=== PATIENT | male | born 1960 | race Caucasian/White ===

== ENCOUNTER → 2016-05-03 | Day surgery (SDC) | payer OTHER ==
[2016-04-30 10:04] VITALS: Ht 182.9 cm; Wt 180.0 kg
[~2016-05-03] VITALS: Ht 182.9 cm; Wt 180.0 kg
[~2016-05-03] MED LIST: ACET-1256 PO; ASPEC81 PO; ATOR-54 PO; DULO60CA44 PO; FERR1TAB13 PO; LACTCHW3 PO; LIDOCAINE HCL 2% 2 ML VIAL (20MG/ML) ONE; LVQ500 PO; METO25TA56 PO; MIDAZOLAM HCL 1 MG/ML 2ML VIAL ONE; MULT-506 PO; NITR1CAP32 PO; OMEP40CA41 PO; OXYC-106 PO; PROPOFOL IV EMULSION 10 MG/ML 20 ML VIAL IV ONE; SENN-61 PO; SODIUM CHLORIDE 0.9% 500ML 500 ML IV ONE; ZOLP5TAB PO
--- NOTE | 2016-05-03 15:39 | Endo History and Physical ---
History & Physical Date of Service: May 03, 2016. Chief Complaint: Beck's Referring Physician: Zenaida Flanagan PA-C History of Present Illness Beck esophagus Past Medical History Arthritis, Hypertension Past Surgical History Hx Cardiac Surgery: No Hx Internal Defibrillator: No Hx Pacemaker: No Hx Abdominal Surgery: Yes (ABDOMINAL SURGERY X2 ("TOOK SOME INTESTINES, STOMACH AND SPLEEN")) Hx of Implantable Prosthesis: No Hx Post-Op Nausea and Vomiting: No Hx Cancer Surgery: No Hx Thoracic Surgery: No Hx Orthopedic: Yes (OLSON'S RODS IN BACK, RT ARM FX REPAIR (HARDWARE)) Hx Urinary Tract Surgery: No Family History None Social History Smoking Status: Former Smoker Hx Substance Use: Yes (SEE MED REC) Hx Alcohol Use: Yes (RARELY) Allergies Coded Allergies: Cephalosporins (Verified Allergy, Intermediate, RASH, 04/30/16) Tolerated ceftriaxone during past admission Penicillins (Verified Allergy, Intermediate, RASH, 04/30/16) Ibuprofen (Verified Allergy, Unknown, CAUSED BI BLEED, 04/30/16) Current Medications Reported Home Medications Medications Dose Route/Sig Max Daily Dose Days Date Category Dose Instructions Percocet 10MG/325MG (Oxycodone/Acetaminophen) Tab 1 Tab PO Q6H PRN 04/30/16 Reported Prilosec (Omeprazole) 40 Mg Cap 40 Mg PO BID 04/30/16 Reported Senokot (Senna) 8.6 Mg Tab 1 Tab PO DIRECTED 04/30/16 Reported TAKES 2 PILLS ON ODD DAYS TAKES 3 PILLS ON EVEN DAYS Multivitamin (Multivitamins) Tab 1 Tab PO QAM 04/30/16 Reported Cymbalta (Duloxetine Hcl) 60 Mg Cap 60 Mg PO QAM 04/30/16 Reported Lopressor (Metoprolol Tartrate) 25 Mg Tab 12.5 Mg PO BID PRN 11/04/15 Reported IF SBP OVER 140 Lipitor (Atorvastatin) 20 Mg Tab 20 Mg PO HS 11/04/15 Reported Aspirin EC Low Dose (Aspirin) 81 Mg Ectab 81 Mg PO QAM 30 09/09/15 Rx Vital Signs Weight (Kilograms): 180 Height (Feet): 6 Height (Inches): 0 Date Time Temp Pulse Resp B/P Pulse Ox O2 Delivery O2 Flow Rate FiO2 05/03/16 14:26 37.2 85 20 147/90 98 Room Air Physical Exam AAO x3 Nl s`1s2 Lungs CTA Abd soft Nt/Nd + BS - CCE jorge alberto Assessment and Plan EGD with Bx
--- NOTE | 2016-05-03 16:18 | Anesthesiology Progress Note ---
Anesthesia Post Op Note Date & Time May 03, 2016 at 16:19 Vital Signs Pain Intensity: 6 Vital Signs Past 12 Hours Date Time Temp Pulse Resp B/P Pulse Ox O2 Delivery O2 Flow Rate FiO2 05/03/16 16:11 37.2 76 20 120/81 98 Room Air 05/03/16 14:26 37.2 85 20 147/90 98 Room Air Notes Mental Status: alert / awake / arousable, participated in evaluation Pt Amnestic to Procedure: Yes Nausea / Vomiting: adequately controlled Pain: adequately controlled Airway Patency, RR, SpO2: stable & adequate BP & HR: stable & adequate Hydration State: stable & adequate Anesthetic Complications: no major complications apparent
--- NOTE | 2016-05-03 16:21 | Discharge Instructions ---
Endoscopy Patient Instructions Date / Procedure(s) Performed May 03, 2016. EGD Allergy Information Coded Allergies: Cephalosporins (Verified Allergy, Intermediate, RASH, 04/30/16) Tolerated ceftriaxone during past admission Penicillins (Verified Allergy, Intermediate, RASH, 04/30/16) Ibuprofen (Verified Adverse Reaction, Intermediate, CAUSED BI BLEED, ) Discharge Date / Findings May 03, 2016. Beck's esophagus Medication Instructions Restart Stopped Medication(s): Reported Home Medications Medications Dose Route/Sig Max Daily Dose Days Date Category Dose Instructions Percocet 10MG/325MG (Oxycodone/Acetaminophen) Tab 1 Tab PO Q6H PRN 04/30/16 Reported Prilosec (Omeprazole) 40 Mg Cap 40 Mg PO BID 04/30/16 Reported Senokot (Senna) 8.6 Mg Tab 1 Tab PO DIRECTED 04/30/16 Reported TAKES 2 PILLS ON ODD DAYS TAKES 3 PILLS ON EVEN DAYS Multivitamin (Multivitamins) Tab 1 Tab PO QAM 04/30/16 Reported Cymbalta (Duloxetine Hcl) 60 Mg Cap 60 Mg PO QAM 04/30/16 Reported Lopressor (Metoprolol Tartrate) 25 Mg Tab 12.5 Mg PO BID PRN 11/04/15 Reported IF SBP OVER 140 Lipitor (Atorvastatin) 20 Mg Tab 20 Mg PO HS 11/04/15 Reported Aspirin EC Low Dose (Aspirin) 81 Mg Ectab 81 Mg PO QAM 30 09/09/15 Rx Reported Home Medications Medications Dose Route/Sig Max Daily Dose Days Date Category Dose Instructions Percocet 10MG/325MG (Oxycodone/Acetaminophen) Tab 1 Tab PO Q6H PRN 04/30/16 Reported Prilosec (Omeprazole) 40 Mg Cap 40 Mg PO BID 04/30/16 Reported Senokot (Senna) 8.6 Mg Tab 1 Tab PO DIRECTED 04/30/16 Reported TAKES 2 PILLS ON ODD DAYS TAKES 3 PILLS ON EVEN DAYS Multivitamin (Multivitamins) Tab 1 Tab PO QAM 04/30/16 Reported Cymbalta (Duloxetine Hcl) 60 Mg Cap 60 Mg PO QAM 04/30/16 Reported Lopressor (Metoprolol Tartrate) 25 Mg Tab 12.5 Mg PO BID PRN 11/04/15 Reported IF SBP OVER 140 Lipitor (Atorvastatin) 20 Mg Tab 20 Mg PO HS 11/04/15 Reported Aspirin EC Low Dose (Aspirin) 81 Mg Ectab 81 Mg PO QAM 30 09/09/15 Rx Provider Instructions Activity Restrictions - No exercising or heavy lifting for 24 hours. - Do not drink alcohol the day of the procedure. - Do not drive a car or operate machinery until the day after the procedure. - Do not make any important decisions or sign important papers in 24 hours after the procedure. Following Day: - Return to full activity which may include returning to work/school. Diet Start your diet with liquids and light foods (jello, soup, juice, toast). Then eat your usual diet if not nauseated. Treatment For Common After Affects For mild abdominal pain, bloating, or excessive gas: - Rest - Eat lightly - Lie on right side Follow-Up Information Follow-up with Zenaida Flanagan PA-C as scheduled Anesthesia Information What You Should Know You have had a procedure that required some medicine to reduce anxiety and discomfort. This treatment is called moderate sedation. After receiving the treatment, you may be sleepy, but you will be able to breathe on your own. The effects of the treatment may last for several hours. Follow these instructions along with Activity/Diet recommendations noted above: * Do NOT do anything where dizziness or clumsiness would be dangerous. * Rest quietly at home today, then you can be up and about tomorrow. * Have a responsible person stay with you the rest of today. * You may have had an I.V. today. If so, you may take the dressing off later today. Recommendations Call your doctor if: * Trouble breathing * Continuous vomiting for more than 24 hours * Temperature above 101 degrees * Severe abdominal pain or bloating * Pain not relieved by pain medicine ordered * There is increased drainage or redness from any incision * A large amount of rectal bleeding greater than 2-3 tablespoons. (If you had a polyp/s removed or have hemorrhoids, a small amount of blood - from the rectum is to be expected.) * You have any unanswered questions or concerns. IN THE EVENT OF A SERIOUS EMERGENCY, GO TO THE NEAREST EMERGENCY ROOM Your discharge instructions were prepared by provider Peter Castillo. Patient Instructions Signature Page Ulysses Guardado Patient (or Guardian) Signature/Date: I have read and understand the instructions given to me by my caregivers. Caregiver/RN/Doctor Signature/Date: The above-named patient and/or guardian has received patient instructions on this date. + Original Patient Signature Page (only) stays with chart. Please make copy for patient.
[2016-05-03 16:41] VITALS: BP 133/85; PULSE 68; O2SAT 94
--- NOTE | 2016-05-04 00:46 | GI REPORT ---
Procedure Date: 05/03/2016 3:21 PM Procedure: Upper GI endoscopy Indications: Beck's esophagus Medicines: Propofol per Anesthesia Complications: No immediate complications. Estimated blood loss: None. Estimated Blood Loss: Estimated blood loss: none. Procedure: Pre-Anesthesia Assessment: - Prior to the procedure, a History and Physical was performed, and patient medications and allergies were reviewed. The patient's tolerance of previous anesthesia was also reviewed. The risks and benefits of the procedure and the sedation options and risks were discussed with the patient. All questions were answered, and informed consent was obtained. Prior Anticoagulants: The patient has taken no previous anticoagulant or antiplatelet agents. ASA Grade Assessment: II - A patient with mild systemic disease. After reviewing the risks and benefits, the patient was deemed in satisfactory condition to undergo the procedure. After obtaining informed consent, the endoscope was passed under direct vision. Throughout the procedure, the patient's blood pressure, pulse, and oxygen saturations were monitored continuously. The scope was introduced through the mouth, and advanced to the second part of duodenum. The upper GI endoscopy was accomplished without difficulty. The patient tolerated the procedure well. Findings: LA Grade C (one or more mucosal breaks continuous between tops of 2 or more mucosal folds, less than 75% circumference) esophagitis with no bleeding was found 20 to 27 cm from the incisors. Biopsies were taken with a cold forceps for histology. Estimated blood loss was minimal. Verification of patient identification for the specimen was done by the physician and nutrition technician using the patient's name and medical record number. The esophagus and gastroesophageal junction were examined with white light. There were esophageal mucosal changes secondary to established long-segment Beck's disease. These changes involved the mucosa at the upper extent of the gastric folds (36 cm from the incisors) extending to the Z-line (28 cm from the incisors). Hiatal narrowing was identified at 40 cm. The maximum longitudinal extent of these esophageal mucosal changes was 8 cm in length. Mucosa was biopsied with a cold forceps for histology in 4 quadrants at intervals of 1 cm. Estimated blood loss was minimal. Verification of patient identification for the specimen was done by the physician and nutrition technician using the patient's name and medical record number. The entire examined stomach was normal. Evidence of a patent Billroth II gastrojejunostomy was found. The gastrojejunal anastomosis was characterized by healthy appearing mucosa. This was traversed. The examined jejunum was normal. The cardia and gastric fundus were normal on retroflexion. Impression: - LA Grade C reflux esophagitis. Biopsied. 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 Biopsied. - Normal stomach. - Patent Billroth II gastrojejunostomy was found, characterized by healthy appearing mucosa. - Normal examined jejunum. Recommendation: - Patient has a contact number available for emergencies. The signs and symptoms of potential delayed complications were discussed with the patient. Return to normal activities tomorrow. Written discharge instructions were provided to the patient. - Patient has a contact number available for emergencies. The signs and symptoms of potential delayed complications were discussed with the patient. Return to normal activities tomorrow. Written discharge instructions were provided to the patient. - Resume regular diet. - Continue present medications. - Await pathology results. - Repeat the upper endoscopy for surveillance based on pathology results. MD Peter Ford MD 05/03/2016 4:19:52 PM This report has been signed electronically. Note Initiated On: 05/03/2016 3:21 PM I attest to the content of the Intraoperative Record and orders documented therein, exceptions below
== END | disposition home or self-care (01) ==
LOC: C.GI 14:06
PROVIDERS: ATTEND Internal Medicine Gastroenterology
DX: K22.70 Barrett's esophagus without dysplasia (principal); K21.0 Gastro-esophageal reflux disease with esophagitis; I10 Essential (primary) hypertension; Z87.891 Personal history of nicotine dependence

== ENCOUNTER 2016-07-20 16:08 | Inpatient (IN) | payer OTHER ==
[~2016-07-20] VITALS: Ht 182.9 cm; Wt 71.2 kg
[~2016-07-20 16:08] MED LIST changes: -ACET-1256 PO; -FERR1TAB13 PO; -LACTCHW3 PO; -LIDOCAINE HCL 2% 2 ML VIAL (20MG/ML) ONE; -LVQ500 PO; -MIDAZOLAM HCL 1 MG/ML 2ML VIAL ONE; -NITR1CAP32 PO; -PROPOFOL IV EMULSION 10 MG/ML 20 ML VIAL IV ONE; -SODIUM CHLORIDE 0.9% 500ML 500 ML IV ONE; -ZOLP5TAB PO
[2016-07-20] MEDS ORDERED: SODIUM CHLORIDE 0.9% 1000ML 2,000 ML IV STA (16:34)
--- NOTE | 2016-07-20 16:34 | EMERGENCY ROOM VISIT NOTE ---
History Report prepared by Phoebe: Dorita Mcintyre Under the Supervision of: Dr. Taco Murphy M.D. First contact with patient: 16:27 Chief Complaint: WEAKNESS Stated Complaint: POSSIBLE SEPSIS Nursing Triage Summary: Patient was sent over from PCP. Per patient labs were drawn and platelet count was 1 million. Patient states, "I might be septic". Patient c/o generalized weakness. Denies CP, SOB, N/V/D. History of Present Illness The patient is a 56 year old male who presents to the Emergency Room with complaints of worsening weakness beginning today. The patient has been experiencing chronic weakness since last September but it has worsened today. He was at the [facility] clinic and had a platelet count of 1 million. He also has a urinary infection. He has a history of urinary infections and has been hospitalized before to be treated. He is concerned for sepsis. The patient is experiencing low blood pressure and lightheadedness when sitting up. He denies chest pain, shortness of breath, nausea, vomiting, diarrhea, or recent antibiotic use. The patient is a T7 paraplegic. Source of History: patient Onset: today Position: other (global) Quality: other (weakness) Timing: worsening Associated Symptoms: No SOB, No chest pain, No diarrhea, No nausea, No vomiting Review of Systems See HPI for pertinent positives & negatives. A total of 10 systems reviewed and were otherwise negative. Past Medical & Surgical Medical Problems: (1) Depression (2) Paraplegia following spinal cord injury (3) Sepsis Surgical Problems: (1) H/O splenectomy (2) H/O wisdom tooth extraction (3) History of appendectomy (4) History of cholecystectomy (5) History of partial colectomy (6) History of partial gastrectomy (7) History of skin surgery Family History Patient reports no known family medical history. Social History Smoking Status: Never Smoker Drug Use: marijuana Marital Status: Occupation Status: disabled Current/Historical Medications Scheduled Aspirin (Aspirin EC Low Dose), 81 MG PO QAM Atorvastatin (Lipitor), 20 MG PO HS Duloxetine Hcl (Cymbalta), 60 MG PO QAM Ferrous Sulfate (Kp Ferrous Sulfate), 1 TAB PO TID Multivitamin (Multivitamin), 1 TAB PO QAM Omeprazole (Prilosec), 40 MG PO BID Senna (Senokot), 1 TAB PO DIRECTED Zolpidem Tartrate (Ambien), 5-10 MG PO HS Scheduled PRN Oxycodone/Acetaminophen 10MG/325MG (Percocet 10MG/325MG), 1 TAB PO Q6H PRN for Pain Allergies Coded Allergies: Cephalosporins (Verified Allergy, Intermediate, RASH, 07/20/16) Tolerated ceftriaxone during past admission Penicillins (Verified Allergy, Intermediate, RASH, 07/20/16) Ibuprofen (Verified Adverse Reaction, Intermediate, CAUSED BI BLEED, ) Physical Exam Vital Signs Date Time Temp Pulse Resp B/P Pulse Ox O2 Delivery O2 Flow Rate FiO2 07/20/16 19:02 82 18 132/84 95 Room Air 07/20/16 16:09 36.3 87 16 87/61 95 Room Air Physical Exam GENERAL: Patient is well appearing, lightheaded with sitting up and in mild distress. HEENT: No acute trauma, normocephalic atraumatic, mucous membranes moist, no nasal congestion, no scleral icterus. NECK: No stridor, no adenopathy, no meningismus, trachea is midline. LUNGS: No dyspnea. Clear to auscultation and equal bilaterally. No wheeze, no rhonchi. HEART: Regular rate and rhythm. No murmurs, rubs, gallops appreciated. ABDOMEN: Soft, nontender, bowel sounds positive, no masses appreciated, no peritonitis. BACK: No midline tenderness, no CVA tenderness EXTREMITIES: Minimal leg waisting, both legs in boots, no cyanosis, no edema. NEUROLOGIC: Alert and oriented, no acute motor or sensory deficits, no focal weakness, cranial nerves grossly intact. No sensation from xiphoid down. SKIN: No rash, no jaundice, no diaphoresis. Medical Decision & Procedures ER Provider Diagnostic Interpretation: X ray results are stated below per my interpretation and the radiologist's interpretation. CHEST ONE VIEW PORTABLE CLINICAL HISTORY: fever cough COMPARISON STUDY: 09/07/2015 FINDINGS: Stable postoperative change including stabilization fausto placement of the thoracic spine. Lungs are clear. Diaphragms are smooth. There are no focal infiltrative changes. IMPRESSION: No acute process Electronically signed by: Ulysses Franklin M.D. 07/20/2016 4:54 PM Dictated Date/Time: 07/20/2016 4:53 PM Laboratory Results 07/20/16 17:15 Red Blood Count 4.09, Mean Corpuscular Volume 72.9, Mean Corpuscular Hemoglobin 21.5, Mean Corpuscular Hemoglobin Concent 29.5, Mean Platelet Volume 8.6, Neutrophils (%) (Auto) 75.9, Lymphocytes (%) (Auto) 15.9, Monocytes (%) (Auto) 6.8, Eosinophils (%) (Auto) 0.5, Basophils (%) (Auto) 0.6, Neutrophils # (Auto) 13.72, Lymphocytes # (Auto) 2.87, Monocytes # (Auto) 1.22, Eosinophils # (Auto) 0.09, Basophils # (Auto) 0.10 07/20/16 17:15 Test 07/20/16 17:09 07/20/16 17:15 07/20/16 18:40 Bedside Lactic Acid Venous 2.11 mmol/L (0.90-1.70) White Blood Count 18.05 K/uL (4.8-10.8) Red Blood Count 4.09 M/uL (4.7-6.1) Hemoglobin 8.8 g/dL (14.0-18.0) Hematocrit 29.8 % (42-52) Mean Corpuscular Volume 72.9 fL (80-100) Mean Corpuscular Hemoglobin 21.5 pg (25-34) Mean Corpuscular Hemoglobin Concent 29.5 g/dl (32-36) Platelet Count 1076 K/uL (130-400) Mean Platelet Volume 8.6 fL (7.4-10.4) Neutrophils (%) (Auto) 75.9 % Lymphocytes (%) (Auto) 15.9 % Monocytes (%) (Auto) 6.8 % Eosinophils (%) (Auto) 0.5 % Basophils (%) (Auto) 0.6 % Neutrophils # (Auto) 13.72 K/uL (1.4-6.5) Lymphocytes # (Auto) 2.87 K/uL (1.2-3.4) Monocytes # (Auto) 1.22 K/uL (0.11-0.59) Eosinophils # (Auto) 0.09 K/uL (0-0.5) Basophils # (Auto) 0.10 K/uL (0-0.2) RDW Standard Deviation 47.1 fL (36.4-46.3) RDW Coefficient of Variation 18.4 % (11.5-14.5) Immature Granulocyte % (Auto) 0.3 % Immature Granulocyte # (Auto) 0.05 K/uL (0.00-0.02) Nucleated RBC Absolute Count (auto) 0.07 K/uL (0-0) Nucleated Red Blood Cells % 0.4 % Polychromasia 1+ Target Cells 1+ Schistocytes 1+ Prothrombin Time 10.4 SECONDS (9.0-12.0) Prothromb Time International Ratio 1.0 (0.9-1.1) Anion Gap 11.0 mmol/L (3-11) Est Creatinine Clear Calc Drug Dose 91.9 ml/min Estimated GFR () 112.1 Estimated GFR (Non- 96.7 BUN/Creatinine Ratio 17.6 (10-20) Calcium Level 8.3 mg/dl (8.5-10.1) Magnesium Level 2.4 mg/dl (1.8-2.4) Total Bilirubin 0.2 mg/dl (0.2-1) Direct Bilirubin < 0.1 mg/dl (0-0.2) Aspartate Amino Transf (AST/SGOT) 11 U/L (15-37) Alanine Aminotransferase (ALT/SGPT) 13 U/L (12-78) Alkaline Phosphatase 124 U/L (45-117) Total Creatine Kinase 50 U/L (39-308) Creatine Kinase MB 0.9 ng/ml (0.5-3.6) Creatine Kinase MB Ratio 1.8 (0-3.0) Troponin I < 0.015 ng/ml (0-0.045) Total Protein 7.4 gm/dl (6.4-8.2) Albumin 2.9 gm/dl (3.4-5.0) Urine Color YELLOW Urine Appearance TURBID (CLEAR) Urine pH 8.0 (4.5-7.5) Urine Specific [place] 1.011 (1.000-1.030) Urine Protein 1+ (NEG) Urine Glucose (UA) NEG (NEG) Urine Ketones NEG (NEG) Urine Occult Blood 2+ (NEG) Urine Nitrite POS (NEG) Urine Bilirubin NEG (NEG) Urine Urobilinogen NEG (NEG) Urine Leukocyte Esterase LARGE (NEG) Urine WBC (Auto) >30 /hpf (0-5) Urine RBC (Auto) 5-10 /hpf (0-4) Urine Hyaline Casts (Auto) 10-30 /lpf (0-5) Urine Epithelial Cells (Auto) >30 /lpf (0-5) Urine Bacteria (Auto) 4+ (NEG) Urine Crystals AMORPHOUS SEDIMENT (NONE Urine Yeast (Auto) (NONE PRSENT) Laboratory results as reviewed by me. Medications Administered Medications (Trade) Dose Ordered Sig/Kinsey Route Start Time Stop Time Status Last Admin Dose Admin Sodium Chloride 2,000 ml @ 999 mls/hr Q2H1M STAT IV 07/20/16 16:34 07/20/16 18:34 DC 07/20/16 17:22 999 MLS/HR Aztreonam 2000 mg/ Dextrose 110 ml @ 100 mls/hr NOW STAT IV 07/20/16 16:47 07/20/16 17:52 DC 07/20/16 17:22 100 MLS/HR Daptomycin/Sodium Chloride (Cubicin IV/Nss 50ml) 58 ml @ 100 mls/hr NOW STAT IV 07/20/16 16:47 07/20/16 17:21 DC 07/20/16 17:22 100 MLS/HR ECG Indication: weakness Rate (beats per minute): 70 Rhythm: normal sinus Findings: ST depression (Lateral nonspecific), other (QTC 468) ED Course 1630: The patient was evaluated in room C6. A complete history and physical exam was performed. 1634: Sodium Chloride 2,000 ml @ 999 mls/hr IV. 1647: Daptomycin 400 mg/ Sodium Chloride 50 ml @ 100 mls/hr IV, Aztreonam 2,000 mg/ Dextrose 110 ml @ 100 mls/hr IV. 1652: I re-explained to nurse that patient needs sepsis work up immediately. She will go evaluate the patient. 1656: I discussed the treatment plan with the patient and he is comfortable with it. 1812: Discussed the patient's case with Dr. Leana RODRIGUEZ. The patient will be evaluated for further treatment and disposition. 1814: Upon reevaluation, the patient is hemodynamically stable. Discussed results and treatment plan with the patient. He verbalized understanding and agreement with the treatment plan. The patient will be evaluated for further management. Medical Decision Differential: Sepsis, Infectious (UTI/Pneumonia/Meningitis/etc), Metabolic/ Electrolyte Abnormality, Cardiac, Hepatic, Endocrine, Toxicologic, Neurologic, amongst other pathologies entertained. 56 yr old male arrives with complaint of fatigue. History of paraplegia, self cathing, hep c, asplenia. Notes labs outpatient with ecoli in urine. PCP office called in to note elevated wbc/plts. Patient arrives hypotensive and significant weakness on sitting up. Immediately required 2 IVs, blood cultures , lactic acid, and 30ml/kg fluids. Broad spectrum abx ordered. Patient feeling vastly improved with fluids. Labs consistent with sepsis. He is not in septic shock as responded quickly to IV fluids. He clearly will need to come in for further evaluation. Has chronic elevated plts which are further exacerbated by his sepsis. Consults Time Called: 1809 Consulting Physician: Dr. Leana GARCIA Returned Call: [phone] Discussed the patient's case. The patient will be evaluated for further treatment and disposition. Impression Primary Impression: Sepsis Additional Impressions: UTI (urinary tract infection) Hypotension Critical Care I have personally spent greater than 45 minutes of critical care time in the direct management of this patient. This was a life/limb threatening event. This includes time spent evaluating patient, direct bedside care, chart review, placing orders, interpretation of diagnostic studies, discussion with consultants, patient, and family members, as well as other required patient management activities. This 45 minutes is in excess of all separately billable procedures. Scribe Attestation The scribe's documentation has been prepared under my direction and personally reviewed by me in its entirety. I confirm that the note above accurately reflects all work, treatment, procedures, and medical decision making performed by me. Departure Information Dispostion Being Evaluated By Hospitalist Referrals Zenaida Flanagan PA-C (PCP) Problem Qualifiers
[2016-07-20] MEDS ORDERED: DAPTOmycin IV 400 MG in SODIUM CHLORIDE 0.9% 50ML 50 ML IV STA (16:47)
[2016-07-20] MEDS ORDERED: AZTREONAM IV 2,000 MG in DEXTROSE 5% 100ML 100 ML IV STA (16:47)
--- NOTE | 2016-07-20 16:55 | DIAGNOSTIC IMAGING REPORT ---
CHEST ONE VIEW PORTABLE CLINICAL HISTORY: fever cough COMPARISON STUDY: 09/07/2015 FINDINGS: Stable postoperative change including stabilization fausto placement of the thoracic spine. Lungs are clear. Diaphragms are smooth. There are no focal infiltrative changes. IMPRESSION: No acute process Electronically signed by: Ulysses Franklin M.D. 07/20/2016 4:54 PM Dictated Date/Time: 07/20/2016 4:53 PM
[2016-07-20 17:43] LABS: PROTHROMBIN TIME (PATIENT) 10.4 SECONDS (9.0-12.0)
[2016-07-20 17:50] LABS: ALT/SGPT 13 U/L (12-78); AST/SGOT 11 U/L (15-37); BLOOD UREA NITROGEN 15 mg/dl (7-18); BUN/CREATININE RATIO 17.6 (10-20); CALCIUM 8.3 mg/dl (8.5-10.1); CARBON DIOXIDE 24 mmol/L (21-32); CHLORIDE 102 mmol/L (98-107); CREATININE 0.88 mg/dl (0.60-1.40); GLUCOSE 81 mg/dl (70-99); MAGNESIUM 2.4 mg/dl (1.8-2.4); POTASSIUM 3.8 mmol/L (3.5-5.1); SODIUM 137 mmol/L (136-145)
[2016-07-20] MEDS ORDERED: ZOLP5TAB PO (17:50)
[2016-07-20] MEDS ORDERED: FERR1TAB13 PO (17:50)
[2016-07-20 17:51] LABS: BASO % 0.6 %; COMPLETE YES; EOS % 0.5 %; HEMATOCRIT 29.8 % (42-52); IG% 0.3 %; LYMPH % 15.9 %; LYMPH ABS # 2.87 K/uL (1.2-3.4); MEAN CELL VOLUME 72.9 fL (80-100); MEAN CORPUSCULAR HEMOGLOBIN 21.5 pg (25-34); MEAN CORPUSCULAR HGB CONC 29.5 g/dl (32-36); MEAN PLATELET VOLUME 8.6 fL (7.4-10.4); MONO % 6.8 %; NEUT % 75.9 %; PLATELET COUNT 1076 K/uL (130-400); POLYCHROMASIA 1+; RED BLOOD COUNT 4.09 M/uL (4.7-6.1); SCHISTOCYTES 1+; TARGET CELLS 1+; WHITE BLOOD COUNT 18.05 K/uL (4.8-10.8)
[2016-07-20 17:54] LABS: ALKALINE PHOSPHATASE 124 U/L (45-117); CKMB/CK RATIO 1.8 (0-3.0)
[2016-07-20 19:15] LABS: URINE APPEARANCE TURBID (CLEAR); URINE BILIRUBIN NEG (NEG); URINE COLOR YELLOW; URINE EPITHELIAL CELL AUTO >30 /lpf (0-5); URINE NITRITE POS (NEG); URINE SPECIFIC GRAVITY 1.011 (1.000-1.030); UROBILINOGEN NEG (NEG); ZZURINE CULT IF INDIC CATH YES
[2016-07-20] MEDS ORDERED: MAGNESIUM HYDROXIDE SUSP 30 ML UDC PO PRN (19:15)
[2016-07-20] MEDS ORDERED: POLYETHYLENE (MIRALAX) 17 GM PACK PO PRN (19:15)
[2016-07-20] MEDS ORDERED: ONDANSETRON INJ 2 MG/ML 2 ML VIAL IV PRN (19:15)
[2016-07-20] MEDS ORDERED: ALUMINUM/MAGNESIUM/SIMETH (MAALOX MAX) 30 ML UDC PO PRN (19:15)
[2016-07-20] MEDS ORDERED: AZTREONAM CONSULT ACTIVE PRN ×2 (19:30)
[2016-07-20] MEDS ORDERED: DAPTOMYCIN CONSULT ACTIVE PRN ×2 (19:30)
[2016-07-20 19:31] LABS: MANUAL MICROSCOPIC REQUIRED? NO; REVIEW REQ? YES
[2016-07-20 19:32] LABS: SULFASALICYLIC ACID POS (NEG)
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
[2016-07-20] MEDS ORDERED: SODIUM CHLORIDE 0.9% 1000ML 1,000 ML IV SCH (20:00)
[2016-07-20 20:11] VITALS: BP 151/89; PULSE 87; TEMP 37.1; O2SAT 98; Ht 182.9 cm; Wt 71.2 kg
[2016-07-20] MEDS: OXYCODONE/ACETAMINOPHEN 10/325MG TAB PO PRN (20:38)
[2016-07-20] MEDS: HEPARIN SOD 5000 UNIT/0.5 ML CARP SQ SCH (22:06)
[2016-07-20] MEDS: ZOLPIDEM TARTRATE 5 MG TAB PO SCH (22:08)
[2016-07-20] MEDS: PANTOprazole SOD 40 MG TAB PO SCH (22:08)
[2016-07-20] MEDS: ATORVASTATIN 20 MG TAB PO SCH (22:08)
[2016-07-20 23:40] VITALS: BP 124/69; PULSE 87; TEMP 37.3; O2SAT 95
[2016-07-21] VITALS (12 sets, daily range): BP systolic 106–189; BP diastolic 70–112; PULSE 73–84; TEMP 36.4–37.5; O2SAT 94–98
[2016-07-21] MEDS: AZTREONAM IV 2,000 MG in DEXTROSE 5% 100ML 100 ML IV SCH ×3 (01:42→17:21)
[2016-07-21] MEDS: OXYCODONE/ACETAMINOPHEN 10/325MG TAB PO PRN ×3 (01:48→19:20)
[2016-07-21] MEDS: ACETAMINOPHEN 325 MG TAB PO PRN ×2 (05:03→10:57)
[2016-07-21] MEDS: HEPARIN SOD 5000 UNIT/0.5 ML CARP SQ SCH ×3 (05:05→21:13)
[2016-07-21 06:54] LABS: HEMATOCRIT 25.9 % (42-52); MEAN CELL VOLUME 74.9 fL (80-100); MEAN CORPUSCULAR HEMOGLOBIN 21.7 pg (25-34); MEAN PLATELET VOLUME 8.7 fL (7.4-10.4); PLATELET COUNT 915 K/uL (130-400); RED BLOOD COUNT 3.46 M/uL (4.7-6.1); WHITE BLOOD COUNT 13.94 K/uL (4.8-10.8)
[2016-07-21 07:24] LABS: BUN/CREATININE RATIO 17.8 (10-20); CALCIUM 7.6 mg/dl (8.5-10.1); CREATININE 0.62 mg/dl (0.60-1.40); MAGNESIUM 2.4 mg/dl (1.8-2.4); POTASSIUM 3.7 mmol/L (3.5-5.1)
[2016-07-21] MEDS: MULTIVITAMIN TAB PO SCH (07:28)
[2016-07-21] MEDS: ASPIRIN 81 MG ECTAB PO SCH (07:28)
[2016-07-21] MEDS: FERROUS SULFATE 325 MG TAB PO SCH ×3 (07:28→16:17)
[2016-07-21] MEDS: PANTOprazole SOD 40 MG TAB PO SCH ×2 (07:28→21:16)
[2016-07-21] MEDS: DULOXETINE HCL 60 MG CAP PO SCH (07:28)
[2016-07-21] MEDS: SENNA 8.6 MG TAB PO SCH (07:28)
[2016-07-21] MEDS ORDERED: PNEUMOCOCCAL POLYSACCHARIDES 25 MCG/0.5 ML VIAL/SYR IM. ONE (08:00)
[2016-07-21] MEDS ORDERED: PNEUMOCOCCAL ADMINISTRATION CHARGE ONE (08:00)
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
[2016-07-21 15:25] LABS: FERRITIN 40.4 ng/ml (8.0-388.0)
[2016-07-21] MEDS ORDERED: DAPTOmycin IV 400 MG in SODIUM CHLORIDE 0.9% 50ML 50 ML IV SCH (16:00)
--- NOTE | 2016-07-21 20:59 | Medical Consult ---
Consultation Date of Consultation: July 21, 2016. Attending Physician: Nilo Dueñas MD Reason for Consultation: Restricted antibiotic use History of Present Illness 56-year-old male with paraplegia, aplenia, with chronic use of condom catheter with history of urinary tract infections, presented to his primary care physician with several days of weakness and fatigue along with Dysuria, and was felt to have a urinary tract infection was sent to the emergency room for further management. He was found to be hypotensive with leukocytosis and elevated lactic acid consistent with early sepsis. He was started on daptomycin and aztreonam because of penicillin allergy, and now urine cultures growing gram-negative bacilli. Blood cultures have been negative to date. white count has improved since admission from 98677+ to 13,000+. he denies any significant flank pain or abdominal pain. Past Medical/Surgical History Medical Problems: (1) Acute kidney injury Status: Acute (2) Hypotension Status: Acute (3) Leukocytosis Status: Acute (4) Sepsis Status: Acute (5) Urinary tract infection Status: Acute (6) UTI (urinary tract infection) Status: Acute Medical Problems: (1) Depression (2) Paraplegia following spinal cord injury (3) Sepsis Surgical Problems: (1) H/O splenectomy (2) H/O wisdom tooth extraction (3) History of appendectomy (4) History of cholecystectomy (5) History of partial colectomy (6) History of partial gastrectomy (7) History of skin surgery Family History Patient reports no known family medical history. Social History Smoking Status: Former Smoker Drug Use: marijuana Marital Status: Occupation Status: disabled Allergies Coded Allergies: Cephalosporins (Verified Allergy, Intermediate, RASH, 07/20/16) Tolerated ceftriaxone during past admission Penicillins (Verified Allergy, Intermediate, RASH, 07/20/16) Ibuprofen (Verified Adverse Reaction, Intermediate, CAUSED BI BLEED, ) Current Inpatient Medications Current Inpatient Medications Medications (Trade) Dose Ordered Sig/Kinsey Route Start Time Stop Time Status Last Admin Dose Admin Daptomycin 400 mg/ Sodium Chloride 58 ml @ 100 mls/hr DAILY@1600 IV 07/21/16 16:00 07/31/16 15:59 07/21/16 16:17 100 MLS/HR Aztreonam/Dextrose (Azactam IV/D5 100ml) 110 ml @ 100 mls/hr Q8H IV 07/21/16 02:00 07/31/16 01:59 07/21/16 17:21 100 MLS/HR Aspirin (Ecotrin Tab) 81 mg QAM PO 07/21/16 09:00 08/20/16 08:59 07/21/16 07:28 81 MG Atorvastatin Calcium (Lipitor Tab) 20 mg HS PO 07/20/16 21:00 08/19/16 20:59 07/20/16 22:08 20 MG Duloxetine HCl (Cymbalta Cap) 60 mg QAM PO 07/21/16 09:00 08/20/16 08:59 07/21/16 07:28 60 MG Multivitamins (Multivitamin Tab) 1 tab QAM PO 07/21/16 09:00 08/20/16 08:59 07/21/16 07:28 1 TAB Oxycodone/ Acetaminophen (Percocet 10-325MG Tab) 1 tab Q6H PRN PO 07/20/16 19:15 08/03/16 19:14 07/21/16 19:20 1 TAB Senna (Senokot Tab) 8.6 mg DAILY PO 07/21/16 09:00 08/20/16 08:59 07/21/16 07:28 8.6 MG Zolpidem Tartrate (Ambien Tab) 5 mg HS PO 07/20/16 21:00 08/19/16 20:59 07/20/16 22:08 5 MG Ferrous Sulfate (Feosol Tab) 325 mg TIDM PO 07/21/16 07:30 08/20/16 07:59 07/21/16 16:17 325 MG Pantoprazole Sodium (Protonix Tab) 40 mg BID PO 07/20/16 21:00 08/19/16 20:59 07/21/16 07:28 40 MG Heparin Sodium (Porcine) (Heparin Sq 5000 Unit/0.5ml) 5,000 unit Q8 SQ 07/20/16 22:00 08/19/16 21:59 07/21/16 13:49 5,000 UNIT Acetaminophen (Tylenol Tab) 650 mg Q4H PRN PO 07/20/16 19:15 08/19/16 19:14 07/21/16 10:57 650 MG Al Hydrox/Mg Hydrox/Simethicone (Maalox Max Susp) 15 ml Q4H PRN PO 07/20/16 19:15 08/19/16 19:14 Magnesium Hydroxide (Milk Of Magnesia Susp) 30 ml Q12H PRN PO 07/20/16 19:15 08/19/16 19:14 Ondansetron HCl (Zofran Inj) 4 mg Q6H PRN IV 07/20/16 19:15 08/19/16 19:14 Polyethylene (Miralax Powder Packet) 17 gm DAILY PRN PO 07/20/16 19:15 08/19/16 19:14 Daptomycin (Consult) 1 ea UD PRN N/A 07/20/16 19:30 08/19/16 19:29 Aztreonam (Consult) 1 ea UD PRN N/A 07/20/16 19:30 08/19/16 19:29 Review of Systems Constitutional: + fatigue, + weakness, No fever Eyes: No problem reported ENT: No problem reported Respiratory: No problem reported Cardiovascular: No problem reported Abdomen: No problem reported Musculoskeletal: No problem reported Genitourinary - Male: + dysuria Neurologic: No problem reported Psychiatric: No problem reported Endocrine: No problem reported Hematologic / Lymphatic: No problem reported Integumentary: No problem reported Allergic / Immunologic: No problem reported Physical Exam Date Time Temp Pulse Resp B/P Pulse Ox O2 Delivery O2 Flow Rate FiO2 07/21/16 20:04 Room Air 07/21/16 19:11 37.5 82 18 147/88 95 Room Air 07/21/16 17:20 160/92 07/21/16 16:40 189/100 07/21/16 16:39 172/112 07/21/16 16:01 36.8 79 16 130/91 94 Room Air 07/21/16 16:00 98 Room Air 07/21/16 12:00 96 Room Air 07/21/16 11:40 36.4 78 18 121/81 95 Room Air 07/21/16 08:00 96 Room Air 07/21/16 07:52 36.4 73 18 113/70 96 Room Air 07/21/16 04:31 36.7 84 22 106/81 97 Room Air 07/21/16 04:00 Room Air 07/21/16 00:01 Room Air 07/20/16 23:40 37.3 87 22 124/69 95 Room Air General Appearance: WD/WN, no apparent distress Head: normocephalic, atraumatic Eyes: normal inspection, EOMI, sclerae normal ENT: normal ENT inspection, pharynx normal Neck: supple, no adenopathy, thyroid normal, trachea midline Respiratory/Chest: chest non-tender, lungs clear, normal breath sounds, no respiratory distress Cardiovascular: regular rate, rhythm, no gallop, no murmur Abdomen/GI: normal bowel sounds, non tender, soft, no organomegaly Genitourinary - Male: + pertinent finding ( Condom catheter) Back: normal inspection, no CVA tenderness Extremities/Musculoskelatal: no calf tenderness, non-tender Neurologic/Psych: alert, oriented x 3, + pertinent finding ( paraplegic) Skin: normal color, warm/dry, no rash Lymphatic: no adenopathy Laboratory Results RUN DATE: 07/21/16 [facility] LAB PAGE 1 RUN TIME: 1259 Specimen Inquiry PATIENT: JANICE BARILLAS LOC: [facility] # : [id number] AGE/SX: 56/M ROOM: 06 REG : 07/20/[address]: Nilo Dueñas MD : 1960 BED: 1 DIS : STATUS: ADM IN TLOC: SPEC #: [id number] FAHAD: 07/20/16 STATUS: RES REQ #: [id number] RECD: 07/20/[address] [facility] [address]: Taco Murphy M.D. SOURCE: URINE CATH ENTR: 07/20/16 [facility] DR: Zenaida Flanagan PA-C SPDESC: Nilo Dueñas MD ORDERED: CULTURE UR CATH Procedure Result Verified Site URINE CULTURE Preliminary 07/21/16 Organism 1 GRAM NEGATIVE BACILLI COLONY COUNT >100,000 CFU/ml SENS SENSITIVITY TO FOLLOW Organism 2 GRAM NEGATIVE BACILLI#2 COLONY COUNT >100,000 CFU/ml SENS SENSITIVITY TO FOLLOW Last 24 Hours Test 07/21/16 00:55 07/21/16 06:06 07/21/16 14:45 07/21/16 14:48 Lactic Acid Level 0.9 mmol/L White Blood Count 13.94 K/uL Red Blood Count 3.46 M/uL Hemoglobin 7.5 g/dL Hematocrit 25.9 % Mean Corpuscular Volume 74.9 fL Mean Corpuscular Hemoglobin 21.7 pg Mean Corpuscular Hemoglobin Concent 29.0 g/dl RDW Standard Deviation 48.9 fL RDW Coefficient of Variation 19.0 % Platelet Count 915 K/uL Mean Platelet Volume 8.7 fL Nucleated RBC Absolute Count (auto) 0.02 K/uL Nucleated Red Blood Cells % 0.1 % Sodium Level 142 mmol/L Potassium Level 3.7 mmol/L Chloride Level 111 mmol/L Carbon Dioxide Level 24 mmol/L Anion Gap 7.0 mmol/L Blood Urea Nitrogen 11 mg/dl Creatinine 0.62 mg/dl Est Creatinine Clear Calc Drug Dose 141.1 ml/min Estimated GFR () 129.4 Estimated GFR (Non- 111.7 BUN/Creatinine Ratio 17.8 Random Glucose 92 mg/dl Calcium Level 7.6 mg/dl Magnesium Level 2.4 mg/dl Vitamin B12 Level 808 pg/mL Folate 21.36 ng/mL Absolute Reticulocyte Count 0.12 10^6/uL Percent Reticulocyte Count 3.2 % Iron Level 48 mcg/dl Total Iron Binding Capacity 305 mcg/dl Transferrin 232 mg/dl Transferrin % Saturation 15 % Ferritin 40.4 ng/ml Test 07/21/16 20:02 Hemoglobin 8.1 g/dL Patient Name: JANICE BARILLAS Unit Number: [id number] Dictated: 07/20/161652 Transcribed: 07/20/161652 MS Printed Date/Time: [~ rep prt dt]/[~ rep prt tm] [~ rep ct labl] - [~ rep ct ivnm] [facility] [place] [address] Dictated: 07/20/161652 Transcribed: 07/20/161652 MS Printed Date/Time: [~ rep prt dt]/[~ rep prt tm] [~ rep ct labl] - [~ rep ct ivnm] [~ rep ct add3]] CHEST ONE VIEW PORTABLE CLINICAL HISTORY: fever cough COMPARISON STUDY: 09/07/2015 FINDINGS: Stable postoperative change including stabilization fausto placement of the thoracic spine. Lungs are clear. Diaphragms are smooth. There are no focal infiltrative changes. IMPRESSION: No acute process Electronically signed by: Janice Franklin M.D. 07/20/2016 4:54 PM Dictated Date/Time: 07/20/2016 4:53 PM The status of this report is Signed. Draft = Not yet reviewed or approved by Radiologist. Signed = Reviewed and approved by Radiologist. <AttendingPhy></AttendingPhy> <FamilyPhy>Zenaida Flanagan PA-C</FamilyPhy > <PrimaryPhy>Zenaida Flanagan PA-C</PrimaryPhy> <UnitNumber>[id number]</ UnitNumber> <VisitNumber>[id number]</VisitNumber> <PatientName>JANICE BARILLAS< /PatientName> <DateOfBirth>1960</DateOfBirth> <Location>C.EDC</Location> < ServiceDate>07/20/16</ServiceDate> <MNE>ESINDI</MNE> <OrderingPhy>Taco Murphy M.D.</OrderingPhy> <OrderingPhyMNE>f rep ord dr vazquez</OrderingPhyMNE> < DictatingPhyMNE>f rep dict dr vazquez</DictatingPhyMNE> <CCListMNE>f rep ct mne</ CCListMNE> <AdmittingPhyMNE>f pt admit dr vazquez</AdmittingPhyMNE> <AttendingPhyMNE >f pt attend dr vazquez</AttendingPhyMNE> <ConsultingPhyMNE>f pt consult dr vazquez</ConsultingPhyMNE> <FamilyPhyMNE>f pt fam dr vazquez</FamilyPhyMNE> <OtherPhyMNE>f pt other dr vazquez</OtherPhyMNE> < PrimaryPhyMNE>f pt prim care dr vazquez</PrimaryPhyMNE> <ReferringPhyMNE>f pt referring dr vazquez</ReferringPhyMNE> Assessment & Plan 56-year-old paraplegic male with what appears to be a gram-negative urinary tract infection. Given penicillin allergy, aztreonam appropriate pending final sensitivities. Likely daptomycin can be discontinued in the next 24-48 hours if cultures show no gram positive organisms. Will follow.
[2016-07-21] MEDS: ATORVASTATIN 20 MG TAB PO SCH (21:16)
[2016-07-21] MEDS: ZOLPIDEM TARTRATE 5 MG TAB PO SCH (21:16)
[2016-07-22] MEDS: AZTREONAM IV 2,000 MG in DEXTROSE 5% 100ML 100 ML IV SCH ×3 (02:06→18:12)
[2016-07-22 04:03] VITALS: BP 133/91; PULSE 87; TEMP 36.9; O2SAT 97
[2016-07-22] MEDS: HEPARIN SOD 5000 UNIT/0.5 ML CARP SQ SCH ×3 (06:07→21:21)
[2016-07-22 07:46] LABS: HEMATOCRIT 30.4 % (42-52); MEAN CELL VOLUME 74.7 fL (80-100); MEAN CORPUSCULAR HEMOGLOBIN 21.4 pg (25-34); MEAN CORPUSCULAR HGB CONC 28.6 g/dl (32-36); MEAN PLATELET VOLUME 8.6 fL (7.4-10.4); PLATELET COUNT 1004 K/uL (130-400); RED BLOOD COUNT 4.07 M/uL (4.7-6.1); WHITE BLOOD COUNT 11.71 K/uL (4.8-10.8)
[2016-07-22 08:06] LABS: BUN/CREATININE RATIO 17.2 (10-20); CALCIUM 8.4 mg/dl (8.5-10.1); CREATININE 0.53 mg/dl (0.60-1.40); MAGNESIUM 2.5 mg/dl (1.8-2.4); POTASSIUM 3.7 mmol/L (3.5-5.1)
[2016-07-22 08:08] LABS: ALB/GLOB RATIO 0.6 (0.9-2); BASO ABS # 0.23 K/uL (0-0.2); COMPLETE YES; HYPOCHROMIA PRESENT; IG% 0.3 %; LYMPH % 20.7 %; LYMPH ABS # 2.42 K/uL (1.2-3.4); MICROCYTOSIS PRESENT; MONO % 10.4 %; NEUT % 64.6 %; PHOSPHORUS 2.4 mg/dl (2.5-4.9); PLT ESTIMATE INCREASED; POLYCHROMASIA 1+; TARGET CELLS 1+
[2016-07-22 08:09] VITALS: BP 143/98; PULSE 91; TEMP 36.4; O2SAT 97
[2016-07-22] MEDS: MULTIVITAMIN TAB PO SCH (09:00)
[2016-07-22] MEDS: DULOXETINE HCL 60 MG CAP PO SCH (09:00)
[2016-07-22] MEDS: PANTOprazole SOD 40 MG TAB PO SCH ×2 (09:01→21:16)
[2016-07-22] MEDS: SENNA 8.6 MG TAB PO SCH (09:01)
[2016-07-22] MEDS: ASPIRIN 81 MG ECTAB PO SCH (09:01)
[2016-07-22] MEDS: FERROUS SULFATE 325 MG TAB PO SCH ×3 (09:01→18:13)
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
[2016-07-22 12:24] VITALS: BP 139/91; PULSE 91; TEMP 37; O2SAT 97
[2016-07-22] MEDS: OXYCODONE/ACETAMINOPHEN 10/325MG TAB PO PRN ×2 (12:33→21:16)
[2016-07-22] MEDS: LACTOBACILLUS ACIDOPHILUS 1 GM PACK PO SCH ×2 (12:33→18:13)
[2016-07-22 13:46] VITALS: BP 139/91; PULSE 91; TEMP 37; O2SAT 97
[2016-07-22 14:21] VITALS: BP 128/90; PULSE 101; TEMP 36.7; O2SAT 96
[2016-07-22 15:25] VITALS: BP 125/83; PULSE 92; TEMP 36.8; O2SAT 92
[2016-07-22] MEDS ORDERED: BISACODYL 10 MG SUPP PR PRN (16:30)
[2016-07-22] MEDS: ZOLPIDEM TARTRATE 5 MG TAB PO SCH (21:15)
[2016-07-22] MEDS: ATORVASTATIN 20 MG TAB PO SCH (21:16)
[2016-07-23 00:23] VITALS: BP 151/99; PULSE 83; TEMP 36.9; O2SAT 95
[2016-07-23] MEDS: AZTREONAM IV 2,000 MG in DEXTROSE 5% 100ML 100 ML IV SCH (02:19)
[2016-07-23] MEDS: HEPARIN SOD 5000 UNIT/0.5 ML CARP SQ SCH ×3 (05:43→21:05)
[2016-07-23 06:12] LABS: BASO % 1.4 %; BASO ABS # 0.19 K/uL (0-0.2); EOS % 2.5 %; IG% 0.3 %; LYMPH % 26.1 %; LYMPH ABS # 3.51 K/uL (1.2-3.4); MEAN CELL VOLUME 75.6 fL (80-100); MEAN CORPUSCULAR HEMOGLOBIN 22.7 pg (25-34); MEAN PLATELET VOLUME 8.5 fL (7.4-10.4); NEUT % 59.7 %; PLATELET COUNT 861 K/uL (130-400); RED BLOOD COUNT 3.97 M/uL (4.7-6.1); WHITE BLOOD COUNT 13.46 K/uL (4.8-10.8)
[2016-07-23 06:44] LABS: BUN/CREATININE RATIO 14.8 (10-20); CALCIUM 8.5 mg/dl (8.5-10.1); CREATININE 0.65 mg/dl (0.60-1.40); MAGNESIUM 2.3 mg/dl (1.8-2.4); POTASSIUM 3.7 mmol/L (3.5-5.1)
[2016-07-23 06:47] LABS: ALB/GLOB RATIO 0.6 (0.9-2); PHOSPHORUS 2.9 mg/dl (2.5-4.9)
[2016-07-23 07:07] LABS: ANISOCYTOSIS PRESENT; COMPLETE YES; HYPOCHROMIA PRESENT; POLYCHROMASIA 1+
[2016-07-23 07:46] VITALS: BP_SYST 153; BP_SYST 173; BP_DIAS 101; BP_DIAS 90; PULSE 69; TEMP 36.8; O2SAT 97
[2016-07-23] MEDS: MULTIVITAMIN TAB PO SCH (08:13)
[2016-07-23] MEDS: PANTOprazole SOD 40 MG TAB PO SCH ×2 (08:13→21:01)
[2016-07-23] MEDS: DULOXETINE HCL 60 MG CAP PO SCH (08:13)
[2016-07-23] MEDS: LACTOBACILLUS ACIDOPHILUS 1 GM PACK PO SCH ×3 (08:13→16:40)
[2016-07-23] MEDS: FERROUS SULFATE 325 MG TAB PO SCH ×3 (08:13→16:40)
[2016-07-23] MEDS: ASPIRIN 81 MG ECTAB PO SCH (08:13)
[2016-07-23] MEDS: SENNA 8.6 MG TAB PO SCH (08:13)
[2016-07-23] MEDS: ASCORBIC ACID 500 MG TAB PO SCH (08:14)
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
[2016-07-23] MEDS: LEVOFLOXACIN 500 MG TAB PO SCH (11:16)
[2016-07-23] MEDS: OXYCODONE/ACETAMINOPHEN 10/325MG TAB PO PRN ×2 (11:17→23:42)
[2016-07-23 15:42] VITALS: BP 147/95; PULSE 91; TEMP 36.8; O2SAT 97
[2016-07-23] MEDS: ACETAMINOPHEN 325 MG TAB PO PRN (16:41)
[2016-07-23] MEDS: ZOLPIDEM TARTRATE 5 MG TAB PO SCH (21:00)
[2016-07-23] MEDS: ATORVASTATIN 20 MG TAB PO SCH (21:01)
[2016-07-24 00:21] VITALS: BP 139/91; PULSE 82; TEMP 36.7; O2SAT 95
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
[2016-07-24] MEDS: HEPARIN SOD 5000 UNIT/0.5 ML CARP SQ SCH (05:44)
[2016-07-24 07:34] LABS: CREATININE 0.54 mg/dl (0.60-1.40)
[2016-07-24 07:38] LABS: HEMATOCRIT 29.6 % (42-52); MEAN CELL VOLUME 75.7 fL (80-100); MEAN CORPUSCULAR HEMOGLOBIN 21.2 pg (25-34); MEAN PLATELET VOLUME 8.3 fL (7.4-10.4); PLATELET COUNT 777 K/uL (130-400); RED BLOOD COUNT 3.91 M/uL (4.7-6.1); WHITE BLOOD COUNT 12.23 K/uL (4.8-10.8)
[2016-07-24 08:07] LABS: BASO % 2.2 %; BASO ABS # 0.27 K/uL (0-0.2); COMPLETE YES; EOS % 4.1 %; IG% 0.2 %; LYMPH % 38.3 %; LYMPH ABS # 4.69 K/uL (1.2-3.4); MONO % 10.4 %; NEUT % 44.8 %
[2016-07-24 08:08] VITALS: BP 127/86; PULSE 79; TEMP 36.5; O2SAT 97
[2016-07-24 08:08] LABS: ANISOCYTOSIS PRESENT; GIANT PLATELETS 1+; LARGE PLATELETS 2+; POLYCHROMASIA 1+; TARGET CELLS 1+
[2016-07-24] MEDS: FERROUS SULFATE 325 MG TAB PO SCH (08:14)
[2016-07-24] MEDS: SENNA 8.6 MG TAB PO SCH (08:14)
[2016-07-24] MEDS: ASCORBIC ACID 500 MG TAB PO SCH (08:14)
[2016-07-24] MEDS: LEVOFLOXACIN 500 MG TAB PO SCH (08:14)
[2016-07-24] MEDS: PANTOprazole SOD 40 MG TAB PO SCH (08:14)
[2016-07-24] MEDS: DULOXETINE HCL 60 MG CAP PO SCH (08:14)
[2016-07-24] MEDS: ASPIRIN 81 MG ECTAB PO SCH (08:14)
[2016-07-24] MEDS: LACTOBACILLUS ACIDOPHILUS 1 GM PACK PO SCH (08:14)
[2016-07-24] MEDS: MULTIVITAMIN TAB PO SCH (08:14)
[2016-07-24] MEDS: OXYCODONE/ACETAMINOPHEN 10/325MG TAB PO PRN (08:15)
[2016-07-24] MEDS ORDERED: LACTCHW3 PO (10:26)
[2016-07-24] MEDS ORDERED: LVQ500 PO (10:26)
--- NOTE | 2016-07-24 10:33 | Discharge Instructions ---
Discharge Instructions Date of Service July 24, 2016. Admission Reason for Admission: Sepsis due to Urinary tract infection Discharge Discharge Diagnosis / Problem: sepsis due to UTI - resolved Discharge Goals Goal(s): Improve disease control, Learn about illness, Diagnostic testing, Therapeutic intervention Activity Recommendations Activity Limitations: resume your previous activity . Instructions / Follow-Up Instructions / Follow-Up From Dr. Ho - 1. Urinary tract infection - * please complete 5 more days of oral levofloxacin starting TOMORROW on 07/25/16. * to prevent diarrhea from the antibiotics please take 1 week of lactinex ( probiotics) * both prescriptions called to [facility] in [place] 2. Iron deficiency anemia - * please continue on your iron supplement three times a day as previous * it helps to take each iron supplement with a glass of orange juice as this will help absorb the iron * note that the iron will turn your stool dark and make your constipation worse * when you go for your EGD soon ask the GI doctor to consider a biopsy of the small intestine to exclude celiac disease as this can cause chronic iron deficiency 3. Return to [facility] with any fever over 100.5 degrees, worsening pain, worsening appearance or odor to the urine, difficulty breathing, diarrhea, etc. 4. See your family doctor within 1 week. At that visit recommend you have a CBC to ensure your hemoglobin and platelets are stable. Current Hospital Diet Patient's current hospital diet: Regular Diet Discharge Diet Recommended Diet: Regular Diet Pending Studies Studies pending at discharge: no Medical Emergencies . Who to Call and When: Medical Emergencies: If at any time you feel your situation is an emergency, please call 911 immediately. . Non-Emergent Contact Non-Emergency issues call your: Primary Care Provider Call Non-Emergent contact if: temperature is above 100.5, your pain is concerning you, you have any medication questions . . "Provider Documentation" section prepared by Randell Ho. . VTE Core Measure Inpt VTE Proph given/why not?: Unfractionated heparin SQ
[2016-07-24 10:38] VITALS: BP 127/86; PULSE 79; TEMP 36.5; O2SAT 97
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
[2016-09-13] MEDS ORDERED: NITR1CAP32 PO (14:14)
== END 2016-07-24 11:58 | disposition home or self-care (01) | DRG 872 ==
LOC: ENRESERVDT → ENRESERVTM → C.EDB 16:09 → C.2E 19:12 → EDBEDREQ 19:19 → C.4E 07-22 13:52
PROVIDERS: ADMIT Internal Medicine; ATTEND Internal Medicine
DX: A41.9 Sepsis, unspecified organism (principal); N39.0 Urinary tract infection, site not specified; G82.20 Paraplegia, unspecified; D50.9 Iron deficiency anemia, unspecified; B18.2 Chronic viral hepatitis C; D47.3 Essential (hemorrhagic) thrombocythemia; B96.4 Proteus (mirabilis) (morganii) as the cause of diseases classified elsewhere; B96.5 Pseudomonas (aeruginosa) (mallei) (pseudomallei) as the cause of diseases classified elsewhere; B96.89 Other specified bacterial agents as the cause of diseases classified elsewhere; N31.9 Neuromuscular dysfunction of bladder, unspecified; R33.8 Other retention of urine; D63.8 Anemia in other chronic diseases classified elsewhere; F32.9 Major depressive disorder, single episode, unspecified; K22.70 Barrett's esophagus without dysplasia; Z90.81 Acquired absence of spleen; Z87.898 Personal history of other specified conditions; Z87.19 Personal history of other diseases of the digestive system; Z90.49 Acquired absence of other specified parts of digestive tract; Z90.3 Acquired absence of stomach [part of]; Z87.891 Personal history of nicotine dependence; Z79.82 Long term (current) use of aspirin; Z79.899 Other long term (current) drug therapy; Z79.891 Long term (current) use of opiate analgesic

== ENCOUNTER → 2016-08-07 | Outpatient (CLI) | payer OTHER ==
[~2016-08-07] MED LIST changes: +ACET-1256 PO; +FERR1TAB13 PO; +LACTCHW3 PO; +LVQ500 PO; +NITR1CAP32 PO; +ZOLP5TAB PO
== END | disposition home or self-care (01) ==
LOC: C.LABSPEC 15:05
PROVIDERS: ATTEND Physician Assistant
DX: R07.9 Chest pain, unspecified (principal); R11.2 Nausea with vomiting, unspecified

== ENCOUNTER → 2016-08-09 | Outpatient (CLI) | payer OTHER ==
--- NOTE | 2016-08-14 11:33 | CODING QUERY MEDICAL NECESSITY ---
CQSUPPORTING DIAGNOSIS NEEDED A supporting diagnosis is required for the test/procedure performed on this patient in order for us to be reimbursed by the patient's insurance. Please provide a supporting diagnosis for the following test/procedure listed below next to the test name along with your signature. *If there is no additional diagnosis for this patient that would support the following test/procedure please document that below next to the test/procedure. Test(s)/Procedure(s) that require a supporting diagnosis: DOS 08/09/16 [facility] Provider Signature: Date: Thank you Leeanna Deng [employer] Once completed, please kindly fax back to [phone] For questions please call [phone]
[2016-08-14 13:05] LABS: LUPUS ANTICOAGULANT** TC36573X Negative (Negative); PROTEIN C ACTIVITY** TC 1777X >200 % (70-180); PROTEIN S FREE 98 % normal (57-171); PROTEIN S TOTAL 108 % (70-140)
== END | disposition home or self-care (01) ==
LOC: C.LAB 12:58
PROVIDERS: ATTEND Psychiatry & Neurology Neurology
DX: I63.9 Cerebral infarction, unspecified (principal)

== ENCOUNTER 2016-08-24 18:42 | Emergency (ER) | payer OTHER ==
[~2016-08-24] VITALS: Ht 182.9 cm; Wt 69.0 kg
[~2016-08-24 18:42] MED LIST changes: -ACET-1256 PO; -METO25TA56 PO; -NITR1CAP32 PO
[2016-08-24 19:02] VITALS: TEMP 37.2; Ht 182.9 cm; Wt 69.0 kg
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
[2016-08-24] MEDS ORDERED: ACET-1256 PO (20:27)
[2016-08-24] MEDS ORDERED: METO25TA56 PO (20:27)
[2016-08-24 20:40] VITALS: BP 104/68; PULSE 98; O2SAT 96
--- NOTE | 2016-08-24 20:51 | EMERGENCY ROOM VISIT NOTE ---
ED Visit Note First contact with patient: 19:08 I have personally seen and evaluated the patient with the physician retail store assistant. I agree with the diagnostic/management decisions and have personally been involved in these decisions and agree with the diagnosis.
[2016-09-13] MEDS ORDERED: NITR1CAP32 PO (14:14)
== END 2016-08-24 20:41 | disposition home or self-care (01) ==
LOC: C.EDB 18:44 → C.EDC 20:41
DX: S31.31XA Laceration without foreign body of scrotum and testes, initial encounter (principal); X58.XXXA Exposure to other specified factors, initial encounter; G82.20 Paraplegia, unspecified; F32.9 Major depressive disorder, single episode, unspecified; Z90.81 Acquired absence of spleen; Z98.818 Other dental procedure status; Z90.89 Acquired absence of other organs; Z90.49 Acquired absence of other specified parts of digestive tract; Z90.3 Acquired absence of stomach [part of]; Z98.890 Other specified postprocedural states; Z79.82 Long term (current) use of aspirin; Z79.899 Other long term (current) drug therapy

== ENCOUNTER → 2016-09-27 | Day surgery (SDC) | payer OTHER ==
[2016-09-13 14:27] VITALS: Ht 182.9 cm; Wt 180.0 kg
[~2016-09-27] VITALS: Ht 182.9 cm; Wt 180.0 kg
[~2016-09-27] MED LIST changes: +ACET-1256 PO; -LACTCHW3 PO; +LIDOCAINE HCL 2% 2 ML VIAL (20MG/ML) ONE; -LVQ500 PO; +METO25TA56 PO; -MULT-506 PO; +NITR1CAP32 PO; +PROPOFOL IV EMULSION 10 MG/ML 20 ML VIAL IV ONE
--- NOTE | 2016-09-27 14:03 | Endo History and Physical ---
History & Physical Date of Service: Sep 27, 2016. Chief Complaint: Beck's esophagus Referring Physician: Zenaida Flanagan PA-c History of Present Illness f/u barretts Past Medical History Arthritis, Hypertension Past Surgical History Hx Cardiac Surgery: No Hx Internal Defibrillator: No Hx Pacemaker: No Hx Abdominal Surgery: Yes (ABDOMINAL SX X2 "TOOK SOME INTESTINES, STOMACH AND SPLEEN") Hx of Implantable Prosthesis: No Hx Post-Op Nausea and Vomiting: No Hx Cancer Surgery: No Hx Thoracic Surgery: No Hx Orthopedic: Yes (OLSON'S RODS IN BACK, RT ARM FX REPAIR WITH HARDWARE) Hx Urinary Tract Surgery: No Family History None Social History Smoking Status: Former Smoker Hx Substance Use: Yes (SEE MED REC) Hx Alcohol Use: Yes (RARELY) Allergies Coded Allergies: Cephalosporins (Verified Allergy, Intermediate, RASH, 09/13/16) Tolerated ceftriaxone during past admission Penicillins (Verified Allergy, Intermediate, RASH, 09/13/16) Caffeine (Verified Allergy, Unknown, GI SYMPTOMS, 09/27/16) Ibuprofen (Verified Adverse Reaction, Intermediate, CAUSED BI BLEED, ) Current Medications Reported Home Medications Medications Dose Route/Sig Max Daily Dose Days Date Category Macrodantin (Nitrofurantoin Macrocrystals) 100 Mg Cap 100 Mg PO HS 09/13/16 Reported Lopressor (Metoprolol Tartrate) 25 Mg Tab 12.5 Mg PO BID PRN 08/24/16 Reported Tylenol (Acetaminophen) 500 Mg Tab 1,000 Mg PO Q8 PRN 08/24/16 Reported Ambien (Zolpidem Tartrate) 5 Mg Tab 10 Mg PO HS PRN 07/20/16 Reported Kp Ferrous Sulfate (Ferrous Sulfate) 325 Mg Tab 1 Tab PO BID 07/20/16 Reported Percocet 10MG/325MG (Oxycodone/Acetaminophen) Tab 1 Tab PO Q6H PRN 04/30/16 Reported Prilosec (Omeprazole) 40 Mg Cap 40 Mg PO BID 04/30/16 Reported Senokot (Senna) 8.6 Mg Tab 1 Tab PO HS PRN 04/30/16 Reported Cymbalta (Duloxetine Hcl) 60 Mg Cap 60 Mg PO QAM 04/30/16 Reported Lipitor (Atorvastatin) 20 Mg Tab 20 Mg PO HS 11/04/15 Reported Aspirin EC Low Dose (Aspirin) 81 Mg Ectab 81 Mg PO QAM 30 09/09/15 Rx Vital Signs Weight (Kilograms): 180 Height (Feet): 6 Height (Inches): 0 Date Time Temp Pulse Resp B/P (MAP) Pulse Ox O2 Delivery O2 Flow Rate FiO2 09/27/16 13:26 36.7 84 20 128/86 (100) 96 Room Air Physical Exam AAOx3 Nls1s2 Lungs CTA Absd soft NT/ND + BS - CCE Assessment and Plan EGD with BE bx
--- NOTE | 2016-09-27 14:39 | Discharge Instructions ---
Endoscopy Patient Instructions Date / Procedure(s) Performed Sep 27, 2016. EGD Allergy Information Coded Allergies: Cephalosporins (Verified Allergy, Intermediate, RASH, 09/13/16) Tolerated ceftriaxone during past admission Penicillins (Verified Allergy, Intermediate, RASH, 09/13/16) Caffeine (Verified Allergy, Unknown, GI SYMPTOMS, 09/27/16) Ibuprofen (Verified Adverse Reaction, Intermediate, CAUSED BI BLEED, ) Discharge Date / Findings Sep 27, 2016. 1) BE long seg with esophagitis Medication Instructions Stopped Medication(s): last ASA yesterday at 1000 Restart Stopped Medication(s): Reported Home Medications Medications Dose Route/Sig Max Daily Dose Days Date Category Macrodantin (Nitrofurantoin Macrocrystals) 100 Mg Cap 100 Mg PO HS 09/13/16 Reported Lopressor (Metoprolol Tartrate) 25 Mg Tab 12.5 Mg PO BID PRN 08/24/16 Reported Tylenol (Acetaminophen) 500 Mg Tab 1,000 Mg PO Q8 PRN 08/24/16 Reported Ambien (Zolpidem Tartrate) 5 Mg Tab 10 Mg PO HS PRN 07/20/16 Reported Kp Ferrous Sulfate (Ferrous Sulfate) 325 Mg Tab 1 Tab PO BID 07/20/16 Reported Percocet 10MG/325MG (Oxycodone/Acetaminophen) Tab 1 Tab PO Q6H PRN 04/30/16 Reported Prilosec (Omeprazole) 40 Mg Cap 40 Mg PO BID 04/30/16 Reported Senokot (Senna) 8.6 Mg Tab 1 Tab PO HS PRN 04/30/16 Reported Cymbalta (Duloxetine Hcl) 60 Mg Cap 60 Mg PO QAM 04/30/16 Reported Lipitor (Atorvastatin) 20 Mg Tab 20 Mg PO HS 11/04/15 Reported Aspirin EC Low Dose (Aspirin) 81 Mg Ectab 81 Mg PO QAM 30 09/09/15 Rx Reported Home Medications Medications Dose Route/Sig Max Daily Dose Days Date Category Macrodantin (Nitrofurantoin Macrocrystals) 100 Mg Cap 100 Mg PO HS 09/13/16 Reported Lopressor (Metoprolol Tartrate) 25 Mg Tab 12.5 Mg PO BID PRN 08/24/16 Reported Tylenol (Acetaminophen) 500 Mg Tab 1,000 Mg PO Q8 PRN 08/24/16 Reported Ambien (Zolpidem Tartrate) 5 Mg Tab 10 Mg PO HS PRN 07/20/16 Reported Kp Ferrous Sulfate (Ferrous Sulfate) 325 Mg Tab 1 Tab PO BID 07/20/16 Reported Percocet 10MG/325MG (Oxycodone/Acetaminophen) Tab 1 Tab PO Q6H PRN 04/30/16 Reported Prilosec (Omeprazole) 40 Mg Cap 40 Mg PO BID 04/30/16 Reported Senokot (Senna) 8.6 Mg Tab 1 Tab PO HS PRN 04/30/16 Reported Cymbalta (Duloxetine Hcl) 60 Mg Cap 60 Mg PO QAM 04/30/16 Reported Lipitor (Atorvastatin) 20 Mg Tab 20 Mg PO HS 11/04/15 Reported Aspirin EC Low Dose (Aspirin) 81 Mg Ectab 81 Mg PO QAM 30 09/09/15 Rx Please be sure to take Omeprazole twice daily Provider Instructions Activity Restrictions - No exercising or heavy lifting for 24 hours. - Do not drink alcohol the day of the procedure. - Do not drive a car or operate machinery until the day after the procedure. - Do not make any important decisions or sign important papers in 24 hours after the procedure. Following Day: - Return to full activity which may include returning to work/school. Diet Start your diet with liquids and light foods (jello, soup, juice, toast). Then eat your usual diet if not nauseated. Treatment For Common After Affects For mild abdominal pain, bloating, or excessive gas: - Rest - Eat lightly - Lie on right side Follow-Up Information Follow-up with Zenaida Flanagan PA-c as scheduled Anesthesia Information What You Should Know You have had a procedure that required some medicine to reduce anxiety and discomfort. This treatment is called moderate sedation. After receiving the treatment, you may be sleepy, but you will be able to breathe on your own. The effects of the treatment may last for several hours. Follow these instructions along with Activity/Diet recommendations noted above: * Do NOT do anything where dizziness or clumsiness would be dangerous. * Rest quietly at home today, then you can be up and about tomorrow. * Have a responsible person stay with you the rest of today. * You may have had an I.V. today. If so, you may take the dressing off later today. Recommendations Call your doctor if: * Trouble breathing * Continuous vomiting for more than 24 hours * Temperature above 101 degrees * Severe abdominal pain or bloating * Pain not relieved by pain medicine ordered * There is increased drainage or redness from any incision * A large amount of rectal bleeding greater than 2-3 tablespoons. (If you had a polyp/s removed or have hemorrhoids, a small amount of blood - from the rectum is to be expected.) * You have any unanswered questions or concerns. IN THE EVENT OF A SERIOUS EMERGENCY, GO TO THE NEAREST EMERGENCY ROOM Your discharge instructions were prepared by provider Peter Castillo. Patient Instructions Signature Page Ulysses Guardado Patient (or Guardian) Signature/Date: I have read and understand the instructions given to me by my caregivers. Caregiver/RN/Doctor Signature/Date: The above-named patient and/or guardian has received patient instructions on this date. + Original Patient Signature Page (only) stays with chart. Please make copy for patient.
--- NOTE | 2016-09-27 14:51 | Anesthesiology Progress Note ---
Anesthesia Post Op Note Date & Time Sep 27, 2016 at 14:51 Vital Signs Pain Intensity: 0 Vital Signs Past 12 Hours Date Time Temp Pulse Resp B/P (MAP) Pulse Ox O2 Delivery O2 Flow Rate FiO2 09/27/16 13:26 36.7 84 20 128/86 (100) 96 Room Air Notes Mental Status: alert / awake / arousable, participated in evaluation Pt Amnestic to Procedure: Yes Nausea / Vomiting: adequately controlled Pain: adequately controlled Airway Patency, RR, SpO2: stable & adequate BP & HR: stable & adequate Hydration State: stable & adequate Anesthetic Complications: no major complications apparent
--- NOTE | 2016-09-27 14:54 | GI REPORT ---
Procedure Date: 09/27/2016 1:53 PM Procedure: Upper GI endoscopy Indications: Beck's esophagus, Follow-up of Beck's esophagus Medicines: Propofol per Anesthesia Complications: No immediate complications. Estimated blood loss: Minimal. Estimated Blood Loss: Estimated blood loss was minimal. Procedure: Pre-Anesthesia Assessment: - Prior to the procedure, a History and Physical was performed, and patient medications and allergies were reviewed. The patient's tolerance of previous anesthesia was also reviewed. The risks and benefits of the procedure and the sedation options and risks were discussed with the patient. All questions were answered, and informed consent was obtained. Prior Anticoagulants: The patient has taken no previous anticoagulant or antiplatelet agents. ASA Grade Assessment: III - A patient with severe systemic disease. After reviewing the risks and benefits, the patient was deemed in satisfactory condition to undergo the procedure. After obtaining informed consent, the endoscope was passed under direct vision. Throughout the procedure, the patient's blood pressure, pulse, and oxygen saturations were monitored continuously. The scope was introduced through the mouth, and advanced to the jejunum. The upper GI endoscopy was accomplished without difficulty. The patient tolerated the procedure well. Findings: LA Grade C (one or more mucosal breaks continuous between tops of 2 or more mucosal folds, less than 75% circumference) esophagitis with no bleeding was found 25 to 28 cm from the incisors. Biopsies were taken with a cold forceps for histology. Estimated blood loss was minimal. Verification of patient identification for the specimen was done by the physician and vascular ultrasound technician using the patient's name and medical record number. The esophagus and gastroesophageal junction were examined with white light. There were esophageal mucosal changes secondary to established long-segment Beck's disease. These changes involved the mucosa at the upper extent of the gastric folds (45 cm from the incisors) extending to the Z-line (28 cm from the incisors). Diffuse salmon-colored mucosa was present from 28 to 45 cm. The maximum longitudinal extent of these esophageal mucosal changes was 17 cm in length. Mucosa was biopsied with a cold forceps for histology. Estimated blood loss was minimal. Verification of patient identification for the specimen was done by the physician and vascular ultrasound technician using the patient's name and medical record number. A hiatus hernia was found. The proximal extent of the gastric folds (end of tubular esophagus) was 36 cm from the incisors. The hiatal narrowing was 40 cm from the incisors. The Z-line was 36 cm from the incisors. Evidence of a patent Billroth II gastrojejunostomy was found. The gastrojejunal anastomosis was characterized by healthy appearing mucosa. This was traversed. The efferent limb was examined. The afferent limb was examined. Impression: - LA Grade C reflux esophagitis. Biopsied. 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 Biopsied. - Hiatus hernia. - Patent Billroth II gastrojejunostomy was found, characterized by healthy appearing mucosa. Recommendation: - Discharge patient to home (ambulatory). - Advance diet as tolerated. - Await pathology results. - Use Prilosec (omeprazole) 40 mg PO BID indefinitely. - Return to GI clinic as previously scheduled. - Return to referring physician as previously scheduled. MD Peter Ford MD 09/27/2016 2:53:50 PM This report has been signed electronically. Note Initiated On: 09/27/2016 1:53 PM I attest to the content of the Intraoperative Record and orders documented therein, exceptions below
[2016-09-27 15:10] VITALS: BP 131/84; PULSE 64; O2SAT 97
== END | disposition home or self-care (01) ==
LOC: C.GI 13:08
PROVIDERS: ATTEND Internal Medicine Gastroenterology
DX: K22.70 Barrett's esophagus without dysplasia (principal); K21.0 Gastro-esophageal reflux disease with esophagitis; K44.9 Diaphragmatic hernia without obstruction or gangrene; M19.90 Unspecified osteoarthritis, unspecified site; I10 Essential (primary) hypertension; Z87.891 Personal history of nicotine dependence; Z79.82 Long term (current) use of aspirin; G47.33 Obstructive sleep apnea (adult) (pediatric); E78.5 Hyperlipidemia, unspecified; K21.9 Gastro-esophageal reflux disease without esophagitis; Z86.73 Personal history of transient ischemic attack (TIA), and cerebral infarction without residual deficits; F32.9 Major depressive disorder, single episode, unspecified; F41.9 Anxiety disorder, unspecified

== ENCOUNTER → 2017-06-26 | Day surgery (SDC) | payer OTHER ==
[2017-05-10 12:08] VITALS: Ht 182.9 cm; Wt 90.9 kg
[~2017-06-26] VITALS: Ht 182.9 cm; Wt 90.9 kg
[~2017-06-26] MED LIST changes: -ASPEC81 PO; +ASPI-320 PO; +FENTANYL CITRATE INJ 50 MCG/1 ML 2 ML VIAL ONE; +LINA1CAP PO; -OXYC-106 PO; +OXYC10TA80 PO; +SERT-234 PO; +SODIUM CHLORIDE 0.9% 500ML 500 ML IV ONE
--- NOTE | 2017-06-26 15:05 | Endo History and Physical ---
History & Physical Date of Service: Jun 26, 2017. Chief Complaint: Hx of Barretts esophagus Referring Physician: Dr Flanagan History of Present Illness Hx barretts Past Medical History Arthritis, Hypertension Past Surgical History Hx Cardiac Surgery: No Hx Internal Defibrillator: No Hx Pacemaker: No Hx Abdominal Surgery: Yes (ABDOMINAL SX X 2 "TOOK SOME INTESTINES, STOMACH AND SPLEEN") Hx of Implantable Prosthesis: No Hx Post-Op Nausea and Vomiting: No Hx Cancer Surgery: No Hx Thoracic Surgery: No Hx Orthopedic: Yes (OLSON'S RODS IN BACK, RT ARM FX REPAIR WITH HARDWARE) Hx Urinary Tract Surgery: No Family History None Social History Smoking Status: Former Smoker Hx Substance Use: Yes (SEE MED REC) Hx Alcohol Use: Yes (RARELY) Allergies Coded Allergies: Cephalosporins (Verified Allergy, Intermediate, RASH, 06/26/17) Tolerated ceftriaxone during past admission Penicillins (Verified Allergy, Intermediate, RASH, 06/26/17) Caffeine (Verified Allergy, Unknown, GI SYMPTOMS, 06/26/17) Ibuprofen (Verified Adverse Reaction, Intermediate, CAUSED BI BLEED, ) Current Medications Reported Home Medications Medications Dose Route/Sig Max Daily Dose Days Date Category Linzess (Linaclotide) 145 Mcg Cap 1 Cap PO QAM 05/10/17 Reported Zoloft (Sertraline HCl) 100 Mg Tab 100 Mg PO QAM 05/10/17 Reported Kp Ferrous Sulfate (Ferrous Sulfate) 325 Mg Tab 1 Tab PO QAM 05/10/17 Reported Macrodantin (Nitrofurantoin Macrocrystals) 100 Mg Cap 100 Mg PO HS 09/13/16 Reported Lopressor (Metoprolol Tartrate) 25 Mg Tab 12.5 Mg PO BID PRN 08/24/16 Reported Tylenol (Acetaminophen) 500 Mg Tab 1,000 Mg PO Q8 PRN 08/24/16 Reported Ambien (Zolpidem Tartrate) 5 Mg Tab 10 Mg PO HS PRN 07/20/16 Reported Percocet 10MG/325MG (Oxycodone/Acetaminophen) Tab 1 Tab PO Q6H PRN 04/30/16 Reported Prilosec (Omeprazole) 40 Mg Cap 40 Mg PO BID 04/30/16 Reported Senokot (Senna) 8.6 Mg Tab 3 Tab PO QAM PRN 04/30/16 Reported Cymbalta (Duloxetine Hcl) 60 Mg Cap 60 Mg PO QAM 04/30/16 Reported Lipitor (Atorvastatin) 20 Mg Tab 20 Mg PO HS 11/04/15 Reported Aspirin EC Low Dose (Aspirin) 81 Mg Ectab 81 Mg PO QAM 30 09/09/15 Rx Vital Signs Weight (Kilograms): 90.91 Height (Feet): 6 Height (Inches): 0 Date Time Temp Pulse Resp B/P (MAP) Pulse Ox O2 Delivery O2 Flow Rate FiO2 06/26/17 14:46 36.8 72 20 129/83 (98) 98 Room Air Physical Exam General Appearance: WD/WN, no apparent distress Respiratory/Chest: Auscultation: breath sounds normal Cardiovascular: Heart Auscultation: RRR Abdomen: Bowel Sounds: normal Inspection & Palpation: soft, non-distended, no tenderness, guarding & rebound Assessment and Plan EGD with bx jorge alberto
--- NOTE | 2017-06-26 16:34 | Anesthesiology Progress Note ---
Anesthesia Post Op Note Date & Time Jun 26, 2017 at 16:34 Vital Signs Pain Intensity: 3 Vital Signs Past 12 Hours Date Time Temp Pulse Resp B/P (MAP) Pulse Ox O2 Delivery O2 Flow Rate FiO2 06/26/17 16:15 36.8 70 18 121/83 (96) 98 Room Air 06/26/17 14:46 36.8 72 20 129/83 (98) 98 Room Air Notes Mental Status: alert / awake / arousable, participated in evaluation Pt Amnestic to Procedure: Yes Nausea / Vomiting: adequately controlled Pain: adequately controlled Airway Patency, RR, SpO2: stable & adequate BP & HR: stable & adequate Hydration State: stable & adequate Anesthetic Complications: no major complications apparent
[2017-06-26 16:47] VITALS: BP 118/80; PULSE 72; O2SAT 100
--- NOTE | 2017-06-26 16:51 | Discharge Instructions ---
Endoscopy Patient Instructions Date / Procedure(s) Performed Jun 26, 2017. EGD Allergy Information Coded Allergies: Cephalosporins (Verified Allergy, Intermediate, RASH, 06/26/17) Tolerated ceftriaxone during past admission Penicillins (Verified Allergy, Intermediate, RASH, 06/26/17) Caffeine (Verified Allergy, Unknown, GI SYMPTOMS, 06/26/17) Ibuprofen (Verified Adverse Reaction, Intermediate, CAUSED BI BLEED, ) Discharge Date / Findings Jun 26, 2017. ESOPHAGITIS; BARRETTS; hh BX TAKEN Medication Instructions Restart Stopped Medication(s): Reported Home Medications Medications Dose Route/Sig Max Daily Dose Days Date Category Linzess (Linaclotide) 145 Mcg Cap 1 Cap PO QAM 05/10/17 Reported Zoloft (Sertraline HCl) 100 Mg Tab 100 Mg PO QAM 05/10/17 Reported Kp Ferrous Sulfate (Ferrous Sulfate) 325 Mg Tab 1 Tab PO QAM 05/10/17 Reported Macrodantin (Nitrofurantoin Macrocrystals) 100 Mg Cap 100 Mg PO HS 09/13/16 Reported Lopressor (Metoprolol Tartrate) 25 Mg Tab 12.5 Mg PO BID PRN 08/24/16 Reported Tylenol (Acetaminophen) 500 Mg Tab 1,000 Mg PO Q8 PRN 08/24/16 Reported Ambien (Zolpidem Tartrate) 5 Mg Tab 10 Mg PO HS PRN 07/20/16 Reported Percocet 10MG/325MG (Oxycodone/Acetaminophen) Tab 1 Tab PO Q6H PRN 04/30/16 Reported Prilosec (Omeprazole) 40 Mg Cap 40 Mg PO BID 04/30/16 Reported Senokot (Senna) 8.6 Mg Tab 3 Tab PO QAM PRN 04/30/16 Reported Cymbalta (Duloxetine Hcl) 60 Mg Cap 60 Mg PO QAM 04/30/16 Reported Lipitor (Atorvastatin) 20 Mg Tab 20 Mg PO HS 11/04/15 Reported Aspirin EC Low Dose (Aspirin) 81 Mg Ectab 81 Mg PO QAM 30 09/09/15 Rx Reported Home Medications Medications Dose Route/Sig Max Daily Dose Days Date Category Linzess (Linaclotide) 145 Mcg Cap 1 Cap PO QAM 05/10/17 Reported Zoloft (Sertraline HCl) 100 Mg Tab 100 Mg PO QAM 05/10/17 Reported Kp Ferrous Sulfate (Ferrous Sulfate) 325 Mg Tab 1 Tab PO QAM 05/10/17 Reported Macrodantin (Nitrofurantoin Macrocrystals) 100 Mg Cap 100 Mg PO HS 09/13/16 Reported Lopressor (Metoprolol Tartrate) 25 Mg Tab 12.5 Mg PO BID PRN 08/24/16 Reported Tylenol (Acetaminophen) 500 Mg Tab 1,000 Mg PO Q8 PRN 08/24/16 Reported Ambien (Zolpidem Tartrate) 5 Mg Tab 10 Mg PO HS PRN 07/20/16 Reported Percocet 10MG/325MG (Oxycodone/Acetaminophen) Tab 1 Tab PO Q6H PRN 04/30/16 Reported Prilosec (Omeprazole) 40 Mg Cap 40 Mg PO BID 04/30/16 Reported Senokot (Senna) 8.6 Mg Tab 3 Tab PO QAM PRN 04/30/16 Reported Cymbalta (Duloxetine Hcl) 60 Mg Cap 60 Mg PO QAM 04/30/16 Reported Lipitor (Atorvastatin) 20 Mg Tab 20 Mg PO HS 11/04/15 Reported Aspirin EC Low Dose (Aspirin) 81 Mg Ectab 81 Mg PO QAM 30 09/09/15 Rx Provider Instructions Activity Restrictions - No exercising or heavy lifting for 24 hours. - Do not drink alcohol the day of the procedure. - Do not drive a car or operate machinery until the day after the procedure. - Do not make any important decisions or sign important papers in 24 hours after the procedure. Following Day: - Return to full activity which may include returning to work/school. Diet Start your diet with liquids and light foods (jello, soup, juice, toast). Then eat your usual diet if not nauseated. Treatment For Common After Affects For mild abdominal pain, bloating, or excessive gas: - Rest - Eat lightly - Lie on right side Follow-Up Information Follow-up with Dr Flanagan as scheduled Anesthesia Information What You Should Know You have had a procedure that required some medicine to reduce anxiety and discomfort. This treatment is called moderate sedation. After receiving the treatment, you may be sleepy, but you will be able to breathe on your own. The effects of the treatment may last for several hours. Follow these instructions along with Activity/Diet recommendations noted above: * Do NOT do anything where dizziness or clumsiness would be dangerous. * Rest quietly at home today, then you can be up and about tomorrow. * Have a responsible person stay with you the rest of today. * You may have had an I.V. today. If so, you may take the dressing off later today. Recommendations Call your doctor if: * Trouble breathing * Continuous vomiting for more than 24 hours * Temperature above 101 degrees * Severe abdominal pain or bloating * Pain not relieved by pain medicine ordered * There is increased drainage or redness from any incision * A large amount of rectal bleeding greater than 2-3 tablespoons. (If you had a polyp/s removed or have hemorrhoids, a small amount of blood - from the rectum is to be expected.) * You have any unanswered questions or concerns. IN THE EVENT OF A SERIOUS EMERGENCY, GO TO THE NEAREST EMERGENCY ROOM Your discharge instructions were prepared by provider Peter Castillo. Patient Instructions Signature Page Ulysses Debby Patient (or Guardian) Signature/Date: I have read and understand the instructions given to me by my caregivers. Caregiver/RN/Doctor Signature/Date: The above-named patient and/or guardian has received patient instructions on this date. + Original Patient Signature Page (only) stays with chart. Please make copy for patient.
--- NOTE | 2017-06-27 11:34 | GI REPORT ---
Patient Name: Ulysses Guardado Procedure Date: 06/26/2017 3:51 PM Date of : 1960 Admit Type: Outpatient Age: 57 Gender: Male Attending MD: Peter Castillo MD Procedure: Upper GI endoscopy Providers: Peter Castillo MD Referring MD: Zenaida Flanagan Indications: Beck's esophagus, Follow-up of Beck's esophagus Medicines: Propofol per Anesthesia Complications: No immediate complications. Estimated blood loss: Minimal. Estimated Blood Loss: Estimated blood loss was minimal. Procedure: Pre-Anesthesia Assessment: - Prior to the procedure, a History and Physical was performed, and patient medications and allergies were reviewed. The patient's tolerance of previous anesthesia was also reviewed. The risks and benefits of the procedure and the sedation options and risks were discussed with the patient. All questions were answered, and informed consent was obtained. Prior Anticoagulants: The patient has taken no previous anticoagulant or antiplatelet agents. ASA Grade Assessment: II - A patient with mild systemic disease. After reviewing the risks and benefits, the patient was deemed in satisfactory condition to undergo the procedure. After obtaining informed consent, the endoscope was passed under direct vision. Throughout the procedure, the patient's blood pressure, pulse, and oxygen saturations were monitored continuously. The scope was introduced through the mouth, and advanced to the second part of duodenum. The upper GI endoscopy was accomplished without difficulty. The patient tolerated the procedure well. Findings: LA Grade B (one or more mucosal breaks greater than 5 mm, not extending between the tops of two mucosal folds) esophagitis with no bleeding was found 21 to 25 cm from the incisors. The esophagus and gastroesophageal junction were examined with white light. There were esophageal mucosal changes consistent with long-segment Beck's esophagus. These changes involved the mucosa at the upper extent of the gastric folds (35 cm from the incisors) extending to the Z-line (25 cm from the incisors). Hiatal narrowing was identified at 40 cm. Mucosa was biopsied with a cold forceps for histology. Verification of patient identification for the specimen was done by the physician and flight test data acquisition technician using the patient's name and medical record number. Evidence of a previous surgical anastomosis was found in the gastric body. This was characterized by healthy appearing mucosa. The examined duodenum was normal. Evidence of an antrectomy was found in the anastomosis. This was characterized by healthy appearing mucosa. Impression: - LA Grade B reflux esophagitis. - Esophageal mucosal changes consistent with long-segment Beck's esophagus. Biopsied. - A previous surgical anastomosis was found, characterized by healthy appearing mucosa. - Normal examined duodenum. - An antrectomy was found, characterized by healthy appearing mucosa. Recommendation: - Discharge patient to home (ambulatory). - Resume regular diet. - Continue present medications. - Await pathology results. - Repeat upper endoscopy for surveillance based on pathology results. - Return to GI clinic as previously scheduled. - Depending on pathology, may need referral to [facility] to consider ablative therapy ( BARRX/cryotherapy). ABEBE is evident and patent gastroduodenal anastamosis may be contributing. Sulcralfate vs bile salt seqesunterant may need consideration. MD Peter Ford MD 06/26/2017 5:18:25 PM This report has been signed electronically. Note Initiated On: 06/26/2017 3:51 PM Number of Addenda: 0 I attest to the content of the Intraoperative Record and orders documented therein, exceptions below {[id number]}
== END | disposition home or self-care (01) ==
LOC: C.GI 13:20
PROVIDERS: ATTEND Internal Medicine Gastroenterology
DX: K22.70 Barrett's esophagus without dysplasia (principal); K21.0 Gastro-esophageal reflux disease with esophagitis; G82.20 Paraplegia, unspecified; I10 Essential (primary) hypertension; M19.90 Unspecified osteoarthritis, unspecified site; Z90.3 Acquired absence of stomach [part of]; Z87.891 Personal history of nicotine dependence; Z88.0 Allergy status to penicillin; Z88.6 Allergy status to analgesic agent

== ENCOUNTER 2018-12-19 17:46 | Inpatient (IN) ==
[2018-12-19] MEDS ORDERED: CLINDAMYCIN 900 MG in DEXTROSE 5% 50 ML IV ONE (18:24)
[2018-12-19] MEDS ORDERED: DAPTOmycin 500 MG in SYRINGE 0 ML IV STA (18:24)
[2018-12-19] MEDS ORDERED: SODIUM CHLORIDE 0.9% 1000ML 1,000 ML IV ONE (18:28)
[2018-12-19 19:14] LABS: Basophils % (auto) 0.5 %; Eosinophils # (auto) 0.13 K/uL (0-0.5); Eosinophils % (auto) 0.6 %; Hematocrit (blood only) 41.5 % (42-52); Hemoglobin 13.8 g/dL (14.0-18.0); Immature Granulocytes # (auto) 0.09 K/uL (0.00-0.02); Immature Granulocytes % (auto) 0.4 %; Lymphocytes # (auto) 1.77 K/uL (1.2-3.4); Lymphocytes % (auto) 8.2 %; Mean Corpuscular Hemoglobin 31.2 pg (25-34); Mean Corpuscular Hgb Conc 33.3 g/dL (32-36); Mean Corpuscular Volume 93.9 fL (80-100); Monocytes # (auto) 1.04 K/uL (0.11-0.59); Monocytes % (auto) 4.8 %; Neutrophils # (auto) 18.38 K/uL (1.4-6.5); Neutrophils % (auto) 85.5 %; Platelet Count 417 K/uL (130-400); RDW Coefficient of Variation 15.6 % (11.5-14.5); RDW Standard Deviation 54.3 fL (36.4-46.3); Red Blood Count 4.42 M/uL (4.7-6.1); White Blood Count 21.51 K/uL (4.8-10.8)
--- NOTE | 2018-12-19 19:23 | XRay Report ---
SINGLE VIEW CHEST CLINICAL HISTORY: Sepsis. FINDINGS: 2 AP, portable, upright chest radiographs are compared to study dated 01/08/2018. The cardio mediastinal silhouette is unremarkable. The lungs and pleural spaces are clear. No pneumothorax is se en. The bony thorax is grossly intact. There is thoracic scoliosis with spinal rods in place. Degener ative change is noted in the shoulders. IMPRESSION: No active disease in the chest. Electronically signed by: Luther Vasquez M.D. 12/19/2018 7:22 PM
[2018-12-19 19:26] LABS: Partial Thromboplastin Time 26.2 Seconds (21.0-31.0); Prothrombin Time 9.8 Seconds (9.0-12.0)
[2018-12-19 19:32] LABS: Albumin Level 2.5 gm/dl (3.4-5.0); Aspartate Aminotransferase 22 U/L (15-37); BUN Creatinine Ratio 25.2 (10-20); Blood Urea Nitrogen 22 mg/dl (7-18); Calcium 8.7 mg/dl (8.5-10.1); Carbon Dioxide 25 mmol/L (21-32); Chloride 105 mmol/L (98-107); Est GFR (African American) 111.6; Est GFR (Non-African American) 96.3; Glucose 88 mg/dl (70-99); Potassium 3.5 mmol/L (3.5-5.1); Sodium 137 mmol/L (136-145)
[2018-12-19 19:35] LABS: Alanine Aminotransferase 16 U/L (12-78); Albumin Globulin Ratio 0.6 (0.9-2); Alkaline Phosphatase 151 U/L (45-117); Bilirubin,Total 0.3 mg/dl (0.2-1); Globulin 4.4 gm/dl (2.5-4.0); Total Protein 6.9 gm/dl (6.4-8.2)
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
--- NOTE | 2018-12-19 19:57 | XRay Report ---
LETTER 3 VIEWS CLINICAL HISTORY: Left foot infection. FINDINGS: 3 views of the left foot are obtained. No prior studies are available for comparison at the time of dictation. The skeletal structures are heterogeneously osteopenic. There is no radiographic evidence of acute fracture. There are hammertoe deformities of the second through fifth toes which de grades assessment of these digits. Mild osteoarthritic change is present the first metatarsophalangea l joint. Arthritic change is also noted in the midfoot. No bony erosion or periostitis is clearly shannon ntified. Soft tissue edema is present in the forefoot. IMPRESSION: 1. No acute bony abnormality is identified. 2. Osteopenia, degenerative change, and hammertoe deformities as above. 3. Soft tissue edema is present in the forefoot. Electronically signed by: Luther Vasquez M.D. 12/19/2018 7:56 PM
[2018-12-19 20:50] LABS: Appearance Urine Slightly Cloudy (Clear); Bilirubin Urine Negative (Negative); Blood Urine Trace (Negative); Color Urine Yellow; Glucose Urine UA Negative (Negative); Ketones Urine Trace (Negative); Leukocyte Esterase Urine 2+ (Negative); Nitrite Urine Positive (Negative); Protein Urine 1+ (Negative); Specific Gravity Urine 1.025 (1.000-1.030); Urobilinogen Urine Negative (Negative)
[2018-12-19 21:00] LABS: Epithelial Cell Urine >30 /lpf (0-5)
[2018-12-19 21:01] LABS: Bacteria Urine 4+ (Negative); Calcium Oxalate Crystals Urine Present (None Prsent); WBC Urine >30 /hpf (0-5)
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
[2018-12-19] MEDS ORDERED: ONDANSETRON INJ 2 MG/ML 2 ML VIAL IV PRN (22:14)
[2018-12-19] MEDS ORDERED: VANCOMYCIN HCL 1,400 MG in SODIUM CHLORIDE 0.9% 500 ML IV ONE (22:14)
[2018-12-19] MEDS ORDERED: VANCOMYCIN CONSULT ACTIVE PRN (22:14)
[2018-12-19] MEDS ORDERED: ACETAMINOPHEN 325 MG TAB PO PRN (22:14)
[2018-12-19] MEDS: OXYCODONE/ACETAMINOPHEN 10-325 TAB PO PRN (22:56)
[2018-12-19] MEDS ORDERED: VANCOMYCIN HCL 1,750 MG in SODIUM CHLORIDE 0.9% 500 ML IV SCH (23:00)
[2018-12-19] MEDS: LACTATED RINGER'S 1,000 ML IV SCH (23:40)
[2018-12-19] MEDS: AZTREONAM 1,000 MG in DEXTROSE 5% 100 ML IV SCH (23:54)
[2018-12-20] MEDS: MoRPHine SULFATE 4 MG/ML 1 ML CARP\\VIAL IV PRN ×2 (01:47→21:51)
[2018-12-20] MEDS: AZTREONAM 1,000 MG in DEXTROSE 5% 100 ML IV SCH ×3 (05:22→23:23)
[2018-12-20] MEDS: OXYCODONE/ACETAMINOPHEN 10-325 TAB PO PRN ×3 (05:30→23:32)
[2018-12-20 08:04] LABS: Basophils # (auto) 0.14 K/uL (0-0.2); Basophils % (auto) 0.9 %; Eosinophils # (auto) 0.57 K/uL (0-0.5); Eosinophils % (auto) 3.5 %; Hematocrit (blood only) 32.9 % (42-52); Hemoglobin 11.1 g/dL (14.0-18.0); Immature Granulocytes # (auto) 0.11 K/uL (0.00-0.02); Immature Granulocytes % (auto) 0.7 %; Lymphocytes % (auto) 16.1 %; Mean Corpuscular Hemoglobin 30.7 pg (25-34); Mean Corpuscular Hgb Conc 33.7 g/dL (32-36); Mean Corpuscular Volume 90.9 fL (80-100); Mean Platelet Volume 9.2 fL (7.4-10.4); Monocytes # (auto) 1.05 K/uL (0.11-0.59); Monocytes % (auto) 6.5 %; Neutrophils # (auto) 11.69 K/uL (1.4-6.5); Neutrophils % (auto) 72.3 %; Platelet Count 353 K/uL (130-400); RDW Coefficient of Variation 15.5 % (11.5-14.5); Red Blood Count 3.62 M/uL (4.7-6.1); White Blood Count 16.16 K/uL (4.8-10.8)
[2018-12-20] MEDS: PANTOprazole 40 MG TAB PO SCH ×2 (08:04→21:40)
[2018-12-20] MEDS: VANCOMYCIN HCL 1,000 MG in SODIUM CHLORIDE 0.9% 250 ML IV SCH ×2 (08:04→17:53)
[2018-12-20] MEDS: ASPIRIN 81 MG ECTAB PO SCH (08:05)
[2018-12-20] MEDS: SERTRALINE HCL 50 MG TABLET PO SCH (08:05)
[2018-12-20] MEDS: FERROUS SULFATE 325 MG TAB PO SCH (08:05)
[2018-12-20] MEDS: MULTIVITAMIN TAB PO SCH (08:05)
[2018-12-20 08:37] LABS: Albumin Level 1.9 gm/dl (3.4-5.0); Calcium 7.7 mg/dl (8.5-10.1); Creatinine Clr Calc Pharmacy 118.7 ml/min; Est GFR (African American) 122.9; Potassium 3.1 mmol/L (3.5-5.1)
[2018-12-20 08:51] LABS: Albumin Globulin Ratio 0.6 (0.9-2); Bilirubin,Total 0.3 mg/dl (0.2-1); Globulin 3.4 gm/dl (2.5-4.0); Total Protein 5.3 gm/dl (6.4-8.2)
[2018-12-20] MEDS ORDERED: LINACLOTIDE 72 MCG CAPSULE PO SCH (09:00)
[2018-12-20] MEDS ORDERED: SENNA 8.6 MG TAB PO SCH (09:00)
[2018-12-20] MEDS ORDERED: POTASSIUM CHLORIDE 20 MEQ TABCR PO STA (14:27)
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
[2018-12-20] MEDS: LACTATED RINGER'S 1,000 ML IV SCH ×2 (14:53→23:22)
[2018-12-20] MEDS: ENOXAPARIN INJ 40 MG/0.4 ML SYR SQ SCH (15:48)
[2018-12-20] MEDS: ATORVASTATIN 20 MG TAB PO SCH (21:40)
[2018-12-20] MEDS: AMITRIPTYLINE HCL 50 MG TAB PO SCH (21:40)
[2018-12-20] MEDS: ZOLPIDEM TARTRATE 10 MG TAB PO SCH (21:40)
[2018-12-20] MEDS: SENNA 8.6 MG TAB PO SCH (21:40)
[2018-12-21] MEDS: VANCOMYCIN HCL 1,000 MG in SODIUM CHLORIDE 0.9% 250 ML IV SCH ×2 (04:14→14:05)
[2018-12-21 06:45] LABS: Creatinine Clr Calc Pharmacy 134.5 ml/min; Est GFR (African American) 129.4; Est GFR (Non-African American) 111.6
[2018-12-21] MEDS: AZTREONAM 1,000 MG in DEXTROSE 5% 100 ML IV SCH (06:53)
[2018-12-21 08:57] LABS: Basophils # (auto) 0.26 K/uL (0-0.2); Basophils % (auto) 2.2 %; Eosinophils # (auto) 0.68 K/uL (0-0.5); Eosinophils % (auto) 5.7 %; Hematocrit (blood only) 38.8 % (42-52); Hemoglobin 12.9 g/dL (14.0-18.0); Immature Granulocytes % (auto) 0.8 %; Lymphocytes # (auto) 2.96 K/uL (1.2-3.4); Lymphocytes % (auto) 24.7 %; Mean Corpuscular Hemoglobin 30.9 pg (25-34); Mean Corpuscular Hgb Conc 33.2 g/dL (32-36); Mean Corpuscular Volume 92.8 fL (80-100); Mean Platelet Volume 9.3 fL (7.4-10.4); Monocytes # (auto) 0.87 K/uL (0.11-0.59); Monocytes % (auto) 7.3 %; Neutrophils # (auto) 7.09 K/uL (1.4-6.5); Neutrophils % (auto) 59.3 %; Platelet Count 398 K/uL (130-400); RDW Coefficient of Variation 15.8 % (11.5-14.5); Red Blood Count 4.18 M/uL (4.7-6.1); White Blood Count 11.96 K/uL (4.8-10.8)
[2018-12-21] MEDS: LINACLOTIDE 72 MCG CAPSULE PO SCH (09:24)
[2018-12-21] MEDS: OXYCODONE/ACETAMINOPHEN 10-325 TAB PO PRN ×3 (09:24→20:59)
[2018-12-21] MEDS: MULTIVITAMIN TAB PO SCH (09:24)
[2018-12-21] MEDS: FERROUS SULFATE 325 MG TAB PO SCH (09:24)
[2018-12-21] MEDS: PANTOprazole 40 MG TAB PO SCH ×2 (09:24→21:11)
[2018-12-21] MEDS: ENOXAPARIN INJ 40 MG/0.4 ML SYR SQ SCH (09:25)
[2018-12-21] MEDS: ASPIRIN 81 MG ECTAB PO SCH (09:25)
[2018-12-21 09:38] LABS: BUN Creatinine Ratio 14.1 (10-20); Calcium 8.4 mg/dl (8.5-10.1); Creatinine Clr Calc Pharmacy 139.1 ml/min; Est GFR (African American) 131.2; Est GFR (Non-African American) 113.2; Potassium 3.8 mmol/L (3.5-5.1)
[2018-12-21] MEDS: SERTRALINE HCL 50 MG TABLET PO SCH (09:42)
[2018-12-21] MEDS: LACTATED RINGER'S 1,000 ML IV SCH (11:12)
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
[2018-12-21] MEDS: cefTRIAXone SODIUM 1,000 MG in DEXTROSE 5% 50 ML IV SCH (13:02)
[2018-12-21] MEDS ORDERED: VANCOMYCIN TROUGH ONE (13:30)
[2018-12-21] MEDS: MoRPHine SULFATE 4 MG/ML 1 ML CARP\\VIAL IV PRN ×2 (13:36→21:03)
--- NOTE | 2018-12-21 15:17 | Pharmacy Report ---
Pharmacy Abx Initial Consult - Date of Service December 21, 2018 - Pharmacy Dosing Scope Date of Consult: 12/19/18 Consultation requested by: Dr. Winn Pharmacy is consulted to initiate Vancomycin IV dosing therapy, order appropriate labs and adjust drug dose/frequency. - Subjective The patient is a 58 year old M admitted on 12/19/18 21:15. - Objective Height: 6 ft Weight: 70 kg Vital Signs (Past 12hrs): Vital Signs Temp Pulse Resp BP Pulse Ox 12/21/18 07:15 36.5 C 62 18 148/93 H 92 Lab Results (24hrs): Laboratory Tests (24 Hours) 12/21/18 12/21/18 12/21/18 13:39 08:47 08:47 WBC 11.96 H Neut # (Auto) 7.09 H Creatinine 0.58 L Est Cr Clr Drug Dosing 139.1 Vancomycin Trough 15.4 12/21/18 05:23 WBC Neut # (Auto) Creatinine 0.60 Est Cr Clr Drug Dosing 134.5 Vancomycin Trough Micro Results: 12/19/18 20:45 Urine Culture - Final Urine,Indwelling Cath Escherichia coli Proteus mirabilis - Assessment & Plan Assessment 58 year old M presenting from PCP's office with elevated WBC. Patient has been bedbound for weeks. Has a rash and skin breakdown stretching from his shoulder blade, down to the back of his knee. has noticed redness and skin breakdown for weeks. Urine culture is growing E. coli and proteus. Blood cultures x2 still pending. Plan Vancomycin for treatment of rash and skin breakdown Vancomycin IV * Estimated PK Parameters: Vd 0.7 L/kg, Yash 0.087 hr-1, t1/2 8 hr * Loading dose: 1750 mg (25 mg/kg) * Maintenance dose: 1000 mg IV (14 mg/kg) every 10 hours * Goal trough level for SST: 15 to 20 mcg/mL * Trough drawn on 12/21/18 was 15.4 mcg/mL * Continue current dose of 1000mg IV q10h * Next trough level ordered for 12/23/18 at 0530 Laboratory Tests 12/21/18 13:39 Vancomycin Trough 15.4 Pharmacy will continue to follow and will adjust dose/frequency as necessary. Thank you.
[2018-12-21] MEDS: ZOLPIDEM TARTRATE 10 MG TAB PO SCH (20:59)
[2018-12-21] MEDS: AMITRIPTYLINE HCL 50 MG TAB PO SCH (21:01)
[2018-12-21] MEDS: ATORVASTATIN 20 MG TAB PO SCH (21:11)
[2018-12-21] MEDS: SENNA 8.6 MG TAB PO SCH (21:11)
[2018-12-22] MEDS: VANCOMYCIN HCL 1,000 MG in SODIUM CHLORIDE 0.9% 250 ML IV SCH ×3 (00:36→20:08)
[2018-12-22 07:00] LABS: Creatinine Clr Calc Pharmacy 132.3 ml/min; Est GFR (African American) 128.5; Est GFR (Non-African American) 110.9
[2018-12-22] MEDS: OXYCODONE/ACETAMINOPHEN 10-325 TAB PO PRN ×3 (08:40→23:32)
[2018-12-22] MEDS: ENOXAPARIN INJ 40 MG/0.4 ML SYR SQ SCH (08:41)
[2018-12-22] MEDS: MULTIVITAMIN TAB PO SCH (08:41)
[2018-12-22] MEDS: PANTOprazole 40 MG TAB PO SCH ×2 (08:41→20:13)
[2018-12-22] MEDS: SERTRALINE HCL 50 MG TABLET PO SCH (08:41)
[2018-12-22] MEDS: ASPIRIN 81 MG ECTAB PO SCH (08:41)
[2018-12-22] MEDS: LINACLOTIDE 72 MCG CAPSULE PO SCH (08:41)
[2018-12-22] MEDS: FERROUS SULFATE 325 MG TAB PO SCH (08:44)
[2018-12-22] MEDS: MoRPHine SULFATE 4 MG/ML 1 ML CARP\\VIAL IV PRN ×2 (11:10→19:01)
[2018-12-22 11:47] LABS: Influenza A virus by PCR Neg for Influ A (Neg); Influenza B virus by PCR Neg for Influ B (Neg)
--- NOTE | 2018-12-22 12:08 | XRay Report ---
XR chest 1V portable CLINICAL HISTORY: Cough. COMPARISON STUDY: Chest radiograph December 19, 2018. FINDINGS: Lung volumes are normal. Lungs are clear. There is no pneumothorax or pleural effusion. Car diac size is normal. Mediastinal contours are normal. There is no evidence for pulmonary edema. Posto perative findings within the thoracic spine, right humerus as well as the gastroesophageal junction a re noted. IMPRESSION: No acute cardiopulmonary findings. Electronically signed by: Omar Fisher M.D. 12/22/2018 12:07 PM
[2018-12-22] MEDS: cefTRIAXone SODIUM 1,000 MG in DEXTROSE 5% 50 ML IV SCH (12:46)
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
[2018-12-22] MEDS: AMITRIPTYLINE HCL 50 MG TAB PO SCH (20:12)
[2018-12-22] MEDS: ATORVASTATIN 20 MG TAB PO SCH (20:13)
[2018-12-22] MEDS: SENNA 8.6 MG TAB PO SCH (20:14)
[2018-12-22] MEDS: ZOLPIDEM TARTRATE 10 MG TAB PO SCH (21:11)
[2018-12-23] MEDS: MoRPHine SULFATE 4 MG/ML 1 ML CARP\\VIAL IV PRN ×5 (00:47→21:09)
[2018-12-23] MEDS ORDERED: VANCOMYCIN TROUGH ONE (05:30)
[2018-12-23 05:43] LABS: Basophils % (auto) 1.4 %; Eosinophils # (auto) 0.89 K/uL (0-0.5); Eosinophils % (auto) 6.2 %; Hematocrit (blood only) 35.3 % (42-52); Hemoglobin 11.5 g/dL (14.0-18.0); Immature Granulocytes # (auto) 0.13 K/uL (0.00-0.02); Immature Granulocytes % (auto) 0.9 %; Lymphocytes # (auto) 3.59 K/uL (1.2-3.4); Lymphocytes % (auto) 24.8 %; Mean Corpuscular Hemoglobin 30.4 pg (25-34); Mean Corpuscular Hgb Conc 32.6 g/dL (32-36); Mean Corpuscular Volume 93.4 fL (80-100); Mean Platelet Volume 9.6 fL (7.4-10.4); Monocytes # (auto) 1.14 K/uL (0.11-0.59); Monocytes % (auto) 7.9 %; Neutrophils # (auto) 8.52 K/uL (1.4-6.5); Neutrophils % (auto) 58.8 %; Platelet Count 381 K/uL (130-400); RDW Coefficient of Variation 15.9 % (11.5-14.5); Red Blood Count 3.78 M/uL (4.7-6.1); White Blood Count 14.47 K/uL (4.8-10.8)
[2018-12-23 06:12] LABS: Alanine Aminotransferase 18 U/L (12-78); Albumin Level 2.1 gm/dl (3.4-5.0); Aspartate Aminotransferase 18 U/L (15-37); BUN Creatinine Ratio 15.1 (10-20); Bilirubin Direct < 0.1 mg/dl (0-0.2); Blood Urea Nitrogen 9 mg/dl (7-18); Carbon Dioxide 30 mmol/L (21-32); Chloride 106 mmol/L (98-107); Creatinine Clr Calc Pharmacy 130.2 ml/min; Est GFR (African American) 127.6; Est GFR (Non-African American) 110.1; Glucose 85 mg/dl (70-99); Potassium 3.5 mmol/L (3.5-5.1); Sodium 138 mmol/L (136-145)
[2018-12-23 06:14] LABS: Alkaline Phosphatase 114 U/L (45-117); Bilirubin,Total 0.2 mg/dl (0.2-1); Total Protein 6.1 gm/dl (6.4-8.2)
[2018-12-23] MEDS: VANCOMYCIN HCL 1,000 MG in SODIUM CHLORIDE 0.9% 250 ML IV SCH ×2 (06:24→15:39)
[2018-12-23] MEDS: OXYCODONE/ACETAMINOPHEN 10-325 TAB PO PRN ×3 (06:30→23:25)
[2018-12-23] MEDS: ENOXAPARIN INJ 40 MG/0.4 ML SYR SQ SCH (10:05)
[2018-12-23] MEDS: FERROUS SULFATE 325 MG TAB PO SCH (10:05)
[2018-12-23] MEDS: ASPIRIN 81 MG ECTAB PO SCH (10:05)
[2018-12-23] MEDS: LINACLOTIDE 72 MCG CAPSULE PO SCH (10:05)
[2018-12-23] MEDS: MULTIVITAMIN TAB PO SCH (10:07)
[2018-12-23] MEDS: PANTOprazole 40 MG TAB PO SCH ×2 (10:07→20:59)
[2018-12-23] MEDS: SERTRALINE HCL 50 MG TABLET PO SCH (10:07)
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
--- NOTE | 2018-12-23 10:54 | Pharmacy Report ---
Pharmacy Abx Dose Short Note - Date of Service December 23, 2018 - Assessment & Plan Assessment 58 year old M receiving vancomycin/rocephin for treatment of sst Day # 5 of antimicrobial therapy. Plan Vancomycin * Trough level of 17.8 mcg/mL is therapeutic * Continue dose of 1000 mg IV every 10 hours * Goal trough level for 15-20 mcg/mL * Trough will be ordered in 2-3 days or with acute renal change Pharmacy will continue to follow and will adjust dose/frequency as necessary. Thank you.
[2018-12-23] MEDS: cefTRIAXone SODIUM 1,000 MG in DEXTROSE 5% 50 ML IV SCH (12:56)
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
[2018-12-23] MEDS: AMITRIPTYLINE HCL 50 MG TAB PO SCH (20:59)
[2018-12-23] MEDS: ATORVASTATIN 20 MG TAB PO SCH (20:59)
[2018-12-23] MEDS: SENNA 8.6 MG TAB PO SCH (20:59)
[2018-12-23] MEDS: ZOLPIDEM TARTRATE 10 MG TAB PO SCH (21:24)
[2018-12-24] MEDS: VANCOMYCIN HCL 1,000 MG in SODIUM CHLORIDE 0.9% 250 ML IV SCH ×3 (02:20→22:11)
[2018-12-24 06:40] LABS: Basophils # (auto) 0.31 K/uL (0-0.2); Basophils % (auto) 2.3 %; Eosinophils # (auto) 0.87 K/uL (0-0.5); Eosinophils % (auto) 6.4 %; Hematocrit (blood only) 34.9 % (42-52); Hemoglobin 11.9 g/dL (14.0-18.0); Immature Granulocytes # (auto) 0.09 K/uL (0.00-0.02); Immature Granulocytes % (auto) 0.7 %; Lymphocytes # (auto) 3.01 K/uL (1.2-3.4); Lymphocytes % (auto) 22.2 %; Mean Corpuscular Hemoglobin 31.3 pg (25-34); Mean Corpuscular Hgb Conc 34.1 g/dL (32-36); Mean Corpuscular Volume 91.8 fL (80-100); Mean Platelet Volume 9.6 fL (7.4-10.4); Monocytes # (auto) 1.26 K/uL (0.11-0.59); Monocytes % (auto) 9.3 %; Neutrophils # (auto) 7.99 K/uL (1.4-6.5); Neutrophils % (auto) 59.1 %; Platelet Count 412 K/uL (130-400); RDW Coefficient of Variation 16.3 % (11.5-14.5); RDW Standard Deviation 53.7 fL (36.4-46.3); White Blood Count 13.53 K/uL (4.8-10.8)
[2018-12-24] MEDS: SERTRALINE HCL 100 MG TABLET PO SCH (08:29)
[2018-12-24] MEDS: MULTIVITAMIN TAB PO SCH (08:29)
[2018-12-24] MEDS: PANTOprazole 40 MG TAB PO SCH ×2 (08:29→21:19)
[2018-12-24] MEDS: LINACLOTIDE 72 MCG CAPSULE PO SCH (08:30)
[2018-12-24] MEDS: ENOXAPARIN INJ 40 MG/0.4 ML SYR SQ SCH (08:30)
[2018-12-24] MEDS: ASPIRIN 81 MG ECTAB PO SCH (08:30)
[2018-12-24] MEDS: FERROUS SULFATE 325 MG TAB PO SCH (10:46)
[2018-12-24] MEDS: OXYCODONE/ACETAMINOPHEN 10-325 TAB PO PRN ×2 (10:46→17:00)
--- NOTE | 2018-12-24 13:56 | CT Scan Report ---
ABDOMEN AND PELVIS CT WITHOUT CONTRAST CT DOSE: 810.96 mGycm HISTORY: UTI,paraplegia,r/o stones TECHNIQUE: Multiaxial CT images of the abdomen and pelvis were performed without contrast. A dose lo wering technique was utilized adhering to the principles of ALARA. COMPARISON STUDY: Abdomen and pelvis CT 01/08/2018. FINDINGS: A few bibasilar linear densities favor scarring or subsegmental atelectasis. No pneumoperit oneum. No pneumatosis. No suspicious lytic or blastic osseous lesions. The bilateral sacroiliac joint s are fused. Partially visualized thoracic spinal rods are noted. Small hiatus hernia. Prior distal g astrectomy with gastrojejunostomy. Cholecystectomy. The unenhanced liver, adrenal glands, and pancrea s unremarkable. There is a small and lobular appearing spleen with a few accessory spleens within the left upper quadrant. Findings suggest splenosis. Bilateral cortical renal scarring. Punctate stone w ithin the upper pole of the right kidney. Multiple stones within the left kidney with the largest iris suring 5 mm. No hydronephrosis. There are 2 adjacent stones within the proximal right ureter with the largest measuring 4 mm. No left ureteral calculi. No retroperitoneal lymphadenopathy. The bladder is decompressed by Camp catheter. There is gas within the bladder lumen likely due to the catheterizat ion. There is a 4 mm bladder stone. Large amount of stool within the sigmoid colon and rectum. Modera te amount of stool seen throughout the remaining colon. Moderate thickening of the distal sigmoid col on and rectum, unchanged. Atrophy of the pelvic muscles. No dilated loops of small bowel to suggest a n obstruction. IMPRESSION: 1. There are 2 nonobstructing stones within the proximal right ureter measuring 4 mm. No hydronephros is. 2. Bilateral nephrolithiasis. 3. Moderate thickening of the distal colon and rectum, unchanged. There is also a large amount of sto ol within the distal colon and rectum. This could represent a chronic colitis in the appropriate clin ical setting. 4. Additional findings as described above. Electronically signed by: Adrian Martinez M.D. 12/24/2018 1:55 PM
[2018-12-24] MEDS: MoRPHine SULFATE 4 MG/ML 1 ML CARP\\VIAL IV PRN ×3 (14:30→22:11)
[2018-12-24] MEDS: cefTRIAXone SODIUM 1,000 MG in DEXTROSE 5% 50 ML IV SCH (14:42)
[2018-12-24] MEDS ORDERED: bisacodyL 10 MG SUPP PR STA (16:48)
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
[2018-12-24] MEDS: POLYETHYLENE (MIRALAX) 17 GM PACK PO SCH (17:20)
[2018-12-24] MEDS: ZOLPIDEM TARTRATE 10 MG TAB PO SCH (21:17)
[2018-12-24] MEDS: SENNA 8.6 MG TAB PO SCH (21:18)
[2018-12-24] MEDS: AMITRIPTYLINE HCL 50 MG TAB PO SCH (21:18)
[2018-12-24] MEDS: ATORVASTATIN 20 MG TAB PO SCH (21:18)
[2018-12-25] MEDS: OXYCODONE/ACETAMINOPHEN 10-325 TAB PO PRN ×2 (06:14→13:24)
[2018-12-25] MEDS ORDERED: VANCOMYCIN TROUGH ONE (07:30)
[2018-12-25 08:04] LABS: Basophils # (auto) 0.25 K/uL (0-0.2); Basophils % (auto) 1.7 %; Eosinophils # (auto) 0.69 K/uL (0-0.5); Eosinophils % (auto) 4.7 %; Hematocrit (blood only) 36.5 % (42-52); Hemoglobin 12.2 g/dL (14.0-18.0); Immature Granulocytes # (auto) 0.07 K/uL (0.00-0.02); Immature Granulocytes % (auto) 0.5 %; Lymphocytes # (auto) 2.16 K/uL (1.2-3.4); Lymphocytes % (auto) 14.6 %; Mean Corpuscular Hemoglobin 31.3 pg (25-34); Mean Corpuscular Hgb Conc 33.4 g/dL (32-36); Mean Corpuscular Volume 93.6 fL (80-100); Mean Platelet Volume 9.6 fL (7.4-10.4); Monocytes % (auto) 6.1 %; Neutrophils # (auto) 10.68 K/uL (1.4-6.5); Neutrophils % (auto) 72.4 %; Platelet Count 449 K/uL (130-400); RDW Coefficient of Variation 16.7 % (11.5-14.5); RDW Standard Deviation 55.9 fL (36.4-46.3); White Blood Count 14.75 K/uL (4.8-10.8)
[2018-12-25 08:24] LABS: Creatinine Clr Calc Pharmacy 130.2 ml/min; Est GFR (African American) 127.6; Est GFR (Non-African American) 110.1
[2018-12-25] MEDS ORDERED: HydrALAZINE HCL 20 MG/ML VIAL IV PRN (09:09)
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
[2018-12-25] MEDS: VANCOMYCIN HCL 1,000 MG in SODIUM CHLORIDE 0.9% 250 ML IV SCH (09:59)
[2018-12-25] MEDS: FERROUS SULFATE 325 MG TAB PO SCH (10:00)
[2018-12-25] MEDS: ASPIRIN 81 MG ECTAB PO SCH (10:00)
[2018-12-25] MEDS: LINACLOTIDE 72 MCG CAPSULE PO SCH (10:01)
[2018-12-25] MEDS: ENOXAPARIN INJ 40 MG/0.4 ML SYR SQ SCH (10:01)
[2018-12-25] MEDS: PANTOprazole 40 MG TAB PO SCH (10:04)
[2018-12-25] MEDS: MULTIVITAMIN TAB PO SCH (10:04)
[2018-12-25] MEDS: SERTRALINE HCL 100 MG TABLET PO SCH (10:05)
[2018-12-25] MEDS: POLYETHYLENE (MIRALAX) 17 GM PACK PO SCH (10:08)
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
[2018-12-25] MEDS: cefTRIAXone SODIUM 1,000 MG in DEXTROSE 5% 50 ML IV SCH (13:24)
--- NOTE | 2018-12-25 14:12 | Pharmacy Report ---
Pharmacy Abx Dose Short Note - Date of Service December 25, 2018 - Assessment & Plan Assessment 58 year old M receiving vancomycin for treatment of cellulitis Day # 7of antimicrobial therapy. Plan Vancomycin * Trough level of 19.6 mcg/mL is therapeutic * While trough is therapeutic, patient has been accumulating and treatment for cellulitis can target a lower trough therefore change to 1000 mg IV every 12 hours * Goal trough level for 10-20 mcg/mL * Trough currently not ordered as expect vancomcyin to be discontinued on pending discharge, will order for 12/27 @0930 if continued Pharmacy will continue to follow and will adjust dose/frequency as necessary. Thank you.
[2018-12-25] MEDS ORDERED: VANCOMYCIN HCL 1,000 MG in SODIUM CHLORIDE 0.9% 250 ML IV SCH (22:00)
== END 2018-12-25 14:43 | disposition home or self-care (01) | DRG 699 ==
LOC: ED 17:46 → SUATTDRO 21:15 → 4W 21:15

== ENCOUNTER 2019-03-14 14:35 | Inpatient (IN) ==
[2019-03-14] MEDS ORDERED: SODIUM CHLORIDE 0.9% 1000ML 1,000 ML IV SCH (15:00)
[2019-03-14 15:15] LABS: Basophils # (auto) 0.06 K/uL (0-0.2); Basophils % (auto) 0.3 %; Eosinophils # (auto) 0.11 K/uL (0-0.5); Eosinophils % (auto) 0.6 %; Hematocrit (blood only) 37.5 % (42-52); Hemoglobin 12.5 g/dL (14.0-18.0); Immature Granulocytes # (auto) 0.06 K/uL (0.00-0.02); Immature Granulocytes % (auto) 0.3 %; Lymphocytes # (auto) 1.77 K/uL (1.2-3.4); Lymphocytes % (auto) 9.6 %; Mean Corpuscular Hemoglobin 31.1 pg (25-34); Mean Corpuscular Hgb Conc 33.3 g/dL (32-36); Mean Corpuscular Volume 93.3 fL (80-100); Mean Platelet Volume 9.9 fL (7.4-10.4); Monocytes # (auto) 0.34 K/uL (0.11-0.59); Monocytes % (auto) 1.9 %; Neutrophils # (auto) 16.02 K/uL (1.4-6.5); Neutrophils % (auto) 87.3 %; Platelet Count 402 K/uL (130-400); RDW Coefficient of Variation 14.7 % (11.5-14.5); RDW Standard Deviation 50.2 fL (36.4-46.3); Red Blood Count 4.02 M/uL (4.7-6.1); White Blood Count 18.36 K/uL (4.8-10.8)
[2019-03-14 15:26] LABS: Partial Thromboplastin Ratio 0.9; Partial Thromboplastin Time 25.1 Seconds (21.0-31.0); Prothrombin Time 9.8 Seconds (9.0-12.0)
[2019-03-14 15:31] LABS: Alanine Aminotransferase 24 U/L (12-78); Albumin Level 2.6 gm/dl (3.4-5.0); Aspartate Aminotransferase 21 U/L (15-37); BUN Creatinine Ratio 18.5 (10-20); Blood Urea Nitrogen 18 mg/dl (7-18); Calcium 8.4 mg/dl (8.5-10.1); Carbon Dioxide 22 mmol/L (21-32); Chloride 109 mmol/L (98-107); Est GFR (African American) 101.3; Est GFR (Non-African American) 87.4; Glucose 224 mg/dl (70-99); Lipase 45 U/L (73-393); Potassium 3.1 mmol/L (3.5-5.1); Sodium 139 mmol/L (136-145)
[2019-03-14 15:34] LABS: iSTAT Creatinine 0.6 mg/dl (0.6-1.3); iSTAT Hemoglobin 13.6 g/dl (14.0-18.0); iSTAT Ionized Calcium 1.17 mmol/l (1.12-1.32)
[2019-03-14 15:34] LABS: Albumin Globulin Ratio 0.6 (0.9-2); Alkaline Phosphatase 128 U/L (45-117); Bilirubin,Total 0.2 mg/dl (0.2-1); Globulin 4.2 gm/dl (2.5-4.0); Total Protein 6.8 gm/dl (6.4-8.2)
--- NOTE | 2019-03-14 16:11 | CT Scan Report ---
CT OF THE ABDOMEN AND PELVIS WITHOUT CONTRAST CLINICAL HISTORY: Hematuria. Evaluate for stones. Paraplegia. COMPARISON STUDY: CT of the abdomen and pelvis December 24, 2018. TECHNIQUE: Axial images of the abdomen and pelvis were obtained without IV contrast. Images were revi ewed in the axial, sagittal, and coronal planes. Automated exposure control was utilized for the yaya dy. A dose lowering technique was utilized adhering to the principles of ALARA. FINDINGS: A small hiatal hernia is noted. Postoperative findings involving the stomach are unchanged. There is no evidence for a bowel obstruction. No pneumatosis, free air or portal venous gas is prese nt. Evaluation of the abdomen and pelvis is suboptimal on this unenhanced exam. The liver, adrenal gl ands and pancreas are unremarkable. As before, the spleen is irregular and diminutive. This is chroni c. No pneumatosis, free air or portal venous gas is present. Rectosigmoid wall thickening is unchange d. A moderate amount stool within the distal colon and rectum is noted. A Camp balloon is present wi thin the bladder. Hyperdense material within the bladder suggests clot. There is adjacent infiltration. A small amount of gas within the bladder and distal left ureter is noted. Urothelial thickening of the bilateral ure ters is unchanged. There are no ureteral calculi. There is no hydronephrosis. A 5 mm calculus within the left renal pelvis is noted. Additional left renal calculi measure up to 6 mm. Note is made of an 8 mm calculus within the right renal pelvis. Several additional punctate right renal calculi are note d. There is no perinephric infiltration. Chronic deformities of the pelvis and hips are unchanged. No suspicious osseous lesions are noted. IMPRESSION: 1. Bilateral nephrolithiasis including an 8 mm right renal pelvis calculus and a 5 mm left renal pelv is calculus. No ureteral calculi or hydronephrosis. 2. Small to moderate amount of suspected clot within the bladder. Underlying urothelial lesion would be difficult to exclude but is not identified. Infiltration adjacent to the bladder which could be co rrelated with urinalysis. Small amount of gas within the bladder and distal left ureter with Camp ca theter in place. 3. No change in rectosigmoid wall thickening. Moderate amount stool within the distal colon and rectu m. No bowel obstruction. ACT 112: Negative or not required by law. Electronically signed by: Omar Fisher M.D. 03/14/2019 4:10 PM
--- NOTE | 2019-03-14 16:13 | XRay Report ---
XR chest 2V PA/lateral CLINICAL HISTORY: Evaluate for pneumonia. COMPARISON STUDY: Chest radiograph December 22, 2018. FINDINGS: Lung volumes are normal. There is no pneumothorax or pleural effusion. There is no consolid ation or evidence for pulmonary edema. Scoliosis with scoliosis hardware is unchanged. Postoperative findings involving the stomach are incidentally noted. There is no evidence for pulmonary edema. IMPRESSION: No acute cardiopulmonary findings. No change in appearance of the chest. ACT 112: Negative or not required by law. Electronically signed by: Omar Fisher M.D. 03/14/2019 4:11 PM
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
[2019-03-14] MEDS ORDERED: cefTRIAXone SODIUM 2,000 MG/70 ML BAG IV STA (16:52)
[2019-03-14] MEDS ORDERED: VANCOMYCIN HCL IV ONE (16:53)
[2019-03-14] MEDS ORDERED: SODIUM CHLORIDE 0.9% IV ONE (16:53)
[2019-03-14] MEDS ORDERED: VANCOMYCIN CONSULT ACTIVE PRN ×2 (16:53→19:09)
[2019-03-14] MEDS ORDERED: VANCOMYCIN HCL 1,750 MG in SODIUM CHLORIDE 0.9% 500 ML IV STA (17:00)
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
[2019-03-14 18:26] LABS: Appearance Urine Cloudy (Clear); Bacteria Urine Automated 1+ (Negative); Bilirubin Urine Negative (Negative); Blood Urine 3+ (Negative); Color Urine Dark Yellow; Epithelial Cell Urine Auto 0-5 /lpf (0-5); Glucose Urine UA Negative (Negative); Ketones Urine Trace (Negative); Leukocyte Esterase Urine 2+ (Negative); Nitrite Urine Positive (Negative); Protein Urine 1+ (Negative); Specific Gravity Urine 1.023 (1.000-1.030); Urobilinogen Urine Negative (Negative); WBC Urine Automated >30 /hpf (0-5)
[2019-03-14] MEDS ORDERED: ACETAMINOPHEN 500 MG TAB ONE (18:33)
[2019-03-14 18:58] LABS: RBC Urine Automated >30 /hpf (0-4)
[2019-03-14] MEDS ORDERED: ONDANSETRON INJ 2 MG/ML 2 ML VIAL IV PRN (19:09)
--- NOTE | 2019-03-14 19:46 | Pharmacy Report ---
Pharmacy Abx Dose Short Note - Date of Service March 14, 2019 - Assessment & Plan Laboratory Tests 03/14/19 03/14/19 14:59 14:59 WBC 18.36 H Creatinine 0.96 Assessment 58 year old M receiving vanc/ceftriaxone for treatment of complicated UTI Day # 1 of antimicrobial therapy. Pertinent PMH: chronic garrison, paraplegia Plan: Vancomycin * Estimated Vd~0.7L/kg, Ke ~0.0708hr-1, T1/2~9.5 hrs * Received Vanc 1750mg (~23mg/kg) load x 1 in ED * Maintenance Dose: Vanc 1250mg (~15mg/kg) IV q12 hours. * Ordered Vanc trough @ Css prior to 4th dose 03/16/19 @ 0400 Pharmacy will continue to follow and will adjust dose/frequency as necessary. Thank you.
[2019-03-14] MEDS: NSS + 20MEQ KCL 20 MEQ/1,000 ML BAG IV SCH (20:06)
[2019-03-14] MEDS: OXYCODONE/ACETAMINOPHEN 10-325 TAB PO PRN (20:06)
[2019-03-14] MEDS: ZOLPIDEM TARTRATE 10 MG TAB PO SCH (21:14)
[2019-03-14] MEDS: PANTOprazole 40 MG TAB PO SCH (21:14)
[2019-03-14] MEDS: AMITRIPTYLINE HCL 50 MG TAB PO SCH (21:14)
[2019-03-14] MEDS: ATORVASTATIN 20 MG TAB PO SCH (21:14)
[2019-03-14] MEDS: SENNA 8.6 MG TAB PO SCH (21:15)
[2019-03-15] MEDS: VANCOMYCIN HCL 1,250 MG in SODIUM CHLORIDE 0.9% 250 ML IV SCH ×2 (03:47→16:20)
[2019-03-15] MEDS: OXYCODONE/ACETAMINOPHEN 10-325 TAB PO PRN ×4 (03:51→22:01)
[2019-03-15] MEDS: NSS + 20MEQ KCL 20 MEQ/1,000 ML BAG IV SCH ×3 (05:56→23:46)
[2019-03-15 06:23] LABS: Creatinine Clr Calc Pharmacy 218.2 ml/min; Est GFR (African American) > 150.0; Est GFR (Non-African American) 130.5
[2019-03-15] MEDS: MULTIVITAMIN TAB PO SCH (07:42)
[2019-03-15] MEDS: SERTRALINE HCL 100 MG TABLET PO SCH (07:42)
[2019-03-15] MEDS: PANTOprazole 40 MG TAB PO SCH ×2 (07:43→21:09)
[2019-03-15] MEDS: SENNA 8.6 MG TAB PO SCH ×2 (07:43→21:09)
[2019-03-15] MEDS: ASPIRIN 81 MG ECTAB PO SCH (07:43)
[2019-03-15] MEDS: FERROUS SULFATE 325 MG TAB PO SCH (07:43)
[2019-03-15] MEDS: LINACLOTIDE 72 MCG CAPSULE PO SCH (07:44)
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
[2019-03-15 11:00] LABS: Basophils # (auto) 0.12 K/uL (0-0.2); Basophils % (auto) 0.9 %; Eosinophils # (auto) 0.59 K/uL (0-0.5); Eosinophils % (auto) 4.6 %; Hematocrit (blood only) 31.8 % (42-52); Hemoglobin 10.3 g/dL (14.0-18.0); Immature Granulocytes # (auto) 0.05 K/uL (0.00-0.02); Immature Granulocytes % (auto) 0.4 %; Lymphocytes # (auto) 1.94 K/uL (1.2-3.4); Lymphocytes % (auto) 15.3 %; Mean Corpuscular Hemoglobin 30.4 pg (25-34); Mean Corpuscular Hgb Conc 32.4 g/dL (32-36); Mean Corpuscular Volume 93.8 fL (80-100); Mean Platelet Volume 9.3 fL (7.4-10.4); Monocytes # (auto) 1.02 K/uL (0.11-0.59); Neutrophils % (auto) 70.8 %; Platelet Count 323 K/uL (130-400); RDW Standard Deviation 51.2 fL (36.4-46.3); Red Blood Count 3.39 M/uL (4.7-6.1); White Blood Count 12.72 K/uL (4.8-10.8)
[2019-03-15 11:46] LABS: BUN Creatinine Ratio 12.9 (10-20); Calcium 7.9 mg/dl (8.5-10.1); Creatinine Clr Calc Pharmacy 165.7 ml/min; Est GFR (African American) 135.1; Est GFR (Non-African American) 116.5; Potassium 3.1 mmol/L (3.5-5.1)
--- NOTE | 2019-03-15 12:02 | Hospitalist Progress Note ---
Date of Service March 15, 2019 Assessment & Plan (1) UTI (urinary tract infection): Sepsis due to urinary tract infection, chronic indwelling Camp catheter, with new finding of blood clots. Typically has his Camp catheter changed once a month. - Urine culture growing Gram(-) bacilli; priors have grown E. coli and Proteus. - Urology following - Considering intervention for stone disease given the concern of bacterial coloniziation - Continue ceftriaxone (2) Cellulitis of back: Advised to not use Neosporin on the patient's back, as he may be having an allergic reaction to the neomycin in the Neosporin. Advised that she could use Polysporin or double antibiotic instead. (3) Hyperglycemia: Patient reports he had an extra large meal of double cheeseburgers before coming in, as he did not know when he can be able to eat again. But his blood sugars never been as high as 224. - A1c pending - Sliding scale insulin (4) Gross hematuria: Due to UTI. - Now resolved. Camp draining light yellow urine. (5) Sepsis: Met SIRS criteria on admission. - Resolved with IV fluids and antibiotics (6) Hypotension: Blood pressure was briefly low while in ED, and which did respond to normal saline fluid bolus. - Resolved (7) Barretts esophagus: - Change omeprazole to pantoprazole per formulary interchange (8) Hyperlipidemia: Continue atorvastatin 20 mg at bedtime (9) DVT prophylaxis: SCDs - Low DVT risk per admission calculator & will defer in case he needs urology procedure tomorrow Subjective Feeling well today. No overnight events. No fevers. Urine is clear today. Reports no fevers/chills, chest pain, shortness of breath, abdominal pain, nausea, or vomiting. Physical Exam Constitutional: WD/WN, vitals as above Eyes: EOM intact bilaterally; no conjunctival abnormality ENMT: external ear and nose normal, oropharynx normal Neck: trachea midline, no thyromegaly normal visual inspection Respiratory: normal respiratory effort, lungs clear to auscultation no respiratory distress Cardiovascular: RRR, no murmur, no edema Gastrointestinal (Abdomen): Inspection/Auscultation: abdomen normal to inspection; abdomen not distended Musculoskeletal: no cyanosis or clubbing, extremities motor strength 5/5 Skin: no rashes, warm and dry Neurologic: moves all extremities and awake Psychiatric: Orientation: alert, oriented to person and cooperative Genitourinary: + penis abnormality (Catheter in place) Results & Data Vital Signs (Past 12 Hours) Vital Signs Temp Pulse Resp BP Pulse Ox 03/15/19 07:48 36.7 C 69 18 138/89 99 PG Care Time/CCT Total # of Minutes Spent Total Time Spent with Patient: Total time spent is greater than 50% in coordination of care (as documented) at patient's floor/unit and/or counseling patient:
[2019-03-15] MEDS: cefTRIAXone SODIUM 1,000 MG in DEXTROSE 5% 50 ML IV SCH (16:09)
[2019-03-15] MEDS: ATORVASTATIN 20 MG TAB PO SCH (21:09)
[2019-03-15] MEDS: AMITRIPTYLINE HCL 50 MG TAB PO SCH (21:09)
[2019-03-15] MEDS: ZOLPIDEM TARTRATE 10 MG TAB PO SCH (21:09)
[2019-03-15] MEDS: ACETAMINOPHEN 325 MG TAB PO PRN (21:12)
[2019-03-16] MEDS ORDERED: VANCOMYCIN TROUGH ONE (03:30)
[2019-03-16 03:31] LABS: Hemoglobin 11.1 g/dL (14.0-18.0); Mean Corpuscular Hemoglobin 31.2 pg (25-34); Mean Corpuscular Hgb Conc 33.6 g/dL (32-36); Mean Corpuscular Volume 92.7 fL (80-100); Mean Platelet Volume 9.9 fL (7.4-10.4); Platelet Count 379 K/uL (130-400); RDW Coefficient of Variation 14.9 % (11.5-14.5); Red Blood Count 3.56 M/uL (4.7-6.1); White Blood Count 13.65 K/uL (4.8-10.8)
[2019-03-16] MEDS: VANCOMYCIN HCL 1,250 MG in SODIUM CHLORIDE 0.9% 250 ML IV SCH (03:53)
[2019-03-16 04:01] LABS: Calcium 7.8 mg/dl (8.5-10.1); Creatinine Clr Calc Pharmacy 127.8 ml/min; Est GFR (African American) 121.4; Est GFR (Non-African American) 104.8; Magnesium 1.9 mg/dl (1.8-2.4); Phosphorus 2.1 mg/dl (2.5-4.9); Potassium 3.8 mmol/L (3.5-5.1)
[2019-03-16 06:10] LABS: Estimated Average Glucose 97 mg/dl
[2019-03-16] MEDS: OXYCODONE/ACETAMINOPHEN 10-325 TAB PO PRN ×3 (07:35→22:21)
--- NOTE | 2019-03-16 08:03 | Pharmacy Report ---
Pharmacy Abx Dose Short Note - Date of Service March 16, 2019 - Assessment & Plan A/P Vanco trough of 12.7mcg/mL is therapeutic for SST indication. This level is not at Css, however. We will order a level for 03/17 @0330 which will be reflective of Css. His habitus is not indicative of vanco accumulation. Renal fxn looks to be at baseline. E coli in UA sensitive to Rocephin. Pharmacy will continue to follow and will adjust dose/frequency as necessary. Thank you.
[2019-03-16] MEDS: SERTRALINE HCL 100 MG TABLET PO SCH (08:09)
[2019-03-16] MEDS: MULTIVITAMIN TAB PO SCH (08:10)
[2019-03-16] MEDS: PANTOprazole 40 MG TAB PO SCH ×2 (08:10→20:11)
[2019-03-16] MEDS: SENNA 8.6 MG TAB PO SCH ×2 (08:10→20:11)
[2019-03-16] MEDS: LINACLOTIDE 72 MCG CAPSULE PO SCH (08:10)
[2019-03-16] MEDS: FERROUS SULFATE 325 MG TAB PO SCH (08:11)
[2019-03-16] MEDS: ASPIRIN 81 MG ECTAB PO SCH (08:11)
[2019-03-16] MEDS ORDERED: bisacodyL 10 MG SUPP PR SCH (09:00)
[2019-03-16] MEDS: NSS + 20MEQ KCL 20 MEQ/1,000 ML BAG IV SCH (09:57)
--- NOTE | 2019-03-16 11:12 | Urology Progress Note ---
Date of Service March 16, 2019 Assessment & Plan (1) Sepsis: 58yo M with NGB, chronic garrison, admitted with UTI, gross hematuria, sepsis. BCx prelim negative. UC&S final growing 40,000cfu Ecoli, resistance to macrobid, quinolones, PCN. Okay to convert to PO (likely bactrim) for 10-14 days if agreeable to primary service. Will arrange for outpatient followup to discuss stone management, recurrent UTIs. Thank you for allowing us to participate in the acute care of Mr. Guardado. Please reconsult us with additional questions, concerns or changes in patient status. Subjective 58yo M hx NGB, chronic garrison admitted with UTI. BCx prelim negative. Pt states he is feeling better today. HPI was brief due to patient having just been admin suppository and he asked us to leave due to BM. Denies n/v/f/c. Afebrile, VSS Review of Systems Review of Systems: All systems reviewed & are unremarkable except as noted in HPI & below Physical Exam Physical Exam: A&Ox3 Resp rate reg abd soft, nontender garrison draining clear yellow Results & Data Vital Signs (Past 12 Hours) Vital Signs Temp Pulse Resp BP Pulse Ox 03/16/19 07:47 36.9 C 74 16 158/99 H 96 03/15/19 23:30 36.9 C 94 H 18 129/87 93 PG Care Time/CCT Total # of Minutes Spent Total Time Spent with Patient: Total time spent is greater than 50% in coordination of care (as documented) at patient's floor/unit and/or counseling patient:
[2019-03-16] MEDS: cefTRIAXone SODIUM 1,000 MG in DEXTROSE 5% 50 ML IV SCH (16:40)
--- NOTE | 2019-03-16 16:46 | Hospitalist Progress Note ---
Date of Service March 16, 2019 Assessment & Plan (1) UTI (urinary tract infection): Sepsis due to urinary tract infection, chronic indwelling Camp catheter, with gross hematuria. Typically has his Camp catheter changed once a month and was changed out by the day prior to admission. - Urine culture growing E. coli resistant to Ampicillin, Unasyn, FQs, and nitrofurantoin Now much improved, BPs stable, no further hematuria - Urology following - Considering intervention for stone disease given the concern of bacterial colonization in the future--> f/u as outpt - Continue ceftriaxone for today and convert to po bactrim for tomorrow for 14 days total including time of treatment here (2) Cellulitis of back: Seems the exact same as when I saw him in Dec and more consistent with contact dermatitis. He lays around all day and is sweaty -advised barrier creama dn will also be on Bactrim anyway which would cover for cellulitis -dcd Vanco today (3) Hyperglycemia: Patient reports he had an extra large meal of double cheeseburgers before coming in, as he did not know when he can be able to eat again. But his blood sugars never been as high as 224. - A1c noral at 5.0%, does NOT have DMII (4) Gross hematuria: Due to UTI. - Now resolved. Camp draining light yellow urine. (5) Sepsis: Met SIRS criteria on admission. - Resolved with IV fluids and antibiotics (6) Hypotension: Blood pressure was briefly low while in ED, and which did respond to normal saline fluid bolus. - Resolved (7) Barretts esophagus: -continue PPI (8) Hyperlipidemia: Continue atorvastatin 20 mg at bedtime (9) DVT prophylaxis: SCDs - hold chemical means given hematuria Dispo-possible dc to home tomorrow Subjective Feeling better today. No complaints, no abd pain, no chest pain. Has had great difficulty getting out to see a Sample Builder and really would like to see one about his toenails. Having BMs, eating, BPs acceptable. No further gross hematuria Review of Systems Review of Systems: All systems reviewed & are unremarkable except as noted in HPI & below Physical Exam Constitutional: WD/WN, vitals as above Eyes: + anicteric sclerae Neck: trachea midline, no thyromegaly Respiratory: normal respiratory effort, lungs clear to auscultation Cardiovascular: RRR, no murmur, no edema Chest (Breasts): Chest: normal inspection of chest Gastrointestinal (Abdomen): normal bowel sounds, soft, nontender, no hepatosplenomegaly Musculoskeletal: Extremities: no cyanosis and no clubbing diffuse atrophy of lower extremities Skin: + wound (left dorsal foot superficial 3mm scab), + dry skin (diffusely on legs and feet), + erythema (right side of back and lower back,similar to previous) and + nail abnormality (toenails thickend,curled into skin) Neurologic: + focal motor deficit (flaccid lower extremities) and awake Psychiatric: A+Ox3, euthymic affect Genitourinary: no penis abnormality (Camp in place draining clear yellow urine) Lymphatic: no lymphedema Results & Data Vital Signs (Past 12 Hours) Vital Signs Temp Pulse Pulse Resp BP Pulse Ox 03/16/19 15:09 36.9 C 86 16 158/63 H 95 03/16/19 07:47 36.9 C 74 16 158/99 H 96 Laboratory Results 03/16/19 03/16/19 03/16/19 Range/Units 03:20 03:20 03:20 WBC 13.65 H (4.8-10.8) K/uL RBC 3.56 L (4.7-6.1) M/uL Hgb 11.1 L (14.0-18.0) g/dL Hct 33.0 L (42-52) % MCV 92.7 (80-100) fL MCH 31.2 (25-34) pg MCHC 33.6 (32-36) g/dL RDW Std Deviation 51.0 H (36.4-46.3) fL RDW Coeff of Jigna 14.9 H (11.5-14.5) % Plt Count 379 (130-400) K/uL MPV 9.9 (7.4-10.4) fL Sodium 144 (136-145) mmol/L Potassium 3.8 D (3.5-5.1) mmol/L Chloride 113 H (98-107) mmol/L Carbon Dioxide 25 (21-32) mmol/L Anion Gap 6.0 (3-11) BUN 8 (7-18) mg/dl Creatinine 0.70 (0.6-1.4) mg/dl Est Cr Clr Drug Dosing 127.8 ml/min Est GFR ( Amer) 121.4 Est GFR (Non-Af Amer) 104.8 BUN/Creatinine Ratio 12.0 (10-20) Glucose 100 H (70-99) mg/dl Estimat Average Glucose mg/dl Hemoglobin A1c (4.5-5.6) % Calcium 7.8 L (8.5-10.1) mg/dl Phosphorus 2.1 L (2.5-4.9) mg/dl Magnesium 1.9 (1.8-2.4) mg/dl Vancomycin Trough 12.7 (See Comment) mcg/ml 03/14/19 Range/Units 14:59 WBC (4.8-10.8) K/uL RBC (4.7-6.1) M/uL Hgb (14.0-18.0) g/dL Hct (42-52) % MCV (80-100) fL MCH (25-34) pg MCHC (32-36) g/dL RDW Std Deviation (36.4-46.3) fL RDW Coeff of Jigna (11.5-14.5) % Plt Count (130-400) K/uL MPV (7.4-10.4) fL Sodium (136-145) mmol/L Potassium (3.5-5.1) mmol/L Chloride (98-107) mmol/L Carbon Dioxide (21-32) mmol/L Anion Gap (3-11) BUN (7-18) mg/dl Creatinine (0.6-1.4) mg/dl Est Cr Clr Drug Dosing ml/min Est GFR ( Amer) Est GFR (Non-Af Amer) BUN/Creatinine Ratio (10-20) Glucose (70-99) mg/dl Estimat Average Glucose 97 mg/dl Hemoglobin A1c 5.0 (4.5-5.6) % Calcium (8.5-10.1) mg/dl Phosphorus (2.5-4.9) mg/dl Magnesium (1.8-2.4) mg/dl Vancomycin Trough (See Comment) mcg/ml PG Care Time/CCT Total # of Minutes Spent Total Time Spent with Patient: Total time spent is greater than 50% in coordination of care (as documented) at patient's floor/unit and/or counseling patient:
[2019-03-16] MEDS: ACETAMINOPHEN 325 MG TAB PO PRN (20:11)
[2019-03-16] MEDS: ATORVASTATIN 20 MG TAB PO SCH (20:11)
[2019-03-16] MEDS: ZOLPIDEM TARTRATE 10 MG TAB PO SCH (20:11)
[2019-03-16] MEDS: AMITRIPTYLINE HCL 50 MG TAB PO SCH (20:11)
[2019-03-17] MEDS ORDERED: VANCOMYCIN TROUGH ONE (03:30)
[2019-03-17] MEDS: PANTOprazole 40 MG TAB PO SCH (08:16)
[2019-03-17] MEDS: SERTRALINE HCL 100 MG TABLET PO SCH (08:16)
[2019-03-17] MEDS: SENNA 8.6 MG TAB PO SCH (08:17)
[2019-03-17] MEDS: FERROUS SULFATE 325 MG TAB PO SCH (08:17)
[2019-03-17] MEDS: OXYCODONE/ACETAMINOPHEN 10-325 TAB PO PRN ×2 (08:17→15:51)
[2019-03-17] MEDS: LINACLOTIDE 72 MCG CAPSULE PO SCH (08:18)
[2019-03-17] MEDS: ASPIRIN 81 MG ECTAB PO SCH (08:18)
[2019-03-17] MEDS: MULTIVITAMIN TAB PO SCH (08:18)
[2019-03-17] MEDS ORDERED: SULFAMETHOXAZOLE/TRIMETHOPRIM DS 800/160MG TAB PO SCH (09:00)
[2019-03-17] MEDS: ACETAMINOPHEN 325 MG TAB PO PRN (12:45)
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
--- NOTE | 2019-03-17 15:28 | Discharge Summary ---
Date of Service March 17, 2019 Admission HPI Per Admitting Provider The patient is a 58-year-old male with a past medical history of T7 paraplegia following spinal cord injury, hypertension, hyperlipidemia, GERD, Beck's esophagus, history of chronic indwelling Camp catheter with recent E. coli and UTI urinary tract infection requiring admission from 12/19-12/25/2018, and chronic dermatologic process on his back. The patient reports that he has had hematuria in the past with Camp changes, but is never noted clots as he has today. He also reports noting some increased pelvic and abdominal distention which is a new finding for him as well. Discharge Exam Constitutional WD/WN, vitals as above Eyes + anicteric sclerae Neck trachea midline, no thyromegaly Respiratory normal respiratory effort, lungs clear to auscultation Cardiovascular RRR, no murmur, no edema Chest (Breasts) Chest: normal inspection of chest Gastrointestinal (Abdomen) normal bowel sounds, soft, nontender, no hepatosplenomegaly Musculoskeletal Extremities: no cyanosis and no clubbing Skin + wound (left dorsal foot superficial 3mm scab), + dry skin (diffusely on legs and feet), + erythema (right side of back and lower back,similar to previous) and + nail abnormality (toenails thickend,curled into skin) Neurologic + focal motor deficit (flaccid lower extremities) and awake Psychiatric A+Ox3, euthymic affect Genitourinary no penis abnormality (Camp in place draining clear yellow urine) Lymphatic no lymphedema Discharge Data Allergies Allergy/AdvReac Type Severity Reaction Status Date / Time ibuprofen AdvReac Intermediate GI Bleed Verified 03/14/19 15:23 caffeine AdvReac Unknown Gastrointestinal Verified 03/14/19 15:23 Upset Consultations 03/14/19 16:53 ED Decision to Admit Stat 03/14/19 19:09 Consult Case Management - Discharge Planning Routine Consult Urology Routine 03/16/19 16:20 Consult Podiatry Routine Ordered Studies 03/14/19 14:55 CT abd pelvis wo con Stat Hospital Course (1) UTI (urinary tract infection): Sepsis due to urinary tract infection, chronic indwelling Camp catheter, with gross hematuria. Typically has his Camp catheter changed once a month and was changed out by the day prior to admission. - Urine culture growing E. coli resistant to Ampicillin, Unasyn, FQs, and nitrofurantoin Now much improved, BPs stable, no further hematuria - Urology following - Considering intervention for stone disease given the concern of bacterial colonization in the future--> f/u as outpt - Continue ceftriaxone for today and convert to po bactrim for tomorrow for 14 days total including time of treatment here (2) Cellulitis of back: Seems the exact same as when I saw him in Dec and more consistent with contact dermatitis. He lays around all day and is sweaty -advised barrier creama dn will also be on Bactrim anyway which would cover for cellulitis -dcd Vanco today (3) Hyperglycemia: Patient reports he had an extra large meal of double cheeseburgers before coming in, as he did not know when he can be able to eat again. But his blood sugars never been as high as 224. - A1c noral at 5.0%, does NOT have DMII (4) Gross hematuria: Due to UTI. - Now resolved. Camp draining light yellow urine. (5) Sepsis: Met SIRS criteria on admission. - Resolved with IV fluids and antibiotics (6) Hypotension: Blood pressure was briefly low while in ED, and which did respond to normal saline fluid bolus. - Resolved (7) Barretts esophagus: -continue PPI (8) Hyperlipidemia: Continue atorvastatin 20 mg at bedtime (9) DVT prophylaxis: SCDs - hold chemical means given hematuria Dispo-possible dc to home tomorrow Discharge Plan Discharge Items Patient Disposition: Home - Self-Care Reason For Visit: SEPSIS DUE TO UTI Discharge Diagnosis: Sepsis, Camp catheter-associated UTI Condition on Discharge: Good Activity: Resume your previous activity Non-emergency contact: Primary Care Provider and Urologist Call non-emergency contact if: you have any medication questions, your symptoms worsen and your temperature is above 101 Follow-up/Referrals: Dori Powers DPM [Physician] - Zenaida Flanagan PA-C [Primary Care Provider] - Diet: Regular Addtl Attending Provider Instructions: Finish out the course of Bactrim for 10 more days. Please follow up with Urology to discuss your recurrent UTIs and your kidney stones. Follow up with your PCP to discuss your recent hospitalization, as well as for follow up on your depression. You should continue to follow up with Dr. Abebe of [facility] for your toenails. Pending Studies at Discharge: No Stand-Alone Forms: My [facility] Medications and DC Order Prescriptions: New sulfamethoxazole-trimethoprim 800-160 mg Tablet 1 tab PO Q12 Qty: 20 RF: 0 Continued multivitamin Tablet 1 tab PO QAM RF: 0 sennosides [Senokot] 8.6 mg Tablet 25.8 mg PO AMHS RF: 0 atorvastatin 20 mg Tablet 20 mg PO HS RF: 0 omeprazole 40 mg Capsule,Delayed Release(Dr/Ec) 40 mg PO BID RF: 0 aspirin [Aspir-Low] 81 mg Tablet,Delayed Release (Dr/Ec) 81 mg PO QAM RF: 0 oxycodone-acetaminophen 10-325 mg Tablet 1 tab PO Q6H PRN (Reason: Pain) RF: 0 ferrous sulfate [iron] 325 mg (65 mg iron) Tablet 325 mg PO QAM RF: 0 zolpidem [Ambien] 10 mg Tablet 10 mg PO HS RF: 0 Linzess 145 mcg Capsule 145 mcg PO QAM RF: 0 sertraline 100 mg Tablet 200 mg PO QAM Qty: 60 RF: 0 bisacodyl 10 mg suppository 10 mg [place] Q2D Qty: 28 RF: 0 nitrofurantoin macrocrystal 100 mg capsule 100 mg PO HS RF: 0 amitriptyline 50 mg Tablet 50 mg PO HS RF: 0 Discharge Orders: Discharge Order (Routine); Ordered 03/17/19 Ordered By: Shauna Fox Admission Data Admit Date/Time: 03/14/19 17:49 Attending Provider: Shauna Fox Admit Provider: Jah Palencia Primary Care Provider: Zenaida Flanagan Other Providers: Rigoberto Mirza ; Bautista Espana ; Dori Powers
== END 2019-03-17 17:12 | disposition home or self-care (01) | DRG 872 ==
LOC: ED 14:35 → 3N 17:49 → SUATTDRO 17:49 → 3N 18:41

== ENCOUNTER 2019-05-20 20:31 | Inpatient (IN) ==
[2019-05-20] MEDS ORDERED: cefTRIAXone SODIUM 1,000 MG/50 ML BAG IV STA (20:46)
[2019-05-20] MEDS ORDERED: SODIUM CHLORIDE 0.9% 1000ML 1,000 ML IV ONE (20:49)
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
[2019-05-20] MEDS ORDERED: SODIUM CHLORIDE 0.9% 500 ML IV SCH (21:00)
[2019-05-20 21:28] LABS: Hematocrit (blood only) 40.1 % (42-52); Hemoglobin 13.7 g/dL (14.0-18.0); Mean Corpuscular Hemoglobin 31.5 pg (25-34); Mean Corpuscular Hgb Conc 34.2 g/dL (32-36); Mean Corpuscular Volume 92.2 fL (80-100); Mean Platelet Volume 10.1 fL (7.4-10.4); Platelet Count 487 K/uL (130-400); RDW Coefficient of Variation 15.4 % (11.5-14.5); RDW Standard Deviation 52.4 fL (36.4-46.3); Red Blood Count 4.35 M/uL (4.7-6.1); White Blood Count 24.11 K/uL (4.8-10.8)
[2019-05-20 21:43] LABS: BUN Creatinine Ratio 11.5 (10-20); Blood Urea Nitrogen 37 mg/dl (7-18); Calcium 8.9 mg/dl (8.5-10.1); Carbon Dioxide 22 mmol/L (21-32); Chloride 102 mmol/L (98-107); Est GFR (Non-African American) 19.9; Glucose 113 mg/dl (70-99); Potassium 3.1 mmol/L (3.5-5.1); Sodium 136 mmol/L (136-145)
[2019-05-20 22:19] LABS: Basophils % (auto) 0.4 %; Eosinophils # (auto) 0.07 K/uL (0-0.5); Eosinophils % (auto) 0.3 %; Immature Granulocytes # (auto) 0.08 K/uL (0.00-0.02); Immature Granulocytes % (auto) 0.3 %; Lymphocytes # (auto) 1.36 K/uL (1.2-3.4); Lymphocytes % (auto) 5.6 %; Monocytes # (auto) 1.57 K/uL (0.11-0.59); Monocytes % (auto) 6.5 %; Neutrophils # (auto) 20.93 K/uL (1.4-6.5); Neutrophils % (auto) 86.9 %
[2019-05-20 22:49] LABS: Appearance Urine Turbid (Clear); Bacteria Urine Automated Negative (Negative); Bilirubin Urine Negative (Negative); Blood Urine 3+ (Negative); Color Urine Dark Yellow; Epithelial Cell Urine Auto >30 /lpf (0-5); Glucose Urine UA Negative (Negative); Ketones Urine Negative (Negative); Leukocyte Esterase Urine 3+ (Negative); Nitrite Urine Negative (Negative); Protein Urine 2+ (Negative); Specific Gravity Urine 1.025 (1.000-1.030); Urobilinogen Urine Negative (Negative); WBC Urine Automated >30 /hpf (0-5)
[2019-05-20 23:07] LABS: Amorphous Sediment Urine Present (None Prsent); Cast Urine Automated 0 /lpf (0-5); RBC Urine Automated >30 /hpf (0-4)
[2019-05-20] MEDS ORDERED: OXYCODONE/ACETAMINOPHEN 10-325 TAB PO STA (23:08)
[2019-05-21] MEDS ORDERED: SODIUM CHLORIDE 0.9% 1000ML 1,000 ML IV SCH ×2 (00:15→01:46)
[2019-05-21] MEDS ORDERED: SODIUM CHLORIDE 0.9% 1000ML 1,000 ML IV ONE (00:16)
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
[2019-05-21] MEDS ORDERED: ONDANSETRON INJ 2 MG/ML 2 ML VIAL IV PRN ×2 (01:46→11:58)
[2019-05-21] MEDS ORDERED: POLYETHYLENE (MIRALAX) 17 GM PACK PO PRN (01:46)
[2019-05-21] MEDS ORDERED: IMIPENEM/CILASTATIN CONSULT ACTIVE PRN (01:46)
[2019-05-21] MEDS ORDERED: ALUMINUM/MAGNESIUM SUSP 30 ML UDC PO PRN (01:46)
[2019-05-21 02:23] LABS: Basophils # (auto) 0.08 K/uL (0-0.2); Basophils % (auto) 0.4 %; Eosinophils # (auto) 0.14 K/uL (0-0.5); Eosinophils % (auto) 0.8 %; Hemoglobin 11.3 g/dL (14.0-18.0); Immature Granulocytes # (auto) 0.04 K/uL (0.00-0.02); Immature Granulocytes % (auto) 0.2 %; Lymphocytes # (auto) 1.97 K/uL (1.2-3.4); Lymphocytes % (auto) 10.8 %; Mean Corpuscular Hemoglobin 30.1 pg (25-34); Mean Corpuscular Hgb Conc 32.3 g/dL (32-36); Mean Corpuscular Volume 93.3 fL (80-100); Monocytes # (auto) 1.36 K/uL (0.11-0.59); Monocytes % (auto) 7.5 %; Neutrophils # (auto) 14.65 K/uL (1.4-6.5); Neutrophils % (auto) 80.3 %; Platelet Count 399 K/uL (130-400); RDW Coefficient of Variation 15.4 % (11.5-14.5); RDW Standard Deviation 52.7 fL (36.4-46.3); Red Blood Count 3.75 M/uL (4.7-6.1); White Blood Count 18.24 K/uL (4.8-10.8)
[2019-05-21] MEDS: POTASSIUM CHLORIDE / WTR 10 MEQ/100 ML PLCT IV SCH ×5 (02:23→15:53)
[2019-05-21] MEDS: IMIPENEM/CILASTATIN SODIUM 200 MG in DEXTROSE 5% 100 ML IV SCH ×2 (02:25→08:29)
[2019-05-21] MEDS: OXYCODONE/ACETAMINOPHEN 10-325 TAB PO PRN ×3 (02:29→21:40)
[2019-05-21] MEDS: ZOLPIDEM TARTRATE 10 MG TAB PO SCH ×2 (02:30→22:43)
[2019-05-21 02:47] LABS: BUN Creatinine Ratio 14.6 (10-20); Calcium 7.3 mg/dl (8.5-10.1); Creatinine Clr Calc Pharmacy 38.3 ml/min; Est GFR (African American) 34.8
[2019-05-21 04:36] LABS: Basophils # (auto) 0.07 K/uL (0-0.2); Basophils % (auto) 0.4 %; Eosinophils # (auto) 0.29 K/uL (0-0.5); Eosinophils % (auto) 1.6 %; Hematocrit (blood only) 32.1 % (42-52); Hemoglobin 10.9 g/dL (14.0-18.0); Immature Granulocytes # (auto) 0.04 K/uL (0.00-0.02); Immature Granulocytes % (auto) 0.2 %; Lymphocytes # (auto) 2.48 K/uL (1.2-3.4); Mean Corpuscular Hemoglobin 31.1 pg (25-34); Mean Corpuscular Volume 91.5 fL (80-100); Monocytes # (auto) 1.42 K/uL (0.11-0.59); Neutrophils # (auto) 13.42 K/uL (1.4-6.5); Neutrophils % (auto) 75.8 %; Platelet Count 403 K/uL (130-400); RDW Coefficient of Variation 15.4 % (11.5-14.5); RDW Standard Deviation 51.6 fL (36.4-46.3); Red Blood Count 3.51 M/uL (4.7-6.1); White Blood Count 17.72 K/uL (4.8-10.8)
[2019-05-21 04:57] LABS: Calcium 7.2 mg/dl (8.5-10.1); Creatinine Clr Calc Pharmacy 43.8 ml/min; Est GFR (African American) 40.9; Est GFR (Non-African American) 35.3
--- NOTE | 2019-05-21 06:44 | CT Scan Report ---
CT OF THE ABDOMEN AND PELVIS WITHOUT CONTRAST CLINICAL HISTORY: urinary sx, ARF COMPARISON STUDY: CT of the abdomen and pelvis March 14, 2019. TECHNIQUE: Axial images of the abdomen and pelvis were obtained without IV contrast. Images were revi ewed in the axial, sagittal, and coronal planes. Automated exposure control was utilized for the yaya dy. A dose lowering technique was utilized adhering to the principles of ALARA. FINDINGS: Tiny nodular ill-defined opacities within the lower lungs likely reflect bronchiolitis. A s mall hiatal hernia is present. A normal spleen is not visualized. There are few splenules. Unenhanced images of the liver, adrenal glands and pancreas are unremarkable. There is no evidence for a bowel obstruction. There is no biliary ductal dilatation status post cholecystectomy. Postoperative finding s within the stomach are noted. Moderate amount of stool within the rectum is noted. This is similar to prior exam. Muscular atrophy is chronic as is chronic deformity of the pelvis and hips. Note is made of moderate bilateral hydronephrosis. A 6 mm calculus projects over the right posterior aspect of the bladder and is likely at the ureterovesical junction. There is also a 6 mm distal left ureteral calculus likely resulting in the obstruction. A 5 mm nonobstructing distal left ureteral mike culus is also present. Multiple left renal calculi measure up to 6 mm. There is a punctate calculus w ithin the upper pole of the right kidney. A Camp balloon and gas within the bladder are noted. No pn eumatosis, free air or portal venous gas is present. IMPRESSION: 1. 6 mm calculus projecting over the right posterior aspect of the bladder, likely at the ureterovesi mike junction with resultant moderate right hydronephrosis. 2. 6 mm distal left ureteral calculus with resultant moderate left hydronephrosis. Additional 5 mm di stal left ureteral calculus. 3. Bilateral nephrolithiasis. 4. Moderate amount stool within the rectum which is similar to prior exam. No evidence for a bowel ob struction. ACT 112: Negative or not required by law. Electronically signed by: Omar Fisher M.D. 05/21/2019 6:43 AM
--- NOTE | 2019-05-21 08:16 | Hospitalist Progress Note ---
Date of Service May 21, 2019 Assessment & Plan (1) Acute renal failure (ARF): Ulysses Guardado is a 59-year-old man with a past medical history of T7 paraplegia who has a neurogenic bladder requiring chronic Camp catheterization, admitted 05/19 with urosepsis. Sepsis - SIRS criteria met on admission - source likely urinary: UA 2+ leuk est, culture pending, A/P CT scan showing bilaterally obstructive ureterolithiasis and hydronephrosis - blood cultures pending - WBC at 17, down from 24 on admission - lactate normal - patient has been volume resuscitated; hemodynamically stable without need for pressors - given 1 g IV ceftriaxone in ED; transitioned to broad spectrum coverage with Imipenem + cilastatin, renally dosed in setting of RIGOBERTO Complicated UTI - patient with neurogenic bladder and chronic indwelling Camp, frequent UTIs - obstructive stones place patient at risk for pyelonephritis - antimicrobial therapy as above; plan to deescalate with results of culture - patient now with two episodes of obstructive kidney stones in past year; previous urine culture growing Proteus, which is concerning for possible staghorn calculi - consider UTI antimicrobial prophylaxis in the future Bilateral Ureterolithiasis - bilateral 6mm obstructive ureteral stones with resulting hydronephrosis - urology consulted, patient NPO since midnight in anticipation of intervention Acute kidney injury - Cr 3.25 on admission, down to 2.02 today - BUN/Cr ratio 17 - etiology: pre-renal vs. intra-renal vs. post-renal - patient has risk factors for all of the above - bilateral obstructive stones is strong risk factor for post-renal etiology - history of recent vomiting and hypoperfusion in the setting of SIRS is risk factor for pre-renal etiology - ATN possible but less likely given rapidity of improvement in Cr with IV fluid boluses - volume resuscitation, antimicrobial therapy and removal of obstruction as above - continue to trend Cr Hypokalemia - 3.0 on admission, up to 3.1 with administration of 30 mEQ of KCl - patient currently on normal saline 125mls/hr; will add 60 mEQ of KCl riders - although patient presented with acute renal failure, Cr rapidly improved with volume resuscitation, lower suspicion of hyperkalemia - continue to monitor Anemia - Hgb 10.9 today, down from 13.7. - significant drop unlikely to be entirely due to hematuria; instead, more like to be dilutional given 3L bolus - urine grossly appearing more clear compared to admission - Hx of Fe deficiency anemia; continue ferrous sulfate supplement 325mg daily Constipation - moderate stool noted in bowel on A/p CT scan - scheduled Miralax starting 05/21 GERD - continue protonix 40mg BID Hyperlipidemia - continue atorvastatin 20mg daily Chronic back pain - continue home percocet Code Status: Full DVT prophylaxis: SCDs Fluids electrolyte nutrition: normal saline at 125mls/hr, NPO in anticipation of procedure Disposition: Med/surg (2) Acute dehydration: (3) Acute hypotension: (4) Left ureteral stone: (5) Hydroureteronephrosis: (6) Neurogenic bladder: (7) UTI (urinary tract infection): Admission and Anticipated Discharge Date Admission Date: May 21, 2019 Supervising Physician Co-Signing Physician Notes I personally examined the patient and verified all pleitez points of history and exam, discussed case, and agree with decision making with Dr Gill. feeling achy all over but no worse than when he came in. for cysto later this morning. vitals noted nad heent nc at mmm breathing unlabored no accessory muscles good effort skin no rashes no pallor or icterus, lungs clear. sepsis / early septic shock now improved s/p volume resusscitaiton - related to b/l ureterolithiasis/infection - priamxin for now given shocky on admit and high risk for bacteremia - but can likely downgrade as soon as cultures available. stabilizing now. for OR today, anticipate ongoing improvement. with recurrent stone infections and prior proteus, ?need for proph abx? otherwise as above Subjective Reports bilateral flank pain. Concerned about how dark his urine appeared when he was admitted. Review of Systems Genitourinary: + flank pain Physical Exam Constitutional: WD/WN, vitals as above Eyes: + anicteric sclerae ENMT: external ear and nose normal, oropharynx normal Neck: normal visual inspection and trachea midline Respiratory: normal respiratory effort, lungs clear to auscultation Auscultation: no crackles, no rales, no rhonchi and no wheezes Cardiovascular: RRR, no murmur, no edema Heart Sounds: normal S1 and normal S2 Gastrointestinal (Abdomen): normal bowel sounds, soft, nontender, no hepatosplenomegaly Skin: no rashes, warm and dry Psychiatric: A+Ox3, euthymic affect Genitourinary: Camp catheter in place draining mnoy colored urine without visible clots Results & Data ([facility]) Vital Signs (Past 12 Hours) Vital Signs Temp Pulse Pulse Pulse Resp BP BP 05/21/19 07:08 36.4 C L 83 18 126/81 05/21/19 01:53 36.9 C 85 18 112/71 05/21/19 01:15 20 123/74 05/21/19 01:00 118/72 05/21/19 00:45 112/66 05/21/19 00:39 95/67 L 05/21/19 00:30 84/53 L 05/21/19 00:04 87/51 L 05/20/19 23:01 86 22 106/67 05/20/19 22:30 91 H 21 123/85 05/20/19 22:01 98 H 18 137/78 05/20/19 21:30 88 19 99/63 L 05/20/19 21:12 92 H 17 82/62 L 05/20/19 20:33 36.5 C 110 H 18 78/50 L Pulse Ox 05/21/19 07:08 98 05/21/19 01:53 96 05/21/19 01:15 95 05/21/19 01:00 94 05/21/19 00:45 95 05/21/19 00:39 94 05/21/19 00:30 93 05/21/19 00:04 94 05/20/19 23:01 95 05/20/19 22:30 97 05/20/19 22:01 97 05/20/19 21:30 95 05/20/19 21:12 94 05/20/19 20:33 95 Resident Activity Tracking Resident Involvement: Resident Care Provided Care Provided: Adult Hospital Medicine (1) Acute renal failure (ARF) Acute renal failure type: unspecified Qualified Code(s): N17.9 - Acute kidney failure, unspecified
[2019-05-21] MEDS: TRIAMCINOLONE ACET 0.1% CR 15 GM TUBE TOP SCH ×2 (08:30→20:16)
[2019-05-21] MEDS: PANTOprazole 40 MG TAB PO SCH ×2 (08:30→20:16)
[2019-05-21] MEDS: FERROUS SULFATE 325 MG TAB PO SCH (08:30)
[2019-05-21] MEDS: MULTIVITAMIN TAB PO SCH (08:30)
[2019-05-21] MEDS: FLUOXETINE HCL 20 MG CAP PO SCH (08:30)
[2019-05-21] MEDS: LINACLOTIDE 72 MCG CAPSULE PO SCH (08:30)
[2019-05-21] MEDS ORDERED: POLYETHYLENE (MIRALAX) 17 GM PACK PO SCH (09:00)
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
[2019-05-21] MEDS: POTASSIUM CHLORIDE 40 MEQ in SODIUM CHLORIDE 0.9% 1000ML 1,000 ML IV SCH ×2 (10:20→22:43)
--- NOTE | 2019-05-21 10:38 | Electrocardiogram Report ---
Test Reason : Blood Pressure : / mmHG Vent. Rate : 087 BPM Atrial Rate : 087 BPM P-R Int : 142 ms QRS Dur : 114 ms QT Int : 374 ms P-R-T Axes : 063 035 119 degrees QTc Int : 450 ms Normal sinus rhythm Incomplete right bundle branch block Abnormal ECG When compared with ECG of 20-Jul-2016 17:28, T wave inversion more evident in Anterolateral leads Confirmed by Phillip Gibbons ([id number]) on 05/21/2019 10:37:55 AM Referred By: REFERRED SELF Confirmed By:Phillip Gibbons
[2019-05-21] MEDS ORDERED: MIDAZOLAM HCL 1 MG/ML 2ML VIAL ONE (11:42)
[2019-05-21] MEDS ORDERED: PROPOFOL IV EMULSION 10 MG/ML 20 ML VIAL IV ONE (11:43)
[2019-05-21] MEDS ORDERED: fentaNYL citrate 100 MCG/2 ML VIAL ONE (11:43)
[2019-05-21] MEDS ORDERED: ONDANSETRON INJ 2 MG/ML 2 ML VIAL ONE (11:43)
[2019-05-21] MEDS ORDERED: LIDOCAINE HCL 2% 2 ML VIAL/AMP(20MG/ML) INFIL ONE (11:43)
[2019-05-21] MEDS ORDERED: fentaNYL citrate 100 MCG/2 ML VIAL IV PRN (11:58)
[2019-05-21] MEDS ORDERED: ATROPINE SULFATE 0.1 MG/ML 10ML SYR IV PRN (11:58)
[2019-05-21] MEDS ORDERED: ePHEDrine sulfate 50 MG/ML AMP IV PRN (11:58)
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
[2019-05-21] MEDS ORDERED: IOTHALAMATE MEGLUMINE II 17.2% 250 ML VIAL ONE (12:34)
--- NOTE | 2019-05-21 13:18 | Fluoroscopy Report ---
FL retrograde includes kub CLINICAL HISTORY: B/L CYSTO/RETROGRADE LASER STENT COMPARISON STUDY: None FLUOROSCOPY TIME: 1.3 minutes NUMBER OF FLUOROSCOPIC IMAGES: 8 FINDINGS: Image intensifier support was utilized for bilateral retrograde urinary tract evaluation IMPRESSION: Image intensifier support for urinary tract evaluation. ACT 112: Negative or not required by law. The above report was generated using voice recognition software. It may contain grammatical, syntax or spelling errors. Electronically signed by: Ulysses Franklin M.D. 05/21/2019 1:17 PM
--- NOTE | 2019-05-21 13:18 | Operative Report ---
PG Post Operative Report Pre & Post Diagnosis Operation Date: 05/21/19 10:55 Pre-Op Diagnosis: Renal failure, bilateral hydronephrosis with bilateral ureteral stones, possible urinary tract infection. Post-Op Diagnosis: Renal failure, possible urinary tract infection, suspected chronic bilateral hydronephrosis with left distal ureteral stone and bladder stone. Surgeon: Dr. Hans Espana. Anesthesia: Monitored anesthesia care with sedation.. Drains left in place: 16 Finnish Camp catheter with 10 cc of sterile water in the balloon. Specimen sent to pathology: Bladder and left distal ureteral stone for chemical analysis. Complications: None. Findings: Elevated bladder neck, severely trabeculated bladder with inflammation at the bladder neck consistent with chronic Camp catheter, mobile bladder stone discovered consistent with the patient's right distal ureteral stone having passed, no stones present on semirigid ureteroscopy on the right to the mid ureter. Left distal ureteral stone visible and able to be removed at the ureterovesical junction. Dilated and tortuous ureters bilaterally on retrograde pyelography felt to be chronic likely due to neurogenic bladder, left unstented. I identified the patient and participated in the time-out.: Yes Procedure Operation Date: 05/21/19 10:55 Actual Procedures p Cystoscopy, Bilateral Retrograde pyelography, Right Semirigid diagnostic ureteroscopy, Extraction of Bladder calculi and Left ureteral calculi(Bilateral) - Hans Espana MD Brief history: Patient is a 59-year-old male with a history of paraplegia and a neurogenic bladder, chronic Camp catheter who is admitted for possible urinary tract infection. His urine is somewhat contaminated and cloudy as might be expected with his chronic Camp. CT scan of the abdomen and pelvis was performed demonstrating a right ureterovesical junction stone and a left distal ureteral stone. Seen the possible combination of urinary tract infection and upper tract stones as well as renal insufficiency associated with bilateral ureteral stones he is being brought to the operating room today to address these issues. He has been covered with broad-spectrum antibiotics including imipenem. Informed consent reviewed preoperatively with patient today. Please see urology consultation for further details. Procedure: Patient was properly identified and brought into the operative suite after identification of appropriate consent in the chart. Monitored anesthesia care with sedation was initiated and patient was prepped and draped in the standard fashion for this procedure. Full timeout procedure was followed. An indwelling 16 Finnish catheter was removed prior to prepping the patient. 22 Finnish rigid cystoscope was introduced into the bladder under direct visualization and patient was noted to have an elevated bladder neck. Sequelae of a chronic Camp catheter and neurogenic bladder were appreciated including inflammation at the level of the trigone and bladder neck and severe trabeculation with inflammation throughout the bladder. However, otherwise the urine was noted to be relatively clear with minimal debris. Bladder was generously irrigated with sterile irrigant and ureteral orifice ease were appreciated along the interureteric ridge with some inflammation due to the chronic Camp catheter. A mobile stone was appreciated within the bladder consistent with the larger of the 2 distal ureteral stones on the right-hand side. This was able to be irrigated free and was sent for chemical analysis. Using a diesel tractor engine mechanic ureteral catheter and an angled sensor tip wire the right ureteral orifice was addressed and retrograde pyelography was performed. This demonstrated a grossly dilated and tortuous ureter all the way up to the level of the kidney which was able to be navigated with the angled sensor wire and straightened out. After this was complete the cystoscope and ureteral access sheath were removed after draining the bladder and a semirigid ureteroscope was advanced over a second, straight working sensor tip wire into the right distal ureter without the need for dilation. The main barrier was the angle of approach which was able to be straightened using the working wire. Ureteroscope was advanced into the distal ureter which was noted to be free of any stones. This was able to be navigated cephalad to the mid ureter with tortuosity and folds being appreciated but no stones. It was felt to be highly unlikely that significant retropulsion of the stone to take in place. The degree of the patient's hydronephrosis was felt to be most consistent with chronic neurogenic bladder and either a refluxing or obstructive origin rather than the patient's stone. Especially seen the patient's chronic bladder colonization due to his Camp catheter decision was made not to place a stent on the side especially in the context of a lack of significant trauma on ureteroscopy. Exit ureteroscopy demonstrated little irritation to the ureter with no ureteral tears and a generous ureteral orifice. Ureteroscope was removed and the cystoscope was replaced. Left ureteral orifice was visualized and noted to have a stone at the level of the UVJ which was . This was able to be easily grasped and removed using a stent grasper without resistance or difficulties demonstrating an atraumatic ureteral orifice. This was also sent for chemical analysis. Ureteral orifice was catheterized using a 5 Finnish open-ended catheter retrograde pyelography was performed. Again, a grossly dilated, tortuous and patulous ureter was appreciated out of proportion to the patient's ureteral stone. At this point ureteroscopy was not felt to be necessary for assessment of the distal ureter. Seen the lack of significant manipulation on this side decision was also made for similar reasons not to place a stent. Bladder was partially distended and cystoscope was removed. 16 [place] Camp catheter was replaced without difficulties with 10 cc of sterile water in the balloon of clear irrigant. Catheter was placed to gravity drainage and anesthesia was reversed. Patient was transferred to the recovery room in stable condition. Follow-up CARE: Patient will be readmitted to the floor for further management per the primary service. Surgeon Hans Espana MD Special Education Paraprofessional None Estimated Blood Loss 0 Findings Consistent with Post-Op Diagnosis Specimens See above Description of Procedure See above I attest to the content of the Intraoperative Record and any orders documented therein. Any exceptions are noted below.
--- NOTE | 2019-05-21 13:55 | Anesthesiology Progress Note ---
Date of Service May 21, 2019 Anesthesia Post Procedure Vital Signs Vital Signs: Temp Pulse Pulse Pulse Resp BP BP 05/21/19 13:40 79 20 05/21/19 13:30 75 19 05/21/19 13:20 98.4 F 77 21 05/21/19 11:46 98.2 F 85 20 128/92 05/21/19 07:08 97.5 F L 83 18 126/81 05/21/19 01:53 98.4 F 85 18 112/71 05/21/19 01:15 20 123/74 05/21/19 01:00 118/72 05/21/19 00:45 112/66 05/21/19 00:39 95/67 L 05/21/19 00:30 84/53 L 05/21/19 00:04 87/51 L 05/20/19 23:01 86 22 106/67 05/20/19 22:30 91 H 21 123/85 05/20/19 22:01 98 H 18 137/78 05/20/19 21:30 88 19 99/63 L 05/20/19 21:12 92 H 17 82/62 L 05/20/19 20:33 97.7 F 110 H 18 78/50 L BP Pulse Ox 05/21/19 13:40 138/82 95 05/21/19 13:30 122/71 95 05/21/19 13:20 108/67 97 05/21/19 11:46 94 05/21/19 07:08 98 05/21/19 01:53 96 05/21/19 01:15 95 05/21/19 01:00 94 05/21/19 00:45 95 05/21/19 00:39 94 05/21/19 00:30 93 05/21/19 00:04 94 05/20/19 23:01 95 05/20/19 22:30 97 05/20/19 22:01 97 05/20/19 21:30 95 05/20/19 21:12 94 05/20/19 20:33 95 Pain Intensity Back: Pain Intensity: 5 Transfer of Care Handoff Completed per policy Notes Mental Status: alert / awake / arousable and participated in evaluation Patient Amnestic to Procedure: Yes Nausea / Vomiting: adequately controlled Pain: adequately controlled Airway Patency, RR, SpO2: stable & adequate BP & HR: stable & adequate Hydration State: stable & adequate Anesthetic Complications: no major complications apparent and Pt Satisfied with anesthetic care
[2019-05-21] MEDS: IMIPENEM/CILASTATIN SODIUM 300 MG in DEXTROSE 5% 100 ML IV SCH ×2 (14:54→20:15)
[2019-05-21] MEDS: AMITRIPTYLINE HCL 50 MG TAB PO SCH (20:16)
[2019-05-21] MEDS: ATORVASTATIN 20 MG TAB PO SCH (20:16)
[2019-05-21] MEDS ORDERED: COUGH DROP (SUGAR FREE) LOZ 24 LOZ/1 BOX BUCCAL ONE (20:29)
[2019-05-22] MEDS: IMIPENEM/CILASTATIN SODIUM 300 MG in DEXTROSE 5% 100 ML IV SCH ×2 (02:19→07:44)
[2019-05-22 05:11] LABS: Basophils # (auto) 0.08 K/uL (0-0.2); Basophils % (auto) 0.6 %; Eosinophils # (auto) 1.22 K/uL (0-0.5); Eosinophils % (auto) 9.3 %; Hematocrit (blood only) 36.6 % (42-52); Hemoglobin 11.9 g/dL (14.0-18.0); Immature Granulocytes # (auto) 0.05 K/uL (0.00-0.02); Immature Granulocytes % (auto) 0.4 %; Lymphocytes # (auto) 1.86 K/uL (1.2-3.4); Lymphocytes % (auto) 14.2 %; Mean Corpuscular Hemoglobin 30.1 pg (25-34); Mean Corpuscular Hgb Conc 32.5 g/dL (32-36); Mean Corpuscular Volume 92.7 fL (80-100); Mean Platelet Volume 10.2 fL (7.4-10.4); Monocytes # (auto) 0.81 K/uL (0.11-0.59); Monocytes % (auto) 6.2 %; Neutrophils # (auto) 9.09 K/uL (1.4-6.5); Neutrophils % (auto) 69.3 %; Platelet Count 385 K/uL (130-400); RDW Coefficient of Variation 15.6 % (11.5-14.5); RDW Standard Deviation 53.3 fL (36.4-46.3); Red Blood Count 3.95 M/uL (4.7-6.1); White Blood Count 13.11 K/uL (4.8-10.8)
[2019-05-22 05:40] LABS: BUN Creatinine Ratio 15.6 (10-20); Calcium 8.2 mg/dl (8.5-10.1); Creatinine Clr Calc Pharmacy 88.4 ml/min; Est GFR (African American) 95.7; Est GFR (Non-African American) 82.6; Potassium 4.6 mmol/L (3.5-5.1)
--- NOTE | 2019-05-22 05:51 | Billing Data ---
Date of Service May 22, 2019 Coding Level of Care Code 59049 Initial Inpt Care Lvl 3
[2019-05-22] MEDS: POTASSIUM CHLORIDE 40 MEQ in SODIUM CHLORIDE 0.9% 1000ML 1,000 ML IV SCH (07:03)
[2019-05-22] MEDS: LINACLOTIDE 72 MCG CAPSULE PO SCH (07:40)
[2019-05-22] MEDS: POLYETHYLENE (MIRALAX) 17 GM PACK PO SCH (07:40)
[2019-05-22] MEDS: OXYCODONE/ACETAMINOPHEN 10-325 TAB PO PRN ×3 (07:40→20:54)
[2019-05-22] MEDS: PANTOprazole 40 MG TAB PO SCH ×2 (07:41→20:48)
[2019-05-22] MEDS: FLUOXETINE HCL 20 MG CAP PO SCH (07:41)
[2019-05-22] MEDS: FERROUS SULFATE 325 MG TAB PO SCH (07:41)
[2019-05-22] MEDS: MULTIVITAMIN TAB PO SCH (07:41)
[2019-05-22] MEDS: TRIAMCINOLONE ACET 0.1% CR 15 GM TUBE TOP SCH ×2 (07:41→20:48)
[2019-05-22] MEDS: NSS + 20MEQ KCL 20 MEQ/1,000 ML BAG IV SCH ×2 (08:56→17:14)
--- NOTE | 2019-05-22 08:56 | Anesthesiology Progress Note ---
Date of Service May 22, 2019 Anesthesia Post Procedure Vital Signs Vital Signs: Temp Pulse Pulse Resp BP BP Pulse Ox 05/22/19 07:17 36.8 C 79 18 147/93 H 94 05/22/19 02:30 36.8 C 80 18 163/97 H 94 05/21/19 22:37 36.8 C 84 16 144/82 H 94 05/21/19 19:37 36.6 C 84 16 151/96 H 99 05/21/19 16:54 37.0 C 90 16 108/70 93 05/21/19 15:56 37 C 96 H 18 124/82 98 05/21/19 15:10 36.4 C L 79 16 171/96 H 93 05/21/19 14:35 37.1 C 92 H 18 149/81 H 92 05/21/19 14:00 76 21 137/91 94 05/21/19 13:50 36.8 C 78 16 141/67 H 94 05/21/19 13:40 79 20 138/82 95 05/21/19 13:30 75 19 122/71 95 05/21/19 13:20 36.9 C 77 21 108/67 97 05/21/19 11:46 36.8 C 85 20 128/92 94 Pain Intensity Back: Pain Intensity: 5 Neck: Pain Intensity: 5 Notes Mental Status: alert / awake / arousable and participated in evaluation Patient Amnestic to Procedure: Yes Nausea / Vomiting: adequately controlled Pain: adequately controlled Airway Patency, RR, SpO2: stable & adequate BP & HR: stable & adequate Hydration State: stable & adequate Anesthetic Complications: no major complications apparent
[2019-05-22] MEDS ORDERED: cefTRIAXone SODIUM 1,000 MG in DEXTROSE 5% 50 ML IV SCH (09:15)
[2019-05-22] MEDS: cefTRIAXone SODIUM 2,000 MG in DEXTROSE 5% 50 ML IV SCH (10:07)
--- NOTE | 2019-05-22 11:27 | Hospitalist Progress Note ---
Date of Service May 22, 2019 Assessment & Plan (1) Acute renal failure (ARF): Ulysses Guardado is a 59-year-old man with a past medical history of T7 paraplegia who has a neurogenic bladder requiring chronic Camp catheterization, admitted 05/19 with urosepsis. Sepsis - SIRS criteria met on admission - source likely urinary: UA 2+ leuk est, culture pending, A/P CT scan showing bilaterally obstructive ureterolithiasis and hydronephrosis - blood cultures pending - WBC continues to trend down, at 13 today - lactate normal - patient has been volume resuscitated; hemodynamically stable without need for pressors - we will deescalate antibiotic coverage given clinical improvement; if patient begins to deteriorate, low threshold to escalate coverage back to imipenem Complicated UTI - patient with neurogenic bladder and chronic indwelling Camp, frequent UTIs - obstructive stones placed patient at risk for pyelonephritis - urine culture showing contamination with skin yessi - imipenem deescalated to ceftriaxone - patient now with two episodes of obstructive kidney stones in past year; previous urine culture growing Proteus, which is concerning for possible staghorn calculi - consider UTI antimicrobial prophylaxis in the future Bilateral Ureterolithiasis - bilateral 6mm obstructive ureteral stones with resulting hydronephrosis - POD 1 s/p cystoscopy, b/l Retrograde pyelography, right ureteroscopy, extraction of bladder calculi and left ureteral calculi - stones sent for analysis - will follow up with urology as an outpatient Acute kidney injury - resolved - Cr 3.25 on admission, down to 1.00 today - BUN/Cr ratio 17 - etiology: pre-renal vs. intra-renal vs. post-renal - patient has risk factors for all of the above - bilateral obstructive stones is strong risk factor for post-renal etiology - history of recent vomiting and hypoperfusion in the setting of SIRS is risk factor for pre-renal etiology - ATN possible but less likely given rapidity of improvement in Cr with IV fluid boluses - volume resuscitation, antimicrobial therapy and removal of obstruction as above Hypokalemia -resolved - 3.0 on admission, up to 4.6 Anemia - Hgb 11.9 today, up from 10.9 - suspected etiology: dilutional - urine grossly appearing more clear compared to admission - Hx of Fe deficiency anemia; continue ferrous sulfate supplement 325mg daily Constipation - moderate stool noted in bowel on A/p CT scan - scheduled Miralax GERD - continue protonix 40mg BID Hyperlipidemia - continue atorvastatin 20mg daily Chronic back pain - continue home percocet prn Code Status: Full DVT prophylaxis: SCDs Fluids electrolyte nutrition: regular Disposition: Med/surg (2) Acute dehydration: (3) Acute hypotension: (4) Left ureteral stone: (5) Hydroureteronephrosis: (6) Neurogenic bladder: (7) UTI (urinary tract infection): Admission and Anticipated Discharge Date Admission Date: May 21, 2019 Supervising Physician Co-Signing Physician Notes I personally examined the patient and verified all pleitez points of history and exam, discussed case, and agree with decision making with Dr Gill. feeling much better. ate well. no current sx. pleased with progress. vitals noted nad heent nc at mmm breathing unlabored no accessory muscles good effort skin no rashes no pallor or icterus, lungs clear. sepsis / early septic shock now improved s/p volume resuscitaiton - related to b/l ureterolithiasis/infection primarily related to cath associated UTI/chronic neurogenic bladder - initially on priamxin given shocky on admit and high risk for bacteremia - cultures unfortunatley appear unlikely to be helpful, but with rapid improvement will change to ceftriaxone to prevent complications from ongoing overly broad coverage (Cdiff, resistance, longer LOS) now that he's improved/stabilized. follow into tomorrow - if ongoing stability/improvement then hopefully home tomorrow on PO abx. otherwise as above, with ongoing ipmrovement on ceftriaxone, anticipate home tomorrow Subjective Reports feeling well. No flank/abdominal pain. Eating well. Review of Systems Review of Systems: All systems reviewed & are unremarkable except as noted in HPI & below Physical Exam Constitutional: WD/WN, vitals as above Eyes: + anicteric sclerae ENMT: external ear and nose normal, oropharynx normal Neck: normal visual inspection and trachea midline Gastrointestinal (Abdomen): normal bowel sounds, soft, nontender, no hepatosplenomegaly Skin: no rashes, warm and dry Psychiatric: A+Ox3, euthymic affect Results & Data ([facility]) Vital Signs (Past 12 Hours) Vital Signs Temp Pulse Resp BP Pulse Ox 05/22/19 07:17 36.8 C 79 18 147/93 H 94 05/22/19 02:30 36.8 C 80 18 163/97 H 94 Resident Activity Tracking Resident Involvement: Resident Care Provided Care Provided: Adult Hospital Medicine (1) Acute renal failure (ARF) Acute renal failure type: unspecified Qualified Code(s): N17.9 - Acute kidney failure, unspecified
--- NOTE | 2019-05-22 11:31 | Urology Progress Note ---
Date of Service May 22, 2019 Assessment & Plan (1) Right ureteral stone: (2) Left ureteral stone: (3) Hydroureteronephrosis: 59 yo M POD #1 s/p cystoscopy, b/l Retrograde pyelography, right ureteroscopy, extraction of bladder calculi and left ureteral calculi with Dr. Espana. - Doing well, progressing as expected - Creatinine WNL today - BCx no growth x 24 h - UC&S showed low counts of probable yessi - Recommend d/c with short course of PO antibiotics - Clinical course reviewed, all questions answered - Will arrange outpatient follow-up with our service Thank you for allowing us to participate in the acute care of Mr. Guardado. Please reconsult us with additional questions, concerns or changes in patient status. Subjective 59 yo M POD #1 s/p cystoscopy, b/l Retrograde pyelography, right ureteroscopy, extraction of bladder calculi and left ureteral calculi with Dr. Espana. Awake, alert, resting in bed. No issues overnight. No abdominal, flank, or suprapubic pain. Camp catheter intact, patent, draining yellow urine with some bloody sediment. No f/c/n/v. BCx no growth x 24 hours UC&S low counts of probable skin yessi Lab work: Creatinine 1.00, WBC 13.11, Hgb 11.9 Review of Systems Constitutional: as per Subjective / HPI Gastrointestinal: as per Subjective / HPI Genitourinary: + as per Subjective / HPI Physical Exam Constitutional: well developed and well nourished; no acute distress Respiratory: normal respiratory effort and able to speak in complete sentences; no respiratory distress and no labored breathing Cardiovascular: Extremities: no pedal edema Gastrointestinal (Abdomen): Inspection/Auscultation: abdomen normal to inspection; abdomen not distended Percussion/Palpation: abdomen soft; abdomen nontender and no guarding Neurologic: awake Psychiatric: Orientation: alert, oriented x 3 and cooperative Genitourinary: Camp catheter intact, patent, draining yellow urine with some bloody sediment Results & Data Vital Signs (Past 12 Hours) Vital Signs Temp Pulse Resp BP Pulse Ox 05/22/19 07:17 36.8 C 79 18 147/93 H 94 05/22/19 02:30 36.8 C 80 18 163/97 H 94 PG Care Time/CCT Total # of Minutes Spent Total Time Spent with Patient: Total time spent is greater than 50% in coordination of care (as documented) at patient's floor/unit and/or counseling patient: Coding Level of Care Code 39979 Subseq Hosp Care Lvl 2 Diagnoses Right ureteral stone N20.1 Left ureteral stone N20.1 Hydroureteronephrosis N13.30
--- NOTE | 2019-05-22 15:14 | Billing Data ---
Date of Service May 22, 2019 Coding Level of Care Code 73522 Subseq Hosp Care Lvl 3
[2019-05-22] MEDS: SACCHAROMYCES BOULARDII 250 MG CAP PO SCH (17:38)
[2019-05-22] MEDS: ATORVASTATIN 20 MG TAB PO SCH (20:47)
[2019-05-22] MEDS: AMITRIPTYLINE HCL 50 MG TAB PO SCH (20:48)
[2019-05-22] MEDS: ZOLPIDEM TARTRATE 10 MG TAB PO SCH (23:03)
[2019-05-22 23:06] VITALS: TEMP 98.4
[2019-05-23] MEDS: NSS + 20MEQ KCL 20 MEQ/1,000 ML BAG IV SCH ×2 (01:00→08:32)
[2019-05-23 06:21] LABS: BUN Creatinine Ratio 15.3 (10-20); Calcium 8.6 mg/dl (8.5-10.1); Creatinine Clr Calc Pharmacy 126.3 ml/min; Est GFR (African American) 120.6; Potassium 4.3 mmol/L (3.5-5.1)
[2019-05-23 06:54] VITALS: O2SAT 97
--- NOTE | 2019-05-23 06:56 | Hospitalist Progress Note ---
Date of Service May 23, 2019 Assessment & Plan (1) Acute renal failure (ARF): Ulysses Guardado is a 59-year-old man with a past medical history of T7 paraplegia who has a neurogenic bladder requiring chronic Camp catheterization, admitted 05/19 with urosepsis. Sepsis - SIRS criteria met on admission - source likely urinary: UA 2+ leuk est, culture pending, A/P CT scan showing bilaterally obstructive ureterolithiasis and hydronephrosis - blood cultures now growth after 48 hours. - WBC stable at 13 yesterday - lactate normal - patient has been volume resuscitated; hemodynamically stable without need for pressors - we will deescalate antibiotic coverage given clinical improvement; if patient begins to deteriorate, low threshold to escalate coverage back to imipenem Complicated UTI - patient with neurogenic bladder and chronic indwelling Camp, frequent UTIs - obstructive stones placed patient at risk for pyelonephritis - urine culture showing contamination with skin yessi - imipenem deescalated to ceftriaxone - patient now with two episodes of obstructive kidney stones in past year; previous urine culture growing Proteus, which is concerning for possible staghorn calculi - consider UTI antimicrobial prophylaxis in the future Bilateral Ureterolithiasis - bilateral 6mm obstructive ureteral stones with resulting hydronephrosis - POD 1 s/p cystoscopy, b/l Retrograde pyelography, right ureteroscopy, extraction of bladder calculi and left ureteral calculi - stones sent for analysis - will follow up with urology as an outpatient Acute kidney injury - resolved - Cr 3.25 on admission, down to 1.00 today - BUN/Cr ratio 17 - etiology: pre-renal vs. intra-renal vs. post-renal - patient has risk factors for all of the above - bilateral obstructive stones is strong risk factor for post-renal etiology - history of recent vomiting and hypoperfusion in the setting of SIRS is risk factor for pre-renal etiology - ATN possible but less likely given rapidity of improvement in Cr with IV fluid boluses - volume resuscitation, antimicrobial therapy and removal of obstruction as above Hypokalemia -resolved - 3.0 on admission, up to 4.6 Anemia - Hgb 11.9 today, up from 10.9 - suspected etiology: dilutional - urine grossly appearing more clear compared to admission - Hx of Fe deficiency anemia; continue ferrous sulfate supplement 325mg daily Constipation - moderate stool noted in bowel on A/p CT scan - scheduled Miralax GERD - continue protonix 40mg BID Hyperlipidemia - continue atorvastatin 20mg daily Chronic back pain - continue home percocet prn Code Status: Full DVT prophylaxis: SCDs Fluids electrolyte nutrition: regular Disposition: Med/surg (2) Acute dehydration: (3) Acute hypotension: (4) Left ureteral stone: (5) Hydroureteronephrosis: (6) Neurogenic bladder: (7) UTI (urinary tract infection): Admission and Anticipated Discharge Date Admission Date: May 21, 2019 Results & Data ([facility]) Vital Signs (Past 12 Hours) Vital Signs Temp Pulse Pulse Resp BP BP Pulse Ox 05/23/19 06:51 36.9 C 71 20 192/106 H 97 05/23/19 04:25 71 172/112 H 166/107 H 05/22/19 23:05 36.9 C 79 18 169/98 H 96 (1) Acute renal failure (ARF) Acute renal failure type: unspecified Qualified Code(s): N17.9 - Acute kidney failure, unspecified
[2019-05-23] MEDS: OXYCODONE/ACETAMINOPHEN 10-325 TAB PO PRN ×2 (07:16→13:45)
[2019-05-23] MEDS: TRIAMCINOLONE ACET 0.1% CR 15 GM TUBE TOP SCH (08:32)
[2019-05-23] MEDS: POLYETHYLENE (MIRALAX) 17 GM PACK PO SCH (08:32)
[2019-05-23] MEDS: FERROUS SULFATE 325 MG TAB PO SCH (08:32)
[2019-05-23] MEDS: LINACLOTIDE 72 MCG CAPSULE PO SCH (08:32)
[2019-05-23] MEDS: SACCHAROMYCES BOULARDII 250 MG CAP PO SCH (08:32)
[2019-05-23] MEDS: MULTIVITAMIN TAB PO SCH (08:32)
[2019-05-23] MEDS: PANTOprazole 40 MG TAB PO SCH (08:32)
[2019-05-23] MEDS: FLUOXETINE HCL 20 MG CAP PO SCH (08:32)
[2019-05-23] MEDS: cefTRIAXone SODIUM 2,000 MG in DEXTROSE 5% 50 ML IV SCH (09:44)
--- NOTE | 2019-05-23 12:41 | Discharge Summary ---
Date of Service May 23, 2019 Admission HPI Per Admitting Provider Patient is a 59-year-old man with past medical history significant for paraplegia at level T7 a which he developed 1979, hypertension hyperlipidemia GERD Beck's esophagus, indwelling Camp catheter with frequent UTIs who is here today for what he believes is a severe UTI with fevers, feeling generally unwell, and nausea and vomiting all day yesterday. Patient is noted that his urine has become much darker and has a foul smell. He says is never seen urine this dark. He denies any pain, any current nausea, any chills, any lightheadedness, he said he is feeling confused earlier but does not feel confused at the moment. On admission to emergency department patient was found to be hypotensive at 78/50, this was improved with 2 L bolus in the emergency department. Lab work was significant for a white count of 24.1, platelet count of 47, potassium 3.1, and a creatinine of 3.25 greatly elevated from a baseline of around 0.6. Urinalysis significant for 3+ blood 3+ leuk esterase and greater than 30 white blood cells per high-power field abdomen pelvis CT showing obstructing 3 mm stone at the ureteral vesicular junction causing moderate hydro- ureteronephrosis. Emergency department doctor discussed case with urology who recommended continued IV fluids, broad-spectrum antibiotics, and to make the patient n.p.o. for possible intervention tomorrow. Patient lives at home with his , is a non-smoker, nondrinker nondrug user patient also notes a review of systems that he has become more short of breath over the past 3 years as he has become more sedentary, no acute shortness of breath no chest pain Admission Exam Per Admitting Provider Constitutional: 51-year-old man, lying in bed in no apparent distress. Patient appears stated age, legs markedly atrophied and motionless arms much more developed patient conversing easily Eyes: Extraocular muscle movements intact, pupils equal round reactive to light and accommodation bilaterally ENMT: No mass detected Respiratory: Chest motion equal lung sounds vesicular throughout, no wheezes rhonchi or rails Cardiovascular: Regular rate regular rhythm strong peripheral pulses bilaterally, no murmurs rubs skips or gallops no lower limb edema noted GI: Abdomen with several surgical scars, abdomen soft nontender though slightly enlarged patient feels that that is distended Neuro: Patient awake alert and oriented x4, no focal neurologic abnormalities, tea bag 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 tender strength intact and equal bilaterally Principal Diagnosis Urosepsis secondary to obstruction from B/L ureterolithiasis Discharge Exam Constitutional WD/WN, vitals as above Eyes + anicteric sclerae ENMT external ear and nose normal, oropharynx normal Neck normal visual inspection and trachea midline Respiratory normal respiratory effort, lungs clear to auscultation Auscultation: no crackles, no rales, no rhonchi and no wheezes Cardiovascular RRR, no murmur, no edema Heart Sounds: normal S1 and normal S2 Gastrointestinal (Abdomen) normal bowel sounds, soft, nontender, no hepatosplenomegaly Skin no rashes, warm and dry Psychiatric A+Ox3, euthymic affect Discharge Data Allergies Allergy/AdvReac Type Severity Reaction Status Date / Time ibuprofen AdvReac Intermediate GI Bleed Verified 05/21/19 11:45 caffeine AdvReac Unknown Gastrointestinal Verified 05/21/19 11:45 Upset Consultations 05/21/19 00:11 ED Decision to Admit Stat 05/21/19 01:46 Consult Urology Routine Procedures Performed Operation Date: 05/21/19 10:55 Actual Procedures p Cystoscopy, Bilateral Retrograde pyelography, Right Semirigid diagnostic ureteroscopy, Extraction of Bladder calculi and Left ureteral calculi(Bilateral) - Hans Espana MD Ordered Studies 05/20/19 22:42 CT abd pelvis wo con Urgent 05/21/19 12:00 FL retrograde includes kub Routine Hospital Course (1) Acute renal failure (ARF): Ulysses Guardado is a 59-year-old man with a past medical history of T7 paraplegia who has a neurogenic bladder requiring chronic Camp catheterization, admitted 05/19 with urosepsis. Sepsis - SIRS criteria met on admission - source likely urinary: UA 2+ leuk est, culture showed likely skin yessi, A/P CT scan showing bilaterally obstructive ureterolithiasis and hydronephrosis - blood cultures no growth after 48 hours. - WBC stable - lactate normal - patient was been volume resuscitated; hemodynamically stable without need for pressors - Antibiotic coverage was deescalated from Imipenem to Ceftriaxone, will be discharged on 5 days of Cefdinir 300mg BID. 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 Bilateral Ureterolithiasis - bilateral 6mm obstructive ureteral stones with resulting hydronephrosis - POD #2 s/p cystoscopy, b/l Retrograde pyelography, right ureteroscopy, extraction of bladder calculi and left ureteral calculi - stones sent for analysis - will follow up with urology as an outpatient Acute kidney injury - resolved - Cr 3.25 on admission, down to 0.7 on discharge. - etiology: pre-renal vs. intra-renal vs. post-renal - patient has risk factors for all of the above - bilateral obstructive stones was strong risk factor for post-renal etiology - history of recent vomiting and hypoperfusion in the setting of SIRS is risk factor for pre-renal etiology - ATN possible but less likely given rapidity of improvement in Cr with IV fluid boluses - volume resuscitation, antimicrobial therapy and removal of obstruction as above Hypokalemia -resolved - 3.0 on admission, up to 4.3 on discharge. Anemia - suspected etiology: dilutional - urine grossly appearing more clear compared to admission - Hx of Fe deficiency anemia; continue ferrous sulfate supplement 325mg daily Constipation - moderate stool noted in bowel on A/p CT scan - scheduled Miralax GERD - continued protonix 40mg BID Hyperlipidemia - continued atorvastatin 20mg daily Chronic back pain - continued home percocet prn Hypertension -Patient had some elevated BP's in the 190/100's -Patient does take Metoprolol 12.5mg and Lisinopril 5mg at home, but was not given this inpatient as it was not on his med list -Would expect his BP to normalize entirely once he restarts those upon discharge. -Patient was asymptomatic for the short durations of his elevated BP. (2) Acute dehydration: (3) Acute hypotension: (4) Left ureteral stone: (5) Hydroureteronephrosis: (6) Neurogenic bladder: (7) UTI (urinary tract infection): Total Time Total Time Spent Total Time Spent (In Minutes): <30 Discharge Plan Discharge Items Patient Disposition: Home - Self-Care Reason For Visit: UROSEPSIS,OBSTRUCTING STONE IN URETER Discharge Diagnosis: Kidney stones, urinary tract infection Activity: Resume your previous activity Non-emergency contact: Primary Care Provider and Urologist Call non-emergency contact if: your symptoms worsen Follow-up/Referrals: Zenaida Flanagan PA-C [Primary Care Provider] - Diet: Heart Healthy Addtl Attending Provider Instructions: You were hospitalized for a urinary tract infection. The infection was caused by two kidney stones that were blocking the outflow of urine from your kidneys to your bladder. Your neurogenic bladder, or the impairment of the nerves innervating your bladder muscle, is predisposing you to develop urinary tract infections. Urology was consulted during your hospital stay and removed several of the stones. The stones were sent to the laboratory for analysis - knowing the composition of your stones can be helpful in making dietary modifications in order to reduce recurrence of stone formation. Your kidney function improved after this procedure and your infection began to clear. We recommend you continue to take the antibiotic Cefdinir 300mg twice a day for 5 days after discharge. We recommend you also take on over the counter probiotic supplement to help reduce the risk of secondary bacterial infection in your gut. As discussed, we will also start you on a Cranberry tablet you can take twice a day by mouth. Please follow up with urology as directed. Typically, we would recommend following up with your primary care doctor within one week of discharge. However, given the nationwide concerns of COVID 19, or the coronavirus, many medical offices are closing or have reduced hours. Please continue to take all your remaining home medications, including your blood pressure medications, as prescribed. Pending Studies at Discharge: No Stand-Alone Forms: My [facility] [employer], Opioid Pain Management, Smoking Cessation Medications and DC Order Prescriptions: New cefdinir 300 mg capsule 300 mg PO BID 5 Days Qty: 10 RF: 0 cranberry extract 650 mg capsule 600 mg PO BID 30 Days Qty: 60 RF: 1 Continued multivitamin Tablet 1 tab PO QAM RF: 0 atorvastatin 20 mg Tablet 20 mg PO HS RF: 0 omeprazole 40 mg Capsule,Delayed Release(Dr/Ec) 40 mg PO BID RF: 0 aspirin [Aspir-Low] 81 mg Tablet,Delayed Release (Dr/Ec) 81 mg PO QAM RF: 0 oxycodone-acetaminophen 10-325 mg Tablet 1 tab PO Q6H PRN (Reason: Pain) RF: 0 ferrous sulfate [iron] 325 mg (65 mg iron) Tablet 325 mg PO QAM RF: 0 zolpidem [Ambien] 10 mg Tablet 10 mg PO HS RF: 0 Linzess 145 mcg Capsule 145 mcg PO QAM RF: 0 triamcinolone acetonide 0.1 % cream 1 applic TOPICAL BID RF: 0 fluoxetine 60 mg tablet 60 mg PO QAM RF: 0 amitriptyline 50 mg Tablet 50 mg PO HS RF: 0 Discontinued nitrofurantoin macrocrystal 100 mg capsule 100 mg PO DAILY RF: 0 Discharge Orders: Discharge Order (Routine); Ordered 05/23/19 Ordered By: Kaiden Riley/Other Patient Handouts: Cefdinir capsules Admission Data Admit Date/Time: 05/21/19 01:11 Attending Provider: Geronimo Mckinney Admit Provider: Aly Gibson Primary Care Provider: Zenaida Flanagan Other Providers: Jah Palencia ; Hans Espana I. Other Interventions: Discharge Summary Assessment (RN) Last Done: 05/23/19 12:57 DC Date/Time DO NOT enter until pt leaves facility: 05/23/19 14:45 Supervising Physician Co-Signing Physician Notes I personally examined the patient and verified all pleitez points of history and exam, discussed case, and agree with decision making with Dr Wolfe. feeling good, eating well, would like to go home. vitals noted nad heent nc at mmm breathing unlabored no accessory muscles good effort skin no rashes no pallor or icterus, lungs clear. sepsis / early septic shock now improved s/p volume resuscitaiton - related to b/l ureterolithiasis/infection primarily related to cath associated UTI/chronic neurogenic bladder - initially on priamxin given shocky on admit and high risk for bacteremia - cultures unfortunately only growing skin yessi, but with rapid improvement changed to ceftriaxone to prevent complications from ongoing overly broad coverage (Cdiff, resistance, longer LOS) now that he's improved/stabilized. did well on ceftriaxone, stable for home on cefdinir. more complex is question of suppressive antibiotics given ongoing stones and repeated infections -- since 2 of his prior 3 cultures are resistant to nitrofurantoin, the "easy" answer for suppression seems unlikely to be helpful; beta lactam coverage or broader coverage risks developing resistance to abx needed for active infections so would hesitate to do that unless truly necessary; given all this, while cranberry tabs are low benefit they're nearly zero risk, so will attempt proph with that for the time being. HTN -BP meds held when shocky - now stable/OK for home- resume home meds at discharge (metoprolol, lisinopril) Resident Activity Tracking Resident Involvement: Resident Care Provided Care Provided: Adult Hospital Medicine
[2019-05-23 13:00] VITALS: BP 172/112; PULSE 92
--- NOTE | 2019-05-23 15:16 | Billing Data ---
Date of Service May 23, 2019 Coding Level of Care Code D/C Day Management <30 mins
--- NOTE | 2019-05-23 15:16 | Billing Data ---
Date of Service May 23, 2019 Coding Level of Care Code D/C Day Management <30 mins
[2019-05-25 10:05] LABS: Calculus Nidus Not Observed; Component 2 DNR; Source LEFT URETERAL STONE
== END 2019-05-23 14:45 | disposition home or self-care (01) | DRG 668 ==
LOC: ED 20:31 → SUATTDRO 05-21 01:11 → 3E 05-21 01:11

== ENCOUNTER 2019-07-16 17:26 | Inpatient (IN) ==
[2019-07-16] MEDS ORDERED: PROCHLORPERAZINE 1 ML IV ONE (18:00)
[2019-07-16] MEDS ORDERED: SODIUM CHLORIDE 0.9% 1000ML 1,000 ML IV ONE ×2 (18:05→19:15)
--- NOTE | 2019-07-16 18:14 | Emergency Department Note ---
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 (UA) Negative (Negative) Urine Ketones Negative (Negative) Urine Blood 3+ H (Negative) Urine Nitrite Negative (Negative) Urine Bilirubin Negative (Negative) Urine Urobilinogen Negative (Negative) Ur Leukocyte Esterase 3+ H (Negative) Urine WBC (Auto) >30 H (0-5) /hpf Urine RBC (Auto) >30 H (0-4) /hpf U Hyaline Cast (Auto) 1-5 (0-5) /lpf U Epithel Cells (Auto) >30 H (0-5) /lpf Urine Bacteria (Auto) 4+ H (Negative) Urine Yeast Not Reportable Administered Medications Sodium Chloride (Nss 1000ml) 1,000 mls @ 120 mls/hr IV .Q8H20M [facility] Stop: 08/15/19 23:27 Last Admin: 07/16/19 23:58 Dose: 120 mls/hr Documented by: [id number] Oxycodone/Acetaminophen (Percocet 10/325mg) 1 tab PO Q6H PRN PRN Reason: Pain Stop: 07/30/19 20:14 Last Admin: 07/16/19 20:31 Dose: 1 tab Documented by: [id number] Zolpidem Tartrate (Ambien) 10 mg PO HS [facility] Stop: 08/15/19 23:27 Last Admin: 07/16/19 23:57 Dose: 10 mg Documented by: [id number] Discontinued Medications Prochlorperazine (Compazine) 1 mls @ 1 mls/min IV ONE ONE Stop: 07/16/19 18:01 Last Admin: 07/16/19 18:36 Dose: 1 mls/min Documented by: [id number] Sodium Chloride (Nss 1000ml) 1,000 mls @ 999 mls/hr IV .Q1H1M ONE Stop: 07/16/19 19:05 Last Infusion: 07/16/19 19:28 Dose: 0 mls/hr Documented by: [id number] Admin: 07/16/19 18:36 Dose: 999 mls/hr Documented by: [id number] Cefepime HCl (Maxipime) 2,000 mg in 20 mls @ 5 mls/min IV NOW STA; Protocol Stop: 07/16/19 18:18 Last Admin: 07/16/19 18:36 Dose: 5 mls/min Documented by: [id number] Vancomycin HCl 1,500 mg/ (Sodium Chloride) 530 mls @ 200 mls/hr IV NOW ONE Stop: 07/16/19 21:23 Last Infusion: 07/16/19 22:13 Dose: 0 mls/hr Documented by: [id number] Admin: 07/16/19 19:28 Dose: 200 mls/hr Documented by: [id number] Sodium Chloride (Nss 1000ml) 1,000 mls @ 999 mls/hr IV .Q1H1M ONE Stop: 07/16/19 20:15 Last Infusion: 07/16/19 20:34 Dose: 0 mls/hr Documented by: [id number] Admin: 07/16/19 19:28 Dose: 999 mls/hr Documented by: [id number] Lactated Ringer's (Lr) 1,000 mls @ 125 mls/hr IV .Q8H [facility] Stop: 08/15/19 21:14 Last Infusion: 07/16/19 23:41 Dose: 0 mls/hr Documented by: [id number] Admin: 07/16/19 21:13 Dose: 125 mls/hr Documented by: [id number] Morphine Sulfate (Morphine Sulfate) 2 mg IV NOW ONE Stop: 07/16/19 23:47 Last Admin: 07/16/19 23:57 Dose: 2 mg Documented by: [id number] Blood Pressure Blood Pressure Findings: Low blood pressure Blood Pressure Disposition: further management by hospitalist Discharge Plan Visit Data Chief Complaint: Unable to Void Stated Complaint: UNABLE TO PEE ALL NIGHT, THEN 800 CC ALL AT ONCE ED Provider: Travon Bridges Discharge Problem: Sepsis, Acute renal failure, Obstructive nephropathy, Complicated urinary tract infection, Ureterolithiasis Discharge Instructions Interventions: ED Discharge Assessment Last Done: 07/16/19 22:35 Discharge Problem: Sepsis Qualifiers: Sepsis type: sepsis due to unspecified organism Sepsis acute organ dysfunction status: with acute organ dysfunction Severe sepsis acute organ dysfunction type: acute renal failure Acute renal failure type: unspecified Severe sepsis shock status: without septic shock Qualified Code(s): A41.9 - Sepsis, unspecified organism Acute renal failure Qualifiers: Acute renal failure type: unspecified Qualified Code(s): N17.9 - Acute kidney failure, unspecified
[2019-07-16] MEDS ORDERED: VANCOMYCIN HCL 1,600 MG in SODIUM CHLORIDE 0.9% 500 ML IV ONE (18:15)
[2019-07-16] MEDS ORDERED: VANCOMYCIN CONSULT ACTIVE PRN (18:15)
[2019-07-16] MEDS ORDERED: CEFEPIME 2,000 MG/20 ML VIAL IV STA (18:15)
[2019-07-16 18:31] LABS: Hematocrit (blood only) 47.7 % (42-52); Hemoglobin 16.1 g/dL (14.0-18.0); Mean Corpuscular Hemoglobin 30.8 pg (25-34); Mean Corpuscular Hgb Conc 33.8 g/dL (32-36); Mean Corpuscular Volume 91.4 fL (80-100); Mean Platelet Volume 10.1 fL (7.4-10.4); Platelet Count 373 K/uL (130-400); RDW Standard Deviation 53.7 fL (36.4-46.3); Red Blood Count 5.22 M/uL (4.7-6.1); White Blood Count 29.39 K/uL (4.8-10.8)
[2019-07-16 18:39] LABS: iSTAT Creatinine 3.1 mg/dl (0.6-1.3); iSTAT Hemoglobin 18.4 g/dl (14.0-18.0); iSTAT Ionized Calcium 1.18 mmol/l (1.12-1.32); iSTAT Potassium 4.2 mmol/L (3.3-5.0)
[2019-07-16 18:45] LABS: INR 1.1 (0.9-1.1); Partial Thromboplastin Ratio 1.1; Partial Thromboplastin Time 31.6 Seconds (21.0-31.0); Prothrombin Time 11.5 Seconds (9.0-12.0)
[2019-07-16] MEDS ORDERED: VANCOMYCIN HCL 1,500 MG in SODIUM CHLORIDE 0.9% 500 ML IV ONE (18:45)
[2019-07-16 18:55] LABS: HCO3 VBG 19 mmol/L; PCO2 VBG 38 mmHg (38-50); PO2 VBG 33 mmHg; pH VBG 7.31 (7.36-7.41)
[2019-07-16 19:04] LABS: Basophils # (auto) 0.04 K/uL (0-0.2); Basophils % (auto) 0.1 %; Immature Granulocytes # (auto) 0.12 K/uL (0.00-0.02); Immature Granulocytes % (auto) 0.4 %; Lymphocytes # (auto) 1.01 K/uL (1.2-3.4); Lymphocytes % (auto) 3.4 %; Monocytes # (auto) 1.01 K/uL (0.11-0.59); Monocytes % (auto) 3.4 %; Neutrophils # (auto) 27.21 K/uL (1.4-6.5); Neutrophils % (auto) 92.7 %
[2019-07-16 19:05] LABS: BUN Creatinine Ratio 13.3 (10-20); Blood Urea Nitrogen 43 mg/dl (7-18); Carbon Dioxide 16 mmol/L (21-32); Chloride 101 mmol/L (98-107); Creatinine Clr Calc Pharmacy 26.9 ml/min; Est GFR (African American) 22.9; Est GFR (Non-African American) 19.8; Glucose 206 mg/dl (70-99); Magnesium 1.8 mg/dl (1.8-2.4); Potassium 4.1 mmol/L (3.5-5.1); Sodium 133 mmol/L (136-145)
[2019-07-16 19:06] LABS: Alanine Aminotransferase 27 U/L (12-78); Albumin Level 2.8 gm/dl (3.4-5.0); Aspartate Aminotransferase 19 U/L (15-37); Bilirubin Direct 0.1 mg/dl (0-0.2)
[2019-07-16 19:11] LABS: Albumin Globulin Ratio 0.6 (0.9-2); Alkaline Phosphatase 125 U/L (45-117); Bilirubin,Total 0.3 mg/dl (0.2-1); Globulin 4.8 gm/dl (2.5-4.0); Phosphorus 5.3 mg/dl (2.5-4.9); Total Protein 7.6 gm/dl (6.4-8.2); Troponin I < 0.015 ng/ml (0-0.045)
--- NOTE | 2019-07-16 19:21 | XRay Report ---
XR chest 1V portable CLINICAL HISTORY: Sepsis. COMPARISON STUDY: Chest radiograph March 14, 2019. FINDINGS: Lung volumes are normal. Lungs are clear. There is no pneumothorax or pleural effusion. Car diac size is normal. Mediastinal contours are normal. There is no evidence for pulmonary edema. Posto perative findings within the right humerus and thoracic spine are unchanged. A hiatal hernia is noted . IMPRESSION: No acute cardiopulmonary findings. No change in appearance of the chest. ACT 112: Negative or not required by law. Electronically signed by: Omar Fisher M.D. 07/16/2019 7:19 PM
[2019-07-16 19:30] LABS: Oxygen Saturation VBG < 60.0 %
--- NOTE | 2019-07-16 19:37 | CT Scan Report ---
CT OF THE ABDOMEN AND PELVIS WITHOUT CONTRAST CLINICAL HISTORY: Transiently block garrison catheter, sepsis. COMPARISON STUDY: CT of the abdomen and pelvis May 20, 2019. TECHNIQUE: Axial images of the abdomen and pelvis were obtained without IV contrast. Images were revi ewed in the axial, sagittal, and coronal planes. Automated exposure control was utilized for the yaya dy. A dose lowering technique was utilized adhering to the principles of ALARA. FINDINGS: Lung bases are unremarkable. No pneumatosis, free air or portal venous gas is present. Ther e is no significant biliary ductal dilatation status post cholecystectomy. Postoperative findings wit hin the stomach are noted. A few splenules are noted. The adrenal glands and pancreas are unremarkabl e on this unenhanced examination. There is no peripancreatic infiltration. Rectosigmoid wall thickeni ng is unchanged. There is no evidence for a bowel obstruction. Mild gaseous distention of the colon i s noted without transition point. A moderate amount stool within the rectum is noted. There is also a moderate amount stool within the colon. Chronic deformity of the pelvis and hips is noted. Severe right hydroureteronephrosis is noted. There is a nonobstructing 8 mm distal right ureteral mike culus. In addition, a 6 cm calculus projecting over the right posterior aspect of the bladder. Modera te left hydroureteronephrosis is noted. No left ureteral calculi are identified. There is a small zeny unt of gas within the distal left ureter. Multiple small right renal calculi are present. Left renal calculi measure up to 6 mm peripheral balloon is present within the bladder which is collapsed. Bladd er wall thickening is noted. There is moderate infiltration and fluid adjacent to the bladder. There is no extraluminal gas. No lymphadenopathy is present. No suspicious osseous lesions are present. IMPRESSION: 1. Severe right and moderate left hydroureteronephrosis. 6 mm calculus projects over the right front end mechanic ior aspect of the bladder and favors a ureterovesical junction calculus. A bladder calculus could yoandy ear similar. Etiology for left sided dilatation not clear on this exam. Bilateral nephrolithiasis. 2. Garrison balloon within the bladder which is collapsed. Bladder wall thickening and moderate fluid an d infiltration adjacent to the bladder. The findings suggest cystitis. Gas within the bladder and dis balaji left ureter is likely related to Garrison insertion. 3. Moderate amount of stool within the rectum and colon without evidence for a bowel obstruction. No change in rectosigmoid wall thickening. ACT 112: Negative or not required by law. Electronically signed by: Omar Fisher M.D. 07/16/2019 7:36 PM
[2019-07-16 19:55] LABS: Appearance Urine Turbid (Clear); Bacteria Urine Automated 4+ (Negative); Bilirubin Urine Negative (Negative); Blood Urine 3+ (Negative); Color Urine Orange; Epithelial Cell Urine Auto >30 /lpf (0-5); Glucose Urine UA Negative (Negative); Ketones Urine Negative (Negative); Leukocyte Esterase Urine 3+ (Negative); Nitrite Urine Negative (Negative); Specific Gravity Urine 1.016 (1.000-1.030); Urobilinogen Urine Negative (Negative); WBC Urine Automated >30 /hpf (0-5)
[2019-07-16 20:06] LABS: Protein Urine 3+ (Negative); Sulfosalicylic Acid Urine Positive (Negative)
[2019-07-16 20:10] LABS: RBC Urine Automated >30 /hpf (0-4)
[2019-07-16] MEDS: OXYCODONE/ACETAMINOPHEN 10-325 TAB PO PRN (20:31)
[2019-07-16] MEDS ORDERED: LACTATED RINGER'S 1,000 ML IV SCH (21:15)
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
[2019-07-16 23:16] LABS: BUN Creatinine Ratio 18.8 (10-20); Calcium 6.3 mg/dl (8.5-10.1); Creatinine Clr Calc Pharmacy 45.9 ml/min; Est GFR (African American) 43.8; Est GFR (Non-African American) 37.8; Potassium 3.2 mmol/L (3.5-5.1)
[2019-07-16] MEDS ORDERED: POLYETHYLENE (MIRALAX) 17 GM PACK PO PRN (23:28)
[2019-07-16] MEDS ORDERED: ONDANSETRON INJ 2 MG/ML 2 ML VIAL IV PRN (23:28)
[2019-07-16] MEDS ORDERED: CRANBERRY EXTRACT PO SCH (23:28)
[2019-07-16] MEDS ORDERED: MoRPHine SULFATE 2 MG/ML CARP IV ONE (23:46)
[2019-07-16] MEDS: ZOLPIDEM TARTRATE 10 MG TAB PO SCH (23:57)
[2019-07-16] MEDS: SODIUM CHLORIDE 0.9% 1000ML 1,000 ML IV SCH (23:58)
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
[2019-07-17] MEDS: TRIAMCINOLONE ACET 0.1% CR 15 GM TUBE TOP SCH ×3 (00:46→20:17)
[2019-07-17] MEDS: AMITRIPTYLINE HCL 50 MG TAB PO SCH ×2 (00:46→20:17)
[2019-07-17] MEDS: ATORVASTATIN 20 MG TAB PO SCH ×2 (00:46→20:17)
[2019-07-17] MEDS: PANTOprazole 40 MG TAB PO SCH ×3 (00:46→20:17)
--- NOTE | 2019-07-17 07:15 | XRay Report ---
XR KUB/Abdomen 1 view CLINICAL HISTORY: 59 years-old Male presenting with stones. TECHNIQUE: Single supine view of the abdomen was obtained. COMPARISON: CT from 07/16/2019. FINDINGS: Moderate stool burden throughout the colon. Gaseous distention of large bowel as on prior. Scattered mild gaseous distention of small bowel. No convincing evidence of obstruction. No gross pneumoperiton eum. A suture material or anastomotic line projects over the central abdomen. Cholecystectomy clips. The gas and stool burden obscures the renal shadows. Calculi noted at the lower pole the left kidney. At least one of the distal right ureteral calculi is suggested. The calculus at the right ureteroves ical junction is difficult to identify given extensive prostatic calcifications. Degenerative changes of the spine. Degenerative changes of the hips. IMPRESSION: 1. Persistent distal right ureteral calculus. 2. The previously noted calculus at the right ureterovesical junction is not identified with evaluat ion complicated by prostatic calcifications. Passage of the UVJ calculus is also possible. 3. Stool burden suggests constipation. 4. No convincing bowel obstruction. ACT 112: Negative or not required by law. Electronically signed by: Ridge Hopkins M.D. 07/17/2019 7:13 AM
[2019-07-17] MEDS: SODIUM CHLORIDE 0.9% 1000ML 1,000 ML IV SCH ×2 (07:53→15:39)
[2019-07-17] MEDS: LINACLOTIDE 72 MCG CAPSULE PO SCH (07:54)
[2019-07-17] MEDS: MULTIVITAMIN TAB PO SCH (07:54)
[2019-07-17] MEDS: FERROUS SULFATE 325 MG TAB PO SCH (07:54)
[2019-07-17] MEDS: FLUOXETINE HCL 20 MG CAP PO SCH (07:54)
[2019-07-17] MEDS ORDERED: CEFEPIME 1,000 MG in SYRINGE 0 ML IV SCH (09:00)
[2019-07-17 09:09] LABS: Basophils # (auto) 0.05 K/uL (0-0.2); Basophils % (auto) 0.2 %; Eosinophils # (auto) 0.12 K/uL (0-0.5); Eosinophils % (auto) 0.6 %; Hematocrit (blood only) 38.4 % (42-52); Hemoglobin 12.6 g/dL (14.0-18.0); Immature Granulocytes # (auto) 0.07 K/uL (0.00-0.02); Immature Granulocytes % (auto) 0.3 %; Lymphocytes # (auto) 1.39 K/uL (1.2-3.4); Lymphocytes % (auto) 6.9 %; Mean Corpuscular Hemoglobin 29.6 pg (25-34); Mean Corpuscular Hgb Conc 32.8 g/dL (32-36); Mean Corpuscular Volume 90.1 fL (80-100); Mean Platelet Volume 9.8 fL (7.4-10.4); Monocytes # (auto) 0.91 K/uL (0.11-0.59); Monocytes % (auto) 4.5 %; Neutrophils # (auto) 17.72 K/uL (1.4-6.5); Neutrophils % (auto) 87.5 %; Platelet Count 311 K/uL (130-400); RDW Coefficient of Variation 15.9 % (11.5-14.5); RDW Standard Deviation 52.3 fL (36.4-46.3); Red Blood Count 4.26 M/uL (4.7-6.1); White Blood Count 20.26 K/uL (4.8-10.8)
[2019-07-17 09:15] LABS: BUN Creatinine Ratio 29.6 (10-20); Creatinine Clr Calc Pharmacy 79.8 ml/min; Est GFR (African American) 81.7; Est GFR (Non-African American) 70.5; Potassium 3.6 mmol/L (3.5-5.1)
--- NOTE | 2019-07-17 09:37 | Urology Progress Note ---
Date of Service July 17, 2019 Subjective Hospital day #1 Temperature 36.9 Blood pressure 132/87 Patient says he feels much better he has no flank pain but again he does not have sensation below T7 Urine output is excellent urine is clear he seems to be having a postobstructive diuresis White count is down to 20 Creatinine is normal at 1.1 Reviewed his KUB I believe the right ureterovesical junction stone has probably passed he does still have a stone in the distal ureter which on CT scan was nonobstructing Urine cultures pending Assessment #1 urosepsis Clinically patient is improving with antibiotics Would continue these pending the urine culture #2 right ureteral stones On CT these were nonobstructing I believe he has passed the stone at the right ureteral orifice given the fact that he is having a postobstructive diuresis and I do not see it on KUB Discussed with patient that I think the best option would be to give him several days of IV antibiotics with the idea that on Saturday he would be taken to the operating room for ureteroscopy on the right Patient agrees with this plan If he were to develop another fever or shaking chills or decompensate he may need to have a stent placed more emergently Results & Data Vital Signs (Past 12 Hours) Vital Signs Temp Pulse Pulse Resp BP BP Pulse Ox 07/17/19 09:00 106 H 07/17/19 08:07 36.9 C 97 H 18 132/87 95 07/17/19 03:00 36.9 C 99 H 20 124/81 96 07/17/19 01:27 37.3 C 84 20 94/67 L 95 07/17/19 00:38 89 07/16/19 22:01 125 H 22 102/60 95 Pulse Ox 07/17/19 09:00 07/17/19 08:07 07/17/19 03:00 07/17/19 01:27 95 07/17/19 00:38 07/16/19 22:01 PG Care Time/CCT Total # of Minutes Spent Total Time Spent with Patient: Total time spent is greater than 50% in coordination of care (as documented) at patient's floor/unit and/or counseling patient: Coding Level of Care Code 03618 Subseq Hosp Care Lvl 1
[2019-07-17] MEDS: CEFEPIME 2,000 MG in SYRINGE 7.5 ML IV SCH ×2 (10:44→17:32)
[2019-07-17] MEDS: OXYCODONE/ACETAMINOPHEN 10-325 TAB PO PRN ×2 (10:44→16:44)
--- NOTE | 2019-07-17 12:14 | Hospitalist Progress Note ---
Date of Service July 17, 2019 Assessment & Plan (1) Sepsis: due to UTI, urine culture growing gram negative bacilli taper to just Cefepime WBC down to 20k from 29k, repeat tomorrow no fever vitals stable, no signs of shock (2) Catheter-associated urinary tract infection: had chronic garrison due to neurogenic bladder from spinal cord injury in 1979 continue Cefepime, responding well urine culture with GN bacilli (3) Acute renal failure: quickly improving, Cr down to 1.1, nearly resolved making adequate urine electrolytes stable continue fluids today, likely d/c tomorrow (4) Obstructive nephropathy: resolved, may have passed stone plan for cystoscopy on Saturday with urology (5) Neurogenic bladder: chronic issue due to spinal cord injury in 1979 (6) Hyperlipidemia: Lipitor (7) Depression: continue Fluoxetine 60mg Admission and Anticipated Discharge Date Admission Date: July 16, 2019 Subjective patient feels a lot better today, sitting up in bed, eating lunch, no pain, no distress he is making a lot of urine via garrison no fever, WBC down to 20k from 29k, Cr down to 1.1 from 3.26 on admission, HCO3 coming up to [address] Sim, plan for IV fluids and antibiotics this weekend plan for cystoscopy on Saturday, patient is agreeable Review of Systems Review of Systems: All systems reviewed & are unremarkable except as noted in HPI & below Physical Exam Constitutional: WD/WN, vitals as above Eyes: PERRL, conjunctivae normal, anicteric sclerae ENMT: external ear and nose normal, oropharynx normal Neck: trachea midline, no thyromegaly Respiratory: normal respiratory effort, lungs clear to auscultation Cardiovascular: RRR, no murmur, no edema Gastrointestinal (Abdomen): normal bowel sounds, soft, nontender, no hepatosplenomegaly Musculoskeletal: Head/Neck/Chest: normocephalic and head atraumatic Extremities: + abnormal strength (paralyzed below the waist); no cyanosis, no clubbing and no petechiae Skin: no rashes, warm and dry Neurologic: PERRL, EOMI, accommodation nl, no face palsy, no dysarthria + focal motor deficit (paralyzed below the waist) Psychiatric: A+Ox3, euthymic affect Lymphatic: no cervical or axillary lymphadenopathy Results & Data Results & Data ([facility]) Vital Signs (Past 12 Hours) Vital Signs Temp Pulse Pulse Resp BP Pulse Ox Pulse Ox 07/17/19 12:01 36.6 C 111 H 18 109/71 92 07/17/19 09:00 106 H 07/17/19 08:07 36.9 C 97 H 18 132/87 95 07/17/19 03:00 36.9 C 99 H 20 124/81 96 07/17/19 01:27 37.3 C 84 20 94/67 L 95 95 07/17/19 00:38 89 Laboratory Results Laboratory Results - last 24 hr 07/16/19 07/16/19 07/16/19 18:14 18:14 18:14 WBC 29.39 H RBC 5.22 Hgb 16.1 POC Hgb Hct 47.7 POC Hct MCV 91.4 MCH 30.8 MCHC 33.8 RDW Std Deviation 53.7 H RDW Coeff of Jigna 16.0 H Plt Count 373 MPV 10.1 Immature Gran % (Auto) 0.4 Neut % (Auto) 92.7 Lymph % (Auto) 3.4 Ada % (Auto) 3.4 Eos % (Auto) 0.0 Baso % (Auto) 0.1 Immature Gran # (Auto) 0.12 H Neut # (Auto) 27.21 H Lymph # (Auto) 1.01 L Ada # (Auto) 1.01 H Eos # (Auto) 0.00 Baso # (Auto) 0.04 PT 11.5 INR 1.1 APTT 31.6 H PTT Ratio 1.1 VBG pH VBG pCO2 VBG pO2 VBG HCO3 VBG O2 Saturation VBG Base Excess Barometric Pressure POC Sodium Sodium 133 L POC Potassium Potassium 4.1 POC Chloride Chloride 101 Carbon Dioxide 16 L POC Total CO2 Anion Gap 16.0 H POC Anion Gap POC BUN BUN 43 H Creatinine 3.26 H POC Creatinine Est Cr Clr Drug Dosing 26.9 Est GFR ( Amer) 22.9 Est GFR (Non-Af Amer) 19.8 BUN/Creatinine Ratio 13.3 Glucose 206 H POC Glucose (other) Lactate Calcium 9.0 POC Ioniz Calcium Russ Phosphorus 5.3 H Magnesium 1.8 Total Bilirubin 0.3 Direct Bilirubin 0.1 AST 19 ALT 27 Alkaline Phosphatase 125 H Troponin I < 0.015 Total Protein 7.6 Albumin 2.8 L Globulin 4.8 H Albumin/Globulin Ratio 0.6 L Procalcitonin Urine Color Urine Appearance Urine pH Ur Specific [place] Urine Protein Urine Glucose (UA) Urine Ketones Urine Blood Urine Nitrite Urine Bilirubin Urine Urobilinogen Ur Leukocyte Esterase Urine WBC (Auto) Urine RBC (Auto) U Hyaline Cast (Auto) U Epithel Cells (Auto) Urine Bacteria (Auto) Urine Yeast 07/16/19 07/16/19 07/16/19 18:14 18:14 18:14 WBC RBC Hgb POC Hgb Hct POC Hct MCV MCH MCHC RDW Std Deviation RDW Coeff of Jigna Plt Count MPV Immature Gran % (Auto) Neut % (Auto) Lymph % (Auto) Ada % (Auto) Eos % (Auto) Baso % (Auto) Immature Gran # (Auto) Neut # (Auto) Lymph # (Auto) Ada # (Auto) Eos # (Auto) Baso # (Auto) PT INR APTT PTT Ratio VBG pH 7.31 L VBG pCO2 38 VBG pO2 33 VBG HCO3 19 VBG O2 Saturation < 60.0 VBG Base Excess -7.0 Barometric Pressure 733.4 POC Sodium Sodium POC Potassium Potassium POC Chloride Chloride Carbon Dioxide POC Total CO2 Anion Gap POC Anion Gap POC BUN BUN Creatinine POC Creatinine Est Cr Clr Drug Dosing Est GFR ( Amer) Est GFR (Non-Af Amer) BUN/Creatinine Ratio Glucose POC Glucose (other) Lactate 5.6 H* Calcium POC Ioniz Calcium Russ Phosphorus Magnesium Total Bilirubin Direct Bilirubin AST ALT Alkaline Phosphatase Troponin I Total Protein Albumin Globulin Albumin/Globulin Ratio Procalcitonin 2.86 H Urine Color Urine Appearance Urine pH Ur Specific [place] Urine Protein Urine Glucose (UA) Urine Ketones Urine Blood Urine Nitrite Urine Bilirubin Urine Urobilinogen Ur Leukocyte Esterase Urine WBC (Auto) Urine RBC (Auto) U Hyaline Cast (Auto) U Epithel Cells (Auto) Urine Bacteria (Auto) Urine Yeast 07/16/19 07/16/19 07/16/19 18:27 19:33 20:34 WBC RBC Hgb POC Hgb 18.4 H Hct POC Hct 54 H MCV MCH MCHC RDW Std Deviation RDW Coeff of Jigna Plt Count MPV Immature Gran % (Auto) Neut % (Auto) Lymph % (Auto) Ada % (Auto) Eos % (Auto) Baso % (Auto) Immature Gran # (Auto) Neut # (Auto) Lymph # (Auto) Ada # (Auto) Eos # (Auto) Baso # (Auto) PT INR APTT PTT Ratio VBG pH VBG pCO2 VBG pO2 VBG HCO3 VBG O2 Saturation VBG Base Excess Barometric Pressure POC Sodium 134 L Sodium POC Potassium 4.2 Potassium POC Chloride 101 Chloride Carbon Dioxide POC Total CO2 17 L Anion Gap POC Anion Gap 22.0 POC BUN 39 H BUN Creatinine POC Creatinine 3.1 H Est Cr Clr Drug Dosing Est GFR ( Amer) Est GFR (Non-Af Amer) BUN/Creatinine Ratio Glucose POC Glucose (other) 205 H Lactate 2.2 H* Calcium POC Ioniz Calcium Russ 1.18 Phosphorus Magnesium Total Bilirubin Direct Bilirubin AST ALT Alkaline Phosphatase Troponin I Total Protein Albumin Globulin Albumin/Globulin Ratio Procalcitonin Urine Color [place] Urine Appearance Turbid A Urine pH 8.0 H Ur Specific [place] 1.016 Urine Protein 3+ H Urine Glucose (UA) Negative Urine Ketones Negative Urine Blood 3+ H Urine Nitrite Negative Urine Bilirubin Negative Urine Urobilinogen Negative Ur Leukocyte Esterase 3+ H Urine WBC (Auto) >30 H Urine RBC (Auto) >30 H U Hyaline Cast (Auto) 1-5 U Epithel Cells (Auto) >30 H Urine Bacteria (Auto) 4+ H Urine Yeast Not Reportable 07/16/19 07/17/19 07/17/19 22:21 08:43 08:43 WBC 20.26 H RBC 4.26 L Hgb 12.6 L D POC Hgb Hct 38.4 L POC Hct MCV 90.1 MCH 29.6 MCHC 32.8 RDW Std Deviation 52.3 H RDW Coeff of Jigna 15.9 H Plt Count 311 MPV 9.8 Immature Gran % (Auto) 0.3 Neut % (Auto) 87.5 Lymph % (Auto) 6.9 Ada % (Auto) 4.5 Eos % (Auto) 0.6 Baso % (Auto) 0.2 Immature Gran # (Auto) 0.07 H Neut # (Auto) 17.72 H Lymph # (Auto) 1.39 Ada # (Auto) 0.91 H Eos # (Auto) 0.12 Baso # (Auto) 0.05 PT INR APTT PTT Ratio VBG pH VBG pCO2 VBG pO2 VBG HCO3 VBG O2 Saturation VBG Base Excess Barometric Pressure POC Sodium Sodium 142 D 140 POC Potassium Potassium 3.2 L D 3.6 POC Chloride Chloride 116 H 113 H Carbon Dioxide 16 L 18 L POC Total CO2 Anion Gap 9.0 9.0 POC Anion Gap POC BUN BUN 36 H 34 H Creatinine 1.91 H D 1.14 D POC Creatinine Est Cr Clr Drug Dosing 45.9 79.8 Est GFR ( Amer) 43.8 81.7 Est GFR (Non-Af Amer) 37.8 70.5 BUN/Creatinine Ratio 18.8 29.6 H Glucose 113 H 95 POC Glucose (other) Lactate Calcium 6.3 L D 8.0 L D POC Ioniz Calcium Russ Phosphorus Magnesium Total Bilirubin Direct Bilirubin AST ALT Alkaline Phosphatase Troponin I Total Protein Albumin Globulin Albumin/Globulin Ratio Procalcitonin Urine Color Urine Appearance Urine pH Ur Specific [place] Urine Protein Urine Glucose (UA) Urine Ketones Urine Blood Urine Nitrite Urine Bilirubin Urine Urobilinogen Ur Leukocyte Esterase Urine WBC (Auto) Urine RBC (Auto) U Hyaline Cast (Auto) U Epithel Cells (Auto) Urine Bacteria (Auto) Urine Yeast Microbiology 07/16/19 19:33 Urine,Straight Cath Urine Culture - Preliminary Gram negative bacilli Medications Administered Current Inpatient Medications Acetaminophen (Tylenol) 650 mg PO Q4H PRN PRN Reason: Pain or Fever Stop: 08/15/19 23:27 Last Admin: 07/17/19 15:38 Dose: 650 mg Documented by: Amitriptyline HCl (Elavil) 50 mg PO [facility] Stop: 08/15/19 23:27 Last Admin: 07/17/19 00:46 Dose: 50 mg Documented by: Aspirin (Ecotrin Ectab) 81 mg PO [facility] Stop: 08/17/19 08:59 Atorvastatin Calcium (Lipitor) 20 mg PO [facility] Stop: 08/15/19 23:27 Last Admin: 07/17/19 00:46 Dose: 20 mg Documented by: Ferrous Sulfate (Feosol) 325 mg PO [facility] Stop: 08/16/19 08:59 Last Admin: 07/17/19 07:54 Dose: 325 mg Documented by: Fluoxetine HCl (Prozac) 60 mg PO [facility] Stop: 08/16/19 08:59 Last Admin: 07/17/19 07:54 Dose: 60 mg Documented by: Sodium Chloride (Nss 1000ml) 1,000 mls @ 120 mls/hr IV .Q8H20M [facility] Stop: 08/15/19 23:27 Last Admin: 07/17/19 15:39 Dose: 120 mls/hr Documented by: Cefepime HCl 2,000 mg/ Syringe 20 mls @ 5 mls/min IV Q8H [facility]; Protocol Stop: 07/27/19 09:59 Last Admin: 07/17/19 10:44 Dose: 5 mls/min Documented by: Linaclotide (Linzess) 144 mcg PO QAM [facility] Stop: 08/16/19 08:59 Last Admin: 07/17/19 07:54 Dose: 144 mcg Documented by: Multivitamins (Multivitamin Tab) 1 tab PO QAM [facility] Stop: 08/16/19 08:59 Last Admin: 07/17/19 07:54 Dose: 1 tab Documented by: Ondansetron HCl (Zofran) 4 mg IV Q6H PRN PRN Reason: Nausea Stop: 08/15/19 23:27 Oxycodone/Acetaminophen (Percocet 10/325mg) 1 tab PO Q6H PRN PRN Reason: Pain Stop: 07/30/19 20:14 Last Admin: 07/17/19 16:44 Dose: 1 tab Documented by: Pantoprazole Sodium (Protonix) 40 mg PO BID [facility] Stop: 08/15/19 23:37 Last Admin: 07/17/19 07:54 Dose: 40 mg Documented by: Polyethylene Glycol (Miralax Powder Packet) 17 gm PO DAILY PRN PRN Reason: Constipation Stop: 08/15/19 23:27 Triamcinolone Acetonide (Kenalog 0.1%) 1 appln TOP BID [facility] Stop: 08/15/19 23:27 Last Admin: 07/17/19 07:54 Dose: 1 appln Documented by: Zolpidem Tartrate (Ambien) 10 mg PO HS [facility] Stop: 08/15/19 23:27 Last Admin: 07/16/19 23:57 Dose: 10 mg Documented by: PG Care Time/CCT Total # of Minutes Spent Total Time Spent with Patient: Total time spent is greater than 50% in coordination of care (as documented) at patient's floor/unit and/or counseling patient: Coding Level of Care Code 63652 Subseq Hosp Care Lvl 3 Diagnoses Sepsis A41.9; R65.20; N17.9 Acute renal failure type: unspecified Sepsis acute organ dysfunction status: with acute organ dysfunction Sepsis type: sepsis due to unspecified organism Severe sepsis acute organ dysfunction type: acute renal failure Severe sepsis shock status: without septic shock Catheter-associated urinary tract infection T83.511A; N39.0 Acute renal failure N17.9 Acute renal failure type: unspecified Obstructive nephropathy N13.8 Neurogenic bladder N31.9 Hyperlipidemia E78.5 Depression F32.9 (1) Sepsis Acute renal failure type: unspecified Sepsis acute organ dysfunction status: with acute organ dysfunction Sepsis type: sepsis due to unspecified organism Severe sepsis acute organ dysfunction type: acute renal failure Severe sepsis shock status: without septic shock Qualified Code(s): A41.9 - Sepsis, unspecified organism; R65.20 - Severe sepsis without septic shock; N17.9 - Acute kidney failure, unspecified (2) Acute renal failure Acute renal failure type: unspecified Qualified Code(s): N17.9 - Acute kidney failure, unspecified
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
[2019-07-17] MEDS: ACETAMINOPHEN 325 MG TAB PO PRN (15:38)
--- NOTE | 2019-07-17 16:42 | Electrocardiogram Report ---
Test Reason : Blood Pressure : / mmHG Vent. Rate : 096 BPM Atrial Rate : 096 BPM P-R Int : 156 ms QRS Dur : 094 ms QT Int : 388 ms P-R-T Axes : 059 -49 043 degrees QTc Int : 490 ms Normal sinus rhythm Possible Left atrial enlargement Left axis deviation Incomplete right bundle branch block Cannot rule out Inferior infarct Abnormal ECG When compared with ECG of 21-MAY-2019 09:35, T wave inversion no longer evident in Anterolateral leads Confirmed by Phillip Gibbons ([id number]) on 07/17/2019 4:42:09 PM Referred By: REFERRED SELF Confirmed By:Phillip Gibbons
[2019-07-17] MEDS ORDERED: CEFEPIME 2,000 MG in SYRINGE 7.5 ML IV SCH (18:00)
[2019-07-17] MEDS: ZOLPIDEM TARTRATE 10 MG TAB PO SCH (22:07)
--- NOTE | 2019-07-17 23:37 | Billing Data ---
Date of Service July 17, 2019 Coding Level of Care Code 58414 Initial Inpt Care Lvl 3
[2019-07-18] MEDS: SODIUM CHLORIDE 0.9% 1000ML 1,000 ML IV SCH (00:42)
[2019-07-18] MEDS: OXYCODONE/ACETAMINOPHEN 10-325 TAB PO PRN ×4 (00:49→22:15)
[2019-07-18] MEDS: CEFEPIME 2,000 MG in SYRINGE 7.5 ML IV SCH ×2 (01:49→09:48)
[2019-07-18 08:09] LABS: Basophils # (auto) 0.06 K/uL (0-0.2); Basophils % (auto) 0.4 %; Eosinophils # (auto) 0.66 K/uL (0-0.5); Eosinophils % (auto) 4.5 %; Hematocrit (blood only) 36.1 % (42-52); Immature Granulocytes # (auto) 0.04 K/uL (0.00-0.02); Immature Granulocytes % (auto) 0.3 %; Lymphocytes % (auto) 8.2 %; Mean Corpuscular Hemoglobin 30.2 pg (25-34); Mean Corpuscular Hgb Conc 33.2 g/dL (32-36); Mean Corpuscular Volume 90.9 fL (80-100); Mean Platelet Volume 9.5 fL (7.4-10.4); Monocytes % (auto) 3.4 %; Neutrophils # (auto) 12.16 K/uL (1.4-6.5); Neutrophils % (auto) 83.2 %; Platelet Count 289 K/uL (130-400); RDW Standard Deviation 53.5 fL (36.4-46.3); Red Blood Count 3.97 M/uL (4.7-6.1); White Blood Count 14.62 K/uL (4.8-10.8)
[2019-07-18] MEDS: FERROUS SULFATE 325 MG TAB PO SCH (08:42)
[2019-07-18] MEDS: PANTOprazole 40 MG TAB PO SCH ×2 (08:43→20:28)
[2019-07-18] MEDS: ASPIRIN 81 MG ECTAB PO SCH (08:43)
[2019-07-18] MEDS: LINACLOTIDE 72 MCG CAPSULE PO SCH (08:43)
[2019-07-18] MEDS: FLUOXETINE HCL 20 MG CAP PO SCH (08:44)
[2019-07-18] MEDS: TRIAMCINOLONE ACET 0.1% CR 15 GM TUBE TOP SCH ×3 (08:44→20:59)
[2019-07-18] MEDS: MULTIVITAMIN TAB PO SCH (08:44)
[2019-07-18 09:04] LABS: BUN Creatinine Ratio 19.1 (10-20); Calcium 8.1 mg/dl (8.5-10.1); Creatinine Clr Calc Pharmacy 137.9 ml/min; Est GFR (African American) 123.5; Est GFR (Non-African American) 106.6; Potassium 3.8 mmol/L (3.5-5.1)
--- NOTE | 2019-07-18 14:20 | Hospitalist Progress Note ---
Date of Service July 18, 2019 Assessment & Plan (1) Sepsis: due to UTI, urine culture growing > 3 organisms, all high counts reviewed prior urine cultures: E coli that was resistant to quinolones and Proteus, perez sensitive taper to Rocephin WBC down to 14k from 29k, repeat tomorrow no fever vitals stable, no signs of shock (2) Acute renal failure: quickly improving, Cr down to 0.66, resolved making adequate urine electrolytes stable stop fluids today (3) Obstructive nephropathy: resolved, may have passed stone plan for cystoscopy on Saturday with urology (4) Complicated urinary tract infection: (5) Hydronephrosis due to obstruction of ureter: (6) Ureterolithiasis: (7) Right ureteral stone: Admission and Anticipated Discharge Date Admission Date: July 16, 2019 Subjective patient doing well, says that the food is really good no chest pain, no dyspnea, no cough, no fever/chills, no abdominal symptoms reviewed labs, Cr down to 0.66, electrolytes stable, WBC down to 14k urine culture has more than three organisms, all high counts will continue the Cefepime for now Review of Systems Review of Systems: All systems reviewed & are unremarkable except as noted in HPI & below Physical Exam Constitutional: WD/WN, vitals as above Eyes: PERRL, conjunctivae normal, anicteric sclerae ENMT: external ear and nose normal, oropharynx normal Neck: trachea midline, no thyromegaly Respiratory: normal respiratory effort, lungs clear to auscultation Cardiovascular: RRR, no murmur, no edema Gastrointestinal (Abdomen): normal bowel sounds, soft, nontender, no hepatosplenomegaly Musculoskeletal: Head/Neck/Chest: normocephalic and head atraumatic Extremities: + abnormal strength (paralyzed below the waist); no cyanosis, no clubbing and no petechiae Skin: no rashes, warm and dry Neurologic: PERRL, EOMI, accommodation nl, no face palsy, no dysarthria + focal motor deficit (paralyzed below the waist) Psychiatric: A+Ox3, euthymic affect Lymphatic: no cervical or axillary lymphadenopathy Results & Data Results & Data ([facility]) Vital Signs (Past 12 Hours) Vital Signs Temp Pulse Pulse Resp BP Pulse Ox 07/18/19 12:02 36.8 C 85 18 149/85 H 95 07/18/19 07:27 36.7 C 84 18 157/95 H 93 07/18/19 07:09 90 07/18/19 04:03 36.6 C 89 18 142/97 H 92 Laboratory Results Laboratory Results - last 24 hr 07/18/19 07/18/19 07:57 07:57 WBC 14.62 H RBC 3.97 L Hgb 12.0 L Hct 36.1 L MCV 90.9 MCH 30.2 MCHC 33.2 RDW Std Deviation 53.5 H RDW Coeff of Jigna 16.0 H Plt Count 289 MPV 9.5 Immature Gran % (Auto) 0.3 Neut % (Auto) 83.2 Lymph % (Auto) 8.2 [place] % (Auto) 3.4 Eos % (Auto) 4.5 Baso % (Auto) 0.4 Immature Gran # (Auto) 0.04 H Neut # (Auto) 12.16 H Lymph # (Auto) 1.20 [place] # (Auto) 0.50 Eos # (Auto) 0.66 H Baso # (Auto) 0.06 Sodium 142 Potassium 3.8 Chloride 112 H Carbon Dioxide 24 Anion Gap 6.0 BUN 13 D Creatinine 0.66 D Est Cr Clr Drug Dosing 137.9 Est GFR ( Amer) 123.5 Est GFR (Non-Af Amer) 106.6 BUN/Creatinine Ratio 19.1 Glucose 98 Calcium 8.1 L Medications Administered Current Inpatient Medications Acetaminophen (Tylenol) 650 mg PO Q4H PRN PRN Reason: Pain or Fever Stop: 08/15/19 23:27 Last Admin: 07/17/19 15:38 Dose: 650 mg Documented by: Amitriptyline HCl (Elavil) [address] [facility] Stop: 08/15/19 23:27 Last Admin: 07/17/19 20:17 Dose: 50 mg Documented by: Aspirin (Ecotrin Ectab) 81 mg PO [facility] Stop: 08/17/19 08:59 Last Admin: 07/18/19 08:43 Dose: 81 mg Documented by: Atorvastatin Calcium (Lipitor) [address] [facility] Stop: 08/15/19 23:27 Last Admin: 07/17/19 20:17 Dose: 20 mg Documented by: Ferrous Sulfate (Feosol) 325 mg PO [facility] Stop: 08/16/19 08:59 Last Admin: 07/18/19 08:42 Dose: 325 mg Documented by: Fluoxetine HCl (Prozac) 60 mg PO QAM [facility] Stop: 08/16/19 08:59 Last Admin: 07/18/19 08:44 Dose: 60 mg Documented by: Cefepime HCl 2,000 mg/ Syringe 20 mls @ 5 mls/min IV Q8H [facility]; Protocol Stop: 07/27/19 09:59 Last Admin: 07/18/19 09:48 Dose: 5 mls/min Documented by: Linaclotide (Linzess) 144 mcg PO QAM [facility] Stop: 08/16/19 08:59 Last Admin: 07/18/19 08:43 Dose: 144 mcg Documented by: [facility]ivitamins ([facility]ivitamin Tab) [facility] [place]: 08/16/19 08:59 Last Admin: 07/18/19 08:44 Dose: 1 tab Documented by: Ondansetron HCl (Zofran) 4 mg IV Q6H PRN PRN Reason: Nausea Stop: 08/15/19 23:27 Oxycodone/Acetaminophen (Percocet 10/325mg) 1 tab PO Q6H PRN PRN Reason: Pain Stop: 07/30/19 20:14 Last Admin: 07/18/19 09:47 Dose: 1 tab Documented by: Pantoprazole Sodium (Protonix) 40 mg PO BID [facility] Stop: 08/15/19 23:37 Last Admin: 07/18/19 08:43 Dose: 40 mg Documented by: Polyethylene Glycol (Miralax Powder Packet) 17 gm PO DAILY PRN PRN Reason: Constipation Stop: 08/15/19 23:27 Triamcinolone Acetonide (Kenalog 0.1%) 1 appln TOP BID [facility] Stop: 08/15/19 23:27 Last Admin: 07/18/19 08:44 Dose: 1 appln Documented by: Zolpidem Tartrate (Ambien) 10 mg PO HS [facility] Stop: 08/15/19 23:27 Last Admin: 07/17/19 22:07 Dose: 10 mg Documented by: PG Care Time/CCT Total # of Minutes Spent Total Time Spent with Patient: Total time spent is greater than 50% in coordination of care (as documented) at patient's floor/unit and/or counseling patient: Coding Level of Care Code 01056 Subseq [facility] Care Lv 2 Diagnoses Sepsis A41.9; R65.20; N17.9 Acute renal failure type: unspecified Sepsis acute organ dysfunction status: with acute organ dysfunction Sepsis type: sepsis due to unspecified organism Severe sepsis acute organ dysfunction type: acute renal failure Severe sepsis shock status: without septic shock Acute renal failure N17.9 Acute renal failure type: unspecified Obstructive nephropathy N13.8 Complicated urinary tract infection N39.0 Hydronephrosis due to obstruction of ureter N13.2 Ureterolithiasis N20.1 Right ureteral stone N20.1 (1) Sepsis Acute renal failure type: unspecified Sepsis acute organ dysfunction status: with acute organ dysfunction Sepsis type: sepsis due to unspecified organism Severe sepsis acute organ dysfunction type: acute renal failure Severe sepsis shock status: without septic shock Qualified Code(s): A41.9 - Sepsis, unspecified organism; R65.20 - Severe sepsis without septic shock; N17.9 - Acute kidney failure, unspecified (2) Acute renal failure Acute renal failure type: unspecified Qualified Code(s): N17.9 - Acute kidney failure, unspecified
[2019-07-18] MEDS: cefTRIAXone SODIUM 2,000 MG in DEXTROSE 5% 50 ML IV SCH (19:01)
[2019-07-18] MEDS: AMITRIPTYLINE HCL 50 MG TAB PO SCH (20:28)
[2019-07-18] MEDS: ATORVASTATIN 20 MG TAB PO SCH (20:28)
[2019-07-18] MEDS: ZOLPIDEM TARTRATE 10 MG TAB PO SCH (20:28)
[2019-07-19] MEDS: OXYCODONE/ACETAMINOPHEN 10-325 TAB PO PRN ×3 (07:22→21:57)
[2019-07-19 08:30] LABS: Basophils # (auto) 0.11 K/uL (0-0.2); Basophils % (auto) 1.1 %; Eosinophils # (auto) 0.81 K/uL (0-0.5); Eosinophils % (auto) 8.2 %; Hematocrit (blood only) 36.1 % (42-52); Immature Granulocytes # (auto) 0.03 K/uL (0.00-0.02); Immature Granulocytes % (auto) 0.3 %; Lymphocytes % (auto) 13.2 %; Mean Corpuscular Hemoglobin 29.9 pg (25-34); Mean Corpuscular Hgb Conc 33.2 g/dL (32-36); Mean Platelet Volume 9.8 fL (7.4-10.4); Monocytes # (auto) 0.59 K/uL (0.11-0.59); Neutrophils # (auto) 6.98 K/uL (1.4-6.5); Neutrophils % (auto) 71.2 %; Platelet Count 317 K/uL (130-400); RDW Coefficient of Variation 15.9 % (11.5-14.5); RDW Standard Deviation 52.4 fL (36.4-46.3); Red Blood Count 4.01 M/uL (4.7-6.1); White Blood Count 9.82 K/uL (4.8-10.8)
[2019-07-19] MEDS: LINACLOTIDE 72 MCG CAPSULE PO SCH (08:42)
[2019-07-19] MEDS: FLUOXETINE HCL 20 MG CAP PO SCH (08:42)
[2019-07-19] MEDS: PANTOprazole 40 MG TAB PO SCH ×2 (08:42→21:56)
[2019-07-19] MEDS: MULTIVITAMIN TAB PO SCH (08:42)
[2019-07-19] MEDS: ASPIRIN 81 MG ECTAB PO SCH (08:43)
[2019-07-19] MEDS: FERROUS SULFATE 325 MG TAB PO SCH (08:43)
[2019-07-19] MEDS: TRIAMCINOLONE ACET 0.1% CR 15 GM TUBE TOP SCH ×2 (08:43→21:56)
[2019-07-19 09:02] LABS: BUN Creatinine Ratio 13.6 (10-20); Calcium 8.3 mg/dl (8.5-10.1); Creatinine Clr Calc Pharmacy 167.6 ml/min; Est GFR (African American) 135.2; Est GFR (Non-African American) 116.6; Potassium 3.6 mmol/L (3.5-5.1)
[2019-07-19] MEDS ORDERED: bisacodyL 10 MG SUPP PR STA (11:06)
[2019-07-19] MEDS: ACETAMINOPHEN 325 MG TAB PO PRN (15:43)
--- NOTE | 2019-07-19 15:57 | Hospitalist Progress Note ---
Date of Service July 19, 2019 Assessment & Plan (1) Sepsis: due to catheter associated UTI, chronic garrison urine culture growing > 3 organisms, all high counts reviewed prior urine cultures: E coli that was resistant to quinolones and Proteus, perez sensitive tapered to Rocephin on 07/17 WBC down to 9k from 14k yesterday, was 29k on admission no fever during entire stay vitals stable, never any signs of shock continue Rocephin while here, transition to Keflex on discharge, complete 10-14 days total for catheter associated UTI plan for catheter exchange tomorrow with cystoscopy (2) Acute renal failure: quickly resolved, Cr down to 0.5 today making adequate urine electrolytes stable no further fluids, drinking well (3) Obstructive nephropathy: resolved, may have passed stone plan for cystoscopy on Saturday with urology (4) Complicated urinary tract infection: (5) Hydronephrosis due to obstruction of ureter: (6) Ureterolithiasis: (7) Right ureteral stone: Admission and Anticipated Discharge Date Admission Date: July 16, 2019 Anticipated date of discharge: 07/20/19 Subjective patient requesting suppository for constipation, uses them at home from time to time no pain, no nausea, no fever, no chills, no dyspnea, no chest pain eating well reviewed labs, WBC down to normal at 9k, Cr stable at 0.5 he asked about exchanging garrison, suggested they could do it tomorrow at time of cystoscopy, he agreed Review of Systems Review of Systems: All systems reviewed & are unremarkable except as noted in HPI & below Gastrointestinal: + constipation Physical Exam Constitutional: WD/WN, vitals as above Eyes: PERRL, conjunctivae normal, anicteric sclerae ENMT: external ear and nose normal, oropharynx normal Neck: trachea midline, no thyromegaly Respiratory: normal respiratory effort, lungs clear to auscultation Cardiovascular: RRR, no murmur, no edema Gastrointestinal (Abdomen): normal bowel sounds, soft, nontender, no hepatosplenomegaly Musculoskeletal: Head/Neck/Chest: normocephalic and head atraumatic Extremities: + abnormal strength (paralyzed below the waist); no cyanosis, no clubbing and no petechiae Skin: no rashes, warm and dry Neurologic: PERRL, EOMI, accommodation nl, no face palsy, no dysarthria + focal motor deficit (paralyzed below the waist) Psychiatric: A+Ox3, euthymic affect Lymphatic: no cervical or axillary lymphadenopathy Results & Data Results & Data ([facility]) Vital Signs (Past 12 Hours) Vital Signs Temp Pulse Pulse Pulse Resp BP BP 07/19/19 15:44 37.3 C 72 18 95/68 L 07/19/19 11:12 36.7 C 81 19 136/89 07/19/19 07:17 36.6 C 77 16 156/99 H 07/19/19 07:06 78 07/19/19 04:11 37 C 86 18 133/80 Pulse Ox 07/19/19 15:44 94 07/19/19 11:12 91 07/19/19 07:17 95 07/19/19 07:06 07/19/19 04:11 92 Laboratory Results Laboratory Results - last 24 hr 07/19/19 07/19/19 08:13 08:13 WBC 9.82 RBC 4.01 L Hgb 12.0 L Hct 36.1 L MCV 90.0 MCH 29.9 MCHC 33.2 RDW Std Deviation 52.4 H RDW Coeff of Jigna 15.9 H Plt Count 317 MPV 9.8 Immature Gran % (Auto) 0.3 Neut % (Auto) 71.2 Lymph % (Auto) 13.2 [place] % (Auto) 6.0 Eos % (Auto) 8.2 Baso % (Auto) 1.1 Immature Gran # (Auto) 0.03 H Neut # (Auto) 6.98 H Lymph # (Auto) 1.30 [place] # (Auto) 0.59 Eos # (Auto) 0.81 H Baso # (Auto) 0.11 Sodium 140 Potassium 3.6 Chloride 108 H Carbon Dioxide 26 Anion Gap 7.0 BUN 7 D Creatinine 0.53 L Est Cr Clr Drug Dosing 167.6 Est GFR ( Amer) 135.2 Est GFR (Non-Af Amer) 116.6 BUN/Creatinine Ratio 13.6 Glucose 101 H Calcium 8.3 L Medications Administered Current Inpatient Medications Acetaminophen (Tylenol) 650 mg PO Q4H PRN PRN Reason: Pain or Fever Stop: 08/15/19 23:27 Last Admin: 07/19/19 15:43 Dose: 650 mg Documented by: Amitriptyline HCl (Elavil) 50 mg PO HS [facility] Stop: 08/15/19 23:27 Last Admin: 07/18/19 20:28 Dose: 50 mg Documented by: Aspirin (Ecotrin Ectab) 81 mg PO [facility] Stop: 08/17/19 08:59 Last Admin: 07/19/19 08:43 Dose: 81 mg Documented by: Atorvastatin Calcium (Lipitor) 20 mg PO [facility] Stop: 08/15/19 23:27 Last Admin: 07/18/19 20:28 Dose: 20 mg Documented by: Ferrous Sulfate (Feosol) 325 mg PO [facility] Stop: 08/16/19 08:59 Last Admin: 07/19/19 08:43 Dose: 325 mg Documented by: Fluoxetine HCl (Prozac) 60 mg PO [facility] Stop: 08/16/19 08:59 Last Admin: 07/19/19 08:42 Dose: 60 mg Documented by: Ceftriaxone Sodium 2,000 mg/ (Dextrose) 70 mls @ 100 mls/hr IV DAILY@1800 [facility]; Protocol Stop: 07/28/19 17:59 Last Infusion: 07/18/19 19:44 Dose: Infused Documented by: Linaclotide (Linzess) 144 mcg PO [facility] Stop: 08/16/19 08:59 Last Admin: 07/19/19 08:42 Dose: 144 mcg Documented by: Multivitamins (Multivitamin Tab) 1 tab PO [facility] Stop: 08/16/19 08:59 Last Admin: 07/19/19 08:42 Dose: 1 tab Documented by: Ondansetron HCl (Zofran) 4 mg IV Q6H PRN PRN Reason: Nausea Stop: 08/15/19 23:27 Oxycodone/Acetaminophen (Percocet 10/325mg) 1 tab PO Q6H PRN PRN Reason: Pain Stop: 07/30/19 20:14 Last Admin: 07/19/19 15:42 Dose: 1 tab Documented by: Pantoprazole Sodium (Protonix) 40 mg PO BID [facility] Stop: 08/15/19 23:37 Last Admin: 07/19/19 08:42 Dose: 40 mg Documented by: Polyethylene Glycol (Miralax Powder Packet) 17 gm PO DAILY PRN PRN Reason: Constipation Stop: 08/15/19 23:27 Last Admin: 07/19/19 09:31 Dose: 17 gm Documented by: Triamcinolone Acetonide (Kenalog 0.1%) 1 appln TOP BID [facility] Stop: 08/15/19 23:27 Last Admin: 07/19/19 08:43 Dose: 1 appln Documented by: Zolpidem Tartrate (Ambien) 10 mg PO HS [facility] Stop: 08/15/19 23:27 Last Admin: 07/18/19 20:28 Dose: 10 mg Documented by: PG Care Time/CCT Total # of Minutes Spent Total Time Spent with Patient: Total time spent is greater than 50% in coordination of care (as documented) at patient's floor/unit and/or counseling patient: Coding Level of Care Code 70133 Subseq Hosp Care Lvl 2 Diagnoses Sepsis A41.9; R65.20; N17.9 Acute renal failure type: unspecified Sepsis acute organ dysfunction status: with acute organ dysfunction Sepsis type: sepsis due to unspecified organism Severe sepsis acute organ dysfunction type: acute renal failure Severe sepsis shock status: without septic shock Acute renal failure N17.9 Acute renal failure type: unspecified Obstructive nephropathy N13.8 Complicated urinary tract infection N39.0 Hydronephrosis due to obstruction of ureter N13.2 Ureterolithiasis N20.1 Right ureteral stone N20.1 (1) Sepsis Acute renal failure type: unspecified Sepsis acute organ dysfunction status: with acute organ dysfunction Sepsis type: sepsis due to unspecified organism Severe sepsis acute organ dysfunction type: acute renal failure Severe sepsis shock status: without septic shock Qualified Code(s): A41.9 - Sepsis, unspecified organism; R65.20 - Severe sepsis without septic shock; N17.9 - Acute kidney failure, unspecified (2) Acute renal failure Acute renal failure type: unspecified Qualified Code(s): N17.9 - Acute kidney failure, unspecified
[2019-07-19] MEDS: cefTRIAXone SODIUM 2,000 MG in DEXTROSE 5% 50 ML IV SCH (18:24)
[2019-07-19] MEDS: ZOLPIDEM TARTRATE 10 MG TAB PO SCH (21:55)
[2019-07-19] MEDS: AMITRIPTYLINE HCL 50 MG TAB PO SCH (21:55)
[2019-07-19] MEDS: ATORVASTATIN 20 MG TAB PO SCH (21:56)
--- NOTE | 2019-07-20 07:54 | Hospitalist Progress Note ---
Date of Service July 20, 2019 Assessment & Plan (1) Sepsis: due to catheter associated UTI, chronic garrison urine culture growing > 3 organisms, all high counts reviewed prior urine cultures: E coli that was resistant to quinolones and Proteus, perez sensitive tapered to Rocephin on 07/17 WBC down from 29k on admission no fever during entire stay vitals stable, never any signs of shock continue Rocephin while here, transition to Keflex on discharge, complete 10-14 days total for catheter associated UTI plan for catheter exchange tomorrow with cystoscopy, patient typically changes his catheters at home on his own (2) Acute renal failure: quickly resolved, Cr down to 0.5 today (3) Obstructive nephropathy: resolved, may have passed stone plan for cystoscopy on 07/19 with urology (4) Complicated urinary tract infection: (5) Hydronephrosis due to obstruction of ureter: (6) Ureterolithiasis: (7) Right ureteral stone: (8) 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 and previous issues with pressure ulcers Admission and Anticipated Discharge Date Admission Date: July 16, 2019 Subjective pt is doing well post op feels "fine" and has no concerns, no other issues at the present time Review of Systems Review of Systems: All systems reviewed & are unremarkable except as noted in HPI & below Mild distress and fatigue no headache, blurry or double vision no speech or swallowing issues no chest pain, pressure or palpitations no shortness of breath, cough or wheezes no abdominal pain, nausea or vomiting, diarrhea or constipation no dysuria, hematuria or frequency no focal joint pain or swelling no back pain, CVA tenderness or radicular pain no bruising, bleeding or rashes no new neurological changes patient feels he is at his baseline with his paraplegia no complaints or anxiety or depression Physical Exam Physical Exam: The patient appeared well Vital signs as documented. Lungs are clear to auscultation and appear unlabored Cardiac exam, Rhythm is regular.. No murmurs, rubs or gallops. Abdominal exam reveals normal bowel sounds, soft non tender, no masses Neurologic exam is alert and oriented, baseline neurological deficits are present Skin is without bruises or rashes Psychologically is without concerns for anxiety or depression Results & Data Results & Data ([facility]) Vital Signs (Past 12 Hours) Vital Signs Temp Pulse Pulse Resp BP Pulse Ox 07/20/19 03:37 98.4 F 71 18 181/108 H 96 07/20/19 00:19 88 07/19/19 23:28 98.6 F 88 16 149/95 H 92 07/19/19 20:00 99.0 F 85 18 143/79 H 95 PG Care Time/CCT Total # of Minutes Spent Total Time Spent with Patient: Total time spent is greater than 50% in coordination of care (as documented) at patient's floor/unit and/or counseling patient: Coding Level of Care Code 64270 Subseq Hosp Care Lvl 2 Diagnoses Sepsis A41.9; R65.20; N17.9 Acute renal failure type: unspecified Sepsis acute organ dysfunction status: with acute organ dysfunction Sepsis type: sepsis due to unspecified organism Severe sepsis acute organ dysfunction type: acute renal failure Severe sepsis shock status: without septic shock Acute renal failure N17.9 Acute renal failure type: unspecified Obstructive nephropathy N13.8 Complicated urinary tract infection N39.0 Hydronephrosis due to obstruction of ureter N13.2 Ureterolithiasis N20.1 Right ureteral stone N20.1 Paraplegia following spinal cord injury G82.20 (1) Acute renal failure Acute renal failure type: unspecified Qualified Code(s): N17.9 - Acute kidney failure, unspecified (2) Sepsis Acute renal failure type: unspecified Sepsis acute organ dysfunction status: with acute organ dysfunction Sepsis type: sepsis due to unspecified organism Severe sepsis acute organ dysfunction type: acute renal failure Severe sepsis shock status: without septic shock Qualified Code(s): A41.9 - Sepsis, unspecified organism; R65.20 - Severe sepsis without septic shock; N17.9 - Acute kidney failure, unspecified
--- NOTE | 2019-07-20 08:20 | XRay Report ---
KUB HISTORY: Generalized abdominal pain. Kidney stone. COMPARISON: KUB 07/17/2019. FINDINGS: Large amount well-formed stool seen within the colon and rectum. This includes a 9 cm recta l stool ball. No change in the distal right ureteral calculi. The right renal shadows mostly obscured by overlying bowel gas. The left renal calculi are also unchanged. Suture material within the midabd omen. No renal calculi. No ureteral calculi. No pneumoperitoneum or pneumatosis. IMPRESSION: 1. No change in the distal right ureteral calculi. 2. Left renal nephrolithiasis persists. 3. Large amount of stool within the colon and rectum including a large rectal stool ball. ACT 112: Negative or not required by law. Electronically signed by: Adrian Martinez M.D. 07/20/2019 8:19 AM
[2019-07-20] MEDS ORDERED: lisinopriL 5 MG TAB PO ONE (09:07)
[2019-07-20] MEDS: FERROUS SULFATE 325 MG TAB PO SCH (09:26)
[2019-07-20] MEDS: MULTIVITAMIN TAB PO SCH (09:27)
[2019-07-20] MEDS: FLUOXETINE HCL 20 MG CAP PO SCH (09:27)
[2019-07-20] MEDS: LINACLOTIDE 72 MCG CAPSULE PO SCH (09:27)
[2019-07-20] MEDS: ASPIRIN 81 MG ECTAB PO SCH (09:27)
[2019-07-20] MEDS: TRIAMCINOLONE ACET 0.1% CR 15 GM TUBE TOP SCH ×2 (09:28→20:27)
[2019-07-20] MEDS: PANTOprazole 40 MG TAB PO SCH ×2 (09:28→20:28)
[2019-07-20] MEDS: OXYCODONE/ACETAMINOPHEN 10-325 TAB PO PRN ×3 (09:42→22:21)
--- NOTE | 2019-07-20 09:57 | History & Physical Bridge Note ---
Date of Service July 20, 2019 History & Physical Bridge Note I have examined the patient, reviewed the History & Physical and in the interval since the performance of the History & Physical I have noted the following changes of clinical significance: Will plan for right ureteroscopy with laser lithotripsy
[2019-07-20] MEDS ORDERED: ePHEDrine sulfate 50 MG/ML AMP IV PRN (11:16)
[2019-07-20] MEDS ORDERED: ONDANSETRON INJ 2 MG/ML 2 ML VIAL IV PRN (11:16)
[2019-07-20] MEDS ORDERED: fentaNYL citrate 100 MCG/2 ML VIAL IV PRN (11:16)
[2019-07-20] MEDS ORDERED: HYDROmorphone INJ 1 MG/ML SYRINGE IV PRN (11:16)
[2019-07-20] MEDS ORDERED: ATROPINE SULFATE 0.1 MG/ML 10ML SYR IV PRN (11:16)
[2019-07-20] MEDS ORDERED: IOTHALAMATE MEGLUMINE II 17.2% 250 ML VIAL INSTIL SCH (12:30)
--- NOTE | 2019-07-20 12:32 | Operative Report ---
PG Post Operative Report Pre & Post Diagnosis Operation Date: 07/20/19 11:35 Pre-Op Diagnosis: Right ureteral stones I identified the patient and participated in the time-out.: Yes Procedure Operation Date: 07/20/19 11:35 Actual Procedures p Cystoscopy, lithalopaxy, Right Ureteronephroscopy, Retrograde Pyelogram, Laser Lithotripsy, stone basket extraction, Stent Insertion - Edison Mcintosh DO Surgeon Edison Mcintosh, II, DO Mental Health Orderly None Estimated Blood Loss 1 Findings Consistent with Post-Op Diagnosis Stone destroyed to dust and small fragments and larger fragments removed. 1 cm bladder stone. Specimens Stone Fragments Drains 6 Fr Multilength 18 Fr Coude catheter. Anesthesia Type General Complications none Disposition Disposition: Recovery Room Indications Patient with bothersome stones. Risks and benefits discussed at length. Description of Procedure Patient was consented and brought back to the operating room. Patient was placed under anesthesia in the supine position and moved to the dorsal lithotomy position. Patient was prepped and draped in the regular sterile fashion. A time out was completed. A 30degree Cystoscope was placed into the bladder and the entire bladder was examined. The UO's were identified. A bladder stone was discovered. This was destroyed and then irrigated away. The stone size was approx 1 cm. The UO was cannulized with a catheter and a retrograde pyelogram was completed. A wire was then placed. The Rigid ureteroscope was taken into the ureter. The stone was identified. A laser fiber was selected and the stones were pulverized to dust and small fragments. Larger fragments were grasped and removed and sent for analysis. The scope was removed and a second wire placed. Over the wire, a flexible ureteroscope was taken to the renal pelvis. the entire pelvis was examined. Stones were pulverized. The entire area was once again examined. No residual large fragments or areas of concern were noted. The scope was slowly removed with the wire left in place. Contrast was placed through the scope for a pyelogram to assist in stent placement. The entire ureter was examined as the scope was slowly removed. No obstructions or other areas of concern were noted. With the wire in place, a 6 Fr Double J stent was placed. It was confirmed with fluoroscopy. With the stent in place, the bladder was emptied. The scope was removed. The patient was cleaned, aroused from anesthesia, and transferred to the pacu in stable condition having tolerated the procedure well with no complications. I was present and participated in all aspects of the procedure. The patient will be monitored in the PACU until transferred. I attest to the content of the Intraoperative Record and any orders documented therein. Any exceptions are noted below.
--- NOTE | 2019-07-20 13:15 | Anesthesiology Progress Note ---
Date of Service July 20, 2019 Anesthesia Post Procedure Vital Signs Vital Signs: Temp Pulse Pulse Pulse Pulse Resp BP 07/20/19 13:01 36.0 C L 83 16 07/20/19 11:07 36.9 C 87 18 160/105 H 07/20/19 08:10 68 07/20/19 07:00 36.6 C 78 18 07/20/19 03:37 36.9 C 71 18 07/20/19 00:19 88 07/19/19 23:28 37 C 88 16 07/19/19 20:00 37.2 C 85 18 07/19/19 15:57 79 07/19/19 15:44 37.3 C 72 18 BP Pulse Ox 07/20/19 13:01 138/90 95 07/20/19 11:07 95 07/20/19 08:10 07/20/19 07:00 164/99 H 95 07/20/19 03:37 181/108 H 96 07/20/19 00:19 07/19/19 23:28 149/95 H 92 07/19/19 20:00 143/79 H 95 07/19/19 15:57 07/19/19 15:44 95/68 L 94 Pain Intensity Back: Pain Intensity: 6 Head: Pain Intensity: 7 Neck: Pain Intensity: 0 Transfer of Care Handoff Completed per policy Notes Mental Status: alert / awake / arousable and participated in evaluation Patient Amnestic to Procedure: Yes Nausea / Vomiting: adequately controlled Pain: adequately controlled Airway Patency, RR, SpO2: stable & adequate BP & HR: stable & adequate Hydration State: stable & adequate Anesthetic Complications: no major complications apparent and Pt Satisfied with anesthetic care
[2019-07-20] MEDS: ACETAMINOPHEN 325 MG TAB PO PRN ×2 (15:50→20:27)
[2019-07-20] MEDS: cefTRIAXone SODIUM 2,000 MG in DEXTROSE 5% 50 ML IV SCH (19:07)
[2019-07-20] MEDS: ZOLPIDEM TARTRATE 10 MG TAB PO SCH (20:27)
[2019-07-20] MEDS: ATORVASTATIN 20 MG TAB PO SCH (20:28)
[2019-07-20] MEDS: AMITRIPTYLINE HCL 50 MG TAB PO SCH (20:28)
--- NOTE | 2019-07-21 07:44 | Urology Progress Note ---
Date of Service July 21, 2019 Assessment & Plan (1) Catheter-associated urinary tract infection: (2) Sepsis: (3) Right ureteral stone: 59 year-old male patient admitted with right ureteral stone, bladder stone, catheter-associated UTI, and suspected urosepsis. -POD#1 cystoscopy, lithalopaxy, right ureteronephroscopy, retrograde pyelogram, laser lithotripsy, stone basket extraction, and right stent. -Clinically feeling well. -Remains afebrile. -Creatinine and white count stable. -Blood cultures no growth after 48 hours. -Urine culture showing high counts of more than 3 organisms. -Recommend total of 14 day course for complicated UTI treatment. -Will arrange follow-up with urology service for stent removal, okay to discharge from perspective. -Patient in agreement with above plan. Thank you for allowing us to participate in the acute care of Mr. Guardado. Please reconsult us with additional questions, concerns or changes in patient status. Subjective Patient POD #1 cystoscopy, lithalopaxy, right ureteronephroscopy, retrograde pyelogram, laser lithotripsy, stone basket extraction, and right stent. Patient feeling well post-procedure. Slept well without issues overnight. Afebrile, denies fevers or chills. Denies nausea or vomiting. Camp catheter intact, draining pink urine as expected. Denies flank or abdominal pain. Taking PO pain medication for chronic wrist pain. Chart review: Afebrile. Creatinine and white blood cell count normalized. Blood cultures on 07/15 no growth after 48 hours. Urine culture from 07/15 with more than 3 organisms, high count. Currently on IV Ceftriaxone. Review of Systems Constitutional: no fever and no chills Respiratory: no cough and no dyspnea Gastrointestinal: no nausea and no vomiting Genitourinary: + as per Subjective / HPI Physical Exam Constitutional: well developed and well nourished; no acute distress and not ill appearing Respiratory: normal respiratory effort and able to speak in complete sentences ; no respiratory distress and no audible wheezes Gastrointestinal (Abdomen): Inspection/Auscultation: abdomen normal to inspection; abdomen not distended Percussion/Palpation: abdomen soft; abdomen nontender and no guarding Psychiatric: Orientation: alert, oriented x 3 and cooperative Affect: euthymic affect Genitourinary: no CVA tenderness Camp catheter draining pink urine. Results & Data Vital Signs (Past 12 Hours) Vital Signs Temp Pulse Pulse Resp BP BP Pulse Ox 07/21/19 07:36 37.0 C 80 20 129/83 95 07/21/19 07:25 79 07/21/19 04:16 36.8 C 79 16 128/80 94 07/21/19 00:00 76 07/20/19 23:49 37.1 C 91 H 18 123/75 94 PG Care Time/CCT Total # of Minutes Spent Total Time Spent with Patient: Total time spent is greater than 50% in coordination of care (as documented) at patient's floor/unit and/or counseling patient: Coding Level of Care Code 25297 Subseq Hosp Care Lvl 2 Diagnoses Catheter-associated urinary tract infection T83.511A; N39.0 Sepsis A41.9; R65.20; N17.9 Acute renal failure type: unspecified Sepsis acute organ dysfunction status: with acute organ dysfunction Sepsis type: sepsis due to unspecified organism Severe sepsis acute organ dysfunction type: acute renal failure Severe sepsis shock status: without septic shock Right ureteral stone N20.1 (1) Sepsis Acute renal failure type: unspecified Sepsis acute organ dysfunction status: with acute organ dysfunction Sepsis type: sepsis due to unspecified organism Severe sepsis acute organ dysfunction type: acute renal failure Severe sepsis shock status: without septic shock Qualified Code(s): A41.9 - Sepsis, unspecified organism; R65.20 - Severe sepsis without septic shock; N17.9 - Acute kidney failure, unspecified
[2019-07-21] MEDS: LINACLOTIDE 72 MCG CAPSULE PO SCH (07:58)
[2019-07-21] MEDS: PANTOprazole 40 MG TAB PO SCH (07:58)
[2019-07-21] MEDS: MULTIVITAMIN TAB PO SCH (07:59)
[2019-07-21] MEDS: FERROUS SULFATE 325 MG TAB PO SCH (07:59)
[2019-07-21] MEDS: FLUOXETINE HCL 20 MG CAP PO SCH (07:59)
[2019-07-21] MEDS: ASPIRIN 81 MG ECTAB PO SCH (07:59)
[2019-07-21] MEDS: OXYCODONE/ACETAMINOPHEN 10-325 TAB PO PRN (08:00)
[2019-07-21] MEDS: TRIAMCINOLONE ACET 0.1% CR 15 GM TUBE TOP SCH (08:01)
[2019-07-21] MEDS ORDERED: MIDAZOLAM HCL 1 MG/ML 2ML VIAL IV ONE (13:31)
[2019-07-21] MEDS ORDERED: DEXAMETHASONE SOD INJ 4 MG/ML VIAL IV ONE (13:31)
[2019-07-21] MEDS ORDERED: fentaNYL citrate 100 MCG/2 ML VIAL IV ONE (13:31)
[2019-07-21] MEDS ORDERED: ONDANSETRON INJ 2 MG/ML 2 ML VIAL IV ONE (13:31)
[2019-07-21] MEDS ORDERED: PROPOFOL IV EMULSION 10 MG/ML 20 ML VIAL IV ONE (13:31)
[2019-07-21] MEDS ORDERED: LIDOCAINE HCL 2% 2 ML VIAL/AMP(20MG/ML) INFIL ONE (13:31)
[2019-07-21] MEDS ORDERED: ePHEDrine sulfate 50 MG/ML SYR IV ONE (13:31)
[2019-07-21] MEDS ORDERED: PHENYLEPHRINE 100MCG/ML 5ML SYR IV ONE (13:31)
--- NOTE | 2019-07-21 17:56 | Discharge Summary ---
Date of Service July 21, 2019 Principal Diagnosis Sepsis from urinary source resolved Hydronephrosis from urinary stone obstructing resolved with procedure Multiple organisms infected urinary tract Chronic paraplegia Discharge Exam The patient appeared well has returned to his usual state Vital signs as documented. Lungs are clear to auscultation and appear unlabored Cardiac exam, Rhythm is regular.. No murmurs, rubs or gallops. Abdominal exam reveals normal bowel sounds, soft non tender, no masses Extremities are nonedematous and both pedal pulses are normal. Neurologic exam is alert and oriented, has his baseline lower extremity paralysis Psychologically is without concerns for anxiety or depression Discharge Data Allergies Allergy/AdvReac Type Severity Reaction Status Date / Time ibuprofen AdvReac Intermediate GI Bleed Verified 07/16/19 19:47 caffeine AdvReac Unknown Gastrointestinal Verified 07/16/19 19:47 Upset Consultations 07/16/19 19:15 ED Decision to Admit Stat 07/16/19 23:28 Consult Urology Routine Procedures Performed Operation Date: 07/20/19 11:35 Actual Procedures p Laser Lithotripsy, - DO wale Mcclendon Stent Insertion - DO wale Mcclendon Cystoscopy, Right Ureteronephroscopy, Retrograde Pyelogram, - Edison Mcintosh DO Ordered Studies 07/16/19 18:32 CT abd pelvis wo con Stat Hospital Course (1) Sepsis: due to catheter associated UTI, chronic garrison urine culture growing > 3 organisms, all high counts reviewed prior urine cultures: E coli that was resistant to quinolones and Proteus, perez sensitive tapered to Rocephin on 07/17 WBC down from 29k on admission no fever during entire stay vitals stable, never any signs of shock continue Rocephin while here, transition tocefdinir, complete 10-14 days total for catheter associated complex UTI catheter exchange 07/19 by with cystoscopy, patient typically changes his catheters at home on his own (2) Acute renal failure: quickly resolved, (3) Obstructive nephropathy: resolved, may have passed stone plan for cystoscopy on 07/19 with urology, stone retrieval and stent placement (4) Complicated urinary tract infection: (5) Hydronephrosis due to obstruction of ureter: (6) Ureterolithiasis: (7) Right ureteral stone: (8) 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 and previous issues with pressure ulcers Total Time Total Time Spent Total Time Spent (In Minutes): It required greater than 30 minutes to prepare this patient for discharge Discharge Plan Discharge Items Patient Disposition: Home - Self-Care Reason For Visit: POST OBSTRUCTIVE UROSEPSIS Discharge Diagnosis: complicated UTI poa hydronephrosis and stent. chronic parapelegia Activity: Resume your previous activity Non-emergency contact: Primary Care Provider and Urologist Call non-emergency contact if: you have any medication questions and your symptoms worsen Follow-up/Referrals: Zenaida Flanagan PA-C [Primary Care Provider] - Diet: Regular Addtl Attending Provider Instructions: please drink plenty of liquids to assure good urine flow follow up with family doctor as needed please follow up urology for attention to your stent Pending Studies at Discharge: No Stand-Alone Forms: My [place] [employer], Smoking Cessation Medications and DC Order Prescriptions: New cefdinir 300 mg capsule 300 mg PO BID 10 Days Qty: 20 RF: 0 oxycodone-acetaminophen 10-325 mg tablet 1 tab PO Q8H Qty: 14 RF: 0 Continued multivitamin Tablet 1 tab PO QAM RF: 0 atorvastatin 20 mg Tablet 20 mg PO HS RF: 0 omeprazole 40 mg Capsule,Delayed Release(Dr/Ec) 40 mg PO BID RF: 0 oxycodone-acetaminophen 10-325 mg Tablet 1 tab PO Q6H PRN (Reason: Pain) RF: 0 ferrous sulfate [iron] 325 mg (65 mg iron) Tablet 325 mg PO QAM RF: 0 zolpidem [Ambien] 10 mg Tablet 10 mg PO HS PRN (Reason: Sleep) RF: 0 Linzess 145 mcg Capsule 145 mcg PO QAM RF: 0 triamcinolone acetonide 0.1 % cream 1 applic TOPICAL BID RF: 0 fluoxetine 60 mg tablet 60 mg PO QAM RF: 0 sennosides [Senokot] 8.6 mg Tablet See Rx Instructions .ROUTE .COMPLEX RF: 0 aspirin 81 mg Tablet,Delayed Release (Dr/Ec) 81 mg PO DAILY RF: 0 nitrofurantoin macrocrystal 100 mg capsule 100 mg PO DAILY Qty: 0 RF: 0 amitriptyline 50 mg Tablet 50 mg PO HS RF: 0 Discharge Orders: Discharge Order (Routine); Ordered 07/21/19 Ordered By: Kaiden Hurtado Admission Data Admit Date/Time: 07/16/19 20:51 Attending Provider: Kaiden Hurtado Admit Provider: Aly Gibson Primary Care Provider: Zenaida Flanagan Other Providers: Jah Palencia ; Edison Mcintosh Other Interventions: Discharge Summary Assessment (RN) Last Done: 07/21/19 10:59 DC Date/Time DO NOT enter until pt leaves facility: 07/21/19 13:32 Coding Level of Care Code D/C Day Management >30 mins Diagnoses Sepsis A41.9; R65.20; N17.9 Acute renal failure type: unspecified Sepsis acute organ dysfunction status: with acute organ dysfunction Sepsis type: sepsis due to unspecified organism Severe sepsis acute organ dysfunction type: acute renal failure Severe sepsis shock status: without septic shock Acute renal failure N17.9 Acute renal failure type: unspecified Obstructive nephropathy N13.8 Complicated urinary tract infection N39.0 Hydronephrosis due to obstruction of ureter N13.2 Ureterolithiasis N20.1 Right ureteral stone N20.1 Paraplegia following spinal cord injury G82.20
[2019-07-25 22:44] LABS: Calculus Nidus Not Observed; Component 2 DNR; Source RIGHT URETERAL STONE
--- NOTE | 2019-08-10 14:00 | Fluoroscopy Report ---
FL retrograde includes kub HISTORY: RIGHT RETROGRADE FLUOROSCOPY TIME: 1 minute and 9 seconds. FINDINGS: 2 fluoroscopic spot images were submitted for review. A right ureteral stent is in good pos ition. IMPRESSION: Fluoroscopy provided for right ureteral stent placement which appears in good position.. ACT 112: Negative or not required by law. Electronically signed by: Adrian Martinez M.D. 07/20/2019 12:44 PM
== END 2019-07-21 13:32 | disposition home or self-care (01) | DRG 659 ==
LOC: ED 17:26 → 2N 20:51 → SUATTDRO 20:51 → 2N 22:35

== ENCOUNTER 2019-08-24 14:01 | Inpatient (IN) ==
[2019-08-24] MEDS ORDERED: SODIUM CHLORIDE 0.9% 1000ML 1,000 ML IV ONE (14:25)
--- NOTE | 2019-08-24 14:42 | XRay Report ---
SINGLE VIEW CHEST CLINICAL HISTORY: Sepsis. FINDINGS: An AP, portable, upright chest radiograph is compared to study dated 07/16/2019. The examina tion is degraded by portable technique and patient rotation. The cardiomediastinal silhouette is un remarkable. The lungs and pleural spaces are clear. No pneumothorax is seen. The bony thorax is gross ly intact. There is thoracic scoliosis with spinal rods in place. Degenerative change is noted in the shoulders. IMPRESSION: No active disease in the chest. Electronically signed by: Luther Vasquez M.D. 08/24/2019 2:41 PM
[2019-08-24] MEDS: fentaNYL citrate 100 MCG/2 ML VIAL IV PRN ×2 (15:07→15:41)
[2019-08-24 15:15] LABS: Basophils # (auto) 0.12 K/uL (0-0.2); Basophils % (auto) 0.5 %; Eosinophils # (auto) 0.09 K/uL (0-0.5); Eosinophils % (auto) 0.4 %; Hematocrit (blood only) 41.4 % (42-52); Hemoglobin 13.2 g/dL (14.0-18.0); Immature Granulocytes # (auto) 0.09 K/uL (0.00-0.02); Immature Granulocytes % (auto) 0.4 %; Lymphocytes # (auto) 1.62 K/uL (1.2-3.4); Lymphocytes % (auto) 7.3 %; Mean Corpuscular Hgb Conc 31.9 g/dL (32-36); Mean Corpuscular Volume 94.1 fL (80-100); Mean Platelet Volume 9.6 fL (7.4-10.4); Monocytes # (auto) 0.88 K/uL (0.11-0.59); Neutrophils # (auto) 19.32 K/uL (1.4-6.5); Neutrophils % (auto) 87.4 %; Platelet Count 490 K/uL (130-400); RDW Standard Deviation 58.4 fL (36.4-46.3); White Blood Count 22.12 K/uL (4.8-10.8)
--- NOTE | 2019-08-24 15:18 | Electrocardiogram Report ---
Test Reason : Blood Pressure : / mmHG Vent. Rate : 087 BPM Atrial Rate : 087 BPM P-R Int : 144 ms QRS Dur : 110 ms QT Int : 410 ms P-R-T Axes : 049 -02 063 degrees QTc Int : 493 ms Normal sinus rhythm Left atrial enlargement Incomplete right bundle branch block Left ventricular hypertrophy with repolarization abnormality Prolonged QT Abnormal ECG When compared with ECG of 16-JUL-2019 18:30, Criteria for Inferior infarct are no longer Present Confirmed by Andrea Boone ([id number]) on 08/24/2019 3:18:37 PM Referred By: REFERRED SELF Confirmed By:Andrea Boone
[2019-08-24 15:32] LABS: Albumin Level 2.8 gm/dl (3.4-5.0); BUN Creatinine Ratio 14.2 (10-20); Calcium 8.6 mg/dl (8.5-10.1); Creatinine Clr Calc Pharmacy 73.2 ml/min; Est GFR (African American) 83.5; Magnesium 1.6 mg/dl (1.8-2.4); Potassium 3.1 mmol/L (3.5-5.1)
[2019-08-24 15:34] LABS: Albumin Globulin Ratio 0.6 (0.9-2); Bilirubin,Total 0.2 mg/dl (0.2-1); Globulin 4.8 gm/dl (2.5-4.0); Total Protein 7.6 gm/dl (6.4-8.2)
[2019-08-24 15:36] LABS: Prothrombin Time 10.3 Seconds (9.0-12.0)
[2019-08-24 15:45] LABS: Appearance Urine Turbid (Clear); Bacteria Urine Automated 4+ (Negative); Bilirubin Urine Negative (Negative); Blood Urine 3+ (Negative); Color Urine Yellow; Epithelial Cell Urine Auto 0-5 /lpf (0-5); Glucose Urine UA Negative (Negative); Ketones Urine Negative (Negative); Leukocyte Esterase Urine 3+ (Negative); Nitrite Urine Negative (Negative); RBC Urine Automated >30 /hpf (0-4); Specific Gravity Urine 1.009 (1.000-1.030); Urobilinogen Urine Negative (Negative); WBC Urine Automated >30 /hpf (0-5); pH Urine 8.5 (4.5-7.5)
[2019-08-24] MEDS ORDERED: DAPTOmycin 475 MG in SYRINGE 0 ML IV ONE (15:49)
[2019-08-24] MEDS ORDERED: SODIUM CHLORIDE 0.9% 1000ML 2,000 ML IV ONE (15:49)
[2019-08-24] MEDS ORDERED: CEFEPIME 2,000 MG/20 ML VIAL IV STA (15:49)
[2019-08-24] MEDS ORDERED: DAPTOMYCIN CONSULT ACTIVE PRN (15:49)
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
[2019-08-24 16:17] LABS: Protein Urine Negative (Negative); Sulfosalicylic Acid Urine Negative (Negative)
[2019-08-24] MEDS ORDERED: MAGNESIUM SULFATE / D5W 1 GM/100 ML BAG IV ONE (16:25)
[2019-08-24] MEDS ORDERED: POTASSIUM CHLORIDE / WTR 10 MEQ/100 ML PLCT IV ONE (16:25)
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
--- NOTE | 2019-08-24 17:15 | CT Scan Report ---
CT abd pelvis wo con CT DOSE: 974.11 mGycm HISTORY: Pain. Nephrocalcinosis. stone hx, stents, hypotension, ?UTI TECHNIQUE: Multiaxial CT images of the abdomen and pelvis were performed without contrast. A dose lo wering technique was utilized adhering to the principles of ALARA. COMPARISON STUDY: 07/16/2019 FINDINGS: Minimal dependent bibasilar atelectasis. Liver spleen and pancreas are grossly unremarkable . Findings of a prior cholecystectomy. Postoperative changes to the stomach are unchanged. Improved bilateral hydroureteronephrosis. Several nonobstructing left renal cortical calcifications. At least one calcification is present within the left renal pelvis. 4 mm calculus mid left ureter. Th is appears to be a non and/or only minimally obstructing. Improved right renal ureterohydronephrosis. Mild bilateral periureteral fat stranding. 3 mm partially obstructing calculus distal right ureter. Calcifications previously described in the distal ureter a re now adjacent to Camp catheter. Multiple calcifications are present within the prostate as well as urinary bladder. Moderate wall thickening as well as hyperdensity of the urinary bladder. Surrounding perivesical infi ltrative change. Improved bowel pattern with a decrease in colonic distention compared to the prior study. Prior cholecystectomy. IMPRESSION: 1. Improved bilateral hydroureteronephrosis. 2. Several bilateral urinary tract calcifications described previously have passed to the urinary pawan dder. 3. Small residual distal ureteral calculi bilaterally. 4. Hyperdense urinary bladder with pericystic infiltrative change suggesting the possibility of cysti tis. 5. Diminished dilatation of the colon, although the rectum shows a moderate increase in air and fecal material distention. 6. Multiple prosthetic as well as bladder calcifications. 7. Diminished colonic distention ACT 112: Negative or not required by law. The above report was generated using voice recognition software. It may contain grammatical, syntax or spelling errors. Electronically signed by: Ulysses Franklin M.D. 08/24/2019 5:14 PM
[2019-08-24] MEDS ORDERED: ALUMINUM/MAGNESIUM SUSP 30 ML UDC PO PRN (18:28)
[2019-08-24] MEDS: OXYCODONE/ACETAMINOPHEN 10-325 TAB PO PRN (19:28)
[2019-08-24] MEDS: LACTATED RINGER'S 1,000 ML IV SCH (19:29)
[2019-08-24] MEDS: PANTOprazole 40 MG TAB PO SCH (20:51)
[2019-08-24] MEDS: POLYETHYLENE (MIRALAX) 17 GM PACK PO SCH (20:51)
[2019-08-24] MEDS: TRIAMCINOLONE ACET 0.1% CR 15 GM TUBE TOP SCH (20:51)
[2019-08-24] MEDS: DOCUSATE SODIUM/SENNA 50/8.6MG TAB PO SCH (20:52)
[2019-08-24] MEDS: AMITRIPTYLINE HCL 50 MG TAB PO SCH (20:52)
[2019-08-24] MEDS ORDERED: ATORVASTATIN 20 MG TAB PO SCH (21:00)
[2019-08-24] MEDS: CEFEPIME 2,000 MG in SYRINGE 7.5 ML IV SCH (23:41)
[2019-08-24] MEDS: ZOLPIDEM TARTRATE 10 MG TAB PO PRN (23:41)
[2019-08-25] MEDS: LACTATED RINGER'S 1,000 ML IV SCH (04:07)
[2019-08-25] MEDS: OXYCODONE/ACETAMINOPHEN 10-325 TAB PO PRN ×3 (05:39→18:09)
[2019-08-25] MEDS: ASPIRIN 81 MG ECTAB PO SCH (07:46)
[2019-08-25] MEDS: PANTOprazole 40 MG TAB PO SCH ×2 (07:46→20:07)
[2019-08-25] MEDS: MULTIVITAMIN TAB PO SCH (07:46)
[2019-08-25] MEDS: FLUOXETINE HCL 20 MG CAP PO SCH (07:46)
[2019-08-25] MEDS: CEFEPIME 2,000 MG in SYRINGE 7.5 ML IV SCH ×2 (07:46→16:09)
[2019-08-25] MEDS: DOCUSATE SODIUM/SENNA 50/8.6MG TAB PO SCH ×2 (07:46→20:07)
[2019-08-25] MEDS: POLYETHYLENE (MIRALAX) 17 GM PACK PO SCH ×3 (07:47→20:06)
[2019-08-25] MEDS: TRIAMCINOLONE ACET 0.1% CR 15 GM TUBE TOP SCH ×2 (07:47→20:07)
[2019-08-25] MEDS: FERROUS SULFATE 325 MG TAB PO SCH (07:47)
[2019-08-25] MEDS: LINZESS: ORDER AWAITING ACTION SCH ×2 (07:48→14:59)
[2019-08-25 08:16] LABS: Basophils # (auto) 0.16 K/uL (0-0.2); Eosinophils # (auto) 0.41 K/uL (0-0.5); Eosinophils % (auto) 2.5 %; Hematocrit (blood only) 36.8 % (42-52); Hemoglobin 11.6 g/dL (14.0-18.0); Immature Granulocytes # (auto) 0.06 K/uL (0.00-0.02); Immature Granulocytes % (auto) 0.4 %; Lymphocytes % (auto) 10.3 %; Mean Corpuscular Hemoglobin 29.4 pg (25-34); Mean Corpuscular Hgb Conc 31.5 g/dL (32-36); Mean Corpuscular Volume 93.2 fL (80-100); Mean Platelet Volume 9.5 fL (7.4-10.4); Monocytes # (auto) 1.04 K/uL (0.11-0.59); Monocytes % (auto) 6.3 %; Neutrophils # (auto) 13.18 K/uL (1.4-6.5); Neutrophils % (auto) 79.5 %; Platelet Count 452 K/uL (130-400); RDW Coefficient of Variation 16.8 % (11.5-14.5); Red Blood Count 3.95 M/uL (4.7-6.1); White Blood Count 16.55 K/uL (4.8-10.8)
[2019-08-25 08:45] LABS: BUN Creatinine Ratio 12.3 (10-20); Calcium 8.2 mg/dl (8.5-10.1); Creatinine Clr Calc Pharmacy 140.3 ml/min; Est GFR (African American) 125.9; Est GFR (Non-African American) 108.6; Potassium 4.1 mmol/L (3.5-5.1)
[2019-08-25] MEDS ORDERED: LINACLOTIDE 72 MCG CAPSULE PO SCH (09:00)
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
[2019-08-25] MEDS: MAGNESIUM SULFATE / D5W 1 GM/100 ML BAG IV SCH ×2 (09:56→12:38)
[2019-08-25] MEDS: ACETAMINOPHEN 325 MG TAB PO PRN ×2 (15:38→20:10)
[2019-08-25] MEDS ORDERED: DAPTOmycin 475 MG in SYRINGE 0 ML IV SCH (17:00)
[2019-08-25] MEDS: AMITRIPTYLINE HCL 50 MG TAB PO SCH (20:07)
[2019-08-25] MEDS ORDERED: ENOXAPARIN INJ 40 MG/0.4 ML SYR SQ ONE (21:20)
[2019-08-26] MEDS: LINZESS: ORDER AWAITING ACTION SCH ×2 (00:10→09:18)
[2019-08-26] MEDS: CEFEPIME 2,000 MG in SYRINGE 7.5 ML IV SCH (00:11)
[2019-08-26] MEDS: OXYCODONE/ACETAMINOPHEN 10-325 TAB PO PRN ×2 (00:11→09:29)
[2019-08-26] MEDS: ZOLPIDEM TARTRATE 10 MG TAB PO PRN (00:12)
[2019-08-26] MEDS ORDERED: CIPROFLOXACIN 500 MG TAB PO SCH (09:00)
[2019-08-26] MEDS: FLUOXETINE HCL 20 MG CAP PO SCH (09:15)
[2019-08-26] MEDS: FERROUS SULFATE 325 MG TAB PO SCH (09:19)
[2019-08-26] MEDS: ASPIRIN 81 MG ECTAB PO SCH (09:19)
[2019-08-26] MEDS: DOCUSATE SODIUM/SENNA 50/8.6MG TAB PO SCH (09:19)
[2019-08-26] MEDS: MULTIVITAMIN TAB PO SCH (09:19)
[2019-08-26] MEDS: PANTOprazole 40 MG TAB PO SCH (09:20)
[2019-08-26] MEDS: POLYETHYLENE (MIRALAX) 17 GM PACK PO SCH (09:21)
[2019-08-26] MEDS: TRIAMCINOLONE ACET 0.1% CR 15 GM TUBE TOP SCH (09:21)
[2019-08-26 09:35] LABS: Basophils # (auto) 0.12 K/uL (0-0.2); Basophils % (auto) 0.9 %; Eosinophils # (auto) 0.52 K/uL (0-0.5); Eosinophils % (auto) 3.7 %; Hematocrit (blood only) 38.8 % (42-52); Hemoglobin 12.5 g/dL (14.0-18.0); Immature Granulocytes # (auto) 0.03 K/uL (0.00-0.02); Immature Granulocytes % (auto) 0.2 %; Lymphocytes # (auto) 1.62 K/uL (1.2-3.4); Lymphocytes % (auto) 11.6 %; Mean Corpuscular Hemoglobin 29.8 pg (25-34); Mean Corpuscular Hgb Conc 32.2 g/dL (32-36); Mean Corpuscular Volume 92.4 fL (80-100); Mean Platelet Volume 9.8 fL (7.4-10.4); Monocytes # (auto) 0.81 K/uL (0.11-0.59); Monocytes % (auto) 5.8 %; Neutrophils % (auto) 77.8 %; Platelet Count 461 K/uL (130-400); RDW Coefficient of Variation 17.3 % (11.5-14.5)
[2019-08-26 10:16] LABS: BUN Creatinine Ratio 14.8 (10-20); Calcium 8.5 mg/dl (8.5-10.1); Creatinine Clr Calc Pharmacy 124.5 ml/min; Est GFR (African American) 119.9; Est GFR (Non-African American) 103.4
--- NOTE | 2019-08-26 10:16 | Discharge Summary ---
Date of Service August 26, 2019 Admission HPI Per Admitting Provider Ulysses Guardado is a 59-year-old male with T7 level paraplegia since 1979 and indwelling Artis catheter with frequent UTIs who presents to the ER with malfunctioning Artis catheter, chills and flank pain. He symptoms started this morning when he noticed urine being passed around his Artis catheter. No objective fevers, but he did experience chills. He does not have any feeling from T7 and below although notices the occasional feeling of passing bowel movements. He has a history of ureteric stents although none noted on current CT scan. Additional recent history of right ureteral stone requiring laser lithotripsy and right ureteral stent in July. The stent appears to have been removed on August 07, 2019 in urology office. In the ER his Artis catheter was changed. Diagnosed with sepsis and received 3 L IV bolus of fluids. Lactic acid 4.2. Started on broad-spectrum antibiotics with daptomycin and cefepime. Previous microbiology reviewed with urine culture from March growing E. coli resistant to nitrofurantoin, quinolones, ampicillin and Unasyn. Similar urine culture in December 2018 including pansensitive Proteus. Both cultures sensitive to cefepime given in the ER. Principal Diagnosis Sepsis due to catheter associated UTI Discharge Exam Constitutional WD/WN, vitals as above Eyes PERRL, conjunctivae normal, anicteric sclerae ENMT external ear and nose normal, oropharynx normal Neck trachea midline, no thyromegaly Respiratory normal respiratory effort, lungs clear to auscultation Cardiovascular RRR, no murmur, no edema Gastrointestinal (Abdomen) normal bowel sounds, soft, nontender, no hepatosplenomegaly Musculoskeletal Head/Neck/Chest: normocephalic, head atraumatic and neck supple Extremities: + limited ROM of extremities, + abnormal strength (lower extremities paralyzed) and + muscle atrophy (lower extremities); no cyanosis, no clubbing and no petechiae Skin no rashes, warm and dry Neurologic patellar DTR's 2+ bilat, sensation intact and PERRL, EOMI, accommodation nl, no face palsy, no dysarthria Psychiatric A+Ox3, euthymic affect Lymphatic no cervical or axillary lymphadenopathy Discharge Data Allergies Allergy/AdvReac Type Severity Reaction Status Date / Time ibuprofen AdvReac Intermediate GI Bleed Verified 08/24/19 15:45 caffeine AdvReac Unknown Gastrointestinal Verified 08/24/19 15:45 Upset Consultations 08/24/19 16:51 ED Decision to Admit Stat Ordered Studies 08/24/19 14:31 CT abd pelvis wo con Stat Hospital Course (1) Sepsis associated hypotension: SIRS criteria: WBC 22.12, HR 98, source urine (blocked artis catheter) hypotension resolved eating and drinking well, stop fluids o 08/24, he is volume resuscitated WBC down to 14k, no fever, vitals stable treated with Cefepime IV from time of admission urine culture with Klebsiella and Providencia, both sensitive to Cipro transition to Cipro, complete 10 more days at home (2) Catheter-associated urinary tract infection: treated with cefepime for two days urine culture with Klebsiella and Providencia Chronic artis use due to paraplegia Changed in ER on initiation of antibiotics complete 10 more days of Ciprofloxacin follow up with Urology in September (3) Obstructed Artis catheter: Noted to be obstructed in ER and changed on initiation of antibiotics working well ever since time of admission (4) Constipation: resolved, moving his bowels continue Linzess at home (5) Hydroureteronephrosis: Improved from prior after the ureteral stent removed recently on August 06 he says he has a follow up with Dr. Sim in September (6) GERD (gastroesophageal reflux disease): Switch omeprazole for pantoprazole as per hospital formulary (7) Hyperlipidemia: Continue atorvastatin 20 mg at bedtime (8) Paraplegia following spinal cord injury: Since 1979 (9) Iron deficiency anemia: Hold iron supplementation while constipation is relieved (10) DVT prophylaxis: Increased risk due to paraplegia. Lovenox 40 mg subcutaneous at bedtime (11) Hypomagnesemia: resolved after IV replacement Total Time Total Time Spent Total Time Spent (In Minutes): 32 minutes Total Time Includes: Examination of the Patient, Discharge Planning and Medication Reconciliation Discharge Plan Discharge Items Patient Disposition: Home - Self-Care Reason For Visit: UTI SEPSIS,OBSTRUCTED ARTIS CATHETER Discharge Diagnosis: Catheter associated UTI Condition on Discharge: Good Goals: complete course of Ciprofloxacin follow up with urology in September as scheduled Activity: Resume your previous activity Non-emergency contact: Primary Care Provider Call non-emergency contact if: you have any medication questions and your symptoms worsen Follow-up/Referrals: Leonid Sim MD [Physician] - (2-4 weeks) Woytowich,Zenaida, PA-C [Primary Care Provider] - (one week) Diet: Heart Healthy Addtl Attending Provider Instructions: Medications: - CIPROFLOXACIN: 500mg twice a day for 10 days, complete the full course of antibiotics Catheter associated UTI urine culture grew out Klebsiella and Providencia both are sensitive to Cipro, transition to oral Cipro today, complete 10 days no fever, vitals stable, WBC down significantly and renal function intact please follow up with PCP in about one week and urology in September please resume Nitrofurantoin after the Cipro is completed Pending Studies at Discharge: No Stand-Alone Forms: My [facility] [employer], Smoking Cessation Medications and DC Order Prescriptions: New ciprofloxacin HCl 500 mg Tablet 500 mg PO BID 10 Days Qty: 20 RF: 0 Continued multivitamin Tablet 1 tab PO QAM RF: 0 atorvastatin 20 mg Tablet 20 mg PO HS RF: 0 omeprazole 40 mg Capsule,Delayed Release(Dr/Ec) 40 mg PO BID RF: 0 oxycodone-acetaminophen 10-325 mg Tablet 1 tab PO Q6H PRN (Reason: Pain) RF: 0 ferrous sulfate [iron] 325 mg (65 mg iron) Tablet 325 mg PO QAM RF: 0 zolpidem [Ambien] 10 mg Tablet 10 mg PO HS PRN (Reason: Sleep) RF: 0 Linzess 145 mcg Capsule 145 mcg PO QAM RF: 0 triamcinolone acetonide 0.1 % cream 1 applic TOPICAL BID RF: 0 fluoxetine 60 mg tablet 60 mg PO QAM RF: 0 sennosides [Senokot] 8.6 mg Tablet See Rx Instructions .ROUTE .COMPLEX RF: 0 aspirin 81 mg Tablet,Delayed Release (Dr/Ec) 81 mg PO DAILY RF: 0 amitriptyline 50 mg Tablet 50 mg PO HS RF: 0 Discontinued nitrofurantoin macrocrystal 100 mg capsule 100 mg PO DAILY Qty: 0 RF: 0 Discharge Orders: Discharge Order (Routine); Ordered 08/26/19 Ordered By: Colt Richey Admission Data Admit Date/Time: 08/24/19 16:58 Attending Provider: Colt Richey Admit Provider: Randell Trevino Primary Care Provider: Zenaida Flanagan Other Providers: Randell Trevino Coding Level of Care Code D/C Day Management >30 mins Diagnoses Sepsis associated hypotension A41.9; I95.9 Catheter-associated urinary tract infection T83.511A; N39.0 Indwelling urinary catheter type: indwelling urethral catheter Encounter type: initial encounter Obstructed Artis catheter T83.091A Encounter type: initial encounter Constipation K59.01 Constipation type: slow transit constipation Hydroureteronephrosis N13.30 GERD (gastroesophageal reflux disease) K21.9 Esophagitis presence: without esophagitis Hyperlipidemia E78.5 Paraplegia following spinal cord injury G82.20 Iron deficiency anemia D50.8 Iron deficiency anemia type: inadequate dietary iron intake DVT prophylaxis Z29.9 Hypomagnesemia E83.42
[2019-08-26] MEDS ORDERED: ENOXAPARIN INJ 40 MG/0.4 ML SYR SQ SCH (21:00)
== END 2019-08-26 12:55 | disposition home or self-care (01) | DRG 698 ==
LOC: ED 14:01 → 2S 16:58 → SUATTDRO 16:58 → 2S 17:30 → 2W 08-25 09:56

== ENCOUNTER 2019-11-16 11:33 | Inpatient (IN) ==
[2019-11-16] MEDS ORDERED: ICU PROTOCOL FOR HYPERGLYCEMIA PRN (13:39)
[2019-11-16] MEDS ORDERED: STAT IV Infusion **Titration per Protocol STA (13:45)
[2019-11-16] MEDS ORDERED: ICU ELECTROLYTE REPLACEMENT PROTOCOL PRN (13:45)
[2019-11-16] MEDS: NORMOSOL-R 1,000 ML IV SCH ×2 (13:50→20:05)
[2019-11-16] MEDS: NOREPINEPHRINE BIT INJ 8 MG in DEXTROSE 5% 500 ML IV SCH (13:50)
[2019-11-16] MEDS ORDERED: PIPERACILL/TAZOBAC CONSULT ACTIVE PRN (13:57)
[2019-11-16] MEDS ORDERED: PIPERACILLIN/TAZOBACTAM 4.5 GM in DEXTROSE 5% 100 ML IV STA (14:06)
[2019-11-16 14:27] LABS: Hematocrit (blood only) 33.7 % (42-52); Hemoglobin 11.4 g/dL (14.0-18.0); Mean Corpuscular Hemoglobin 30.6 pg (25-34); Mean Corpuscular Hgb Conc 33.8 g/dL (32-36); Mean Corpuscular Volume 90.6 fL (80-100); Mean Platelet Volume 9.8 fL (7.4-10.4); Nucleated RBC # (auto) 0.07 K/uL (0-0); Nucleated RBC % (auto) 0.2 %; Platelet Count 358 K/uL (130-400); RDW Coefficient of Variation 18.3 % (11.5-14.5); RDW Standard Deviation 60.9 fL (36.4-46.3); Red Blood Count 3.72 M/uL (4.7-6.1); White Blood Count 41.51 K/uL (4.8-10.8)
[2019-11-16 14:32] LABS: BUN Creatinine Ratio 16.2 (10-20); Calcium 7.6 mg/dl (8.5-10.1); Creatinine Clr Calc Pharmacy 42.9 ml/min; Est GFR (Non-African American) 34.5; Magnesium 1.3 mg/dl (1.8-2.4); Phosphorus 4.5 mg/dl (2.5-4.9); Potassium 3.5 mmol/L (3.5-5.1)
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
[2019-11-16 14:38] LABS: INR 1.4 (0.9-1.1); Partial Thromboplastin Ratio 1.4; Partial Thromboplastin Time 39.4 Seconds (21.0-31.0); Prothrombin Time 14.4 Seconds (9.0-12.0)
[2019-11-16 14:42] LABS: Basophils # (auto) 0.04 K/uL (0-0.2); Basophils % (auto) 0.1 %; Dohle Bodies 2+; Echinocytes 1+; Eosinophils # (auto) 0.01 K/uL (0-0.5); Immature Granulocytes # (auto) 1.87 K/uL (0.00-0.02); Immature Granulocytes % (auto) 4.5 %; Lymphocytes # (auto) 0.94 K/uL (1.2-3.4); Lymphocytes % (auto) 2.3 %; Monocytes % (auto) 2.4 %; Neutrophils # (auto) 37.65 K/uL (1.4-6.5); Neutrophils % (auto) 90.7 %; Toxic Vacuolation 3+
[2019-11-16] MEDS: ALBUMIN 25% 50 ML IV SCH ×4 (14:51→19:56)
--- NOTE | 2019-11-16 15:02 | XRay Report ---
XR chest 1V portable HISTORY: 59 years-old Male S/P Central line placement COMPARISON: Chest radiograph 08/24/2019 TECHNIQUE: Portable AP view of the chest FINDINGS: Left IJ central venous catheter has been placed, distal tip in the expected location of the mid SVC. No postprocedural pneumothorax. Cardiomediastinal and hilar silhouettes are within normal limits. No pleural effusion, airspace consolidation or overt pulmonary edema. Mild right hemidiaphragmatic eleva tion. Dextroscoliosis of the thoracic spine with interbody hardware. Partially imaged hardware of the right humerus. Osteoarthritis of the shoulders with multilevel degenerative changes of the spine. Echavarria rgical suture material projects over the epigastric distribution. IMPRESSION: Status post placement of a left IJ central venous catheter with distal tip terminating in the expected location of the mid SVC. No postprocedural pneumothorax. ACT 112: Negative or not required by law. The above report was generated using voice recognition software. It may contain grammatical, syntax o r spelling errors. Electronically signed by: Trey Garcia M.D. 11/16/2019 3:00 PM
--- NOTE | 2019-11-16 15:06 | XRay Report ---
KUB HISTORY: Follow up study in a patient with reported kidney stones Kidney stones COMPARISON: KUB 09/18/2019, CT abdomen and pelvis 08/24/2019 FINDINGS: The bowel gas pattern is non-obstructive. There is no organomegaly. Arsh are noted with in the right lower quadrant and epigastric distribution. Renal shadows are partially obscured by jevon l gas. No definite renal calculi are identified. There are 2 new irregular calcifications of the pelv is, 1 measuring 5 mm within the right inferior hemipelvis and the other measuring 4 mm within the lef t paracentral pelvis. Moderate to extensive fecal retention, most pelvis and the rectum and distal si gmoid.. No pneumoperitoneum or pneumatosis. No fracture. IMPRESSION: 1. Limited exam secondary to moderate extensive fecal retention. 2. No definite renal calculi. 3. There are two new irregular pelvic basin calcifications as above measuring up to 5 mm. Correlate w ith urinalysis to exclude ureteral calculi. ACT 112: Negative or not required by law. The above report was generated using voice recognition software. It may contain grammatical, syntax o r spelling errors. Electronically signed by: Trey Garcia M.D. 11/16/2019 3:04 PM
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
--- NOTE | 2019-11-16 15:48 | Procedure Note ---
Procedure Note Date of Service November 16, 2019 CENTRAL LINE PROCEDURE NOTE: Procedure: Central Line Placement Provider: Ranjeet Marino MD Indication: Central Drug Administration, Poor Venous Access, Multiple Lab Draws Necessary, etc. Anesthesia: 4 mL lidocaine 1% Site: Left internal jugular Consent was signed and placed on the chart prior to procedure. Indication, risks, and benefits were explained at length. A time-out was completed verifying correct patient, procedure, site, positioning, and implants(s) or special equipment if applicable. Patients left neck was cleansed and draped in the typical sterile fashion using Chloraprep. The Internal Jugular Vein and Carotid Artery were identified using ultrasound. The superficial tissue was anesthetized using 4 mL of 1% lidocaine without epinephrine under direct visualization with the ultrasound. After adequate anesthetization was achieved, the Internal Jugular vein was cannulated under direct ultrasound guidance using an introducer needle on a syringe. Good venous blood return was maintained prior to removal of syringe from introducer needle. Using Seldinger Technique, a guide wire was advanced through the introducer needle without resistance. The introducer needle was removed and ultrasound images were obtained of the guide wire within the Internal Jugular Vein. These images were unable to be saved to the patients medical record due to technical issues. A small incision was made in penetrating fashion at the guide wire insertion site utilizing an 11 blade scalpel. The dilator was advanced to the vessel without resistance. The dilator was exchanged for the triple lumen catheter which was advanced into the vessel without resistance. The guide wire was removed intact from the catheter without issue. Claves were placed on each catheter tip with confirmation of good blood flow from each lumen. Each port was easily flushed with sterile saline. The catheter was placed at at the hub and sutured in place. BioPatch was applied to the catheter and a sterile Tegaderm dressing was applied over the catheter with careful attention to sterility. Patient tolerated procedure well. No immediate complications were met. Post procedure x-ray was completed, placement was appropriate and no pneumothorax was noted. Coding CPT Codes Tubes, Drains, and Vasc Access - Tubes, Drains, and Vasc Access: [id number] Place catheter in vein superior or inferior vena cava ([id number]) Tubes, Drains, and Vasc Access - Tubes, Drains, and Vasc Access: [id number] Ultrasound Guidance For Vascular ([id number]) [facility] Procedure Codes (Charges) Tubes, Drains, and Vasc Access Procedure 1: Tubes, Drains, and Vasc Access: [id number] Place catheter in vein superior or inferior vena cava Procedure 2: Tubes, Drains, and Vasc Access: [id number] Ultrasound Guidance For Vascular
[2019-11-16] MEDS ORDERED: POTASSIUM CHLORIDE 20 MEQ TABCR PO STA (16:46)
[2019-11-16] MEDS ORDERED: Nursing to Pharmacy Communication SCH (17:00)
[2019-11-16] MEDS ORDERED: HYDROmorphone INJ 0.5 MG/0.5 ML SYR IV STA (17:13)
[2019-11-16] MEDS: MAGNESIUM SULFATE / D5W 1 GM/100 ML BAG IV SCH ×2 (17:14→19:29)
[2019-11-16] MEDS: FAMOTIDINE 20 MG in SYRINGE 3 ML IV SCH (17:19)
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
[2019-11-16] MEDS ORDERED: MIDAZOLAM HCL 1 MG/ML 2ML VIAL ONE (17:32)
[2019-11-16] MEDS ORDERED: PROPOFOL IV EMULSION 10 MG/ML 20 ML VIAL IV ONE (17:32)
[2019-11-16] MEDS ORDERED: fentaNYL citrate 100 MCG/2 ML VIAL ONE (17:32)
[2019-11-16] MEDS ORDERED: ONDANSETRON INJ 2 MG/ML 2 ML VIAL IV PRN (17:45)
[2019-11-16] MEDS ORDERED: ATROPINE SULFATE 0.1 MG/ML 10ML SYR IV PRN (17:45)
[2019-11-16] MEDS ORDERED: ePHEDrine sulfate 50 MG/ML AMP IV PRN (17:45)
[2019-11-16] MEDS ORDERED: fentaNYL citrate 100 MCG/2 ML VIAL IV PRN (17:45)
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
[2019-11-16 17:59] LABS: Appearance Urine Turbid (Clear); Bacteria Urine Automated Negative (Negative); Bilirubin Urine Negative (Negative); Blood Urine 3+ (Negative); Color Urine Yellow; Epithelial Cell Urine Auto >30 /lpf (0-5); Glucose Urine UA Negative (Negative); Ketones Urine Negative (Negative); Leukocyte Esterase Urine 3+ (Negative); Nitrite Urine Negative (Negative); Protein Urine 2+ (Negative); Specific Gravity Urine 1.013 (1.000-1.030); Urobilinogen Urine Negative (Negative); WBC Urine Automated >30 /hpf (0-5)
[2019-11-16 18:20] LABS: Cast Urine Automated 0 /lpf (0-5)
[2019-11-16] MEDS ORDERED: IOTHALAMATE MEGLUMINE II 17.2% 250 ML VIAL INSTIL ONE (18:59)
--- NOTE | 2019-11-16 19:28 | Operative Report ---
PG Post Operative Report Pre & Post Diagnosis Operation Date: 11/16/19 17:25 Pre-Op Diagnosis: Urosepsis Post-Op Diagnosis: Urosepsis I identified the patient and participated in the time-out.: Yes Procedure Operation Date: 11/16/19 17:25 Actual Procedures p Cystoscopy, Bilateral Retrograde Pyelogram, Bilateral Stent Insertion(Bilateral) - Leonid Sim MD Surgeon Leonid Sim MD Supervisor Cigar Making Hand None Estimated Blood Loss 0 Findings See Below Scopic exam revealed a normal anterior urethra prostatic fossa was moderately obstructing with primarily an elevated median lobe. Bladder showed a lot of edema from a Camp catheter. Left retrograde pyelogram showed a very tortuous ureter with several areas of spiraling. Right ureter also was tortuous but not quite as bad as the left there was hydroureteronephrosis on both sides Specimens None Drains 6 Tajik multilength left and right ureteral stent Anesthesia Type MAC Complications none Disposition Accompanied Patient To Recovery: Yes Disposition: Surgical ICU Indications 59-year-old paraplegic male who was admitted to the hospital with urosepsis. CT scan showed bilateral hydroureteronephrosis. Was felt that the bilateral obstruction was due to fecal impactio he is being brought in now for stent placements Description of Procedure After the induction of an adequate level of intravenous sedation and appropriate timeout patient was placed in the dorsolithotomy position. He is very contracted so it was somewhat difficult to position him. Next using a 22 Tajik scope routine cystoscopic exam was performed with the above-noted findings. Following this the left ureter orifice was identified open-ended catheter 5 Tajik was then passed into the opening of the ureteral orifice and a retrograde pyelogram was performed with the above-noted findings next under fluoroscopic guidance 0.03 guidewire was passed through the open-ended catheter and up the ureter. There were multiple areas where the ureter twisted on itself but I was eventually able to straighten the ureter out enough to get the guidewire into the renal pelvis confirmed by fluoroscopy. Next a 6 Tajik MultiLink stent was passed over the guidewire under fluoroscopic guidance to position the renal pelvis. Guidewire was removed there was good curl at the bladder level. Identical procedure was then performed on the right side. After placing both stents the patient's bladder was filled cystoscope was removed and a 18 Tajik Camp catheter was inserted per urethra into the bladder and hooked to gravity drainage. All needle sponge and instrument counts were correct at the end of the case. Patient tolerated the procedure well was taken back to the ICU in stable condition I attest to the content of the Intraoperative Record and any orders documented therein. Any exceptions are noted below.
[2019-11-16] MEDS: PIPERACILLIN/TAZOBACTAM 4.5 GM in DEXTROSE 5% 100 ML IV SCH (19:30)
--- NOTE | 2019-11-16 19:30 | Anesthesiology Progress Note ---
Date of Service November 16, 2019 Anesthesia Post Procedure Vital Signs Vital Signs: Temp Pulse Pulse Resp BP BP Pulse Ox 11/16/19 19:25 36.6 C 93 H 18 104/78 94 11/16/19 19:11 36.6 C 97 H 20 100/73 97 11/16/19 17:50 102 H 26 H 95 11/16/19 17:47 102 H 27 H 102/72 95 11/16/19 17:40 104 H 21 93 11/16/19 17:31 103 H 26 H 103/70 94 11/16/19 17:30 104 H 30 H 94 11/16/19 17:20 104 H 23 95 11/16/19 17:16 105 H 23 108/82 95 11/16/19 17:10 104 H 26 H 93 11/16/19 17:01 104 H 26 H 110/79 95 11/16/19 17:00 105 H 29 H 94 11/16/19 16:50 104 H 26 H 95 11/16/19 16:46 105 H 23 112/82 93 11/16/19 16:40 105 H 26 H 93 11/16/19 16:31 105 H 24 107/82 95 11/16/19 16:30 105 H 25 H 95 11/16/19 16:20 105 H 26 H 95 11/16/19 16:16 106 H 25 H 112/81 92 11/16/19 16:10 105 H 25 H 95 11/16/19 16:01 106 H 24 115/88 93 11/16/19 16:00 105 H 23 95 11/16/19 15:50 105 H 23 96 11/16/19 15:46 105 H 23 110/83 96 11/16/19 15:40 104 H 31 H 95 11/16/19 15:31 104 H 22 101/76 94 11/16/19 15:30 105 H 22 95 11/16/19 15:20 105 H 25 H 95 11/16/19 15:16 105 H 23 98/75 L 96 11/16/19 15:10 105 H 26 H 94 11/16/19 15:01 105 H 27 H 111/85 96 11/16/19 15:00 106 H 27 H 94 11/16/19 14:31 104 H 18 101/76 97 11/16/19 14:30 103 H 24 94 11/16/19 14:16 104 H 22 101/73 96 11/16/19 14:15 103 H 25 H 96 11/16/19 14:02 105 H 26 H 108/74 93 11/16/19 14:00 103 H 23 95 11/16/19 13:49 36.7 C 103 H 101 H 26 H 108/74 108/74 95 11/16/19 13:47 103 H 21 96 11/16/19 13:45 103 H 27 H 96 11/16/19 13:38 103 H 22 80 L 11/16/19 13:35 104 H 11/16/19 13:31 36.7 C 102 H 29 H 112/73 79 L Transfer of Care Handoff Completed per policy Notes Mental Status: alert / awake / arousable and participated in evaluation Nausea / Vomiting: adequately controlled Pain: adequately controlled Airway Patency, RR, SpO2: stable & adequate BP & HR: stable & adequate Hydration State: stable & adequate Anesthetic Complications: no major complications apparent and Pt Satisfied with anesthetic care
--- NOTE | 2019-11-16 20:21 | Fluoroscopy Report ---
FL retrograde includes kub CLINICAL HISTORY: B/L RETROGRADE/STENT PLACEMENT COMPARISON STUDY: None. FLUOROSCOPY TIME: 2 minutes and 59 seconds. FINDINGS: 3 fluoroscopic spot images of the abdomen and pelvis were submitted. Opacification and guid ewire seen within the bilateral renal collecting systems placed in a retrograde fashion. This is foll owed by placement of bilateral ureteral stents. The distal stents are noted but appear in good positi on. IMPRESSION: Fluoroscopy provided for bilateral ureteral stent placements. ACT 112: Negative or not required by law. Electronically signed by: Adrian Martinez M.D. 11/16/2019 8:20 PM
[2019-11-16] MEDS ORDERED: POTASSIUM CHLORIDE 20 MEQ TABCR PO ONE (21:00)
[2019-11-16] MEDS ORDERED: ALBUMIN 25% 50 ML IV SCH (21:15)
[2019-11-16] MEDS: TRIAMCINOLONE ACET 0.1% CR 15 GM TUBE TOP SCH (21:22)
[2019-11-16] MEDS: ATORVASTATIN 20 MG TAB PO SCH (21:23)
[2019-11-16] MEDS: AMITRIPTYLINE HCL 50 MG TAB PO SCH (21:23)
[2019-11-16] MEDS: PANTOprazole 40 MG TAB PO SCH (21:24)
[2019-11-17] MEDS: OXYCODONE/ACETAMINOPHEN 10-325 TAB PO PRN ×4 (01:47→23:37)
[2019-11-17] MEDS: PIPERACILLIN/TAZOBACTAM 4.5 GM in DEXTROSE 5% 100 ML IV SCH ×3 (03:58→20:33)
[2019-11-17] MEDS: NORMOSOL-R 1,000 ML IV SCH (03:58)
[2019-11-17 04:39] LABS: INR 1.3 (0.9-1.1); Prothrombin Time 13.3 Seconds (9.0-12.0)
[2019-11-17 04:51] LABS: Albumin Level 2.3 gm/dl (3.4-5.0); BUN Creatinine Ratio 23.7 (10-20); Bilirubin Direct 0.2 mg/dl (0-0.2); Bilirubin,Total 0.5 mg/dl (0.2-1); Calcium 7.2 mg/dl (8.5-10.1); Creatinine Clr Calc Pharmacy 61.8 ml/min; Est GFR (African American) 62.1; Est GFR (Non-African American) 53.6; Magnesium 2.1 mg/dl (1.8-2.4); Phosphorus 4.9 mg/dl (2.5-4.9); Potassium 4.2 mmol/L (3.5-5.1); Total Protein 5.5 gm/dl (6.4-8.2)
[2019-11-17 04:52] LABS: Hematocrit (blood only) 28.1 % (42-52); Hemoglobin 9.6 g/dL (14.0-18.0); Mean Corpuscular Hemoglobin 29.8 pg (25-34); Mean Corpuscular Hgb Conc 34.2 g/dL (32-36); Mean Corpuscular Volume 87.3 fL (80-100); Mean Platelet Volume 9.2 fL (7.4-10.4); Platelet Count 251 K/uL (130-400); RDW Coefficient of Variation 17.6 % (11.5-14.5); RDW Standard Deviation 55.7 fL (36.4-46.3); Red Blood Count 3.22 M/uL (4.7-6.1); White Blood Count 37.05 K/uL (4.8-10.8)
[2019-11-17 05:00] LABS: Basophils # (auto) 0.01 K/uL (0-0.2); Dohle Bodies Occasional; Echinocytes 2+; Eosinophils # (auto) 0.01 K/uL (0-0.5); Immature Granulocytes # (auto) 3.24 K/uL (0.00-0.02); Immature Granulocytes % (auto) 8.7 %; Lymphocytes # (auto) 0.92 K/uL (1.2-3.4); Lymphocytes % (auto) 2.5 %; Monocytes # (auto) 0.88 K/uL (0.11-0.59); Monocytes % (auto) 2.4 %; Neutrophils # (auto) 31.99 K/uL (1.4-6.5); Neutrophils % (auto) 86.4 %; Target Cells 1+; Toxic Vacuolation 1+
[2019-11-17] MEDS: FAMOTIDINE 20 MG in SYRINGE 3 ML IV SCH (06:17)
[2019-11-17 07:23] LABS: Howell-Jolly Bodies Occasional
[2019-11-17] MEDS ORDERED: [UNRECOGNIZED DRUG - REMARK] SCH (08:00)
--- NOTE | 2019-11-17 08:05 | Urology Progress Note ---
Date of Service November 17, 2019 Assessment & Plan (1) Hydroureteronephrosis: Postop day #1 status post emergent bilateral stent placement His creatinine has improved slightly overnight He feels well Continue to monitor We will follow from the periphery as I do not anticipate further in terventions during this hospitalization Continue Camp catheter We will arrange for outpatient management of the stents Admission and Anticipated Discharge Date Admission Date: November 16, 2019 Subjective Denies major complaints this morning He is fatigued but otherwise feels okay He has not moved his bowels since admission No complaintsFoley catheter in placelimited sensation Physical Exam Physical Exam: Urine clearFoley Constitutional: well developed and well nourished Respiratory: no respiratory distress Cardiovascular: Extremities: no pedal edema Gastrointestinal (Abdomen): Inspection/Auscultation: abdomen normal to inspection Results & Data ([facility]) Vital Signs (Past 12 Hours) Vital Signs Temp Pulse Resp BP Pulse Ox 11/17/19 06:36 94 H 24 100/66 99 11/17/19 06:30 96 H 28 H 104/65 98 11/17/19 06:27 95 H 25 H 61/49 L 96 11/17/19 06:16 94 H 19 129/72 95 11/17/19 06:06 92 H 19 118/76 90 11/17/19 06:00 96 H 19 96 11/17/19 05:56 94 H 20 124/75 94 11/17/19 05:46 94 H 19 115/65 94 11/17/19 05:36 91 H 18 127/76 92 11/17/19 05:26 97 H 18 107/67 96 11/17/19 05:16 93 H 19 128/71 91 11/17/19 05:06 96 H 19 110/78 96 11/17/19 05:00 93 H 20 90 11/17/19 04:56 94 H 18 116/71 94 11/17/19 04:46 97 H 17 119/76 96 11/17/19 04:36 95 H 20 96/65 L 94 11/17/19 04:26 93 H 18 116/67 94 11/17/19 04:16 93 H 18 113/72 94 11/17/19 04:06 36.7 C 95 H 19 119/74 96 11/17/19 04:00 93 H 17 93 11/17/19 03:56 94 H 18 103/74 93 11/17/19 03:45 94 H 19 119/71 95 11/17/19 03:36 94 H 18 110/74 96 11/17/19 03:26 91 H 18 109/60 92 11/17/19 03:15 92 H 18 101/66 94 11/17/19 03:05 91 H 25 H 110/63 90 11/17/19 03:00 93 H 17 94 11/17/19 02:56 94 H 19 98/70 L 94 11/17/19 02:45 91 H 18 105/66 93 11/17/19 02:35 91 H 18 95/61 L 93 11/17/19 02:25 90 17 95/65 L 96 11/17/19 02:15 88 15 104/66 96 11/17/19 02:06 93 H 24 102/72 97 11/17/19 02:00 91 H 21 98 11/17/19 01:55 93 H 23 111/66 99 11/17/19 01:46 96 H 29 H 111/80 100 11/17/19 01:36 89 23 99/65 L 94 11/17/19 01:25 90 28 H 122/69 98 11/17/19 01:15 95 H 24 103/75 98 11/17/19 01:05 91 H 24 124/76 95 11/17/19 01:00 90 25 H 93 11/17/19 00:55 91 H 22 108/79 95 11/17/19 00:45 91 H 26 H 111/73 95 11/17/19 00:35 91 H 20 111/73 97 11/17/19 00:25 91 H 31 H 119/76 94 11/17/19 00:15 92 H 24 106/75 97 11/17/19 00:05 36.7 C 90 27 H 110/76 89 L 11/17/19 00:00 93 H 24 98 11/16/19 23:55 90 28 H 110/76 92 11/16/19 23:45 94 H 31 H 103/69 93 11/16/19 23:35 92 H 33 H 115/71 89 L 11/16/19 23:25 95 H 27 H 102/63 98 11/16/19 23:15 95 H 27 H 98/66 L 97 11/16/19 23:05 90 31 H 101/75 93 11/16/19 23:00 95 H 27 H 98 11/16/19 22:55 92 H 25 H 108/74 88 L 11/16/19 22:45 92 H 25 H 91/63 L 86 L 11/16/19 22:35 89 22 105/72 90 11/16/19 22:25 95 H 21 116/70 94 11/16/19 22:15 91 H 26 H 114/72 85 L 11/16/19 22:05 90 24 112/72 84 L 11/16/19 22:00 89 17 94 11/16/19 21:55 89 16 121/75 95 11/16/19 21:46 90 15 95/72 L 97 11/16/19 21:26 94 H 22 95/68 L 83 L 11/16/19 21:21 99 H 20 113/76 97 11/16/19 21:16 96 H 19 100/70 100 11/16/19 21:11 96 H 19 98/80 L 100 11/16/19 21:06 97 H 19 99/73 L 100 11/16/19 21:01 98 H 18 106/79 100 11/16/19 21:00 98 H 18 100 11/16/19 20:56 98 H 18 108/63 99 11/16/19 20:51 97 H 19 112/74 100 11/16/19 20:46 98 H 20 122/74 99 11/16/19 20:42 98 H 20 119/69 99 11/16/19 20:36 100 H 19 125/82 98 11/16/19 20:31 98 H 22 107/65 99 11/16/19 20:26 98 H 20 112/80 99 11/16/19 20:21 98 H 21 114/79 98 11/16/19 20:16 99 H 21 123/86 99 11/16/19 20:11 99 H 21 117/84 99 11/16/19 20:06 97 H 20 122/82 99 PG Care Time/CCT Total # of Minutes Spent Total Time Spent with Patient: Total time spent is greater than 50% in coordination of care (as documented) at patient's floor/unit and/or counseling patient: Coding Level of Care Code 57552 Subseq Hosp Care Lvl 2 Diagnoses Hydroureteronephrosis N13.30
[2019-11-17] MEDS: FERROUS SULFATE 325 MG TAB PO SCH (08:08)
[2019-11-17] MEDS: ASPIRIN 81 MG ECTAB PO SCH (08:08)
[2019-11-17] MEDS: PANTOprazole 40 MG TAB PO SCH ×2 (08:09→20:32)
[2019-11-17] MEDS: SENNA 8.6 MG TAB PO SCH (08:09)
[2019-11-17] MEDS: FLUOXETINE HCL 20 MG CAP PO SCH (08:09)
[2019-11-17] MEDS: TRIAMCINOLONE ACET 0.1% CR 15 GM TUBE TOP SCH ×2 (08:09→20:33)
[2019-11-17] MEDS ORDERED: MULTIVITAMIN TAB PO SCH (09:00)
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
[2019-11-17] MEDS ORDERED: AZITHROMYCIN 250 MG TAB PO ONE (09:30)
[2019-11-17] MEDS ORDERED: DOCUSATE SODIUM 100 MG CAP PO ONE (11:00)
--- NOTE | 2019-11-17 14:33 | Hospitalist Progress Note ---
Date of Service November 17, 2019 Assessment & Plan (1) Pyelonephritis of right kidney: Bilateral hydroureteronephrosis secondary to fecal impaction. - Underwent cystoscopy and bilateral ureteral stent placement with Dr. Sim on 11/15. - Continue Zosyn - Follow cultures -> Blood culture growing Gram(+) cocci in clusters in 1/4 bottles. Repeat cultures drawn. (2) Acute renal failure (ARF): Likely combination of pre-renal from sepsis and ATN as well as obstructive. - Cr was 2.0 on admission; down to 1.4 today. - Continue IV fluids - Repeat BMP with AM labs (3) Fecal impaction: Will start good bowel regimen. (4) Septic shock: Due to kidney infection. Norepinephrine weaned off around midnight of 11/16. - Resolving (5) GERD (gastroesophageal reflux disease): Hx of Beck's esophagus. Burning sensation in esophagus for last 2 days prior to admission. CT chest on 11/15 at [facility] showed distal fluid filled esophagus. - PPI PO BID - Monitor for aspiration. (6) Paraplegia following spinal cord injury: Paraplegia since 1979. - PT/OT (7) DVT prophylaxis: Heparin 5,000 units SQ Q12h Admission and Anticipated Discharge Date Admission Date: November 16, 2019 Subjective Feeling better today. No major concerns. Appetite ok. Reports no fevers/chills, chest pain, shortness of breath, abdominal pain, nausea, or vomiting. Physical Exam Constitutional: WD/WN, vitals as above Eyes: EOM intact bilaterally; no conjunctival abnormality ENMT: external ear and nose normal, oropharynx normal Neck: trachea midline, no thyromegaly normal visual inspection Respiratory: normal respiratory effort, lungs clear to auscultation no respiratory distress Cardiovascular: Rate/Rhythm: regular rate and + tachycardic Heart Sounds: normal S1 and normal S2 Extremities: no edema Gastrointestinal (Abdomen): Inspection/Auscultation: abdomen normal to inspection; abdomen not distended Musculoskeletal: no cyanosis or clubbing, extremities motor strength 5/5 Skin: no rashes, warm and dry Neurologic: moves all extremities and awake Psychiatric: Orientation: alert, oriented to person and cooperative Results & Data Results & Data ([facility]) Vital Signs (Past 12 Hours) Vital Signs Temp Pulse Resp BP Pulse Ox 11/17/19 13:00 94 H 17 107/68 96 11/17/19 12:00 36.5 C 98 H 24 112/71 95 11/17/19 11:00 96 H 28 H 109/77 97 11/17/19 10:06 36.5 C 98 H 28 H 104/68 97 11/17/19 10:00 98 H 23 96 11/17/19 09:56 98 H 32 H 121/76 97 11/17/19 09:46 96 H 25 H 105/65 97 11/17/19 09:36 97 H 31 H 108/73 97 11/17/19 09:27 98 H 32 H 106/80 97 11/17/19 09:16 95 H 18 115/74 95 11/17/19 09:06 97 H 22 113/71 97 11/17/19 09:00 97 H 27 H 93 11/17/19 08:56 98 H 23 121/76 96 11/17/19 08:46 97 H 25 H 107/70 96 11/17/19 08:36 96 H 20 118/66 96 11/17/19 08:26 89 20 110/59 L 90 11/17/19 08:16 94 H 25 H 100/66 97 11/17/19 08:06 96 H 28 H 86/49 L 97 11/17/19 08:00 36.5 C 90 21 91 11/17/19 07:56 90 30 H 110/64 90 11/17/19 07:46 95 H 21 106/59 L 97 11/17/19 07:36 93 H 20 114/55 L 96 11/17/19 07:26 96 H 28 H 89/64 L 97 11/17/19 07:16 96 H 20 97/63 L 96 11/17/19 07:08 90 32 H 100/51 L 92 11/17/19 07:00 87 27 H 92 11/17/19 06:36 94 H 24 100/66 99 11/17/19 06:30 96 H 28 H 104/65 98 11/17/19 06:27 95 H 25 H 61/49 L 96 11/17/19 06:16 94 H 19 129/72 95 11/17/19 06:06 92 H 19 118/76 90 11/17/19 06:00 96 H 19 96 11/17/19 05:56 94 H 20 124/75 94 11/17/19 05:46 94 H 19 115/65 94 11/17/19 05:36 91 H 18 127/76 92 11/17/19 05:26 97 H 18 107/67 96 11/17/19 05:16 93 H 19 128/71 91 11/17/19 05:06 96 H 19 110/78 96 11/17/19 05:00 93 H 20 90 11/17/19 04:56 94 H 18 116/71 94 11/17/19 04:46 97 H 17 119/76 96 11/17/19 04:36 95 H 20 96/65 L 94 11/17/19 04:26 93 H 18 116/67 94 11/17/19 04:16 93 H 18 113/72 94 11/17/19 04:06 36.7 C 95 H 19 119/74 96 11/17/19 04:00 93 H 17 93 11/17/19 03:56 94 H 18 103/74 93 11/17/19 03:45 94 H 19 119/71 95 11/17/19 03:36 94 H 18 110/74 96 11/17/19 03:26 91 H 18 109/60 92 11/17/19 03:15 92 H 18 101/66 94 11/17/19 03:05 91 H 25 H 110/63 90 11/17/19 03:00 93 H 17 94 11/17/19 02:56 94 H 19 98/70 L 94 11/17/19 02:45 91 H 18 105/66 93 11/17/19 02:35 91 H 18 95/61 L 93 PG Care Time/CCT Total # of Minutes Spent Total Time Spent with Patient: Total time spent is greater than 50% in coordination of care (as documented) at patient's floor/unit and/or counseling patient: Coding Level of Care Code 37734 Subseq Hosp Care Lvl 3 Diagnoses Pyelonephritis of right kidney N12 Acute renal failure (ARF) N17.9 Acute renal failure type: unspecified Fecal impaction K56.41 Septic shock A41.9; R65.21 GERD (gastroesophageal reflux disease) K21.9 Esophagitis presence: without esophagitis Paraplegia following spinal cord injury G82.20 DVT prophylaxis Z29.9 (1) Acute renal failure (ARF) Acute renal failure type: unspecified Qualified Code(s): N17.9 - Acute kidney failure, unspecified (2) GERD (gastroesophageal reflux disease) Esophagitis presence: without esophagitis Qualified Code(s): K21.9 - Gastro- esophageal reflux disease without esophagitis
[2019-11-17] MEDS ORDERED: MAGNESIUM CITRATE 296 ML/BTL PO STA (14:53)
[2019-11-17] MEDS ORDERED: VANCOMYCIN CONSULT ACTIVE PRN (14:53)
[2019-11-17] MEDS: NOREPINEPHRINE BIT INJ 8 MG in DEXTROSE 5% 500 ML IV SCH (14:56)
[2019-11-17] MEDS ORDERED: SOD PHOSPHATE/SOD BIPHOSPHATE ENEMA 132 ML BTL PR ONE (15:00)
[2019-11-17] MEDS ORDERED: VANCOMYCIN HCL 1,750 MG in SODIUM CHLORIDE 0.9% 500 ML IV STA (15:02)
--- NOTE | 2019-11-17 15:03 | Urology Progress Note ---
Date of Service November 17, 2019 Assessment & Plan Admission and Anticipated Discharge Date Admission Date: November 16, 2019 Subjective Saw the patient earlier today. He states he feels much better than yesterday He has remained afebrile Blood pressure is improved Denies any flank pain Urine output is excellent White count down to 37 creatinine down to 2.4 Assessment Urosepsis bilateral ureteral obstruction secondary to fecal impaction Patient doing well post stent placement and resuscitation Since patient had an ongoing problem with his bowels he may benefit from a colostomy No further urologic intervention planned will see patient after discharge to manage the stents Results & Data ([facility]) Vital Signs (Past 12 Hours) Vital Signs Temp Pulse Resp BP Pulse Ox 11/17/19 10:00 98 H 23 96 11/17/19 09:56 98 H 32 H 121/76 97 11/17/19 09:46 96 H 25 H 105/65 97 11/17/19 09:36 97 H 31 H 108/73 97 11/17/19 09:27 98 H 32 H 106/80 97 11/17/19 09:16 95 H 18 115/74 95 11/17/19 09:06 97 H 22 113/71 97 11/17/19 09:00 97 H 27 H 93 11/17/19 08:56 98 H 23 121/76 96 11/17/19 08:46 97 H 25 H 107/70 96 11/17/19 08:36 96 H 20 118/66 96 11/17/19 08:26 89 20 110/59 L 90 11/17/19 08:16 94 H 25 H 100/66 97 11/17/19 08:06 96 H 28 H 86/49 L 97 11/17/19 08:00 36.5 C 90 21 91 11/17/19 07:56 90 30 H 110/64 90 11/17/19 07:46 95 H 21 106/59 L 97 11/17/19 07:36 93 H 20 114/55 L 96 11/17/19 07:26 96 H 28 H 89/64 L 97 11/17/19 07:16 96 H 20 97/63 L 96 11/17/19 07:08 90 32 H 100/51 L 92 11/17/19 07:00 87 27 H 92 11/17/19 06:36 94 H 24 100/66 99 11/17/19 06:30 96 H 28 H 104/65 98 11/17/19 06:27 95 H 25 H 61/49 L 96 11/17/19 06:16 94 H 19 129/72 95 11/17/19 06:06 92 H 19 118/76 90 11/17/19 06:00 96 H 19 96 11/17/19 05:56 94 H 20 124/75 94 11/17/19 05:46 94 H 19 115/65 94 11/17/19 05:36 91 H 18 127/76 92 11/17/19 05:26 97 H 18 107/67 96 11/17/19 05:16 93 H 19 128/71 91 11/17/19 05:06 96 H 19 110/78 96 11/17/19 05:00 93 H 20 90 11/17/19 04:56 94 H 18 116/71 94 11/17/19 04:46 97 H 17 119/76 96 11/17/19 04:36 95 H 20 96/65 L 94 11/17/19 04:26 93 H 18 116/67 94 11/17/19 04:16 93 H 18 113/72 94 11/17/19 04:06 36.7 C 95 H 19 119/74 96 11/17/19 04:00 93 H 17 93 11/17/19 03:56 94 H 18 103/74 93 11/17/19 03:45 94 H 19 119/71 95 11/17/19 03:36 94 H 18 110/74 96 11/17/19 03:26 91 H 18 109/60 92 11/17/19 03:15 92 H 18 101/66 94 11/17/19 03:05 91 H 25 H 110/63 90 11/17/19 03:00 93 H 17 94 11/17/19 02:56 94 H 19 98/70 L 94 11/17/19 02:45 91 H 18 105/66 93 11/17/19 02:35 91 H 18 95/61 L 93 11/17/19 02:25 90 17 95/65 L 96 11/17/19 02:15 88 15 104/66 96 11/17/19 02:06 93 H 24 102/72 97 11/17/19 02:00 91 H 21 98 11/17/19 01:55 93 H 23 111/66 99 11/17/19 01:46 96 H 29 H 111/80 100 11/17/19 01:36 89 23 99/65 L 94 11/17/19 01:25 90 28 H 122/69 98 11/17/19 01:15 95 H 24 103/75 98 11/17/19 01:05 91 H 24 124/76 95 11/17/19 01:00 90 25 H 93 11/17/19 00:55 91 H 22 108/79 95 11/17/19 00:45 91 H 26 H 111/73 95 11/17/19 00:35 91 H 20 111/73 97 11/17/19 00:25 91 H 31 H 119/76 94 11/17/19 00:15 92 H 24 106/75 97 11/17/19 00:05 36.7 C 90 27 H 110/76 89 L 11/17/19 00:00 93 H 24 98 11/16/19 23:55 90 28 H 110/76 92 11/16/19 23:45 94 H 31 H 103/69 93 11/16/19 23:35 92 H 33 H 115/71 89 L 11/16/19 23:25 95 H 27 H 102/63 98 PG Care Time/CCT Total # of Minutes Spent Total Time Spent with Patient: Total time spent is greater than 50% in coordination of care (as documented) at patient's floor/unit and/or counseling patient: Coding Level of Care Code None
--- NOTE | 2019-11-17 15:05 | Electrocardiogram Report ---
Test Reason : Blood Pressure : / mmHG Vent. Rate : 105 BPM Atrial Rate : 105 BPM P-R Int : 144 ms QRS Dur : 106 ms QT Int : 334 ms P-R-T Axes : 062 021 062 degrees QTc Int : 441 ms Sinus tachycardia Possible Left atrial enlargement RSR' or QR pattern in V1 suggests right ventricular conduction delay Borderline ECG When compared with ECG of 24-AUG-2019 14:47, ST no longer depressed in Anterior leads T wave amplitude has decreased in Inferior leads Nonspecific T wave abnormality now evident in Anterior leads QT has shortened Confirmed by Andrea Boone ([id number]) on 11/17/2019 3:05:46 PM Referred By: Randell Trevino Confirmed By:Andrea Boone
--- NOTE | 2019-11-17 15:16 | Electrocardiogram Report ---
Test Reason : Blood Pressure : / mmHG Vent. Rate : 096 BPM Atrial Rate : 096 BPM P-R Int : 146 ms QRS Dur : 110 ms QT Int : 396 ms P-R-T Axes : 044 024 083 degrees QTc Int : 500 ms Normal sinus rhythm RSR' or QR pattern in V1 suggests right ventricular conduction delay Nonspecific ST and T wave abnormality Prolonged QT Abnormal ECG When compared with ECG of 16-NOV-2019 14:42, (unconfirmed) Nonspecific T wave abnormality, worse in Lateral leads QT has lengthened Confirmed by Andrea Boone ([id number]) on 11/17/2019 3:15:50 PM Referred By: Randell Trevino Confirmed By:Andrea Boone
[2019-11-17] MEDS ORDERED: ALUMINUM/MAGNESIUM/SIMETH (MAALOX MAX) 30 ML UDC PO PRN (16:34)
[2019-11-17] MEDS: AMITRIPTYLINE HCL 50 MG TAB PO SCH (20:32)
[2019-11-17] MEDS: ATORVASTATIN 20 MG TAB PO SCH (20:32)
[2019-11-17] MEDS: DOCUSATE SODIUM 100 MG CAP PO SCH (20:33)
[2019-11-18] MEDS: PIPERACILLIN/TAZOBACTAM 4.5 GM in DEXTROSE 5% 100 ML IV SCH ×3 (04:15→19:49)
[2019-11-18 06:20] LABS: Hematocrit (blood only) 28.4 % (42-52); Hemoglobin 9.4 g/dL (14.0-18.0); Mean Corpuscular Hemoglobin 29.1 pg (25-34); Mean Corpuscular Hgb Conc 33.1 g/dL (32-36); Mean Corpuscular Volume 87.9 fL (80-100); Nucleated RBC # (auto) 0.19 K/uL (0-0); Nucleated RBC % (auto) 0.5 %; Platelet Count 216 K/uL (130-400); RDW Coefficient of Variation 17.7 % (11.5-14.5); RDW Standard Deviation 56.7 fL (36.4-46.3); Red Blood Count 3.23 M/uL (4.7-6.1); White Blood Count 38.13 K/uL (4.8-10.8)
[2019-11-18 06:29] LABS: Basophils # (auto) 0.04 K/uL (0-0.2); Basophils % (auto) 0.1 %; Dohle Bodies 1+; Echinocytes 1+; Eosinophils # (auto) 0.29 K/uL (0-0.5); Eosinophils % (auto) 0.8 %; Immature Granulocytes # (auto) 0.39 K/uL (0.00-0.02); Lymphocytes # (auto) 0.99 K/uL (1.2-3.4); Lymphocytes % (auto) 2.6 %; Monocytes # (auto) 0.55 K/uL (0.11-0.59); Monocytes % (auto) 1.4 %; Neutrophils # (auto) 35.87 K/uL (1.4-6.5); Neutrophils % (auto) 94.1 %; Target Cells 1+
[2019-11-18 06:49] LABS: Albumin Level 1.9 gm/dl (3.4-5.0); BUN Creatinine Ratio 27.2 (10-20); Bilirubin Direct 0.2 mg/dl (0-0.2); Bilirubin,Total 0.6 mg/dl (0.2-1); Calcium 7.9 mg/dl (8.5-10.1); Creatinine Clr Calc Pharmacy 90.2 ml/min; Est GFR (African American) 98.1; Est GFR (Non-African American) 84.6; Magnesium 2.5 mg/dl (1.8-2.4); Phosphorus 2.9 mg/dl (2.5-4.9); Potassium 2.4 mmol/L (3.5-5.1); Total Protein 5.4 gm/dl (6.4-8.2)
[2019-11-18] MEDS: OXYCODONE/ACETAMINOPHEN 10-325 TAB PO PRN ×3 (07:12→18:45)
[2019-11-18] MEDS: FLUOXETINE HCL 20 MG CAP PO SCH (08:59)
[2019-11-18] MEDS: DOCUSATE SODIUM 100 MG CAP PO SCH ×2 (08:59→19:54)
[2019-11-18] MEDS: FERROUS SULFATE 325 MG TAB PO SCH (09:00)
[2019-11-18] MEDS: PANTOprazole 40 MG TAB PO SCH ×2 (09:00→19:54)
[2019-11-18] MEDS: SENNA 8.6 MG TAB PO SCH (09:00)
[2019-11-18] MEDS: AZITHROMYCIN 250 MG TAB PO SCH (09:00)
[2019-11-18] MEDS: ASPIRIN 81 MG ECTAB PO SCH (09:00)
[2019-11-18] MEDS: TRIAMCINOLONE ACET 0.1% CR 15 GM TUBE TOP SCH ×2 (09:01→19:54)
[2019-11-18] MEDS: POTASSIUM CHLORIDE / WTR 20 MEQ/100 ML PLCT IV SCH ×4 (09:45→16:04)
--- NOTE | 2019-11-18 11:00 | Urology Progress Note ---
Date of Service November 18, 2019 Assessment & Plan Admission and Anticipated Discharge Date Admission Date: November 16, 2019 Subjective Postop day #2 bilateral ureteral stents Patient's afebrile vital signs are stable He says he is feeling much better Denies any flank pain Moving his bowels well after having an enema Tolerating p.o. Urine output good White blood cell count down to 38 Creatinine normalized at 0.9 Assessment probable urosepsis Continue current medical treatment No further urologic intervention planned during this admission Patient will need to follow-up in our office after discharge Use reconsult if needed Results & Data ([facility]) Vital Signs (Past 12 Hours) Vital Signs Temp Pulse Pulse Resp BP Pulse Ox 11/18/19 08:56 102 H 106/72 11/18/19 06:51 36.9 C 100 H 18 153/101 H 97 11/18/19 04:32 36.7 C 100 H 20 138/90 96 11/17/19 23:18 36.7 C 100 H 20 118/84 92 PG Care Time/CCT Total # of Minutes Spent Total Time Spent with Patient: Total time spent is greater than 50% in coordination of care (as documented) at patient's floor/unit and/or counseling patient: Coding Level of Care Code 85169 Subseq Hosp Care Lvl 1
--- NOTE | 2019-11-18 14:22 | Hospitalist Progress Note ---
Date of Service November 18, 2019 Assessment & Plan (1) Pyelonephritis of right kidney: Bilateral hydroureteronephrosis secondary to fecal impaction. - Underwent cystoscopy and bilateral ureteral stent placement with Dr. Sim on 11/15. - Continue Zosyn - Follow cultures -> Blood culture from 11/15 growing coag(-) Staph in 1/4 bottles. Repeat cultures drawn on 11/16 and no growth so far. Urine culture from 11/15 growing "Streptococcus spc" which could possibly be a Enterococcus. Given his frequent hospitalizations, will treat with daptomycin empirically until sensitivities back. (2) Dysphagia: Patient reported a choking incident to myself on 11/17. - BOX REPAIRER consult (3) Acute renal failure (ARF): Likely combination of pre-renal from sepsis and ATN as well as obstructive. - Cr was 2.0 on admission; down to 1.0 today. - Lower IV fluids today. - Repeat BMP with AM labs (4) Fecal impaction: Will start good bowel regimen. - Gave Mg Citrate and enema on 11/16. Now having 2-3 soft BMs/day which is exactly what we want. (5) Septic shock: Due to kidney infection. Norepinephrine weaned off around midnight of 11/16. - Resolving (6) GERD (gastroesophageal reflux disease): Hx of Beck's esophagus. Burning sensation in esophagus for last 2 days prior to admission. CT chest on 11/15 at [facility] showed distal fluid filled esophagus. - PPI PO BID (7) Paraplegia following spinal cord injury: Paraplegia since 1979. - PT/OT (8) DVT prophylaxis: Heparin 5,000 units SQ Q12h Admission and Anticipated Discharge Date Admission Date: November 16, 2019 Subjective Feeling well today. No abdominal pain. Feels well overall. Reports no fevers/chills, chest pain, shortness of breath, abdominal pain, nausea, or vomiting. Physical Exam Constitutional: WD/WN, vitals as above Eyes: EOM intact bilaterally; no conjunctival abnormality ENMT: external ear and nose normal, oropharynx normal Neck: trachea midline, no thyromegaly normal visual inspection Respiratory: normal respiratory effort, lungs clear to auscultation no respiratory distress Cardiovascular: Rate/Rhythm: regular rate and + tachycardic Heart Sounds: normal S1 and normal S2 Extremities: no edema Gastrointestinal (Abdomen): Inspection/Auscultation: abdomen normal to inspection; abdomen not distended Skin: no rashes, warm and dry Neurologic: awake; + does not move all extremities Psychiatric: Orientation: alert, oriented to person and cooperative Results & Data Results & Data ([facility]) Vital Signs (Past 12 Hours) Vital Signs Temp Pulse Pulse Resp BP Pulse Ox 11/18/19 11:45 36.9 C 103 H 20 131/90 98 11/18/19 08:56 102 H 106/72 11/18/19 06:51 36.9 C 100 H 18 153/101 H 97 11/18/19 04:32 36.7 C 100 H 20 138/90 96 PG Care Time/CCT Total # of Minutes Spent Total Time Spent with Patient: Total time spent is greater than 50% in coordination of care (as documented) at patient's floor/unit and/or counseling patient: Coding Level of Care Code 18972 Subseq Hosp Care Lvl 3 Diagnoses Pyelonephritis of right kidney N12 Dysphagia R13.10 Acute renal failure (ARF) N17.9 Acute renal failure type: unspecified Fecal impaction K56.41 Septic shock A41.9; R65.21 GERD (gastroesophageal reflux disease) K21.9 Esophagitis presence: without esophagitis Paraplegia following spinal cord injury G82.20 DVT prophylaxis Z29.9 (1) Acute renal failure (ARF) Acute renal failure type: unspecified Qualified Code(s): N17.9 - Acute kidney failure, unspecified (2) GERD (gastroesophageal reflux disease) Esophagitis presence: without esophagitis Qualified Code(s): K21.9 - Gastro- esophageal reflux disease without esophagitis
[2019-11-18] MEDS ORDERED: DAPTOMYCIN CONSULT ACTIVE PRN (14:37)
[2019-11-18] MEDS: DAPTOmycin 300 MG in SYRINGE 0 ML IV SCH (16:04)
[2019-11-18] MEDS: AMITRIPTYLINE HCL 50 MG TAB PO SCH (19:54)
[2019-11-18] MEDS: ZOLPIDEM TARTRATE 10 MG TAB PO PRN (23:24)
[2019-11-19] MEDS: PIPERACILLIN/TAZOBACTAM 4.5 GM in DEXTROSE 5% 100 ML IV SCH ×3 (04:09→19:38)
[2019-11-19 06:32] LABS: Hematocrit (blood only) 28.5 % (42-52); Hemoglobin 9.3 g/dL (14.0-18.0); Mean Corpuscular Hemoglobin 28.4 pg (25-34); Mean Corpuscular Hgb Conc 32.6 g/dL (32-36); Mean Corpuscular Volume 86.9 fL (80-100); Nucleated RBC # (auto) 0.17 K/uL (0-0); Nucleated RBC % (auto) 0.6 %; Platelet Count 188 K/uL (130-400); RDW Coefficient of Variation 17.6 % (11.5-14.5); RDW Standard Deviation 55.7 fL (36.4-46.3); Red Blood Count 3.28 M/uL (4.7-6.1)
[2019-11-19 06:54] LABS: Basophils # (auto) 0.09 K/uL (0-0.2); Basophils % (auto) 0.3 %; Dohle Bodies 1+; Eosinophils # (auto) 0.54 K/uL (0-0.5); Eosinophils % (auto) 1.9 %; Immature Granulocytes # (auto) 0.16 K/uL (0.00-0.02); Immature Granulocytes % (auto) 0.6 %; Lymphocytes % (auto) 5.7 %; Monocytes # (auto) 1.16 K/uL (0.11-0.59); Monocytes % (auto) 4.1 %; Neutrophils # (auto) 24.65 K/uL (1.4-6.5); Neutrophils % (auto) 87.4 %; Stomatocytes 1+
[2019-11-19 07:07] LABS: Albumin Level 1.8 gm/dl (3.4-5.0); BUN Creatinine Ratio 21.4 (10-20); Bilirubin Direct 0.3 mg/dl (0-0.2); Calcium 7.7 mg/dl (8.5-10.1); Creatinine Clr Calc Pharmacy 122.7 ml/min; Est GFR (African American) 119.2; Est GFR (Non-African American) 102.8; Magnesium 2.2 mg/dl (1.8-2.4); Potassium 4.3 mmol/L (3.5-5.1)
[2019-11-19 07:26] LABS: Bilirubin,Total 0.8 mg/dl (0.2-1); Phosphorus 1.1 mg/dl (2.5-4.9); Total Protein 5.6 gm/dl (6.4-8.2)
[2019-11-19] MEDS: ACETAMINOPHEN 325 MG TAB PO PRN ×2 (09:19→23:10)
[2019-11-19] MEDS: FERROUS SULFATE 325 MG TAB PO SCH (09:20)
[2019-11-19] MEDS: ASPIRIN 81 MG ECTAB PO SCH (09:20)
[2019-11-19] MEDS: FLUOXETINE HCL 20 MG CAP PO SCH (09:20)
[2019-11-19] MEDS: SENNA 8.6 MG TAB PO SCH (09:20)
[2019-11-19] MEDS: AZITHROMYCIN 250 MG TAB PO SCH (09:20)
[2019-11-19] MEDS: PANTOprazole 40 MG TAB PO SCH ×2 (09:20→20:54)
[2019-11-19] MEDS: TRIAMCINOLONE ACET 0.1% CR 15 GM TUBE TOP SCH ×2 (09:24→20:53)
[2019-11-19] MEDS: DOCUSATE SODIUM 100 MG CAP PO SCH ×2 (09:24→20:54)
[2019-11-19] MEDS: OXYCODONE/ACETAMINOPHEN 10-325 TAB PO PRN ×3 (10:51→22:06)
[2019-11-19] MEDS ORDERED: SODIUM PHOSPHATE 3 MMOL/1 ML INFUSION IV STA (14:19)
[2019-11-19] MEDS ORDERED: MAGNESIUM CITRATE 296 ML/BTL PO STA (14:19)
[2019-11-19] MEDS ORDERED: SOD PHOSPHATE/SOD BIPHOSPHATE ENEMA 132 ML BTL PR STA (14:19)
[2019-11-19] MEDS ORDERED: SODIUM PHOSPHATE 30 MMOL in SODIUM CHLORIDE 0.9% 500 ML IV ONE (14:30)
[2019-11-19] MEDS: DAPTOmycin 300 MG in SYRINGE 0 ML IV SCH (14:39)
--- NOTE | 2019-11-19 14:47 | Hospitalist Progress Note ---
Date of Service November 19, 2019 Assessment & Plan (1) Pyelonephritis of right kidney: Bilateral hydroureteronephrosis secondary to fecal impaction. - Underwent cystoscopy and bilateral ureteral stent placement with Dr. Sim on 11/15. - Continue Zosyn - Follow cultures -> Blood culture from 11/15 growing coag(-) Staph in 1/4 bottles. Repeat cultures drawn on 11/16 and no growth so far. Urine culture from 11/15 growing Enterococcus faecalis. Started daptomycin on 11/17. Fever on 11/18. Repeat blood cultures drawn. Will give them 24 hours to grow before dialing back present abx. (2) Dysphagia: Patient reported a choking incident to myself on 11/17. - F[employer] MIG WELDER consulted and seen - Recommend slippery diet - Consult GI for burning sensation with swallowing; consider esophageal pathology. Has history of Beck's. (3) Acute renal failure (ARF): Likely combination of pre-renal from sepsis and ATN as well as obstructive. - Cr was 2.0 on admission; down to 0.7 today. - Stop IV fluids today. - Repeat BMP with AM labs (4) Fecal impaction: Will start good bowel regimen. - Gave Mg Citrate and enema on 11/16 & 11/18. Aiming for 2-3 soft BMs/day which is exactly what we want. (5) Septic shock: Due to kidney infection. Norepinephrine weaned off around midnight of 11/16. - Resolving (6) GERD (gastroesophageal reflux disease): Hx of Beck's esophagus. Burning sensation in esophagus for last 2 days prior to admission. CT chest on 11/15 at [facility] showed distal fluid filled esophagus. - PPI PO BID - GI as above (7) Paraplegia following spinal cord injury: Paraplegia since 1979. - PT/OT (8) DVT prophylaxis: Heparin 5,000 units SQ Q12h Admission and Anticipated Discharge Date Admission Date: November 16, 2019 Subjective Had a fever this morning, but did not notice it. Winn normal. Getting bored. Reports no fevers/chills, chest pain, shortness of breath, abdominal pain, nausea, or vomiting. Physical Exam Constitutional: WD/WN, vitals as above Eyes: EOM intact bilaterally; no conjunctival abnormality ENMT: external ear and nose normal, oropharynx normal Neck: trachea midline, no thyromegaly normal visual inspection Respiratory: normal respiratory effort, lungs clear to auscultation no respiratory distress Cardiovascular: Rate/Rhythm: regular rate and regular rhythm Heart Sounds: normal S1 and normal S2 Extremities: no edema Gastrointestinal (Abdomen): Inspection/Auscultation: abdomen normal to inspection; abdomen not distended Musculoskeletal: no cyanosis or clubbing, extremities motor strength 5/5 Skin: no rashes, warm and dry Neurologic: awake; + does not move all extremities Psychiatric: Orientation: alert, oriented to person and cooperative Results & Data Results & Data ([facility]) Vital Signs (Past 12 Hours) Vital Signs Temp Pulse Resp BP Pulse Ox 11/19/19 11:17 37.1 C 89 18 128/97 96 11/19/19 08:06 38.6 C H 93 H 18 145/98 H 94 11/19/19 03:40 36.5 C 96 H 22 128/90 97 PG Care Time/CCT Total # of Minutes Spent Total Time Spent with Patient: Total time spent is greater than 50% in coordination of care (as documented) at patient's floor/unit and/or counseling patient: Coding Level of Care Code 43937 Subseq Hosp Care Lvl 3 Diagnoses Pyelonephritis of right kidney N12 Dysphagia R13.10 Acute renal failure (ARF) N17.9 Acute renal failure type: unspecified Fecal impaction K56.41 Septic shock A41.9; R65.21 GERD (gastroesophageal reflux disease) K21.9 Esophagitis presence: without esophagitis Paraplegia following spinal cord injury G82.20 DVT prophylaxis Z29.9 (1) Acute renal failure (ARF) Acute renal failure type: unspecified Qualified Code(s): N17.9 - Acute kidney failure, unspecified (2) GERD (gastroesophageal reflux disease) Esophagitis presence: without esophagitis Qualified Code(s): K21.9 - Gastro- esophageal reflux disease without esophagitis
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
[2019-11-19] MEDS: HEPARIN SOD 5,000 UNIT/0.5 ML VIAL SQ SCH (20:53)
[2019-11-19] MEDS: AMITRIPTYLINE HCL 50 MG TAB PO SCH (20:55)
[2019-11-19] MEDS: ZOLPIDEM TARTRATE 10 MG TAB PO PRN (22:06)
[2019-11-20] MEDS: PIPERACILLIN/TAZOBACTAM 4.5 GM in DEXTROSE 5% 100 ML IV SCH ×2 (03:58→11:43)
[2019-11-20 06:38] LABS: Hematocrit (blood only) 29.9 % (42-52); Hemoglobin 9.8 g/dL (14.0-18.0); Mean Corpuscular Hgb Conc 32.8 g/dL (32-36); Mean Corpuscular Volume 88.5 fL (80-100); Mean Platelet Volume 10.4 fL (7.4-10.4); Nucleated RBC # (auto) 0.11 K/uL (0-0); Nucleated RBC % (auto) 0.6 %; Platelet Count 204 K/uL (130-400); RDW Coefficient of Variation 17.8 % (11.5-14.5); RDW Standard Deviation 57.5 fL (36.4-46.3); Red Blood Count 3.38 M/uL (4.7-6.1); White Blood Count 18.71 K/uL (4.8-10.8)
[2019-11-20 07:08] LABS: BUN Creatinine Ratio 17.8 (10-20); Calcium 7.9 mg/dl (8.5-10.1); Creatinine Clr Calc Pharmacy 126.3 ml/min; Est GFR (African American) 120.6; Magnesium 2.3 mg/dl (1.8-2.4); Potassium 3.8 mmol/L (3.5-5.1)
[2019-11-20 07:12] LABS: Phosphorus 2.4 mg/dl (2.5-4.9)
[2019-11-20] MEDS ORDERED: SODIUM PHOSPHATE 3 MMOL/1 ML INFUSION IV STA (08:33)
[2019-11-20] MEDS ORDERED: SODIUM PHOSPHATE 21 MMOL in SODIUM CHLORIDE 0.9% 500 ML IV ONE (08:45)
[2019-11-20] MEDS: SENNA 8.6 MG TAB PO SCH (08:49)
[2019-11-20] MEDS: PANTOprazole 40 MG TAB PO SCH ×2 (08:49→20:19)
[2019-11-20] MEDS: FLUOXETINE HCL 20 MG CAP PO SCH (08:49)
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
[2019-11-20] MEDS: FERROUS SULFATE 325 MG TAB PO SCH (08:50)
[2019-11-20] MEDS: ASPIRIN 81 MG ECTAB PO SCH (08:50)
[2019-11-20] MEDS: TRIAMCINOLONE ACET 0.1% CR 15 GM TUBE TOP SCH ×2 (08:51→20:20)
[2019-11-20] MEDS: HEPARIN SOD 5,000 UNIT/0.5 ML VIAL SQ SCH ×2 (08:51→20:19)
[2019-11-20] MEDS: DOCUSATE SODIUM 100 MG CAP PO SCH ×2 (09:08→20:19)
[2019-11-20] MEDS: OXYCODONE/ACETAMINOPHEN 10-325 TAB PO PRN ×2 (11:44→20:19)
[2019-11-20] MEDS: DAPTOmycin 300 MG in SYRINGE 0 ML IV SCH (14:06)
--- NOTE | 2019-11-20 14:36 | Hospitalist Progress Note ---
Date of Service November 20, 2019 Assessment & Plan (1) Pyelonephritis of right kidney: Bilateral hydroureteronephrosis secondary to fecal impaction. - Underwent cystoscopy and bilateral ureteral stent placement with Dr. Sim on 11/15. - Continue Zosyn - Follow cultures -> Blood culture from 11/15 growing coag(-) Staph in 1/4 bottles. Repeat cultures drawn on 11/16 and no growth so far. Urine culture from 11/15 growing Enterococcus faecalis. Started daptomycin on 11/17. Fever on 11/18. Repeat blood cultures drawn. Will give them 24 hours to grow before dialing back present abx. - Switched to amoxicillin 875 mg PO BID following his urine culture from 11/15. End date: 12/01/2019. (2) Dysphagia: Patient reported a choking incident to myself on 11/17. - BELL PERSON consulted and seen - Recommend slippery diet - Consulted GI for burning sensation with swallowing; consider esophageal pathology. Has history of Beck's. - EGD today. (3) Acute renal failure (ARF): Likely combination of pre-renal from sepsis and ATN as well as obstructive. - Cr was 2.0 on admission; down to 0.7 today. - Stopped IV fluids on 11/18. (4) Fecal impaction: Will start good bowel regimen. - Gave Mg Citrate and enema on 11/16 & 11/18. Aiming for 2-3 soft BMs/day which we're generally getting. (5) Septic shock: Due to kidney infection. Norepinephrine weaned off around midnight of 11/16. - Resolving (6) GERD (gastroesophageal reflux disease): Hx of Beck's esophagus. Burning sensation in esophagus for last 2 days prior to admission. CT chest on 11/15 at [facility] showed distal fluid filled esophagus. - PPI PO BID - GI as above (7) Paraplegia following spinal cord injury: Paraplegia since 1979. - PT/OT (8) DVT prophylaxis: Heparin 5,000 units SQ Q12h Admission and Anticipated Discharge Date Admission Date: November 16, 2019 Subjective Doing well today. No further fevers since last night. Overall in no pain. Reports no fevers/chills, chest pain, shortness of breath, abdominal pain, nausea, or vomiting. Physical Exam Constitutional: WD/WN, vitals as above Eyes: EOM intact bilaterally; no conjunctival abnormality ENMT: external ear and nose normal, oropharynx normal Neck: trachea midline, no thyromegaly normal visual inspection Respiratory: normal respiratory effort, lungs clear to auscultation no respiratory distress Cardiovascular: Rate/Rhythm: regular rate and regular rhythm Heart Sounds: normal S1 and normal S2 Extremities: no edema Gastrointestinal (Abdomen): Inspection/Auscultation: abdomen normal to inspection; abdomen not distended Musculoskeletal: no cyanosis or clubbing, extremities motor strength 5/5 Skin: no rashes, warm and dry Neurologic: awake; + does not move all extremities Psychiatric: Orientation: alert, oriented to person and cooperative Results & Data Results & Data ([facility]) Vital Signs (Past 12 Hours) Vital Signs Temp Pulse Resp BP Pulse Ox 11/20/19 10:50 36.7 C 79 19 132/97 94 11/20/19 07:15 37.6 C H 76 19 131/89 97 11/20/19 04:00 36.9 C 76 20 129/88 96 PG Care Time/CCT Total # of Minutes Spent Total Time Spent with Patient: Total time spent is greater than 50% in coordination of care (as documented) at patient's floor/unit and/or counseling patient: Coding Level of Care Code 62692 Subseq Hosp Care Lvl 2 Diagnoses Pyelonephritis of right kidney N12 Dysphagia R13.10 Acute renal failure (ARF) N17.9 Acute renal failure type: unspecified Fecal impaction K56.41 Septic shock A41.9; R65.21 GERD (gastroesophageal reflux disease) K21.9 Esophagitis presence: without esophagitis Paraplegia following spinal cord injury G82.20 DVT prophylaxis Z29.9 (1) Acute renal failure (ARF) Acute renal failure type: unspecified Qualified Code(s): N17.9 - Acute kidney failure, unspecified (2) GERD (gastroesophageal reflux disease) Esophagitis presence: without esophagitis Qualified Code(s): K21.9 - Gastro- esophageal reflux disease without esophagitis
[2019-11-20] MEDS ORDERED: POTASSIUM PHOS 3 MMOL/1 ML INFUSION IV STA (15:13)
[2019-11-20] MEDS ORDERED: POTASSIUM PHOSPHATE 21 MMOL in SODIUM CHLORIDE 0.9% 500 ML IV ONE (16:00)
[2019-11-20] MEDS ORDERED: GLUCOSE 40% GEL 15 GM TUBE PO ONE (17:03)
[2019-11-20] MEDS: AMOXICILLIN SUSP 250 MG/5 ML 100 ML BTL PO SCH (17:18)
[2019-11-20] MEDS ORDERED: AMOXICILLIN SUSP 250 MG/5 ML 100 ML BTL PO SCH (18:00)
[2019-11-20] MEDS: AMITRIPTYLINE HCL 50 MG TAB PO SCH (20:19)
[2019-11-20] MEDS: ZOLPIDEM TARTRATE 10 MG TAB PO PRN (22:16)
[2019-11-21 06:02] LABS: Hematocrit (blood only) 30.2 % (42-52); Hemoglobin 10.2 g/dL (14.0-18.0); Mean Corpuscular Hemoglobin 29.7 pg (25-34); Mean Corpuscular Hgb Conc 33.8 g/dL (32-36); Mean Corpuscular Volume 87.8 fL (80-100); Mean Platelet Volume 10.4 fL (7.4-10.4); Nucleated RBC # (auto) 0.22 K/uL (0-0); Nucleated RBC % (auto) 1.3 %; Platelet Count 244 K/uL (130-400); RDW Coefficient of Variation 17.3 % (11.5-14.5); RDW Standard Deviation 55.3 fL (36.4-46.3); Red Blood Count 3.44 M/uL (4.7-6.1); White Blood Count 16.77 K/uL (4.8-10.8)
[2019-11-21 07:05] LABS: BUN Creatinine Ratio 15.2 (10-20); Calcium 8.1 mg/dl (8.5-10.1); Creatinine Clr Calc Pharmacy 157.8 ml/min; Est GFR (African American) 132.1; Phosphorus 2.4 mg/dl (2.5-4.9); Potassium 4.5 mmol/L (3.5-5.1)
[2019-11-21] MEDS: OXYCODONE/ACETAMINOPHEN 10-325 TAB PO PRN ×3 (07:43→20:06)
[2019-11-21] MEDS: AMOXICILLIN SUSP 250 MG/5 ML 100 ML BTL PO SCH ×2 (09:18→20:33)
[2019-11-21] MEDS: ASPIRIN 81 MG ECTAB PO SCH (09:19)
[2019-11-21] MEDS: FERROUS SULFATE 325 MG TAB PO SCH (09:20)
[2019-11-21] MEDS: TRIAMCINOLONE ACET 0.1% CR 15 GM TUBE TOP SCH ×2 (09:20→20:06)
[2019-11-21] MEDS: PANTOprazole 40 MG TAB PO SCH ×2 (09:20→20:06)
[2019-11-21] MEDS: SENNA 8.6 MG TAB PO SCH (09:21)
[2019-11-21] MEDS: FLUOXETINE HCL 20 MG CAP PO SCH (09:21)
[2019-11-21] MEDS: HEPARIN SOD 5,000 UNIT/0.5 ML VIAL SQ SCH ×2 (09:22→20:07)
[2019-11-21] MEDS: DOCUSATE SODIUM 100 MG CAP PO SCH ×2 (12:05→20:06)
[2019-11-21] MEDS: ACETAMINOPHEN 325 MG TAB PO PRN (16:38)
[2019-11-21] MEDS: AMITRIPTYLINE HCL 50 MG TAB PO SCH (20:06)
[2019-11-21] MEDS ORDERED: ONDANSETRON INJ 2 MG/ML 2 ML VIAL ONE (22:26)
--- NOTE | 2019-11-21 22:31 | Hospitalist Progress Note ---
Date of Service November 21, 2019 Assessment & Plan (1) Pyelonephritis of right kidney: Bilateral hydroureteronephrosis secondary to fecal impaction. - Underwent cystoscopy and bilateral ureteral stent placement with Dr. Sim on 11/15. - Continue Zosyn - Follow cultures -> Blood culture from 11/15 growing coag(-) Staph in 1/4 bottles. Repeat cultures drawn on 11/16 and no growth so far. Urine culture from 11/15 growing Enterococcus faecalis. Started daptomycin on 11/17. Fever on 11/18. Repeat blood cultures drawn. Will give them 24 hours to grow before dialing back present abx. - Switched to amoxicillin 875 mg PO BID following his urine culture from 11/15. End date: 12/01/2019. Will continue to monitor his symptoms. If he continues to improve, will likely discharge in the AM on Saturday. (2) Dysphagia: Patient reported a choking incident to myself on 11/17. - PROCESS [employer]ER consulted and seen - Recommend slippery diet - Consulted GI for burning sensation with swallowing; consider esophageal pathology. Has history of Beck's. - EGD appears to have been cancelled (3) Acute renal failure (ARF): Likely combination of pre-renal from sepsis and ATN as well as obstructive. - Cr was 2.0 on admission; down to 0.7 today. - Stopped IV fluids on 11/18. (4) Fecal impaction: Will start good bowel regimen. - Gave Mg Citrate and enema on 11/16 & 11/18. Aiming for 2-3 soft BMs/day which we're generally getting. (5) Septic shock: Due to kidney infection. Norepinephrine weaned off around midnight of 11/16. - Resolving (6) GERD (gastroesophageal reflux disease): Hx of Beck's esophagus. Burning sensation in esophagus for last 2 days prior to admission. CT chest on 11/15 at [facility] showed distal fluid filled esophagus. - PPI PO BID - GI as above (7) Paraplegia following spinal cord injury: Paraplegia since 1979. - PT/OT (8) DVT prophylaxis: Heparin 5,000 units SQ Q12h Admission and Anticipated Discharge Date Admission Date: November 16, 2019 Subjective 59 yo male reports no new symptoms today. Review of Systems Review of Systems: All systems reviewed & are unremarkable except as noted in HPI & below Physical Exam Physical Exam: Constitutional: WD/WN, vitals as above Eyes: EOM intact bilaterally; no conjunctival abnormality ENMT: external ear and nose normal, oropharynx normal Neck: trachea midline, no thyromegaly normal visual inspection Respiratory: normal respiratory effort, lungs clear to auscultation no respiratory distress Cardiovascular: Rate/Rhythm: regular rate and regular rhythm Heart Sounds: normal S1 and normal S2 Extremities: no edema Gastrointestinal (Abdomen): Inspection/Auscultation: abdomen normal to inspect ion; abdomen not distended Musculoskeletal: no cyanosis or clubbing, extremities motor strength 5/5 Skin: no rashes, warm and dry Neurologic: awake; + does not move all extremities Psychiatric: Orientation: alert, oriented to person and cooperative Results & Data Results & Data ([facility]) Vital Signs (Past 12 Hours) Vital Signs Temp Pulse Pulse Resp BP Pulse Ox 11/21/19 19:19 37.2 C 88 18 168/96 H 92 11/21/19 15:58 84 11/21/19 15:37 37.2 C 82 18 130/88 97 11/21/19 11:03 36.6 C 80 19 128/84 95 PG Care Time/CCT Total # of Minutes Spent Total Time Spent with Patient: Total time spent is greater than 50% in coordination of care (as documented) at patient's floor/unit and/or counseling patient: Coding Level of Care Code 84107 Subseq Hosp Care Lvl 2 Diagnoses Pyelonephritis of right kidney N12 Dysphagia R13.10 Acute renal failure (ARF) N17.9 Acute renal failure type: unspecified Fecal impaction K56.41 Septic shock A41.9; R65.21 GERD (gastroesophageal reflux disease) K21.9 Esophagitis presence: without esophagitis Paraplegia following spinal cord injury G82.20 DVT prophylaxis Z29.9 (1) Acute renal failure (ARF) Acute renal failure type: unspecified Qualified Code(s): N17.9 - Acute kidney failure, unspecified (2) GERD (gastroesophageal reflux disease) Esophagitis presence: without esophagitis Qualified Code(s): K21.9 - Gastro- esophageal reflux disease without esophagitis
[2019-11-22] MEDS: OXYCODONE/ACETAMINOPHEN 10-325 TAB PO PRN ×4 (05:08→22:53)
[2019-11-22 05:51] LABS: BUN Creatinine Ratio 20.1 (10-20); Calcium 8.2 mg/dl (8.5-10.1); Creatinine Clr Calc Pharmacy 166.8 ml/min; Est GFR (African American) 135.2; Est GFR (Non-African American) 116.6; Potassium 4.1 mmol/L (3.5-5.1)
[2019-11-22] MEDS: AMOXICILLIN SUSP 250 MG/5 ML 100 ML BTL PO SCH ×2 (08:11→21:37)
[2019-11-22] MEDS: FLUOXETINE HCL 20 MG CAP PO SCH (08:12)
[2019-11-22] MEDS: PANTOprazole 40 MG TAB PO SCH ×2 (08:12→21:36)
[2019-11-22] MEDS: HEPARIN SOD 5,000 UNIT/0.5 ML VIAL SQ SCH ×2 (08:12→21:37)
[2019-11-22] MEDS: ASPIRIN 81 MG ECTAB PO SCH (08:12)
[2019-11-22] MEDS: FERROUS SULFATE 325 MG TAB PO SCH (08:13)
[2019-11-22] MEDS: SENNA 8.6 MG TAB PO SCH (08:13)
[2019-11-22] MEDS: DOCUSATE SODIUM 100 MG CAP PO SCH ×2 (08:20→21:36)
[2019-11-22] MEDS: TRIAMCINOLONE ACET 0.1% CR 15 GM TUBE TOP SCH ×2 (09:52→21:36)
[2019-11-22] MEDS: ACETAMINOPHEN 325 MG TAB PO PRN ×2 (13:09→20:20)
[2019-11-22] MEDS ORDERED: ONDANSETRON INJ 2 MG/ML 2 ML VIAL IV PRN (19:00)
[2019-11-22] MEDS ORDERED: ONDANSETRON INJ 2 MG/ML 2 ML VIAL IV ONE (19:15)
[2019-11-22] MEDS ORDERED: POLYETHYLENE (MIRALAX) 17 GM PACK PO ONE (19:15)
[2019-11-22] MEDS: AMITRIPTYLINE HCL 50 MG TAB PO SCH (21:35)
--- NOTE | 2019-11-22 22:32 | Hospitalist Progress Note ---
Date of Service November 22, 2019 Assessment & Plan (1) Pyelonephritis of right kidney: Bilateral hydroureteronephrosis secondary to fecal impaction. - Underwent cystoscopy and bilateral ureteral stent placement with Dr. Sim on 11/15. - Continue Zosyn - Follow cultures -> Blood culture from 11/15 growing coag(-) Staph in 1/4 bottles. Repeat cultures drawn on 11/16 and no growth so far. Urine culture from 11/15 growing Enterococcus faecalis. Started daptomycin on 11/17. Fever on 11/18. Repeat blood cultures drawn. Will give them 24 hours to grow before dialing back present abx. - Switched to amoxicillin 875 mg PO BID following his urine culture from 11/15. End date: 12/01/2019. Patient appears to be tolerating the antibiotic, plan for discharge tomorrow. will transfer patient out of tele. (2) Dysphagia: Patient reported a choking incident to myself on 11/17. - MORTGAGE CONSULTANT consulted and seen - Recommend slippery diet - Consulted GI for burning sensation with swallowing; consider esophageal pathology. Has history of Beck's. - EGD appears to have been cancelled (3) Acute renal failure (ARF): Likely combination of pre-renal from sepsis and ATN as well as obstructive. - Cr was 2.0 on admission; down to 0.7 today. - Stopped IV fluids on 11/18. (4) Fecal impaction: Will start good bowel regimen. - Gave Mg Citrate and enema on 11/16 & 11/18. Aiming for 2-3 soft BMs/day which we're generally getting. Will continue with miralax. (5) Septic shock: Due to kidney infection. Norepinephrine weaned off around midnight of 11/16. - Resolving (6) GERD (gastroesophageal reflux disease): Hx of Beck's esophagus. Burning sensation in esophagus for last 2 days prior to admission. CT chest on 11/15 at [facility] showed distal fluid filled esophagus. - PPI PO BID - GI as above (7) Paraplegia following spinal cord injury: Paraplegia since 1979. - PT/OT (8) DVT prophylaxis: Heparin 5,000 units SQ Q12h Admission and Anticipated Discharge Date Admission Date: November 16, 2019 Subjective Patient reports feeling welll except for being constipated and having a headache. He rpeorts the headache as being a frontal headache and sharp. He feels the headache is related to his constipation. He is asking for something for his constipation. Review of Systems Review of Systems: All systems reviewed & are unremarkable except as noted in HPI & below Physical Exam Physical Exam: Constitutional: WD/WN, vitals as above Eyes: EOM intact bilaterally; no conjunctival abnormality ENMT: external ear and nose normal, oropharynx normal Neck: trachea midline, no thyromegaly normal visual inspection Respiratory: normal respiratory effort, lungs clear to auscultation no respiratory distress Cardiovascular: Rate/Rhythm: regular rate and regular rhythm Heart Sounds: normal S1 and normal S2 Extremities: no edema Gastrointestinal (Abdomen): Inspection/Auscultation: abdomen normal to inspection; abdomen not distended Musculoskeletal: no cyanosis or clubbing, extremities motor strength 5/5 Skin: no rashes, warm and dry Neurologic: awake; + does not move all extremities Psychiatric: Orientation: alert, oriented to person and cooperative Results & Data Results & Data ([facility]) Vital Signs (Past 12 Hours) Vital Signs Temp Pulse Pulse Resp BP BP Pulse Ox 11/22/19 21:33 36.7 C 77 16 149/88 H 96 11/22/19 20:26 37.0 C 79 18 149/93 H 97 11/22/19 16:00 80 11/22/19 15:16 37.4 C 87 18 148/84 H 98 11/22/19 11:34 36.8 C 85 19 116/69 95 PG Care Time/CCT Total # of Minutes Spent Total Time Spent with Patient: Total time spent is greater than 50% in coordination of care (as documented) at patient's floor/unit and/or counseling patient: Coding Level of Care Code 62490 Subseq Hosp Care Lvl 2 Diagnoses Pyelonephritis of right kidney N12 Dysphagia R13.10 Acute renal failure (ARF) N17.9 Acute renal failure type: unspecified Fecal impaction K56.41 Septic shock A41.9; R65.21 GERD (gastroesophageal reflux disease) K21.9 Esophagitis presence: without esophagitis Paraplegia following spinal cord injury G82.20 DVT prophylaxis Z29.9 Time Spent (min) 25 (1) Acute renal failure (ARF) Acute renal failure type: unspecified Qualified Code(s): N17.9 - Acute kidney failure, unspecified (2) GERD (gastroesophageal reflux disease) Esophagitis presence: without esophagitis Qualified Code(s): K21.9 - Gastro- esophageal reflux disease without esophagitis
[2019-11-23] MEDS: ZOLPIDEM TARTRATE 10 MG TAB PO PRN (01:11)
[2019-11-23 06:10] LABS: Nucleated RBC # (auto) 0.08 K/uL (0-0); Nucleated RBC % (auto) 0.5 %
[2019-11-23 06:13] LABS: Hematocrit (blood only) 32.4 % (42-52); Hemoglobin 10.4 g/dL (14.0-18.0); Mean Corpuscular Hemoglobin 28.4 pg (25-34); Mean Corpuscular Hgb Conc 32.1 g/dL (32-36); Mean Corpuscular Volume 88.5 fL (80-100); Mean Platelet Volume 9.6 fL (7.4-10.4); Platelet Count 471 K/uL (130-400); RDW Coefficient of Variation 17.6 % (11.5-14.5); RDW Standard Deviation 56.6 fL (36.4-46.3); Red Blood Count 3.66 M/uL (4.7-6.1); White Blood Count 15.48 K/uL (4.8-10.8)
[2019-11-23 06:30] LABS: Basophils # (auto) 0.06 K/uL (0-0.2); Basophils % (auto) 0.4 %; Eosinophils # (auto) 0.67 K/uL (0-0.5); Eosinophils % (auto) 4.3 %; Immature Granulocytes # (auto) 0.44 K/uL (0.00-0.02); Immature Granulocytes % (auto) 2.8 %; Lymphocytes # (auto) 1.95 K/uL (1.2-3.4); Lymphocytes % (auto) 12.6 %; Monocytes # (auto) 1.35 K/uL (0.11-0.59); Monocytes % (auto) 8.7 %; Neutrophils # (auto) 11.01 K/uL (1.4-6.5); Neutrophils % (auto) 71.2 %; Polychromasia 1+; Target Cells 1+
[2019-11-23 06:43] LABS: Albumin Level 1.9 gm/dl (3.4-5.0); BUN Creatinine Ratio 15.5 (10-20); Bilirubin Direct 0.1 mg/dl (0-0.2); Calcium 8.4 mg/dl (8.5-10.1); Est GFR (Non-African American) 105.3; Potassium 4.3 mmol/L (3.5-5.1)
[2019-11-23 06:46] LABS: Bilirubin,Total 0.3 mg/dl (0.2-1); Total Protein 6.8 gm/dl (6.4-8.2)
[2019-11-23] MEDS: OXYCODONE/ACETAMINOPHEN 10-325 TAB PO PRN ×2 (07:32→13:12)
[2019-11-23] MEDS: AMOXICILLIN SUSP 250 MG/5 ML 100 ML BTL PO SCH (08:38)
[2019-11-23] MEDS: ASPIRIN 81 MG ECTAB PO SCH (08:39)
[2019-11-23] MEDS: FLUOXETINE HCL 20 MG CAP PO SCH (08:39)
[2019-11-23] MEDS: DOCUSATE SODIUM 100 MG CAP PO SCH (08:39)
[2019-11-23] MEDS: TRIAMCINOLONE ACET 0.1% CR 15 GM TUBE TOP SCH (08:40)
[2019-11-23] MEDS: FERROUS SULFATE 325 MG TAB PO SCH (08:40)
[2019-11-23] MEDS: SENNA 8.6 MG TAB PO SCH (08:40)
[2019-11-23] MEDS: PANTOprazole 40 MG TAB PO SCH (08:40)
[2019-11-23] MEDS: HEPARIN SOD 5,000 UNIT/0.5 ML VIAL SQ SCH (08:41)
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
[2019-11-23] MEDS: ACETAMINOPHEN 325 MG TAB PO PRN (11:31)
--- NOTE | 2019-11-29 23:18 | Discharge Summary ---
Date of Service November 23, 2019 Admission HPI Per Admitting Provider Ulysses Guardado is a 59-year-old male with T7 level paraplegia since 1979, bariatric surgery, and indwelling Camp catheter with frequent UTIs who is a direct admission from [facility] ER with septic shock with suspected urinary source. The patient reports a 2-day history of chills, generally feeling unwell and associated dysphagia and burning sensation in his chest. This morning he felt much worse with increased chills and back pain at around 4 AM. He initially called his who subsequently called EMS and was taken to [facility] emergency room. Due to his paraplegia he is unsure about how much he has been mo ving his bowels. He does not get abdominal pain due to his paraplegia. Denies any nausea or vomiting. Notable dysphagia for the last 2 days with associated burning heartburn sensation when eating or drinking anything except water. In the ER his white blood count was elevated and he was diagnosed with septic shock requiring 2 L NSS and 1 L LR bolus with subsequent blood pressure 80/40. Therefore started on Levophed and transferred to [facility] ICU. CT abdomen/pelvis showed fecal impaction as likely cause of bilateral obstructive uropathy with inflammatory changes around right kidney suggestive of pyelonephritis. Calculi noted in bladder however no calculi in the ureters to suggest ureteral stones as the underlying etiology of ureteral obstruction. Lactic acid 12.6 -> 6.1. He was initially treated with ceftriaxone 1 g IV; Zosyn was prescribed by the ER physician however no documentation that this was actually given as was prescribed at the same time as IV vancomycin which was documented as being given. Principal Diagnosis pyelonephritis of right kidney Discharge Exam Constitutional: WD/WN, vitals as above Eyes: EOM intact bilaterally; no conjunctival abnormality ENMT: external ear and nose normal, oropharynx normal Neck: trachea midline, no thyromegaly normal visual inspection Respiratory: normal respiratory effort, lungs clear to auscultation no respiratory distress Cardiovascular: Rate/Rhythm: regular rate and regular rhythm Heart Sounds: normal S1 and normal S2 Extremities: no edema Gastrointestinal (Abdomen): Inspection/Auscultation: abdomen normal to inspection; abdomen not distended Musculoskeletal: no cyanosis or clubbing, extremities motor strength 5/5 Skin: no rashes, warm and dry Neurologic: awake; + does not move all extremities Psychiatric: Orientation: alert, oriented to person and cooperative Discharge Data Allergies Allergy/AdvReac Type Severity Reaction Status Date / Time ibuprofen AdvReac Intermediate GI Bleed Verified 10/14/19 09:27 caffeine AdvReac Unknown Gastrointestinal Verified 10/14/19 09:27 Upset Consultations 11/16/19 13:39 Consult Case Management - Discharge Planning Routine Consult Manager Etl Routine 11/16/19 14:20 Consult Urology Routine 11/19/19 14:47 Consult Gastroenterology Routine Procedures Performed Operation Date: 11/16/19 17:25 Actual Procedures p Bilateral Stent Insertion(Bilateral) - Leonid Sim MD s Cystoscopy, Bilateral Retrograde Pyelogram, (Bilateral) - Leonid Sim MD Operation Date: 11/20/19 16:00 <No data on this case meets the specified criteria> Ordered Studies 11/16/19 14:05 US point of care ultrasound Routine 11/16/19 17:30 FL retrograde includes kub Routine Hospital Course (1) Pyelonephritis of right kidney: Bilateral hydroureteronephrosis secondary to fecal impaction. - Underwent cystoscopy and bilateral ureteral stent placement with Dr. Sim on 11/15. - Continue Zosyn - Follow cultures -> Blood culture from 11/15 growing coag(-) Staph in 1/4 bottles. Repeat cultures drawn on 11/16 and no growth so far. Urine culture from 11/15 growing Enterococcus faecalis. Started daptomycin on 11/17. Fever on 11/18. Repeat blood cultures drawn. Will give them 24 hours to grow before dialing back present abx. - Switched to amoxicillin 875 mg PO BID following his urine culture from 11/15. End date: 12/01/2019. Patient appears to be tolerating the antibiotic (2) Dysphagia: Patient reported a choking incident to myself on 11/17. - [facility] consulted and seen - Recommend slippery diet - Consulted GI for burning sensation with swallowing; consider esophageal pathology. Has history of Beck's. - EGD appears to have been cancelled (3) Acute renal failure (ARF): Likely combination of pre-renal from sepsis and ATN as well as obstructive. - Cr was 2.0 on admission; down to 0.7 today. - Stopped IV fluids on 11/18. (4) Fecal impaction: Will start good bowel regimen. - Gave Mg Citrate and enema on 11/16 & 11/18. Aiming for 2-3 soft BMs/day which we're generally getting. Will continue with miralax. (5) Septic shock: Due to kidney infection. Norepinephrine weaned off around midnight of 11/16. - Resolving (6) GERD (gastroesophageal reflux disease): Hx of Beck's esophagus. Burning sensation in esophagus for last 2 days prior to admission. CT chest on 11/15 at [facility] showed distal fluid filled esophagus. - PPI PO BID - GI as above (7) Paraplegia following spinal cord injury: Paraplegia since 1979. - PT/OT (8) DVT prophylaxis: Heparin 5,000 units SQ Q12h Total Time Total Time Spent Total Time Spent (In Minutes): 32 Total Time Includes: Examination of the Patient, Discharge Planning and Medication Reconciliation Discharge Plan Discharge Items Patient Disposition: Home - Self-Care Reason For Visit: SEPTIC SHOCK Discharge Diagnosis: pyelonephritis Activity: Resume your previous activity Non-emergency contact: Primary Care Provider Call non-emergency contact if: you have any medication questions Follow-up/Referrals: Leonid Sim MD [Physician] - (Office will call patient with appointment date and time) Zenaida Flanagan PA-C [Primary Care Provider] - Diet: Heart Healthy Diet Texture: Easy to Chew Addtl Attending Provider Instructions: Will need GI office visit follow-up - will call patient with appointment. Will need followup with Urology. Continue antibiotics for 7 more days. Pending Studies at Discharge: No Stand-Alone Forms: [employer], Smoking Cessation Medications and DC Order Prescriptions: New amoxicillin-pot clavulanate 600-42.9 mg/5 mL suspension for reconstitution 7.3 ml PO BID 7 Days Qty: 102.2 RF: 0 Continued multivitamin Tablet 1 tab PO QAM RF: 0 atorvastatin 20 mg Tablet 20 mg PO HS RF: 0 omeprazole 40 mg Capsule,Delayed Release(Dr/Ec) 40 mg PO BID RF: 0 oxycodone-acetaminophen 10-325 mg Tablet 1 tab PO Q6H PRN (Reason: Pain) RF: 0 ferrous sulfate [iron] 325 mg (65 mg iron) Tablet 325 mg PO QAM RF: 0 zolpidem [Ambien] 10 mg Tablet 10 mg PO HS PRN (Reason: Sleep) RF: 0 Linzess 145 mcg Capsule 145 mcg PO QAM RF: 0 triamcinolone acetonide 0.1 % cream 1 applic TOPICAL BID RF: 0 fluoxetine 60 mg tablet 60 mg PO QAM RF: 0 sennosides [Senokot] 8.6 mg Tablet See Rx Instructions .ROUTE .COMPLEX RF: 0 aspirin 81 mg Tablet,Delayed Release (Dr/Ec) 81 mg PO DAILY RF: 0 amitriptyline 50 mg Tablet 50 mg PO HS RF: 0 Discharge Orders: Discharge Order (Routine); Ordered 11/23/19 Ordered By: Galindo Riley/Other Patient Handouts: Having a Ureteral Stent, Urinary Tract Infections in Men, Cystoscopy Admission Data Admit Date/Time: 11/16/19 13:25 Attending Provider: Galindo Echeverria Admit Provider: Randell Treivno Primary Care Provider: Zenaida Flanagan Other Providers: Ranjeet Marino ; Leonid Sim ; Judah Norris Other Interventions: Discharge Summary Assessment (RN) Last Done: 11/23/19 13:22 Coding Level of Care Code D/C Day Management >30 mins Diagnoses Pyelonephritis of right kidney N12 Dysphagia R13.10 Acute renal failure (ARF) N17.9 Acute renal failure type: unspecified Fecal impaction K56.41 Septic shock A41.9; R65.21 GERD (gastroesophageal reflux disease) K21.9 Esophagitis presence: without esophagitis Paraplegia following spinal cord injury G82.20 DVT prophylaxis Z29.9 Time Spent (min) 32
== END 2019-11-23 14:19 | disposition home or self-care (01) | DRG 853 ==
LOC: SUATTDRO 13:25 → 1E 13:25 → 2E 11-17 17:37 → 3E 11-22 21:10

== ENCOUNTER 2019-12-24 16:18 | Inpatient (IN) ==
[2019-12-24] MEDS ORDERED: SODIUM CHLORIDE 0.9% 1000ML 1,000 ML IV ONE ×2 (17:08→19:09)
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
[2019-12-24 17:35] LABS: Basophils # (auto) 0.06 K/uL (0-0.2); Basophils % (auto) 0.4 %; Eosinophils # (auto) 0.16 K/uL (0-0.5); Eosinophils % (auto) 1.1 %; Hematocrit (blood only) 32.9 % (42-52); Immature Granulocytes # (auto) 0.08 K/uL (0.00-0.02); Immature Granulocytes % (auto) 0.6 %; Lymphocytes # (auto) 0.95 K/uL (1.2-3.4); Lymphocytes % (auto) 6.5 %; Mean Corpuscular Hgb Conc 33.4 g/dL (32-36); Mean Corpuscular Volume 86.8 fL (80-100); Mean Platelet Volume 9.6 fL (7.4-10.4); Monocytes # (auto) 0.79 K/uL (0.11-0.59); Monocytes % (auto) 5.4 %; Nucleated RBC # (auto) 0.21 K/uL (0-0); Nucleated RBC % (auto) 1.5 %; Platelet Count 260 K/uL (130-400); RDW Coefficient of Variation 16.4 % (11.5-14.5); RDW Standard Deviation 52.2 fL (36.4-46.3); Red Blood Count 3.79 M/uL (4.7-6.1); White Blood Count 14.54 K/uL (4.8-10.8)
--- NOTE | 2019-12-24 17:40 | XRay Report ---
XR KUB/Abdomen 1 view CLINICAL HISTORY: Bilateral stents COMPARISON STUDY: 11/16/2019 FINDINGS: There are bilateral double pigtail nephroureteral stents. The proximal pigtail on the left is not fully formed. There is mild gaseous prominence of both large and small bowel loops likely seco ndary to an ileus. There are postsurgical changes with a right mid abdominal suture line. There are b ilateral renal calculi. No calculi are visualized along the course of either stent IMPRESSION: 1. Mild gaseous prominence of the bowel possibly secondary to an ileus 2. Bilateral nephrolithiasis 3. Bilateral nephroureteral stents ACT 112: Negative or not required by law. Electronically signed by: Maxime Soriano M.D. 12/24/2019 5:38 PM
[2019-12-24 17:49] LABS: INR 1.1 (0.9-1.1); Partial Thromboplastin Ratio 1.2; Partial Thromboplastin Time 33.6 Seconds (21.0-31.0); Prothrombin Time 11.3 Seconds (9.0-12.0)
[2019-12-24 17:51] LABS: Alanine Aminotransferase 27 U/L (12-78); Albumin Level 1.9 gm/dl (3.4-5.0); BUN Creatinine Ratio 25.3 (10-20); Blood Urea Nitrogen 27 mg/dl (7-18); Calcium 7.9 mg/dl (8.5-10.1); Carbon Dioxide 25 mmol/L (21-32); Chloride 98 mmol/L (98-107); Est GFR (African American) 89.2; Glucose 72 mg/dl (70-99); Lipase 25 U/L (73-393); Potassium 3.5 mmol/L (3.5-5.1); Sodium 132 mmol/L (136-145)
[2019-12-24 17:59] LABS: Albumin Globulin Ratio 0.4 (0.9-2); Alkaline Phosphatase 245 U/L (45-117); Aspartate Aminotransferase 55 U/L (15-37); Bilirubin,Total 0.4 mg/dl (0.2-1); Globulin 5.1 gm/dl (2.5-4.0)
[2019-12-24 18:00] LABS: Appearance Urine Turbid (Clear); Bacteria Urine Automated 4+ (Negative); Blood Urine 3+ (Negative); Color Urine Orange; Epithelial Cell Urine Auto >30 /lpf (0-5); Glucose Urine UA Negative (Negative); Ketones Urine Negative (Negative); Leukocyte Esterase Urine 3+ (Negative); Nitrite Urine Positive (Negative); Protein Urine 3+ (Negative); Specific Gravity Urine 1.018 (1.000-1.030); Urobilinogen Urine Negative (Negative); WBC Urine Automated >30 /hpf (0-5)
[2019-12-24 18:17] LABS: Bilirubin Urine Negative (Negative); Ictotest Urine Negative (Negative)
[2019-12-24 18:19] LABS: RBC Urine Automated >30 /hpf (0-4)
--- NOTE | 2019-12-24 18:30 | Ultrasound Report ---
EXAMINATION: RENAL ULTRASOUND CLINICAL HISTORY: Hematuria. COMPARISON STUDY: Supine abdomen dated 12/24/2019 FINDINGS: The right kidney measures 10.4 cm. The left kidney measures 12.7 cm. There is bilateral hy dronephrosis. The kidneys are somewhat lobulated without evidence of a definite mass. There is a jocy pected 6 mm lower pole left renal calculus. There is an indwelling Camp catheter. The bladder is decompressed. There is bladder wall thickening. IMPRESSION : 1. Bilateral hydronephrosis 2. 6 mm lower pole left renal calculus 3. Decompressed bladder. Bladder wall thickening. ACT 112: Negative or not required by law. Electronically signed by: Maxime Soriano M.D. 12/24/2019 6:28 PM
[2019-12-24] MEDS ORDERED: PIPERACILLIN/TAZOBACTAM 4.5 GM/120 ML BAG IV ONE (19:09)
[2019-12-24] MEDS ORDERED: PIPERACILL/TAZOBAC CONSULT ACTIVE PRN (19:09)
[2019-12-24] MEDS ORDERED: DAPTOmycin 500 MG in SYRINGE 0 ML IV ONE (20:40)
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
[2019-12-24] MEDS ORDERED: IOVERSOL 100ml IV ONE (22:53)
--- NOTE | 2019-12-24 23:07 | CT Scan Report ---
CT abdomen pelvis wo/w con CLINICAL HISTORY: Hematuria. Kidney stones. COMPARISON STUDY: Renal ultrasound dated 12/22/2019, CT scan dated 08/22/2019 TECHNIQUE: Unenhanced images were obtained through the abdomen and pelvis. The patient was then injec gwyn with 50 cc of Optiray 320. After a 5 minute delay, the patient was rescanned in a dynamic helical fashion during the distal administration of 43 cc of Optiray 320 A dose lowering technique was util ized adhering to the principles of ALARA. CT DOSE: 1721.09 mGy.cm FINDINGS: Lower chest: There is a hiatal hernia. There is mild lower lobe cylindrical bronchiectasis. There are dependent atelectatic changes. Liver: The contrast-enhanced liver is normal in size, contour, and attenuation. There is no intrahepa tic biliary ductal dilatation. The hepatic veins and portal veins are patent. Gallbladder: Surgically absent Spleen: The patient may be status post a prior splenectomy. There are several left upper quadrant spl enules. Pancreas: Unremarkable. Adrenal glands: Unremarkable. Kidneys: There are small bilateral renal calculi. There are bilateral nephroureteral stents. No urete ral calculi are visualized. There is gas present within both collecting systems. This could be second kishan to recent instrumentation or infection. There is mild bilateral hydronephrosis right more pronoun sabrina than left. No solid renal masses are visualized. Bowel: There are no transition zones to indicate bowel obstruction. There is no evidence of acute div erticulitis. By history the appendix is surgically absent. There are postsurgical changes involving t he stomach and there is an apparent small bowel anastomosis. There is a large amount stool within the rectal vault. The rectum measures 9 cm transversely. There is mild rectosigmoid wall thickening less pronounced than on the prior study Peritoneum: There is no intraperitoneal free air or abdominal ascites. Vasculature: The abdominal aorta is normal in course and caliber. Adenopathy: There are shoddy aortocaval lymph nodes, statistically reactive. Pelvic viscera: The distal aspect of the patella pigtail nephroureteral stents are visualized. There is bladder wall thickening. There is a small amount of intravesical air. There is a Camp catheter pr esent. Skeletal structures: No destructive osseous lesions are seen. IMPRESSION: 1. No evidence of bowel obstruction. No evidence of free air 2. Surgically absent appendix 3. Large amount stool within the rectal vault which measures 9 cm transversely 4. Bilateral nephrolithiasis 5. No ureteral calculi identified 6. There are bilateral double pigtail nephroureteral stents present 7. Indwelling Camp catheter 8. Mild bilateral hydronephrosis right greater than left 9. Collecting system gas, and gas in the bladder. This could be secondary to either recent instrument ation, or infection. 10. Bladder wall thickening ACT 112: Negative or not required by law. Electronically signed by: Maxime Soriano M.D. 12/24/2019 11:06 PM
[2019-12-24] MEDS: oxyCODONE HCL IR 5 MG TAB (IMMEDIATE RELEASE) PO PRN (23:51)
[2019-12-25] MEDS ORDERED: DOCUSATE SODIUM 100 MG CAP PO PRN (00:10)
[2019-12-25] MEDS ORDERED: POLYETHYLENE (MIRALAX) 17 GM PACK PO PRN (00:10)
[2019-12-25] MEDS ORDERED: bisacodyL 10 MG SUPP PR PRN (00:10)
--- NOTE | 2019-12-25 00:15 | Billing Data ---
Date of Service December 24, 2019 Coding Level of Care Code 69908 Initial Inpt Care Lvl 3
[2019-12-25] MEDS: SODIUM CHLORIDE 0.9% 1000ML 1,000 ML IV SCH ×2 (00:27→12:02)
[2019-12-25] MEDS: ATORVASTATIN 20 MG TAB PO SCH ×2 (00:29→20:22)
[2019-12-25] MEDS: PANTOprazole 40 MG TAB PO SCH ×3 (00:30→20:22)
[2019-12-25] MEDS: HEPARIN SOD 5,000 UNIT/0.5 ML VIAL SQ SCH ×3 (00:30→20:35)
[2019-12-25] MEDS: AMITRIPTYLINE HCL 50 MG TAB PO SCH ×2 (00:30→20:22)
[2019-12-25] MEDS: LINZESS~ORDER AWAITING ACTION SCH ×3 (00:32→15:55)
[2019-12-25] MEDS: PIPERACILLIN/TAZOBACTAM 3.375 GM in DEXTROSE 5% 100 ML IV SCH ×4 (00:32→23:36)
[2019-12-25] MEDS: SENNA 8.6 MG TAB PO SCH ×3 (01:45→20:28)
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
[2019-12-25] MEDS ORDERED: INFLUENZA VIRUS QUAD VACCINE 0.5 ML SYR IM ONE (08:00)
[2019-12-25] MEDS ORDERED: INFLUENZA ADMINISTRATION CHARGE ONE (08:00)
[2019-12-25] MEDS: oxyCODONE HCL IR 5 MG TAB (IMMEDIATE RELEASE) PO PRN ×3 (08:44→23:39)
[2019-12-25] MEDS: POLYETHYLENE (MIRALAX) 17 GM PACK PO SCH ×2 (08:46→20:39)
[2019-12-25] MEDS: FERROUS SULFATE 325 MG TAB PO SCH (08:46)
[2019-12-25] MEDS: FLUoxetine HCL 20 MG CAP PO SCH (08:46)
[2019-12-25] MEDS: ASPIRIN 81 MG ECTAB PO SCH (08:46)
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
[2019-12-25] MEDS: ACETAMINOPHEN 325 MG TAB PO PRN ×2 (10:55→19:42)
[2019-12-25] MEDS ORDERED: DAPTOmycin 475 MG in SYRINGE 0 ML IV SCH (21:00)
[2019-12-26] MEDS: LINZESS~ORDER AWAITING ACTION SCH ×4 (00:13→23:22)
[2019-12-26] MEDS: SODIUM CHLORIDE 0.9% 1000ML 1,000 ML IV SCH ×2 (00:49→13:05)
[2019-12-26] MEDS: ZOLPIDEM TARTRATE 10 MG TAB PO PRN ×2 (00:50→23:21)
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
[2019-12-26] MEDS: PIPERACILLIN/TAZOBACTAM 3.375 GM in DEXTROSE 5% 100 ML IV SCH (07:38)
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
[2019-12-26] MEDS: HEPARIN SOD 5,000 UNIT/0.5 ML VIAL SQ SCH ×2 (09:00→20:19)
[2019-12-26 09:09] LABS: Basophils # (auto) 0.08 K/uL (0-0.2); Basophils % (auto) 0.4 %; Eosinophils # (auto) 0.86 K/uL (0-0.5); Eosinophils % (auto) 4.6 %; Hematocrit (blood only) 28.3 % (42-52); Hemoglobin 9.2 g/dL (14.0-18.0); Immature Granulocytes # (auto) 0.17 K/uL (0.00-0.02); Immature Granulocytes % (auto) 0.9 %; Lymphocytes # (auto) 1.12 K/uL (1.2-3.4); Mean Corpuscular Hemoglobin 28.5 pg (25-34); Mean Corpuscular Hgb Conc 32.5 g/dL (32-36); Mean Corpuscular Volume 87.6 fL (80-100); Monocytes # (auto) 1.86 K/uL (0.11-0.59); Neutrophils # (auto) 14.43 K/uL (1.4-6.5); Neutrophils % (auto) 78.1 %; Platelet Count 293 K/uL (130-400); RDW Coefficient of Variation 16.3 % (11.5-14.5); RDW Standard Deviation 52.5 fL (36.4-46.3); Red Blood Count 3.23 M/uL (4.7-6.1); White Blood Count 18.52 K/uL (4.8-10.8)
[2019-12-26 09:37] LABS: BUN Creatinine Ratio 12.9 (10-20); Calcium 7.8 mg/dl (8.5-10.1); Creatinine Clr Calc Pharmacy 100.4 ml/min; Est GFR (African American) 109.7; Est GFR (Non-African American) 94.7; Potassium 3.3 mmol/L (3.5-5.1)
[2019-12-26 09:40] LABS: Albumin Level 1.4 gm/dl (3.4-5.0); Bilirubin Direct 0.2 mg/dl (0-0.2); Bilirubin,Total 0.5 mg/dl (0.2-1); Total Protein 5.7 gm/dl (6.4-8.2)
[2019-12-26] MEDS: POLYETHYLENE (MIRALAX) 17 GM PACK PO SCH ×4 (13:50→20:19)
[2019-12-26] MEDS: SENNA 8.6 MG TAB PO SCH ×2 (13:51→20:13)
[2019-12-26] MEDS: oxyCODONE HCL IR 5 MG TAB (IMMEDIATE RELEASE) PO PRN ×2 (13:58→20:12)
[2019-12-26] MEDS: PANTOprazole 40 MG TAB PO SCH ×2 (13:59→20:13)
[2019-12-26] MEDS: ASPIRIN 81 MG ECTAB PO SCH (14:00)
[2019-12-26] MEDS: FERROUS SULFATE 325 MG TAB PO SCH (14:00)
[2019-12-26] MEDS: FLUoxetine HCL 20 MG CAP PO SCH (14:00)
[2019-12-26] MEDS ORDERED: cefTRIAXone SODIUM 1,000 MG in DEXTROSE 5% 50 ML IV SCH (16:00)
[2019-12-26] MEDS: ACETAMINOPHEN 325 MG TAB PO PRN (16:01)
[2019-12-26] MEDS: ATORVASTATIN 20 MG TAB PO SCH (20:13)
[2019-12-26] MEDS: AMITRIPTYLINE HCL 50 MG TAB PO SCH (20:13)
[2019-12-27] MEDS: oxyCODONE HCL IR 5 MG TAB (IMMEDIATE RELEASE) PO PRN ×3 (00:43→15:02)
[2019-12-27] MEDS: SODIUM CHLORIDE 0.9% 1000ML 1,000 ML IV SCH ×2 (00:44→12:37)
[2019-12-27 08:17] LABS: Basophils # (auto) 0.09 K/uL (0-0.2); Basophils % (auto) 0.6 %; Eosinophils # (auto) 0.75 K/uL (0-0.5); Eosinophils % (auto) 4.6 %; Hematocrit (blood only) 27.9 % (42-52); Hemoglobin 9.2 g/dL (14.0-18.0); Immature Granulocytes # (auto) 0.34 K/uL (0.00-0.02); Immature Granulocytes % (auto) 2.1 %; Lymphocytes # (auto) 1.77 K/uL (1.2-3.4); Lymphocytes % (auto) 10.9 %; Mean Corpuscular Hemoglobin 28.9 pg (25-34); Mean Corpuscular Volume 87.7 fL (80-100); Mean Platelet Volume 9.9 fL (7.4-10.4); Monocytes # (auto) 1.92 K/uL (0.11-0.59); Monocytes % (auto) 11.8 %; Platelet Count 366 K/uL (130-400); RDW Coefficient of Variation 16.3 % (11.5-14.5); RDW Standard Deviation 53.1 fL (36.4-46.3); Red Blood Count 3.18 M/uL (4.7-6.1); White Blood Count 16.27 K/uL (4.8-10.8)
[2019-12-27] MEDS: LINZESS~ORDER AWAITING ACTION SCH (08:22)
[2019-12-27] MEDS: PANTOprazole 40 MG TAB PO SCH (08:34)
[2019-12-27] MEDS: FERROUS SULFATE 325 MG TAB PO SCH (08:34)
[2019-12-27] MEDS: FLUoxetine HCL 20 MG CAP PO SCH (08:34)
[2019-12-27] MEDS: SENNA 8.6 MG TAB PO SCH (08:34)
[2019-12-27] MEDS: ASPIRIN 81 MG ECTAB PO SCH (08:34)
[2019-12-27] MEDS: POLYETHYLENE (MIRALAX) 17 GM PACK PO SCH ×2 (08:35→14:22)
[2019-12-27] MEDS: HEPARIN SOD 5,000 UNIT/0.5 ML VIAL SQ SCH (08:37)
[2019-12-27 08:45] LABS: Albumin Level 1.4 gm/dl (3.4-5.0); BUN Creatinine Ratio 14.1 (10-20); Calcium 7.8 mg/dl (8.5-10.1); Creatinine Clr Calc Pharmacy 122.7 ml/min; Est GFR (African American) 119.2; Est GFR (Non-African American) 102.8; Potassium 3.3 mmol/L (3.5-5.1)
[2019-12-27 08:48] LABS: Albumin Globulin Ratio 0.3 (0.9-2); Bilirubin,Total 0.3 mg/dl (0.2-1); Globulin 4.8 gm/dl (2.5-4.0); Total Protein 6.2 gm/dl (6.4-8.2)
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
== END 2019-12-27 16:33 | disposition home or self-care (01) | DRG 699 ==
LOC: ED 16:18 → 3W 20:52 → SUATTDRO 20:52 → 3W 22:16

== ENCOUNTER 2020-01-09 17:37 | Inpatient (IN) ==
[2020-01-09] MEDS ORDERED: SODIUM CHLORIDE 0.9% 1000ML 1,000 ML IV SCH (18:15)
[2020-01-09 18:55] LABS: Hematocrit (blood only) 40.7 % (42-52); Hemoglobin 12.8 g/dL (14.0-18.0); Mean Corpuscular Hemoglobin 29.2 pg (25-34); Mean Corpuscular Hgb Conc 31.4 g/dL (32-36); Mean Corpuscular Volume 92.7 fL (80-100); Mean Platelet Volume 9.2 fL (7.4-10.4); Platelet Count 1069 K/uL (130-400); RDW Coefficient of Variation 16.9 % (11.5-14.5); RDW Standard Deviation 57.7 fL (36.4-46.3); Red Blood Count 4.39 M/uL (4.7-6.1); White Blood Count 24.02 K/uL (4.8-10.8)
[2020-01-09 19:00] LABS: Albumin Level 2.5 gm/dl (3.4-5.0); BUN Creatinine Ratio 23.2 (10-20); Calcium 8.7 mg/dl (8.5-10.1); Creatinine Clr Calc Pharmacy 57.3 ml/min; Est GFR (African American) 77.6; Est GFR (Non-African American) 66.9; Potassium 3.2 mmol/L (3.5-5.1)
[2020-01-09 19:01] LABS: Partial Thromboplastin Ratio 1.1; Partial Thromboplastin Time 29.3 Seconds (21.0-31.0); Prothrombin Time 10.3 Seconds (9.0-12.0)
[2020-01-09 19:03] LABS: Albumin Globulin Ratio 0.4 (0.9-2); Bilirubin,Total 0.2 mg/dl (0.2-1); Globulin 6.7 gm/dl (2.5-4.0); Total Protein 9.2 gm/dl (6.4-8.2)
--- NOTE | 2020-01-09 19:07 | XRay Report ---
XR chest 1V portable CLINICAL HISTORY: SEPSIS COMPARISON STUDY: 11/16/2019 FINDINGS: Postsurgical changes involve the thoracic spine and right humerus. The heart is normal in s ize. There is no failure. There is no focal pulmonary consolidation. There are no pleural effusions.[ IMPRESSION: No active disease in the chest. ACT 112: Negative or not required by law. Electronically signed by: Maxime Soriano M.D. 01/09/2020 7:06 PM
[2020-01-09] MEDS ORDERED: cefTRIAXone SODIUM 1,000 MG/50 ML BAG IV STA (19:12)
[2020-01-09 19:23] LABS: Basophils # (auto) 0.13 K/uL (0-0.2); Basophils % (auto) 0.5 %; Eosinophils # (auto) 0.12 K/uL (0-0.5); Eosinophils % (auto) 0.5 %; Hypochromasia Present; Immature Granulocytes # (auto) 0.12 K/uL (0.00-0.02); Immature Granulocytes % (auto) 0.5 %; Lymphocytes # (auto) 1.83 K/uL (1.2-3.4); Lymphocytes % (auto) 7.6 %; Monocytes # (auto) 1.06 K/uL (0.11-0.59); Monocytes % (auto) 4.4 %; Neutrophils # (auto) 20.76 K/uL (1.4-6.5); Neutrophils % (auto) 86.5 %
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
[2020-01-09 19:32] LABS: Appearance Urine Turbid (Clear); Bilirubin Urine Negative (Negative); Blood Urine 3+ (Negative); Color Urine Red; Glucose Urine UA Negative (Negative); Ketones Urine Trace (Negative); Leukocyte Esterase Urine 2+ (Negative); Nitrite Urine Negative (Negative); Protein Urine 3+ (Negative); Specific Gravity Urine >= 1.030 (1.000-1.030); Urobilinogen Urine Negative (Negative)
[2020-01-09] MEDS ORDERED: SODIUM CHLORIDE 0.9% 1000ML 1,000 ML IV ONE (19:36)
[2020-01-09 19:39] LABS: Bacteria Urine 4+ (Negative); Epithelial Cell Urine 0-5 /lpf (0-5); RBC Urine >30 /hpf (0-4); WBC Urine >30 /hpf (0-5)
--- NOTE | 2020-01-09 19:41 | CT Scan Report ---
CT SCAN OF THE ABDOMEN AND PELVIS WITHOUT CONTRAST CLINICAL HISTORY: hematuria dysuria sepsis COMPARISON STUDY: 12/24/2019 TECHNIQUE: CT scan of the abdomen and pelvis was performed from the lung bases to the proximal femurs . Images are reviewed in the axial, sagittal, and coronal planes. IV contrast was not administered fo r this examination. A dose lowering technique was utilized adhering to the principles of ALARA. CT DOSE: 352.80 mGy.cm FINDINGS: Lower chest: The heart is normal in size and configuration, without pericardial effusion. The lung ba ses and pleural spaces are clear. Liver: The unenhanced liver is normal in size, contour, and attenuation. There is no intrahepatic jad iary ductal dilatation. Gallbladder: Surgically absent Spleen: Surgically absent with left upper quadrant splenules Pancreas: Unremarkable. Adrenal glands: Unremarkable. Kidneys: There are tiny bilateral renal calculi. There is bilateral collecting system gas. There are bilateral nephroureteral stents. There is bilateral ureteral thickening. There is an indwelling [place] catheter. There is a tiny bladder calculus. Bowel: There are no transition zones to indicate bowel obstruction. There are postsurgical changes at the esophagogastric junction. There are postsurgical changes present within the small bowel. There a re colonic air-fluid levels. There is a large amount stool within the rectum measuring 9 cm transvers frantz. There is mild rectal wall thickening. Stercoral colitis cannot be excluded. By history the appen myrtle is surgically absent. Peritoneum: There is no intraperitoneal free air or abdominal ascites. Vasculature: The abdominal aorta is normal in course and caliber. Adenopathy: None. Pelvic viscera: There is an indwelling [place] catheter. There is bladder wall thickening. There are bi lateral nephroureteral stents. Skeletal structures: No destructive osseous lesions are seen. IMPRESSION: 1. Fecal retention and suspected constipation. Large amount stool within the rectal vault which measu res 9 cm transversely. There is associated rectal wall thickening. Stercoral colitis cannot be exclud ed. 2. Bilateral nephrolithiasis. 3. Bilateral double pigtail nephroureteral stents 4. Indwelling [place] catheter. Small bladder calculus. 5. Bladder wall thickening 6. Bilateral collecting system gas and mild ureteral thickening. This could be iatrogenic or secondar y to infection. Clinical correlation in this regard will be necessary. ACT 112: Negative or not required by law. Electronically signed by: Maxime Soriano M.D. 01/09/2020 7:40 PM
[2020-01-09] MEDS ORDERED: MoRPHine SULFATE 2 MG/ML CARP IV STA (19:42)
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
[2020-01-09] MEDS ORDERED: oxyCODONE/ACETAMINOPHEN 10-325 TAB ONE (22:38)
[2020-01-10] MEDS ORDERED: ACETAMINOPHEN 325 MG TAB PO PRN (00:34)
[2020-01-10] MEDS ORDERED: ONDANSETRON INJ 2 MG/ML 2 ML VIAL IV PRN (00:34)
[2020-01-10] MEDS: PANTOprazole 40 MG TAB PO SCH ×3 (01:55→20:30)
[2020-01-10] MEDS: ATORVASTATIN 20 MG TAB PO SCH ×2 (01:55→20:30)
[2020-01-10] MEDS: TRIAMCINOLONE ACET 0.1% CR 15 GM TUBE TOP SCH ×3 (01:55→20:30)
[2020-01-10] MEDS: AMITRIPTYLINE HCL 50 MG TAB PO SCH ×2 (01:55→20:30)
[2020-01-10] MEDS: NSS + 20MEQ KCL 20 MEQ/1,000 ML BAG IV SCH ×3 (01:56→15:41)
[2020-01-10] MEDS: SENNA 8.6 MG TAB PO SCH ×3 (01:56→20:30)
[2020-01-10 06:16] LABS: Basophils # (auto) 0.25 K/uL (0-0.2); Basophils % (auto) 1.6 %; Eosinophils # (auto) 0.17 K/uL (0-0.5); Eosinophils % (auto) 1.1 %; Hematocrit (blood only) 32.7 % (42-52); Hemoglobin 10.4 g/dL (14.0-18.0); Immature Granulocytes # (auto) 0.05 K/uL (0.00-0.02); Immature Granulocytes % (auto) 0.3 %; Lymphocytes # (auto) 3.22 K/uL (1.2-3.4); Mean Corpuscular Hemoglobin 29.3 pg (25-34); Mean Corpuscular Hgb Conc 31.8 g/dL (32-36); Mean Corpuscular Volume 92.1 fL (80-100); Mean Platelet Volume 9.2 fL (7.4-10.4); Monocytes # (auto) 1.47 K/uL (0.11-0.59); Monocytes % (auto) 9.6 %; Neutrophils % (auto) 66.4 %; Platelet Count 863 K/uL (130-400); RDW Coefficient of Variation 16.7 % (11.5-14.5); RDW Standard Deviation 55.7 fL (36.4-46.3); Red Blood Count 3.55 M/uL (4.7-6.1); White Blood Count 15.36 K/uL (4.8-10.8)
[2020-01-10 06:39] LABS: Partial Thromboplastin Ratio 1.1; Partial Thromboplastin Time 30.9 Seconds (21.0-31.0); Prothrombin Time 10.9 Seconds (9.0-12.0)
[2020-01-10 06:55] LABS: Albumin Globulin Ratio 0.4 (0.9-2); Albumin Level 2.1 gm/dl (3.4-5.0); BUN Creatinine Ratio 27.5 (10-20); Bilirubin,Total 0.2 mg/dl (0.2-1); Calcium 8.1 mg/dl (8.5-10.1); Creatinine Clr Calc Pharmacy 120.4 ml/min; Est GFR (African American) 119.2; Est GFR (Non-African American) 102.8; Globulin 5.1 gm/dl (2.5-4.0); Magnesium 1.7 mg/dl (1.8-2.4); Potassium 3.1 mmol/L (3.5-5.1); Total Protein 7.2 gm/dl (6.4-8.2)
[2020-01-10] MEDS: ASPIRIN 81 MG ECTAB PO SCH (08:25)
[2020-01-10] MEDS: FLUoxetine HCL 20 MG CAP PO SCH (08:26)
[2020-01-10] MEDS: MULTIVITAMIN TAB PO SCH (08:26)
[2020-01-10] MEDS: FERROUS SULFATE 325 MG TAB PO SCH (08:26)
[2020-01-10] MEDS: ENOXAPARIN INJ 40 MG/0.4 ML SYR SQ SCH (08:27)
[2020-01-10] MEDS: oxyCODONE/ACETAMINOPHEN 10-325 TAB PO PRN ×3 (08:43→21:49)
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
[2020-01-10] MEDS: SOD PHOSPHATE/SOD BIPHOSPHATE ENEMA 132 ML BTL PR STA ×2 (11:46→12:09)
[2020-01-10] MEDS: POLYETHYLENE (MIRALAX) 17 GM PACK PO SCH (11:46)
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
--- NOTE | 2020-01-10 12:32 | Electrocardiogram Report ---
Test Reason : Blood Pressure : / mmHG Vent. Rate : 096 BPM Atrial Rate : 096 BPM P-R Int : 148 ms QRS Dur : 102 ms QT Int : 400 ms P-R-T Axes : 065 -48 064 degrees QTc Int : 505 ms Normal sinus rhythm Incomplete right bundle branch block Left anterior fascicular block Prolonged QT Abnormal ECG When compared with ECG of 17-NOV-2019 09:38, Left anterior fascicular block is now Present Nonspecific ST and T wave abnormality has resolved Confirmed by Jaspreet Nixon ([id number]) on 01/10/2020 12:32:24 PM Referred By: REFERRED SELF Confirmed By:Jaspreet Nixon
[2020-01-10] MEDS ORDERED: cefTRIAXone SODIUM 1,000 MG in DEXTROSE 5% 50 ML IV SCH (18:00)
[2020-01-10] MEDS ORDERED: MELATONIN 3 MG TAB PO PRN (23:06)
[2020-01-11] MEDS: oxyCODONE/ACETAMINOPHEN 10-325 TAB PO PRN ×3 (04:13→16:30)
[2020-01-11 06:49] LABS: Basophils # (auto) 0.36 K/uL (0-0.2); Basophils % (auto) 3.9 %; Eosinophils # (auto) 0.35 K/uL (0-0.5); Eosinophils % (auto) 3.8 %; Hematocrit (blood only) 31.9 % (42-52); Hemoglobin 9.8 g/dL (14.0-18.0); Immature Granulocytes # (auto) 0.02 K/uL (0.00-0.02); Immature Granulocytes % (auto) 0.2 %; Lymphocytes # (auto) 1.97 K/uL (1.2-3.4); Lymphocytes % (auto) 21.3 %; Mean Corpuscular Hemoglobin 28.3 pg (25-34); Mean Corpuscular Hgb Conc 30.7 g/dL (32-36); Mean Corpuscular Volume 92.2 fL (80-100); Mean Platelet Volume 9.2 fL (7.4-10.4); Monocytes # (auto) 0.94 K/uL (0.11-0.59); Monocytes % (auto) 10.2 %; Neutrophils # (auto) 5.59 K/uL (1.4-6.5); Neutrophils % (auto) 60.6 %; Platelet Count 818 K/uL (130-400); RDW Coefficient of Variation 17.1 % (11.5-14.5); RDW Standard Deviation 57.7 fL (36.4-46.3); Red Blood Count 3.46 M/uL (4.7-6.1); White Blood Count 9.23 K/uL (4.8-10.8)
[2020-01-11 06:55] LABS: Partial Thromboplastin Ratio 1.1; Partial Thromboplastin Time 29.5 Seconds (21.0-31.0); Prothrombin Time 10.8 Seconds (9.0-12.0)
[2020-01-11 07:38] LABS: Est GFR (African American) 134.1; Est GFR (Non-African American) 115.7; Potassium 3.9 mmol/L (3.5-5.1)
[2020-01-11 07:39] LABS: Albumin Globulin Ratio 0.4 (0.9-2); Albumin Level 1.9 gm/dl (3.4-5.0); BUN Creatinine Ratio 16.2 (10-20); Bilirubin,Total 0.3 mg/dl (0.2-1); Calcium 8.2 mg/dl (8.5-10.1); Globulin 4.7 gm/dl (2.5-4.0); Magnesium 1.8 mg/dl (1.8-2.4); Total Protein 6.6 gm/dl (6.4-8.2)
--- NOTE | 2020-01-11 07:43 | Hospitalist Progress Note ---
Date of Service January 11, 2020 Assessment & Plan Admission and Anticipated Discharge Date Admission Date: January 09, 2020 Results & Data Results & Data ([facility]) Vital Signs (Past 12 Hours) Vital Signs Temp Pulse Pulse Resp BP Pulse Ox 01/11/20 03:30 36.4 C L 78 20 164/99 H 95 01/10/20 23:00 36.5 C 85 20 139/82 98 01/10/20 22:20 84
[2020-01-11] MEDS: ENOXAPARIN INJ 40 MG/0.4 ML SYR SQ SCH (08:05)
[2020-01-11] MEDS: FERROUS SULFATE 325 MG TAB PO SCH (08:06)
[2020-01-11] MEDS: MULTIVITAMIN TAB PO SCH (08:06)
[2020-01-11] MEDS: SENNA 8.6 MG TAB PO SCH (08:06)
[2020-01-11] MEDS: ASPIRIN 81 MG ECTAB PO SCH (08:06)
[2020-01-11] MEDS: PANTOprazole 40 MG TAB PO SCH (08:07)
[2020-01-11] MEDS: POLYETHYLENE (MIRALAX) 17 GM PACK PO SCH (08:07)
[2020-01-11] MEDS: FLUoxetine HCL 20 MG CAP PO SCH (08:07)
[2020-01-11] MEDS: TRIAMCINOLONE ACET 0.1% CR 15 GM TUBE TOP SCH (08:07)
--- NOTE | 2020-01-11 09:47 | Urology Progress Note ---
Date of Service January 11, 2020 Assessment & Plan (1) Sepsis due to urinary tract infection: (2) Paraplegia following spinal cord injury: 59 year-old male patient, with multiple comorbidities including chronic indwelling garrison catheter, admitted with complicated UTI and sepsis. -Plan of care reviewed with Dr. Mcintosh. -Patient clinically improving with antibiotic therapy and supportive care. -Remains afebrile. -Labs reviewed - white count improving, creatinine stable. -Urine culture positive for E.Coli UTI, antibiotics per primary team. -No acute intervention indicated at this time. -Will arrange outpatient follow-up with urology service to discuss stent management. -Otherwise recommend supportive care, antibiotic therapy, and bowel regimen with possible GI assessment if issues continue. Thank you for allowing us to participate in the acute care of Mr. Guardado. Nimisha ron reconsult us with additional questions, concerns or changes in patient status. Admission and Anticipated Discharge Date Admission Date: January 09, 2020 Subjective Patient examined this morning, awake and alert. Reports he continues to feel better each day, feeling "much better" since hospital admission. Denies fevers or chills. Denies nausea or vomiting. Has been having daily bowel movements with current bowel regimen. Denies abdominal or flank pain. Tolerating catheter, without issues. Per patient, catheter was changed this admission. Chart review: Afebrile Wbc 9.23 (previously 15.36) Hgb 9.8 Creatinine 0.54 Preliminary blood cultures no growth after 24 hours. Urine culture positive for E.Coli, currently on IV Ceftriaxone. Denies additional urologic concerns today. Review of Systems Constitutional: as per Subjective / HPI; no fever and no chills Gastrointestinal: as per Subjective / HPI; no nausea and no vomiting Genitourinary: + as per Subjective / HPI Physical Exam Constitutional: well developed and well nourished; no acute distress and not ill appearing Respiratory: normal respiratory effort and able to speak in complete sentences; no respiratory distress and no audible wheezes Gastrointestinal (Abdomen): Inspection/Auscultation: abdomen normal to inspection; abdomen not distended Percussion/Palpation: abdomen soft; abdomen nontender and no guarding Psychiatric: Orientation: alert, oriented x 3 and cooperative Affect: euthymic affect Genitourinary: no CVA tenderness Garrison catheter intact draining concentrated yellow with some cloudy sediment. Results & Data ([facility]) Vital Signs (Past 12 Hours) Vital Signs Temp Pulse Pulse Resp BP Pulse Ox 01/11/20 08:00 36.3 C L 73 18 139/92 90 01/11/20 07:00 73 01/11/20 03:30 36.4 C L 78 20 164/99 H 95 01/10/20 23:00 36.5 C 85 20 139/82 98 01/10/20 22:20 84 PG Care Time/CCT Total # of Minutes Spent Total Time Spent with Patient: Total time spent is greater than 50% in coordination of care (as documented) at patient's floor/unit and/or counseling patient: Coding Level of Care Code 46156 Subseq Hosp Care Lvl 2 Diagnoses Sepsis due to urinary tract infection A41.9; N39.0 Paraplegia following spinal cord injury G82.20
[2020-01-11 11:30] VITALS: BP 126/79; PULSE 76; TEMP 97.7; O2SAT 94
--- NOTE | 2020-01-11 14:54 | Discharge Summary ---
Date of Service January 11, 2020 Admission HPI Per Admitting Provider The patient is a 59-year-old male with a past medical history including chronic indwelling Garrison catheter, bilateral nephrolithiasis, bilateral double pigtail nephroureteral stents, depression, anemia, lactic acidosis, supratherapeutic INR, sepsis, admission to ICU, fecal impaction, right pyelonephritis, septic shock, hypomagnesemia, obstructed Garrison catheter, catheter associated UTI, acute renal failure, left ureteral stone, left hydroureteronephrosis, GERD, Beck's esophagus, iron deficiency anemia, hyperlipidemia, hypertension, depression, paraplegia following spinal cord injury, history of partial gastrectomy, partial colectomy, splenectomy, appendectomy, cholecystectomy and colon adenomas. His most recent admission to [facility] was from 12/23-12/27/2019. He presents with symptoms that he usually gets that indicate a urinary tract infection, and when he has been septic in the past, he has had nausea and vomiting as he presents with today. Admission Exam Per Admitting Provider The patient is awake, alert and oriented 3, normocephalic and atraumatic, lying in bed and in no acute distress. HEENT--PERRL, EOMI, mucous membranes and oropharynx dry. Neck--supple. No JVD. No bruits. Thyroid normal, trachea midline, no adenopathy. Heart--normal S1 and S2. No murmurs, rubs or gallops. Lungs--clear bilaterally, no respiratory distress, no accessory muscle use. Abdomen--normal bowel sounds and soft. Nontender. Nondistended. Extremities--no cyanosis or clubbing. No edema. There are good distal pulses b/l. Dermatologic--normal skin turgor, normal color, no abnormal lymph nodes, no rash. Neurologic--cranial nerves II through XII grossly intact. Paraplegia Rheumatologic--paraplegia Psychiatric--normal affect. Principal Diagnosis sepsis related to UTI Discharge Exam Constitutional well developed and well nourished; no acute distress Eyes PERRL, conjunctivae normal, anicteric sclerae ENMT external ear and nose normal, oropharynx normal Neck trachea midline, no thyromegaly Respiratory normal respiratory effort, lungs clear to auscultation Cardiovascular RRR, no murmur, no edema Gastrointestinal (Abdomen) Inspection/Auscultation: abdomen normal to inspection and normal bowel sounds; abdomen not distended Denies tenderness to palpation secondary to T7 injury in past, unable to feel pain. Psychiatric A+Ox3, euthymic affect Discharge Data Allergies Allergy/AdvReac Type Severity Reaction Status Date / Time ibuprofen AdvReac Intermediate GI Bleed Verified 01/09/20 20:03 caffeine AdvReac Unknown Gastrointestinal Verified 01/09/20 20:03 Upset Consultations 01/09/20 19:43 ED Decision to Admit Stat 01/10/20 00:34 Consult Case Management - Discharge Planning Routine Consult Urology Routine Ordered Studies 01/09/20 18:48 CT abd pelvis wo con Stat Hospital Course (1) Sepsis due to urinary tract infection: 59 yo M w/ PMHx. of b/l nephrolithiasis, b/l nephroureteral stents, chronic garrison, prior CAUTI (e. coli sens. to Ceftrixone), ARF, and paraplegia at level of T7A. He presented with changes in his Garrison catheter at home prior to arrival in ED. He is thought to have sepsis d/t UTI and was started on CTX and IVF. Sepsis due to urinary tract infection (CAUTI) - Continue ceftriaxone 1 g IV daily begun in the ED. - Cultures growing E. Coli, sensitive to rocephin - Had recieved IVF in ED and while inpatient - Urology consulted, appropriate stents and abx treatment, recommend outpatient follow up - Transitioned to Omnicef 300mg BID x8 days upon discharge to finish abx course. Constipation in the setting of paraplegia - CT w/ findings of 9cm of stool in rectal vault - LBM 01/08 after he gave himself an enema - Prior to being given Miralax and Enema, patient had bowel movement. - Recommended patient add titrating Miralax PRN for daily bowel movements in addition to his daily bowel regiment of Ana and Lazarus Reactive thrombocytosis: - Platelets upon admission 1069, with usual range 293-366. - downtrending to ~800's, suspect as reactive secondary to sepsis. GERD (gastroesophageal reflux disease)/ Beck's esophagus - Continue omeprazole 40 mg p.o. twice daily Hyperlipidemia: - Continued atorvastatin 20 mg at bedtime Hypertension: - Continued aspirin 81 mg every morning Depression: - Continued amitriptyline 50 mg at bedtime, and fluoxetine 60 mg every morning. Paraplegia following spinal cord injury: - Continued usual support medications Total Time Total Time Spent Total Time Spent (In Minutes): <30 Discharge Plan Discharge Items Patient Disposition: Home - Self-Care Reason For Visit: SEPSIS DUE TO UTI Discharge Diagnosis: Sepsis UTI from E. Coli infection, Constipation Activity: Per Instructions section Non-emergency contact: Primary Care Provider Call non-emergency contact if: you have any medication questions and your symptoms worsen Follow-up/Referrals: Zenaida Flanagan PA-C [Primary Care Provider] - 01/26/20 9:30 am (If you need to change this appointment, please call [phone].) Diet: Regular Addtl Attending Provider Instructions: Mr. Guardado, It was our pleasure caring for you at [facility] from 01/08 - 01/11/20 for your UTI and constipation. Please see below for a summary of your care. Sepsis due to urinary tract infection - You were started on an IV antibiotic, ceftriaxone, while in the Emergency room and continued on that during your stay. - Cultures were also taken of your urine which grew E. Coli which was sensitive to the antibiotic you were taking. - You are being switched to an oral medication, Omnicef (Cefdinir), please take as prescribed Cefdinir 300 mg twice a day by mouth for the next 8 days. -You were also seen by Urology who felt it was appropriate for you to follow up with them outpatient. Constipation in the setting of paraplegia - CT w/ findings of 9cm of stool in rectal vault - LBM 01/08 after he gave himself an enema - We would recommend you continue your home bowel regiment, but in addition add on a sliding scale for Miralax. - Please dose the Miralax (capfuls) based on your previous days bowel movement. - You would want to have at least 1 "hearty" bowel movement daily. - If you don't, increase the amount of Miralax you're taking daily until you are having good bowel movements. Reactive thrombocytosis - Platelets upon admission 1069, with usual range 293-366. - downtrending to 800's this morning - Suspect this is due to your acute infection and will resolve on it's own. GERD (gastroesophageal reflux disease)/ Beck's esophagus - Continue omeprazole 40 mg p.o. twice daily Hyperlipidemia: - Continue atorvastatin 20 mg at bedtime Hypertension: - Continue aspirin 81 mg every morning Depression: - Continue amitriptyline 50 mg at bedtime, and fluoxetine 60 mg every morning. Please follow up with your PCP in the following 1-2 weeks or sooner if your symptoms worsen . Pending Studies at Discharge: No Stand-Alone Forms: My [facility] eCert, Smoking Cessation Medications and DC Order Prescriptions: New cefdinir 300 mg capsule 300 mg PO BID 8 Days Qty: 16 RF: 0 Continued multivitamin Tablet 1 tab PO QAM RF: 0 atorvastatin 20 mg Tablet 20 mg PO HS RF: 0 omeprazole 40 mg Capsule,Delayed Release(Dr/Ec) 40 mg PO BID RF: 0 oxycodone-acetaminophen 10-325 mg Tablet 1 tab PO Q6H PRN (Reason: Pain) RF: 0 ferrous sulfate [iron] 325 mg (65 mg iron) Tablet 325 mg PO QAM RF: 0 Linzess 145 mcg Capsule 145 mcg PO QAM RF: 0 triamcinolone acetonide 0.1 % cream 1 applic TOPICAL BID RF: 0 fluoxetine 60 mg tablet 60 mg PO QAM RF: 0 sennosides [Senokot] 8.6 mg Tablet 25.8 mg PO AMPM RF: 0 aspirin 81 mg Tablet,Delayed Release (Dr/Ec) 81 mg PO QAM RF: 0 amitriptyline 50 mg Tablet 50 mg PO HS RF: 0 Discharge Orders: Discharge Order (Routine); Ordered 01/11/20 Ordered By: Kaiden Wolfe Admission Data Admit Date/Time: 01/09/20 20:44 Attending Provider: Geronimo Mckinney Admit Provider: Jah Palencia Primary Care Provider: Zenaida Flanagan Other Providers: Jah Palencia ; Leonid Sim ; Narendra Escalona Other Interventions: Discharge Summary Assessment (RN) Last Done: 01/11/20 15:29 Supervising Physician Co-Signing Physician Notes I personally examined the patient and verified all pleitez points of history and exam, discussed case, and agree with decision making with Dr Wolfe. feeling better really would like to go home. answered all of pt/ questions to the best of my ability and to their satisfaction vitals noted nad heent nc at mmm breathing unlabored no accessory muscles good effort sepsis due to UTI - present on admission and improving - safe for home on cefdinir fecal retention - improved. discussed home regimen plus stacked dosing of miralax tiered w goal of affecting one medium to large BM daily. also discussed limitations of CT in identifying things like cancers (was one of 's concerns for his bowel issues) but noted that colon obstructions due to cancers don't typically behave this way - but that the most reaosnable course would be to keep him UTD on colo. stable for home otherwise as above Resident Activity Tracking Resident Involvement: Resident Care Provided Care Provided: Adult Hospital Medicine
--- NOTE | 2020-01-11 17:35 | Billing Data ---
Date of Service January 11, 2020 Coding Level of Care Code D/C Day Management <30 mins
== END 2020-01-11 16:35 | disposition home or self-care (01) | DRG 872 ==
LOC: ED 17:37 → SUATTDRO 20:44 → 2N 20:44

== ENCOUNTER 2020-03-25 14:32 | Inpatient (IN) ==
--- NOTE | 2020-03-25 15:13 | Emergency Department Note ---
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 prior spinal cord injury. No other acute GI pathology noted. An order was placed for continuous cardiac monitoring. The monitor shows a rate of _108_ with _sinus tachycardia_ rhythm. Impression & Plan Sepsis, Paraplegia following spinal cord injury, Catheter-associated urinary tract infection, Hematuria, Urinary tract infection Discharge Plan Visit Data Chief Complaint: Hematuria Stated Complaint: Blood in urine ED Provider: Beth Stratton Discharge Problem: Sepsis, Paraplegia following spinal cord injury, Catheter-associated urinary tract infection, Hematuria, Urinary tract infection Patient Disposition: Admitted As Inpatient Discharge Instructions Interventions: ED Discharge Assessment Last Done: 03/25/20 19:25 Forms Stand Alone Forms: [facility] Prescriptions Prescriptions: No Action docusate sodium [Stool Softener] 250 mg capsule 250 mg PO BID RF: 0 ascorbic acid (vitamin C) 500 mg capsule 500 mg PO BID RF: 0 zolpidem 10 mg tablet 10 mg PO HS PRN (Reason: Sleep) RF: 0 methenamine hippurate 1 gram tablet 1 g PO Q12H Qty: 60 RF: 6 multivitamin Tablet 1 tab PO QAM RF: 0 atorvastatin 20 mg Tablet 20 mg PO HS RF: 0 omeprazole 40 mg Capsule,Delayed Release(Dr/Ec) 40 mg PO BID RF: 0 oxycodone-acetaminophen 10-325 mg Tablet 1 tab PO Q6H PRN (Reason: Pain) RF: 0 ferrous sulfate [iron] 325 mg (65 mg iron) Tablet 325 mg PO QAM RF: 0 Linzess 145 mcg Capsule 145 mcg PO QAM RF: 0 triamcinolone acetonide 0.1 % cream 1 applic TOPICAL BID RF: 0 fluoxetine 60 mg tablet 60 mg PO QAM RF: 0 sennosides [Senokot] 8.6 mg Tablet 25.8 mg PO AMPM RF: 0 aspirin 81 mg Tablet,Delayed Release (Dr/Ec) 81 mg PO QAM RF: 0 amitriptyline 50 mg Tablet 50 mg PO HS RF: 0 Referrals Referrals: Zenaida Flanagan PA-C [Primary Care Provider] - Discharge Problem: Sepsis Qualifiers: Sepsis type: sepsis due to unspecified organism Sepsis acute organ dysfunction status: without acute organ dysfunction Qualified Code(s): A41.9 - Sepsis, unspecified organism Catheter-associated urinary tract infection Qualifiers: Indwelling urinary catheter type: indwelling urethral catheter Encounter type: initial encounter Qualified Code(s): T83.511A - Infection and inflammatory reaction due to indwelling urethral catheter, initial encounter Hematuria Qualifiers: Hematuria type: gross Qualified Code(s): R31.0 - Gross hematuria Urinary tract infection Qualifiers: Urinary tract infection type: catheter-associated UTI Indwelling urinary catheter type: indwelling urethral catheter Encounter type: initial encounter Qualified Code(s): T83.511A - Infection and inflammatory reaction due to indwelling urethral catheter, initial encounter
[2020-03-25] MEDS ORDERED: LACTATED RINGER'S 1,000 ML IV SCH (15:15)
[2020-03-25 15:54] LABS: Basophils # (auto) 0.12 K/uL (0-0.2); Basophils % (auto) 0.7 %; Eosinophils # (auto) 0.24 K/uL (0-0.5); Eosinophils % (auto) 1.5 %; Hematocrit (blood only) 41.7 % (42-52); Hemoglobin 13.6 g/dL (14.0-18.0); Immature Granulocytes # (auto) 0.04 K/uL (0.00-0.02); Immature Granulocytes % (auto) 0.2 %; Lymphocytes # (auto) 2.28 K/uL (1.2-3.4); Lymphocytes % (auto) 14.1 %; Mean Corpuscular Hemoglobin 29.2 pg (25-34); Mean Corpuscular Hgb Conc 32.6 g/dL (32-36); Mean Corpuscular Volume 89.7 fL (80-100); Mean Platelet Volume 9.4 fL (7.4-10.4); Monocytes # (auto) 1.29 K/uL (0.11-0.59); Neutrophils # (auto) 12.19 K/uL (1.4-6.5); Neutrophils % (auto) 75.5 %; Platelet Count 574 K/uL (130-400); RDW Coefficient of Variation 17.3 % (11.5-14.5); RDW Standard Deviation 56.8 fL (36.4-46.3); Red Blood Count 4.65 M/uL (4.7-6.1); White Blood Count 16.16 K/uL (4.8-10.8)
[2020-03-25] MEDS ORDERED: CEFEPIME 2,000 MG/20 ML VIAL IV STA (15:59)
--- NOTE | 2020-03-25 16:05 | XRay Report ---
SINGLE VIEW CHEST CLINICAL HISTORY: Sepsis. FINDINGS: An AP, portable, upright chest radiograph is compared to study dated 01/09/2020. The cardiom ediastinal silhouette is unremarkable. The lungs and pleural spaces are clear. No pneumothorax is see n. The skeletal structures are osteopenic. Degenerative change and scoliosis are noted in the thoraci c spine. Arthritic changes seen in the shoulders. Postoperative change is noted in the thoracic spine and the right humerus. IMPRESSION: No active disease in the chest. ACT 112: Negative or not required by law. Electronically signed by: Luther Vasquez M.D. 03/25/2020 4:04 PM
[2020-03-25 16:06] LABS: INR 0.9 (0.9-1.1)
[2020-03-25 16:11] LABS: Alanine Aminotransferase 27 U/L (12-78); Albumin Level 2.8 gm/dl (3.4-5.0); Aspartate Aminotransferase 25 U/L (15-37); BUN Creatinine Ratio 23.7 (10-20); Blood Urea Nitrogen 23 mg/dl (7-18); Carbon Dioxide 22 mmol/L (21-32); Chloride 109 mmol/L (98-107); Est GFR (African American) 100.6; Est GFR (Non-African American) 86.8; Glucose 63 mg/dl (70-99); Magnesium 2.1 mg/dl (1.8-2.4); Potassium 3.1 mmol/L (3.5-5.1); Sodium 138 mmol/L (136-145)
[2020-03-25 16:15] LABS: Albumin Globulin Ratio 0.5 (0.9-2); Alkaline Phosphatase 162 U/L (45-117); Bilirubin,Total 0.2 mg/dl (0.2-1); Globulin 5.7 gm/dl (2.5-4.0); Total Protein 8.5 gm/dl (6.4-8.2); Troponin I < 0.015 ng/ml (0-0.045)
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
[2020-03-25 17:56] LABS: Appearance Urine Slightly Cloudy (Clear); Bilirubin Urine Negative (Negative); Blood Urine 2+ (Negative); Color Urine Yellow; Glucose Urine UA Negative (Negative); Ketones Urine Negative (Negative); Leukocyte Esterase Urine 3+ (Negative); Nitrite Urine Positive (Negative); Protein Urine 2+ (Negative); Specific Gravity Urine 1.025 (1.000-1.030); Urobilinogen Urine Negative (Negative)
[2020-03-25 17:59] LABS: RBC Urine >30 /hpf (0-4)
[2020-03-25 18:01] LABS: Bacteria Urine 1+ (Negative); WBC Urine >30 /hpf (0-5)
[2020-03-25] MEDS ORDERED: SENNA 8.6 MG TAB PO STA (19:39)
[2020-03-25] MEDS ORDERED: ALUMINUM/MAGNESIUM SUSP 30 ML UDC PO PRN (20:27)
[2020-03-25] MEDS ORDERED: ONDANSETRON INJ 2 MG/ML 2 ML VIAL IV PRN (20:27)
[2020-03-25] MEDS ORDERED: POLYETHYLENE (MIRALAX) 17 GM PACK PO ONE (20:30)
[2020-03-25] MEDS: PANTOprazole 40 MG TAB PO SCH (21:59)
[2020-03-25] MEDS: ASCORBIC ACID 500 MG TAB PO SCH (22:00)
[2020-03-25] MEDS: ATORVASTATIN 20 MG TAB PO SCH (22:00)
[2020-03-25] MEDS: DOCUSATE SODIUM 100 MG CAP PO SCH (22:00)
[2020-03-25] MEDS: SENNA 8.6 MG TAB PO SCH (22:01)
[2020-03-25] MEDS: POLYETHYLENE (MIRALAX) 17 GM PACK PO SCH (22:01)
[2020-03-25] MEDS: AMITRIPTYLINE HCL 50 MG TAB PO SCH (22:02)
[2020-03-25] MEDS: TRIAMCINOLONE ACET 0.1% CR 15 GM TUBE TOP SCH (22:04)
[2020-03-25] MEDS: oxyCODONE/ACETAMINOPHEN 10-325 TAB PO PRN (22:22)
[2020-03-26] MEDS: ZOLPIDEM TARTRATE 10 MG TAB PO PRN (01:51)
[2020-03-26] MEDS: oxyCODONE/ACETAMINOPHEN 10-325 TAB PO PRN ×3 (08:31→20:40)
[2020-03-26] MEDS: LINACLOTIDE 145 MCG CAPSULE PO SCH (08:31)
[2020-03-26] MEDS: SENNA 8.6 MG TAB PO SCH ×2 (08:32→20:26)
[2020-03-26] MEDS: FLUoxetine HCL 20 MG CAP PO SCH (08:32)
[2020-03-26] MEDS: ASCORBIC ACID 500 MG TAB PO SCH ×2 (08:32→20:41)
[2020-03-26] MEDS: MULTIVITAMIN TAB PO SCH (08:32)
[2020-03-26] MEDS: ASPIRIN 81 MG ECTAB PO SCH (08:32)
[2020-03-26] MEDS: DOCUSATE SODIUM 100 MG CAP PO SCH ×2 (08:32→20:25)
[2020-03-26] MEDS: FERROUS SULFATE 325 MG TAB PO SCH (08:32)
[2020-03-26] MEDS: PANTOprazole 40 MG TAB PO SCH ×2 (08:33→20:24)
[2020-03-26] MEDS: POLYETHYLENE (MIRALAX) 17 GM PACK PO SCH ×2 (08:33→20:25)
[2020-03-26] MEDS: TRIAMCINOLONE ACET 0.1% CR 15 GM TUBE TOP SCH ×2 (08:33→20:42)
[2020-03-26] MEDS: cefTRIAXone SODIUM 1,000 MG in DEXTROSE 5% 50 ML IV SCH (10:22)
--- NOTE | 2020-03-26 15:24 | Hospitalist Progress Note ---
Date of Service March 26, 2020 Assessment & Plan (1) Catheter-associated urinary tract infection: Based on symptoms of hematuria, nausea/fatigue and elevated WBC. Switch to IV ceftriaxone based on prior cultures. Awaiting urine cx for determination of abx moving forward Pt states he is comfortable with IV at home if needed as they have done this in the past. (2) Hematuria: No clots, no urinary retention, chronic garrison. (3) Calculus of kidney: Non-obstructing, ureteral stents in place b/l. F/U urology as outpatient. (4) Constipation: Chronic. May require enemas due to lack of nerve innervation. Miralax 17g BID, Senna, BID. (5) Reactive thrombocytosis: Improved since prior. Admission and Anticipated Discharge Date Admission Date: March 25, 2020 Subjective Pt is feeling better today. He states his appetite has returned and he ate well. He states the urine in his catheter is getting mark up designer and nursing reports the clots have resolved. Pt denies fever, SOB, chest pain, abd pain, n/v/c/d, LE pain or swelling. He states these are usual sx with his UTIs. He states that he has done IV abx at home and can do so if they are needed. Review of Systems Review of Systems: Pertinent positives and negatives reviewed in HPI--all others negative Physical Exam Constitutional: WD/WN, vitals as above Eyes: normal visual aldrich by confrontation and + anicteric sclerae Neck: normal visual inspection and trachea midline Respiratory: normal respiratory effort, lungs clear to auscultation Cardiovascular: Rate/Rhythm: regular rate and regular rhythm Gastrointestinal (Abdomen): Inspection/Auscultation: abdomen not distended Percussion/Palpation: abdomen soft; abdomen nontender Musculoskeletal: Head/Neck/Chest: normocephalic and head atraumatic negative for edema, peripheral pulses intact Skin: no rashes, warm and dry Neurologic: awake; not confused Speech / Cognition: normal speech Psychiatric: A+Ox3, euthymic affect Genitourinary: Hematuria noted in garrison bag Results & Data Results & Data ([facility]) Vital Signs (Past 12 Hours) Vital Signs Temp Pulse Resp BP Pulse Ox 03/26/20 15:01 36.6 C 67 18 138/80 95 03/26/20 07:36 36.6 C 85 18 159/90 H 94 PG Care Time/CCT Total # of Minutes Spent Total Time Spent with Patient: Total time spent is greater than 50% in coordination of care (as documented) at patient's floor/unit and/or counseling patient: Coding Level of Care Code 96294 Subseq Hosp Care Lvl 3 Diagnoses Catheter-associated urinary tract infection T83.511A; N39.0 Hematuria R31.0 Hematuria type: gross Calculus of kidney N20.0 Constipation K59.00 Reactive thrombocytosis R79.89 (1) Hematuria Hematuria type: gross Qualified Code(s): R31.0 - Gross hematuria
[2020-03-26] MEDS: ATORVASTATIN 20 MG TAB PO SCH (20:41)
[2020-03-26] MEDS: AMITRIPTYLINE HCL 50 MG TAB PO SCH (20:41)
[2020-03-27] MEDS: ZOLPIDEM TARTRATE 10 MG TAB PO PRN ×2 (00:23→21:30)
[2020-03-27] MEDS: cefTRIAXone SODIUM 1,000 MG in DEXTROSE 5% 50 ML IV SCH (08:23)
[2020-03-27] MEDS: ASPIRIN 81 MG ECTAB PO SCH (08:24)
[2020-03-27] MEDS: FLUoxetine HCL 20 MG CAP PO SCH (08:24)
[2020-03-27] MEDS: TRIAMCINOLONE ACET 0.1% CR 15 GM TUBE TOP SCH ×2 (08:24→20:38)
[2020-03-27] MEDS: FERROUS SULFATE 325 MG TAB PO SCH (08:24)
[2020-03-27] MEDS: PANTOprazole 40 MG TAB PO SCH ×2 (08:24→20:33)
[2020-03-27] MEDS: MULTIVITAMIN TAB PO SCH (08:24)
[2020-03-27] MEDS: DOCUSATE SODIUM 100 MG CAP PO SCH ×2 (08:24→20:33)
[2020-03-27] MEDS: LINACLOTIDE 145 MCG CAPSULE PO SCH (08:24)
[2020-03-27] MEDS: POLYETHYLENE (MIRALAX) 17 GM PACK PO SCH ×2 (08:24→20:33)
[2020-03-27] MEDS: ASCORBIC ACID 500 MG TAB PO SCH ×2 (08:24→20:35)
[2020-03-27] MEDS: SENNA 8.6 MG TAB PO SCH ×2 (08:24→20:34)
[2020-03-27] MEDS: oxyCODONE/ACETAMINOPHEN 10-325 TAB PO PRN ×3 (08:33→21:30)
[2020-03-27] MEDS ORDERED: SOD PHOSPHATE/SOD BIPHOSPHATE ENEMA 132 ML BTL PR PRN (10:28)
--- NOTE | 2020-03-27 10:47 | Electrocardiogram Report ---
Test Reason : Blood Pressure : / mmHG Vent. Rate : 077 BPM Atrial Rate : 077 BPM P-R Int : 148 ms QRS Dur : 110 ms QT Int : 392 ms P-R-T Axes : 058 -33 059 degrees QTc Int : 443 ms Normal sinus rhythm Left atrial enlargement Left axis deviation Incomplete right bundle branch block Abnormal ECG When compared with ECG of 09-JAN-2020 18:27, T wave amplitude has decreased in Inferior leads T wave amplitude has decreased in Anterolateral leads QT has shortened Confirmed by Jaspreet Nixon ([id number]) on 03/27/2020 10:47:22 AM Referred By: REFERRED SELF Confirmed By:Jaspreet Nixon
[2020-03-27] MEDS ORDERED: SOD PHOSPHATE/SOD BIPHOSPHATE ENEMA 132 ML BTL PR SCH (11:00)
--- NOTE | 2020-03-27 15:44 | Hospitalist Progress Note ---
Date of Service March 27, 2020 Assessment & Plan (1) Catheter-associated urinary tract infection: Based on symptoms of hematuria, nausea/fatigue and elevated WBC. Switch to IV ceftriaxone based on prior cultures. Awaiting urine cx for determination of abx moving forward, resulted with gram neg and strep >100K, sensitivities pending Pt states he is comfortable with IV at home if needed as they have done this in the past, however states this has not been a plan with prior UTIs. (2) Hematuria: No clots, no urinary retention, chronic garrison. Continue aspirin for now but may need to be discontinued if gross hematuria does not improve. (3) Calculus of kidney: Non-obstructing, ureteral stents in place b/l. F/U urology as outpatient. (4) Constipation: Chronic. May require enemas due to lack of nerve innervation. Miralax 17g BID, Senna, BID, Linzess 145 mcg p.o. every morning (5) Reactive thrombocytosis: Improved since prior. Admission and Anticipated Discharge Date Admission Date: March 25, 2020 Subjective Pt states his appetite continues to improve. He states the urine in his catheter is getting delivery helper. Pt denies fever, SOB, chest pain, abd pain, n/v, LE pain or swelling. Pt states no bowel movement in 3 days. He generally takes an enema when this happens. Review of Systems Review of Systems: Pertinent positives and negatives reviewed in HPI--all others negative Physical Exam Constitutional: WD/WN, vitals as above Eyes: normal visual aldrich by confrontation and + anicteric sclerae Neck: normal visual inspection and trachea midline Respiratory: normal respiratory effort, lungs clear to auscultation Cardiovascular: Rate/Rhythm: regular rate and regular rhythm Gastrointestinal (Abdomen): Inspection/Auscultation: abdomen not distended Percussion/Palpation: abdomen soft; abdomen nontender Musculoskeletal: Head/Neck/Chest: normocephalic and head atraumatic Skin: no rashes, warm and dry Neurologic: awake; not confused Speech / Cognition: normal speech Psychiatric: A+Ox3, euthymic affect Results & Data Results & Data ([facility]) Vital Signs (Past 12 Hours) Vital Signs Temp Pulse Resp BP BP Pulse Ox 03/27/20 14:43 36.9 C 80 18 122/78 94 03/27/20 11:03 130/90 03/27/20 07:09 36.6 C 81 18 172/108 H 172/115 H 98 PG Care Time/CCT Total # of Minutes Spent Total Time Spent with Patient: Total time spent is greater than 50% in coordinat ion of care (as documented) at patient's floor/unit and/or counseling patient: Coding Level of Care Code 63849 Subseq Hosp Care Lvl 3 Diagnoses Catheter-associated urinary tract infection T83.511A; N39.0 Hematuria R31.0 Hematuria type: gross Calculus of kidney N20.0 Constipation K59.00 Reactive thrombocytosis R79.89 (1) Hematuria Hematuria type: gross Qualified Code(s): R31.0 - Gross hematuria
[2020-03-27] MEDS: AMITRIPTYLINE HCL 50 MG TAB PO SCH (20:34)
[2020-03-27] MEDS: ATORVASTATIN 20 MG TAB PO SCH (20:36)
[2020-03-28] MEDS: TRIAMCINOLONE ACET 0.1% CR 15 GM TUBE TOP SCH ×2 (07:31→21:02)
[2020-03-28] MEDS: ASCORBIC ACID 500 MG TAB PO SCH ×2 (07:31→21:04)
[2020-03-28] MEDS: POLYETHYLENE (MIRALAX) 17 GM PACK PO SCH ×2 (07:31→21:01)
[2020-03-28] MEDS: PANTOprazole 40 MG TAB PO SCH ×2 (07:32→21:03)
[2020-03-28] MEDS: DOCUSATE SODIUM 100 MG CAP PO SCH ×2 (07:32→21:02)
[2020-03-28] MEDS: FERROUS SULFATE 325 MG TAB PO SCH (07:32)
[2020-03-28] MEDS: FLUoxetine HCL 20 MG CAP PO SCH (07:32)
[2020-03-28] MEDS: SENNA 8.6 MG TAB PO SCH ×2 (07:32→21:03)
[2020-03-28] MEDS: ASPIRIN 81 MG ECTAB PO SCH (07:32)
[2020-03-28] MEDS: LINACLOTIDE 145 MCG CAPSULE PO SCH (07:32)
[2020-03-28] MEDS: oxyCODONE/ACETAMINOPHEN 10-325 TAB PO PRN ×3 (07:32→21:01)
[2020-03-28] MEDS: MULTIVITAMIN TAB PO SCH (07:32)
[2020-03-28] MEDS: cefTRIAXone SODIUM 1,000 MG in DEXTROSE 5% 50 ML IV SCH (07:33)
--- NOTE | 2020-03-28 09:34 | Hospitalist Progress Note ---
Date of Service March 28, 2020 Assessment & Plan (1) Catheter-associated urinary tract infection: Based on symptoms of hematuria, nausea/fatigue and elevated WBC. Switch to IV ceftriaxone based on prior cultures. Urine cx Pseudomonas and strep >100K, Pseudomonas intermediate to Ceftazadime and Gent Patient will be changed to Cipro and Macrobid hopefully to avoid IV antibiotics. Given his history of retained urinary stone if hematuria does not clear up will have urology weigh in to determine course and duration of treatment and if patient will need interventional stenting (2) Hematuria: No clots, no urinary retention, chronic garrison. Persistent gross hematuria in the face of undertreated urinary tract infection will see if it clears up with appropriate antibiotics for 24 to 36 hours (3) Calculus of kidney: Non-obstructing, ureteral stents in place b/l. F/U urology as outpatient. (4) Constipation: Chronic. May require enemas due to lack of nerve innervation. Miralax 17g BID, Senna, BID, Linzess 145 mcg p.o. every morning (5) Reactive thrombocytosis: Improved since prior. Admission and Anticipated Discharge Date Admission Date: March 25, 2020 Subjective Patient is in no significant distress fairly dark hematuria in his Garrison bag. Patient has a chronic Garrison catheter due to his paraplegia. Patient is well- known to Dr. Cruz and urology. He is known to have renal stones and previously has had stents in the past. Patient also has persistent problems with constipation since his paraplegia and requires fleets enemas to move his bowels Review of Systems Review of Systems: Mild distress and fatigue no headache, blurry or double vision no speech or swallowing issues no chest pain, pressure or palpitations no shortness of breath, cough or wheezes Persistent right flank abdominal pain, without nausea or vomiting, persistent constipation Gross hematuria no focal joint pain or swelling no radicular back pain, does have right-sided CVA tenderness no bruising, bleeding or rashes no focal signs of weakness or numbness or altered sensation no complaints of anxiety or depression.. Physical Exam Physical Exam: The patient appeared well nourished and normally developed. He is chronically limited with his paraplegia Vital signs as documented. Head exam is normocephalic atraumatic no scleral icterus Neck is without JVD, thyromegaly, or carotid bruits. Lungs are clear to auscultation, no focal loss of breath sounds Cardiac exam, Rhythm is regular.. No murmurs, rubs or gallops. Abdominal exam reveals normal bowel sounds, soft appears to be tender in the right upper quadrant Extremities are nonedematous and both pedal pulses are present Neurologic exam is alert and oriented, lower extremity paralysis and altered sensation Skin is without bruises or rashes Psychologically is without concerns for anxiety or depression. Results & Data Results & Data ([facility]) Vital Signs (Past 12 Hours) Vital Signs Temp Pulse Resp BP BP Pulse Ox 03/28/20 07:14 97.5 F L 81 20 157/98 H 95 03/27/20 23:06 97.5 F L 85 18 124/75 94 PG Care Time/CCT Total # of Minutes Spent Total Time Spent with Patient: Total time spent is greater than 50% in co ordination of care (as documented) at patient's floor/unit and/or counseling patient: Coding Level of Care Code 41854 Subseq Hosp Care Lvl 3 Diagnoses Catheter-associated urinary tract infection T83.511A; N39.0 Hematuria R31.0 Hematuria type: gross Calculus of kidney N20.0 Constipation K59.00 Reactive thrombocytosis R79.89 (1) Hematuria Hematuria type: gross Qualified Code(s): R31.0 - Gross hematuria
[2020-03-28] MEDS ORDERED: CIPROFLOXACIN 500 MG TAB PO ONE (13:00)
[2020-03-28] MEDS ORDERED: NITROFURANTOIN MONOHYDRATE 100 MG CAP PO ONE (13:00)
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
[2020-03-28] MEDS: ACETAMINOPHEN 325 MG TAB PO PRN ×2 (19:26→23:56)
[2020-03-28] MEDS: CIPROFLOXACIN 500 MG TAB PO SCH (21:02)
[2020-03-28] MEDS: AMITRIPTYLINE HCL 50 MG TAB PO SCH (21:02)
[2020-03-28] MEDS: ATORVASTATIN 20 MG TAB PO SCH (21:03)
[2020-03-28] MEDS: NITROFURANTOIN MONOHYDRATE 100 MG CAP PO SCH (21:03)
[2020-03-28] MEDS: ZOLPIDEM TARTRATE 10 MG TAB PO PRN (23:57)
[2020-03-29] MEDS: PANTOprazole 40 MG TAB PO SCH ×2 (07:41→20:21)
[2020-03-29] MEDS: MULTIVITAMIN TAB PO SCH (07:42)
[2020-03-29] MEDS: LINACLOTIDE 145 MCG CAPSULE PO SCH (07:42)
[2020-03-29] MEDS: FERROUS SULFATE 325 MG TAB PO SCH (07:42)
[2020-03-29] MEDS: ASCORBIC ACID 500 MG TAB PO SCH ×2 (07:42→20:22)
[2020-03-29] MEDS: SENNA 8.6 MG TAB PO SCH ×2 (07:42→20:21)
[2020-03-29] MEDS: FLUoxetine HCL 20 MG CAP PO SCH (07:42)
[2020-03-29] MEDS: ASPIRIN 81 MG ECTAB PO SCH (07:42)
[2020-03-29] MEDS: CIPROFLOXACIN 500 MG TAB PO SCH ×2 (07:43→20:20)
[2020-03-29] MEDS: NITROFURANTOIN MONOHYDRATE 100 MG CAP PO SCH ×2 (07:43→20:21)
[2020-03-29] MEDS: POLYETHYLENE (MIRALAX) 17 GM PACK PO SCH ×2 (07:43→20:23)
[2020-03-29] MEDS: DOCUSATE SODIUM 100 MG CAP PO SCH ×2 (07:43→20:23)
[2020-03-29] MEDS: TRIAMCINOLONE ACET 0.1% CR 15 GM TUBE TOP SCH ×2 (07:43→20:20)
[2020-03-29] MEDS: oxyCODONE/ACETAMINOPHEN 10-325 TAB PO PRN ×3 (07:58→20:19)
[2020-03-29] MEDS ORDERED: hydrALAZINE HCL 20 MG/ML VIAL IV PRN (08:09)
--- NOTE | 2020-03-29 08:10 | Hospitalist Progress Note ---
Date of Service March 29, 2020 Assessment & Plan (1) Catheter-associated urinary tract infection: Based on symptoms of hematuria, nausea/fatigue and elevated WBC. Urine cx Pseudomonas and strep >100K, Pseudomonas intermediate to Ceftazadime and Gent Patient will be changed to Cipro and Macrobid hopefully to avoid IV antibiotics. Given his history of retained urinary stone and ureteral stents will treat 2 weeks at the minimum (2) Hematuria: No clots, no urinary retention, chronic garrison. Persistent hematuria in the face of undertreated urinary tract infection will see if it clears up with appropriate antibiotics for 24 to 36 hours, no signs of active bleeding on cystoscopy for stent exchange (3) Calculus of kidney: Non-obstructing, ureteral stents in place b/l. F/U urology as outpatient. (4) Constipation: Chronic. fleet enemas have helped in the past Miralax 17g BID, Senna, BID, Linzess 145 mcg p.o. every morning (5) Reactive thrombocytosis: Improved since prior. (6) Memory loss: Pt has had significant memory loss according to and she is concerned with his medical decision making, did have cognitive testing 03/23/20 and score well but neurology recommended mri, feels acute hospital stay has had a worsening affect on pts memory loss, pending mri brain at this time Admission and Anticipated Discharge Date Admission Date: March 25, 2020 Subjective This pt has no complaints and underwent successful b/l ureteral stent exchange 03/29, no areas of obvious active bleeding, He continues on ciprofloxacin and nitrofurantoin to treat Pseudomonas/Enterococcus in his urine Review of Systems Review of Systems: Mild distress and fatigue no headache, blurry or double vision no speech or swallowing issues no chest pain, pressure or palpitations no shortness of breath, cough or wheezes Persistent right flank abdominal pain, without nausea or vomiting, persistent constipation Gross hematuria no focal joint pain or swelling no radicular back pain, does have right-sided CVA tenderness no bruising, bleeding or rashes no focal signs of weakness or numbness or altered sensation no complaints of anxiety or depression.. Physical Exam Physical Exam: The patient appeared well nourished and normally developed. He is chronically limited with his paraplegia Vital signs as documented. Head exam is normocephalic atraumatic no scleral icterus Neck is without JVD, thyromegaly, or carotid bruits. Lungs are clear to auscultation, no focal loss of breath sounds Cardiac exam, Rhythm is regular.. No murmurs, rubs or gallops. Abdominal exam reveals normal bowel sounds, soft appears to be tender in the right upper quadrant Extremities are nonedematous and both pedal pulses are present Neurologic exam is alert and oriented, lower extremity paralysis and altered sensation Skin is without bruises or rashes Psychologically is without concerns for anxiety or depression. Results & Data Results & Data ([facility]) Vital Signs (Past 12 Hours) Vital Signs Temp Pulse Resp BP Pulse Ox 03/29/20 07:45 97.5 F L 80 18 178/108 H 92 03/28/20 23:02 98.4 F 81 17 148/81 H 94 PG Care Time/CCT Total # of Minutes Spent Total Time Spent with Patient: Total time spent is greater than 50% in coordination of care (as documented) at patient's floor/unit and/or counseling patient: Coding Level of Care Code 01531 Subseq Hosp Care Lvl 2 Diagnoses Catheter-associated urinary tract infection T83.511A; N39.0 Hematuria R31.0 Hematuria type: gross Calculus of kidney N20.0 Constipation K59.00 Reactive thrombocytosis R79.89 Memory loss R41.3 (1) Hematuria Hematuria type: gross Qualified Code(s): R31.0 - Gross hematuria
[2020-03-29] MEDS ORDERED: fentaNYL citrate 100 MCG/2 ML VIAL ONE (09:27)
[2020-03-29] MEDS ORDERED: MIDAZOLAM HCL 1 MG/ML 2ML VIAL ONE (09:27)
[2020-03-29] MEDS ORDERED: PHENYLEPHRINE 100MCG/ML 5ML SYR ONE (09:27)
[2020-03-29] MEDS ORDERED: LIDOCAINE HCL 2% 2 ML VIAL/AMP(20MG/ML) INFIL ONE (09:27)
[2020-03-29] MEDS ORDERED: PROPOFOL IV EMULSION 10 MG/ML 20 ML VIAL IV ONE ×2 (09:27→10:21)
[2020-03-29] MEDS ORDERED: ePHEDrine sulfate 50 MG/ML SYR ONE (09:27)
--- NOTE | 2020-03-29 09:35 | Urology Progress Note ---
Date of Service March 29, 2020 Assessment & Plan (1) Hydroureteronephrosis: Bilateral hydronephrosis with urinary retention Due for stent exchange We will conduct the stent exchange todayafebrile, hemodynamically stable Has been on oral antibiotics which we will continue Admission and Anticipated Discharge Date Admission Date: March 25, 2020 Subjective 59-year-old gentleman with chronic urinary retention believed to primarily be due to to bowel dysfunction Has been living with bilateral ureteral stents in November and is due for a change He was admitted with hematuria and a complex UTI He is on ciprofloxacin and nitrofurantoin to treat Pseudomonas/Enterococcus in his urine Physical Exam Constitutional: well developed and well nourished Neck: neck nontender Respiratory: normal respiratory effort; no respiratory distress and does not use accessory muscles Cardiovascular: Rate/Rhythm: regular rate Vessels: radial pulses present Extremities: no edema Gastrointestinal (Abdomen): Inspection/Auscultation: abdomen normal to inspection Percussion/Palpation: abdomen soft; abdomen nontender and no guarding Musculoskeletal: Head/Neck/Chest: normocephalic and head atraumatic Extremities: extremities normal to inspection Skin: no rashes and no lesions Trauma: no evidence of skin trauma Neurologic: awake; not obtunded Speech / Cognition: normal speech Motor/Sensory: no tremor Psychiatric: Orientation: alert and oriented x 3 Genitourinary: no CVA tenderness Lymphatic: no lymphadenopathy Results & Data ([facility]) Vital Signs (Past 12 Hours) Vital Signs Temp Pulse Resp BP Pulse Ox 03/29/20 09:18 115/78 03/29/20 07:45 36.4 C L 80 18 178/108 H 92 03/28/20 23:02 36.9 C 81 17 148/81 H 94 PG Care Time/CCT Total # of Minutes Spent Total Time Spent with Patient: Total time spent is greater than 50% in coordination of care (as documented) at patient's floor/unit and/or counseling patient: Coding Level of Care Code 49548 Subseq Hosp Care Lvl 2 Diagnoses Hydroureteronephrosis N13.30
[2020-03-29] MEDS ORDERED: HYDROmorphone INJ 1 MG/ML SYRINGE IV PRN (09:43)
[2020-03-29] MEDS ORDERED: ONDANSETRON INJ 2 MG/ML 2 ML VIAL IV PRN (09:43)
[2020-03-29] MEDS ORDERED: fentaNYL citrate 100 MCG/2 ML VIAL IV PRN (09:43)
[2020-03-29] MEDS ORDERED: ePHEDrine sulfate 50 MG/ML AMP IV PRN (09:43)
[2020-03-29] MEDS ORDERED: ATROPINE SULFATE 0.1 MG/ML 10ML SYR IV PRN (09:43)
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
[2020-03-29] MEDS ORDERED: ONDANSETRON INJ 2 MG/ML 2 ML VIAL ONE (10:21)
[2020-03-29] MEDS ORDERED: DIATRIZOATE MEGLUMINE 30% 100ML VIAL INSTIL ONE (10:27)
--- NOTE | 2020-03-29 10:53 | Operative Report ---
PG Post Operative Report Pre & Post Diagnosis Operation Date: 03/29/20 07:00 Pre-Op Diagnosis: Bilateral Hydronephrosis Post-Op Diagnosis: Bilateral Hydronephrosis I identified the patient and participated in the time-out.: Yes Procedure Operation Date: 03/29/20 07:00 Actual Procedures p Cystoscopy with Bilateral Stent Exchange(Bilateral) - Rigoberto Mirza MD Surgeon Martin Mirza MD [facility] none Estimated Blood Loss 0 Findings Consistent with Post-Op Diagnosis Specimens none Description of Procedure The patient was identified in the preoperative holding area, appropriate informed consents were reviewed and completed and the patient was transferred to the operative suite. Upon arrival, appropriate antibiotics and anesthesia were administered and the patient was placed in dorsal lithotomy position and prepped and draped in sterile fashion. Of note, the patient has limited mobility and is in somewhat contracted position which significantly complicated advancement of the scope through the urethra. There were no strictures or other structural abnormalities of the urethra, however the simple positioning of his body made it very challenging to advance the scope into the bladder. Once I successfully achieved this, inspection revealed some old blood within the bladder, I was able to irrigate this out. There were no active bleeding lesions, there also did not appear to be any significant catheter cystitis. He had bilateral ureteral stents which had a significant portion of the stent protruding into the bladder from both sides. Both of these were encrusted with stone and debris. There was mucopurulent discharge from each ureter around the stents. I initially grasped the distal aspect of the right stent and withdrew it to the meatus. I attempted to intubate it with a wire, however the stent lumen was entirely obliterated/encrusted and despite numerous efforts I was unable to advance a wire through the stent. I navigated the scope carefully back into the bladder and attempted to intubate the ureter alongside the stent. I was able to advance a wire into the distal portion of the stent and then remove the stent. I was not able to advance this wire to the kidney with the stent in place. In the mid/proximal ureter there was tortuosity and resistance. I was able to adv ance a wire to the presumed level of the kidney and attempted to advance a stent to the kidney but was unable to bypass this tight area. I withdrew the stent and attempted to perform a retrograde pyelogram, however my's wire slipped below the restricted area. It took numerous efforts including use of a Glidewire. Despite this, I was unable to get a wire back into the kidney. I ultimately used a combination of dilute contrast, surgical lubricant and sterile water to perform a retrograde pyelogram with more viscous material, this opacified the proximal ureter but also open to the narrowed area. I believe there may have been a stone impacted in this area in addition to simple tortuosity. I was subsequently able to advance a sensor wire into the kidney. I confirmed this positioning by opacifying the collecting system of the right upper tract for positioning a 6 [place] by 26 cm double-J stent within the kidney. Then turned my attention of the left ureter. I withdrew the stent but it also was encrusted and I was unable to advance a wire through it. Instead I was able to intubate the left distal ureter. Again I could not advance the wire with the stent in place, I therefore withdrew the stent and ultimately advanced the wire to the kidney. This side did not have significant obstruction along the course of the ureter that I could palpate and I was able to relatively easily position the wire in the kidney and confirmed this with a retrograde pyelogram. I then placed a 6 [place] by 26 cm double-J stent seeing a good curl just above the UPJ. I subsequently concluded the case by withdrawing my scope and placing an 18 [place] coud catheter. He was reversed of anesthesia and taken to the recovery room in stable condition. There were no complications. I attest to the content of the Intraoperative Record and any orders documented therein. Any exceptions are noted below.
--- NOTE | 2020-03-29 11:02 | Fluoroscopy Report ---
FL retrograde includes kub CLINICAL HISTORY: B/L STENT EXCHANGE COMPARISON STUDY: 12/24/2019 FLUOROSCOPY TIME: 156 seconds. NUMBER OF FLUOROSCOPIC IMAGES: 5 FINDINGS: 5 fluoroscopic spot films were obtained during bilateral nephroureteral stent exchange. There is bila teral proximal ureteral irregularity. There is moderate right-sided hydronephrosis. IMPRESSION: 1. Bilateral proximal ureteral irregularity 2. Right-sided hydronephrosis 3. Fluoroscopic spot images obtained during bilateral nephroureteral stent exchange ACT 112: Negative or not required by law. Electronically signed by: Maxime Soriano M.D. 03/29/2020 11:01 AM
--- NOTE | 2020-03-29 14:26 | Anesthesiology Progress Note ---
Date of Service March 29, 2020 Anesthesia Post Procedure Vital Signs Vital Signs: Temp Pulse Pulse Pulse Resp BP BP 03/29/20 11:30 36.3 C L 67 173/98 H 03/29/20 11:20 63 14 164/95 H 03/29/20 11:10 36.2 C L 67 16 154/104 H 03/29/20 11:00 71 22 143/97 H 03/29/20 10:54 36.2 C L 75 14 153/101 H 03/29/20 09:35 36.2 C L 80 18 122/81 03/29/20 09:18 115/78 03/29/20 07:45 36.4 C L 80 18 178/108 H 03/28/20 23:02 36.9 C 81 17 148/81 H 03/28/20 19:19 37.3 C 81 17 130/73 03/28/20 14:52 36.6 C 71 20 148/84 H Pulse Ox 03/29/20 11:30 97 03/29/20 11:20 97 03/29/20 11:10 98 03/29/20 11:00 100 03/29/20 10:54 98 03/29/20 09:35 96 03/29/20 09:18 03/29/20 07:45 92 03/28/20 23:02 94 03/28/20 19:19 94 03/28/20 14:52 90 Pain Intensity Back: Pain Intensity: 4 Right Wrist: Pain Intensity: 6 Right Flank: Pain Intensity: 3 Neck: Pain Intensity: 3 Transfer of Care Handoff Completed per policy Notes Mental Status: alert / awake / arousable and participated in evaluation Patient Amnestic to Procedure: Yes Nausea / Vomiting: adequately controlled Pain: adequately controlled Airway Patency, RR, SpO2: stable & adequate BP & HR: stable & adequate Hydration State: stable & adequate Anesthetic Complications: no major complications apparent and Pt Satisfied with anesthetic care
--- NOTE | 2020-03-29 17:14 | Magnetic Resonance Report ---
MR brain wo con HISTORY: 59 years-old Male memory changes, patient presents with acute memory loss COMPARISON: Brain MRI 09/07/2015 TECHNIQUE: Multiplanar multisequence MRI of the brain was obtained without the use of IV contrast. FINDINGS: The maintenance foreman localizer images demonstrate no gross extracranial abnormality. There is no restricted diff usion to suggest acute or subacute infarct. No pathologic blooming artifact on the T2 star series. Th ere is no acute intracranial hemorrhage, midline shift, abnormal extra-axial, hydrocephalus or intrac ranial mass. Age-related involutional changes with moderate T2/FLAIR hyperintensities throughout the white matter, progressed from comparison. The cerebral venous sinuses and major arterial flow voids at the level the skull base appear patent. Mastoid air cells are clear. Leftward bowing and spurring the nasal septum. Paranasal sinuses are dung ar. The skull, orbits and soft tissues are unremarkable. IMPRESSION: 1. No acute intracranial abnormality. 2. Age-related involutional changes with moderate T2/FLAIR hyperintensities throughout the white troy er suggestive of probable chronic microvascular ischemic disease. These findings have progressively w orsened from the 2016 comparison. ACT 112: Negative or not required by law. The above report was generated using voice recognition software. It may contain grammatical, syntax o r spelling errors. Electronically signed by: Trey Garcia M.D. 03/29/2020 5:13 PM
[2020-03-29] MEDS: AMITRIPTYLINE HCL 50 MG TAB PO SCH (20:20)
[2020-03-29] MEDS: ATORVASTATIN 20 MG TAB PO SCH (20:20)
[2020-03-30] MEDS: ZOLPIDEM TARTRATE 10 MG TAB PO PRN
[2020-03-30] MEDS: oxyCODONE/ACETAMINOPHEN 10-325 TAB PO PRN ×2 (06:10→12:17)
[2020-03-30 07:02] LABS: Hemoglobin 11.4 g/dL (14.0-18.0); Mean Corpuscular Hemoglobin 29.2 pg (25-34); Mean Corpuscular Hgb Conc 32.6 g/dL (32-36); Mean Corpuscular Volume 89.7 fL (80-100); Mean Platelet Volume 9.4 fL (7.4-10.4); Platelet Count 539 K/uL (130-400); RDW Coefficient of Variation 17.4 % (11.5-14.5); RDW Standard Deviation 56.8 fL (36.4-46.3); White Blood Count 17.51 K/uL (4.8-10.8)
[2020-03-30 07:34] LABS: BUN Creatinine Ratio 22.6 (10-20); Calcium 8.6 mg/dl (8.5-10.1); Creatinine Clr Calc Pharmacy 130.4 ml/min; Est GFR (African American) 126.7; Est GFR (Non-African American) 109.3; Potassium 3.7 mmol/L (3.5-5.1)
[2020-03-30] MEDS: SENNA 8.6 MG TAB PO SCH (08:12)
[2020-03-30] MEDS: ASCORBIC ACID 500 MG TAB PO SCH (08:12)
[2020-03-30] MEDS: ASPIRIN 81 MG ECTAB PO SCH (08:13)
[2020-03-30] MEDS: LINACLOTIDE 145 MCG CAPSULE PO SCH (08:13)
[2020-03-30] MEDS: FERROUS SULFATE 325 MG TAB PO SCH (08:13)
[2020-03-30] MEDS: CIPROFLOXACIN 500 MG TAB PO SCH (08:13)
[2020-03-30] MEDS: PANTOprazole 40 MG TAB PO SCH (08:13)
[2020-03-30] MEDS: NITROFURANTOIN MONOHYDRATE 100 MG CAP PO SCH (08:13)
[2020-03-30] MEDS: MULTIVITAMIN TAB PO SCH (08:13)
[2020-03-30] MEDS: TRIAMCINOLONE ACET 0.1% CR 15 GM TUBE TOP SCH (08:14)
[2020-03-30] MEDS: FLUoxetine HCL 20 MG CAP PO SCH (08:14)
[2020-03-30] MEDS: POLYETHYLENE (MIRALAX) 17 GM PACK PO SCH (08:17)
[2020-03-30] MEDS: DOCUSATE SODIUM 100 MG CAP PO SCH (08:17)
--- NOTE | 2020-03-30 11:18 | Urology Progress Note ---
Date of Service March 30, 2020 Assessment & Plan (1) Hydroureteronephrosis: 59 yo M POD #1 s/p cystoscopy and bilateral stent exchange. - Doing well, feels ready for discharge - Afebrile, hemodynamically stable - Continue PO antibiotics upon discharge for Enterococcus/Pseudomonas UTI - Continue Camp catheter - Expected clinical course reviewed, all questions answered - Plan on bilateral stent exchange in approximately 3 months - Will arrange appropriate follow-up with our service outpatient Admission and Anticipated Discharge Date Admission Date: March 25, 2020 Subjective 59 yo M POD #1 s/p cystoscopy and bilateral stent exchange with Dr. Mirza. Awake, alert and sitting up in bed. Pt reports he is doing great today. Offers no complaints, denies pain. Camp catheter intact, no urine to assess at time of exam due to leg bag recently changed/emptied. Per patient report, urine has been clear. Nursing reports clear mony urine. Tolerating diet, no nausea or vomiting. No fever or chills. Feels ready for discharge today. No additional concerns at this time. Chart review: creatinine 0.62, WBC 17.51, Hgb 11.4. On PO Cipro and Macrobid. Review of Systems Constitutional: as per Subjective / HPI Gastrointestinal: as per Subjective / HPI Genitourinary: + as per Subjective / HPI Physical Exam Constitutional: no acute distress and not ill appearing Eyes: no scleral abnormality Respiratory: normal respiratory effort and able to speak in complete sentences; no respiratory distress and no labored breathing Cardiovascular: Extremities: no pedal edema Gastrointestinal (Abdomen): Inspection/Auscultation: abdomen normal to inspection; abdomen not distended Percussion/Palpation: abdomen soft; abdomen nontender and no guarding Musculoskeletal: Head/Neck/Chest: normocephalic and head atraumatic Neurologic: moves all extremities and awake Psychiatric: A+Ox3, euthymic affect Genitourinary: no CVA tenderness Results & Data ([facility]) Vital Signs (Past 12 Hours) Vital Signs Temp Pulse Resp BP Pulse Ox 03/30/20 07:32 37.1 C 88 18 133/88 92 03/30/20 03:17 36.4 C L 89 20 142/84 H 94 03/29/20 23:44 36.7 C 90 17 129/82 95 PG Care Time/CCT Total # of Minutes Spent Total Time Spent with Patient: Total time spent is greater than 50% in coordination of care (as documented) at patient's floor/unit and/or counseling patient: Coding Level of Care Code 73187 Subseq Hosp Care Lv 2 Diagnoses Hydroureteronephrosis N13.30
--- NOTE | 2020-03-30 16:32 | Discharge Summary ---
Date of Service March 30, 2020 Admission HPI Per Admitting Provider 59-year-old male well-known to the service with paraplegia and chronic indwelling Garrison catheter, bilateral ureteral stents, prior UTI sepsis with shock, fecal impaction who presents to the ER with hematuria for 1 week with reduced appetite, nausea and poor oral intake for the last 2 days. He denies any vomiting. Last had a bowel movement yesterday which was hard. He reports using laxatives regularly therefore has needed to do less enemas recently. He reports similar symptoms to urine infections in the past although denies any fevers or chills. He had an outpatient CT organized by his urologist showing mi ld wall thickening of the rectosigmoid colon, significantly dilated rectosigmoid fecal impaction and urothelial thickening involving the renal pelvis bilaterally along the course of both ureters with surrounding inflammation. In the ER blood and urine cultures were taken. He received 1 dose of cefepime. He was referred to medicine for admission and ongoing management of hematuria, sepsis - although notably patient is not septic appearing and close to his baseline he does have an elevated white blood count he and initial heart rate 100 therefore meets SIRS criteria. Principal Diagnosis garrison catheter associated urinary infection with hematuria chronic ureteral stent exchange bilaterally 03/30/20 chronic paraplegia Discharge Exam The patient appeared chronically ill but coping fairly well Vital signs as documented. Lungs are clear to auscultation at the bases Cardiac exam, Rhythm is regular.. No murmurs, rubs or gallops. Abdominal exam reveals normal bowel sounds, soft non tender, no masses Extremities are atrophic with peripheral pulses Neurologic exam is alert and oriented, for memory loss he seems to have some delay in his responses but no significant memory loss seen on exam he is paraplegic from with his lower extremities Skin is without bruises or rashes Psychologically is without concerns for anxiety or depression. Discharge Data Allergies Allergy/AdvReac Type Severity Reaction Status Date / Time ibuprofen AdvReac Intermediate GI Bleed Verified 03/23/20 13:40 caffeine AdvReac Unknown Gastrointestinal Verified 03/23/20 13:40 Upset Consultations 03/25/20 17:01 ED Decision to Admit Stat Procedures Performed Operation Date: 03/29/20 07:00 Actual Procedures p Bilateral Ureteral Stent Exchange(Bilateral) - Rigoberto Mirza MD s Cystoscopy, Bilateral Retrograde Pyelogram(Bilateral) - Edison Mcintosh, Ordered Studies 03/29/20 09:30 FL retrograde includes kub Routine 03/29/20 12:25 MR brain wo con Routine Hospital Course (1) Catheter-associated urinary tract infection: Based on symptoms of hematuria, nausea/fatigue and elevated WBC. Urine cx Pseudomonas and strep >100K, Pseudomonas intermediate to Ceftazadime and Gent Patient will be changed to Cipro and Macrobid. Given his history of retained urinary stone and ureteral stents will treat 2 weeks at the minimum recommend change catheter at completion of antibiotics (2) Hematuria: chronic garrison, hematuria with treatment of urinary tract infection cystoscopy for stent exchange 03/29 without active site of bleeding (3) Calculus of kidney: Non-obstructing, ureteral stents in place b/l. changed 03/29/20 F/U urology as outpatient. (4) Constipation: Chronic. fleet enemas have helped in the past Miralax 17g BID, Senna, BID, Linzess 145 mcg p.o. every morning (5) Reactive thrombocytosis: Improved since prior. (6) Memory loss: Pt has had significant memory loss according to and she is concerned with his medical decision making, did have cognitive testing 03/23/20 and score well but neurology recommended mri, MRI brain 03/29/2020 IMPRESSION: 1. No acute intracranial abnormality. 2. Age-related involutional changes with moderate T2/FLAIR hyperintensities throughout the white matter suggestive of probable chronic microvascular ischemic disease. These findings have progressively worsened from the 2016 comparison Patient was informed of these findings Total Time Total Time Spent Total Time Spent (In Minutes): It required greater than 30 minutes to prepare this patient for discharge Discharge Plan Discharge Items Patient Disposition: Home - Self-Care Reason For Visit: SEPSIS, CATHETER ASSOCIATED UTI Discharge Diagnosis: catheter associated uti poa, hematuria-> resolved change of ureteral stents b/l Activity: Per Instructions section Non-emergency contact: Primary Care Provider and Urologist Call non-emergency contact if: you have any medication questions and your symptoms worsen Follow-up/Referrals: Rigoberto Mirza MD [Physician] - 05/12/20 4:00 pm (You have an appt at the Urology off on 05/12 at 4pm. It is important that you keep this appt, if this date and time does not fit your schedule, please call [phone] to reschedule. ) Zenaida Flanagan PA-C [Primary Care Provider] - 04/07/20 12:50 pm (You have an appt to see someone that works with your PCP. This appt is 04/07 @ 1250pm. Please note this appt is at the [facility] office, with Dr. Gibson. Please arrive 15 minutes prior to your appt. If for any reason this appt does not fit into your schedule, please call [phone] to reschedule. ) Diet: Regular Addtl Attending Provider Instructions: please complete your antibiotics, after you are done resume your methanamine, and also change your antibiotics please follow up with family doctor in one week and continue to follow with urology Pending Studies at Discharge: No Stand-Alone Forms: My [employer], Smoking Cessation Medications and DC Order Prescriptions: New ciprofloxacin HCl 500 mg Tablet 500 mg PO BID Qty: 24 RF: 0 nitrofurantoin monohyd/m-cryst 100 mg Capsule 100 mg PO BID Qty: 24 RF: 0 Continued docusate sodium [Stool Softener] 250 mg capsule 250 mg PO BID RF: 0 ascorbic acid (vitamin C) 500 mg capsule 500 mg PO BID RF: 0 zolpidem 10 mg tablet 10 mg PO HS PRN (Reason: Sleep) RF: 0 multivitamin Tablet 1 tab PO QAM RF: 0 atorvastatin 20 mg Tablet 20 mg PO HS RF: 0 omeprazole 40 mg Capsule,Delayed Release(Dr/Ec) 40 mg PO BID RF: 0 oxycodone-acetaminophen 10-325 mg Tablet 1 tab PO Q6H PRN (Reason: Pain) RF: 0 ferrous sulfate [iron] 325 mg (65 mg iron) Tablet 325 mg PO QAM RF: 0 Linzess 145 mcg Capsule 145 mcg PO QAM RF: 0 triamcinolone acetonide 0.1 % cream 1 applic TOPICAL BID RF: 0 fluoxetine 60 mg tablet 60 mg PO QAM RF: 0 sennosides [Senokot] 8.6 mg Tablet 25.8 mg PO AMPM RF: 0 aspirin 81 mg Tablet,Delayed Release (Dr/Ec) 81 mg PO QAM RF: 0 amitriptyline 50 mg Tablet 50 mg PO HS RF: 0 methenamine hippurate 1 gram tablet 1 g PO Q12H Qty: 60 RF: 6 Discharge Orders: Discharge Order (Routine); Ordered 03/30/20 Ordered By: Kaiden Hurtado Admission Data Admit Date/Time: 03/25/20 17:03 Attending Provider: Kaiden Hurtado Admit Provider: Randell Trevino Primary Care Provider: Zenaida Flanagan Other Providers: Randell Trevino Other Interventions: Discharge Summary Assessment (RN) Last Done: 03/30/20 11:14 Coding Level of Care Code D/C Day Management >30 mins Diagnoses Catheter-associated urinary tract infection T83.511A; N39.0 Hematuria R31.0 Hematuria type: gross Calculus of kidney N20.0 Constipation K59.00 Reactive thrombocytosis R79.89 Memory loss R41.3
== END 2020-03-30 13:05 | disposition home or self-care (01) | DRG 660 ==
LOC: ED 14:32 → 2N 17:03 → SUATTDRO 17:03 → 2N 19:25

== ENCOUNTER 2020-09-24 14:01 | Inpatient (IN) ==
[2020-09-24] MEDS ORDERED: MEROPENEM CONSULT ACITVE PRN ×2 (14:34→20:54)
[2020-09-24] MEDS ORDERED: SODIUM CHLORIDE 0.9% 1000ML 1,000 ML IV SCH (14:45)
[2020-09-24] MEDS ORDERED: MEROPENEM 500 MG in SYRINGE 0 ML IV SCH (14:45)
--- NOTE | 2020-09-24 14:52 | XRay Report ---
XR chest 1V portable CLINICAL HISTORY: SEPSIS COMPARISON STUDY: Chest radiograph March 25, 2020. FINDINGS: Lung volumes are normal. Lungs are clear. There is no pneumothorax or pleural effusion. Car diac size is normal. Mediastinal contours are normal. There is no evidence for pulmonary edema. Posto perative findings within the right humerus are partially imaged. There are also postoperative finding s within the thoracic spine. IMPRESSION: No acute cardiopulmonary findings. ACT 112: Negative or not required by law. Electronically signed by: Omar Fisher M.D. 09/24/2020 2:51 PM
[2020-09-24 15:05] LABS: Basophils # (auto) 0.18 K/uL (0-0.2); Basophils % (auto) 1.3 %; Eosinophils # (auto) 0.32 K/uL (0-0.5); Eosinophils % (auto) 2.4 %; Hematocrit (blood only) 34.6 % (42-52); Hemoglobin 10.8 g/dL (14.0-18.0); Immature Granulocytes # (auto) 0.03 K/uL (0.00-0.02); Immature Granulocytes % (auto) 0.2 %; Lymphocytes # (auto) 1.53 K/uL (1.2-3.4); Lymphocytes % (auto) 11.4 %; Mean Corpuscular Hemoglobin 27.9 pg (25-34); Mean Corpuscular Hgb Conc 31.2 g/dL (32-36); Mean Corpuscular Volume 89.4 fL (80-100); Mean Platelet Volume 8.6 fL (7.4-10.4); Monocytes # (auto) 0.83 K/uL (0.11-0.59); Monocytes % (auto) 6.2 %; Neutrophils # (auto) 10.52 K/uL (1.4-6.5); Neutrophils % (auto) 78.5 %; Platelet Count 654 K/uL (130-400); RDW Coefficient of Variation 19.8 % (11.5-14.5); RDW Standard Deviation 65.7 fL (36.4-46.3); Red Blood Count 3.87 M/uL (4.7-6.1); White Blood Count 13.41 K/uL (4.8-10.8)
[2020-09-24 15:21] LABS: Partial Thromboplastin Ratio 1.2; Partial Thromboplastin Time 31.8 Seconds (21.0-31.0); Prothrombin Time 10.2 Seconds (9.0-12.0)
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
[2020-09-24 15:29] LABS: Albumin Level 2.5 gm/dl (3.4-5.0); BUN Creatinine Ratio 13.6 (10-20); Calcium 8.7 mg/dl (8.5-10.1); Creatinine Clr Calc Pharmacy 77.4 ml/min; Est GFR (African American) 85.7 ml/min; Est GFR (Non-African American) 73.9 ml/min; Magnesium 2.1 mg/dl (1.8-2.4); Potassium 3.4 mmol/L (3.5-5.1)
[2020-09-24 15:32] LABS: Albumin Globulin Ratio 0.5 (0.9-2); Bilirubin,Total 0.2 mg/dl (0.2-1); Globulin 5.3 gm/dl (2.5-4.0); Total Protein 7.8 gm/dl (6.4-8.2)
[2020-09-24] MEDS ORDERED: SODIUM CHLORIDE 0.9% 1000ML 1,000 ML IV ONE ×2 (15:43→16:59)
[2020-09-24] MEDS ORDERED: oxyCODONE/ACETAMINOPHEN 10-325 TAB PO STA (18:34)
--- NOTE | 2020-09-24 19:42 | History & Physical Report ---
Date of Service September 24, 2020 Assessment & Plan (1) Paraplegia following spinal cord injury: (2) Depression: (3) Hyperlipidemia: (4) UTI (urinary tract infection): Plan: 60 y/o M Hx HLD, depression, anemia, paraplegia - requires self catheterization and frequently develops UTIs. The pt was assessed for a UTI in the ER the prior day. Cultures were obtained and he was discharged with antibiotics. He was called back to the ER when the cultures returned + for resistant pseudomonas. He is admitted for IV antibiotics. The pt states he is asymptomatic and has not had fevers or rigors. Labs are notable for an elevated lactic, leukocytosis and mild hypokalemia. 1) Resistant UTI / pseudomonas - placed on Meropenem per sensitivities. IVF provided, vitals stable on admission. 2) Hypokalemia - repleted 3) Depression - cont Fluoxetine 4) HLD - cont Statin 5) Anemia - slightly worse than baseline - trend AM and consider additional workup. Full code - Lovenox prophylaxis Total time for this admit including review of labs, meds, imaging, records - discussion with pt and ER attending 44 min History of Present Illness Chief Complaint: Resistant UTI Primary Care Provider: Zenaida Flanagan PA-C 60 y/o M Hx HLD, depression, anemia, paraplegia - requires self catheterization and frequently develops UTIs. The pt was assessed for a UTI in the ER the prior day. Cultures were obtained and he was discharged with antibiotics. He was called back to the ER when the cultures returned + for resistant pseudomonas. He is admitted for IV antibiotics. The pt states he is asymptomatic and has not had fevers or rigors. Labs are notable for an elevated lactic, leukocytosis and mild hypokalemia. PMH: 1) HTN - variable and not currently treated 2) HLD 3) Depression 4) Paraplegia - T7 5) TIA 6) Recurrent UTIs 7) Requires self-catheterization 8) Asplenia 9) GERD - Beck's 10) Renal calculi 12) Chronic back pain 13) Chronic constipation 14) Anemia Surgical: 1) Thoracic spine 2) Cholecystectomy 3) Splenectomy Social: Does not drink or smoke Family: HTN, HLD Allergies Allergy/AdvReac Type Severity Reaction Status Date / Time caffeine AdvReac Intermediate Gastrointestinal Verified 09/24/20 15:27 Upset ibuprofen AdvReac Intermediate GI Bleed Verified 09/24/20 15:27 Home Medications Medication Instructions Recorded Confirmed Type atorvastatin 20 mg tablet 20 mg PO HS 01/02/18 09/24/20 History ferrous sulfate 325 mg (65 mg 325 mg PO QDL 01/02/18 09/24/20 History iron) tablet (iron) linaclotide 145 mcg capsule 145 mcg PO QDL 01/02/18 09/24/20 History (Linzess) multivitamin 1 tab PO QDL 01/02/18 09/24/20 History omeprazole 40 mg capsule,delayed 40 mg PO BID 01/02/18 09/24/20 History release oxycodone-acetaminophen 10 mg-325 1 tab PO Q6H PRN 01/02/18 09/24/20 History mg tablet amitriptyline 50 mg tablet 50 mg PO HS 08/08/18 09/24/20 History fluoxetine 60 mg tablet 60 mg PO QDL 05/20/19 09/24/20 History aspirin 81 mg tablet,delayed 81 mg PO QDL 07/16/19 09/24/20 History release sennosides 8.6 mg tablet (Senokot) 25.8 mg PO UD 07/16/19 09/24/20 History ascorbic acid (vitamin C) 500 mg 500 mg PO BID cap 03/23/20 09/24/20 History capsule zolpidem 10 mg tablet 10 mg PO HS PRN tab 03/23/20 09/24/20 History methenamine hippurate 1 gram tablet 1 g PO Q12H #60 tab 03/30/20 09/24/20 Rx cefdinir 300 mg capsule 300 mg PO BID 10 Days #20 cap 09/22/20 09/24/20 Rx Past Med/Surg History Medical History Anemia Beck esophagus Calculus of kidney Chronic back pain Depression Camp catheter in place GERD (gastroesophageal reflux disease) Hyperlipidemia Hypertension Osteoarthritis Osteopenia Paraplegia Thrombocytosis Transient ischemic attack (TIA) Surgical History H/O cystoscopy History of ankle surgery History of back surgery History of cholecystectomy History of colectomy History of colonoscopy History of esophagogastroduodenoscopy (EGD) History of splenectomy History of surgery History of surgery on arm History of tooth extraction Family History Mother Hypertension Hyperlipidemia Grandfather Myocardial infarction Other No pertinent family history Social History Smoking Status: Never smoker Tobacco Type: Smokeless Tobacco (Dip or Chew) Second Hand Exposure: No; Hx Alcohol Use: No Hx Substance Use: No Preferred Language: Qatari Communication Ability: Effective Cost Accounting Manager Required: No Beliefs That Will Affect Care: None marital status: Current Living Situation: Spouse Current Living Situation Comment: One level home current occupational status: disabled Feels Safe at Home: Yes Assistive Devices: Glasses Review of Systems Review of Systems: Gen: Denies fevers, night sweats, rigors, fatigue, malaise, weight loss/gain ENT: Denies congestion, throat pain, hearing loss Eyes: Denies acute visual changes CV: Denies CP, palpitations Pulmonary: Denies SOB, cough, wheezing GI: Denies N/V, diarrhea. + chronic constipation Neuro: Denies acute or unilateral weakness, acute gait impairment, headache or acute visual changes Musculoskeletal: Atonia of LEs is chronic Endocrine: Denies polydipsia, polyuria Skin: Shallow ulcers on back and shins - excoriation on back Physical Exam Physical Exam: General: Pleasant, middle-aged M, AAO x 3, no distress ENT: No erythema or exudates, no thrush Eyes: BLESSING, EOMI Head and neck: Normocephalic, atraumatic, No JVD, neck is supple. Chest/heart: Nontender, S1,2, RRR, no murmurs, no gallops Lungs: CTAB, no wheezing or crackles Abdomen: Nontender, nondistended, BS+ Neuro: AAO x 3, speech is clear - LE flaccid paralysis Musculoskeletal: No joint inflammation, muscle tenderness, FROM Skin: Multiple stage I or II ulcers shins/back - skin on back is excoriated and dry form scratching Extremities: Muscle wasting LEs Results & Data Results & Data ([facility]) Vital Signs (Past 12 Hours) Vital Signs Temp Pulse Pulse Resp BP BP Pulse Ox 09/24/20 15:30 71 20 100/65 96 09/24/20 14:12 98.1 F 101 H 18 92/62 L 94 Code Status & VTE Plan VTE Prophylaxis Plan VTE Prophylaxis will be ordered: Yes PG Care Time/CCT Total # of Minutes Spent Total Time Spent with Patient: Total time spent is greater than 50% in coordination of care (as documented) at patient's floor/unit and/or counseling patient: Coding Level of Care Code 19739 Initial Inpt Care Lvl 3 Diagnoses Paraplegia following spinal cord injury G82.20 Depression F32.9 Hyperlipidemia E78.5 UTI (urinary tract infection) N39.0
[2020-09-24 20:43] LABS: Appearance Urine Turbid (Clear); Bacteria Urine Automated 2+ (Negative); Bilirubin Urine Negative (Negative); Blood Urine 3+ (Negative); Color Urine Yellow; Epithelial Cell Urine Auto >30 /lpf (0-5); Glucose Urine UA Negative (Negative); Ketones Urine Negative (Negative); Leukocyte Esterase Urine 3+ (Negative); Nitrite Urine Positive (Negative); Protein Urine 1+ (Negative); Specific Gravity Urine 1.011 (1.000-1.030); Urobilinogen Urine Negative (Negative); WBC Urine Automated >30 /hpf (0-5)
[2020-09-24 20:58] LABS: RBC Urine Automated >30 /hpf (0-4)
[2020-09-24] MEDS ORDERED: POTASSIUM CHLORIDE CRTAB 20 MEQ TABCR PO STA (21:01)
[2020-09-24] MEDS ORDERED: D5NSS + 20MEQ KCL 20 MEQ/1,000 ML BAG IV SCH (21:15)
[2020-09-24] MEDS ORDERED: ASCORBIC ACID 500 MG TAB PO ONE (21:30)
[2020-09-24] MEDS: ENOXAPARIN INJ 40 MG/0.4 ML SYR SQ SCH (21:49)
[2020-09-24] MEDS: PANTOprazole 40 MG TAB PO SCH (21:50)
[2020-09-24] MEDS: MEROPENEM 500 MG in SYRINGE 0 ML IV SCH (23:10)
[2020-09-24] MEDS: ZOLPIDEM TARTRATE 10 MG TAB PO PRN (23:10)
[2020-09-24] MEDS: oxyCODONE/ACETAMINOPHEN 10-325 TAB PO PRN (23:10)
[2020-09-24] MEDS: ATORVASTATIN 20 MG TAB PO SCH (23:11)
[2020-09-24] MEDS: AMITRIPTYLINE HCL 50 MG TAB PO SCH (23:11)
[2020-09-24] MEDS: SENNA 8.6 MG TAB PO SCH (23:11)
[2020-09-25] MEDS ORDERED: MEROPENEM 500 MG in SYRINGE 0 ML IV SCH
[2020-09-25] MEDS: MEROPENEM 500 MG in SYRINGE 0 ML IV SCH ×4 (04:44→21:01)
[2020-09-25] MEDS: oxyCODONE/ACETAMINOPHEN 10-325 TAB PO PRN ×3 (08:54→21:02)
[2020-09-25] MEDS: ASCORBIC ACID 500 MG TAB PO SCH ×2 (08:55→21:01)
[2020-09-25] MEDS: PANTOprazole 40 MG TAB PO SCH ×2 (09:47→21:02)
[2020-09-25] MEDS: LINACLOTIDE 145 MCG CAPSULE PO SCH (11:09)
[2020-09-25] MEDS: MULTIVITAMIN TAB PO SCH (11:09)
[2020-09-25] MEDS: FERROUS SULFATE 325 MG TAB PO SCH (11:09)
[2020-09-25] MEDS: ASPIRIN 81 MG ECTAB PO SCH (11:09)
[2020-09-25] MEDS: SENNA 8.6 MG TAB PO SCH ×2 (11:09→23:16)
[2020-09-25] MEDS: FLUoxetine HCL 20 MG CAP PO SCH (11:10)
--- NOTE | 2020-09-25 11:45 | Electrocardiogram Report ---
Test Reason : Blood Pressure : / mmHG Vent. Rate : 089 BPM Atrial Rate : 089 BPM P-R Int : 144 ms QRS Dur : 102 ms QT Int : 398 ms P-R-T Axes : 066 -38 061 degrees QTc Int : 484 ms Poor data quality, interpretation may be adversely affected Normal sinus rhythm Possible Left atrial enlargement Left axis deviation Incomplete right bundle branch block Abnormal ECG When compared with ECG of 25-MAR-2020 16:37, T wave amplitude has increased in Anterior leads Confirmed by Jaspreet Nixon ([id number]) on 09/25/2020 11:45:06 AM Referred By: REFERRED SELF Confirmed By:Jaspreet Nixon
--- NOTE | 2020-09-25 15:23 | Hospitalist Progress Note ---
Date of Service September 25, 2020 Assessment & Plan (1) Paraplegia following spinal cord injury: (2) Depression: Plan: - Continue fluoxetine (3) Hyperlipidemia: Plan: - Continue atorvastatin (4) UTI (urinary tract infection): Plan: - Recurrent UTIs in the setting of neurogenic bladder and obstructive uropathy. - Takes methenamine hippurate as an outpatient for prophylaxis. - Admitted for IV Meropenem based on UC&S from 09/22/20 growing multi-abx resistant pseudomonas. - Repeat UC&S preliminarily growing gram negative bacilli and yeast. Blood cultures pending. - Patient was to have ureteral stent exchange this month with Dr. Mcintosh. Will consult urology in the event they would like to do the stent exchange while inpatient on abx. (5) Anemia: Plan: - H&H of 10.8 and 34.6 on admission. Baseline ~ 11-12. - Monitor. - Recheck CBC in AM. (6) GERD (gastroesophageal reflux disease): Plan: - On omeprazole at home. Ordered Pantoprazole 40mg PO BID while inpatient. (7) Hypokalemia: Plan: - 3.4 on admission. Repleted. - Recheck in AM. (8) DVT prophylaxis: Plan: - Lovenox Admission and Anticipated Discharge Date Admission Date: September 24, 2020 Supervising Physician Co-Signing Physician Notes Attending Attestation - Personal bedside visit not performed. However, chart reviewed in detail, and care plan d/w SIRIA Esquivel. I agree w/ the pleitez components of her documentation. Catheter-associated / complicated UTI as patient has chronic indwelling garrison catheter due to neurogenic bladder. Urine culture with GNR and yeast. Cont meropenem. Consider antifungal as well. Await final culture. Agree w/ urology consultation. Randell Ho MD Subjective Patient feels well today. Reports some back and left wrist pain today, but otherwise is doing well. He reports the left wrist pain is chronic. Blood and urine cultures pending. Patient was to follow-up with urologist Dr. Mcintosh this month for ureteral stent exchange, but this has not yet been scheduled. Review of Systems Constitutional: no fever and no chills Ear, Nose, Mouth, Throat: no dizziness Respiratory: no dyspnea Cardiovascular: no chest pain Gastrointestinal: no abdominal pain, no nausea and no vomiting Musculoskeletal: + back pain Neurologic: + paralysis Psychiatric: no confusion Physical Exam Constitutional: average body habitus; no acute distress ENMT: Ears: no hearing impairment Neck: trachea midline, no thyromegaly Respiratory: normal respiratory effort, lungs clear to auscultation Cardiovascular: RRR, no murmur, no edema Gastrointestinal (Abdomen): Inspection/Auscultation: normal bowel sounds Percussion/Palpation: abdomen soft; abdomen nontender Skin: + dry skin (lower extremities ) Psychiatric: A+Ox3, euthymic affect Lymphatic: no cervical or axillary lymphadenopathy Results & Data Results & Data ([facility]) Vital Signs (Past 12 Hours) Vital Signs Temp Resp BP Pulse Ox 09/25/20 08:17 36.6 C 17 138/85 98 PG Care Time/CCT Total # of Minutes Spent Total Time Spent with Patient: Total time spent is greater than 50% in coordination of care (as documented) at patient's floor/unit and/or counseling patient: Coding Level of Care Code 81863 Subseq Hosp Care Lvl 2 Medical Decision Making Moderate Complexity Diagnoses Paraplegia following spinal cord injury G82.20 Depression F32.9 Hyperlipidemia E78.5 UTI (urinary tract infection) N39.0 Anemia D64.9 GERD (gastroesophageal reflux disease) K21.9 Esophagitis presence: without esophagitis Hypokalemia E87.6 DVT prophylaxis Z29.9 (1) GERD (gastroesophageal reflux disease) Esophagitis presence: without esophagitis Qualified Code(s): K21.9 - Gastro- esophageal reflux disease without esophagitis
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
[2020-09-25] MEDS: ENOXAPARIN INJ 40 MG/0.4 ML SYR SQ SCH (21:01)
[2020-09-25] MEDS: AMITRIPTYLINE HCL 50 MG TAB PO SCH (23:16)
[2020-09-25] MEDS: ZOLPIDEM TARTRATE 10 MG TAB PO PRN (23:16)
[2020-09-25] MEDS: ATORVASTATIN 20 MG TAB PO SCH (23:16)
[2020-09-26] MEDS: MEROPENEM 500 MG in SYRINGE 0 ML IV SCH ×4 (04:30→21:32)
[2020-09-26 07:02] LABS: Basophils # (auto) 0.32 K/uL (0-0.2); Basophils % (auto) 2.9 %; Eosinophils # (auto) 0.93 K/uL (0-0.5); Eosinophils % (auto) 8.5 %; Hematocrit (blood only) 34.1 % (42-52); Hemoglobin 10.9 g/dL (14.0-18.0); Immature Granulocytes # (auto) 0.02 K/uL (0.00-0.02); Immature Granulocytes % (auto) 0.2 %; Lymphocytes # (auto) 1.84 K/uL (1.2-3.4); Lymphocytes % (auto) 16.9 %; Mean Corpuscular Hemoglobin 28.6 pg (25-34); Mean Corpuscular Volume 89.5 fL (80-100); Mean Platelet Volume 8.8 fL (7.4-10.4); Monocytes # (auto) 0.92 K/uL (0.11-0.59); Monocytes % (auto) 8.5 %; Neutrophils # (auto) 6.85 K/uL (1.4-6.5); Platelet Count 681 K/uL (130-400); RDW Coefficient of Variation 19.5 % (11.5-14.5); RDW Standard Deviation 63.8 fL (36.4-46.3); Red Blood Count 3.81 M/uL (4.7-6.1); White Blood Count 10.88 K/uL (4.8-10.8)
[2020-09-26 07:43] LABS: Calcium 8.6 mg/dl (8.5-10.1); Est GFR (African American) 130.3 ml/min; Est GFR (Non-African American) 112.4 ml/min
--- NOTE | 2020-09-26 08:21 | Urology Progress Note ---
Date of Service September 26, 2020 Assessment & Plan (1) Complicated UTI (urinary tract infection): (2) Garrison catheter in place: (3) Hydroureteronephrosis: Plan: 60 year-old male patient, with multiple comorbidities including chronic indwelling Garrison catheter and bilateral ureteral stents, admitted with complicated UTI. - Hx of recurrent UTI in the setting of neurogenic bladder and obstructive uropathy - Afebrile, lab work reviewed - Wbc 10.88 and creatinine 0.57. - Urine culture preliminary multi resistant organisms pseudomonas aeruginosa and yeast; BCx prelim NGTD - On IV Meropenem - Recommend bilateral stent exchange during admission -Discussed with patient, he is agreeable. - Continue supportive care and antibiotics, follow cultures. - Maintain garrison catheter. - Keep NPO. - Findings reviewed with Dr. Mcintosh. Proceed with OR for cystoscopy and bilateral stent exchange. Risks and benefits to be reviewed with patient by Dr. Mcintosh. OR notified. CXR and EKG in chart. COVID test negative. On IV Meropenem. - Expected clinical course reviewed with patient, he is agreeable to plan and all questions were answered. ATTENDING NOTE: Independently evaluated, interviewed, examined, and assessed. Agree with above. Risks and benefits discussed at length for procedure. These include bleeding, infection, injury to surrounding tissues or organs, and risks associated with anesthesia. Patient states understanding and agrees to proceed. Will sign consent and proceed. Plan to set up for stent exchange bilateral. Admission and Anticipated Discharge Date Admission Date: September 24, 2020 Subjective Pt examined at bedside this AM. Awake, resting in bed on arrival. He denies back, flank, and suprapubic pain at present. Garrison catheter intact, draining cloudy yellow urine with sediment noted in tubing. Denies fevers or chills. No nausea or vomiting. Has been NPO since midnight. Offers no addition complaints at this time. Garrison output overnight - 1950ml UCx preliminary MRO pseudomonas aeruginosa and yeast, contact precautions BCx preliminary NGTD Review of Systems Constitutional: as per Subjective / HPI Gastrointestinal: as per Subjective / HPI Genitourinary: + as per Subjective / HPI Physical Exam Constitutional: well developed and well nourished; no acute distress Respiratory: normal respiratory effort; no respiratory distress and no labored breathing Gastrointestinal (Abdomen): Abdomen is soft and nontender to palpation Musculoskeletal: No calf tenderness Skin: No visible rashes or lesions Psychiatric: A+Ox3, euthymic affect Genitourinary: Garrison catheter in place; no CVA tenderness Results & Data ([facility]) Vital Signs (Past 12 Hours) Vital Signs Temp Pulse Resp BP Pulse Ox 09/25/20 23:04 36.8 C 72 16 151/85 H 95 PG Care Time/CCT Total # of Minutes Spent Total Time Spent with Patient: Total time spent is greater than 50% in coordination of care (as documented) at patient's floor/unit and/or counseling patient: Coding Level of Care Code 10031 Subseq Hosp Care Lvl 2 Diagnoses Complicated UTI (urinary tract infection) N39.[address] Z96.0 Hydroureteronephrosis N13.30
--- NOTE | 2020-09-26 09:18 | Hospitalist Progress Note ---
Date of Service September 26, 2020 Assessment & Plan (1) Paraplegia following spinal cord injury: (2) Depression: (3) Hyperlipidemia: (4) UTI (urinary tract infection): Plan: this is a complex uti, associated with Catheter and stents present on admission Plan: 60 y/o M Hx HLD, depression, anemia, paraplegia - requires self catheterization and frequently develops UTIs. The pt was assessed for a UTI in the ER the prior day. Cultures were obtained and he was discharged with antibiotics. He was called back to the ER when the cultures returned + for resistant pseudomonas. He is admitted for IV antibiotics. The pt states he is asymptomatic and has not had fevers or rigors. Labs are notable for an elevated lactic, leukocytosis and mild hypokalemia. 1) Resistant UTI / pseudomonas - placed on Meropenem per sensitivities. IVF provided, vitals stable on admission. Since this is multidrug-resistant may consider ID consult versus home on meropenem will check with insurance coverage. In addition there was yeast noted on infection of Cinda albicans subsequently Diflucan, and was started p.o. Urology has changed out ureteral stent September 26, 2020 2) Hypokalemia - repleted 3) Depression - cont Fluoxetine 4) HLD - cont Statin 5) Anemia - slightly worse than baseline - trend AM and consider additional workup. Full code - Lovenox prophylaxis Admission and Anticipated Discharge Date Admission Date: September 24, 2020 Subjective Patient seen post stent change was doing well hungry and asking for a meal no other new persistent complaints or problems likely may need to be home on IV antibiotics but has done this in the past Review of Systems Review of Systems: Mild distress and fatigue no headache, no visual changes no speech or swallowing issues no chest pain, pressure or palpitations no shortness of breath, cough or wheezes no abdominal pain, nausea or vomiting, diarrhea or constipation Because of some persistent urinary changes but is just post procedure no focal joint pain or swelling no back pain, CVA tenderness or radicular pain no bruising, bleeding or rashes no focal signs of weakness or numbness or altered sensation no complaints of anxiety or depression.. Physical Exam Physical Exam: The patient appeared well nourished and normally developed. No active distress although post procedure right now Vital signs as documented. Head exam is normocephalic atraumatic Neck is without JVD, thyromegaly, or carotid bruits. Lungs are clear to auscultation, no focal loss of breath sounds Cardiac exam, Rhythm is regular.. No murmurs, rubs or gallops. Abdominal exam reveals normal bowel sounds, soft non tender, no masses Extremities are nonedematous and both pedal pulses are present Neurologic exam is alert and oriented, no focal loss of strength or sensation Skin is without bruises or rashes Psychologically is without concerns for anxiety or depression Results & Data Results & Data ([facility]) Vital Signs (Past 12 Hours) Vital Signs Temp Pulse Resp BP Pulse Ox 09/26/20 07:57 97.7 F 76 20 174/76 H 97 09/25/20 23:04 98.2 F 72 16 151/85 H 95 PG Care Time/CCT Total # of Minutes Spent Total Time Spent with Patient: Total time spent is greater than 50% in coordination of care (as documented) at patient's floor/unit and/or counseling patient: Coding Level of Care Code 32506 Subseq Hosp Care Lvl 2 Diagnoses Paraplegia following spinal cord injury G82.20 Depression F32.9 Hyperlipidemia E78.5 UTI (urinary tract infection) N39.0
[2020-09-26] MEDS: oxyCODONE/ACETAMINOPHEN 10-325 TAB PO PRN ×3 (09:36→23:34)
[2020-09-26] MEDS: ASCORBIC ACID 500 MG TAB PO SCH ×2 (09:36→21:32)
[2020-09-26] MEDS: PANTOprazole 40 MG TAB PO SCH ×2 (09:36→21:32)
[2020-09-26] MEDS: FLUCONAZOLE 100 MG TAB PO SCH ×2 (11:10→21:32)
[2020-09-26] MEDS: SENNA 8.6 MG TAB PO SCH ×2 (11:12→23:33)
[2020-09-26] MEDS: LINACLOTIDE 145 MCG CAPSULE PO SCH (11:12)
[2020-09-26] MEDS: ASPIRIN 81 MG ECTAB PO SCH (11:12)
[2020-09-26] MEDS: FERROUS SULFATE 325 MG TAB PO SCH (11:12)
[2020-09-26] MEDS: FLUoxetine HCL 20 MG CAP PO SCH (11:12)
[2020-09-26] MEDS: MULTIVITAMIN TAB PO SCH (11:13)
[2020-09-26] MEDS ORDERED: ePHEDrine sulfate 50 MG/ML AMP IV PRN (13:39)
[2020-09-26] MEDS ORDERED: HYDROmorphone INJ 2 MG/ML SYR/VIAL IV PRN (13:39)
[2020-09-26] MEDS ORDERED: ATROPINE SULFATE 0.1 MG/ML 10ML SYR IV PRN (13:39)
[2020-09-26] MEDS ORDERED: fentaNYL citrate 100 MCG/2 ML VIAL IV PRN (13:39)
[2020-09-26] MEDS ORDERED: ONDANSETRON INJ 2 MG/ML 2 ML VIAL IV PRN (13:39)
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
[2020-09-26] MEDS ORDERED: MIDAZOLAM HCL 1 MG/ML 2ML VIAL ONE (13:49)
[2020-09-26] MEDS ORDERED: fentaNYL citrate 100 MCG/2 ML VIAL ONE (14:07)
[2020-09-26] MEDS ORDERED: PROPOFOL IV EMULSION 10 MG/ML 20 ML VIAL IV ONE (14:24)
[2020-09-26] MEDS ORDERED: LIDOCAINE 2% 2 ML VIAL/AMP(20MG/ML) INFIL ONE (14:24)
[2020-09-26] MEDS ORDERED: DIATRIZOATE MEGLUMINE 30% 100ML VIAL INSTIL ONE (14:36)
--- NOTE | 2020-09-26 14:43 | Operative Report ---
PG Post Operative Report Pre & Post Diagnosis Operation Date: 09/26/20 12:20 Pre-Op Diagnosis: Resistant UTI Post-Op Diagnosis: Resistant UTI I identified the patient and participated in the time-out.: Yes Procedure Operation Date: 09/26/20 12:20 Actual Procedures p Cystoscopy, Bilateral Retrograde pyelogram and Ureteral Stent Exchange Right urine aspiration - Edison Mcintosh DO Surgeon Edison Mcintosh, II, DO Real Property Evaluator None Estimated Blood Loss 1 Findings Consistent with Post-Op Diagnosis Stent exchanged bilateral and placed in good position. Severe encrustation of right stent with purulent urine in renal pelvis. Specimens None Drains 6 Fr x 26 cm bilateral 18 Fr Silicon catheter. Anesthesia Type MAC Complications none Disposition Disposition: Recovery Room Indications Patient with obstruction with chronic stent changes. Risks and benefits discussed at length. Description of Procedure Patient was consented and brought back to the operating room. Patient was placed under anesthesia in the supine position and moved to the dorsal lithotomy position. Patient was prepped and draped in the regular sterile fashion. A time out was completed. A 30degree Cystoscope was placed into the bladder and the entire bladder was examined. The UO's were identified. Starting on the left, The stent was grasped and partially removed. A wire was then placed and the stent fully removed. The UO was cannulized over the wire with a dual lumen catheter and a retrograde pyelogram was completed. The wire was maintained and the catheter removed. With the wire in place, a 6 Fr Double J stent was placed. It was confirmed with fluoroscopy. On the right, The stent was grasped and partially removed. This was severely encrusted. A wire was then placed and the stent fully removed. The UO was cannulized over the wire with a dual lumen catheter and a retrograde pyelogram was completed.A significant 'moth eaten' appearance was noted on the right. Urine was sampled from the pelvis and found to be severely purulent in appearance. This was aspirated and sent for analysis. The wire was maintained and the catheter removed. With the wire in place, a 6 Fr Double J stent was placed. It was confirmed with fluoroscopy. With the stents in place, the bladder was emptied. The scope was removed. An 18 Fr silicon catheter was placed. The patient was cleaned, aroused from anesthesia, and transferred to the pacu in stable condition having tolerated the procedure well with no complications. I was present and participated in all aspects of the procedure. The patient will be monitored in the PACU until transferred. Back to floor. Await culture. Stent change in next 2-3 months. I attest to the content of the Intraoperative Record and any orders documented therein. Any exceptions are noted below.
--- NOTE | 2020-09-26 14:59 | Anesthesiology Progress Note ---
Date of Service September 26, 2020 Anesthesia Post Procedure Vital Signs Vital Signs: Temp Pulse Pulse Resp BP Pulse Ox 09/26/20 13:03 36.7 C 71 18 144/90 H 99 09/26/20 12:53 36.6 C 71 18 143/92 H 96 09/26/20 07:57 36.5 C 76 20 174/76 H 97 09/25/20 23:04 36.8 C 72 16 151/85 H 95 09/25/20 15:24 36.6 C 74 17 142/89 H 97 Pain Intensity Generalized: Pain Intensity: 5 Neck: Pain Intensity: 7 Left Wrist: Pain Intensity: 7 Back: Pain Intensity: 7 Transfer of Care Handoff Completed per policy Notes Mental Status: alert / awake / arousable and participated in evaluation Patient Amnestic to Procedure: Yes Nausea / Vomiting: adequately controlled Pain: adequately controlled Airway Patency, RR, SpO2: stable & adequate BP & HR: stable & adequate Hydration State: stable & adequate Anesthetic Complications: no major complications apparent and Pt Satisfied with anesthetic care
--- NOTE | 2020-09-26 15:05 | Fluoroscopy Report ---
FL retrograde includes kub CLINICAL HISTORY: BILATERAL STENT PLACEMENT COMPARISON STUDY: CT of the abdomen and pelvis September 22, 2020. FLUOROSCOPY TIME: 97.3 seconds. FLUOROSCOPIC IMAGES: 11 FINDINGS: Fluoroscopy was provided for bilateral retrograde exams with bilateral ureteral stent excha nge. Stents appear appropriately positioned. There is mild to moderate right hydronephrosis. There is mild left hydronephrosis. IMPRESSION: Fluoroscopy provided for bilateral retrograde exams with bilateral ureteral stent exchan MacroCure. ACT 112: Negative or not required by law. Electronically signed by: Omar Fisher M.D. 09/26/2020 3:04 PM
[2020-09-26] MEDS: EUCERIN CR 120 GM JAR EXT SCH ×2 (15:39→21:32)
[2020-09-26] MEDS: ENOXAPARIN INJ 40 MG/0.4 ML SYR SQ SCH (21:33)
[2020-09-26] MEDS: AMITRIPTYLINE HCL 50 MG TAB PO SCH (23:33)
[2020-09-26] MEDS: ATORVASTATIN 20 MG TAB PO SCH (23:33)
[2020-09-26] MEDS: ZOLPIDEM TARTRATE 10 MG TAB PO PRN (23:33)
[2020-09-27] MEDS: MEROPENEM 500 MG in SYRINGE 0 ML IV SCH ×4 (05:00→21:07)
[2020-09-27] MEDS: EUCERIN CR 120 GM JAR EXT SCH ×3 (05:03→21:09)
[2020-09-27 07:20] LABS: Basophils # (auto) 0.25 K/uL (0-0.2); Eosinophils # (auto) 0.79 K/uL (0-0.5); Eosinophils % (auto) 6.4 %; Hematocrit (blood only) 35.1 % (42-52); Hemoglobin 10.9 g/dL (14.0-18.0); Immature Granulocytes # (auto) 0.03 K/uL (0.00-0.02); Immature Granulocytes % (auto) 0.2 %; Mean Corpuscular Hemoglobin 27.5 pg (25-34); Mean Corpuscular Hgb Conc 31.1 g/dL (32-36); Mean Corpuscular Volume 88.6 fL (80-100); Mean Platelet Volume 8.9 fL (7.4-10.4); Monocytes # (auto) 0.86 K/uL (0.11-0.59); Monocytes % (auto) 6.9 %; Neutrophils # (auto) 8.35 K/uL (1.4-6.5); Neutrophils % (auto) 67.5 %; Platelet Count 666 K/uL (130-400); RDW Coefficient of Variation 19.4 % (11.5-14.5); RDW Standard Deviation 63.5 fL (36.4-46.3); Red Blood Count 3.96 M/uL (4.7-6.1); White Blood Count 12.38 K/uL (4.8-10.8)
[2020-09-27 07:50] LABS: BUN Creatinine Ratio 14.7 (10-20); Calcium 8.6 mg/dl (8.5-10.1); Creatinine Clr Calc Pharmacy 117.2 ml/min; Est GFR (African American) 118.3 ml/min; Est GFR (Non-African American) 102.1 ml/min; Potassium 4.6 mmol/L (3.5-5.1)
[2020-09-27] MEDS: PANTOprazole 40 MG TAB PO SCH ×2 (08:32→21:07)
[2020-09-27] MEDS: oxyCODONE/ACETAMINOPHEN 10-325 TAB PO PRN ×3 (08:32→21:08)
[2020-09-27] MEDS: ASCORBIC ACID 500 MG TAB PO SCH ×2 (08:32→21:08)
[2020-09-27] MEDS: FLUCONAZOLE 100 MG TAB PO SCH ×2 (08:32→21:08)
--- NOTE | 2020-09-27 10:01 | Urology Progress Note ---
Date of Service September 27, 2020 Assessment & Plan (1) Complicated UTI (urinary tract infection): (2) Camp catheter in place: Plan: 60 year-old male patient, with multiple comorbidities including chronic indwelling Camp catheter and bilateral ureteral stents, admitted with complicated UTI. - Pt POD #1 s/p cystoscopy and bilateral stent exchange with Dr. Mcintosh. - Doing well, progressing as expected. - Afebrile, lab work reviewed - WBC 12.38 and creatinine 0.72. - Urine culture grew out multi- resistant organism pseudomonas aeruginosa, Cinda - On IV Meropenem, Fluconazole. - Intraop renal pelvis urine aspirate pending. - Tolerating ureteral stents without bother. - Continue supportive care and antibiotics per primary team, follow cultures. - Maintain Camp catheter. - Expected clinical course reviewed with patient, all questions were answered. - Follow-up with our service outpatient as scheduled. Thank you for allowing us to participate in the acute care of Mr. Guardado. Please reconsult us with additional questions, concerns or changes in patient status. Admission and Anticipated Discharge Date Admission Date: September 24, 2020 Subjective 60 yo M POD#1 s/p cystoscopy and bilateral stent exchange with Dr. Mcintosh. Patient awake, alert and sitting up in bed. No issues overnight. No flank, abdominal or suprapubic pain. Camp catheter intact, patent and draining clear pink/light red urine, no clots noted. No nausea or vomiting. No fever or chills. No additional concerns at this time. Chart review: Afebrile, creatinine 0.72, WBC 12.38, Hgb 10.9, on IV Meropenem, renal pelvis urine culture pending. Review of Systems Constitutional: as per Subjective / HPI Gastrointestinal: as per Subjective / HPI Genitourinary: + as per Subjective / HPI Physical Exam Constitutional: Chronically ill-appearing, no acute distress Respiratory: normal respiratory effort and able to speak in complete sentences; no respiratory distress and no labored breathing Gastrointestinal (Abdomen): Inspection/Auscultation: abdomen normal to inspection; abdomen not distended Percussion/Palpation: abdomen soft; abdomen nontender and no guarding Musculoskeletal: Head/Neck/Chest: normocephalic and head atraumatic Neurologic: awake Psychiatric: A+Ox3, euthymic affect Genitourinary: Camp intact, patent and draining clear pink/light red urine, no clots noted Results & Data ([facility]) Vital Signs (Past 12 Hours) Vital Signs Temp Pulse Pulse Resp BP Pulse Ox 09/27/20 07:56 36.7 C 73 16 148/88 H 97 09/27/20 03:17 36.5 C 73 16 164/66 H 95 09/26/20 22:11 36.7 C 66 18 149/92 H 99 PG Care Time/CCT Total # of Minutes Spent Total Time Spent with Patient: Total time spent is greater than 50% in coordination of care (as documented) at patient's floor/unit and/or counseling patient: Coding Level of Care Code 90117 Subseq Hosp Care Lvl 2 Diagnoses Complicated UTI (urinary tract infection) N39.[address] Z96.0
[2020-09-27] MEDS: ASPIRIN 81 MG ECTAB PO SCH (12:53)
[2020-09-27] MEDS: FLUoxetine HCL 20 MG CAP PO SCH (12:53)
[2020-09-27] MEDS: LINACLOTIDE 145 MCG CAPSULE PO SCH (12:53)
[2020-09-27] MEDS: SENNA 8.6 MG TAB PO SCH (12:53)
[2020-09-27] MEDS: FERROUS SULFATE 325 MG TAB PO SCH (12:53)
[2020-09-27] MEDS: MULTIVITAMIN TAB PO SCH (12:53)
--- NOTE | 2020-09-27 20:04 | Hospitalist Progress Note ---
Date of Service September 27, 2020 Assessment & Plan (1) Paraplegia following spinal cord injury: Plan: Patient has persistent supportive care he has lost function over time due to encephalopathy is looking for rehab placement (2) Depression: Plan: Remains on fluoxetine (3) Hyperlipidemia: Plan: Atorvastatin 20 (4) UTI (urinary tract infection): Plan: this is a complex uti, associated with Catheter and stents present on admission Plan: 60 y/o M Hx HLD, depression, anemia, paraplegia - requires self catheterization and frequently develops UTIs. The pt was assessed for a UTI in the ER the prior day. Cultures were obtained and he was discharged with antibiotics. He was called back to the ER when the cultures returned + for resistant pseudomonas. He is admitted for IV antibiotics. The pt states he is asymptomatic and has not had fevers or rigors. Labs are notable for an elevated lactic, leukocytosis and mild hypokalemia. 1) Resistant UTI / pseudomonas - placed on Meropenem per sensitivities. IVF provided, vitals stable on admission. Since this is multidrug-resistant may consider discharge on IV meropenem. In addition there was yeast noted on infection of Cinda albicans subsequently Diflucan, and was started p.o. Urology has changed out ureteral stent September 26, 2020 2) Hypokalemia - repleted 3) Depression - cont Fluoxetine 4) HLD - cont Statin 5) Anemia -anemia of chronic disease Disposition rehab needs continue IV antibiotics Full code - Lovenox prophylaxis Admission and Anticipated Discharge Date Admission Date: September 24, 2020 Subjective Patient doing well requires intravenous antibiotics is looking for placement for rehab Review of Systems Review of Systems: Mild distress and fatigue no headache, no visual changes no speech or swallowing issues no chest pain, pressure or palpitations no shortness of breath, cough or wheezes no abdominal pain, nausea or vomiting, diarrhea or constipation Because of some persistent urinary changes but is just post procedure no focal joint pain or swelling no back pain, CVA tenderness or radicular pain no bruising, bleeding or rashes no focal signs of weakness or numbness or altered sensation no complaints of anxiety or depression.. Physical Exam Physical Exam: The patient appeared well nourished and normally developed. No active distress although post procedure right now Vital signs as documented. Head exam is normocephalic atraumatic Neck is without JVD, thyromegaly, or carotid bruits. Lungs are clear to auscultation, no focal loss of breath sounds Cardiac exam, Rhythm is regular.. No murmurs, rubs or gallops. Abdominal exam reveals normal bowel sounds, soft non tender, no masses Extremities are nonedematous and both pedal pulses are present Neurologic exam is alert and oriented, no focal loss of strength or sensation Skin is without bruises or rashes Psychologically is without concerns for anxiety or depression Results & Data Results & Data ([facility]) Vital Signs (Past 12 Hours) Vital Signs Temp Pulse Resp BP Pulse Ox 09/27/20 15:23 98.2 F 69 16 121/78 97 09/27/20 11:35 97.9 F 73 16 114/65 97 PG Care Time/CCT Total # of Minutes Spent Total Time Spent with Patient: Total time spent is greater than 50% in coordination of care (as documented) at patient's floor/unit and/or counseling patient: Coding Level of Care Code 20617 Subseq Hosp Care Lvl 2 Diagnoses Paraplegia following spinal cord injury G82.20 Depression F32.9 Hyperlipidemia E78.5 UTI (urinary tract infection) N39.0
[2020-09-27] MEDS: ENOXAPARIN INJ 40 MG/0.4 ML SYR SQ SCH (21:08)
[2020-09-28] MEDS: ATORVASTATIN 20 MG TAB PO SCH ×2 (00:17→22:58)
[2020-09-28] MEDS: SENNA 8.6 MG TAB PO SCH ×3 (00:17→22:58)
[2020-09-28] MEDS: AMITRIPTYLINE HCL 50 MG TAB PO SCH ×2 (00:17→22:58)
[2020-09-28] MEDS: ZOLPIDEM TARTRATE 10 MG TAB PO PRN (00:17)
[2020-09-28] MEDS: MEROPENEM 500 MG in SYRINGE 0 ML IV SCH ×4 (03:54→22:48)
[2020-09-28] MEDS: oxyCODONE/ACETAMINOPHEN 10-325 TAB PO PRN ×3 (03:56→19:54)
[2020-09-28] MEDS: EUCERIN CR 120 GM JAR EXT SCH ×3 (05:32→22:48)
[2020-09-28] MEDS: FLUCONAZOLE 100 MG TAB PO SCH ×2 (07:47→20:31)
[2020-09-28] MEDS: PANTOprazole 40 MG TAB PO SCH ×2 (07:47→20:31)
[2020-09-28] MEDS: ASCORBIC ACID 500 MG TAB PO SCH ×2 (07:47→20:31)
[2020-09-28 08:55] LABS: Basophils # (auto) 0.15 K/uL (0-0.2); Eosinophils # (auto) 0.65 K/uL (0-0.5); Eosinophils % (auto) 4.4 %; Hematocrit (blood only) 35.1 % (42-52); Immature Granulocytes # (auto) 0.05 K/uL (0.00-0.02); Immature Granulocytes % (auto) 0.3 %; Lymphocytes # (auto) 1.48 K/uL (1.2-3.4); Lymphocytes % (auto) 10.1 %; Mean Corpuscular Hemoglobin 27.6 pg (25-34); Mean Corpuscular Hgb Conc 31.3 g/dL (32-36); Mean Corpuscular Volume 88.2 fL (80-100); Mean Platelet Volume 8.5 fL (7.4-10.4); Monocytes # (auto) 1.09 K/uL (0.11-0.59); Monocytes % (auto) 7.4 %; Neutrophils # (auto) 11.23 K/uL (1.4-6.5); Neutrophils % (auto) 76.8 %; Platelet Count 609 K/uL (130-400); RDW Coefficient of Variation 18.9 % (11.5-14.5); RDW Standard Deviation 61.7 fL (36.4-46.3); Red Blood Count 3.98 M/uL (4.7-6.1); White Blood Count 14.65 K/uL (4.8-10.8)
[2020-09-28 09:47] LABS: BUN Creatinine Ratio 19.5 (10-20); Calcium 8.5 mg/dl (8.5-10.1); Creatinine Clr Calc Pharmacy 80.4 ml/min; Est GFR (African American) 89.6 ml/min; Est GFR (Non-African American) 77.3 ml/min
[2020-09-28] MEDS: ASPIRIN 81 MG ECTAB PO SCH (12:09)
[2020-09-28] MEDS: MULTIVITAMIN TAB PO SCH (12:10)
[2020-09-28] MEDS: FERROUS SULFATE 325 MG TAB PO SCH (12:10)
[2020-09-28] MEDS: FLUoxetine HCL 20 MG CAP PO SCH (12:10)
[2020-09-28] MEDS: LINACLOTIDE 145 MCG CAPSULE PO SCH (12:10)
[2020-09-28] MEDS ORDERED: SODIUM CHLORIDE 0.9% 1000ML 500 ML IV ONE (14:03)
[2020-09-28] MEDS ORDERED: TOBRAMYCIN CONSULT ACTIVE PRN (14:07)
--- NOTE | 2020-09-28 14:08 | Hospitalist Progress Note ---
Date of Service September 28, 2020 Assessment & Plan (1) UTI (urinary tract infection): Plan: this is a complex uti, associated with Catheter and stents present on admission, now with resistance to all drugs except for tobramycin, will have tobramycin and ID consult, are also treating cinda that was seen. PT has some lower blood pressure, will give fluid bolus but concern if septic from now found resistant orgainsm will keep close tabs on pt, check lactic acid and prp (2) Paraplegia following spinal cord injury: Plan: Patient has persistent supportive care he has lost function over time due to encephalopathy is looking for rehab placement (3) Depression: Plan: Remains on fluoxetine (4) Hyperlipidemia: Plan: Atorvastatin 20 Plan: 60 y/o M Hx HLD, depression, anemia, paraplegia - requires self catheterization and frequently develops UTIs. The pt was assessed for a UTI in the ER the prior day. Cultures were obtained and he was discharged with antibiotics. He was called back to the ER when the cultures returned + for resistant pseudomonas. He is admitted for IV antibiotics. The pt states he is asymptomatic and has not had fevers or rigors. Labs are notable for an elevated lactic, leukocytosis and mild hypokalemia. 1) Resistant UTI / pseudomonas - placed on Meropenem per initial sensitivities. now new sensitivities are with meropenem resistance. IVF bolus 09/29/20, vitals stable on admission. Since this is multidrug-resistant will have ID evalation. In addition there was yeast noted on infection of Cinda albicans subsequently Diflucan, and was started p.o. Urology has changed out ureteral stent September 26, 2020 2) Hypokalemia - repleted 3) Depression - cont Fluoxetine 4) HLD - cont Statin 5) Anemia -anemia of chronic disease Disposition rehab needs continue IV antibiotics Full code - Lovenox prophylaxis Admission and Anticipated Discharge Date Admission Date: September 24, 2020 Subjective pt had episode of hypotension after PT, not clear if autonomic as is hemipelegic and PT was PROM, however also now found to have a now resistance to meropenem Review of Systems Review of Systems: Mild distress and fatigue no headache, no visual changes no speech or swallowing issues no chest pain, pressure or palpitations no shortness of breath, cough or wheezes no abdominal pain, nausea or vomiting, diarrhea or constipation Because of some persistent urinary changes but is just post procedure no focal joint pain or swelling no back pain, CVA tenderness or radicular pain no bruising, bleeding or rashes no focal signs of weakness or numbness or altered sensation no complaints of anxiety or depression.. Physical Exam Physical Exam: The patient appeared well nourished and normally developed. No active distress although post procedure right now Vital signs as documented. Head exam is normocephalic atraumatic Neck is without JVD, thyromegaly, or carotid bruits. Lungs are clear to auscultation, no focal loss of breath sounds Cardiac exam, Rhythm is regular.. No murmurs, rubs or gallops. Abdominal exam reveals normal bowel sounds, soft non tender, no masses Extremities are nonedematous and both pedal pulses are present Neurologic exam is alert and oriented, lower extremity parapelegia Skin is without bruises or rashes Psychologically is without concerns for anxiety or depression Results & Data Results & Data ([facility]) Vital Signs (Past 12 Hours) Vital Signs Temp Pulse Resp BP Pulse Ox 09/28/20 07:41 97.5 F L 83 18 122/80 95 PG Care Time/CCT Total # of Minutes Spent Total Time Spent with Patient: Total time spent is greater than 50% in coordination of care (as documented) at patient's floor/unit and/or counseling patient: Coding Level of Care Code 74973 Subseq Hosp Care Lvl 3 Diagnoses Paraplegia following spinal cord injury G82.20 Depression F32.9 Hyperlipidemia E78.5 UTI (urinary tract infection) N39.0
[2020-09-28] MEDS: TOBRAMYCIN SULFATE IV SCH (15:28)
[2020-09-28] MEDS: DEXTROSE 5% IV SCH (15:28)
[2020-09-28 15:31] LABS: BUN Creatinine Ratio 19.4 (10-20); Calcium 8.3 mg/dl (8.5-10.1); Est GFR (African American) 83.8 ml/min; Est GFR (Non-African American) 72.3 ml/min; Potassium 4.8 mmol/L (3.5-5.1)
[2020-09-28] MEDS: ENOXAPARIN INJ 40 MG/0.4 ML SYR SQ SCH (20:31)
[2020-09-29] MEDS: ZOLPIDEM TARTRATE 10 MG TAB PO PRN (00:01)
[2020-09-29] MEDS: ACETAMINOPHEN 500 MG TAB PO PRN (00:01)
[2020-09-29] MEDS: MEROPENEM 500 MG in SYRINGE 0 ML IV SCH ×4 (04:11→21:25)
[2020-09-29] MEDS: EUCERIN CR 120 GM JAR EXT SCH ×3 (06:26→21:25)
[2020-09-29] MEDS: PANTOprazole 40 MG TAB PO SCH ×2 (08:49→21:25)
[2020-09-29] MEDS: ASCORBIC ACID 500 MG TAB PO SCH ×2 (08:49→21:25)
[2020-09-29] MEDS: FLUCONAZOLE 100 MG TAB PO SCH ×2 (08:50→21:25)
[2020-09-29] MEDS: oxyCODONE/ACETAMINOPHEN 10-325 TAB PO PRN ×3 (08:54→21:33)
[2020-09-29 11:07] LABS: Est GFR (African American) 115.7 ml/min; Est GFR (Non-African American) 99.9 ml/min
[2020-09-29] MEDS: SENNA 8.6 MG TAB PO SCH (11:40)
[2020-09-29] MEDS: ASPIRIN 81 MG ECTAB PO SCH (11:41)
[2020-09-29] MEDS: MULTIVITAMIN TAB PO SCH (11:41)
[2020-09-29] MEDS: LINACLOTIDE 145 MCG CAPSULE PO SCH (11:41)
[2020-09-29] MEDS: FLUoxetine HCL 20 MG CAP PO SCH (11:42)
[2020-09-29] MEDS: FERROUS SULFATE 325 MG TAB PO SCH (11:42)
--- NOTE | 2020-09-29 15:44 | Pharmacy Report ---
Pharmacy Abx Dose Progress Nt - Date of Service September 29, 2020 - Pharmacy Dosing Scope The patient WAS receiving the following antimicrobial agents per Pharmacy consult: Tobramycin 525 mg IV every 24 hours - Objective Vital Signs (Past 12hrs): Vital Signs Temp Pulse Resp BP BP Pulse Ox 09/29/20 15:25 37.3 C 77 16 110/75 97 09/29/20 08:51 36.3 C L 78 16 134/84 95 Lab Results (24hrs): Laboratory Tests (24 Hours) 09/29/20 09/29/20 02:36 02:35 Creatinine 0.76 D Est Cr Clr Drug Dosing 111.0 Random Tobramycin 4.80 Micro Results: 09/26/20 Unknown Gram Stain - Final Urine,Kidney 09/24/20 20:20 Urine Culture - Final Urine,Straight Cath Pseudomonas aeruginosa Cinda albicans/dubliniensis - Assessment & Plan Assessment 60 year old M receiving Tobramycin for treatment of UTI. Patient has been on Meropenem 500 mg IV Q6h. However most recent urine culture obtained shows Pseudomonas resistant to Meropenem and sensitive only to Tobramycin. Tobramycin 525 mg (7 mg/kg) IV q24h extended interval therapy based on [place] nomogram was started yesterday. So far, patient received one dose of Tobra y at 1500. Random Tobra level obtained 11 hrs after the dose started is as follows: Laboratory Tests 09/29/20 02:35 Random Tobramycin 4.80 Plan Tobramycin: * Patient meets criteria for extended-interval aminoglycoside dosing per the [place] nomogram * Random level of 4.8 mcg/ml drawn 11 hours after start of infusion indicates a dosing interval of every 36 hours. * Changed to Tobramycin 525 mg (7 mg/kg) every 36 hours. * Plan to re-check random level in 3 to 5 days if therapy continues. Pharmacy will continue to follow and will adjust dose/frequency as necessary. Thank you.
--- NOTE | 2020-09-29 19:21 | Hospitalist Progress Note ---
Date of Service September 29, 2020 Assessment & Plan (1) UTI (urinary tract infection): Plan: this is a complex uti, associated with Catheter and stents present on admission, now with resistance to all drugs except for tobramycin, will have tobramycin and ID consult, are also treating cinda that was seen. now found to have multidrug resistant organism, awaiting ID expertise to help define appropriate treatment (2) Paraplegia following spinal cord injury: Plan: Patient has persistent supportive care he has lost function over time due to encephalopathy is looking for rehab placement (3) Depression: Plan: Remains on fluoxetine (4) Hyperlipidemia: Plan: Atorvastatin 20 Plan: 60 y/o M Hx HLD, depression, anemia, paraplegia - requires self catheterization and frequently develops UTIs. The pt was assessed for a UTI in the ER the prior day. Cultures were obtained and he was discharged with antibiotics. He was called back to the ER when the cultures returned + for resistant pseudomonas. He is admitted for IV antibiotics. The pt states he is asymptomatic and has not had fevers or rigors. Labs are notable for an elevated lactic, leukocytosis and mild hypokalemia. 1) Resistant UTI / pseudomonas - placed on Meropenem per initial sensitivities. now new sensitivities are with meropenem resistance. IVF bolus 09/29/20, vitals stable on admission. Since this is multidrug-resistant will have ID evalation. In addition there was yeast noted on infection of Cinda albicans subsequently Diflucan, and was started p.o. Urology has changed out ureteral stent September 26, 2020 2) Hypokalemia - repleted 3) Depression - cont Fluoxetine 4) HLD - cont Statin 5) Anemia -anemia of chronic disease Disposition rehab needs continue IV antibiotics Full code - Lovenox prophylaxis Admission and Anticipated Discharge Date Admission Date: September 24, 2020 Subjective Patient has no complaints or problems no recurrence of hypotension concern for multidrug-resistant organism only sensitive to tobramycin awaiting infectious disease consultation to determine disposition to go to rehab on IV antibiotics is having low-grade temperatures Review of Systems Review of Systems: Mild distress and fatigue no headache, no visual changes no speech or swallowing issues no chest pain, pressure or palpitations no shortness of breath, cough or wheezes no abdominal pain, nausea or vomiting, diarrhea or constipation Because of some persistent urinary changes but is just post procedure no focal joint pain or swelling no back pain, CVA tenderness or radicular pain no bruising, bleeding or rashes no focal signs of weakness or numbness or altered sensation no complaints of anxiety or depression.. Physical Exam Physical Exam: The patient appeared well nourished and normally developed. No active distress although post procedure right now Vital signs as documented. Head exam is normocephalic atraumatic Neck is without JVD, thyromegaly, or carotid bruits. Lungs are clear to auscultation, no focal loss of breath sounds Cardiac exam, Rhythm is regular.. No murmurs, rubs or gallops. Abdominal exam reveals normal bowel sounds, soft non tender, no masses Extremities are nonedematous and both pedal pulses are present Neurologic exam is alert and oriented, lower extremity parapelegia Skin is without bruises or rashes Psychologically is without concerns for anxiety or depression Results & Data Results & Data ([facility]) Vital Signs (Past 12 Hours) Vital Signs Temp Pulse Resp BP BP Pulse Ox 09/29/20 15:25 99.1 F 77 16 110/75 97 09/29/20 08:51 97.3 F L 78 16 134/84 95 PG Care Time/CCT Total # of Minutes Spent Total Time Spent with Patient: Total time spent is greater than 50% in coordination of care (as documented) at patient's floor/unit and/or counseling patient: Coding Level of Care Code 76627 Subseq Hosp Care Lvl 2 Diagnoses UTI (urinary tract infection) N39.0 Paraplegia following spinal cord injury G82.20 Depression F32.9 Hyperlipidemia E78.5
[2020-09-29] MEDS: ENOXAPARIN INJ 40 MG/0.4 ML SYR SQ SCH (21:24)
[2020-09-30] MEDS: SENNA 8.6 MG TAB PO SCH ×3 (00:45→23:26)
[2020-09-30] MEDS: ATORVASTATIN 20 MG TAB PO SCH ×2 (00:45→23:26)
[2020-09-30] MEDS: AMITRIPTYLINE HCL 50 MG TAB PO SCH ×2 (00:45→23:25)
[2020-09-30] MEDS ORDERED: TOBRAMYCIN SULFATE IV SCH (02:00)
[2020-09-30] MEDS ORDERED: DEXTROSE 5% IV SCH (02:00)
[2020-09-30] MEDS: MEROPENEM 500 MG in SYRINGE 0 ML IV SCH ×2 (03:28→10:30)
[2020-09-30] MEDS: oxyCODONE/ACETAMINOPHEN 10-325 TAB PO PRN ×4 (03:30→23:27)
[2020-09-30] MEDS: EUCERIN CR 120 GM JAR EXT SCH ×3 (06:16→23:00)
[2020-09-30] MEDS: ASCORBIC ACID 500 MG TAB PO SCH ×2 (07:53→21:44)
[2020-09-30] MEDS: FLUCONAZOLE 100 MG TAB PO SCH ×2 (07:53→21:45)
[2020-09-30] MEDS: PANTOprazole 40 MG TAB PO SCH ×2 (07:54→21:45)
[2020-09-30 09:19] LABS: Hematocrit (blood only) 37.6 % (42-52); Hemoglobin 11.7 g/dL (14.0-18.0); Mean Corpuscular Hemoglobin 27.5 pg (25-34); Mean Corpuscular Hgb Conc 31.1 g/dL (32-36); Mean Corpuscular Volume 88.3 fL (80-100); Mean Platelet Volume 8.7 fL (7.4-10.4); Platelet Count 687 K/uL (130-400); RDW Coefficient of Variation 19.1 % (11.5-14.5); RDW Standard Deviation 61.7 fL (36.4-46.3); Red Blood Count 4.26 M/uL (4.7-6.1); White Blood Count 10.83 K/uL (4.8-10.8)
[2020-09-30 10:02] LABS: Calcium 8.9 mg/dl (8.5-10.1); Creatinine Clr Calc Pharmacy 109.6 ml/min; Est GFR (African American) 115.1 ml/min; Est GFR (Non-African American) 99.3 ml/min; Magnesium 2.4 mg/dl (1.8-2.4); Potassium 4.3 mmol/L (3.5-5.1)
[2020-09-30] MEDS: MULTIVITAMIN TAB PO SCH (13:52)
[2020-09-30] MEDS: FLUoxetine HCL 20 MG CAP PO SCH (13:53)
[2020-09-30] MEDS: LINACLOTIDE 145 MCG CAPSULE PO SCH (13:53)
[2020-09-30] MEDS: FERROUS SULFATE 325 MG TAB PO SCH (13:54)
[2020-09-30] MEDS: ASPIRIN 81 MG ECTAB PO SCH (13:54)
[2020-09-30] MEDS ORDERED: [UNRECOGNIZED DRUG - OTHER] PRN (15:48)
--- NOTE | 2020-09-30 16:02 | Hospitalist Progress Note ---
Date of Service September 30, 2020 Assessment & Plan (1) UTI (urinary tract infection): Plan: Recurrent UTIs in the setting of neurogenic bladder and obstructive uropathy. - Takes methenamine hippurate as an outpatient for prophylaxis. - Admitted for IV Meropenem based on UC&S from 09/22/20 growing multi-abx resistant pseudomonas. - Repeat urine culture from 09/26 growing Pseudomonas. - S/p ureteral stent exchange with Dr. Mcintosh. - ID consulted on 09/30. Recommend cefiderocol + tobramycin. Note not up yet, so not sure of duration. Working with pharmacy as the cefiderocol is non-formulary. Tobramycin by itself will not provide coverage. - Unclear if ID recommends fungal coverage. Will continue for now. (2) Paraplegia following spinal cord injury: Plan: Working with CM. Likely placement as it has become hard to treat him at home. (3) Depression: Plan: - Continue fluoxetine (4) Hyperlipidemia: Plan: - Continue atorvastatin (5) Anemia: Plan: H&H of 10.8 and 34.6 on admission. Baseline ~ 11-12. - Monitor. - Recheck CBC in AM. -> Still at baseline. (6) GERD (gastroesophageal reflux disease): Plan: - On omeprazole at home. Ordered Pantoprazole 40mg PO BID while inpatient. (7) DVT prophylaxis: Plan: - Lovenox Admission and Anticipated Discharge Date Admission Date: September 24, 2020 Subjective Feeling pretty good overall. No pain, no fevers. Reports no fevers/chills, chest pain, shortness of breath, abdominal pain, nausea, or vomiting. Physical Exam Constitutional: WD/WN, vitals as above Eyes: EOM intact bilaterally; no conjunctival abnormality ENMT: external ear and nose normal, oropharynx normal Neck: trachea midline, no thyromegaly normal visual inspection Respiratory: normal respiratory effort, lungs clear to auscultation no respiratory distress Cardiovascular: RRR, no murmur, no edema Gastrointestinal (Abdomen): Inspection/Auscultation: abdomen normal to inspection; abdomen not distended Musculoskeletal: Extremities: + lower leg abnormality Bilateral (Atrophy) Skin: no rashes, warm and dry Neurologic: moves all extremities and awake Psychiatric: Orientation: alert, oriented to person and cooperative Results & Data Results & Data ([facility]) Vital Signs (Past 12 Hours) Vital Signs Temp Pulse Resp BP BP Pulse Ox 09/30/20 15:37 36.8 C 79 16 124/86 94 09/30/20 07:52 144/83 H 147/90 H 09/30/20 07:44 36.5 C 72 16 163/103 H 172/105 H 96 PG Care Time/CCT Total # of Minutes Spent Total Time Spent with Patient: Total time spent is greater than 50% in coordination of care (as documented) at patient's floor/unit and/or counseling patient: Coding Level of Care Code 27192 Subseq Hosp Care Lvl 3 Diagnoses Paraplegia following spinal cord injury G82.20 Depression F32.9 Hyperlipidemia E78.5 UTI (urinary tract infection) N39.0 Anemia D64.9 GERD (gastroesophageal reflux disease) K21.9 Esophagitis presence: without esophagitis DVT prophylaxis Z29.9 (1) GERD (gastroesophageal reflux disease) Esophagitis presence: without esophagitis Qualified Code(s): K21.9 - Gastro-esophageal reflux disease without esophagitis
[2020-09-30] MEDS: CEFIDEROCOL SULFATE TOSYLATE IV SCH ×2 (17:00→23:31)
[2020-09-30] MEDS: DEXTROSE 5% IV SCH ×2 (17:00→23:31)
[2020-09-30] MEDS: ENOXAPARIN INJ 40 MG/0.4 ML SYR SQ SCH (21:44)
[2020-09-30] MEDS: ACETAMINOPHEN 500 MG TAB PO PRN (21:45)
[2020-10-01] MEDS: EUCERIN CR 120 GM JAR EXT SCH ×3 (06:45→21:24)
[2020-10-01 06:51] LABS: Hematocrit (blood only) 38.8 % (42-52); Hemoglobin 12.2 g/dL (14.0-18.0); Mean Corpuscular Hgb Conc 31.4 g/dL (32-36); Mean Platelet Volume 8.9 fL (7.4-10.4); Platelet Count 724 K/uL (130-400); RDW Coefficient of Variation 19.1 % (11.5-14.5); RDW Standard Deviation 61.9 fL (36.4-46.3); Red Blood Count 4.36 M/uL (4.7-6.1); White Blood Count 9.11 K/uL (4.8-10.8)
[2020-10-01 07:17] LABS: BUN Creatinine Ratio 22.6 (10-20); Calcium 8.9 mg/dl (8.5-10.1); Creatinine Clr Calc Pharmacy 105.5 ml/min; Est GFR (African American) 113.3 ml/min; Est GFR (Non-African American) 97.8 ml/min; Magnesium 2.3 mg/dl (1.8-2.4)
[2020-10-01] MEDS: DEXTROSE 5% IV SCH ×4 (08:58→19:43)
[2020-10-01] MEDS: CEFIDEROCOL SULFATE TOSYLATE IV SCH ×2 (08:58→17:37)
[2020-10-01] MEDS: ASCORBIC ACID 500 MG TAB PO SCH ×2 (09:02→21:21)
[2020-10-01] MEDS: PANTOprazole 40 MG TAB PO SCH ×2 (09:02→21:21)
[2020-10-01] MEDS: FLUCONAZOLE 100 MG TAB PO SCH ×2 (09:02→21:21)
[2020-10-01] MEDS: oxyCODONE/ACETAMINOPHEN 10-325 TAB PO PRN ×3 (09:03→22:11)
--- NOTE | 2020-10-01 09:46 | Hospitalist Progress Note ---
Date of Service October 01, 2020 Assessment & Plan (1) UTI (urinary tract infection): Plan: Recurrent UTIs in the setting of neurogenic bladder and obstructive uropathy. Catheter-associated /complicated UTI as patient has chronic indwelling garrison catheter due to neurogenic bladder. - Takes methenamine hippurate as an outpatient for prophylaxis. - Admitted for IV Meropenem based on UC&S from 09/22/20 growing multi-abx resistant pseudomonas. - Repeat urine culture from 09/26 growing Pseudomonas. - S/p ureteral stent exchange with Dr. Mcintohs. - ID consulted on 09/30. Recommend cefiderocol + tobramycin. Note not up yet, so not sure of duration. Working with pharmacy as the cefiderocol is non-formulary. Tobramycin by itself will not provide coverage but used for synergy (2) Paraplegia following spinal cord injury: Plan: Working with CM. Likely placement as it has become hard to treat him at home. (3) Depression: Plan: - Continue fluoxetine (4) Hyperlipidemia: Plan: - Continue atorvastatin (5) Anemia: Plan: H&H of 10.8 and 34.6 on admission. Baseline ~ 11-12. - Monitor. - Recheck CBC in AM. -> Still at baseline. (6) GERD (gastroesophageal reflux disease): Plan: - On omeprazole at home. Ordered Pantoprazole 40mg PO BID while inpatient. (7) DVT prophylaxis: Plan: - Lovenox (8) Constipation: Plan: pt will have soap suds enema today, fleets with moderate success, now will continue linzess and senna plus q48hr fleets once he is better Admission and Anticipated Discharge Date Admission Date: September 24, 2020 Subjective Feeling pretty good overall. No pain, no fevers. Reports no fevers/chills, chest pain, shortness of breath, abdominal pain, nausea, or vomiting. does complain of constipation, tried fleets, minimal results, will try soap suds enema Review of Systems Review of Systems: Mild distress and fatigue no headache, no visual changes no speech or swallowing issues no chest pain, pressure or palpitations no shortness of breath, cough or wheezes no abdominal pain, nausea or vomiting, diarrhea or constipation Because of some persistent urinary changes but is just post procedure no focal joint pain or swelling no back pain, CVA tenderness or radicular pain no bruising, bleeding or rashes no focal signs of weakness or numbness or altered sensation no complaints of anxiety or depression.. Physical Exam Physical Exam: The patient appeared well nourished and normally developed. No active distress although post procedure right now Vital signs as documented. Head exam is normocephalic atraumatic Neck is without JVD, thyromegaly, or carotid bruits. Lungs are clear to auscultation, no focal loss of breath sounds Cardiac exam, Rhythm is regular.. No murmurs, rubs or gallops. Abdominal exam reveals normal bowel sounds, soft non tender, no masses Extremities are nonedematous and both pedal pulses are present Neurologic exam is alert and oriented, lower extremity parapelegia Skin is without bruises or rashes Psychologically is without concerns for anxiety or depression Results & Data Results & Data ([facility]) Vital Signs (Past 12 Hours) Vital Signs Temp Pulse Resp BP BP Pulse Ox 10/01/20 07:23 97.7 F 70 18 133/84 96 09/30/20 22:03 98.4 F 63 18 138/88 94 PG Care Time/CCT Total # of Minutes Spent Total Time Spent with Patient: Total time spent is greater than 50% in coordination of care (as documented) at patient's floor/unit and/or counseling patient: Coding Level of Care Code 35586 Subseq Hosp Care Lvl 2 Diagnoses UTI (urinary tract infection) N39.0 Paraplegia following spinal cord injury G82.20 Depression F32.9 Hyperlipidemia E78.5 Anemia D64.9 GERD (gastroesophageal reflux disease) K21.9 Esophagitis presence: without esophagitis DVT prophylaxis Z29.9 Constipation K59.00 (1) GERD (gastroesophageal reflux disease) Esophagitis presence: without esophagitis Qualified Code(s): K21.9 - Gastro- esophageal reflux disease without esophagitis
[2020-10-01] MEDS: SENNA 8.6 MG TAB PO SCH (12:54)
[2020-10-01] MEDS: ASPIRIN 81 MG ECTAB PO SCH (12:55)
[2020-10-01] MEDS: FLUoxetine HCL 20 MG CAP PO SCH (12:55)
[2020-10-01] MEDS: MULTIVITAMIN TAB PO SCH (12:55)
[2020-10-01] MEDS: LINACLOTIDE 145 MCG CAPSULE PO SCH (12:56)
[2020-10-01] MEDS: FERROUS SULFATE 325 MG TAB PO SCH (14:34)
[2020-10-01] MEDS ORDERED: SOD PHOSPHATE/SOD BIPHOSPHATE ENEMA 132 ML BTL PR STA (14:51)
[2020-10-01] MEDS: TOBRAMYCIN SULFATE IV SCH ×2 (15:13→19:43)
[2020-10-01] MEDS: ENOXAPARIN INJ 40 MG/0.4 ML SYR SQ SCH (21:20)
[2020-10-02] MEDS: ATORVASTATIN 20 MG TAB PO SCH (00:08)
[2020-10-02] MEDS: AMITRIPTYLINE HCL 50 MG TAB PO SCH (00:08)
[2020-10-02] MEDS: SENNA 8.6 MG TAB PO SCH ×2 (00:08→11:39)
[2020-10-02] MEDS: CEFIDEROCOL SULFATE TOSYLATE IV SCH ×3 (01:22→17:14)
[2020-10-02] MEDS: DEXTROSE 5% IV SCH ×3 (01:22→17:14)
[2020-10-02] MEDS: EUCERIN CR 120 GM JAR EXT SCH ×3 (06:09→22:40)
[2020-10-02 07:42] LABS: Creatinine Clr Calc Pharmacy 127.8 ml/min; Est GFR (African American) 122.7 ml/min; Est GFR (Non-African American) 105.8 ml/min
[2020-10-02] MEDS: ASCORBIC ACID 500 MG TAB PO SCH ×2 (08:20→20:57)
[2020-10-02] MEDS: FLUCONAZOLE 100 MG TAB PO SCH (08:20)
[2020-10-02] MEDS: PANTOprazole 40 MG TAB PO SCH ×2 (08:20→20:58)
[2020-10-02] MEDS: oxyCODONE/ACETAMINOPHEN 10-325 TAB PO PRN ×3 (08:31→22:40)
--- NOTE | 2020-10-02 10:08 | Pharmacy Report ---
Pharmacy Abx Dose Progress Nt - Date of Service October 02, 2020 - Pharmacy Dosing Scope The patient is currently receiving the following antimicrobial agents per Pharmacy consult: Tobramycin 525 mg (7mg/kg) IV every 36 hours Cefiderocol 2g IV Q8H - Objective Vital Signs (Past 12hrs): Vital Signs Temp Pulse Pulse Resp BP BP Pulse Ox 10/02/20 07:30 37.8 C H 65 18 139/83 97 10/01/20 22:18 37 C 66 16 93/46 L 96 Lab Results (24hrs): Laboratory Tests (24 Hours) 10/02/20 10/01/20 06:45 22:32 Creatinine 0.66 Est Cr Clr Drug Dosing 127.8 Random Tobramycin 9.70 Micro Results: 09/26/20 Unknown Gram Stain - Final Urine,Kidney Aerobic and Anaerobic Culture - Final Pseudomonas aeruginosa Cinda albicans/dubliniensis 09/24/20 15:06 Aerobic Blood Culture - Final Blood No growth in Aerobic bottle after 5 days. Anaerobic Blood Culture - Final No growth in Anaerobic bottle after 5 days. 09/24/20 14:55 Aerobic Blood Culture - Final Blood No growth in Aerobic bottle after 5 days. Anaerobic Blood Culture - Final No growth in Anaerobic bottle after 5 days. 09/24/20 20:20 Urine Culture - Final Urine,Straight Cath Pseudomonas aeruginosa Cinda albicans/dubliniensis - Assessment & Plan Assessment 60 year old M, paraplegia, requires self cath with frequent UTIs, receiving IV Tobramycin + Cefiderocol for treatment of MDR Pseudomonas UTI Day # 5 of Tobramycin Day # 3 of Cefiderocol ID Consult Recommends to continue both antibiotics until susceptibilities done for Cefiderocol - [facility] reference lab does not do, pharmacy to follow up with drug waterproof material folder on Saturday to determine how to run susceptibilities. Anticipate 2 weeks of antibiotics - however cannot be stopped until stent and stones removed by Urology. Fluconazole 100mg PO BID, day 8 - DC Plan Tobramycin * Patient meets criteria for extended-interval aminoglycoside dosing per the [place] nomogram * Random level of 9.2 mcg/ml drawn 7 hours after start of infusion indicates a dosing interval of every 36 hours. * Continue 525 mg (7 mg/kg) every 36 hours * Further levels will be ordered as needed by pharmacy Cefiderocol 2g IV Q8H for UTI and CrCl > 60ml/min Pharmacy will continue to follow and will adjust dose/frequency as necessary. Thank you.
[2020-10-02] MEDS: LINACLOTIDE 145 MCG CAPSULE PO SCH (11:38)
[2020-10-02] MEDS: FERROUS SULFATE 325 MG TAB PO SCH (11:38)
[2020-10-02] MEDS: FLUoxetine HCL 20 MG CAP PO SCH (11:38)
[2020-10-02] MEDS: ASPIRIN 81 MG ECTAB PO SCH (11:39)
[2020-10-02] MEDS: MULTIVITAMIN TAB PO SCH (11:39)
--- NOTE | 2020-10-02 17:49 | Hospitalist Progress Note ---
Date of Service October 02, 2020 Assessment & Plan (1) UTI (urinary tract infection): Plan: Recurrent UTIs in the setting of neurogenic bladder and obstructive uropathy. Catheter-associated /complicated UTI as patient has chronic indwelling garrison catheter due to neurogenic bladder. - Takes methenamine hippurate as an outpatient for prophylaxis. - Admitted for IV Meropenem based on UC&S from 09/22/20 growing multi-abx resistant pseudomonas. - Repeat urine culture from 09/26 growing Pseudomonas. - S/p ureteral stent exchange with Dr. Mcintosh. - ID consulted on 09/30. Recommend cefiderocol + tobramycin. Note not up yet, so not sure of duration. Working with pharmacy as the cefiderocol is non-formulary. Tobramycin by itself will not provide coverage but used for synergy. will need to coordinate with case management (2) Paraplegia following spinal cord injury: Plan: Working with CM. Likely placement as it has become hard to treat him at home. (3) Depression: Plan: - Continue fluoxetine (4) Hyperlipidemia: Plan: - Continue atorvastatin (5) Anemia: Plan: H&H of 10.8 and 34.6 on admission. Baseline ~ 11-12. - Monitor. - Recheck CBC in AM. -> Still at baseline. (6) GERD (gastroesophageal reflux disease): Plan: - On omeprazole at home. Ordered Pantoprazole 40mg PO BID while inpatient. (7) DVT prophylaxis: Plan: - Lovenox (8) Constipation: Plan: pt will have soap suds enema today, fleets with moderate success, now will continue linzess and senna plus q48hr fleets once he is better Admission and Anticipated Discharge Date Admission Date: September 24, 2020 Subjective Feeling pretty good overall. No pain, no fevers. Reports no fevers/chills, chest pain, shortness of breath, abdominal pain, nausea, or vomiting. did have good results with enema, pt feels much better Review of Systems Review of Systems: Mild distress and fatigue no headache, no visual changes no speech or swallowing issues no chest pain, pressure or palpitations no shortness of breath, cough or wheezes no abdominal pain, nausea or vomiting, diarrhea or constipation Because of some persistent urinary changes but is just post procedure no focal joint pain or swelling no back pain, CVA tenderness or radicular pain no bruising, bleeding or rashes no focal signs of weakness or numbness or altered sensation no complaints of anxiety or depression.. Physical Exam Physical Exam: The patient appeared well nourished and normally developed. No active distress although post procedure right now Vital signs as documented. Head exam is normocephalic atraumatic Neck is without JVD, thyromegaly, or carotid bruits. Lungs are clear to auscultation, no focal loss of breath sounds Cardiac exam, Rhythm is regular.. No murmurs, rubs or gallops. Abdominal exam reveals normal bowel sounds, soft non tender, no masses Extremities are nonedematous and both pedal pulses are present Neurologic exam is alert and oriented, lower extremity parapelegia Skin is without bruises or rashes Psychologically is without concerns for anxiety or depression Results & Data Results & Data ([facility]) Vital Signs (Past 12 Hours) Vital Signs Temp Pulse Resp BP Pulse Ox 10/02/20 15:43 98.0 F 70 20 123/81 98 10/02/20 07:30 100.0 F H 65 18 139/83 97 PG Care Time/CCT Total # of Minutes Spent Total Time Spent with Patient: Total time spent is greater than 50% in coordination of care (as documented) at patient's floor/unit and/or counseling patient: Coding Level of Care Code 00735 Subseq Hosp Care Lvl 3 Diagnoses UTI (urinary tract infection) N39.0 Paraplegia following spinal cord injury G82.20 Depression F32.9 Hyperlipidemia E78.5 Anemia D64.9 GERD (gastroesophageal reflux disease) K21.9 Esophagitis presence: without esophagitis DVT prophylaxis Z29.9 Constipation K59.00 (1) GERD (gastroesophageal reflux disease) Esophagitis presence: without esophagitis Qualified Code(s): K21.9 - Gastro- esophageal reflux disease without esophagitis
[2020-10-02] MEDS: ENOXAPARIN INJ 40 MG/0.4 ML SYR SQ SCH (20:58)
[2020-10-02] MEDS ORDERED: EUCERIN CR 120 GM JAR EXT PRN (21:43)
[2020-10-03] MEDS: CEFIDEROCOL SULFATE TOSYLATE IV SCH ×4 (00:33→23:46)
[2020-10-03] MEDS: DEXTROSE 5% IV SCH ×5 (00:33→23:46)
[2020-10-03] MEDS: SENNA 8.6 MG TAB PO SCH ×2 (00:34→13:07)
[2020-10-03] MEDS: ATORVASTATIN 20 MG TAB PO SCH ×2 (00:36→23:44)
[2020-10-03] MEDS: AMITRIPTYLINE HCL 50 MG TAB PO SCH ×2 (00:36→23:44)
[2020-10-03] MEDS: ZOLPIDEM TARTRATE 10 MG TAB PO PRN (01:44)
[2020-10-03] MEDS: TOBRAMYCIN SULFATE IV SCH (03:22)
[2020-10-03] MEDS: EUCERIN CR 120 GM JAR EXT SCH ×3 (06:03→20:11)
[2020-10-03 07:18] LABS: Creatinine Clr Calc Pharmacy 106.8 ml/min; Est GFR (African American) 113.9 ml/min; Est GFR (Non-African American) 98.3 ml/min
[2020-10-03] MEDS ORDERED: SOD PHOSPHATE/SOD BIPHOSPHATE ENEMA 132 ML BTL PR SCH (09:00)
[2020-10-03] MEDS: ASCORBIC ACID 500 MG TAB PO SCH ×2 (10:03→20:10)
[2020-10-03] MEDS: LINACLOTIDE 145 MCG CAPSULE PO SCH (10:04)
[2020-10-03] MEDS: FERROUS SULFATE 325 MG TAB PO SCH (10:04)
[2020-10-03] MEDS: PANTOprazole 40 MG TAB PO SCH ×2 (10:04→20:11)
[2020-10-03] MEDS: FLUoxetine HCL 20 MG CAP PO SCH (10:04)
[2020-10-03] MEDS: ASPIRIN 81 MG ECTAB PO SCH (10:04)
[2020-10-03] MEDS: MULTIVITAMIN TAB PO SCH (10:04)
[2020-10-03] MEDS: oxyCODONE/ACETAMINOPHEN 10-325 TAB PO PRN ×3 (11:51→23:47)
--- NOTE | 2020-10-03 17:28 | Hospitalist Progress Note ---
Date of Service October 03, 2020 Assessment & Plan (1) UTI (urinary tract infection): Plan: Recurrent UTIs in the setting of neurogenic bladder and obstructive uropathy. Catheter-associated /complicated UTI as patient has chronic indwelling garrison catheter due to neurogenic bladder. - Takes methenamine hippurate as an outpatient for prophylaxis. - Admitted for IV Meropenem based on UC&S from 09/22/20 growing multi-abx resistant pseudomonas. - Repeat urine culture from 09/26 growing Pseudomonas. - S/p ureteral stent exchange with Dr. Mcintosh. - ID consulted on 09/30. Recommend cefiderocol + tobramycin. ID recommending 2 weeks of IV antibiotic therapy (today valentino day #04/17). Will arrange for ultrasound-guided line. Case management on board to help facilitate placement to SNF for IV antibiotic therapy; however, may be difficult given cost of antibiotic regimen (2) Paraplegia following spinal cord injury: Plan: Working with CM. Likely placement as it has become hard to treat him at home. (3) Depression: Plan: - Continue fluoxetine (4) Hyperlipidemia: Plan: - Continue atorvastatin (5) Anemia: Plan: H&H of 10.8 and 34.6 on admission. Baseline ~ 11-12. - Monitor. - Recheck CBC in AM. -> Still at baseline. (6) GERD (gastroesophageal reflux disease): Plan: - On omeprazole at home. Ordered Pantoprazole 40mg PO BID while inpatient. (7) DVT prophylaxis: Plan: - Lovenox (8) Constipation: Plan: Now with loose stools following multiple soapsuds enemas, Senokot routine, and resumption of his Linzess (antibiotic therapy may be contributing to thisantibiotic associated diarrhea). Hold Senokot and further enemas Continue Linzess for now. If continues to have loose stools, will hold Linzess and consider stool for C. difficile Admission and Anticipated Discharge Date Admission Date: September 24, 2020 Subjective Patient seen on daily rounds today. Hospitalized 09/24 with multidrug-resistant UTI/obstructive uropathy. Patient is a paraplegic. Has neurogenic bladder with indwelling Garrison catheter in addition to multiple ureteral stones and ureteral stents. Ureteral stent exchanged on 09/13. Presented to the ED on 09/22 with urinary symptoms and constipation. At that time, WBC count was 16.3 and his urine was grossly infected. Was discharged with cefdinir and told to take MiraLAX. Was notified to return to the ED on 09/24 for admission due to multidrug- resistant UTIPseudomonas (sensitive to only Merrem). Patient placed on Merrem. Had stent exchange on 09/26. Aspiration done at that time and his subsequent follow-up culture now showing Pseudomonas that is resistant to Merrem and sensitive only to Ceftolozane. On Ceftolozane and tobramycin (for synergy). ID on board. Recommending 2 weeks of IV antibiotic therapy from a stent exchange. Today valentino #2/14 of IV antibiotic therapy. Lives with his who recently underwent knee surgery and unable to care for him. Awaiting placement to SNF for IV antibiotic therapy. Is complaining of loose stools. Receiving fleets enemas every 8 hours along with Senokot twice daily and his Linzess. Otherwise, denies fevers, chills, chest pain, shortness of breath, abdominal pain, nausea, vomiting, symptoms. Review of Systems Review of Systems: All systems reviewed and are unremarkable except as noted in HPI and below Denies fevers, chills, headache, nasal congestion, sore throat, cough, chest pain, shortness of breath, abdominal pain, nausea, vomiting, dysuria, hematuria, frequency, skin lesions or rashes. Physical Exam Physical Exam: General: Resting comfortably in his hospital bed. Does not appear ill or toxic Neck: No JVD. Negative hepatojugular reflex Cardiac: RRR without M/G/R Lungs: CTA without W/R/R Abdomen: Normoactive X4. Soft and nontender in all quadrants. Extremities: No peripheral clubbing cyanosis or edema Neuro: A&O X4 cranial nerves II through XII are grossly intact no focal neuro deficits Skin: No obvious skin lesions or rashes Results & Data Results & Data ([facility]) Vital Signs (Past 12 Hours) Vital Signs Temp Pulse Resp BP Pulse Ox 10/03/20 08:01 36.4 C L 68 16 147/84 H 100 Laboratory Results 10/01/20 06:23 10/03/20 05:40 PG Care Time/CCT Total # of Minutes Spent Total Time Spent with Patient: Total time spent is greater than 50% in coordination of care (as documented) at patient's floor/unit and/or counseling patient: Coding [place] [address] Subseq Hosp Care Lvl 2 Patient Type Established History Detailed Exam Detailed Medical Decision Making Moderate Complexity Diagnoses UTI (urinary tract infection) N39.0 Paraplegia following spinal cord injury G82.20 Depression F32.9 Hyperlipidemia E78.5 Anemia D64.9 GERD (gastroesophageal reflux disease) K21.9 Esophagitis presence: without esophagitis DVT prophylaxis Z29.9 Constipation K59.00 (1) GERD (gastroesophageal reflux disease) Esophagitis presence: without esophagitis Qualified Code(s): K21.9 - Gastro- esophageal reflux disease without esophagitis
[2020-10-03] MEDS: ENOXAPARIN INJ 40 MG/0.4 ML SYR SQ SCH (20:10)
[2020-10-03] MEDS: ACETAMINOPHEN 500 MG TAB PO PRN (22:40)
[2020-10-04] MEDS: ZOLPIDEM TARTRATE 10 MG TAB PO PRN (01:52)
[2020-10-04] MEDS: EUCERIN CR 120 GM JAR EXT SCH ×3 (05:05→21:33)
[2020-10-04] MEDS: DEXTROSE 5% IV SCH ×3 (07:52→15:34)
[2020-10-04] MEDS: CEFIDEROCOL SULFATE TOSYLATE IV SCH ×2 (07:52→15:34)
[2020-10-04] MEDS: ASCORBIC ACID 500 MG TAB PO SCH ×2 (07:53→21:43)
[2020-10-04] MEDS: oxyCODONE/ACETAMINOPHEN 10-325 TAB PO PRN ×3 (07:53→21:31)
[2020-10-04] MEDS: PANTOprazole 40 MG TAB PO SCH ×2 (07:54→21:44)
[2020-10-04 08:47] LABS: Basophils # (auto) 0.27 K/uL (0-0.2); Basophils % (auto) 2.8 %; Eosinophils # (auto) 0.71 K/uL (0-0.5); Eosinophils % (auto) 7.4 %; Hematocrit (blood only) 36.4 % (42-52); Hemoglobin 11.5 g/dL (14.0-18.0); Immature Granulocytes # (auto) 0.02 K/uL (0.00-0.02); Immature Granulocytes % (auto) 0.2 %; Lymphocytes # (auto) 1.47 K/uL (1.2-3.4); Lymphocytes % (auto) 15.3 %; Mean Corpuscular Hemoglobin 28.3 pg (25-34); Mean Corpuscular Hgb Conc 31.6 g/dL (32-36); Mean Corpuscular Volume 89.7 fL (80-100); Monocytes # (auto) 0.75 K/uL (0.11-0.59); Monocytes % (auto) 7.8 %; Neutrophils % (auto) 66.5 %; Platelet Count 740 K/uL (130-400); RDW Standard Deviation 61.9 fL (36.4-46.3); Red Blood Count 4.06 M/uL (4.7-6.1); White Blood Count 9.62 K/uL (4.8-10.8)
[2020-10-04 09:12] LABS: BUN Creatinine Ratio 17.7 (10-20); Calcium 8.8 mg/dl (8.5-10.1); Creatinine Clr Calc Pharmacy 94.8 ml/min; Est GFR (African American) 108.5 ml/min; Est GFR (Non-African American) 93.6 ml/min; Magnesium 2.4 mg/dl (1.8-2.4); Potassium 4.2 mmol/L (3.5-5.1)
[2020-10-04] MEDS: FLUoxetine HCL 20 MG CAP PO SCH (11:54)
[2020-10-04] MEDS: LINACLOTIDE 145 MCG CAPSULE PO SCH (11:54)
[2020-10-04] MEDS: FERROUS SULFATE 325 MG TAB PO SCH (11:54)
[2020-10-04] MEDS: ASPIRIN 81 MG ECTAB PO SCH (11:54)
[2020-10-04] MEDS: MULTIVITAMIN TAB PO SCH (11:54)
[2020-10-04] MEDS: TOBRAMYCIN SULFATE IV SCH (15:33)
--- NOTE | 2020-10-04 17:36 | Hospitalist Progress Note ---
Date of Service October 04, 2020 Assessment & Plan (1) UTI (urinary tract infection): Plan: Recurrent UTIs in the setting of neurogenic bladder and obstructive uropathy. Catheter-associated /complicated UTI as patient has chronic indwelling garrison catheter due to neurogenic bladder. - Takes methenamine hippurate as an outpatient for prophylaxis. - Admitted for IV Meropenem based on UC&S from 09/22/20 growing multi-abx resistant pseudomonas. - Repeat urine culture from 09/26 growing Pseudomonas. - S/p ureteral stent exchange with Dr. Mcintosh. - ID consulted on 09/30. Recommend cefiderocol + tobramycin. ID recommending 2 weeks of IV antibiotic therapy (today valentino day #05/15). -Patient has peripheral ultrasound-guided IV - Case management on board to help facilitate placement to SNF for IV antibiotic therapy; however, may be difficult given cost of antibiotic regimen (2) Paraplegia following spinal cord injury: Plan: Working with CM. Likely placement as it has become hard to treat him at home. (3) Depression: Plan: - Continue fluoxetine (4) Hyperlipidemia: Plan: - Continue atorvastatin (5) Anemia: Plan: H&H of 10.8 and 34.6 on admission. Baseline ~ 11-12. - Monitor. - Recheck CBC in AM. -> Still at baseline. (6) GERD (gastroesophageal reflux disease): Plan: - On omeprazole at home. Ordered Pantoprazole 40mg PO BID while inpatient. (7) DVT prophylaxis: Plan: - Lovenox (8) Constipation: Plan: Loose stools have since resolved with de-escalation of bowel regimen. Continue Linzess Continue Linzess for now. If continues to have loose stools, will hold Linzess and consider stool for C. difficile Plan: -Awaiting placement for IV antibiotic therapy. CM on board -Plan of care will be discussed with Dr. Richey. Further orders as warranted. Admission and Anticipated Discharge Date Admission Date: September 24, 2020 Subjective Patient seen on daily rounds today. Vocalizes no complaints or concerns. Remains on Cefiderocal + tobramycin for multidrug-resistant Pseudomonas UTI. Is s/p stent exchange. ID on board for antibiotic guidance. Now has ultrasound-guided peripheral IV Case management on board as patient will require short-term SNF for IV antibiotic therapy Loose stools have since resolved with de-escalation of bowel regimen that was initiated for constipation/excessive stool burden that was noted on admission. Review of Systems Review of Systems: All systems reviewed and are unremarkable except as noted in HPI and below Denies fevers, chills, headache, nasal congestion, sore throat, cough, chest pain, shortness of breath, abdominal pain, nausea, vomiting, dysuria, hematuria, frequency, skin lesions or rashes. Physical Exam Physical Exam: General: Resting comfortably in his hospital bed. Does not appear ill or toxic Neck: No JVD. Negative hepatojugular reflex Cardiac: RRR without M/G/R Lungs: CTA without W/R/R Abdomen: Normoactive X4. Soft and nontender in all quadrants. Extremities: No peripheral clubbing cyanosis or edema Neuro: A&O X4 cranial nerves II through XII are grossly intact no focal neuro deficits Skin: No obvious skin lesions or rashes Results & Data Results & Data ([facility]) Vital Signs (Past 12 Hours) Vital Signs Temp Pulse Resp BP Pulse Ox 10/04/20 15:23 37.4 C 71 20 132/85 99 10/04/20 08:00 36.5 C 68 18 161/90 H 99 Laboratory Results 10/04/20 08:29 10/04/20 08:29 PG Care Time/CCT Total # of Minutes Spent Total Time Spent with Patient: Total time spent is greater than 50% in coordination of care (as documented) at patient's floor/unit and/or counseling patient: Coding [place] [address] Subseq Hosp Care Lvl 1 Patient Type Established History Problem Focused Exam Problem Focused Medical Decision Making Straight Forward Diagnoses UTI (urinary tract infection) N39.0 Paraplegia following spinal cord injury G82.20 Depression F32.9 Hyperlipidemia E78.5 Anemia D64.9 GERD (gastroesophageal reflux disease) K21.9 Esophagitis presence: without esophagitis DVT prophylaxis Z29.9 Constipation K59.00 (1) GERD (gastroesophageal reflux disease) Esophagitis presence: without esophagitis Qualified Code(s): K21.9 - Gastro- esophageal reflux disease without esophagitis
[2020-10-04] MEDS: ENOXAPARIN INJ 40 MG/0.4 ML SYR SQ SCH (21:44)
[2020-10-05] MEDS: CEFIDEROCOL SULFATE TOSYLATE IV SCH ×3 (00:38→16:11)
[2020-10-05] MEDS: DEXTROSE 5% IV SCH ×3 (00:38→16:11)
[2020-10-05 00:47] LABS: Creatinine Clr Calc Pharmacy 80.4 ml/min; Est GFR (African American) 89.6 ml/min; Est GFR (Non-African American) 77.3 ml/min
[2020-10-05] MEDS: AMITRIPTYLINE HCL 50 MG TAB PO SCH ×2 (01:09→23:35)
[2020-10-05] MEDS: ATORVASTATIN 20 MG TAB PO SCH ×2 (01:09→23:35)
[2020-10-05] MEDS: ZOLPIDEM TARTRATE 10 MG TAB PO PRN ×2 (01:10→23:35)
--- NOTE | 2020-10-05 02:20 | Pharmacy Report ---
Pharmacy Abx Dose Short Note - Date of Service October 05, 2020 - Assessment & Plan Assessment 60 year old M receiving cefiderocol and tobramycin for treatment of CAUTI, growing MDR Pseudomonas. Antibiotic regimen per ID. Day # 8 of antimicrobial therapy. Plan Tobramycin * Random level obtained ~8.75 hrs after last dose and resulted as 7.7 * Per [facility] - current dosing interval of q36 hours remains appropriate Cefiderocol * 2 g IV q8h remains appropriate based on indication/renal function Pharmacy will continue to follow and will adjust dose/frequency as necessary. Thank you.
[2020-10-05] MEDS: EUCERIN CR 120 GM JAR EXT SCH ×3 (06:27→21:25)
[2020-10-05] MEDS: oxyCODONE/ACETAMINOPHEN 10-325 TAB PO PRN ×3 (09:22→21:43)
[2020-10-05] MEDS: PANTOprazole 40 MG TAB PO SCH ×2 (09:28→21:24)
[2020-10-05] MEDS: ASCORBIC ACID 500 MG TAB PO SCH ×2 (09:28→21:24)
[2020-10-05] MEDS: MULTIVITAMIN TAB PO SCH (11:44)
[2020-10-05] MEDS: FERROUS SULFATE 325 MG TAB PO SCH (11:44)
[2020-10-05] MEDS: FLUoxetine HCL 20 MG CAP PO SCH (11:44)
[2020-10-05] MEDS: LINACLOTIDE 145 MCG CAPSULE PO SCH (11:44)
[2020-10-05] MEDS: ASPIRIN 81 MG ECTAB PO SCH (11:44)
--- NOTE | 2020-10-05 16:07 | Hospitalist Progress Note ---
Date of Service October 05, 2020 Assessment & Plan (1) UTI (urinary tract infection): Plan: Recurrent UTIs in the setting of neurogenic bladder and obstructive uropathy. Catheter-associated /complicated UTI as patient has chronic indwelling garrison catheter due to neurogenic bladder. - Takes methenamine hippurate as an outpatient for prophylaxis. - Admitted for IV Meropenem based on UC&S from 09/22/20 growing multi-abx resistant pseudomonas. - Repeat urine culture from 09/26 growing Pseudomonas. - S/p ureteral stent exchange with Dr. Mcintosh 09/26/20. - ID consulted on 09/30. Recommend cefiderocol + tobramycin. ID recommending 2 weeks of IV antibiotic therapy (today valentino day #06/15). - Patient has peripheral ultrasound-guided IV - Case management on board to help facilitate placement to SNF for IV antibiotic therapy; however, may be difficult given cost of antibiotic regimen - advised against covid vaccine for now. I do encourage that the patient be vaccination just not while he is being treated for an active infection as the vaccine can trigger an immune response causing F/C, JACKSON, myalgias/arthralgias N/V, etc. Would not know if it were the vaccine vs suboptimal treatment of active infection nurse reports mild hematuria. Will hold ASA for now. continue lovenox for dvt prophylaxis (will stop if not clearing or getting worse). pt with recent uretero stent exchange. Hold off on bladder irrigation given UTI/recent stent exchange. H/H stable. (2) Paraplegia following spinal cord injury: Plan: Working with CM. Likely placement as it has become hard to treat him at home. (3) Depression: Plan: - Continue fluoxetine (4) Hyperlipidemia: Plan: - Continue atorvastatin (5) Anemia: Plan: stable (6) GERD (gastroesophageal reflux disease): Plan: - On omeprazole at home. Ordered Pantoprazole 40mg PO BID while inpatient. (7) DVT prophylaxis: Plan: - Lovenox (8) Constipation: Plan: Loose stools have since resolved with de-escalation of bowel regimen. Continue Linzess Continue Linzess for now. If continues to have loose stools, will hold Linzess and consider stool for C. difficile Plan: -Awaiting placement for IV antibiotic therapy. CM on board -Plan of care will be discussed with Dr. Richey. Further orders as warranted. Admission and Anticipated Discharge Date Admission Date: September 24, 2020 Subjective Patient seen on daily rounds today. Vocalizes no complaints or concerns. Having daily BMs. Loose stools improved with discontinuation of bowel regimen. Now back on Linzess. Requesting Covid vaccine. Denies fevers, chills, chest pain, shortness of breath, abdominal pain, nausea or vomiting. Nursing reports mild hematuria x days (see in garrison). No clots. Review of Systems Review of Systems: All systems reviewed and are unremarkable except as noted in HPI and below Denies fevers, chills, headache, nasal congestion, sore throat, cough, chest pain, shortness of breath, abdominal pain, nausea, vomiting, dysuria, hematuria, frequency, skin lesions or rashes. Physical Exam Physical Exam: General: Resting comfortably in his hospital bed. Does not appear ill or toxic Neck: No JVD. Negative hepatojugular reflex Cardiac: RRR without M/G/R Lungs: CTA without W/R/R Abdomen: Normoactive X4. Soft and nontender in all quadrants. Extremities: No peripheral clubbing cyanosis or edema Neuro: A&O X4 cranial nerves II through XII are grossly intact no focal neuro deficits Skin: No obvious skin lesions or rashes Results & Data Results & Data ([facility]) Vital Signs (Past 12 Hours) Vital Signs Temp Pulse Resp BP Pulse Ox 10/05/20 14:00 36.8 C 75 20 133/78 95 10/05/20 07:00 36.6 C 75 20 147/95 H 97 Laboratory Results 10/04/20 08:29 10/05/20 00:13 PG Care Time/CCT Total # of Minutes Spent Total Time Spent with Patient: Total time spent is greater than 50% in coordination of care (as documented) at patient's floor/unit and/or counseling patient: Coding [place] [address] Subseq Hosp Care Lvl 1 Patient Type Established History Problem Focused Exam Problem Focused Medical Decision Making Straight Forward Diagnoses UTI (urinary tract infection) N39.0 Paraplegia following spinal cord injury G82.20 Depression F32.9 Hyperlipidemia E78.5 Anemia D64.9 GERD (gastroesophageal reflux disease) K21.9 Esophagitis presence: without esophagitis DVT prophylaxis Z29.9 Constipation K59.00 (1) GERD (gastroesophageal reflux disease) Esophagitis presence: without esophagitis Qualified Code(s): K21.9 - Gastro- esophageal reflux disease without esophagitis
[2020-10-05] MEDS: ENOXAPARIN INJ 40 MG/0.4 ML SYR SQ SCH (21:24)
[2020-10-06] MEDS: DEXTROSE 5% IV SCH ×5 (00:10→23:42)
[2020-10-06] MEDS: CEFIDEROCOL SULFATE TOSYLATE IV SCH ×4 (00:10→23:42)
[2020-10-06] MEDS: TOBRAMYCIN SULFATE IV SCH (03:15)
[2020-10-06] MEDS: EUCERIN CR 120 GM JAR EXT SCH ×3 (05:57→21:44)
[2020-10-06] MEDS: PANTOprazole 40 MG TAB PO SCH ×2 (08:55→21:44)
[2020-10-06] MEDS: ASCORBIC ACID 500 MG TAB PO SCH ×2 (08:55→21:44)
[2020-10-06] MEDS: oxyCODONE/ACETAMINOPHEN 10-325 TAB PO PRN ×3 (09:05→21:42)
--- NOTE | 2020-10-06 10:04 | Hospitalist Progress Note ---
Date of Service October 06, 2020 Assessment & Plan (1) UTI (urinary tract infection): Plan: Recurrent UTIs in the setting of neurogenic bladder and obstructive uropathy. Catheter-associated /complicated UTI as patient has chronic indwelling garrison catheter due to neurogenic bladder. - Takes methenamine hippurate as an outpatient for prophylaxis. - Admitted for IV Meropenem based on UC&S from 09/22/20 growing multi-abx resistant pseudomonas. - Repeat urine culture from 09/26 growing Pseudomonas. - S/p ureteral stent exchange with Dr. Mcintosh 09/26/20. - ID consulted on 09/30. Recommend cefiderocol + tobramycin. ID recommending 2 weeks of IV antibiotic therapy (today valentino day #5/14 of combination therapy). ID recommending stopping tobramycin and using single agent Cefiderocol (which was started 09/30 marking today #6 of treatment) -will repeat a UA with C&S in 48 hours to trend. FU labs in am to help trend is losing grasp on infection with de-escalation in coverage - Patient has peripheral ultrasound-guided IV - Case management on board to help facilitate placement to SNF for IV antibiotic therapy; however, may be difficult given cost of antibiotic treatment. May end up completing abx here - advised against covid vaccine for now. I do encourage that the patient be vaccination just not while he is being treated for an active infection as the vaccine can trigger an immune response causing F/C, JACKSON, myalgias/arthralgias N/V, etc. Would not know if it were the vaccine vs suboptimal treatment of active infection nurse reports mild hematuria. ASA helf. hold lovonex and use ADALI hose for dvt prophylaxis. pt with recent uretero stent exchange. Hold off on bladder irrigation given UTI/recent stent exchange. No clots noted. H/H stable. (2) Paraplegia following spinal cord injury: Plan: Working with CM. Likely placement as it has become hard to treat him at home. (3) Depression: Plan: - Continue fluoxetine (4) Hyperlipidemia: Plan: - Continue atorvastatin (5) Anemia: Plan: stable (6) GERD (gastroesophageal reflux disease): Plan: - On omeprazole at home. Ordered Pantoprazole 40mg PO BID while inpatient. (7) DVT prophylaxis: Plan: - Lovenox (8) Constipation: Plan: Loose stools have since resolved with de-escalation of bowel regimen. Continue Linzess Continue Linzess for now. If continues to have loose stools, will hold Linzess and consider stool for C. difficile Plan: -Awaiting placement for IV antibiotic therapy. CM on board -Plan of care will be discussed with Dr. Richey. Further orders as warranted. Admission and Anticipated Discharge Date Admission Date: September 24, 2020 Subjective PAtient seen on daily rounds today which valentino Day #5-6 of IV abx (14 days today) On Cefiderocol + tobramycin as outlined by ID. notifed today by pharmacy that the plan was for combination therapy until further sensitivities on Cefiderocol ALONE could be obtained (as not idea using both agents). Apparently- sensitivity on single agent Cefiderocol can not be performed here or at any outsourced lab. 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 ID updated and recommended stopping the tobramycin and continuing to monitor patient. Review of Systems Review of Systems: All systems reviewed and are unremarkable except as noted i n HPI and below Denies fevers, chills, headache, nasal congestion, sore throat, cough, chest pain, shortness of breath, abdominal pain, nausea, vomiting, dysuria, hematuria, frequency, skin lesions or rashes. Physical Exam Physical Exam: General: Resting comfortably in his hospital bed. Does not appear ill or toxic Neck: No JVD. Negative hepatojugular reflex Cardiac: RRR without M/G/R Lungs: CTA without W/R/R Abdomen: Normoactive X4. Soft and nontender in all quadrants. Extremities: No peripheral clubbing cyanosis or edema Neuro: A&O X4 cranial nerves II through XII are grossly intact no focal neuro deficits Skin: No obvious skin lesions or rashes Results & Data Results & Data ([facility]) Vital Signs (Past 12 Hours) Vital Signs Temp Pulse Resp BP Pulse Ox 10/06/20 07:35 36.9 C 78 20 150/90 H 96 10/05/20 23:59 36.6 C 77 16 142/84 H 95 Laboratory Results 10/04/20 08:29 10/05/20 00:13 PG Care Time/CCT Total # of Minutes Spent Total Time Spent with Patient: Total time spent is greater than 50% in coordination of care (as documented) at patient's floor/unit and/or counseling patient: Coding [place] [address] Subseq Hosp Care Lvl 2 Patient Type Established History Expanded Problem Focused Exam Expanded Problem Focused Medical Decision Making Moderate Complexity Diagnoses UTI (urinary tract infection) N39.0 Paraplegia following spinal cord injury G82.20 Depression F32.9 Hyperlipidemia E78.5 Anemia D64.9 GERD (gastroesophageal reflux disease) K21.9 Esophagitis presence: without esophagitis DVT prophylaxis Z29.9 Constipation K59.00 (1) GERD (gastroesophageal reflux disease) Esophagitis presence: without esophagitis Qualified Code(s): K21.9 - Gastro- esophageal reflux disease without esophagitis
[2020-10-06] MEDS: FERROUS SULFATE 325 MG TAB PO SCH (11:40)
[2020-10-06] MEDS: LINACLOTIDE 145 MCG CAPSULE PO SCH (11:40)
[2020-10-06] MEDS: FLUoxetine HCL 20 MG CAP PO SCH (11:40)
[2020-10-06] MEDS: MULTIVITAMIN TAB PO SCH (11:40)
[2020-10-06 15:02] LABS: Appearance Urine Cloudy (Clear); Bacteria Urine Automated Negative (Negative); Bilirubin Urine Negative (Negative); Blood Urine 3+ (Negative); Color Urine Red; Epithelial Cell Urine Auto >30 /lpf (0-5); Glucose Urine UA Negative (Negative); Ketones Urine Negative (Negative); Leukocyte Esterase Urine 3+ (Negative); Nitrite Urine Negative (Negative); Protein Urine 2+ (Negative); Specific Gravity Urine 1.007 (1.000-1.030); Urobilinogen Urine Negative (Negative); WBC Urine Automated >30 /hpf (0-5)
[2020-10-06 15:29] LABS: Cast Urine Automated 0 /lpf (0-5)
[2020-10-06] MEDS: ATORVASTATIN 20 MG TAB PO SCH (23:41)
[2020-10-06] MEDS: ZOLPIDEM TARTRATE 10 MG TAB PO PRN (23:41)
[2020-10-06] MEDS: AMITRIPTYLINE HCL 50 MG TAB PO SCH (23:41)
[2020-10-07 05:50] LABS: Basophils % (auto) 2.4 %; Eosinophils # (auto) 1.21 K/uL (0-0.5); Eosinophils % (auto) 9.6 %; Hematocrit (blood only) 31.7 % (42-52); Hemoglobin 9.9 g/dL (14.0-18.0); Immature Granulocytes # (auto) 0.04 K/uL (0.00-0.02); Immature Granulocytes % (auto) 0.3 %; Lymphocytes # (auto) 2.71 K/uL (1.2-3.4); Lymphocytes % (auto) 21.4 %; Mean Corpuscular Hemoglobin 27.7 pg (25-34); Mean Corpuscular Hgb Conc 31.2 g/dL (32-36); Mean Corpuscular Volume 88.5 fL (80-100); Monocytes # (auto) 1.18 K/uL (0.11-0.59); Monocytes % (auto) 9.3 %; Neutrophils # (auto) 7.23 K/uL (1.4-6.5); Platelet Count 578 K/uL (130-400); RDW Standard Deviation 62.1 fL (36.4-46.3); Red Blood Count 3.58 M/uL (4.7-6.1); White Blood Count 12.67 K/uL (4.8-10.8)
[2020-10-07] MEDS: oxyCODONE/ACETAMINOPHEN 10-325 TAB PO PRN ×4 (05:56→22:58)
[2020-10-07] MEDS: EUCERIN CR 120 GM JAR EXT SCH ×3 (05:56→19:26)
[2020-10-07 06:23] LABS: BUN Creatinine Ratio 27.1 (10-20); Calcium 8.3 mg/dl (8.5-10.1); Creatinine Clr Calc Pharmacy 105.5 ml/min; Est GFR (African American) 113.3 ml/min; Est GFR (Non-African American) 97.8 ml/min; Magnesium 2.5 mg/dl (1.8-2.4); Potassium 4.3 mmol/L (3.5-5.1)
[2020-10-07] MEDS: PANTOprazole 40 MG TAB PO SCH ×2 (07:38→19:26)
[2020-10-07] MEDS: ASCORBIC ACID 500 MG TAB PO SCH ×2 (07:38→19:25)
[2020-10-07] MEDS: DEXTROSE 5% IV SCH ×3 (07:41→23:01)
[2020-10-07] MEDS: CEFIDEROCOL SULFATE TOSYLATE IV SCH ×3 (07:41→23:01)
[2020-10-07] MEDS: ACETAMINOPHEN 500 MG TAB PO PRN ×2 (07:50→19:26)
[2020-10-07] MEDS: FLUoxetine HCL 20 MG CAP PO SCH (11:12)
[2020-10-07] MEDS: FERROUS SULFATE 325 MG TAB PO SCH (11:13)
[2020-10-07] MEDS: LINACLOTIDE 145 MCG CAPSULE PO SCH (11:13)
[2020-10-07] MEDS: MULTIVITAMIN TAB PO SCH (11:13)
[2020-10-07] MEDS ORDERED: POLYETHYLENE (MIRALAX) 17 GM PACK PO PRN (18:22)
--- NOTE | 2020-10-07 18:27 | Hospitalist Progress Note ---
Date of Service October 07, 2020 Assessment & Plan (1) UTI (urinary tract infection): Plan: Recurrent UTIs in the setting of neurogenic bladder and obstructive uropathy. Catheter-associated /complicated UTI as patient has chronic indwelling garrison catheter due to neurogenic bladder. - Takes methenamine hippurate as an outpatient for prophylaxis. - Admitted for IV Meropenem based on UC&S from 09/22/20 growing multi-abx resistant pseudomonas. - Repeat urine culture from 09/26 growing Pseudomonas. - S/p ureteral stent exchange with Dr. Mcintosh 09/26/20. - ID consulted on 09/30. Recommend cefiderocol + tobramycin. ID recommending 2 weeks of IV antibiotic therapy (today valentino day #6/14 of combination therapy). ID recommending stopping tobramycin and using single agent Cefiderocol (which was started 09/30 marking today #7 of treatment) -Repeat urinalysis with culture was dated for 48 hours following discontinuation of cefiderocol to help gauge continued improvement; however, inadvertently obtained today and grossly infected. In addition, his white blood cell count is up trending. His ESR and CRP are elevated (unsure if these are uptrending or downtrending as not done on admission) -We will continue current treatment plan and repeat labs tomorrow. If losing grasp of infection, will reach back out to ID for recommendations. - Patient has peripheral ultrasound-guided IV - Case management on board to help facilitate placement to SNF for IV antibiotic therapy; however, may be difficult given cost of antibiotic treatment. May end up completing abx here - advised against covid vaccine for now. I do encourage that the patient be vaccination just not while he is being treated for an active infection as the vaccine can trigger an immune response causing F/C, JACKSON, myalgias/arthralgias N/V, etc. Would not know if it were the vaccine vs suboptimal treatment of active infection nurse reports mild hematuria. ASA helf. hold lovonex and use ADALI hose for dvt prophylaxis. pt with recent uretero stent exchange. Hold off on bladder irrigation given UTI/recent stent exchange. No clots noted. H/H stable. (2) Paraplegia following spinal cord injury: Plan: Working with CM. Likely placement as it has become hard to treat him at home. (3) Depression: Plan: - Continue fluoxetine (4) Hyperlipidemia: Plan: - Continue atorvastatin (5) Anemia: Plan: stable (6) GERD (gastroesophageal reflux disease): Plan: - On omeprazole at home. Ordered Pantoprazole 40mg PO BID while inpatient. (7) DVT prophylaxis: Plan: - Lovenox (8) Constipation: Plan: Loose stools have since resolved with de-escalation of bowel regimen. Continue Linzess Continue Linzess for now. If continues to have loose stools, will hold Linzess and consider stool for C. difficile Plan: -Placement on hold for now until follow-up labs can be done to help gauge if leukocytosis uptrending or downtrending given de-escalation of coverage -Plan of care will be discussed with Dr. Richey. Further orders as warranted. Admission and Anticipated Discharge Date Admission Date: September 24, 2020 Subjective Patient seen on daily rounds today. Remains in house for IV antibiotic therapy for multidrug-resistant UTI. ID on board and recommended to pharmacy to DC tobramycin. This was done yesterday. Unfortunately, no sensitivities to cefiderocol (cannot be done as per lab/outsource lab/drug company) and ID recommended discontinuation of tobramycin and following patient clinically. Overall, patient feels well. He denies fevers, chills, chest pain, shortness of breath, abdominal pain, nausea or vomiting. No abdominal pain. No flank pain. His white blood cell count is up trending slightly and is 12.67 today. I did order a repeat urinalysis with culture that was supposed to be done tomorrow; however, inadvertently was collected prematurely. It is grossly infected as it is both nitrite and leukocyte esterase positive. Review of Systems Review of Systems: All systems reviewed and are unremarkable except as noted in HPI and below Denies fevers, chills, headache, nasal congestion, sore throat, cough, chest pain, shortness of breath, abdominal pain, nausea, vomiting, dysuria, hematuria, frequency, skin lesions or rashes. Physical Exam Physical Exam: General: Resting comfortably in his hospital bed. Does not appear ill or toxic Neck: No JVD. Negative hepatojugular reflex Cardiac: RRR without M/G/R Lungs: CTA without W/R/R Abdomen: Normoactive X4. Soft and nontender in all quadrants. Extremities: No peripheral clubbing cyanosis or edema Neuro: A&O X4 cranial nerves II through XII are grossly intact no focal neuro deficits Skin: No obvious skin lesions or rashes Results & Data Results & Data ([facility]) Vital Signs (Past 12 Hours) Vital Signs Temp Pulse Resp BP Pulse Ox 10/07/20 16:26 36.9 C 72 16 120/72 95 10/07/20 07:40 36.7 C 70 16 118/75 94 Laboratory Results 10/07/20 05:16 10/07/20 05:16 ESR : 60 CRP:0.84 PG Care Time/CCT Total # of Minutes Spent Total Time Spent with Patient: Total time spent is greater than 50% in coordination of care (as documented) at patient's floor/unit and/or counseling patient: Coding Level of Care Code 21328 Subseq Hosp Care Lvl 2 Diagnoses UTI (urinary tract infection) N39.0 Paraplegia following spinal cord injury G82.20 Depression F32.9 Hyperlipidemia E78.5 Anemia D64.9 GERD (gastroesophageal reflux disease) K21.9 Esophagitis presence: without esophagitis DVT prophylaxis Z29.9 Constipation K59.00 (1) GERD (gastroesophageal reflux disease) Esophagitis presence: without esophagitis Qualified Code(s): K21.9 - Gastro- esophageal reflux disease without esophagitis
[2020-10-07] MEDS: ATORVASTATIN 20 MG TAB PO SCH (22:58)
[2020-10-07] MEDS: ZOLPIDEM TARTRATE 10 MG TAB PO PRN (22:58)
[2020-10-07] MEDS: AMITRIPTYLINE HCL 50 MG TAB PO SCH (22:58)
[2020-10-08] MEDS: oxyCODONE/ACETAMINOPHEN 10-325 TAB PO PRN ×4 (05:28→23:36)
[2020-10-08] MEDS: EUCERIN CR 120 GM JAR EXT SCH ×3 (05:28→19:59)
[2020-10-08 05:36] LABS: Basophils # (auto) 0.21 K/uL (0-0.2); Basophils % (auto) 1.7 %; Eosinophils # (auto) 0.99 K/uL (0-0.5); Eosinophils % (auto) 8.1 %; Hematocrit (blood only) 31.8 % (42-52); Immature Granulocytes # (auto) 0.04 K/uL (0.00-0.02); Immature Granulocytes % (auto) 0.3 %; Lymphocytes # (auto) 2.18 K/uL (1.2-3.4); Lymphocytes % (auto) 17.8 %; Mean Corpuscular Hemoglobin 27.9 pg (25-34); Mean Corpuscular Hgb Conc 31.4 g/dL (32-36); Mean Corpuscular Volume 88.8 fL (80-100); Mean Platelet Volume 8.9 fL (7.4-10.4); Monocytes # (auto) 0.99 K/uL (0.11-0.59); Monocytes % (auto) 8.1 %; Neutrophils # (auto) 7.85 K/uL (1.4-6.5); Platelet Count 576 K/uL (130-400); RDW Standard Deviation 61.7 fL (36.4-46.3); Red Blood Count 3.58 M/uL (4.7-6.1); White Blood Count 12.26 K/uL (4.8-10.8)
[2020-10-08 05:53] LABS: BUN Creatinine Ratio 33.3 (10-20); C Reactive Protein 0.74 mg/dl (0-0.29); Calcium 8.3 mg/dl (8.5-10.1); Creatinine Clr Calc Pharmacy 115.6 ml/min; Est GFR (African American) 117.7 ml/min; Est GFR (Non-African American) 101.5 ml/min; Potassium 4.3 mmol/L (3.5-5.1)
[2020-10-08] MEDS: ACETAMINOPHEN 500 MG TAB PO PRN ×2 (07:54→19:58)
[2020-10-08] MEDS: PANTOprazole 40 MG TAB PO SCH ×2 (07:54→19:57)
[2020-10-08] MEDS: ASCORBIC ACID 500 MG TAB PO SCH ×2 (07:54→19:57)
[2020-10-08] MEDS: CEFIDEROCOL SULFATE TOSYLATE IV SCH ×3 (08:55→23:37)
[2020-10-08] MEDS: DEXTROSE 5% IV SCH ×3 (08:55→23:37)
[2020-10-08] MEDS: MULTIVITAMIN TAB PO SCH (11:25)
[2020-10-08] MEDS: LINACLOTIDE 145 MCG CAPSULE PO SCH (11:25)
[2020-10-08] MEDS: FERROUS SULFATE 325 MG TAB PO SCH (11:25)
[2020-10-08] MEDS: FLUoxetine HCL 20 MG CAP PO SCH (11:25)
--- NOTE | 2020-10-08 16:06 | Hospitalist Progress Note ---
Date of Service October 08, 2020 Assessment & Plan (1) UTI (urinary tract infection): Plan: Recurrent UTIs in the setting of neurogenic bladder and obstructive uropathy. Catheter-associated /complicated UTI as patient has chronic indwelling garrison catheter due to neurogenic bladder. - Takes methenamine hippurate as an outpatient for prophylaxis. - Admitted for IV Meropenem based on UC&S from 09/22/20 growing multi-abx resistant pseudomonas. - Repeat urine culture from 09/26 growing Pseudomonas. - S/p ureteral stent exchange with Dr. Mcintosh 09/26/20. - ID consulted on 09/30. Recommend cefiderocol + tobramycin. ID recommending 2 weeks of IV antibiotic therapy - Unfortunately the initially Urine C&S showed senitivity to the tobramycin but this can not be used as monotherapy as it is only for synergy - Per in house lab/and outsourced lab, sensitivities can not yet be ran of Cefiderocol. - ID recommending stopping tobramycin and using single agent Cefiderocol (stopped on 10/06/20) -Today valentino #10/15 of treatment) - ID recommended watching patient clinically. His WBC slightly up but he has remained afebrile and his CRP is downtrending. - FU U/C shows no growth - follow up CBC and inflammatory markers tomorrow to trend. If uptrending, would be inclined to resume tobramycin and reconsult ID as I would fear that we are losing grasp on this infection. FU BMP to trend renal function given risk for renal dz with abx - Patient has peripheral ultrasound-guided IV - Case management on board to help facilitate placement to SNF for IV antibiotic therapy; however, may be difficult given cost of antibiotic treatment. May end up completing abx here (last day of ABX therapy is 10/14/20 pending he continues to respond) - Patient was requesting Covid vaccine now. advised against covid vaccine for now. I do encourage that the patient be vaccination just not while he is being treated for an active infection as the vaccine can trigger an immune response causing F/C, JACKSON, myalgias/arthralgias N/V, etc. Would not know if it were the vaccine vs suboptimal treatment of active infection -gross hematuria resolved with holding ASA and stopping lovenox. ADALI cordova for DVt prophylaxis. (2) Paraplegia following spinal cord injury: Plan: Working with CM. Likely placement as it has become hard to treat him at home. (3) Depression: Plan: - Continue fluoxetine (4) Hyperlipidemia: Plan: - Continue atorvastatin (5) Anemia: Plan: stable (6) GERD (gastroesophageal reflux disease): Plan: - On omeprazole at home. Ordered Pantoprazole 40mg PO BID while inpatient. (7) DVT prophylaxis: Plan: - Lovenox (8) Constipation: Plan: Loose stools have since resolved with de-escalation of bowel regimen. Continue Linzess Having 1BM a day. Miralax ordered prn Plan: -Placement on hold for now until follow-up labs can be done to help gauge if leukocytosis uptrending or downtrending given de-escalation of coverage -Plan of care will be discussed with Dr. Richey. Further orders as warranted. Admission and Anticipated Discharge Date Admission Date: September 24, 2020 Subjective Patient seen on daily rounds today. Vocalizes no complaints or concerns. Remains on single agent Cefiderocol. Remains afebrile. Complaining of left rib pain (not unusual for him) but denies flank pain. White blood cell count 12.26 (was 12.67 yesterday). Otherwise, his urine is clear. Repeat urine culture showing no growth. Nursing voices no complaints or concerns Review of Systems Review of Systems: All systems reviewed and are unremarkable except as noted in HPI and below Denies fevers, chills, headache, nasal congestion, sore throat, cough, chest pain, shortness of breath, abdominal pain, nausea, vomiting, dysuria, hematuria, frequency, skin lesions or rashes. Physical Exam Physical Exam: General: Resting comfortably in his hospital bed. Does not appear ill or toxic Neck: No JVD. Negative hepatojugular reflex Cardiac: RRR without M/G/R Lungs: CTA without W/R/R Abdomen: Normoactive X4. Soft and nontender in all quadrants. Extremities: No peripheral clubbing cyanosis or edema Neuro: A&O X4 cranial nerves II through XII are grossly intact no focal neuro deficits Skin: No obvious skin lesions or rashes Results & Data Results & Data ([facility]) Vital Signs (Past 12 Hours) Vital Signs Temp Pulse Resp BP Pulse Ox 10/08/20 11:40 36.8 C 88 19 162/91 H 96 10/08/20 07:50 36.6 C 98 H 15 141/84 H 97 Laboratory Results 10/08/20 05:21 10/08/20 05:21 ESR: 62 --> 67 CRP: 0.84--> 0.74 Urine Culture Final 10/08/20-1129 No growth - less than 1,000 colonies/mL. PG Care Time/CCT Total # of Minutes Spent Total Time Spent with Patient: Total time spent is greater than 50% in coordination of care (as documented) at patient's floor/unit and/or counseling patient: Coding [place] [address] Subseq Hosp Care Lvl 2 Patient Type Established History Expanded Problem Focused Exam Expanded Problem Focused Medical Decision Making Moderate Complexity Diagnoses UTI (urinary tract infection) N39.0 Paraplegia following spinal cord injury G82.20 Depression F32.9 Hyperlipidemia E78.5 Anemia D64.9 GERD (gastroesophageal reflux disease) K21.9 Esophagitis presence: without esophagitis DVT prophylaxis Z29.9 Constipation K59.00 (1) GERD (gastroesophageal reflux disease) Esophagitis presence: without esophagitis Qualified Code(s): K21.9 - Gastro- esophageal reflux disease without esophagitis
[2020-10-08] MEDS: ATORVASTATIN 20 MG TAB PO SCH (23:36)
[2020-10-08] MEDS: AMITRIPTYLINE HCL 50 MG TAB PO SCH (23:36)
[2020-10-08] MEDS: ZOLPIDEM TARTRATE 10 MG TAB PO PRN (23:36)
[2020-10-09] MEDS: EUCERIN CR 120 GM JAR EXT SCH ×3 (05:07→23:01)
[2020-10-09 06:14] LABS: Basophils # (auto) 0.29 K/uL (0-0.2); Basophils % (auto) 2.6 %; Eosinophils # (auto) 1.06 K/uL (0-0.5); Eosinophils % (auto) 9.4 %; Hematocrit (blood only) 33.1 % (42-52); Hemoglobin 10.4 g/dL (14.0-18.0); Immature Granulocytes # (auto) 0.03 K/uL (0.00-0.02); Immature Granulocytes % (auto) 0.3 %; Lymphocytes # (auto) 2.52 K/uL (1.2-3.4); Lymphocytes % (auto) 22.4 %; Mean Corpuscular Hemoglobin 28.4 pg (25-34); Mean Corpuscular Hgb Conc 31.4 g/dL (32-36); Mean Corpuscular Volume 90.4 fL (80-100); Mean Platelet Volume 9.2 fL (7.4-10.4); Monocytes # (auto) 0.98 K/uL (0.11-0.59); Monocytes % (auto) 8.7 %; Neutrophils # (auto) 6.36 K/uL (1.4-6.5); Neutrophils % (auto) 56.6 %; Platelet Count 613 K/uL (130-400); RDW Coefficient of Variation 19.2 % (11.5-14.5); RDW Standard Deviation 63.7 fL (36.4-46.3); Red Blood Count 3.66 M/uL (4.7-6.1); White Blood Count 11.24 K/uL (4.8-10.8)
[2020-10-09 06:50] LABS: BUN Creatinine Ratio 32.7 (10-20); Calcium 8.6 mg/dl (8.5-10.1); Creatinine Clr Calc Pharmacy 136.1 ml/min; Est GFR (African American) 125.8 ml/min; Est GFR (Non-African American) 108.6 ml/min; Magnesium 2.7 mg/dl (1.8-2.4); Potassium 4.1 mmol/L (3.5-5.1)
[2020-10-09 06:54] LABS: C Reactive Protein 0.52 mg/dl (0-0.29)
[2020-10-09] MEDS: ASCORBIC ACID 500 MG TAB PO SCH ×2 (08:28→20:31)
[2020-10-09] MEDS: PANTOprazole 40 MG TAB PO SCH ×2 (08:28→20:31)
[2020-10-09] MEDS: oxyCODONE/ACETAMINOPHEN 10-325 TAB PO PRN ×3 (08:28→20:30)
[2020-10-09] MEDS: CEFIDEROCOL SULFATE TOSYLATE IV SCH ×3 (08:29→23:49)
[2020-10-09] MEDS: DEXTROSE 5% IV SCH ×3 (08:29→23:49)
[2020-10-09] MEDS ORDERED: MINERAL OIL ENEMA 133 ML BTL PR PRN (10:30)
[2020-10-09] MEDS ORDERED: SOD PHOSPHATE/SOD BIPHOSPHATE ENEMA 132 ML BTL PR STA (10:30)
[2020-10-09] MEDS: ACETAMINOPHEN 500 MG TAB PO PRN ×2 (10:34→23:55)
[2020-10-09] MEDS: FERROUS SULFATE 325 MG TAB PO SCH (11:44)
[2020-10-09] MEDS: FLUoxetine HCL 20 MG CAP PO SCH (11:44)
[2020-10-09] MEDS: LINACLOTIDE 145 MCG CAPSULE PO SCH (11:44)
[2020-10-09] MEDS: MULTIVITAMIN TAB PO SCH (11:44)
[2020-10-09] MEDS: lisinopril 10 MG TAB PO SCH (13:44)
--- NOTE | 2020-10-09 19:49 | Hospitalist Progress Note ---
Date of Service October 09, 2020 Assessment & Plan (1) UTI (urinary tract infection): Plan: Recurrent UTIs in the setting of neurogenic bladder and obstructive uropathy. Catheter-associated /complicated UTI as patient has chronic indwelling garrison catheter due to neurogenic bladder. - Takes methenamine hippurate as an outpatient for prophylaxis. - Admitted for IV Meropenem based on UC&S from 09/22/20 growing multi-abx resistant pseudomonas. - Repeat urine culture from 09/26 growing Pseudomonas. - S/p ureteral stent exchange with Dr. Mcintosh 09/26/20. - ID consulted on 09/30. Recommend cefiderocol + tobramycin. ID recommending 2 weeks of IV antibiotic therapy - Unfortunately the initially Urine C&S showed senitivity to the tobramycin but this can not be used as monotherapy as it is only for synergy - Per in house lab/and outsourced lab, sensitivities can not yet be ran of Cefiderocol. - ID recommending stopping tobramycin and using single agent Cefiderocol (stopped on 10/06/20) - Today valentino #11/15 of treatment) - Spoke to ID who does not plan on doing another stent exchange at - ID recommended watching patient clinically. His WBC count did ever so slightly trend upward; however, he remained afebrile and hemodynamically stable. No changes were made in his white blood cell count today is 11.4 - FU U/C shows no growth - Patient has peripheral ultrasound-guided IV - Case management on board to help facilitate placement to SNF for IV antibiotic therapy; however, may be difficult given cost of antibiotic treatment. May end up completing abx here (last day of ABX therapy is 10/14/20 pending he continues to respond) - Patient was requesting Covid vaccine now. advised against covid vaccine for now. I do encourage that the patient be vaccination just not while he is being treated for an active infection as the vaccine can trigger an immune response causing F/C, JACKSON, myalgias/arthralgias N/V, etc. Would not know if it were the vaccine vs suboptimal treatment of active infection -gross hematuria resolved with holding ASA and stopping lovenox. ADALI cordova for DVt prophylaxis. (2) Paraplegia following spinal cord injury: Plan: Working with CM. Likely placement as it has become hard to treat him at home. (3) Depression: Plan: - Continue fluoxetine (4) Hyperlipidemia: Plan: - Continue atorvastatin (5) Anemia: Plan: stable (6) GERD (gastroesophageal reflux disease): Plan: - On omeprazole at home. Ordered Pantoprazole 40mg PO BID while inpatient. (7) DVT prophylaxis: Plan: - Lovenox (8) Constipation: Plan: Loose stools have since resolved with de-escalation of bowel regimen. Continue Linzess Having 1BM a day. Miralax and fleets enemas ordered as needed (9) Hypertension: Plan: -No medications on board. Blood pressure has been running elevated. Will start lisinopril and continue to monitor Plan: -Case management on board for placement; however, posing difficult. Last day of antibiotic therapy 10/14/2020 -Plan of care will be discussed with Dr. Richey. Further orders as warranted. Admission and Anticipated Discharge Date Admission Date: September 24, 2020 Subjective Patient seen on daily rounds today. Vocalizes no complaints or concerns. Antibiotic therapy have since been deescalated and his white blood cell count has remained stable (actually down to 11.4 from 12.26). His blood pressure has been labile in the 140s to 50s and as high as 170s. He does report a history of HTN and claims that he "takes something". He was uncertain. His was called and she is uncertain as to what patient takes. I did investigate his medication list including his pharmacy list and there is no blood pressure medication listed. He is asking for fleets enema to help him have a BM. Claims he uses these occasionally at home. Otherwise, denies fevers, chills, chest pain, shortness of breath, abdominal pain, nausea or vomiting. Review of Systems Review of Systems: All systems reviewed and are unremarkable except as noted in HPI and below Denies fevers, chills, headache, nasal congestion, sore throat, cough, chest pain, shortness of breath, abdominal pain, nausea, vomiting, dysuria, hematuria, frequency, skin lesions or rashes. Physical Exam Physical Exam: General: Resting comfortably in his hospital bed. NAD. Neck: No JVD. Negative hepatojugular reflex Cardiac: RRR without M/G/R Lungs: CTA without W/R/R Abdomen: Normoactive X4. Soft and nontender in all quadrants. Extremities: No peripheral clubbing cyanosis or edema Neuro: A&O X4 cranial nerves II through XII are grossly intact no focal neuro deficits Skin: No obvious skin lesions or rashes Results & Data Results & Data ([facility]) Vital Signs (Past 12 Hours) Vital Signs Temp Pulse Resp BP Pulse Ox 10/09/20 14:45 36.7 C 82 16 109/70 95 10/09/20 10:49 155/86 H PG Care Time/CCT Total # of Minutes Spent Total Time Spent with Patient: Total time spent is greater than 50% in coordination of care (as documented) at patient's floor/unit and/or counseling patient: Coding [place] [address] Subseq Hosp Care Lvl 2 Patient Type Established History Expanded Problem Focused Exam Expanded Problem Focused Medical Decision Making Moderate Complexity Diagnoses UTI (urinary tract infection) N39.0 Paraplegia following spinal cord injury G82.20 Depression F32.9 Hyperlipidemia E78.5 Anemia D64.9 GERD (gastroesophageal reflux disease) K21.9 Esophagitis presence: without esophagitis DVT prophylaxis Z29.9 Constipation K59.00 Hypertension I10 (1) GERD (gastroesophageal reflux disease) Esophagitis presence: without esophagitis Qualified Code(s): K21.9 - Gastro- esophageal reflux disease without esophagitis
[2020-10-09] MEDS: AMITRIPTYLINE HCL 50 MG TAB PO SCH (23:01)
[2020-10-09] MEDS: ATORVASTATIN 20 MG TAB PO SCH (23:01)
[2020-10-10] MEDS: ZOLPIDEM TARTRATE 10 MG TAB PO PRN (01:02)
[2020-10-10] MEDS: EUCERIN CR 120 GM JAR EXT SCH ×3 (06:14→20:43)
[2020-10-10] MEDS: DEXTROSE 5% IV SCH ×3 (07:52→23:57)
[2020-10-10] MEDS: CEFIDEROCOL SULFATE TOSYLATE IV SCH ×3 (07:52→23:57)
[2020-10-10] MEDS: PANTOprazole 40 MG TAB PO SCH ×2 (07:57→20:42)
[2020-10-10] MEDS: ASCORBIC ACID 500 MG TAB PO SCH ×2 (07:58→20:42)
--- NOTE | 2020-10-10 08:26 | Hospitalist Progress Note ---
Date of Service October 10, 2020 Assessment & Plan (1) UTI (urinary tract infection): Plan: Recurrent UTIs in the setting of neurogenic bladder and obstructive uropathy. Catheter-associated /complicated UTI as patient has chronic indwelling Garrison catheter due to neurogenic bladder. * Takes methenamine hippurate as an outpatient for prophylaxis. * Seen in ER 09/24 for constipation and UTI symptoms --> sent home and called for IV Meropenem based on Urine Cx/s with MDR pseudomonas * Patient is s/p ureteral stent exchange with Dr. Mcintosh 09/26/20 -- per hx, patient with b/l hydroureteronephrosis 2nd to fecal impaction * (of note patient with LARGE LARGE BM about 1.5 wks ago and regular BMs since that time). * ID consulted on 09/30, Dr Caban * --> Recommend Cefiderocol + tobramycin. ID recommending 2 weeks of IV antibiotic therapy * Unfortunately the initially Urine C&S showed sensitivity to the tobramycin but this can not be used as monotherapy as it is only for synergy effect * Per in house lab/and outsourced lab, sensitivities can not yet be ran of Cefiderocol. * ID recommending stopping tobramycin and using single agent Cefiderocol (stopped on 10/06/20) Today valentino #10/ of treatment - Pt has peripheral ultrasound-guided IV. Due to cost/availability for abx @ [facility], will likely need to remain inpatient for completion 10/10 Spoke to Urology regarding need for stents given infxn and likely not clear until tx --> does not plan on stent exchange until 2-3 months --> Messaged this morning given WBC 13 today. Remains afebrile (repeat UCx no growth) ??Need to cover for charity given the stents? --> Messaged ID this afternoon for recs--> started on Diflucan today (10/10) and would continue for 14 days, and he would also recommend that the Cefiderocol be continued for another 7 days. Diflucan would be completed 10/24 and Cefiderocol on 10/17. Of note, he also made note that the patient will likely return with the same issue without stent and stone removal. Alerted Urology again --> plans remain same for now. Continue to monitor and plans for stent exchange in 2-3 months Kidney function remains stable Due to cost of abx/SNF ability to have, will need to remain inpatient for completion of antibiotics (2) Constipation: Plan: contributory to hydro per Urology in history --> large BM last week and continues to move bowels Loose stools have since resolved with de-escalation of bowel regimen. Continue Linzess Having 1-2BM a day. Miralax and fleets enemas ordered as needed Continue to monitor (3) Hypertension: Plan: No medications on board. Blood pressure had been running elevated --> lisinopril started and BP improved. Continue to monitor Would continue at discharge (4) Hyperlipidemia: Plan: Continue atorvastatin (5) Depression: Plan: Continue fluoxetine (6) Anemia: Plan: stable Episode gross hematuria -- resolved with holding ASA and stopping lovenox Hgb improved on repeat CBC --> resumed Lovenox SQ and monitor for bleeding. (7) GERD (gastroesophageal reflux disease): Plan: On omeprazole at home. Ordered Pantoprazole 40mg PO BID while inpatient. (8) Paraplegia following spinal cord injury: Plan: Working with CM. Likely placement as it has become hard to treat him at home. (9) DVT prophylaxis: Plan: Lovenox (held for gross hematuria, now resolved) - -- will resume Lovenox and monitor for any repeat bleeding Sonny cordova Patient was requesting Covid vaccine now. advised against COVID vaccine for now. I do encourage that the patient be vaccination just not while he is being treated for an active infection as the vaccine can trigger an immune response causing F/C, JACKSON, myalgias/arthralgias N/V, etc. Would not know if it were the vaccine vs suboptimal treatment of active infection Plan: Continued inpatient stay on abx/antifungals until completion of IV abx inpatient (not able to arrange at SNF) Messaged Urology about ID concerns for continued issue unless stents exchanged/stone treated as above Admission and Anticipated Discharge Date Admission Date: September 24, 2020 Supervising Physician Co-Signing Physician Notes BEV Supervision Note: I did not personally see or examine the patient today, but I verified all pleitez points of BEV Cantu's assessment and plan with the following exceptions/additions: None Subjective Patient evaluated this afternoon. Doing well. Eating/drinking and moving his bowels. No fever, chills, chest pain or shortness of breath, abdominal pain, nausea or vomiting. He notes bilateral pressure ulcers to heals -- changed last night but doesn't think providers have seen. Will have RN changed Genoa pads but wounds look good with granulation tissue currently. Alerted he will remain inpatient while completing antibiotics -- no respiratory symptoms currently and 95% on room air but instructed to alert staff if any shortness of breath/respiratory symptoms occur. Questions/concerns addressed at this time. Review of Systems Review of Systems: All systems reviewed & are unremarkable except as noted in HPI & below Physical Exam Physical Exam: General: WD, WN, chronically ill appearing but resting comfortably in his hospital bed. NAD. Neck: No JVD. Negative hepatojugular reflex. mmm Cardiac: RRR without M/G/R Lungs: CTA without W/R/R, on room air Abdomen: Normoactive X4. Soft and nontender in all quadrants. Extremities: No peripheral clubbing cyanosis or edema. b/l heel pressure ulcers with Toro pads-- good granulation tissue present Neuro: A&O X4 cranial nerves II through XII are grossly intact no focal neuro deficits, chronic paraplegia : garrison draining yellow urine Skin: No obvious skin lesions or rashes Results & Data Results & Data ([facility]) Vital Signs (Past 12 Hours) Vital Signs Temp Pulse Resp BP Pulse Ox 10/10/20 07:05 36.5 C 75 18 125/79 95 10/09/20 22:00 36.7 C 74 16 127/75 92 Laboratory Results 10/10/20 10/10/20 Range/Units 09:00 09:00 WBC 13.16 H (4.8-10.8) K/uL RBC 3.95 L (4.7-6.1) M/uL Hgb 11.1 L (14.0-18.0) g/dL Hct 35.4 L (42-52) % MCV 89.6 (80-100) fL MCH 28.1 (25-34) pg MCHC 31.4 L (32-36) g/dL RDW Std Deviation 63.2 H (36.4-46.3) fL RDW Coeff of Jigna 19.3 H (11.5-14.5) % Plt Count 592 H (130-400) K/uL MPV 9.2 (7.4-10.4) fL Immature Gran % (Auto) 0.2 % Neut % (Auto) 75.2 % Lymph % (Auto) 12.0 % Sequoyah % (Auto) 7.9 % Eos % (Auto) 3.6 % Baso % (Auto) 1.1 % Neut # (Auto) 9.88 H (1.4-6.5) K/uL Lymph # (Auto) 1.58 (1.2-3.4) K/uL Sequoyah # (Auto) 1.04 H (0.11-0.59) K/uL Eos # (Auto) 0.48 (0-0.5) K/uL Baso # (Auto) 0.15 (0-0.2) K/uL Immature Gran # (Auto) 0.03 H (0.00-0.02) K/uL Sodium 138 (136-145) mmol/L Potassium 3.7 (3.5-5.1) mmol/L Chloride 107 (98-107) mmol/L Carbon Dioxide 26 (21-32) mmol/L Anion Gap 6.0 (3-11) BUN 20 H (7-18) mg/dl Creatinine 0.63 (0.6-1.4) mg/dl Est Cr Clr Drug Dosing 133.9 ml/min Est GFR ( Amer) 125.0 ml/min Est GFR (Non-Af Amer) 107.9 ml/min BUN/Creatinine Ratio 31.2 H (10-20) Glucose 104 H (70-99) mg/dl Calcium 8.4 L (8.5-10.1) mg/dl PG Care Time/CCT Total # of Minutes Spent Total Time Spent with Patient: Total time spent is greater than 50% in coordination of care (as documented) at patient's floor/unit and/or counseling patient: Coding Level of Care Code 48730 Subseq Hosp Care Lvl 3 Diagnoses UTI (urinary tract infection) N39.0 Paraplegia following spinal cord injury G82.20 Depression F32.9 Hyperlipidemia E78.5 Anemia D64.9 GERD (gastroesophageal reflux disease) K21.9 Esophagitis presence: without esophagitis DVT prophylaxis Z29.9 Constipation K59.00 Hypertension I10 (1) GERD (gastroesophageal reflux disease) Esophagitis presence: without esophagitis Qualified Code(s): K21.9 - Gastro- esophageal reflux disease without esophagitis
[2020-10-10] MEDS: lisinopril 10 MG TAB PO SCH (08:39)
[2020-10-10 09:29] LABS: Basophils # (auto) 0.15 K/uL (0-0.2); Basophils % (auto) 1.1 %; Eosinophils # (auto) 0.48 K/uL (0-0.5); Eosinophils % (auto) 3.6 %; Hematocrit (blood only) 35.4 % (42-52); Hemoglobin 11.1 g/dL (14.0-18.0); Immature Granulocytes # (auto) 0.03 K/uL (0.00-0.02); Immature Granulocytes % (auto) 0.2 %; Lymphocytes # (auto) 1.58 K/uL (1.2-3.4); Mean Corpuscular Hemoglobin 28.1 pg (25-34); Mean Corpuscular Hgb Conc 31.4 g/dL (32-36); Mean Corpuscular Volume 89.6 fL (80-100); Mean Platelet Volume 9.2 fL (7.4-10.4); Monocytes # (auto) 1.04 K/uL (0.11-0.59); Monocytes % (auto) 7.9 %; Neutrophils # (auto) 9.88 K/uL (1.4-6.5); Neutrophils % (auto) 75.2 %; Platelet Count 592 K/uL (130-400); RDW Coefficient of Variation 19.3 % (11.5-14.5); RDW Standard Deviation 63.2 fL (36.4-46.3); Red Blood Count 3.95 M/uL (4.7-6.1); White Blood Count 13.16 K/uL (4.8-10.8)
[2020-10-10 09:46] LABS: BUN Creatinine Ratio 31.2 (10-20); Calcium 8.4 mg/dl (8.5-10.1); Creatinine Clr Calc Pharmacy 133.9 ml/min; Est GFR (Non-African American) 107.9 ml/min; Potassium 3.7 mmol/L (3.5-5.1)
[2020-10-10] MEDS: MULTIVITAMIN TAB PO SCH (11:29)
[2020-10-10] MEDS: FLUoxetine HCL 20 MG CAP PO SCH (11:29)
[2020-10-10] MEDS: LINACLOTIDE 145 MCG CAPSULE PO SCH (11:29)
[2020-10-10] MEDS: FERROUS SULFATE 325 MG TAB PO SCH (11:30)
[2020-10-10] MEDS: oxyCODONE/ACETAMINOPHEN 10-325 TAB PO PRN ×2 (11:32→19:45)
[2020-10-10] MEDS: FLUCONAZOLE 100 MG TAB PO SCH (14:17)
[2020-10-10] MEDS: ENOXAPARIN INJ 40 MG/0.4 ML SYR SQ SCH (14:18)
[2020-10-10] MEDS: AMITRIPTYLINE HCL 50 MG TAB PO SCH (23:15)
[2020-10-10] MEDS: ATORVASTATIN 20 MG TAB PO SCH (23:15)
[2020-10-11] MEDS: ZOLPIDEM TARTRATE 10 MG TAB PO PRN (01:24)
[2020-10-11] MEDS: EUCERIN CR 120 GM JAR EXT SCH ×3 (06:14→21:16)
[2020-10-11 08:17] LABS: Basophils # (auto) 0.29 K/uL (0-0.2); Basophils % (auto) 2.5 %; Eosinophils # (auto) 1.26 K/uL (0-0.5); Eosinophils % (auto) 10.7 %; Hematocrit (blood only) 32.9 % (42-52); Hemoglobin 10.1 g/dL (14.0-18.0); Immature Granulocytes # (auto) 0.03 K/uL (0.00-0.02); Immature Granulocytes % (auto) 0.3 %; Lymphocytes # (auto) 1.96 K/uL (1.2-3.4); Lymphocytes % (auto) 16.6 %; Mean Corpuscular Hemoglobin 27.5 pg (25-34); Mean Corpuscular Hgb Conc 30.7 g/dL (32-36); Mean Corpuscular Volume 89.6 fL (80-100); Mean Platelet Volume 9.3 fL (7.4-10.4); Monocytes # (auto) 0.87 K/uL (0.11-0.59); Monocytes % (auto) 7.4 %; Neutrophils # (auto) 7.39 K/uL (1.4-6.5); Neutrophils % (auto) 62.5 %; Platelet Count 547 K/uL (130-400); RDW Coefficient of Variation 19.6 % (11.5-14.5); RDW Standard Deviation 64.6 fL (36.4-46.3); Red Blood Count 3.67 M/uL (4.7-6.1)
[2020-10-11 08:42] LABS: Albumin Level 2.1 gm/dl (3.4-5.0); BUN Creatinine Ratio 26.9 (10-20); Calcium 8.3 mg/dl (8.5-10.1); Creatinine Clr Calc Pharmacy 153.4 ml/min; Est GFR (African American) 132.2 ml/min; Est GFR (Non-African American) 114.1 ml/min
[2020-10-11 08:44] LABS: Albumin Globulin Ratio 0.4 (0.9-2); Bilirubin,Total 0.3 mg/dl (0.2-1); Globulin 4.7 gm/dl (2.5-4.0); Total Protein 6.8 gm/dl (6.4-8.2)
[2020-10-11] MEDS: CEFIDEROCOL SULFATE TOSYLATE IV SCH ×3 (08:54→23:11)
[2020-10-11] MEDS: DEXTROSE 5% IV SCH ×3 (08:54→23:11)
[2020-10-11] MEDS: PANTOprazole 40 MG TAB PO SCH ×2 (08:57→21:16)
[2020-10-11] MEDS: ASCORBIC ACID 500 MG TAB PO SCH ×2 (08:57→21:16)
[2020-10-11] MEDS: lisinopril 10 MG TAB PO SCH (08:58)
[2020-10-11] MEDS: ENOXAPARIN INJ 40 MG/0.4 ML SYR SQ SCH (08:59)
--- NOTE | 2020-10-11 09:02 | Hospitalist Progress Note ---
Date of Service October 11, 2020 Assessment & Plan (1) UTI (urinary tract infection): Plan: Recurrent UTIs in the setting of neurogenic bladder and obstructive uropathy. Catheter-associated /complicated UTI as patient has chronic indwelling Garrison catheter due to neurogenic bladder. * Takes methenamine hippurate as an outpatient for prophylaxis. * Seen in ER 09/24 for constipation and UTI symptoms --> sent home and called for IV Meropenem based on Urine Cx/s with MDR pseudomonas * Patient is s/p ureteral stent exchange with Dr. Mcintosh 09/26/20 -- per hx, patient with b/l hydroureteronephrosis 2nd to fecal impaction * (of note patient with LARGE LARGE BM about 1.5 wks ago and regular BMs since that time). * ID consulted on 09/30, Dr Caban * --> Recommend Cefiderocol + tobramycin. ID recommending 2 weeks of IV antibiotic therapy * Unfortunately the initially Urine C&S showed sensitivity to the tobramycin but this can not be used as monotherapy as it is only for synergy effect * Per in house lab/and outsourced lab, sensitivities can not yet be ran of Cefiderocol. * ID recommending stopping tobramycin and using single agent Cefiderocol (stopped on 10/06/20) Pt has peripheral ultrasound-guided IV. Due to cost/availability for abx @ [facility], will need to remain inpatient for completion Today valentino #11/14 of treatment, however per discussion with ID on 10/10, recs for extension of Cefiderocol for 7 days (6 more days, to be completed 10/16) Recs for Diflucan x 14 days (day 2) WBC trending down now, remains afebrile Urology for stent exchange in 2 months --> will need done sooner if WBC elevates with above or patient develops fever Of note, ID made note that the patient will likely return with the same issue without stent and stone removal. Kidney function remains stable Continue to monitor (2) Constipation: Plan: contributory to hydro per Urology in history --> large BM last week and continues to move bowels Loose stools have since resolved with de-escalation of bowel regimen. Continue Linzess Having 1-2BM a day. Miralax and fleets enemas ordered as needed enema x 1 for today by request Continue to monitor (3) Hypertension: Plan: No medications on board. Blood pressure had been running elevated --> lisinopril started and BP improved--> continue at discharge Continue to monitor (4) Hyperlipidemia: Plan: Continue atorvastatin (5) Depression: Plan: Continue fluoxetine (6) Anemia: Plan: stable Episode gross hematuria -- resolved with holding ASA and stopping lovenox Hgb stable and remains on repeat and no obvious hematuria currently Continue to monitor while on Lovenox (7) GERD (gastroesophageal reflux disease): Plan: On omeprazole at home. Ordered Pantoprazole 40mg PO BID while inpatient. (8) Paraplegia following spinal cord injury: Plan: Working with CM. Likely placement as it has become hard to treat him at home. (9) DVT prophylaxis: Plan: Lovenox (held for gross hematuria, now resolved) - -- will resume Lovenox and monitor for any repeat bleeding. see above, stable Sonny cordova Patient was requesting Covid vaccine now. advised against COVID vaccine for now. I do encourage that the patient be vaccination just not while he is being treated for an active infection as the vaccine can trigger an immune response causing F/C, JACKSON, myalgias/arthralgias N/V, etc. Would not know if it were the vaccine vs suboptimal treatment of active infection Plan: Continued inpatient stay on abx/antifungals until completion of IV abx inpatient (not able to arrange at [facility]) Messaged Urology about ID concerns for continued issue unless stents exchanged/stone treated as above Will be inpatient at least until Saturday, if not Saturday. If continues to improve WBC and no fever, may be able to arrange prior to weekend and get patient discharged on Saturday, otherwise will remain inpatient until next week Admission and Anticipated Discharge Date Admission Date: September 24, 2020 Supervising Physician Co-Signing Physician Notes PA Supervision Note: I did not personally see or examine the patient today, but I verified all pleitez points of BEV Cantu's assessment and plan with the following exceptions/additions: None Subjective Patient evaluated this evening. Doing well. States "feeling as good as when I came in." Discussed ID recs for abx continued for 7 days and Diflucan for 14 days. As long as WBC continues to improve will hold off on Urology intervention but if develops fever or WBC elevated on current regimen they may need to step in sooner. Moving bowels but does note some formed stool LLQ, non-tender - repeating soap suds by request to prevent any issues with constipation. He notes he can tell when he is going to urinate/move bowels as he gets a "chill" prior to, however never sure which one it will be. No fever, chills, chest pain, shortness of breath, abdominal pain, nausea or vomiting. Garrison continues to drain yellow urine. Questions/concerns addressed -- hopeful for d/c Saturday but he is aware may not be until Saturday. Review of Systems Review of Systems: All systems reviewed & are unremarkable except as noted in HPI & below Physical Exam Physical Exam: General: WD, WN, chronically ill appearing but resting comfortably in his hospital bed. NAD. Neck: No JVD. Negative hepatojugular reflex. mmm Cardiac: RRR without M/G/R Lungs: CTA without W/R/R, on room air Abdomen: Normoactive X4. Soft and nontender in all quadrants. palpable stool L LQ Extremities: No peripheral clubbing cyanosis or edema. b/l heel pressure ulcers with Toro pads-- good granulation tissue present Neuro: A&O X4 cranial nerves II through XII are grossly intact no focal neuro deficits, chronic paraplegia : garrison draining yellow concentrated urine Skin: No obvious skin lesions or rashes Results & Data Results & Data ([facility]) Vital Signs (Past 12 Hours) Vital Signs Temp Pulse Resp BP Pulse Ox 10/11/20 07:20 36.6 C 75 16 153/88 H 93 10/10/20 23:09 37 C 73 16 123/73 94 Laboratory Results 10/11/20 10/11/20 10/10/20 Range/Units 07:37 07:37 09:00 WBC 11.80 H (4.8-10.8) K/uL RBC 3.67 L (4.7-6.1) M/uL Hgb 10.1 L (14.0-18.0) g/dL Hct 32.9 L (42-52) % MCV 89.6 (80-100) fL MCH 27.5 (25-34) pg MCHC 30.7 L (32-36) g/dL RDW Std Deviation 64.6 H (36.4-46.3) fL RDW Coeff of Jigna 19.6 H (11.5-14.5) % Plt Count 547 H (130-400) K/uL MPV 9.3 (7.4-10.4) fL Immature Gran % (Auto) 0.3 % Neut % (Auto) 62.5 % Lymph % (Auto) 16.6 % Mobile % (Auto) 7.4 % Eos % (Auto) 10.7 % Baso % (Auto) 2.5 % Neut # (Auto) 7.39 H (1.4-6.5) K/uL Lymph # (Auto) 1.96 (1.2-3.4) K/uL Mobile # (Auto) 0.87 H (0.11-0.59) K/uL Eos # (Auto) 1.26 H (0-0.5) K/uL Baso # (Auto) 0.29 H (0-0.2) K/uL Immature Gran # (Auto) 0.03 H (0.00-0.02) K/uL Sodium 142 138 (136-145) mmol/L Potassium 4.0 3.7 (3.5-5.1) mmol/L Chloride 112 H 107 (98-107) mmol/L Carbon Dioxide 25 26 (21-32) mmol/L Anion Gap 4.0 6.0 (3-11) BUN 15 20 H (7-18) mg/dl Creatinine 0.55 L 0.63 (0.6-1.4) mg/dl Est Cr Clr Drug Dosing 153.4 133.9 ml/min Est GFR ( Amer) 132.2 125.0 ml/min Est GFR (Non-Af Amer) 114.1 107.9 ml/min BUN/Creatinine Ratio 26.9 H 31.2 H (10-20) Glucose 89 104 H (70-99) mg/dl Calcium 8.3 L 8.4 L (8.5-10.1) mg/dl Total Bilirubin 0.3 (0.2-1) mg/dl AST 27 (15-37) U/L ALT 29 (12-78) U/L Alkaline Phosphatase 98 (45-117) U/L Total Protein 6.8 (6.4-8.2) gm/dl Albumin 2.1 L (3.4-5.0) gm/dl Globulin 4.7 H (2.5-4.0) gm/dl Albumin/Globulin Ratio 0.4 L (0.9-2) /11/22 Range/Units 09:00 WBC 13.16 H (4.8-10.8) K/uL RBC 3.95 L (4.7-6.1) M/uL Hgb 11.1 L (14.0-18.0) g/dL Hct 35.4 L (42-52) % MCV 89.6 (80-100) fL MCH 28.1 (25-34) pg MCHC 31.4 L (32-36) g/dL RDW Std Deviation 63.2 H (36.4-46.3) fL RDW Coeff of Jigna 19.3 H (11.5-14.5) % Plt Count 592 H (130-400) K/uL MPV 9.2 (7.4-10.4) fL Immature Gran % (Auto) 0.2 % Neut % (Auto) 75.2 % Lymph % (Auto) 12.0 % Mobile % (Auto) 7.9 % Eos % (Auto) 3.6 % Baso % (Auto) 1.1 % Neut # (Auto) 9.88 H (1.4-6.5) K/uL Lymph # (Auto) 1.58 (1.2-3.4) K/uL Mobile # (Auto) 1.04 H (0.11-0.59) K/uL Eos # (Auto) 0.48 (0-0.5) K/uL Baso # (Auto) 0.15 (0-0.2) K/uL Immature Gran # (Auto) 0.03 H (0.00-0.02) K/uL Sodium (136-145) mmol/L Potassium (3.5-5.1) mmol/L Chloride (98-107) mmol/L Carbon Dioxide (21-32) mmol/L Anion Gap (3-11) BUN (7-18) mg/dl Creatinine (0.6-1.4) mg/dl Est Cr Clr Drug Dosing ml/min Est GFR ( Amer) ml/min Est GFR (Non-Af Amer) ml/min BUN/Creatinine Ratio (10-20) Glucose (70-99) mg/dl Calcium (8.5-10.1) mg/dl Total Bilirubin (0.2-1) mg/dl AST (15-37) U/L ALT (12-78) U/L Alkaline Phosphatase (45-117) U/L Total Protein (6.4-8.2) gm/dl Albumin (3.4-5.0) gm/dl Globulin (2.5-4.0) gm/dl Albumin/Globulin Ratio (0.9-2) PG Care Time/CCT Total # of Minutes Spent Total Time Spent with Patient: Total time spent is greater than 50% in coordination of care (as documented) at patient's floor/unit and/or counseling patient: Coding Level of Care Code 92632 Subseq Hosp Care Lvl 2 Diagnoses UTI (urinary tract infection) N39.0 Constipation K59.00 Hypertension I10 Hyperlipidemia E78.5 Depression F32.9 Anemia D64.9 GERD (gastroesophageal reflux disease) K21.9 Esophagitis presence: without esophagitis Paraplegia following spinal cord injury G82.20 DVT prophylaxis Z29.9 (1) GERD (gastroesophageal reflux disease) Esophagitis presence: without esophagitis Qualified Code(s): K21.9 - Gastro- esophageal reflux disease without esophagitis
[2020-10-11] MEDS: oxyCODONE/ACETAMINOPHEN 10-325 TAB PO PRN ×3 (09:45→22:20)
[2020-10-11] MEDS: FLUCONAZOLE 100 MG TAB PO SCH (09:46)
[2020-10-11] MEDS: FERROUS SULFATE 325 MG TAB PO SCH (11:53)
[2020-10-11] MEDS: FLUoxetine HCL 20 MG CAP PO SCH (11:53)
[2020-10-11] MEDS: MULTIVITAMIN TAB PO SCH (11:53)
[2020-10-11] MEDS: LINACLOTIDE 145 MCG CAPSULE PO SCH (11:53)
[2020-10-11] MEDS: ATORVASTATIN 20 MG TAB PO SCH (23:10)
[2020-10-11] MEDS: AMITRIPTYLINE HCL 50 MG TAB PO SCH (23:10)
[2020-10-12] MEDS: ZOLPIDEM TARTRATE 10 MG TAB PO PRN (00:34)
[2020-10-12] MEDS: EUCERIN CR 120 GM JAR EXT SCH ×3 (06:15→20:58)
[2020-10-12 07:56] LABS: Basophils % (auto) 2.5 %; Eosinophils % (auto) 10.1 %; Hematocrit (blood only) 35.2 % (42-52); Immature Granulocytes # (auto) 0.02 K/uL (0.00-0.02); Immature Granulocytes % (auto) 0.2 %; Lymphocytes # (auto) 2.27 K/uL (1.2-3.4); Mean Corpuscular Hemoglobin 28.5 pg (25-34); Mean Corpuscular Hgb Conc 31.3 g/dL (32-36); Mean Corpuscular Volume 91.2 fL (80-100); Mean Platelet Volume 9.3 fL (7.4-10.4); Monocytes # (auto) 0.98 K/uL (0.11-0.59); Monocytes % (auto) 8.2 %; Neutrophils # (auto) 7.17 K/uL (1.4-6.5); Platelet Count 567 K/uL (130-400); RDW Coefficient of Variation 19.5 % (11.5-14.5); RDW Standard Deviation 65.3 fL (36.4-46.3); Red Blood Count 3.86 M/uL (4.7-6.1); White Blood Count 11.94 K/uL (4.8-10.8)
[2020-10-12] MEDS: DEXTROSE 5% IV SCH ×2 (07:57→16:21)
[2020-10-12] MEDS: CEFIDEROCOL SULFATE TOSYLATE IV SCH ×2 (07:57→16:21)
[2020-10-12] MEDS: ENOXAPARIN INJ 40 MG/0.4 ML SYR SQ SCH (07:58)
[2020-10-12] MEDS: oxyCODONE/ACETAMINOPHEN 10-325 TAB PO PRN ×3 (07:58→20:57)
[2020-10-12] MEDS: FLUCONAZOLE 100 MG TAB PO SCH (08:00)
[2020-10-12] MEDS: ASCORBIC ACID 500 MG TAB PO SCH ×2 (08:01→19:46)
[2020-10-12] MEDS: lisinopril 10 MG TAB PO SCH (08:01)
[2020-10-12] MEDS: PANTOprazole 40 MG TAB PO SCH ×2 (08:02→19:46)
[2020-10-12 08:31] LABS: BUN Creatinine Ratio 24.1 (10-20); C Reactive Protein 0.96 mg/dl (0-0.29); Calcium 8.6 mg/dl (8.5-10.1); Creatinine Clr Calc Pharmacy 124.1 ml/min; Est GFR (African American) 121.2 ml/min; Est GFR (Non-African American) 104.5 ml/min; Potassium 5.1 mmol/L (3.5-5.1)
--- NOTE | 2020-10-12 09:10 | Hospitalist Progress Note ---
Date of Service October 12, 2020 Assessment & Plan (1) UTI (urinary tract infection): Plan: Recurrent UTIs in the setting of neurogenic bladder and obstructive uropathy. Catheter-associated /complicated UTI as patient has chronic indwelling Garrison catheter due to neurogenic bladder. * Takes methenamine hippurate as an outpatient for prophylaxis. * Seen in ER 09/24 for constipation and UTI symptoms --> sent home and called for IV Meropenem based on Urine Cx/s with MDR pseudomonas * Patient is s/p ureteral stent exchange with Dr. Mcintosh 09/26/20 -- per hx, patient with b/l hydroureteronephrosis 2nd to fecal impaction * (of note patient with LARGE LARGE BM about 1.5 wks ago and regular BMs since that time). * ID consulted on 09/30, Dr Caban * --> Recommend Cefiderocol + tobramycin. ID recommending 2 weeks of IV antibiotic therapy * Unfortunately the initially Urine C&S showed sensitivity to the tobramycin but this can not be used as monotherapy as it is only for synergy effect * Per in house lab/and outsourced lab, sensitivities can not yet be ran of Cefiderocol. * ID recommending stopping tobramycin and using single agent Cefiderocol (stopped on 10/06/20) Pt has peripheral ultrasound-guided IV. Due to cost/availability for abx @ [facility], will need to remain inpatient for completion Today valentino #12 of treatment, however per discussion with ID on 10/10, recs for extension of Cefiderocol for 7 days (to be completed 10/16) Recs for Diflucan x 14 days (day 3) WBC about the same but decreased neutrophils. ESR/CRP slightly up with elevated eosphiophils but kidney function stable --> monitor closely while on Cefiderocol for possible AIN Will also check LFTs while on fluconazole Urology for stent exchange in 2 months --> will need done sooner if WBC elevates with above or patient develops fever Of note, ID made note that the patient will likely return with the same issue without stent and stone removal. Kidney function remains stable Continue to monitor (2) Constipation: Plan: contributory to hydro per Urology in history --> large BM last week and continues to move bowels Loose stools have since resolved with de-escalation of bowel regimen. Continue Linzess Having 1-2BM a day. Miralax and fleets enemas ordered as needed soap suds available prn Continue to monitor (3) Hypertension: Plan: No medications on board. Blood pressure had been running elevated --> lisinopril started and BP improved but higher today --> Given K up to 5.1 and with risk for kidney damange on above abx, will decrease to 5mg daily and add amlodipine 5mg daily for AM Hydralazine prn Continue to monitor (4) Hyperlipidemia: Plan: Continue atorvastatin (5) Depression: Plan: Continue fluoxetine (6) Anemia: Plan: stable Episode gross hematuria -- resolved with holding ASA and stopping lovenox Hgb stable and actually improved. no obvious hematuria currently Continue to monitor while on Lovenox (7) GERD (gastroesophageal reflux disease): Plan: On omeprazole at home. Ordered Pantoprazole 40mg PO BID while inpatient. (8) Paraplegia following spinal cord injury: Plan: Working with CM. Likely placement as it has become hard to treat him at home. (9) DVT prophylaxis: Plan: Lovenox (held for gross hematuria, now resolved) Since resumed Lovenox and no bleeding, hgb improved Patient was requesting Covid vaccine now. advised against COVID vaccine for now. I do encourage that the patient be vaccination just not while he is being treated for an active infection as the vaccine can trigger an immune response causing F/C, JACKSON, myalgias/arthralgias N/V, etc. Would not know if it were the vaccine vs suboptimal treatment of active infection Plan: Continued inpatient stay on abx/antifungals until completion of IV abx inpatient (not able to arrange at [facility]) Messaged Urology about ID concerns for continued issue unless stents exchanged/stone treated as above Will be inpatient at least until Saturday, if not Saturday. If continues to improve WBC and no fever, may be able to arrange prior to weekend and get patient discharged on Saturday, otherwise will remain inpatient until next week Admission and Anticipated Discharge Date Admission Date: September 24, 2020 Supervising Physician Co-Signing Physician Notes PA Supervision Note: I did not personally see or examine the patient today, but I verified all pleitez points of BEV Cantu's assessment and plan with the following exceptions/additions: None Subjective Patient evaluated this afternoon. Doing well. No fever, chills, chest pain, shortness of breath,abdominal pain, nausea or vomiting. Remains stable. Discussed if continues to improve on AM labs will attempt to arrange for d/c over weekend with CM after Saturday's dose. Buttocks erythematous -- he is attempting to stay to the right side and keep pressure off of this. RN applying stoma powder and continuing to monitor. Questions/concerns addressed at this time. Review of Systems Review of Systems: All systems reviewed & are unremarkable except as noted in HPI & below Physical Exam Physical Exam: General: WD, WN, chronically ill appearing but resting comfortably in his hospital bed. NAD. Neck: No JVD. Negative hepatojugular reflex. mmm Cardiac: RRR without M/G/R Lungs: CTA without W/R/R, on room air Abdomen: Normoactive X4. Soft and nontender in all quadrants. Extremities/skin: No peripheral clubbing cyanosis or edema. b/l heel pressure ulcers with [place] pads-- good granulation tissue present. erythema to b/l buttocks with stoma powder Neuro: A&O X4 cranial nerves II through XII are grossly intact no focal neuro deficits, chronic paraplegia : garrison draining yellow tearoom host yellow urine Results & Data Results & Data ([facility]) Vital Signs (Past 12 Hours) Vital Signs Temp Pulse Resp BP Pulse Ox 10/12/20 07:00 36.6 C 77 20 159/96 H 98 10/11/20 22:27 36.9 C 68 16 156/88 H 96 Laboratory Results 10/12/20 10/12/20 10/12/20 Range/Units 07:29 07:29 07:29 WBC 11.94 H (4.8-10.8) K/uL RBC 3.86 L (4.7-6.1) M/uL Hgb 11.0 L (14.0-18.0) g/dL Hct 35.2 L (42-52) % MCV 91.2 (80-100) fL MCH 28.5 (25-34) pg MCHC 31.3 L (32-36) g/dL RDW Std Deviation 65.3 H (36.4-46.3) fL RDW Coeff of Jigna 19.5 H (11.5-14.5) % Plt Count 567 H (130-400) K/uL MPV 9.3 (7.4-10.4) fL Immature Gran % (Auto) 0.2 % Neut % (Auto) 60.0 % Lymph % (Auto) 19.0 % [place] % (Auto) 8.2 % Eos % (Auto) 10.1 % Baso % (Auto) 2.5 % Neut # (Auto) 7.17 H (1.4-6.5) K/uL Lymph # (Auto) 2.27 (1.2-3.4) K/uL [place] # (Auto) 0.98 H (0.11-0.59) K/uL Eos # (Auto) 1.20 H (0-0.5) K/uL Baso # (Auto) 0.30 H (0-0.2) K/uL Immature Gran # (Auto) 0.02 (0.00-0.02) K/uL ESR 74 H (0-20) mm/hr Sodium 137 (136-145) mmol/L Potassium 5.1 D (3.5-5.1) mmol/L Chloride 107 (98-107) mmol/L Carbon Dioxide 28 (21-32) mmol/L Anion Gap 3.0 (3-11) BUN 16 (7-18) mg/dl Creatinine 0.68 (0.6-1.4) mg/dl Est Cr Clr Drug Dosing 124.1 ml/min Est GFR ( Amer) 121.2 ml/min Est GFR (Non-Af Amer) 104.5 ml/min BUN/Creatinine Ratio 24.1 H (10-20) Glucose 83 (70-99) mg/dl Calcium 8.6 (8.5-10.1) mg/dl C-Reactive Protein 0.96 H (0-0.29) mg/dl Specimen Hemolysis PG Care Time/CCT Total # of Minutes Spent Total Time Spent with Patient: Total time spent is greater than 50% in coordination of care (as documented) at patient's floor/unit and/or counseling patient: Coding Level of Care Code 66511 Subseq Hosp Care Lvl 2 Diagnoses UTI (urinary tract infection) N39.0 Constipation K59.00 Hypertension I10 Hyperlipidemia E78.5 Depression F32.9 Anemia D64.9 GERD (gastroesophageal reflux disease) K21.9 Esophagitis presence: without esophagitis Paraplegia following spinal cord injury G82.20 DVT prophylaxis Z29.9 (1) GERD (gastroesophageal reflux disease) Esophagitis presence: without esophagitis Qualified Code(s): K21.9 - Gastro- esophageal reflux disease without esophagitis
[2020-10-12] MEDS: LINACLOTIDE 145 MCG CAPSULE PO SCH (11:00)
[2020-10-12] MEDS: FLUoxetine HCL 20 MG CAP PO SCH (11:00)
[2020-10-12] MEDS: FERROUS SULFATE 325 MG TAB PO SCH (11:00)
[2020-10-12] MEDS: MULTIVITAMIN TAB PO SCH (11:00)
[2020-10-12] MEDS ORDERED: hydrALAZINE HCL 20 MG/ML VIAL IV PRN (15:31)
[2020-10-12] MEDS ORDERED: SODIUM PHOSPHATE 3 MMOL/1 ML INFUSION IV STA (18:13)
[2020-10-12] MEDS ORDERED: CETIRIZINE HCL 10 MG TABLET PO ONE (18:45)
[2020-10-12] MEDS ORDERED: SODIUM PHOSPHATE 6 MMOL in 0.9 % SODIUM CHLORIDE 100 ML IV ONE (18:45)
[2020-10-12] MEDS: POT PHOSPHATE MONOBASIC W/ SOD TAB PO SCH (19:47)
[2020-10-13] MEDS: ZOLPIDEM TARTRATE 10 MG TAB PO PRN (01:19)
[2020-10-13] MEDS: ATORVASTATIN 20 MG TAB PO SCH ×2 (01:20→23:45)
[2020-10-13] MEDS: AMITRIPTYLINE HCL 50 MG TAB PO SCH ×2 (01:20→23:45)
[2020-10-13] MEDS: DEXTROSE 5% IV SCH ×4 (01:20→23:46)
[2020-10-13] MEDS: CEFIDEROCOL SULFATE TOSYLATE IV SCH ×4 (01:20→23:46)
[2020-10-13] MEDS: EUCERIN CR 120 GM JAR EXT SCH ×3 (05:45→21:56)
--- NOTE | 2020-10-13 08:17 | Hospitalist Progress Note ---
Date of Service October 13, 2020 Assessment & Plan (1) UTI (urinary tract infection): Plan: Recurrent UTIs in the setting of neurogenic bladder and obstructive uropathy. Catheter-associated /complicated UTI as patient has chronic indwelling Garrison catheter due to neurogenic bladder. * Takes methenamine hippurate as an outpatient for prophylaxis. * Seen in ER 09/24 for constipation and UTI symptoms --> sent home and called for IV Meropenem based on Urine Cx/s with MDR pseudomonas * Patient is s/p ureteral stent exchange with Dr. Mcintosh 09/26/20 -- per hx, patient with b/l hydroureteronephrosis 2nd to fecal impaction * (of note patient with LARGE LARGE BM about 1.5 wks ago and regular BMs since that time). * ID consulted on 09/30, Dr Caban * --> Recommend Cefiderocol + tobramycin. ID recommending 2 weeks of IV antibiotic therapy * Unfortunately the initially Urine C&S showed sensitivity to the tobramycin but this can not be used as monotherapy as it is only for synergy effect * Per in house lab/and outsourced lab, sensitivities can not yet be ran of Cefiderocol. * ID recommending stopping tobramycin and using single agent Cefiderocol (stopped on 10/06/20) Pt has peripheral ultrasound-guided IV. Due to cost/availability for abx @ [facility], will need to remain inpatient for completion 10/13 Today valentino #13 of treatment, however per discussion with ID on 10/10, recs for extension of Cefiderocol for 7 days (to be completed 10/16) Recs for Diflucan x 14 days (day 4) WBC within normal limits day ESR/CRP slightly up with elevated eosinophils but kidney function stable --> monitor closely while on Cefiderocol for possible AIN (eosinophils decreasing) LFTs normal but would periodically check while on fluconazole Urology for stent exchange in 2 months --> will need done sooner if WBC elevates with above or patient develops fever Of note, ID made note that the patient will likely return with the same issue without stent and stone removal. Continue to monitor (2) Constipation: Plan: *contributory to hydro per Urology in history --> large BM last week and c ontinues to move bowels Loose stools have since resolved with de-escalation of bowel regimen. Continue Linzess Miralax and fleets enemas ordered as needed No bowel movement since 10/11 and discussed administering soapsuds today soap suds available prn Continue to monitor (3) Hypertension: Plan: No medications on board. Blood pressure had been running elevated was placed on lisinopril Given elevated potassium at 5.1 and restricted kidney diet on above antibiotics decision was made to decrease lisinopril to 5 mg daily and add amlodipine 5 mg Blood pressure 105/71 this afternoon and will hold amlodipine in a.m. and monitor pressures on low-dose Hydralazine prn Continue to monitor (4) Hyperlipidemia: Plan: Continue atorvastatin (5) Depression: Plan: Continue fluoxetine (6) Anemia: Plan: stable Episode gross hematuria -- resolved with holding ASA and stopping lovenox Hgb stable and actually improved. no obvious hematuria currently Continue to monitor while on Lovenox (7) GERD (gastroesophageal reflux disease): Plan: On omeprazole at home. Ordered Pantoprazole 40mg PO BID while inpatient. (8) Paraplegia following spinal cord injury: Plan: Working with CM. Likely placement as it has become hard to treat him at home --> Discussed with patient and he is agreeable for rehab. Notified case management and they discussed with patient and are sending referrals. Bed may be available at SNF on Saturday. Continue to monitor (9) DVT prophylaxis: Plan: Lovenox (held for gross hematuria, now resolved) Since resumed Lovenox and no bleeding, hgb improved Patient was requesting Covid vaccine now. advised against COVID vaccine for now. I do encourage that the patient be vaccination just not while he is being treated for an active infection as the vaccine can trigger an immune response causing F/C, JACKSON, myalgias/arthralgias N/V, etc. Would not know if it were the vaccine vs suboptimal treatment of active infection Plan: Continued inpatient stay on abx/antifungals until completion of IV abx inpatient (not able to arrange at SNF) Possible discharge to SNF on Saturday after antibiotics completed if they have a bed. Case management following Admission and Anticipated Discharge Date Admission Date: September 24, 2020 Supervising Physician Co-Signing Physician Notes PA Supervision Note: I did not personally see or examine the patient today, but I verified all pleitez points of BEV Cantu's assessment and plan with the following exceptions/additions: None Subjective Patient evaluated this morning. Doing well. Discussed rehab versus home at discharge and outpatient to go home he is agreeable and realizes that he would benefit from some rehab at least in the short-term. To regain some of his strength. We will alert case management and attempt to arrange this so that we could potentially get him to rehab on Saturday when his IV antibiotics will be completed and he can continue on oral fluconazole for an additional 7 days as recommended by ID. Patient had not moved his bowels yesterday and did discuss repeating soapsuds enema today to help keep him regulated. Patient agreeable plan. Chills chest pain shortness of breath palpitations cough abdominal pain nausea vomiting dysuria at this time. His urine is concentrated in his Garrison but later than yesterday and he is attempting to push more fluids. Review of Systems Review of Systems: All systems reviewed & are unremarkable except as noted in HPI & below Physical Exam Physical Exam: General: WD, WN, chronically ill appearing but resting comfortably in his hospital bed. NAD. Neck: No JVD. Negative hepatojugular reflex. mmm Cardiac: RRR without M/G/R Lungs: CTA without W/R/R, on room air Abdomen: Normoactive X4. Soft and nontender in all quadrants. Palpable stool appreciated Extremities/skin: No peripheral clubbing cyanosis or edema. b/l heel pressure ulcers with [place] pads-- good granulation tissue present. erythema to b/l buttocks with stoma powder Neuro: A&O X4 cranial nerves II through XII are grossly intact no focal neuro deficits, chronic paraplegia : garrison draining yellow doll wig maker rooted hair yellow urine Results & Data Results & Data ([facility]) Vital Signs (Past 12 Hours) Vital Signs Temp Pulse Resp BP Pulse Ox 10/13/20 07:00 36.6 C 70 20 164/90 H 98 10/12/20 22:24 36.5 C 63 16 118/66 97 Laboratory Results 10/12/20 10/12/20 Range/Units 07:29 07:29 Sodium 137 (136-145) mmol/L Potassium 5.1 D (3.5-5.1) mmol/L Chloride 107 (98-107) mmol/L Carbon Dioxide 28 (21-32) mmol/L Anion Gap 3.0 (3-11) BUN 16 (7-18) mg/dl Creatinine 0.68 (0.6-1.4) mg/dl Est Cr Clr Drug Dosing 124.1 ml/min Est GFR ( Amer) 121.2 ml/min Est GFR (Non-Af Amer) 104.5 ml/min BUN/Creatinine Ratio 24.1 H (10-20) Glucose 83 (70-99) mg/dl Calcium 8.6 (8.5-10.1) mg/dl Phosphorus 1.8 L (2.5-4.9) mg/dl C-Reactive Protein 0.96 H (0-0.29) mg/dl Specimen Hemolysis PG Care Time/CCT Total # of Minutes Spent Total Time Spent with Patient: Total time spent is greater than 50% in coordination of care (as documented) at patient's floor/unit and/or counseling patient: Coding Level of Care Code 54152 Subseq Hosp Care Lvl 3 Diagnoses UTI (urinary tract infection) N39.0 Constipation K59.00 Hypertension I10 Hyperlipidemia E78.5 Depression F32.9 Anemia D64.9 GERD (gastroesophageal reflux disease) K21.9 Esophagitis presence: without esophagitis Paraplegia following spinal cord injury G82.20 DVT prophylaxis Z29.9 (1) GERD (gastroesophageal reflux disease) Esophagitis presence: without esophagitis Qualified Code(s): K21.9 - Gastro- esophageal reflux disease without esophagitis
[2020-10-13 08:45] LABS: Basophils # (auto) 0.26 K/uL (0-0.2); Basophils % (auto) 2.6 %; Eosinophils # (auto) 0.79 K/uL (0-0.5); Eosinophils % (auto) 7.9 %; Hematocrit (blood only) 34.9 % (42-52); Hemoglobin 10.9 g/dL (14.0-18.0); Immature Granulocytes # (auto) 0.01 K/uL (0.00-0.02); Immature Granulocytes % (auto) 0.1 %; Lymphocytes # (auto) 1.69 K/uL (1.2-3.4); Lymphocytes % (auto) 16.8 %; Mean Corpuscular Hemoglobin 28.5 pg (25-34); Mean Corpuscular Hgb Conc 31.2 g/dL (32-36); Mean Corpuscular Volume 91.1 fL (80-100); Mean Platelet Volume 9.2 fL (7.4-10.4); Monocytes # (auto) 0.71 K/uL (0.11-0.59); Monocytes % (auto) 7.1 %; Neutrophils % (auto) 65.5 %; Platelet Count 563 K/uL (130-400); RDW Coefficient of Variation 19.6 % (11.5-14.5); RDW Standard Deviation 65.3 fL (36.4-46.3); Red Blood Count 3.83 M/uL (4.7-6.1); White Blood Count 10.06 K/uL (4.8-10.8)
[2020-10-13] MEDS ORDERED: amLODIPine BESYLATE 5 MG TAB PO SCH (09:00)
[2020-10-13] MEDS: oxyCODONE/ACETAMINOPHEN 10-325 TAB PO PRN ×3 (09:02→21:54)
[2020-10-13] MEDS: ASCORBIC ACID 500 MG TAB PO SCH ×2 (09:02→21:55)
[2020-10-13] MEDS: PANTOprazole 40 MG TAB PO SCH ×2 (09:03→21:55)
[2020-10-13] MEDS: lisinopril 5 MG TAB PO SCH (09:03)
[2020-10-13] MEDS: POT PHOSPHATE MONOBASIC W/ SOD TAB PO SCH ×4 (09:04→21:56)
[2020-10-13] MEDS: ENOXAPARIN INJ 40 MG/0.4 ML SYR SQ SCH (09:04)
[2020-10-13 09:14] LABS: Albumin Level 2.4 gm/dl (3.4-5.0); BUN Creatinine Ratio 30.3 (10-20); C Reactive Protein 1.14 mg/dl (0-0.29); Calcium 8.7 mg/dl (8.5-10.1); Creatinine Clr Calc Pharmacy 133.9 ml/min; Est GFR (Non-African American) 107.9 ml/min; Magnesium 2.1 mg/dl (1.8-2.4); Potassium 4.6 mmol/L (3.5-5.1)
[2020-10-13 09:17] LABS: Albumin Globulin Ratio 0.5 (0.9-2); Bilirubin,Total 0.3 mg/dl (0.2-1); Globulin 5.1 gm/dl (2.5-4.0); Phosphorus 1.9 mg/dl (2.5-4.9); Total Protein 7.5 gm/dl (6.4-8.2)
[2020-10-13] MEDS ORDERED: POTASSIUM PHOS 3 MMOL/1 ML INFUSION IV STA (09:34)
[2020-10-13] MEDS ORDERED: POTASSIUM PHOSPHATE 15 MMOL in SODIUM CHLORIDE 0.9% 250 ML IV ONE (10:00)
[2020-10-13] MEDS: FLUCONAZOLE 100 MG TAB PO SCH (12:17)
[2020-10-13] MEDS: MULTIVITAMIN TAB PO SCH (12:17)
[2020-10-13] MEDS: LINACLOTIDE 145 MCG CAPSULE PO SCH (12:17)
[2020-10-13] MEDS: FLUoxetine HCL 20 MG CAP PO SCH (12:17)
[2020-10-13] MEDS: FERROUS SULFATE 325 MG TAB PO SCH (12:18)
[2020-10-13] MEDS: CETIRIZINE HCL 10 MG TABLET PO SCH (18:20)
[2020-10-14] MEDS: EUCERIN CR 120 GM JAR EXT SCH ×3 (05:50→21:24)
--- NOTE | 2020-10-14 08:51 | Hospitalist Progress Note ---
Date of Service October 14, 2020 Assessment & Plan (1) UTI (urinary tract infection): Plan: Recurrent UTIs in the setting of neurogenic bladder and obstructive uropathy. Catheter-associated /complicated UTI as patient has chronic indwelling Garrison catheter due to neurogenic bladder. * Takes methenamine hippurate as an outpatient for prophylaxis. * Seen in ER 09/24 for constipation and UTI symptoms --> sent home and called for IV Meropenem based on Urine Cx/s with MDR pseudomonas * Patient is s/p ureteral stent exchange with Dr. Mcintosh 09/26/20 -- per hx, patient with b/l hydroureteronephrosis 2nd to fecal impaction * (of note patient with LARGE LARGE BM about 1.5 wks ago and regular BMs since that time). * ID consulted on 09/30, Dr Caban * --> Recommend Cefiderocol + tobramycin. ID recommending 2 weeks of IV antibiotic therapy * Unfortunately the initially Urine C&S showed sensitivity to the tobramycin but this can not be used as monotherapy as it is only for synergy effect * Per in house lab/and outsourced lab, sensitivities can not yet be ran of Cefiderocol. * ID recommending stopping tobramycin and using single agent Cefiderocol (stopped on 10/06/20) Pt has peripheral ultrasound-guided IV. Due to cost/availability for abx @ [facility], will need to remain inpatient for completion 10/14 Today valentino #14 of treatment, however per discussion with ID on 10/10, recs for extension of Cefiderocol for 7 days (to be completed 10/16) Recs for Diflucan x 14 days (day 5) WBC WNL 8.8k, afebrile ESR/CRP slightly up with elevated eosinophils but kidney function stable --> monitor closely while on Cefiderocol for possible AIN (eosinophils decreasing and now normal) LFTs normal but would periodically check while on fluconazole -- slight elevation in ALP 119 but suspect congestion from constipation Urology for stent exchange in 2 months --> will need done sooner if WBC elevates with above or patient develops fever Of note, ID made note that the patient will likely return with the same issue without stent and stone removal. Continue to monitor (2) Constipation: Plan: *contributory to hydro per Urology in history --> large BM last week and continues to move bowels Loose stools have since resolved with de-escalation of bowel regimen. Continue Linzess Miralax and fleets enemas ordered as needed No bowel movement since 10/11 and discussed administering soapsuds today--> had not been given as ordered on 10/11 and 10/13 but RN did administer x1 today Continue to monitor (3) Hypertension: Plan: No medications on board. Blood pressure had been running elevated was placed on lisinopril Given elevated potassium at 5.1 and restricted kidney diet on above antibiotics decision was made to decrease lisinopril to 5 mg daily and add amlodipine 5 mg (held and BP stable) BP remains stable 129/87 Continue on lisinopril 5mg daily alone Hydralazine prn Continue to monitor (4) Hyperlipidemia: Plan: Continue atorvastatin (5) Depression: Plan: Continue fluoxetine (6) Anemia: Plan: stable Episode gross hematuria -- resolved with holding ASA and stopping lovenox Hgb stable and actually improved. no obvious hematuria currently Continue to monitor while on Lovenox (7) GERD (gastroesophageal reflux disease): Plan: On omeprazole at home. Ordered Pantoprazole 40mg PO BID while inpatient. (8) Paraplegia following spinal cord injury: Plan: Working with CM. Likely placement as it has become hard to treat him at home --> see below (9) DVT prophylaxis: Plan: Lovenox (held for gross hematuria, now resolved) Since resumed Lovenox and no bleeding, hgb improved Plan: Continued inpatient stay on abx/antifungals until completion of IV abx inpatient (not able to arrange at SNF) 10/14--> Bed available on Saturday after abx completed. Auth applied for today. Will need to discuss with about transport to [place] about paying for wheelchair van vs private vehicle Admission and Anticipated Discharge Date Admission Date: September 24, 2020 Supervising Physician Co-Signing Physician Notes PA Supervision Note: I did not personally see or examine the patient today, but I verified all pleitez points of BEV Cantu's assessment and plan with the following exceptions/additions: None Subjective Patient evaluated this afternoon. Doing well, eating/drinking more. Good appetite. Urine car seat maker in Garrison back, almost clear urine. Currently eating lunch. Discussed labs look good and SNF may have bed Saturday after antibiotics but still awaiting to see at this time. No fever chills chest pain shortness of breath, cough, abdominal pain, nausea, vomiting at this time. Given soap suds enema by RN this morning and awaiting bowel movement. Review of Systems Review of Systems: All systems reviewed & are unremarkable except as noted in HPI & below Physical Exam Physical Exam: General: WD, WN, chronically ill appearing but resting comfortably in his hospital bed. NAD. eating lunch Neck: No JVD. Negative hepatojugular reflex. mmm Cardiac: RRR without M/G/R Lungs: CTA without W/R/R, on room air Abdomen: Normoactive X4. Soft and nontender in all quadrants. Palpable stool appreciated Extremities/skin: No peripheral clubbing cyanosis or edema. b/l heel pressure ulcers with [place] pads-- good granulation tissue present. erythema to b/l buttocks with stoma powder Neuro: A&O X4 cranial nerves II through XII are grossly intact no focal neuro deficits, chronic paraplegia : garrison draining clear yellow urine Results & Data Results & Data ([facility]) Vital Signs (Past 12 Hours) Vital Signs Temp Pulse Resp BP Pulse Ox 10/14/20 07:17 36.6 C 71 17 129/87 97 10/13/20 23:22 36.7 C 69 16 134/86 96 Laboratory Results 10/14/20 10/14/20 Range/Units 09:27 09:27 WBC 8.81 (4.8-10.8) K/uL RBC 4.01 L (4.7-6.1) M/uL Hgb 11.4 L (14.0-18.0) g/dL Hct 36.6 L (42-52) % MCV 91.3 (80-100) fL MCH 28.4 (25-34) pg MCHC 31.1 L (32-36) g/dL RDW Std Deviation 66.0 H (36.4-46.3) fL RDW Coeff of Jigna 19.5 H (11.5-14.5) % Plt Count 559 H (130-400) K/uL MPV 9.3 (7.4-10.4) fL Immature Gran % (Auto) 0.2 % Neut % (Auto) 67.7 % Lymph % (Auto) 18.7 % [place] % (Auto) 4.9 % Eos % (Auto) 6.5 % Baso % (Auto) 2.0 % Neut # (Auto) 5.96 (1.4-6.5) K/uL Lymph # (Auto) 1.65 (1.2-3.4) K/uL Glenn # (Auto) 0.43 (0.11-0.59) K/uL Eos # (Auto) 0.57 H (0-0.5) K/uL Baso # (Auto) 0.18 (0-0.2) K/uL Immature Gran # (Auto) 0.02 (0.00-0.02) K/uL Sodium 134 L (136-145) mmol/L Potassium 4.3 (3.5-5.1) mmol/L Chloride 104 (98-107) mmol/L Carbon Dioxide 27 (21-32) mmol/L Anion Gap 3.0 (3-11) BUN 24 H (7-18) mg/dl Creatinine 0.70 (0.6-1.4) mg/dl Est Cr Clr Drug Dosing 120.5 ml/min Est GFR ( Amer) 119.7 ml/min Est GFR (Non-Af Amer) 103.3 ml/min BUN/Creatinine Ratio 34.4 H (10-20) Glucose 119 H (70-99) mg/dl Calcium 8.7 (8.5-10.1) mg/dl Phosphorus 2.4 L (2.5-4.9) mg/dl Magnesium 2.5 H (1.8-2.4) mg/dl Total Bilirubin 0.3 (0.2-1) mg/dl AST 24 (15-37) U/L ALT 27 (12-78) U/L Alkaline Phosphatase 119 H (45-117) U/L Total Protein 8.0 (6.4-8.2) gm/dl Albumin 2.5 L (3.4-5.0) gm/dl Globulin 5.5 H (2.5-4.0) gm/dl Albumin/Globulin Ratio 0.5 L (0.9-2) PG Care Time/CCT Total # of Minutes Spent Total Time Spent with Patient: Total time spent is greater than 50% in coordination of care (as documented) at patient's floor/unit and/or counseling patient: Coding Level of Care Code 79225 Subseq Hosp Care Lvl 2 Diagnoses UTI (urinary tract infection) N39.0 Constipation K59.00 Hypertension I10 Hyperlipidemia E78.5 Depression F32.9 Anemia D64.9 GERD (gastroesophageal reflux disease) K21.9 Esophagitis presence: without esophagitis Paraplegia following spinal cord injury G82.20 DVT prophylaxis Z29.9 (1) GERD (gastroesophageal reflux disease) Esophagitis presence: without esophagitis Qualified Code(s): K21.9 - Gastro- esophageal reflux disease without esophagitis
[2020-10-14] MEDS: DEXTROSE 5% IV SCH ×2 (09:24→16:23)
[2020-10-14] MEDS: CEFIDEROCOL SULFATE TOSYLATE IV SCH ×2 (09:24→16:23)
[2020-10-14] MEDS: CETIRIZINE HCL 10 MG TABLET PO SCH (09:25)
[2020-10-14] MEDS: ASCORBIC ACID 500 MG TAB PO SCH ×2 (09:26→21:24)
[2020-10-14] MEDS: PANTOprazole 40 MG TAB PO SCH ×2 (09:26→21:24)
[2020-10-14] MEDS: ENOXAPARIN INJ 40 MG/0.4 ML SYR SQ SCH (09:27)
[2020-10-14] MEDS: lisinopril 5 MG TAB PO SCH (09:28)
[2020-10-14] MEDS: FLUCONAZOLE 100 MG TAB PO SCH (09:28)
[2020-10-14] MEDS: POT PHOSPHATE MONOBASIC W/ SOD TAB PO SCH ×4 (09:29→21:24)
[2020-10-14 09:52] LABS: Basophils # (auto) 0.18 K/uL (0-0.2); Eosinophils # (auto) 0.57 K/uL (0-0.5); Eosinophils % (auto) 6.5 %; Hematocrit (blood only) 36.6 % (42-52); Hemoglobin 11.4 g/dL (14.0-18.0); Immature Granulocytes # (auto) 0.02 K/uL (0.00-0.02); Immature Granulocytes % (auto) 0.2 %; Lymphocytes # (auto) 1.65 K/uL (1.2-3.4); Lymphocytes % (auto) 18.7 %; Mean Corpuscular Hemoglobin 28.4 pg (25-34); Mean Corpuscular Hgb Conc 31.1 g/dL (32-36); Mean Corpuscular Volume 91.3 fL (80-100); Mean Platelet Volume 9.3 fL (7.4-10.4); Monocytes # (auto) 0.43 K/uL (0.11-0.59); Monocytes % (auto) 4.9 %; Neutrophils # (auto) 5.96 K/uL (1.4-6.5); Neutrophils % (auto) 67.7 %; Platelet Count 559 K/uL (130-400); RDW Coefficient of Variation 19.5 % (11.5-14.5); Red Blood Count 4.01 M/uL (4.7-6.1); White Blood Count 8.81 K/uL (4.8-10.8)
[2020-10-14 10:31] LABS: Albumin Level 2.5 gm/dl (3.4-5.0); BUN Creatinine Ratio 34.4 (10-20); Calcium 8.7 mg/dl (8.5-10.1); Creatinine Clr Calc Pharmacy 120.5 ml/min; Est GFR (African American) 119.7 ml/min; Est GFR (Non-African American) 103.3 ml/min; Magnesium 2.5 mg/dl (1.8-2.4); Potassium 4.3 mmol/L (3.5-5.1)
[2020-10-14 10:33] LABS: Albumin Globulin Ratio 0.5 (0.9-2); Bilirubin,Total 0.3 mg/dl (0.2-1); Globulin 5.5 gm/dl (2.5-4.0); Phosphorus 2.4 mg/dl (2.5-4.9)
[2020-10-14] MEDS ORDERED: POTASSIUM PHOS 3 MMOL/1 ML INFUSION IV STA (10:51)
[2020-10-14] MEDS ORDERED: POTASSIUM PHOSPHATE 6 MMOL in 0.9 % SODIUM CHLORIDE 100 ML IV ONE (11:15)
[2020-10-14] MEDS: oxyCODONE/ACETAMINOPHEN 10-325 TAB PO PRN ×2 (11:23→19:35)
[2020-10-14] MEDS: FLUoxetine HCL 20 MG CAP PO SCH (11:24)
[2020-10-14] MEDS: FERROUS SULFATE 325 MG TAB PO SCH (11:25)
[2020-10-14] MEDS: MULTIVITAMIN TAB PO SCH (11:25)
[2020-10-14] MEDS: LINACLOTIDE 145 MCG CAPSULE PO SCH (11:25)
[2020-10-15] MEDS: ATORVASTATIN 20 MG TAB PO SCH (00:09)
[2020-10-15] MEDS: AMITRIPTYLINE HCL 50 MG TAB PO SCH (00:09)
[2020-10-15] MEDS: DEXTROSE 5% IV SCH ×3 (00:10→17:01)
[2020-10-15] MEDS: CEFIDEROCOL SULFATE TOSYLATE IV SCH ×3 (00:10→17:01)
[2020-10-15] MEDS: ZOLPIDEM TARTRATE 10 MG TAB PO PRN (00:19)
[2020-10-15] MEDS: EUCERIN CR 120 GM JAR EXT SCH ×3 (05:38→22:48)
--- NOTE | 2020-10-15 08:19 | Hospitalist Progress Note ---
Date of Service October 15, 2020 Assessment & Plan (1) UTI (urinary tract infection): Plan: Recurrent UTIs in the setting of neurogenic bladder and obstructive uropathy. Catheter-associated /complicated UTI as patient has chronic indwelling Garrison catheter due to neurogenic bladder. * Takes methenamine hippurate as an outpatient for prophylaxis. * Seen in ER 09/24 for constipation and UTI symptoms --> sent home and called for IV Meropenem based on Urine Cx/s with MDR pseudomonas * Patient is s/p ureteral stent exchange with Dr. Mcintosh 09/26/20 -- per hx, patient with b/l hydroureteronephrosis 2nd to fecal impaction * (of note patient with LARGE LARGE BM about 1.5 wks ago and regular BMs since that time). * ID consulted on 09/30, Dr Caban * --> Recommend Cefiderocol + tobramycin. ID recommending 2 weeks of IV antibiotic therapy * Unfortunately the initially Urine C&S showed sensitivity to the tobramycin but this can not be used as monotherapy as it is only for synergy effect * Per in house lab/and outsourced lab, sensitivities can not yet be ran of Cefiderocol. * ID recommending stopping tobramycin and using single agent Cefiderocol (stopped on 10/06/20) 10/15 Today valentino #14 of treatment, however per discussion with ID on 10/10, recs for extension of Cefiderocol for 7 days (to be completed 10/16) Recs for Diflucan x 14 days (day 6) WBC WNL, remains afebrile Will repeat CBC, CMP, mag, phos, esr, crp in AM to ensure stability prior to d/c to rehab tomorrow. [place] to have bed and will arrange for transport after abx finished *Will need to d/c US guided peripheral IV tomorrow prior to d/c Urology for stent exchange in 2 months --> will need done sooner if WBC elevates with above or patient develops fever Of note, ID made note that the patient will likely return with the same issue without stent and stone removal. Continue to monitor (2) Constipation: Plan: *contributory to hydro per Urology in history --> large BM last week and continues to move bowels Loose stools have since resolved with de-escalation of bowel regimen. Continue Linzess Miralax and fleets enemas ordered as needed ++Large BM 10/14 Supp Q3D as discussed with patient if no BM Continue to monitor (3) Hypertension: Plan: No medications on board. Blood pressure had been running elevated was placed on lisinopril 10mg daily BP controlled currently on reduced dose to 5mg daily and remains off of amlodipine as added previously BP currently 129/76 Hydralazine prn Continue to monitor (4) Hyperlipidemia: Plan: Continue atorvastatin (5) Depression: Plan: Continue fluoxetine (6) Anemia: Plan: stable Episode gross hematuria -- resolved with holding ASA and stopping lovenox Hgb stable and actually improved. no obvious hematuria currently on Lovenox and actually saw maker yellow than in days past CBC in AM (7) GERD (gastroesophageal reflux disease): Plan: On omeprazole at home. Pantoprazole 40mg PO BID while inpatient. (8) Paraplegia following spinal cord injury: Plan: Working with CM. Likely placement as it has become hard to treat him at home --> see below (9) DVT prophylaxis: Plan: Lovenox (held for gross hematuria, now resolved) Since resumed Lovenox and no bleeding, hgb improved Plan: Continued inpatient stay on abx/antifungals until completion of IV abx inpatient (not able to arrange at SNF) 10/15--> Bed available on Saturday after abx completed, auth received and should be able for d/c after tomorrow afternoon abx to [place] Admission and Anticipated Discharge Date Admission Date: September 24, 2020 Supervising Physician Co-Signing Physician Notes PA Supervision Note: I did not personally see or examine the patient today, but I verified all pleitez points of BEV Cantu's assessment and plan with the following exceptions/additions: None Subjective Patient evaluated this morning. Doing well. +BM after soap suds yesterday and discussed suppository every two or three days to help keep regular. No fever, chills, chest pain, shortness of breath, abdominal pain nausea or vomiting. Discussed if bed available tomorrow will arrange for dc after abx. Review of Systems Review of Systems: All systems reviewed & are unremarkable except as noted in HPI & below Physical Exam Physical Exam: General: WD, WN, chronically ill appearing but resting comfortably in his hospital bed. NAD. eating lunch Neck: No JVD. Negative hepatojugular reflex. mmm Cardiac: RRR without M/G/R Lungs: CTA without W/R/R, on room air Abdomen: Normoactive X4. Soft and nontender in all quadrants. Extremities/skin: No peripheral clubbing cyanosis or edema. b/l heel pressure ulcers with Toro pads-- good granulation tissue present. erythema to b/l buttocks with stoma powder Neuro: A&O X4 cranial nerves II through XII are grossly intact no focal neuro deficits, chronic paraplegia : garrison draining light clear yellow urine Results & Data Results & Data ([facility]) Vital Signs (Past 12 Hours) Vital Signs Temp Pulse Resp BP BP Pulse Ox 10/15/20 05:45 37.0 C 72 14 144/91 H 98 10/14/20 22:45 37.1 C 70 16 162/75 H 95 Laboratory Results 10/15/20 10/15/20 10/14/20 Range/Units 08:49 08:49 19:03 WBC 10.27 (4.8-10.8) K/uL RBC 4.13 L (4.7-6.1) M/uL Hgb 12.0 L (14.0-18.0) g/dL Hct 37.4 L (42-52) % MCV 90.6 (80-100) fL MCH 29.1 (25-34) pg MCHC 32.1 (32-36) g/dL RDW Std Deviation 64.6 H (36.4-46.3) fL RDW Coeff of Jigna 19.4 H (11.5-14.5) % Plt Count 601 H (130-400) K/uL MPV 9.3 (7.4-10.4) fL Sodium 137 (136-145) mmol/L Potassium 4.2 (3.5-5.1) mmol/L Chloride 107 (98-107) mmol/L Carbon Dioxide 26 (21-32) mmol/L Anion Gap 5.0 (3-11) BUN 22 H (7-18) mg/dl Creatinine 0.60 (0.6-1.4) mg/dl Est Cr Clr Drug Dosing 140.6 ml/min Est GFR ( Amer) 127.6 ml/min Est GFR (Non-Af Amer) 110.1 ml/min BUN/Creatinine Ratio 36.1 H (10-20) Glucose 93 (70-99) mg/dl Calcium 9.0 (8.5-10.1) mg/dl Phosphorus 2.1 L (2.5-4.9) mg/dl Magnesium 2.1 (1.8-2.4) mg/dl Total Bilirubin 0.3 (0.2-1) mg/dl AST 30 (15-37) U/L ALT 30 (12-78) U/L Alkaline Phosphatase 123 H (45-117) U/L Total Protein 8.4 H (6.4-8.2) gm/dl Albumin 2.6 L (3.4-5.0) gm/dl Globulin 5.8 H (2.5-4.0) gm/dl Albumin/Globulin Ratio 0.4 L (0.9-2) COVID-19 Eval Order SARS-CoV-2, RNA, NAAT NEGATIVE (NEGATIVE) 10/14/20 Range/Units 19:03 WBC (4.8-10.8) K/uL RBC (4.7-6.1) M/uL Hgb (14.0-18.0) g/dL Hct (42-52) % MCV (80-100) fL MCH (25-34) pg MCHC (32-36) g/dL RDW Std Deviation (36.4-46.3) fL RDW Coeff of Jigna (11.5-14.5) % Plt Count (130-400) K/uL MPV (7.4-10.4) fL Sodium (136-145) mmol/L Potassium (3.5-5.1) mmol/L Chloride (98-107) mmol/L Carbon Dioxide (21-32) mmol/L Anion Gap (3-11) BUN (7-18) mg/dl Creatinine (0.6-1.4) mg/dl Est Cr Clr Drug Dosing ml/min Est GFR ( Amer) ml/min Est GFR (Non-Af Amer) ml/min BUN/Creatinine Ratio (10-20) Glucose (70-99) mg/dl Calcium (8.5-10.1) mg/dl Phosphorus (2.5-4.9) mg/dl Magnesium (1.8-2.4) mg/dl Total Bilirubin (0.2-1) mg/dl AST (15-37) U/L ALT (12-78) U/L Alkaline Phosphatase (45-117) U/L Total Protein (6.4-8.2) gm/dl Albumin (3.4-5.0) gm/dl Globulin (2.5-4.0) gm/dl Albumin/Globulin Ratio (0.9-2) COVID-19 Eval [facility] SARS-CoV-2, RNA, NAAT (NEGATIVE) PG Care Time/CCT Total # of Minutes Spent Total Time Spent with Patient: Total time spent is greater than 50% in c oordination of care (as documented) at patient's floor/unit and/or counseling patient: Coding Level of Care Code 35747 Subseq Hosp Care Lvl 2 Diagnoses UTI (urinary tract infection) N39.0 Constipation K59.00 Hypertension I10 Hyperlipidemia E78.5 Depression F32.9 Anemia D64.9 GERD (gastroesophageal reflux disease) K21.9 Esophagitis presence: without esophagitis Paraplegia following spinal cord injury G82.20 DVT prophylaxis Z29.9 (1) GERD (gastroesophageal reflux disease) Esophagitis presence: without esophagitis Qualified Code(s): K21.9 - Gastro- esophageal reflux disease without esophagitis
[2020-10-15] MEDS: FLUCONAZOLE 100 MG TAB PO SCH (08:23)
[2020-10-15] MEDS: ASCORBIC ACID 500 MG TAB PO SCH ×2 (08:23→20:07)
[2020-10-15] MEDS: PANTOprazole 40 MG TAB PO SCH ×2 (08:23→20:07)
[2020-10-15] MEDS: POT PHOSPHATE MONOBASIC W/ SOD TAB PO SCH ×4 (08:23→20:06)
[2020-10-15] MEDS: lisinopril 5 MG TAB PO SCH (08:24)
[2020-10-15] MEDS: ENOXAPARIN INJ 40 MG/0.4 ML SYR SQ SCH (08:24)
[2020-10-15] MEDS: CETIRIZINE HCL 10 MG TABLET PO SCH (08:24)
[2020-10-15] MEDS: oxyCODONE/ACETAMINOPHEN 10-325 TAB PO PRN ×3 (08:29→20:07)
[2020-10-15 08:57] LABS: Hematocrit (blood only) 37.4 % (42-52); Mean Corpuscular Hemoglobin 29.1 pg (25-34); Mean Corpuscular Hgb Conc 32.1 g/dL (32-36); Mean Corpuscular Volume 90.6 fL (80-100); Mean Platelet Volume 9.3 fL (7.4-10.4); Platelet Count 601 K/uL (130-400); RDW Coefficient of Variation 19.4 % (11.5-14.5); RDW Standard Deviation 64.6 fL (36.4-46.3); Red Blood Count 4.13 M/uL (4.7-6.1); White Blood Count 10.27 K/uL (4.8-10.8)
[2020-10-15 09:40] LABS: Albumin Level 2.6 gm/dl (3.4-5.0); BUN Creatinine Ratio 36.1 (10-20); Creatinine Clr Calc Pharmacy 140.6 ml/min; Est GFR (African American) 127.6 ml/min; Est GFR (Non-African American) 110.1 ml/min; Magnesium 2.1 mg/dl (1.8-2.4); Potassium 4.2 mmol/L (3.5-5.1)
[2020-10-15 09:43] LABS: Albumin Globulin Ratio 0.4 (0.9-2); Bilirubin,Total 0.3 mg/dl (0.2-1); Globulin 5.8 gm/dl (2.5-4.0); Phosphorus 2.1 mg/dl (2.5-4.9); Total Protein 8.4 gm/dl (6.4-8.2)
[2020-10-15] MEDS ORDERED: POTASSIUM PHOS 3 MMOL/1 ML INFUSION IV STA (09:56)
[2020-10-15] MEDS ORDERED: POTASSIUM PHOSPHATE 15 MMOL in SODIUM CHLORIDE 0.9% 250 ML IV ONE (10:00)
[2020-10-15] MEDS: FERROUS SULFATE 325 MG TAB PO SCH (10:53)
[2020-10-15] MEDS: MULTIVITAMIN TAB PO SCH (10:53)
[2020-10-15] MEDS: LINACLOTIDE 145 MCG CAPSULE PO SCH (10:54)
[2020-10-15] MEDS: FLUoxetine HCL 20 MG CAP PO SCH (10:54)
[2020-10-16] MEDS: DEXTROSE 5% IV SCH ×3 (00:09→15:24)
[2020-10-16] MEDS: ZOLPIDEM TARTRATE 10 MG TAB PO PRN (00:09)
[2020-10-16] MEDS: AMITRIPTYLINE HCL 50 MG TAB PO SCH (00:09)
[2020-10-16] MEDS: ATORVASTATIN 20 MG TAB PO SCH (00:09)
[2020-10-16] MEDS: CEFIDEROCOL SULFATE TOSYLATE IV SCH ×3 (00:09→15:24)
[2020-10-16] MEDS: EUCERIN CR 120 GM JAR EXT SCH ×2 (05:55→13:04)
[2020-10-16] MEDS: ASCORBIC ACID 500 MG TAB PO SCH (07:49)
[2020-10-16] MEDS: CETIRIZINE HCL 10 MG TABLET PO SCH (07:49)
[2020-10-16] MEDS: FLUCONAZOLE 100 MG TAB PO SCH (07:50)
[2020-10-16] MEDS: PANTOprazole 40 MG TAB PO SCH (07:50)
[2020-10-16] MEDS: ENOXAPARIN INJ 40 MG/0.4 ML SYR SQ SCH (07:50)
[2020-10-16] MEDS: POT PHOSPHATE MONOBASIC W/ SOD TAB PO SCH ×3 (07:51→17:26)
[2020-10-16] MEDS: lisinopril 5 MG TAB PO SCH (07:51)
[2020-10-16] MEDS: oxyCODONE/ACETAMINOPHEN 10-325 TAB PO PRN ×2 (07:55→17:28)
--- NOTE | 2020-10-16 08:31 | Discharge Summary ---
Date of Service October 16, 2020 Admission HPI Per Admitting Provider 60 y/o M Hx HLD, depression, anemia, paraplegia - requires self catheterization and frequently develops UTIs. The pt was assessed for a UTI in the ER the prior day. Cultures were obtained and he was discharged with antibiotics. He was called back to the ER when the cultures returned + for resistant pseudomonas. He is admitted for IV antibiotics. The pt states he is asymptomatic and has not had fevers or rigors. Labs are notable for an elevated lactic, leukocytosis and mild hypokalemia. PMH: 1) HTN - variable and not currently treated 2) HLD 3) Depression 4) Paraplegia - T7 5) TIA 6) Recurrent UTIs 7) Requires self-catheterization 8) Asplenia 9) GERD - Beck's 10) Renal calculi 12) Chronic back pain 13) Chronic constipation 14) Anemia Surgical: 1) Thoracic spine 2) Cholecystectomy 3) Splenectomy Social: Does not drink or smoke Family: HTN, HLD Admission Exam Per Admitting Provider General: Pleasant, middle-aged M, AAO x 3, no distress ENT: No erythema or exudates, no thrush Eyes: BLESSING, EOMI Head and neck: Normocephalic, atraumatic, No JVD, neck is supple. Chest/heart: Nontender, S1,2, RRR, no murmurs, no gallops Lungs: CTAB, no wheezing or crackles Abdomen: Nontender, nondistended, BS+ Neuro: AAO x 3, speech is clear - LE flaccid paralysis Musculoskeletal: No joint inflammation, muscle tenderness, FROM Skin: Multiple stage I or II ulcers shins/back - skin on back is excoriated and dry form scratching Extremities: Muscle wasting LEs Principal Diagnosis MDR Pseudomonas UTI, secondary to chronic indwelling catheter Discharge Exam General: WD, WN, chronically ill appearing but resting comfortably in his hospital bed. NAD Neck: No JVD. Negative hepatojugular reflex. mmm Cardiac: RRR without M/G/R Lungs: CTA without W/R/R, on room air 95% GI: Normoactive X4. Soft and nontender in all quadrants. Extremities/skin: No peripheral clubbing cyanosis or edema. b/l b/l muscle wasting, b/l heel pressure ulcers with Toro pads-- good granulation tissue present. erythema to b/l buttocks with stoma powder Neuro: A&O X4 cranial nerves II through XII are grossly intact no focal neuro deficits, chronic paraplegia : garrison draining light clear yellow urine Discharge Data Allergies Allergy/AdvReac Type Severity Reaction Status Date / Time caffeine AdvReac Intermediate Gastrointestinal Verified 09/24/20 15:27 Upset ibuprofen AdvReac Intermediate GI Bleed Verified 09/24/20 15:27 Consultations 09/24/20 15:43 ED Decision to Admit Stat 09/25/20 13:04 Consult Urology Routine 09/28/20 13:56 Consult Infectious Diseases Routine Procedures Performed Operation Date: 09/26/20 12:20 Actual Procedures p Cystoscopy, Bilateral Ureteral Stent Exchange(Bilateral) - Edison Mcintosh, DO Ordered Studies 09/26/20 FL retrograde includes kub Routine Hospital Course (1) UTI (urinary tract infection): Recurrent UTIs in the setting of neurogenic bladder and obstructive uropathy. Seen in ER and called to return based on MDR Pseudomonas Catheter-associated /complicated UTI as patient has chronic indwelling Garrison catheter due to neurogenic bladder. * Takes methenamine hippurate as an outpatient for prophylaxis. * Seen in ER 09/24 for constipation and UTI symptoms --> sent home and called for IV Meropenem based on Urine Cx/s with MDR pseudomonas * Patient is s/p ureteral stent exchange with Dr. Mcintosh 09/26/20 -- per hx, patient with b/l hydroureteronephrosis 2nd to fecal impaction * (of note patient with LARGE LARGE BM about 1.5 wks ago and regular BMs since that time). * ID consulted on 09/30, Dr Caban * --> Recommend Cefiderocol + tobramycin. ID recommending 2 weeks of IV antibiotic therapy * Unfortunately the initially Urine C&S showed sensitivity to the tobramycin but this can not be used as monotherapy as it is only for synergy effect * Per in house lab/and outsourced lab, sensitivities can not yet be ran of Cefiderocol. * ID recommending stopping tobramycin and using single agent Cefiderocol (stopped tobramycin on 10/06/20) Initially placed on 14 days Cefiderocol, however WBC elevated and discussed with ID and recs to continue Cefiderocol for 7 days which moved end of treatment to 10/16. ALso placed on Diflucan at that time 10/10 for course of Diflucan for 14 days but did note that until stents exchanged/stone removed patient would likely return with the same issue . With combination of Diflucan/Cefiderocol, patient WBC remained wnl for several days, afebrile No symptoms of AIN or respiratory compromise and remained stable on room air Initially arranged for rehab at discharge, however patient decided he wanted to go home instead. Arranged for outpatient therapy. Rx provided Repeat labs this week to ensure stable and to monitor liver function testing while on diflucan To follow up with Urology for stent exchange in the next 1-2 months, but will need done sooner if patient develops fever/condition worsens. (2) Constipation: *contributory to hydro per Urology in history --> large BM last week and continues to move bowels Loose stools have since resolved with de-escalation of bowel regimen. and he remained on Linzess, miralax/fleets as needed Discussed if no BM 2-3 days, should administer enema to keep regular *If needed, soap suds with GREAT success (3) Hypertension: No medications on board [employer]OW [employer] Blood pressure had been running elevated was placed on lisinopril 10mg daily, which seemed to be too much and BPs lower normal and this was decreased to 5mg daily and sent rx at dischage Repeat labs within the week as above (4) Hyperlipidemia: Continued atorvastatin (5) Depression: Continued fluoxetine (6) Anemia: stable Episode gross hematuria -- resolved with holding ASA and stopping lovenox and remained stable on repeat once resumed (7) GERD (gastroesophageal reflux disease): On omeprazole at home --> resumed at discharge Pantoprazole 40mg PO BID while inpatient. (8) Paraplegia following spinal cord injury: Working with CM -- thought agreeable to [facility] but continued inpatient stay and he felt strength improved and wished to go home with outpt PT. Rx given Discharged with (9) DVT prophylaxis: Lovenox(held for hematuria but able to be resumed and no further bleeding). Discharged home with . Outpatient PT. To complete 7 more days of Diflucan. Follow up with PCP/Urology outpatient. If worsens/fevers/red flags, patient to return to ER and Urology may need to exchange sooner per ID recs Total Time Total Time Spent Total Time Spent (In Minutes): 95 Discharge Plan Discharge Items Patient Disposition: Home - Self-Care Reason For Visit: ADMIT Discharge Diagnosis: Pseudomonas UTI Goals: You have been hospitalized for an urgent problem which required surgery. During your stay at [facility], we have made an effort to correct the problem that brought you to the hospital while keeping you as comfortable as possible. Surgery and medications were used to bring your condition under control and your discharge instructions will include directions for any medications you should take after leaving the hospital. Please make sure to follow the advice of your surgeon regarding follow up with the surgeon and with your primary care provider. Activity: As commented below Activity Comment: advance with therapy Non-emergency contact: Primary Care Provider and Urologist Call non-emergency contact if: you have any medication questions, your symptoms worsen and your pain is concerning for you Follow-up/Referrals: Edison Mcintosh DO [Physician] - (1 month) Zenaida Flanagan PA-C [Primary Care Provider] - Diet: Regular Ambulatory Orders: Complete Blood Count no Diff (Timed) Timeframe: 1 Week Location: Determined by Patient Ordered By: Louisa Cantu Comprehensive Metabolic Panel (Routine) Timeframe: 1 Week Location: Determined by Patient Ordered By: Louisa Cantu Addtl Attending Provider Instructions: You have been hospitalized for a pseudomonas urinary tract infection, likely related to your chronic Garrison. This unfortunately was very drug resistant and infectious disease consultation was undertaken, with recommendations for stronger antibiotics (Cefiderocol) and this course of treatment was extended for your urinary tract infection until today. Repeat urine culture after had been negative. You were also treated with antifungal Diflucan as there was yeast in your urine and this was felt to not be treated adequately previously. With these treatments your white count remained stable and within normal range and you remained without a fever. You will be continued on this Diflucan for an additional 7 days (including today) as 200mg by mouth daily. You should have repeat liver function testing while on this medication as this can cause elevations. You should also have repeat blood counts and chemistries which you will be provided a lab slip for to get done in the next week and follow up with your primary care provider. Your blood pressure was elevated during admission and you have been started on lisinopril which was initially increased but then decreased to 5mg by mouth daily and your blood pressures have been better controlled. You should continue with cushions and powder to buttocks and brush off excess. Cover with sensicare cream to prevent further breakdown. Fo r your heels, clean with saline and cover. Continue to use waffle boots to your heels to help keep pressure off. Please ensure bowels are moving at least every 2-3 days and administer enema if not successful with treatments by mouth. Please follow up with Urology for stent exchange which will be planned in the upcoming 1-2 months. It you develop any fever, chills, darkened or decreased urine output, shortness of breath, chest pain, or any other symptoms that are concerning for you please return to the emergency department. For all non-severe concerns, contact your PCP. It has been a pleasure being a part of the medical team providing for you while you have been in the hospital. Take care! Pending Studies at Discharge: No Stand-Alone Forms: My [facility], Opioid Pain Management Medications and DC Order Prescriptions: New fluconazole 100 mg Tablet 200 mg PO QAM Qty: 6 RF: 0 polyethylene glycol 3350 [Miralax] 17 gram Powder In Packet 17 g PO DAILY PRN (Reason: constipation) Qty: 14 RF: 0 mineral oil [Fleet Mineral Oil] Enema 133 ml ME DAILY PRN (Reason: constipation) Qty: 5 RF: 0 Phospha 250 Neutral 250 mg Tablet 1 tab PO QID Qty: 14 RF: 0 lisinopril [Zestril] 5 mg Tablet 5 mg PO QAM Qty: 30 RF: 0 Dermacerin Cream 1 applic EXT Q8 Qty: 2568 RF: 0 Continued ascorbic acid (vitamin C) 500 mg capsule 500 mg PO BID RF: 0 zolpidem 10 mg tablet 10 mg PO HS PRN (Reason: Sleep) RF: 0 multivitamin Tablet 1 tab PO QDL RF: 0 atorvastatin 20 mg Tablet 20 mg PO HS RF: 0 omeprazole 40 mg Capsule,Delayed Release(Dr/Ec) 40 mg PO BID RF: 0 oxycodone-acetaminophen 10-325 mg Tablet 1 tab PO Q6H PRN (Reason: Pain) RF: 0 ferrous sulfate [iron] 325 mg (65 mg iron) Tablet 325 mg PO QDL RF: 0 Linzess 145 mcg Capsule 145 mcg PO QDL RF: 0 fluoxetine 60 mg tablet 60 mg PO QDL RF: 0 sennosides [Senokot] 8.6 mg Tablet 25.8 mg PO UD RF: 0 aspirin 81 mg Tablet,Delayed Release (Dr/Ec) 81 mg PO QDL RF: 0 amitriptyline 50 mg Tablet 50 mg PO HS RF: 0 methenamine hippurate 1 gram tablet 1 g PO Q12H Qty: 60 RF: 6 Discontinued cefdinir 300 mg capsule 300 mg PO BID 10 Days Qty: 20 RF: 0 Discharge Orders: Discharge Order (Routine); Ordered 10/16/20 Ordered By: Louisa Cantu Admission Data Admit Date/Time: 09/24/20 19:24 Attending Provider: Shauna Fox Admit Provider: Nilo Dueñas Primary Care Provider: Zenaida Flanagan Other Providers: Edison Mcintosh ; [facility] ; [place] ; Toi Mchugh ; Benigno Gee I. ; Tyrel Caban II ; Delfina Victor ; Ulysses Franks ; Jennifer Wong Sumrall ; [place] Other Interventions: Discharge Summary Assessment (RN) Last Done: 10/16/20 11:11 Supervising Physician Co-Signing Physician Notes PA Supervision Note: I personally saw and examined the patient. I verified all pleitez points and agree with BEV Cantu with the following exceptions and/or additions: S-patient feeling very well and ready to go home, has no complaints at all. Remains afebrile. O- Vitals reviewed Gen: AAOx3, NAD HEENT: Anicteric sclerae, EOMI CV: RRR no mgr nl S1S2 Pulm: CTAB no wcr Abd: +BS soft NT ND no masses or hernias Ext: Atrophied muscles Skin: No rashes, warm/dry Neuro: Weakness in bilateral lower extremities A/V-54-aesh-old male with a history of paraplegia and chronic indwelling Garrison catheter as well as bilateral ureteral stents, here with multidrug-resistant Pseudomonas as well as Cinda Garrison catheter associated UTI. He has completed 2-1/2 weeks of IV antibiotics and will finish out a course of Diflucan Constipation was a large issue in this is now much improved as well Stable for discharge home Coding Level of Care Code D/C DAY MANAGEMENT >30 MINS Diagnoses UTI (urinary tract infection) N39.0 Constipation K59.00 Hypertension I10 Hyperlipidemia E78.5 Depression F32.9 Anemia D64.9 GERD (gastroesophageal reflux disease) K21.9 Esophagitis presence: without esophagitis Paraplegia following spinal cord injury G82.20 DVT prophylaxis Z29.9
[2020-10-16] MEDS: MULTIVITAMIN TAB PO SCH (10:33)
[2020-10-16] MEDS: LINACLOTIDE 145 MCG CAPSULE PO SCH (10:33)
[2020-10-16] MEDS: FLUoxetine HCL 20 MG CAP PO SCH (10:33)
[2020-10-16] MEDS: FERROUS SULFATE 325 MG TAB PO SCH (10:33)
== END 2020-10-16 18:24 | disposition home or self-care (01) | DRG 660 ==
LOC: ED 14:01 → SUATTDRO 19:24 → 3N 19:24 → 3W 09-28 18:59

== ENCOUNTER 2021-01-21 14:48 | Inpatient (IN) ==
[2021-01-21] MEDS ORDERED: CEFEPIME 2,000 MG/20 ML VIAL IV STA (15:40)
[2021-01-21] MEDS ORDERED: PIPERACILLIN/TAZOBACTAM 4.5 GM/120 ML BAG IV STA (15:44)
[2021-01-21] MEDS ORDERED: SODIUM CHLORIDE 0.9% 1000ML 1,000 ML IV SCH ×3 (15:45→16:45)
[2021-01-21 16:14] LABS: Hematocrit (blood only) 32.9 % (42-52); Mean Corpuscular Hemoglobin 27.6 pg (25-34); Mean Corpuscular Hgb Conc 33.4 g/dL (32-36); Mean Corpuscular Volume 82.5 fL (80-100); Mean Platelet Volume 9.3 fL (7.4-10.4); Nucleated RBC # (auto) 0.05 K/uL (0-0); Nucleated RBC % (auto) 0.4 %; Platelet Count 461 K/uL (130-400); RDW Coefficient of Variation 19.1 % (11.5-14.5); RDW Standard Deviation 57.5 fL (36.4-46.3); Red Blood Count 3.99 M/uL (4.7-6.1); White Blood Count 11.53 K/uL (4.8-10.8)
--- NOTE | 2021-01-21 16:15 | XRay Report ---
XR chest 1V portable CLINICAL HISTORY: SEPSIS TECHNIQUE: Single frontal radiograph of the chest was obtained. Comparison: None available at the time of this dictation. FINDINGS: Stable orthopedic hardware. The cardiomediastinal silhouette is normal. Faint bibasilar airspace opac ities are seen. No evidence of pleural effusion or pneumothorax. IMPRESSION: Faint right lower lung airspace opacities which may represent atelectasis, pneumonia, and/or aspirati on. ACT 112: Negative or not required by law. Electronically signed by: Colt Johnson M.D. 01/21/2021 4:14 PM
[2021-01-21 16:24] LABS: INR 1.4 (0.9-1.1); Partial Thromboplastin Ratio 1.5; Partial Thromboplastin Time 39.5 Seconds (21.0-31.0); Prothrombin Time 13.5 Seconds (9.0-12.0)
[2021-01-21 16:30] LABS: Alanine Aminotransferase 31 U/L (12-78); Albumin Level 1.3 gm/dl (3.4-5.0); Aspartate Aminotransferase 45 U/L (15-37); BUN Creatinine Ratio 19.3 (10-20); Blood Urea Nitrogen 76 mg/dl (7-18); Calcium 8.3 mg/dl (8.5-10.1); Carbon Dioxide 18 mmol/L (21-32); Chloride 102 mmol/L (98-107); Est GFR (African American) 18.2 ml/min; Est GFR (Non-African American) 15.7 ml/min; Glucose 79 mg/dl (70-99); Magnesium 2.2 mg/dl (1.8-2.4); Potassium 4.3 mmol/L (3.5-5.1); Sodium 137 mmol/L (136-145)
[2021-01-21 16:35] LABS: Albumin Globulin Ratio 0.3 (0.9-2); Alkaline Phosphatase 221 U/L (45-117); Bilirubin,Total 0.3 mg/dl (0.2-1); Globulin 5.2 gm/dl (2.5-4.0); Total Protein 6.5 gm/dl (6.4-8.2); Troponin I < 0.015 ng/ml (0-0.045)
[2021-01-21 16:42] LABS: Basophils # (auto) 0.01 K/uL (0-0.2); Basophils % (auto) 0.1 %; Echinocytes 1+; Immature Granulocytes # (auto) 0.14 K/uL (0.00-0.02); Immature Granulocytes % (auto) 1.2 %; Lymphocytes # (auto) 0.54 K/uL (1.2-3.4); Lymphocytes % (auto) 4.7 %; Monocytes # (auto) 0.36 K/uL (0.11-0.59); Monocytes % (auto) 3.1 %; Neutrophils # (auto) 10.48 K/uL (1.4-6.5); Neutrophils % (auto) 90.9 %; Target Cells 1+
[2021-01-21] MEDS ORDERED: DEXTROSE 5% IV STA (16:59)
[2021-01-21] MEDS ORDERED: CEFIDEROCOL SULFATE TOSYLATE IV STA (16:59)
[2021-01-21] MEDS ORDERED: VANCOMYCIN HCL 1,500 MG in SODIUM CHLORIDE 0.9% 500 ML IV ONE (17:15)
--- NOTE | 2021-01-21 18:09 | CT Scan Report ---
CT abd pelvis wo con CLINICAL HISTORY: sepsis, hematuria TECHNIQUE: Helical axial images of the abdomen and pelvis were obtained. Automated dose lowering tech niques and/or adjustment according to patient size were utilized for this exam. This exam was perfor med without intravenous contrast. COMPARISON: Comparison is made to CT abdomen and pelvis 09/22/2020 FINDINGS: Lower chest: Scattered groundglass and consolidative opacities are seen in the visualized chest. Liver: Unremarkable. No focal lesions are seen. Gallbladder and biliary tree: Patient is status post cholecystectomy. No intra- or extrahepatic bilia ry ductal dilation. Pancreas: Fatty replacement of the pancreas is seen. Spleen: The spleen is diminutive. A few small splenules are seen. Adrenals: Unremarkable. Kidneys and ureters: Bilateral hydronephrosis and hydroureter seen. Bilateral nephroureteral stents a re seen. Bladder: A Camp is in place within the bladder which is still well distended. Reproductive organs: Prostatomegaly is seen. Bowel: There is significant wall thickening around a stool ball in the sigmoid colon. Gaseous distent ion of the sigmoid colon is seen. Significant stool burden is seen in the descending colon. Lymph nodes Retroperitoneal: Subcentimeter lymph nodes are noted. Mesenteric: Unremarkable. Pelvic: Unremarkable. Peritoneum: Normal Vessels: Unremarkable. Abdominal wall: Unremarkable. Bones: Unremarkable. IMPRESSION: 1. Pronounced wall thickening in the rectum with a large stool ball compatible with stercoral coliti s. 2. Moderate bilateral hydronephrosis with nephroureteral stents in place. 3. Additional findings as above. ACT 112: Negative or not required by law. Electronically signed by: Colt Johnson M.D. 01/21/2021 6:08 PM
[2021-01-21] MEDS ORDERED: TOBRAMYCIN SULFATE IV ONE (19:00)
[2021-01-21] MEDS ORDERED: DEXTROSE 5% IV ONE (19:00)
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
[2021-01-21] MEDS ORDERED: POLYETHYLENE (MIRALAX) 17 GM PACK PO PRN (20:30)
[2021-01-21] MEDS ORDERED: ALUMINUM/MAGNESIUM SUSP 30 ML UDC PO PRN (20:30)
[2021-01-21] MEDS ORDERED: ONDANSETRON INJ 2 MG/ML 2 ML VIAL IV PRN ×2 (20:30→20:31)
[2021-01-21] MEDS ORDERED: MINERAL OIL ENEMA 133 ML BTL PR PRN (20:30)
[2021-01-21] MEDS ORDERED: ATROPINE SULFATE 0.1 MG/ML 10ML SYR IV PRN (20:31)
[2021-01-21] MEDS ORDERED: ePHEDrine sulfate 50 MG/ML AMP IV PRN (20:31)
[2021-01-21] MEDS ORDERED: fentaNYL citrate 100 MCG/2 ML VIAL IV PRN (20:31)
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
[2021-01-21] MEDS ORDERED: fentaNYL citrate 100 MCG/2 ML VIAL ONE (20:38)
[2021-01-21] MEDS ORDERED: MIDAZOLAM HCL 1 MG/ML 2ML VIAL ONE (20:38)
[2021-01-21] MEDS ORDERED: TOBRAMYCIN CONSULT ACTIVE PRN (20:54)
[2021-01-21] MEDS ORDERED: PROPOFOL IV EMULSION 10 MG/ML 20 ML VIAL IV ONE (20:56)
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
[2021-01-21] MEDS ORDERED: DIATRIZOATE MEGLUMINE 30% 100ML VIAL INSTIL ONE (21:10)
--- NOTE | 2021-01-21 21:10 | Pharmacy Report ---
Pharmacy Abx Initial Consult - Date of Service January 21, 2021 - Pharmacy Dosing Scope Date of Consult: 01/21/21 Consultation requested by: Dr. Hurtado Pharmacy is consulted to initiate Tobramycin IV dosing therapy, order appropriate labs and adjust drug dose/frequency. - Subjective The patient is a 60 year old M admitted on 01/21/21 20:16. - Objective Height: 6 ft Weight: 71.6 kg Vital Signs (Past 12hrs): Vital Signs Temp Pulse Pulse Resp BP BP Pulse Ox 01/21/21 18:46 102 H 20 165/96 H 97 01/21/21 16:55 102 H 24 156/92 H 95 01/21/21 16:51 102 H 101 H 22 148/81 H 96 01/21/21 15:40 106 H 20 120/78 96 01/21/21 14:53 36.4 C L 81 16 84/63 L 98 Lab Results (24hrs): Laboratory Tests (24 Hours) 01/21/21 01/21/21 01/21/21 16:00 16:00 16:00 WBC 11.53 H Neut # (Auto) 10.48 H Creatinine 3.92 H Est Cr Clr Drug Dosing Not Reportable Procalcitonin 114.37 H Micro Results: 01/21/21 18:50 Aerobic Blood Culture - Pending Blood Anaerobic Blood Culture - Pending 01/21/21 16:00 Aerobic Blood Culture - Pending Blood Anaerobic Blood Culture - Pending - Risk Factors for Resistance * 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 Previous grown MDR P. aeruginosa that required Fetroja and Tobramycin treatment. * Afebrile. Leukocytosis of 11.5k. RIGOBERTO w/ SCr of 3.92, CrCl 20.5 mL/min. Procalcitonin of 114. Blood cultures pending. * Primary team spoke with Infectious Disease who okayed use of Cefiderocol. Will use Tobramycin as well. Plan Tobramycin and Cefiderocol for treatment of complicated UTI Tobramycin * Patient is not a candidate for extended-interval dosing due to CrCl less than 20 mL/min and fluctuating kidney function * Started Tobramycin 2 mg/kg based on actual body weight (140 mg) IV x 1. Initial dosing interval is every 24 hours. However, will not order further tobramycin doses in case renal fxn improves tomorrow. * Goal Peak: 8-10 mcg/mL * Goal Trough: less than 1-2 mcg/mL * Will order a trough level at 1830 on 01/22/21 which would be 30 minutes prior to when the next dose is due. Cefiderocol * 2000 mg IV x 1 (Target dose is 2000 mg IV every 8 hours) * Reduced to 1000 mg IV every 8 hours for CrCl 15-29 mL/min Pharmacy will continue to follow and will adjust dose/frequency as necessary. Thank you.
--- NOTE | 2021-01-21 21:34 | Operative Report ---
[facility] Post Operative Report Pre & Post Diagnosis Operation Date: 01/21/21 19:45 Pre-Op Diagnosis: Sepsis, malpositioned left ureteral stent Post-Op Diagnosis: Sepsis, malpositioned left ureteral stent I identified the patient and participated in the time-out.: Yes Procedure Operation Date: 01/21/21 19:45 Actual Procedures p Cystoscopy; Bilateral Stent Exchange - Rigoberto Mirza MD Surgeon Matrin Mirza MD Habilitation Assistant none Estimated Blood Loss 0 Findings Consistent with Post-Op Diagnosis Specimens none Description of Procedure Of note, the patient has contracture of his lower extremities and he was positioned in dorsal lithotomy position but his contraction made advancement of the scope somewhat difficult. I did advance a 22 Mal[place]ian cystoscope through the urethra and ultimately into the bladder. Inspection was somewhat limited because of this angulation but successfully achieved. Of note, he also seems to have a massive stool burden on CT and I suspect this is contributing to some of the challenge of entering his bladder. As I inspected I was able to identify bilateral ureteral stents, the loops of which seem to cross the midline. I was able to grasp the distal aspect of the left ureteral stent and withdrawn to the meatus. The stent was entirely encrusted and the lumen was not able to be accessed with a wire. I reentered the bladder alongside the stent and guided a wire into the distal left ureter adjacent to the stent. After removing the stent I was able to advance this wire to the kidney. I put a 5 [place]ian open-ended catheter into the proximal ureter and opacified. This showed significant tortuosity of the proximal ureter including a full twist. I was able to successfully navigate a wire around this area and into the upper pole of the kidney. I then placed a 6 Malawian by 26 cm double-J stent with a good curl seen at the UPJ and another in the bladder. I then turned my attention to the right ureteral stent. The distal aspect was grasped and withdrawn. Again the stent was encrusted and lumen obliterated. I was able to reenter the bladder and begin to guide a wire into the distal right ureter. I was not able to advance this wire all the way to the kidney until I had removed the stent. Even then there was significant tortuosity in the midportion of the ureter just above the pelvic brim and I struggled to advance a wire. I opacified the collecting system to demonstrate the curvature and tortuosity but I was unable to get the sensor wire around these curves. I did successfully navigate a Glidewire into the kidney and then exchanged it after advancing the 5 [place]awian open-ended catheter into the renal pelvis. I then replaced the sensor wire and ultimately a 6 [place]ian by 26 cm double-J stent. This stent protrudes all the way into the lower pole of the kidney and had a good curl in the bladder as well. I decided to leave it in this position to guarantee drainage. I replaced an 18 Malawian catheter and concluded the case. He was reversed of anesthesia and taken to the recovery room in stable condition. There were no complications. I attest to the content of the Intraoperative Record and any orders documented therein. Any exceptions are noted below.
--- NOTE | 2021-01-21 21:39 | Fluoroscopy Report ---
FL retrograde includes kub CLINICAL HISTORY: B/L STENT EXCHANGE TECHNIQUE: 6 views were obtained with the C-arm in the OR with the above procedure. Total fluoroscopy time was 109.1 seconds. Total skin dose was 17.26 mGy. Comparison: Comparison is made to CT abdomen pelvis 01/21/2021 FINDINGS/IMPRESSION: Multiple intraoperative images were obtained of bilateral retrograde ureterogram and stent exchange. Please correlate with intraoperative fluoroscopy and operative report. ACT 112: Negative or not required by law. Electronically signed by: Colt Johnson M.D. 01/21/2021 9:38 PM
--- NOTE | 2021-01-21 21:53 | Anesthesiology Progress Note ---
Date of Service January 21, 2021 Anesthesia Post Procedure Vital Signs Vital Signs: Temp Pulse Pulse Resp BP BP Pulse Ox 01/21/21 18:46 102 H 20 165/96 H 97 01/21/21 16:55 102 H 24 156/92 H 95 01/21/21 16:51 102 H 101 H 22 148/81 H 96 01/21/21 15:40 106 H 20 120/78 96 01/21/21 14:53 36.4 C L 81 16 84/63 L 98 Transfer of Care Handoff Completed per policy Notes Mental Status: alert / awake / arousable Patient Amnestic to Procedure: Yes Nausea / Vomiting: adequately controlled Pain: adequately controlled Airway Patency, RR, SpO2: stable & adequate BP & HR: stable & adequate Hydration State: stable & adequate Anesthetic Complications: no major complications apparent Notes: patient with significant hypoxia prior to anesthesia and procedure. he will return to ED until bed is available. Continuous pulse oximetry will be needed overnight.
[2021-01-21] MEDS ORDERED: CEFIDEROCOL IV SCH (22:00)
[2021-01-21] MEDS: SODIUM CHLORIDE 0.9% 1000ML 1,000 ML IV SCH (22:58)
[2021-01-21 23:10] LABS: Bacteria Urine Automated Negative (Negative); Bilirubin Urine Negative (Negative); Blood Urine 3+ (Negative); Epithelial Cell Urine Auto >30 /lpf (0-5); Glucose Urine UA Negative (Negative); Ketones Urine Negative (Negative); Leukocyte Esterase Urine 3+ (Negative); Nitrite Urine Positive (Negative); Specific Gravity Urine 1.012 (1.000-1.030); Urobilinogen Urine Negative (Negative); WBC Urine Automated >30 /hpf (0-5); pH Urine 7.5 (4.5-7.5)
[2021-01-21 23:20] LABS: Protein Urine 2+ (Negative)
[2021-01-21 23:21] LABS: Color Urine Red
[2021-01-21 23:22] LABS: Appearance Urine Turbid (Clear)
[2021-01-21 23:46] LABS: RBC Urine Automated >30 /hpf (0-4)
[2021-01-21 23:47] LABS: Cast Urine Automated 0 /lpf (0-5)
[2021-01-22] MEDS: AMITRIPTYLINE HCL 50 MG TAB PO SCH ×2 (01:21→20:29)
[2021-01-22] MEDS: SENNA 8.6 MG TAB PO SCH ×3 (01:21→20:29)
[2021-01-22] MEDS: ATORVASTATIN 20 MG TAB PO SCH ×2 (01:21→20:29)
[2021-01-22] MEDS: PANTOprazole 40 MG TAB PO SCH ×3 (01:21→20:29)
[2021-01-22] MEDS: SODIUM CHLORIDE 0.9% 1000ML 1,000 ML IV SCH ×2 (02:20→19:21)
[2021-01-22] MEDS: DEXTROSE 5% IV SCH ×4 (02:20→22:50)
[2021-01-22] MEDS: CEFIDEROCOL SULFATE TOSYLATE IV SCH ×3 (02:20→22:50)
[2021-01-22] MEDS: HYDROmorphone INJ 0.5 MG/0.5 ML SYR IV PRN (05:22)
[2021-01-22 06:19] LABS: Creatinine Clr Calc Pharmacy 32.1 ml/min; Est GFR (African American) 29.5 ml/min; Est GFR (Non-African American) 25.5 ml/min
[2021-01-22] MEDS ORDERED: FLUARIX QUADRIVALENT 0.5 ML SYR IM ONE (08:00)
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
[2021-01-22 09:01] LABS: Hematocrit (blood only) 30.4 % (42-52); Hemoglobin 10.4 g/dL (14.0-18.0); Mean Corpuscular Hemoglobin 27.8 pg (25-34); Mean Corpuscular Hgb Conc 34.2 g/dL (32-36); Mean Corpuscular Volume 81.3 fL (80-100); Mean Platelet Volume 9.4 fL (7.4-10.4); Platelet Count 425 K/uL (130-400); RDW Standard Deviation 56.6 fL (36.4-46.3); Red Blood Count 3.74 M/uL (4.7-6.1); White Blood Count 16.12 K/uL (4.8-10.8)
--- NOTE | 2021-01-22 09:09 | Urology Progress Note ---
Date of Service January 22, 2021 Assessment & Plan (1) Acute kidney injury: (2) Sepsis: Plan: s/p cysto and b/l stent exchange last night - improving today, but still with pulmonary struggles, and Cr still not at BL - cont supportive care Admission and Anticipated Discharge Date Admission Date: January 21, 2021 Subjective stable throughout the night after his stent exchange reports that he subjectively feels much better still highly O2 dependent overnight - 90% on 4 L - but now on RA Cr slightly improved - now 2.6 ok UoP Physical Exam Physical Exam: slightly uncomfortable appearing abd soft blood tinged urine - garrison - most of the tubing is clear Results & Data ([facility]) Vital Signs (Past 12 Hours) Vital Signs Temp Pulse Pulse Resp BP BP Pulse Ox 01/22/21 08:06 114 H 22 90 01/22/21 05:00 109 H 20 95 01/22/21 04:30 108 H 18 98 01/22/21 04:00 113 H 20 123/80 92 01/22/21 03:30 111 H 20 108/71 92 01/22/21 03:00 113 H 22 125/75 93 01/22/21 02:30 113 H 20 117/74 95 01/22/21 02:00 115 H 20 116/75 93 01/22/21 01:30 114 H 29 H 121/73 94 01/22/21 01:00 112 H 22 96 01/22/21 00:30 113 H 29 H 109/77 96 01/22/21 00:00 113 H 22 124/79 97 01/21/21 23:48 36.7 C 115 H 22 97/75 L 96 01/21/21 23:30 112 H 33 H 97/75 L 95 01/21/21 23:00 111 H 31 H 110/73 94 01/21/21 22:34 97 01/21/21 22:15 107 H 25 H 111/78 94 01/21/21 22:05 36 C L 103 H 27 H 101/74 95 01/21/21 21:55 105 H 22 121/78 97 01/21/21 21:45 107 H 24 131/83 98 01/21/21 21:35 36.6 C 115 H 22 158/103 H 95 PG Care Time/CCT Total # of Minutes Spent Total Time Spent with Patient: Total time spent is greater than 50% in coordination of care (as documented) at patient's floor/unit and/or counseling patient: Coding Level of Care Code 10939 Subseq Hosp Care Lvl 2 Diagnoses Acute kidney injury N17.9 Sepsis A41.9
[2021-01-22 09:25] LABS: Albumin Globulin Ratio 0.2 (0.9-2); Albumin Level 1.2 gm/dl (3.4-5.0); BUN Creatinine Ratio 22.3 (10-20); Bilirubin,Total 0.5 mg/dl (0.2-1); Creatinine Clr Calc Pharmacy 33.3 ml/min; Est GFR (African American) 30.8 ml/min; Est GFR (Non-African American) 26.6 ml/min; Globulin 4.9 gm/dl (2.5-4.0); Potassium 3.2 mmol/L (3.5-5.1); Total Protein 6.1 gm/dl (6.4-8.2)
[2021-01-22 09:27] LABS: Anisocytosis Present; Basophils # (auto) 0.02 K/uL (0-0.2); Basophils % (auto) 0.1 %; Eosinophils # (auto) 0.01 K/uL (0-0.5); Eosinophils % (auto) 0.1 %; Immature Granulocytes # (auto) 0.13 K/uL (0.00-0.02); Immature Granulocytes % (auto) 0.8 %; Lymphocytes # (auto) 0.76 K/uL (1.2-3.4); Lymphocytes % (auto) 4.7 %; Monocytes # (auto) 0.39 K/uL (0.11-0.59); Monocytes % (auto) 2.4 %; Neutrophils # (auto) 14.81 K/uL (1.4-6.5); Neutrophils % (auto) 91.9 %; Spherocytes 1+; Target Cells 1+
--- NOTE | 2021-01-22 09:50 | XRay Report ---
XR chest 1V portable HISTORY: 60 years-old Male f/u sob acute shortness of breath COMPARISON: Chest radiograph and CT abdomen and pelvis 01/21/2021 TECHNIQUE: Portable AP view of the chest FINDINGS: The cardiomediastinal and hilar silhouettes are within normal limits. No pneumothorax, pleural effusi on or overt pulmonary edema. Progressively worsened ill-defined interstitial opacities throughout the right lung. Degenerative changes of the shoulders and spine fusion hardware of the upper to mid thor acic spine with partially imaged ORIF changes of the right humerus. Vascular coils of the epigastric abdomen. IMPRESSION: Progressively worsened right lung predominant opacities are compatible with an infectious or inflammatory pneumonitis. ACT 112: Negative or not required by law. The above report was generated using voice recognition software. It may contain grammatical, syntax o r spelling errors. Electronically signed by: Prateek Garcia M.D. 01/22/2021 9:49 AM
[2021-01-22] MEDS ORDERED: ALBUT/IPRATROP 3MG/0.5MG NEB 3 ML VIAL NEB PRN (09:57)
--- NOTE | 2021-01-22 10:13 | Electrocardiogram Report ---
Test Reason : Blood Pressure : / mmHG Vent. Rate : 104 BPM Atrial Rate : 104 BPM P-R Int : 138 ms QRS Dur : 106 ms QT Int : 364 ms P-R-T Axes : 063 -23 072 degrees QTc Int : 478 ms Sinus tachycardia Possible Left atrial enlargement Incomplete right bundle branch block Possible Lateral infarct , age undetermined Inferior infarct (cited on or before 21-JAN-2021) Abnormal ECG When compared with ECG of 24-SEP-2020 14:47, No significant change was found Confirmed by Hilario Marvin ([id number]) on 01/22/2021 10:12:34 AM Referred By: REFERRED SELF Confirmed By:Hilario Marvin
[2021-01-22] MEDS: MINERAL OIL ENEMA 133 ML BTL PR SCH (10:29)
[2021-01-22] MEDS ORDERED: POTASSIUM CHLORIDE CRTAB 20 MEQ TABCR PO STA (10:52)
[2021-01-22] MEDS: MULTIVITAMIN TAB PO SCH (12:23)
[2021-01-22] MEDS: FLUoxetine HCL 20 MG CAP PO SCH (12:23)
[2021-01-22] MEDS: LINACLOTIDE 145 MCG CAPSULE PO SCH (12:23)
[2021-01-22] MEDS: NORMOSOL-R 1,000 ML IV SCH ×2 (14:18→22:50)
[2021-01-22] MEDS ORDERED: POTASSIUM CHLORIDE 10 MEQ TABCR PO ONE (14:26)
[2021-01-22] MEDS: oxyCODONE/ACETAMINOPHEN 10-325 TAB PO PRN ×2 (14:30→20:34)
[2021-01-22] MEDS ORDERED: [UNRECOGNIZED DRUG - OTHER] ONE (18:30)
[2021-01-22] MEDS: HEPARIN SOD 5,000 UNIT/0.5 ML VIAL SQ SCH (20:29)
[2021-01-22] MEDS: TOBRAMYCIN SULFATE IV SCH (20:30)
--- NOTE | 2021-01-22 20:41 | Pharmacy Report ---
Pharmacy Abx Dose Short Note - Date of Service January 22, 2021 - Assessment & Plan Assessment 60 year old M receiving Tobramycin and Cefiderocol for treatment of complicated UTI * Day #2 of antimicrobial therapy. * Afebrile. White count worsened. Renal fxn improved. * Blood cultures growing GNB. Repeats taken today. * ID consult pending. Plan Tobramycin * Patient is not a candidate for extended-interval dosing due to fluctuating kidney function. * Dose: 140 mg (2 mg/kg actual BW) IV every 24 hours * Goal trough level for UTI complicated: less than 1-2 mcg/mL * Goal peak level for UTI complicated: 8-10 mcg/mL * No levels ordered at this time. Renal fxn will be assessed in AM and if levels are needed, they will be ordered. Cefiderocol * Increased to 1.5 g IV every 8 hour per renal fxn. Pharmacy will continue to follow and will adjust dose/frequency as necessary. Thank you.
[2021-01-23] MEDS: ACETAMINOPHEN 500 MG TAB PO PRN ×2 (05:00→20:48)
[2021-01-23] MEDS: CEFIDEROCOL SULFATE TOSYLATE IV SCH ×3 (06:15→23:17)
[2021-01-23] MEDS: DEXTROSE 5% IV SCH ×4 (06:15→23:17)
[2021-01-23] MEDS: NORMOSOL-R 1,000 ML IV SCH ×2 (07:16→15:54)
[2021-01-23 08:00] LABS: Creatinine Clr Calc Pharmacy 46.5 ml/min; Est GFR (African American) 45.8 ml/min; Est GFR (Non-African American) 39.5 ml/min
[2021-01-23] MEDS: oxyCODONE/ACETAMINOPHEN 10-325 TAB PO PRN ×3 (08:37→23:19)
[2021-01-23] MEDS: HEPARIN SOD 5,000 UNIT/0.5 ML VIAL SQ SCH ×2 (08:40→20:21)
--- NOTE | 2021-01-23 08:40 | Urology Progress Note ---
Date of Service January 23, 2021 Assessment & Plan (1) Sepsis: (2) Complicated UTI (urinary tract infection): (3) RIGOBERTO (acute kidney injury): Plan: 60 year-old male patient, with multiple comorbidities including chronic indwelling Camp catheter and bilateral ureteral stents, admitted with sepsis, complicated UTI, and RIGOBERTO. - POD#1 s/p Cystoscopy, bilateral ureteral stent exchange with Dr. Mirza. - Feeling better today, progressing as expected - Tolerating the ureteral stents with minimal bother - Non-toxic appearing -- TMAX 37.9 at 0450 today. - Labs reviewed - Creatinine improved to 1.83 (2.54 yesterday) - Urine culture pending; Blood cultures preliminary gram negative bacilli, repeat BCx pending - Continues on IV Tobramycin and Cefiderocol- ID consulted - Camp catheter intact, draining clear yellow urine - Continue supportive care, antibiotic therapy, and close monitoring, follow cultures - Maintain Camp catheter - Will continue to follow Admission and Anticipated Discharge Date Admission Date: January 21, 2021 Subjective Pt examined at bedside this AM. Awake, resting in bed on arrival. No acute distress. States he is feeling better today than yesterday Reports mild right flank pain No abdominal pain Camp intact, draining clear, yellow urine. Denies dysuria. Tolerating diet Denies nausea or vomiting Denies fevers or chills Review of Systems Constitutional: as per Subjective / HPI Gastrointestinal: as per Subjective / HPI Genitourinary: + as per Subjective / HPI Physical Exam Constitutional: cooperative; no acute distress Neck: normal visual inspection Respiratory: normal respiratory effort and able to speak in complete sentence s; no labored breathing and no audible wheezes Gastrointestinal (Abdomen): Inspection/Auscultation: abdomen normal to inspection; abdomen not distended Percussion/Palpation: abdomen soft; abdomen nontender and no guarding Musculoskeletal: Head/Neck/Chest: normocephalic Skin: No visible rashes or lesions to exposed skin areas Neurologic: moves all extremities and awake Psychiatric: Orientation: alert and oriented x 3 Genitourinary: Camp catheter intact, draining clear yellow urine Results & Data ([facility]) Vital Signs (Past 12 Hours) Vital Signs Temp Pulse Pulse Resp BP Pulse Ox 01/23/21 06:44 37.7 C H 98 H 17 136/82 93 11/22/21 04:50 37.9 C H 110 H 18 137/86 92 01/22/21 23:38 103 H 01/22/21 23:09 36.5 C 93 H 18 154/96 H 96 01/22/21 20:40 36.8 C 113 H 20 124/71 95 PG Care Time/CCT Total # of Minutes Spent Total Time Spent with Patient: Total time spent is greater than 50% in coordination of care (as documented) at patient's floor/unit and/or counseling patient: Coding Level of Care Code 31390 Subseq Hosp Care Lvl 2 Diagnoses RIGOBERTO (acute kidney injury) N17.9 Complicated UTI (urinary tract infection) N39.0 Sepsis A41.9
[2021-01-23] MEDS: PANTOprazole 40 MG TAB PO SCH ×2 (08:41→20:20)
[2021-01-23] MEDS: MINERAL OIL ENEMA 133 ML BTL PR SCH (10:05)
[2021-01-23] MEDS: LINACLOTIDE 145 MCG CAPSULE PO SCH (11:39)
[2021-01-23] MEDS: SENNA 8.6 MG TAB PO SCH ×2 (11:40→20:20)
[2021-01-23] MEDS: FLUoxetine HCL 20 MG CAP PO SCH (11:40)
[2021-01-23] MEDS: MULTIVITAMIN TAB PO SCH (11:40)
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
[2021-01-23] MEDS ORDERED: GENTAMICIN TROUGH 1 EA ONE (19:30)
[2021-01-23] MEDS ORDERED: [UNRECOGNIZED DRUG - OTHER] ONE (19:30)
[2021-01-23] MEDS: ATORVASTATIN 20 MG TAB PO SCH (20:20)
[2021-01-23] MEDS: AMITRIPTYLINE HCL 50 MG TAB PO SCH (20:20)
[2021-01-23] MEDS: TOBRAMYCIN SULFATE IV SCH (20:48)
[2021-01-23] MEDS ORDERED: GENTAMICIN PEAK 1 EA ONE (22:00)
[2021-01-23] MEDS ORDERED: [UNRECOGNIZED DRUG - REMARK] ONE (22:00)
[2021-01-24] MEDS: NORMOSOL-R 1,000 ML IV SCH ×4 (01:30→20:27)
[2021-01-24] MEDS: MELATONIN 3 MG TAB PO PRN ×2 (02:17→22:07)
[2021-01-24] MEDS: CEFIDEROCOL SULFATE TOSYLATE IV SCH ×4 (05:50→22:07)
[2021-01-24] MEDS: DEXTROSE 5% IV SCH ×4 (05:50→22:07)
[2021-01-24 06:21] LABS: Hematocrit (blood only) 25.9 % (42-52); Hemoglobin 8.7 g/dL (14.0-18.0); Mean Corpuscular Hemoglobin 27.8 pg (25-34); Mean Corpuscular Hgb Conc 33.6 g/dL (32-36); Mean Corpuscular Volume 82.7 fL (80-100); Mean Platelet Volume 9.5 fL (7.4-10.4); Nucleated RBC # (auto) 0.05 K/uL (0-0); Nucleated RBC % (auto) 0.2 %; Platelet Count 323 K/uL (130-400); RDW Coefficient of Variation 19.1 % (11.5-14.5); RDW Standard Deviation 57.2 fL (36.4-46.3); Red Blood Count 3.13 M/uL (4.7-6.1); White Blood Count 24.66 K/uL (4.8-10.8)
[2021-01-24 06:28] LABS: BUN Creatinine Ratio 19.6 (10-20); Blood Urea Nitrogen 27 mg/dl (7-18); Calcium 7.9 mg/dl (8.5-10.1); Carbon Dioxide 24 mmol/L (21-32); Chloride 106 mmol/L (98-107); Creatinine Clr Calc Pharmacy 59.8 ml/min; Est GFR (African American) 64.4 ml/min; Est GFR (Non-African American) 55.6 ml/min; Glucose 64 mg/dl (70-99); Sodium 137 mmol/L (136-145)
[2021-01-24] MEDS: HEPARIN SOD 5,000 UNIT/0.5 ML VIAL SQ SCH ×2 (09:46→19:56)
[2021-01-24] MEDS: HYDROmorphone INJ 0.5 MG/0.5 ML SYR IV PRN (10:43)
--- NOTE | 2021-01-24 10:51 | Urology Progress Note ---
Date of Service January 24, 2021 Assessment & Plan (1) Sepsis: (2) Complicated UTI (urinary tract infection): Plan: 60 year-old male patient, with multiple comorbidities including chronic indwelling Camp catheter and bilateral ureteral stents, admitted with sepsis, complicated UTI, and RIGOBERTO. - POD#2 s/p Cystoscopy, bilateral ureteral stent exchange with Dr. Mirza. - Feeling better today, minimal pain. - Afebrile at present - T-max 38.4 yesterday @ 1951. - Labs reviewed - Wbc up to 24.66, Hemoglobin 8.7, Creatinine 1.38. - UC&S preliminary with probable enterococcus; Blood cultures preliminary klebsiella and gram negative bacilli, repeat BCx pending - Continues on IV Tobramycin and Cefiderocol- ID consulted - Camp catheter intact, draining clear, yellow urine - Continue supportive care, antibiotic therapy, and close monitoring, follow cultures - Maintain Camp catheter - Will arrange outpatient follow-up with urology for continued care and stent management - Thank you for allowing us to participate in the acute care of Mr. Guardado. - Please reconsult us with additional questions, concerns or changes in patient status. Admission and Anticipated Discharge Date Admission Date: January 21, 2021 Subjective Pt examined at bedside this AM. Awake, resting in bed on arrival. No acute distress. Reports feeling better today. Denies fevers or chills. Denies abdominal and flank pain. Camp intact, draining clear, yellow urine. Denies dysuria. Denies nausea or vomiting. He did have an aspiration event with breakfast per chart review. Offers no additional complaints at time of exam. Review of Systems Constitutional: as per Subjective / HPI Gastrointestinal: as per Subjective / HPI Genitourinary: + as per Subjective / HPI Physical Exam Constitutional: cooperative; no acute distress Neck: normal visual inspection Respiratory: normal respiratory effort and able to speak in complete sentences; no labored breathing and no audible wheezes Gastrointestinal (Abdomen): Inspection/Auscultation: abdomen normal to inspection; abdomen not distended Percussion/Palpation: abdomen soft; abdomen nontender and no guarding Musculoskeletal: Head/Neck/Chest: normocephalic Skin: No visible rashes or lesions to exposed skin areas Neurologic: moves all extremities and awake Psychiatric: Orientation: alert and oriented x 3 Genitourinary: Camp catheter intact, draining clear yellow urine Results & Data ([facility]) Vital Signs (Past 12 Hours) Vital Signs Temp Pulse Pulse Resp BP Pulse Ox 01/24/21 08:06 36.7 C 94 H 18 125/77 94 01/24/21 02:17 37.3 C 81 18 130/77 96 01/23/21 23:59 81 PG Care Time/CCT Total # of Minutes Spent Total Time Spent with Patient: Total time spent is greater than 50% in coordination of care (as documented) at patient's floor/unit and/or counseling patient: Coding Level of Care Code 54595 Subseq Hosp Care Lvl 2 Diagnoses Sepsis A41.9 Complicated UTI (urinary tract infection) N39.0
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
[2021-01-24] MEDS: MINERAL OIL ENEMA 133 ML BTL PR SCH (12:54)
--- NOTE | 2021-01-24 14:21 | Pharmacy Report ---
Pharmacy Abx Dose Short Note - Date of Service January 24, 2021 - Assessment & Plan Assessment 60 year old M receiving Tobramycin and Cefiderocol for treatment of complicated UTI/bacteremia * Day #3 of antimicrobial therapy. * ID consult pending. Plan Tobramycin * Patient is not a candidate for extended-interval dosing due to fluctuating kidney function. * Started on conventional dosing - Tobramycin 140 mg iv q 24 hrs. Trough yesterday evening came back within range at 1.0 (goal <1-2), therefore plan to continue with same frequency for now * Peak collected closer to ~45 mins after dose infusing, resulted at ~6.2 mcg/ml - goal is 8-10 mcg/ml for target peak for bacteremia. Level may actually be slightly lower if drawn closer to 1 hr after dose infusing. Plan to increase dosing to tobramycin 200 mg iv q 24 hrs to achieve higher peak level * Scr continues to change more today, will reassess dosing tomorrow Cefiderocol * Increased to 2 g IV every 8 hour per renal fxn. Pharmacy will continue to follow and will adjust dose/frequency as necessary. Thank you.
--- NOTE | 2021-01-24 14:22 | Fluoroscopy Report ---
MODIFIED BARIUM SWALLOW CLINICAL HISTORY: assess for aspiration COMPARISON STUDY: None. FLUOROSCOPY TIME: 1.8 minutes. TECHNIQUE: A modified barium swallow was performed in conjunction with Speech Pathology. The patient ingested varying consistencies of barium containing material. Video fluoroscopy was performed. FINDINGS: No aspiration was identified with thin liquids, nectar thick liquids, pudding or crackers w ith paste. Epiglottic inversion was normal. Laryngeal elevation was normal. IMPRESSION: 1. No tracheal aspiration. Intact swallowing mechanism. 2. Full recommendations by speech pathology to follow. ACT 112: Negative or not required by law. Electronically signed by: Omar Fisher M.D. 01/24/2021 2:20 PM
[2021-01-24] MEDS: PANTOprazole 40 MG TAB PO SCH ×2 (15:01→19:57)
[2021-01-24] MEDS: SENNA 8.6 MG TAB PO SCH ×2 (15:02→19:56)
[2021-01-24] MEDS: MULTIVITAMIN TAB PO SCH (15:02)
[2021-01-24] MEDS ORDERED: DAPTOmycin 300 MG in SYRINGE 0 ML IV ONE (15:30)
--- NOTE | 2021-01-24 15:30 | CT Scan Report ---
CT chest diagnostic wo con CLINICAL HISTORY: Suspected aspiration and worsening pneumonitis. CT to further evaluate COMPARISON STUDY: Portable chest from 01/22/2021 CT DOSE: 550.71 mGycm TECHNIQUE: Standard CT of the Chest was performed without IV contrast. A dose lowering technique was utilized adhering to the principles of ALARA. FINDINGS: Airway: The airway is clear. No endobronchial lesion is identified. Lungs: Patchy groundglass opacities are present throughout both lungs, right greater than left, geoffrey cteristic of a viral type pneumonitis and probable Covid 19 pneumonia. The lungs are otherwise clear of confluent alveolar opacities, air bronchograms or pulmonary nodules. There is no definite evidence for aspiration pneumonitis. There is evidence for bibasilar atelectasis posteriorly. Pleura: There is no evidence for pleural effusion. There is no evidence for pneumothorax. Mediastinum: There is no evidence for pathologic adenopathy on these limited noncontrast images. The heart size is within normal limits. There is minimal coronary artery calcification. The thoracic aort a is within normal limits. There is no evidence for pericardial effusion. Upper abdomen: The adrenal glands are normal bilaterally. There is a small sliding-type hiatal hernia with oral contrast present from previous cine esophagram. Osseous structures: There is no acute osseous pathology. IMPRESSION: 1. Patchy groundglass opacities are present throughout both lungs, right greater than left, character istic of a viral type pneumonitis and probable Covid 19 pneumonia. 2. Bibasilar atelectasis with no evidence for confluent alveolar opacity or aspiration pneumonitis. ACT 112: Negative or not required by law. Electronically signed by: Kimani Barba M.D. 01/24/2021 3:28 PM
[2021-01-24] MEDS: LINACLOTIDE 145 MCG CAPSULE PO SCH (15:46)
[2021-01-24] MEDS: FLUoxetine HCL 20 MG CAP PO SCH (15:46)
[2021-01-24] MEDS: oxyCODONE/ACETAMINOPHEN 10-325 TAB PO PRN ×2 (15:48→22:07)
[2021-01-24] MEDS: AMITRIPTYLINE HCL 50 MG TAB PO SCH (19:57)
[2021-01-24] MEDS: ATORVASTATIN 20 MG TAB PO SCH (19:57)
[2021-01-24] MEDS ORDERED: DEXTROSE 5% IV SCH (20:00)
[2021-01-24] MEDS ORDERED: TOBRAMYCIN SULFATE IV SCH (20:00)
[2021-01-25] MEDS ORDERED: ZOLPIDEM TARTRATE 10 MG TAB PO ONE (01:05)
[2021-01-25] MEDS: NORMOSOL-R 1,000 ML IV SCH ×2 (04:17→13:21)
[2021-01-25] MEDS: DEXTROSE 5% IV SCH (05:49)
[2021-01-25] MEDS: CEFIDEROCOL SULFATE TOSYLATE IV SCH (05:49)
[2021-01-25 06:25] LABS: INR 1.1 (0.9-1.1); Partial Thromboplastin Ratio 1.3; Partial Thromboplastin Time 34.1 Seconds (21.0-31.0); Prothrombin Time 11.4 Seconds (9.0-12.0)
[2021-01-25 06:26] LABS: Hematocrit (blood only) 23.1 % (42-52); Hemoglobin 7.7 g/dL (14.0-18.0); Mean Corpuscular Hemoglobin 27.3 pg (25-34); Mean Corpuscular Hgb Conc 33.3 g/dL (32-36); Mean Corpuscular Volume 81.9 fL (80-100); Mean Platelet Volume 9.8 fL (7.4-10.4); Nucleated RBC # (auto) 0.06 K/uL (0-0); Nucleated RBC % (auto) 0.3 %; Platelet Count 376 K/uL (130-400); RDW Coefficient of Variation 18.8 % (11.5-14.5); RDW Standard Deviation 56.2 fL (36.4-46.3); Red Blood Count 2.82 M/uL (4.7-6.1); White Blood Count 21.29 K/uL (4.8-10.8)
[2021-01-25 07:05] LABS: Albumin Globulin Ratio 0.2 (0.9-2); Albumin Level 0.9 gm/dl (3.4-5.0); BUN Creatinine Ratio 19.8 (10-20); Bilirubin,Total 0.6 mg/dl (0.2-1); Calcium 7.6 mg/dl (8.5-10.1); Creatinine Clr Calc Pharmacy 86.1 ml/min; Est GFR (African American) 99.9 ml/min; Est GFR (Non-African American) 86.2 ml/min; Magnesium 1.8 mg/dl (1.8-2.4); Phosphorus 1.8 mg/dl (2.5-4.9); Total Protein 5.9 gm/dl (6.4-8.2)
[2021-01-25] MEDS: oxyCODONE/ACETAMINOPHEN 10-325 TAB PO PRN ×2 (08:20→16:12)
[2021-01-25] MEDS: HEPARIN SOD 5,000 UNIT/0.5 ML VIAL SQ SCH ×2 (08:21→21:50)
[2021-01-25] MEDS: PANTOprazole 40 MG TAB PO SCH ×2 (08:21→21:51)
[2021-01-25] MEDS: MINERAL OIL ENEMA 133 ML BTL PR SCH (08:58)
[2021-01-25] MEDS: FLUoxetine HCL 20 MG CAP PO SCH (12:10)
[2021-01-25] MEDS: MULTIVITAMIN TAB PO SCH (12:10)
[2021-01-25] MEDS: SENNA 8.6 MG TAB PO SCH ×2 (12:10→21:51)
[2021-01-25] MEDS: LINACLOTIDE 145 MCG CAPSULE PO SCH (12:10)
[2021-01-25] MEDS: HYDROmorphone INJ 0.5 MG/0.5 ML SYR IV PRN ×2 (12:14→21:49)
[2021-01-25] MEDS: AMPICILLIN/SULBACTAM SOD 3,000 MG in 0.9 % SODIUM CHLORIDE 100 ML IV SCH ×2 (12:27→17:47)
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
[2021-01-25] MEDS: POTASSIUM CHLORIDE CRTAB 20 MEQ TABCR PO SCH ×2 (13:46→21:51)
[2021-01-25] MEDS: MELATONIN 3 MG TAB PO PRN (21:50)
[2021-01-25] MEDS: ATORVASTATIN 20 MG TAB PO SCH (21:50)
[2021-01-25] MEDS: AMITRIPTYLINE HCL 50 MG TAB PO SCH (21:51)
[2021-01-26] MEDS: AMPICILLIN/SULBACTAM SOD 3,000 MG in 0.9 % SODIUM CHLORIDE 100 ML IV SCH ×4 (00:50→17:56)
[2021-01-26] MEDS: oxyCODONE/ACETAMINOPHEN 10-325 TAB PO PRN ×4 (00:58→21:50)
[2021-01-26 07:12] LABS: Hemoglobin 8.5 g/dL (14.0-18.0); Mean Corpuscular Hemoglobin 27.2 pg (25-34); Mean Corpuscular Hgb Conc 32.7 g/dL (32-36); Mean Corpuscular Volume 83.3 fL (80-100); Mean Platelet Volume 9.4 fL (7.4-10.4); Nucleated RBC # (auto) 0.13 K/uL (0-0); Nucleated RBC % (auto) 0.5 %; Platelet Count 473 K/uL (130-400); RDW Coefficient of Variation 19.1 % (11.5-14.5); RDW Standard Deviation 57.1 fL (36.4-46.3); Red Blood Count 3.12 M/uL (4.7-6.1); Reticulated Hemoglobin 28.2 pg (28.2-36.6); Reticulocyte % 1.6 % (0.5-2.0); Reticulocytes # 0.05 10^6/uL (0.02-0.10); White Blood Count 23.85 K/uL (4.8-10.8)
[2021-01-26 07:47] LABS: BUN Creatinine Ratio 16.1 (10-20); Calcium 8.6 mg/dl (8.5-10.1); Creatinine Clr Calc Pharmacy 81.9 ml/min; Est GFR (African American) 93.9 ml/min; Magnesium 1.8 mg/dl (1.8-2.4); Potassium 4.3 mmol/L (3.5-5.1)
[2021-01-26 08:18] LABS: Ferritin 374.6 ng/ml (8-388)
[2021-01-26] MEDS: PANTOprazole 40 MG TAB PO SCH ×2 (08:36→21:53)
[2021-01-26] MEDS: HEPARIN SOD 5,000 UNIT/0.5 ML VIAL SQ SCH ×2 (08:37→21:52)
[2021-01-26] MEDS: MINERAL OIL ENEMA 133 ML BTL PR SCH ×2 (08:37→08:38)
[2021-01-26 08:51] LABS: Vitamin B12 > 2000 pg/ml (193-986)
[2021-01-26] MEDS: MULTIVITAMIN TAB PO SCH (11:46)
[2021-01-26] MEDS: FLUoxetine HCL 20 MG CAP PO SCH (11:46)
[2021-01-26] MEDS: SENNA 8.6 MG TAB PO SCH ×3 (11:46→22:11)
[2021-01-26] MEDS: LINACLOTIDE 145 MCG CAPSULE PO SCH (11:46)
--- NOTE | 2021-01-26 11:56 | XRay Report ---
XR chest 1V portable CLINICAL HISTORY: Continue fever, WBC, concern for aspiration COMPARISON STUDY: Chest radiograph January 22, 2021. Chest CT January 24, 2021. FINDINGS: Postoperative findings within the thoracic spine are incidentally noted. There is oral cont rast within the splenic flexure of the colon from recent modified barium swallow. Asymmetric right porsche ng airspace opacities have increased. Cardiac size is normal. Mediastinal contours are normal. IMPRESSION: Progression of right lung airspace opacities. The findings favor pneumonia or aspiration pneumonitis. ACT 112: Negative or not required by law. Electronically signed by: Omar Fisher M.D. 01/26/2021 11:55 AM
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
[2021-01-26] MEDS: HYDROmorphone INJ 0.5 MG/0.5 ML SYR IV PRN (19:42)
[2021-01-26] MEDS: AMITRIPTYLINE HCL 50 MG TAB PO SCH (21:51)
[2021-01-26] MEDS: ATORVASTATIN 20 MG TAB PO SCH (21:52)
[2021-01-27] MEDS: MELATONIN 3 MG TAB PO PRN ×2 (00:09→23:56)
[2021-01-27] MEDS: AMPICILLIN/SULBACTAM SOD 3,000 MG in 0.9 % SODIUM CHLORIDE 100 ML IV SCH ×5 (00:09→23:56)
[2021-01-27] MEDS: oxyCODONE/ACETAMINOPHEN 10-325 TAB PO PRN ×4 (05:23→23:56)
[2021-01-27 07:00] LABS: Hematocrit (blood only) 22.5 % (42-52); Hemoglobin 7.7 g/dL (14.0-18.0); Mean Corpuscular Hemoglobin 28.1 pg (25-34); Mean Corpuscular Hgb Conc 34.2 g/dL (32-36); Mean Corpuscular Volume 82.1 fL (80-100); Mean Platelet Volume 9.3 fL (7.4-10.4); Nucleated RBC % (auto) 0.5 %; Platelet Count 541 K/uL (130-400); RDW Coefficient of Variation 18.8 % (11.5-14.5); RDW Standard Deviation 55.5 fL (36.4-46.3); Red Blood Count 2.74 M/uL (4.7-6.1); White Blood Count 21.28 K/uL (4.8-10.8)
[2021-01-27 07:30] LABS: BUN Creatinine Ratio 13.9 (10-20); Calcium 7.8 mg/dl (8.5-10.1); Creatinine Clr Calc Pharmacy 83.5 ml/min; Est GFR (African American) 96.2 ml/min; Magnesium 1.6 mg/dl (1.8-2.4); Potassium 3.8 mmol/L (3.5-5.1)
--- NOTE | 2021-01-27 07:45 | Ultrasound Report ---
US renal/blad retro comp HISTORY: 60 years-old Male Look for hydronephrosis; stent placement if able follow-up study in a pat ient with bilateral ureteral stents with hydronephrosis COMPARISON: CT abdomen and pelvis 01/21/2021 TECHNIQUE: Multiple real-time sonographic images of the kidneys and urinary bladder were obtained ass essing grayscale appearance and color flow FINDINGS: The right kidney measures 10.9 x 4.2 x 4.4 cm. A 9 mm nonobstructing calculus is again noted within t he superior pole right kidney. There is resolution of the previously described hydronephrosis. Left kidney measures 10.3 x 5.7 x 4.8 cm. Calculi the left kidney are better seen on the comparison C T study. There is resolution of the previously described left-sided hydronephrosis. Decompressed urinary bladder with Camp catheter in place. Ureteral stents are not diagnostically vis ualized. IMPRESSION: 1. Resolution of the previously described bilateral hydronephrosis. 2. Bilateral renal calculi are better visualized on the comparison CT study. 3. Decompressed urinary bladder with Camp catheter. ACT 112: Negative or not required by law. The above report was generated using voice recognition software. It may contain grammatical, syntax o r spelling errors. Electronically signed by: Prateek Garcia M.D. 01/27/2021 7:44 AM
[2021-01-27] MEDS: PANTOprazole 40 MG TAB PO SCH ×2 (08:26→20:46)
[2021-01-27] MEDS: HEPARIN SOD 5,000 UNIT/0.5 ML VIAL SQ SCH ×2 (08:27→20:46)
[2021-01-27] MEDS: MINERAL OIL ENEMA 133 ML BTL PR SCH (08:28)
[2021-01-27] MEDS: SENNA 8.6 MG TAB PO SCH ×2 (11:10→20:45)
[2021-01-27] MEDS: LINACLOTIDE 145 MCG CAPSULE PO SCH (11:11)
[2021-01-27] MEDS: MULTIVITAMIN TAB PO SCH (11:11)
[2021-01-27] MEDS: FLUoxetine HCL 20 MG CAP PO SCH (11:11)
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
[2021-01-27] MEDS ORDERED: IRON SUCROSE 300 MG in SODIUM CHLORIDE 0.9% 250 ML IV ONE (16:00)
[2021-01-27] MEDS: AMITRIPTYLINE HCL 50 MG TAB PO SCH (20:45)
[2021-01-27] MEDS: ATORVASTATIN 20 MG TAB PO SCH (20:46)
[2021-01-27] MEDS: HYDROmorphone INJ 0.5 MG/0.5 ML SYR IV PRN (22:30)
[2021-01-28] MEDS: AMPICILLIN/SULBACTAM SOD 3,000 MG in 0.9 % SODIUM CHLORIDE 100 ML IV SCH (06:02)
[2021-01-28] MEDS: oxyCODONE/ACETAMINOPHEN 10-325 TAB PO PRN ×2 (06:34→12:40)
[2021-01-28 07:10] LABS: Hematocrit (blood only) 23.9 % (42-52); Hemoglobin 7.7 g/dL (14.0-18.0); Mean Corpuscular Hemoglobin 27.5 pg (25-34); Mean Corpuscular Hgb Conc 32.2 g/dL (32-36); Mean Corpuscular Volume 85.4 fL (80-100); Mean Platelet Volume 9.1 fL (7.4-10.4); Nucleated RBC % (auto) 0.5 %; Platelet Count 659 K/uL (130-400); RDW Coefficient of Variation 19.2 % (11.5-14.5); RDW Standard Deviation 58.9 fL (36.4-46.3); White Blood Count 18.68 K/uL (4.8-10.8)
[2021-01-28 07:26] LABS: BUN Creatinine Ratio 14.6 (10-20); Calcium 8.3 mg/dl (8.5-10.1); Est GFR (African American) 109.5 ml/min; Est GFR (Non-African American) 94.5 ml/min; Magnesium 1.9 mg/dl (1.8-2.4); Potassium 4.2 mmol/L (3.5-5.1)
[2021-01-28] MEDS: PANTOprazole 40 MG TAB PO SCH (08:55)
[2021-01-28] MEDS: HEPARIN SOD 5,000 UNIT/0.5 ML VIAL SQ SCH (08:55)
[2021-01-28] MEDS: MINERAL OIL ENEMA 133 ML BTL PR SCH (08:55)
[2021-01-28] MEDS: FLUoxetine HCL 20 MG CAP PO SCH (12:38)
[2021-01-28] MEDS: MULTIVITAMIN TAB PO SCH (12:38)
[2021-01-28] MEDS: SENNA 8.6 MG TAB PO SCH (12:38)
[2021-01-28] MEDS: LINACLOTIDE 145 MCG CAPSULE PO SCH (12:38)
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
== END 2021-01-28 13:14 | disposition home or self-care (01) | DRG 659 ==
LOC: ED 14:48 → EDINP 19:41 → ASU 20:15 → SUATTDRO 20:16 → EDINP 20:16 → 2S 01-22 20:27 → 3W 01-25 22:25

== ENCOUNTER 2021-03-17 05:29 | Inpatient (IN) ==
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
[2021-03-17] MEDS ORDERED: SODIUM CHLORIDE 0.9% 1000ML 1,000 ML IV SCH (06:00)
[2021-03-17 06:03] LABS: Basophils # (auto) 0.08 K/uL (0-0.2); Basophils % (auto) 0.5 %; Eosinophils # (auto) 0.48 K/uL (0-0.5); Eosinophils % (auto) 2.9 %; Hematocrit (blood only) 33.1 % (42-52); Hemoglobin 10.6 g/dL (14.0-18.0); Immature Granulocytes # (auto) 0.05 K/uL (0.00-0.02); Immature Granulocytes % (auto) 0.3 %; Lymphocytes # (auto) 2.29 K/uL (1.2-3.4); Lymphocytes % (auto) 13.9 %; Mean Corpuscular Hemoglobin 28.9 pg (25-34); Mean Corpuscular Volume 90.2 fL (80-100); Mean Platelet Volume 9.1 fL (7.4-10.4); Monocytes # (auto) 0.91 K/uL (0.11-0.59); Monocytes % (auto) 5.5 %; Neutrophils # (auto) 12.72 K/uL (1.4-6.5); Neutrophils % (auto) 76.9 %; Platelet Count 942 K/uL (130-400); RDW Coefficient of Variation 17.7 % (11.5-14.5); RDW Standard Deviation 58.6 fL (36.4-46.3); Red Blood Count 3.67 M/uL (4.7-6.1); White Blood Count 16.53 K/uL (4.8-10.8)
[2021-03-17 06:26] LABS: Troponin I < 0.03 ng/ml (0-0.04)
[2021-03-17 06:43] LABS: Alanine Aminotransferase 15 U/L (7-52); Albumin Globulin Ratio 0.5 (0.9-2); Albumin Level 2.2 gm/dl (3.4-5.0); Alkaline Phosphatase 188 U/L (34-104); Anion Gap 8 (3-11); Aspartate Aminotransferase 22 U/L (13-39); Bilirubin,Total 0.3 mg/dl (0.2-1.0); Blood Urea Nitrogen 16 mg/dl (6-23); Carbon Dioxide 24 mmol/L (21-32); Chloride 106 mmol/L (98-107); Creatinine Clr Calc Pharmacy 125.9 ml/min; Est GFR (African American) 124.2 ml/min; Est GFR (Non-African American) 107.2 ml/min; Globulin 4.5 gm/dl (2.5-4.0); Glucose 69 mg/dl (70-99); Magnesium 1.7 mg/dl (1.7-2.4); Potassium 4.2 mmol/L (3.5-5.1); Sodium 138 mmol/L (136-145); Total Protein 6.7 gm/dl (6.0-8.3)
[2021-03-17 06:50] LABS: Appearance Urine Turbid (Clear); Bacteria Urine Automated 4+ (Negative); Bilirubin Urine Negative (Negative); Blood Urine 3+ (Negative); Color Urine Dark Yellow; Epithelial Cell Urine Auto >30 /lpf (0-5); Glucose Urine UA Negative (Negative); Ketones Urine Trace (Negative); Leukocyte Esterase Urine 3+ (Negative); Nitrite Urine Negative (Negative); Protein Urine 2+ (Negative); Specific Gravity Urine 1.019 (1.000-1.030); Urobilinogen Urine Negative (Negative); WBC Urine Automated >30 /hpf (0-5); pH Urine 6.5 (4.5-7.5)
--- NOTE | 2021-03-17 06:57 | XRay Report ---
XR chest 1V portable HISTORY: 60 years-old Male weakness acute weakness COMPARISON: Chest radiograph 01/26/2021 TECHNIQUE: Portable AP view of the chest FINDINGS: The cardiomediastinal and hilar silhouettes are within normal limits. No pneumothorax, pleural effusi on, airspace consolidation or overt pulmonary edema. There is improved aeration of the lungs from com parison. Residual interstitial coarsening of the right lung. Degenerative changes of the shoulders an d spine. Fusion hardware of the thoracic spine again noted. Surgical clip of the abdominal left upper quadrant. IMPRESSION: There is improved aeration of the lungs from prior study. Mild interstitial coarsening th roughout the right lung is suggestive of resolving pneumonitis versus postinflammatory scarring. ACT 112: Negative or not required by law. The above report was generated using voice recognition software. It may contain grammatical, syntax o r spelling errors. Electronically signed by: Prateek Garcia M.D. 03/17/2021 6:56 AM
[2021-03-17 07:06] LABS: Partial Thromboplastin Ratio 1.2; Partial Thromboplastin Time 32.4 Seconds (21.0-31.0); Prothrombin Time 10.1 Seconds (9.0-12.0)
[2021-03-17] MEDS ORDERED: cefTRIAXone SODIUM 2,000 MG/70 ML BAG IV STA (07:25)
[2021-03-17 07:40] LABS: RBC Urine Automated >30 /hpf (0-4)
[2021-03-17] MEDS ORDERED: PIPERACILL/TAZOBAC CONSULT ACTIVE PRN (07:56)
[2021-03-17] MEDS ORDERED: PIPERACILLIN/TAZOBACTAM 3.375 GM in DEXTROSE 5% 100 ML IV SCH (08:00)
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
--- NOTE | 2021-03-17 08:49 | XRay Report ---
TWO VIEW CHEST CLINICAL HISTORY: Sepsis. FINDINGS: AP and lateral chest radiographs are compared to study dated 03/17/2021 and correlated with chest CT dated 01/24/2021. The cardiomediastinal silhouette is unremarkable. Nonspecific interstitial thickening is similar to previous. No airspace consolidation or pleural effusion is identified. Ther e is no pneumothorax. The skeletal structures appear osteopenic. Degenerative change and scoliosis is noted in the thoracic spine with spinal rods in place. Postoperative change is partially visualized in the right proximal humerus. Advanced arthritic change is seen in the shoulders Intact. Postoperati ve change is noted in the upper abdomen. IMPRESSION: There is bibasilar scarring/atelectasis. Airspace consolidation seen on 01/26/2021 has al most completely resolved. ACT 112: Negative or not required by law. Electronically signed by: Luther Vasquez M.D. 03/17/2021 8:48 AM
[2021-03-17] MEDS: PIPERACILLIN/TAZOBACTAM 4.5 GM/120 ML BAG IV ONE ×2 (10:04→10:06)
[2021-03-17] MEDS: ASCORBIC ACID 500 MG TAB PO SCH (10:41)
[2021-03-17] MEDS: FLUoxetine HCL 20 MG CAP PO SCH (10:41)
[2021-03-17] MEDS: LINACLOTIDE 145 MCG CAPSULE PO SCH (10:42)
[2021-03-17] MEDS: MULTIVITAMIN TAB PO SCH (10:42)
[2021-03-17] MEDS: ASPIRIN 81 MG ECTAB PO SCH (10:42)
[2021-03-17] MEDS: PANTOprazole 40 MG TAB PO SCH ×2 (10:43→20:43)
[2021-03-17] MEDS: SENNA 8.6 MG TAB PO SCH ×2 (11:42→20:13)
[2021-03-17] MEDS: oxyCODONE/ACETAMINOPHEN 10-325 TAB PO PRN ×2 (12:54→19:05)
--- NOTE | 2021-03-17 16:21 | XRay Report ---
XR chest 2V PA/lateral CLINICAL HISTORY: Cough. COMPARISON STUDY: Chest radiograph March 17, 2021. FINDINGS: There is subtle asymmetric reticulonodular interstitial thickening within the right lung, s imilar to prior. Left lung is clear. Postoperative findings within the thoracic spine and right humer us are noted. Cardiac size is normal. Mediastinal contours are normal. There is no evidence for pulmo nary edema. No pneumothorax or pleural effusion is present. IMPRESSION: Mild asymmetric reticulonodular initial thickening within the right lung, similar to kayleen or exam. This may reflect an infectious process. ACT 112: Negative or not required by law. Electronically signed by: Omar Fisher M.D. 03/17/2021 4:20 PM
[2021-03-17] MEDS: HEPARIN SOD 5,000 UNIT/0.5 ML VIAL SQ SCH ×2 (17:05→22:37)
[2021-03-17] MEDS: PIPERACILLIN/TAZOBACTAM 3.375 GM in DEXTROSE 5% 100 ML IV SCH (17:12)
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
--- NOTE | 2021-03-17 19:19 | Electrocardiogram Report ---
Test Reason : Blood Pressure : / mmHG Vent. Rate : 086 BPM Atrial Rate : 086 BPM P-R Int : 152 ms QRS Dur : 110 ms QT Int : 398 ms P-R-T Axes : 053 -22 055 degrees QTc Int : 476 ms Poor data quality, interpretation may be adversely affected Normal sinus rhythm Normal ECG When compared with ECG of 21-JAN-2021 15:53, Incomplete right bundle branch block is no longer Present Borderline criteria for Lateral infarct are no longer Present Confirmed by Hilario Marvin ([id number]) on 03/17/2021 7:18:55 PM Referred By: REFERRED SELF Confirmed By:Hilario Marvin
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
[2021-03-17] MEDS: ZOLPIDEM TARTRATE 10 MG TAB PO PRN (22:38)
[2021-03-17] MEDS: AMITRIPTYLINE HCL 50 MG TAB PO SCH (22:38)
[2021-03-17] MEDS: ATORVASTATIN 20 MG TAB PO SCH (22:39)
[2021-03-17] MEDS ORDERED: FLUCONAZOLE 200 MG/100 ML BAG IV ONE (23:45)
[2021-03-18] MEDS: PIPERACILLIN/TAZOBACTAM 3.375 GM in DEXTROSE 5% 100 ML IV SCH ×2 (00:06→07:37)
[2021-03-18] MEDS: HEPARIN SOD 5,000 UNIT/0.5 ML VIAL SQ SCH ×3 (05:46→22:13)
--- NOTE | 2021-03-18 08:05 | Urology Progress Note ---
Date of Service March 18, 2021 Assessment & Plan (1) Neurogenic bladder: (2) Complicated UTI (urinary tract infection): (3) Hydroureteronephrosis: Plan: 60-year-old male with a history of paraplegia and subsequent neurogenic bladder which is managed with a Camp catheter. He also additionally has bilateral hydronephrosis which has been managed with chronic bilateral ureteral stents. He presented with findings concerning for urinary tract infection. Patient is n.p.o. in anticipation of cystoscopy with bilateral ureteral stent exchange today. He is stable and had them exchanged 2 months ago, however due to previous encrustation, multi organism UTIs and scheduling being an issue with PAUL, electing to exchange these while he is in the hospital to avoid delay or further infections in the interim when he would typically be scheduled for exchange in April Follow-up cultures. Continue Zosyn and Diflucan Maintain Camp catheter to gravity drainage Admission and Anticipated Discharge Date Admission Date: March 17, 2021 Subjective Resting comfortably this morning. Afebrile overnight. Camp catheter continues to drain. He is on Zosyn and Diflucan. Labs pending this morning. Procalcitonin was elevated at 9. Plan for cystoscopy with stent exchange this morning. Review of Systems Review of Systems: 14 point review of systems negative outside of what is listed above in HPI Physical Exam Physical Exam: General: Alert and oriented, no acute distress HEENT: Normocephalic, mucous membranes moist Cardiovascular: Regular rate Pulmonary: Nonlabored respirations Abdomen: Nondistended : Camp catheter draining yellow urine Skin: Warm, dry, no rashes noted Results & Data ([facility]) Vital Signs (Past 12 Hours) Vital Signs Temp Pulse Pulse Resp BP Pulse Ox 03/18/21 07:16 36.7 C 94 H 18 127/83 92 03/17/21 22:19 36.8 C 92 H 18 113/77 95 03/17/21 21:20 12 03/17/21 20:18 14 PG Care Time/CCT Total # of Minutes Spent Total Time Spent with Patient: Total time spent is greater than 50% in coordination of care (as documented) at patient's floor/unit and/or counseling patient: Coding [place] [address] Subseq Hosp Care Lvl 2 Patient Type Established Diagnoses Neurogenic bladder N31.9 Complicated UTI (urinary tract infection) N39.0 Hydroureteronephrosis N13.30
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
[2021-03-18] MEDS ORDERED: DEXTROSE 50% 50 ML SYRINGE IV PRN (08:24)
[2021-03-18] MEDS ORDERED: GLUCOSE 10 TABS/TUBE PO PRN (08:24)
[2021-03-18] MEDS ORDERED: CARBOHYDRATES FOR HYPOGLYCEMIA PO PRN (08:24)
[2021-03-18] MEDS ORDERED: GLUCAGON FOR INJ 1 MG VIAL SQ PRN (08:24)
[2021-03-18] MEDS ORDERED: GLUCOSE 40% GEL 15 GM TUBE PO PRN (08:24)
[2021-03-18] MEDS ORDERED: MAGNESIUM SULFATE / D5W 1 GM/100 ML BAG IV ONE ×2 (08:30→14:00)
[2021-03-18] MEDS ORDERED: PROPOFOL IV EMULSION 10 MG/ML 20 ML VIAL IV ONE (08:41)
[2021-03-18] MEDS ORDERED: ONDANSETRON INJ 2 MG/ML 2 ML VIAL ONE (08:41)
[2021-03-18] MEDS ORDERED: LIDOCAINE 2% 2 ML VIAL/AMP(20MG/ML) INFIL ONE (08:41)
[2021-03-18] MEDS ORDERED: KETOROLAC 30 MG/ML VIAL ONE (08:41)
[2021-03-18] MEDS ORDERED: fentaNYL citrate 100 MCG/2 ML VIAL ONE (08:42)
[2021-03-18] MEDS: LINACLOTIDE 145 MCG CAPSULE PO SCH (08:43)
[2021-03-18] MEDS: ASCORBIC ACID 500 MG TAB PO SCH ×2 (08:43→20:03)
[2021-03-18] MEDS: MULTIVITAMIN TAB PO SCH (08:43)
[2021-03-18] MEDS: ASPIRIN 81 MG ECTAB PO SCH (08:43)
[2021-03-18] MEDS: SENNA 8.6 MG TAB PO SCH ×2 (08:43→20:04)
[2021-03-18] MEDS: PANTOprazole 40 MG TAB PO SCH ×2 (08:43→20:03)
[2021-03-18] MEDS: FLUoxetine HCL 20 MG CAP PO SCH (08:43)
[2021-03-18] MEDS: FERROUS SULFATE 325 MG TAB PO SCH (08:43)
--- NOTE | 2021-03-18 09:27 | XRay Report ---
XR chest 2V PA/lateral CLINICAL HISTORY: weakness, RLL opacity, ?PNA COMPARISON STUDY: Chest radiograph March 17, 2021 at 4:16 PM. FINDINGS: Postoperative findings within the thoracic spine are incidentally noted. No pneumothorax or pleural effusion is present. There is suspected slight asymmetric right lung airspace opacity. Left lung is clear. There is no evidence for pulmonary edema. IMPRESSION: Suspected slight asymmetric right lung airspace opacity which favors an infectious proce ss. ACT 112: Negative or not required by law. Electronically signed by: Omar Fisher M.D. 03/18/2021 9:26 AM
[2021-03-18] MEDS ORDERED: LABETALOL HCL IV 5 MG/ML 20ML IV PRN (09:31)
[2021-03-18] MEDS ORDERED: ATROPINE SULFATE 0.1 MG/ML 10ML SYR IV PRN (09:31)
[2021-03-18] MEDS ORDERED: fentaNYL citrate 100 MCG/2 ML VIAL IV PRN (09:31)
[2021-03-18] MEDS ORDERED: ONDANSETRON INJ 2 MG/ML 2 ML VIAL IV PRN (09:31)
[2021-03-18] MEDS ORDERED: DIATRIZOATE MEGLUMINE 30% 100ML VIAL INSTIL ONE (10:20)
--- NOTE | 2021-03-18 10:21 | Post Operative Brief Note ---
PG Immediate Post Op with CF Date of Surgery March 18, 2021 Pre & Post Diagnosis Operation Date: 03/18/21 08:45 Pre-Op Diagnosis: Complicated urinary tract infection Hydroureteronephrosis Neurogenic bladder Post-Op Diagnosis: Complicated urinary tract infection Hydroureteronephrosis Neurogenic bladder I identified the patient and participated in the time-out.: Yes Procedure Operation Date: 03/18/21 08:45 Actual Procedures p Cystoscopy, Bilateral Retrograde Pyelogram, and Bilateral Ureteral Stent Exchange(Bilateral), garrison catheter exchange - Ottoniel Verdin MD Surgeon Ottoniel Verdin MD Stock Holder None Estimated Blood Loss 5 Findings See Below High bladder neck. Stents encrusted. Stents exchanged in good position. Specimens Specimen Description: None per surgeon Drains Garrison Catheter (18 Icelandic Garrison catheter removed and replaced by Dr. Verdin without difficulty. ) Anesthesia Type MAC Complications None Disposition Accompanied Patient To Recovery: No Disposition: Recovery Room Overlapping Procedure I was present for: the critical portions of procedure.
--- NOTE | 2021-03-18 10:21 | Operative Report ---
PG Post Operative Report Pre & Post Diagnosis Operation Date: 03/18/21 08:45 Pre-Op Diagnosis: Complicated urinary tract infection Hydroureteronephrosis Neurogenic bladder Post-Op Diagnosis: Complicated urinary tract infection Hydroureteronephrosis Neurogenic bladder I identified the patient and participated in the time-out.: Yes Procedure Operation Date: 03/18/21 08:45 Actual Procedures p Cystoscopy, Bilateral Retrograde Pyelogram with radiographic interpretation, Bilateral Ureteral Stent Exchange(Bilateral), Camp catheter exchange- Ottoniel Verdin MD Surgeon Ottoniel Verdin MD Marketing Reporting Analyst None Estimated Blood Loss 5 Findings See Below 1. Very high bladder neck making entry into the bladder with the scope difficult 2. Bilateral retrograde pyelograms showed opacified renal collecting systems 3. Stents exchanged in good position Specimens None Drains 1. Bilateral 6 Bangladeshi by 26 cm ureteral stents 2. 18 Bangladeshi Camp catheter with 10 cc in balloon Anesthesia Type MAC Complications None Disposition Accompanied Patient To Recovery: No Disposition: Recovery Room Indications 60-year-old male with paraplegia and resultant neurogenic bladder and bilateral hydronephrosis managed with chronic bilateral ureteral stents and chronic Camp catheter. Presented with concerns for urinary tract infection. As he has a history of encrustation and would be due for stent exchange soon, opted to do this in the hospital while on broad-spectrum antibiotics. Description of Procedure After informed consent was obtained, the patient was transported to the operative suite. General anesthesia was induced. They were placed in dorsal lithotomy position and prepped and draped in sterile fashion. They received preoperative Zosyn and Diflucan. An appropriate surgical timeout was performed. 22 Bangladeshi rigid cystoscope was inserted per urethra and the bladder. The bladder neck was noted to be very high which made entry difficult. Turned my attention of the right indwelling stent and advanced a sensor wire alongside this and confirmed this in the upper pole of the kidney. His stents had previously been encrusted and I did not want to lose access by trying to externalize them. I backed the scope out over the wire and went back in and alongside it with a grasper. I removed the right ureteral stent and ensured that the wire was in appropriate position. I advanced a 5 Bangladeshi open-ended catheter over the wire and removed the wire and shot a right retrograde pyelogram to delineate the renal pelvis. A sensor wire was advanced back into the kidney and the 5 Bangladeshi open-ended catheter was removed. I backloaded the cystoscope and deployed a 6 Bangladeshi by 26 cm right ureteral stent with a good proximal coil in the kidney under fluoroscopic imaging a good distal coil in the bladder under direct visualization. I then turned my attention to the left ureteral orifice and advanced a sensor wire alongside the stent and confirmed this in the upper pole of the kidney. I backed the scope out over the wire and then advanced it back in and alongside the wire and removed the stent with a grasper, shooting fluoroscopy to ensure that it was the left stent and the wire remained in position. I then advanced a 5 Bangladeshi open-ended catheter over the wire and removed the wire and shot a left retrograde pyelogram to delineate the left renal pelvis. I advanced the wire back in the upper pole the kidney and removed the 5 Bangladeshi open-ended catheter. I backloaded the scope over the wire and deployed a 6 Bangladeshi by 26 mm left ureteral stent with a good coil in the kidney confirmed fluoroscopically and a good distal coil noted in the bladder under direct visualization. I confirmed distal coils with fluoroscopy as well. The bladder was left full and the scope was removed. I placed an 18 Bangladeshi Camp catheter with return of urine and inflated balloon with 10 cc of sterile water. This concluded the end of the case. All counts correct at the end of the case. I was present Real mcgill for the entire the procedure. I attest to the content of the Intraoperative Record and any orders documented therein. Any exceptions are noted below.
--- NOTE | 2021-03-18 10:36 | Fluoroscopy Report ---
FL retrograde includes kub CLINICAL HISTORY: BILATERAL CYSTO/RETROGRADE/STENT EXCHANGE COMPARISON STUDY: CT of the abdomen and pelvis January 21, 2021. Renal ultrasound January 26, 2021 . FLUOROSCOPY TIME: 30 seconds. FLUOROSCOPIC IMAGES: 4 FINDINGS: Fluoroscopy was provided during cystoscopy and bilateral ureteral stent exchange. Bilateral collecting system dilatation is noted. Collecting systems are partially opacified. IMPRESSION: Fluoroscopy provided during cystoscopy, bilateral retrograde exams and bilateral uretera l stent exchange. ACT 112: Negative or not required by law. Electronically signed by: Omar Fisher M.D. 03/18/2021 10:35 AM
--- NOTE | 2021-03-18 10:54 | Anesthesiology Progress Note ---
Date of Service March 18, 2021 Anesthesia Post Procedure Vital Signs Vital Signs: Temp Pulse Pulse Resp BP Pulse Ox 03/18/21 10:40 81 18 108/86 100 03/18/21 10:31 36.5 C 84 18 131/85 100 03/18/21 07:16 36.7 C 94 H 18 127/83 92 03/17/21 22:19 36.8 C 92 H 18 113/77 95 03/17/21 21:20 12 03/17/21 20:18 14 03/17/21 19:25 14 03/17/21 16:29 36.5 C 100 H 17 128/81 97 03/17/21 15:30 18 03/17/21 15:00 20 03/17/21 14:30 22 94 03/17/21 14:00 93 H 21 126/78 95 03/17/21 12:30 80 24 149/86 H 97 Pain Intensity Back: Pain Intensity: 3 Transfer of Care Handoff Completed per policy Notes Mental Status: alert / awake / arousable Patient Amnestic to Procedure: Yes Nausea / Vomiting: adequately controlled Pain: adequately controlled Airway Patency, RR, SpO2: stable & adequate BP & HR: stable & adequate Hydration State: stable & adequate Anesthetic Complications: no major complications apparent
[2021-03-18 12:01] LABS: Basophils # (auto) 0.13 K/uL (0-0.2); Basophils % (auto) 1.1 %; Eosinophils # (auto) 0.32 K/uL (0-0.5); Eosinophils % (auto) 2.6 %; Hematocrit (blood only) 30.8 % (42-52); Hemoglobin 9.8 g/dL (14.0-18.0); Immature Granulocytes # (auto) 0.05 K/uL (0.00-0.02); Immature Granulocytes % (auto) 0.4 %; Lymphocytes # (auto) 2.15 K/uL (1.2-3.4); Lymphocytes % (auto) 17.4 %; Mean Corpuscular Hemoglobin 28.2 pg (25-34); Mean Corpuscular Hgb Conc 31.8 g/dL (32-36); Mean Corpuscular Volume 88.8 fL (80-100); Mean Platelet Volume 8.9 fL (7.4-10.4); Monocytes # (auto) 0.91 K/uL (0.11-0.59); Monocytes % (auto) 7.4 %; Neutrophils # (auto) 8.82 K/uL (1.4-6.5); Neutrophils % (auto) 71.1 %; Platelet Count 924 K/uL (130-400); RDW Coefficient of Variation 17.4 % (11.5-14.5); RDW Standard Deviation 56.5 fL (36.4-46.3); Red Blood Count 3.47 M/uL (4.7-6.1); White Blood Count 12.38 K/uL (4.8-10.8)
[2021-03-18 12:11] LABS: Appearance Urine Turbid (Clear); Bacteria Urine Automated 1+ (Negative); Bilirubin Urine Negative (Negative); Blood Urine 3+ (Negative); Color Urine Dark Yellow; Glucose Urine UA Negative (Negative); Ketones Urine Negative (Negative); Leukocyte Esterase Urine 3+ (Negative); Nitrite Urine Positive (Negative); Protein Urine 2+ (Negative); Specific Gravity Urine 1.032 (1.000-1.030); Urobilinogen Urine Negative (Negative); WBC Urine Automated >30 /hpf (0-5)
[2021-03-18 12:54] LABS: RBC Urine Automated >30 /hpf (0-4)
[2021-03-18 12:59] LABS: BUN Creatinine Ratio 15.8 (10-20); Calcium 7.7 mg/dl (8.5-10.1); Creatinine Clr Calc Pharmacy 84.8 ml/min; Est GFR (African American) 101.1 ml/min; Est GFR (Non-African American) 87.3 ml/min; Magnesium 1.6 mg/dl (1.7-2.4); Potassium 3.9 mmol/L (3.5-5.1)
[2021-03-18] MEDS: METHENAMINE HIPPURATE 1 GM TAB PO SCH ×2 (13:09→20:04)
[2021-03-18] MEDS ORDERED: SODIUM CHLORIDE 0.9% 1000ML 1,000 ML IV SCH (14:00)
[2021-03-18] MEDS: PIPERACILLIN/TAZOBACTAM 4.5 GM in DEXTROSE 5% 100 ML IV SCH (16:37)
[2021-03-18] MEDS: oxyCODONE/ACETAMINOPHEN 10-325 TAB PO PRN (20:02)
[2021-03-18] MEDS ORDERED: FLUCONAZOLE 100 MG/50 ML BAG IV SCH (22:00)
[2021-03-18] MEDS: ZOLPIDEM TARTRATE 10 MG TAB PO PRN (22:11)
[2021-03-18] MEDS: ATORVASTATIN 20 MG TAB PO SCH (22:20)
[2021-03-18] MEDS: AMITRIPTYLINE HCL 50 MG TAB PO SCH (22:20)
[2021-03-19] MEDS: PIPERACILLIN/TAZOBACTAM 4.5 GM in DEXTROSE 5% 100 ML IV SCH ×2 (00:06→08:24)
[2021-03-19] MEDS: HEPARIN SOD 5,000 UNIT/0.5 ML VIAL SQ SCH ×3 (05:20→21:16)
[2021-03-19] MEDS: oxyCODONE/ACETAMINOPHEN 10-325 TAB PO PRN ×3 (05:25→19:28)
[2021-03-19] MEDS ORDERED: ALBUTEROL HFA 8 GM INHALER INH PRN (07:23)
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
--- NOTE | 2021-03-19 08:21 | Urology Progress Note ---
Date of Service March 19, 2021 Assessment & Plan (1) Neurogenic bladder: (2) Complicated UTI (urinary tract infection): (3) Hydroureteronephrosis: Plan: 60-year-old male with a history of paraplegia and subsequent neurogenic bladder which is managed with a Camp catheter. He also additionally has bilateral hydronephrosis which has been managed with chronic bilateral ureteral stents. He presented with findings concerning for urinary tract infection. Status post cystoscopy, bilateral ureteral stent and Camp catheter exchange on 03/18/2021 White blood cell count slightly elevated this morning, which could be related to recent procedure and instrumentation. Afebrile. Nontoxic-appearing. Urine culture was mixed organisms. Not unreasonable to treat based on previous infections. Would be reasonable to transition to Augmentin and Diflucan p.o. Recommend a total of 10 days of treatment for antibiotic in 3 days for antifungal. Urologically stable. Message has been sent to schedule follow-up in 2 months for discussion of standard exchange of ureteral stents which needs to occur around the 3-month period. Urology to follow peripherally Admission and Anticipated Discharge Date Admission Date: March 17, 2021 Subjective Patient seen on rounds this morning. No acute issues overnight. Remains hemodynamically stable. White blood cell count was slightly up from 12.3-15.6 today. Creatinine pending. Urine culture grew out mixed yessi. Blood cultures prelim negative. Camp catheter draining without issue. Review of Systems Review of Systems: 14 point review of systems negative outside of what is listed above in HPI Physical Exam Physical Exam: General: Alert and oriented, no acute distress HEENT: Normocephalic, mucous membranes moist Cardiovascular: Regular rate Pulmonary: Nonlabored respirations Abdomen: Nondistended : Camp catheter draining mony urine. Skin: Warm, dry, no rashes noted Results & Data ([facility]) Vital Signs (Past 12 Hours) Vital Signs Temp Pulse Resp BP Pulse Ox 03/19/21 07:21 36.4 C L 84 18 110/70 94 03/18/21 22:51 36.4 C L 83 19 104/69 97 PG Care Time/CCT Total # of Minutes Spent Total Time Spent with Patient: Total time spent is greater than 50% in coordination of care (as documented) at patient's floor/unit and/or counseling patient: Coding Level of Care Code 27789 Subseq Hosp Care Lvl 2 Diagnoses Neurogenic bladder N31.9 Complicated UTI (urinary tract infection) N39.0 Hydroureteronephrosis N13.30
[2021-03-19] MEDS: ASPIRIN 81 MG ECTAB PO SCH (08:29)
[2021-03-19] MEDS: ASCORBIC ACID 500 MG TAB PO SCH ×2 (08:29→21:16)
[2021-03-19] MEDS: SENNA 8.6 MG TAB PO SCH ×2 (08:30→21:16)
[2021-03-19] MEDS: METHENAMINE HIPPURATE 1 GM TAB PO SCH ×2 (08:30→21:16)
[2021-03-19] MEDS: FERROUS SULFATE 325 MG TAB PO SCH (08:30)
[2021-03-19] MEDS: MULTIVITAMIN TAB PO SCH (08:30)
[2021-03-19] MEDS: FLUoxetine HCL 20 MG CAP PO SCH (08:30)
[2021-03-19] MEDS: PANTOprazole 40 MG TAB PO SCH ×2 (08:30→21:16)
[2021-03-19] MEDS: LINACLOTIDE 145 MCG CAPSULE PO SCH (08:30)
[2021-03-19 08:56] LABS: Hematocrit (blood only) 26.8 % (42-52); Hemoglobin 8.6 g/dL (14.0-18.0); Mean Corpuscular Hemoglobin 28.9 pg (25-34); Mean Corpuscular Hgb Conc 32.1 g/dL (32-36); Mean Corpuscular Volume 89.9 fL (80-100); Mean Platelet Volume 8.8 fL (7.4-10.4); Platelet Count 781 K/uL (130-400); RDW Coefficient of Variation 17.5 % (11.5-14.5); RDW Standard Deviation 57.5 fL (36.4-46.3); Red Blood Count 2.98 M/uL (4.7-6.1); White Blood Count 15.66 K/uL (4.8-10.8)
[2021-03-19] MEDS: ACETAMINOPHEN 325 MG TAB PO PRN (09:03)
[2021-03-19 09:28] LABS: Basophils # (auto) 0.19 K/uL (0-0.2); Basophils % (auto) 1.2 %; Eosinophils # (auto) 1.02 K/uL (0-0.5); Eosinophils % (auto) 6.6 %; Immature Granulocytes # (auto) 0.08 K/uL (0.00-0.02); Immature Granulocytes % (auto) 0.5 %; Lymphocytes # (auto) 3.12 K/uL (1.2-3.4); Lymphocytes % (auto) 20.2 %; Monocytes # (auto) 1.39 K/uL (0.11-0.59); Neutrophils # (auto) 9.68 K/uL (1.4-6.5); Neutrophils % (auto) 62.5 %
[2021-03-19 09:44] LABS: BUN Creatinine Ratio 26.8 (10-20); Calcium 7.1 mg/dl (8.5-10.1); Creatinine Clr Calc Pharmacy 143.8 ml/min; Est GFR (African American) 131.2 ml/min; Est GFR (Non-African American) 113.2 ml/min; Magnesium 1.9 mg/dl (1.7-2.4); Phosphorus 2.8 mg/dl (2.5-4.9); Potassium 3.9 mmol/L (3.5-5.1)
[2021-03-19] MEDS: SODIUM CHLORIDE 0.9% 1000ML 1,000 ML IV SCH (10:00)
[2021-03-19] MEDS ORDERED: STAT IV STA (10:03)
[2021-03-19] MEDS ORDERED: CALCIUM GLUCONATE 10% 1,000 MG in DEXTROSE 5% 50 ML IV ONE (10:15)
[2021-03-19 10:24] LABS: Ferritin 184.6 ng/ml (8-388)
[2021-03-19] MEDS: CEFTOLOZANE/TAZOBACTAM 3,000 MG in DEXTROSE 5% 100 ML IV SCH ×2 (10:50→18:58)
[2021-03-19 10:53] LABS: Appearance Urine Turbid (Clear); Bacteria Urine Automated Negative (Negative); Bilirubin Urine Negative (Negative); Blood Urine 3+ (Negative); Color Urine Dark Yellow; Glucose Urine UA Negative (Negative); Ketones Urine Negative (Negative); Leukocyte Esterase Urine 3+ (Negative); Nitrite Urine Positive (Negative); Protein Urine 2+ (Negative); Specific Gravity Urine 1.019 (1.000-1.030); Urobilinogen Urine Negative (Negative); WBC Urine Automated >30 /hpf (0-5); pH Urine 5.5 (4.5-7.5)
[2021-03-19 11:06] LABS: RBC Urine Automated >30 /hpf (0-4)
[2021-03-19] MEDS ORDERED: IRON SUCROSE 200 MG in 0.9 % SODIUM CHLORIDE 100 ML IV ONE (12:00)
--- NOTE | 2021-03-19 16:44 | CT Scan Report ---
CT head/brain wo con CLINICAL HISTORY: dysarthria, poor coordination COMPARISON STUDY: 09/06/2015 CT DOSE: 537.48 mGy.cm TECHNIQUE: Standard CT of the Brain was performed without IV contrast. A dose lowering technique was utilized adhering to the principles of ALARA. FINDINGS: Extraaxial space: There is no evidence for subdural hematoma. There are no extra-axial fluid collecti ons. Ventricles and cisterns: The ventricles are mildly dilated bilaterally. There is no evidence for mid line shift or mass effect. Parenchyma: There is no subarachnoid or intraparenchymal hemorrhage. There is no evidence for an acu te infarct or cerebral edema. There is again mild cerebral cortical atrophy and decreased attenuation in the periventricular white matter representing remote small vessel disease. There are no gross mas s lesions. Osseous structures: There is no evidence for an acute fracture. The visualized paranasal sinuses are clear. The mastoid air cells are clear bilaterally. Soft tissues: There is no evidence for focal soft tissue swelling. IMPRESSION: No acute intracerebral pathology. Mild cerebral cortical atrophy and remote small vessel disease. ACT 112: Negative or not required by law. Electronically signed by: Kimani Barba M.D. 03/19/2021 4:43 PM
[2021-03-19] MEDS: ATORVASTATIN 20 MG TAB PO SCH (22:54)
[2021-03-19] MEDS: ZOLPIDEM TARTRATE 10 MG TAB PO PRN (22:54)
[2021-03-19] MEDS: AMITRIPTYLINE HCL 50 MG TAB PO SCH (22:54)
[2021-03-20] MEDS: SODIUM CHLORIDE 0.9% 1000ML 1,000 ML IV SCH (01:36)
[2021-03-20] MEDS: CEFTOLOZANE/TAZOBACTAM 3,000 MG in DEXTROSE 5% 100 ML IV SCH ×3 (02:09→18:33)
[2021-03-20] MEDS: oxyCODONE/ACETAMINOPHEN 10-325 TAB PO PRN ×4 (03:09→23:54)
[2021-03-20] MEDS: HEPARIN SOD 5,000 UNIT/0.5 ML VIAL SQ SCH ×3 (06:22→21:51)
[2021-03-20 06:57] LABS: Hematocrit (blood only) 27.8 % (42-52); Hemoglobin 8.8 g/dL (14.0-18.0); Mean Corpuscular Hemoglobin 28.7 pg (25-34); Mean Corpuscular Hgb Conc 31.7 g/dL (32-36); Mean Corpuscular Volume 90.6 fL (80-100); Mean Platelet Volume 8.7 fL (7.4-10.4); Platelet Count 830 K/uL (130-400); RDW Coefficient of Variation 17.6 % (11.5-14.5); RDW Standard Deviation 58.1 fL (36.4-46.3); Red Blood Count 3.07 M/uL (4.7-6.1); White Blood Count 12.49 K/uL (4.8-10.8)
[2021-03-20 07:07] LABS: Estimated Average Glucose 97 mg/dl
[2021-03-20 07:15] LABS: BUN Creatinine Ratio 18.3 (10-20); Calcium 7.4 mg/dl (8.5-10.1); Creatinine Clr Calc Pharmacy 134.3 ml/min; Est GFR (African American) 127.6 ml/min; Est GFR (Non-African American) 110.1 ml/min; Magnesium 1.8 mg/dl (1.7-2.4); Potassium 3.6 mmol/L (3.5-5.1)
[2021-03-20] MEDS ORDERED: PERFLUTREN LIPID MICROSPHERE (DEFINITY) IV ONE (07:25)
[2021-03-20] MEDS: ACETAMINOPHEN 325 MG TAB PO PRN (07:41)
--- NOTE | 2021-03-20 08:23 | XCELERA ---
[id number]
[2021-03-20] MEDS: PANTOprazole 40 MG TAB PO SCH ×2 (08:24→20:11)
[2021-03-20] MEDS: ASPIRIN 81 MG ECTAB PO SCH (08:24)
[2021-03-20] MEDS: FLUoxetine HCL 20 MG CAP PO SCH (08:24)
[2021-03-20] MEDS: METHENAMINE HIPPURATE 1 GM TAB PO SCH ×2 (08:24→20:11)
[2021-03-20] MEDS: FERROUS SULFATE 325 MG TAB PO SCH (08:24)
[2021-03-20] MEDS: SENNA 8.6 MG TAB PO SCH ×2 (08:24→20:10)
[2021-03-20] MEDS: ASCORBIC ACID 500 MG TAB PO SCH ×2 (08:24→20:11)
[2021-03-20] MEDS: MULTIVITAMIN TAB PO SCH (08:24)
[2021-03-20] MEDS: LINACLOTIDE 145 MCG CAPSULE PO SCH (08:24)
--- NOTE | 2021-03-20 08:53 | Urology Progress Note ---
Date of Service March 20, 2021 Assessment & Plan (1) Neurogenic bladder: (2) Complicated UTI (urinary tract infection): (3) Hydroureteronephrosis: Plan: 60-year-old male with a history of paraplegia and subsequent neurogenic bladder which is managed with a Camp catheter. He also additionally has bilateral hydronephrosis which has been managed with chronic bilateral ureteral stents. He presented with findings concerning for urinary tract infection. Afebrile with stable vitals. Urine culture grew mixed yessi however 1 out of 2 blood cultures positive for gram-positive bacilli. Primary team is discussing ID consult yesterday and agree with that. Agree with broad-spectrum antibiotics Maintain Camp catheter to drainage No further urologic needs at this period. Message has been sent to see in clinic in 2 months to discuss regular scheduled stent exchange. Urology to sign off. Admission and Anticipated Discharge Date Admission Date: March 17, 2021 Subjective Afebrile with stable vitals. Denies any complaints. White blood cell count down from 15.6-12.4. Creatinine stable at 0.6. Blood cultures returned positive for 1 out of 2 with gram-positive bacilli. Primary team was likely going to consult ID today. Camp catheter draining without issue. Review of Systems Review of Systems: 14 point review of systems negative outside of what is listed above in HPI Physical Exam Physical Exam: General: Alert and oriented, no acute distress HEENT: Normocephalic, mucous membranes moist Cardiovascular: Regular rate Pulmonary: Nonlabored respirations Abdomen: Nondistended : Camp cath draining mony urine. Skin: Warm, dry, no rashes noted Results & Data ([facility]) Vital Signs (Past 12 Hours) Vital Signs Temp Pulse Resp BP Pulse Ox 03/20/21 08:43 36.5 C 80 16 134/83 94 03/19/21 21:50 37.0 C 63 16 142/86 H 94 PG Care Time/CCT Total # of Minutes Spent Total Time Spent with Patient: Total time spent is greater than 50% in coordination of care (as documented) at patient's floor/unit and/or counseling patient: Coding Level of Care Code 41235 Subseq Hosp Care Lvl 2 Diagnoses Neurogenic bladder N31.9 Complicated UTI (urinary tract infection) N39.0 Hydroureteronephrosis N13.30
--- NOTE | 2021-03-20 16:56 | Magnetic Resonance Report ---
MRI OF THE BRAIN WITHOUT CONTRAST CLINICAL HISTORY: Poor Coordination; Word Finding COMPARISON STUDY: MRI of the brain March 29, 2020. Head CT March 19, 2021. TECHNIQUE: Utilizing a 1.5 Carly magnet and dedicated coil, multiplanar, multiecho imaging of the bra in was performed without IV contrast. FINDINGS: There are no foci of restricted diffusion to suggest acute infarct. No acute intracranial h emorrhage, midline shift or mass effect is present. Moderate atrophy is noted. White matter T2 hyperi ntense foci have mildly progressed since previous MRI. Ventricular system is unremarkable. Basal cist erns are patent. There are no extra-axial collections. Flow-voids for the major intracranial vessels are present. No intracranial masses identified on this unenhanced examination. Calvarial signal is wi thin normal limits. There is no evidence for sinusitis. There is no mastoid fluid. IMPRESSION: 1. No acute intracranial findings. 2. Moderate atrophy. 3. White matter T2 hyperintense foci which have mildly progressed since MRI of March 29, 2020. Alth ough nonspecific, these favor small vessel disease. ACT 112: Negative or not required by law. Electronically signed by: Omar Fisher M.D. 03/20/2021 4:55 PM
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
[2021-03-20] MEDS: ATORVASTATIN 20 MG TAB PO SCH (23:27)
[2021-03-20] MEDS: AMITRIPTYLINE HCL 50 MG TAB PO SCH (23:27)
[2021-03-20] MEDS: ZOLPIDEM TARTRATE 10 MG TAB PO PRN (23:54)
[2021-03-21] MEDS: CEFTOLOZANE/TAZOBACTAM 3,000 MG in DEXTROSE 5% 100 ML IV SCH ×3 (02:12→18:27)
[2021-03-21] MEDS: HEPARIN SOD 5,000 UNIT/0.5 ML VIAL SQ SCH ×3 (05:19→22:48)
[2021-03-21] MEDS: oxyCODONE/ACETAMINOPHEN 10-325 TAB PO PRN ×3 (06:37→22:47)
[2021-03-21 07:05] LABS: Hematocrit (blood only) 28.2 % (42-52); Hemoglobin 9.1 g/dL (14.0-18.0); Mean Corpuscular Hgb Conc 32.3 g/dL (32-36); Mean Corpuscular Volume 89.8 fL (80-100); Mean Platelet Volume 8.5 fL (7.4-10.4); Nucleated RBC # (auto) 0.05 K/uL (0-0); Nucleated RBC % (auto) 0.4 %; Platelet Count 848 K/uL (130-400); RDW Coefficient of Variation 17.6 % (11.5-14.5); RDW Standard Deviation 56.8 fL (36.4-46.3); Red Blood Count 3.14 M/uL (4.7-6.1); White Blood Count 11.89 K/uL (4.8-10.8)
[2021-03-21 07:31] LABS: BUN Creatinine Ratio 16.9 (10-20); Calcium 7.6 mg/dl (8.5-10.1); Creatinine Clr Calc Pharmacy 113.5 ml/min; Est GFR (Non-African American) 102.7 ml/min; Magnesium 1.6 mg/dl (1.7-2.4); Potassium 3.4 mmol/L (3.5-5.1)
[2021-03-21] MEDS: LINACLOTIDE 145 MCG CAPSULE PO SCH (09:24)
[2021-03-21] MEDS: FLUoxetine HCL 20 MG CAP PO SCH (09:25)
[2021-03-21] MEDS: ASPIRIN 81 MG ECTAB PO SCH (09:25)
[2021-03-21] MEDS: MULTIVITAMIN TAB PO SCH (09:25)
[2021-03-21] MEDS: ASCORBIC ACID 500 MG TAB PO SCH ×2 (09:26→20:31)
[2021-03-21] MEDS: METHENAMINE HIPPURATE 1 GM TAB PO SCH ×2 (09:26→20:31)
[2021-03-21] MEDS: FERROUS SULFATE 325 MG TAB PO SCH (09:26)
[2021-03-21] MEDS: SENNA 8.6 MG TAB PO SCH ×2 (09:27→20:32)
[2021-03-21] MEDS: PANTOprazole 40 MG TAB PO SCH ×2 (09:27→20:31)
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
[2021-03-22] MEDS: AMITRIPTYLINE HCL 50 MG TAB PO SCH ×2 (00:09→23:09)
[2021-03-22] MEDS: ZOLPIDEM TARTRATE 5 MG TAB PO PRN (00:10)
[2021-03-22] MEDS: ATORVASTATIN 20 MG TAB PO SCH ×2 (00:10→23:09)
[2021-03-22] MEDS: CEFTOLOZANE/TAZOBACTAM 3,000 MG in DEXTROSE 5% 100 ML IV SCH ×2 (02:06→10:44)
[2021-03-22] MEDS: oxyCODONE/ACETAMINOPHEN 10-325 TAB PO PRN ×4 (05:23→23:07)
[2021-03-22] MEDS: HEPARIN SOD 5,000 UNIT/0.5 ML VIAL SQ SCH ×3 (05:25→23:09)
[2021-03-22 05:51] LABS: Hematocrit (blood only) 28.9 % (42-52); Hemoglobin 9.2 g/dL (14.0-18.0); Mean Corpuscular Hemoglobin 28.8 pg (25-34); Mean Corpuscular Hgb Conc 31.8 g/dL (32-36); Mean Corpuscular Volume 90.3 fL (80-100); Mean Platelet Volume 8.5 fL (7.4-10.4); Nucleated RBC # (auto) 0.05 K/uL (0-0); Nucleated RBC % (auto) 0.4 %; Platelet Count 875 K/uL (130-400); RDW Coefficient of Variation 17.4 % (11.5-14.5); RDW Standard Deviation 56.8 fL (36.4-46.3); White Blood Count 13.31 K/uL (4.8-10.8)
[2021-03-22 06:50] LABS: Albumin Globulin Ratio 0.5 (0.9-2); Albumin Level 1.9 gm/dl (3.4-5.0); BUN Creatinine Ratio 15.7 (10-20); Bilirubin,Total 0.2 mg/dl (0.2-1.0); Calcium 7.6 mg/dl (8.5-10.1); Est GFR (African American) 111.6 ml/min; Est GFR (Non-African American) 96.3 ml/min; Globulin 4.1 gm/dl (2.5-4.0); Potassium 3.7 mmol/L (3.5-5.1)
[2021-03-22] MEDS: MULTIVITAMIN TAB PO SCH (09:03)
[2021-03-22] MEDS: METHENAMINE HIPPURATE 1 GM TAB PO SCH ×2 (09:03→19:56)
[2021-03-22] MEDS: FLUoxetine HCL 20 MG CAP PO SCH (09:03)
[2021-03-22] MEDS: FERROUS SULFATE 325 MG TAB PO SCH (09:03)
[2021-03-22] MEDS: ASPIRIN 81 MG ECTAB PO SCH (09:03)
[2021-03-22] MEDS: ASCORBIC ACID 500 MG TAB PO SCH ×2 (09:03→19:55)
[2021-03-22] MEDS: PANTOprazole 40 MG TAB PO SCH ×2 (09:03→19:56)
[2021-03-22] MEDS: SENNA 8.6 MG TAB PO SCH ×2 (09:03→19:57)
[2021-03-22] MEDS: LINACLOTIDE 145 MCG CAPSULE PO SCH (09:03)
[2021-03-22] MEDS: levoFLOXacin 750 MG TAB PO SCH (17:25)
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
[2021-03-23] MEDS: ZOLPIDEM TARTRATE 5 MG TAB PO PRN ×2 (03:41→22:48)
[2021-03-23] MEDS: HEPARIN SOD 5,000 UNIT/0.5 ML VIAL SQ SCH ×3 (05:23→22:47)
[2021-03-23] MEDS: oxyCODONE/ACETAMINOPHEN 10-325 TAB PO PRN ×3 (05:28→17:38)
[2021-03-23] MEDS: FLUoxetine HCL 20 MG CAP PO SCH (08:16)
[2021-03-23] MEDS: SENNA 8.6 MG TAB PO SCH ×2 (08:16→20:37)
[2021-03-23] MEDS: PANTOprazole 40 MG TAB PO SCH ×2 (08:16→20:37)
[2021-03-23] MEDS: ASCORBIC ACID 500 MG TAB PO SCH ×2 (08:16→20:36)
[2021-03-23] MEDS: METHENAMINE HIPPURATE 1 GM TAB PO SCH ×2 (08:16→20:36)
[2021-03-23] MEDS: ASPIRIN 81 MG ECTAB PO SCH (08:16)
[2021-03-23] MEDS: MULTIVITAMIN TAB PO SCH (08:16)
[2021-03-23] MEDS: LINACLOTIDE 145 MCG CAPSULE PO SCH (08:16)
[2021-03-23] MEDS: FERROUS SULFATE 325 MG TAB PO SCH (08:16)
[2021-03-23] MEDS: levoFLOXacin 750 MG TAB PO SCH (11:46)
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
[2021-03-23] MEDS: AMITRIPTYLINE HCL 50 MG TAB PO SCH (23:14)
[2021-03-23] MEDS: ATORVASTATIN 20 MG TAB PO SCH (23:14)
[2021-03-24] MEDS: oxyCODONE/ACETAMINOPHEN 10-325 TAB PO PRN ×3 (01:58→14:26)
[2021-03-24] MEDS: HEPARIN SOD 5,000 UNIT/0.5 ML VIAL SQ SCH (05:43)
[2021-03-24] MEDS: ASPIRIN 81 MG ECTAB PO SCH (08:43)
[2021-03-24] MEDS: ASCORBIC ACID 500 MG TAB PO SCH (08:43)
[2021-03-24] MEDS: METHENAMINE HIPPURATE 1 GM TAB PO SCH (08:44)
[2021-03-24] MEDS: FLUoxetine HCL 20 MG CAP PO SCH (08:44)
[2021-03-24] MEDS: MULTIVITAMIN TAB PO SCH (08:44)
[2021-03-24] MEDS: SENNA 8.6 MG TAB PO SCH (08:44)
[2021-03-24] MEDS: PANTOprazole 40 MG TAB PO SCH (08:44)
[2021-03-24] MEDS: LINACLOTIDE 145 MCG CAPSULE PO SCH (08:44)
[2021-03-24] MEDS: FERROUS SULFATE 325 MG TAB PO SCH (08:44)
[2021-03-24] MEDS: levoFLOXacin 750 MG TAB PO SCH (10:42)
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
== END 2021-03-24 14:34 | disposition home health service (06) | DRG 659 ==
LOC: ED 05:29 → SUATTDRO 08:07 → EDINP 08:07 → 3N 16:23

== ENCOUNTER 2021-11-09 18:18 | Inpatient (IN) ==
[2021-11-09] MEDS ORDERED: SODIUM CHLORIDE 0.9% 1000ML 1,000 ML IV ONE ×3 (18:26→23:47)
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
[2021-11-09 19:12] LABS: Basophils # (auto) 0.07 K/uL (0-0.2); Basophils % (auto) 0.5 %; Eosinophils # (auto) 0.08 K/uL (0-0.50); Eosinophils % (auto) 0.6 %; Hematocrit (blood only) 35.5 % (40.1-51.0); Hemoglobin 11.3 g/dl (14.0-18.0); Immature Granulocytes # (auto) 0.05 K/uL (0.00-0.02); Immature Granulocytes % (auto) 0.3 %; Lymphocytes # (auto) 1.19 K/uL (1.2-3.4); Lymphocytes % (auto) 8.3 %; Mean Corpuscular Hemoglobin 28.7 pg (25.0-34.0); Mean Corpuscular Hgb Conc 31.8 g/dL (32.0-36.0); Mean Corpuscular Volume 90.1 fL (80.0-100.0); Mean Platelet Volume 8.4 fL (9.4-12.4); Monocytes # (auto) 0.46 K/uL (0.24-0.82); Monocytes % (auto) 3.2 %; Neutrophils # (auto) 12.49 K/uL (1.4-6.5); Neutrophils % (auto) 87.1 %; Platelet Count 772 K/uL (130-400); RDW Coefficient of Variation 16.2 % (11.5-14.5); RDW Standard Deviation 53.7 fL (36.4-46.3); Red Blood Count 3.94 M/uL (4.63-6.08); White Blood Count 14.34 K/ul (4.8-10.8)
[2021-11-09 19:15] LABS: Base Excess VBG 3.4 mEq/L; HCO3 VBG 29 mmol/L; Oxygen Saturation VBG < 60.0 %; PCO2 VBG 44 mmHg (38-50); PO2 VBG 27 mmHg; pH VBG 7.42 (7.36-7.41)
[2021-11-09 19:35] LABS: Alanine Aminotransferase 21 U/L (7-52); Albumin Globulin Ratio 0.5 (0.9-2); Albumin Level 2.2 gm/dl (3.4-5.0); Alkaline Phosphatase 219 U/L (34-104); Anion Gap 7 (3-11); Aspartate Aminotransferase 21 U/L (13-39); BUN Creatinine Ratio 21.3 (10-20); Bilirubin,Total 0.4 mg/dl (0.2-1.0); Blood Urea Nitrogen 17 mg/dl (6-23); Carbon Dioxide 24 mmol/L (21-32); Chloride 107 mmol/L (98-107); Est GFR (African American) 112.5 ml/min; Est GFR (Non-African American) 97.1 ml/min; Globulin 4.2 gm/dl (2.5-4.0); Glucose 109 mg/dl (70-99(Fasting)); Magnesium 1.9 mg/dl (1.7-2.4); Sodium 138 mmol/L (136-145); Total Protein 6.4 gm/dl (6.0-8.3)
[2021-11-09 19:44] LABS: Partial Thromboplastin Ratio 1.2; Partial Thromboplastin Time 32.4 Seconds (21.0-31.0); Prothrombin Time 10.9 Seconds (9.0-12.0)
[2021-11-09] MEDS ORDERED: PIPERACILLIN/TAZOBACTAM 4.5 GM/120 ML BAG IV ONE (20:04)
--- NOTE | 2021-11-09 20:22 | CT Scan Report ---
CT head/brain wo con CLINICAL HISTORY: ams Technique: Contiguous axial CT images of the head were acquired from the base of the skull to the magdaleno melvin without intravenous contrast administration. Images were viewed in brain, subdural and bone [facility]. Automated dose lowering techniques and/or adjustment according to patient size were utilized for this exam. Comparison: Comparison is made to CT head 01/17/2022 Findings: Areas of decreased attenuation are present in the periventricular and subcortical white matter bilate rally consistent with small vessel ischemic disease. Generalized cerebral atrophy with commensurate e nlargement of the ventricles, sulci, and cisterns is also present. There is no acute intracranial hem orrhage or evidence of acute territorial infarction. No shift of the midline structures, mass effect, or extra-axial abnormalities are shown. Atherosclerotic calcifications are present in the intracran ial segments of the internal carotid arteries. Calcifications of the falx are seen. Imaged portions of the paranasal sinuses and mastoid air cells are clear. The orbits appear normal. There are no acute fractures of the calvaria or scalp swelling. Impression: No acute intracranial hemorrhage, no evidence of acute territorial infarction or other acute intracra nial disease process. ACT 112: Negative or not required by law. Electronically signed by: Colt Johnson M.D. 11/09/2021 8:21 PM
[2021-11-09 20:33] LABS: Appearance Urine Turbid (Clear); Bacteria Urine Automated 4+ (Negative); Bilirubin Urine Negative (Negative); Blood Urine 3+ (Negative); Color Urine Orange; Epithelial Cell Urine Auto >30 /lpf (0-5); Glucose Urine UA Negative (Negative); Ketones Urine Negative (Negative); Leukocyte Esterase Urine 3+ (Negative); Nitrite Urine Negative (Negative); RBC Urine Automated >30 /hpf (0-4); Specific Gravity Urine 1.017 (1.000-1.030); Urobilinogen Urine Negative (Negative); WBC Urine Automated >30 /hpf (0-5)
--- NOTE | 2021-11-09 20:37 | CT Scan Report ---
CT abd pelvis wo con CLINICAL HISTORY: ams TECHNIQUE: Helical axial images of the abdomen and pelvis were obtained. Automated dose lowering tech niques and/or adjustment according to patient size were utilized for this exam. This exam was perfor med without intravenous contrast. CT DOSE: 485.07 mGy.cm COMPARISON: Comparison is made to CT abdomen pelvis 01/21/2021 FINDINGS: Lower chest: No acute abnormality Liver: Unremarkable. No focal lesions are seen. Gallbladder and biliary tree: Patient is status post cholecystectomy. No intra- or extrahepatic bilia ry ductal dilation. Pancreas: Fatty replacement of the pancreas is seen. Spleen: The spleen is diminutive. Adrenals: Unremarkable. Kidneys and ureters: Bilateral hydronephrosis is seen. A nephroureteral stent is seen in the right. A left nephroureteral stent is noted with the proximal component of the mid ureter rather than the homa al pelvis. Bladder: Camp catheter is seen. Reproductive organs: Prostatic calcifications are seen which may represent prior hemorrhage or granul omatous disease. Bowel: Marked rectal thickening is seen with a large stool ball in the rectum. Solid and liquid valerie nts are noted in the sigmoid colon with thickening of the wall. Patient is status post appendectomy. There is a moderate hiatal hernia with postsurgical changes noted about the stomach. Lymph nodes Retroperitoneal: Unremarkable. Pelvic: Unremarkable. Mesenteric: Unremarkable. Peritoneum: No evidence of pneumoperitoneum. Vessels: Atherosclerotic calcifications are seen. Abdominal wall: Unremarkable. Bones: Degenerative changes in the visualized spine. Posterior fixation hardware is partially seen in the thoracic spine. IMPRESSION: 1. Interval increase in thickness of the rectal and sigmoid colonic wall, compatible with proctocoli tis, possibly stercoral colitis in this patient with a large stool burden. 2. Interval displacement of the left nephroureteral stent, the proximal component now is in the mid ureter. Bilateral hydronephrosis/hydroureter is noted. ACT 112: Negative or not required by law. Electronically signed by: Colt Johnson M.D. 11/09/2021 8:35 PM
[2021-11-09 20:46] LABS: Protein Urine 3+ (Negative)
[2021-11-09 21:13] LABS: Cast Urine Automated 0 /lpf (0-5); Triple Phosphate Crystal Urine Present (None Prsent)
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
[2021-11-10] MEDS ORDERED: POLYETHYLENE (MIRALAX) 17 GM PACK PO PRN (00:53)
[2021-11-10] MEDS ORDERED: bisacodyL 10 MG SUPP PR PRN (00:53)
[2021-11-10] MEDS ORDERED: PIPERACILLIN/TAZOBACTAM 4.5 GM in DEXTROSE 5% 100 ML IV SCH (00:53)
[2021-11-10] MEDS ORDERED: ONDANSETRON INJ 2 MG/ML 2 ML VIAL IV PRN ×2 (00:53→08:51)
[2021-11-10] MEDS ORDERED: VANCOMYCIN CONSULT ACTIVE PRN (01:06)
[2021-11-10] MEDS ORDERED: VANCOMYCIN HCL 1,000 MG in SODIUM CHLORIDE 0.9% 250 ML IV SCH ×2 (01:15→09:00)
[2021-11-10] MEDS ORDERED: Patient's HEIGHT &/or WEIGHT Needed SCH (01:15)
[2021-11-10] MEDS: LACTATED RINGER'S 1,000 ML IV SCH ×2 (01:34→12:00)
[2021-11-10] MEDS ORDERED: VANCOMYCIN HCL 1,250 MG in SODIUM CHLORIDE 0.9% 250 ML IV ONE (02:00)
[2021-11-10] MEDS: AMITRIPTYLINE HCL 50 MG TAB PO SCH ×2 (02:26→23:55)
[2021-11-10] MEDS: CEFTOLOZANE/TAZOBACTAM 1,500 MG in DEXTROSE 5% 100 ML IV SCH ×3 (02:27→17:18)
[2021-11-10 07:39] LABS: Hematocrit (blood only) 27.9 % (40.1-51.0); Hemoglobin 9.2 g/dl (14.0-18.0); Mean Corpuscular Hemoglobin 29.1 pg (25.0-34.0); Mean Corpuscular Volume 88.3 fL (80.0-100.0); Mean Platelet Volume 8.7 fL (9.4-12.4); Platelet Count 653 K/uL (130-400); RDW Coefficient of Variation 15.9 % (11.5-14.5); RDW Standard Deviation 51.1 fL (36.4-46.3); Red Blood Count 3.16 M/uL (4.63-6.08); White Blood Count 13.27 K/ul (4.8-10.8)
--- NOTE | 2021-11-10 08:06 | Urology Progress Note ---
Date of Service November 10, 2021 Assessment & Plan (1) Complicated UTI (urinary tract infection): (2) Displacement of indwelling ureteral stent: Plan 60yo M with a hx of neurogenic bladder managed with chronic Camp catheter and b/l hydro managed with chronic bilateral ureteral stents admitted with altered mental status, suspected UTI, displaced left ureteral stent. - Last ureteral stent exchange noted to be 03/18/21. - Will plan to proceed to the OR today for cystoscopy, bilateral ureteral stent exchange. - Risks and benefits to be reviewed with patient by Dr. Mcintosh. OR notified. Covid test negative. Covered with scheduled IV Ceftolozan/Tazobactam and Vanco. - Keep NPO. - Continue supportive care and antibiotic therapy. - Urology will follow. Admission and Anticipated Discharge Date Admission Date: November 09, 2021 Supervising Physician Co-Signing Physician Notes Agree with above Plan for cystoscopy and bilateral stent exchange today secondary to displaced left ureteral stent and longstanding stents Risks, benefits, expectations reviewed with the patient Subjective Patient examined at bedside this AM. Asleep on arrival, awakened to name. No acute distress. Denies any pain or discomfort at present. Camp catheter was exchanged on arrival in the ED yesterday. Currently intact, draining cloudy yellow urine. No fevers. Has been NPO. Afebrile and hemodynamically stable. Review of Systems Constitutional: as per Subjective / HPI Genitourinary: + as per Subjective / HPI Physical Exam Constitutional: cooperative; no acute distress Respiratory: no respiratory distress and no labored breathing Neurologic: awake Psychiatric: Orientation: alert, oriented to person and oriented to place Genitourinary: Camp catheter intact Results & Data ([facility]) Vital Signs (Past 12 Hours) Vital Signs Temp Pulse Pulse Resp BP BP BP 11/10/21 07:17 37 C 92 H 16 136/85 11/10/21 01:00 11/10/21 01:03 36.8 C 18 157/79 H 11/10/21 00:30 88 16 122/87 11/10/21 00:00 92 H 21 124/84 11/09/21 23:00 93 H 19 114/65 11/09/21 22:41 97 H 25 H 110/74 11/09/21 22:14 97 H 17 105/72 11/09/21 20:55 101 H 21 109/79 11/09/21 20:30 104 H 26 H 123/98 11/09/21 21:05 Pulse Ox O2 Del Method O2 Flow Rate 11/10/21 07:17 99 Nasal Cannula 2 11/10/21 01:00 Nasal Cannula 2 11/10/21 01:03 99 Nasal Cannula 2 11/10/21 00:30 100 Nasal Cannula 2 11/10/21 00:00 99 2 11/09/21 23:00 97 Room Air 11/09/21 22:41 99 Room Air 11/09/21 22:14 97 Room Air 11/09/21 20:55 98 2 11/09/21 20:30 97 Room Air 11/09/21 21:05 99 Nasal Cannula 2 PG Care Time/CCT Total # of Minutes Spent Total Time Spent with Patient: Total time spent is greater than 50% in coordination of care (as documented) at patient's floor/unit and/or counseling patient: Coding Level of Care Code 92387 Subseq Hosp Care Lvl 2 Diagnoses Complicated UTI (urinary tract infection) N39.0 Displacement of indwelling ureteral stent T83.122A Encounter type: initial encounter (1) Displacement of indwelling ureteral stent Encounter type: initial encounter Qualified Code(s): T83.122A - Displacement of indwelling ureteral stent, initial encounter
--- NOTE | 2021-11-10 08:08 | XRay Report ---
XR chest 1V portable CLINICAL HISTORY: SEPSIS COMPARISON STUDY: Chest radiograph March 18, 2021. Chest CT January 24, 2021. FINDINGS: Exam is compromised by suboptimal penetration. There are postoperative findings within the spine and right humerus. Lung volumes are normal. Lungs are clear. There is no pneumothorax or pleura l effusion. Cardiac size is normal. Mediastinal contours are normal. There is no evidence for pulmona ry edema. IMPRESSION: No acute cardiopulmonary findings. Exam compromised by suboptimal penetration. ACT 112: Negative or not required by law. Electronically signed by: Omar Fisher M.D. 11/10/2021 8:07 AM
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
[2021-11-10 08:15] LABS: Albumin Level 1.7 gm/dl (3.4-5.0); BUN Creatinine Ratio 20.6 (10-20); Bilirubin Direct 0.1 mg/dl (0-0.2); Bilirubin,Total 0.4 mg/dl (0.2-1.0); Calcium 7.1 mg/dl (8.5-10.1); Creatinine Clr Calc Pharmacy 109.5 ml/min; Est GFR (African American) 120.3 ml/min; Est GFR (Non-African American) 103.8 ml/min; Potassium 3.5 mmol/L (3.5-5.1); Total Protein 4.9 gm/dl (6.0-8.3)
--- NOTE | 2021-11-10 08:34 | Hospitalist Progress Note ---
Date of Service November 10, 2021 Assessment & Plan (1) Sepsis secondary to UTI: Plan: 61-year-old male with T4 paraplegia, indwelling Garrison, GERD, hypertension, hyperlipidemia, asplenia presents with diffuse weakness, confusion, diarrhea and concern for sepsis. UTI with sepsis due to indwelling garrison catheter Lactic 2.6--> 3.3--> 1.7 WBC 14--> 13k, afebrile Procal 19.77 -- suspect blood cultures will also be positive (prior +bacteremia with proteus/klebsiella January 2021 which was pansensitive) Imaging obtained with CTAP showing 1. Interval increase in thickness of the rectal and sigmoid colonic wall, compatible with proctocolitis, possibly stercoral colitis in this patient with a large stool burden. 2. Interval displacement of the left nephroureteral stent, the proximal component now is in the mid ureter. Bilateral hydronephrosis/hydroureter is noted. Urology consulted p Cystoscopy, Bilateral Stent Exchange(Bilateral) - Martin Mirza MD 11/10 irrigated small blood from bladder. stent entirely encrusted on the left Ceftolozane/Tazobactam and Vancomycin for abx for now Monitor urine/blood cultures -- pending IVF LR @ 125cc/hr --> will decrease to 75cc/hr to complete 2 L, dehydrated on exam Pain control, antiemetics prn Diet following surgery --> maintain fall/aspiration precautions Bowel regimen --> lactulose, titrate to BM 2-3/daily -will also order fleets enema (sucussfull prior admit) -Check PCR given reports of diarrhea however always constipated (fecal disimpaction in ER and possible stercoral proctitis based on CTAP) and chronic abx use PT/OT consulted for tomorrow, may need additional caregivers/HH at home Appears more alert/oriented today after disimpaction/abx and stent exchange frequent orientation (2) AMS (altered mental status): Plan: Confusion multifactorial with fecal impaction, UTI (hx MDR), hyperammonemia 141 CT head negative on admission Tx outlined above for UTI/fecal impaction Appears improved on exam (similar to prior encounters, does have trouble w/ memory) (3) Displacement of indwelling ureteral stent: Plan: Patient with chronic bilateral hydronephrosis with ureteral stents in place. He follows with urology. CT of the abdomen today revealed interval displacement of the left nephroureteral stent, the proximal component now is in the mid ureter. Also with bilateral hydronephrosis/hydroureter. UA with 4+ bacteria. Urology consulted s/p stent exchange today, monitor urine cx and continue abx as outlined (4) UTI (urinary tract infection): Plan: Patient noted to have dark, foul-smelling urine upon arrival. UA is difficult to interpret however suggestive of infection. Garrison catheter was exchanged in the ER Patient with prior Enterococcus UTI as well as Pseudomonas and Cinda. Pseudomonas in the past has been multidrug-resistant. St cath obtained --> gram negative bacilli on preliminary Continue Ceftolozane and Tazobactam for Pseudomonal treatment (based on urine culture sensitivities from 09/26/20) -Continue Vancomycin for Enterococcus coverage (based on urine culture sensitivities from 01/21/21) Consider ID consultation based on cultures (5) Fecal impaction: Plan: s/p disimpaction performed in the ER with removal of a large stool ball. -IVF and electrolyte repletion -- see above -Continue Linzess 145mcg po daily, Senna 25.8mg po BID, Dulcolax TN daily PRN, miralax prn +liquid BM after admit reported after disimpaction fleets successful in past --> will order x 1 Continue Lactulose QID - titrate to 2-3 soft BMs daily Monitor BMs (6) Acute hepatic encephalopathy: Plan: Patient with hyperammonemia, US6=[id number]. No known hepatic disease. Normal liver morphology on CT. Possibly secondary to infection? stool burden/constipation? ?blood dyscrasia? Patient has had persistent leukocytosis with WBC ranging 11 - 24 (most likely secondary to asplenia). He had a peripheral smear in 2019 which revealed no significant morphologic abnormalities. Non-specific leukocytosis and normochromic/normocytic anemia. --> ALP always elevated, ?GI source vs bone in patient with paraplegia ALP 219--> 158 elevated since 2018 or greater patient is s/p cholecystectomy, no ductal dilation on imaging -Repeat LFTs in AM -Lactulose QID - titrate to 2-3 soft BMs daily (7) Depression: Plan: Chronic -Continue Fluoxetine 40mg po daily -Continue Elavil 50mg po daily (8) Hyperlipidemia: Plan: Chronic. On medication. -Continue Atorvastatin daily (9) Asplenia: Plan: Noted (10) GERD (gastroesophageal reflux disease): Plan: Chronic -Protonix 40mg IV daily, can convert to PO for AM (11) Sepsis: Plan: as outlined above, suspect 2nd to UTI from chroinc garrison/constipation issues at baseline monitor response w/ treatment as outlined (12) Metabolic encephalopathy: Plan: improving Plan continued inpatient stay Admission and Anticipated Discharge Date Admission Date: November 09, 2021 Subjective Evaluated post-op. Underwent cysto and bilateral stent exchange. Currently sitting up in bed eating lunch, no acute distress. On 2L O2 with SpO2 and has a little bit of a dry cough but denies any shortness of breath or chest pain. Missed AM dose cephalosporin, vanco currently hung. May need to restart start time for after dose given given missed dose. Will monitor cultures from urine/de-escalate abx as able. Garrison with blood drainage with sediment in the tubing, will monitor. Also need to be working on a bowel regimen as prior stent placement difficult due to constipation and as discussed with Urology, suspect a lot of urinary retention issues/UTIs related to constipation at home. He notes he was to have a ADL exam with PCP and failed miserably. Currently without HH at home, CM in room inquiring and to assist based on course with additional help as he states he believes his could use it as it's just her. Questions/concerns addressed. Review of Systems Review of Systems: All systems reviewed & are unremarkable except as noted in HPI & below Physical Exam Physical Exam: General: disheveled male sitting up in bed eating lunch, NAD HEENT; pupils equal and reactive, mm dry, trachea midline, poor dentition Resp: ctab, diminished in the bases, no w/c, 100% on 2L CV: regular rhythm, rate 102bpm, no m/r/g, calves nontender GI: +BS, softer, nontender : garrison with bloody drainage and darkened sediment in tubing MSK/Neuro: paraplegia T4 at baseline, awake and alert to person/place, slow with answering but reports chronic issue Skin: cool, dry Results & Data Results & Data ([facility]) Vital Signs (Past 12 Hours) Vital Signs Temp Pulse Pulse Resp BP BP BP 11/10/21 08:08 37.1 C 97 H 20 145/98 H 11/10/21 07:17 37 C 92 H 16 136/85 11/10/21 01:00 11/10/21 01:03 36.8 C 18 157/79 H 11/10/21 00:30 88 16 122/87 11/10/21 00:00 92 H 21 124/84 11/09/21 23:00 93 H 19 114/65 11/09/21 22:41 97 H 25 H 110/74 11/09/21 22:14 97 H 17 105/72 11/09/21 20:55 101 H 21 109/79 11/09/21 21:05 Pulse Ox O2 Del Method O2 Flow Rate 11/10/21 08:08 100 Nasal Cannula 3 11/10/21 07:17 99 Nasal Cannula 2 11/10/21 01:00 Nasal Cannula 2 11/10/21 01:03 99 Nasal Cannula 2 11/10/21 00:30 100 Nasal Cannula 2 11/10/21 00:00 99 2 11/09/21 23:00 97 Room Air 11/09/21 22:41 99 Room Air 11/09/21 22:14 97 Room Air 11/09/21 20:55 98 2 11/09/21 21:05 99 Nasal Cannula 2 Laboratory Results 11/10/21 11/10/21 11/10/21 Range/Units 07:01 07:01 01:19 WBC 13.27 H (4.8-10.8) K/ul RBC 3.16 L (4.63-6.08) M/uL Hgb 9.2 L (14.0-18.0) g/dl Hct 27.9 L (40.1-51.0) % MCV 88.3 (80.0-100.0) fL MCH 29.1 (25.0-34.0) pg MCHC 33.0 (32.0-36.0) g/dL RDW Std Deviation 51.1 H (36.4-46.3) fL RDW Coeff of Jigna 15.9 H (11.5-14.5) % Plt Count 653 H (130-400) K/uL MPV 8.7 L (9.4-12.4) fL Immature Gran % (Auto) % Neut % (Auto) % Lymph % (Auto) % [place] % (Auto) % Eos % (Auto) % Baso % (Auto) % Neut # (Auto) (1.4-6.5) K/uL Lymph # (Auto) (1.2-3.4) K/uL [place] # (Auto) (0.24-0.82) K/uL Eos # (Auto) (0-0.50) K/uL Baso # (Auto) (0-0.2) K/uL Immature Gran # (Auto) (0.00-0.02) K/uL PT (9.0-12.0) Seconds INR (0.9-1.1) APTT (21.0-31.0) Seconds PTT Ratio VBG pH (7.36-7.41) VBG pCO2 (38-50) mmHg VBG pO2 mmHg VBG HCO3 mmol/L VBG O2 Saturation % VBG Base Excess mEq/L Sodium 140 (136-145) mmol/L Potassium 3.5 (3.5-5.1) mmol/L Chloride 113 H (98-107) mmol/L Carbon Dioxide 23 (21-32) mmol/L Anion Gap 4 (3-11) BUN 14 (6-23) mg/dl Creatinine 0.68 (0.6-1.4) mg/dl Est Cr Clr Drug Dosing 109.5 Est GFR ( Amer) 120.3 ml/min Est GFR (Non-Af Amer) 103.8 ml/min BUN/Creatinine Ratio 20.6 H (10-20) Glucose 79 (70-99(Fasting)) mg/dl Lactate (0.4-2.0) mmol/L Calcium 7.1 L (8.5-10.1) mg/dl Magnesium (1.7-2.4) mg/dl Total Bilirubin 0.4 (0.2-1.0) mg/dl Direct Bilirubin 0.1 (0-0.2) mg/dl AST 16 (13-39) U/L ALT 16 (7-52) U/L Alkaline Phosphatase 158 H (34-104) U/L Ammonia (18-72) umol/L Total Protein 4.9 L D (6.0-8.3) gm/dl Albumin 1.7 L (3.4-5.0) gm/dl Globulin (2.5-4.0) gm/dl Albumin/Globulin Ratio (0.9-2) Procalcitonin 19.77 H (0-0.5) ng/ml Urine Color Urine Appearance (Clear) Urine pH (4.5-7.5) Ur Specific Barton (1.000-1.030) Urine Protein (Negative) Urine Glucose (UA) (Negative) Urine Ketones (Negative) Urine Blood (Negative) Urine Nitrite (Negative) Urine Bilirubin (Negative) Urine Urobilinogen (Negative) Ur Leukocyte Esterase (Negative) Urine WBC (Auto) (0-5) /hpf Urine RBC (Auto) (0-4) /hpf U Hyaline Cast (Auto) (0-5) /lpf U Epithel Cells (Auto) (0-5) /lpf Urine Bacteria (Auto) (Negative) Urine Crystals (None Prsent) Triple Phos Crystals (None Prsent) Urine Yeast SARS-CoV-2, RNA, NAAT (NEGATIVE) 11/10/21 11/09/21 11/09/21 Range/Units 01:19 21:07 20:52 WBC (4.8-10.8) K/ul RBC (4.63-6.08) M/uL Hgb (14.0-18.0) g/dl Hct (40.1-51.0) % MCV (80.0-100.0) fL MCH (25.0-34.0) pg MCHC (32.0-36.0) g/dL RDW Std Deviation (36.4-46.3) fL RDW Coeff of Jigna (11.5-14.5) % Plt Count (130-400) K/uL MPV (9.4-12.4) fL Immature Gran % (Auto) % Neut % (Auto) % Lymph % (Auto) % [place] % (Auto) % Eos % (Auto) % Baso % (Auto) % Neut # (Auto) (1.4-6.5) K/uL Lymph # (Auto) (1.2-3.4) K/uL [place] # (Auto) (0.24-0.82) K/uL Eos # (Auto) (0-0.50) K/uL Baso # (Auto) (0-0.2) K/uL Immature Gran # (Auto) (0.00-0.02) K/uL PT (9.0-12.0) Seconds INR (0.9-1.1) APTT (21.0-31.0) Seconds PTT Ratio VBG pH (7.36-7.41) VBG pCO2 (38-50) mmHg VBG pO2 mmHg VBG HCO3 mmol/L VBG O2 Saturation % VBG Base Excess mEq/L Sodium (136-145) mmol/L Potassium (3.5-5.1) mmol/L Chloride (98-107) mmol/L Carbon Dioxide (21-32) mmol/L Anion Gap (3-11) BUN (6-23) mg/dl Creatinine (0.6-1.4) mg/dl Est Cr Clr Drug Dosing Est GFR ( Amer) ml/min Est GFR (Non-Af Amer) ml/min BUN/Creatinine Ratio (10-20) Glucose (70-99(Fasting)) mg/dl Lactate 1.7 3.3 H* (0.4-2.0) mmol/L Calcium (8.5-10.1) mg/dl Magnesium (1.7-2.4) mg/dl Total Bilirubin (0.2-1.0) mg/dl Direct Bilirubin (0-0.2) mg/dl AST (13-39) U/L ALT (7-52) U/L Alkaline Phosphatase (34-104) U/L Ammonia (18-72) umol/L Total Protein (6.0-8.3) gm/dl Albumin (3.4-5.0) gm/dl Globulin (2.5-4.0) gm/dl Albumin/Globulin Ratio (0.9-2) Procalcitonin (0-0.5) ng/ml Urine Color Urine Appearance (Clear) Urine pH (4.5-7.5) Ur Specific Barton (1.000-1.030) Urine Protein (Negative) Urine Glucose (UA) (Negative) Urine Ketones (Negative) Urine Blood (Negative) Urine Nitrite (Negative) Urine Bilirubin (Negative) Urine Urobilinogen (Negative) Ur Leukocyte Esterase (Negative) Urine WBC (Auto) (0-5) /hpf Urine RBC (Auto) (0-4) /hpf U Hyaline Cast (Auto) (0-5) /lpf U Epithel Cells (Auto) (0-5) /lpf Urine Bacteria (Auto) (Negative) Urine Crystals (None Prsent) Triple Phos Crystals (None Prsent) Urine Yeast SARS-CoV-2, RNA, NAAT NEGATIVE (NEGATIVE) 11/09/21 11/09/21 11/09/21 Range/Units 19:10 18:57 18:57 WBC (4.8-10.8) K/ul RBC (4.63-6.08) M/uL Hgb (14.0-18.0) g/dl Hct (40.1-51.0) % MCV (80.0-100.0) fL MCH (25.0-34.0) pg MCHC (32.0-36.0) g/dL RDW Std Deviation (36.4-46.3) fL RDW Coeff of Jigna (11.5-14.5) % Plt Count (130-400) K/uL MPV (9.4-12.4) fL Immature Gran % (Auto) % Neut % (Auto) % Lymph % (Auto) % [place] % (Auto) % Eos % (Auto) % Baso % (Auto) % Neut # (Auto) (1.4-6.5) K/uL Lymph # (Auto) (1.2-3.4) K/uL [place] # (Auto) (0.24-0.82) K/uL Eos # (Auto) (0-0.50) K/uL Baso # (Auto) (0-0.2) K/uL Immature Gran # (Auto) (0.00-0.02) K/uL PT (9.0-12.0) Seconds INR (0.9-1.1) APTT (21.0-31.0) Seconds PTT Ratio VBG pH 7.42 H (7.36-7.41) VBG pCO2 44 (38-50) mmHg VBG pO2 27 mmHg VBG HCO3 29 mmol/L VBG O2 Saturation < 60.0 % VBG Base Excess 3.4 mEq/L Sodium (136-145) mmol/L Potassium (3.5-5.1) mmol/L Chloride (98-107) mmol/L Carbon Dioxide (21-32) mmol/L Anion Gap (3-11) BUN (6-23) mg/dl Creatinine (0.6-1.4) mg/dl Est Cr Clr Drug Dosing Est GFR ( Amer) ml/min Est GFR (Non-Af Amer) ml/min BUN/Creatinine Ratio (10-20) Glucose (70-99(Fasting)) mg/dl Lactate (0.4-2.0) mmol/L Calcium (8.5-10.1) mg/dl Magnesium (1.7-2.4) mg/dl Total Bilirubin (0.2-1.0) mg/dl Direct Bilirubin (0-0.2) mg/dl AST (13-39) U/L ALT (7-52) U/L Alkaline Phosphatase (34-104) U/L Ammonia 141.0 H (18-72) umol/L Total Protein (6.0-8.3) gm/dl Albumin (3.4-5.0) gm/dl Globulin (2.5-4.0) gm/dl Albumin/Globulin Ratio (0.9-2) Procalcitonin (0-0.5) ng/ml Urine Color [place] Urine Appearance Turbid A (Clear) Urine pH 8.0 H (4.5-7.5) Ur Specific Barton 1.017 (1.000-1.030) Urine Protein 3+ H (Negative) Urine Glucose (UA) Negative (Negative) Urine Ketones Negative (Negative) Urine Blood 3+ H (Negative) Urine Nitrite Negative (Negative) Urine Bilirubin Negative (Negative) Urine Urobilinogen Negative (Negative) Ur Leukocyte Esterase 3+ H (Negative) Urine WBC (Auto) >30 H (0-5) /hpf Urine RBC (Auto) >30 H (0-4) /hpf U Hyaline Cast (Auto) 0 (0-5) /lpf U Epithel Cells (Auto) >30 H (0-5) /lpf Urine Bacteria (Auto) 4+ H (Negative) Urine Crystals Triple Phosphate A (None Prsent) Triple Phos Crystals Present A (None Prsent) Urine Yeast Not Reportable SARS-CoV-2, RNA, NAAT (NEGATIVE) 11/09/21 11/09/21 11/09/21 Range/Units 18:57 18:57 18:57 WBC (4.8-10.8) K/ul RBC (4.63-6.08) M/uL Hgb (14.0-18.0) g/dl Hct (40.1-51.0) % MCV (80.0-100.0) fL MCH (25.0-34.0) pg MCHC (32.0-36.0) g/dL RDW Std Deviation (36.4-46.3) fL RDW Coeff of Jigna (11.5-14.5) % Plt Count (130-400) K/uL MPV (9.4-12.4) fL Immature Gran % (Auto) % Neut % (Auto) % Lymph % (Auto) % [place] % (Auto) % Eos % (Auto) % Baso % (Auto) % Neut # (Auto) (1.4-6.5) K/uL Lymph # (Auto) (1.2-3.4) K/uL [place] # (Auto) (0.24-0.82) K/uL Eos # (Auto) (0-0.50) K/uL Baso # (Auto) (0-0.2) K/uL Immature Gran # (Auto) (0.00-0.02) K/uL PT 10.9 (9.0-12.0) Seconds INR 1.0 (0.9-1.1) APTT 32.4 H (21.0-31.0) Seconds PTT Ratio 1.2 VBG pH (7.36-7.41) VBG pCO2 (38-50) mmHg VBG pO2 mmHg VBG HCO3 mmol/L VBG O2 Saturation % VBG Base Excess mEq/L Sodium 138 (136-145) mmol/L Potassium 4.0 (3.5-5.1) mmol/L Chloride 107 (98-107) mmol/L Carbon Dioxide 24 (21-32) mmol/L Anion Gap 7 (3-11) BUN 17 (6-23) mg/dl Creatinine 0.80 (0.6-1.4) mg/dl Est Cr Clr Drug Dosing Not Reportable Est GFR ( Amer) 112.5 ml/min Est GFR (Non-Af Amer) 97.1 ml/min BUN/Creatinine Ratio 21.3 H (10-20) Glucose 109 H (70-99(Fasting)) mg/dl Lactate 2.6 H* (0.4-2.0) mmol/L Calcium 8.0 L (8.5-10.1) mg/dl Magnesium 1.9 (1.7-2.4) mg/dl Total Bilirubin 0.4 (0.2-1.0) mg/dl Direct Bilirubin (0-0.2) mg/dl AST 21 (13-39) U/L ALT 21 (7-52) U/L Alkaline Phosphatase 219 H (34-104) U/L Ammonia (18-72) umol/L Total Protein 6.4 (6.0-8.3) gm/dl Albumin 2.2 L (3.4-5.0) gm/dl Globulin 4.2 H (2.5-4.0) gm/dl Albumin/Globulin Ratio 0.5 L (0.9-2) Procalcitonin (0-0.5) ng/ml Urine Color Urine Appearance (Clear) Urine pH (4.5-7.5) Ur Specific [place] (1.000-1.030) Urine Protein (Negative) Urine Glucose (UA) (Negative) Urine Ketones (Negative) Urine Blood (Negative) Urine Nitrite (Negative) Urine Bilirubin (Negative) Urine Urobilinogen (Negative) Ur Leukocyte Esterase (Negative) Urine WBC (Auto) (0-5) /hpf Urine RBC (Auto) (0-4) /hpf U Hyaline Cast (Auto) (0-5) /lpf U Epithel Cells (Auto) (0-5) /lpf Urine Bacteria (Auto) (Negative) Urine Crystals (None Prsent) Triple Phos Crystals (None Prsent) Urine Yeast SARS-CoV-2, RNA, NAAT (NEGATIVE) 11/09/21 Range/Units 18:57 WBC 14.34 H (4.8-10.8) K/ul RBC 3.94 L (4.63-6.08) M/uL Hgb 11.3 L (14.0-18.0) g/dl Hct 35.5 L (40.1-51.0) % MCV 90.1 (80.0-100.0) fL MCH 28.7 (25.0-34.0) pg MCHC 31.8 L (32.0-36.0) g/dL RDW Std Deviation 53.7 H (36.4-46.3) fL RDW Coeff of Jigna 16.2 H (11.5-14.5) % Plt Count 772 H (130-400) K/uL MPV 8.4 L (9.4-12.4) fL Immature Gran % (Auto) 0.3 % Neut % (Auto) 87.1 % Lymph % (Auto) 8.3 % [place] % (Auto) 3.2 % Eos % (Auto) 0.6 % Baso % (Auto) 0.5 % Neut # (Auto) 12.49 H (1.4-6.5) K/uL Lymph # (Auto) 1.19 L (1.2-3.4) K/uL [place] # (Auto) 0.46 (0.24-0.82) K/uL Eos # (Auto) 0.08 (0-0.50) K/uL Baso # (Auto) 0.07 (0-0.2) K/uL Immature Gran # (Auto) 0.05 H (0.00-0.02) K/uL PT (9.0-12.0) Seconds INR (0.9-1.1) APTT (21.0-31.0) Seconds PTT Ratio VBG pH (7.36-7.41) VBG pCO2 (38-50) mmHg VBG pO2 mmHg VBG HCO3 mmol/L VBG O2 Saturation % VBG Base Excess mEq/L Sodium (136-145) mmol/L Potassium (3.5-5.1) mmol/L Chloride (98-107) mmol/L Carbon Dioxide (21-32) mmol/L Anion Gap (3-11) BUN (6-23) mg/dl Creatinine (0.6-1.4) mg/dl Est Cr Clr Drug Dosing Est GFR ( Amer) ml/min Est GFR (Non-Af Amer) ml/min BUN/Creatinine Ratio (10-20) Glucose (70-99(Fasting)) mg/dl Lactate (0.4-2.0) mmol/L Calcium (8.5-10.1) mg/dl Magnesium (1.7-2.4) mg/dl Total Bilirubin (0.2-1.0) mg/dl Direct Bilirubin (0-0.2) mg/dl AST (13-39) U/L ALT (7-52) U/L Alkaline Phosphatase (34-104) U/L Ammonia (18-72) umol/L Total Protein (6.0-8.3) gm/dl Albumin (3.4-5.0) gm/dl Globulin (2.5-4.0) gm/dl Albumin/Globulin Ratio (0.9-2) Procalcitonin (0-0.5) ng/ml Urine Color Urine Appearance (Clear) Urine pH (4.5-7.5) Ur Specific [place] (1.000-1.030) Urine Protein (Negative) Urine Glucose (UA) (Negative) Urine Ketones (Negative) Urine Blood (Negative) Urine Nitrite (Negative) Urine Bilirubin (Negative) Urine Urobilinogen (Negative) Ur Leukocyte Esterase (Negative) Urine WBC (Auto) (0-5) /hpf Urine RBC (Auto) (0-4) /hpf U Hyaline Cast (Auto) (0-5) /lpf U Epithel Cells (Auto) (0-5) /lpf Urine Bacteria (Auto) (Negative) Urine Crystals (None Prsent) Triple Phos Crystals (None Prsent) Urine Yeast SARS-CoV-2, RNA, NAAT (NEGATIVE) Diagnostic Findings Abdomen/Pelvis CT 11/09/21 18:26 CT abd pelvis wo con CLINICAL HISTORY: ams TECHNIQUE: Helical axial images of the abdomen and pelvis were obtained. Automated dose lowering techniques and/or adjustment according to patient size were utilized for this exam. This exam was performed without intravenous contrast. CT DOSE: 485.07 mGy.cm COMPARISON: Comparison is made to CT abdomen pelvis 01/21/2021 FINDINGS: Lower chest: No acute abnormality Liver: Unremarkable. No focal lesions are seen. Gallbladder and biliary tree: Patient is status post cholecystectomy. No intra- or extrahepatic biliary ductal dilation. Pancreas: Fatty replacement of the pancreas is seen. Spleen: The spleen is diminutive. Adrenals: Unremarkable. Kidneys and ureters: Bilateral hydronephrosis is seen. A nephroureteral stent is seen in the right. A left nephroureteral stent is noted with the proximal component of the mid ureter rather than the renal pelvis. Bladder: Garrison catheter is seen. Reproductive organs: Prostatic calcifications are seen which may represent prior hemorrhage or granulomatous disease. Bowel: Marked rectal thickening is seen with a large stool ball in the rectum. Solid and liquid contents are noted in the sigmoid colon with thickening of the wall. Patient is status post appendectomy. There is a moderate hiatal hernia with postsurgical changes noted about the stomach. Lymph nodes Retroperitoneal: Unremarkable. Pelvic: Unremarkable. Mesenteric: Unremarkable. Peritoneum: No evidence of pneumoperitoneum. Vessels: Atherosclerotic calcifications are seen. Abdominal wall: Unremarkable. Bones: Degenerative changes in the visualized spine. Posterior fixation hardware is partially seen in the thoracic spine. IMPRESSION: 1. Interval increase in thickness of the rectal and sigmoid colonic wall, compatible with proctocolitis, possibly stercoral colitis in this patient with a large stool burden. 2. Interval displacement of the left nephroureteral stent, the proximal component now is in the mid ureter. Bilateral hydronephrosis/hydroureter is noted. ACT 112: Negative or not required by law. Electronically signed by: Colt Johnson M.D. 11/09/2021 8:35 PM Chest X-Ray 11/09/21 18:26 XR chest 1V portable CLINICAL HISTORY: SEPSIS COMPARISON STUDY: Chest radiograph March 18, 2021. Chest CT January 24, 2021. FINDINGS: Exam is compromised by suboptimal penetration. There are postoperative findings within the spine and right humerus. Lung volumes are normal. Lungs are clear. There is no pneumothorax or pleural effusion. Cardiac size is normal. Mediastinal contours are normal. There is no evidence for pulmonary edema. IMPRESSION: No acute cardiopulmonary findings. Exam compromised by suboptimal penetration. ACT 112: Negative or not required by law. Electronically signed by: Omar Fisher M.D. 11/10/2021 8:[address] 11/09/21 18:26 CT head/brain wo con CLINICAL HISTORY: ams Technique: Contiguous axial CT images of the head were acquired from the base of the skull to the vertex without intravenous contrast administration. Images were viewed in brain, subdural and bone windows. Automated dose lowering techniques and/or adjustment according to patient size were utilized for this exam. Comparison: Comparison is made to CT head 01/17/2022 Findings: Areas of decreased attenuation are present in the periventricular and subcortical white matter bilaterally consistent with small vessel ischemic disease. Generalized cerebral atrophy with commensurate enlargement of the ventricles, sulci, and cisterns is also present. There is no acute intracranial hemorrhage or evidence of acute territorial infarction. No shift of the midline structures, mass effect, or extra-axial abnormalities are shown. Atherosclerotic calcifications are present in the intracranial segments of the internal carotid arteries. Calcifications of the falx are seen. Imaged portions of the paranasal sinuses and mastoid air cells are clear. The orbits appear normal. There are no acute fractures of the calvaria or scalp swelling. Impression: No acute intracranial hemorrhage, no evidence of acute territorial infarction or other acute intracranial disease process. ACT 112: Negative or not required by law. Electronically signed by: Colt Johnson M.D. 11/09/2021 8:21 PM PG Care Time/CCT Total # of Minutes Spent Total Time Spent with Patient: Total time spent is greater than 50% in coordination of care (as documented) at patient's floor/unit and/or counseling patient: Coding Level of Care Code 61298 Subseq Hosp Care Lvl 3 Diagnoses Sepsis secondary to UTI A41.9; N39.0 AMS (altered mental status) R41.82 Altered mental status type: unspecified Displacement of indwelling ureteral stent T83.122A Encounter type: initial encounter UTI (urinary tract infection) N39.0 Fecal impaction K56.41 Acute hepatic encephalopathy K72.00 Depression F32.9 Hyperlipidemia E78.5 Asplenia Q89.01 GERD (gastroesophageal reflux disease) K21.9 Esophagitis presence: without esophagitis Sepsis A41.9 Metabolic encephalopathy G93.41 (1) AMS (altered mental status) Altered mental status type: unspecified Qualified Code(s): R41.82 - Altered mental status, unspecified (2) Displacement of indwelling ureteral stent Encounter type: initial encounter Qualified Code(s): T83.122A - Displacement of indwelling ureteral stent, initial encounter (3) GERD (gastroesophageal reflux disease) Esophagitis presence: without esophagitis Qualified Code(s): K21.9 - Gastro- esophageal reflux disease without esophagitis
[2021-11-10] MEDS ORDERED: KETOROLAC 30 MG/ML VIAL IV PRN (08:51)
[2021-11-10] MEDS ORDERED: ATROPINE SULFATE 0.1 MG/ML 10ML SYR IV PRN (08:51)
[2021-11-10] MEDS ORDERED: fentaNYL citrate 100 MCG/2 ML VIAL ONE (09:26)
[2021-11-10] MEDS ORDERED: MIDAZOLAM HCL 1 MG/ML 2ML VIAL ONE (09:26)
[2021-11-10] MEDS ORDERED: ONDANSETRON INJ 2 MG/ML 2 ML VIAL ONE (09:26)
[2021-11-10] MEDS: ASPIRIN 81 MG ECTAB PO SCH (09:34)
[2021-11-10] MEDS: SENNA 8.6 MG TAB PO SCH ×2 (09:35→20:06)
[2021-11-10] MEDS: LACTULOSE SYRUP 20 GM/30 ML UDC PO SCH ×4 (09:35→20:06)
[2021-11-10] MEDS: FLUoxetine HCL 20 MG CAP PO SCH (09:35)
[2021-11-10] MEDS: NYSTATIN OINT 15 GM TUBE EXT SCH ×2 (09:35→20:07)
[2021-11-10] MEDS: LINACLOTIDE 145 MCG CAPSULE PO SCH (09:35)
--- NOTE | 2021-11-10 09:46 | Electrocardiogram Report ---
Test Reason : Blood Pressure : / mmHG Vent. Rate : 098 BPM Atrial Rate : 098 BPM P-R Int : 144 ms QRS Dur : 102 ms QT Int : 376 ms P-R-T Axes : 070 -46 078 degrees QTc Int : 480 ms Poor data quality, interpretation may be adversely affected Sinus rhythm Left anterior fascicular block Inferior infarct , age undetermined Prolonged QT Abnormal ECG When compared with ECG of 17-MAR-2021 06:38, Criteria for Inferior infarct is now Present Confirmed by Phillip Gibbons ([id number]) on 11/10/2021 9:45:53 AM Referred By: REFERRED SELF Confirmed By:Phillip Gibbons
--- NOTE | 2021-11-10 10:55 | Operative Report ---
PG Post Operative Report Pre & Post Diagnosis Operation Date: 11/10/21 09:25 Pre-Op Diagnosis: Complicated Urinary Tract Infection Post-Op Diagnosis: Complicated Urinary Tract Infection I identified the patient and participated in the time-out.: Yes Procedure Operation Date: 11/10/21 09:25 Actual Procedures p Cystoscopy, Bilateral Stent Exchange(Bilateral) - Martin Mirza MD Surgeon Martin Mirza MD Cooling Tower Operator none Estimated Blood Loss 0 Findings Consistent with Post-Op Diagnosis Specimens none Description of Procedure The patient was identified in the preoperative holding area, appropriate informed consents were reviewed and completed and the patient was transferred to the operative suite. Upon arrival, appropriate antibiotics and anesthesia were administered and the patient was placed in dorsal lithotomy position and prepped and draped in sterile fashion. Of note, given his lack of mobility positioning was moderately challenging, however I was able to pass a cystoscope per urethra. Inspection revealed a relatively healthy urethra. His prostate is not particularly enlarged. Upon entering the bladder I irrigated small blood from the bladder. Inspection revealed 2 stents, one protruding from each orifice. I grasped the distal aspect of the left stent first and withdrew it to the meatus. I attempted to intubate the stent with a wire but the lumen was entirely encrusted. I reentered the bladder alongside the stent and successfully navigated a Super Stiff wire into the kidney. I then withdrew the stent entirely before placing a new 6 Serbian by 22-32 cm multilength stent. There was good curl in the kidney as well as the bladder. Before leaving the bladder turned my attention to the right ureteral orifice. I utilized a sensor wire to intubate the lumen adjacent to the stent. I was able to navigate this wire into the kidney. I then withdrew the stent leaving the wire in place. Under fluoroscopic guidance I placed a 6 Serbian by 22-32 cm stent on the right. There is good curl in the kidney as well as the bladder. I then replaced an 18 Serbian coud catheter and completed the case. There were no complications. He tolerated the procedure well. I attest to the content of the Intraoperative Record and any orders documented therein. Any exceptions are noted below.
[2021-11-10] MEDS ORDERED: PANTOprazole 40 MG in SYRINGE 0 ML IV SCH (11:00)
--- NOTE | 2021-11-10 11:20 | Anesthesiology Progress Note ---
Date of Service November 10, 2021 Anesthesia Post Procedure Vital Signs Vital Signs: Temp Pulse Pulse Pulse Resp BP BP 11/10/21 11:05 89 16 141/90 H 11/10/21 10:56 36.6 C 94 H 12 139/99 11/10/21 08:08 37.1 C 97 H 20 145/98 H 11/10/21 07:17 37 C 92 H 16 136/85 11/10/21 01:00 11/10/21 01:03 36.8 C 18 11/10/21 00:30 88 16 122/87 11/10/21 00:00 92 H 21 124/84 11/09/21 23:00 93 H 19 114/65 11/09/21 22:41 97 H 25 H 110/74 11/09/21 22:14 97 H 17 105/72 11/09/21 20:55 101 H 21 109/79 11/09/21 20:30 104 H 26 H 123/98 11/09/21 21:05 11/09/21 20:00 98 H 20 11/09/21 19:19 104 H 95 H 11/09/21 19:19 113 H 11/09/21 19:18 20 11/09/21 18:47 36.8 C 96 H 18 111/77 BP BP Pulse Ox O2 Del Method O2 Flow Rate 11/10/21 11:05 100 Nasal Cannula 2 11/10/21 10:56 96 Oxymask 6 11/10/21 08:08 100 Nasal Cannula 3 11/10/21 07:17 99 Nasal Cannula 2 11/10/21 01:00 Nasal Cannula 2 11/10/21 01:03 157/79 H 99 Nasal Cannula 2 11/10/21 00:30 100 Nasal Cannula 2 11/10/21 00:00 99 2 11/09/21 23:00 97 Room Air 11/09/21 22:41 99 Room Air 11/09/21 22:14 97 Room Air 11/09/21 20:55 98 2 11/09/21 20:30 97 Room Air 11/09/21 21:05 99 Nasal Cannula 2 11/09/21 20:00 99 Room Air 11/09/21 19:19 122/102 H 96 Room Air 11/09/21 19:19 100 Room Air 11/09/21 19:18 97 Room Air 11/09/21 18:47 98 Room Air Pain Intensity Right Shoulder: Pain Intensity: 5 Transfer of Care Handoff Completed per policy Notes Mental Status: alert / awake / arousable Patient Amnestic to Procedure: Yes Nausea / Vomiting: adequately controlled Pain: adequately controlled Airway Patency, RR, SpO2: stable & adequate BP & HR: stable & adequate Hydration State: stable & adequate Anesthetic Complications: no major complications apparent
[2021-11-10] MEDS: VANCOMYCIN HCL 1,000 MG in SODIUM CHLORIDE 0.9% 250 ML IV SCH ×2 (12:00→22:22)
[2021-11-10] MEDS: oxyCODONE/ACETAMINOPHEN 10-325 TAB PO PRN ×2 (12:15→20:06)
--- NOTE | 2021-11-10 13:00 | Fluoroscopy Report ---
FL KUB CLINICAL HISTORY: Bilateral stent exchange. COMPARISON STUDY: CT of the abdomen and pelvis November 09, 2021. FLUOROSCOPY TIME: 26 seconds. FLUOROSCOPIC IMAGES: 7 FINDINGS: Fluoroscopy was provided during bilateral stent exchange. Left ureteral calculus is noted o n these images. Stents are appropriately positioned. IMPRESSION: Fluoroscopy provided during bilateral ureteral stent exchange. ACT 112: Negative or not required by law. Electronically signed by: Omar Fisher M.D. 11/10/2021 12:59 PM
[2021-11-10] MEDS ORDERED: SOD PHOSPHATE/SOD BIPHOSPHATE ENEMA 132 ML BTL PR STA (13:25)
[2021-11-10 14:49] LABS: A calco-baum cmplx NotReported Not Detected (NotDetected); Bact fragilis Not Reported Not Detected (NotDetected); C auris Not Reported Not Detected (NotDetected); CTX-M Resistant Gene Not Detected (NotDetected); Calbicans Not Reported Not Detected (NotDetected); Candida glabrata Not Reported Not Detected (NotDetected); Candida krusei Not Reported Not Detected (NotDetected); Cneoformans/gatti Not Reported Not Detected (NotDetected); Cparapsilosis Not Reported Not Detected (NotDetected); Ctropicalis Not Reported Not Detected (NotDetected); E cloacae compx Not Reported Not Detected (NotDetected); Efaecalis Not Reported Not Detected (NotDetected); Efaecium Not Reported Not Detected (NotDetected); Enterobacterales Not Reported DETECTED (NotDetected); Escherichia coli Not Reported Not Detected (NotDetected); H influenzae Not Reported Not Detected (NotDetected); IMP Resistant Gene Not Detected (NotDetected); K aerogenes Not Reported Not Detected (NotDetected); KPC Resistant Gene Not Detected (NotDetected); Koxytoca Not Reported Not Detected (NotDetected); Kpneumoniae grp Not Reported Not Detected (NotDetected); Lmonocyt Not Reported Not Detected (NotDetected); N meningitidis Not Reported Not Detected (NotDetected); NDM Resistant Gene Not Detected (NotDetected); OXA 48 Like Resistant Gene Not Detected (NotDetected); P aeruginosa Not Reported Not Detected (NotDetected); Proteus spp Not Reported Not Detected (NotDetected); Salmonella spp Not Reported Not Detected (NotDetected); Smarcescens Not Reported Not Detected (NotDetected); Staph lugdunensis Not Reported Not Detected (NotDetected); Staph spp. Not Reported Not Detected (NotDetected); Staphaureus Not Reported Not Detected (NotDetected); Staphepi Not Reported Not Detected (NotDetected); Stenmaltophilia Not Reported Not Detected (NotDetected); Strep agal(GrpB) Not Reported Not Detected (NotDetected); Strep pneum Not Reported Not Detected (NotDetected); Strep pyog (GrpA) Not Reported Not Detected (NotDetected); Strep spp Not Reported Not Detected (NotDetected); VIM Resistant Gene Not Detected (NotDetected)
--- NOTE | 2021-11-10 15:11 | Pharmacy Report ---
Pharmacy PK ABX Note - Date of Service November 10, 2021 - Assessment and Plan Assessment 61 year old M receiving Vancomycin for treatment of complicated UTI and bacteremia. Pertinent microbiologic data includes: Gram negative bacilli growing in the blood and urine today. Patient does have history of Enterococcus. So continue Vancomycin for now until more culture results available tomorrow to rule out possibility of Enterococcus. Patient is currently on Zerbaxa due to history of Pseudomonas and Klebsiella positive urine cultures. Day #1 of antimicrobial therapy. Plan Vancomycin * Loading dose: 1250 mg IV x 1 at 02:57 today. * Maintenance dose: 1000 mg IV every 12 hours * Regimen is predicted to achieve target AUC/KONSTANTIN of 400-600 mg/L.hr * Plan to order a Vancomycin level if therapy continues tomorrow. Pharmacy will continue to follow and will adjust dose/frequency as necessary. Thank you. Pharmacy has transitioned to AUC monitoring for vancomycin. AUC/KONSTANTIN is the preferred PK/PD target and is associated with decreased risk of nephrotoxicity compared to traditional trough targets.
[2021-11-10 15:45] LABS: A calco-baum cmplx NotReported Not Detected (NotDetected); Bact fragilis Not Reported Not Detected (NotDetected); C auris Not Reported Not Detected (NotDetected); Calbicans Not Reported Not Detected (NotDetected); Candida glabrata Not Reported Not Detected (NotDetected); Candida krusei Not Reported Not Detected (NotDetected); Cneoformans/gatti Not Reported Not Detected (NotDetected); Cparapsilosis Not Reported Not Detected (NotDetected); Ctropicalis Not Reported Not Detected (NotDetected); E cloacae compx Not Reported Not Detected (NotDetected); Efaecalis Not Reported Not Detected (NotDetected); Efaecium Not Reported Not Detected (NotDetected); Enterobacterales Not Reported Not Detected (NotDetected); Escherichia coli Not Reported Not Detected (NotDetected); H influenzae Not Reported Not Detected (NotDetected); K aerogenes Not Reported Not Detected (NotDetected); Koxytoca Not Reported Not Detected (NotDetected); Kpneumoniae grp Not Reported Not Detected (NotDetected); Lmonocyt Not Reported Not Detected (NotDetected); N meningitidis Not Reported Not Detected (NotDetected); P aeruginosa Not Reported Not Detected (NotDetected); Proteus spp Not Reported Not Detected (NotDetected); Salmonella spp Not Reported Not Detected (NotDetected); Smarcescens Not Reported Not Detected (NotDetected); Staph lugdunensis Not Reported Not Detected (NotDetected); Staph spp. Not Reported DETECTED (NotDetected); Staphaureus Not Reported Not Detected (NotDetected); Staphepi Not Reported Not Detected (NotDetected); Stenmaltophilia Not Reported Not Detected (NotDetected); Strep agal(GrpB) Not Reported Not Detected (NotDetected); Strep pneum Not Reported Not Detected (NotDetected); Strep pyog (GrpA) Not Reported Not Detected (NotDetected); Strep spp Not Reported Not Detected (NotDetected)
[2021-11-10 15:55] LABS: Enterobacterales DETECTED (NotDetected)
[2021-11-10 15:56] LABS: Staphylococcus spp. DETECTED (NotDetected)
[2021-11-10] MEDS ORDERED: SOD PHOSPHATE/SOD BIPHOSPHATE ENEMA 132 ML BTL PR ONE (16:09)
[2021-11-10] MEDS: ACETAMINOPHEN 325 MG TAB PO PRN (16:17)
[2021-11-10 19:39] LABS: Adenovirus F 40/41 PCR Not Detected (NotDetected); Astrovirus PCR Not Detected (NotDetected); Campylobacter PCR Not Detected (NotDetected); Clostridium diff Toxin A/B PCR Not Detected (NotDetected); Cryptosporidium PCR Not Detected (NotDetected); Cyclospora cayetanensis PCR Not Detected (NotDetected); Entamoeba histolytica PCR Not Detected (NotDetected); Enteroaggregative E.coli(EAEC) Not Detected (NotDetected); Enteropathogenic E.coli (EPEC) Not Detected (NotDetected); Enterotoxigenic E.coli (ETEC) Not Detected (NotDetected); Giardia lamblia PCR Not Detected (NotDetected); Norovirus GI/GII PCR Not Detected (NotDetected); Plesiomonas shigelloides PCR Not Detected (NotDetected); Rotavirus A PCR Not Detected (NotDetected); Salmonella PCR Not Detected (NotDetected); Sapovirus PCR Not Detected (NotDetected); Shiga-like Toxin E.coli (STEC) Not Detected (NotDetected); Shigella/Enteroinvasive E.coli Not Detected (NotDetected); Vibrio cholerae PCR Not Detected (NotDetected); Vibrio species PCR Not Detected (NotDetected); Yersinia enterocolitica PCR Not Detected (NotDetected)
[2021-11-10] MEDS: ATORVASTATIN 20 MG TAB PO SCH (23:55)
[2021-11-11] MEDS: CEFTOLOZANE/TAZOBACTAM 1,500 MG in DEXTROSE 5% 100 ML IV SCH ×3 (01:26→17:29)
[2021-11-11] MEDS: oxyCODONE/ACETAMINOPHEN 10-325 TAB PO PRN ×3 (06:49→20:24)
[2021-11-11 07:16] LABS: Hematocrit (blood only) 31.4 % (40.1-51.0); Mean Corpuscular Hgb Conc 31.8 g/dL (32.0-36.0); Mean Platelet Volume 8.9 fL (9.4-12.4); Platelet Count 607 K/uL (130-400); RDW Coefficient of Variation 16.4 % (11.5-14.5); RDW Standard Deviation 53.3 fL (36.4-46.3); Red Blood Count 3.45 M/uL (4.63-6.08); White Blood Count 24.69 K/ul (4.8-10.8)
[2021-11-11 07:37] LABS: Albumin Globulin Ratio 0.5 (0.9-2); Albumin Level 1.9 gm/dl (3.4-5.0); BUN Creatinine Ratio 17.3 (10-20); Bilirubin,Total 0.3 mg/dl (0.2-1.0); Calcium 7.3 mg/dl (8.5-10.1); Creatinine Clr Calc Pharmacy 91.9 ml/min; Est GFR (Non-African American) 96.6 ml/min; Globulin 3.6 gm/dl (2.5-4.0); Magnesium 1.6 mg/dl (1.7-2.4); Potassium 2.8 mmol/L (3.5-5.1); Total Protein 5.5 gm/dl (6.0-8.3)
[2021-11-11 08:01] LABS: Folate (Folic Acid) > 22.30 ng/ml (>5.38)
[2021-11-11 08:02] LABS: Vitamin B12 1211 pg/ml (180-914)
[2021-11-11 08:08] LABS: Basophils # (auto) 0.22 K/uL (0-0.2); Basophils % (auto) 0.9 %; Echinocytes 1+; Eosinophils # (auto) 0.57 K/uL (0-0.50); Eosinophils % (auto) 2.3 %; Immature Granulocytes # (auto) 0.18 K/uL (0.00-0.02); Immature Granulocytes % (auto) 0.7 %; Lymphocytes # (auto) 1.64 K/uL (1.2-3.4); Lymphocytes % (auto) 6.6 %; Monocytes # (auto) 0.93 K/uL (0.24-0.82); Monocytes % (auto) 3.8 %; Neutrophils # (auto) 21.15 K/uL (1.4-6.5); Neutrophils % (auto) 85.7 %; Polychromasia 1+; Target Cells 1+
[2021-11-11] MEDS: SENNA 8.6 MG TAB PO SCH ×2 (08:27→20:24)
[2021-11-11] MEDS: FLUoxetine HCL 20 MG CAP PO SCH (08:27)
[2021-11-11] MEDS: LINACLOTIDE 145 MCG CAPSULE PO SCH (08:27)
[2021-11-11] MEDS: ASPIRIN 81 MG ECTAB PO SCH (08:28)
[2021-11-11] MEDS: PANTOprazole 40 MG TAB PO SCH (08:28)
[2021-11-11] MEDS: NYSTATIN OINT 15 GM TUBE EXT SCH ×2 (08:28→20:25)
[2021-11-11] MEDS: LACTULOSE SYRUP 20 GM/30 ML UDC PO SCH ×4 (08:28→20:26)
[2021-11-11] MEDS ORDERED: MAGNESIUM SULFATE / D5W 1 GM/100 ML BAG IV ONE (08:43)
[2021-11-11] MEDS ORDERED: POTASSIUM CHLORIDE 10 MEQ / 100ML WTR IV STA (08:43)
--- NOTE | 2021-11-11 08:50 | Hospitalist Progress Note ---
Date of Service November 11, 2021 Assessment & Plan (1) Sepsis secondary to UTI: Plan: 61-year-old male with T4 paraplegia, indwelling Garrison, GERD, hypertension, hyperlipidemia, asplenia presents with diffuse weakness, confusion, diarrhea and concern for sepsis. UTI with sepsis due to indwelling garrison catheter Procal 19.77, leukocytosis on Ceftolozane Tazobactam and vancomycin, there are gram negative bacilli in blood and urine, urine with multiple organisms seen Imaging obtained with CTAP showing 1. Interval increase in thickness of the rectal and sigmoid colonic wall, compatible with proctocolitis, possibly stercoral colitis in this patient with a large stool burden. 2. Interval displacement of the left nephroureteral stent, the proximal component now is in the mid ureter. Bilateral hydronephrosis/hydroureter is noted. Urology consulted p Cystoscopy, Bilateral Stent Exchange(Bilateral) - Martin Mirza MD 11/10 irrigated small blood from bladder. stent entirely encrusted on the left Bowel regimen --> lactulose, titrate to BM 2-3/daily -will also order fleets enema (successful prior admit) -Check PCR given reports of diarrhea however always constipated (fecal disimpaction in ER and possible stercoral proctitis based on CTAP) and chronic abx use PT/OT consulted more alert/oriented after disimpaction/abx and stent exchange frequent orientation (2) AMS (altered mental status): Plan: metabolic and hepatic encephalopathy CT head negative on admission Tx outlined above for UTI/fecal impaction (3) Displacement of indwelling ureteral stent: Plan: Patient with chronic bilateral hydronephrosis with ureteral stents in place. He follows with urology. CT of the abdomen today revealed interval displacement of the left nephroureteral stent, the proximal component now is in the mid ureter. Also with bilateral hydronephrosis/hydroureter. UA with 4+ bacteria. Urology consulted s/p stent exchange 11/10, monitor urine cx and continue abx as outlined (4) UTI (urinary tract infection): Plan: St cath obtained --> gram negative bacilli on preliminary (5) Fecal impaction: Plan: s/p disimpaction performed in the ER with removal of a large stool ball. -Continue Linzess 145mcg po daily, Senna 25.8mg po BID, Dulcolax [place] daily PRN, miralax prn Continue Lactulose QID - titrate to 2-3 soft BMs daily (6) Acute hepatic encephalopathy: Plan: Patient with hyperammonemia, IX0=[id number]. No known hepatic disease. Normal liver morphology on CT. Possibly secondary to infection? stool burden/constipation? ?blood dyscrasia? Patient has had persistent leukocytosis with WBC ranging 11 - 24 (most likely secondary to asplenia). He had a peripheral smear in 2019 which revealed no significant morphologic abnormalities. Non-specific leukocytosis and normochromic/normocytic anemia. patient is s/p cholecystectomy, no ductal dilation on imaging -Repeat LFTs in AM -Lactulose QID - titrate to 2-3 soft BMs daily (7) Depression: Plan: Chronic -Continue Fluoxetine 40mg po daily -Continue Elavil 50mg po daily (8) Hyperlipidemia: Plan: Chronic. -Continue Atorvastatin daily (9) Asplenia: Plan: Noted (10) GERD (gastroesophageal reflux disease): Plan: Chronic -Protonix 40mg IV daily, can convert to PO for AM (11) Sepsis: (12) Metabolic encephalopathy: Plan: improving Plan continued inpatient stay Admission and Anticipated Discharge Date Admission Date: November 09, 2021 Subjective pt still with some metabolic encephalopathy, did have bilateral stent exchange a nd cysto, urine with multiple organisms, will recollect after garrison change, does have gram negative bacteremia Review of Systems Review of Systems: Moderate distress and fatigue no headache, no visual changes no speech or swallowing issues no chest pain, pressure or palpitations no shortness of breath, nonproductive cough or wheezes no abdominal pain, nausea or vomiting, no diarrhea no dysuria, hematuria or frequency no focal joint pain or swelling no back pain, CVA tenderness or radicular pain no bruising, bleeding or rashes pre hospital paraplegia no complaints of anxiety or depression.. Physical Exam Physical Exam: The patient appeared well nourished and normally developed. he is slighlty confused Vital signs as documented. Head exam is normocephalic atraumatic Neck is without JVD, thyromegaly, or carotid bruits. Lungs are clear to auscultation, no focal loss of breath sounds Cardiac exam, Rhythm is regular.. No murmurs, rubs or gallops. Abdominal exam reveals normal bowel sounds, soft non tender, no masses Extremities are nonedematous and both pedal pulses are present Neurologic exam is with pre hospital parapelgia Skin is without bruises or rashes Psychologically is without concerns for anxiety or depression.. Results & Data Results & Data ([facility]) Vital Signs (Past 12 Hours) Vital Signs Temp Pulse Resp BP Pulse Ox O2 Del Method O2 Flow Rate 11/11/21 08:02 97.9 F 88 18 103/71 100 Nasal Cannula 2 11/11/21 03:00 97.5 F L 83 20 121/83 100 Nasal Cannula 2 11/10/21 23:29 98.2 F 77 18 102/65 98 Nasal Cannula 2 PG Care Time/CCT Total # of Minutes Spent Total Time Spent with Patient: Total time spent is greater than 50% in coordination of care (as documented) at patient's floor/unit and/or counseling patient: Coding Level of Care Code 92715 Subseq Hosp Care Lvl 2 Diagnoses Sepsis secondary to UTI A41.9; N39.0 AMS (altered mental status) R41.82 Altered mental status type: unspecified Displacement of indwelling ureteral stent T83.122A Encounter type: initial encounter UTI (urinary tract infection) N39.0 Fecal impaction K56.41 Acute hepatic encephalopathy K72.00 Depression F32.9 Hyperlipidemia E78.5 Asplenia Q89.01 GERD (gastroesophageal reflux disease) K21.9 Esophagitis presence: without esophagitis Sepsis A41.9 Metabolic encephalopathy G93.41 (1) AMS (altered mental status) Altered mental status type: unspecified Qualified Code(s): R41.82 - Altered mental status, unspecified (2) Displacement of indwelling ureteral stent Encounter type: initial encounter Qualified Code(s): T83.122A - Displacement of indwelling ureteral stent, initial encounter (3) GERD (gastroesophageal reflux disease) Esophagitis presence: without esophagitis Qualified Code(s): K21.9 - Gastro- esophageal reflux disease without esophagitis
[2021-11-11 08:53] LABS: Ferritin 116.5 ng/ml (8-388)
[2021-11-11] MEDS: VANCOMYCIN HCL 1,000 MG in SODIUM CHLORIDE 0.9% 250 ML IV SCH ×2 (10:24→22:15)
[2021-11-11] MEDS: POTASSIUM CHLORIDE CRTAB 20 MEQ TABCR PO SCH ×2 (11:30→20:24)
[2021-11-11] MEDS: ACETAMINOPHEN 325 MG TAB PO PRN ×2 (11:31→19:27)
[2021-11-11] MEDS: POTASSIUM CHLORIDE / WTR 10 MEQ/100 ML PLCT IV SCH ×3 (12:26→15:10)
[2021-11-12] MEDS: AMITRIPTYLINE HCL 50 MG TAB PO SCH (00:08)
[2021-11-12] MEDS: ATORVASTATIN 20 MG TAB PO SCH ×2 (00:08→23:15)
[2021-11-12] MEDS: ACETAMINOPHEN 325 MG TAB PO PRN ×2 (00:35→13:53)
[2021-11-12] MEDS: CEFTOLOZANE/TAZOBACTAM 1,500 MG in DEXTROSE 5% 100 ML IV SCH ×2 (02:09→09:29)
[2021-11-12] MEDS: oxyCODONE/ACETAMINOPHEN 10-325 TAB PO PRN ×4 (04:56→23:06)
[2021-11-12 07:46] LABS: Basophils % (auto) 0.7 %; Eosinophils # (auto) 0.42 K/uL (0-0.50); Hematocrit (blood only) 27.2 % (40.1-51.0); Hemoglobin 8.8 g/dl (14.0-18.0); Immature Granulocytes # (auto) 0.13 K/uL (0.00-0.02); Immature Granulocytes % (auto) 0.9 %; Lymphocytes % (auto) 7.1 %; Mean Corpuscular Hemoglobin 28.9 pg (25.0-34.0); Mean Corpuscular Hgb Conc 32.4 g/dL (32.0-36.0); Mean Corpuscular Volume 89.2 fL (80.0-100.0); Mean Platelet Volume 8.8 fL (9.4-12.4); Monocytes # (auto) 0.86 K/uL (0.24-0.82); Monocytes % (auto) 6.1 %; Neutrophils # (auto) 11.49 K/uL (1.4-6.5); Neutrophils % (auto) 82.2 %; Platelet Count 554 K/uL (130-400); RDW Coefficient of Variation 16.2 % (11.5-14.5); RDW Standard Deviation 52.5 fL (36.4-46.3); Red Blood Count 3.05 M/uL (4.63-6.08)
[2021-11-12] MEDS: PANTOprazole 40 MG TAB PO SCH (08:03)
[2021-11-12] MEDS: FLUoxetine HCL 20 MG CAP PO SCH (08:03)
[2021-11-12] MEDS: ASPIRIN 81 MG ECTAB PO SCH (08:03)
[2021-11-12] MEDS: SENNA 8.6 MG TAB PO SCH ×2 (08:03→20:23)
[2021-11-12] MEDS: LINACLOTIDE 145 MCG CAPSULE PO SCH (08:04)
[2021-11-12] MEDS: LACTULOSE SYRUP 20 GM/30 ML UDC PO SCH ×4 (08:04→20:23)
[2021-11-12] MEDS: NYSTATIN OINT 15 GM TUBE EXT SCH ×2 (08:04→20:24)
[2021-11-12] MEDS: POTASSIUM CHLORIDE CRTAB 20 MEQ TABCR PO SCH (08:08)
[2021-11-12 08:18] LABS: BUN Creatinine Ratio 17.8 (10-20); Calcium 7.2 mg/dl (8.5-10.1); Est GFR (African American) 116.9 ml/min; Est GFR (Non-African American) 100.8 ml/min; Potassium 3.8 mmol/L (3.5-5.1)
--- NOTE | 2021-11-12 09:12 | Urology Progress Note ---
Date of Service November 12, 2021 Assessment & Plan (1) Sepsis secondary to UTI: (2) Neurogenic bladder: (3) History of ureter stent: Plan 61 yo M with a history of neurogenic bladder and bilateral hydronephrosis managed with chronic garrison and bilateral ureteral stents. Patient no showed to f/u to discuss stent exchange. Presented to hospital with concerns for sepsis. Bilateral stent exchange performed on 11/10. -Patient subjectively improving. Leukocytosis resolving. Blood culture growing providencia, currently on vanc and zerbaxa. Pharmacy recommends de escalating zerbaxa to ceftriaxone today. -Maintain garrison catheter -Discussed with patient importance of coming to clinic for follow up to avoid delayed exchanging leading to sepsis as this has happened several times recently. -Urology to sign off. Recommend 10-14 days of total antibiotics. -Urology will schedule outpatient f/u. Admission and Anticipated Discharge Date Admission Date: November 09, 2021 Subjective S/P cystoscopy and bilateral stent exchange on 11/10. Denies any flank pain or discomfort from garrison catheter. Reports feeling well. Afebrile with stable vitals. Leukocytosis downtrending, Cr stable. Blood cultures growing providencia stuartii, urine culture mixed yessi. Currently on vancomycin and zerbaxa. Review of Systems Review of Systems: 14 point review of systems negative outside of what is listed above in HPI Physical Exam Physical Exam: General: Alert and oriented, no acute distress HEENT: Normocephalic, mucous membranes moist Cardiovascular: Regular rate Pulmonary: Nonlabored respirations Abdomen: Nondistended : Garrison draining clear yellow urine Extremities: Moves all 4 spontaneously Neuro: No gross deficits Skin: Warm, dry, no rashes noted Results & Data ([facility]) Vital Signs (Past 12 Hours) Vital Signs Temp Pulse Resp BP Pulse Ox O2 Del Method 11/12/21 07:17 36.4 C L 86 20 96/64 L 91 Room Air 11/11/21 23:17 36.5 C 78 20 124/76 98 Room Air 11/11/21 21:17 Room Air PG Care Time/CCT Total # of Minutes Spent Total Time Spent with Patient: Total time spent is greater than 50% in coordination of care (as documented) at patient's floor/unit and/or counseling patient: Coding Level of Care Code 88022 Subseq Hosp Care Lvl 2 Diagnoses Sepsis secondary to UTI A41.9; N39.0 Neurogenic bladder N31.9 History of ureter stent
[2021-11-12] MEDS ORDERED: VANCOMYCIN LEVEL ONE (09:30)
--- NOTE | 2021-11-12 10:08 | Pharmacy Report ---
Pharmacy PK ABX Note - Date of Service November 12, 2021 - Assessment and Plan Assessment 61 year old M receiving Vancomycin and Zerbaxa for treatment of complicated UTI and bacteremia. * Day #3 of abx therapy. * Afebrile. Leukocytosis improving. Renal fxn stable. * Blood cultures from 11/09/21 grew coag negative staph in 1/4 bottles (no sensitivities to follow, likely contaminated) and providenica stuartii in 1/4 bottles (sensitive to ceftriaxone). * Recommend switch from Zerbaxa to Ceftriaxone today. * Urine cx from 11/09/21 grew three types of organisms, all high counts, not viable for further identification. Urine cx from 11/11/21 grew low counts of mixed yessi, likely skin yessi. Urine cx recollected after garrison replaced on 11/12/21. Will await these results prior to discontinuing Vancomycin. Plan Vancomycin * Current regimen: 1000 mg IV every 12 hours * Trough level obtained 11/12/21 resulted as 20.3 mcg/mL. This is predicted to achieve target AUC/KONSTANTIN of 400-600 mg/L.hr but is on the upper end of the goal range. Therefore, concerned that drug will accumulate and be supratherapeutic in the coming days on this dose. * Change to 750 mg IV every 12 hours. Predicted AUC at steady state: 437 mg/L.hr * Repeat trough level ordered for: 11/14/21 Ceftriaxone * 2 g IV every 24 hours Pharmacy will continue to follow and will adjust dose/frequency as necessary. Thank you. Pharmacy has transitioned to AUC monitoring for vancomycin. AUC/KONSTANTIN is the preferred PK/PD target and is associated with decreased risk of nephrotoxicity compared to traditional trough targets.
[2021-11-12] MEDS: cefTRIAXone SODIUM 2,000 MG in DEXTROSE 5% 50 ML IV SCH (11:05)
[2021-11-12] MEDS: VANCOMYCIN HCL 750 MG in SODIUM CHLORIDE 0.9% 250 ML IV SCH ×2 (11:53→22:12)
--- NOTE | 2021-11-12 18:28 | Hospitalist Progress Note ---
Date of Service November 12, 2021 Assessment & Plan (1) Sepsis secondary to UTI: Plan: 61-year-old male with T4 paraplegia, indwelling Garrison, GERD, hypertension, hyperlipidemia, asplenia presents with diffuse weakness, confusion, diarrhea and concern for sepsis. UTI with sepsis due to indwelling garrison catheter Procal 19.77, leukocytosis on ceftriaoxne and vancomycin, there are gram negative bacilli in blood and urine, blood Providencia urine with multiple organisms seen Imaging obtained with CTAP showing 1. Interval increase in thickness of the rectal and sigmoid colonic wall, compatible with proctocolitis, possibly stercoral colitis in this patient with a large stool burden. 2. Interval displacement of the left nephroureteral stent, the proximal component now is in the mid ureter. Bilateral hydronephrosis/hydroureter is noted. Urology consulted p Cystoscopy, Bilateral Stent Exchange(Bilateral) - Martin Mirza MD 11/10 irrigated small blood from bladder. stent entirely encrusted on the left Bowel regimen --> lactulose, titrate to BM 2-3/daily did have good production and decompression of abdomen -will also order fleets enema (successful prior admit) -Check PCR given reports of diarrhea however always constipated (fecal disimpaction in ER and possible stercoral proctitis based on CTAP) and chronic abx use PT/OT consulted more alert/oriented after disimpaction/abx and stent exchange frequent orientation, does remain confused (2) AMS (altered mental status): Plan: metabolic and hepatic encephalopathy no good reason for elevated ammonia, liver looked normal on ct with persistent confusion, will recheck ammonia now that has had bowel movements, if elevated may launch additional liver testing CT head negative on admission Tx outlined above for UTI/fecal impaction (3) Displacement of indwelling ureteral stent: Plan: Patient with chronic bilateral hydronephrosis with ureteral stents in place. He follows with urology. CT of the abdomen today revealed interval displacement of the left nephroureteral stent, the proximal component now is in the mid ureter. Also with bilateral hydronephrosis/hydroureter. UA with 4+ bacteria. Urology consulted s/p stent exchange 11/10, monitor urine cx and continue abx as outlined (4) UTI (urinary tract infection): Plan: St cath obtained --> multiple organisms (5) Fecal impaction: Plan: s/p disimpaction performed in the ER with removal of a large stool ball. -Continue Linzess 145mcg po daily, Senna 25.8mg po BID, Dulcolax [place] daily PRN, miralax prn Continue Lactulose QID - titrate to 2-3 soft BMs daily (6) Acute hepatic encephalopathy: Plan: Patient with hyperammonemia, DF2=148. No known hepatic disease. Normal liver morphology on CT. Possibly secondary to infection? stool burden/constipation? ?blood dyscrasia? Patient has had persistent leukocytosis with WBC ranging 11 - 24 (most likely secondary to asplenia). He had a peripheral smear in 2019 which revealed no significant morphologic abnormalities. Non-specific leukocytosis and normochromic/normocytic anemia. patient is s/p cholecystectomy, no ductal dilation on imaging -Repeat LFTs in AM 11/11 are normal repeat ammonia 11/13 as still confused -Lactulose QID - titrate to 2-3 soft BMs daily (7) Depression: Plan: Chronic -Continue Fluoxetine 40mg po daily -Continue Elavil 50mg po daily (8) Hyperlipidemia: Plan: Chronic. -Continue Atorvastatin daily (9) Asplenia: Plan: Noted (10) GERD (gastroesophageal reflux disease): Plan: Chronic -Protonix daily, (11) Sepsis: (12) Metabolic encephalopathy: Plan: improving Plan continued inpatient stay Admission and Anticipated Discharge Date Admission Date: November 09, 2021 Subjective S/P cystoscopy and bilateral stent exchange on 11/10. Denies any flank pain or discomfort from garrison catheter. Reports feeling well. Afebrile with stable vitals. Leukocytosis downtrending, Cr stable. Blood cultures growing providencia stuartii, urine culture mixed yessi. Currently on vancomycin and ceftriaxone as urine did not grow gram negatives Review of Systems Review of Systems: Moderate distress and fatigue continues to be confused no headache, no visual changes no speech or swallowing issues no chest pain, pressure or palpitations no shortness of breath, nonproductive cough or wheezes no abdominal pain, nausea or vomiting, no diarrhea no dysuria, hematuria or frequency no focal joint pain or swelling no back pain, CVA tenderness or radicular pain no bruising, bleeding or rashes pre hospital paraplegia no complaints of anxiety or depression.pt recognizes he is confused . Physical Exam Physical Exam: The patient appeared well nourished and normally developed. he is slighlty confused Vital signs as documented. Head exam is normocephalic atraumatic Neck is without JVD, thyromegaly, or carotid bruits. Lungs are clear to auscultation, no focal loss of breath sounds Cardiac exam, Rhythm is regular.. No murmurs, rubs or gallops. Abdominal exam reveals normal bowel sounds, soft non tender, no masses Extremities are nonedematous and both pedal pulses are present Neurologic exam is with pre hospital parapelgia, confusion Skin is without bruises or rashes Psychologically is with mild confusion and lethargy Results & Data Results & Data ([facility]) Vital Signs (Past 12 Hours) Vital Signs Temp Pulse Resp BP BP Pulse Ox O2 Del Method 11/12/21 16:24 98.2 F 81 18 120/74 94 Room Air 11/12/21 08:00 Room Air 11/12/21 07:17 97.5 F L 86 20 96/64 L 91 Room Air PG Care Time/CCT Total # of Minutes Spent Total Time Spent with Patient: Total time spent is greater than 50% in coordination of care (as documented) at patient's floor/unit and/or counseling patient: Coding Level of Care Code 48865 Subseq Hosp Care Lvl 3 Diagnoses Sepsis secondary to UTI A41.9; N39.0 AMS (altered mental status) R41.82 Altered mental status type: unspecified Displacement of indwelling ureteral stent T83.122A Encounter type: initial encounter UTI (urinary tract infection) N39.0 Fecal impaction K56.41 Acute hepatic encephalopathy K72.00 Depression F32.9 Hyperlipidemia E78.5 Asplenia Q89.01 GERD (gastroesophageal reflux disease) K21.9 Esophagitis presence: without esophagitis Sepsis A41.9 Metabolic encephalopathy G93.41 (1) AMS (altered mental status) Altered mental status type: unspecified Qualified Code(s): R41.82 - Altered mental status, unspecified (2) Displacement of indwelling ureteral stent Encounter type: initial encounter Qualified Code(s): T83.122A - Displacement of indwelling ureteral stent, initial encounter (3) GERD (gastroesophageal reflux disease) Esophagitis presence: without esophagitis Qualified Code(s): K21.9 - Gastro- esophageal reflux disease without esophagitis
[2021-11-13] MEDS: MELATONIN 3 MG TAB PO PRN ×2 (03:06→23:04)
[2021-11-13 06:40] LABS: Basophils # (auto) 0.14 K/uL (0-0.2); Basophils % (auto) 0.9 %; Eosinophils % (auto) 2.6 %; Hemoglobin 8.5 g/dl (14.0-18.0); Immature Granulocytes # (auto) 0.18 K/uL (0.00-0.02); Immature Granulocytes % (auto) 1.2 %; Lymphocytes # (auto) 1.96 K/uL (1.2-3.4); Lymphocytes % (auto) 12.8 %; Mean Corpuscular Hemoglobin 28.5 pg (25.0-34.0); Mean Corpuscular Hgb Conc 32.7 g/dL (32.0-36.0); Mean Corpuscular Volume 87.2 fL (80.0-100.0); Mean Platelet Volume 8.7 fL (9.4-12.4); Monocytes # (auto) 1.06 K/uL (0.24-0.82); Monocytes % (auto) 6.9 %; Neutrophils # (auto) 11.54 K/uL (1.4-6.5); Neutrophils % (auto) 75.6 %; Platelet Count 550 K/uL (130-400); RDW Coefficient of Variation 15.4 % (11.5-14.5); RDW Standard Deviation 48.6 fL (36.4-46.3); Red Blood Count 2.98 M/uL (4.63-6.08); White Blood Count 15.28 K/ul (4.8-10.8)
[2021-11-13 07:09] LABS: BUN Creatinine Ratio 19.3 (10-20); Calcium 7.1 mg/dl (8.5-10.1); Creatinine Clr Calc Pharmacy 130.6 ml/min; Est GFR (African American) 129.4 ml/min; Est GFR (Non-African American) 111.6 ml/min; Potassium 3.2 mmol/L (3.5-5.1)
[2021-11-13] MEDS: oxyCODONE/ACETAMINOPHEN 10-325 TAB PO PRN ×3 (07:14→19:58)
[2021-11-13] MEDS: POTASSIUM CHLORIDE CRTAB 20 MEQ TABCR PO SCH ×2 (09:04→20:28)
[2021-11-13] MEDS: LINACLOTIDE 145 MCG CAPSULE PO SCH (09:05)
[2021-11-13] MEDS: SENNA 8.6 MG TAB PO SCH ×2 (09:05→20:28)
[2021-11-13] MEDS: PANTOprazole 40 MG TAB PO SCH (09:05)
[2021-11-13] MEDS: FLUoxetine HCL 20 MG CAP PO SCH (09:06)
[2021-11-13] MEDS: ASPIRIN 81 MG ECTAB PO SCH (09:06)
[2021-11-13] MEDS: LACTULOSE SYRUP 20 GM/30 ML UDC PO SCH ×4 (09:06→20:27)
[2021-11-13] MEDS: NYSTATIN OINT 15 GM TUBE EXT SCH ×2 (09:09→20:28)
[2021-11-13] MEDS: cefTRIAXone SODIUM 2,000 MG in DEXTROSE 5% 50 ML IV SCH (10:18)
[2021-11-13] MEDS: VANCOMYCIN HCL 750 MG in SODIUM CHLORIDE 0.9% 250 ML IV SCH (10:51)
--- NOTE | 2021-11-13 17:16 | Hospitalist Progress Note ---
Date of Service November 13, 2021 Assessment & Plan (1) Sepsis secondary to UTI: Plan: 61-year-old male with T4 paraplegia, indwelling Garrison, GERD, hypertension, hyperlipidemia, asplenia presents with diffuse weakness, confusion, diarrhea and concern for sepsis. UTI with sepsis due to indwelling garrison catheter, metabolic encephalopahty Procal 19.77, leukocytosis on ceftriaoxne and vancomycin, there are gram negative bacilli in blood and urine, blood Providencia urine with multiple organisms seen Imaging obtained with CTAP showing 1. Interval increase in thickness of the rectal and sigmoid colonic wall, compatible with proctocolitis, possibly stercoral colitis in this patient with a large stool burden. 2. Interval displacement of the left nephroureteral stent, the proximal component now is in the mid ureter. Bilateral hydronephrosis/hydroureter is noted. Urology consulted Cystoscopy, Bilateral Stent Exchange(Bilateral) - Martin Mirza MD 11/10 irrigated small blood from bladder. stent entirely encrusted on the left Bowel regimen --> lactulose, titrate to BM 2-3/daily did have good production and decompression of abdomen -will also order fleets enema (successful prior admit) -Check PCR given reports of diarrhea however always constipated (fecal disimpaction in ER and possible stercoral proctitis based on CTAP) and chronic abx use PT/OT consulted more alert/oriented after disimpaction/abx and stent exchange frequent orientation, does remain confused (2) AMS (altered mental status): Plan: metabolic and hepatic encephalopathy no good reason for elevated ammonia, liver looked normal on ct with persistent confusion, recheck ammonia is normal CT head negative on admission Tx outlined above for UTI/fecal impaction, maybe more of a prolonged metabolic encephalopathy (3) Displacement of indwelling ureteral stent: Plan: Patient with chronic bilateral hydronephrosis with ureteral stents in place. He follows with urology. CT of the abdomen today revealed interval displacement of the left nephroureteral stent, the proximal component now is in the mid ureter. Also with bilateral hydronephrosis/hydroureter. UA with 4+ bacteria. Urology consulted s/p stent exchange 11/10, monitor urine cx and continue abx as outlined (4) UTI (urinary tract infection): Plan: St cath obtained --> multiple organisms (5) Fecal impaction: Plan: s/p disimpaction performed in the ER with removal of a large stool ball. -Continue Linzess 145mcg po daily, Senna 25.8mg po BID, Dulcolax [place] daily PRN, miralax prn Continue Lactulose QID - titrate to 2-3 soft BMs daily (6) Acute hepatic encephalopathy: Plan: Patient with hyperammonemia, YQ7=989. No known hepatic disease. Normal liver morphology on CT. resolved ? etiology will send B1 level and start thiamine in case is thiamine deficiency patient is s/p cholecystectomy, no ductal dilation on imaging -Repeat LFTs in AM 11/11 are normal repeat ammonia normal 11/13 still confused -Lactulose QID - titrate to 2-3 soft BMs daily (7) Depression: Plan: Chronic -Continue Fluoxetine 40mg po daily -Continue Elavil 50mg po daily (8) Hyperlipidemia: Plan: Chronic. -Continue Atorvastatin daily (9) Asplenia: Plan: Noted (10) GERD (gastroesophageal reflux disease): Plan: Chronic -Protonix daily, (11) Sepsis: (12) Metabolic encephalopathy: Plan: improving Plan continued inpatient stay Admission and Anticipated Discharge Date Admission Date: November 09, 2021 Subjective Patient is pleasantly confused at times he knows he is confused. Will look for secondary causes of metabolic encephalopathy however his laboratory work is improved and initial CAT scan of his head was unremarkable. This may be just prolonged encephalopathy from his infection. Review of Systems Review of Systems: Moderate distress and fatigue continues to be confused no headache, no visual changes no speech or swallowing issues no chest pain, pressure or palpitations no shortness of breath, nonproductive cough or wheezes no abdominal pain, nausea or vomiting, no diarrhea no dysuria, hematuria or frequency no focal joint pain or swelling no back pain, CVA tenderness or radicular pain no bruising, bleeding or rashes pre hospital paraplegia no complaints of anxiety or depression.pt recognizes he is confused . Physical Exam Physical Exam: The patient appeared well nourished and normally developed. he is slighlty confused Vital signs as documented. Head exam is normocephalic atraumatic Neck is without JVD, thyromegaly, or carotid bruits. Lungs are clear to auscultation, no focal loss of breath sounds Cardiac exam, Rhythm is regular.. No murmurs, rubs or gallops. Abdominal exam reveals normal bowel sounds, soft non tender, no masses Extremities are nonedematous and both pedal pulses are present Neurologic exam is with pre hospital parapelgia, confusion Skin is without bruises or rashes Psychologically is with mild confusion and lethargy Results & Data Results & Data ([facility]) Vital Signs (Past 12 Hours) Vital Signs Temp Pulse Resp BP Pulse Ox O2 Del Method 11/13/21 15:23 97.7 F 88 16 104/70 96 Room Air 11/13/21 08:01 Room Air 11/13/21 07:47 97.7 F 85 16 148/89 H 96 Room Air PG Care Time/CCT Total # of Minutes Spent Total Time Spent with Patient: Total time spent is greater than 50% in coordination of care (as documented) at patient's floor/unit and/or counseling patient: Coding Level of Care Code 58780 Subseq Hosp Care Lvl 3 Diagnoses Sepsis secondary to UTI A41.9; N39.0 AMS (altered mental status) R41.82 Altered mental status type: unspecified Displacement of indwelling ureteral stent T83.122A Encounter type: initial encounter UTI (urinary tract infection) N39.0 Fecal impaction K56.41 Acute hepatic encephalopathy K72.00 Depression F32.9 Hyperlipidemia E78.5 Asplenia Q89.01 GERD (gastroesophageal reflux disease) K21.9 Esophagitis presence: without esophagitis Sepsis A41.9 Metabolic encephalopathy G93.41 (1) AMS (altered mental status) Altered mental status type: unspecified Qualified Code(s): R41.82 - Altered mental status, unspecified (2) Displacement of indwelling ureteral stent Encounter type: initial encounter Qualified Code(s): T83.122A - Displacement of indwelling ureteral stent, initial encounter (3) GERD (gastroesophageal reflux disease) Esophagitis presence: without esophagitis Qualified Code(s): K21.9 - Gastro- esophageal reflux disease without esophagitis
[2021-11-13] MEDS: ACETAMINOPHEN 325 MG TAB PO PRN (17:22)
[2021-11-13] MEDS ORDERED: THIAMINE HCL 500 MG in SODIUM CHLORIDE 0.9% 50 ML IV ONE (19:00)
[2021-11-13] MEDS: ATORVASTATIN 20 MG TAB PO SCH (23:04)
[2021-11-14] MEDS: oxyCODONE/ACETAMINOPHEN 10-325 TAB PO PRN ×4 (02:03→20:49)
[2021-11-14] MEDS: ACETAMINOPHEN 325 MG TAB PO PRN (06:00)
[2021-11-14 07:58] LABS: Basophils # (auto) 0.15 K/uL (0-0.2); Basophils % (auto) 0.9 %; Eosinophils # (auto) 0.45 K/uL (0-0.50); Eosinophils % (auto) 2.7 %; Hemoglobin 8.5 g/dl (14.0-18.0); Immature Granulocytes # (auto) 0.18 K/uL (0.00-0.02); Immature Granulocytes % (auto) 1.1 %; Lymphocytes # (auto) 1.83 K/uL (1.2-3.4); Lymphocytes % (auto) 10.9 %; Mean Corpuscular Hemoglobin 29.1 pg (25.0-34.0); Mean Corpuscular Volume 85.6 fL (80.0-100.0); Mean Platelet Volume 8.8 fL (9.4-12.4); Monocytes # (auto) 1.04 K/uL (0.24-0.82); Monocytes % (auto) 6.2 %; Neutrophils # (auto) 13.07 K/uL (1.4-6.5); Neutrophils % (auto) 78.2 %; Nucleated RBC # (auto) 0.03 K/uL (0-0); Nucleated RBC % (auto) 0.2 %; Platelet Count 566 K/uL (130-400); RDW Coefficient of Variation 16.1 % (11.5-14.5); RDW Standard Deviation 49.6 fL (36.4-46.3); Red Blood Count 2.92 M/uL (4.63-6.08); White Blood Count 16.72 K/ul (4.8-10.8)
[2021-11-14] MEDS: POTASSIUM CHLORIDE CRTAB 20 MEQ TABCR PO SCH (08:16)
[2021-11-14] MEDS: SENNA 8.6 MG TAB PO SCH ×2 (08:16→20:49)
[2021-11-14] MEDS: ASPIRIN 81 MG ECTAB PO SCH (08:16)
[2021-11-14] MEDS: NYSTATIN OINT 15 GM TUBE EXT SCH ×2 (08:16→20:53)
[2021-11-14] MEDS: LACTULOSE SYRUP 20 GM/30 ML UDC PO SCH ×4 (08:16→20:50)
[2021-11-14] MEDS: PANTOprazole 40 MG TAB PO SCH (08:16)
[2021-11-14] MEDS: LINACLOTIDE 145 MCG CAPSULE PO SCH (08:16)
[2021-11-14] MEDS: FLUoxetine HCL 20 MG CAP PO SCH (08:16)
[2021-11-14] MEDS: THIAMINE HCL 200 MG in SODIUM CHLORIDE 0.9% 50 ML IV SCH (08:23)
[2021-11-14 08:25] LABS: BUN Creatinine Ratio 13.9 (10-20); Calcium 7.2 mg/dl (8.5-10.1); Creatinine Clr Calc Pharmacy 103.4 ml/min; Est GFR (African American) 117.5 ml/min; Est GFR (Non-African American) 101.4 ml/min; Potassium 3.6 mmol/L (3.5-5.1)
[2021-11-14] MEDS ORDERED: VANCOMYCIN LEVEL ONE (09:30)
[2021-11-14] MEDS: cefTRIAXone SODIUM 2,000 MG in DEXTROSE 5% 50 ML IV SCH (10:05)
--- NOTE | 2021-11-14 13:00 | Hospitalist Progress Note ---
Date of Service November 14, 2021 Assessment & Plan (1) Sepsis secondary to UTI: Plan: 61-year-old male with T4 paraplegia, indwelling Garrison, GERD, hypertension, hyperlipidemia, asplenia presents with diffuse weakness, confusion, diarrhea and concern for sepsis. UTI with sepsis due to indwelling garrison catheter, metabolic encephalopahty Procal 19.77, leukocytosis on ceftriaoxne and vancomycin, there are gram negative bacilli in blood and urine, blood Providencia urine with multiple organisms seen Imaging obtained with CTAP showing 1. Interval increase in thickness of the rectal and sigmoid colonic wall, compatible with proctocolitis, possibly stercoral colitis in this patient with a large stool burden. 2. Interval displacement of the left nephroureteral stent, the proximal component now is in the mid ureter. Bilateral hydronephrosis/hydroureter is noted. Urology consulted Cystoscopy, Bilateral Stent Exchange(Bilateral) - Martin Mirza MD 11/10 irrigated small blood from bladder. stent entirely encrusted on the left Bowel regimen --> lactulose, titrate to BM 2-3/daily did have good production and decompression of abdomen -will also order fleets enema (successful prior admit) -Check PCR given reports of diarrhea however always constipated (fecal disimpaction in ER and possible stercoral proctitis based on CTAP) and chronic abx use PT/OT consulted more alert/oriented after disimpaction/abx and stent exchange frequent orientation, does remain confused (2) AMS (altered mental status): Plan: metabolic and hepatic encephalopathy no good reason for elevated ammonia, liver looked normal on ct with persistent confusion, recheck ammonia is normal CT head negative on admission Tx outlined above for UTI/fecal impaction, maybe more of a prolonged metabolic encephalopathy (3) Displacement of indwelling ureteral stent: Plan: Patient with chronic bilateral hydronephrosis with ureteral stents in place. He follows with urology. CT of the abdomen today revealed interval displacement of the left nephroureteral stent, the proximal component now is in the mid ureter. Also with bilateral hydronephrosis/hydroureter. UA with 4+ bacteria. Urology consulted s/p stent exchange 11/10, monitor urine cx and continue abx as outlined (4) UTI (urinary tract infection): Plan: St cath obtained --> multiple organisms (5) Fecal impaction: Plan: s/p disimpaction performed in the ER with removal of a large stool ball. -Continue Linzess 145mcg po daily, Senna 25.8mg po BID, Dulcolax ND daily PRN, miralax prn Continue Lactulose QID - titrate to 2-3 soft BMs daily (6) Acute hepatic encephalopathy: Plan: Patient with hyperammonemia, NT8=180. No known hepatic disease. Normal liver morphology on CT. resolved ? etiology will send B1 level and start thiamine in case is thiamine deficiency patient is s/p cholecystectomy, no ductal dilation on imaging -Repeat LFTs in AM 11/11 are normal repeat ammonia normal 11/13 still confused -Lactulose QID - titrate to 2-3 soft BMs daily (7) Depression: Plan: Chronic -Continue Fluoxetine 40mg po daily -Continue Elavil 50mg po daily (8) Hyperlipidemia: Plan: Chronic. -Continue Atorvastatin daily (9) Asplenia: Plan: Noted (10) GERD (gastroesophageal reflux disease): Plan: Chronic -Protonix daily, (11) Sepsis: (12) Metabolic encephalopathy: Plan: improving Plan continued inpatient stay Admission and Anticipated Discharge Date Admission Date: November 09, 2021 Subjective Patient is improved, maybe from thiamine administration, level sent, will keep on thiamine Review of Systems Review of Systems: Moderate distress and fatigue continues to be confused no headache, no visual changes no speech or swallowing issues no chest pain, pressure or palpitations no shortness of breath, nonproductive cough or wheezes no abdominal pain, nausea or vomiting, no diarrhea no dysuria, hematuria or frequency no focal joint pain or swelling no back pain, CVA tenderness or radicular pain no bruising, bleeding or rashes pre hospital paraplegia no complaints of anxiety or depression.pt recognizes he is confused . Physical Exam Physical Exam: The patient appeared well nourished and normally developed. he is slighlty confused Vital signs as documented. Head exam is normocephalic atraumatic Neck is without JVD, thyromegaly, or carotid bruits. Lungs are clear to auscultation, no focal loss of breath sounds Cardiac exam, Rhythm is regular.. No murmurs, rubs or gallops. Abdominal exam reveals normal bowel sounds, soft non tender, no masses Extremities are nonedematous and both pedal pulses are present Neurologic exam is with pre hospital parapelgia, confusion Skin is without bruises or rashes Psychologically is with mild confusion and lethargy Results & Data Results & Data ([facility]) Vital Signs (Past 12 Hours) Vital Signs Temp Pulse Resp BP Pulse Ox O2 Del Method 11/14/21 07:47 97.5 F L 88 16 128/83 96 Room Air PG Care Time/CCT Total # of Minutes Spent Total Time Spent with Patient: Total time spent is greater than 50% in coordination of care (as documented) at patient's floor/unit and/or counseling patient: Coding Level of Care Code 91386 Subseq Hosp Care Lvl 2 Diagnoses Sepsis secondary to UTI A41.9; N39.0 AMS (altered mental status) R41.82 Altered mental status type: unspecified Displacement of indwelling ureteral stent T83.122A Encounter type: initial encounter UTI (urinary tract infection) N39.0 Fecal impaction K56.41 Acute hepatic encephalopathy K72.00 Depression F32.9 Hyperlipidemia E78.5 Asplenia Q89.01 GERD (gastroesophageal reflux disease) K21.9 Esophagitis presence: without esophagitis Sepsis A41.9 Metabolic encephalopathy G93.41 (1) AMS (altered mental status) Altered mental status type: unspecified Qualified Code(s): R41.82 - Altered mental status, unspecified (2) Displacement of indwelling ureteral stent Encounter type: initial encounter Qualified Code(s): T83.122A - Displacement of indwelling ureteral stent, initial encounter (3) GERD (gastroesophageal reflux disease) Esophagitis presence: without esophagitis Qualified Code(s): K21.9 - Gastro- esophageal reflux disease without esophagitis
[2021-11-14] MEDS: MELATONIN 3 MG TAB PO PRN (23:03)
[2021-11-14] MEDS: ATORVASTATIN 20 MG TAB PO SCH (23:04)
[2021-11-15] MEDS: ACETAMINOPHEN 325 MG TAB PO PRN ×2 (00:31→08:39)
[2021-11-15] MEDS: oxyCODONE/ACETAMINOPHEN 10-325 TAB PO PRN ×3 (04:25→18:43)
[2021-11-15 07:26] LABS: BUN Creatinine Ratio 18.6 (10-20); Calcium 7.2 mg/dl (8.5-10.1); Creatinine Clr Calc Pharmacy 173.1 ml/min; Est GFR (African American) 145.3 ml/min; Est GFR (Non-African American) 125.3 ml/min; Potassium 3.4 mmol/L (3.5-5.1)
[2021-11-15] MEDS: LACTULOSE SYRUP 20 GM/30 ML UDC PO SCH ×4 (08:39→21:55)
[2021-11-15] MEDS: FLUoxetine HCL 20 MG CAP PO SCH (08:40)
[2021-11-15] MEDS: SENNA 8.6 MG TAB PO SCH ×2 (08:40→21:55)
[2021-11-15] MEDS: NYSTATIN OINT 15 GM TUBE EXT SCH ×2 (08:40→21:56)
[2021-11-15] MEDS: ASPIRIN 81 MG ECTAB PO SCH (08:40)
[2021-11-15] MEDS: LINACLOTIDE 145 MCG CAPSULE PO SCH (08:40)
[2021-11-15] MEDS: PANTOprazole 40 MG TAB PO SCH (08:40)
[2021-11-15] MEDS: THIAMINE HCL 200 MG in SODIUM CHLORIDE 0.9% 50 ML IV SCH (08:43)
[2021-11-15] MEDS: cefTRIAXone SODIUM 2,000 MG in DEXTROSE 5% 50 ML IV SCH (09:06)
--- NOTE | 2021-11-15 15:56 | Hospitalist Progress Note ---
Date of Service November 15, 2021 Assessment & Plan (1) Sepsis secondary to UTI: Plan: Sepsis secondary to CAUTI w/ metabolic encephalopahty - Procal 19.77, leukocytosis on ceftriaoxne and vancomycin, there are gram negative bacilli in blood and urine, blood Providencia, urine with multiple organisms seen - Urology consulted s/p Stent Exchange(Bilateral) by Dr. Mirza 11/10 - PT/OT consulted - more alert/oriented after disimpaction/abx and stent exchange * frequent orientation, does remain confused - Antibiotics narrowed to Ceftriaxone alone 2g IV daily, today day #4, would treat for at least 10-14 days given sepsis presentation SEPSIS HAS RESOLVED (2) AMS (altered mental status): Plan: - metabolic and hepatic encephalopathy no good reason for elevated ammonia, liver looked normal on ct with persistent confusion - recheck ammonia is normal on 11/13 - CT head negative on admission - Tx outlined above for UTI/fecal impaction, maybe more of a prolonged metabolic encephalopathy - Added IV Thiamine and per prior documentation seems to have shown improvement since adding this (3) Displacement of indwelling ureteral stent: Plan: Patient with chronic bilateral hydronephrosis with ureteral stents in place. He follows with urology. CT of the abdomen today revealed interval displacement of the left nephroureteral stent, the proximal component now is in the mid ureter. Also with bilateral hydronephrosis/hydroureter. UA with 4+ bacteria. Urology consulted s/p stent exchange 11/10, monitor urine cx and continue abx as outlined (4) Fecal impaction: Plan: s/p disimpaction performed in the ER with removal of a large stool ball. - Continue Linzess 145mcg po daily, Senna 25.8mg po BID, Dulcolax [place] daily PRN, miralax prn - Continue Lactulose QID - titrate to 2-3 soft BMs daily (5) Acute hepatic encephalopathy: Plan: Patient with hyperammonemia, XO9=061. - No known hepatic disease. Normal liver morphology on CT. - resolved ? etiology will send B1 level and start thiamine in case is thiamine deficiency - Repeat LFTs in AM 0910 are normal, repeat ammonia normal on 11/13 - Lactulose QID - titrate to 2-3 soft BMs daily (6) Depression: Plan: Chronic - Continue Fluoxetine 40mg po daily - Continue Elavil 50mg po daily (7) Hyperlipidemia: Plan: Chronic. - Continue Atorvastatin daily (8) Asplenia: Plan: Noted (9) GERD (gastroesophageal reflux disease): Plan: Chronic -Protonix daily, Plan Patient clinically improved. Therapy is recommending SNF upon d/c. Pt agreeable to short term stay in rehab. Apparently is considering more of a termination clerk placement. Case management is involved. [facility] has no longterm beds. Other facility in [place] does not have any beds currently. Dispo is still pending at present. Plan d/w Dr. Mckinney. Admission and Anticipated Discharge Date Admission Date: November 09, 2021 Subjective Patient seen on daily rounds this morning. Verbalizes no complaints/concerns. He is resting comfortably in bed. Reports that he was told that a facility has accepted him for short term rehab ([facility]). No issues verbalizes by nursing staff. Review of Systems Review of Systems: All systems reviewed and are unremarkable except as noted in HPI and below. Denies fever, chills, fatigue, headache, nasal congestion, sore throat, cough, chest pain, shortness of breath, palpitations, orthopnea, PND, abdominal pain, n/v/d, constipation, dysuria, hematuria, frequency, back pain, joint pain or swelling, easy bruising or bleeding, skin lesions or rashes. Physical Exam Physical Exam: GENERAL: 61 yo Well-developed, well-nourished WM. NAD. LUNGS: Clear to auscultation bilaterally. No W/R/R. CARDIOVASCULAR: Regular rate and rhythm. No M/G/R. No JVD. ABDOMEN: Soft, non-tender and non-distended. BS normoactive x 4 quad. : Camp catheter in place, gross sediment noted in tubing EXTREMITIES: 1+ edema. Non-tender. Peripheral pulses +2/4. NEUROLOGIC: A&O x3. PSYCHIATRIC: Cooperative. Appropriate mood and affect. SKIN: Warm, dry, intact. No rashes or lesions. Results & Data Results & Data ([facility]) Vital Signs (Past 12 Hours) Vital Signs Temp Pulse Resp BP Pulse Ox O2 Del Method 11/15/21 14:41 36.8 C 82 18 137/88 97 Room Air 11/15/21 08:57 Room Air 11/15/21 07:06 36.4 C L 81 18 119/93 98 Room Air Laboratory Results 11/14/21 07:47 11/15/21 05:34 PG Care Time/CCT Total # of Minutes Spent Total Time Spent with Patient: Total time spent is greater than 50% in coordination of care (as documented) at patient's floor/unit and/or counseling patient: Coding Level of Care Code 09975 Subseq Hosp Care Lvl 2 Diagnoses Sepsis secondary to UTI A41.9; N39.0 AMS (altered mental status) R41.82 Altered mental status type: unspecified Displacement of indwelling ureteral stent T83.122A Encounter type: initial encounter Fecal impaction K56.41 Acute hepatic encephalopathy K72.00 Depression F32.9 Hyperlipidemia E78.5 Asplenia Q89.01 GERD (gastroesophageal reflux disease) K21.9 Esophagitis presence: without esophagitis (1) AMS (altered mental status) Altered mental status type: unspecified Qualified Code(s): R41.82 - Altered mental status, unspecified (2) Displacement of indwelling ureteral stent Encounter type: initial encounter Qualified Code(s): T83.122A - Displacement of indwelling ureteral stent, initial encounter (3) GERD (gastroesophageal reflux disease) Esophagitis presence: without esophagitis Qualified Code(s): K21.9 - Gastro- esophageal reflux disease without esophagitis
[2021-11-15] MEDS ORDERED: POTASSIUM CHLORIDE CRTAB 20 MEQ TABCR PO STA (16:06)
[2021-11-15] MEDS: ATORVASTATIN 20 MG TAB PO SCH (21:55)
[2021-11-15] MEDS: MELATONIN 3 MG TAB PO PRN (23:10)
[2021-11-16] MEDS: oxyCODONE/ACETAMINOPHEN 10-325 TAB PO PRN ×3 (06:44→22:15)
[2021-11-16] MEDS: SENNA 8.6 MG TAB PO SCH ×2 (07:48→22:15)
[2021-11-16] MEDS: LINACLOTIDE 145 MCG CAPSULE PO SCH (07:49)
[2021-11-16] MEDS: NYSTATIN OINT 15 GM TUBE EXT SCH ×2 (07:49→22:16)
[2021-11-16] MEDS: FLUoxetine HCL 20 MG CAP PO SCH (07:49)
[2021-11-16] MEDS: PANTOprazole 40 MG TAB PO SCH (07:49)
[2021-11-16] MEDS: ASPIRIN 81 MG ECTAB PO SCH (07:49)
[2021-11-16] MEDS: LACTULOSE SYRUP 20 GM/30 ML UDC PO SCH ×4 (07:49→22:15)
[2021-11-16] MEDS: THIAMINE HCL 200 MG in SODIUM CHLORIDE 0.9% 50 ML IV SCH (07:55)
[2021-11-16 08:42] LABS: Basophils # (auto) 0.19 K/uL (0-0.2); Eosinophils # (auto) 0.21 K/uL (0-0.50); Eosinophils % (auto) 1.1 %; Hematocrit (blood only) 25.4 % (40.1-51.0); Hemoglobin 8.6 g/dl (14.0-18.0); Immature Granulocytes # (auto) 0.19 K/uL (0.00-0.02); Lymphocytes % (auto) 8.4 %; Mean Corpuscular Hgb Conc 33.9 g/dL (32.0-36.0); Mean Corpuscular Volume 85.5 fL (80.0-100.0); Mean Platelet Volume 9.1 fL (9.4-12.4); Monocytes # (auto) 1.23 K/uL (0.24-0.82); Monocytes % (auto) 6.4 %; Neutrophils % (auto) 82.1 %; Nucleated RBC # (auto) 0.02 K/uL (0-0); Nucleated RBC % (auto) 0.1 %; Platelet Count 625 K/uL (130-400); RDW Coefficient of Variation 16.3 % (11.5-14.5); Red Blood Count 2.97 M/uL (4.63-6.08); White Blood Count 19.12 K/ul (4.8-10.8)
[2021-11-16 09:19] LABS: Albumin Globulin Ratio 0.6 (0.9-2); Albumin Level 1.9 gm/dl (3.4-5.0); BUN Creatinine Ratio 14.8 (10-20); Bilirubin,Total 0.2 mg/dl (0.2-1.0); Calcium 7.5 mg/dl (8.5-10.1); Creatinine Clr Calc Pharmacy 137.9 ml/min; Est GFR (African American) 132.3 ml/min; Est GFR (Non-African American) 114.1 ml/min; Globulin 3.4 gm/dl (2.5-4.0); Magnesium 1.7 mg/dl (1.7-2.4); Potassium 4.1 mmol/L (3.5-5.1); Total Protein 5.3 gm/dl (6.0-8.3)
[2021-11-16] MEDS: cefTRIAXone SODIUM 2,000 MG in DEXTROSE 5% 50 ML IV SCH (09:41)
[2021-11-16 10:02] LABS: Appearance Urine Cloudy (Clear); Bacteria Urine Automated Negative (Negative); Bilirubin Urine Negative (Negative); Blood Urine 3+ (Negative); Color Urine Yellow; Epithelial Cell Urine Auto 20-30 /lpf (0-5); Glucose Urine UA Negative (Negative); Ketones Urine Negative (Negative); Leukocyte Esterase Urine 3+ (Negative); Nitrite Urine Negative (Negative); Protein Urine Trace (Negative); RBC Urine Automated >30 /hpf (0-4); Specific Gravity Urine 1.008 (1.000-1.030); Urobilinogen Urine Negative (Negative); WBC Urine Automated >30 /hpf (0-5); pH Urine 5.5 (4.5-7.5)
[2021-11-16 10:19] LABS: Cast Urine Automated 0 /lpf (0-5)
--- NOTE | 2021-11-16 10:49 | Hospitalist Progress Note ---
Date of Service November 16, 2021 Assessment & Plan (1) Leukocytosis: Plan: Uptrending leukocytosis with fever and associated tachycardia - Pt with recent sepsis syndrome d/t CAUTI - Currently on Rocephin alone - Obtained repeat UA, urine culture, and blood cultures - Procal ordered to be repeated this morning - Concerned that there is a bacteria not adequately covered at this time, d/w pharmacy, will start Daptomycin and f/u blood work * If clinical improvement noted, likely missing coverage for Enterococcus based on his history * If no clinical improvement noted, possibly missing Pseudomonal coverage * Additional antibiotic recommendations/adjustments will be made as the clinical course progresses (2) Sepsis secondary to UTI: Plan: Sepsis secondary to CAUTI w/ metabolic encephalopathy - Procal 19.77, leukocytosis on ceftriaxone and vancomycin, there are gram negative bacilli in blood and urine, blood Providencia, urine with multiple organisms seen - Urology consulted s/p Stent Exchange(Bilateral) by Dr. Mirza 11/10 - PT/OT consulted - more alert/oriented after disimpaction/abx and stent exchange - Antibiotics narrowed to Ceftriaxone alone 2g IV daily, today day #5, see above re: abx (3) AMS (altered mental status): Plan: - metabolic and hepatic encephalopathy no good reason for elevated ammonia, liver looked normal on ct with persistent confusion - recheck ammonia is normal on 11/13 - CT head negative on admission - Tx outlined above for UTI/fecal impaction, maybe more of a prolonged metabolic encephalopathy - Added IV Thiamine and per prior documentation seems to have shown improvement since adding this (4) Displacement of indwelling ureteral stent: Plan: Patient with chronic bilateral hydronephrosis with ureteral stents in place. He follows with urology. CT of the abdomen today revealed interval displacement of the left nephroureteral stent, the proximal component now is in the mid ureter. Also with bilateral hydronephrosis/hydroureter. UA with 4+ bacteria. Urology consulted s/p stent exchange 11/10, monitor urine cx and continue abx as outlined (5) Fecal impaction: Plan: s/p disimpaction performed in the ER with removal of a large stool ball. - Continue Linzess 145mcg po daily, Senna 25.8mg po BID, Dulcolax [place] daily PRN, miralax prn - Continue Lactulose QID - titrate to 2-3 soft BMs daily (6) Acute hepatic encephalopathy: Plan: Patient with hyperammonemia, [id number]. - No known hepatic disease. Normal liver morphology on CT. - resolved ? etiology will send B1 level and start thiamine in case is thiamine deficiency - Repeat LFTs in AM 11/11 are normal, repeat ammonia normal on 11/13 - Lactulose QID - titrate to 2-3 soft BMs daily (7) Depression: Plan: Chronic - Continue Fluoxetine 40mg po daily - Continue Elavil 50mg po daily (8) Hyperlipidemia: Plan: - Continue Atorvastatin daily-will be placed on hold since starting Daptomycin (9) Asplenia: Plan: Noted (10) GERD (gastroesophageal reflux disease): Plan: - Protonix daily, Plan Patient also with moderate protein calorie malnutrition - consider boost supplements to increase protein Interventions as outlined above. Continue PT/OT. 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 Will d/w his . Case management following and working on dispo. Will need to ensure that his clinical picture is improving before he is ready for d/c anyway. Morning labs ordered. Plan d/w Dr. Mckinney. Admission and Anticipated Discharge Date Admission Date: November 09, 2021 Subjective Patient seen on daily rounds this morning. Pt noted to have a fever of 37.7C this AM with associated tachycardia. Pt reports not feeling feverish this AM. He is awake, alert, oriented and conversing appropriately. Denies chest pain, dyspn ea, n/v/d, headache, abd pain. 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 Review of Systems Review of Systems: All systems reviewed and are unremarkable except as noted in HPI and below. Denies chills, fatigue, headache, nasal congestion, sore throat, cough, chest pain, shortness of breath, palpitations, orthopnea, PND, abdominal pain, n/v/d, constipation, dysuria, hematuria, frequency, back pain, joint pain or swelling, easy bruising or bleeding, skin lesions or rashes. Physical Exam Physical Exam: GENERAL: 61 yo Well-developed, well-nourished but thin WM. NAD. LUNGS: Clear to auscultation bilaterally. No W/R/R. CARDIOVASCULAR: Regular rate and rhythm. No M/G/R. No JVD. ABDOMEN: Soft, non-tender and non-distended. BS normoactive x 4 quad. : Camp catheter in place, cloudy pale yellow with gross sediment noted in tubing EXTREMITIES: No edema. Non-tender. Peripheral pulses +2/4. NEUROLOGIC: A&O x3. PSYCHIATRIC: Cooperative. Appropriate mood and affect. SKIN: Warm, dry, intact. No rashes or lesions. Results & Data Results & Data ([facility]) Vital Signs (Past 12 Hours) Vital Signs Temp Pulse Resp BP Pulse Ox O2 Del Method 11/16/21 06:23 37.7 C H 105 H 20 151/94 H 97 Room Air Laboratory Results 11/16/21 08:09 11/16/21 08:09 PG Care Time/CCT Total # of Minutes Spent Total Time Spent with Patient: Total time spent is greater than 50% in coordination of care (as documented) at patient's floor/unit and/or counseling patient: Coding Level of Care Code 56578 Subseq Hosp Care Lvl 3 Diagnoses Leukocytosis D72.829 Sepsis secondary to UTI A41.9; N39.0 AMS (altered mental status) R41.82 Altered mental status type: unspecified Displacement of indwelling ureteral stent T83.122A Encounter type: initial encounter Fecal impaction K56.41 Acute hepatic encephalopathy K72.00 Depression F32.9 Hyperlipidemia E78.5 Asplenia Q89.01 GERD (gastroesophageal reflux disease) K21.9 Esophagitis presence: without esophagitis (1) AMS (altered mental status) Altered mental status type: unspecified Qualified Code(s): R41.82 - Altered mental status, unspecified (2) Displacement of indwelling ureteral stent Encounter type: initial encounter Qualified Code(s): T83.122A - Displacement of indwelling ureteral stent, initial encounter (3) GERD (gastroesophageal reflux disease) Esophagitis presence: without esophagitis Qualified Code(s): K21.9 - Gastro-esophageal reflux disease without esophagitis
[2021-11-16] MEDS: DAPTOmycin 300 MG in SYRINGE 0 ML IV SCH (12:49)
[2021-11-16] MEDS: ACETAMINOPHEN 325 MG TAB PO PRN (18:13)
[2021-11-16] MEDS: MELATONIN 3 MG TAB PO PRN (22:15)
[2021-11-17 07:58] LABS: BUN Creatinine Ratio 13.5 (10-20); Calcium 7.7 mg/dl (8.5-10.1); Creatinine Clr Calc Pharmacy 100.6 ml/min; Est GFR (African American) 116.2 ml/min; Est GFR (Non-African American) 100.3 ml/min; Potassium 3.7 mmol/L (3.5-5.1)
[2021-11-17] MEDS: oxyCODONE/ACETAMINOPHEN 10-325 TAB PO PRN ×3 (09:14→23:44)
[2021-11-17] MEDS: THIAMINE HCL 200 MG in SODIUM CHLORIDE 0.9% 50 ML IV SCH (09:16)
[2021-11-17] MEDS: LINACLOTIDE 145 MCG CAPSULE PO SCH (09:17)
[2021-11-17] MEDS: FLUoxetine HCL 20 MG CAP PO SCH (09:17)
[2021-11-17] MEDS: SENNA 8.6 MG TAB PO SCH ×2 (09:17→21:25)
[2021-11-17] MEDS: ASPIRIN 81 MG ECTAB PO SCH (09:17)
[2021-11-17] MEDS: PANTOprazole 40 MG TAB PO SCH (09:17)
[2021-11-17] MEDS: LACTULOSE SYRUP 20 GM/30 ML UDC PO SCH ×4 (09:18→21:25)
[2021-11-17] MEDS: NYSTATIN OINT 15 GM TUBE EXT SCH ×2 (09:18→21:25)
[2021-11-17] MEDS: cefTRIAXone SODIUM 2,000 MG in DEXTROSE 5% 50 ML IV SCH (09:39)
[2021-11-17 10:44] LABS: Basophils # (auto) 0.22 K/uL (0-0.2); Basophils % (auto) 1.3 %; Eosinophils # (auto) 0.38 K/uL (0-0.50); Eosinophils % (auto) 2.2 %; Hematocrit (blood only) 28.5 % (40.1-51.0); Hemoglobin 9.1 g/dl (14.0-18.0); Immature Granulocytes # (auto) 0.14 K/uL (0.00-0.02); Immature Granulocytes % (auto) 0.8 %; Lymphocytes # (auto) 1.57 K/uL (1.2-3.4); Lymphocytes % (auto) 9.2 %; Mean Corpuscular Hgb Conc 31.9 g/dL (32.0-36.0); Mean Corpuscular Volume 90.8 fL (80.0-100.0); Mean Platelet Volume 9.2 fL (9.4-12.4); Monocytes % (auto) 8.8 %; Neutrophils # (auto) 13.18 K/uL (1.4-6.5); Neutrophils % (auto) 77.7 %; Platelet Count 607 K/uL (130-400); RDW Coefficient of Variation 16.5 % (11.5-14.5); RDW Standard Deviation 53.5 fL (36.4-46.3); Red Blood Count 3.14 M/uL (4.63-6.08); White Blood Count 16.99 K/ul (4.8-10.8)
--- NOTE | 2021-11-17 13:10 | Hospitalist Progress Note ---
Date of Service November 17, 2021 Assessment & Plan (1) Leukocytosis: Plan: Uptrending leukocytosis with fever and associated tachycardia - Pt with recent sepsis syndrome d/t CAUTI - Currently on Rocephin alone - Obtained repeat UA, urine culture, and blood cultures - Procal ordered to be repeated this morning-has come down significantly since admission to 0.58, will trend in 24 hours - Concerned that there is a bacteria not adequately covered at this time, d/w p harmacy, started back on Daptomycin on 11/16 * Clinical improvement noted, likely missing coverage for Enterococcus based on his history * WBC trending down and no further fevers * Blood cultures NGTD, and urine culture isolating charity (2) Sepsis secondary to UTI: Plan: Sepsis secondary to CAUTI w/ metabolic encephalopathy - Procal 19.77, leukocytosis on ceftriaxone and vancomycin, there are gram negative bacilli in blood and urine, blood Providencia, urine with multiple organisms seen - Urology consulted s/p Stent Exchange (Bilateral) by Dr. Mirza 11/10 - PT/OT consulted - more alert/oriented after disimpaction/abx and stent exchange - Antibiotics narrowed to Ceftriaxone alone 2g IV daily, today day #6, see above re: abx (3) AMS (altered mental status): Plan: - metabolic and hepatic encephalopathy no good reason for elevated ammonia, liver looked normal on ct with persistent confusion - recheck ammonia is normal on 11/13 - CT head negative on admission - Tx outlined above for UTI/fecal impaction, maybe more of a prolonged metabolic encephalopathy - Added IV Thiamine and per prior documentation seems to have shown improvement since adding this (4) Displacement of indwelling ureteral stent: Plan: Patient with chronic bilateral hydronephrosis with ureteral stents in place. He follows with urology. CT of the abdomen today revealed interval displacement of the left nephroureteral stent, the proximal component now is in the mid ureter. Also with bilateral hydronephrosis/hydroureter. UA with 4+ bacteria. Urology consulted s/p stent exchange 11/10, monitor urine cx and continue abx as outlined (5) Fecal impaction: Plan: s/p disimpaction performed in the ER with removal of a large stool ball. - Continue Linzess 145mcg po daily, Senna 25.8mg po BID, Dulcolax [place] daily PRN, miralax prn - Continue Lactulose QID - titrate to 2-3 soft BMs daily (6) Acute hepatic encephalopathy: Plan: Patient with hyperammonemia, ZP9=110. - No known hepatic disease. Normal liver morphology on CT. - resolved ? etiology will send B1 level and start thiamine in case is thiamine deficiency - Repeat LFTs in AM 11/11 are normal, repeat ammonia normal on 11/13 - Lactulose QID - titrate to 2-3 soft BMs daily (7) Depression: Plan: Chronic - Continue Fluoxetine 40mg po daily - Continue Elavil 50mg po daily (8) Hyperlipidemia: Plan: - Continue Atorvastatin daily-will be placed on hold since starting Daptomycin (9) Asplenia: Plan: Noted (10) GERD (gastroesophageal reflux disease): Plan: - Protonix daily Plan Patient also with moderate protein calorie malnutrition - RD consulted, will make dietary recommendations to boost protein Interventions as outlined above. Continue PT/OT. Case management following and working on dispo. Clinical picture is improving. Morning labs ordered. Plan d/w Dr. Mckinney. Admission and Anticipated Discharge Date Admission Date: November 09, 2021 Subjective Patient seen on daily rounds this morning. He is awake, alert, oriented and conversing appropriately. Denies chest pain, dyspnea, n/v/d, headache, abd pain. No further fevers over last 24 hours. Review of Systems Review of Systems: All systems reviewed and are unremarkable except as noted in HPI and below. Denies chills, fatigue, headache, nasal congestion, sore throat, cough, chest pain, shortness of breath, palpitations, orthopnea, PND, abdominal pain, n/v/d, constipation, dysuria, hematuria, frequency, back pain, joint pain or swelling, easy bruising or bleeding, skin lesions or rashes. Physical Exam Physical Exam: GENERAL: 61 yo Well-developed, well-nourished but thin WM. NAD. LUNGS: Clear to auscultation bilaterally. No W/R/R. CARDIOVASCULAR: Regular rate and rhythm. No M/G/R. No JVD. ABDOMEN: Soft, non-tender and non-distended. BS normoactive x 4 quad. : Camp catheter in place, cloudy pale yellow with gross sediment noted in tubing EXTREMITIES: No edema. Non-tender. Peripheral pulses +2/4. NEUROLOGIC: A&O x3. PSYCHIATRIC: Cooperative. Appropriate mood and affect. SKIN: Warm, dry, intact. No rashes or lesions. Results & Data Results & Data ([facility]) Vital Signs (Past 12 Hours) Vital Signs Temp Pulse Resp BP Pulse Ox 11/17/21 07:45 36.9 C 93 H 16 127/76 95 Laboratory Results 11/17/21 06:53 11/17/21 06:53 PG Care Time/CCT Total # of Minutes Spent Total Time Spent with Patient: Total time spent is greater than 50% in coordination of care (as documented) at patient's floor/unit and/or counseling patient: Coding Level of Care Code 43548 Subseq Hosp Care Lvl 2 Diagnoses Leukocytosis D72.829 Sepsis secondary to UTI A41.9; N39.0 AMS (altered mental status) R41.82 Altered mental status type: unspecified Displacement of indwelling ureteral stent T83.122A Encounter type: initial encounter Fecal impaction K56.41 Acute hepatic encephalopathy K72.00 Depression F32.9 Hyperlipidemia E78.5 Asplenia Q89.01 GERD (gastroesophageal reflux disease) K21.9 Esophagitis presence: without esophagitis (1) AMS (altered mental status) Altered mental status type: unspecified Qualified Code(s): R41.82 - Altered mental status, unspecified (2) Displacement of indwelling ureteral stent Encounter type: initial encounter Qualified Code(s): T83.122A - Displacement of indwelling ureteral stent, initial encounter (3) GERD (gastroesophageal reflux disease) Esophagitis presence: without esophagitis Qualified Code(s): K21.9 - Gastro- esophageal reflux disease without esophagitis
[2021-11-17] MEDS: DAPTOmycin 300 MG in SYRINGE 0 ML IV SCH (13:26)
[2021-11-17] MEDS: MELATONIN 3 MG TAB PO PRN (21:25)
[2021-11-18] MEDS: ACETAMINOPHEN 325 MG TAB PO PRN (08:17)
[2021-11-18 09:18] LABS: Basophils # (auto) 0.22 K/uL (0-0.2); Basophils % (auto) 1.7 %; Eosinophils % (auto) 4.7 %; Hematocrit (blood only) 26.1 % (40.1-51.0); Hemoglobin 8.3 g/dl (14.0-18.0); Immature Granulocytes # (auto) 0.08 K/uL (0.00-0.02); Immature Granulocytes % (auto) 0.6 %; Lymphocytes # (auto) 1.94 K/uL (1.2-3.4); Lymphocytes % (auto) 15.3 %; Mean Corpuscular Hemoglobin 28.7 pg (25.0-34.0); Mean Corpuscular Hgb Conc 31.8 g/dL (32.0-36.0); Mean Corpuscular Volume 90.3 fL (80.0-100.0); Monocytes # (auto) 1.06 K/uL (0.24-0.82); Monocytes % (auto) 8.3 %; Neutrophils % (auto) 69.4 %; Platelet Count 683 K/uL (130-400); RDW Coefficient of Variation 16.6 % (11.5-14.5); RDW Standard Deviation 54.3 fL (36.4-46.3); Red Blood Count 2.89 M/uL (4.63-6.08)
[2021-11-18 09:21] LABS: BUN Creatinine Ratio 15.5 (10-20); Calcium 7.6 mg/dl (8.5-10.1); Creatinine Clr Calc Pharmacy 128.4 ml/min; Est GFR (African American) 128.4 ml/min; Est GFR (Non-African American) 110.8 ml/min; Potassium 3.7 mmol/L (3.5-5.1)
[2021-11-18] MEDS: LACTULOSE SYRUP 20 GM/30 ML UDC PO SCH ×4 (09:34→21:30)
[2021-11-18] MEDS: THIAMINE HCL 200 MG in SODIUM CHLORIDE 0.9% 50 ML IV SCH (09:34)
[2021-11-18] MEDS: LINACLOTIDE 145 MCG CAPSULE PO SCH (09:35)
[2021-11-18] MEDS: PANTOprazole 40 MG TAB PO SCH (09:35)
[2021-11-18] MEDS: ASPIRIN 81 MG ECTAB PO SCH (09:35)
[2021-11-18] MEDS: SENNA 8.6 MG TAB PO SCH ×2 (09:35→21:30)
[2021-11-18] MEDS: FLUoxetine HCL 20 MG CAP PO SCH (09:35)
[2021-11-18] MEDS: NYSTATIN OINT 15 GM TUBE EXT SCH ×2 (09:35→21:30)
[2021-11-18] MEDS: cefTRIAXone SODIUM 2,000 MG in DEXTROSE 5% 50 ML IV SCH (09:53)
--- NOTE | 2021-11-18 13:38 | Hospitalist Progress Note ---
Date of Service November 18, 2021 Assessment & Plan (1) Leukocytosis: Plan: Uptrending leukocytosis with fever and associated tachycardia noted 11/16 - Pt with recent sepsis syndrome d/t CAUTI - De-escalated to Rocephin alone as of 11/15 - Obtained repeat UA, urine culture, and blood cultures - Procal ordered to be repeated this morning-has come down significantly since admission to 0.58, will trend in 24 hours - Concerned that there is a bacteria not adequately covered at this time, d/w pharmacy, started back on Daptomycin on 11/16 * Clinical improvement noted, likely missing coverage for Enterococcus based on his history * WBC trending down and no further fevers * Blood cultures NGTD, and urine culture isolating charity - Continue Rocephin + Dapto, would complete minimum of 10 days total of both (2) Sepsis secondary to UTI: Plan: Sepsis secondary to CAUTI w/ metabolic encephalopathy - Procal 19.77, leukocytosis on ceftriaxone and vancomycin, there are gram negative bacilli in blood and urine, blood Providencia, urine with multiple organisms seen - Urology consulted s/p Stent Exchange (Bilateral) by Dr. Mirza 11/10 - more alert/oriented after disimpaction/abx and stent exchange - Antibiotics narrowed to Ceftriaxone alone 2g IV daily, today day #7, see above re: abx (3) AMS (altered mental status): Plan: - metabolic and hepatic encephalopathy no good reason for elevated ammonia, liver looked normal on ct with persistent confusion - recheck ammonia is normal on 11/13 - CT head negative on admission - Tx outlined above for UTI/fecal impaction, maybe more of a prolonged metabolic encephalopathy - Added IV Thiamine and per prior documentation seems to have shown improvement since adding this RESOLVED (4) Displacement of indwelling ureteral stent: Plan: Patient with chronic bilateral hydronephrosis with ureteral stents in place. He follows with urology. CT of the abdomen today revealed interval displacement of the left nephroureteral stent, the proximal component now is in the mid ureter. Also with bilateral hydronephrosis/hydroureter. UA with 4+ bacteria. Urology consulted s/p stent exchange 11/10, monitor urine cx and continue abx as outlined (5) Fecal impaction: Plan: s/p disimpaction performed in the ER with removal of a large stool ball. - Continue Linzess 145mcg po daily, Senna 25.8mg po BID, Dulcolax [place] daily PRN, miralax prn - Continue Lactulose QID - titrate to 2-3 soft BMs daily RESOLVED (6) Acute hepatic encephalopathy: Plan: Patient with hyperammonemia, PK6=410. - No known hepatic disease. Normal liver morphology on CT. - resolved ? etiology will send B1 level and start thiamine in case is thiamine deficiency - Repeat LFTs in AM 11/11 are normal, repeat ammonia normal on 11/13 - Lactulose QID - titrate to 2-3 soft BMs daily RESOLVED (7) Depression: Plan: Chronic - Continue Fluoxetine 40mg po daily - Continue Elavil 50mg po daily (8) Hyperlipidemia: Plan: - Continue Atorvastatin daily-will be placed on hold since starting Daptomycin (9) Asplenia: Plan: Noted (10) GERD (gastroesophageal reflux disease): Plan: - Protonix daily Plan Patient also with moderate protein calorie malnutrition - RD consulted, will make dietary recommendations to boost protein Interventions as outlined above. Continue PT/OT. Case management following and working on dispo. Clinical picture is improving. Morning labs ordered. Stable for dc whenever bed is found/pt accepted/etc. Plan d/w Dr. Mckinney. Admission and Anticipated Discharge Date Admission Date: November 09, 2021 Subjective Patient seen on daily rounds this morning. He has no complaints/concerns this morning. Case management continues to work on placement, however, this is complicated by patient and 's disagreement on short term versus [facility] stay. Review of Systems Review of Systems: All systems reviewed and are unremarkable except as noted in HPI and below. Denies chills, fatigue, headache, nasal congestion, sore throat, cough, chest pain, shortness of breath, palpitations, orthopnea, PND, abdominal pain, n/v/d, constipation, dysuria, hematuria, frequency, back pain, joint pain or swelling, easy bruising or bleeding, skin lesions or rashes. Physical Exam Physical Exam: GENERAL: 61 yo Well-developed, well-nourished but thin WM. NAD. LUNGS: Clear to auscultation bilaterally. No W/R/R. CARDIOVASCULAR: Regular rate and rhythm. No M/G/R. No JVD. ABDOMEN: Soft, non-tender and non-distended. BS normoactive x 4 quad. : Camp catheter in place, cloudy pale yellow with gross sediment noted in tubing EXTREMITIES: No edema. Non-tender. Peripheral pulses +2/4. NEUROLOGIC: A&O x3. PSYCHIATRIC: Cooperative. Appropriate mood and affect. SKIN: Warm, dry, intact. No rashes or lesions. PG Care Time/CCT Total # of Minutes Spent Total Time Spent with Patient: Total time spent is greater than 50% in coordination of care (as documented) at patient's floor/unit and/or counseling patient: Coding Level of Care Code 58606 Subseq Hosp Care Lvl 2 Diagnoses Leukocytosis D72.829 Sepsis secondary to UTI A41.9; N39.0 AMS (altered mental status) R41.82 Altered mental status type: unspecified Displacement of indwelling ureteral stent T83.122A Encounter type: initial encounter Fecal impaction K56.41 Acute hepatic encephalopathy K72.00 Depression F32.9 Hyperlipidemia E78.5 Asplenia Q89.01 GERD (gastroesophageal reflux disease) K21.9 Esophagitis presence: without esophagitis (1) AMS (altered mental status) Altered mental status type: unspecified Qualified Code(s): R41.82 - Altered mental status, unspecified (2) Displacement of indwelling ureteral stent Encounter type: initial encounter Qualified Code(s): T83.122A - Displacement of indwelling ureteral stent, initial encounter (3) GERD (gastroesophageal reflux disease) Esophagitis presence: without esophagitis Qualified Code(s): K21.9 - Gastro- esophageal reflux disease without esophagitis
[2021-11-18] MEDS: DAPTOmycin 300 MG in SYRINGE 0 ML IV SCH (13:44)
[2021-11-18] MEDS: oxyCODONE/ACETAMINOPHEN 10-325 TAB PO PRN ×2 (16:19→22:30)
[2021-11-18] MEDS: MELATONIN 3 MG TAB PO PRN (22:31)
[2021-11-19] MEDS ORDERED: diphenhydrAMINE HCL 25 MG/10 ML UDC PO ONE (03:03)
[2021-11-19 07:47] LABS: Basophils # (auto) 0.25 K/uL (0-0.2); Basophils % (auto) 1.8 %; Eosinophils # (auto) 0.52 K/uL (0-0.50); Eosinophils % (auto) 3.6 %; Hematocrit (blood only) 25.5 % (40.1-51.0); Hemoglobin 8.2 g/dl (14.0-18.0); Immature Granulocytes % (auto) 0.7 %; Lymphocytes # (auto) 2.16 K/uL (1.2-3.4); Lymphocytes % (auto) 15.1 %; Mean Corpuscular Hemoglobin 29.3 pg (25.0-34.0); Mean Corpuscular Hgb Conc 32.2 g/dL (32.0-36.0); Mean Corpuscular Volume 91.1 fL (80.0-100.0); Mean Platelet Volume 8.9 fL (9.4-12.4); Monocytes # (auto) 1.22 K/uL (0.24-0.82); Monocytes % (auto) 8.6 %; Neutrophils # (auto) 10.01 K/uL (1.4-6.5); Neutrophils % (auto) 70.2 %; Platelet Count 713 K/uL (130-400); RDW Coefficient of Variation 16.9 % (11.5-14.5); RDW Standard Deviation 55.1 fL (36.4-46.3); White Blood Count 14.26 K/ul (4.8-10.8)
[2021-11-19 08:12] LABS: BUN Creatinine Ratio 16.1 (10-20); Calcium 7.7 mg/dl (8.5-10.1); Creatinine Clr Calc Pharmacy 132.9 ml/min; Est GFR (African American) 130.3 ml/min; Est GFR (Non-African American) 112.4 ml/min
[2021-11-19] MEDS: ASPIRIN 81 MG ECTAB PO SCH (09:14)
[2021-11-19] MEDS: LINACLOTIDE 145 MCG CAPSULE PO SCH (09:14)
[2021-11-19] MEDS: FLUoxetine HCL 20 MG CAP PO SCH (09:14)
[2021-11-19] MEDS: PANTOprazole 40 MG TAB PO SCH (09:14)
[2021-11-19] MEDS: oxyCODONE/ACETAMINOPHEN 10-325 TAB PO PRN ×3 (09:15→22:19)
[2021-11-19] MEDS: SENNA 8.6 MG TAB PO SCH ×2 (09:15→20:00)
[2021-11-19] MEDS: LACTULOSE SYRUP 20 GM/30 ML UDC PO SCH ×4 (09:17→20:00)
[2021-11-19] MEDS: NYSTATIN OINT 15 GM TUBE EXT SCH ×2 (09:17→20:00)
[2021-11-19] MEDS: THIAMINE HCL 200 MG in SODIUM CHLORIDE 0.9% 50 ML IV SCH (09:56)
[2021-11-19] MEDS: cefTRIAXone SODIUM 2,000 MG in DEXTROSE 5% 50 ML IV SCH ×2 (10:03→12:55)
--- NOTE | 2021-11-19 12:19 | Hospitalist Progress Note ---
Date of Service November 19, 2021 Assessment & Plan (1) Leukocytosis: Plan: Uptrending leukocytosis with fever and associated tachycardia noted 11/16 - Pt with recent sepsis syndrome d/t CAUTI - De-escalated to Rocephin alone as of 11/15 - Obtained repeat UA, urine culture, and blood cultures - Procal repeated 11/17-has come down significantly since admission to 0.58, repeat 11/19 is WNL at 0.15 - Concerned that there is a bacteria not adequately covered at this time, d/w pharmacy, started back on Daptomycin on 11/16 * Clinical improvement noted, likely missing coverage for Enterococcus based on his history * WBC trending down and no further fevers * Blood cultures NGTD, and urine culture isolating charity - Continue Rocephin + Dapto, would complete minimum of 10 days total of both - Although wbc trending back up, procal is WNL and afebrile >48 hours. Will hold off making any further abx adjustments at this time. (2) Sepsis secondary to UTI: Plan: Sepsis secondary to CAUTI w/ metabolic encephalopathy - Procal 19.77, leukocytosis on ceftriaxone and vancomycin, there are gram negative bacilli in blood and urine, blood Providencia, urine with multiple organisms seen - Urology consulted s/p Stent Exchange (Bilateral) by Dr. Mirza 11/10 - more alert/oriented after disimpaction/abx and stent exchange - Antibiotics narrowed to Ceftriaxone alone 2g IV daily, today day #8, see above re: abx (3) AMS (altered mental status): Plan: - metabolic and hepatic encephalopathy no good reason for elevated ammonia, liver looked normal on ct with persistent confusion - recheck ammonia is normal on 11/13 - CT head negative on admission - Tx outlined above for UTI/fecal impaction, maybe more of a prolonged metabolic encephalopathy - Added IV Thiamine and per prior documentation seems to have shown improvement since adding this RESOLVED (4) Displacement of indwelling ureteral stent: Plan: Patient with chronic bilateral hydronephrosis with ureteral stents in place. He follows with urology. CT of the abdomen today revealed interval displacement of the left nephroureteral stent, the proximal component now is in the mid ureter. Also with bilateral hydronephrosis/hydroureter. UA with 4+ bacteria. Urology consulted s/p stent exchange 11/10, monitor urine cx and continue abx as outlined (5) Fecal impaction: Plan: s/p disimpaction performed in the ER with removal of a large stool ball. - Continue Linzess 145mcg po daily, Senna 25.8mg po BID, Dulcolax CT daily PRN, miralax prn - Continue Lactulose QID - titrate to 2-3 soft BMs daily RESOLVED (6) Acute hepatic encephalopathy: Plan: Patient with hyperammonemia, US5=527. - No known hepatic disease. Normal liver morphology on CT. - resolved ? etiology will send B1 level and start thiamine in case is thiamine deficiency - Repeat LFTs in AM 11/11 are normal, repeat ammonia normal on 11/13 - Lactulose QID - titrate to 2-3 soft BMs daily RESOLVED (7) Depression: Plan: Chronic - Continue Fluoxetine 40mg po daily - Continue Elavil 50mg po daily (8) Hyperlipidemia: Plan: - Continue Atorvastatin daily-will be placed on hold since starting Daptomycin (9) Asplenia: Plan: Noted (10) GERD (gastroesophageal reflux disease): Plan: - Protonix daily Plan Patient also with moderate protein calorie malnutrition - RD consulted, will lorraine e dietary recommendations to boost protein Interventions as outlined above. Continue PT/OT. Case management following and working on dispo. Medically stable for dc whenever bed is found/pt accepted/etc. Plan d/w Dr. Mckinney. Admission and Anticipated Discharge Date Admission Date: November 09, 2021 Subjective Patient seen on daily rounds this morning. He has no complaints/concerns this morning. Afebrile since 11/16. Case management continues to work on placement, however, this is complicated by patient and 's disagreement on short term versus [facility]ci stay. Review of Systems Review of Systems: All systems reviewed and are unremarkable except as noted in HPI and below. Denies chills, fatigue, headache, nasal congestion, sore throat, cough, chest pain, shortness of breath, palpitations, orthopnea, PND, abdominal pain, n/v/d, constipation, dysuria, hematuria, frequency, back pain, joint pain or swelling, easy bruising or bleeding, skin lesions or rashes. Physical Exam Physical Exam: GENERAL: 61 yo Well-developed, well-nourished but thin WM. NAD. LUNGS: Clear to auscultation bilaterally. No W/R/R. CARDIOVASCULAR: Regular rate and rhythm. No M/G/R. No JVD. ABDOMEN: Soft, non-tender and non-distended. BS normoactive x 4 quad. : Camp catheter in place, cloudy pale yellow with gross sediment noted in tubing EXTREMITIES: 1+ edema. Peripheral pulses +2/4. NEUROLOGIC: A&O x3. PSYCHIATRIC: Cooperative. Appropriate mood and affect. SKIN: Warm, dry, intact. No rashes or lesions. Results & Data Results & Data ([facility]) Vital Signs (Past 12 Hours) Vital Signs Temp Pulse Resp BP Pulse Ox 11/19/21 10:17 36.8 C 94 H 16 121/65 99 Laboratory Results 11/19/21 07:34 11/19/21 07:34 PG Care Time/CCT Total # of Minutes Spent Total Time Spent with Patient: Total time spent is greater than 50% in coordination of care (as documented) at patient's floor/unit and/or counseling patient: Coding Level of Care Code 48434 Subseq Hosp Care Lvl 2 Diagnoses Leukocytosis D72.829 Sepsis secondary to UTI A41.9; N39.0 AMS (altered mental status) R41.82 Altered mental status type: unspecified Displacement of indwelling ureteral stent T83.122A Encounter type: initial encounter Fecal impaction K56.41 Acute hepatic encephalopathy K72.00 Depression F32.9 Hyperlipidemia E78.5 Asplenia Q89.01 GERD (gastroesophageal reflux disease) K21.9 Esophagitis presence: without esophagitis (1) AMS (altered mental status) Altered mental status type: unspecified Qualified Code(s): R41.82 - Altered mental status, unspecified (2) Displacement of indwelling ureteral stent Encounter type: initial encounter Qualified Code(s): T83.122A - Displacement of indwelling ureteral stent, initial encounter (3) GERD (gastroesophageal reflux disease) Esophagitis presence: without esophagitis Qualified Code(s): K21.9 - Gastro- esophageal reflux disease without esophagitis
[2021-11-19] MEDS: DAPTOmycin 300 MG in SYRINGE 0 ML IV SCH (14:16)
[2021-11-19] MEDS: MELATONIN 3 MG TAB PO PRN (20:05)
[2021-11-19] MEDS ORDERED: CEFEPIME 2,000 MG in SYRINGE 0 ML IV SCH (21:00)
[2021-11-20] MEDS: LACTULOSE SYRUP 20 GM/30 ML UDC PO SCH ×4 (08:16→20:43)
[2021-11-20] MEDS: LINACLOTIDE 145 MCG CAPSULE PO SCH (08:16)
[2021-11-20] MEDS: FLUoxetine HCL 20 MG CAP PO SCH (08:16)
[2021-11-20] MEDS: SENNA 8.6 MG TAB PO SCH ×2 (08:16→20:43)
[2021-11-20] MEDS: PANTOprazole 40 MG TAB PO SCH (08:16)
[2021-11-20] MEDS: ASPIRIN 81 MG ECTAB PO SCH (08:16)
[2021-11-20] MEDS: oxyCODONE/ACETAMINOPHEN 10-325 TAB PO PRN ×3 (08:16→20:44)
[2021-11-20] MEDS: NYSTATIN OINT 15 GM TUBE EXT SCH ×2 (08:27→20:43)
[2021-11-20] MEDS: THIAMINE HCL 200 MG in SODIUM CHLORIDE 0.9% 50 ML IV SCH (09:48)
[2021-11-20] MEDS: cefTRIAXone SODIUM 2,000 MG in DEXTROSE 5% 50 ML IV SCH (10:09)
--- NOTE | 2021-11-20 12:04 | Hospitalist Progress Note ---
Date of Service November 20, 2021 Assessment & Plan (1) Leukocytosis: Plan: Uptrending leukocytosis with fever and associated tachycardia noted 11/16 - Pt with recent sepsis syndrome d/t CAUTI - De-escalated to Rocephin alone as of 11/15 - Obtained repeat UA, urine culture, and blood cultures - Procal repeated 11/17-has come down significantly since admission to 0.58, repeat 11/19 is WNL at 0.15 - Concerned that there is a bacteria not adequately covered at this time, d/w pharmacy, started back on Daptomycin on 11/16 * Clinical improvement noted, ? missing coverage for Enterococcus based on his history * No further fevers since 11/16 * Blood cultures NGTD, and urine culture isolating charity - Although wbc trending back up, procal is WNL and afebrile >48 hours. Will hold off making any further abx adjustments at this time. - Will stop Daptomycin this afternoon after 5th dose - Repeat labs ordered for 11/21 (2) Sepsis secondary to UTI: Plan: Sepsis secondary to CAUTI w/ metabolic encephalopathy - Procal 19.77, leukocytosis on ceftriaxone and vancomycin, there are gram negative bacilli in blood and urine, blood Providencia, urine with multiple organisms seen - Urology consulted s/p Stent Exchange (Bilateral) by Dr. Mirza 11/10 - more alert/oriented after disimpaction/abx and stent exchange - Antibiotics narrowed to Ceftriaxone alone 2g IV daily, today day #9, see above re: abx SEPSIS RESOLVED (3) AMS (altered mental status): Plan: - metabolic and hepatic encephalopathy no good reason for elevated ammonia, liver looked normal on ct with persistent confusion - recheck ammonia is normal on 11/13 - CT head negative on admission - Tx outlined above for UTI/fecal impaction, maybe more of a prolonged metabolic encephalopathy - Added IV Thiamine and per prior documentation seems to have shown improvement since adding this RESOLVED (4) Displacement of indwelling ureteral stent: Plan: Patient with chronic bilateral hydronephrosis with ureteral stents in place. He follows with urology. CT of the abdomen today revealed interval displacement of the left nephroureteral stent, the proximal component now is in the mid ureter. Also with bilateral hydronephrosis/hydroureter. UA with 4+ bacteria. Urology consulted s/p stent exchange 11/10, monitor urine cx and continue abx as outlined (5) Fecal impaction: Plan: s/p disimpaction performed in the ER with removal of a large stool ball. - Continue Linzess 145mcg po daily, Senna 25.8mg po BID, Dulcolax HI daily PRN, miralax prn - Continue Lactulose QID - titrate to 2-3 soft BMs daily RESOLVED (6) Acute hepatic encephalopathy: Plan: Patient with hyperammonemia, JN1=420. - No known hepatic disease. Normal liver morphology on CT. - resolved ? etiology will send B1 level and start thiamine in case is thiamine deficiency - Repeat LFTs in AM 11/11 are normal, repeat ammonia normal on 11/13 - Lactulose QID - titrate to 2-3 soft BMs daily RESOLVED (7) Depression: Plan: Chronic - Continue Fluoxetine 40mg po daily - Continue Elavil 50mg po daily - appears this was placed on hold ? (8) Hyperlipidemia: Plan: - Continue Atorvastatin daily-will be placed on hold since starting Daptomycin (9) Asplenia: Plan: Noted (10) GERD (gastroesophageal reflux disease): Plan: - Protonix daily Plan Patient also with moderate protein calorie malnutrition - RD consulted, will make dietary recommendations to boost protein Interventions as outlined above. Continue PT/OT. Case management following and working on dispo. Medically stable for dc whenever bed is found/pt accepted/etc. Plan to be d/w DR. Trevino. Admission and Anticipated Discharge Date Admission Date: November 09, 2021 Subjective Patient seen on daily rounds this morning. He has no complaints/concerns this morning. Case management continues to work on placement, however, this is complicated by patient and 's disagreement on short term versus residential stay. Review of Systems Review of Systems: All systems reviewed and are unremarkable except as noted in HPI and below. Denies chills, fatigue, headache, nasal congestion, sore throat, cough, chest pain, shortness of breath, palpitations, orthopnea, PND, abdominal pain, n/v/d, constipation, dysuria, hematuria, frequency, back pain, joint pain or swelling, easy bruising or bleeding, skin lesions or rashes. Physical Exam Physical Exam: GENERAL: 61 yo Well-developed, well-nourished but thin WM. NAD. LUNGS: Clear to auscultation bilaterally. No W/R/R. CARDIOVASCULAR: Regular rate and rhythm. No M/G/R. No JVD. ABDOMEN: Soft, non-tender and non-distended. BS normoactive x 4 quad. : Garrison catheter in place, pale yellow urine in garrison bag EXTREMITIES: 1+ edema. Peripheral pulses +2/4. NEUROLOGIC: A&O x3. PSYCHIATRIC: Cooperative. Appropriate mood and affect. SKIN: Warm, dry, intact. No rashes or lesions. Results & Data Results & Data ([facility]) Vital Signs (Past 12 Hours) Vital Signs Temp Pulse Resp BP Pulse Ox O2 Del Method 11/20/21 08:12 36.7 C 76 16 127/77 98 Room Air PG Care Time/CCT Total # of Minutes Spent Total Time Spent with Patient: Total time spent is greater than 50% in coordination of care (as documented) at patient's floor/unit and/or counseling patient: Coding Level of Care Code 07856 Subseq Hosp Care Lvl 2 Diagnoses Leukocytosis D72.829 Sepsis secondary to UTI A41.9; N39.0 AMS (altered mental status) R41.82 Altered mental status type: unspecified Displacement of indwelling ureteral stent T83.122A Encounter type: initial encounter Fecal impaction K56.41 Acute hepatic encephalopathy K72.00 Depression F32.9 Hyperlipidemia E78.5 Asplenia Q89.01 GERD (gastroesophageal reflux disease) K21.9 Esophagitis presence: without esophagitis (1) AMS (altered mental status) Altered mental status type: unspecified Qualified Code(s): R41.82 - Altered mental status, unspecified (2) Displacement of indwelling ureteral stent Encounter type: initial encounter Qualified Code(s): T83.122A - Displacement of indwelling ureteral stent, initial encounter (3) GERD (gastroesophageal reflux disease) Esophagitis presence: without esophagitis Qualified Code(s): K21.9 - Gastro- esophageal reflux disease without esophagitis
[2021-11-20] MEDS: DAPTOmycin 300 MG in SYRINGE 0 ML IV SCH (14:32)
[2021-11-20] MEDS: MELATONIN 3 MG TAB PO PRN (20:44)
[2021-11-21] MEDS: oxyCODONE/ACETAMINOPHEN 10-325 TAB PO PRN ×3 (05:23→18:26)
[2021-11-21 08:39] LABS: Basophils # (auto) 0.24 K/uL (0-0.2); Basophils % (auto) 2.6 %; Eosinophils # (auto) 0.38 K/uL (0-0.50); Eosinophils % (auto) 4.2 %; Hematocrit (blood only) 22.5 % (40.1-51.0); Hemoglobin 7.4 g/dl (14.0-18.0); Immature Granulocytes # (auto) 0.04 K/uL (0.00-0.02); Immature Granulocytes % (auto) 0.4 %; Lymphocytes # (auto) 1.57 K/uL (1.2-3.4); Lymphocytes % (auto) 17.2 %; Mean Corpuscular Hemoglobin 29.4 pg (25.0-34.0); Mean Corpuscular Hgb Conc 32.9 g/dL (32.0-36.0); Mean Corpuscular Volume 89.3 fL (80.0-100.0); Mean Platelet Volume 8.7 fL (9.4-12.4); Monocytes % (auto) 8.8 %; Neutrophils # (auto) 6.09 K/uL (1.4-6.5); Neutrophils % (auto) 66.8 %; Platelet Count 754 K/uL (130-400); RDW Coefficient of Variation 17.1 % (11.5-14.5); RDW Standard Deviation 53.9 fL (36.4-46.3); Red Blood Count 2.52 M/uL (4.63-6.08); White Blood Count 9.12 K/ul (4.8-10.8)
[2021-11-21] MEDS ORDERED: SODIUM CHLORIDE 0.9% 250 ML IV PRN (08:46)
[2021-11-21] MEDS ORDERED: diphenhydrAMINE 50 MG/ML VIAL IV ONE (08:46)
[2021-11-21] MEDS ORDERED: diphenhydrAMINE Capsule 25 MG CAP PO SCH (09:00)
[2021-11-21] MEDS ORDERED: ACETAMINOPHEN 325 MG TAB PO SCH (09:00)
[2021-11-21] MEDS: SENNA 8.6 MG TAB PO SCH ×2 (09:01→22:09)
[2021-11-21] MEDS: LACTULOSE SYRUP 20 GM/30 ML UDC PO SCH ×4 (09:01→22:09)
[2021-11-21] MEDS: LINACLOTIDE 145 MCG CAPSULE PO SCH (09:02)
[2021-11-21] MEDS: PANTOprazole 40 MG TAB PO SCH ×2 (09:03→22:09)
[2021-11-21] MEDS: ASPIRIN 81 MG ECTAB PO SCH (09:03)
[2021-11-21] MEDS: FLUoxetine HCL 20 MG CAP PO SCH (09:03)
[2021-11-21] MEDS: NYSTATIN OINT 15 GM TUBE EXT SCH ×2 (09:04→22:10)
[2021-11-21] MEDS: THIAMINE HCL 200 MG in SODIUM CHLORIDE 0.9% 50 ML IV SCH (09:11)
[2021-11-21] MEDS: cefTRIAXone SODIUM 2,000 MG in DEXTROSE 5% 50 ML IV SCH (09:11)
[2021-11-21 09:17] LABS: Hypochromasia Present; Target Cells 1+
[2021-11-21 09:18] LABS: BUN Creatinine Ratio 18.5 (10-20); Calcium 7.6 mg/dl (8.5-10.1); Creatinine Clr Calc Pharmacy 137.9 ml/min; Est GFR (African American) 132.3 ml/min; Est GFR (Non-African American) 114.1 ml/min; Potassium 3.1 mmol/L (3.5-5.1)
[2021-11-21] MEDS ORDERED: POTASSIUM CHLORIDE CRTAB 20 MEQ TABCR PO STA (12:03)
--- NOTE | 2021-11-21 12:17 | Hospitalist Progress Note ---
Date of Service November 21, 2021 Assessment & Plan (1) Anemia: Plan: Acute on chronic with h/o GI bleed, hgb 7.4 on 11/21 - heme check stool - T&C for 1 unit of PRBCs, will premedicate prior (consent already on chart from OR) - Repeat H&H at 1800 and cbc w/o diff in AM (2) Leukocytosis: Plan: Uptrending leukocytosis with fever and associated tachycardia noted 11/16 - Pt with recent sepsis syndrome d/t CAUTI - De-escalated to Rocephin alone as of 11/15 - Obtained repeat UA, urine culture, and blood cultures - Procal repeated 11/17-has come down significantly since admission to 0.58, repeat 11/19 is WNL at 0.15 - Concerned that there is a bacteria not adequately covered at this time, d/w pharmacy, started back on Daptomycin on 11/16 * Clinical improvement noted, ? missing coverage for Enterococcus based on his history * No further fevers since 11/16 * Blood cultures NGTD, and urine culture isolating charity - Although wbc trending back up, procal is WNL and afebrile >48 hours. Will hold off making any further abx adjustments at this time. - Stopped Daptomycin 11/20 after 5th dose - Repeat labs ordered for 11/21--wbc normalized RESOLVED (3) Sepsis secondary to UTI: Plan: Sepsis secondary to CAUTI w/ metabolic encephalopathy - Procal 19.77, leukocytosis on ceftriaxone and vancomycin, there are gram negative bacilli in blood and urine, blood Providencia, urine with multiple organisms seen - Urology consulted s/p Stent Exchange (Bilateral) by Dr. Mirza 11/10 - more alert/oriented after disimpaction/abx and stent exchange - Antibiotics narrowed to Ceftriaxone alone 2g IV daily, today day #9, see above re: abx SEPSIS/UTI RESOLVED (4) AMS (altered mental status): Plan: - metabolic and hepatic encephalopathy no good reason for elevated ammonia, l iver looked normal on ct with persistent confusion - recheck ammonia is normal on 11/13 - CT head negative on admission - Tx outlined above for UTI/fecal impaction, maybe more of a prolonged metabolic encephalopathy - Added IV Thiamine and per prior documentation seems to have shown improvement since adding this RESOLVED (5) Displacement of indwelling ureteral stent: Plan: Patient with chronic bilateral hydronephrosis with ureteral stents in place. He follows with urology. CT of the abdomen today revealed interval displacement of the left nephroureteral stent, the proximal component now is in the mid ureter. Also with bilateral hydronephrosis/hydroureter. UA with 4+ bacteria. Urology consulted s/p stent exchange 11/10, monitor urine cx and continue abx as outlined (6) Fecal impaction: Plan: s/p disimpaction performed in the ER with removal of a large stool ball. - Continue Linzess 145mcg po daily, Senna 25.8mg po BID, Dulcolax RI daily PRN, miralax prn - Continue Lactulose QID - titrate to 2-3 soft BMs daily RESOLVED (7) Acute hepatic encephalopathy: Plan: Patient with hyperammonemia, EI1=807. - No known hepatic disease. Normal liver morphology on CT. - resolved ? etiology will send B1 level and start thiamine in case is thiamine deficiency - Repeat LFTs in AM 11/11 are normal, repeat ammonia normal on 11/13 - Lactulose QID - titrate to 2-3 soft BMs daily RESOLVED (8) Depression: Plan: Chronic - Continue Fluoxetine 40mg po daily - Continue Elavil 50mg po daily (9) Hyperlipidemia: Plan: - Continue Atorvastatin daily (10) Asplenia: Plan: Noted (11) GERD (gastroesophageal reflux disease): Plan: - Continue Protonix daily Plan Patient also with moderate protein calorie malnutrition - RD consulted, will make dietary recommendations to boost protein Interventions as outlined above. Potassium replacement ordered for hypokalemia of 3.1. Repeat labs ordered for 11/22. Continue PT/OT. Case management following and working on dispo. Plan to be d/w Dr. Trevino. Admission and Anticipated Discharge Date Admission Date: November 09, 2021 Subjective Patient seen on daily rounds this morning. He is feeling well this morning. Denies abd pain, nausea, vomiting, chest pain or dyspnea. No lightheadedness/dizziness. Unsure whether stools appear black. Does denote a prior h/o GI bleed and is currently on aspirin but no on any chemoprophylaxis for dvt prevention. Review of Systems Review of Systems: All systems reviewed and are unremarkable except as noted in HPI and below. Denies chills, fatigue, headache, nasal congestion, sore throat, cough, chest pain, shortness of breath, palpitations, orthopnea, PND, abdominal pain, n/v/d, constipation, dysuria, hematuria, frequency, back pain, joint pain or swelling, easy bruising or bleeding, skin lesions or rashes. Physical Exam Physical Exam: GENERAL: 61 yo Well-developed, well-nourished but thin WM. NAD. LUNGS: Clear to auscultation bilaterally. No W/R/R. CARDIOVASCULAR: Regular rate and rhythm. No M/G/R. No JVD. ABDOMEN: Soft, non-tender and non-distended. BS normoactive x 4 quad. : Garrison catheter in place, pale yellow urine in garrison bag EXTREMITIES: trace edema. Peripheral pulses +2/4. NEUROLOGIC: A&O x3. PSYCHIATRIC: Cooperative. Appropriate mood and affect. SKIN: Warm, dry, intact. No rashes or lesions. Results & Data Results & Data ([facility]) Vital Signs (Past 12 Hours) Vital Signs Temp Pulse Pulse Resp BP BP Pulse Ox 11/21/21 11:55 36.5 C 74 18 131/84 96 11/21/21 11:40 36.7 C 78 18 123/75 98 11/21/21 11:22 36.7 C 76 18 130/73 98 11/21/21 07:21 36.7 C 76 18 129/77 98 O2 Del Method 11/21/21 11:55 11/21/21 11:40 11/21/21 11:22 11/21/21 07:21 Room Air Laboratory Results 11/21/21 08:15 11/21/21 08:15 PG Care Time/CCT Total # of Minutes Spent Total Time Spent with Patient: Total time spent is greater than 50% in coordination of care (as documented) at patient's floor/unit and/or counseling patient: Coding Level of Care Code 98499 Subseq Hosp Care Lvl 3 Diagnoses Anemia D64.9 Leukocytosis D72.829 Sepsis secondary to UTI A41.9; N39.0 AMS (altered mental status) R41.82 Altered mental status type: unspecified Displacement of indwelling ureteral stent T83.122A Encounter type: initial encounter Fecal impaction K56.41 Acute hepatic encephalopathy K72.00 Depression F32.9 Hyperlipidemia E78.5 Asplenia Q89.01 GERD (gastroesophageal reflux disease) K21.9 Esophagitis presence: without esophagitis (1) AMS (altered mental status) Altered mental status type: unspecified Qualified Code(s): R41.82 - Altered mental status, unspecified (2) Displacement of indwelling ureteral stent Encounter type: initial encounter Qualified Code(s): T83.122A - Displacement of indwelling ureteral stent, initial encounter (3) GERD (gastroesophageal reflux disease) Esophagitis presence: without esophagitis Qualified Code(s): K21.9 - Gastro- esophageal reflux disease without esophagitis
[2021-11-21] MEDS: POTASSIUM CHLORIDE / WTR 10 MEQ/100 ML PLCT IV SCH ×4 (14:45→15:37)
[2021-11-21 18:37] LABS: Hematocrit (blood only) 30.3 % (40.1-51.0)
[2021-11-21] MEDS: ATORVASTATIN 20 MG TAB PO SCH (22:09)
[2021-11-21] MEDS: AMITRIPTYLINE HCL 50 MG TAB PO SCH (22:10)
[2021-11-21] MEDS: ACETAMINOPHEN 325 MG TAB PO PRN (22:22)
[2021-11-21] MEDS: MELATONIN 3 MG TAB PO PRN (22:24)
[2021-11-22 06:11] LABS: Hematocrit (blood only) 28.8 % (40.1-51.0); Hemoglobin 9.5 g/dl (14.0-18.0); Mean Corpuscular Hemoglobin 29.2 pg (25.0-34.0); Mean Corpuscular Volume 88.6 fL (80.0-100.0); Mean Platelet Volume 8.9 fL (9.4-12.4); Platelet Count 799 K/uL (130-400); RDW Coefficient of Variation 16.7 % (11.5-14.5); RDW Standard Deviation 52.4 fL (36.4-46.3); Red Blood Count 3.25 M/uL (4.63-6.08); White Blood Count 12.94 K/ul (4.8-10.8)
[2021-11-22 06:36] LABS: BUN Creatinine Ratio 17.4 (10-20); Calcium 8.1 mg/dl (8.5-10.1); Creatinine Clr Calc Pharmacy 107.9 ml/min; Est GFR (African American) 119.6 ml/min; Est GFR (Non-African American) 103.2 ml/min; Magnesium 1.9 mg/dl (1.7-2.4); Potassium 3.6 mmol/L (3.5-5.1)
[2021-11-22] MEDS: oxyCODONE/ACETAMINOPHEN 10-325 TAB PO PRN ×3 (09:24→22:10)
[2021-11-22] MEDS: SENNA 8.6 MG TAB PO SCH ×2 (09:25→21:53)
[2021-11-22] MEDS: LACTULOSE SYRUP 20 GM/30 ML UDC PO SCH ×5 (09:25→21:53)
[2021-11-22] MEDS: THIAMINE HCL 100 MG TAB PO SCH (09:26)
[2021-11-22] MEDS: NYSTATIN OINT 15 GM TUBE EXT SCH ×2 (09:26→21:54)
[2021-11-22] MEDS: LINACLOTIDE 145 MCG CAPSULE PO SCH (09:26)
[2021-11-22] MEDS: FLUoxetine HCL 20 MG CAP PO SCH (09:26)
--- NOTE | 2021-11-22 13:31 | Hospitalist Progress Note ---
Date of Service November 22, 2021 Assessment & Plan (1) Anemia: Plan: Acute on chronic with h/o GI bleed, hgb 7.4 on 11/21. - heme check stool - Positive - 1 unit of PRBCs on 11/21 -> Hgb up to 10 after tx. - Mildly down today at 9.5. While FOC positive, no overt sign of GI bleeding. Continue PPI daily. (2) Leukocytosis: Plan: Uptrending leukocytosis with fever and associated tachycardia noted 11/16 - Pt with recent sepsis syndrome d/t CAUTI - De-escalated to Rocephin alone as of 11/15 - Obtained repeat UA, urine culture, and blood cultures - Procal repeated 11/17-has come down significantly since admission to 0.58, repeat 11/19 is WNL at 0.15 - Concerned that there is a bacteria not adequately covered at this time, d/w pharmacy, started back on Daptomycin on 11/16 * Clinical improvement noted, ? missing coverage for Enterococcus based on his history * No further fevers since 11/16 * Blood cultures NGTD, and urine culture isolating charity - Although wbc trending back up, procal is WNL and afebrile >48 hours. Will hold off making any further abx adjustments at this time. - Stopped Daptomycin 11/20 after 5th dose - Back up slightly today. Monitor for fever. Low threshold to re-test urine/b lood and treat. (3) Sepsis secondary to UTI: Plan: Sepsis secondary to CAUTI w/ metabolic encephalopathy - Procal 19.77, leukocytosis on ceftriaxone and vancomycin, there are gram negative bacilli in blood and urine, blood Providencia, urine with multiple organisms seen - Urology consulted s/p Stent Exchange (Bilateral) by Dr. Mirza 11/10 - more alert/oriented after disimpaction/abx and stent exchange - Antibiotics narrowed to Ceftriaxone alone 2g IV daily, today day #9, see above re: abx SEPSIS/UTI RESOLVED (4) AMS (altered mental status): Plan: - metabolic and hepatic encephalopathy no good reason for elevated ammonia, liver looked normal on ct with persistent confusion - recheck ammonia is normal on 11/13 - CT head negative on admission - Tx outlined above for UTI/fecal impaction, maybe more of a prolonged metabolic encephalopathy - Added IV Thiamine and per prior documentation seems to have shown improvement since adding this RESOLVED (5) Displacement of indwelling ureteral stent: Plan: Patient with chronic bilateral hydronephrosis with ureteral stents in place. He follows with urology. CT of the abdomen today revealed interval displacement of the left nephroureteral stent, the proximal component now is in the mid ureter. Also with bilateral hydronephrosis/hydroureter. UA with 4+ bacteria. Urology consulted s/p stent exchange 11/10, monitor urine cx and continue abx as outlined (6) Fecal impaction: Plan: s/p disimpaction performed in the ER with removal of a large stool ball. - Continue Linzess 145mcg po daily, Senna 25.8mg po BID, Dulcolax [place] daily PRN, miralax prn - Continue Lactulose QID - titrate to 2-3 soft BMs daily -> Now with softer stool. Encouraged to skip lactulose if having diarrhea. Skipped AM dose, but did take lunch dose. (7) Acute hepatic encephalopathy: Plan: Patient with hyperammonemia, [id number]. - No known hepatic disease. Normal liver morphology on CT. - resolved ? etiology will send B1 level and start thiamine in case is thiamine deficiency - Repeat LFTs in AM 11/11 are normal, repeat ammonia normal on 11/13 - Lactulose QID - titrate to 2-3 soft BMs daily RESOLVED (8) Depression: Plan: Chronic - Continue Fluoxetine 40mg po daily - Continue Elavil 50mg po daily (9) Hyperlipidemia: Plan: - Continue Atorvastatin daily (10) Asplenia: Plan: Noted (11) GERD (gastroesophageal reflux disease): Plan: - Continue Protonix daily Plan Patient also with moderate protein calorie malnutrition - RD consulted, will make dietary recommendations to boost protein Admission and Anticipated Discharge Date Admission Date: November 09, 2021 Subjective Had diarrhea and vomiting last night. Specifically denies any coffee ground emesis or any hematochezia or melena. Feeling better this AM. Physical Exam Constitutional: WD/WN, vitals as above Eyes: EOM intact bilaterally; no conjunctival abnormality ENMT: external ear and nose normal, oropharynx normal Neck: trachea midline, no thyromegaly normal visual inspection Respiratory: normal respiratory effort, lungs clear to auscultation no respiratory distress Cardiovascular: RRR, no murmur, no edema Gastrointestinal (Abdomen): Inspection/Auscultation: abdomen normal to inspection; abdomen not distended Skin: no rashes, warm and dry Neurologic: moves all extremities and awake Psychiatric: Orientation: alert, oriented to person and cooperative Results & Data Results & Data ([facility]) Vital Signs (Past 12 Hours) Vital Signs Temp Pulse Resp BP Pulse Ox O2 Del Method 11/22/21 08:04 36.7 C 80 18 150/88 H 98 Room Air PG Care Time/CCT Total # of Minutes Spent Total Time Spent with Patient: Total time spent is greater than 50% in coordination of care (as documented) at patient's floor/unit and/or counseling patient: Coding Level of Care Code 20409 Subseq Hosp Care Lvl 2 Diagnoses Anemia D64.9 Leukocytosis D72.829 Sepsis secondary to UTI A41.9; N39.0 AMS (altered mental status) R41.82 Altered mental status type: unspecified Displacement of indwelling ureteral stent T83.122A Encounter type: initial encounter Fecal impaction K56.41 Acute hepatic encephalopathy K72.00 Depression F32.9 Hyperlipidemia E78.5 Asplenia Q89.01 GERD (gastroesophageal reflux disease) K21.9 Esophagitis presence: without esophagitis (1) AMS (altered mental status) Altered mental status type: unspecified Qualified Code(s): R41.82 - Altered mental status, unspecified (2) Displacement of indwelling ureteral stent Encounter type: initial encounter Qualified Code(s): T83.122A - Displacement of indwelling ureteral stent, initial encounter (3) GERD (gastroesophageal reflux disease) Esophagitis presence: without esophagitis Qualified Code(s): K21.9 - Gastro-esophageal reflux disease without esophagitis
[2021-11-22] MEDS: ACETAMINOPHEN 325 MG TAB PO PRN (14:34)
[2021-11-23] MEDS: AMITRIPTYLINE HCL 50 MG TAB PO SCH (00:05)
[2021-11-23] MEDS: ATORVASTATIN 20 MG TAB PO SCH (00:05)
[2021-11-23] MEDS: oxyCODONE/ACETAMINOPHEN 10-325 TAB PO PRN ×2 (06:02→12:03)
[2021-11-23] MEDS: PANTOprazole 40 MG TAB PO SCH (07:24)
[2021-11-23] MEDS: NYSTATIN OINT 15 GM TUBE EXT SCH (07:24)
[2021-11-23] MEDS: FLUoxetine HCL 20 MG CAP PO SCH (07:24)
[2021-11-23] MEDS: LACTULOSE SYRUP 20 GM/30 ML UDC PO SCH ×2 (07:24→12:03)
[2021-11-23] MEDS: THIAMINE HCL 100 MG TAB PO SCH (07:25)
[2021-11-23] MEDS: LINACLOTIDE 145 MCG CAPSULE PO SCH (07:25)
[2021-11-23] MEDS: SENNA 8.6 MG TAB PO SCH (07:25)
[2021-11-23 08:17] LABS: Basophils # (auto) 0.27 K/uL (0-0.2); Basophils % (auto) 2.4 %; Eosinophils # (auto) 0.57 K/uL (0-0.50); Hematocrit (blood only) 31.2 % (40.1-51.0); Hemoglobin 10.1 g/dl (14.0-18.0); Immature Granulocytes # (auto) 0.04 K/uL (0.00-0.02); Immature Granulocytes % (auto) 0.3 %; Lymphocytes % (auto) 15.7 %; Mean Corpuscular Hemoglobin 29.4 pg (25.0-34.0); Mean Corpuscular Hgb Conc 32.4 g/dL (32.0-36.0); Mean Corpuscular Volume 90.7 fL (80.0-100.0); Mean Platelet Volume 8.3 fL (9.4-12.4); Neutrophils # (auto) 7.97 K/uL (1.4-6.5); Neutrophils % (auto) 69.6 %; Platelet Count 802 K/uL (130-400); RDW Standard Deviation 55.1 fL (36.4-46.3); Red Blood Count 3.44 M/uL (4.63-6.08); White Blood Count 11.45 K/ul (4.8-10.8)
[2021-11-23 08:40] LABS: Albumin Globulin Ratio 0.6 (0.9-2); Albumin Level 2.4 gm/dl (3.4-5.0); BUN Creatinine Ratio 21.1 (10-20); Bilirubin,Total 0.2 mg/dl (0.2-1.0); Creatinine Clr Calc Pharmacy 130.6 ml/min; Est GFR (African American) 129.4 ml/min; Est GFR (Non-African American) 111.6 ml/min; Magnesium 1.9 mg/dl (1.7-2.4); Potassium 3.8 mmol/L (3.5-5.1); Total Protein 6.4 gm/dl (6.0-8.3)
--- NOTE | 2021-11-23 17:06 | Discharge Summary ---
Date of Service November 23, 2021 Admission HPI Per Admitting Provider Ulysses Guardado is a 61yo male with history of T4 paraplegia, recurrent pseudomonal UTIs with indwelling Camp catheter in place, asplenia, hypertension, hyperlipidemia, GERD, depression. Patient presents to the ER this evening with complaint of diffuse generalized weakness, watery diarrhea and possible sepsis. Patient's called 911 today because she was concerned the patient was more confused. EMS reports patient was confused and covered in stool. Patient provides very little in the way of history. He does admit to some diarrhea but otherwise denies fever, chills, chest pain, cough, shortness of breath. In the ER he is afebrile, initially tachycardic on arrival, blood pressure stable, no respiratory distress, saturating well on room air CT of the abdomen revealed fecal impaction and large stool burden. Patient was manually disimpacted in the ER. CT of the abdomen suggestive of ureteral stent migration. Urology was consulted and evaluated the patient while in the ER ER course: Normal saline solution x3 L, Zosyn 4.5 g Principal Diagnosis CAUTI Discharge Exam The patient is awake, alert and oriented 3, well developed and well nourished, normocephalic and atraumatic, lying in bed and in no acute distress. HEENT--PERRL, EOMI, mucous membranes and oropharynx mildly dry Neck--supple. No JVD. No bruits. Thyroid normal, trachea midline, no adenopathy. Heart--normal S1 and S2. No murmurs, rubs or gallops. Lungs--clear bilaterally, no respiratory distress, no accessory muscle use. Abdomen--normal bowel sounds and soft. Mild epigastric and left sided abdominal pain Extremities--poor muscle tone lower extremitis Dermatologic--normal skin turgor, normal color, no abnormal lymph nodes, no rash. Neurologic--cranial nerves II through XII grossly intact. Rheumatologic--normal range of motion. Psychiatric--normal affect. Discharge Data Allergies Allergy/AdvReac Type Severity Reaction Status Date / Time caffeine AdvReac Intermediate Gastrointestinal Verified 11/09/21 22:19 Upset ibuprofen AdvReac Intermediate GI Bleed Verified 11/09/21 22:19 Consultations 11/09/21 22:02 ED Decision to Admit Stat 11/09/21 22:09 Consult Urology Stat 11/10/21 00:53 Consult Urology Routine Procedures Performed Operation Date: 11/10/21 09:25 Actual Procedures p Cystoscopy, Bilateral Stent Exchange(Bilateral) - Martin Mirza MD Ordered Studies 11/09/21 18:26 CT abd pelvis wo con Stat CT head/brain wo con Stat 11/10/21 08:30 FL KUB Routine Hospital Course (1) Anemia: Acute on chronic with h/o GI bleed, hgb 7.4 on 11/21. - heme check stool - Positive - 1 unit of PRBCs on 11/21 -> Hgb up to 10 after tx. - Mildly down today at 9.5. While FOC positive, no overt sign of GI bleeding. Continue PPI daily. (2) Leukocytosis: Resolved (3) Sepsis secondary to UTI: Sepsis secondary to CAUTI w/ metabolic encephalopathy - Procal 19.77, leukocytosis on ceftriaxone and vancomycin, there are gram negative bacilli in blood and urine, blood Providencia, urine with multiple organisms seen - Urology consulted s/p Stent Exchange (Bilateral) by Dr. Mirza 11/10 - more alert/oriented after disimpaction/abx and stent exchange - Antibiotics narrowed to Ceftriaxone alone 2g IV daily, today day #9, see above re: abx SEPSIS/UTI RESOLVED (4) AMS (altered mental status): - metabolic and hepatic encephalopathy no good reason for elevated ammonia, liver looked normal on ct with persistent confusion - recheck ammonia is normal on 11/13 - CT head negative on admission - Tx outlined above for UTI/fecal impaction, maybe more of a prolonged metabolic encephalopathy - Added IV Thiamine and per prior documentation seems to have shown improvement since adding this RESOLVED (5) Displacement of indwelling ureteral stent: Patient with chronic bilateral hydronephrosis with ureteral stents in place. He follows with urology. CT of the abdomen today revealed interval displacement of the left nephroureteral stent, the proximal component now is in the mid ureter. Also with bilateral hydronephrosis/hydroureter. UA with 4+ bacteria. Urology consulted s/p stent exchange 11/10, monitor urine cx and continue abx as outlined (6) Fecal impaction: s/p disimpaction performed in the ER with removal of a large stool ball. - Continue Linzess 145mcg po daily, Senna 25.8mg po BID, Dulcolax [place] daily PRN, miralax prn - Continue Lactulose QID - titrate to 2-3 soft BMs daily -> Now with softer stool. Encouraged to skip lactulose if having diarrhea. Skipped AM dose, but did take lunch dose. (7) Acute hepatic encephalopathy: Patient with hyperammonemia, NT2=748. - No known hepatic disease. Normal liver morphology on CT. - resolved ? etiology will send B1 level and start thiamine in case is thiamine deficiency - Repeat LFTs in AM 11/11 are normal, repeat ammonia normal on 11/13 - Lactulose QID - titrate to 2-3 soft BMs daily RESOLVED (8) Depression: Chronic - Continue Fluoxetine 40mg po daily - Continue Elavil 50mg po daily (9) Hyperlipidemia: - Continue Atorvastatin daily (10) Asplenia: Noted (11) GERD (gastroesophageal reflux disease): - Continue Protonix daily (12) Paraplegia following spinal cord injury: Plan Patient also with moderate protein calorie malnutrition - RD consulted, will make dietary recommendations to boost protein Total Time Total Time Spent Total Time Spent (In Minutes): 35 Discharge Plan Discharge Items Patient Disposition: Transfer [facility] Reason For Visit: DIARRHEA, CONFUSION Discharge Diagnosis: GI bleed, CAUTI Activity: Resume your previous activity Non-emergency contact: Primary Care Provider Call non-emergency contact if: you have any medication questions Follow-up/Referrals: Zenaida Flanagan PA-C [Primary Care Provider] - Diet: Regular Addtl Attending Provider Instructions: please make appointment to follow up with your regular PCP and Urologist Pending Studies at Discharge: No Stand-Alone Forms: My [facility] Skilled Items Patient informed of condition?: Yes DNR: No Discharge Level of Care: Skilled Communicable Disease: No Discharge Prognosis: Stable Lines: None Urinary Catheter: Yes Medications and DC Order Prescriptions: Continued methenamine hippurate 1 gram tablet 1 g PO Q12H Qty: 60 6RF ascorbic acid (vitamin C) 500 mg capsule 1,000 mg PO BID multivitamin Tablet 1 tab PO QAM atorvastatin 20 mg Tablet 20 mg PO HS Rx Instructions: Takes at Midnight omeprazole 40 mg Capsule,Delayed Release(Dr/Ec) 40 mg PO BID oxycodone-acetaminophen 10-325 mg Tablet 1 tab PO Q6H PRN (Reason: Pain) ferrous sulfate [iron] 325 mg (65 mg iron) Tablet 325 mg PO QAM Linzess 145 mcg Capsule 145 mcg PO QAM sennosides [Senokot] 8.6 mg Tablet 25.8 mg PO Q12 Rx Instructions: 3 tablet dose aspirin 81 mg Tablet,Delayed Release (Dr/Ec) 81 mg PO QAM amitriptyline 50 mg Tablet 50 mg PO HS Rx Instructions: Takes at Midnight zolpidem 5 mg tablet 5 - 10 mg PO HS PRN (Reason: Sleep) fluoxetine 20 mg capsule 40 mg PO DAILY Discharge Orders: Discharge Order (Routine); Ordered 11/23/21 Ordered By: Parveen Riley/Other Patient Handouts: Understanding Sepsis Admission Data Admit Date/Time: 11/09/21 22:50 Attending Provider: Parveen Hernandez Admit Provider: Nelly Gee Primary Care Provider: Zenaida Flanagan Other Providers: Edison Mcintosh ; Nelly Gee ; [facility] ; [facility] ; [facility] Other Interventions: Discharge Summary Assessment (RN) Last Done: 11/23/21 13:22 Coding Level of Care Code D/C DAY MANAGEMENT >30 MINS Diagnoses Anemia D64.9 Leukocytosis D72.829 Sepsis secondary to UTI A41.9; N39.0 AMS (altered mental status) R41.82 Altered mental status type: unspecified Displacement of indwelling ureteral stent T83.122A Encounter type: initial encounter Fecal impaction K56.41 Acute hepatic encephalopathy K72.00 Depression F32.9 Hyperlipidemia E78.5 Asplenia Q89.01 GERD (gastroesophageal reflux disease) K21.9 Esophagitis presence: without esophagitis Paraplegia following spinal cord injury G82.20 Time Spent (min) 35
== END 2021-11-23 15:02 | DRG 659 ==
LOC: ED 18:18 → 3W 22:50 → SUATTDRO 22:50 → 3W 11-10 00:39

== ENCOUNTER 2022-01-05 12:35 | Inpatient (IN) ==
[2022-01-05 13:41] LABS: Basophils # (auto) 0.12 K/uL (0-0.2); Basophils % (auto) 0.8 %; Eosinophils # (auto) 0.33 K/uL (0-0.50); Eosinophils % (auto) 2.1 %; Hematocrit (blood only) 34.5 % (40.1-51.0); Hemoglobin 10.9 g/dl (14.0-18.0); Immature Granulocytes # (auto) 0.09 K/uL (0.00-0.02); Immature Granulocytes % (auto) 0.6 %; Lymphocytes # (auto) 2.18 K/uL (1.2-3.4); Mean Corpuscular Hemoglobin 26.5 pg (25.0-34.0); Mean Corpuscular Hgb Conc 31.6 g/dL (32.0-36.0); Mean Corpuscular Volume 83.9 fL (80.0-100.0); Mean Platelet Volume 9.2 fL (9.4-12.4); Monocytes # (auto) 0.68 K/uL (0.24-0.82); Monocytes % (auto) 4.4 %; Neutrophils # (auto) 12.15 K/uL (1.4-6.5); Neutrophils % (auto) 78.1 %; Platelet Count 799 K/uL (130-400); RDW Coefficient of Variation 17.1 % (11.5-14.5); RDW Standard Deviation 52.3 fL (36.4-46.3); Red Blood Count 4.11 M/uL (4.63-6.08); White Blood Count 15.55 K/ul (4.8-10.8)
[2022-01-05 13:54] LABS: Albumin Globulin Ratio 0.4 (0.9-2); Albumin Level 2.4 gm/dl (3.4-5.0); BUN Creatinine Ratio 21.3 (10-20); Bilirubin,Total 0.4 mg/dl (0.2-1.0); Calcium 8.2 mg/dl (8.5-10.1); Creatinine Clr Calc Pharmacy 88.5 ml/min; Est GFR (African American) 112.5 ml/min; Est GFR (Non-African American) 97.1 ml/min; Globulin 5.6 gm/dl (2.5-4.0)
[2022-01-05 14:44] LABS: Appearance Urine Turbid (Clear); Bilirubin Urine Negative (Negative); Blood Urine 1+ (Negative); Color Urine Yellow; Glucose Urine UA Negative (Negative); Ketones Urine Negative (Negative); Leukocyte Esterase Urine 3+ (Negative); Nitrite Urine Negative (Negative); Protein Urine 3+ (Negative); Specific Gravity Urine 1.015 (1.000-1.030); Urobilinogen Urine Negative (Negative); pH Urine >= 9.0 (4.5-7.5)
[2022-01-05] MEDS ORDERED: PIPERACILLIN/TAZOBACTAM 4.5 GM/120 ML BAG IV ONE (15:03)
[2022-01-05] MEDS ORDERED: VANCOMYCIN CONSULT ACTIVE PRN (15:03)
[2022-01-05] MEDS ORDERED: VANCOMYCIN HCL 1,250 MG in SODIUM CHLORIDE 0.9% 500 ML IV ONE (15:03)
[2022-01-05] MEDS ORDERED: SODIUM CHLORIDE 0.9% 1000ML 1,000 ML IV ONE (15:03)
[2022-01-05 15:10] LABS: Epithelial Cell Urine 0-5 /lpf (0-5); WBC Urine >30 /hpf (0-5)
[2022-01-05 15:11] LABS: Bacteria Urine 3+ (Negative); Triple Phosphate Crystal Urine Present (None Prsent)
--- NOTE | 2022-01-05 15:12 | Electrocardiogram Report ---
Test Reason : Blood Pressure : / mmHG Vent. Rate : 086 BPM Atrial Rate : 086 BPM P-R Int : 142 ms QRS Dur : 108 ms QT Int : 388 ms P-R-T Axes : 070 024 074 degrees QTc Int : 464 ms Normal sinus rhythm Incomplete right bundle branch block Borderline ECG When compared with ECG of 09-NOV-2021 18:50, Left anterior fascicular block is no longer Present Incomplete right bundle branch block is now Present Borderline criteria for Lateral infarct are no longer Present Criteria for Inferior infarct are no longer Present Confirmed by Martin Franco ([id number]) on 01/05/2022 3:12:12 PM Referred By: Confirmed By:Dhaval Franco
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
[2022-01-05] MEDS ORDERED: OPTIRAY 350 100ml IV ONE (15:53)
--- NOTE | 2022-01-05 16:45 | CT Scan Report ---
CT abd pelvis IV con only CLINICAL HISTORY: fever, sacral wounds TECHNIQUE: Helical axial images of the abdomen and pelvis were obtained and displayed. Automated dose lowering techniques and/or adjustment according to patient size were utilized for this exam. This e xam was performed with intravenous contrast. CT DOSE: 297.58 mGy.cm COMPARISON: Comparison is made to CT abdomen pelvis 11/09/2021 FINDINGS: Lower chest: Bronchiectasis and atelectasis are seen in the lung bases. Liver: Unremarkable. No focal lesions are seen. Gallbladder and biliary tree: Patient is status post cholecystectomy. Physiologic Physiologic promine nce of the biliary ducts is noted. Pancreas: Fatty replacement of the pancreas is seen. Spleen: Unremarkable. Adrenals: Unremarkable. Kidneys and ureters: Bilateral mild hydronephrosis is seen. There are multiple bilateral nephroureter al stents. There is a left ureteral stone measuring 8 mm in diameter. Bladder: Capm catheter is seen. Reproductive organs: Unremarkable. Bowel: Large stool burden is seen with inspissation in the rectum. The appendix is not definitely see n however no secondary signs of appendicitis are noted. Small bowel anastomosis and hiatal hernia are noted. Lymph nodes Retroperitoneal: Subcentimeter lymph nodes are noted. Pelvic: Unremarkable. Mesenteric: Unremarkable. Peritoneum: Normal. Vessels: Atherosclerotic calcifications are seen. Abdominal wall: Soft tissue stranding is seen about the sacrum however there is no drainable fluid co llection or tract extending to the sacrum. No focal lucencies seen in the sacrum to suggest osteomyel itis. Bones: Degenerative changes in the visualized spine. IMPRESSION: 1. There is a sacral ulcer without evidence of drainable fluid collection or osteomyelitis. 2. Large stool burden in the rectum with inspissation. Compared to prior exam, the rectal wall is le ss prominently thickened. Mild bilateral hydronephrosis, less conspicuous than the prior exam. 3. Bilateral nephroureteral stents are seen, the left stent is now in satisfactory position. A urete ral stone is noted on the left. ACT 112: Negative or not required by law. Electronically signed by: Colt Johnson M.D. 01/05/2022 4:44 PM
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
[2022-01-05] MEDS ORDERED: ACETAMINOPHEN 325 MG TAB PO PRN (18:56)
[2022-01-05] MEDS ORDERED: LACTATED RINGER'S 1,000 ML IV SCH (19:15)
[2022-01-05] MEDS ORDERED: MINERAL OIL ENEMA 133 ML BTL PR PRN (19:20)
--- NOTE | 2022-01-05 19:20 | XRay Report ---
XR chest 1V portable CLINICAL HISTORY: possible aspiration COMPARISON STUDY: Chest radiograph November 09, 2021. Chest CT January 24, 2021. FINDINGS: Postoperative findings within the thoracic spine are noted. Cardiac size is normal. Mediast inal contours are normal. There is no pneumothorax or pleural effusion. No consolidation is noted. Th ere is subtle right lower lung reticulonodular interstitial thickening. IMPRESSION: Subtle right lower lung reticulonodular interstitial thickening. This could reflect a mi ld infectious process or mild aspiration pneumonitis. ACT 112: Negative or not required by law. Electronically signed by: Omar Fisher M.D. 01/05/2022 7:18 PM
[2022-01-05] MEDS: traMADol HCL 50 MG TABLET PO PRN (19:59)
[2022-01-05] MEDS: ALBUTEROL 0.5% NEB SOLN 2.5 MG/0.5 ML VIAL NEB SCH (19:59)
--- NOTE | 2022-01-05 20:46 | CT Scan Report ---
CT OF THE HEAD WITHOUT CONTRAST CLINICAL HISTORY: Altered mental status. COMPARISON STUDY: Head CT November 09, 2021. CT DOSE: 853.38 mGy.cm TECHNIQUE: Helical axial images of the head were obtained without IV contrast. Automated exposure con trol was utilized for the study. A dose lowering technique was utilized adhering to the principles o f ALARA. FINDINGS: No acute intracranial hemorrhage, midline shift or mass effect is present. Atrophy and whit e matter hypodensities are again noted. The ventricular system is unremarkable. The basal cisterns ar e patent. No extra-axial collections are present. There are no findings to suggest acute dural sinus thrombosis or acute territorial infarct. No significant calvarial abnormalities are present. Right ma stoid air cells are partially opacified. IMPRESSION: 1. No acute intracranial findings. No change in appearance of the brain. 2. Partially opacified right mastoid air cells. ACT 112: Negative or not required by law. Electronically signed by: Omar Fisher M.D. 01/05/2022 8:43 PM
[2022-01-05] MEDS: PIPERACILLIN/TAZOBACTAM 4.5 GM in DEXTROSE 5% 100 ML IV SCH (22:28)
[2022-01-05] MEDS: ASCORBIC ACID 500 MG TAB PO SCH (22:29)
[2022-01-05] MEDS: SENNA 8.6 MG TAB PO SCH (22:29)
[2022-01-05] MEDS: ENOXAPARIN INJ 40 MG/0.4 ML SYR SQ SCH (22:29)
[2022-01-05] MEDS: PANTOprazole 40 MG TAB PO SCH (22:29)
[2022-01-05] MEDS ORDERED: DICLOFENAC SOD 1% GEL 100 GM TUBE EXT ONE (23:11)
[2022-01-05] MEDS ORDERED: LIDOCAINE 5% OINT 30 GM TUBE EXT PRN ×2 (23:12→23:14)
[2022-01-06] MEDS: ALBUTEROL 0.5% NEB SOLN 2.5 MG/0.5 ML VIAL NEB SCH (00:02)
[2022-01-06] MEDS ORDERED: ALBUTEROL 0.083% NEBU SOLN 3 ML VIAL NEB PRN (00:43)
[2022-01-06] MEDS: AMITRIPTYLINE HCL 50 MG TAB PO SCH ×2 (01:04→22:33)
[2022-01-06] MEDS: LIDOCAINE 5% OINT 30 GM TUBE EXT PRN (01:05)
[2022-01-06] MEDS: traMADol HCL 50 MG TABLET PO PRN ×3 (04:16→19:39)
[2022-01-06] MEDS: VANCOMYCIN HCL 1,000 MG in SODIUM CHLORIDE 0.9% 250 ML IV SCH ×2 (04:16→17:06)
[2022-01-06] MEDS ORDERED: Nursing to Pharmacy Communication SCH (06:45)
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
[2022-01-06] MEDS: ASCORBIC ACID 500 MG TAB PO SCH ×2 (08:41→20:56)
[2022-01-06] MEDS: LINACLOTIDE 145 MCG CAPSULE PO SCH (08:41)
[2022-01-06] MEDS: MULTIVITAMIN TAB PO SCH (08:41)
[2022-01-06] MEDS: PANTOprazole 40 MG TAB PO SCH ×2 (08:41→20:56)
[2022-01-06] MEDS: FLUoxetine HCL 20 MG CAP PO SCH (08:41)
[2022-01-06] MEDS: ASPIRIN 81 MG ECTAB PO SCH (08:41)
[2022-01-06] MEDS: FERROUS SULFATE 325 MG TAB PO SCH (08:41)
[2022-01-06] MEDS: SENNA 8.6 MG TAB PO SCH ×2 (08:41→20:59)
[2022-01-06 09:21] LABS: Albumin Globulin Ratio 0.4 (0.9-2); Albumin Level 1.7 gm/dl (3.4-5.0); BUN Creatinine Ratio 21.7 (10-20); Bilirubin,Total 0.3 mg/dl (0.2-1.0); Calcium 6.9 mg/dl (8.5-10.1); Creatinine Clr Calc Pharmacy 99.5 ml/min; Est GFR (African American) 119.6 ml/min; Est GFR (Non-African American) 103.2 ml/min; Globulin 3.9 gm/dl (2.5-4.0); Potassium 3.5 mmol/L (3.5-5.1); Total Protein 5.6 gm/dl (6.0-8.3)
[2022-01-06 09:22] LABS: Hematocrit (blood only) 24.7 % (40.1-51.0); Hemoglobin 8.3 g/dl (14.0-18.0); Mean Corpuscular Hemoglobin 26.7 pg (25.0-34.0); Mean Corpuscular Hgb Conc 33.6 g/dL (32.0-36.0); Mean Corpuscular Volume 79.4 fL (80.0-100.0); Mean Platelet Volume 9.2 fL (9.4-12.4); Platelet Count 641 K/uL (130-400); RDW Coefficient of Variation 17.2 % (11.5-14.5); RDW Standard Deviation 49.4 fL (36.4-46.3); Red Blood Count 3.11 M/uL (4.63-6.08); White Blood Count 13.46 K/ul (4.8-10.8)
[2022-01-06 12:22] LABS: A calco-baum cmplx NotReported Not Detected (NotDetected); Bact fragilis Not Reported Not Detected (NotDetected); C auris Not Reported Not Detected (NotDetected); Calbicans Not Reported Not Detected (NotDetected); Candida glabrata Not Reported Not Detected (NotDetected); Candida krusei Not Reported Not Detected (NotDetected); Cneoformans/gatti Not Reported Not Detected (NotDetected); Cparapsilosis Not Reported Not Detected (NotDetected); Ctropicalis Not Reported Not Detected (NotDetected); E cloacae compx Not Reported Not Detected (NotDetected); Efaecalis Not Reported Not Detected (NotDetected); Efaecium Not Reported Not Detected (NotDetected); Enterobacterales Not Reported Not Detected (NotDetected); Escherichia coli Not Reported Not Detected (NotDetected); H influenzae Not Reported Not Detected (NotDetected); K aerogenes Not Reported Not Detected (NotDetected); Koxytoca Not Reported Not Detected (NotDetected); Kpneumoniae grp Not Reported Not Detected (NotDetected); Lmonocyt Not Reported Not Detected (NotDetected); N meningitidis Not Reported Not Detected (NotDetected); P aeruginosa Not Reported Not Detected (NotDetected); Proteus spp Not Reported Not Detected (NotDetected); Salmonella spp Not Reported Not Detected (NotDetected); Smarcescens Not Reported Not Detected (NotDetected); Staph lugdunensis Not Reported Not Detected (NotDetected); Staphaureus Not Reported Not Detected (NotDetected); Staphepi Not Reported Not Detected (NotDetected); Staphylococcus spp. DETECTED (NotDetected); Stenmaltophilia Not Reported Not Detected (NotDetected); Strep agal(GrpB) Not Reported Not Detected (NotDetected); Strep pneum Not Reported Not Detected (NotDetected); Strep pyog (GrpA) Not Reported Not Detected (NotDetected); Strep spp Not Reported Not Detected (NotDetected)
[2022-01-06 12:31] LABS: Staph spp. Not Reported DETECTED (NotDetected)
--- NOTE | 2022-01-06 13:27 | Pharmacy Report ---
Pharmacy PK ABX Note - Date of Service January 06, 2022 - Assessment and Plan Assessment 61 year old M receiving vancomycin nd zosyn for treatment of UTI/sacral wound. WBC elevated but is trending down. Pertinent microbiologic data includes: blood culture growing gpc in 1/4 bottles thus far. Biofire positive for staph species only indicating likely contaminant. Will order a random level for tomorrow. Day # 2 of antimicrobial therapy. Plan Vancomycin * Loading dose: 1250 mg IV x 1 (already administered) * Maintenance dose: 1000 mg IV every 12 hours (initiated this morning) * Regimen is predicted to achieve target AUC/KONSTANTIN of 400-600 mg/L.hr * Random level ordered for: 01/07/22 @1000 Pharmacy will continue to follow and will adjust dose/frequency as necessary. Thank you. Pharmacy has transitioned to AUC monitoring for vancomycin. AUC/KONSTANTIN is the preferred PK/PD target and is associated with decreased risk of nephrotoxicity compared to traditional trough targets.
[2022-01-06] MEDS ORDERED: MICONAZOLE NITRATE POWDER 43 GM EXT PRN (13:37)
[2022-01-06] MEDS: PIPERACILLIN/TAZOBACTAM 4.5 GM in DEXTROSE 5% 100 ML IV SCH ×2 (14:05→22:14)
[2022-01-06] MEDS: ENOXAPARIN INJ 40 MG/0.4 ML SYR SQ SCH (20:59)
[2022-01-07] MEDS: traMADol HCL 50 MG TABLET PO PRN ×2 (01:45→08:44)
[2022-01-07] MEDS: VANCOMYCIN HCL 1,000 MG in SODIUM CHLORIDE 0.9% 250 ML IV SCH (04:09)
[2022-01-07] MEDS: PIPERACILLIN/TAZOBACTAM 4.5 GM in DEXTROSE 5% 100 ML IV SCH ×3 (05:58→22:09)
[2022-01-07 06:37] LABS: Basophils % (auto) 0.8 %; Eosinophils % (auto) 2.4 %; Hematocrit (blood only) 22.5 % (40.1-51.0); Hemoglobin 7.5 g/dl (14.0-18.0); Immature Granulocytes # (auto) 0.07 K/uL (0.00-0.02); Immature Granulocytes % (auto) 0.6 %; Lymphocytes # (auto) 2.24 K/uL (1.2-3.4); Mean Corpuscular Hemoglobin 26.4 pg (25.0-34.0); Mean Corpuscular Hgb Conc 33.3 g/dL (32.0-36.0); Mean Corpuscular Volume 79.2 fL (80.0-100.0); Mean Platelet Volume 9.2 fL (9.4-12.4); Monocytes # (auto) 1.15 K/uL (0.24-0.82); Monocytes % (auto) 9.2 %; Neutrophils # (auto) 8.59 K/uL (1.4-6.5); Platelet Count 622 K/uL (130-400); RDW Coefficient of Variation 17.2 % (11.5-14.5); RDW Standard Deviation 48.8 fL (36.4-46.3); Red Blood Count 2.84 M/uL (4.63-6.08); White Blood Count 12.45 K/ul (4.8-10.8)
[2022-01-07 07:02] LABS: Echinocytes 1+; Polychromasia 1+; Target Cells 2+
[2022-01-07 07:41] LABS: Albumin Globulin Ratio 0.4 (0.9-2); Albumin Level 1.7 gm/dl (3.4-5.0); BUN Creatinine Ratio 19.7 (10-20); Bilirubin,Total 0.3 mg/dl (0.2-1.0); Calcium 6.8 mg/dl (8.5-10.1); Creatinine Clr Calc Pharmacy 101.1 ml/min; Est GFR (African American) 118.2 ml/min; Globulin 3.9 gm/dl (2.5-4.0); Potassium 2.7 mmol/L (3.5-5.1); Total Protein 5.6 gm/dl (6.0-8.3)
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
[2022-01-07] MEDS: SENNA 8.6 MG TAB PO SCH ×2 (08:50→22:07)
[2022-01-07] MEDS: ASCORBIC ACID 500 MG TAB PO SCH ×2 (08:50→22:06)
[2022-01-07] MEDS: ASPIRIN 81 MG ECTAB PO SCH (08:50)
[2022-01-07] MEDS: MULTIVITAMIN TAB PO SCH (08:51)
[2022-01-07] MEDS: PANTOprazole 40 MG TAB PO SCH ×2 (08:51→22:06)
[2022-01-07] MEDS: FERROUS SULFATE 325 MG TAB PO SCH (08:51)
[2022-01-07] MEDS: LINACLOTIDE 145 MCG CAPSULE PO SCH (08:51)
[2022-01-07] MEDS: FLUoxetine HCL 20 MG CAP PO SCH (08:51)
[2022-01-07] MEDS ORDERED: ATORVASTATIN 20 MG TAB PO SCH (09:00)
[2022-01-07] MEDS: POTASSIUM CHLORIDE CRTAB 20 MEQ TABCR PO SCH ×3 (09:57→16:02)
[2022-01-07] MEDS: LIDOCAINE 5% OINT 30 GM TUBE EXT PRN (12:52)
--- NOTE | 2022-01-07 12:57 | Pharmacy Report ---
Pharmacy PK ABX Note - Date of Service January 07, 2022 - Assessment and Plan Assessment 01/07/22: Random level this morning predicts current regimen to be slightly supratherapeutic. Will decrease dose slightly. Sacral wound growing staph species, initial urine cx recommended repeat, repeat urine cx currently reincubating. 01/06/22 61 year old M receiving vancomycin nd zosyn for treatment of UTI/sacral wound. WBC elevated but is trending down. Pertinent microbiologic data includes: blood culture growing gpc in 1/4 bottles thus far. Biofire positive for staph species only indicating likely contaminant. Will order a random level for tomorrow. Day # 2 of antimicrobial therapy. Plan Vancomycin * Loading dose: 1250 mg IV x 1 (already administered) * Reduce Maintenance dose: 750 mg IV every 12 hours * Regimen is predicted to achieve target AUC/KONSTANTIN of 400-600 mg/L.hr * Random level ordered for: 01/09/22 @1000 Pharmacy will continue to follow and will adjust dose/frequency as necessary. Thank you. Pharmacy has transitioned to AUC monitoring for vancomycin. AUC/KONSTANTIN is the preferred PK/PD target and is associated with decreased risk of nephrotoxicity compared to traditional trough targets.
[2022-01-07] MEDS: oxyCODONE/ACETAMINOPHEN 5mg/325mg TAB PO PRN ×2 (16:02→22:08)
[2022-01-07 17:26] LABS: Anion Gap 7 (3-11); BUN Creatinine Ratio 15.9 (10-20); Blood Urea Nitrogen 14 mg/dl (6-23); Calcium 7.1 mg/dl (8.5-10.1); Carbon Dioxide 16 mmol/L (21-32); Chloride 113 mmol/L (98-107); Creatinine Clr Calc Pharmacy 81.6 ml/min; Est GFR (African American) 108.2 ml/min; Est GFR (Non-African American) 93.4 ml/min; Glucose 115 mg/dl (70-99(Fasting)); Sodium 136 mmol/L (136-145)
[2022-01-07] MEDS: VANCOMYCIN HCL 750 MG in SODIUM CHLORIDE 0.9% 250 ML IV SCH (17:27)
[2022-01-07] MEDS ORDERED: Flu Vaccine (Fluarix) 0.5mL SYR (Standard Dose) IM ONE (20:30)
[2022-01-07] MEDS: ENOXAPARIN INJ 40 MG/0.4 ML SYR SQ SCH (22:07)
[2022-01-07] MEDS: AMITRIPTYLINE HCL 50 MG TAB PO SCH (22:08)
[2022-01-08] MEDS: MELATONIN 3 MG TAB PO PRN ×2 (01:52→22:14)
[2022-01-08] MEDS: VANCOMYCIN HCL 750 MG in SODIUM CHLORIDE 0.9% 250 ML IV SCH ×2 (04:48→16:15)
[2022-01-08] MEDS: PIPERACILLIN/TAZOBACTAM 4.5 GM in DEXTROSE 5% 100 ML IV SCH ×3 (04:53→22:06)
[2022-01-08] MEDS: oxyCODONE/ACETAMINOPHEN 5mg/325mg TAB PO PRN ×3 (05:16→22:14)
--- NOTE | 2022-01-08 07:03 | Hospitalist Progress Note ---
Date of Service January 08, 2022 Assessment & Plan (1) UTI (urinary tract infection): (2) COVID-19: (3) Sacral wound: (4) Confusion: (5) S/P ureteral stent placement: (6) Constipation: (7) Depression: (8) Hypertension: (9) Hyperlipidemia: (10) Iron deficiency anemia: (11) GERD (gastroesophageal reflux disease): Plan Ulysses us a 61 year old male with history of T4 Paraplegia, recurrent UTI, HTN, HLD< GERD, MDD, bilateral hydronephrosis, and hepatic encephalopathy who prese nted to the ER for intermittent confusion, possible UTI, and sacral wounds. He was admitted for management of UTI with antibiotics and AMS. ED Course: Patient was given IV vancomycin and IV Zosyn.A culture of his sacral wounds was obtained.He received IV saline, 1 L. Urinary Tract Infection - History: S/p placement of bilateral ureteral stents for hydronephrosis, chronic indwelling catheter use, incontinence of bowel and bladder, Hx of resistant urinary infections - Required admission d/t displacement of ureteral stents in November - Vitals: Stable on presentation and at present, afebrile - Urinalysis: Evidence of UTI, triple phosphate + (Klebsiella vs Proteus?) - Blood Culture: Contaminant - Urine Culture: Pending, re-incubation - Labs: leukocytosis, anemia (8.3), thrombocytosis (chronic), BUN/Cr/GFR wnl - 01/06 Requested Pharmacy advisement regarding Abx: appreciate recommendations - 01/07 Blood culture + for coagulase negative staph (not lugdunensis), likely skin yessi contaminant, Urine culture w/ pinpoint growth (re-incubating) --- Anemia (7.7), improved, no active bleeding, low iron stores, continue PO iron, leukocytosis improved, hypokalemia improved (3.7) --- Continue Abx, unable to obtain speciation or sensitivities for urine, Urology consulted d/t bilateral stents, appreciate recommendations Incidental COVID-19 Infection - Sx Rhinorrhea, no chest pain or shortness of breath, vitals stable - Known emesis early this week - CXR: Subtle right lower lung reticulonodular interstitial thickening, could reflect a mild infectious process or mild aspiration pneumonitis - Elevated pro-calcitonin - Incentive laquita, flutter, PRN albuterol, PRN O2 - 01/05 ESR and CRP elevated - Isolation: Day 03/17 --- 01/08 Rhinorrhea present, patient otherwise asymptomatic, afebrile, lungs CTAB, oxygenating well on room air Altered Mental Status - Hx: Prior hepatic encephalopathy (prior admission in November) - No acute change in mental status (per patient and ), slow decline appreciated over last year - AO x 4 - CT Head: No acute intracranial findings. No change in appearance of the brain. Partially opacified right mastoid air cells. - Ammonia level wnl --- 01/06 - 01/08 Patient at baseline, AO x 4, occasional word finding difficulty (improving) Sacral Wounds - History: Patient has been developing sacral/gluteal pressure ulcers since his admission in November, patient notes increasing concern from his about the size of the wounds. - Sx: Ulysses notes that his wounds do not hurt him - PE: Stage II-III sacral and gluteal ulcerations - Re-position q2h - Tylenol and Tramadol ordered for pain PRN - 01/05 Wound nurse consulted, Vanc/Zosyn started - 01/06 Stage II-III, non-painful, continue abx, propose DigniShield to aid in wound healing --- 01/08 Patient evaluated by wound care, unable to stage, recommending surgical debridement, consult placed to General Surgery --- Wound cultures positive for MRSA, continue Abx Chronic Constipation - History: Discharged from last admission on Linzess, Senna, and PRN Miralax/Colace, gave patient enema 01/05 - CTAP: Improvement of impaction from last admission w/o obstruction - Continue home regimen Chronic Conditions: * Depression - Continue fluoxetine * Hypertension - No home medication regimen, monitor inpatient * Hyperlipidemia - Chronic, chronic elevation of Alk Phos, increase Atorvastatin to 40 mg daily d/t hx of small vessel disease on MRI * Iron deficiency anemia - Continue Iron and Vit C * GERD (gastroesophageal reflux disease) - Continue Omeprazole Diet:Reg IVF: LR @ 80 DVT PPx: Kamar/SCD Dispo:Tele Code Status: Full Admission and Anticipated Discharge Date Admission Date: January 05, 2022 Supervising Physician Co-Signing Physician Notes I personally examined the patient and verified all pleitez points of history and exam, discussed case, and agree with decision making with Dr Flower No new physical complaints. Updated patienthe expressed understanding. Vitals noted, in general he is awake and alert pleasant no distress. HEENT normocephalic atraumatic mucous membranes moist. Breathing unlabored no accessory muscle use good effort. Skin shows no rashes no pallor or icterus. Sacral wound picture better depicted in wound care image 1. Urinary tract infection. Clinically appears to be improvingcontinue current antibiotics 2. Aspiration PNA on CXR. Right lower lobe opacity. 98% on room air no respiratory distressprobably treated 3. COVID positive. Does have some mild rhinorrhea but no cough or shortness of breath. 4. Sacral wound. Continue current antibioticswound nurse noted need for surgical consultplaced 5. Word finding difficulty. waxes and wanes. MRI Brain in March 2021 noted moderate atrophy and small vessel disease; again demonstrated on CT Head in Nov 2021. Also noted history of TIA. Increased atorvastatin to 40mg. Check B12. 6. Anemia. Hx of iron deficiency anemia. Did have iron infusions in the past. Check iron panel with AM labs. Continue daily PO iron supplement. Dispo: pending clinical improvement. Subjective Ulysses us a 61 year old male with history of T4 Paraplegia, recurrent UTI, HTN, HLD< GERD, MDD, bilateral hydronephrosis, and hepatic encephalopathy who presented to the ER for intermittent confusion, possible UTI, and sacral wounds. He was admitted for management of UTI with antibiotics and AMS. Patient's Camp was changed in the ER. 01/08: Patient watching TV in bed comfortably on arrival. Patient notes that he is feeling well today, he believes his word finding has improved. He is no longer having neck pain and has no headaches. He denies any chest pain, dyspnea, or congestion. He is not experiencing any urinary discomfort or sacral discomfort. 01/07: Patient positioned comfortably in bed upon arrival. He notes that he is f eeling well today, his only concern is that he has some muscular neck pain, he notes that it is aggravated when he is looking up towards the TV. Patient denies any dysuria or abdominal pain. He is not experiencing any chest pain or dyspnea. He continues to have mild rhinorrhea, but no sinus congestion or pressure. Patient endorsed ongoing, episodic difficulty with word finding. Patient's provided insight that it is common for him to have increasing bouts of word finding difficulty when he has an infection. Review of Systems Review of Systems: As per HPI Physical Exam Physical Exam: Gen: NAD, alert, interactive, AO x4, occasional word finding difficulty (improved) HEENT: Mild rhinorrhea w/o nasal congestion Resp:Non-labored, no wheezing/rhonchi/rales, CTAB CV:RRR, normal S1/S2, no M/R/G Abd: Soft, non-distended, no TTP, normoactive bowels, no masses Extr: Paraplegia, atrophy of muscles of LLE bilaterally, dry-scaling skin present on bilateral feet, 2+ distal pulses w/o edema Skin: Sacral and gluteal ulcers present (unstaged) Results & Data Results & Data ([facility]) Vital Signs (Past 12 Hours) Vital Signs Temp Pulse Pulse Resp BP Pulse Ox O2 Del Method 01/08/22 04:23 36.4 C L 74 20 126/83 98 Room Air 01/07/22 22:16 84 01/07/22 22:17 36.6 C 92 H 20 133/73 96 Room Air 01/07/22 19:42 36.8 C 87 18 115/73 96 Room Air Resident Activity Tracking Resident Involvement: Resident Care Provided Care Provided: Adult Hospital Medicine (1) Iron deficiency anemia Iron deficiency anemia type: inadequate dietary iron intake Qualified Code(s): D50.8 - Other iron deficiency anemias (2) GERD (gastroesophageal reflux disease) Esophagitis presence: without esophagitis Qualified Code(s): K21.9 - Gastro- esophageal reflux disease without esophagitis
[2022-01-08] MEDS: ASPIRIN 81 MG ECTAB PO SCH (09:00)
[2022-01-08] MEDS: FLUoxetine HCL 20 MG CAP PO SCH (09:00)
[2022-01-08] MEDS: MULTIVITAMIN TAB PO SCH (09:00)
[2022-01-08] MEDS: PANTOprazole 40 MG TAB PO SCH ×2 (09:00→22:04)
[2022-01-08] MEDS: FERROUS SULFATE 325 MG TAB PO SCH (09:00)
[2022-01-08] MEDS: LINACLOTIDE 145 MCG CAPSULE PO SCH (09:00)
[2022-01-08] MEDS: ASCORBIC ACID 500 MG TAB PO SCH ×2 (09:00→22:04)
[2022-01-08] MEDS: ATORVASTATIN 40 MG TAB PO SCH (09:01)
[2022-01-08] MEDS: SENNA 8.6 MG TAB PO SCH ×2 (09:02→22:05)
[2022-01-08 09:10] LABS: Basophils # (auto) 0.17 K/uL (0-0.2); Basophils % (auto) 1.4 %; Eosinophils # (auto) 0.54 K/uL (0-0.50); Eosinophils % (auto) 4.4 %; Hematocrit (blood only) 24.1 % (40.1-51.0); Hemoglobin 7.7 g/dl (14.0-18.0); Immature Granulocytes % (auto) 0.8 %; Lymphocytes # (auto) 2.63 K/uL (1.2-3.4); Lymphocytes % (auto) 21.4 %; Mean Corpuscular Hemoglobin 26.2 pg (25.0-34.0); Monocytes # (auto) 1.05 K/uL (0.24-0.82); Monocytes % (auto) 8.6 %; Neutrophils # (auto) 7.79 K/uL (1.4-6.5); Neutrophils % (auto) 63.4 %; Platelet Count 600 K/uL (130-400); RDW Coefficient of Variation 16.6 % (11.5-14.5); RDW Standard Deviation 49.2 fL (36.4-46.3); Red Blood Count 2.94 M/uL (4.63-6.08); White Blood Count 12.28 K/ul (4.8-10.8)
[2022-01-08 09:41] LABS: Acanthocytes 1+; Target Cells 1+; Toxic Granulation 1+
[2022-01-08 09:44] LABS: Albumin Globulin Ratio 0.5 (0.9-2); Albumin Level 1.8 gm/dl (3.4-5.0); BUN Creatinine Ratio 19.2 (10-20); Bilirubin,Total 0.3 mg/dl (0.2-1.0); Calcium 7.1 mg/dl (8.5-10.1); Creatinine Clr Calc Pharmacy 90.7 ml/min; Est GFR (African American) 113.7 ml/min; Est GFR (Non-African American) 98.1 ml/min; Potassium 3.7 mmol/L (3.5-5.1); Total Protein 5.8 gm/dl (6.0-8.3)
[2022-01-08 09:57] LABS: Ferritin 155.3 ng/ml (8-388)
--- NOTE | 2022-01-08 18:20 | Billing Data ---
Date of Service January 08, 2022 Coding Level of Care Code 05479 Subseq Hosp Care Lvl 3
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
[2022-01-08] MEDS: ENOXAPARIN INJ 40 MG/0.4 ML SYR SQ SCH (22:02)
[2022-01-08] MEDS: AMITRIPTYLINE HCL 50 MG TAB PO SCH (22:05)
[2022-01-09] MEDS: VANCOMYCIN HCL 750 MG in SODIUM CHLORIDE 0.9% 250 ML IV SCH ×2 (04:41→16:31)
[2022-01-09] MEDS: PIPERACILLIN/TAZOBACTAM 4.5 GM in DEXTROSE 5% 100 ML IV SCH ×3 (05:43→22:46)
[2022-01-09] MEDS: oxyCODONE/ACETAMINOPHEN 5mg/325mg TAB PO PRN ×3 (06:11→19:52)
--- NOTE | 2022-01-09 07:14 | Hospitalist Progress Note ---
Date of Service January 09, 2022 Assessment & Plan (1) UTI (urinary tract infection): (2) COVID-19: (3) Sacral wound: (4) Confusion: (5) S/P ureteral stent placement: (6) Constipation: (7) Depression: (8) Hypertension: (9) Hyperlipidemia: (10) Iron deficiency anemia: (11) GERD (gastroesophageal reflux disease): Plan Ulysses us a 61 year old male with history of T4 Paraplegia, recurrent UTI, HTN, HLD< GERD, MDD, bilateral hydronephrosis, and hepatic encephalopathy who prese nted to the ER for intermittent confusion, possible UTI, and sacral wounds. He was admitted for management of UTI with antibiotics and AMS. ED Course: Patient was given IV Vancomycin and IV Zosyn.A culture of his sacral wounds was obtained.He received IV saline, 1 L. Urinary Tract Infection - History: S/p placement of bilateral ureteral stents for hydronephrosis, chronic indwelling catheter use, incontinence of bowel and bladder, Hx of resistant urinary infections - Required admission d/t displacement of ureteral stents in November - Vitals: Stable on presentation and at present, afebrile - Urinalysis: Evidence of UTI, triple phosphate + (Klebsiella vs Proteus?) - Blood Culture: Contaminant - Urine Culture: Pending, re-incubation - Labs: leukocytosis, anemia (8.3), thrombocytosis (chronic), BUN/Cr/GFR wnl - 01/06 Requested Pharmacy advisement regarding Abx: appreciate recommendations - 01/07 Blood culture + for coagulase negative staph (not lugdunensis), likely skin yessi contaminant, Urine culture w/ pinpoint growth (re-incubating) --- 01/09 Urology team evaluated patient, recommending postponement of stent replacement until acute COVID-19 resolution --- Anemia (7.9 rising), no active bleeding, low iron stores, continue PO iron, leukocytosis improved, hypokalemia improved (3.5) --- Continue Abx, unable to obtain speciation or sensitivities for urine Incidental COVID-19 Infection - Sx Rhinorrhea, no chest pain or shortness of breath, vitals stable - Known emesis early this week - CXR: Subtle right lower lung reticulonodular interstitial thickening, could reflect a mild infectious process or mild aspiration pneumonitis - Elevated pro-calcitonin - Incentive laquita, flutter, PRN albuterol, PRN O2 - 01/05 ESR and CRP elevated - Isolation: Day 06/15 --- 01/09 Patient asymptomatic, afebrile, lungs CTAB, oxygenating well on room air Altered Mental Status - Hx: Prior hepatic encephalopathy (prior admission in November) - No acute change in mental status (per patient and ), slow decline appreciated over last year - AO x 4 - CT Head: No acute intracranial findings. No change in appearance of the brain. Partially opacified right mastoid air cells. - Ammonia level wnl --- 01/09 Patient at baseline, AO x 4, occasional word finding difficulty (improving) Sacral Wounds - History: Patient has been developing sacral/gluteal pressure ulcers since his admission in November, patient notes increasing concern from his about the size of the wounds. - Sx: Ulysses notes that his wounds do not hurt him - PE: Stage II-III sacral and gluteal ulcerations - Re-position q2h - Tylenol and Tramadol ordered for pain PRN - 01/05 Wound nurse consulted, Vanc/Zosyn started - 01/06 Unstaged, non-painful, continue abx, propose DigniShield to aid in wound healing - 01/08 Patient evaluated by wound care, unable to stage, recommending surgical d ebridement, consult placed to General Surgery, wound cultures positive for MRSA, continue Abx --- 01/09 Surgery team evaluated patient, recommending postponement of debridement until acute COVID-19 resolution --- Continue wound care Chronic Constipation - History: Discharged from last admission on Linzess, Senna, and PRN Miralax/Colace, gave patient enema 01/05 - CTAP: Improvement of impaction from last admission w/o obstruction - Continue home regimen Chronic Conditions: * Depression - Continue fluoxetine * Hypertension - No home medication regimen, monitor inpatient * Hyperlipidemia - Chronic, chronic elevation of Alk Phos, increase Atorvastatin to 40 mg daily d/t hx of small vessel disease on MRI * Iron deficiency anemia - Continue Iron and Vit C * GERD (gastroesophageal reflux disease) - Continue Omeprazole Diet:Reg IVF: None DVT PPx: Lovenox/SCD Dispo:Tele Code Status: Full Admission and Anticipated Discharge Date Admission Date: January 05, 2022 Supervising Physician Co-Signing Physician Notes I personally examined the patient and verified all pleitez points of history and exam, discussed case, and agree with decision making with Dr Flower Generally feeling better. Better appetite than before. Overall feeling more like himself. presentanswered all questions the best my ability and to her satisfaction. Reviewed wound pictures with patientshe was surprised. Vitals noted, in general he is awake and alert pleasant no distress. HEENT normocephalic atraumatic mucous membranes moist. Breathing unlabored no accessory muscle use good effort. Skin shows no rashes no pallor or icterus. Sacral wound picture better depicted in wound care image from yesterday 1.Urinary tract infection. Clinically appears to be improvingcontinue current antibiotics; anticipate discharge to [facility] type level of care on p.o. antibiotics followed by stent exchange while he is still on a course of antibiotics 2.Aspiration PNA on CXR. Right lower lobe opacity. 98% on room air no respiratory distressprobably treated with antibiotics for UTI and sacral wound 3.COVID positive. Does have some mild rhinorrhea but no cough or shortness of breath. 4.Sacral wound. Continue current antibioticswound nurse noted need for surgical consultfor debridement after he is further removed from his positive COVID test. Continue local wound care for now 5. Word finding difficulty. waxes and wanes. MRI Brain in March 2021 noted moderate atrophy and small vessel disease; again demonstrated on CT Head in Nov 2021. Also noted history of TIA. Increased atorvastatin to 40mg. B12 okay at 671 6. Anemia. Hx of iron deficiency anemia. Did have iron infusions in the past. Iron levels mostly consistent with chronic disease picture. Continue daily PO iron supplement. Dispo: Likely IV antibiotics for another day or 2 followed by SNF. Will need stent exchange and debridementbut probably will not be able to be done until next week due to positive COVID testdiscussed with patient and , they are okay with the plan of antibiotics/transfer to SNF level of care/outpatient stent exchange and debridement next week Subjective Ulysses us a 61 year old male with history of T4 Paraplegia, recurrent UTI, HTN, HLD< GERD, MDD, bilateral hydronephrosis, and hepatic encephalopathy who presented to the ER for intermittent confusion, possible UTI, and sacral wounds. He was admitted for management of UTI with antibiotics and AMS. Patient's Camp was changed in the ER. 01/09: Patient resting comfortably in bed upon arrival this morning. He continues to feel well and remains asymptomatic. Patient denies any chest pain, dyspnea, rhinorrhea, or congestion. He denies any abdominal pain, dysuria, or sacral pain. Patient is paraplegic and has not sensation from T4 inferiorly at baseline. He is not experiencing any fevers or chills and his neck pain remains resolved. Review of Systems Review of Systems: As per HPI Physical Exam Physical Exam: Gen: NAD, alert, interactive, AO x4, occasional word finding difficulty (improved) HEENT: No rhinorrhea or nasal congestion Resp:Non-labored, no wheezing/rhonchi/rales, CTAB CV:RRR, normal S1/S2, no M/R/G Abd: Soft, non-distended, no TTP, normoactive bowels, no masses Extr: Paraplegia, atrophy of muscles of LLE bilaterally, dry-scaling skin present on bilateral feet, 2+ distal pulses w/o edema Skin: Sacral and gluteal ulcers present (unstaged) Results & Data Results & Data ([facility]) Vital Signs (Past 12 Hours) Vital Signs Temp Pulse Pulse Resp BP BP Pulse Ox 01/09/22 04:00 36.6 C 68 18 148/88 H 97 01/08/22 22:13 75 01/08/22 23:46 36.7 C 81 18 113/74 97 01/08/22 19:24 36.7 C 77 20 100/65 91 O2 Del Method 01/09/22 04:00 Room Air 01/08/22 22:13 01/08/22 23:46 Room Air 01/08/22 19:24 Room Air Resident Activity Tracking Resident Involvement: Resident Care Provided Care Provided: Adult Hospital Medicine (1) Iron deficiency anemia Iron deficiency anemia type: inadequate dietary iron intake Qualified Code(s): D50.8 - Other iron deficiency anemias (2) GERD (gastroesophageal reflux disease) Esophagitis presence: without esophagitis Qualified Code(s): K21.9 - Gastro- esophageal reflux disease without esophagitis
[2022-01-09 07:16] LABS: Basophils # (auto) 0.18 K/uL (0-0.2); Basophils % (auto) 1.5 %; Eosinophils # (auto) 0.68 K/uL (0-0.50); Eosinophils % (auto) 5.5 %; Hemoglobin 7.9 g/dl (14.0-18.0); Immature Granulocytes # (auto) 0.14 K/uL (0.00-0.02); Immature Granulocytes % (auto) 1.1 %; Lymphocytes # (auto) 2.35 K/uL (1.2-3.4); Lymphocytes % (auto) 19.1 %; Mean Corpuscular Hgb Conc 32.9 g/dL (32.0-36.0); Mean Corpuscular Volume 81.9 fL (80.0-100.0); Mean Platelet Volume 8.9 fL (9.4-12.4); Monocytes # (auto) 0.93 K/uL (0.24-0.82); Monocytes % (auto) 7.6 %; Neutrophils # (auto) 8.02 K/uL (1.4-6.5); Neutrophils % (auto) 65.2 %; Platelet Count 582 K/uL (130-400); RDW Coefficient of Variation 17.4 % (11.5-14.5); RDW Standard Deviation 50.8 fL (36.4-46.3); Red Blood Count 2.93 M/uL (4.63-6.08)
[2022-01-09 07:35] LABS: Albumin Globulin Ratio 0.4 (0.9-2); Albumin Level 1.8 gm/dl (3.4-5.0); BUN Creatinine Ratio 24.2 (10-20); Bilirubin,Total 0.2 mg/dl (0.2-1.0); Calcium 7.3 mg/dl (8.5-10.1); Creatinine Clr Calc Pharmacy 107.9 ml/min; Est GFR (African American) 121.8 ml/min; Est GFR (Non-African American) 105.1 ml/min; Globulin 4.1 gm/dl (2.5-4.0); Potassium 3.5 mmol/L (3.5-5.1); Total Protein 5.9 gm/dl (6.0-8.3)
[2022-01-09 07:44] LABS: Poikilocytosis Present
[2022-01-09] MEDS: PANTOprazole 40 MG TAB PO SCH ×2 (08:40→19:51)
[2022-01-09] MEDS: ASCORBIC ACID 500 MG TAB PO SCH ×2 (08:40→19:52)
[2022-01-09] MEDS: ATORVASTATIN 40 MG TAB PO SCH (08:41)
[2022-01-09] MEDS: FLUoxetine HCL 20 MG CAP PO SCH (08:41)
[2022-01-09] MEDS: FERROUS SULFATE 325 MG TAB PO SCH (08:41)
[2022-01-09] MEDS: LINACLOTIDE 145 MCG CAPSULE PO SCH (08:41)
[2022-01-09] MEDS: ASPIRIN 81 MG ECTAB PO SCH (08:41)
[2022-01-09] MEDS: SENNA 8.6 MG TAB PO SCH ×2 (08:41→19:56)
[2022-01-09] MEDS: MULTIVITAMIN TAB PO SCH (08:41)
--- NOTE | 2022-01-09 09:09 | Urology Progress Note ---
Date of Service January 09, 2022 Assessment & Plan (1) Acute UTI: Plan: - Urology follow-up of acute UTI, bilateral ureteral stents in place. - Last bilateral ureteral stent exchange was 11/10/21. - Afebrile, lab work reviewed - creatinine 0.66, WBC 12.30. - Urine culture 01/05 - three types of organisms, all high counts, repeat collection on 01/06 showed three types of organisms, all moderate counts. - Blood cultures 01/05 - Coag neg staph not lugdunensis. - Continue broad-spectrum antibiotics per hospital team and narrow per sensitivity data when available. - Maintain Camp catheter for max urine drainage. - Patient will require ureteral stent exchange, however he has recently tested positive for COVID. - Plan to exchange ureteral stents after acute issues have resolved. - He can keep outpatient urology follow-up as scheduled to arrange next exchange. - will follow peripherally. Contact our service with any questions or acute changes in patient status. Admission and Anticipated Discharge Date Admission Date: January 05, 2022 Subjective Patient seen and examined at the bedside this AM. No acute issues overnight. Subjectively improving. Camp intact and draining yellow urine. No nausea or vomiting. No fever or chills. No shortness of breath. Pt also with sacral decubitus wound that grew out Staph aureus MRSA. On IV Vancomycin and Zosyn. Review of Systems Constitutional: as per Subjective / HPI Gastrointestinal: as per Subjective / HPI Genitourinary: + as per Subjective / HPI Physical Exam Constitutional: comfortable; no acute distress Respiratory: normal respiratory effort; no respiratory distress and no labored breathing Gastrointestinal (Abdomen): Inspection/Auscultation: abdomen normal to inspection; abdomen not distended Musculoskeletal: Head/Neck/Chest: normocephalic and head atraumatic Neurologic: awake Psychiatric: Orientation: alert and oriented x 3 Genitourinary: Camp intact and draining yellow urine Results & Data ([facility]) Vital Signs (Past 12 Hours) Vital Signs Temp Pulse Pulse Resp BP Pulse Ox O2 Del Method 01/09/22 08:06 36.6 C 68 18 142/63 H 93 Room Air 01/09/22 07:49 74 01/09/22 04:00 36.6 C 68 18 148/88 H 97 Room Air 01/08/22 22:13 75 01/08/22 23:46 36.7 C 81 18 113/74 97 Room Air PG Care Time/CCT Total # of Minutes Spent Total Time Spent with Patient: Total time spent is greater than 50% in coordination of care (as documented) at patient's floor/unit and/or counseling patient: Coding Level of Care Code 22655 Subseq Hosp Care Lvl 2 Diagnoses Acute UTI N39.0
--- NOTE | 2022-01-09 12:36 | Pharmacy Report ---
Pharmacy PK ABX Note - Date of Service January 09, 2022 - Assessment and Plan Assessment 01/09: Random level this morning predicts current regimen is therapeutic. Will continue current dosing. Monitor SCr, patient on zosyn + vanco. repeat urine also w/ 3+ bacteria. 01/07/22: Random level this morning predicts current regimen to be slightly supratherapeutic. Will decrease dose slightly. Sacral wound growing staph species, initial urine cx recommended repeat, repeat urine cx currently reincubating. 01/06/22 61 year old M receiving vancomycin nd zosyn for treatment of UTI/sacral wound. WBC elevated but is trending down. Pertinent microbiologic data includes: blood culture growing gpc in 1/4 bottles thus far. Biofire positive for staph species only indicating likely contaminant. Will order a random level for tomorrow. Day # 2 of antimicrobial therapy. Plan Vancomycin * Loading dose: 1250 mg IV x 1 (already administered) * Reduce Maintenance dose: 750 mg IV every 12 hours - continue * Regimen is predicted to achieve target AUC/KONSTANTIN of 400-600 mg/L.hr * Random level ordered for: 01/11/22 @1000 Pharmacy will continue to follow and will adjust dose/frequency as necessary. Thank you. Pharmacy has transitioned to AUC monitoring for vancomycin. AUC/KONSTANTIN is the preferred PK/PD target and is associated with decreased risk of nephrotoxicity compared to traditional trough targets.
--- NOTE | 2022-01-09 18:00 | Billing Data ---
Date of Service January 09, 2022 Coding Level of Care Code 48704 Subseq Hosp Care Lvl 3
[2022-01-09] MEDS: ENOXAPARIN INJ 40 MG/0.4 ML SYR SQ SCH (19:50)
[2022-01-09] MEDS: AMITRIPTYLINE HCL 50 MG TAB PO SCH (19:51)
[2022-01-09] MEDS: MELATONIN 3 MG TAB PO PRN (23:44)
[2022-01-10] MEDS: oxyCODONE/ACETAMINOPHEN 5mg/325mg TAB PO PRN ×4 (01:54→21:35)
[2022-01-10] MEDS: VANCOMYCIN HCL 750 MG in SODIUM CHLORIDE 0.9% 250 ML IV SCH ×2 (04:36→16:04)
[2022-01-10] MEDS: PIPERACILLIN/TAZOBACTAM 4.5 GM in DEXTROSE 5% 100 ML IV SCH ×3 (04:36→21:35)
--- NOTE | 2022-01-10 06:47 | Hospitalist Progress Note ---
Date of Service January 10, 2022 Assessment & Plan (1) UTI (urinary tract infection): (2) COVID-19: (3) Sacral wound: (4) Confusion: (5) S/P ureteral stent placement: (6) Constipation: (7) Depression: (8) Hypertension: (9) Hyperlipidemia: (10) Iron deficiency anemia: (11) GERD (gastroesophageal reflux disease): Plan Ulysses us a 61 year old male with history of T4 Paraplegia, recurrent UTI, HTN, HLD< GERD, MDD, bilateral hydronephrosis, and hepatic encephalopathy who prese nted to the ER for intermittent confusion, possible UTI, and sacral wounds. He was admitted for management of UTI with antibiotics and AMS. ED Course: Patient was given IV Vancomycin and IV Zosyn.A culture of his sacral wounds was obtained.He received IV saline, 1 L. Urinary Tract Infection - History: S/p placement of bilateral ureteral stents for hydronephrosis, chronic indwelling catheter use, incontinence of bowel and bladder, Hx of resistant urinary infections - Required admission d/t displacement of ureteral stents in November - Vitals: Stable on presentation and at present, afebrile - Urinalysis: Evidence of UTI, triple phosphate + (Klebsiella vs Proteus?) - Blood Culture: Contaminant - Urine Culture: Pending, re-incubation - Labs: leukocytosis, anemia (8.3), thrombocytosis (chronic), BUN/Cr/GFR wnl - 01/06 Requested Pharmacy advisement regarding Abx: appreciate recommendations - 01/07 Blood culture + for coagulase negative staph (not lugdunensis), likely skin yessi contaminant, Urine culture w/ pinpoint growth (re-incubating) - 01/09 Urology team evaluated patient, recommending postponement of stent replacement until acute COVID-19 resolution --- Anemia (8, improving), no active bleeding, low iron stores, continue PO iron, leukocytosis rising, hypokalemia (3.3) - repleted --- Continue Abx, unable to obtain speciation or sensitivities for urine Incidental COVID-19 Infection - Sx Rhinorrhea, no chest pain or shortness of breath, vitals stable - Known emesis early this week - CXR: Subtle right lower lung reticulonodular interstitial thickening, could reflect a mild infectious process or mild aspiration pneumonitis - Elevated pro-calcitonin - Incentive laquita, flutter, PRN albuterol, PRN O2 - 01/05 ESR and CRP elevated - Isolation: Day 06/15 --- Patient asymptomatic, afebrile, lungs CTAB, oxygenating well on room air Altered Mental Status - Hx: Prior hepatic encephalopathy (prior admission in November) - No acute change in mental status (per patient and ), slow decline appreciated over last year - AO x 4 - CT Head: No acute intracranial findings. No change in appearance of the brain. Partially opacified right mastoid air cells. - Ammonia level wnl --- Patient at baseline, AO x 4, occasional word finding difficulty (improving) Sacral Wounds - History: Patient has been developing sacral/gluteal pressure ulcers since his admission in November, patient notes increasing concern from his about the size of the wounds. - Sx: Ulysses notes that his wounds do not hurt him - PE: Stage II-III sacral and gluteal ulcerations - Re-position q2h - Tylenol and Tramadol ordered for pain PRN - 01/05 Wound nurse consulted, Vanc/Zosyn started - 01/06 Unstaged, non-painful, continue abx, propose DigniShield to aid in wound healing - 01/08 Patient evaluated by wound care, unable to stage, recommending surgical debridement, consult placed to General Surgery, wound cultures positive for MRSA, continue Abx --- Surgery team evaluated patient, recommending postponement of debridement until acute COVID-19 resolution --- Continue wound care Chronic Constipation - History: Discharged from last admission on Linzess, Senna, and PRN Miralax/Colace, gave patient enema 01/05 - CTAP: Improvement of impaction from last admission w/o obstruction - Continue home regimen Chronic Conditions: * Depression - Continue fluoxetine * Hypertension - No home medication regimen, monitor inpatient * Hyperlipidemia - Chronic, chronic elevation of Alk Phos, increase Atorvastatin to 40 mg daily d/t hx of small vessel disease on MRI * Iron deficiency anemia - Continue Iron and Vit C * GERD (gastroesophageal reflux disease) - Continue Omeprazole Diet:Reg IVF: None DVT PPx: Lovenox/SCD Dispo:IV Abx 1-2 days, SNF following inpatient, outpatient stent exchange and ulcer debridement, likely transition late next wk d/t + COVID Code Status: Full Admission and Anticipated Discharge Date Admission Date: January 05, 2022 Supervising Physician Co-Signing Physician Notes I personally examined the patient and verified all pleitez points of history and exam, discussed case, and agree with decision making with Dr Flower Feeling pretty good. No complaints. Case management working on SNF. Vitals noted, in general he is awake and alert pleasant no distress. HEENT normocephalic atraumatic mucous membranes moist. Breathing unlabored no accessory muscle use good effort. Skin shows no rashes no pallor or icterus. Sacral wound picture better depicted in wound care image from yesterday 1.Urinary tract infection. Clinically appears to be improvingcontinue current antibiotics IV; anticipate discharge to SNF type level of care on p.o. antibiotics followed by stent exchange while he is still on a course of antibiotics 2.Aspiration PNA on CXR. Right lower lobe opacity. 98% on room air no respiratory distressprobably treated with antibiotics for UTI and sacral wound 3.COVID positive. Does have some mild rhinorrhea but no cough or shortness of breath. 4.Sacral wound. Continue current antibioticswound nurse noted need for surgical consultfor debridement after he is further removed from his positive COVID test. Continue local wound care for now, and continue IV antibiotics 5. Word finding difficulty. waxes and wanes. MRI Brain in March 2021 noted moderate atrophy and small vessel disease; again demonstrated on CT Head in Nov 2021. Also noted history of TIA. Increased atorvastatin to 40mg. B12 okay at 671 6. Anemia. Hx of iron deficiency anemia. Did have iron infusions in the past. Iron levels mostly consistent with chronic disease picture. Continue daily PO iron supplement. Dispo: Continue antibioticsanticipate goal of transfer to SNF. Will need stent exchange and debridementbut probably will not be able to be done until next week due to positive COVID testdiscussed with patient and , they are okay with the plan of antibiotics/transfer to SNF level of care/outpatient stent exchange and debridement next week Subjective Ulysses is a 61 year old male with history of T4 Paraplegia, recurrent UTI, HTN, HLD, GERD, MDD, bilateral hydronephrosis, and hepatic encephalopathy who presented to the ER for intermittent confusion, possible UTI, and sacral wounds. He was admitted for management of UTI with antibiotics and AMS. Patient's Camp was changed in the ER. 01/10: Patient notes that he is feeling significantly improved today. He denies any chest pain, shortness of breath, or abdominal pain. He continues to be asymptomatic from his COVID infection and denies any rhinorrhea, congestion, or cough. Patient notes that he is not experiencing any urinary or sacral pain, but he does not have sensation below T4. 01/09: Patient resting comfortably in bed upon arrival this morning. He continues to feel well and remains asymptomatic. Patient denies any chest pain, dyspnea, rhinorrhea, or congestion. He denies any abdominal pain, dysuria, or sacral pain. Patient is paraplegic and has not sensation from T4 inferiorly at baseline. He is not experiencing any fevers or chills and his neck pain remains resolved. Review of Systems Review of Systems: As per HPI Physical Exam Physical Exam: Gen: NAD, alert, interactive, AO x4, occasional word finding difficulty (improved) HEENT: No rhinorrhea or nasal congestion Resp:Non-labored, no wheezing/rhonchi/rales, CTAB CV:RRR, normal S1/S2, no M/R/G Abd: Soft, non-distended, no TTP, normoactive bowels, no masses Extr: Paraplegia, atrophy of muscles of LLE bilaterally, dry-scaling skin present on bilateral feet, 2+ distal pulses w/o edema Skin: Sacral and gluteal ulcers present (unstaged) Results & Data Results & Data ([facility]) Vital Signs (Past 12 Hours) Vital Signs Temp Pulse Pulse Resp BP Pulse Ox O2 Del Method 01/10/22 06:24 36.5 C 72 20 150/89 H 94 Room Air 01/10/22 04:03 37.1 C 86 18 129/78 95 Room Air 01/09/22 22:25 88 01/09/22 23:35 36.6 C 87 20 105/68 94 Room Air 01/09/22 19:39 37 C 91 H 18 105/63 97 Room Air Resident Activity Tracking Resident Involvement: Resident Care Provided Care Provided: Adult Hospital Medicine (1) Iron deficiency anemia Iron deficiency anemia type: inadequate dietary iron intake Qualified Code(s): D50.8 - Other iron deficiency anemias (2) GERD (gastroesophageal reflux disease) Esophagitis presence: without esophagitis Qualified Code(s): K21.9 - Gastro- esophageal reflux disease without esophagitis
[2022-01-10 08:12] LABS: Basophils # (auto) 0.31 K/uL (0-0.2); Basophils % (auto) 2.1 %; Eosinophils # (auto) 0.66 K/uL (0-0.50); Eosinophils % (auto) 4.4 %; Hematocrit (blood only) 25.4 % (40.1-51.0); Immature Granulocytes % (auto) 1.3 %; Lymphocytes # (auto) 3.23 K/uL (1.2-3.4); Lymphocytes % (auto) 21.5 %; Mean Corpuscular Hgb Conc 31.5 g/dL (32.0-36.0); Mean Corpuscular Volume 82.5 fL (80.0-100.0); Monocytes # (auto) 1.15 K/uL (0.24-0.82); Monocytes % (auto) 7.6 %; Neutrophils % (auto) 63.1 %; Nucleated RBC # (auto) 0.02 K/uL (0-0); Nucleated RBC % (auto) 0.1 %; Platelet Count 730 K/uL (130-400); RDW Coefficient of Variation 17.9 % (11.5-14.5); RDW Standard Deviation 51.6 fL (36.4-46.3); Red Blood Count 3.08 M/uL (4.63-6.08); White Blood Count 15.05 K/ul (4.8-10.8)
[2022-01-10 08:37] LABS: Albumin Globulin Ratio 0.5 (0.9-2); Albumin Level 2.3 gm/dl (3.4-5.0); BUN Creatinine Ratio 26.2 (10-20); Bilirubin,Total 0.2 mg/dl (0.2-1.0); Calcium 7.7 mg/dl (8.5-10.1); Creatinine Clr Calc Pharmacy 112.6 ml/min; Est GFR (African American) 122.6 ml/min; Est GFR (Non-African American) 105.7 ml/min; Globulin 4.9 gm/dl (2.5-4.0); Potassium 3.3 mmol/L (3.5-5.1); Total Protein 7.2 gm/dl (6.0-8.3)
[2022-01-10] MEDS: ATORVASTATIN 40 MG TAB PO SCH (08:54)
[2022-01-10] MEDS: PANTOprazole 40 MG TAB PO SCH ×2 (08:54→21:22)
[2022-01-10] MEDS: SENNA 8.6 MG TAB PO SCH ×2 (08:54→21:22)
[2022-01-10] MEDS: ASCORBIC ACID 500 MG TAB PO SCH ×2 (08:54→21:22)
[2022-01-10] MEDS: LINACLOTIDE 145 MCG CAPSULE PO SCH (08:54)
[2022-01-10] MEDS: FLUoxetine HCL 20 MG CAP PO SCH (08:54)
[2022-01-10] MEDS: ASPIRIN 81 MG ECTAB PO SCH (08:55)
[2022-01-10] MEDS: FERROUS SULFATE 325 MG TAB PO SCH (08:55)
[2022-01-10] MEDS: MULTIVITAMIN TAB PO SCH (08:55)
--- NOTE | 2022-01-10 17:20 | Billing Data ---
Date of Service January 10, 2022 Coding Level of Care Code 31116 Subseq Hosp Care Lvl 3
[2022-01-10] MEDS ORDERED: POTASSIUM CHLORIDE CRTAB 20 MEQ TABCR PO ONE (18:27)
[2022-01-10] MEDS: ENOXAPARIN INJ 40 MG/0.4 ML SYR SQ SCH (21:21)
[2022-01-10] MEDS: MELATONIN 3 MG TAB PO PRN (21:35)
[2022-01-11] MEDS: VANCOMYCIN HCL 750 MG in SODIUM CHLORIDE 0.9% 250 ML IV SCH (04:13)
[2022-01-11] MEDS: oxyCODONE/ACETAMINOPHEN 5mg/325mg TAB PO PRN ×4 (04:13→22:27)
[2022-01-11] MEDS: PIPERACILLIN/TAZOBACTAM 4.5 GM in DEXTROSE 5% 100 ML IV SCH ×3 (05:39→22:32)
[2022-01-11 07:55] LABS: Basophils # (auto) 0.19 K/uL (0-0.2); Basophils % (auto) 1.4 %; Eosinophils # (auto) 0.49 K/uL (0-0.50); Eosinophils % (auto) 3.5 %; Hemoglobin 7.5 g/dl (14.0-18.0); Immature Granulocytes # (auto) 0.12 K/uL (0.00-0.02); Immature Granulocytes % (auto) 0.9 %; Lymphocytes # (auto) 2.46 K/uL (1.2-3.4); Lymphocytes % (auto) 17.6 %; Mean Corpuscular Hemoglobin 26.9 pg (25.0-34.0); Mean Corpuscular Hgb Conc 32.6 g/dL (32.0-36.0); Mean Corpuscular Volume 82.4 fL (80.0-100.0); Mean Platelet Volume 8.8 fL (9.4-12.4); Monocytes # (auto) 0.99 K/uL (0.24-0.82); Monocytes % (auto) 7.1 %; Neutrophils # (auto) 9.74 K/uL (1.4-6.5); Neutrophils % (auto) 69.5 %; Platelet Count 611 K/uL (130-400); RDW Coefficient of Variation 18.1 % (11.5-14.5); RDW Standard Deviation 51.3 fL (36.4-46.3); Red Blood Count 2.79 M/uL (4.63-6.08); White Blood Count 13.99 K/ul (4.8-10.8)
--- NOTE | 2022-01-11 08:05 | Hospitalist Progress Note ---
Date of Service January 11, 2022 Assessment & Plan (1) UTI (urinary tract infection): (2) COVID-19: (3) Sacral wound: (4) Confusion: (5) S/P ureteral stent placement: (6) Constipation: (7) Depression: (8) Hypertension: (9) Hyperlipidemia: (10) Iron deficiency anemia: (11) GERD (gastroesophageal reflux disease): Plan Ulysses us a 61 year old male with history of T4 Paraplegia, recurrent UTI, HTN, HLD< GERD, MDD, bilateral hydronephrosis, and hepatic encephalopathy who pres ented to the ER for intermittent confusion, possible UTI, and sacral wounds. He was admitted for management of UTI with antibiotics and AMS. ED Course: Patient was given IV Vancomycin and IV Zosyn.A culture of his sacral wounds was obtained.He received IV saline, 1 L. Urinary Tract Infection - History: S/p placement of bilateral ureteral stents for hydronephrosis, chronic indwelling catheter use, incontinence of bowel and bladder, Hx of resistant urinary infections - Required admission d/t displacement of ureteral stents in November - Vitals: Stable on presentation and at present, afebrile - Urinalysis: Evidence of UTI, triple phosphate + (Klebsiella vs Proteus?) - Blood Culture: Contaminant - Urine Culture: Pending, re-incubation - Labs: leukocytosis, anemia (8.3), thrombocytosis (chronic), BUN/Cr/GFR wnl - 01/06 Requested Pharmacy advisement regarding Abx: appreciate recommendations - 01/07 Blood culture + for coagulase negative staph (not lugdunensis), likely skin yessi contaminant, Urine culture w/ pinpoint growth (re-incubating) --- Urology evaluated patient, recommending postponement of stent replacement until acute COVID-19 resolution (~ 2 wks) --- Anemia (7.5, variable, following), no active bleeding, low iron stores, continue PO iron --- Leukocytosis improved, hypokalemia (resolved) --- Continue Abx (Day 6) Incidental COVID-19 Infection - Sx Rhinorrhea, no chest pain or shortness of breath, vitals stable - Known emesis early this week - CXR: Subtle right lower lung reticulonodular interstitial thickening, could reflect a mild infectious process or mild aspiration pneumonitis - Elevated pro-calcitonin - Incentive laquita, flutter, PRN albuterol, PRN O2 - 01/05 ESR and CRP elevated - Isolation: Day 06/15 --- Patient asymptomatic, afebrile, lungs CTAB, oxygenating well on room air Altered Mental Status - Hx: Prior hepatic encephalopathy (prior admission in November) - No acute change in mental status (per patient and ), slow decline appreciated over last year - AO x 4 - CT Head: No acute intracranial findings. No change in appearance of the brain. Partially opacified right mastoid air cells. - Ammonia level wnl --- Patient at baseline, AO x 4, occasional word finding difficulty (resolved) Sacral Wounds - History: Patient has been developing sacral/gluteal pressure ulcers since his admission in November, patient notes increasing concern from his about the size of the wounds. - Sx: Ulysses notes that his wounds do not hurt him - PE: Stage II-III sacral and gluteal ulcerations - Re-position q2h - Tylenol and Tramadol ordered for pain PRN - 01/05 Wound nurse consulted, Vanc/Zosyn started - 01/06 Unstaged, non-painful, continue abx, propose DigniShield to aid in wound healing - 01/08 Patient evaluated by wound care, unable to stage, recommending surgical debridement, consult placed to General Surgery, wound cultures positive for MRSA, continue Abx --- Surgery team evaluated patient, recommending postponement of debridement until acute COVID-19 resolution --- Continue wound care Chronic Constipation - History: Discharged from last admission on Linzess, Senna, and PRN Miralax/Colace, gave patient enema 01/05 - CTAP: Improvement of impaction from last admission w/o obstruction - Continue home regimen Chronic Conditions: * Depression - Continue fluoxetine * Hypertension - No home medication regimen, monitor inpatient * Hyperlipidemia - Chronic, chronic elevation of Alk Phos, increase Atorvastatin to 40 mg daily d/t hx of small vessel disease on MRI * Iron deficiency anemia - Continue Iron and Vit C * GERD (gastroesophageal reflux disease) - Continue Omeprazole Diet:Reg IVF: None DVT PPx: Lovenox/SCD Dispo: SNF following inpatient, outpatient stent exchange and ulcer debridement, pending placement Code Status: Full Admission and Anticipated Discharge Date Admission Date: January 05, 2022 Supervising Physician Co-Signing Physician Notes I personally examined the patient and verified all pleitez points of history and exam, discussed case, and agree with decision making with Dr Flower Feeling pretty good yet again. No complaints. Case management working on SNF. He is pleased with his progress Vitals noted, in general he is awake and alert pleasant no distress. HEENT normocephalic atraumatic mucous membranes moist. Breathing unlabored no accessory muscle use good effort. Skin shows no rashes no pallor or icterus. Sacral wound picture better depicted in wound care image from previously 1.Urinary tract infection due to indwelling Camp. Clinically appears to be improvingcontinue current antibiotics IV; anticipate discharge to SNF type level of careat that time can switch to p.o. antibiotics, will would continue on antibiotics until stent exchange 2.Aspiration PNA on CXR. Right lower lobe opacity. 98% on room air no respiratory distressprobably treated with antibiotics for UTI and sacral wound 3.COVID positive. Does have some mild rhinorrhea but no cough or shortness of breath. 4.Sacral wound. Continue current antibioticswound nurse noted need for surgical consultfor debridement after he is further removed from his positive COVID test. Continue local wound care for now, and continue IV antibioticsagain much like UTIat discharge can switch to p.o. antibiotics but would remain on antibiotics probably until debridement 5. Word finding difficulty. waxes and wanes. MRI Brain in March 2021 noted moderate atrophy and small vessel disease; again demonstrated on CT Head in Nov 2021. Also noted history of TIA. Increased atorvastatin to 40mg. B12 okay at 671 6. Anemia. Hx of iron deficiency anemia. Did have iron infusions in the past. Iron levels mostly consistent with chronic disease picture. Continue daily PO iron supplement. Dispo: Continue antibioticsanticipate goal of transfer to SNF. Will need stent exchange and debridementbut probably will not be able to be done until next week due to positive COVID testdiscussed with patient and , they are okay with the plan of antibiotics/transfer to SNF level of care/outpatient stent exchange and debridement next week Subjective Ulysses is a 61 year old male with history of T4 Paraplegia, recurrent UTI, HTN, HLD, GERD, MDD, bilateral hydronephrosis, and hepatic encephalopathy who presented to the ER for intermittent confusion, possible UTI, and sacral wounds. He was admitted for management of UTI with antibiotics and AMS. Patient's Camp was changed in the ER. 01/11: Patient continues to feel well and is in good spirits. He continues to experience his chronic back pain, but symptoms are much resolved with his home medications. He notes that his appetite has much increased since presentation and he has been eating well. He denies dyspnea, pleuritic pain, congestion, or rhinorrhea. He denies any chest pain or palpitations. He is not experiencing any fevers, chills, nausea or emesis. 01/10: Patient notes that he is feeling significantly improved today. He denies any chest pain, shortness of breath, or abdominal pain. He continues to be asymptomatic from his COVID infection and denies any rhinorrhea, congestion, or cough. Patient notes that he is not experiencing any urinary or sacral pain, but he does not have sensation below T4. Review of Systems Review of Systems: As per HPI Physical Exam Physical Exam: Gen: NAD, alert, interactive, AO x4, occasional word finding difficulty (improved) HEENT: No rhinorrhea or nasal congestion Resp:Non-labored, no wheezing/rhonchi/rales, CTAB CV:RRR, normal S1/S2, no M/R/G Abd: Soft, non-distended, no TTP, normoactive bowels, no masses Extr: Paraplegia, atrophy of muscles of LLE bilaterally, dry-scaling skin present on bilateral feet, 2+ distal pulses w/o edema Skin: Sacral and gluteal ulcers present (unstaged) Results & Data Results & Data ([facility]) Vital Signs (Past 12 Hours) Vital Signs Temp Pulse Pulse Resp BP Pulse Ox O2 Del Method 01/11/22 06:32 36.6 C 84 18 152/80 H 96 Room Air 01/11/22 03:11 36.5 C 86 18 122/77 98 Room Air 01/10/22 22:10 92 H 01/10/22 23:17 36.8 C 90 18 114/73 96 Room Air Resident Activity Tracking Resident Involvement: Resident Care Provided Care Provided: Adult Hospital Medicine (1) Iron deficiency anemia Iron deficiency anemia type: inadequate dietary iron intake Qualified Code(s): D50.8 - Other iron deficiency anemias (2) GERD (gastroesophageal reflux disease) Esophagitis presence: without esophagitis Qualified Code(s): K21.9 - Gastro- esophageal reflux disease without esophagitis
[2022-01-11 08:21] LABS: Poikilocytosis Present; Polychromasia 1+
[2022-01-11 08:25] LABS: Albumin Globulin Ratio 0.5 (0.9-2); Albumin Level 2.1 gm/dl (3.4-5.0); BUN Creatinine Ratio 33.3 (10-20); Bilirubin,Total 0.2 mg/dl (0.2-1.0); Calcium 7.7 mg/dl (8.5-10.1); Creatinine Clr Calc Pharmacy 121.3 ml/min; Est GFR (African American) 126.7 ml/min; Est GFR (Non-African American) 109.3 ml/min; Globulin 4.4 gm/dl (2.5-4.0); Potassium 3.5 mmol/L (3.5-5.1); Total Protein 6.5 gm/dl (6.0-8.3)
[2022-01-11] MEDS: ATORVASTATIN 40 MG TAB PO SCH (08:37)
[2022-01-11] MEDS: FERROUS SULFATE 325 MG TAB PO SCH (08:37)
[2022-01-11] MEDS: MULTIVITAMIN TAB PO SCH (08:37)
[2022-01-11] MEDS: PANTOprazole 40 MG TAB PO SCH ×2 (08:37→22:29)
[2022-01-11] MEDS: FLUoxetine HCL 20 MG CAP PO SCH (08:37)
[2022-01-11] MEDS: SENNA 8.6 MG TAB PO SCH ×2 (08:38→22:30)
[2022-01-11] MEDS: LINACLOTIDE 145 MCG CAPSULE PO SCH (08:38)
[2022-01-11] MEDS: ASPIRIN 81 MG ECTAB PO SCH (08:39)
[2022-01-11] MEDS: ASCORBIC ACID 500 MG TAB PO SCH ×2 (08:39→22:29)
--- NOTE | 2022-01-11 12:58 | Pharmacy Report ---
Pharmacy PK ABX Note - Date of Service January 11, 2022 - Assessment and Plan Assessment 01/11: Random vanc lavel obtained this morning predicts lower AUC/KONSTANTIN than desired. Dose increased. 01/09: Random level this morning predicts current regimen is therapeutic. Will continue current dosing. Monitor SCr, patient on zosyn + vanco. repeat urine also w/ 3+ bacteria. 01/07/22: Random level this morning predicts current regimen to be slightly supratherapeutic. Will decrease dose slightly. Sacral wound growing staph species, initial urine cx recommended repeat, repeat urine cx currently reincubating. 01/06/22 61 year old M receiving vancomycin nd zosyn for treatment of UTI/sacral wound. WBC elevated but is trending down. Pertinent microbiologic data includes: blood culture growing gpc in 1/4 bottles thus far. Biofire positive for staph species only indicating likely contaminant. Will order a random level for tomorrow. Day # 2 of antimicrobial therapy. Plan Vancomycin * Loading dose: 1250 mg IV x 1 (already administered) * Increase Maintenance dose to 1000 mg IV every 12 hours * Regimen is predicted to achieve target AUC/KONSTANTIN of 400-600 mg/L.hr * No further levels have been ordered at this time. If patient remains on vancomycin therapy, will re-consider the need for additional levels in 1-2 days. Pharmacy will continue to follow and will adjust dose/frequency as necessary. Thank you. Pharmacy has transitioned to AUC monitoring for vancomycin. AUC/KONSTANTIN is the preferred PK/PD target and is associated with decreased risk of nephrotoxicity compared to traditional trough targets.
[2022-01-11] MEDS: VANCOMYCIN HCL 1,000 MG in SODIUM CHLORIDE 0.9% 250 ML IV SCH (17:36)
--- NOTE | 2022-01-11 18:10 | Billing Data ---
Date of Service January 11, 2022 Coding Level of Care Code 96577 Subseq Hosp Care Lvl 2
[2022-01-11] MEDS: MELATONIN 3 MG TAB PO PRN (22:27)
[2022-01-11] MEDS: ENOXAPARIN INJ 40 MG/0.4 ML SYR SQ SCH (22:30)
[2022-01-11] MEDS: AMITRIPTYLINE HCL 50 MG TAB PO SCH ×2 (23:35)
[2022-01-12] MEDS: VANCOMYCIN HCL 1,000 MG in SODIUM CHLORIDE 0.9% 250 ML IV SCH ×2 (05:05→17:29)
[2022-01-12] MEDS: PIPERACILLIN/TAZOBACTAM 4.5 GM in DEXTROSE 5% 100 ML IV SCH ×2 (06:39→13:28)
--- NOTE | 2022-01-12 06:53 | Hospitalist Progress Note ---
Date of Service January 12, 2022 Assessment & Plan (1) UTI (urinary tract infection): (2) COVID-19: (3) Sacral wound: (4) Confusion: (5) S/P ureteral stent placement: (6) Constipation: (7) Depression: (8) Hypertension: (9) Hyperlipidemia: (10) Iron deficiency anemia: (11) GERD (gastroesophageal reflux disease): Plan Ulysses us a 61 year old male with history of T4 Paraplegia, recurrent UTI, HTN, HLD< GERD, MDD, bilateral hydronephrosis, and hepatic encephalopathy who pres ented to the ER for intermittent confusion, possible UTI, and sacral wounds. He was admitted for management of UTI with antibiotics and AMS. ED Course: Patient was given IV Vancomycin and IV Zosyn.A culture of his sacral wounds was obtained.He received IV saline, 1 L. Urinary Tract Infection - History: S/p placement of bilateral ureteral stents for hydronephrosis, chronic indwelling catheter use, incontinence of bowel and bladder, Hx of resistant urinary infections - Required admission d/t displacement of ureteral stents in November - Vitals: Stable on presentation and at present, afebrile - Urinalysis: Evidence of UTI, triple phosphate + (Klebsiella vs Proteus?) - Blood Culture: Contaminant - Urine Culture: Pending, re-incubation - Labs: leukocytosis, anemia (8.3), thrombocytosis (chronic), BUN/Cr/GFR wnl - 01/06 Requested Pharmacy advisement regarding Abx: appreciate recommendations - 01/07 Blood culture + for coagulase negative staph (not lugdunensis), likely skin yessi contaminant, Urine culture w/ pinpoint growth (re-incubating) --- Urology evaluated patient, recommending postponement of stent replacement until acute COVID-19 resolution (~ 2 wks) --- Anemia (7.4, variable, following), no active bleeding, low iron stores, continue PO iron --- Leukocytosis (15.4), hypokalemia (3.1, repleted with 40 mEq KCl PO, recheck in AM) --- Discontinued Zosyn (Day 7/) Sacral Wounds - History: Patient has been developing sacral/gluteal pressure ulcers since his admission in November, patient notes increasing concern from his about the size of the wounds. - Sx: Ulysses notes that his wounds do not hurt him - PE: Stage II-III sacral and gluteal ulcerations - Re-position q2h - Tylenol and Tramadol ordered for pain PRN - 01/05 Wound nurse consulted, Vanc/Zosyn started - 01/06 Unstaged, non-painful, continue abx, propose DigniShield to aid in wound healing - 01/08 Patient evaluated by wound care, unable to stage, recommending surgical debridement, consult placed to General Surgery, wound cultures positive for MRSA, continue Abx --- Surgery team evaluated patient, recommending postponement of debridement until acute COVID-19 resolution --- Continue wound care --- Continue Vancomycin d/t MRSA + wound cultures, Day 7, likely continued until debridement Altered Mental Status - Hx: Prior hepatic encephalopathy (prior admission in November) - No acute change in mental status (per patient and ), slow decline appreciated over last year - AO x 4 - CT Head: No acute intracranial findings. No change in appearance of the brain. Partially opacified right mastoid air cells. - Ammonia level wnl --- Patient at baseline, AO x 4, occasional word finding difficulty (resolved) Incidental COVID-19 Infection - Sx Rhinorrhea, no chest pain or shortness of breath, vitals stable - Known emesis early this week - CXR: Subtle right lower lung reticulonodular interstitial thickening, could reflect a mild infectious process or mild aspiration pneumonitis - Elevated pro-calcitonin - Incentive laquita, flutter, PRN albuterol, PRN O2 - 01/05 ESR and CRP elevated - Isolation: Day 06/15 --- Patient asymptomatic, afebrile, lungs CTAB, oxygenating well on room air Chronic Constipation - History: Discharged from last admission on Linzess, Senna, and PRN Miralax/Colace, gave patient enema 01/05 - CTAP: Improvement of impaction from last admission w/o obstruction - Continue home regimen Chronic Conditions: * Depression - Continue fluoxetine * Hypertension - No home medication regimen, monitor inpatient * Hyperlipidemia - Chronic, chronic elevation of Alk Phos, increase Atorvastatin to 40 mg daily d/t hx of small vessel disease on MRI * Iron deficiency anemia - Continue Iron and Vit C * GERD (gastroesophageal reflux disease) - Continue Omeprazole Diet:Reg IVF: None DVT PPx: Lovenox/SCD Dispo: SNF following inpatient, outpatient stent exchange and ulcer debridement, pending placement Code Status: Full Admission and Anticipated Discharge Date Admission Date: January 05, 2022 Supervising Physician Co-Signing Physician Notes I personally examined the patient and verified all pleitez points of history and exam, discussed case, and agree with decision making with Dr Flower Feeling good overall. Case management still working on SNF. Patient relates that he and his are working on plans post discharge from all facilities. No complaints, eating well. Vitals noted, in general he is awake and alert pleasant no distress. HEENT normocephalic atraumatic mucous membranes moist. Breathing unlabored no accessory muscle use good effort. Skin shows no rashes no pallor or icterus. Sacral wound picture better depicted in wound care image from previouslywe reviewed with patient 1.Urinary tract infection due to indwelling Camp. Clinically appears to b e improvingcontinue current antibiotics IV; anticipate discharge to SNF type level of careat that time can switch to p.o. antibiotics, continue IV until time of discharge. Given that his hospitalization may be prolonged while awaiting SNF, if he is still in the hospital at the beginning of next week, will check with urology about possibly doing the stent exchange that 2.Aspiration PNA on CXR. Right lower lobe opacity. 98% on room air no respiratory distressprobably treated with antibiotics for UTI and sacral wound 3.COVID positive. Does have some mild rhinorrhea but no cough or shortness of breath. 4.Sacral wound. Continue current antibioticswound nurse noted need for surgical consultfor debridement after he is further removed from his positive COVID test. Continue local wound care for now, and continue IV antibioticsagain much like UTIat discharge can switch to p.o. antibiotics but would remain on antibiotics probably until debridementmuch as above, if he still in the hospital the beginning of next week we will check with general surgery about possibly debriding the wound that 5. Word finding difficulty. waxes and wanes. MRI Brain in March 2021 noted moderate atrophy and small vessel disease; again demonstrated on CT Head in Nov 2021. Also noted history of TIA. Increased atorvastatin to 40mg. B12 okay at 671 6. Anemia. Hx of iron deficiency anemia. Did have iron infusions in the past. Iron levels mostly consistent with chronic disease picture. Continue daily PO iron supplement. Dispo: Continue antibioticsanticipate goal of transfer to SNF. 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 He was admitted for management of UTI with antibiotics and AMS. Patient's Camp was changed in the ER. 01/12: Patient feels great today, continues to deny any sx of COVID (no dyspnea, congestion, sore throat, or rhinorrhea). Patient denies fevers or chills. No abdominal discomfort. He endorsees a good appetite. Denies chest pain. 01/11: Patient continues to feel well and is in good spirits. He continues to experience his chronic back pain, but symptoms are much resolved with his home medications. He notes that his appetite has much increased since presentation and he has been eating well. He denies dyspnea, pleuritic pain, congestion, or rhinorrhea. He denies any chest pain or palpitations. He is not experiencing any fevers, chills, nausea or emesis. Review of Systems Review of Systems: As per HPI Physical Exam Physical Exam: Gen: NAD, alert, interactive, AO x4 HEENT: No rhinorrhea or nasal congestion Resp:Non-labored, no wheezing/rhonchi/rales, CTAB CV:RRR, normal S1/S2, no M/R/G Abd: Soft, non-distended, no TTP, normoactive bowels, no masses Extr: Paraplegia, atrophy of muscles of LLE bilaterally, dry-scaling skin present on bilateral feet, 2+ distal pulses w/o edema Skin: Sacral and gluteal ulcers present (unstaged) Results & Data Results & Data ([facility]) Vital Signs (Past 12 Hours) Vital Signs Temp Pulse Pulse Resp BP Pulse Ox Pulse Ox 01/12/22 04:00 36.4 C L 88 18 145/83 H 95 01/11/22 22:15 94 H 01/11/22 21:01 95 01/11/22 23:30 36.8 C 95 H 20 116/77 95 01/11/22 19:00 36.8 C 93 H 18 127/81 96 O2 Del Method O2 Del Method 01/12/22 04:00 Room Air 01/11/22 22:15 01/11/22 21:01 Room Air 01/11/22 23:30 Room Air 01/11/22 19:00 Room Air Resident Activity Tracking Resident Involvement: Resident Care Provided Care Provided: Adult Hospital Medicine (1) Iron deficiency anemia Iron deficiency anemia type: inadequate dietary iron intake Qualified Code(s): D50.8 - Other iron deficiency anemias (2) GERD (gastroesophageal reflux disease) Esophagitis presence: without esophagitis Qualified Code(s): K21.9 - Gastro- esophageal reflux disease without esophagitis
[2022-01-12 07:11] LABS: Basophils # (auto) 0.21 K/uL (0-0.2); Basophils % (auto) 1.4 %; Eosinophils # (auto) 0.53 K/uL (0-0.50); Eosinophils % (auto) 3.4 %; Hematocrit (blood only) 22.6 % (40.1-51.0); Hemoglobin 7.4 g/dl (14.0-18.0); Immature Granulocytes # (auto) 0.11 K/uL (0.00-0.02); Immature Granulocytes % (auto) 0.7 %; Lymphocytes # (auto) 2.76 K/uL (1.2-3.4); Lymphocytes % (auto) 17.8 %; Mean Corpuscular Hgb Conc 32.7 g/dL (32.0-36.0); Mean Corpuscular Volume 82.5 fL (80.0-100.0); Mean Platelet Volume 9.1 fL (9.4-12.4); Monocytes # (auto) 1.15 K/uL (0.24-0.82); Monocytes % (auto) 7.4 %; Neutrophils # (auto) 10.78 K/uL (1.4-6.5); Neutrophils % (auto) 69.3 %; Platelet Count 654 K/uL (130-400); RDW Coefficient of Variation 18.8 % (11.5-14.5); Red Blood Count 2.74 M/uL (4.63-6.08); White Blood Count 15.54 K/ul (4.8-10.8)
[2022-01-12 07:33] LABS: Poikilocytosis Present; Polychromasia 1+; Target Cells 1+
[2022-01-12 07:42] LABS: Albumin Globulin Ratio 0.5 (0.9-2); Albumin Level 2.1 gm/dl (3.4-5.0); BUN Creatinine Ratio 31.9 (10-20); Bilirubin,Total 0.2 mg/dl (0.2-1.0); Calcium 7.7 mg/dl (8.5-10.1); Creatinine Clr Calc Pharmacy 105.5 ml/min; Est GFR (African American) 119.6 ml/min; Est GFR (Non-African American) 103.2 ml/min; Globulin 4.3 gm/dl (2.5-4.0); Potassium 3.1 mmol/L (3.5-5.1); Total Protein 6.4 gm/dl (6.0-8.3)
[2022-01-12] MEDS: FLUoxetine HCL 20 MG CAP PO SCH (07:54)
[2022-01-12] MEDS: oxyCODONE/ACETAMINOPHEN 5mg/325mg TAB PO PRN ×3 (07:55→20:56)
[2022-01-12] MEDS: SENNA 8.6 MG TAB PO SCH ×2 (07:56→21:00)
[2022-01-12] MEDS: PANTOprazole 40 MG TAB PO SCH ×2 (07:56→20:58)
[2022-01-12] MEDS: ASCORBIC ACID 500 MG TAB PO SCH ×2 (07:56→20:58)
[2022-01-12] MEDS: MULTIVITAMIN TAB PO SCH (07:57)
[2022-01-12] MEDS: ATORVASTATIN 40 MG TAB PO SCH (07:57)
[2022-01-12] MEDS: LINACLOTIDE 145 MCG CAPSULE PO SCH (07:57)
[2022-01-12] MEDS: ASPIRIN 81 MG ECTAB PO SCH (07:57)
[2022-01-12] MEDS ORDERED: POTASSIUM CHLORIDE CRTAB 20 MEQ TABCR PO SCH (08:30)
[2022-01-12] MEDS: FERROUS SULFATE 325 MG TAB PO SCH (09:27)
[2022-01-12] MEDS ORDERED: POTASSIUM CHLORIDE CRTAB 20 MEQ TABCR PO STA (11:00)
--- NOTE | 2022-01-12 17:39 | Billing Data ---
Date of Service January 12, 2022 Coding Level of Care Code 64286 Subseq Hosp Care Lvl 3
[2022-01-12] MEDS: ENOXAPARIN INJ 40 MG/0.4 ML SYR SQ SCH (20:56)
[2022-01-12] MEDS: MELATONIN 3 MG TAB PO PRN (20:56)
[2022-01-13] MEDS: AMITRIPTYLINE HCL 50 MG TAB PO SCH ×2 (00:33→23:59)
[2022-01-13 05:01] LABS: Basophils # (auto) 0.18 K/uL (0-0.2); Basophils % (auto) 1.2 %; Eosinophils # (auto) 0.47 K/uL (0-0.50); Eosinophils % (auto) 3.1 %; Hematocrit (blood only) 21.4 % (40.1-51.0); Hemoglobin 7.1 g/dl (14.0-18.0); Immature Granulocytes # (auto) 0.08 K/uL (0.00-0.02); Immature Granulocytes % (auto) 0.5 %; Lymphocytes # (auto) 2.76 K/uL (1.2-3.4); Lymphocytes % (auto) 18.1 %; Mean Corpuscular Hemoglobin 26.9 pg (25.0-34.0); Mean Corpuscular Hgb Conc 33.2 g/dL (32.0-36.0); Mean Corpuscular Volume 81.1 fL (80.0-100.0); Mean Platelet Volume 8.8 fL (9.4-12.4); Monocytes # (auto) 0.99 K/uL (0.24-0.82); Monocytes % (auto) 6.5 %; Neutrophils # (auto) 10.79 K/uL (1.4-6.5); Neutrophils % (auto) 70.6 %; Platelet Count 629 K/uL (130-400); RDW Coefficient of Variation 19.5 % (11.5-14.5); RDW Standard Deviation 52.5 fL (36.4-46.3); Red Blood Count 2.64 M/uL (4.63-6.08); White Blood Count 15.27 K/ul (4.8-10.8)
[2022-01-13 05:22] LABS: Albumin Globulin Ratio 0.5 (0.9-2); Albumin Level 2.2 gm/dl (3.4-5.0); BUN Creatinine Ratio 35.1 (10-20); Bilirubin,Total 0.2 mg/dl (0.2-1.0); Calcium 7.8 mg/dl (8.5-10.1); Creatinine Clr Calc Pharmacy 98.3 ml/min; Est GFR (African American) 116.2 ml/min; Est GFR (Non-African American) 100.3 ml/min; Globulin 4.2 gm/dl (2.5-4.0); Potassium 3.7 mmol/L (3.5-5.1); Total Protein 6.4 gm/dl (6.0-8.3)
[2022-01-13 05:33] LABS: Echinocytes 1+; Ovalocytes 1+; Target Cells 1+
[2022-01-13] MEDS ORDERED: VANCOMYCIN LEVEL ONE (05:55)
--- NOTE | 2022-01-13 06:48 | Hospitalist Progress Note ---
Date of Service January 13, 2022 Assessment & Plan (1) UTI (urinary tract infection): (2) COVID-19: (3) Sacral wound: (4) Confusion: (5) S/P ureteral stent placement: (6) Constipation: (7) Depression: (8) Hypertension: (9) Hyperlipidemia: (10) Iron deficiency anemia: (11) GERD (gastroesophageal reflux disease): Plan Ulysses us a 61 year old male with history of T4 Paraplegia, recurrent UTI, HTN, HLD< GERD, MDD, bilateral hydronephrosis, and hepatic encephalopathy who pres ented to the ER for intermittent confusion, possible UTI, and sacral wounds. He was admitted for management of UTI with antibiotics and AMS. ED Course: Patient was given IV Vancomycin and IV Zosyn.A culture of his sacral wounds was obtained.He received IV saline, 1 L. Urinary Tract Infection - History: S/p placement of bilateral ureteral stents for hydronephrosis, chronic indwelling catheter use, incontinence of bowel and bladder, Hx of resistant urinary infections - Required admission d/t displacement of ureteral stents in November - Urinalysis: Evidence of UTI, triple phosphate + (Klebsiella vs Proteus?) - Blood Culture: Contaminant - Urine Culture: Pending, re-incubation - Mild leukocytosis- 15.27 --- Urology evaluated patient, recommending postponement of stent replacement until acute COVID-19 resolution (~ 2 wks) --- Completed 7 day course of Zosyn, Plan to continue IV vancomycin as IP and transition to oral upon discharge Iron Def Anemia - history of iron def anemia likely acnemia of chronic disease -Hbg= 7.1, no active bleeding, low iron stores, continue PO iron, received 1 dose Venofer Sacral Wounds - History: Patient has been developing sacral/gluteal pressure ulcers since his admission in November, - Re-position q2h - Tylenol and Tramadol ordered for pain PRN - Patient evaluated by wound care, unable to stage, wound cultures positive for MRSA --- Surgery team evaluated patient, recommending postponement of debridement unt il acute COVID-19 resolution --- Continue wound care --- Continue Vancomycin d/t MRSA + wound cultures, Day 8, likely continued until debridement Altered Mental Status - Hx: Prior hepatic encephalopathy (prior admission in November) - No acute change in mental status (per patient and ), slow decline appreciated over last year - AO x 4 - CT Head: No acute intracranial findings. No change in appearance of the brain. Partially opacified right mastoid air cells. - Ammonia level wnl --- Patient at baseline, AO x 4, occasional word finding difficulty --- history of TIA, increase atorvastatin to 40mg Incidental COVID-19 Infection - Sx Rhinorrhea, no chest pain or shortness of breath, vitals stable - CXR: Subtle right lower lung reticulonodular interstitial thickening, could reflect a mild infectious process or mild aspiration pneumonitis - Elevated pro-calcitonin - Incentive laquita, flutter, PRN albuterol, PRN O2 - 11/ ESR and CRP elevated - Isolation: Day 07/15 --- Patient asymptomatic, afebrile, lungs CTAB, oxygenating well on room air Chronic Constipation - History: Discharged from last admission on Linzess, Senna, and PRN Miralax/Colace, gave patient enema / - CTAP: Improvement of impaction from last admission w/o obstruction - Had a couple loose stools yesterday- will hold senna/Linzess this morning Chronic Conditions: * Depression - Continue fluoxetine * Hypertension - No home medication regimen, monitor inpatient * Hyperlipidemia - Chronic, chronic elevation of Alk Phos, increase Atorvastatin to 40 mg daily d/t hx of small vessel disease on MRI * Iron deficiency anemia - Continue Iron and Vit C * GERD (gastroesophageal reflux disease) - Continue Omeprazole Diet:Reg IVF: None DVT PPx: Lovenox/SCD Dispo: SNF following inpatient, outpatient stent exchange and ulcer debridement, pending placement Code Status: Full Admission and Anticipated Discharge Date Admission Date: January 05, 2022 Supervising Physician Co-Signing Physician Notes I personally examined the patient and verified all pleitez points of history and exam, discussed case, and agree with decision making with Dr Underwood Continues to feel well. Wonders why he had sort of a numb/"felt like I was holding onto a piece of paper" sensation both hands equally whenever he was first admittedgone now. Vitals noted, in general he is awake and alert pleasant no distress. HEENT normocephalic atraumatic mucous membranes moist. Breathing unlabored no accessory muscle use good effort. Skin shows no rashes no pallor or icterus. Negative Tinel's bilateral, good strength bilateral hands 1.Urinary tract infection due to indwelling Camp. Clinically appears to be improvingcontinue current antibiotics IV; anticipate discharge to SNF type level of careat that time can switch to p.o. antibiotics, continue IV until time of discharge. Given that his hospitalization may be prolonged while awaiting SNF, if he is still in the hospital at the beginning of next week, will discuss with urology about possibly doing the stent exchange that 2.Aspiration PNA on CXR. Right lower lobe opacity. 98% on room air no respiratory distressprobably treated with antibiotics for UTI and sacral wound 3.COVID positive. Does have some mild rhinorrhea but no cough or shortness of breath. 4.Sacral wound. Continue current antibioticswound nurse noted need for surgical consultfor debridement after he is further removed from his positive COVID test. Continue local wound care for now, and continue IV antibioticsagain much like UTIat discharge can switch to p.o. antibiotics but would remain on antibiotics probably until debridementmuch as above, if he still in the hospital the beginning of next week we will check with general surgery about possibly debriding the wound that, similarly to above with urology 5. Word finding difficulty. waxes and wanes. MRI Brain in March 2021 noted moderate atrophy and small vessel disease; again demonstrated on CT Head in Nov 2021. Also noted history of TIA. Increased atorvastatin to 40mg. B12 okay at 671 6. Anemia. Hx of iron deficiency anemia. Did have iron infusions in the past. Iron levels mostly consistent with chronic disease picture. Continue daily PO iron supplement. Give IV iron today 7. Hand paresthesiasgone now, given that was in the context of initially during admission, and given that it has totally gone since, suspect transient paresthesias likely related to hyperventilation when he was sicker Dispo: Continue antibioticsanticipate goal of transfer to SNF. 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 He was admitted for management of UTI with antibiotics and AMS. Was also found to have significant sacral ulcers and was COVID+. Pt states that he is feeling well today without any complainants. Denies chest pain, dyspnea. Is eating well. Nurse does state that he had a couple loose bowel movements last night, this morning. Denies blood in stool. Review of Systems Review of Systems: As per HPI Physical Exam Physical Exam: Constitutional: well-appearing, no acute distress HEENT: NCAT, no conjunctival injection CV: regular rhythm, no murmur appreciated, extremities well-perfused, no LE edema Resp: CTABL, no wheezes/rales/rhonchi appreciated, no increased work of breathing GI: soft, nondistended, nontender, BS normoactive MSK: no gross deformities appreciated, sacral and gluteal ulcerations Skin: warm, dry, no rash appreciated Neuro: alert, oriented Results & Data Results & Data ([place]) Vital Signs (Past 12 Hours) Vital Signs Temp Pulse Pulse Resp BP Pulse Ox Pulse Ox 01/12/22 22:18 92 H 01/13/22 03:09 36.6 C 89 16 144/82 H 96 01/12/22 21:00 98 01/12/22 23:26 36.8 C 94 H 18 115/71 94 01/12/22 19:22 36.7 C 96 H 18 119/80 97 O2 Del Method O2 Del Method O2 Flow Rate 01/12/22 22:18 01/13/22 03:09 Room Air 01/12/22 21:00 Room Air 0 01/12/22 23:26 Room Air 01/12/22 19:22 Room Air Resident Activity Tracking Resident Involvement: Resident Care Provided Care Provided: Adult Hospital Medicine (1) Iron deficiency anemia Iron deficiency anemia type: inadequate dietary iron intake Qualified Code(s): D50.8 - Other iron deficiency anemias (2) GERD (gastroesophageal reflux disease) Esophagitis presence: without esophagitis Qualified Code(s): K21.9 - Gastro- esophageal reflux disease without esophagitis
[2022-01-13] MEDS: oxyCODONE/ACETAMINOPHEN 5mg/325mg TAB PO PRN ×3 (08:29→22:25)
[2022-01-13] MEDS: FERROUS SULFATE 325 MG TAB PO SCH (08:29)
[2022-01-13] MEDS: FLUoxetine HCL 20 MG CAP PO SCH (08:29)
[2022-01-13] MEDS: MULTIVITAMIN TAB PO SCH (08:30)
[2022-01-13] MEDS: ATORVASTATIN 40 MG TAB PO SCH (08:30)
[2022-01-13] MEDS: ASCORBIC ACID 500 MG TAB PO SCH ×2 (08:30→21:04)
[2022-01-13] MEDS ORDERED: IRON SUCROSE 200 MG in 0.9 % SODIUM CHLORIDE 100 ML IV ONE (08:30)
[2022-01-13] MEDS: ASPIRIN 81 MG ECTAB PO SCH (08:30)
[2022-01-13] MEDS: PANTOprazole 40 MG TAB PO SCH ×2 (08:31→21:05)
[2022-01-13] MEDS: SENNA 8.6 MG TAB PO SCH ×2 (09:31→21:05)
[2022-01-13] MEDS: LINACLOTIDE 145 MCG CAPSULE PO SCH (09:31)
--- NOTE | 2022-01-13 09:42 | Pharmacy Report ---
Pharmacy PK ABX Note - Date of Service January 13, 2022 - Assessment and Plan Assessment 01/13: Random vanc level obtained this morning predicts supratherapeutic AUC/KONSTANTIN. Dose decreased. 01/11: Random vanc lavel obtained this morning predicts lower AUC/KONSTANTIN than desired. Dose increased. 01/09: Random level this morning predicts current regimen is therapeutic. Will continue current dosing. Monitor SCr, patient on zosyn + vanco. repeat urine also w/ 3+ bacteria. 01/07/22: Random level this morning predicts current regimen to be slightly supratherapeutic. Will decrease dose slightly. Sacral wound growing staph species, initial urine cx recommended repeat, repeat urine cx currently reincubating. 01/06/22 61 year old M receiving vancomycin nd zosyn for treatment of UTI/sacral wound. WBC elevated but is trending down. Pertinent microbiologic data includes: blood culture growing gpc in 1/4 bottles thus far. Biofire positive for staph species only indicating likely contaminant. Will order a random level for tomorrow. Day # 2 of antimicrobial therapy. Plan Vancomycin * Loading dose: 1250 mg IV x 1 (already administered) * Decrease Maintenance dose to 750 mg IV every 12 hours * Regimen is predicted to achieve target AUC/KONSTANTIN of 400-600 mg/L.hr * No further levels have been ordered at this time. If patient remains on vancomycin therapy, will re-consider the need for additional levels in 1-2 days. Pharmacy will continue to follow and will adjust dose/frequency as necessary. Thank you. Pharmacy has transitioned to AUC monitoring for vancomycin. AUC/KONSTANTIN is the preferred PK/PD target and is associated with decreased risk of nephrotoxicity compared to traditional trough targets.
[2022-01-13] MEDS: VANCOMYCIN HCL 750 MG in SODIUM CHLORIDE 0.9% 250 ML IV SCH ×2 (11:03→21:10)
--- NOTE | 2022-01-13 16:49 | Billing Data ---
Date of Service January 13, 2022 Coding Level of Care Code 91442 Subseq Hosp Care Lvl 2
[2022-01-13] MEDS: AMOXICILLIN/CLAVULANATE 875 MG TAB PO SCH ×2 (17:39→17:55)
[2022-01-13] MEDS: ENOXAPARIN INJ 40 MG/0.4 ML SYR SQ SCH (21:04)
[2022-01-14] MEDS: MELATONIN 3 MG TAB PO PRN (01:29)
[2022-01-14] MEDS: LIDOCAINE 5% OINT 30 GM TUBE EXT PRN (01:29)
[2022-01-14 06:11] LABS: Basophils # (auto) 0.23 K/uL (0-0.2); Eosinophils # (auto) 0.51 K/uL (0-0.50); Eosinophils % (auto) 4.5 %; Hematocrit (blood only) 21.8 % (40.1-51.0); Hemoglobin 7.1 g/dl (14.0-18.0); Immature Granulocytes # (auto) 0.06 K/uL (0.00-0.02); Immature Granulocytes % (auto) 0.5 %; Lymphocytes # (auto) 2.49 K/uL (1.2-3.4); Lymphocytes % (auto) 22.1 %; Mean Corpuscular Hemoglobin 27.1 pg (25.0-34.0); Mean Corpuscular Hgb Conc 32.6 g/dL (32.0-36.0); Mean Corpuscular Volume 83.2 fL (80.0-100.0); Mean Platelet Volume 8.9 fL (9.4-12.4); Monocytes # (auto) 0.97 K/uL (0.24-0.82); Monocytes % (auto) 8.6 %; Neutrophils % (auto) 62.3 %; Platelet Count 639 K/uL (130-400); RDW Coefficient of Variation 20.3 % (11.5-14.5); RDW Standard Deviation 55.6 fL (36.4-46.3); Red Blood Count 2.62 M/uL (4.63-6.08); White Blood Count 11.26 K/ul (4.8-10.8)
--- NOTE | 2022-01-14 06:40 | Hospitalist Progress Note ---
Date of Service January 14, 2022 Assessment & Plan (1) UTI (urinary tract infection): (2) COVID-19: (3) Sacral wound: (4) Confusion: (5) S/P ureteral stent placement: (6) Constipation: (7) Depression: (8) Hypertension: (9) Hyperlipidemia: (10) Iron deficiency anemia: (11) GERD (gastroesophageal reflux disease): Plan Ulysses us a 61 year old male with history of T4 Paraplegia, recurrent UTI, HTN, HLD< GERD, MDD, bilateral hydronephrosis, and hepatic encephalopathy who pres ented to the ER for intermittent confusion, possible UTI, and sacral wounds. He was admitted for management of UTI with antibiotics and AMS. Urinary Tract Infection - History: S/p placement of bilateral ureteral stents for hydronephrosis, chronic indwelling catheter use, incontinence of bowel and bladder, Hx of resistant urinary infections - Required admission d/t displacement of ureteral stents in November - Urinalysis: Evidence of UTI, triple phosphate + (Klebsiella vs Proteus?) - Blood Culture: Contaminant - Urine Culture: Pending, re-incubation - Mild leukocytosis- 15.27 --- Urology evaluated patient, recommending postponement of stent replacement until acute COVID-19 resolution; if he is still here tomorrow will plan to reach out to urology to see if stents could be replaced as an IP --- Completed 7 day course of Zosyn, Plan to continue IV vancomycin as IP and transition to oral upon discharge Iron Def Anemia - history of iron def anemia likely anemia of chronic disease -Hbg= 7.1, no active bleeding, low iron stores, continue PO iron, received 1 dose Venofer 01/13 Sacral Wounds - History: Patient has been developing sacral/gluteal pressure ulcers since his admission in November, - Re-position q2h - Tylenol and Tramadol ordered for pain PRN - Patient evaluated by wound care, unable to stage, wound cultures positive for MRSA --- Surgery team evaluated patient, recommending postponement of debridement until acute COVID-19 resolution. If he is still here tomorrow will reach to surgery to see if they would be willing to do debridement IP --- Continue wound care --- Continue Vancomycin d/t MRSA + wound cultures, Day 9, likely continued until debridement Altered Mental Status - Hx: Prior hepatic encephalopathy (prior admission in November) - No acute change in mental status (per patient and ), slow decline appreciated over last year - AO x 4 - CT Head: No acute intracranial findings. No change in appearance of the brain. Partially opacified right mastoid air cells. - Ammonia level wnl --- Patient at baseline, AO x 4, occasional word finding difficulty --- history of TIA, increase atorvastatin to 40mg Incidental COVID-19 Infection - Sx Rhinorrhea, no chest pain or shortness of breath, vitals stable - CXR: Subtle right lower lung reticulonodular interstitial thickening, could reflect a mild infectious process or mild aspiration pneumonitis - Elevated pro-calcitonin - Incentive laquita, flutter, PRN albuterol, PRN O2 - 01/05 ESR and CRP elevated - Isolation: Day 08/15 --- Patient asymptomatic, afebrile, lungs CTAB, oxygenating well on room air Chronic Constipation - History: Discharged from last admission on Linzess, Senna, and PRN Miralax/Colace, gave patient enema 01/05 - CTAP: Improvement of impaction from last admission w/o obstruction - Had a couple loose stools yesterday- will hold senna/Linzess this morning Chronic Conditions: * Depression - Continue fluoxetine * Hypertension - No home medication regimen, monitor inpatient * Hyperlipidemia - Chronic, chronic elevation of Alk Phos, increase Atorvastatin to 40 mg daily d/t hx of small vessel disease on MRI * Iron deficiency anemia - Continue Iron and Vit C * GERD (gastroesophageal reflux disease) - Continue Omeprazole Diet:Reg IVF: None DVT PPx: Lovenox/SCD Dispo: SNF following inpatient, outpatient stent exchange and ulcer debridement, pending placement Code Status: Full Admission and Anticipated Discharge Date Admission Date: January 05, 2022 Supervising Physician Co-Signing Physician Notes I personally examined the patient and verified all pleitez points of history and exam, discussed case, and agree with decision making with Dr Underwood feels good. no covid sx. hopes . Vitals noted, in general he is awake and alert pleasant no distress. HEENT normocephalic atraumatic mucous membranes moist. Breathing unlabored no accessory muscle use good effort. Skin shows no rashes no pallor or icterus. 1.Urinary tract infection due to indwelling Camp. Clinically appears to be improvingcontinue current antibiotics IV; anticipate discharge to [facility] type level of careat that time can switch to p.o. antibiotics, continue IV until time of discharge. Since hospitalization has been prolonged, and they plan to exchange stents next week as an outpatientwill ask urology to revisit about stent exchange this week 2.Aspiration PNA on CXR. Right lower lobe opacity. 98% on room air no respiratory distressprobably treated with antibiotics for UTI and sacral wound 3.COVID positive. Does have some mild rhinorrhea but no cough or shortness of breath. 4.Sacral wound. Continue current antibioticswound nurse noted need for surgical consultfor debridement after he is further removed from his positive COVID test. Continue local wound care for now, and continue IV antibioticsagain much like UTIat discharge can switch to p.o. antibiotics but would remain on antibiotics probably until debridementmuch as above, the original plan was to debride as an outpatient next week, but given that his hospitalization has been prolonged, we will ask surgery to revisit debridement 5. Word finding difficulty. waxes and wanes. MRI Brain in March 2021 noted moderate atrophy and small vessel disease; again demonstrated on CT Head in Nov 2021. Also noted history of TIA. Increased atorvastatin to 40mg. B12 okay at 671 6. Anemia. Hx of iron deficiency anemia. Did have iron infusions in the past. Iron levels mostly consistent with chronic disease picture. Continue daily PO iron supplement. Give IV iron today 7. Hand paresthesiasgone now, given that was in the context of initially during admission, and given that it has totally gone since, suspect transient paresthesias likely related to hyperventilation when he was sicker Dispo: Continue antibioticsanticipate goal of transfer to SNF. Cuong Arora is a 61 year old male with history of T4 Paraplegia, recurrent UTI, HTN, HLD, GERD, MDD, bilateral hydronephrosis, and hepatic encephalopathy who presen gwyn to the ER for intermittent confusion, possible UTI, and sacral wounds. He was admitted for management of UTI with antibiotics and AMS. Was also found to have significant sacral ulcers and was COVID+. Pt states that he is feeling well today without any complainants. Denies chest pain, dyspnea. Is eating well. Review of Systems Review of Systems: As per HPI Physical Exam Physical Exam: Constitutional: well-appearing, no acute distress HEENT: NCAT, no conjunctival injection CV: regular rhythm, no murmur appreciated, extremities well-perfused, no LE edema Resp: CTABL, no wheezes/rales/rhonchi appreciated, no increased work of breathing GI: soft, nondistended, nontender, BS normoactive MSK: no gross deformities appreciated, sacral and gluteal ulcerations Skin: warm, dry, no rash appreciated Neuro: alert, oriented Results & Data Results & Data ([facility]) Vital Signs (Past 12 Hours) Vital Signs Temp Pulse Pulse Resp BP Pulse Ox Pulse Ox 01/14/22 03:41 36.3 C L 83 18 116/74 94 01/13/22 23:00 94 H 01/13/22 22:00 36.8 C 91 H 18 124/68 94 01/13/22 20:45 36.5 C 68 18 124/75 96 01/13/22 21:00 96 O2 Del Method O2 Del Method 01/14/22 03:41 Room Air 01/13/22 23:00 01/13/22 22:00 Room Air 01/13/22 20:45 Room Air 01/13/22 21:00 Room Air Resident Activity Tracking Resident Involvement: Resident Care Provided Care Provided: Adult Hospital Medicine (1) Iron deficiency anemia Iron deficiency anemia type: inadequate dietary iron intake Qualified Code(s): D50.8 - Other iron deficiency anemias (2) GERD (gastroesophageal reflux disease) Esophagitis presence: without esophagitis Qualified Code(s): K21.9 - Gastro- esophageal reflux disease without esophagitis
[2022-01-14 06:45] LABS: Acanthocytes 1+; Anisocytosis Present; Polychromasia 1+; Target Cells 1+
[2022-01-14 06:52] LABS: Albumin Globulin Ratio 0.5 (0.9-2); Albumin Level 2.2 gm/dl (3.4-5.0); BUN Creatinine Ratio 49.1 (10-20); Bilirubin,Total 0.2 mg/dl (0.2-1.0); Calcium 7.9 mg/dl (8.5-10.1); Creatinine Clr Calc Pharmacy 135.6 ml/min; Est GFR (African American) 133.3 ml/min; Globulin 4.1 gm/dl (2.5-4.0); Potassium 3.9 mmol/L (3.5-5.1); Total Protein 6.3 gm/dl (6.0-8.3)
[2022-01-14] MEDS ORDERED: IRON SUCROSE 200 MG in 0.9 % SODIUM CHLORIDE 100 ML IV ONE (08:45)
[2022-01-14] MEDS: FERROUS SULFATE 325 MG TAB PO SCH (09:08)
[2022-01-14] MEDS: oxyCODONE/ACETAMINOPHEN 5mg/325mg TAB PO PRN ×3 (09:09→22:05)
[2022-01-14] MEDS: ATORVASTATIN 40 MG TAB PO SCH (09:10)
[2022-01-14] MEDS: MULTIVITAMIN TAB PO SCH (09:10)
[2022-01-14] MEDS: ASCORBIC ACID 500 MG TAB PO SCH ×2 (09:10→20:59)
[2022-01-14] MEDS: FLUoxetine HCL 20 MG CAP PO SCH (09:10)
[2022-01-14] MEDS: AMOXICILLIN/CLAVULANATE 875 MG TAB PO SCH ×2 (09:10→18:04)
[2022-01-14] MEDS: PANTOprazole 40 MG TAB PO SCH ×2 (09:10→20:59)
[2022-01-14] MEDS: ASPIRIN 81 MG ECTAB PO SCH (09:10)
[2022-01-14] MEDS: VANCOMYCIN HCL 750 MG in SODIUM CHLORIDE 0.9% 250 ML IV SCH ×2 (09:11→22:05)
[2022-01-14] MEDS: LINACLOTIDE 145 MCG CAPSULE PO SCH (09:11)
[2022-01-14] MEDS: SENNA 8.6 MG TAB PO SCH ×2 (09:11→20:59)
--- NOTE | 2022-01-14 15:16 | Billing Data ---
Date of Service January 14, 2022 Coding Level of Care Code 49485 Subseq Hosp Care Lvl 3
--- NOTE | 2022-01-14 15:17 | Billing Data ---
Date of Service January 14, 2022 Coding Level of Care Code 06547 Subseq Hosp Care Lvl 3
[2022-01-14] MEDS: ENOXAPARIN INJ 40 MG/0.4 ML SYR SQ SCH (20:59)
[2022-01-14] MEDS: AMITRIPTYLINE HCL 50 MG TAB PO SCH (23:38)
[2022-01-15] MEDS: MELATONIN 3 MG TAB PO PRN (01:10)
[2022-01-15] MEDS ORDERED: VANCOMYCIN LEVEL ONE (04:44)
--- NOTE | 2022-01-15 06:59 | Hospitalist Progress Note ---
Date of Service January 15, 2022 Assessment & Plan (1) UTI (urinary tract infection): Plan: Pt is a 61 yo male with PMH of T4 Paraplegia, recurrent UTI, HTN, HLD, GERD, MDD, bilateral hydronephrosis, and hepatic encephalopathy who presented to the ER for intermittent confusion, possible UTI, and sacral wounds. He was admitted for management of UTI with antibiotics and AMS. Urinary Tract Infection - s/p placement of bilateral ureteral stents for hydronephrosis, chronic indwelling catheter use, incontinence of bowel and bladder, hx of resistant urinary infections - Required admission d/t displacement of ureteral stents in November - Urinalysis: Evidence of UTI, triple phosphate + (Klebsiella vs Proteus?) - Blood Culture: Contaminant - Urine Culture: Pending, re-incubation - Mild leukocytosis- 15.27 --- Urology evaluated patient and able to replace ureteral stents on Wednesday 01/17 --- Completed 7 day course of Zosyn and transitioned to augmentin - day 2, Iron Deficiency Anemia - history of iron def anemia likely anemia of chronic disease - Hbg= 7.2, no active bleeding, low iron stores, continue PO iron - Received 1 dose Venofer 01/13 Sacral Wounds - Patient has been developing sacral/gluteal pressure ulcers since his admission in November - Re-position q2h - Tylenol and Tramadol ordered for pain PRN - Patient evaluated by wound care, unable to stage, wound cultures positive for MRSA --- Surgery will be able to debride wound this Saturday --- Continue wound care --- Continue Vancomycin d/t MRSA + wound cultures, Day 10, continue until debridement Altered Mental Status - Prior hepatic encephalopathy (prior admission in November) - No acute change in mental status (per patient and ), slow decline appreciated over last year - AO x 4 - CT Head: No acute intracranial findings. No change in appearance of the brain. Partially opacified right mastoid air cells. - Ammonia level wnl --- Patient at baseline, AO x 4, occasional word finding difficulty --- history of TIA, increased atorvastatin to 40mg Incidental COVID-19 Infection - Sx of rhinorrhea, no chest pain or shortness of breath, vitals stable - CXR: Subtle right lower lung reticulonodular interstitial thickening, could reflect a mild infectious process or mild aspiration pneumonitis - Elevated pro-calcitonin - Incentive laquita, flutter, PRN albuterol, PRN O2 - 01/05 ESR and CRP elevated - Isolation: Day 09/14 --- Patient asymptomatic, afebrile, lungs CTAB, oxygenating well on room air Chronic Constipation - History: Discharged from last admission on Linzess, Senna, and PRN Miralax/Colace, gave patient enema 01/05 - CTAP: Improvement of impaction from last admission w/o obstruction - Had a couple loose stools Saturday- Linzess/Senna held - resume linzess/senna today Depression - Continue fluoxetine Hypertension - No home medication regimen, monitor inpatient - stable Hyperlipidemia - chronic elevation of Alk Phos - increased Atorvastatin to 40 mg daily d/t hx of small vessel disease on MRI Iron deficiency anemia - Continue Iron and Vit C GERD (gastroesophageal reflux disease) - Continue Omeprazole (2) COVID-19: (3) Sacral wound: (4) Confusion: (5) S/P ureteral stent placement: (6) Constipation: (7) Depression: (8) Hypertension: (9) Hyperlipidemia: (10) Iron deficiency anemia: (11) GERD (gastroesophageal reflux disease): Plan Diet:Reg IVF: None DVT PPx: Lovenox/SCD Dispo: SNF following inpatient. CM awaiting return calls from [facility] Consults: surg for debridement, uro for stent replacement- planned for Wednesday 01/17 Code Status: Full Admission and Anticipated Discharge Date Admission Date: January 05, 2022 Supervising Physician Co-Signing Physician Notes Resident Physician Supervision Note: I independently interviewed and examined the patient and verified the pleitez history and physical, reviewed labs and image studies and agree with resident findings and care plan. Subjective Pt is a 61 yo male with PMH of T4 Paraplegia, recurrent UTI, HTN, HLD, GERD, MDD, bilateral hydronephrosis, and hepatic encephalopathy who presented to the ER for intermittent confusion, possible UTI, and sacral wounds. He was admitted for management of UTI with antibiotics and AMS. Today, pt is resting comfortably in bed. He denies any symptoms of coughing, SOB, chest pain, and abdominal pain. He enjoyed his breakfast and is eating well. He did note that he didn't have any BM yet this AM but he denies bloating or pain. Physical Exam Constitutional: NAD. Vitals WNL. Eyes: no conjunctival abnormality Respiratory: CTA bilaterally. No rhonchi, wheezing, or crackles. Non labored breathing. Cardiovascular: RRR. No murmur noted. No LL edema. Gastrointestinal (Abdomen): Nontender, +BS. No masses noted. Musculoskeletal: Muscle wasting of bilateral LE. Skin: Multiple ulcers bandaging throughout body including sacral, right ankle, and midback. Psychiatric: Alert. Mood and affect congruent. Results & Data Results & Data ([facility]) Vital Signs (Past 12 Hours) Vital Signs Temp Pulse Pulse Resp BP Pulse Ox O2 Del Method 01/15/22 04:08 36.7 C 82 20 112/74 97 Room Air 01/15/22 00:12 98 H 01/14/22 23:00 36.7 C 88 18 126/77 94 Room Air 01/14/22 20:12 36.8 C 86 18 116/76 95 Room Air Resident Activity Tracking Resident Involvement: Resident Care Provided Care Provided: Adult Hospital Medicine (1) Iron deficiency anemia Iron deficiency anemia type: inadequate dietary iron intake Qualified Code(s): D50.8 - Other iron deficiency anemias (2) GERD (gastroesophageal reflux disease) Esophagitis presence: without esophagitis Qualified Code(s): K21.9 - Gastro- esophageal reflux disease without esophagitis
[2022-01-15 08:02] LABS: Hemoglobin 7.2 g/dl (14.0-18.0); Mean Corpuscular Hemoglobin 27.2 pg (25.0-34.0); Mean Corpuscular Hgb Conc 32.7 g/dL (32.0-36.0); Mean Platelet Volume 8.9 fL (9.4-12.4); Nucleated RBC # (auto) 0.02 K/uL (0-0); Nucleated RBC % (auto) 0.2 %; Platelet Count 670 K/uL (130-400); RDW Coefficient of Variation 21.2 % (11.5-14.5); RDW Standard Deviation 56.5 fL (36.4-46.3); Red Blood Count 2.65 M/uL (4.63-6.08); White Blood Count 9.64 K/ul (4.8-10.8)
[2022-01-15 08:27] LABS: Albumin Globulin Ratio 0.5 (0.9-2); Albumin Level 2.4 gm/dl (3.4-5.0); BUN Creatinine Ratio 33.3 (10-20); Bilirubin,Total 0.2 mg/dl (0.2-1.0); Calcium 8.2 mg/dl (8.5-10.1); Creatinine Clr Calc Pharmacy 97.2 ml/min; Est GFR (African American) 117.5 ml/min; Est GFR (Non-African American) 101.4 ml/min; Globulin 4.4 gm/dl (2.5-4.0); Potassium 3.8 mmol/L (3.5-5.1); Total Protein 6.8 gm/dl (6.0-8.3)
[2022-01-15] MEDS: oxyCODONE/ACETAMINOPHEN 5mg/325mg TAB PO PRN ×3 (09:07→23:37)
[2022-01-15] MEDS: AMOXICILLIN/CLAVULANATE 875 MG TAB PO SCH ×2 (09:08→16:54)
[2022-01-15] MEDS: ASCORBIC ACID 500 MG TAB PO SCH ×2 (09:08→19:47)
[2022-01-15] MEDS: PANTOprazole 40 MG TAB PO SCH ×2 (09:08→19:47)
[2022-01-15] MEDS: SENNA 8.6 MG TAB PO SCH ×2 (09:08→19:38)
[2022-01-15] MEDS: FLUoxetine HCL 20 MG CAP PO SCH (09:08)
[2022-01-15] MEDS: MULTIVITAMIN TAB PO SCH (09:09)
[2022-01-15] MEDS: LINACLOTIDE 145 MCG CAPSULE PO SCH (09:09)
[2022-01-15] MEDS: FERROUS SULFATE 325 MG TAB PO SCH (09:09)
[2022-01-15] MEDS: ATORVASTATIN 40 MG TAB PO SCH (09:09)
[2022-01-15] MEDS: ASPIRIN 81 MG ECTAB PO SCH (09:09)
--- NOTE | 2022-01-15 09:09 | Pharmacy Report ---
Pharmacy PK ABX Note - Date of Service January 15, 2022 - Assessment and Plan Assessment 01/15: Random vanc level obtained this morning predicts therapeutic AUC/KONSTANTIN. 01/13: Random vanc level obtained this morning predicts supratherapeutic AUC/KONSTANTIN. Dose decreased. 01/11: Random vanc lavel obtained this morning predicts lower AUC/KONSTANTIN than desired. Dose increased. 01/09: Random level this morning predicts current regimen is therapeutic. Will continue current dosing. Monitor SCr, patient on zosyn + vanco. repeat urine also w/ 3+ bacteria. 01/07/22: Random level this morning predicts current regimen to be slightly supratherapeutic. Will decrease dose slightly. Sacral wound growing staph species, initial urine cx recommended repeat, repeat urine cx currently reincubating. 01/06/22 61 year old M receiving vancomycin nd zosyn for treatment of UTI/sacral wound. WBC elevated but is trending down. Pertinent microbiologic data includes: blood culture growing gpc in 1/4 bottles thus far. Biofire positive for staph species only indicating likely contaminant. Will order a random level for tomorrow. Day # 2 of antimicrobial therapy. Plan Vancomycin * Current regimen: 750 mg IV every 12 hours * Random level obtained 01/15/22 resulted as 17.2 mcg/mL. This is predicted to achieve target AUC/KONSTANTIN of 400-600 mg/L.hr * Predicted AUC at steady state: 509 mg/L.hr * Continue 750 mg IV every 12 hours * Repeat random level ordered for: 01/17/22 Pharmacy will continue to follow and will adjust dose/frequency as necessary. Thank you. Pharmacy has transitioned to AUC monitoring for vancomycin. AUC/KONSTANTIN is the preferred PK/PD target and is associated with decreased risk of nephrotoxicity compared to traditional trough targets.
--- NOTE | 2022-01-15 10:09 | Urology Progress Note ---
Date of Service January 15, 2022 Assessment & Plan (1) Acute UTI: (2) S/P ureteral stent placement: Plan - Urology reconsulted to revisit bilateral ureteral stent exchange. - Last bilateral ureteral stent exchange was 11/10/21. - Afebrile, hemodynamically stable, lab work reviewed - creatinine 0.72, WBC 9.64. - Urine culture 01/05 - three types of organisms, all high counts, repeat collection on 01/06 showed three types of organisms, all moderate counts. - Blood cultures 01/05 - Coag neg staph not lugdunensis. - Completed x 7 day course of Zosyn, continues on IV Vancomycin. - Maintain Camp catheter for max urine drainage. - He is due for cystoscopy, bilateral ureteral stent exchange and we will plan to proceed this Wednesday 01/[address] Verdin given there are no acute changes in patient's status. Pt agreeable. - Discussed with hospital team. - Continue supportive care and antibiotic therapy. - Urology will follow. Admission and Anticipated Discharge Date Admission Date: January 05, 2022 Subjective Patient examined at bedside this AM. Awake, resting in bed on arrival. No acute distress. Denies any pain or discomfort. Camp catheter intact, draining cloudy yellow urine with some sediment noted in tubing. No fevers or chills. No nausea or vomiting. On isolation for COVID. Review of Systems Constitutional: as per Subjective / HPI Gastrointestinal: as per Subjective / HPI Genitourinary: + as per Subjective / HPI Physical Exam Constitutional: no acute distress Respiratory: normal respiratory effort; no respiratory distress and no labored breathing Neurologic: awake Psychiatric: Orientation: alert and oriented x 3 Genitourinary: Camp catheter intact Results & Data ([facility]) Vital Signs (Past 12 Hours) Vital Signs Temp Pulse Pulse Resp BP Pulse Ox O2 Del Method 01/15/22 09:42 89 01/15/22 07:29 36.4 C L 85 18 137/82 96 Room Air 01/15/22 04:08 36.7 C 82 20 112/74 97 Room Air 01/15/22 00:12 98 H 01/14/22 23:00 36.7 C 88 18 126/77 94 Room Air PG Care Time/CCT Total # of Minutes Spent Total Time Spent with Patient: Total time spent is greater than 50% in coordination of care (as documented) at patient's floor/unit and/or counseling patient: Coding Level of Care Code 06211 Subseq Hosp Care Lvl 2 Diagnoses Acute UTI N39.0 S/P ureteral stent placement Z96.0
[2022-01-15] MEDS: VANCOMYCIN HCL 750 MG in SODIUM CHLORIDE 0.9% 250 ML IV SCH ×2 (10:34→22:50)
--- NOTE | 2022-01-15 12:17 | Communication Note ---
Date of Service: January 15, 2022 Patient not seen today Will discuss with wound care Tentatively plan for debridement on Weds during stent exchange
[2022-01-15] MEDS: ENOXAPARIN INJ 40 MG/0.4 ML SYR SQ SCH (22:50)
[2022-01-15] MEDS: AMITRIPTYLINE HCL 50 MG TAB PO SCH (23:37)
[2022-01-16] MEDS: MELATONIN 3 MG TAB PO PRN (02:37)
--- NOTE | 2022-01-16 06:59 | Hospitalist Progress Note ---
Date of Service January 16, 2022 Assessment & Plan (1) UTI (urinary tract infection): Plan: Pt is a 61 yo male with PMH of T4 Paraplegia, recurrent UTI, HTN, HLD, GERD, MDD, bilateral hydronephrosis, and hepatic encephalopathy who presented to the ER for intermittent confusion, possible UTI, and sacral wounds. He was admitted for management of UTI with antibiotics and AMS. Urinary Tract Infection with chronic garrison - s/p placement of bilateral ureteral stents for hydronephrosis, chronic indwelling catheter use, incontinence of bowel and bladder, hx of resistant urinary infections - Required admission d/t displacement of ureteral stents in November - Urinalysis: Evidence of UTI, triple phosphate + (Klebsiella vs Proteus?) - Blood Culture: Contaminant - Urine Culture: three types of organisms present, moderate levels - Mild leukocytosis- 15.27 which has since downtrended --- Urology evaluated patient and able to replace ureteral stents on Wednesday 01/17 --- Completed 7 day course of Zosyn and transitioned to augmentin - day 3 Obstructive Uropathy - s/p bilateral ureteral stents placement for hydronephrosis. To have stents replaced 01/17. Iron Deficiency Anemia - history of iron def anemia likely anemia of chronic disease - Hbg= 6.9 today, no active bleeding - continue PO iron - Received 1 dose Venofer 01/13 - transfuse 1 unit of pRBCs 01/16 - recheck CBC in AM Sacral Wounds - Patient has been developing sacral/gluteal pressure ulcers since his admission in November - Re-position q2h - Tylenol and Tramadol ordered for pain PRN - Patient evaluated by wound care, unable to stage, wound cultures positive for MRSA --- Surgery will be able to debride wound 01/17 --- Continue wound care --- Continue Vancomycin d/t MRSA + wound cultures, Day 11, continue until debridement Altered Mental Status - Prior hepatic encephalopathy (prior admission in November) - No acute change in mental status (per patient and ), slow decline appreciated over last year - AO x 4 - CT Head: No acute intracranial findings. No change in appearance of the brain. Partially opacified right mastoid air cells. - Ammonia level wnl --- Patient at baseline, AO x 4, occasional word finding difficulty --- history of TIA, increased atorvastatin to 40mg Incidental COVID-19 Infection - Resolved rhinorrhea, no chest pain or shortness of breath, vitals stable - CXR: Subtle right lower lung reticulonodular interstitial thickening, could reflect a mild infectious process or mild aspiration pneumonitis - Elevated pro-calcitonin - Incentive laquita, flutter, PRN albuterol, PRN O2 - 01/05 ESR and CRP elevated - per CDC guidelines, pt meets requirements to discontinue isolation --- Patient asymptomatic, afebrile, lungs CTAB, oxygenating well on room air Chronic Constipation - History: Discharged from last admission on Linzess, Senna, and PRN M iralax/Colace, gave patient enema 01/05 - CTAP: Improvement of impaction from last admission w/o obstruction - Had a couple loose stools Saturday 01/13- Linzess/Senna held 01/14 - resumed linzess/senna 01/15 Depression - Continue fluoxetine Hypertension - No home medication regimen, monitor inpatient - stable Hyperlipidemia - chronic elevation of Alk Phos - increased Atorvastatin to 40 mg daily d/t hx of small vessel disease on MRI Iron deficiency anemia - Continue Iron and Vit C GERD (gastroesophageal reflux disease) - Continue Omeprazole (2) COVID-19: (3) Sacral wound: (4) Confusion: (5) S/P ureteral stent placement: (6) Constipation: (7) Depression: (8) Hypertension: (9) Hyperlipidemia: (10) Iron deficiency anemia: (11) GERD (gastroesophageal reflux disease): Plan Diet:Reg IVF: None, 1 unit of pRBCs given 01/16 DVT PPx: Lovenox/SCD Dispo: SNF following inpatient. Bed at [place] for pending insurance auth Consults: surg for debridement, uro for stent replacement- planned for Wednesday 01/17 Code Status: Full Admission and Anticipated Discharge Date Admission Date: January 05, 2022 Supervising Physician Co-Signing Physician Notes Resident Physician Supervision Note: I independently interviewed and examined the patient and verified the pleitez history and physical, reviewed labs and image studies and agree with resident findings and care plan. Subjective Pt is a 61 yo male with PMH of T4 Paraplegia, recurrent UTI, HTN, HLD, GERD, MDD, bilateral hydronephrosis, and hepatic encephalopathy who presented to the ER for intermittent confusion, possible UTI, and sacral wounds. He was admitted for management of UTI with antibiotics and AMS. Today, pt is resting comfortably in bed. Pt feeling well overall. He denies any symptoms of coughing, SOB, chest pain, dizziness, lightheadedness, and abdominal pain. Pt understands the procedures he is to undergo tomorrow. Physical Exam Constitutional: NAD. Vitals WNL. Eyes: no conjunctival abnormality Respiratory: CTA bilaterally. No rhonchi, wheezing, or crackles. Non labored breathing. Cardiovascular: RRR. No murmur noted. No LL edema. Gastrointestinal (Abdomen): Nontender, +BS. No masses noted. Musculoskeletal: Muscle wasting of BL LE Skin: no rashes, warm and dry Psychiatric: Alert. Mood and affect congruent. Results & Data Results & Data ([facility]) Vital Signs (Past 12 Hours) Vital Signs Temp Pulse Pulse Resp BP Pulse Ox Pulse Ox 01/16/22 03:00 36.4 C L 78 20 144/86 H 94 01/15/22 21:00 97 01/15/22 22:13 89 01/15/22 22:57 36.9 C 89 18 129/85 96 01/15/22 19:37 36.8 C 88 18 115/71 95 O2 Del Method O2 Del Method 01/16/22 03:00 Room Air 01/15/22 21:00 Room Air 01/15/22 22:13 01/15/22 22:57 Room Air 01/15/22 19:37 Room Air Resident Activity Tracking Resident Involvement: Resident Care Provided Care Provided: Adult Hospital Medicine (1) Iron deficiency anemia Iron deficiency anemia type: inadequate dietary iron intake Qualified Code(s): D50.8 - Other iron deficiency anemias (2) GERD (gastroesophageal reflux disease) Esophagitis presence: without esophagitis Qualified Code(s): K21.9 - Gastro- esophageal reflux disease without esophagitis
[2022-01-16 08:40] LABS: Hematocrit (blood only) 21.4 % (40.1-51.0); Hemoglobin 6.9 g/dl (14.0-18.0); Mean Corpuscular Hemoglobin 27.6 pg (25.0-34.0); Mean Corpuscular Hgb Conc 32.2 g/dL (32.0-36.0); Mean Corpuscular Volume 85.6 fL (80.0-100.0); Mean Platelet Volume 8.8 fL (9.4-12.4); Nucleated RBC # (auto) 0.03 K/uL (0-0); Nucleated RBC % (auto) 0.2 %; Platelet Count 749 K/uL (130-400); RDW Coefficient of Variation 22.1 % (11.5-14.5); RDW Standard Deviation 61.5 fL (36.4-46.3); White Blood Count 12.93 K/ul (4.8-10.8)
[2022-01-16 08:54] LABS: BUN Creatinine Ratio 38.4 (10-20); Est GFR (African American) 116.9 ml/min; Est GFR (Non-African American) 100.8 ml/min; Potassium 3.8 mmol/L (3.5-5.1)
[2022-01-16] MEDS: AMOXICILLIN/CLAVULANATE 875 MG TAB PO SCH ×2 (09:08→16:55)
[2022-01-16] MEDS: SENNA 8.6 MG TAB PO SCH ×2 (09:09→20:13)
[2022-01-16] MEDS: ASCORBIC ACID 500 MG TAB PO SCH ×2 (09:09→20:11)
[2022-01-16] MEDS: LINACLOTIDE 145 MCG CAPSULE PO SCH (09:09)
[2022-01-16] MEDS: PANTOprazole 40 MG TAB PO SCH ×2 (09:10→20:12)
[2022-01-16] MEDS: FERROUS SULFATE 325 MG TAB PO SCH (09:10)
[2022-01-16] MEDS: MULTIVITAMIN TAB PO SCH (09:10)
[2022-01-16] MEDS: FLUoxetine HCL 20 MG CAP PO SCH (09:10)
[2022-01-16] MEDS: ASPIRIN 81 MG ECTAB PO SCH (09:10)
[2022-01-16] MEDS: ATORVASTATIN 40 MG TAB PO SCH (09:10)
[2022-01-16] MEDS: VANCOMYCIN HCL 750 MG in SODIUM CHLORIDE 0.9% 250 ML IV SCH ×2 (09:11→20:09)
--- NOTE | 2022-01-16 09:28 | Urology Progress Note ---
Date of Service January 16, 2022 Assessment & Plan (1) Acute UTI: (2) S/P ureteral stent placement: Plan - Last bilateral ureteral stent exchange was 11/10/21. - Afebrile, lab work reviewed - WBC 12.93, Creatinine 0.73. - Urine culture 01/05 - three types of organisms, all high counts, repeat collection on 01/06 showed three types of organisms, all moderate counts. - Blood cultures 01/05 - Coag neg staph not lugdunensis. - Completed x 7 day course of Zosyn, continues on IV Vancomycin. - Maintain Camp catheter. - He is due for cystoscopy, bilateral ureteral stent exchange and we will plan to proceed this Wednesday 01/[address] Verdin given there are no acute changes in patient's status. Pt agreeable. - Will make NPO at midnight for procedure 01/17. - Continue supportive care and antibiotic therapy. - Urology will follow. Admission and Anticipated Discharge Date Admission Date: January 05, 2022 Subjective Patient examined at bedside this AM. Awake, resting in bed on arrival. No acute distress. Denies any pain or discomfort. Camp catheter intact, draining cloudy yellow urine with some sediment noted in tubing. No fevers or chills. No nausea or vomiting. On isolation for COVID. Review of Systems Constitutional: as per Subjective / HPI Gastrointestinal: as per Subjective / HPI Genitourinary: + as per Subjective / HPI Physical Exam Constitutional: no acute distress Respiratory: normal respiratory effort; no respiratory distress and no labored breathing Neurologic: awake Psychiatric: Orientation: alert and oriented x 3 Genitourinary: Camp catheter intact Results & Data ([facility]) Vital Signs (Past 12 Hours) Vital Signs Temp Pulse Pulse Resp BP Pulse Ox O2 Del Method 01/16/22 09:02 36.9 C 88 16 112/70 98 Room Air 01/16/22 07:13 88 01/16/22 03:00 36.4 C L 78 20 144/86 H 94 Room Air 01/15/22 22:13 89 01/15/22 22:57 36.9 C 89 18 129/85 96 Room Air PG Care Time/CCT Total # of Minutes Spent Total Time Spent with Patient: Total time spent is greater than 50% in coordination of care (as documented) at patient's floor/unit and/or counseling patient: Coding Level of Care Code 44826 Subseq Hosp Care Lvl 2 Diagnoses Acute UTI N39.0 S/P ureteral stent placement Z96.0
[2022-01-16] MEDS ORDERED: SODIUM CHLORIDE 0.9% 250 ML IV PRN (09:34)
[2022-01-16] MEDS: oxyCODONE/ACETAMINOPHEN 5mg/325mg TAB PO PRN ×3 (10:18→23:07)
[2022-01-16] MEDS: ENOXAPARIN INJ 40 MG/0.4 ML SYR SQ SCH (20:08)
[2022-01-17] MEDS: AMITRIPTYLINE HCL 50 MG TAB PO SCH ×2 (00:46→22:35)
--- NOTE | 2022-01-17 07:05 | Hospitalist Progress Note ---
Date of Service January 17, 2022 Assessment & Plan (1) UTI (urinary tract infection): Plan: Pt is a 61 yo male with PMH of T4 Paraplegia, recurrent UTI, HTN, HLD, GERD, MDD, bilateral hydronephrosis, and hepatic encephalopathy who presented to the ER for intermittent confusion, possible UTI, and sacral wounds. He was admitted for management of UTI with antibiotics and AMS. Urinary Tract Infection with chronic garrison - s/p placement of bilateral ureteral stents for hydronephrosis, chronic indwelling catheter use, incontinence of bowel and bladder, hx of resistant urinary infections - Required admission d/t displacement of ureteral stents in November - Urinalysis: Evidence of UTI, triple phosphate + (Klebsiella vs Proteus?) - Blood Culture: Contaminant - Urine Culture: three types of organisms present, moderate levels - Mild leukocytosis- 15.27 which has since downtrended --- Urology evaluated patient and able to replace ureteral stents on Wednesday 01/17 --- Completed 7 day course of Zosyn and transitioned to augmentin - day 4 Obstructive Uropathy - s/p bilateral ureteral stents placement for hydronephrosis - Stents replaced 01/17 Iron Deficiency Anemia - history of iron def anemia likely anemia of chronic disease - continue PO iron - Received 1 dose Venofer 01/13 - Hbg= 6.9 on 01/16, no active bleeding- transfused 1 unit of pRBCs - Hgb today= 9.4 Sacral Wounds - Patient has been developing sacral/gluteal pressure ulcers since his admission in November - Re-position q2h - Tylenol and Tramadol ordered for pain PRN - Patient evaluated by wound care, unable to stage, wound cultures positive for MRSA --- Surgery debrided wound 01/17 --- Continue wound care --- Continue Vancomycin d/t MRSA + wound cultures, Day 12 Altered Mental Status - Prior hepatic encephalopathy (prior admission in November) - No acute change in mental status (per patient and ), slow decline apprec iated over last year - CT Head: No acute intracranial findings. No change in appearance of the brain. Partially opacified right mastoid air cells. - Ammonia level wnl --- Patient at baseline, AO x 4, occasional word finding difficulty --- history of TIA, increased atorvastatin to 40mg Incidental COVID-19 Infection - CXR: Subtle right lower lung reticulonodular interstitial thickening, could reflect a mild infectious process or mild aspiration pneumonitis - Incentive laquita, flutter, PRN albuterol, PRN O2 - per CDC guidelines, pt meets requirements to discontinue isolation --- Patient asymptomatic, afebrile, lungs CTAB, oxygenating well on room air Chronic Constipation - History: Discharged from last admission on Linzess, Senna, and PRN Miralax/Colace, gave patient enema 01/05 - CTAP: Improvement of impaction from last admission w/o obstruction - Had a couple loose stools Saturday 01/13- Linzess/Senna held 01/14 - resumed linzess and senna 01/15 - pt w/o BM for a few days- added miralax BID and dulcolax suppository, monitor for BM Depression - Continue fluoxetine Hypertension - No home medication regimen, monitor inpatient - stable Hyperlipidemia - chronic elevation of Alk Phos - increased Atorvastatin to 40 mg daily d/t hx of small vessel disease on MRI Iron deficiency anemia - Continue Iron and Vit C GERD (gastroesophageal reflux disease) - Continue Omeprazole (2) COVID-19: (3) Sacral wound: (4) Confusion: (5) S/P ureteral stent placement: (6) Constipation: (7) Depression: (8) Hypertension: (9) Hyperlipidemia: (10) Iron deficiency anemia: (11) GERD (gastroesophageal reflux disease): Plan Diet:Reg IVF: None DVT PPx: Lovenox/SCD Dispo: SNF following inpatient. Possible bed at [place] pending insurance auth Code Status: Full Admission and Anticipated Discharge Date Admission Date: January 05, 2022 Supervising Physician Co-Signing Physician Notes Resident Physician Supervision Note: I independently interviewed and examined the patient and verified the pleitez history and physical, reviewed labs and image studies and agree with resident findings and care plan. Subjective Pt is a 61 yo male with PMH of T4 Paraplegia, recurrent UTI, HTN, HLD, GERD, MDD, bilateral hydronephrosis, and hepatic encephalopathy who presented to the ER for intermittent confusion, possible UTI, and sacral wounds. He was admitted for management of UTI with antibiotics and AMS. Today, pt is to have his bilateral ureteral stents replaced and his sacral wounds debrided. Pt feeling well this morning. No chest pain, SOB, lightheadedness, or dizziness. Pt does say that he hasn't had a BM in a few days. He denies bloating or abdominal pain. Physical Exam Constitutional: NAD. Vitals WNL. Eyes: no conjunctival abnormality Respiratory: CTA bilaterally. No rhonchi, wheezing, or crackles. Non labored breathing. Cardiovascular: RRR. No murmur noted. No LL edema. Gastrointestinal (Abdomen): Nontender, +BS. No masses noted. Musculoskeletal: Bilateral muscle wasting in LE. Skin: no rashes, warm and dry Psychiatric: Alert. Mood and affect congruent. Results & Data Results & Data ([facility]) Vital Signs (Past 12 Hours) Vital Signs Temp Pulse Pulse Resp BP Pulse Ox O2 Del Method 01/17/22 05:01 89 01/17/22 03:44 36.7 C 77 18 138/77 93 Room Air 01/16/22 23:01 36.4 C L 78 18 144/86 H 94 Room Air 01/16/22 19:32 36.7 C 87 18 123/74 95 Room Air Resident Activity Tracking Resident Involvement: Resident Care Provided Care Provided: Adult Hospital Medicine (1) Iron deficiency anemia Iron deficiency anemia type: inadequate dietary iron intake Qualified Code(s): D50.8 - Other iron deficiency anemias (2) GERD (gastroesophageal reflux disease) Esophagitis presence: without esophagitis Qualified Code(s): K21.9 - Gastro-esophageal reflux disease without esophagitis
[2022-01-17 07:06] LABS: Hematocrit (blood only) 28.8 % (40.1-51.0); Hemoglobin 9.4 g/dl (14.0-18.0); Mean Corpuscular Hemoglobin 28.3 pg (25.0-34.0); Mean Corpuscular Hgb Conc 32.6 g/dL (32.0-36.0); Mean Corpuscular Volume 86.7 fL (80.0-100.0); Mean Platelet Volume 8.7 fL (9.4-12.4); Nucleated RBC # (auto) 0.02 K/uL (0-0); Nucleated RBC % (auto) 0.2 %; Platelet Count 702 K/uL (130-400); RDW Coefficient of Variation 21.5 % (11.5-14.5); RDW Standard Deviation 61.7 fL (36.4-46.3); Red Blood Count 3.32 M/uL (4.63-6.08); White Blood Count 9.46 K/ul (4.8-10.8)
[2022-01-17 07:33] LABS: BUN Creatinine Ratio 37.3 (10-20); Calcium 8.3 mg/dl (8.5-10.1); Creatinine Clr Calc Pharmacy 110.4 ml/min; Est GFR (Non-African American) 104.4 ml/min; Potassium 3.8 mmol/L (3.5-5.1)
--- NOTE | 2022-01-17 08:33 | Urology Progress Note ---
Date of Service January 17, 2022 Assessment & Plan (1) Acute UTI: (2) S/P ureteral stent placement: Plan 61yo male with b/l ureteral stents admitted with AMS, UTI, sacral wound. - Last bilateral ureteral stent exchange was 11/10/21. - Afebrile, hemodynamically stable. - Lab work reviewed - WBC 9.46, Creatinine 0.67, Hemoglobin 9.4 (received1 unit of pRBCs 01/16) - Urine culture 01/05 - three types of organisms, all high counts, repeat collection on 01/06 showed three types of organisms, all moderate counts. - Blood cultures 01/05 - Coag neg staph not lugdunensis. - Completed x 7 day course of Zosyn, continues on IV Vancomycin. - Maintain Camp catheter. - Will plan to proceed to OR today for cystoscopy, bilateral retrograde pyelogram, bilateral ureteral stent exchange with Dr. Verdin. - Risks and benefits to be reviewed with patient by Dr. Verdin. OR notified. Covered with scheduled IV vancomycin. - Keep NPO. - Continue supportive care and antibiotic therapy. - Urology will follow. Admission and Anticipated Discharge Date Admission Date: January 05, 2022 Supervising Physician Co-Signing Physician Notes Agree with note above. Plan to exchange bilateral ureteral stents today. Subjective Patient examined at bedside this AM. Awake, resting in bed on arrival. No acute distress. No fevers or chills. No nausea or vomiting. Camp catheter intact, draining cloudy yellow urine. Denies any pain or discomfort at present. Has been NPO. Review of Systems Constitutional: as per Subjective / HPI Gastrointestinal: as per Subjective / HPI Genitourinary: + as per Subjective / HPI Physical Exam Constitutional: no acute distress Respiratory: normal respiratory effort; no respiratory distress and no labored breathing Neurologic: awake Psychiatric: Orientation: alert and oriented x 3 Genitourinary: Camp catheter intact Results & Data ([facility]) Vital Signs (Past 12 Hours) Vital Signs Temp Pulse Pulse Resp BP BP Pulse Ox 01/17/22 07:53 89 01/17/22 07:49 36.7 C 83 19 143/84 H 96 01/17/22 05:01 89 01/17/22 03:44 36.7 C 77 18 138/77 93 01/16/22 23:01 36.4 C L 78 18 144/86 H 94 O2 Del Method 01/17/22 07:53 01/17/22 07:49 Room Air 01/17/22 05:01 01/17/22 03:44 Room Air 01/16/22 23:01 Room Air PG Care Time/CCT Total # of Minutes Spent Total Time Spent with Patient: Total time spent is greater than 50% in coordination of care (as documented) at patient's floor/unit and/or counseling patient: Coding Level of Care Code 79757 Subseq Hosp Care Lvl 2 Diagnoses Acute UTI N39.0 S/P ureteral stent placement Z96.0
--- NOTE | 2022-01-17 08:44 | Pharmacy Report ---
Pharmacy Vanc AUC Short Note - Date of Service January 17, 2022 - Assessment & Plan Assessment 61 year old M receiving VANCOMYCIN for treatment of SACRAL WOUNDS . Pertinent microbiologic data includes: WOUND culture growing MRSA KONSTANTIN 2. Day #13 of antimicrobial therapy. Plan Vancomycin * AUC/KONSTANTIN is the preferred PK/PD target for vancomycin * AUC guided dosing is effective and associated with decreased risk of nephrotoxicity compared to traditional trough targets * RANDOM level of 17 mcg/mL is predicted to achieve target AUC/KONSTANTIN of 400-600 mg/L.hr and may be associated with a 10 % risk of nephrotoxicity * Continue dose of 750 mg IV every 12 hours * Patient has stable renal function and levels Pharmacy will continue to monitor and will order labs to adjust dose/frequency as necessary. Thank you.
[2022-01-17] MEDS: VANCOMYCIN HCL 750 MG in SODIUM CHLORIDE 0.9% 250 ML IV SCH ×2 (08:53→22:36)
[2022-01-17] MEDS: SENNA 8.6 MG TAB PO SCH ×2 (08:58→22:35)
[2022-01-17] MEDS: LINACLOTIDE 145 MCG CAPSULE PO SCH (08:59)
[2022-01-17] MEDS: PANTOprazole 40 MG TAB PO SCH ×2 (08:59→22:34)
[2022-01-17] MEDS: FERROUS SULFATE 325 MG TAB PO SCH (08:59)
[2022-01-17] MEDS: ASPIRIN 81 MG ECTAB PO SCH (09:00)
[2022-01-17] MEDS: MULTIVITAMIN TAB PO SCH (09:00)
[2022-01-17] MEDS: FLUoxetine HCL 20 MG CAP PO SCH (09:00)
[2022-01-17] MEDS: AMOXICILLIN/CLAVULANATE 875 MG TAB PO SCH ×2 (09:00→17:29)
[2022-01-17] MEDS: ATORVASTATIN 40 MG TAB PO SCH (09:00)
[2022-01-17] MEDS: ASCORBIC ACID 500 MG TAB PO SCH ×2 (09:01→22:34)
[2022-01-17] MEDS ORDERED: bisacodyL 10 MG SUPP PR ONE (09:33)
[2022-01-17] MEDS ORDERED: ONDANSETRON INJ 2 MG/ML 2 ML VIAL IV PRN (10:30)
[2022-01-17] MEDS ORDERED: ePHEDrine sulfate 50 MG/ML AMP IV PRN (10:30)
[2022-01-17] MEDS ORDERED: ATROPINE SULFATE 0.1 MG/ML 10ML SYR IV PRN (10:30)
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
--- NOTE | 2022-01-17 10:49 | Surgery Progress Note ---
Date of Service January 17, 2022 Assessment & Plan (1) Sacral decubitus ulcer: Plan: 61-year-old male paraplegic with pressure wounds of his sacrum and ischial tuberosities. He is getting stent exchange today with urology, we will proceed with debridement of these wounds. Plan for debridement pressure ulcers Risks of the procedure were discussed to include but not limited to bleeding, infection, need for future more extensive surgery, demonstrating structures, prolonged wound healing, and risk of anesthesia Wound care will take over care of the wounds today or tomorrow Admission and Anticipated Discharge Date Admission Date: January 05, 2022 Subjective 61-year-old male with pressure ulcers of the sacrum and bilateral ischial tube rosities, unable to stage. He received blood transfusion yesterday. No changes. Physical Exam Constitutional: WD/WN, vitals as above Skin: no rashes, warm and dry + wound (Sacral ischial tuberosity pressure ulcer) Results & Data ([facility]) Vital Signs (Past 12 Hours) Vital Signs Temp Pulse Pulse Resp BP BP Pulse Ox 01/17/22 10:26 37.0 C 84 18 145/89 H 98 01/17/22 07:53 89 01/17/22 07:49 36.7 C 83 19 143/84 H 96 01/17/22 05:01 89 01/17/22 03:44 36.7 C 77 18 138/77 93 01/16/22 23:01 36.4 C L 78 18 144/86 H 94 O2 Del Method 01/17/22 10:26 Room Air 01/17/22 07:53 01/17/22 07:49 Room Air 01/17/22 05:01 01/17/22 03:44 Room Air 01/16/22 23:01 Room Air PG Care Time/CCT Total # of Minutes Spent Total Time Spent with Patient: Total time spent is greater than 50% in coordination of care (as documented) at patient's floor/unit and/or counseling patient: Coding Level of Care Code 76241 Inpt Consult Level 2 Diagnoses Sacral decubitus ulcer L89.159 Pressure injury stage: unspecified pressure injury stage (1) Sacral decubitus ulcer Pressure injury stage: unspecified pressure injury stage Qualified Code(s): L89.159 - Pressure ulcer of sacral region, unspecified stage
[2022-01-17] MEDS ORDERED: PROPOFOL IV EMULSION 10 MG/ML 20 ML VIAL IV ONE (11:12)
[2022-01-17] MEDS ORDERED: fentaNYL citrate 100 MCG/2 ML VIAL ONE (11:12)
[2022-01-17] MEDS ORDERED: ROCURONIUM BROMIDE 10 MG/ML 5 ML VIAL IV ONE (11:12)
[2022-01-17] MEDS ORDERED: LIDOCAINE 2% 20 MG/ML 5 ML SYR IV ONE (11:12)
[2022-01-17] MEDS ORDERED: MIDAZOLAM HCL 1 MG/ML 2ML VIAL ONE (11:12)
[2022-01-17] MEDS ORDERED: BUPIVACAINE 0.5 % 5 MG/1 ML MPF 30ML VIAL ONE (11:25)
[2022-01-17] MEDS ORDERED: EPINEPHrine INJ 1 MG/ML AMP ONE (11:25)
[2022-01-17] MEDS ORDERED: ePHEDrine sulfate 50 MG/ML SYR ONE (12:19)
[2022-01-17] MEDS ORDERED: PHENYLEPHRINE 100MCG/ML 5ML SYR ONE (12:19)
--- NOTE | 2022-01-17 12:24 | Operative Report ---
PG Post Operative Report Pre & Post Diagnosis Operation Date: 01/17/22 11:00 Pre-Op Diagnosis: Sacral decubitus ulcer, bilateral ischial tuberosity ulcers Postop diagnosis: Sacral decubitus ulcer, bilateral ischial tuberosity ulcers I identified the patient and participated in the time-out.: Yes Procedure Operation Date: 01/17/22 11:00 Actual Procedures Debridement sacral decubitus and bilateral ischial tuberosity pressure ulcers, sharp, greater than 50 cm (Not Applicable) - Leonid Gomez DO, FACS Surgeon Leonid Gomez DO, FACS Fence Repairman Bean Holguin Estimated Blood Loss 15 Findings Consistent with Post-Op Diagnosis Sacral decubitus ulcer debrided to 5 x 6 x 1 cm. Left ischial tuberosity pressure ulcer debrided to 6 x 4 x 2 cm Right ischial tuberosity pressure ulcer debrided to 3 x 5 x 0.5 cm, down to periosteum Hemostasis achieved. Specimens None Anesthesia Type General Complications none Disposition Accompanied Patient To Recovery: No Disposition: Recovery Room Indications 61-year-old paraplegic male with multiple pressure ulcers following hospitalization in November. These been worsening. He was seen by wound care and they were unable to stage and recommended surgical debridement. Initially he was positive for COVID but was asymptomatic, after coming off COVID precautions, plan for debridement of pressure ulcers. Urology was to perform stent exchange at the same time. The risks of the procedure were discussed, all questions were answered, and the patient agreed to proceed with surgery as planned. Description of Procedure The patient was properly identified, consented, and taken to the operating room where he was placed in the supine position. General endotracheal anesthesia was induced. SCDs and a safety belt were placed. The patient was rolled into the prone position. Preoperative antibiotics were administered. The patient's lower back, buttocks and thighs was prepped and draped in the standard sterile fashion. Surgical timeout was performed and all parties were in agreement that this was the correct patient and procedure to be performed and we continued as planned. We began by debriding the sacral pressure ulcer. This was debrided with sharp dissection down to healthy bleeding tissue. The wound measured 5 cm x 6 cm x 1 cm at the conclusion. We then addressed the left ischial tuberosity pressure ulcer. Necrotic and unhealthy tissue was debrided. Final wound size was 6 cm x 4 cm x 2 cm. We then addressed the right ischial tuberosity pressure ulcer. This was debrided to a size of 3 x 5 x 0.5 cm. This was debrided down to periosteum. Hemostasis was achieved within all the wounds. The wounds were packed with Kerlix, and sterile dressings were applied. The case was turned over to urology for cystoscopy and stent exchange. At the conclusion of my portion of the procedure all sponge, instrument and needle counts were correct at the conclusion of the procedure. The patient tolerated the procedure well. The physician's review assistant was present and scrubbed for the entire the case. He was critical positioning the patient, prepping and draping, retraction and exposure, debridement of the wounds, closure the incisions, placement of dressing. I attest to the content of the Intraoperative Record and any orders documented therein. Any exceptions are noted below.
--- NOTE | 2022-01-17 12:25 | Communication Note ---
Date of Service: January 17, 2022 Wounds debrided in the operating room today. Wound care nurse to take over dressing care. Surgery will follow peripherally.
[2022-01-17] MEDS ORDERED: DIATRIZOATE MEGLUMINE 30% 100ML VIAL INSTIL ONE (12:44)
--- NOTE | 2022-01-17 13:15 | Post Operative Brief Note ---
PG Immediate Post Op with CF Date of Surgery January 17, 2022 Pre & Post Diagnosis Operation Date: 01/17/22 11:00 Pre-Op Diagnosis: Sacral decubitus ulcer; Acute Urinary tract infection, status post ureteral stent placement Post-Op Diagnosis: Sacral decubitus ulcer; Acute Urinary tract infection, status post ureteral stent placement I identified the patient and participated in the time-out.: Yes Procedure Operation Date: 01/17/22 11:00 Actual Procedures p Cystoscopy, Bilateral Retrograde Pyelogram, Bilateral Stent Exchange(Bilateral) - Ottoniel Verdin MD s Incision and Drainage Sacral Ulcer(Not Applicable) - Leonid Gomez DO, FACS Surgeon Ottoniel Verdin MD International Editorial Producer Bean Holguin Estimated Blood Loss 15 ([address] Gomez) Findings See Below Bilateral retrograde showed moderate hydronephrosis. Stents in appropriate position. Specimens Specimen Description: No specimens per surgeons Drains Camp Catheter (Patient arrived to operating room with Camp in place ) and Other (Bilateral 6 Filipino by 28 cm ureteral stents) Anesthesia Type General Complications none
[2022-01-17] MEDS ORDERED: GLYCOPYRROLATE 0.2 MG/ML VIAL ONE (13:16)
[2022-01-17] MEDS ORDERED: NEOSTIGMINE METHYLSULFATE 1 MG/ML 10ML VIAL ONE (13:16)
--- NOTE | 2022-01-17 13:20 | Operative Report ---
PG Post Operative Report Pre & Post Diagnosis Operation Date: 01/17/22 11:00 Pre-Op Diagnosis: Sacral decubitus ulcer; Acute Urinary tract infection, status post ureteral stent placement Post-Op Diagnosis: Sacral decubitus ulcer; Acute Urinary tract infection, status post ureteral stent placement I identified the patient and participated in the time-out.: Yes Procedure Operation Date: 01/17/22 11:00 Actual Procedures p Cystoscopy, Bilateral Retrograde Pyelogram with radiographic interpretation, Bilateral Stent Exchange(Bilateral) - Ottoniel Verdin MD s Incision and Drainage Sacral Ulcer(Not Applicable) - Leonid Gomez DO, FACS Surgeon Ottoniel Verdin MD Global Marketing Coordinator Bean Holguin Estimated Blood Loss 15 ([address] Gomez) Findings See Below Specimens None Anesthesia Type General Complications none Disposition Accompanied Patient To Recovery: No Disposition: Recovery Room Indications 60-year-old male with paraplegia and resultant neurogenic bladder and bilateral hydronephrosis managed with chronic bilateral ureteral stents and chronic Camp catheter. He was admitted to 4 numerous issues and we opted to exchange his stents here as he typically does not follow-up for his appointments otherwise. Description of Procedure After informed consent was obtained, the patient was transported operative suite . General anesthesia was induced. The patient was placed in dorsolithotomy position prepped and draped in a sterile fashion. They received preoperative vancomycin for antibiotic prophylaxis. An appropriate surgical timeout was performed. A 22 Montenegrin rigid scope was inserted per urethra into the bladder. He has a very high bladder neck that makes entry difficult. I advanced a sensor wire madelyn ngside the left ureteral stent and confirmed this in the upper pole of the kidney fluoroscopically. Then using a grasper, I remove the stent. 5 Montenegrin open-ended catheter was advanced over the wire and the wire was removed. Left retrograde pyelogram was shot which showed moderate hydronephrosis. Wire was replaced and 5 Montenegrin open-ended catheter was removed. I then deployed a 6 Montenegrin by 28 cm left ureteral stent with a good proximal coil in the kidney and a good distal coil in the bladder. I advanced an angled tip sensor wire alongside the right ureteral stent and confirmed this in the upper pole of the kidney fluoroscopically. Then using a grasper, I remove the stent. 5 Montenegrin open-ended catheter was advanced over the wire and the wire was removed. Right retrograde pyelogram was shot which showed moderate hydronephrosis. Wire was replaced and 5 Montenegrin open-ended catheter was removed. I then deployed a 6 Montenegrin by 28 cm right ureteral stent with a good proximal coil in the kidney and a good distal coil in the bladder. Bladder was left full and the scope was removed. 16 Montenegrin Camp catheter was inserted with return of clear urine. Balloon was inflated with 10 cc of sterile water. All counts were correct at the end of the case. I was present, scrubbed, and actively participated for the entirety of the procedure. I attest to the content of the Intraoperative Record and any orders documented therein. Any exceptions are noted below.
--- NOTE | 2022-01-17 13:47 | Anesthesiology Progress Note ---
Date of Service January 17, 2022 Anesthesia Post Procedure Vital Signs Vital Signs: Temp Pulse Pulse Resp BP BP BP 01/17/22 10:26 37.0 C 84 18 145/89 H 01/17/22 07:53 89 01/17/22 07:49 36.7 C 83 19 143/84 H 01/17/22 05:01 89 01/17/22 03:44 36.7 C 77 18 138/77 01/16/22 23:01 36.4 C L 78 18 144/86 H 01/16/22 19:32 36.7 C 87 18 123/74 01/16/22 14:20 89 01/16/22 16:44 36.8 C 84 14 125/77 01/16/22 15:44 37.4 C 84 14 121/73 01/16/22 15:44 37.4 C 84 14 121/73 01/16/22 14:44 36.9 C 84 16 117/76 01/16/22 14:14 36.7 C 85 14 112/72 01/16/22 13:59 36.6 C 85 18 103/68 Pulse Ox O2 Del Method 01/17/22 10:26 98 Room Air 01/17/22 07:53 01/17/22 07:49 96 Room Air 01/17/22 05:01 01/17/22 03:44 93 Room Air 01/16/22 23:01 94 Room Air 01/16/22 19:32 95 Room Air 01/16/22 14:20 01/16/22 16:44 97 01/16/22 15:44 96 01/16/22 15:44 96 01/16/22 14:44 98 01/16/22 14:14 98 01/16/22 13:59 95 Pain Intensity Generalized: Pain Intensity: 7 Back: Pain Intensity: 7 Transfer of Care Handoff Completed per policy Notes Mental Status: alert / awake / arousable Nausea / Vomiting: adequately controlled Pain: adequately controlled Airway Patency, RR, SpO2: stable & adequate BP & HR: stable & adequate Hydration State: stable & adequate Anesthetic Complications: no major complications apparent and Pt Satisfied with anesthetic care
--- NOTE | 2022-01-17 14:16 | Anesthesiology Progress Note ---
Date of Service January 17, 2022 Anesthesia Post Procedure Vital Signs Vital Signs: Temp Pulse Pulse Pulse Resp BP BP 01/17/22 14:10 73 13 131/87 01/17/22 14:00 36.1 C L 75 14 129/87 01/17/22 13:50 72 15 139/91 01/17/22 13:40 78 19 119/92 01/17/22 13:30 36.3 C L 78 16 151/104 H 01/17/22 10:26 37.0 C 84 18 145/89 H 01/17/22 07:53 89 01/17/22 07:49 36.7 C 83 19 01/17/22 05:01 89 01/17/22 03:44 36.7 C 77 18 138/77 01/16/22 23:01 36.4 C L 78 18 144/86 H 01/16/22 19:32 36.7 C 87 18 123/74 01/16/22 14:20 89 01/16/22 16:44 36.8 C 84 14 125/77 01/16/22 15:44 37.4 C 84 14 121/73 01/16/22 15:44 37.4 C 84 14 121/73 01/16/22 14:44 36.9 C 84 16 117/76 BP Pulse Ox O2 Del Method O2 Flow Rate 01/17/22 14:10 99 Room Air 01/17/22 14:00 98 Room Air 01/17/22 13:50 100 Oxymask 3 01/17/22 13:40 100 Oxymask 6 01/17/22 13:30 100 Oxymask 6 01/17/22 10:26 98 Room Air 01/17/22 07:53 01/17/22 07:49 143/84 H 96 Room Air 01/17/22 05:01 01/17/22 03:44 93 Room Air 01/16/22 23:01 94 Room Air 01/16/22 19:32 95 Room Air 01/16/22 14:20 01/16/22 16:44 97 01/16/22 15:44 96 01/16/22 15:44 96 01/16/22 14:44 98 Pain Intensity Generalized: Pain Intensity: 7 Back: Pain Intensity: 7 Transfer of Care Handoff Completed per policy Notes Mental Status: alert / awake / arousable Patient Amnestic to Procedure: Yes Nausea / Vomiting: adequately controlled Pain: adequately controlled Airway Patency, RR, SpO2: stable & adequate BP & HR: stable & adequate Hydration State: stable & adequate Anesthetic Complications: no major complications apparent
--- NOTE | 2022-01-17 14:18 | Fluoroscopy Report ---
FL retrograde includes kub CLINICAL HISTORY: B/L COMPARISON STUDY: CT of the abdomen and pelvis January 05, 2022. FLUOROSCOPY TIME: 33 seconds. FLUOROSCOPIC IMAGES: 12. FINDINGS: Fluoroscopy was provided during bilateral retrograde exams with bilateral ureteral stent ex change. Stents are well-positioned. Mild bilateral hydronephrosis is again noted. IMPRESSION: Fluoroscopy provided during bilateral retrograde exams with bilateral ureteral stent exc hange. ACT 112: Negative or not required by law. Electronically signed by: Omar Fisher M.D. 01/17/2022 2:16 PM
[2022-01-17] MEDS: POLYETHYLENE (MIRALAX) 17 GM PACK PO SCH (17:29)
[2022-01-17] MEDS: ENOXAPARIN INJ 40 MG/0.4 ML SYR SQ SCH (22:33)
[2022-01-17] MEDS: oxyCODONE/ACETAMINOPHEN 5mg/325mg TAB PO PRN (23:00)
[2022-01-17] MEDS: MELATONIN 3 MG TAB PO PRN (23:00)
[2022-01-18 06:40] LABS: Hematocrit (blood only) 25.5 % (40.1-51.0); Hemoglobin 8.4 g/dl (14.0-18.0); Mean Corpuscular Hgb Conc 32.9 g/dL (32.0-36.0); Mean Corpuscular Volume 87.9 fL (80.0-100.0); Mean Platelet Volume 8.8 fL (9.4-12.4); Platelet Count 674 K/uL (130-400); RDW Coefficient of Variation 22.8 % (11.5-14.5); RDW Standard Deviation 69.6 fL (36.4-46.3); White Blood Count 12.43 K/ul (4.8-10.8)
[2022-01-18 07:09] LABS: BUN Creatinine Ratio 50.8 (10-20); Calcium 8.1 mg/dl (8.5-10.1); Creatinine Clr Calc Pharmacy 119.1 ml/min; Est GFR (African American) 125.8 ml/min; Est GFR (Non-African American) 108.5 ml/min; Potassium 3.9 mmol/L (3.5-5.1)
--- NOTE | 2022-01-18 08:24 | Urology Progress Note ---
Date of Service January 18, 2022 Assessment & Plan (1) Acute UTI: (2) S/P ureteral stent placement: Plan 61yo male with b/l ureteral stents admitted with AMS, UTI, sacral wound. - POD #1 s/p cystoscopy, bilateral ureteral stent exchange with Dr. Verdin. - Subjectively feeling well this morning. - Afebrile and hemodynamically stable. - Lab work reviewed - WBC 12.43, Creatinine 0.61, Hemoglobin 8.4. - Urine culture 01/05 - three types of organisms, all high counts, repeat colle ction on 01/06 showed three types of organisms, all moderate counts. - Blood cultures 01/05 - Coag neg staph not lugdunensis. - Completed x 7 day course of Zosyn, continues on IV Vancomycin. - Maintain Camp catheter. - Will arrange outpatient follow-up with our service for continued care and stent management. - Urology will sign-off. Please contact us any further questions, concerns, or changes in patient status. Admission and Anticipated Discharge Date Admission Date: January 05, 2022 Subjective Patient examined at bedside this AM. Awake, resting in bed on arrival. No acute distress. No fevers or chills. No nausea or vomiting. Denies any pain or discomfort at present. Camp catheter intact, draining pink-tinged urine. Review of Systems Constitutional: as per Subjective / HPI Gastrointestinal: as per Subjective / HPI Genitourinary: + as per Subjective / HPI Physical Exam Constitutional: no acute distress Respiratory: normal respiratory effort; no respiratory distress and no labored breathing Neurologic: awake Psychiatric: Orientation: alert and oriented x 3 Genitourinary: Camp catheter intact Results & Data ([facility]) Vital Signs (Past 12 Hours) Vital Signs Temp Pulse Pulse Resp BP BP Pulse Ox 01/18/22 07:54 36.5 C 77 19 129/74 97 01/18/22 07:21 85 01/18/22 04:00 36.8 C 76 18 104/63 96 01/17/22 22:15 88 01/17/22 23:05 37.2 C 87 18 111/69 95 O2 Del Method 01/18/22 07:54 Room Air 01/18/22 07:21 01/18/22 04:00 Room Air 01/17/22 22:15 01/17/22 23:05 Room Air PG Care Time/CCT Total # of Minutes Spent Total Time Spent with Patient: Total time spent is greater than 50% in coordination of care (as documented) at patient's floor/unit and/or counseling patient: Coding Level of Care Code 20136 Subseq Hosp Care Lvl 2 Diagnoses Acute UTI N39.0 S/P ureteral stent placement Z96.0
[2022-01-18] MEDS: PANTOprazole 40 MG TAB PO SCH ×2 (09:01→21:08)
[2022-01-18] MEDS: oxyCODONE/ACETAMINOPHEN 5mg/325mg TAB PO PRN ×2 (09:01→21:04)
[2022-01-18] MEDS: ASPIRIN 81 MG ECTAB PO SCH (09:02)
[2022-01-18] MEDS: LINACLOTIDE 145 MCG CAPSULE PO SCH (09:02)
[2022-01-18] MEDS: SENNA 8.6 MG TAB PO SCH ×2 (09:02→21:09)
[2022-01-18] MEDS: FERROUS SULFATE 325 MG TAB PO SCH (09:02)
[2022-01-18] MEDS: ASCORBIC ACID 500 MG TAB PO SCH ×2 (09:02→21:08)
[2022-01-18] MEDS: ATORVASTATIN 40 MG TAB PO SCH (09:03)
[2022-01-18] MEDS: MULTIVITAMIN TAB PO SCH (09:03)
[2022-01-18] MEDS: AMOXICILLIN/CLAVULANATE 875 MG TAB PO SCH ×2 (09:03→17:26)
[2022-01-18] MEDS: POLYETHYLENE (MIRALAX) 17 GM PACK PO SCH ×2 (09:03→21:10)
[2022-01-18] MEDS: FLUoxetine HCL 20 MG CAP PO SCH (09:03)
[2022-01-18] MEDS: VANCOMYCIN HCL 750 MG in SODIUM CHLORIDE 0.9% 250 ML IV SCH ×2 (09:04→21:10)
--- NOTE | 2022-01-18 13:25 | Hospitalist Progress Note ---
Date of Service January 18, 2022 Assessment & Plan (1) UTI (urinary tract infection): Plan: Pt is a 61 yo male with PMH of T4 Paraplegia, recurrent UTI, HTN, HLD, GERD, MDD, bilateral hydronephrosis, and hepatic encephalopathy who presented to the ER for intermittent confusion, possible UTI, and sacral wounds. He was admitted for management of UTI with antibiotics and AMS. Urinary Tract Infection with chronic garrison - s/p placement of bilateral ureteral stents for hydronephrosis, chronic indwelling catheter use, incontinence of bowel and bladder, hx of resistant urinary infections - Required admission d/t displacement of ureteral stents in November - Urinalysis: Evidence of UTI, triple phosphate + (Klebsiella vs Proteus?) - Blood Culture: Contaminant - Urine Culture: three types of organisms present, moderate levels - Mild leukocytosis- 15.27 which has since downtrended --- Urology evaluated patient and able to replace ureteral stents on Wednesday 01/17 --- Completed 7 day course of Zosyn and transitioned to augmentin - day 5 Obstructive Uropathy - s/p bilateral ureteral stents placement for hydronephrosis - Stents replaced 01/17 Iron Deficiency Anemia - history of iron def anemia likely anemia of chronic disease - continue PO iron - Received 1 dose Venofer 01/13 - Hbg= 6.9 on 01/16, no active bleeding- transfused 1 unit of pRBCs - Hgb today= 8.4 Sacral Wounds - Patient has been developing sacral/gluteal pressure ulcers since his admission in November - Re-position q2h - Tylenol and Tramadol ordered for pain PRN - Patient evaluated by wound care, unable to stage, wound cultures positive for MRSA --- Surgery debrided wound 01/17 --- Continue wound care --- Continue Vancomycin d/t MRSA + wound cultures, Day 13 Altered Mental Status - Prior hepatic encephalopathy (prior admission in November) - No acute change in mental status (per patient and ), slow decline apprec iated over last year - CT Head: No acute intracranial findings. No change in appearance of the brain. Partially opacified right mastoid air cells. - Ammonia level wnl --- Patient at baseline, AO x 4, occasional word finding difficulty --- history of TIA, increased atorvastatin to 40mg Incidental COVID-19 Infection - CXR: Subtle right lower lung reticulonodular interstitial thickening, could reflect a mild infectious process or mild aspiration pneumonitis - Incentive laquita, flutter, PRN albuterol, PRN O2 - per CDC guidelines, pt meets requirements to discontinue isolation --- Patient asymptomatic, afebrile, lungs CTAB, oxygenating well on room air Chronic Constipation - History: Discharged from last admission on Linzess, Senna, and PRN Miralax/Colace, gave patient enema 01/05 - CTAP: Improvement of impaction from last admission w/o obstruction - Had a couple loose stools Saturday 01/13- Linzess/Senna held 01/14 - resumed linzess and senna 01/15 - 01/17 pt w/o BM for a few days- added miralax BID and dulcolax suppository - last BM 01/17 around 2 PM- continue increased bowel regimen started yesterday Depression - Continue fluoxetine Hypertension - No home medication regimen, monitor inpatient - stable Hyperlipidemia - chronic elevation of Alk Phos - increased Atorvastatin to 40 mg daily d/t hx of small vessel disease on MRI Iron deficiency anemia - Continue Iron and Vit C GERD (gastroesophageal reflux disease) - Continue Omeprazole (2) COVID-19: (3) Sacral wound: (4) Confusion: (5) S/P ureteral stent placement: (6) Constipation: (7) Depression: (8) Hypertension: (9) Hyperlipidemia: (10) Iron deficiency anemia: (11) GERD (gastroesophageal reflux disease): Plan Diet:Reg IVF: None DVT PPx: Lovenox/SCD Dispo: Medically stable. SNF following inpatient. [place] requesting updated notes and insurance auth, hopeful for d/c tomorrow Code Status: Full Admission and Anticipated Discharge Date Admission Date: January 05, 2022 Supervising Physician Co-Signing Physician Notes Resident Physician Supervision Note: I independently interviewed and examined the patient and verified the pleitez history and physical, reviewed labs and image studies and agree with resident findings and care plan. Subjective Pt is a 61 yo male with PMH of T4 Paraplegia, recurrent UTI, HTN, HLD, GERD, MDD, bilateral hydronephrosis, and hepatic encephalopathy who presented to the ER for intermittent confusion, possible UTI, and sacral wounds. He was admitted for management of UTI with antibiotics and AMS. Pt feeling well this morning. He says his procedures went well yesterday. He does endorse that he has not had a BM yet; however, he is not feeling bloated or experiencing abdominal pain. Physical Exam Constitutional: NAD. Vitals WNL. Eyes: no conjunctival abnormality Respiratory: CTA bilaterally. No rhonchi, wheezing, or crackles. Non labored b reathing. Cardiovascular: RRR. No murmur noted. No LL edema. Gastrointestinal (Abdomen): Nontender, +BS. No masses noted. Musculoskeletal: Bilateral muscle wasting in lower extremities. Skin: no rashes, warm and dry Psychiatric: Alert. Mood and affect congruent. Results & Data Results & Data ([facility]) Vital Signs (Past 12 Hours) Vital Signs Temp Pulse Pulse Resp BP Pulse Ox O2 Del Method 01/18/22 11:30 36.5 C 89 19 108/70 95 Room Air 01/18/22 09:05 Room Air 01/18/22 07:54 36.5 C 77 19 129/74 97 Room Air 01/18/22 07:21 85 01/18/22 04:00 36.8 C 76 18 104/63 96 Room Air Resident Activity Tracking Resident Involvement: Resident Care Provided Care Provided: Adult Hospital Medicine (1) Iron deficiency anemia Iron deficiency anemia type: inadequate dietary iron intake Qualified Code(s): D50.8 - Other iron deficiency anemias (2) GERD (gastroesophageal reflux disease) Esophagitis presence: without esophagitis Qualified Code(s): K21.9 - Gastro- esophageal reflux disease without esophagitis
[2022-01-18] MEDS: MELATONIN 3 MG TAB PO PRN (21:05)
[2022-01-18] MEDS: ENOXAPARIN INJ 40 MG/0.4 ML SYR SQ SCH (21:10)
[2022-01-18] MEDS: AMITRIPTYLINE HCL 50 MG TAB PO SCH (21:12)
[2022-01-19 06:46] LABS: Hematocrit (blood only) 28.3 % (40.1-51.0); Hemoglobin 9.4 g/dl (14.0-18.0); Mean Corpuscular Hemoglobin 29.1 pg (25.0-34.0); Mean Corpuscular Hgb Conc 33.2 g/dL (32.0-36.0); Mean Corpuscular Volume 87.6 fL (80.0-100.0); Mean Platelet Volume 8.6 fL (9.4-12.4); Platelet Count 721 K/uL (130-400); RDW Standard Deviation 70.7 fL (36.4-46.3); Red Blood Count 3.23 M/uL (4.63-6.08); White Blood Count 14.27 K/ul (4.8-10.8)
[2022-01-19 07:06] LABS: BUN Creatinine Ratio 37.5 (10-20); Calcium 8.4 mg/dl (8.5-10.1); Creatinine Clr Calc Pharmacy 99.8 ml/min; Est GFR (African American) 117.5 ml/min; Est GFR (Non-African American) 101.4 ml/min; Potassium 4.4 mmol/L (3.5-5.1)
[2022-01-19] MEDS: FLUoxetine HCL 20 MG CAP PO SCH (08:01)
[2022-01-19] MEDS: ASPIRIN 81 MG ECTAB PO SCH (08:01)
[2022-01-19] MEDS: LINACLOTIDE 145 MCG CAPSULE PO SCH (08:01)
[2022-01-19] MEDS: ATORVASTATIN 40 MG TAB PO SCH (08:01)
[2022-01-19] MEDS: FERROUS SULFATE 325 MG TAB PO SCH (08:01)
[2022-01-19] MEDS: MULTIVITAMIN TAB PO SCH (08:01)
[2022-01-19] MEDS: AMOXICILLIN/CLAVULANATE 875 MG TAB PO SCH (08:01)
[2022-01-19] MEDS: SENNA 8.6 MG TAB PO SCH ×2 (08:02→20:09)
[2022-01-19] MEDS: ASCORBIC ACID 500 MG TAB PO SCH ×2 (08:03→20:07)
[2022-01-19] MEDS: POLYETHYLENE (MIRALAX) 17 GM PACK PO SCH ×5 (08:03→23:04)
[2022-01-19] MEDS: PANTOprazole 40 MG TAB PO SCH ×2 (08:03→20:08)
[2022-01-19] MEDS: VANCOMYCIN HCL 750 MG in SODIUM CHLORIDE 0.9% 250 ML IV SCH (08:17)
--- NOTE | 2022-01-19 10:00 | Hospitalist Progress Note ---
Date of Service January 19, 2022 Assessment & Plan (1) UTI (urinary tract infection): Plan: Pt is a 61 yo male with PMH of T4 Paraplegia, recurrent UTI, HTN, HLD, GERD, MDD, bilateral hydronephrosis, and hepatic encephalopathy who presented to the ER for intermittent confusion, possible UTI, and sacral wounds. He was admitted for management of UTI with antibiotics and AMS. Urinary Tract Infection with chronic garrison - s/p placement of bilateral ureteral stents for hydronephrosis, chronic indwelling catheter use, incontinence of bowel and bladder, hx of resistant urinary infections - Required admission d/t displacement of ureteral stents in November - Urinalysis: Evidence of UTI, triple phosphate + (Klebsiella vs Proteus?) - Blood Culture: Contaminant - Urine Culture: three types of organisms present, moderate levels - Mild leukocytosis- 15.27 which has since downtrended --- Urology evaluated patient and able to replace ureteral stents on Wednesday 01/17 --- Completed 7 day course of Zosyn and transitioned to augmentin for 6 days: 13 days total ABX Obstructive Uropathy - s/p bilateral ureteral stents placement for hydronephrosis - Stents replaced 01/17 Chronic Constipation - History: Discharged from last admission on Linzess, Senna, and PRN Miralax/Colace, gave patient enema 01/05 - CTAP: Improvement of impaction from last admission w/o obstruction - Had a couple loose stools Saturday 01/13- Linzess/Senna held 01/14 - resumed linzess and senna 01/15 - 01/17 pt w/o BM for a few days- added miralax BID and dulcolax suppository - last BM 01/17 around 2 PM- continue increased bowel regimen started yesterday - 01/19 still w/o BM, increased frequency of miralax to q4hr. Could consider enema Iron Deficiency Anemia - history of iron def anemia likely anemia of chronic disease - continue PO iron - Received 1 dose Venofer 01/13 - Hbg= 6.9 on 01/16, no active bleeding- transfused 1 unit of pRBCs - Hgb today= 9.4 Pressure ulcer of R ischium , stage III-IV, POA Pressure ulcer of sacrum, stage III-IV, POA - Patient has been developing sacral/gluteal pressure ulcers since his admission in November - Re-position q2h - Tylenol and Tramadol ordered for pain PRN - wound cultures positive for MRSA --- Surgery debrided wound 01/17 --- Continue wound care --- Completed 14 day course of vanco d/t MRSA pos cultures Altered Mental Status - Prior hepatic encephalopathy (prior admission in November) - No acute change in mental status (per patient and ), slow decline appreciated over last year - CT Head: No acute intracranial findings. No change in appearance of the brain. Partially opacified right mastoid air cells. - Ammonia level wnl --- Patient at baseline, AO x 4, occasional word finding difficulty --- history of TIA, increased atorvastatin to 40mg Incidental COVID-19 Infection - CXR: Subtle right lower lung reticulonodular interstitial thickening, could reflect a mild infectious process or mild aspiration pneumonitis - Incentive laquita, flutter, PRN albuterol, PRN O2 - per CDC guidelines, pt meets requirements to discontinue isolation --- Patient asymptomatic, afebrile, lungs CTAB, oxygenating well on room air Depression - Continue fluoxetine Hypertension - No home medication regimen, monitor inpatient - stable Hyperlipidemia - chronic elevation of Alk Phos - increased Atorvastatin to 40 mg daily d/t hx of small vessel disease on MRI Iron deficiency anemia - Continue Iron and Vit C GERD (gastroesophageal reflux disease) - Continue Omeprazole (2) COVID-19: (3) Sacral wound: (4) Confusion: (5) S/P ureteral stent placement: (6) Constipation: (7) Depression: (8) Hypertension: (9) Hyperlipidemia: (10) Iron deficiency anemia: (11) GERD (gastroesophageal reflux disease): Plan Diet:Reg IVF: None DVT PPx: Lovenox/SCD Dispo: Medically stable. SNF following inpatient. [place] no longer able to accept. Referrals placed to other facilities. Code Status: Full Admission and Anticipated Discharge Date Admission Date: January 05, 2022 Supervising Physician Co-Signing Physician Notes Resident Physician Supervision Note: I independently interviewed and examined the patient and verified the pleitez history and physical, reviewed labs and image studies and agree with resident findings and care plan. Subjective Pt is a 61 yo male with PMH of T4 Paraplegia, recurrent UTI, HTN, HLD, GERD, MDD, bilateral hydronephrosis, and hepatic encephalopathy who presented to the ER for intermittent confusion, possible UTI, and sacral wounds. He was admitted for management of UTI with antibiotics and AMS. Pt feeling well this morning. Still no BM since 01/17. Deferred enema yesterday d/t trying to keep his sacral wounds clean. No new symptoms of SOB or chest pain. Physical Exam Constitutional: NAD. Vitals WNL. Eyes: no conjunctival abnormality Respiratory: CTA bilaterally. No rhonchi, wheezing, or crackles. Non labored breathing. Cardiovascular: RRR. No murmur noted. 1+ pitting edema in bilateral feet. Gastrointestinal (Abdomen): Nontender, +BS. No masses noted. Distended, most likely from stool burden. Skin: no rashes, warm and dry Psychiatric: Alert. Mood and affect congruent. Results & Data Results & Data ([facility]) Vital Signs (Past 12 Hours) Vital Signs Temp Pulse Pulse Resp BP BP Pulse Ox 01/19/22 08:11 37.3 C 92 H 18 138/76 96 01/19/22 07:26 89 01/19/22 04:14 36.8 C 85 18 127/86 95 01/18/22 23:25 37.1 C 80 18 109/70 96 O2 Del Method 01/19/22 08:11 Room Air 01/19/22 07:26 01/19/22 04:14 Room Air 01/18/22 23:25 Room Air Resident Activity Tracking Resident Involvement: Resident Care Provided Care Provided: Adult Hospital Medicine (1) Iron deficiency anemia Iron deficiency anemia type: inadequate dietary iron intake Qualified Code(s): D50.8 - Other iron deficiency anemias (2) GERD (gastroesophageal reflux disease) Esophagitis presence: without esophagitis Qualified Code(s): K21.9 - Gastro- esophageal reflux disease without esophagitis
[2022-01-19] MEDS: oxyCODONE/ACETAMINOPHEN 5mg/325mg TAB PO PRN ×2 (14:33→20:16)
[2022-01-19] MEDS: ENOXAPARIN INJ 40 MG/0.4 ML SYR SQ SCH (20:09)
[2022-01-19] MEDS: AMITRIPTYLINE HCL 50 MG TAB PO SCH (23:04)
[2022-01-20] MEDS: MELATONIN 3 MG TAB PO PRN ×2 (00:36→23:16)
[2022-01-20] MEDS: POLYETHYLENE (MIRALAX) 17 GM PACK PO SCH ×2 (03:08→18:29)
--- NOTE | 2022-01-20 07:24 | Hospitalist Progress Note ---
Date of Service January 20, 2022 Assessment & Plan (1) UTI (urinary tract infection): Plan: Pt is a 61 yo male with PMH of T4 Paraplegia, recurrent UTI, HTN, HLD, GERD, MDD, bilateral hydronephrosis, and hepatic encephalopathy who presented to the ER for intermittent confusion, possible UTI, and sacral wounds. He was admitted for management of UTI with antibiotics and AMS. Urinary Tract Infection with chronic garrison - s/p placement of bilateral ureteral stents for hydronephrosis, chronic indwelling catheter use, incontinence of bowel and bladder, hx of resistant urinary infections - Required admission d/t displacement of ureteral stents in November - Blood Culture: Contaminant - Urine Culture: three types of organisms present, moderate levels - Mild leukocytosis- 15.27 which has since downtrended --- Urology evaluated patient and able to replace ureteral stents on Wednesday 01/17 --- Completed 7 day course of Zosyn and transitioned to augmentin for 6 days: completed 13 days total ABX Obstructive Uropathy - s/p bilateral ureteral stents placement for hydronephrosis - Stents replaced 01/17 Chronic Constipation - History: Discharged from last admission on Linzess, Senna, and PRN Miralax/Colace, gave patient enema 01/05 - CTAP: Improvement of impaction from last admission w/o obstruction - Had a couple loose stools Saturday 01/13- Linzess/Senna held 01/14 - resumed linzess and senna 01/15 - 01/17 pt w/o BM for a few days- added miralax BID - 01/19 increased miralax to q4hr, resulting in copious loose BM - 01/20 decrease miralax frequency to BID, continue linzess and senna Iron Deficiency Anemia - history of iron def anemia likely anemia of chronic disease - continue PO iron - Received 1 dose Venofer 01/13 - Hbg= 6.9 on 01/16, no active bleeding- transfused 1 unit of pRBCs - Hgb today= 8.9 Pressure ulcer of R ischium , stage III-IV, POA Pressure ulcer of sacrum, stage III-IV, POA - Patient has been developing sacral/gluteal pressure ulcers since his admission in November - Re-position q2h - Tylenol and Tramadol ordered for pain PRN - wound cultures positive for MRSA --- Surgery debrided wound 01/17 --- Continue wound care --- Completed 14 day course of vanco d/t MRSA pos cultures --- f/u with surg or wound care after d/c Altered Mental Status - Prior hepatic encephalopathy (prior admission in November) - No acute change in mental status (per patient and ), slow decline appreciated over last year - CT Head: No acute intracranial findings. No change in appearance of the brain. Partially opacified right mastoid air cells. - Ammonia level wnl --- Patient at baseline, AO x 4, occasional word finding difficulty --- history of TIA, increased atorvastatin to 40mg Incidental COVID-19 Infection - CXR: Subtle right lower lung reticulonodular interstitial thickening, could reflect a mild infectious process or mild aspiration pneumonitis - Incentive laquita, flutter, PRN albuterol, PRN O2 - per CDC guidelines, pt meets requirements to discontinue isolation --- Patient asymptomatic, afebrile, lungs CTAB, oxygenating well on room air Depression - Continue fluoxetine Hypertension - No home medication regimen, monitor inpatient - stable Hyperlipidemia - chronic elevation of Alk Phos - increased Atorvastatin to 40 mg daily d/t hx of small vessel disease on MRI Iron deficiency anemia - Continue Iron and Vit C GERD (gastroesophageal reflux disease) - Continue Omeprazole (2) COVID-19: (3) Sacral wound: (4) Confusion: (5) S/P ureteral stent placement: (6) Constipation: (7) Depression: (8) Hypertension: (9) Hyperlipidemia: (10) Iron deficiency anemia: (11) GERD (gastroesophageal reflux disease): Plan Diet:Reg IVF: None DVT PPx: Lovenox/SCD Dispo: Medically stable. SNF following inpatient. [place] no longer able to accept. Referrals placed to other facilities. Code Status: Full Admission and Anticipated Discharge Date Admission Date: January 05, 2022 Supervising Physician Co-Signing Physician Notes Resident Physician Supervision Note: I independently interviewed and examined the patient and verified the pleitez history and physical, reviewed labs and image studies and agree with resident findings and care plan. Subjective Pt is a 61 yo male with PMH of T4 Paraplegia, recurrent UTI, HTN, HLD, GERD, MDD, bilateral hydronephrosis, and hepatic encephalopathy who presented to the ER for intermittent confusion, possible UTI, and sacral wounds. He was admitted for management of UTI with antibiotics and AMS. Pt feeling well this morning. Per pt, had copious loose BM yesterday. No new concerns of SOB or chest pain. Physical Exam Constitutional: NAD. Vitals WNL. Eyes: no conjunctival abnormality Respiratory: CTA bilaterally. No rhonchi, wheezing, or crackles. Non labored breathing. Cardiovascular: RRR. No murmur noted. No right LE edema. Left foot 1+ edema. Gastrointestinal (Abdomen): Slightly distended, improved from yesterday. Soft, Nontender, +BS. No masses noted. Skin: no rashes, warm and dry Psychiatric: Alert. Mood and affect congruent. Results & Data Results & Data ([facility]) Vital Signs (Past 12 Hours) Vital Signs Temp Pulse Pulse Resp BP BP Pulse Ox 01/20/22 04:00 36.5 C 84 20 134/83 95 01/19/22 23:46 36.8 C 86 20 111/77 96 01/19/22 22:20 79 01/19/22 19:30 36.9 C 90 20 117/76 97 O2 Del Method 01/20/22 04:00 Room Air 01/19/22 23:46 Room Air 01/19/22 22:20 01/19/22 19:30 Room Air Resident Activity Tracking Resident Involvement: Resident Care Provided Care Provided: Adult Hospital Medicine (1) Iron deficiency anemia Iron deficiency anemia type: inadequate dietary iron intake Qualified Code(s): D50.8 - Other iron deficiency anemias (2) GERD (gastroesophageal reflux disease) Esophagitis presence: without esophagitis Qualified Code(s): K21.9 - Gastro- esophageal reflux disease without esophagitis
[2022-01-20 07:47] LABS: Hematocrit (blood only) 27.6 % (40.1-51.0); Hemoglobin 8.9 g/dl (14.0-18.0); Mean Corpuscular Hemoglobin 28.6 pg (25.0-34.0); Mean Corpuscular Hgb Conc 32.2 g/dL (32.0-36.0); Mean Corpuscular Volume 88.7 fL (80.0-100.0); Mean Platelet Volume 8.6 fL (9.4-12.4); Platelet Count 685 K/uL (130-400); RDW Coefficient of Variation 22.4 % (11.5-14.5); RDW Standard Deviation 70.8 fL (36.4-46.3); Red Blood Count 3.11 M/uL (4.63-6.08); White Blood Count 12.83 K/ul (4.8-10.8)
[2022-01-20 08:11] LABS: BUN Creatinine Ratio 44.4 (10-20); Calcium 8.5 mg/dl (8.5-10.1); Est GFR (African American) 124.1 ml/min; Est GFR (Non-African American) 107.1 ml/min
[2022-01-20] MEDS ORDERED: POLYETHYLENE (MIRALAX) 17 GM PACK PO SCH (09:00)
[2022-01-20] MEDS: SENNA 8.6 MG TAB PO SCH ×2 (09:34→21:06)
[2022-01-20] MEDS: ASPIRIN 81 MG ECTAB PO SCH (09:35)
[2022-01-20] MEDS: ATORVASTATIN 40 MG TAB PO SCH (09:35)
[2022-01-20] MEDS: FERROUS SULFATE 325 MG TAB PO SCH (09:35)
[2022-01-20] MEDS: LINACLOTIDE 145 MCG CAPSULE PO SCH (09:35)
[2022-01-20] MEDS: MULTIVITAMIN TAB PO SCH (09:35)
[2022-01-20] MEDS: FLUoxetine HCL 20 MG CAP PO SCH (09:35)
[2022-01-20] MEDS: ASCORBIC ACID 500 MG TAB PO SCH ×2 (09:36→21:05)
[2022-01-20] MEDS: PANTOprazole 40 MG TAB PO SCH ×2 (09:36→21:06)
[2022-01-20] MEDS: oxyCODONE/ACETAMINOPHEN 5mg/325mg TAB PO PRN ×3 (09:46→23:15)
[2022-01-20] MEDS: ENOXAPARIN INJ 40 MG/0.4 ML SYR SQ SCH (21:04)
[2022-01-20] MEDS: AMITRIPTYLINE HCL 50 MG TAB PO SCH (23:15)
[2022-01-21] MEDS: oxyCODONE/ACETAMINOPHEN 5mg/325mg TAB PO PRN ×2 (06:26→13:49)
--- NOTE | 2022-01-21 07:18 | Hospitalist Progress Note ---
Date of Service January 21, 2022 Assessment & Plan (1) UTI (urinary tract infection): Plan: Pt is a 61 yo male with PMH of T4 Paraplegia, recurrent UTI, HTN, HLD, GERD, MDD, bilateral hydronephrosis, and hepatic encephalopathy who presented to the ER for intermittent confusion, possible UTI, and sacral wounds. He was admitted for management of UTI with antibiotics and AMS. Urinary Tract Infection with chronic garrison - s/p placement of bilateral ureteral stents for hydronephrosis, chronic indwelling catheter use, incontinence of bowel and bladder, hx of resistant urinary infections - Required admission d/t displacement of ureteral stents in November - Blood Culture: Contaminant - Urine Culture: three types of organisms present, moderate levels - Mild leukocytosis- 15.27 which has since downtrended --- Urology evaluated patient and able to replace ureteral stents on Wednesday 01/17 --- Completed 7 day course of Zosyn and transitioned to augmentin for 6 days: completed 13 days total ABX Obstructive Uropathy - s/p bilateral ureteral stents placement for hydronephrosis - Stents replaced 01/17 Chronic Constipation - History: Discharged from last admission on Linzess, Senna, and PRN Miralax/Colace, gave patient enema 01/05 - CTAP: Improvement of impaction from last admission w/o obstruction - Had a couple loose stools Saturday 01/13- Linzess/Senna held 01/14 - resumed linzess and senna 01/15 - 01/17 pt w/o BM for a few days- added miralax BID - 01/19 increased miralax to q4hr, resulting in copious loose BM - 01/20 decrease miralax frequency to BID, continue linzess and senna - 01/21 decreased miralax to PRN Iron Deficiency Anemia - history of iron def anemia likely anemia of chronic disease - continue PO iron - Received 1 dose Venofer 01/13 - Hbg= 6.9 on 01/16, no active bleeding- transfused 1 unit of pRBCs - Hgb today= 8.8 Pressure ulcer of R ischium , stage III-IV, POA Pressure ulcer of sacrum, stage III-IV, POA - Patient has been developing sacral/gluteal pressure ulcers since his admission in November - Re-position q2h - Tylenol and Tramadol ordered for pain PRN - wound cultures positive for MRSA --- Surgery debrided wound 01/17 --- Continue wound care --- Completed 14 day course of vanco d/t MRSA pos cultures --- f/u with surg or wound care after d/c Thrombocytosis - platelet count 600-700k - likely from chronic infection. follow. Altered Mental Status - Prior hepatic encephalopathy (prior admission in November) - No acute change in mental status (per patient and ), slow decline appreciated over last year - CT Head: No acute intracranial findings. No change in appearance of the brain. Partially opacified right mastoid air cells. - Ammonia level wnl --- Patient at baseline, AO x 4, occasional word finding difficulty --- history of TIA, increased atorvastatin to 40mg Incidental COVID-19 Infection - CXR: Subtle right lower lung reticulonodular interstitial thickening, could reflect a mild infectious process or mild aspiration pneumonitis - Incentive laquita, flutter, PRN albuterol, PRN O2 - per CDC guidelines, pt meets requirements to discontinue isolation --- Patient asymptomatic, afebrile, lungs CTAB, oxygenating well on room air Depression - Continue fluoxetine Hypertension - No home medication regimen, monitor inpatient - stable Hyperlipidemia - chronic elevation of Alk Phos - increased Atorvastatin to 40 mg daily d/t hx of small vessel disease on MRI Iron deficiency anemia - Continue Iron and Vit C GERD (gastroesophageal reflux disease) - Continue Omeprazole (2) COVID-19: (3) Sacral wound: (4) Confusion: (5) S/P ureteral stent placement: (6) Constipation: (7) Depression: (8) Hypertension: (9) Hyperlipidemia: (10) Iron deficiency anemia: (11) GERD (gastroesophageal reflux disease): Plan Diet:Reg IVF: None DVT PPx: Lovenox/SCD Dispo: Medically stable. SNF following inpatient. [place] denial. Referrals placed to other facilities. Code Status: Full Admission and Anticipated Discharge Date Admission Date: January 05, 2022 Supervising Physician Co-Signing Physician Notes Resident Physician Supervision Note: I independently interviewed and examined the patient and verified the pleitez history and physical, reviewed labs and image studies and agree with resident findings and care plan. Subjective Pt is a 61 yo male with PMH of T4 Paraplegia, recurrent UTI, HTN, HLD, GERD, MDD, bilateral hydronephrosis, and hepatic encephalopathy who presented to the ER for intermittent confusion, possible UTI, and sacral wounds. He was admitted for management of UTI with antibiotics and AMS. I went to pt's room this AM but was asleep. Revisited him in the afternoon and pt w/o new complaints. Feeling well overall. Denies chest pain and SOB. He mentions that his said if rehab facilities will not accept him that maybe he could go home w/ home health services. Physical Exam 2 Constitutional: NAD. Vitals WNL. Eyes: no conjunctival abnormality Respiratory: CTA bilaterally. No rhonchi, wheezing, or crackles. Non labored breathing. Cardiovascular: RRR. No murmur noted. Right foot 1+ pitting edema, left foot w/o edema. Gastrointestinal (Abdomen): Nontender, +BS. No masses noted. Skin: no rashes, warm and dry Psychiatric: Alert. Mood and affect congruent. Results & Data Results & Data ([facility]) Vital Signs (Past 12 Hours) Vital Signs Temp Pulse Pulse Resp BP Pulse Ox O2 Del Method 01/21/22 04:19 36.4 C L 81 20 139/82 96 Room Air 01/20/22 23:53 36.8 C 85 20 109/70 93 Room Air 01/20/22 22:23 86 01/20/22 19:57 36.7 C 81 20 116/73 93 Room Air Resident Activity Tracking Resident Involvement: Resident Care Provided Care Provided: Adult Hospital Medicine (1) Iron deficiency anemia Iron deficiency anemia type: inadequate dietary iron intake Qualified Code(s): D50.8 - Other iron deficiency anemias (2) GERD (gastroesophageal reflux disease) Esophagitis presence: without esophagitis Qualified Code(s): K21.9 - Gastro- esophageal reflux disease without esophagitis
[2022-01-21 07:49] LABS: Hematocrit (blood only) 27.2 % (40.1-51.0); Hemoglobin 8.8 g/dl (14.0-18.0); Mean Corpuscular Hemoglobin 28.6 pg (25.0-34.0); Mean Corpuscular Hgb Conc 32.4 g/dL (32.0-36.0); Mean Corpuscular Volume 88.3 fL (80.0-100.0); Mean Platelet Volume 8.7 fL (9.4-12.4); Platelet Count 708 K/uL (130-400); RDW Coefficient of Variation 22.1 % (11.5-14.5); RDW Standard Deviation 70.1 fL (36.4-46.3); Red Blood Count 3.08 M/uL (4.63-6.08)
[2022-01-21 08:09] LABS: BUN Creatinine Ratio 60.4 (10-20); Calcium 8.5 mg/dl (8.5-10.1); Est GFR (African American) 138.8 ml/min; Est GFR (Non-African American) 119.8 ml/min; Potassium 3.9 mmol/L (3.5-5.1)
[2022-01-21] MEDS: SENNA 8.6 MG TAB PO SCH ×2 (09:19→20:06)
[2022-01-21] MEDS: ATORVASTATIN 40 MG TAB PO SCH (09:19)
[2022-01-21] MEDS: MULTIVITAMIN TAB PO SCH (09:19)
[2022-01-21] MEDS: FLUoxetine HCL 20 MG CAP PO SCH (09:20)
[2022-01-21] MEDS: FERROUS SULFATE 325 MG TAB PO SCH (09:20)
[2022-01-21] MEDS: PANTOprazole 40 MG TAB PO SCH ×2 (09:20→20:05)
[2022-01-21] MEDS: LINACLOTIDE 145 MCG CAPSULE PO SCH (09:20)
[2022-01-21] MEDS: ASPIRIN 81 MG ECTAB PO SCH (09:20)
[2022-01-21] MEDS: POLYETHYLENE (MIRALAX) 17 GM PACK PO SCH (09:21)
[2022-01-21] MEDS: ASCORBIC ACID 500 MG TAB PO SCH ×2 (09:21→20:04)
[2022-01-21] MEDS ORDERED: POLYETHYLENE (MIRALAX) 17 GM PACK PO PRN (10:18)
[2022-01-21] MEDS: ENOXAPARIN INJ 40 MG/0.4 ML SYR SQ SCH (20:07)
[2022-01-21] MEDS: traMADol HCL 50 MG TABLET PO PRN (22:27)
[2022-01-21] MEDS: AMITRIPTYLINE HCL 50 MG TAB PO SCH (23:10)
[2022-01-21] MEDS: MELATONIN 3 MG TAB PO PRN (23:57)
[2022-01-22] MEDS: traMADol HCL 50 MG TABLET PO PRN ×3 (06:24→22:33)
[2022-01-22 06:39] LABS: Hematocrit (blood only) 28.7 % (40.1-51.0); Hemoglobin 9.3 g/dl (14.0-18.0); Mean Corpuscular Hgb Conc 32.4 g/dL (32.0-36.0); Mean Corpuscular Volume 89.4 fL (80.0-100.0); Mean Platelet Volume 8.4 fL (9.4-12.4); Platelet Count 724 K/uL (130-400); RDW Coefficient of Variation 21.6 % (11.5-14.5); RDW Standard Deviation 69.5 fL (36.4-46.3); Red Blood Count 3.21 M/uL (4.63-6.08); White Blood Count 12.21 K/ul (4.8-10.8)
[2022-01-22 07:06] LABS: BUN Creatinine Ratio 41.7 (10-20); Calcium 8.6 mg/dl (8.5-10.1); Creatinine Clr Calc Pharmacy 100.5 ml/min; Est GFR (African American) 117.5 ml/min; Est GFR (Non-African American) 101.4 ml/min; Potassium 3.5 mmol/L (3.5-5.1)
[2022-01-22] MEDS: ASPIRIN 81 MG ECTAB PO SCH (08:21)
[2022-01-22] MEDS: ATORVASTATIN 40 MG TAB PO SCH (08:21)
[2022-01-22] MEDS: ASCORBIC ACID 500 MG TAB PO SCH ×2 (08:21→22:27)
[2022-01-22] MEDS: SENNA 8.6 MG TAB PO SCH ×2 (08:22→22:27)
[2022-01-22] MEDS: LINACLOTIDE 145 MCG CAPSULE PO SCH (08:22)
[2022-01-22] MEDS: MULTIVITAMIN TAB PO SCH (08:22)
[2022-01-22] MEDS: PANTOprazole 40 MG TAB PO SCH ×2 (08:22→22:27)
[2022-01-22] MEDS: FLUoxetine HCL 20 MG CAP PO SCH (08:22)
[2022-01-22] MEDS: FERROUS SULFATE 325 MG TAB PO SCH (08:22)
--- NOTE | 2022-01-22 13:39 | Hospitalist Progress Note ---
Date of Service January 22, 2022 Assessment & Plan (1) UTI (urinary tract infection): Plan: Pt is a 61 yo male with PMH of T4 Paraplegia, recurrent UTI, HTN, HLD, GERD, MDD, bilateral hydronephrosis, and hepatic encephalopathy who presented to the ER for intermittent confusion, possible UTI, and sacral wounds. He was admitted for management of UTI with antibiotics and AMS. Urinary Tract Infection with chronic garrison - s/p placement of bilateral ureteral stents for hydronephrosis, chronic indwelling catheter use, incontinence of bowel and bladder, hx of resistant urinary infections - Required admission d/t displacement of ureteral stents in November - Blood Culture: Contaminant - Urine Culture: three types of organisms present, moderate levels - Mild leukocytosis- 15.27 which has since downtrended --- Urology evaluated patient and able to replace ureteral stents on Wednesday 01/17 --- Completed 7 day course of Zosyn and transitioned to augmentin for 6 days: completed 13 days total ABX Obstructive Uropathy - s/p bilateral ureteral stents placement for hydronephrosis - Stents replaced 01/17 Chronic Constipation - History: Discharged from last admission on Linzess, Senna, and PRN Miralax/Colace, gave patient enema 01/05 - CTAP: Improvement of impaction from last admission w/o obstruction - Had a couple loose stools Saturday 01/13- Linzess/Senna held 01/14 - resumed linzess and senna 01/15 - 01/17 pt w/o BM for a few days- added miralax BID - 01/19 increased miralax to q4hr, resulting in copious loose BM - 01/20 decrease miralax frequency to BID, continue linzess and senna - 01/21 decreased miralax to PRN Iron Deficiency Anemia - history of iron def anemia likely anemia of chronic disease - continue PO iron - Received 1 dose Venofer 01/13 - Hbg= 6.9 on 01/16, no active bleeding- transfused 1 unit of pRBCs - Hgb today= 9.3 Pressure ulcer of R ischium , stage III-IV, POA Pressure ulcer of sacrum, stage III-IV, POA - Patient has been developing sacral/gluteal pressure ulcers since his admission in November - Re-position q2h - Tylenol and Tramadol ordered for pain PRN - wound cultures positive for MRSA --- Surgery debrided wound 01/17 --- Continue wound care --- Completed 14 day course of vanco d/t MRSA pos cultures --- f/u with surg or wound care after d/c Chronic thrombocytosis - platelet count 600-700k - likely from chronic infection Altered Mental Status - Prior hepatic encephalopathy (prior admission in November) - No acute change in mental status (per patient and ), slow decline appreciated over last year - CT Head: No acute intracranial findings. No change in appearance of the brain. Partially opacified right mastoid air cells. - Ammonia level wnl --- Patient at baseline, AO x 4, occasional word finding difficulty --- history of TIA, increased atorvastatin to 40mg Incidental COVID-19 Infection - CXR: Subtle right lower lung reticulonodular interstitial thickening, could reflect a mild infectious process or mild aspiration pneumonitis - Incentive laquita, flutter, PRN albuterol, PRN O2 - per CDC guidelines, pt meets requirements to discontinue isolation --- Patient asymptomatic, afebrile, lungs CTAB, oxygenating well on room air Depression - Continue fluoxetine Hypertension - No home medication regimen, monitor inpatient - stable Hyperlipidemia - chronic elevation of Alk Phos - increased Atorvastatin to 40 mg daily d/t hx of small vessel disease on MRI Iron deficiency anemia - Continue Iron and Vit C GERD (gastroesophageal reflux disease) - Continue Omeprazole (2) COVID-19: (3) Sacral wound: (4) Confusion: (5) S/P ureteral stent placement: (6) Constipation: (7) Depression: (8) Hypertension: (9) Hyperlipidemia: (10) Iron deficiency anemia: (11) GERD (gastroesophageal reflux disease): Plan Diet:Reg IVF: None DVT PPx: Lovenox/SCD Dispo: Medically stable. SNF placement hard to obtain. Pt's requesting pt to come home w/ home wound care. Pt's coming in tomorrow to discuss placement situation. Code Status: Full Admission and Anticipated Discharge Date Admission Date: January 05, 2022 Supervising Physician Co-Signing Physician Notes I personally examined the patient and verified all pleitez points of history and exam, discussed case, and agree with decision making with Dr Agee Feeling pretty good overall starting to think he could maybe go home instead of SNF. Will need to discuss with . Vitals noted, in general he is awake and alert pleasant no distress. HEENT normocephalic atraumatic mucous membranes moist. Breathing unlabored no accessory muscle use good effort. Skin shows no rashes no pallor or icterus. Neuro without focal deficits. UTItreated, status post ureteral stent exchange Sacral ulcerdebrided, status post course of antibiotics, ongoing local wound care DVT prophylaxisLovenox Revisiting dispo options Subjective Pt is a 61 yo male with PMH of T4 Paraplegia, recurrent UTI, HTN, HLD, GERD, MDD, bilateral hydronephrosis, and hepatic encephalopathy who presented to the ER for intermittent confusion, possible UTI, and sacral wounds. He was admitted for management of UTI with antibiotics and AMS. Pt doing well this morning. No new complaints of chest pain and SOB. Discussed placement with pt. He understands that we are awaiting for further information from various facilities. I spoke w/ the pt's and she would like him to come home w/ home wound care help. Pt's is coming in tomorrow around noon to visit/discuss placement. Physical Exam Constitutional: NAD. Vitals WNL. Eyes: no conjunctival abnormality Respiratory: CTA bilaterally. No rhonchi, wheezing, or crackles. Non labored breathing. Cardiovascular: RRR. No murmur noted. No LE edema. R foot edema improved from yesterday. Gastrointestinal (Abdomen): Distended, nontender, +BS. No masses noted. Musculoskeletal: Bilateral muscle wasting in LE. Skin: no rashes, warm and dry Psychiatric: Alert. Mood and affect congruent. Results & Data Results & Data ([facility]) Vital Signs (Past 12 Hours) Vital Signs Temp Pulse Resp BP Pulse Ox O2 Del Method 01/22/22 07:16 36.5 C 84 18 116/73 97 Room Air 01/22/22 04:22 36.7 C 88 20 123/78 94 Room Air Resident Activity Tracking Resident Involvement: Resident Care Provided Care Provided: Adult Hospital Medicine (1) Iron deficiency anemia Iron deficiency anemia type: inadequate dietary iron intake Qualified Code(s): D50.8 - Other iron deficiency anemias (2) GERD (gastroesophageal reflux disease) Esophagitis presence: without esophagitis Qualified Code(s): K21.9 - Gastro- esophageal reflux disease without esophagitis
--- NOTE | 2022-01-22 19:09 | Billing Data ---
Date of Service January 22, 2022 Coding Level of Care Code 75475 Subseq Hosp Care Lvl 2
[2022-01-22] MEDS: ENOXAPARIN INJ 40 MG/0.4 ML SYR SQ SCH (22:26)
[2022-01-23] MEDS: AMITRIPTYLINE HCL 50 MG TAB PO SCH (00:02)
[2022-01-23] MEDS: ACETAMINOPHEN 500 MG TAB PO PRN ×2 (02:02→20:03)
[2022-01-23 06:38] LABS: Hematocrit (blood only) 29.5 % (40.1-51.0); Hemoglobin 9.3 g/dl (14.0-18.0); Mean Corpuscular Hgb Conc 31.5 g/dL (32.0-36.0); Mean Corpuscular Volume 88.9 fL (80.0-100.0); Mean Platelet Volume 8.6 fL (9.4-12.4); Platelet Count 755 K/uL (130-400); RDW Coefficient of Variation 21.5 % (11.5-14.5); RDW Standard Deviation 68.8 fL (36.4-46.3); Red Blood Count 3.32 M/uL (4.63-6.08); White Blood Count 9.42 K/ul (4.8-10.8)
[2022-01-23 06:56] LABS: BUN Creatinine Ratio 46.9 (10-20); Calcium 8.5 mg/dl (8.5-10.1); Creatinine Clr Calc Pharmacy 112.5 ml/min; Est GFR (African American) 123.3 ml/min; Est GFR (Non-African American) 106.4 ml/min; Potassium 3.6 mmol/L (3.5-5.1)
[2022-01-23] MEDS: SENNA 8.6 MG TAB PO SCH ×2 (09:30→21:53)
[2022-01-23] MEDS: PANTOprazole 40 MG TAB PO SCH ×2 (09:31→21:53)
[2022-01-23] MEDS: LINACLOTIDE 145 MCG CAPSULE PO SCH (09:31)
[2022-01-23] MEDS: MULTIVITAMIN TAB PO SCH (09:31)
[2022-01-23] MEDS: FLUoxetine HCL 20 MG CAP PO SCH (09:31)
[2022-01-23] MEDS: ASPIRIN 81 MG ECTAB PO SCH (09:32)
[2022-01-23] MEDS: ATORVASTATIN 40 MG TAB PO SCH (09:32)
[2022-01-23] MEDS: ASCORBIC ACID 500 MG TAB PO SCH ×2 (09:32→21:53)
[2022-01-23] MEDS: FERROUS SULFATE 325 MG TAB PO SCH (09:32)
[2022-01-23] MEDS: traMADol HCL 50 MG TABLET PO PRN (15:28)
--- NOTE | 2022-01-23 18:08 | Hospitalist Progress Note ---
Date of Service January 23, 2022 Assessment & Plan (1) UTI (urinary tract infection): Plan: Pt is a 61 yo male with PMH of T4 Paraplegia, recurrent UTI, HTN, HLD, GERD, MDD, bilateral hydronephrosis, and hepatic encephalopathy who presented to the ER for intermittent confusion, possible UTI, and sacral wounds. He was admitted for management of UTI with antibiotics and AMS. Urinary Tract Infection with chronic garrison - s/p placement of bilateral ureteral stents for hydronephrosis, chronic indwelling catheter use, incontinence of bowel and bladder, hx of resistant urinary infections - Required admission d/t displacement of ureteral stents in November - Blood Culture: Contaminant - Urine Culture: three types of organisms present, moderate levels - Mild leukocytosis- 15.27 which has since downtrended --- Urology evaluated patient and able to replace ureteral stents on Wednesday 01/17 --- Completed 7 day course of Zosyn and transitioned to augmentin for 6 days: completed 13 days total ABX Obstructive Uropathy - s/p bilateral ureteral stents placement for hydronephrosis - Stents replaced 01/17 Chronic Constipation - History: Discharged from last admission on Linzess, Senna, and PRN Miralax/Colace, gave patient enema 01/05 - CTAP: Improvement of impaction from last admission w/o obstruction - Had a couple loose stools Saturday 01/13- Linzess/Senna held 01/14 - resumed linzess and senna 01/15 - 01/17 pt w/o BM for a few days- added miralax BID - 01/19 increased miralax to q4hr, resulting in copious loose BM - 01/20 decrease miralax frequency to BID, continue linzess and senna - 01/21 decreased miralax to PRN Iron Deficiency Anemia - history of iron def anemia likely anemia of chronic disease - continue PO iron - Received 1 dose Venofer 01/13 - Hbg= 6.9 on 01/16, no active bleeding- transfused 1 unit of pRBCs - Hgb today= 9.3 Pressure ulcer of R ischium , stage III-IV, POA Pressure ulcer of sacrum, stage III-IV, POA - Patient has been developing sacral/gluteal pressure ulcers since his admission in November - Re-position q2h - Tylenol and Tramadol ordered for pain PRN - wound cultures positive for MRSA --- Surgery debrided wound 01/17 --- Continue wound care --- Completed 14 day course of vanco d/t MRSA pos cultures --- f/u with surg or wound care after d/c Chronic thrombocytosis - platelet count 600-700k - likely from chronic infection Altered Mental Status - Prior hepatic encephalopathy (prior admission in November) - No acute change in mental status (per patient and ), slow decline appreciated over last year - CT Head: No acute intracranial findings. No change in appearance of the brain. Partially opacified right mastoid air cells. - Ammonia level wnl --- Patient at baseline, AO x 4, occasional word finding difficulty --- history of TIA, increased atorvastatin to 40mg Incidental COVID-19 Infection - CXR: Subtle right lower lung reticulonodular interstitial thickening, could reflect a mild infectious process or mild aspiration pneumonitis - Incentive laquita, flutter, PRN albuterol, PRN O2 - per CDC guidelines, pt meets requirements to discontinue isolation --- Patient asymptomatic, afebrile, lungs CTAB, oxygenating well on room air Depression - Continue fluoxetine Hypertension - No home medication regimen, monitor inpatient - stable Hyperlipidemia - chronic elevation of Alk Phos - increased Atorvastatin to 40 mg daily d/t hx of small vessel disease on MRI Iron deficiency anemia - Continue Iron and Vit C GERD (gastroesophageal reflux disease) - Continue Omeprazole (2) COVID-19: (3) Sacral wound: (4) Confusion: (5) S/P ureteral stent placement: (6) Constipation: (7) Depression: (8) Hypertension: (9) Hyperlipidemia: (10) Iron deficiency anemia: (11) GERD (gastroesophageal reflux disease): Plan Diet:Reg IVF: None DVT PPx: Lovenox/SCD Dispo: Medically stable. SNF placement hard to obtain. Pt's requesting pt to come home w/ home wound care. Plan to d/c home tomorrow w/ home health services Code Status: Full Admission and Anticipated Discharge Date Admission Date: January 05, 2022 Supervising Physician Co-Signing Physician Notes I personally examined the patient and verified all pleitez points of history and exam, discussed case, and agree with decision making with Dr Agee When I see himwe are awaiting his cominglater she has been in, feels comfortable taking care of him at home. Case management working on getting wound VAC and home nursing set up. Anticipate discharge to home now. Vitals noted, in general he is awake and alert pleasant no distress. HEENT normocephalic atraumatic mucous membranes moist. Breathing unlabored no accessory muscle use good effort. Skin shows no rashes no pallor or icterus. Neuro without focal deficits. UTItreated, status post ureteral stent exchange Sacral ulcerdebrided, status post course of antibiotics, ongoing local wound care, wound VAC being set up DVT prophylaxisLovenox Anticipate discharge to home once wound VAC set up and home nursing set up. Hopefully tomorrow. Subjective Pt is a 61 yo male with PMH of T4 Paraplegia, recurrent UTI, HTN, HLD, GERD, MDD, bilateral hydronephrosis, and hepatic encephalopathy who presented to the ER for intermittent confusion, possible UTI, and sacral wounds. He was admitted for management of UTI with antibiotics and AMS. Pt doing well this morning. No new complaints of chest pain and SOB. Pt wishes to go home w/ home wound care assistance and his as caregiver. He does not believe that home PT would be helpful. Physical Exam Constitutional: NAD. Vitals WNL. Eyes: no conjunctival abnormality Respiratory: CTA bilaterally. No rhonchi, wheezing, or crackles. Non labored breathing. Cardiovascular: RRR. No murmur noted. No LE edema. Gastrointestinal (Abdomen): Nontender, +BS. No masses noted. Skin: no rashes, warm and dry Psychiatric: Alert. Mood and affect congruent. Results & Data Results & Data ([facility]) Vital Signs (Past 12 Hours) Vital Signs Temp Pulse Resp BP BP Pulse Ox O2 Del Method 01/23/22 16:03 37.2 C 84 14 130/83 99 Room Air 01/23/22 06:45 36.6 C 70 18 136/85 96 Room Air Resident Activity Tracking Resident Involvement: Resident Care Provided Care Provided: Adult Hospital Medicine (1) Iron deficiency anemia Iron deficiency anemia type: inadequate dietary iron intake Qualified Code(s): D50.8 - Other iron deficiency anemias (2) GERD (gastroesophageal reflux disease) Esophagitis presence: without esophagitis Qualified Code(s): K21.9 - Gastro- esophageal reflux disease without esophagitis
--- NOTE | 2022-01-23 19:21 | Billing Data ---
Date of Service January 23, 2022 Coding Level of Care Code 46651 Subseq Hosp Care Lvl 2
[2022-01-23] MEDS: ENOXAPARIN INJ 40 MG/0.4 ML SYR SQ SCH (21:53)
[2022-01-24] MEDS: AMITRIPTYLINE HCL 50 MG TAB PO SCH (00:40)
[2022-01-24 08:56] LABS: Hematocrit (blood only) 29.2 % (40.1-51.0); Hemoglobin 9.4 g/dl (14.0-18.0); Mean Corpuscular Hemoglobin 28.1 pg (25.0-34.0); Mean Corpuscular Hgb Conc 32.2 g/dL (32.0-36.0); Mean Corpuscular Volume 87.2 fL (80.0-100.0); Mean Platelet Volume 8.5 fL (9.4-12.4); Platelet Count 799 K/uL (130-400); RDW Coefficient of Variation 21.5 % (11.5-14.5); RDW Standard Deviation 67.5 fL (36.4-46.3); Red Blood Count 3.35 M/uL (4.63-6.08); White Blood Count 9.62 K/ul (4.8-10.8)
[2022-01-24] MEDS: MULTIVITAMIN TAB PO SCH (08:56)
[2022-01-24] MEDS: FLUoxetine HCL 20 MG CAP PO SCH (08:56)
[2022-01-24] MEDS: LINACLOTIDE 145 MCG CAPSULE PO SCH (08:56)
[2022-01-24] MEDS: ASPIRIN 81 MG ECTAB PO SCH (08:57)
[2022-01-24] MEDS: ATORVASTATIN 40 MG TAB PO SCH (08:57)
[2022-01-24] MEDS: FERROUS SULFATE 325 MG TAB PO SCH (08:57)
[2022-01-24] MEDS: PANTOprazole 40 MG TAB PO SCH (08:58)
[2022-01-24] MEDS: ASCORBIC ACID 500 MG TAB PO SCH (08:58)
[2022-01-24] MEDS: SENNA 8.6 MG TAB PO SCH (08:59)
[2022-01-24 09:29] LABS: BUN Creatinine Ratio 35.9 (10-20); Calcium 8.7 mg/dl (8.5-10.1); Creatinine Clr Calc Pharmacy 109.2 ml/min; Est GFR (African American) 123.3 ml/min; Est GFR (Non-African American) 106.4 ml/min; Potassium 3.9 mmol/L (3.5-5.1)
--- NOTE | 2022-01-24 14:31 | Discharge Summary ---
Date of Service January 24, 2022 Admission HPI Per Admitting Provider 61yo male with history of T4 paraplegia, recurrent pseudomonal UTIs with indwelling Garrison catheter in place, asplenia, hypertension, hyperlipidemia, GERD, depression, chronic BL hydronephrosis S/P BL ureteral sten placement, hepatic encephalopathy, hyperlipidemia, GERD who presented to the [facility] ED on 01/05/22 with multiple sacral wounds, possible UTI, and intermittent confusion. Per chart review, the patient was last admitted to [facility] from 11/09/21-11/23/21 for Sepsis, AMS, displacement of indwelling Ureteral Stent, and fecal impaction. Sepsis was thought to be due to UTI and acute hepatic encephalopathy. The yessenia cee was found to have gram negative bacteremia positive for Providencia, his urine culture grew multiple organisms. He was initially started on Ceftriaxone and Vancomycin but was later continued only on Ceftriaxone. Urology was consulted for the displacement of his ureteral stent, he underwent stent exchange in 11/10/21. The patient was found to have hyperammonemia of 141, he had normal liver morphology on CT. He was started on lactulose QID and his ammonia returned to normal levels. The patient was manually disimpacted with removal of large stool ball, he was then continued in Linzess, senna, dulcolax prn and mirallax prn. In the ED today the patient was found to be afebrile, hemodynamically stable, and stable on RA. Labs were remarkable for a leukocytosis of 15.55 with left shift of 12.15, stable Hgb at 10.p, stable renal function, lactate WNL, calcium of 8.2 otherwise stable electrolytes, alk phos of 244, AST/ALT WNL, albumin of 2.4, procal of 2.75, TSH WNL, UA concerning for infection and covid +. CT of the abdomen and pelvis with IV contrast showed "There is a sacral ulcer without evidence of drainable fluid collection or osteomyelitis. Large stool burden in the rectum with inspissation. Compared to prior exam, the rectal wall is less prominently thickened. Mild bilateral hydronephrosis, less conspicuous than the prior exam. Bilateral nephroureteral stents are seen, the left stent is now in satisfactory position. A ureteral stone is noted on the left.". Prior to admission the patient was given vancomycin, Zosyn, and started on IV fluids. At the time of the exam the patient was resting comfortably in bed in no acute distress with his sitting bedside. History was obtained from both the patient and his . His states that since arriving back home from rehab approximately 3 weeks ago she has been trying to treat sacral wounds. She states that the wounds were not there prior to being discharged from [facility] his last ad mission. She states that she has been using Dankis wet to dry dressings and barrier cream but they are continuing to worsen. She states that over the past year the patient has had continued intermitted confusion/memory loss. When I continued to ask for more details she elaborated that there has not been an acute change in mental status, this has been a slow transition that continues to get worse. She is concerned that he has another UTI as the urine in his garrison was dark and she noticed sediment at the bottom of the garrison bag. Over the past week the patient has had decreased appetite and oral intake as he has not been hungry. His states that the patient had one episode of vomiting a few days ago. He has had a non-productive cough over the past few days as well. She states the patient's last bowel movement was yesterday after she gave him an enema, she states he had a loose bowel movement after. She has continued to give him linzess, senna, and miralax as prescribed. The patient denies current chest pain and SOB, changes in vision, hearing, taste, and smell. I discussed code status with the patient and his , he is a Full Code and his would make decisions for him if he could not make them himself. [place] refer to Dr. Echeverria's attestation for any adjustments to the treatment plan. Admission Exam Per Admitting Provider General: patient chronically ill in appearance, no acute distress, oriented only to self Skin: warm, dry, well demarcated erythematous rash on groin and scrotum with satellite lesions HEENT: NC/AT, PERRL, EOMI, anicteric sclera, conjunctiva without injection, external ear normal to inspection and nontender, nares patent, dry mucus membranes, dentition intact, no oropharyngeal lesions, neck supple, trachea midline, no LAD, no thyromegaly, no JVD Heart: +S1/S2, regular, tachycardic no m/r/g Lungs: equal air entry bilaterally, no rales/rhonchi/wheezes Abd: +BS, soft, NT/ND, no masses/organomegaly/ascites Ext: warm, 2+ pulses in UE/LE bilaterally Neuro: Patient awake alert and oriented to self, becomes confused during exam and offers very little history, T4 paraplegia Principal Diagnosis AMS d/thepatic encephalopathy, sacral wounds, complicated UTI Discharge Exam Constitutional NAD. Vitals WNL. Respiratory CTA bilaterally. No rhonchi, wheezing, or crackles. Non labored breathing. Cardiovascular RRR. No murmur noted. Slight edema of right foot. Gastrointestinal (Abdomen) Distended, soft, nontender. +BS. No masses noted. Musculoskeletal Bilateral LE muscle wasting Psychiatric Alert. Mood and affect congruent. Discharge Data Allergies Allergy/AdvReac Type Severity Reaction Status Date / Time caffeine AdvReac Intermediate Gastrointestinal Verified 11/09/21 22:19 Upset ibuprofen AdvReac Intermediate GI Bleed Verified 11/09/21 22:19 Consultations 01/05/22 17:23 ED Decision to Admit Stat 01/08/22 17:44 Consult Urology Routine 01/08/22 17:46 Consult General Surgery Routine 01/14/22 15:08 Consult General Surgery Routine Consult Urology Routine 01/15/22 07:00 Consult General Surgery Routine Consult Urology Routine Procedures Performed Operation Date: 01/17/22 11:00 Actual Procedures p Cystoscopy, Bilateral Retrograde Pyelogram, Bilateral Stent Exchange(Bilateral) - Ottoniel Verdin MD s Incision and Drainage Sacral Ulcer(Not Applicable) - Leonid Gomez, DO, FACS Ordered Studies 01/05/22 15:23 CT abd pelvis IV con only Stat 01/05/22 19:00 CT head/brain wo con Urgent 01/17/22 11:00 FL retrograde includes kub Routine Abdomen/Pelvis CT 01/05/22 15:23 CT abd pelvis IV con only CLINICAL HISTORY: fever, sacral wounds TECHNIQUE: Helical axial images of the abdomen and pelvis were obtained and displayed. Automated dose lowering techniques and/or adjustment according to patient size were utilized for this exam. This exam was performed with intravenous contrast. CT DOSE: 297.58 mGy.cm COMPARISON: Comparison is made to CT abdomen pelvis 11/09/2021 FINDINGS: Lower chest: Bronchiectasis and atelectasis are seen in the lung bases. Liver: Unremarkable. No focal lesions are seen. Gallbladder and biliary tree: Patient is status post cholecystectomy. Physiologic Physiologic prominence of the biliary ducts is noted. Pancreas: Fatty replacement of the pancreas is seen. Spleen: Unremarkable. Adrenals: Unremarkable. Kidneys and ureters: Bilateral mild hydronephrosis is seen. There are multiple bilateral nephroureteral stents. There is a left ureteral stone measuring 8 mm in diameter. Bladder: Garrison catheter is seen. Reproductive organs: Unremarkable. Bowel: Large stool burden is seen with inspissation in the rectum. The appendix is not definitely seen however no secondary signs of appendicitis are noted. Small bowel anastomosis and hiatal hernia are noted. Lymph nodes Retroperitoneal: Subcentimeter lymph nodes are noted. Pelvic: Unremarkable. Mesenteric: Unremarkable. Peritoneum: Normal. Vessels: Atherosclerotic calcifications are seen. Abdominal wall: Soft tissue stranding is seen about the sacrum however there is no drainable fluid collection or tract extending to the sacrum. No focal lucencies seen in the sacrum to suggest osteomyelitis. Bones: Degenerative changes in the visualized spine. IMPRESSION: 1. There is a sacral ulcer without evidence of drainable fluid collection or osteomyelitis. 2. Large stool burden in the rectum with inspissation. Compared to prior exam, the rectal wall is less prominently thickened. Mild bilateral hydronephrosis, less conspicuous than the prior exam. 3. Bilateral nephroureteral stents are seen, the left stent is now in satisfactory position. A ureteral stone is noted on the left. ACT 112: Negative or not required by law. Electronically signed by: Colt Johnson M.D. 01/05/2022 4:44 PM Chest X-Ray 01/05/22 18:56 XR chest 1V portable CLINICAL HISTORY: possible aspiration COMPARISON STUDY: Chest radiograph November 09, 2021. Chest CT January 24, 2021. FINDINGS: Postoperative findings within the thoracic spine are noted. Cardiac size is normal. Mediastinal contours are normal. There is no pneumothorax or pleural effusion. No consolidation is noted. There is subtle right lower lung reticulonodular interstitial thickening. IMPRESSION: Subtle right lower lung reticulonodular interstitial thickening. This could reflect a mild infectious process or mild aspiration pneumonitis. ACT 112: Negative or not required by law. Electronically signed by: Omar Fisher M.D. 01/05/2022 7:[address] 01/05/22 19:00 CT OF THE HEAD WITHOUT CONTRAST CLINICAL HISTORY: Altered mental status. COMPARISON STUDY: Head CT November 09, 2021. CT DOSE: 853.38 mGy.cm TECHNIQUE: Helical axial images of the head were obtained without IV contrast. Automated exposure control was utilized for the study. A dose lowering technique was utilized adhering to the principles of ALARA. FINDINGS: No acute intracranial hemorrhage, midline shift or mass effect is present. Atrophy and white matter hypodensities are again noted. The ventricular system is unremarkable. The basal cisterns are patent. No extra-axial collections are present. There are no findings to suggest acute dural sinus thrombosis or acute territorial infarct. No significant calvarial abnormalities are present. Right mastoid air cells are partially opacified. IMPRESSION: 1. No acute intracranial findings. No change in appearance of the brain. 2. Partially opacified right mastoid air cells. ACT 112: Negative or not required by law. Electronically signed by: Omar Fisher M.D. 01/05/2022 8:43 PM Retrograde Pyelogram 01/17/22 11:00 FL retrograde includes kub CLINICAL HISTORY: B/L COMPARISON STUDY: CT of the abdomen and pelvis January 05, 2022. FLUOROSCOPY TIME: 33 seconds. FLUOROSCOPIC IMAGES: 12. FINDINGS: Fluoroscopy was provided during bilateral retrograde exams with bilateral ureteral stent exchange. Stents are well-positioned. Mild bilateral hydronephrosis is again noted. IMPRESSION: Fluoroscopy provided during bilateral retrograde exams with bilateral ureteral stent exchange. ACT 112: Negative or not required by law. Electronically signed by: Omar Fisher M.D. 01/17/2022 2:16 PM Hospital Course (1) UTI (urinary tract infection): Pt is a 61 yo male with PMH of T4 Paraplegia, recurrent UTI, HTN, HLD, GERD, MDD, bilateral hydronephrosis, and hepatic encephalopathy who presented to the ER for intermittent confusion, possible UTI, and sacral wounds. He was admitted for management of UTI with antibiotics and AMS. Urinary Tract Infection with chronic garrison - s/p placement of bilateral ureteral stents for hydronephrosis, chronic indwelling catheter use, incontinence of bowel and bladder, hx of resistant urinary infections - Required admission d/t displacement of ureteral stents in November - Blood Culture: Contaminant - Urine Culture: three types of organisms present, moderate levels - Mild leukocytosis- 15.27 which has since downtrended --- Urology evaluated patient and replaced ureteral stents on Wednesday 01/17 --- Completed 7 day course of Zosyn and transitioned to augmentin for 6 days: completed 13 days total ABX Obstructive Uropathy - s/p bilateral ureteral stents placement for hydronephrosis - Stents replaced 01/17 - f/u with urology for further management Chronic Constipation - History: Discharged from last admission on Linzess, Senna, and PRN Miralax/Colace, gave patient enema 01/05 - CTAP: Improvement of impaction from last admission w/o obstruction - Had a couple loose stools Saturday 01/13- Linzess/Senna held 01/14 - resumed linzess and senna 01/15 - 01/17 pt w/o BM for a few days- added miralax BID - 01/19 increased miralax to q4hr, resulting in copious loose BM - 01/20 decrease miralax frequency to BID, continue linzess and senna - 01/21 decreased miralax to PRN - encouraged pt to use miralax PRN in addition to home regimen of linzess and senna Iron Deficiency Anemia - history of iron def anemia likely anemia of chronic disease - continue PO iron - Received 1 dose Venofer 01/13 - Hbg= 6.9 on 01/16, no active bleeding- transfused 1 unit of pRBCs - Hgb today= 9.4 Pressure ulcer of R ischium , stage III-IV, POA Pressure ulcer of sacrum, stage III-IV, POA - Patient has been developing sacral/gluteal pressure ulcers since his admission in November - Re-position q2h - Tylenol and Tramadol ordered for pain PRN - wound cultures positive for MRSA --- Surgery debrided wound 01/17 --- Continue wound care --- Completed 14 day course of vanco d/t MRSA pos cultures --- f/u with wound care next week for wound vac placement Chronic thrombocytosis - platelet count 600-700k - likely from chronic infection Altered Mental Status - Prior hepatic encephalopathy (prior admission in November) - No acute change in mental status (per patient and ), slow decline appreciated over last year - CT Head: No acute intracranial findings. No change in appearance of the brain. Partially opacified right mastoid air cells. - Ammonia level wnl --- Patient at baseline, AO x 4, occasional word finding difficulty --- history of TIA, increased atorvastatin to 40mg Incidental COVID-19 Infection - CXR: Subtle right lower lung reticulonodular interstitial thickening, could reflect a mild infectious process or mild aspiration pneumonitis - Incentive laquita, flutter, PRN albuterol, PRN O2 - per CDC guidelines, pt meets requirements to discontinue isolation --- Patient asymptomatic, afebrile, lungs CTAB, oxygenating well on room air Depression - Continue fluoxetine Hypertension - No home medication regimen, monitor inpatient - stable Hyperlipidemia - chronic elevation of Alk Phos - increased Atorvastatin to 40 mg daily d/t hx of small vessel disease on MRI Iron deficiency anemia - Continue Iron and Vit C GERD (gastroesophageal reflux disease) - Continue Omeprazole (2) COVID-19: (3) Sacral wound: (4) Confusion: (5) S/P ureteral stent placement: (6) Constipation: (7) Depression: (8) Hypertension: (9) Hyperlipidemia: (10) Iron deficiency anemia: (11) GERD (gastroesophageal reflux disease): Plan Diet:Reg IVF: None DVT PPx: Lovenox/SCD Dispo: Medically stable. SNF placement hard to obtain. Pt is going home w/ as main caregiver with additional help of home health and wound care f/u appts Code Status: Full Total Time Total Time Spent Total Time Spent (In Minutes): <30 Discharge Plan Discharge Items Patient Disposition: Home - Home Health Services Reason For Visit: Wounds, Weakness Discharge Diagnosis: complicated UTI, sacral ulcers Condition on Discharge: Fair Activity: Per Instructions section Non-emergency contact: Primary Care Provider and Urologist Call non-emergency contact if: you have any medication questions and your symptoms worsen Follow-up/Referrals: Zenaida Flanagan PA-C [Primary Care Provider] - 01/30/22 3:30 pm (With Dariela Kimbrough PA-C at [facility] ) Ottoniel Verdin MD [Physician] - (f/u stent management) Diet: Regular Addtl Attending Provider Instructions: You were admitted to the hospital for symptoms most likely related to a complicated urinary tract infection. You were incidentally found to be COVID positive. You were treated with IV fluids and antibiotics (zosyn). Your ulcers were also found to be MRSA positive and those were treated with the antibiotic vancomycin. Before your discharge, the urology team replaced your ureteral stents and the surgery team debrided your sacral wounds (01/17/2022). A discharge summary will be sent to your primary care physician to ensure continuity of care. Please bring this discharge summary with you to your next office appointment so that your provider can review it at that time. Medications: Your medication list has been reviewed and reconciled upon discharge to ensure accuracy and continuity of care. An updated list of all your medications is included with your hospital discharge paperwork. Please review this list closely and make note of any changes to your medications. - Use miralax in addition to your previous laxative regimen (senna and linzess) as needed if constipation occurs. - Your cholesterol medication (atorvastatin) was increased from 20 mg to 40 mg every night. Continue this dose at home. - Continue all your medications as before your hospitalization. Follow up appointments: - Make a follow up appointment with your PCP within the next week. It is very important that you follow up with them shortly after discharge from the hospital. - You should also follow up with your urologist in 1-2 weeks after discharge for continued ureteral stent management. - You will have a wound care appointment set up for next week to place a wound vac. - Home health services will come to your house starting Saturday, January 29, 2022. - Keep all of your follow up appointments as already scheduled. If you cannot make an appointment, notify your provider. CONTACT YOUR PRIMARY CARE PROVIDER if you experience any of the following: - Difficulty following your treatment plan - Difficulty taking any of your medications CALL 911 OR GO TO THE EMERGENCY DEPARTMENT if you experience any of the following: - Increased confusion - Sudden, severe abdominal pain or nausea/vomiting - Severe chest pain or chest pain that radiates to your jaw or arm - Sudden, severe shortness of breath or difficulty breathing Pending Studies at Discharge: No Stand-Alone Forms: My [employer], Smoking Cessation Medications and DC Order Prescriptions: New atorvastatin 40 mg Tablet 40 mg PO HS Qty: 30 0RF Continued methenamine hippurate 1 gram tablet 1 g PO Q12H Qty: 60 6RF ascorbic acid (vitamin C) 500 mg capsule 1,000 mg PO BID multivitamin Tablet 1 tab PO QAM omeprazole 40 mg Capsule,Delayed Release(Dr/Ec) 40 mg PO BID oxycodone-acetaminophen 10-325 mg Tablet 1 tab PO Q6H PRN (Reason: Pain) ferrous sulfate [iron] 325 mg (65 mg iron) Tablet 325 mg PO QAM Linzess 145 mcg Capsule 145 mcg PO QAM sennosides [Senokot] 8.6 mg Tablet 25.8 mg PO Q12 Rx Instructions: 3 tablet dose aspirin 81 mg Tablet,Delayed Release (Dr/Ec) 81 mg PO QAM amitriptyline 50 mg Tablet 50 mg PO HS Rx Instructions: Takes at Midnight zolpidem 5 mg tablet 5 - 10 mg PO HS PRN (Reason: Sleep) fluoxetine 20 mg capsule 40 mg PO DAILY Discontinued atorvastatin 20 mg Tablet 20 mg PO HS Rx Instructions: Takes at Midnight Discharge Orders: Discharge Order (Routine); Ordered 01/24/22 Ordered By: Elizabeth Riley/Other Patient Handouts: Pressure Injury Reduce Risk Admission Data Admit Date/Time: 01/05/22 20:38 Attending Provider: Geronimo Mckinney Admit Provider: Galindo Echeverria Primary Care Provider: Zenaida Flanagan Other Providers: Ap Mcpherson ; Geronimo Mckinney ; Galindo Echeverria ; Clifford Cedeno ; [facility] Other Interventions: Discharge Summary Assessment (RN) Last Done: 01/24/22 16:18 Supervising Physician Co-Signing Physician Notes I personally examined the patient and verified all pleitez points of history and exam, discussed case, and agree with decision making with Dr Agee for home. approved for what he needs. happy to be getting home Vitals noted, in general he is awake and alert pleasant no distress. HEENT normocephalic atraumatic mucous membranes moist. Breathing unlabored no accessory muscle use good effort. Skin shows no rashes no pallor or icterus. Neuro without focal deficits. UTItreated, status post ureteral stent exchange, off abx. outpt urology follow up Sacral ulcerdebrided, status post course of antibiotics, ongoing local wound care, wound clinic follow up DVT prophylaxisLovenox home w , home nursing, home wound care Resident Activity Tracking Resident Involvement: Resident Care Provided Care Provided: Adult Hospital Medicine
--- NOTE | 2022-01-24 19:21 | Billing Data ---
Date of Service January 24, 2022 Coding Level of Care Code D/C DAY MANAGEMENT <30 MINS
== END 2022-01-24 17:20 | disposition home health service (06) | DRG 659 ==
LOC: ED 12:35 → 2N 19:51 → SUATTDRO 20:38 → 2N 20:38 → 2W 01-17 06:16 → 3E 01-22 15:03

== ENCOUNTER 2022-03-15 15:05 | Inpatient (IN) ==
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
[2022-03-15 16:06] LABS: Basophils # (auto) 0.15 K/uL (0-0.2); Basophils % (auto) 1.4 %; Eosinophils % (auto) 4.8 %; Hematocrit (blood only) 28.1 % (40.1-51.0); Hemoglobin 8.7 g/dl (14.0-18.0); Immature Granulocytes # (auto) 0.06 K/uL (0.00-0.02); Immature Granulocytes % (auto) 0.6 %; Lymphocytes # (auto) 1.58 K/uL (1.2-3.4); Lymphocytes % (auto) 15.1 %; Mean Corpuscular Volume 83.9 fL (80.0-100.0); Mean Platelet Volume 8.7 fL (9.4-12.4); Monocytes % (auto) 8.6 %; Neutrophils # (auto) 7.24 K/uL (1.4-6.5); Neutrophils % (auto) 69.5 %; Platelet Count 546 K/uL (130-400); RDW Standard Deviation 63.8 fL (36.4-46.3); Red Blood Count 3.35 M/uL (4.63-6.08); White Blood Count 10.43 K/ul (4.8-10.8)
[2022-03-15 16:23] LABS: Anisocytosis Present; Polychromasia 1+
[2022-03-15 16:47] LABS: Troponin I High Sensitivity 9.4 pg/ml (0-20)
[2022-03-15 16:48] LABS: Albumin Level 2.4 gm/dl (3.4-5.0); BUN Creatinine Ratio 22.7 (10-20); Bilirubin Direct 0.1 mg/dl (0-0.2); Bilirubin,Total 0.2 mg/dl (0.2-1.0); Calcium 8.1 mg/dl (8.5-10.1); Creatinine Clr Calc Pharmacy 84.6 ml/min; Est GFR (African American) 108.2 ml/min; Est GFR (Non-African American) 93.4 ml/min; Magnesium 1.9 mg/dl (1.7-2.4); Potassium 4.5 mmol/L (3.5-5.1); Total Protein 6.4 gm/dl (6.0-8.3)
--- NOTE | 2022-03-15 17:04 | XRay Report ---
XR chest 1V portable CLINICAL HISTORY: Sepsis TECHNIQUE: Single frontal radiograph of the chest was obtained. Comparison: Comparison is made to chest radiograph 01/05/2022 FINDINGS: Right humeral hardware is seen. Posterior fixation hardware is noted in the spine. The cardiomediasti nal silhouette is normal. The lungs are clear. No evidence of pleural effusion or pneumothorax. IMPRESSION: No acute abnormalities and in particular no evidence of pneumonia. ACT 112: Negative or not required by law. Electronically signed by: Colt Johnson M.D. 03/15/2022 5:03 PM
[2022-03-15 17:07] LABS: Appearance Urine Turbid (Clear); Bacteria Urine Automated Negative (Negative); Bilirubin Urine Negative (Negative); Blood Urine 3+ (Negative); Color Urine Yellow; Epithelial Cell Urine Auto 20-30 /lpf (0-5); Glucose Urine UA Negative (Negative); Ketones Urine Negative (Negative); Leukocyte Esterase Urine 3+ (Negative); Nitrite Urine Negative (Negative); Protein Urine 3+ (Negative); Specific Gravity Urine 1.019 (1.000-1.030); Urobilinogen Urine Negative (Negative); WBC Urine Automated >30 /hpf (0-5)
[2022-03-15 17:17] LABS: RBC Urine Automated 0-4 /hpf (0-4)
[2022-03-15 18:04] LABS: Cast Urine Automated 0 /lpf (0-5)
[2022-03-15] MEDS ORDERED: CEFEPIME 2,000 MG in SYRINGE 0 ML IV STA (18:08)
[2022-03-15] MEDS ORDERED: VANCOMYCIN CONSULT ACTIVE PRN (18:13)
[2022-03-15] MEDS ORDERED: CEFEPIME 20 ML IV STA (18:17)
--- NOTE | 2022-03-15 18:20 | History & Physical Report ---
Date of Service March 15, 2022 Assessment & Plan (1) Sacral decubitus ulcer: Plan: Mainly needs good wound care and will consult wound care nurse here. Previously on wound VAC from [place] wound care that was changed [facility] although unclear why that is not currently in place. Unclear if needs debriding and will consult surgery for opinion. Suspect he had surrounding cellulitis as he developed WBC while on Levaquin with associated hypotension at [place] which improved with cefepime/vancomycin therefore will place him back on this as we know this was successfully treating the overlying infection. Requested previous wound culture from [place] and repeated here Follow up blood cultures (2) Osteomyelitis: Plan: Given prior CT imaging at [place] was without contrast and his is c oncerned the sacral ulcers are getting worse will repeat CT A/P here with contrast Consult surgery for possible sacral biopsy (3) Paraplegia: Plan: Continue cathether and bowel regimen (4) Depression: Plan: Continue fluoxetine (5) GERD (gastroesophageal reflux disease): Plan: Switch omeprazole for pantoprazole per hospital formulary (6) Hydroureteronephrosis: Plan: Stable. No acute intervention required (7) History of partial gastrectomy: (8) History of partial colectomy: (9) History of appendectomy: (10) H/O splenectomy: Plan VTE Prophylaxis - deferred pending surgical decision Diet - regular, NPO after midnight Disposition - admit to med/surg Admission and Anticipated Discharge Date Admission Date: March 15, 2022 History of Present Illness Chief Complaint: Sacral ulcers Primary Care Provider: Zenaida Flanagan PA-C Ulysses Guardado is a 61 year old male who presents to the ER due to sacral ulcers after recent discharge from [facility] earlier today. He was admitted to [facility] from March 12 to 2022 due to hypotension and anemia at his outpatient wound care clinic appointment. Both hypotension and anemia resolved without intervention. He did not receive a blood transfusion. However white blood count on admission was 21.4 and he was subsequently diagnosed with a sacral cellulitis overlying his osteomyelitis which occurred while taking intravenous Levaquin for chronic osteomyelitis. He was treated with intravenous vancomycin and cefepime with his white blood count improving to 13. Infectious disease was consulted and recommended 2 weeks of Augmentin and doxycycline on discharge. He has not taking any antibiotics yet as he came to [facility] for second opinion as he has previous poor outcomes [facility]. On previous CT scans he has sacral ulcers present on January 2022 which were not present in November 2021. These are being managed by [facility] wound clinic with a wound VAC although he presents today without a wound VAC. His is concerned that his sacral ulcers have continued to get worse despite following up with wound care in [place]. 03/12/2022 CT abdomen pelvis without contrast Impression: No acute abnormality of the abdomen and pelvis Large amount of stool in the rectum and sigmoid colon Deep decubitus superficial to the left ischial tuberosity and sacrum with CT findings concerning for the extension to bone which would indicate chronic osteomyelitis Deep decubitus ulcer superficial to the right ischial tuberosity without definitive extension to bone Low-lying bilateral ureteral stents with proximal curl believes in the proximal ureters bilaterally Nonobstructing nephrolithiasis in the lower pole left kidney Mild left and moderate right hydronephrosis Allergies Allergy/AdvReac Type Severity Reaction Status Date / Time caffeine AdvReac Intermediate Gastrointestinal Verified 03/15/22 18:23 Upset ibuprofen AdvReac Intermediate GI Bleed Verified 03/15/22 18:23 Home Medications Medication Instructions Recorded Confirmed Type ferrous sulfate 325 mg (65 mg 325 mg PO QAM 01/02/18 03/15/22 History iron) tablet (iron) linaclotide 145 mcg capsule 145 mcg PO QAM 01/02/18 03/15/22 History (Linzess) multivitamin 1 tab PO QAM 01/02/18 03/15/22 History omeprazole 40 mg capsule,delayed 40 mg PO BID 01/02/18 03/15/22 History release oxycodone-acetaminophen 10 mg-325 1 tab PO Q6H PRN Pain 01/02/18 03/15/22 History mg tablet amitriptyline 50 mg tablet 50 mg PO HS 08/08/18 03/15/22 History aspirin 81 mg tablet,delayed 81 mg PO QAM 07/16/19 03/15/22 History release sennosides 8.6 mg tablet (Senokot) 25.8 mg PO Q12 07/16/19 03/15/22 History ascorbic acid (vitamin C) 500 mg 1,000 mg PO BID 03/23/20 03/15/22 History capsule methenamine hippurate 1 gram tablet 1 g PO Q12H #60 tabs 05/26/21 03/15/22 Rx fluoxetine 20 mg capsule 40 mg PO DAILY 11/09/21 03/15/22 History zolpidem 5 mg tablet 5 mg PO HS PRN Sleep 11/09/21 03/15/22 History atorvastatin 40 mg tablet 40 mg PO HS #30 tabs 01/24/22 03/15/22 Rx levofloxacin 500 mg/100 mL in 5 % 500 mg IV Q24H 02/27/22 03/15/22 History dextrose intravenous piggyback psyllium 1 packet PO TID 02/27/22 03/15/22 History gentamicin 0.1 % topical ointment 1 applic topical DAILY 03/15/22 03/15/22 History sodium hypochlorite 0.125 % 1 applic topical DAILY 03/15/22 03/15/22 History solution (Dakin's Solution) Past Med/Surg History Medical History Anemia Beck esophagus Calculus of kidney Chronic back pain Depression Depression Camp catheter in place GERD (gastroesophageal reflux disease) Hyperlipidemia Hypertension Osteoarthritis Osteopenia Paraplegia Thrombocytosis Transient ischemic attack (TIA) Surgical History H/O cystoscopy History of ankle surgery History of back surgery History of cholecystectomy History of colectomy History of colonoscopy History of esophagogastroduodenoscopy (EGD) History of splenectomy History of surgery History of surgery on arm History of tooth extraction S/P debridement (01/17/22) Family History Mother Hypertension Hyperlipidemia Grandfather Myocardial infarction Other No pertinent family history Social History Smoking Status: Former smoker Tobacco Type: Smokeless Tobacco (Dip or Chew) Second Hand Exposure: No; Do You Dip or Chew Tobacco: Yes; Hx Alcohol Use: No Hx Substance Use: No Preferred Language: Serbian Communication Ability: Effective 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: No Beliefs That Will Affect Care: None marital status: Current Living Situation: Spouse Current Living Situation Comment: One level home current occupational status: disabled How many Children do You have: 0 Other Information That Helps Us Care for You: No Feels Safe at Home: Yes Safety Concerns: Feels Safe At This Time Assistive Devices: Wheelchair Review of Systems Review of Systems: All systems reviewed & are unremarkable except as noted in HPI & below Physical Exam Constitutional: well developed; + not well nourished and no acute distress Eyes: + anicteric sclerae; normal pupil size Respiratory: normal respiratory effort, lungs clear to auscultation Cardiovascular: RRR, no murmur, no edema Gastrointestinal (Abdomen): normal bowel sounds, soft, nontender, no hepatosplenomegaly Skin: Two largestage 4 ulcers on back with surrounding erythema from anus to L2 without warmth or swelling Neurologic: awake; + does not move all extremities (paraplegic) and not confused Psychiatric: A+Ox3, euthymic affect Results & Data Results & Data ([facility]) Vital Signs (Past 12 Hours) Vital Signs Temp Pulse Pulse Resp BP BP Pulse Ox 03/15/22 16:43 65 19 154/91 H 99 03/15/22 16:34 95 03/15/22 15:06 36.3 C L 79 16 110/68 100 O2 Del Method 03/15/22 16:43 Room Air 03/15/22 16:34 Room Air 03/15/22 15:06 Room Air Laboratory Results Abnormal lab results 03/15/22 03/15/22 03/15/22 Range/Units 15:50 15:50 15:50 RBC 3.35 L (4.63-6.08) M/uL Hgb 8.7 L (14.0-18.0) g/dl Hct 28.1 L (40.1-51.0) % MCHC 31.0 L (32.0-36.0) g/dL RDW Std Deviation 63.8 H (36.4-46.3) fL RDW Coeff of Jigna 21.0 H (11.5-14.5) % Plt Count 546 H (130-400) K/uL MPV 8.7 L (9.4-12.4) fL Neut # (Auto) 7.24 H (1.4-6.5) K/uL [place] # (Auto) 0.90 H (0.24-0.82) K/uL Immature Gran # (Auto) 0.06 H (0.00-0.02) K/uL ESR 88 H (0-20) mm/hr Sodium 135 L (136-145) mmol/L Chloride 108 H (98-107) mmol/L BUN/Creatinine Ratio 22.7 H (10-20) Calcium 8.1 L (8.5-10.1) mg/dl Alkaline Phosphatase 116 H (34-104) U/L C-Reactive Protein (0-0.5) mg/dl Albumin 2.4 L (3.4-5.0) gm/dl Urine Appearance (Clear) Urine Protein (Negative) Urine Blood (Negative) Ur Leukocyte Esterase (Negative) Urine WBC (Auto) (0-5) /hpf U Epithel Cells (Auto) (0-5) /lpf Urine Yeast (None Prsent) Random Vancomycin (10-20) mcg/ml 03/15/22 03/15/22 03/15/22 Range/Units 15:50 16:35 19:54 RBC (4.63-6.08) M/uL Hgb (14.0-18.0) g/dl Hct (40.1-51.0) % MCHC (32.0-36.0) g/dL RDW Std Deviation (36.4-46.3) fL RDW Coeff of Jigna (11.5-14.5) % Plt Count (130-400) K/uL MPV (9.4-12.4) fL Neut # (Auto) (1.4-6.5) K/uL [place] # (Auto) (0.24-0.82) K/uL Immature Gran # (Auto) (0.00-0.02) K/uL ESR (0-20) mm/hr Sodium (136-145) mmol/L Chloride (98-107) mmol/L BUN/Creatinine Ratio (10-20) Calcium (8.5-10.1) mg/dl Alkaline Phosphatase (34-104) U/L C-Reactive Protein 5.44 H (0-0.5) mg/dl Albumin (3.4-5.0) gm/dl Urine Appearance Turbid A (Clear) Urine Protein 3+ H (Negative) Urine Blood 3+ H (Negative) Ur Leukocyte Esterase 3+ H (Negative) Urine WBC (Auto) >30 H (0-5) /hpf U Epithel Cells (Auto) 20-30 H (0-5) /lpf Urine Yeast Budding w/ Hyphae A (None Prsent) Random Vancomycin 20.9 H (10-20) mcg/ml Diagnostic Findings XR chest 1V portable CLINICAL HISTORY: Sepsis TECHNIQUE: Single frontal radiograph of the chest was obtained. Comparison: Comparison is made to chest radiograph 01/05/2022 FINDINGS: Right humeral hardware is seen. Posterior fixation hardware is noted in the spine. The cardiomediastinal silhouette is normal. The lungs are clear. No evidence of pleural effusion or pneumothorax. IMPRESSION: No acute abnormalities and in particular no evidence of pneumonia. Medications Administered ER medications given: None ECG Rate (beats per minute): 72 Rhythm: normal sinus Findings: + RBBB (incomplete) Comparison ECG Date: from (Jan 05, 2022) Change: the following changes noted (left shift in QRS axis) Code Status & VTE Plan Code Status Full VTE Prophylaxis Plan VTE Prophylaxis will be ordered: Yes PG Care Time/CCT Total # of Minutes Spent Total Time Spent with Patient: Total time spent is greater than 50% in coordination of care (as documented) at patient's floor/unit and/or counseling patient: Coding Level of Care Code 93818 INT INP/OBS CARE 3/75MIN Diagnoses Sacral decubitus ulcer L89.159 Pressure injury stage: unspecified pressure injury stage Osteomyelitis M86.9 Paraplegia G82.20 Depression F32.9 GERD (gastroesophageal reflux disease) K21.9 Esophagitis presence: without esophagitis Hydroureteronephrosis N13.30 History of partial gastrectomy Z90.3 History of partial colectomy Z90.49 History of appendectomy Z90.49 H/O splenectomy Z90.81 (1) Sacral decubitus ulcer Pressure injury stage: unspecified pressure injury stage Qualified Code(s): L89.159 - Pressure ulcer of sacral region, unspecified stage (2) GERD (gastroesophageal reflux disease) Esophagitis presence: without esophagitis Qualified Code(s): K21.9 - Gastro- esophageal reflux disease without esophagitis
[2022-03-15] MEDS ORDERED: oxyCODONE/ACETAMINOPHEN 10-325 TAB PO STA (18:27)
[2022-03-15] MEDS ORDERED: OPTIRAY 350 100ml IV ONE (18:50)
--- NOTE | 2022-03-15 19:19 | CT Scan Report ---
CT abd pelvis IV con only CLINICAL HISTORY: sacral ulcers, possible osteomyelitis TECHNIQUE: Helical axial images of the abdomen and pelvis were obtained and displayed. Automated dose lowering techniques and/or adjustment according to patient size were utilized for this exam. This e xam was performed with intravenous contrast. CT DOSE: 323.69 mGy.cm COMPARISON: Comparison is made to CT abdomen pelvis 01/05/2022 FINDINGS: Lower chest: Bibasilar atelectasis versus scarring is seen. Liver: Unremarkable. No focal lesions are seen. Gallbladder and biliary tree: Patient is status post cholecystectomy. No intra- or extrahepatic bilia ry ductal dilation. Pancreas: Unremarkable, no focal lesions. Spleen: A tiny splenule is seen. The spleen is diminutive. Adrenals: Unremarkable. Kidneys and ureters: Bilateral hydronephrosis is seen with nephroureteral stents in place. A few ston es are seen bilaterally without evidence of obstruction. Bladder: Camp catheter is seen. Reproductive organs: The prostate is not well seen. Bowel: There is a large stool ball with thickening of the rectal wall compatible with stercoral colit is. There is a hiatal hernia and surgical clips are seen about the stomach likely due to gastric bypa ss surgery. Lymph nodes Retroperitoneal: Subcentimeter lymph nodes are noted. Pelvic: Unremarkable. Mesenteric: Unremarkable. Peritoneum: Normal. Vessels: Unremarkable. Abdominal wall: Increased soft tissue stranding is seen in the sacral region with subcutaneous gas. N o definite erosions are seen however there is a bony fragment in the left aspect of the coccyx which may represent a fragment of eroded bone. Bones: Degenerative changes in the visualized spine. IMPRESSION: 1. Interval worsening of sacral decubitus ulcer with likely osteomyelitis of the coccyx. Subcutaneou s emphysema is seen compatible with gas-forming soft tissue infection. No drainable fluid collection is seen. 2. Bilateral hydronephrosis is again seen with bilateral nephroureteral stents. 3. A large stool ball with inspissation and wall thickening is again seen, increased from prior exam , likely representing stercoral colitis. ACT 112: Negative or not required by law. Electronically signed by: Colt Johnson M.D. 03/15/2022 7:16 PM
[2022-03-15] MEDS ORDERED: ACETAMINOPHEN 325 MG TAB PO PRN (20:21)
[2022-03-15] MEDS ORDERED: ZOLPIDEM TARTRATE 5 MG TAB PO PRN (20:21)
--- NOTE | 2022-03-15 20:42 | Communication Note ---
Date of Service: March 15, 2022 Concern for gas-forming soft tissue infection on CT. Clinically this is not necrotizing fascitis and he has been improving over the last three days using vanc/cefepime at [place] given his WBC improved from 21.4 -> 10.43. He is not septic appearing. Discussed with Dr Espana, however I do not feel he needs urgent surgical exam or intervention overnight. Will place on NPO @ midnight for possible surgical debridement tomorrow.
[2022-03-15] MEDS ORDERED: AMITRIPTYLINE HCL 50 MG TAB PO SCH (21:00)
[2022-03-15] MEDS ORDERED: ATORVASTATIN 40 MG TAB PO SCH (21:00)
[2022-03-15] MEDS: PANTOprazole 40 MG TAB PO SCH (21:27)
[2022-03-15] MEDS: SENNA 8.6 MG TAB PO SCH (21:28)
[2022-03-15] MEDS: PSYLLIUM or GUAR GUM FIBER POWDER PACKET PO SCH (21:28)
[2022-03-15] MEDS: ASCORBIC ACID 500 MG TAB PO SCH (21:29)
[2022-03-15] MEDS: METHENAMINE HIPPURATE 1 GM TAB PO SCH (21:30)
--- NOTE | 2022-03-15 21:36 | Pharmacy Report ---
Pharmacy PK ABX Note - Date of Service March 15, 2022 - Assessment and Plan Assessment * 61 year old M started on cefepime and vancomycin at [facility] [employer] and being continued here for treatment of osteomyelitis. Unknown dose [employer] * PMH: pertinent for paraplegia - calcultated CrCL may be greater than actual CrCL. AUC based software initial estimates therefore selected on the lower AUC range side * Random level today of 20.9 mcg/mL - no gap in therapy from transition in care. No loading dose needed. Plan Vancomycin * Maintenance dose: 750 mg IV every 12 hours * Regimen is predicted to achieve target AUC/KONSTANTIN of 400-600 mg/L.hr * Random level ordered for 14 AM Pharmacy will continue to follow and will adjust dose/frequency as necessary. Thank you. Pharmacy has transitioned to AUC monitoring for vancomycin. AUC/KONSTANTIN is the preferred PK/PD target and is associated with decreased risk of nephrotoxicity compared to traditional trough targets.
[2022-03-15] MEDS: VANCOMYCIN HCL 750 MG in SODIUM CHLORIDE 0.9% 250 ML IV SCH (22:23)
[2022-03-15] MEDS: LACTATED RINGER'S 1,000 ML IV SCH (22:46)
[2022-03-16] MEDS: oxyCODONE/ACETAMINOPHEN 10-325 TAB PO PRN ×3 (01:02→17:56)
[2022-03-16] MEDS ORDERED: CEFEPIME 2,000 MG/20 ML VIAL ONE ×2 (03:06→10:02)
[2022-03-16] MEDS: CEFEPIME 2,000 MG in SYRINGE 0 ML IV SCH ×2 (03:14→10:22)
[2022-03-16 04:40] LABS: Creatinine Clr Calc Pharmacy 83.1 ml/min; Est GFR (African American) 108.7 ml/min; Est GFR (Non-African American) 93.8 ml/min
--- NOTE | 2022-03-16 07:10 | Hospitalist Progress Note ---
Date of Service March 16, 2022 Assessment & Plan (1) Sacral decubitus ulcer: Plan: Mainly needs good wound care and will consult wound care nurse here. Previously on wound VAC from [place] wound care that was changed [facility] although unclear why that is not currently in place. Unclear if needs debriding and will consult surgery for opinion. Suspect he had surrounding cellulitis as he developed WBC while on Levaquin with associated hypotension at [place] which improved with cefepime/vancomycin therefore will place him back on this as we know this was successfully treating the overlying infection. Requested previous wound culture from [place] and repeated here Follow up blood cultures (2) Osteomyelitis: Plan: Given prior CT imaging at [place] was without contrast and his is concerned the sacral ulcers are getting worse will repeat CT A/P here with contrast Consult surgery for possible sacral biopsy (3) Paraplegia: Plan: Continue cathether and bowel regimen (4) Depression: Plan: Continue fluoxetine (5) GERD (gastroesophageal reflux disease): Plan: Switch omeprazole for pantoprazole per hospital formulary (6) Hydroureteronephrosis: Plan: Stable. No acute intervention required (7) History of partial gastrectomy: (8) History of partial colectomy: (9) History of appendectomy: (10) H/O splenectomy: Plan VTE Prophylaxis - deferred pending surgical decision Diet - regular, NPO after midnight Disposition - admit to med/surg Admission and Anticipated Discharge Date Admission Date: March 15, 2022 Results & Data Results & Data ([facility]) Vital Signs (Past 12 Hours) Vital Signs Temp Pulse Pulse Resp BP BP Pulse Ox 03/16/22 05:59 68 16 123/78 100 03/16/22 05:30 72 18 141/81 H 100 03/16/22 05:00 69 16 137/88 97 03/16/22 04:30 72 15 121/79 98 03/16/22 04:24 75 17 105/78 99 03/16/22 04:00 74 14 98 03/16/22 03:30 75 16 98 03/16/22 04:15 105/78 03/16/22 03:00 76 19 97 03/16/22 02:30 74 13 97 03/16/22 02:00 82 16 97 03/16/22 01:30 77 18 95 03/16/22 01:00 83 20 98 03/16/22 00:30 85 20 100 03/16/22 00:15 86 17 129/70 97 03/15/22 21:35 36.8 C 80 18 158/91 H 98 03/15/22 20:00 78 18 148/93 H 99 03/15/22 19:14 75 19 148/93 H 95 O2 Del Method 03/16/22 05:59 03/16/22 05:30 03/16/22 05:00 03/16/22 04:30 03/16/22 04:24 03/16/22 04:00 03/16/22 03:30 03/16/22 04:15 03/16/22 03:00 03/16/22 02:30 03/16/22 02:00 03/16/22 01:30 03/16/22 01:00 03/16/22 00:30 03/16/22 00:15 03/15/22 21:35 Room Air 03/15/22 20:00 Room Air 03/15/22 19:14 Room Air (1) Sacral decubitus ulcer Pressure injury stage: unspecified pressure injury stage Qualified Code(s): L89.159 - Pressure ulcer of sacral region, unspecified stage (2) GERD (gastroesophageal reflux disease) Esophagitis presence: without esophagitis Qualified Code(s): K21.9 - Gastro-esophageal reflux disease without esophagitis
[2022-03-16] MEDS ORDERED: LINACLOTIDE 145 MCG CAPSULE PO SCH (09:00)
[2022-03-16] MEDS ORDERED: MULTIVITAMIN TAB PO SCH (09:00)
[2022-03-16] MEDS ORDERED: FERROUS SULFATE 325 MG TAB PO SCH (09:00)
[2022-03-16] MEDS ORDERED: ASPIRIN 81 MG ECTAB PO SCH (09:00)
[2022-03-16] MEDS ORDERED: FLUoxetine HCL 20 MG CAP PO SCH (09:00)
[2022-03-16] MEDS: ASCORBIC ACID 500 MG TAB PO SCH (09:10)
[2022-03-16] MEDS: METHENAMINE HIPPURATE 1 GM TAB PO SCH (09:10)
[2022-03-16] MEDS: PANTOprazole 40 MG TAB PO SCH (09:11)
[2022-03-16] MEDS: SENNA 8.6 MG TAB PO SCH (09:11)
[2022-03-16] MEDS: PSYLLIUM or GUAR GUM FIBER POWDER PACKET PO SCH ×2 (09:11→15:18)
[2022-03-16] MEDS: LACTATED RINGER'S 1,000 ML IV SCH (09:11)
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
--- NOTE | 2022-03-16 10:08 | Med Student Discharge Summary ---
Date of Service March 16, 2022 Admission HPI Per Admitting Provider Ulysses Guardado is a 61 year old male who presents to the ER due to sacral ulcers after recent discharge from [facility] earlier today. He was admitted to [facility] from March 12 to 2022 due to hypotension and anemia at his outpatient wound care clinic appointment. Both hypotension and anemia resolved without intervention. He did not receive a blood transfusion. However white blood count on admission was 21.4 and he was subsequently diagnosed with a sacral cellulitis overlying his osteomyelitis which occurred while taking intravenous Levaquin for chronic osteomyelitis. He was treated with intravenous vancomycin and cefepime with his white blood count improving to 13. Infectious disease was consulted and recommended 2 weeks of Augmentin and doxycycline on discharge. He has not taking any antibiotics yet as he came to [facility] for second opinion as he has previous poor outcomes [facility]. On previous CT scans he has sacral ulcers present on January 2022 which were not present in November 2021. These are being managed by [facility] wound clinic with a wound VAC although he presents today without a wound VAC. His is concerned that his sacral ulcers have continued to get worse despite following up with wound care in [place]. 03/12/2022 CT abdomen pelvis without contrast Impression: No acute abnormality of the abdomen and pelvis Large amount of stool in the rectum and sigmoid colon Deep decubitus superficial to the left ischial tuberosity and sacrum with CT findings concerning for the extension to bone which would indicate chronic osteomyelitis Deep decubitus ulcer superficial to the right ischial tuberosity without definitive extension to bone Low-lying bilateral ureteral stents with proximal curl believes in the proximal ureters bilaterally Nonobstructing nephrolithiasis in the lower pole left kidney Mild left and moderate right hydronephrosis Admission Exam (Per Admitting) Constitutional no acute distress Respiratory normal respiratory effort, lungs clear to auscultation Cardiovascular RRR, no murmur, no edema Gastrointestinal (Abdomen) normal bowel sounds, soft, nontender, no hepatosplenomegaly Psychiatric Affect: euthymic affect Discharge Exam Constitutional no acute distress Respiratory normal respiratory effort, lungs clear to auscultation Expiratory rhonchi noted on right lower lobe. Breath sounds normal in other lobes. No use of accessory respiratory muscles. Cardiovascular RRR, no murmur, no edema Gastrointestinal (Abdomen) normal bowel sounds, soft, nontender, no hepatosplenomegaly Skin No ulcers evident in lower extremities bilaterally Erythematous left buttock ulcer with irregular borders, erythema around wound with indistinct borders Erythematous sacral ulcer with irregular borders, erythema around wound with indistinct borders Neurologic Paraplegic Psychiatric Affect: euthymic affect Discharge Data Consultations 03/15/22 17:31 ED Decision to Admit Stat 03/15/22 20:21 Consult General Surgery Routine HIM [Consult Health Information Management] Routine HIM [Consult Health Information Management] Routine Hospital Course (1) Sacral decubitus ulcer: Previously on wound VAC from [place] wound care that was changed MWF. Not currently in place. Developed leukocytosis while on chronic Levaquin with associated hypotension at [place] which improved with cefepime/vancomycin started on 03/12 Previous wound culture from [place] grew staph coagulase negative enterococcus species x2, gram negative bacillus, [place] infectious disease consultation via Dr. Malcolm suggested transitioning to augmentin and docycylcine PO for 14 days including inpatient course upn discharge. Wound culture repeated here and pending. Blood cultures pending. Repeat CT imaging showed evidence concerning for possible osteomyelitis of the coccyx with subcutaneous emphysema concerning for necrotizing fasciitis. Upon consultation with surgery for debridement opinion, they indicated that it is less likely to be osteomyelitis or necrotizing fasciitis with it most likely being a sacral pressure ulcer complicated by cellulitis. Surgery recommended wound care and continued antibiotic regimen. Wound care provided prior to discharge with follow up wound VAC from [place] wound care scheduled. Transition to 875 mg augmentin twice per day and 100 mg doxycycline twice per day for 11 days (2) Osteomyelitis: Prior CT imaging at [place] was without contrast and repeat CT A/P here with contrast showed some concern for soft tissue infection spreading to sacrum/coccyx but no clear evidence of osteomyelitis Per surgery recomendations, sacral biopsy and/or debridement is not indicated at this time (3) Paraplegia: Continue home cathetherization and bowel regimen (4) Depression: Continue fluoxetine (5) GERD (gastroesophageal reflux disease): Switch back to outpatient omeprazole (6) Hydroureteronephrosis: Stable. No acute intervention required (7) History of partial gastrectomy: (8) History of partial colectomy: (9) History of appendectomy: (10) H/O splenectomy: Discharge Plan Discharge Items Patient Disposition: Home - Self-Care Reason For Visit: SACRAL ULCERS, OSTEOMYELITIS Discharge Diagnosis: Sacral ulcers with cellulitis Activity: Resume your previous activity Non-emergency contact: Primary Care Provider Call non-emergency contact if: you have any medication questions, your pain is concerning for you, your temperature is above 101.5, your wound has increased redness, your wound has increased drainage and your wound pain has increased Follow-up/Referrals: Zenaida Flanagan PA-C [Primary Care Provider] - Diet: Regular Addtl Attending Provider Instructions: You were admitted to the hospital for cellulites and chronic wounds. You were treated with antibiotics and should continue to take antibiotics at home. A discharge summary will be sent to your primary care physician to ensure continuity of care. Please bring this discharge summary with you to your next office appointment so that your provider can review it at that time. Follow-up appointments: * Make a follow-up appointment with your PCP within the next week. It is very important that you follow up with them shortly after discharge from the hospital. * We have requested a follow-up appointment with the wound clinic within one week of discharge. Please call their office if you not hear from them. * Keep all your follow-up appointments as already scheduled. If you cannot make an appointment, notify your provider. Medications: Your medication list has been reviewed and reconciled upon discharge to ensure accuracy and continuity of care. An updated list of all your medications is included with your hospital discharge paperwork. Please review this list closely, and make note of any changes. * We sent a new medication called Augmentin to your pharmacy. Take Augmentin (875/125) mg 1 tab twice a day for 11 days. * We sent a new medication called Doxycycline to your pharmacy. Take Doxycycline (100mg) 1 tab twice a day for 11 days. * If you have any issues filling these prescriptions, please call [phone] and ask to leave a message for Dr. Montilla. * Take your medications as instructed; do not skip a dose of your medicines. Make sure all of your doctors know every medicine you are taking (including dimy-grc-mogwpgb medicines, vitamins, and supplements). Call your primary care provider before taking any new medicines (including over- the-counter medicines, vitamins, and supplements), because some of these may interact with your current medications, or may make your symptoms worse. Tell your primary care provider if you cannot afford your medications. CONTACT YOUR PRIMARY CARE PROVIDER if you experience any of the following: * Worsening of symptoms * Fever, chills, or fatigue * Difficulty following your treatment plan, or difficulty taking medications CALL 911 OR GO TO THE EMERGENCY DEPARTMENT if you experience any of the following: * Sudden, severe abdominal pain or nausea/vomiting * Severe chest pain, or chest pain that radiates (moves) to your jaw or arm * Sudden, severe shortness of breath or difficulty breathing Thank you for allowing us to participate in your care. Pending Studies at Discharge: No Stand-Alone Forms: My [facility], Smoking Cessation Medications and DC Order Prescriptions: New amoxicillin-pot clavulanate 875-125 mg tablet 1 tab PO BID 11 Days Qty: 22 0RF doxycycline hyclate 100 mg capsule 100 mg PO BID 11 Days Qty: 22 0RF Continued methenamine hippurate 1 gram tablet 1 g PO Q12H Qty: 60 6RF ascorbic acid (vitamin C) 500 mg capsule 1,000 mg PO BID psyllium Packet 1 packet PO TID Rx Instructions: mix into at least 8 oz of water or juice before administering multivitamin Tablet 1 tab PO QAM omeprazole 40 mg Capsule,Delayed Release(Dr/Ec) 40 mg PO BID oxycodone-acetaminophen 10-325 mg Tablet 1 tab PO Q6H PRN (Reason: Pain) ferrous sulfate [iron] 325 mg (65 mg iron) Tablet 325 mg PO QAM Linzess 145 mcg Capsule 145 mcg PO QAM sennosides [Senokot] 8.6 mg Tablet 25.8 mg PO Q12 Rx Instructions: 3 tablet dose aspirin 81 mg Tablet,Delayed Release (Dr/Ec) 81 mg PO QAM amitriptyline 50 mg Tablet 50 mg PO HS Rx Instructions: Takes at Midnight zolpidem 5 mg tablet 5 mg PO HS PRN (Reason: Sleep) fluoxetine 20 mg capsule 40 mg PO DAILY atorvastatin 40 mg Tablet 40 mg PO HS Qty: 30 0RF gentamicin 0.1 % ointment 1 applic TOPICAL DAILY Rx Instructions: apply to legs Dakin's Solution 0.125 % solution 1 applic topical DAILY Rx Instructions: apply to guaze and pack wound daily Discontinued levofloxacin in D5W 500 mg/100 mL piggyback 500 mg IV Q24H Discharge Orders: Discharge Order (Routine); Ordered 03/16/22 Ordered By: Luther Montilla Admission Data Admit Date/Time: 03/15/22 18:00 Attending Provider: Katie Pierce Admit Provider: Randell Trevino Primary Care Provider: Zenaida Flanagan Other Providers: Randell Trevino ; Edison Espana Supervising Attestation Medical Student Supervision Note: I was attended medical student patient encounter and independently interviewed and examined the patient and verified the pleitez history and physical, reviewed labs and image studies, discussed the case with Geronimo Reeves and agree with the findings and care plan. Denied any new concerns comfortable in bed. heart - regular, no respiratory distress Sacral ulcer - already being managed outpatient with oral antibiotics. Findings of CT done in ED not concerning per exam and surgical evaluation. Wound care evaluation done as well. Discharged home to continue with oral antibiotics as prescribed and follow up with local wound clinic in [place].
[2022-03-16] MEDS: VANCOMYCIN HCL 750 MG in SODIUM CHLORIDE 0.9% 250 ML IV SCH (10:22)
--- NOTE | 2022-03-16 10:37 | Med Student Discharge Summary ---
Date of Service March 16, 2022 Admission HPI Per Admitting Provider Ulysses Guardado is a 61 year old male who presents to the ER due to sacral ulcers after recent discharge from [facility] earlier today. He was admitted to [facility] from March 12 to 2022 due to hypotension and anemia at his outpatient wound care clinic appointment. Both hypotension and anemia resolved without intervention. He did not receive a blood transfusion. However white blood count on admission was 21.4 and he was subsequently diagnosed with a sacral cellulitis overlying his osteomyelitis which occurred while taking intravenous Levaquin for chronic osteomyelitis. He was treated with intravenous vancomycin and cefepime with his white blood count improving to 13. Infectious disease was consulted and recommended 2 weeks of Augmentin and doxycycline on discharge. He has not taking any antibiotics yet as he came to [facility] for second opinion as he has previous poor outcomes [facility]. On previous CT scans he has sacral ulcers present on January 2022 which were not present in November 2021. These are being managed by [facility] wound clinic with a wound VAC although he presents today without a wound VAC. His is concerned that his sacral ulcers have continued to get worse despite following up with wound care in [place]. 03/12/2022 CT abdomen pelvis without contrast Impression: No acute abnormality of the abdomen and pelvis Large amount of stool in the rectum and sigmoid colon Deep decubitus superficial to the left ischial tuberosity and sacrum with CT findings concerning for the extension to bone which would indicate chronic osteomyelitis Deep decubitus ulcer superficial to the right ischial tuberosity without definitive extension to bone Low-lying bilateral ureteral stents with proximal curl believes in the proximal ureters bilaterally Nonobstructing nephrolithiasis in the lower pole left kidney Mild left and moderate right hydronephrosis Discharge Data Consultations 03/15/22 17:31 ED Decision to Admit Stat 03/15/22 20:21 Consult General Surgery Routine HIM [Consult Health Information Management] Routine HIM [Consult Health Information Management] Routine Discharge Plan Discharge Items Reason For Visit: SACRAL ULCERS, OSTEOMYELITIS Follow-up/Referrals: Zenaida Flanagan PA-C [Primary Care Provider] - Medications and DC Order Prescriptions: No Action methenamine hippurate 1 gram tablet 1 g PO Q12H Qty: 60 6RF ascorbic acid (vitamin C) 500 mg capsule 1,000 mg PO BID psyllium Packet 1 packet PO TID Rx Instructions: mix into at least 8 oz of water or juice before administering levofloxacin in D5W 500 mg/100 mL piggyback 500 mg IV Q24H multivitamin Tablet 1 tab PO QAM omeprazole 40 mg Capsule,Delayed Release(Dr/Ec) 40 mg PO BID oxycodone-acetaminophen 10-325 mg Tablet 1 tab PO Q6H PRN (Reason: Pain) ferrous sulfate [iron] 325 mg (65 mg iron) Tablet 325 mg PO QAM Linzess 145 mcg Capsule 145 mcg PO QAM sennosides [Senokot] 8.6 mg Tablet 25.8 mg PO Q12 Rx Instructions: 3 tablet dose aspirin 81 mg Tablet,Delayed Release (Dr/Ec) 81 mg PO QAM amitriptyline 50 mg Tablet 50 mg PO HS Rx Instructions: Takes at Midnight zolpidem 5 mg tablet 5 mg PO HS PRN (Reason: Sleep) fluoxetine 20 mg capsule 40 mg PO DAILY atorvastatin 40 mg Tablet 40 mg PO HS Qty: 30 0RF gentamicin 0.1 % ointment 1 applic TOPICAL DAILY Rx Instructions: apply to legs Dakin's Solution 0.125 % solution 1 applic topical DAILY Rx Instructions: apply to guaze and pack wound daily Admission Data Admit Date/Time: 03/15/22 18:00 Attending Provider: Katie Pierce Admit Provider: Randell Trevino Primary Care Provider: Zenaida Flanagan Other Providers: Randell Trevino ; Edison Espana
--- NOTE | 2022-03-16 13:42 | Electrocardiogram Report ---
Test Reason : Blood Pressure : / mmHG Vent. Rate : 072 BPM Atrial Rate : 072 BPM P-R Int : 166 ms QRS Dur : 108 ms QT Int : 392 ms P-R-T Axes : 063 -27 071 degrees QTc Int : 429 ms Normal sinus rhythm Incomplete right bundle branch block Borderline ECG When compared with ECG of 05-JAN-2022 12:40, QRS axis Shifted left Confirmed by Hilario Marvin ([id number]) on 03/16/2022 1:41:43 PM Referred By: REFERRED SELF Confirmed By:Hilario Marvin
[2022-03-17] MEDS ORDERED: VANCOMYCIN LEVEL ONE (09:30)
== END 2022-03-16 18:50 | disposition home or self-care (01) | DRG 540 ==
LOC: ED 15:05 → SUATTDRO 18:00 → EDINP 18:00

== ENCOUNTER 2023-08-09 16:39 | Inpatient (IN) ==
--- NOTE | 2023-08-09 16:46 | ED Triage Note ---
Date of Service August 09, 2023 Provider in Triage Author: Denver Lockhart History of Present Illness This patient was briefly evaluated while in triage. An abbreviated physical exam was performed. This patient is a 63-year-old Male who presents to the ED for evaluation parapelegia, indwelling Camp, asplenia, HTN, lipids, depression recently admitted at [facility] 1 week ago - "elevated ammonia" SO signed him out AMA today weakness, lethargic, confusion Physical Exam GENERAL: pale, slurred speech in a wheelchair, hypotensive, afebrile CARDIOVASCULAR: RRR RESPIRATORY: CTA ABDOMEN: BS x 4. Nontender to palpation. Initial orders for labs and / or imaging were placed and patient was placed in the waiting area until a bed is available. Please see further documentation for the full ED course.
--- NOTE | 2023-08-09 17:32 | XRay Report ---
XR chest 1V portable HISTORY: Sepsis COMPARISON: Chest 07/08/2022. FINDINGS: No pneumothorax. No pleural effusions. The heart is normal in size. No focal lung consolida tions to suggest a pneumonia. No evidence for pulmonary edema. Degenerative changes within the should ers again noted. Thoracic spinal rods are intact. Epigastric suture material, unchanged. IMPRESSION: No significant change compared to the prior study. No acute process. ACT 112: Negative or not required by law. Electronically signed by: Adrian Martinez M.D. 08/09/2023 5:31 PM
[2023-08-09 17:46] LABS: Basophils % (auto) 1.4 %; Eosinophils # (auto) 0.04 K/uL (0.00-0.50); Eosinophils % (auto) 0.3 %; Hematocrit (blood only) 31.9 % (42.0-52.0); Hemoglobin 10.3 g/dl (14.0-18.0); Immature Granulocytes # (auto) 0.08 K/uL (0.01-0.20); Immature Granulocytes % (auto) 0.6 %; Lymphocytes # (auto) 1.25 K/uL (1.20-3.40); Lymphocytes % (auto) 8.7 %; Mean Corpuscular Hemoglobin 30.2 pg (25.0-34.0); Mean Corpuscular Hgb Conc 32.3 g/dL (32.0-36.0); Mean Corpuscular Volume 93.5 fL (80.0-100.0); Mean Platelet Volume 10.1 fL (9.4-12.4); Monocytes # (auto) 0.63 K/uL (0.11-0.59); Monocytes % (auto) 4.4 %; Neutrophils # (auto) 12.12 K/uL (1.40-6.50); Neutrophils % (auto) 84.6 %; Platelet Count 517 K/uL (130-400); RDW Coefficient of Variation 23.5 % (11.5-14.5); Red Blood Count 3.41 M/uL (4.70-6.10); White Blood Count 14.32 K/ul (4.8-10.8)
[2023-08-09 17:58] LABS: Alanine Aminotransferase 55 U/L (7-52); Albumin Level 2.1 gm/dl (3.4-5.0); Alkaline Phosphatase 156 U/L (34-104); Anion Gap 6 (3-11); Aspartate Aminotransferase 55 U/L (13-39); BUN Creatinine Ratio 28.8 (10-20); Bilirubin Direct 0.1 mg/dl (0-0.2); Bilirubin,Total 0.3 mg/dl (0.2-1.0); Blood Urea Nitrogen 17 mg/dl (6-23); Calcium 7.4 mg/dl (8.6-10.3); Carbon Dioxide 23 mmol/L (21-32); Chloride 107 mmol/L (98-107); Est GFR (African American) 125.8 ml/min; Est GFR (Non-African American) 108.5 ml/min; Glucose 97 mg/dl (70-99(Fasting)); Magnesium 1.9 mg/dl (1.7-2.4); Potassium 4.6 mmol/L (3.5-5.1); Sodium 136 mmol/L (136-145); Total Protein 6.2 gm/dl (6.0-8.3)
[2023-08-09 18:03] LABS: Troponin I High Sensitivity 22.1 pg/ml (0-20)
[2023-08-09 18:05] LABS: INR 1.1 (0.9-1.1); Partial Thromboplastin Ratio 1.5; Partial Thromboplastin Time 40 Seconds (21-31); Prothrombin Time 11.8 Seconds (9.0-12.0)
[2023-08-09 18:06] LABS: Anisocytosis Present; Echinocytes 1+; Pappenheimer Bodies 1+; Target Cells 1+
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
[2023-08-09] MEDS: OPTIRAY 320 100ml IV ONE (18:27)
--- NOTE | 2023-08-09 18:34 | CT Scan Report ---
HEAD CT NONCONTRAST CT DOSE: HISTORY: Altered mental status. TECHNIQUE: Multiaxial CT images of the head were performed without the use of intravenous contrast. A utomated exposure control was utilized for this study. A dose lowering technique was utilized adheri ng to the principles of ALARA. Comparison: Head CT 01/05/2022. Findings: The paranasal sinuses and mastoid air cells are clear. The calvarium and skull base are int act. There is no mass, hematoma, midline shift, acute infarct. White matter hypodensity is nonspecifi c but suggestive of microvascular ischemic change. The ventricles and sulci demonstrate mild age-rela gwyn involutional changes. Stable 8 mm calcified nodule adjacent to the left anterior clinoid. This ma y represent a calcified meningioma. This is of doubtful clinical significance. Impression: No significant change compared to the prior study. No acute intracranial abnormality. ACT 112: Negative or not required by law. Electronically signed by: Adrian Martinez M.D. 08/09/2023 6:33 PM
--- NOTE | 2023-08-09 18:51 | CT Scan Report ---
ABDOMEN AND PELVIS CT WITH IV CONTRAST CT DOSE: 1412.47 mGy.cm HISTORY: Transaminitis, altered mental status TECHNIQUE: Multiaxial CT images of the abdomen and pelvis were performed following the use of intrave nous contrast. A dose lowering technique was utilized adhering to the principles of ALARA. COMPARISON STUDY: Abdomen and pelvis CT 03/15/2022. FINDINGS: Partial opacification of the distal lower lobe bronchi. Consolidation within the right lowe r lobe posteriorly with tree-in-bud nodular opacities within the lung bases. This likely represents a n aspiration pneumonitis. No pneumoperitoneum. No pneumatosis. Bilateral sacral decubitus ulcers agai n noted with mild erosion of the bilateral ischial tuberosities and partial erosion of the coccyx. Th is is similar to the prior study and may represent an acute on chronic osteomyelitis. No acute fractu res identified. There are partially visualized thoracic spinal rods. There is a moderate hiatus herni a. Surgical clips within the stomach consistent with a prior distal gastrectomy. This remains unchang ed. Prior cholecystectomy. The main portal vein is patent. The liver, pancreas, and adrenal glands ar e unremarkable. The spleen remains atrophic possibly representing splenosis. Normal caliber abdominal aorta. Subcentimeter retroperitoneal lymph nodes remain stable. No pelvic lymphadenopathy. Moderate body wall edema. Diffuse muscular atrophy again noted. Moderate bilateral cortical thinning/scarring again noted. Moderate bilateral hydroureteronephrosis, unchanged. There is a large stone within the l eft kidney. There is also a 13 mm nonobstructing stone within the right renal pelvis. There is an add itional punctate stone within the lower pole of the right kidney. Gas within the bilateral renal ksenia ecting systems likely due to the ureteral stents and Camp catheter within the bladder lumen. There i s also a small amount of gas within the bladder lumen. The bilateral ureteral stents appear in good p osition. No ureteral calculi identified. The bladder is decompressed. Bladder wall thickening again n oted. There is urothelial thickening within the bilateral renal collecting systems and ureters with m ild bilateral periureteral edema/fat stranding. This has progressed in the interval. This could repre sent chronic irritation from ureteral stents. However, an infectious pyelitis is also considered in t he differential diagnosis given the progression. Large stool ball within the distal sigmoid colon and rectum. This is similar to the prior study. The stool ball measures approximately 10 cm. This disten ds the rectum. Proximal to this the colon is distended and fluid-filled which has progressed. This collins ggests a distal large bowel obstruction due to the fecal impaction. Moderate well-formed stool also s een scattered throughout the colon. There are few dilated loops of small bowel within the right side the abdomen. Mild thickening of the distal sigmoid colon and rectum for the degree of distention. Thi s raises the possibility of a stercoral colitis. This is similar to the prior study. IMPRESSION: 1. Large stool ball within the distal sigmoid colon and rectum. This is similar to the prior study. P roximal to this the colon is distended and fluid-filled which has progressed. This suggests a distal large bowel obstruction due to the fecal impaction. 2. Mild thickening of the distal sigmoid colon and rectum for the degree of distention. This raises t he possibility of a stercoral colitis. This is similar to the prior study. 3. Moderate bilateral hydroureteronephrosis, unchanged. The ureteral stents and Camp catheter appear in good position. 4. Bilateral nephrolithiasis. No ureteral calculi. 5. There is urothelial thickening within the bilateral renal collecting systems and ureters with mild bilateral periureteral edema/fat stranding. This has progressed in the interval. This could represen t chronic irritation from ureteral stents. However, an infectious pyelitis is also considered in the differential diagnosis given the progression. 6. Partial opacification of the distal lower lobe bronchi. Consolidation within the right lower lobe posteriorly with tree-in-bud nodular opacities within the lung bases. This likely represents an aspir ation pneumonitis. 7. Bilateral sacral decubitus ulcers again noted with mild erosion of the bilateral ischial tuberosit ies and partial erosion of the coccyx. This is similar to the prior study and may represent an acute on chronic osteomyelitis. 8. Additional findings as described above. ACT 112: Negative or not required by law. Electronically signed by: Adrian Martinez M.D. 08/09/2023 6:49 PM
[2023-08-09] MEDS ORDERED: VANCOMYCIN CONSULT ACTIVE PRN ×2 (19:03→20:58)
[2023-08-09] MEDS: CEFEPIME 2,000 MG/20 ML VIAL IV STA (19:05)
[2023-08-09] MEDS: SODIUM CHLORIDE 0.9% 500 ML IV ONE (19:05)
[2023-08-09] MEDS: SODIUM CHLORIDE 0.9% 1,000 ML IV SCH (19:05)
[2023-08-09] MEDS: SODIUM CHLORIDE 0.9% 1,000 ML IV ONE (19:20)
[2023-08-09] MEDS: SOD PHOSPHATE/SOD BIPHOSPHATE ENEMA 132 ML BTL PR STA (19:34)
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
[2023-08-09 20:21] LABS: Appearance Urine Turbid (Clear); Bacteria Urine Automated 4+ (None Seen); Bilirubin Urine Negative (Negative); Blood Urine 3+ (Negative); Cast Urine Automated >20 /lpf (0-2); Color Urine Yellow; Glucose Urine UA Negative (Negative); Ketones Urine Negative (Negative); Leukocyte Esterase Urine 3+ (Negative); Nitrite Urine Negative (Negative); Protein Urine 1+ (Negative); RBC Urine Automated >20 /hpf (0-2); Specific Gravity Urine 1.032 (1.000-1.030); Urobilinogen Urine Negative (Negative); WBC Urine Automated >50 /hpf (0-5); pH Urine 7.5 (4.5-7.5)
[2023-08-09 20:33] LABS: Troponin I High Sensitivity 19.8 pg/ml (0-20)
[2023-08-09] MEDS: VANCOMYCIN HCL 1,250 MG in SODIUM CHLORIDE 0.9% 500 ML IV ONE (20:37)
[2023-08-09] MEDS ORDERED: VANCOMYCIN HCL 1,000 MG in SODIUM CHLORIDE 0.9% 250 ML IV SCH (20:58)
[2023-08-09] MEDS: MoRPHine SULFATE 2 MG/ML CARP IV STA (22:21)
[2023-08-09] MEDS: bisacodyL 10 MG SUPP PR STA (22:21)
[2023-08-09] MEDS: ACETAMINOPHEN 1,000 MG/100 ML VIAL IV STA (22:21)
[2023-08-09] MEDS: POLYETHYLENE (MIRALAX) 17 GM PACK PO STA (22:21)
[2023-08-09] MEDS: metroNIDAZOLE 500 MG/100 ML BAG IV SCH (22:28)
[2023-08-09 22:56] LABS: C Reactive Protein 8.47 mg/dl (0-0.5)
[2023-08-09] MEDS: LACTATED RINGER'S 1,000 ML IV SCH (23:22)
[2023-08-09] MEDS: AMITRIPTYLINE HCL 50 MG TAB PO SCH (23:49)
[2023-08-09] MEDS: PANTOprazole 40 MG TAB PO SCH (23:49)
[2023-08-09] MEDS: LACTULOSE SYRUP 30 GM/45 ML UDP PO SCH (23:50)
[2023-08-10 04:14] LABS: Hematocrit (blood only) 26.5 % (42.0-52.0); Hemoglobin 8.8 g/dl (14.0-18.0); Mean Corpuscular Hemoglobin 30.1 pg (25.0-34.0); Mean Corpuscular Hgb Conc 33.2 g/dL (32.0-36.0); Mean Corpuscular Volume 90.8 fL (80.0-100.0); Mean Platelet Volume 9.6 fL (9.4-12.4); Platelet Count 442 K/uL (130-400); RDW Coefficient of Variation 22.6 % (11.5-14.5); RDW Standard Deviation 73.6 fL (36.4-46.3); Red Blood Count 2.92 M/uL (4.70-6.10); White Blood Count 12.45 K/ul (4.8-10.8)
[2023-08-10] MEDS: CEFEPIME 2,000 MG in SYRINGE 0 ML IV SCH (04:56)
[2023-08-10 04:59] LABS: Albumin Level 1.7 gm/dl (3.4-5.0); BUN Creatinine Ratio 29.1 (10-20); Bilirubin Direct 0.2 mg/dl (0-0.2); Bilirubin,Total 0.3 mg/dl (0.2-1.0); Calcium 6.9 mg/dl (8.6-10.3); Creatinine Clr Calc Pharmacy 127.8 ml/min; Est GFR (African American) 129.4 ml/min; Est GFR (Non-African American) 111.7 ml/min; Potassium 3.1 mmol/L (3.5-5.1); Total Protein 4.6 gm/dl (6.0-8.3)
[2023-08-10] MEDS: VANCOMYCIN HCL 1,000 MG in SODIUM CHLORIDE 0.9% 250 ML IV SCH (05:58)
[2023-08-10] MEDS: oxyCODONE HCL IR 5 MG TAB (IMMEDIATE RELEASE) PO PRN (06:12)
[2023-08-10] MEDS: POTASSIUM CHLORIDE CRTAB 20 MEQ TABCR PO STA (07:01)
[2023-08-10] MEDS: MAGNESIUM SULFATE / D5W 1 GM/100 ML BAG IV ONE (07:05)
--- NOTE | 2023-08-10 07:08 | Electrocardiogram Report ---
Test Reason : Blood Pressure : / mmHG Vent. Rate : 093 BPM Atrial Rate : 093 BPM P-R Int : 148 ms QRS Dur : 106 ms QT Int : 354 ms P-R-T Axes : 060 -23 058 degrees QTc Int : 440 ms Sinus rhythm Incomplete right bundle branch block Borderline ECG When compared with ECG of 18-JUL-2022 09:41, Fusion complexes are now Present QRS voltage has decreased Borderline criteria for Inferior infarct are no longer Present T wave amplitude has decreased in Inferior leads Nonspecific T wave abnormality now evident in Anterior leads Confirmed by Martin Franco ([id number] on 08/10/2023 7:07:45 AM Referred By: REFERRED SELF Confirmed By:Dhaval Franco
[2023-08-10] MEDS ORDERED: PANTOprazole 40 MG TAB PO SCH (09:00)
[2023-08-10] MEDS ORDERED: bisacodyL 10 MG SUPP PR PRN (09:00)
[2023-08-10] MEDS ORDERED: LINACLOTIDE 145 MCG CAPSULE PO SCH (09:00)
[2023-08-10] MEDS: ASPIRIN 81 MG ECTAB PO SCH (09:51)
[2023-08-10] MEDS: FLUoxetine HCL 20 MG CAP PO SCH (09:51)
[2023-08-10] MEDS: POLYETHYLENE (MIRALAX) 17 GM PACK PO SCH (10:00)
[2023-08-10] MEDS: NICOTINE 7 MG/24 HR TDSY TD SCH (10:24)
[2023-08-10] MEDS: MINERAL OIL ENEMA 133 ML BTL PR SCH (10:24)
--- NOTE | 2023-08-10 12:52 | Hospitalist Progress Note ---
Date of Service August 10, 2023 Assessment & Plan (1) Sepsis: Plan: Acute sepsis syndrome with associated hypoxic respiratory failure and hypotension - Admit to medical with telemetry - Blood Cx x2 and urine Cx collected, pending at this time - Maintain aspiration precautions - Empiric antibiotic coverage with Vancomycin, Cefepime and Flagyl - Continue IVF - LR at 80mL/hr x 2L ordered - Tylenol as needed for pain or fever (2) Abnormal urinalysis: Plan: Acute/unstable with possible source of sepsis - Urine culture is pending - History of bilateral hydronephrosis s/p stenting and gets stents exchanged q3 months - Last change noted in our system was in February of 2023 - Given grossly abnormal UA which appears infected, will consult to determine if stents need exchanged (3) Right lower lobe consolidation: Plan: Acute/unstable with associated acute hypoxic respiratory respiratory failure - Could be contributing source of sepsis - Continue supplemental O2 to maintain sat >90% - Continue empiric Cefepime, Flagyl, and Vancomycin to cover for HAP and possible aspiration - Consult [employer] eval and treat to determine if a swallowing study is warranted - Duonebs QIDR and q2 prn and add Mucinex 600mg BID (4) Fecal impaction: Plan: Acute/stable Patient with fecal impaction causing LBO. Fleet enema given in the ER x1 and manual disimpaction attempted by ER attending but unable to appreciate stool ball. -IVF and electrolyte repletion - Dulcolax HI given x1 on admit and ordered daily, Miralax 17mg po daily, Senna 17.2mg po qHS prn, and daily mineral oil enemas - Lazarus held d/t concern for LBO - Covered with empiric antibiotics for possible stercoral colitis - Zofran PRN - Had large BM just prior to rounds today and during my assessment, was soiled with soft stool (5) Right ischial pressure sore: Plan: Patient with significant skin breakdown. He has followed with the wound clinic in the past. He does have a WoundVac at home should one be indicated - Wound care nurse consult placed, appreciated assistance - Will place in specialty bed - Offload heels - Turn and position q 2 hours - Dressing placed on wounds Per discharge paperwork from [place] - Left Ischium: Recommended to irrigate the wound with 20mL NSS then wipe with dry gauze. Skin prep the periwound, cut Exufiber Ag+ to fit the size of the wound. Pad with dry gauze and secure the tape daily. Right Scapula wound: pad and protect with Allevyn life every other day Left Ischium/sacral/right posterior hip - cleanse area with mild soap and water. Pat dry. Apply Calmoseptine ointment every 8 hours as needed. Reposition q 2 hours as needed. Heels off bed. Apply moisturizing cream to bilateral feet daily. (6) Hypokalemia: Plan: Acute/stable - K+ 3.1, treated with KCl 60 meq po x1, trend on AM labs Plan GERD with history of Barretts esophagus - chronic. stable -Continue Protonix 40mg po BID Hepatic encephalopathy - liver labs seem somewhat stable, ammonia is WNL -Continue home lactulose 30gm po BID Depression - chronic. stable -Continue Fluoxetine Labs reviewed and case d/w Dr. Hurtado who is in agreement with above plan. Time spent on this encounter including extensive review of med reconciliation, chart review including labs, imaging, ER documentation and admission records, entering orders and face to face included 52 minutes. Admission and Anticipated Discharge Date Admission Date: August 09, 2023 Subjective Ulysses is a 63 yo M who was seen on rounds this morning. He remains a bed hold in the ER awaiting a bed assignment upstairs. He was admitted yesterday evening with acute sepsis syndrome with multiple possible sources including RLL pna, UTI and possible stercoral colitis with LBO. He is currently awake and answers some questions but is still drowsy. He denies complaints of pain, shortness of breath or chest pain. He currently has a low grade temp of 37.3C. HR and BP are stable at present. Received an enema this AM and had a large BM just prior to my arrival. Review of Systems 2 Review of Systems: All systems reviewed and are unremarkable except as noted in HPI and below. Denies fever, chills, fatigue, headache, nasal congestion, sore throat, cough, chest pain, shortness of breath, palpitations, orthopnea, PND, abdominal pain, n/v/d, constipation, dysuria, hematuria, frequency, back pain, joint pain or swelling, easy bruising or bleeding, skin lesions or rashes. Physical Exam 2 Physical Exam: GENERAL: 63 yo thin frail chronically ill appearing WM. NAD. LUNGS: Nonlabored with crackles auscultated throughout bl. CARDIOVASCULAR: S1 S2 ABDOMEN: Soft, moderately distended. BS present in all 4 quad. EXTREMITIES: +3 b/l LE pitting edema. Peripheral pulses +2/4. NEUROLOGIC: A&O x3. PSYCHIATRIC: Cooperative. Appropriate mood and affect. SKIN: large right ischium open wound with moderate slough noted at wound base, no active bleeding, drainage or foul odor. Left hip with ~stage III break down noted. Results & Data Results & Data Vital Signs (Past 12 Hours) Vital Signs Temp Pulse Pulse Resp BP BP Pulse Ox 08/10/23 10:25 08/10/23 10:15 37.3 C 08/10/23 10:03 92 H 21 103/74 94 08/10/23 09:03 95 H 22 92 08/10/23 08:06 96 H 24 92 08/10/23 07:12 101 H 23 97 08/10/23 07:06 101 H 08/10/23 05:28 100 H 24 120/77 97 08/10/23 02:00 102 H 28 H 118/78 91 08/10/23 01:00 103 H 26 H 108/68 93 O2 Del Method O2 Flow Rate 08/10/23 10:25 Nasal Cannula 3 08/10/23 10:15 08/10/23 10:03 08/10/23 09:03 08/10/23 08:06 08/10/23 07:12 08/10/23 07:06 08/10/23 05:28 Nasal Cannula 2 08/10/23 02:00 Nasal Cannula 3 08/10/23 01:00 Nasal Cannula 2 Laboratory Results 08/10/23 03:58 08/10/23 03:58 PG Care Time/CCT Total # of Minutes Spent Total Time Spent with Patient: Total time spent is greater than 50% in coordination of care (as documented) at patient's floor/unit and/or counseling patient: Coding Level of Care Code 12157 SUB INP/OBS CARE 3/50MIN Diagnoses Sepsis with acute hypoxic respiratory failure without septic shock, due to unspecified organism A41.9; R65.20; J96.01 Sepsis type: sepsis due to unspecified organism Severe sepsis acute organ dysfunction type: acute respiratory failure Acute respiratory failure type: with hypoxia Severe sepsis shock status: without septic shock Sepsis acute organ dysfunction status: with acute organ dysfunction Abnormal urinalysis R82.90 Right lower lobe consolidation J18.1 Fecal impaction K56.41 Right ischial pressure sore L89.319 Hypokalemia E87.6 (1) Sepsis Sepsis type: sepsis due to unspecified organism Severe sepsis acute organ dysfunction type: acute respiratory failure Acute respiratory failure type: w ith hypoxia Severe sepsis shock status: without septic shock Sepsis acute organ dysfunction status: with acute organ dysfunction Qualified Code(s): A41.9 - Sepsis, unspecified organism; R65.20 - Severe sepsis without septic shock; J96.01 - Acute respiratory failure with hypoxia
[2023-08-10] MEDS: ALBUT/IPRATROP 3MG/0.5MG NEB 3 ML VIAL NEB SCH (14:12)
--- NOTE | 2023-08-10 14:16 | Pharmacy Report ---
Pharmacy PK ABX Note - Date of Service August 10, 2023 - Assessment and Plan Assessment 63 year old M who presented with hypoxic respiratory failure and hypotension. It was receiving treatment at another facility for the past 8 days. Started on empiric vancomycin, cefepime and metronidazole. Potential sources of infection include HAP/aspiration pneumonia and UTI. R ischial pressure sore with significant skin breakdown and chronic osteomyelitis. h/o T4 paraplegia, indwelling Camp catheter, asplenia, HTN, HLP, GERD, depression and ureteral stent. Extensive ID history including Acinetobacter (2022), MRSA (2021), MDR Pseudomonas (urine-2020) and several others Patient was given a vanco loading dose in the ER. A random level was obtained prior to re-dosing given patient was being treated at an outside facility (uncertain if patient received vanco there). Random level resulted at 20.5 mcg/mL. Pertinent microbiologic data includes: Positive MRSA Nasal Swab BC x 2 pending UC pending Plan Vancomycin * Loading dose: 1250 mg IV x 1 * Maintenance dose: 1000 mg IV every 12 hours * Regimen is predicted to achieve target AUC/KONSTANTIN of 400-600 mg/L.hr * Repeat vanc level 6/8 AM Pharmacy will continue to follow and will adjust dose/frequency as necessary. Thank you. Pharmacy has transitioned to AUC monitoring for vancomycin. AUC/KONSTANTIN is the preferred PK/PD target and is associated with decreased risk of nephrotoxicity compared to traditional trough targets.
[2023-08-10] MEDS: ACETAMINOPHEN 325 MG TAB PO PRN (21:01)
[2023-08-10] MEDS: guaiFENesin 600 MG TABCR PO SCH (21:02)
[2023-08-10] MEDS: ATORVASTATIN 20 MG TAB PO SCH (21:02)
[2023-08-10] MEDS: SENNA 8.6 MG TAB PO PRN (21:03)
[2023-08-11] MEDS: VANCOMYCIN LEVEL ONE (06:54)
[2023-08-11 07:14] LABS: Basophils # (auto) 0.14 K/uL (0.00-0.20); Basophils % (auto) 1.6 %; Eosinophils # (auto) 0.03 K/uL (0.00-0.50); Eosinophils % (auto) 0.3 %; Hemoglobin 8.8 g/dl (14.0-18.0); Immature Granulocytes # (auto) 0.04 K/uL (0.01-0.20); Immature Granulocytes % (auto) 0.5 %; Lymphocytes # (auto) 0.71 K/uL (1.20-3.40); Lymphocytes % (auto) 8.2 %; Mean Corpuscular Hemoglobin 30.2 pg (25.0-34.0); Mean Corpuscular Hgb Conc 32.6 g/dL (32.0-36.0); Mean Corpuscular Volume 92.8 fL (80.0-100.0); Monocytes # (auto) 0.34 K/uL (0.11-0.59); Monocytes % (auto) 3.9 %; Neutrophils # (auto) 7.37 K/uL (1.40-6.50); Neutrophils % (auto) 85.5 %; Platelet Count 384 K/uL (130-400); RDW Coefficient of Variation 23.3 % (11.5-14.5); RDW Standard Deviation 77.8 fL (36.4-46.3); Red Blood Count 2.91 M/uL (4.70-6.10); White Blood Count 8.63 K/ul (4.8-10.8)
[2023-08-11 07:36] LABS: Albumin Globulin Ratio 0.5 (0.9-2); Albumin Level 1.5 gm/dl (3.4-5.0); BUN Creatinine Ratio 22.4 (10-20); Bilirubin,Total 0.4 mg/dl (0.2-1.0); Calcium 6.8 mg/dl (8.6-10.3); Creatinine Clr Calc Pharmacy 104.9 ml/min; Est GFR (African American) 119.4 ml/min; Magnesium 1.8 mg/dl (1.7-2.4); Potassium 3.2 mmol/L (3.5-5.1); Total Protein 4.5 gm/dl (6.0-8.3)
[2023-08-11 07:41] LABS: Echinocytes 2+; Polychromasia 1+; Target Cells 1+
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
[2023-08-11] MEDS: FLUCONAZOLE 200 MG/100 ML BAG IV SCH (11:46)
--- NOTE | 2023-08-11 15:31 | Hospitalist Progress Note ---
Date of Service August 11, 2023 Assessment & Plan (1) Sepsis: Plan: Acute sepsis syndrome with associated hypoxic respiratory failure and hypotension. Fortunately, he improved with IV fluids and appropriate antibiotics and antifungals. He is on cefepime day 3 and Diflucan day 1 (2) Abnormal urinalysis: Plan: He has a catheter associated UTI again. 2 species of Cinda isolated. Antibiotics have been switched and he remains on cefepime and Diflucan has been added. Appreciate urology consultation and recommendations. He has bilateral ureter stents in place that hopefully can be changed this admission (3) Acute respiratory failure with hypoxia: Plan: Supplemental oxygen per nasal cannula to maintain saturation greater than 90%. Treat suspected underlying right lower lobe pneumonia (4) Right lower lobe consolidation: Plan: Possible pneumonia. No sputum for culture however. He is currently on cefepime and Diflucan. (5) Fecal impaction: Plan: Present on admission. Now resolved. Continue current bowel regimen (6) Right ischial pressure sore: Plan: Chronic. Continue local care. Wound care consultation appreciated. He does have a WoundVac at home should one be indicated (7) Hypokalemia: Plan: Oral replacement. Serial labs Plan Anticipate eventual discharge back to home Admission and Anticipated Discharge Date Admission Date: August 09, 2023 Subjective Alert and oriented. No distress. He states he is fed up with complications from his current physical status. Unfortunately he has another catheter associated UTI and is growing 2 different species of Cinda in the urine. He is now on cefepime and Diflucan. Cefepime day 3, Diflucan day 1. Appreciate urology consultation and recommendations. Possible bilateral ureter stent exchange this admission. Review of Systems 2 Review of Systems: Constitutional-no fever or chills ENT-no blurred vision, no double vision, no epistaxis, no sore throat Respiratory-no cough, no wheezing, no shortness of breath Cardiac-no palpitations, no chest pain, no syncope GI-no nausea, vomiting, diarrhea, melena, hematochezia -chronic Camp catheter in place. Cloudy urine noted. No hematuria Musculoskeletal-no joint pain, no muscle tenderness Skin-no bruising, no rashes, no pruritus Neuro-chronic lower extremity paraplegia. Psych-depressed affect Physical Exam 2 Physical Exam: General-alert and oriented x3, no fever, no chills HEENT-head atraumatic and normocephalic, pupils equal and reactive to light, extraocular muscles intact Neck-no lymphadenopathy or thyromegaly, trachea midline Chest-clear to auscultation. No rales, wheezing or rhonchi Cardiac-regular rate and rhythm, normal S1 and S2 Abdomen-normal bowel sounds, no hepatosplenomegaly GUchronic Camp catheter in place Extremities-bilateral lower extremities with atrophic changes Neuro-cranial nerves II through XII intact, chronic lower extremity paraplegia Psych-depressed affect Results & Data Results & Data Vital Signs (Past 12 Hours) Vital Signs Temp Pulse Resp BP Pulse Ox O2 Del Method O2 Flow Rate 08/11/23 15:22 87 17 94 Nasal Cannula 2 08/11/23 11:29 36.6 C 77 18 100/66 94 Nasal Cannula 2 08/11/23 11:13 90 17 94 Nasal Cannula 2 08/11/23 08:00 Nasal Cannula 2 08/11/23 07:38 36.8 C 89 18 119/70 91 Room Air 08/11/23 07:20 84 17 95 Nasal Cannula 2 08/11/23 03:30 36.8 C 83 18 114/72 91 Nasal Cannula 2 Laboratory Results 08/11/23 06:42 08/11/23 06:42 PG Care Time/CCT Total # of Minutes Spent Total Time Spent with Patient: Total time spent is greater than 50% in coordination of care (as documented) at patient's floor/unit and/or counseling patient: Coding Level of Care Code 39097 SUB INP/OBS CARE 3/50MIN Diagnoses Sepsis with acute hypoxic respiratory failure without septic shock, due to unspecified organism A41.9; R65.20; J96.01 Sepsis type: sepsis due to unspecified organism Sepsis acute organ dysfunction status: with acute organ dysfunction Severe sepsis acute organ dysfunction type: acute respiratory failure Acute respiratory failure type: with hypoxia Severe sepsis shock status: without septic shock Abnormal urinalysis R82.90 Acute respiratory failure with hypoxia J96.01 Right lower lobe consolidation J18.1 Fecal impaction K56.41 Right ischial pressure sore L89.319 Hypokalemia E87.6 (1) Sepsis Sepsis type: sepsis due to unspecified organism Sepsis acute organ dysfunction status: with acute organ dysfunction Severe sepsis acute organ dysfunction type: acute respiratory failure Acute respiratory failure type: w ith hypoxia Severe sepsis shock status: without septic shock Qualified Code(s): A41.9 - Sepsis, unspecified organism; R65.20 - Severe sepsis without septic shock; J96.01 - Acute respiratory failure with hypoxia
[2023-08-11] MEDS: POTASSIUM CHLORIDE CRTAB 20 MEQ TABCR PO SCH (17:11)
[2023-08-12 10:12] LABS: Hematocrit (blood only) 26.3 % (42.0-52.0); Hemoglobin 8.8 g/dl (14.0-18.0); Mean Corpuscular Hemoglobin 29.9 pg (25.0-34.0); Mean Corpuscular Hgb Conc 33.5 g/dL (32.0-36.0); Mean Corpuscular Volume 89.5 fL (80.0-100.0); Mean Platelet Volume 9.9 fL (9.4-12.4); Nucleated RBC # (auto) 0.02 K/uL (0.00-0.12); Nucleated RBC % (auto) 0.2 %; Platelet Count 351 K/uL (130-400); RDW Standard Deviation 71.1 fL (36.4-46.3); Red Blood Count 2.94 M/uL (4.70-6.10); White Blood Count 10.61 K/ul (4.8-10.8)
[2023-08-12 10:20] LABS: Potassium 3.6 mmol/L (3.5-5.1)
[2023-08-12 10:25] LABS: BUN Creatinine Ratio 18.9 (10-20); Creatinine Clr Calc Pharmacy 98.7 ml/min; Est GFR (African American) 114.6 ml/min; Est GFR (Non-African American) 98.9 ml/min
[2023-08-12] MEDS: AMPICILLIN/SULBACTAM SOD 3,000 MG in SODIUM CHLOR 0.9% MINI-B 100 ML IV SCH (10:46)
[2023-08-12 11:08] LABS: Anisocytosis Present; Basophils # (auto) 0.04 K/uL (0.00-0.20); Basophils % (auto) 0.4 %; Echinocytes 1+; Eosinophils # (auto) 0.01 K/uL (0.00-0.50); Eosinophils % (auto) 0.1 %; Immature Granulocytes # (auto) 0.07 K/uL (0.01-0.20); Immature Granulocytes % (auto) 0.7 %; Lymphocytes # (auto) 0.63 K/uL (1.20-3.40); Lymphocytes % (auto) 5.9 %; Monocytes # (auto) 0.31 K/uL (0.11-0.59); Monocytes % (auto) 2.9 %; Neutrophils # (auto) 9.55 K/uL (1.40-6.50); Pappenheimer Bodies 1+; Target Cells 1+
--- NOTE | 2023-08-12 13:30 | Hospitalist Progress Note ---
Date of Service August 12, 2023 Assessment & Plan (1) Sepsis: Plan: Acute sepsis syndrome with associated hypoxic respiratory failure and hypotension present on admission. Fortunately, he improved with IV fluids and appropriate antibiotics and antifungals. No pressor support required. He is now on Diflucan, day 2, and Unasyn, day 1 (2) Abnormal urinalysis: Plan: He has a catheter associated UTI again. 2 species of Cinda isolated along with Enterococcus faecalis. He is now on Unasyn and Diflucan. Appreciate urology consultation and recommendations. He has bilateral ureter stents in place that hopefully can be exchanged this admission (3) Acute respiratory failure with hypoxia: Plan: Supplemental oxygen per nasal cannula to maintain saturation greater than 90%. Treat suspected underlying right lower lobe pneumonia (4) Right lower lobe consolidation: Plan: Possible pneumonia. No sputum for culture however. He is now on Unasyn and Diflucan (5) Fecal impaction: Plan: Present on admission. Now resolved. Continue current bowel regimen (6) Right ischial pressure sore: Plan: Chronic. Continue local care. Wound care consultation appreciated. He does have a WoundVac at home should one be indicated (7) Hypokalemia: Plan: Oral replacement. Serial labs Plan Anticipate eventual discharge back to home Admission and Anticipated Discharge Date Admission Date: August 09, 2023 Subjective Somnolent this morning, August 11. Urine cultures growing Enterococcus faecalis along with a Cinda. Unasyn has been started, day 1 in addition to the Diflucan, day 2. Urology consultation noted and appreciated. He may yet have bilateral stent exchange this admission. Review of Systems 2 Review of Systems: Constitutional-no fever or chills ENT-no blurred vision, no double vision, no epistaxis, no sore throat Respiratory-no cough, no wheezing, no shortness of breath Cardiac-no palpitations, no chest pain, no syncope GI-no nausea, vomiting, diarrhea, melena, hematochezia -chronic Camp catheter in place. Cloudy urine noted. No hematuria Musculoskeletal-no joint pain, no muscle tenderness Skin-no bruising, no rashes, no pruritus Neuro-chronic lower extremity paraplegia. Psych-depressed affect Physical Exam 2 Physical Exam: General-somnolent. No fever HEENT-head atraumatic and normocephalic, pupils equal and reactive to light, extraocular muscles intact Neck-no lymphadenopathy or thyromegaly, trachea midline Chest-scattered bilateral rhonchi. No rales or wheezing Cardiac-regular rate and rhythm, normal S1 and S2 Abdomen-normal bowel sounds, no hepatosplenomegaly GUchronic Camp catheter in place Extremities-bilateral lower extremities with atrophic changes Neuro-cranial nerves II through XII intact, chronic lower extremity paraplegia Psych-depressed affect Results & Data Results & Data Vital Signs (Past 12 Hours) Vital Signs Temp Pulse Pulse Resp BP Pulse Ox O2 Del Method 08/12/23 12:15 89 08/12/23 12:10 36.3 C L 89 19 138/83 91 Room Air 08/12/23 11:36 89 20 91 Nasal Cannula 08/12/23 09:53 Nasal Cannula 08/12/23 07:41 90 16 91 Nasal Cannula 08/12/23 07:30 36.7 C 89 16 106/66 93 Nasal Cannula 08/12/23 01:59 36.4 C L 84 20 97/65 L 90 Nasal Cannula O2 Flow Rate 08/12/23 12:15 08/12/23 12:10 08/12/23 11:36 3 08/12/23 09:53 3 08/12/23 07:41 2 08/12/23 07:30 3 08/12/23 01:59 3 Laboratory Results 08/12/23 09:50 08/12/23 09:50 PG Care Time/CCT Total # of Minutes Spent Total Time Spent with Patient: Total time spent is greater than 50% in coordination of care (as documented) at patient's floor/unit and/or counseling patient: Coding Level of Care Code 86813 SUB INP/OBS CARE 3/50MIN Diagnoses Sepsis with acute hypoxic respiratory failure without septic shock, due to unspecified organism A41.9; R65.20; J96.01 Sepsis type: sepsis due to unspecified organism Sepsis acute organ dysfunction status: with acute organ dysfunction Severe sepsis acute organ dysfunction type: acute respiratory failure Acute respiratory failure type: with hypoxia Severe sepsis shock status: without septic shock Abnormal urinalysis R82.90 Acute respiratory failure with hypoxia J96.01 Right lower lobe consolidation J18.1 Fecal impaction K56.41 Right ischial pressure sore L89.319 Hypokalemia E87.6 (1) Sepsis Sepsis type: sepsis due to unspecified organism Sepsis acute organ dysfunction status: with acute organ dysfunction Severe sepsis acute organ dysfunction type: acute respiratory failure Acute respiratory failure type: w ith hypoxia Severe sepsis shock status: without septic shock Qualified Code(s): A41.9 - Sepsis, unspecified organism; R65.20 - Severe sepsis without septic shock; J96.01 - Acute respiratory failure with hypoxia
--- NOTE | 2023-08-12 16:58 | Urology Progress Note ---
Date of Service August 12, 2023 Assessment & Plan (1) Sepsis: (2) Complicated UTI (urinary tract infection): (3) Neurogenic bladder: Plan 63-year-old male with a history of paraplegia with neurogenic bladder and subsequent bilateral hydronephrosis managed with chronic indwelling bilateral ureteral stents admitted with sepsis, UTI, hypoxic respiratory failure. - Afebrile and hemodynamically stable at present. - Labs today - WBC 10.61, Creatinine 0.74. - Urine culture 08/08 grew enterococcus and charity albicans/dubliniensis. - Blood cultures prelim no growth x 48 hours. - Continues on Ampicillin and Fluconazole. - Camp intact and draining yellow urine with sediment. - No plan for intervention at this time. - Continue supportive care and antibiotic therapy. - We will work on rescheduling his bilateral ureteral stent placement after acute issues and infection have resolved. This can be set up as an outpatient. - Urology will follow peripherally. Please call with any questions/concerns. Admission and Anticipated Discharge Date Admission Date: August 09, 2023 Subjective Patient seen at bedside this AM. Awake, resting in bed on arrival. No acute distress. Denies f/c/n/v. Camp draining yellow urine w/sediment. Reports back pain. Review of Systems Constitutional: as per Subjective / HPI Gastrointestinal: as per Subjective / HPI Genitourinary: + as per Subjective / HPI Physical Exam Constitutional: no acute distress Respiratory: no respiratory distress and no labored breathing O2 via NC Neurologic: awake Psychiatric: Orientation: alert and cooperative Genitourinary: Camp intact Results & Data Vital Signs (Past 12 Hours) Vital Signs Temp Pulse Resp BP Pulse Ox O2 Del Method O2 Flow Rate 08/12/23 07:41 90 16 91 Nasal Cannula 2 08/12/23 07:30 36.7 C 89 16 106/66 93 Nasal Cannula 3 08/12/23 01:59 36.4 C L 84 20 97/65 L 90 Nasal Cannula 3 08/11/23 23:08 36.7 C 83 16 108/61 94 Nasal Cannula 2 PG Care Time/CCT Total # of Minutes Spent Total Time Spent with Patient: Total time spent is greater than 50% in coordination of care (as documented) at patient's floor/unit and/or counseling patient: Coding Level of Care Code 04003 SUB INP/OBS CARE 2/35MIN Diagnoses Sepsis with acute hypoxic respiratory failure without septic shock, due to unspecified organism A41.9; R65.20; J96.01 Acute respiratory failure type: with hypoxia Sepsis acute organ dysfunction status: with acute organ dysfunction Sepsis type: sepsis due to unspecified organism Severe sepsis acute organ dysfunction type: acute respiratory failure Severe sepsis shock status: without septic shock Complicated UTI (urinary tract infection) N39.0 Neurogenic bladder N31.9 (1) Sepsis Acute respiratory failure type: with hypoxia Sepsis acute organ dysfunction status: with acute organ dysfunction Sepsis type: sepsis due to unspecified organism Severe sepsis acute organ dysfunction type: acute respiratory failure Severe sepsis shock status: without septic shock Qualified Code(s): A41.9 - Sepsis, unspecified organism; R65.20 - Severe sepsis without septic shock; J96.01 - Acute respiratory failure with hypoxia
[2023-08-13 06:22] LABS: Hematocrit (blood only) 25.9 % (42.0-52.0); Hemoglobin 8.7 g/dl (14.0-18.0); Mean Corpuscular Hemoglobin 30.3 pg (25.0-34.0); Mean Corpuscular Hgb Conc 33.6 g/dL (32.0-36.0); Mean Corpuscular Volume 90.2 fL (80.0-100.0); Mean Platelet Volume 9.8 fL (9.4-12.4); Nucleated RBC # (auto) 0.03 K/uL (0.00-0.12); Nucleated RBC % (auto) 0.2 %; Platelet Count 308 K/uL (130-400); RDW Coefficient of Variation 21.2 % (11.5-14.5); RDW Standard Deviation 69.1 fL (36.4-46.3); Red Blood Count 2.87 M/uL (4.70-6.10); White Blood Count 15.86 K/ul (4.8-10.8)
[2023-08-13 06:29] LABS: Creatinine Clr Calc Pharmacy 94.8 ml/min; Est GFR (African American) 113.9 ml/min; Est GFR (Non-African American) 98.3 ml/min; Potassium 4.3 mmol/L (3.5-5.1)
[2023-08-13 06:47] LABS: Anisocytosis Present; Basophils # (auto) 0.03 K/uL (0.00-0.20); Basophils % (auto) 0.2 %; Eosinophils # (auto) 0.01 K/uL (0.00-0.50); Eosinophils % (auto) 0.1 %; Immature Granulocytes # (auto) 0.12 K/uL (0.01-0.20); Immature Granulocytes % (auto) 0.8 %; Lymphocytes # (auto) 1.32 K/uL (1.20-3.40); Lymphocytes % (auto) 8.3 %; Monocytes # (auto) 0.48 K/uL (0.11-0.59); Neutrophils % (auto) 87.6 %; Pappenheimer Bodies 1+; Target Cells 1+
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
[2023-08-13 10:58] LABS: D Dimer 620 ug/L FEU (0-500)
--- NOTE | 2023-08-13 11:14 | XRay Report ---
XR chest 1V portable HISTORY: 63 years-old Male hypoxia COMPARISON: 08/09/2023 TECHNIQUE: AP view of the chest FINDINGS: pneumothorax. No pleural effusions. The heart is normal in size. Pulmonary vascular congestion. No fo mike lung consolidations to suggest a pneumonia. Degenerative changes within the shoulders again noted . Thoracic spinal rods are intact. Epigastric suture material, unchanged. IMPRESSION: Mild pulmonary vascular congestion. ACT 112: Negative or not required by law. The above report was generated using voice recognition software. It may contain grammatical, syntax o r spelling errors. Electronically signed by: Prateek Garcia M.D. 08/13/2023 11:12 AM
[2023-08-13] MEDS: FUROSEMIDE 40 MG/4 ML VIAL IV ONE (12:27)
--- NOTE | 2023-08-13 13:40 | Hospitalist Progress Note ---
Date of Service August 13, 2023 Assessment & Plan (1) Sepsis: Plan: Acute sepsis syndrome with associated hypoxic respiratory failure and hypotension present on admission. Fortunately, he improved with IV fluids and appropriate antibiotics and antifungals. No pressor support required. He is now on Diflucan, day 3, and Unasyn, day 2 (2) Abnormal urinalysis: Plan: He has a catheter associated UTI again. 2 species of Cinda isolated along with Enterococcus faecalis. He is now on Unasyn and Diflucan. Appreciate urology consultation and recommendations. He has bilateral ureter stents in place. Urology indicates that these will be exchanged at a later date (3) Acute respiratory failure with hypoxia: Plan: Supplemental oxygen per nasal cannula to maintain saturation greater than 90%. Treat suspected underlying right lower lobe pneumonia. D-dimer is elevated and chest x-ray reveals pulmonary vascular congestion. Chest CTA ordered to rule out underlying PE. He was given 1 dose of parenteral Lasix today and will gauge response (4) Right lower lobe consolidation: Plan: Possible pneumonia. No sputum for culture however. He is now on Unasyn and Diflucan. Repeat chest x-ray done today, August 12, was not read as pneumonia but possible pulmonary vascular congestion (5) Fecal impaction: Plan: Present on admission. Now resolved. Continue current bowel regimen (6) Right ischial pressure sore: Plan: Chronic. Continue local care. Wound care consultation appreciated. He does have a WoundVac at home should one be indicated. General surgery consultation pending to determine if this needs debridement (7) Hypokalemia: Plan: Corrected with oral replacement which has been discontinued. Serial labs Plan To be determined Admission and Anticipated Discharge Date Admission Date: August 09, 2023 Subjective The patient seems to be delirious at the time of my examination. This raises the question of alcohol withdrawal. I spoke to the nurse who will contact the to ascertain his chronic alcohol intake. Surgery consultation is pending. He may need debridement of his chronic decubiti. Cinda and Enterococcus growing from the urine. He is now on Diflucan and Unasyn. He continues to require oxygen and D-dimer is elevated. Chest CTA is ordered to rule out PE. Chest x-ray reveals pulmonary vascular congestion and he was given 1 dose of parenteral Lasix and will see how he responds. Potassium corrected to 4.3. Oral potassium replacement discontinued. Review of Systems 2 Review of Systems: The patient is unable to reliably answer any questions regarding review of systems at this time Physical Exam 2 Physical Exam: General-alert but nonsensical speech. He appears delirious. No fever HEENT-head atraumatic and normocephalic, pupils equal and reactive to light, extraocular muscles intact Neck-no lymphadenopathy or thyromegaly, trachea midline Chest-scattered bilateral rhonchi but less so than yesterday, August 11. No rales or wheezing Cardiac-regular rate and rhythm, normal S1 and S2 Abdomen-normal bowel sounds, no hepatosplenomegaly Skinchronic decubitus ulcerations GUchronic Camp catheter in place Extremities-bilateral lower extremities with atrophic changes Neuro-cranial nerves II through XII intact, chronic lower extremity paraplegia Psych-cannot assess Results & Data Results & Data Vital Signs (Past 12 Hours) Vital Signs Temp Pulse Pulse Resp BP Pulse Ox O2 Del Method 08/13/23 12:00 36.7 C 78 16 122/76 96 Nasal Cannula 08/13/23 10:36 92 H 18 93 Nasal Cannula 08/13/23 09:51 89 08/13/23 08:17 Nasal Cannula 08/13/23 08:02 36.6 C 92 H 18 117/74 92 Nasal Cannula 08/13/23 07:48 106 H 16 93 Room Air 08/13/23 01:50 36.7 C 90 20 100/65 93 Nasal Cannula O2 Flow Rate 08/13/23 12:00 3 08/13/23 10:36 2 08/13/23 09:51 08/13/23 08:17 3 08/13/23 08:02 3 08/13/23 07:48 08/13/23 01:50 3 Laboratory Results 08/13/23 05:50 08/13/23 05:50 PG Care Time/CCT Total # of Minutes Spent Total Time Spent with Patient: Total time spent is greater than 50% in coordination of care (as documented) at patient's floor/unit and/or counseling patient: Coding Level of Care Code 23909 SUB INP/OBS CARE 3/50MIN Diagnoses Sepsis with acute hypoxic respiratory failure without septic shock, due to unspecified organism A41.9; R65.20; J96.01 Sepsis type: sepsis due to unspecified organism Sepsis acute organ dysfunction status: with acute organ dysfunction Severe sepsis acute organ dysfunction type: acute respiratory failure Acute respiratory failure type: with hypoxia Severe sepsis shock status: without septic shock Abnormal urinalysis R82.90 Acute respiratory failure with hypoxia J96.01 Right lower lobe consolidation J18.1 Fecal impaction K56.41 Right ischial pressure sore L89.319 Hypokalemia E87.6 (1) Sepsis Sepsis type: sepsis due to unspecified organism Sepsis acute organ dysfunction status: with acute organ dysfunction Severe sepsis acute organ dysfunction type: acute respiratory failure Acute respiratory failure type: w ith hypoxia Severe sepsis shock status: without septic shock Qualified Code(s): A41.9 - Sepsis, unspecified organism; R65.20 - Severe sepsis without septic shock; J96.01 - Acute respiratory failure with hypoxia
[2023-08-13] MEDS: OPTIRAY 320 125ml IV ONE (14:24)
--- NOTE | 2023-08-13 14:59 | CT Scan Report ---
CT ANGIOGRAPHY OF THE CHEST, PULMONARY EMBOLUS PROTOCOL CLINICAL HISTORY: hypoxia, paraplegia, elevated d-Dimer COMPARISON STUDY: Chest CT July 18, 2022. Chest radiograph performed earlier today. CT of the abdomen and pelvis August 09, 2023. TECHNIQUE: Following IV administration of 123 mL of Optiray, helical axial images of the chest were o btained utilizing the pulmonary embolus protocol. Maximal intensity projections and sagittal and cor onal reformats were viewed on an independent 3D workstation. IV contrast was administered without co mplication. Automated exposure control was utilized for the study. A dose lowering technique was ut ilized adhering to the principles of ALARA. CT DOSE: 582.43 mGy.cm FINDINGS: This exam is significantly compromised by motion artifact. No central pulmonary emboli are identified. The remainder of the pulmonary arteries are suboptimally assessed. There is no thoracic dissection. A moderate sized hiatal hernia is present. There are prominent right hilar lymph nodes. T here is no pneumothorax. Small bilateral pleural effusions are present. Bilateral lower lobe opacitie s are greater within the right lower lobe. Scattered tree-in-bud nodules are present. There are also moderate alveolar opacities within the upper lobes. Lower lobe airspace opacities have increased sinc e recent abdominal CT of August 09, 2023. Right humeral internal fixation is present. Scoliosis hardware is in place. There is body wall edema. Left hydronephrosis is partially imaged. This was shown on re cent abdominal CT. IMPRESSION: 1. Exam significantly compromised by motion artifact. No central pulmonary emboli. Remainder of pulmo nary arteries suboptimally assessed due to artifact. 2. Increase in bilateral lower lobe alveolar opacities. The findings favor aspiration pneumonitis. Pn eumonia could appear similar. 3. Extensive bilateral upper lobe groundglass opacities. An infectious etiology is favored. Alveolar pulmonary edema could appear similar. 4. Small bilateral pleural effusions. 5. Left hydronephrosis, partially imaged on this exam. This was shown on recent abdominal CT. ACT 112: Negative or not required by law. Electronically signed by: Omar Fishre M.D. 08/13/2023 2:57 PM
--- NOTE | 2023-08-13 15:39 | Urology Progress Note ---
Date of Service August 13, 2023 Assessment & Plan (1) Sepsis: (2) Complicated UTI (urinary tract infection): (3) Neurogenic bladder: Plan 63-year-old male with a history of paraplegia with neurogenic bladder and subsequent bilateral hydronephrosis managed with chronic indwelling bilateral ureteral stents (last exchanged 05/07/23) admitted with sepsis, UTI, hypoxic respiratory failure. CT abd pelvis on admission show the bilateral ureteral stents and Camp catheter in good position. - Afebrile and hemodynamically stable at present. - Labs today - WBC up to 15.86 today, Creatinine 0.75. - Urine culture 08/08 grew enterococcus and charity albicans/dubliniensis. - Blood cultures prelim no growth x 48 hours. - Continues on Ampicillin and Fluconazole. - Camp intact and draining yellow urine with sediment. - No plan for intervention at this time. - Continue supportive care, antibiotic therapy, and management per primary team. - We will work on rescheduling his bilateral ureteral stent exchange after his acute issues and infection have resolved. This can be set up as an outpatient. - Urology will follow peripherally. Please call with any questions/concerns. Admission and Anticipated Discharge Date Admission Date: August 09, 2023 Subjective Patient seen at bedside this AM. Awake, resting in bed on arrival. No acute distress. Seems more confused today. Oriented to person and place. On O2 via NC Denies f/c/n/v. Camp draining yellow urine w/sediment. D-dimer is elevated and he is pending Chest CTA this morning Surgery consult pending for poss debridement of bilateral ischial wounds Review of Systems Constitutional: as per Subjective / HPI Gastrointestinal: as per Subjective / HPI Genitourinary: + as per Subjective / HPI Physical Exam Constitutional: + ill appearing and + altered mental sta tus; no acute distress Respiratory: no respiratory distress and no labored breathing O2 via NC Neurologic: awake Psychiatric: Orientation: alert and oriented to person Genitourinary: Camp intact Results & Data Vital Signs (Past 12 Hours) Vital Signs Temp Pulse Pulse Resp BP Pulse Ox O2 Del Method 08/13/23 12:00 36.7 C 78 16 122/76 96 Nasal Cannula 08/13/23 10:36 92 H 18 93 Nasal Cannula 08/13/23 09:51 89 08/13/23 08:17 Nasal Cannula 08/13/23 08:02 36.6 C 92 H 18 117/74 92 Nasal Cannula 08/13/23 07:48 106 H 16 93 Room Air O2 Flow Rate 08/13/23 12:00 3 08/13/23 10:36 2 08/13/23 09:51 08/13/23 08:17 3 08/13/23 08:02 3 08/13/23 07:48 PG Care Time/CCT Total # of Minutes Spent Total Time Spent with Patient: Total time spent is greater than 50% in coordination of care (as documented) at patient's floor/unit and/or counseling patient: Coding Level of Care Code 49759 SUB INP/OBS CARE 2/35MIN Diagnoses Sepsis with acute hypoxic respiratory failure without septic shock, due to unspecified organism A41.9; R65.20; J96.01 Acute respiratory failure type: with hypoxia Sepsis acute organ dysfunction status: with acute organ dysfunction Sepsis type: sepsis due to unspecified organism Severe sepsis acute organ dysfunction type: acute respiratory failure Severe sepsis shock status: without septic shock Complicated UTI (urinary tract infection) N39.0 Neurogenic bladder N31.9 (1) Sepsis Acute respiratory failure type: with hypoxia Sepsis acute organ dysfunction status: with acute organ dysfunction Sepsis type: sepsis due to unspecified organism Severe sepsis acute organ dysfunction type: acute respiratory failure Severe sepsis shock status: without septic shock Qualified Code(s): A41.9 - Sepsis, unspecified organism; R65.20 - Severe sepsis without septic shock; J96.01 - Acute respiratory failure with hypoxia
[2023-08-14 06:55] LABS: Hematocrit (blood only) 25.5 % (42.0-52.0); Hemoglobin 8.7 g/dl (14.0-18.0); Mean Corpuscular Hemoglobin 29.8 pg (25.0-34.0); Mean Corpuscular Hgb Conc 34.1 g/dL (32.0-36.0); Mean Corpuscular Volume 87.3 fL (80.0-100.0); Mean Platelet Volume 10.4 fL (9.4-12.4); Nucleated RBC # (auto) 0.04 K/uL (0.00-0.12); Nucleated RBC % (auto) 0.2 %; Platelet Count 337 K/uL (130-400); RDW Coefficient of Variation 22.6 % (11.5-14.5); RDW Standard Deviation 71.1 fL (36.4-46.3); Red Blood Count 2.92 M/uL (4.70-6.10); White Blood Count 16.62 K/ul (4.8-10.8)
[2023-08-14 07:17] LABS: BUN Creatinine Ratio 17.4 (10-20); Calcium 7.1 mg/dl (8.6-10.3); Creatinine Clr Calc Pharmacy 104.1 ml/min; Est GFR (African American) 117.9 ml/min; Est GFR (Non-African American) 101.7 ml/min; Potassium 3.7 mmol/L (3.5-5.1)
[2023-08-14 07:37] LABS: Anisocytosis Present; Basophils # (auto) 0.03 K/uL (0.00-0.20); Basophils % (auto) 0.2 %; Eosinophils # (auto) 0.01 K/uL (0.00-0.50); Eosinophils % (auto) 0.1 %; Immature Granulocytes # (auto) 0.14 K/uL (0.01-0.20); Immature Granulocytes % (auto) 0.8 %; Lymphocytes # (auto) 0.99 K/uL (1.20-3.40); Monocytes # (auto) 0.45 K/uL (0.11-0.59); Monocytes % (auto) 2.7 %; Neutrophils % (auto) 90.2 %; Polychromasia 2+; Target Cells 2+
[2023-08-14] MEDS: POTASSIUM CHLORIDE CRTAB 20 MEQ TABCR PO ONE (08:57)
[2023-08-14] MEDS: FUROSEMIDE 40 MG/4 ML VIAL IV ONE (08:57)
[2023-08-14] MEDS: COLLAGENASE OINT 30 GM TUBE EXT SCH (11:44)
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
[2023-08-14] MEDS ORDERED: VANCOMYCIN CONSULT ACTIVE PRN (12:36)
--- NOTE | 2023-08-14 13:15 | Hospitalist Progress Note ---
Date of Service August 14, 2023 Assessment & Plan (1) Sepsis: Plan: Acute sepsis syndrome with associated hypoxic respiratory failure and hypotension present on admission. Fortunately, he improved with IV fluids and appropriate antibiotics and antifungals. No pressor support required. He is now on Diflucan, day 4, and Unasyn, day 3 (2) Abnormal urinalysis: Plan: He has a catheter associated UTI again. 2 species of Cinda isolated along with Enterococcus faecalis. He is now on Unasyn and Diflucan. Appreciate urology consultation and recommendations. He has bilateral ureter stents in place. Urology indicates that these will be exchanged at a later date (3) Acute respiratory failure with hypoxia: Plan: Supplemental oxygen per nasal cannula to maintain saturation greater than 90%. Treat suspected underlying right lower lobe pneumonia. D-dimer is elevated and chest x-ray reveals pulmonary vascular congestion. Chest CTA ordered to rule out underlying PE. He had a significant diuresis with parenteral Lasix administered yesterday, August 12. Will repeat Lasix again today, August 14. Repeat portable chest x-ray again tomorrow, August 14. (4) Right lower lobe consolidation: Plan: Possible pneumonia. No sputum for culture however. He is now on Unasyn and Diflucan. Vancomycin was also restarted by infectious disease. Will repeat portable chest x-ray again tomorrow, August 14. (5) Fecal impaction: Plan: Present on admission. Now resolved. Continue current bowel regimen (6) Right ischial pressure sore: Plan: Chronic. With associated osteomyelitis. Continue local care. Wound care consultation appreciated. He does have a WoundVac at home should one be indicated. General surgery consultation appreciated. They indicate no need for debridement at this time. (7) Hypokalemia: Plan: Potassium dropped significantly with Lasix diuresis. Oral potassium supplement has been restarted. Serial labs Plan To be determined. He is a candidate for LTAC placement Admission and Anticipated Discharge Date Admission Date: August 09, 2023 Subjective Awake but delirious with nonsensical speech. Vital signs are stable. ID consultation noted. Vancomycin has been restarted. He remains on intravenous Unasyn, day 3 and VAC Diflucan, day 4. He had significant diuresis with IV Lasix yesterday, August 12. Will repeat parenteral Lasix today, August 13 and repeat portable chest x-ray tomorrow. Oral potassium has been restarted since potassium dropped to 3.7. Urology has stated that bilateral ureter stent exchange will take place as an outpatient. I feel that LTAC placement would be appropriate for this patient. I doubt if his /significant other is able to provide adequate care at home Review of Systems 2 Review of Systems: The patient is unable to reliably answer any questions regarding review of systems at this time Physical Exam 2 Physical Exam: General-alert but nonsensical speech. He appears delirious. No fever HEENT-head atraumatic and normocephalic, pupils equal and reactive to light, extraocular muscles intact Neck-no lymphadenopathy or thyromegaly, trachea midline Chest-scattered bilateral rhonchi but less so than yesterday, August 11. No rales or wheezing Cardiac-regular rate and rhythm, normal S1 and S2 Abdomen-normal bowel sounds, no hepatosplenomegaly Skinchronic decubitus ulcerations GUchronic Camp catheter in place Extremities-bilateral lower extremities with atrophic changes Neuro-cranial nerves II through XII intact, chronic lower extremity paraplegia Psych-cannot assess Results & Data Results & Data Vital Signs (Past 12 Hours) Vital Signs Temp Pulse Pulse Resp BP Pulse Ox O2 Del Method 08/14/23 12:10 36.5 C 101 H 20 111/71 90 Nasal Cannula 08/14/23 10:32 102 H 18 91 Nasal Cannula 08/14/23 08:20 97 H 08/14/23 07:38 36.6 C 101 H 16 101/63 95 Nasal Cannula 08/14/23 07:18 Nasal Cannula 08/14/23 07:08 93 H 18 90 Nasal Cannula 08/14/23 02:57 36.7 C 93 H 19 97/70 L 91 Nasal Cannula O2 Flow Rate 08/14/23 12:10 3 08/14/23 10:32 3 08/14/23 08:20 08/14/23 07:38 3 08/14/23 07:18 3 08/14/23 07:08 3 08/14/23 02:57 3 Laboratory Results 08/14/23 06:19 08/14/23 06:19 PG Care Time/CCT Total # of Minutes Spent Total Time Spent with Patient: Total time spent is greater than 50% in coordination of care (as documented) at patient's floor/unit and/or counseling patient: Coding Level of Care Code 28413 SUB INP/OBS CARE 3/50MIN Diagnoses Sepsis with acute hypoxic respiratory failure without septic shock, due to unspecified organism A41.9; R65.20; J96.01 Sepsis type: sepsis due to unspecified organism Sepsis acute organ dysfunction status: with acute organ dysfunction Severe sepsis acute organ dysfunction type: acute respiratory failure Acute respiratory failure type: with hypoxia Severe sepsis shock status: without septic shock Abnormal urinalysis R82.90 Acute respiratory failure with hypoxia J96.01 Right lower lobe consolidation J18.1 Fecal impaction K56.41 Right ischial pressure sore L89.319 Hypokalemia E87.6 (1) Sepsis Sepsis type: sepsis due to unspecified organism Sepsis acute organ dysfunction status: with acute organ dysfunction Severe sepsis acute organ dysfunction type: acute respiratory failure Acute respiratory failure type: w ith hypoxia Severe sepsis shock status: without septic shock Qualified Code(s): A41.9 - Sepsis, unspecified organism; R65.20 - Severe sepsis without septic shock; J96.01 - Acute respiratory failure with hypoxia
[2023-08-14] MEDS: VANCOMYCIN HCL 1,500 MG in SODIUM CHLORIDE 0.9% 500 ML IV ONE (13:37)
[2023-08-14 13:44] LABS: Appearance Urine Cloudy (Clear); Bacteria Urine Automated None Seen (None Seen); Bilirubin Urine Negative (Negative); Blood Urine 3+ (Negative); Color Urine Red; Epithelial Cell Urine Auto 0-2 /hpf (0-2); Glucose Urine UA Negative (Negative); Ketones Urine Negative (Negative); Leukocyte Esterase Urine 3+ (Negative); Nitrite Urine Negative (Negative); Protein Urine 1+ (Negative); RBC Urine Automated >20 /hpf (0-2); Urobilinogen Urine Negative (Negative); WBC Urine Automated >50 /hpf (0-5)
--- NOTE | 2023-08-14 14:01 | Pharmacy Report ---
Pharmacy PK ABX Note - Date of Service August 14, 2023 - Assessment and Plan Assessment 08/13: Vancomycin restarted today empirically for pulmonary coverage in light of positive MRSA nasal swab and increasing WBC count. ID consulted and recommending vancomycin, Unasyn, and fluconazole at this time. Last dose of prior vancomycin regimen was on 08/09. Background from 08/10/23: 63 year old M who presented with hypoxic respiratory failure and hypotension. It was receiving treatment at another facility for the past 8 days. Started on empiric vancomycin, cefepime and metronidazole. Potential sources of infection include HAP/aspiration pneumonia and UTI. R ischial pressure sore with significant skin breakdown and chronic osteomyelitis. h/o T4 paraplegia, indwelling Camp catheter, asplenia, HTN, HLP, GERD, depression and ureteral stent. Extensive ID history including Acinetobacter (2022), MRSA (2021), MDR Pseudomonas (urine-2020) and several others Patient was given a vanco loading dose in the ER. A random level was obtained prior to re-dosing given patient was being treated at an outside facility (uncertain if patient received vanco there). Random level resulted at 20.5 mcg/mL. Pertinent microbiologic data includes: Positive MRSA Nasal Swab BC x 2: no growth at 48 hours UC: Enterococcus faecalis (penicillin sensitive) and Cinda albicans/dubliniensis Plan Vancomycin * Loading dose: 1500 mg IV x 1 * Maintenance dose: 750 mg IV q12h * Regimen is predicted to achieve target AUC/KONSTANTIN of 400-600 mg/L.hr * Will order vancomycin trough level prior to 4th maintenance dose on 08/16/23 Pharmacy will continue to follow and will adjust dose/frequency as necessary. Thank you. Pharmacy has transitioned to AUC monitoring for vancomycin. AUC/KONSTANTIN is the preferred PK/PD target and is associated with decreased risk of nephrotoxicity compared to traditional trough targets.
--- NOTE | 2023-08-14 16:06 | Urology Progress Note ---
Date of Service August 14, 2023 Assessment & Plan (1) Sepsis: (2) Complicated UTI (urinary tract infection): (3) Neurogenic bladder: Plan 63-year-old male with a history of paraplegia with neurogenic bladder and subsequent bilateral hydronephrosis managed with chronic indwelling bilateral ureteral stents (last exchanged 05/07/23) admitted with sepsis, UTI, hypoxic respiratory failure. CT abd pelvis on admission show bilateral hydroureteronephrosis with findings of possible chronic irritation of ureteral stents vs infectious pyelitis and the bilateral ureteral stents and Camp catheter in good position. - Afebrile, normotensive, tachycardic at present. On O2 via NC. - Labs today - WBC up to 16.62 today, Creatinine 0.69. - Urine culture 08/08 grew enterococcus and charity albicans/dubliniensis. Repeat pending. - Blood cultures prelim no growth x 48 hours. - Continues on Ampicillin and Fluconazole. - ID consulted, note reviewed. Vanco restarted today for pulmonary coverage. Camp cath exchanged by nursing. - Camp intact and draining yellow urine. - No plan for acute intervention at this time. - Continue supportive care, antibiotic therapy, and management per primary team. - We will work on rescheduling his bilateral ureteral stent exchange after his acute issues/infection have been treated appropriately and resolved. This can likely be set up as an outpatient pending his hospital course. - Urology will follow peripherally. Please call with any questions/concerns. Admission and Anticipated Discharge Date Admission Date: August 09, 2023 Subjective Patient seen at bedside today Awake, resting in bed on arrival. No acute distress. Oriented to person. Garbled speech. On O2 via NC No fevers. Camp draining yellow urine w/sediment. Review of Systems Constitutional: as per Subjective / HPI Genitourinary: + as per Subjective / HPI Physical Exam Constitutional: + ill appearing and + altered mental sta tus; no acute distress Respiratory: no respiratory distress and no labored breathing Neurologic: awake Psychiatric: Orientation: alert and oriented to person Genitourinary: Camp intact Results & Data Vital Signs (Past 12 Hours) Vital Signs Temp Pulse Pulse Resp BP Pulse Ox O2 Del Method 08/14/23 15:31 101 H 08/14/23 15:23 37.2 C 105 H 19 108/64 93 Nasal Cannula 08/14/23 12:10 36.5 C 101 H 20 111/71 90 Nasal Cannula 08/14/23 10:32 102 H 18 91 Nasal Cannula 08/14/23 08:20 97 H 08/14/23 07:38 36.6 C 101 H 16 101/63 95 Nasal Cannula 08/14/23 07:18 Nasal Cannula 08/14/23 07:08 93 H 18 90 Nasal Cannula O2 Flow Rate 08/14/23 15:31 08/14/23 15:23 3 08/14/23 12:10 3 08/14/23 10:32 3 08/14/23 08:20 08/14/23 07:38 3 08/14/23 07:18 3 08/14/23 07:08 3 PG Care Time/CCT Total # of Minutes Spent Total Time Spent with Patient: Total time spent is greater than 50% in coordination of care (as documented) at patient's floor/unit and/or counseling patient: Coding Level of Care Code 22682 SUB INP/OBS CARE Diagnoses Sepsis with acute hypoxic respiratory failure without septic shock, due to unspecified organism A41.9; R65.20; J96.01 Acute respiratory failure type: with hypoxia Sepsis acute organ dysfunction status: with acute organ dysfunction Sepsis type: sepsis due to unspecified organism Severe sepsis acute organ dysfunction type: acute respiratory failure Severe sepsis shock status: without septic shock Complicated UTI (urinary tract infection) N39.0 Neurogenic bladder N31.9 (1) Sepsis Acute respiratory failure type: with hypoxia Sepsis acute organ dysfunction status: with acute organ dysfunction Sepsis type: sepsis due to unspecified organism Severe sepsis acute organ dysfunction type: acute respiratory failure Severe sepsis shock status: without septic shock Qualified Code(s): A41.9 - Sepsis, unspecified organism; R65.20 - Severe sepsis without septic shock; J96.01 - Acute respiratory failure with hypoxia
[2023-08-14] MEDS: VANCOMYCIN HCL 750 MG in SODIUM CHLORIDE 0.9% 250 ML IV SCH (23:55)
--- NOTE | 2023-08-15 00:34 | Communication Note ---
Date of Service: August 15, 2023 Alerted that patient with increased work of breathing and worsening oxygen requirement by nursing. Resident to bedside. Patient in mild to moderate respiratory distress with increased work of breathing and retractions. Ashen in appearance. Ordered CXR, ABG, CBC, CMP, procal, lactate, Mag, BNP, repeat D- dimer, random cortisol, and BiPAP. BP soft with acceptable MAPs. Ordered 1 g of mag. Patient was aggressively fluid resuscitated as he came in with sepsis. Has gotten Lasix IV x 2 at this point. CTA ordered today for D-dimer of 620. No saddle embolism present, unable to fully assess the rest of the vasculature. Ordered BLE dopplers. Patient denies any feelings of dyspnea. Patient confused at baseline, but this is not his baseline respiratory status. Workup notable for respiratory alkalosis pH 7.58. D-dimer now 1020. Dopplers pending. High clinical suspicion for PE as patient with new respiratory distress, increasing d-dimer, and prolonged hospital stay without DVT ppx. Chart reviewed - no history of bleeding. Unclear why patient not on DVT ppx as there do not appear to be any contraindications. Start heparin low dose, no bolus. Ordered repeat CTA PE protocol. Will sign out to day team. Case discussed with Dr. Palencia. Resident Activity Tracking Resident Involvement: Resident Care Provided Care Provided: Adult Hospital Medicine
[2023-08-15] MEDS: MAGNESIUM SULFATE / D5W 1 GM/100 ML BAG IV ONE (01:03)
[2023-08-15 01:08] LABS: Base Excess ABG 1.4 mEq/L (-9-1.8); HCO3 ABG 22 mmol/L (19-24); Oxygen Saturation ABG 98.5 % (90-95); PCO2 ABG 23 mmHg (35-46); PO2 ABG 260 mmHg (80-95)
[2023-08-15 01:22] LABS: Hematocrit (blood only) 22.5 % (42.0-52.0); Hemoglobin 7.9 g/dl (14.0-18.0); Mean Corpuscular Hemoglobin 30.2 pg (25.0-34.0); Mean Corpuscular Hgb Conc 35.1 g/dL (32.0-36.0); Mean Corpuscular Volume 85.9 fL (80.0-100.0); Mean Platelet Volume 10.4 fL (9.4-12.4); Platelet Count 314 K/uL (130-400); RDW Coefficient of Variation 22.1 % (11.5-14.5); RDW Standard Deviation 67.5 fL (36.4-46.3); Red Blood Count 2.62 M/uL (4.70-6.10); White Blood Count 14.84 K/ul (4.8-10.8)
[2023-08-15 01:26] LABS: Allen Test Pos (Pos)
[2023-08-15 01:27] LABS: pH ABG 7.58 (7.35-7.45)
[2023-08-15 01:28] LABS: Albumin Globulin Ratio 0.5 (0.9-2); Albumin Level 1.5 gm/dl (3.4-5.0); BUN Creatinine Ratio 13.9 (10-20); Bilirubin,Total 0.5 mg/dl (0.2-1.0); Calcium 6.9 mg/dl (8.6-10.3); Creatinine Clr Calc Pharmacy 99.8 ml/min; Est GFR (African American) 115.9 ml/min; Globulin 2.8 gm/dl (2.5-4.0); Magnesium 1.8 mg/dl (1.7-2.4); Potassium 2.9 mmol/L (3.5-5.1); Total Protein 4.3 gm/dl (6.0-8.3)
[2023-08-15 02:04] LABS: D Dimer 1020 ug/L FEU (0-500)
[2023-08-15] MEDS ORDERED: Heparin IV Adult Wt-Based Low-Dose *NO* INITIAL Bolus Protocol IV STA (02:23)
[2023-08-15 03:17] LABS: INR 1.5 (0.9-1.1); Partial Thromboplastin Ratio 1.2; Partial Thromboplastin Time 33 Seconds (21-31); Prothrombin Time 15.8 Seconds (9.0-12.0)
[2023-08-15] MEDS: OPTIRAY 320 125ml IV ONE (03:36)
[2023-08-15] MEDS: HEPARIN SODIUM/DEXTROSE 25,000 UNITS/500 ML BAG IV SCH (03:48)
[2023-08-15] MEDS: POTASSIUM CHLORIDE / WTR 10 MEQ/100 ML PLCT IV SCH ×2 (03:57→08:53)
--- NOTE | 2023-08-15 06:34 | Ultrasound Report ---
Exam(s): US VENOUS BILATERAL LOWER EXTREMITIES EXAM: US Duplex Bilateral Lower Extremities Veins CLINICAL HISTORY: Deep vein thrombosis TECHNIQUE: Real-time duplex ultrasound scan of the bilateral lower extremity veins integrating B-mode two-dimensional vascular structure, Doppler spectral analysis, color flow Doppler imaging and compression. COMPARISON: No relevant prior studies available. FINDINGS: Right deep veins: Unremarkable. No Deep vein thrombosis in the right common femoral, femoral, proximal deep femoral or popliteal veins. The veins demonstrate normal color flow, are normally compressible, with normal phasic flow and/or augmentation response. Right superficial veins: Unremarkable. No thrombus in the visualized right great saphenous vein. Left deep veins: Unremarkable. No Deep vein thrombosis in the left common femoral, femoral, proximal deep femoral or popliteal veins. The veins demonstrate normal color flow, are normally compressible, with normal phasic flow and/or augmentation response. Left superficial veins: Unremarkable. No thrombus in the visualized left great saphenous vein. Soft tissues: Nonspecific subcutaneous edema bilaterally. No popliteal cyst. IMPRESSION: 1. Nonspecific subcutaneous edema bilaterally. 2. No deep vein thrombosis of either lower extremity. Electronically signed by: Bryanna Pemberton MD 08/15/23 06:32 AM
--- NOTE | 2023-08-15 06:44 | CT Scan Report ---
Exam(s): CTA CHEST IV Amt: 118 ML OPTIRAY 320 EXAM: CT Angiography Chest With Intravenous Contrast CLINICAL HISTORY: Reason for exam: PE. TECHNIQUE: Axial computed tomographic angiography images of the chest with intravenous contrast. Automated exposure control was utilized for the study. A dose lowering technique was utilized adhering to the principles of ALARA. MIP reconstructed images were created and reviewed. COMPARISON: CTA Chest dated august 13 2023 FINDINGS: Pulmonary arteries: Motion artifact limits evaluation. Despite this, no evidence of pulmonary embolism within the pulmonary outflow tract or immediate proximal branches. Aorta: Atherosclerotic disease. No thoracic aortic aneurysm. Lungs: Increased burden of ground-glass opacification within the lungs, most prominently within the right middle lobe and upper lobes. These are favored to be infectious in nature. Sequela of alveolar pulmonary edema also possible. Pleural space: Unremarkable. No significant effusion. No pneumothorax. Heart: Unremarkable. No cardiomegaly. No significant pericardial effusion. No evidence of RV dysfunction. Mediastinum: Moderate esophageal hiatal hernia. Esophageal thickening which is favored to be inflammatory nature. Bones/joints: Degenerative changes in the spine. Thoracic spinal fusion hardware. No acute fracture. No dislocation. Soft tissues: Diffuse soft tissue edema suggesting anasarca. Lymph nodes: Unremarkable. No enlarged lymph nodes. Kidneys and ureters: Partially visualized expiratory phase within the dilated left renal collecting system. IMPRESSION: 1. Motion artifact limits evaluation. Despite this, no evidence of pulmonary embolism within the pulmonary outflow tract or immediate proximal branches. 2. Moderate esophageal hiatal hernia. 3. Esophageal thickening which is favored to be inflammatory nature. 4. Increased burden of ground-glass opacification within the lungs, most prominently within the right middle lobe and upper lobes. These are favored to be infectious in nature. Sequela of alveolar pulmonary edema also possible. 5. Diffuse soft tissue edema suggesting anasarca. Electronically signed by: Ryan Duckworth MD 08/15/23 06:43 AM
--- NOTE | 2023-08-15 06:56 | XRay Report ---
XR chest 1V portable CLINICAL HISTORY: increased work of breathing COMPARISON STUDY: Chest radiograph and chest CT August 13, 2023. FINDINGS: Right humeral internal fixation hardware and scoliosis hardware is incidentally noted. Ther e is no pneumothorax. There are trace bilateral pleural effusions. Cardiomediastinal silhouette is st able. Bilateral airspace opacities and interstitial thickening have progressed. IMPRESSION: 1. Progression of interstitial thickening and bilateral airspace opacities. The findings favor pulmon kishan edema however pneumonia could appear similar. 2. Trace bilateral pleural effusions. ACT 112: Negative or not required by law. Electronically signed by: Omar Fisher M.D. 08/15/2023 6:55 AM
--- NOTE | 2023-08-15 08:20 | XRay Report ---
XR chest 1V portable CLINICAL HISTORY: pulm vasc congestion TECHNIQUE: Single frontal radiograph of the chest was obtained. Comparison: Comparison is made to chest radiograph 08/15/2023 FINDINGS: Fixation hardware is seen in the right humerus and thoracic spine. The cardiomediastinal silhouette i s normal. There is prominence and cephalization of the vasculature with Dianne B lines seen. Airspace opacities are seen. No evidence of pleural effusion or pneumothorax. IMPRESSION: Pulmonary edema is seen with multifocal airspace opacities likely representing alveolar edema, with o r without superimposed pneumonia. ACT 112: Negative or not required by law. Electronically signed by: Colt Johnson M.D. 08/15/2023 8:19 AM
--- NOTE | 2023-08-15 08:40 | Infectious Disease Progress Nt ---
Date of Service August 15, 2023 Assessment & Plan (1) Sacral decubitus ulcer: (2) Osteomyelitis: (3) Complicated UTI (urinary tract infection): (4) Right lower lobe consolidation: (5) Paraplegia: Plan 63yo M with h/o T4 paraplegia, neurogenic bladder s/p indwelling [place]arrison and u reteral stents (last stent exchange May 2023), prior h/o UTI/pyelo, asplenia, HTN, HLD who presented on 08/08 with confusion and somnolence. He initially presented to [facility] 08/01 where he was treated with antibiotics and lactulose for elevated ammonia. Patient had improved but became more somnolent and consumed so patient was signed out AMA from [facility] and brought to [facility]. Per chart (urology note), he had sudden onset of pain into flank going down and radiating into groin and back in waves. In the ED, he was hypotensive to 70s which improved with IVFs. Afebrile, on 2-3L NC. WBC 14.3, Cr 0.59. Elevated d dimer. AST/ALT in 50s. CRP 8.47. PCT 0.91. UA with >50 WBC, 3-5 epithelial cells, yeast. CXR negative. CT head neg. CTAP with large stool ball within the distal sigmoid colon and rectum, proximal to this colon is distended and fluid-filled suggesting distal large bowel obstruction 2/2 fecal impaction; c/f stercoral colitis; bl hydroureteronephrosis unchanged; bl urothelial t hickening with bl periureteral edema/fat stranding thats progressed, could be chronic irritation from ureteral stents or infectious pyelitis; findings of possible aspiration PNA in RLL and opacities in lung bases; bl sacral decubitus ulcers with mild erosion of bl ischial tuberosities and coccyx, similar to prior c/w acute on chronic OM. He was admitted with multiple issues and started on empiric abx. Had BM with tx of fecal impaction. Was seen by urology, no plan for intervention, likely stent exchange outpatient. He was seen by surgery and nonoperative chemical debridement advised for sacrum. CXR on 08/12 with mild pulmonary vascular congestion. CTA chest limited, increased bl lower lobe alveolar opacities favoring aspiration, extensive upper lobe GGO favoring infectious etiology, pulmonary edema could appear similar, small bl pleural effusions, left hydronephrosis. WBC initially downtrended, but now up to 16.62. ID consulted 08/13 for sacral OM. UA 08/13 after garrison exchange with >50 WBC. Course c/b hypoxia, increased WOB, and lethargy o/n on 08/13. Patient placed on bipap with improvement. CTA chest negative for PE; moderate esophageal hiatal hernia with esophageal thickening; increased burden of GGO within the lungs most prominently in RML and RUL favoring infectious in nature, sequela of pulmonary edema possible; diffuse soft tissue edema suggesting anasarca. I will keep him on vancomycin and Unasyn. Labs from this morning reviewed. His sacrum was examined today and only minimal redness which could be chronic changes. Regardless, will treat empirically, which includes for UTI, sacrum, and possible PNA given GGO on CT chest. # Acute respiratory distress, hypoxia # GGO in RUL/RML # Sacral ulcers with underlying OM # Bl hydroureteronephrosis with findings of possible chronic irritation of ureteral stents vs infectious pyelitis # Rising leukocytosis # Fecal impaction with stercoral colitis s/p BM - if he produces sputum, then can send cx (but pt notes no productive cough) - continue vancomycin pharmacy dosed protocol - continue Unasyn 3g IV q6h - continue fluconazole 200mg PO daily (QTc 440) - no custodial abx for sacral OM, would only treat for total 2 wks for ?SSTI with PO regimen on dc (same duration for UTI) ID will continue to follow. If questions or concerns, contact Infectious Disease Call Center . Amisha Santana MD [facility], Division of Infectious Diseases [facility]: [phone] Admission and Anticipated Discharge Date Admission Date: August 09, 2023 Subjective Subsequent visit was provided via telemedicine using two-way real-time interactive telecommunication between the patient and the telemedicine provider. For the duration of the visit, the provider was performing the assessment from a different facility than the patient. This includesuse of bluetooth stethoscope forauscultationperformed by the telepresenter that the telemedicine provider can hear if described in the physical exam. Transport Analyst contact information: Please call [facility] Call Center . (Phone Number For Physician Use Only) After establishing a telemedicine visit, patient was: Patient was verified with two unique identifiers, Patient/authorized rep acknowledged consent and understanding and Gave permission to continue telehealth session Time Spent with Patient: Subsequent => 55 min Patient reports shortness of breath. Also endorses chest pain but when asked where, he points to abdomen. He said he had a cough a few days ago but this is better. No nausea or vomiting. He then becomes unclear with his answers to subsequent questions. Seems he may still have right sided back pain. Also with ?pain in sacrum. Physical Exam Physical Exam: General: Awake, alert, no acute distress HEENT: NC/AT, EOMI, mmm Neck: supple Lungs: clear Heart: nl S1/S2, no appreciable murmurs Abdomen: soft, distended, nontender Back: sacrum with ulcers, very mild erythema, areas of black discoloration Ext: no LE edema Skin: as above Results & Data Vital Signs (Past 12 Hours) Vital Signs Temp Pulse Pulse Resp BP Pulse Ox O2 Del Method 08/15/23 07:49 97 H 20 98 BiPAP 08/15/23 07:30 36.8 C 95 H 18 107/61 99 Room Air 08/15/23 03:53 90 26 H 96 08/15/23 03:49 37.0 C 90 20 118/83 94 BiPAP 08/15/23 01:00 BiPAP 08/15/23 00:48 99 H 36 H 98 08/15/23 00:30 94 H 44 H 96/61 L 96 Oxymask 08/14/23 23:45 100/63 08/14/23 23:09 36.9 C 100 H 20 92/61 L 92 Nasal Cannula 08/14/23 22:39 100 H 08/14/23 21:30 Nasal Cannula O2 Flow Rate FiO2 08/15/23 07:49 40 08/15/23 07:30 08/15/23 03:53 40 08/15/23 03:49 40 08/15/23 01:00 08/15/23 00:48 80 08/15/23 00:30 16 08/14/23 23:45 08/14/23 23:09 3 08/14/23 22:39 08/14/23 21:30 3 Laboratory Results Labs reviewed. Diagnostic Findings Imaging reviewed. (1) Sacral decubitus ulcer Pressure injury stage: unspecified pressure injury stage Qualified Code(s): L89.159 - Pressure ulcer of sacral region, unspecified stage
[2023-08-15] MEDS ORDERED: methylPREDNISolone 10 mg/mL (For Ped Dose < 7mg) IV SCH (09:45)
[2023-08-15] MEDS: methylPREDNISolone 60 MG in SYRINGE 0 ML IV SCH (10:27)
[2023-08-15 10:42] LABS: Hematocrit (blood only) 23.9 % (42.0-52.0); Hemoglobin 8.1 g/dl (14.0-18.0); Mean Corpuscular Hemoglobin 29.8 pg (25.0-34.0); Mean Corpuscular Hgb Conc 33.9 g/dL (32.0-36.0); Mean Corpuscular Volume 87.9 fL (80.0-100.0); Mean Platelet Volume 10.5 fL (9.4-12.4); Platelet Count 321 K/uL (130-400); RDW Coefficient of Variation 22.8 % (11.5-14.5); RDW Standard Deviation 71.7 fL (36.4-46.3); Red Blood Count 2.72 M/uL (4.70-6.10); White Blood Count 15.28 K/ul (4.8-10.8)
[2023-08-15 10:58] LABS: BUN Creatinine Ratio 14.7 (10-20); Calcium 6.9 mg/dl (8.6-10.3); Creatinine Clr Calc Pharmacy 95.8 ml/min; Est GFR (African American) 113.9 ml/min; Est GFR (Non-African American) 98.3 ml/min; Potassium 3.4 mmol/L (3.5-5.1)
[2023-08-15 11:02] LABS: Acanthocytes 1+; Anisocytosis Present; Basophils # (auto) 0.02 K/uL (0.00-0.20); Basophils % (auto) 0.1 %; Eosinophils # (auto) 0.01 K/uL (0.00-0.50); Eosinophils % (auto) 0.1 %; Immature Granulocytes # (auto) 0.34 K/uL (0.01-0.20); Immature Granulocytes % (auto) 2.2 %; Lymphocytes # (auto) 0.72 K/uL (1.20-3.40); Lymphocytes % (auto) 4.7 %; Monocytes # (auto) 0.35 K/uL (0.11-0.59); Monocytes % (auto) 2.3 %; Neutrophils # (auto) 13.84 K/uL (1.40-6.50); Neutrophils % (auto) 90.6 %; Pappenheimer Bodies 1+; Polychromasia 1+; Target Cells 2+
[2023-08-15 11:04] LABS: ANTI-Xa, UFH(UnfractionatedHep 0.21 IU/ml (0.3-0.7)
--- NOTE | 2023-08-15 12:08 | Hospitalist Progress Note ---
Date of Service August 15, 2023 Assessment & Plan (1) Sepsis: Plan: Acute sepsis syndrome with associated hypoxic respiratory failure and hypotension present on admission. Fortunately, he improved with IV fluids and appropriate antibiotics and antifungals. No pressor support required. He is now on Diflucan, day 5, and Unasyn, day 4 (2) Abnormal urinalysis: Plan: He has a catheter associated UTI again. 2 species of Cinda isolated along with Enterococcus faecalis. He is now on Unasyn and Diflucan. Appreciate urology consultation and recommendations. He has bilateral ureter stents in place. Urology indicates that these will be exchanged at a later date as an outpatient (3) Acute respiratory failure with hypoxia: Plan: Supplemental oxygen per nasal cannula to maintain saturation greater than 90%. Treat suspected aspiration pneumonitis. D-dimer is elevated but chest CTA x 2 negative for PE although studies are suboptimal. Chest x-ray was read as pulmonary vascular congestion but I think this is an over read. BNP is normal and there is no evidence of cardiomegaly. He has no prior history of CHF. Cardiac echo is pending. Lasix diuresis did not have any significant impact at all. (4) Right lower lobe consolidation: Plan: Seen on prior imaging. He is aspirating and has suspected aspiration pneumonitis. He is now on Unasyn, vancomycin and Diflucan. Parenteral steroid therapy has also been started. (5) Fecal impaction: Plan: Present on admission. Now resolved. Continue current bowel regimen (6) Right ischial pressure sore: Plan: Chronic. With associated osteomyelitis. Continue local care. Wound care consultation appreciated. He does have a WoundVac at home should one be indicated. General surgery consultation appreciated. They indicate no need for debridement at this time. (7) Hypokalemia: Plan: Corrected with potassium supplementation. Serial labs Plan To be determined. He is a candidate for LTAC placement Admission and Anticipated Discharge Date Admission Date: August 09, 2023 Subjective Recurrent respiratory distress last night. I believe he is aspirating. Lung sounds reveal diffuse bilateral rhonchi consistent with aspiration. Chest x-ray was read by radiology as pulmonary vascular congestion but I highly doubt this. BNP is normal and he has no previous history of CHF. Lasix diuresis has not helped at all. Speech therapy evaluation has been requested. IV fluids have been ordered. Head of the bed elevation at 30 degrees at all times for now. Parenteral steroids have been ordered for suspected associated pneumonitis. Will check cardiac echo to evaluate left ventricular function. Although his D- dimer is elevated, chest CTA x 2 have not indicated pulmonary emboli although the studies are suboptimal. Heparin drip has been discontinued Review of Systems 2 Review of Systems: The patient is unable to reliably answer any questions regarding review of systems at this time Physical Exam 2 Physical Exam: General-lethargic and delirious. No fever HEENT-head atraumatic and normocephalic, pupils equal and reactive to light, extraocular muscles intact Neck-no lymphadenopathy or thyromegaly, trachea midline Chest-scattered bilateral rhonchi. No rales or wheezing Cardiac-tachycardic rate and regular rhythm, normal S1 and S2 Abdomen-normal bowel sounds, no hepatosplenomegaly Skinchronic decubitus ulcerations GUchronic Camp catheter in place Extremities-bilateral lower extremities with atrophic changes Neuro-delirious and lethargic. Cannot assess Psych-delirious and lethargic. Cannot assess Results & Data Results & Data Vital Signs (Past 12 Hours) Vital Signs Temp Pulse Pulse Resp BP Pulse Ox O2 Del Method 08/15/23 11:37 37.5 C 98 H 24 104/68 93 Oxymask 08/15/23 11:01 93 H 20 94 Oxymask 08/15/23 07:49 97 H 20 98 BiPAP 08/15/23 07:30 36.8 C 95 H 18 107/61 99 Room Air 08/15/23 03:53 90 26 H 96 08/15/23 03:49 37.0 C 90 20 118/83 94 BiPAP 08/15/23 01:00 BiPAP 08/15/23 00:48 99 H 36 H 98 08/15/23 00:30 94 H 44 H 96/61 L 96 Oxymask O2 Flow Rate FiO2 08/15/23 11:37 6 08/15/23 11:01 7 08/15/23 07:49 40 08/15/23 07:30 08/15/23 03:53 40 08/15/23 03:49 40 08/15/23 01:00 08/15/23 00:48 80 08/15/23 00:30 16 Laboratory Results 08/15/23 10:18 08/15/23 10:18 PG Care Time/CCT Total # of Minutes Spent Total Time Spent with Patient: Total time spent is greater than 50% in coordination of care (as documented) at patient's floor/unit and/or counseling patient: Coding Level of Care Code 56309 SUB INP/OBS CARE 3/50MIN Diagnoses Sepsis with acute hypoxic respiratory failure without septic shock, due to unspecified organism A41.9; R65.20; J96.01 Sepsis type: sepsis due to unspecified organism Sepsis acute organ dysfunction status: with acute organ dysfunction Severe sepsis acute organ dysfunction type: acute respiratory failure Acute respiratory failure type: with hypoxia Severe sepsis shock status: without septic shock Abnormal urinalysis R82.90 Acute respiratory failure with hypoxia J96.01 Right lower lobe consolidation J18.1 Fecal impaction K56.41 Right ischial pressure sore L89.319 Hypokalemia E87.6 (1) Sepsis Sepsis type: sepsis due to unspecified organism Sepsis acute organ dysfunction status: with acute organ dysfunction Severe sepsis acute organ dysfunction type: acute respiratory failure Acute respiratory failure type: w ith hypoxia Severe sepsis shock status: without septic shock Qualified Code(s): A41.9 - Sepsis, unspecified organism; R65.20 - Severe sepsis without septic shock; J96.01 - Acute respiratory failure with hypoxia
[2023-08-15] MEDS: ENOXAPARIN INJ 40 MG/0.4 ML SYR SQ SCH (13:08)
[2023-08-15] MEDS: D5NSS + 20MEQ KCL 20 MEQ/1,000 ML BAG IV SCH (13:09)
--- NOTE | 2023-08-15 13:33 | XCELERA ---
[id number] \\[email or web address]\[id number]
--- NOTE | 2023-08-15 17:10 | XRay Report ---
XR chest 1V portable HISTORY: 63 years-old Male aspiration pneumonitis, hypoxia acute shortness of breath COMPARISON: Chest radiograph of same day at 6:48 AM and CTA chest of same day TECHNIQUE: AP view chest FINDINGS: Cardiac mediastinal and hilar silhouettes are unchanged. Mixed interstitial and alveolar opacities ar e noted diffusely throughout the lungs which have mildly progressed. No pneumothorax. Trace pleural e ffusions. Spinal fusion hardware redemonstrated. IMPRESSION: 1. Persistent progression of the mixed interstitial and alveolar opacities which may represent multif ocal pneumonia versus pulmonary edema. 2. Small pleural effusions. ACT 112: Negative or not required by law. The above report was generated using voice recognition software. It may contain grammatical, syntax o r spelling errors. Electronically signed by: Prateek Garcia M.D. 08/15/2023 5:08 PM
--- NOTE | 2023-08-15 17:38 | Electrocardiogram Report ---
Test Reason : Blood Pressure : / mmHG Vent. Rate : 093 BPM Atrial Rate : 093 BPM P-R Int : 156 ms QRS Dur : 120 ms QT Int : 380 ms P-R-T Axes : 044 -44 021 degrees QTc Int : 472 ms Normal sinus rhythm Possible Left atrial enlargement Left axis deviation Right bundle branch block Abnormal ECG When compared with ECG of 09-AUG-2023 16:58, Right bundle branch block has replaced Incomplete right bundle branch block T wave inversion now evident in Anterior leads Confirmed by Martin Franco ([id number]) on 08/15/2023 5:38:38 PM Referred By: REFERRED SELF Confirmed By:Dhaval Franco
[2023-08-15 20:16] LABS: Appearance Urine Cloudy (Clear); Bilirubin Urine Negative (Negative); Blood Urine 3+ (Negative); Color Urine Red; Glucose Urine UA Negative (Negative); Ketones Urine Negative (Negative); Leukocyte Esterase Urine 1+ (Negative); Nitrite Urine Negative (Negative); Protein Urine 2+ (Negative); Specific Gravity Urine 1.015 (1.000-1.030); Urobilinogen Urine Negative (Negative)
[2023-08-15 20:17] LABS: RBC Urine >20 /hpf (0-2)
[2023-08-15 20:20] LABS: Bacteria Urine 1+ (None Seen); WBC Urine >50 /hpf (0-5)
[2023-08-15 20:57] LABS: Base Excess ABG -3.4 mEq/L (-9-1.8); HCO3 ABG 18 mmol/L (19-24); Oxygen Saturation ABG 93.6 % (90-95); PCO2 ABG 22 mmHg (35-46); PO2 ABG 70 mmHg (80-95)
[2023-08-15 21:04] LABS: Allen Test Pos (Pos)
[2023-08-15 21:07] LABS: pH ABG 7.51 (7.35-7.45)
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
[2023-08-15 23:57] LABS: Hematocrit (blood only) 25.5 % (42.0-52.0); Hemoglobin 8.6 g/dl (14.0-18.0); Mean Corpuscular Hemoglobin 30.2 pg (25.0-34.0); Mean Corpuscular Hgb Conc 33.7 g/dL (32.0-36.0); Mean Corpuscular Volume 89.5 fL (80.0-100.0); Mean Platelet Volume 10.6 fL (9.4-12.4); Nucleated RBC # (auto) 0.02 K/uL (0.00-0.12); Nucleated RBC % (auto) 0.1 %; Platelet Count 346 K/uL (130-400); RDW Coefficient of Variation 22.5 % (11.5-14.5); Red Blood Count 2.85 M/uL (4.70-6.10); White Blood Count 14.68 K/ul (4.8-10.8)
[2023-08-16 00:12] LABS: BUN Creatinine Ratio 14.5 (10-20); Calcium 7.1 mg/dl (8.6-10.3); Creatinine Clr Calc Pharmacy 94.5 ml/min; Est GFR (African American) 113.3 ml/min; Est GFR (Non-African American) 97.8 ml/min; Magnesium 2.1 mg/dl (1.7-2.4); Phosphorus 1.9 mg/dl (2.5-4.9); Potassium 3.9 mmol/L (3.5-5.1)
[2023-08-16 00:24] LABS: Anisocytosis Present; Basophils # (auto) 0.02 K/uL (0.00-0.20); Basophils % (auto) 0.1 %; Immature Granulocytes # (auto) 0.14 K/uL (0.01-0.20); Lymphocytes # (auto) 0.47 K/uL (1.20-3.40); Lymphocytes % (auto) 3.2 %; Monocytes # (auto) 0.26 K/uL (0.11-0.59); Monocytes % (auto) 1.8 %; Neutrophils # (auto) 13.79 K/uL (1.40-6.50); Neutrophils % (auto) 93.9 %; Pappenheimer Bodies 1+; Polychromasia 1+; Target Cells 2+
[2023-08-16 01:09] LABS: Adenovirus PCR Not Detected (NotDetected); Bordetella parapertussis PCR Not Detected (NotDetected); Bordetella pertussis PCR Not Detected (NotDetected); Chlamydia pneumoniae PCR Not Detected (NotDetected); Coronavirus 229E PCR Not Detected (NotDetected); Coronavirus CoV-2 (COVID19)PCR Not Detected (NotDetected); Coronavirus HKU1 PCR Not Detected (NotDetected); Coronavirus NL63 PCR Not Detected (NotDetected); Coronavirus OC43PCR Not Detected (NotDetected); Human Metapneumovirus PCR DETECTED (NotDetected); Influenza A PCR Not Detected (NotDetected); Influenza B PCR Not Detected (NotDetected); Mycoplasma pneumoniae PCR Not Detected (NotDetected); Parainfluenza Virus 1 PCR Not Detected (NotDetected); Parainfluenza Virus 2 PCR Not Detected (NotDetected); Parainfluenza Virus 3 PCR Not Detected (NotDetected); Parainfluenza Virus 4 PCR Not Detected (NotDetected); Respiratory Syncytial VirusPCR Not Detected (NotDetected); Rhinovirus/Enterovirus PCR Not Detected (NotDetected)
[2023-08-16] MEDS: OLANZapine 10 MG/2.1 ML SDV IM STA (01:26)
[2023-08-16 05:19] LABS: Hematocrit (blood only) 22.7 % (42.0-52.0); Hemoglobin 7.6 g/dl (14.0-18.0); Mean Corpuscular Hemoglobin 29.6 pg (25.0-34.0); Mean Corpuscular Hgb Conc 33.5 g/dL (32.0-36.0); Mean Corpuscular Volume 88.3 fL (80.0-100.0); Mean Platelet Volume 10.6 fL (9.4-12.4); Nucleated RBC # (auto) 0.03 K/uL (0.00-0.12); Nucleated RBC % (auto) 0.2 %; Platelet Count 308 K/uL (130-400); RDW Coefficient of Variation 22.1 % (11.5-14.5); RDW Standard Deviation 69.4 fL (36.4-46.3); Red Blood Count 2.57 M/uL (4.70-6.10); White Blood Count 15.31 K/ul (4.8-10.8)
[2023-08-16 05:31] LABS: BUN Creatinine Ratio 16.2 (10-20); Calcium 6.9 mg/dl (8.6-10.3); Creatinine Clr Calc Pharmacy 105.6 ml/min; Est GFR (African American) 118.6 ml/min; Est GFR (Non-African American) 102.4 ml/min; Potassium 3.4 mmol/L (3.5-5.1)
[2023-08-16 05:35] LABS: Albumin Level 1.6 gm/dl (3.4-5.0); Bilirubin Direct 0.2 mg/dl (0-0.2); Bilirubin,Total 0.4 mg/dl (0.2-1.0); Phosphorus 1.5 mg/dl (2.5-4.9); Total Protein 4.7 gm/dl (6.0-8.3)
[2023-08-16] MEDS ORDERED: POTASSIUM PHOS 3 MMOL/1 ML INFUSION IV STA (05:48)
[2023-08-16] MEDS: POTASSIUM PHOSPHATE 40 MMOL in SODIUM CHLORIDE 0.9% 1,000 ML IV ONE (06:23)
[2023-08-16] MEDS: DEXTROSE 5% 1,000 ML IV SCH (06:23)
[2023-08-16 06:36] LABS: Anisocytosis Present; Basophils # (auto) 0.02 K/uL (0.00-0.20); Basophils % (auto) 0.1 %; Immature Granulocytes # (auto) 0.29 K/uL (0.01-0.20); Immature Granulocytes % (auto) 1.9 %; Lymphocytes # (auto) 0.57 K/uL (1.20-3.40); Lymphocytes % (auto) 3.7 %; Monocytes # (auto) 0.37 K/uL (0.11-0.59); Monocytes % (auto) 2.4 %; Neutrophils # (auto) 14.06 K/uL (1.40-6.50); Neutrophils % (auto) 91.9 %; Pappenheimer Bodies 1+; Polychromasia 1+; Target Cells 2+
--- NOTE | 2023-08-16 07:13 | XRay Report ---
XR chest 1V portable HISTORY: 63 years-old Male Resp failure acute respiratory failure COMPARISON: 08/15/2023 TECHNIQUE: AP view of the chest FINDINGS: Cardiomediastinal and hilar silhouettes are unchanged. Mixed interstitial and alveolar opacities rede monstrated which have mildly improved. No pneumothorax. Probable trace pleural effusions. Spinal fusi on hardware redemonstrated. IMPRESSION: Mild improvement of the mixed interstitial and alveolar opacities suggestive of improved pulmonary edema. ACT 112: Negative or not required by law. The above report was generated using voice recognition software. It may contain grammatical, syntax o r spelling errors. Electronically signed by: Prateek Garcia M.D. 08/16/2023 7:12 AM
--- NOTE | 2023-08-16 07:33 | XRay Report ---
XR chest 1V portable HISTORY: 63 years-old Male respiratory failure, suspected asp pneumonitis acute respiratory failure COMPARISON: 08/15/2023 at 4:55 PM TECHNIQUE: AP view of the chest FINDINGS: Cardiomediastinal and hilar silhouettes are unchanged. Mixed interstitial and alveolar opacities rede monstrated which are mildly worsened. No pneumothorax. Probable trace pleural effusions. Spinal fusio n hardware redemonstrated. IMPRESSION: Mildly worsened mixed interstitial and alveolar opacities suggestive of pulmonary edema. ACT 112: Negative or not required by law. The above report was generated using voice recognition software. It may contain grammatical, syntax o r spelling errors. Electronically signed by: Prateek Garcia M.D. 08/16/2023 7:32 AM
--- NOTE | 2023-08-16 08:04 | Critical Care Progress Note ---
Date of Service August 16, 2023 Assessment & Plan (1) Acute respiratory failure with hypoxia: (2) Pressure ulcer of ischium, stage 4: (3) Osteomyelitis: (4) Anemia: (5) Metabolic encephalopathy: (6) UTI (urinary tract infection): (7) Hypertension: (8) Hyperlipidemia: Plan Impression: 63-year-old male With paraplegia and extensive past medical history presents to the ICU with worsening hypoxia and sepsis from multiple potential sources. Now requiring CPAP. Neuro - Metabolic encephalopathy CT head 08/08 without acute intracranial findings. - Likely due to underlying sepsis/UTI - Ammonia within normal limits - BUN within normal limits -Monitor for now Cardiac - Currently hemodynamically stable without need for vasopressor support. Was initially hypotensive on admission but responded with fluid resuscitation. TTE with normal EF. Respiratory - Acute hypoxic respiratory failurelikely due to underlying multilobar pneumonia. - BNP within normal limits and TTE normal as well - Oxygenation significantly improved with CPAP. Will wean as tolerated No peripheral eosinophilia CTA chest 08/15/2023 personally reviewed: Diffuse patchy groundglass opacities appreciated bilaterally in the upper lobes Dependent atelectasis of the right lower lobe Minimal bilateral pleural effusion GI - N.p.o. for now RENAL/LYTES - -- Hypernatremia with hyperchloremia Likely from getting IV fluids Will try to change all the antibiotics to D5 Monitor BUNs/creatinine Avoid nephrotoxic medications - Chronic hydronephrosis with bilateral ureteral stents Along with neurogenic bladder. Last exchanged in May. Evidence of pyelitis on CT abdomen and currently undergoing treatment for UTI. Urology consulted and no intervention recommended at this time. Continue to monitor strict I's and O's with Camp catheter. --Hematuria Urology on board ENDO - ICU hypoglycemia protocol HEME - -- Normocytic anemia Monitor H&H, transfuse for hemoglobin less than 7. Monitor routine CBC ID - Sepsis Multiple potential sources with possible underlying pneumonia, UTI/pyelitis, stage IV pressure ulcer/osteomyelitis. - Urine culture Positive for yeast -Nasal MRSA positive -Respiratory bio fire positive for human Croton pneumo virus, negative for everything else, procalcitonin 1.09 - Continue Fluconazole, vancomycin, Unasyn, ID on board --Prophylaxis VTE IPC GI: None Lines: Peripheral Diet: N.p.o. Plan: In/out: +2.3 L, urine output 1102 Potassium and phosphorus being replaced Continue with antibiotics as per infectious disease. For the altered mental status consideration for LP could be thought of although it will be difficult given the stage IV decubitus ulcer with wound VAC For hyper natremia we will try to change all the IV fluids to D5 and even antibiotics to be mixed in D5 possible Keep the patient euvolemic and negative balance Recommend CPAP nightly. Do recommend palliative care consult Stable to be downgrade to medical floor Please note the above document was generated using voice recognition software. It may contain grammatical, syntax or spelling errors.Any formal questions or concerns about the content, text or information contained within the body of this dictation should be directly addressed to the provider for clarification. Admission and Anticipated Discharge Date Admission Date: August 09, 2023 Subjective Patient seen and examined at bedside. No acute distress. Overnight after CPAP is oxygenation significantly improved. At the time of examination he was on 4 L saturating 95 to 96%. He is awake alert to only self. Does follow commands. Answers yes to almost all the questions. Review of Systems 2 Review of Systems: Unobtainable due to cognitive status Physical Exam 2 Physical Exam: Constitutional: No acute distress HEENT: EOMI, PERRLA Respiratory system: Decreased air entry bilaterally, no wheeze, rhonchi, positive crackles appreciated bilaterally CVS: S1-S2 positive, no murmurs or gallops Abdomen: Soft, nontender, nondistended, positive bowel sounds x4 Extremities: +2 pulses bilaterally radialis/ dorsalis pedis, no cyanosis, +2 pitting edema bilateral lower extremity Neuro: Awake, alert, oriented to self Psych: Flat mood and affect G/U: Positive Camp Skin: Stage IV decubital ulcer with wound VAC in place Lymphatic: no cervical or axillary lymphadenopathy Results & Data Results & Data Vital Signs (Past 12 Hours) Vital Signs Temp Pulse Pulse Resp BP BP Pulse Ox 08/16/23 07:37 87 16 100 08/16/23 07:30 08/16/23 07:00 36.7 C 94 H 22 149/92 H 99 08/16/23 06:03 36.7 C 95 H 30 H 146/91 H 94 08/16/23 05:06 36.7 C 92 H 35 H 96 08/16/23 04:03 36.7 C 95 H 33 H 99 08/16/23 04:00 152/93 H 08/16/23 03:54 36.7 C 97 H 29 H 96 08/16/23 03:34 98 H 32 H 100 08/16/23 03:09 36.6 C 94 H 40 H 98 08/16/23 02:10 92 H 08/16/23 02:00 36.6 C 94 H 37 H 94 08/16/23 01:03 36.6 C 93 H 36 H 97 08/16/23 01:01 89/69 L 08/16/23 01:00 36.5 C 92 H 36 H 99 08/16/23 00:09 36.6 C 95 H 29 H 96 08/15/23 23:39 85 30 H 98 08/15/23 23:01 115/71 08/15/23 23:00 08/15/23 23:00 36.8 C 96 H 26 H 81 L 08/15/23 22:36 99 H 47 H 87 L 08/15/23 22:35 128/86 08/15/23 20:24 37.4 C 96 H 20 113/72 93 O2 Del Method FiO2 08/16/23 07:37 BiPAP 30 08/16/23 07:30 CPAP 30 08/16/23 07:00 CPAP 30 08/16/23 06:03 08/16/23 05:06 08/16/23 04:03 08/16/23 04:00 08/16/23 03:54 08/16/23 03:34 30 08/16/23 03:09 08/16/23 02:10 08/16/23 02:00 08/16/23 01:03 08/16/23 01:01 08/16/23 01:00 08/16/23 00:09 40 08/15/23 23:39 30 08/15/23 23:01 08/15/23 23:00 CPAP 40 08/15/23 23:00 08/15/23 22:36 08/15/23 22:35 08/15/23 20:24 Oxymask Laboratory Results 08/16/23 04:53 08/16/23 04:53 Coding Level of Care Code 13431 SUB INP/OBS CARE 3/50MIN Diagnoses Acute respiratory failure with hypoxia J96.01 Pressure ulcer of ischium, stage 4 L89.304 Osteomyelitis M86.9 Anemia D64.9 Metabolic encephalopathy G93.41 UTI (urinary tract infection) N39.0 Hypertension I10 Hyperlipidemia E78.5
[2023-08-16] MEDS: MAGNESIUM SULFATE / D5W 1 GM/100 ML BAG IV ONE (08:40)
--- NOTE | 2023-08-16 09:06 | Infectious Disease Progress Nt ---
Date of Service August 16, 2023 Assessment & Plan (1) Sacral decubitus ulcer: (2) Osteomyelitis: (3) Complicated UTI (urinary tract infection): (4) Right lower lobe consolidation: (5) Paraplegia: Plan 63yo M with h/o T4 paraplegia, neurogenic bladder s/p indwelling Garrison and u reteral stents (last stent exchange May 2023), prior h/o UTI/pyelo, asplenia, HTN, HLD who presented on 08/08 with confusion and somnolence. He initially presented to [facility] 08/01 where he was treated with antibiotics and lactulose for elevated ammonia. Patient had improved but became more somnolent and consumed so patient was signed out AMA from [facility] and brought to [facility]. Per chart (urology note), he had sudden onset of pain into flank going down and radiating into groin and back in waves. In the ED, he was hypotensive to 70s which improved with IVFs. Afebrile, on 2-3L NC. WBC 14.3, Cr 0.59. Elevated d dimer. AST/ALT in 50s. CRP 8.47. PCT 0.91. UA with >50 WBC, 3-5 epithelial cells, yeast. CXR negative. CT head neg. CTAP with large stool ball within the distal sigmoid colon and rectum, proximal to this colon is distended and fluid-filled suggesting distal large bowel obstruction 2/2 fecal impaction; c/f stercoral colitis; bl hydroureteronephrosis unchanged; bl urothelial t hickening with bl periureteral edema/fat stranding thats progressed, could be chronic irritation from ureteral stents or infectious pyelitis; findings of possible aspiration PNA in RLL and opacities in lung bases; bl sacral decubitus ulcers with mild erosion of bl ischial tuberosities and coccyx, similar to prior c/w acute on chronic OM. He was admitted with multiple issues and started on empiric abx. Had BM with tx of fecal impaction. Was seen by urology, no plan for intervention, likely stent exchange outpatient. He was seen by surgery and nonoperative chemical debridement advised for sacrum. CXR on 08/12 with mild pulmonary vascular congestion. CTA chest limited, increased bl lower lobe alveolar opacities favoring aspiration, extensive upper lobe GGO favoring infectious etiology, pulmonary edema could appear similar, small bl pleural effusions, left hydronephrosis. WBC initially downtrended, but now up to 16.62. ID consulted 08/13 for sacral OM. UA 08/13 after garrison exchange with >50 WBC. Course c/b hypoxia, increased WOB, and lethargy o/n on 08/13-08/14. Patient placed on bipap with improvement. CTA chest negative for PE; moderate esophageal hiatal hernia with esophageal thickening; increased burden of GGO within the lungs most prominently in RML and RUL favoring infectious in nature, sequela of pulmonary edema possible; diffuse soft tissue edema suggesting anasarca. PCT 1.03. Lactate 2.8. D dimer 1020. RPP with Human metapneumovirus. Continuing on current antimicrobials along with supportive care for viral infection. Vanc and Unasyn to cover lung and sacrum. Fluconazole also to cover complicated urine since it was significant growth in setting of ureteral stents, CT findings, and repeat UA after garrison change with Cinda. No plans for prolonged treatment of sacral OM since no surgical intervention is planned and antibiotics alone are not sufficient for cure. # Acute respiratory failure with hypoxia # Human metapneumovirus infection # c/f aspiration PNA # Sacral ulcers with underlying OM # Bl hydroureteronephrosis with findings of possible chronic irritation of ureteral stents vs infectious pyelitis # Fecal impaction with stercoral colitis s/p BM - supportive care for viral infection - f/u UCx from 08/13 (done after garrison changed) - continue vancomycin pharmacy dosed protocol - continue Unasyn 3g IV q6h - continue fluconazole 200mg PO daily (QTc 440) - no remote computer terminal operator abx for sacral OM, would only treat for 2 wks for ?SSTI with PO regimen on dc (same duration for UTI) abx started 08/08 ID will continue to follow. If questions or concerns, contact Infectious Disease Call Center . Amisha Santana MD [facility], Division of Infectious Diseases [facility]: [phone] Admission and Anticipated Discharge Date Admission Date: August 09, 2023 Subjective Subsequent visit was provided via telemedicine using two-way real-time interactive telecommunication between the patient and the telemedicine provider. For the duration of the visit, the provider was performing the assessment from a different facility than the patient. This includesuse of bluetooth stethoscope forauscultationperformed by the telepresenter that the telemedicine provider can hear if described in the physical exam. [employer] contact information: Please call [facility] Call Center [phone]. (Phone Number For Physician Use Only) After establishing a telemedicine visit, patient was: Patient was verified with two unique identifiers, Patient/authorized rep acknowledged consent and understanding and Gave permission to continue telehealth session Time Spent with Patient: Subsequent => 55 min Patient not answering questions directly. Denies abdominal pain or chest pain. Not having a productive cough. Physical Exam Physical Exam: General: Awake, no acute distress HEENT: mmm Neck: supple Lungs: breathing comfortably, Abdomen: soft, nontender Back: sacral wound vac with miminal drainage Ext: pedal edema, shallow ulcer on foot Skin: as above Results & Data Vital Signs (Past 12 Hours) Vital Signs Temp Pulse Pulse Resp BP Pulse Ox O2 Del Method 08/16/23 07:37 87 16 100 BiPAP 08/16/23 07:30 CPAP 08/16/23 07:00 36.7 C 94 H 22 149/92 H 99 CPAP 08/16/23 06:03 36.7 C 95 H 30 H 146/91 H 94 08/16/23 05:06 36.7 C 92 H 35 H 96 08/16/23 04:03 36.7 C 95 H 33 H 99 08/16/23 04:00 152/93 H 08/16/23 03:54 36.7 C 97 H 29 H 96 08/16/23 03:34 98 H 32 H 100 08/16/23 03:09 36.6 C 94 H 40 H 98 08/16/23 02:10 92 H 08/16/23 02:00 36.6 C 94 H 37 H 94 08/16/23 01:03 36.6 C 93 H 36 H 97 08/16/23 01:01 89/69 L 08/16/23 01:00 36.5 C 92 H 36 H 99 08/16/23 00:09 36.6 C 95 H 29 H 96 08/15/23 23:39 85 30 H 98 08/15/23 23:01 115/71 08/15/23 23:00 CPAP 08/15/23 23:00 36.8 C 96 H 26 H 81 L 06/13/24 22:36 99 H 47 H 87 L 08/15/23 22:35 128/86 FiO2 08/16/23 07:37 30 08/16/23 07:30 30 08/16/23 07:00 30 08/16/23 06:03 08/16/23 05:06 08/16/23 04:03 08/16/23 04:00 08/16/23 03:54 08/16/23 03:34 30 08/16/23 03:09 08/16/23 02:10 08/16/23 02:00 08/16/23 01:03 08/16/23 01:01 08/16/23 01:00 08/16/23 00:09 40 08/15/23 23:39 30 08/15/23 23:01 08/15/23 23:00 40 08/15/23 23:00 08/15/23 22:36 08/15/23 22:35 Laboratory Results Labs reviewed. Diagnostic Findings Imaging reviewed. (1) Sacral decubitus ulcer Pressure injury stage: unspecified pressure injury stage Qualified Code(s): L89.159 - Pressure ulcer of sacral region, unspecified stage
[2023-08-16] MEDS ORDERED: methylPREDNISolone 10 mg/mL (For Ped Dose < 7mg) IV SCH (11:00)
[2023-08-16] MEDS: D5W AND 1/2NSS + 20MEQ KCL 20 MEQ/1,000 ML BAG IV SCH (11:16)
[2023-08-16] MEDS: methylPREDNISolone 60 MG in SYRINGE 0 ML IV SCH (11:35)
[2023-08-16] MEDS: VANCOMYCIN LEVEL ONE (11:36)
--- NOTE | 2023-08-16 12:40 | Pharmacy Report ---
Pharmacy PK ABX Note - Date of Service August 16, 2023 - Assessment and Plan Assessment 08/15: Vancomycin, Unasyn and fluconazole to continue per ID. Per rn urology, vancomycin diluent changes to dextrose given uptrending sodium. Urine cx from 08/13 also grew cinda albicans/dubliniensis. 08/13: Vancomycin restarted today empirically for pulmonary coverage in light of positive MRSA nasal swab and increasing WBC count. ID consulted and recommending vancomycin, Unasyn, and fluconazole at this time. Last dose of prior vancomycin regimen was on 08/09. Background from 08/10/23: 63 year old M who presented with hypoxic respiratory failure and hypotension. It was receiving treatment at another facility for the past 8 days. Started on empiric vancomycin, cefepime and metronidazole. Potential sources of infection include HAP/aspiration pneumonia and UTI. R ischial pressure sore with significant skin breakdown and chronic osteomyelitis. h/o T4 paraplegia, indwelling Camp catheter, asplenia, HTN, HLP, GERD, depression and ureteral stent. Extensive ID history including Acinetobacter (2022), MRSA (2021), MDR Pseudomonas (urine-2020) and several others Patient was given a vanco loading dose in the ER. A random level was obtained prior to re-dosing given patient was being treated at an outside facility (uncertain if patient received vanco there). Random level resulted at 20.5 mcg/mL. Pertinent microbiologic data includes: Positive MRSA Nasal Swab BC x 2: no growth at 48 hours UC: Enterococcus faecalis (penicillin sensitive) and Cinda albicans/dubliniensis Plan Vancomycin * Current regimen: 750 mg IV every 12 hours * Trough level obtained 08/16/23 resulted as 18.3 mcg/mL. This is predicted to achieve target AUC/KONSTANTIN of 400-600 mg/L.hr * Predicted AUC at steady state: 502 mg/L.hr * Continue 750 mg IV every 12 hours * Will repeat level in the next 48-72 hours if therapy is continued and/or change in patient clinical status Pharmacy will continue to follow and will adjust dose/frequency as necessary. Thank you. Pharmacy has transitioned to AUC monitoring for vancomycin. AUC/KONSTANTIN is the preferred PK/PD target and is associated with decreased risk of nephrotoxicity compared to traditional trough targets.
[2023-08-16] MEDS: VANCOMYCIN HCL 750 MG in DEXTROSE 5% 250 ML IV SCH (13:00)
[2023-08-16 16:11] LABS: BUN Creatinine Ratio 16.3 (10-20); Creatinine Clr Calc Pharmacy 90.2 ml/min; Est GFR (Non-African American) 95.7 ml/min; Potassium 4.4 mmol/L (3.5-5.1)
--- NOTE | 2023-08-16 16:46 | Hospitalist Progress Note ---
Date of Service August 16, 2023 Assessment & Plan (1) Sepsis: Plan: Acute sepsis syndrome with associated hypoxic respiratory failure and hypotension present on admission. Fortunately, he improved with IV fluids and appropriate antibiotics and antifungals. No pressor support required. He is now on Diflucan, day 6, and Unasyn, day 5 (2) Abnormal urinalysis: Plan: He has a catheter associated UTI again. 2 species of Cinda isolated along with Enterococcus faecalis. He is now on Unasyn and Diflucan. Appreciate urology consultation and recommendations. He has bilateral ureter stents in place. Urology indicates that these will be exchanged at a later date as an outpatient (3) Acute respiratory failure with hypoxia: Plan: Oxygen requirements increased considerably last evening, August 14. Chest x-ray was consistent with ARDS and he was transferred to the ICU. Parenteral steroids were started and I believe this has helped more than anything. Chest x-ray today, August 15, looks better and oxygen requirements have decreased considerably. Continue to treat suspected aspiration pneumonitis. D-dimer is elevated but chest CTA x 2 negative for PE although studies are suboptimal. Chest x-ray was read as pulmonary vascular congestion but I think this is an over read. BNP is normal and there is no evidence of cardiomegaly. He has no prior history of CHF. Cardiac echo reveals normal left ventricular systolic function. Lasix diuresis did not have any significant impact at all. He is now receiving IV fluids (4) Right lower lobe consolidation: Plan: Seen on prior imaging. He is aspirating and has suspected aspiration pneumonitis. He is now on Unasyn, vancomycin and Diflucan. Parenteral steroid therapy seems to be helping quite a bit and will be continued (5) Fecal impaction: Plan: Present on admission. Now resolved. Continue current bowel regimen (6) Right ischial pressure sore: Plan: Chronic. With associated osteomyelitis. Continue local care. Wound care consultation appreciated. He does have a WoundVac at home should one be indicated. General surgery consultation appreciated. They indicate no need for debridement at this time. (7) Hypokalemia: Plan: Corrected with potassium supplementation. Serial labs Plan To be determined. He is a candidate for LTAC placement Admission and Anticipated Discharge Date Admission Date: August 09, 2023 Subjective Awake and alert. He remains disoriented however. He was transferred to the ICU last night due to poorly responsive state and increased oxygen requirements. I highly doubt he has pulmonary fluid overload since there was no beneficial response to Lasix diuresis, BNP is normal, cardiac echo reveals normal left ventricular function, and he has no prior history of CHF. He is now on IV fluids and overall he has improved. Oxygen requirements are down considerably. I believe his chest x-ray appearance can be attributed to bilateral pneumonitis from recurrent aspiration. I believe that the parenteral steroid therapy has helped more than anything. I spoke to his , Anny, by phone earlier today. She is aware of what is going on. She understands that he may need LTAC placement and is going to be hospitalized through the weekend. Review of Systems 2 Review of Systems: The patient disorient and unable to reliably answer any questions regarding review of systems at this time Physical Exam 2 Physical Exam: General-awake but disoriented. No fever HEENT-head atraumatic and normocephalic, pupils equal and reactive to light, extraocular muscles intact Neck-no lymphadenopathy or thyromegaly, trachea midline Chest-fever bilateral rhonchi. No wheezing. No inspiratory rales Cardiac-regular rate and rhythm, normal S1 and S2 Abdomen-normal bowel sounds, no hepatosplenomegaly Skinchronic decubitus ulcerations GUchronic Camp catheter in place with some hematuria noted Extremities-bilateral lower extremities with atrophic changes Neuro-moving all extremities. Awake. No apparent focal deficits Psych-delirious. Cannot assess Results & Data Results & Data Vital Signs (Past 12 Hours) Vital Signs Temp Pulse Pulse Resp BP Pulse Ox O2 Del Method 08/16/23 14:55 Nasal Cannula 08/16/23 14:07 88 28 H 96 Nasal Cannula 08/16/23 14:06 36.4 C L 87 28 H 153/95 H 100 Nasal Cannula 08/16/23 13:00 36.3 C L 92 H 33 H 147/101 H 92 Nasal Cannula 08/16/23 12:00 36.4 C L 95 H 34 H 112/96 96 Oxymask 08/16/23 11:06 36.4 C L 93 H 34 H 138/94 94 Oxymask 08/16/23 10:17 92 H 26 H 94 Oxymask 08/16/23 10:00 36.6 C 89 32 H 134/90 97 Oxymask 08/16/23 09:03 36.6 C 95 H 37 H 111/77 95 Oxymask 08/16/23 08:03 36.7 C 100 H 35 H 143/88 H 94 Oxymask 08/16/23 07:37 87 16 100 BiPAP 08/16/23 07:30 CPAP 08/16/23 07:00 36.7 C 94 H 22 149/92 H 99 CPAP 08/16/23 06:03 36.7 C 95 H 30 H 146/91 H 94 08/16/23 05:06 36.7 C 92 H 35 H 96 O2 Flow Rate FiO2 08/16/23 14:55 4 08/16/23 14:07 4 08/16/23 14:06 4 08/16/23 13:00 4 08/16/23 12:00 4 08/16/23 11:06 4 08/16/23 10:17 4 08/16/23 10:00 4 08/16/23 09:03 4 08/16/23 08:03 4 08/16/23 07:37 30 08/16/23 07:30 30 08/16/23 07:00 30 08/16/23 06:03 08/16/23 05:06 Laboratory Results 08/16/23 04:53 08/16/23 15:13 PG Care Time/CCT Total # of Minutes Spent Total Time Spent with Patient: Total time spent is greater than 50% in coordination of care (as documented) at patient's floor/unit and/or counseling patient: Coding Level of Care Code 33323 SUB INP/OBS CARE 3/50MIN Diagnoses Sepsis with acute hypoxic respiratory failure without septic shock, due to unspecified organism A41.9; R65.20; J96.01 Sepsis type: sepsis due to unspecified organism Sepsis acute organ dysfunction status: with acute organ dysfunction Severe sepsis acute organ dysfunction type: acute respiratory failure Acute respiratory failure type: with hypoxia Severe sepsis shock status: without septic shock Abnormal urinalysis R82.90 Acute respiratory failure with hypoxia J96.01 Right lower lobe consolidation J18.1 Fecal impaction K56.41 Right ischial pressure sore L89.319 Hypokalemia E87.6 (1) Sepsis Sepsis type: sepsis due to unspecified organism Sepsis acute organ dysfunction status: with acute organ dysfunction Severe sepsis acute organ dysfunction type: acute respiratory failure Acute respiratory failure type: w ith hypoxia Severe sepsis shock status: without septic shock Qualified Code(s): A41.9 - Sepsis, unspecified organism; R65.20 - Severe sepsis without septic shock; J96.01 - Acute respiratory failure with hypoxia
[2023-08-17 05:30] LABS: Hematocrit (blood only) 22.1 % (42.0-52.0); Hemoglobin 7.6 g/dl (14.0-18.0); Mean Corpuscular Hemoglobin 29.8 pg (25.0-34.0); Mean Corpuscular Hgb Conc 34.4 g/dL (32.0-36.0); Mean Corpuscular Volume 86.7 fL (80.0-100.0); Mean Platelet Volume 10.7 fL (9.4-12.4); Nucleated RBC # (auto) 0.08 K/uL (0.00-0.12); Nucleated RBC % (auto) 0.5 %; Platelet Count 307 K/uL (130-400); RDW Coefficient of Variation 22.2 % (11.5-14.5); RDW Standard Deviation 68.7 fL (36.4-46.3); Red Blood Count 2.55 M/uL (4.70-6.10); White Blood Count 17.32 K/ul (4.8-10.8)
[2023-08-17 05:46] LABS: BUN Creatinine Ratio 15.9 (10-20); Calcium 6.7 mg/dl (8.6-10.3); Est GFR (African American) 117.9 ml/min; Est GFR (Non-African American) 101.7 ml/min; Phosphorus 3.2 mg/dl (2.5-4.9); Potassium 4.5 mmol/L (3.5-5.1)
[2023-08-17 05:58] LABS: Anisocytosis Present; Basophils # (auto) 0.02 K/uL (0.00-0.20); Basophils % (auto) 0.1 %; Immature Granulocytes # (auto) 0.18 K/uL (0.01-0.20); Lymphocytes # (auto) 0.41 K/uL (1.20-3.40); Lymphocytes % (auto) 2.4 %; Monocytes # (auto) 0.29 K/uL (0.11-0.59); Monocytes % (auto) 1.7 %; Neutrophils # (auto) 16.42 K/uL (1.40-6.50); Neutrophils % (auto) 94.8 %; Pappenheimer Bodies 1+; Target Cells 1+
--- NOTE | 2023-08-17 10:56 | XRay Report ---
XR chest 1V portable HISTORY: 63 years-old Male hypoxic resp failure, pneumonitis acute shortness of breath COMPARISON: 08/16/2023 TECHNIQUE: AP view of the chest FINDINGS: Cardiomediastinal and hilar silhouettes are unchanged. Mixed interstitial and alveolar opacities rede monstrated, stable to mildly worsened. No pneumothorax. Probable trace pleural effusions. Spinal fusi on hardware redemonstrated. Hardware noted within the right proximal humerus. IMPRESSION: Stable to mildly worsened diffuse mixed interstitial and alveolar opacities. ACT 112: Negative or not required by law. The above report was generated using voice recognition software. It may contain grammatical, syntax o r spelling errors. Electronically signed by: Prateek Garcia M.D. 08/17/2023 10:55 AM
--- NOTE | 2023-08-17 13:55 | Hospitalist Progress Note ---
Date of Service August 17, 2023 Assessment & Plan (1) Sepsis: Plan: Acute sepsis syndrome with associated hypoxic respiratory failure and hypotension present on admission. Fortunately, he improved with IV fluids and appropriate antibiotics and antifungals. No pressor support required. He is now on Diflucan, day 7, and Unasyn, day 6 (2) Abnormal urinalysis: Plan: He has a catheter associated UTI again. 2 species of Cinda isolated along with Enterococcus faecalis. He is now on Unasyn and Diflucan. Appreciate urology consultation and recommendations. He has bilateral ureter stents in place. Urology indicates that these will be exchanged at a later date as an outpatient (3) Acute respiratory failure with hypoxia: Plan: Oxygen requirements increased considerably on August 14. Chest x-ray was consistent with ARDS and he was transferred to the ICU. Parenteral steroids were started and I believe this has helped more than anything. Chest x-ray on August 15 looked better and oxygen requirements have decreased considerably. Chest x-ray done today, August 16, looked worse but hopefully this is just technique. Continue to treat suspected aspiration pneumonitis. D-dimer is elevated but chest CTA x 2 negative for PE although studies are suboptimal. Chest x-ray was read as pulmonary vascular congestion but I think this is more than likely ARDS. BNP is normal and there is no evidence of cardiomegaly. He has no prior history of CHF. Cardiac echo reveals normal left ventricular systolic function. Lasix diuresis did not have any significant impact at all. He is now receiving IV fluids (4) Right lower lobe consolidation: Plan: Seen on prior imaging. He is aspirating and has suspected aspiration pneumonitis. Appreciate speech therapy evaluation. Video swallow on August 18. He is now on Unasyn, vancomycin and Diflucan. Parenteral steroid therapy seems to be helping quite a bit and will be continued (5) Fecal impaction: Plan: Present on admission. Now resolved. Continue current bowel regimen (6) Right ischial pressure sore: Plan: Chronic. With associated osteomyelitis. Continue local care. Wound care consultation appreciated. He does have a WoundVac at home should one be indicated. General surgery consultation appreciated. They indicate no need for debridement at this time. (7) Hypokalemia: Plan: Corrected with potassium supplementation. Serial labs Plan To be determined. He is a candidate for LTAC placement Admission and Anticipated Discharge Date Admission Date: August 09, 2023 Subjective Awake and alert. Mental status seems a little bit better but he is still disoriented. Sodium improved to 144 with hypotonic IV fluids. Hemoglobin is down to 7.6 with no overt GI bleeding. Fecal occult blood is ordered. Urine output could be better and IV fluids have been uptitrated. Chest x-ray today, August 16 looked somewhat worse but he remains on 4 L oxygen. Continue parenteral steroid therapy. He remains n.p.o. for now. Video swallow study will be done August 18. He remains on fluconazole, vancomycin, Levaquin. Consultants include urology, general surgery, ICU, and infectious disease. Review of Systems 2 Review of Systems: The patient disorient and unable to reliably answer any questions regarding review of systems at this time Physical Exam 2 Physical Exam: General-awake but disoriented. No fever HEENT-head atraumatic and normocephalic, pupils equal and reactive to light, extraocular muscles intact Neck-no lymphadenopathy or thyromegaly, trachea midline Chest-fever bilateral rhonchi. No wheezing. No inspiratory rales Cardiac-regular rate and rhythm, normal S1 and S2 Abdomen-normal bowel sounds, no hepatosplenomegaly Skinchronic decubitus ulcerations GUchronic Camp catheter in place with some hematuria noted Extremities-bilateral lower extremities with atrophic changes Neuro-moving all extremities. Awake. No apparent focal deficits Psych-delirious. Cannot assess Results & Data Results & Data Vital Signs (Past 12 Hours) Vital Signs Temp Pulse Pulse Resp BP BP BP 08/17/23 11:43 93 H 20 08/17/23 11:00 37.4 C 94 H 20 154/103 H 08/17/23 08:38 96 H 14 08/17/23 08:00 08/17/23 07:00 36.3 C L 90 24 130/79 08/17/23 03:00 36.5 C 93 H 37 H 08/17/23 03:00 142/86 H Pulse Ox O2 Del Method O2 Flow Rate 08/17/23 11:43 100 Nasal Cannula 4 08/17/23 11:00 96 Nasal Cannula 4 08/17/23 08:38 91 Nasal Cannula 4 08/17/23 08:00 Nasal Cannula 4 08/17/23 07:00 96 Nasal Cannula 4 08/17/23 03:00 95 08/17/23 03:00 Laboratory Results 08/17/23 05:18 08/17/23 05:18 PG Care Time/CCT Total # of Minutes Spent Total Time Spent with Patient: Total time spent is greater than 50% in coordination of care (as documented) at patient's floor/unit and/or counseling patient: Coding Level of Care Code 37556 SUB INP/OBS CARE 3/50MIN Diagnoses Sepsis with acute hypoxic respiratory failure without septic shock, due to unspecified organism A41.9; R65.20; J96.01 Sepsis type: sepsis due to unspecified organism Sepsis acute organ dysfunction status: with acute organ dysfunction Severe sepsis acute organ dysfunction type: acute respiratory failure Acute respiratory failure type: with hypoxia Severe sepsis shock status: without septic shock Abnormal urinalysis R82.90 Acute respiratory failure with hypoxia J96.01 Right lower lobe consolidation J18.1 Fecal impaction K56.41 Right ischial pressure sore L89.319 Hypokalemia E87.6 (1) Sepsis Sepsis type: sepsis due to unspecified organism Sepsis acute organ dysfunction status: with acute organ dysfunction Severe sepsis acute organ dysfunction type: acute respiratory failure Acute respiratory failure type: w ith hypoxia Severe sepsis shock status: without septic shock Qualified Code(s): A41.9 - Sepsis, unspecified organism; R65.20 - Severe sepsis without septic shock; J96.01 - Acute respiratory failure with hypoxia
[2023-08-17] MEDS: oxyCODONE/ACETAMINOPHEN 10-325 TAB PO STA (20:57)
[2023-08-17] MEDS: MoRPHine SULFATE 2 MG/ML CARP IV STA (21:04)
[2023-08-18 04:28] LABS: Hematocrit (blood only) 21.3 % (42.0-52.0); Hemoglobin 7.4 g/dl (14.0-18.0); Mean Corpuscular Hemoglobin 30.7 pg (25.0-34.0); Mean Corpuscular Hgb Conc 34.7 g/dL (32.0-36.0); Mean Corpuscular Volume 88.4 fL (80.0-100.0); Nucleated RBC # (auto) 0.08 K/uL (0.00-0.12); Nucleated RBC % (auto) 0.4 %; Platelet Count 282 K/uL (130-400); RDW Coefficient of Variation 22.4 % (11.5-14.5); Red Blood Count 2.41 M/uL (4.70-6.10); White Blood Count 18.65 K/ul (4.8-10.8)
[2023-08-18 04:45] LABS: BUN Creatinine Ratio 16.4 (10-20); Creatinine Clr Calc Pharmacy 117.4 ml/min; Magnesium 1.9 mg/dl (1.7-2.4); Phosphorus 2.9 mg/dl (2.5-4.9); Potassium 4.2 mmol/L (3.5-5.1)
[2023-08-18 04:49] LABS: Anisocytosis Present; Basophils # (auto) 0.02 K/uL (0.00-0.20); Basophils % (auto) 0.1 %; Immature Granulocytes # (auto) 0.22 K/uL (0.01-0.20); Immature Granulocytes % (auto) 1.2 %; Lymphocytes # (auto) 0.26 K/uL (1.20-3.40); Lymphocytes % (auto) 1.4 %; Monocytes # (auto) 0.38 K/uL (0.11-0.59); Neutrophils # (auto) 17.77 K/uL (1.40-6.50); Neutrophils % (auto) 95.3 %; Polychromasia 1+; Rouleaux 1+; Target Cells 2+
[2023-08-18] MEDS ORDERED: SODIUM CHLORIDE 0.9% 250 ML IV PRN ×2 (08:21→08:54)
--- NOTE | 2023-08-18 14:53 | Hospitalist Progress Note ---
Date of Service August 18, 2023 Assessment & Plan (1) Sepsis: Plan: Acute sepsis syndrome with associated hypoxic respiratory failure and hypotension present on admission. Fortunately, he improved with IV fluids and appropriate antibiotics and antifungals. No pressor support required. He is now on Diflucan, day 8, and Unasyn, day 7 (2) Abnormal urinalysis: Plan: He has a catheter associated UTI again. 2 species of Cinda isolated along with Enterococcus faecalis. He is now on Unasyn and Diflucan. Appreciate urology consultation and recommendations. He has bilateral ureter stents in place. Urology indicates that these will be exchanged at a later date as an outpatient (3) Acute respiratory failure with hypoxia: Plan: Oxygen requirements increased considerably on August 14. Chest x-ray was consistent with ARDS and he was transferred to the ICU. Parenteral steroids were started and I believe this has helped more than anything. Chest x-ray on August 15 looked better and oxygen requirements have decreased considerably. Chest x-ray done today, August 16, looked worse but hopefully this is just technique. Continue to treat suspected aspiration pneumonitis. D-dimer is elevated but chest CTA x 2 negative for PE although studies are suboptimal. Chest x-ray was read as pulmonary vascular congestion but I think this is more than likely ARDS. BNP is normal and there is no evidence of cardiomegaly. He has no prior history of CHF. Cardiac echo reveals normal left ventricular systolic function. Lasix diuresis did not have any significant impact at all. He is now receiving IV fluids (4) Right lower lobe consolidation: Plan: Seen on prior imaging. He is aspirating and has suspected aspiration pneumonitis. Appreciate speech therapy evaluation. Video swallow on August 18. He is now on Unasyn, vancomycin and Diflucan. Parenteral steroid therapy seems to be helping quite a bit and will be continued (5) Fecal impaction: Plan: Present on admission. Now resolved. Continue current bowel regimen (6) Right ischial pressure sore: Plan: Chronic. With associated osteomyelitis. Continue local care. Wound care consultation appreciated. He does have a WoundVac at home should one be indicated. General surgery consultation appreciated. They indicate no need for debridement at this time. (7) Hypokalemia: Plan: Corrected with potassium supplementation. Serial labs (8) Anemia: Plan: No overt blood loss. Will transfuse 1 unit packed red blood cells today, August 17, for hemoglobin 7.4. Serial labs. Plan To be determined. He is a candidate for LTAC placement hopefully this coming week Admission and Anticipated Discharge Date Admission Date: August 09, 2023 Subjective Awake and alert but completely disoriented. Hemoglobin is 7.4 and 1 unit packed red blood cells will be administered today, August 17. His will come in to sign the transfusion consent form. Oxygen requirements have increased per nursing staff. I suspect he has recurrent aspiration episodes. Video swallow tomorrow, August 18. He remains n.p.o. on IV fluids. Current consultants include urology, general surgery, infectious disease. Review of Systems 2 Review of Systems: The patient is disoriented and unable to reliably answer any questions regarding review of systems at this time Physical Exam 2 Physical Exam: General-awake but disoriented. No fever HEENT-head atraumatic and normocephalic, pupils equal and reactive to light, extraocular muscles intact Neck-no lymphadenopathy or thyromegaly, trachea midline Chest-fever bilateral rhonchi. No wheezing. No inspiratory rales Cardiac-regular rate and rhythm, normal S1 and S2 Abdomen-normal bowel sounds, no hepatosplenomegaly Skinchronic decubitus ulcerations GUchronic Camp catheter in place with some hematuria noted Extremities-bilateral lower extremities with atrophic changes Neuro-moving all extremities. Awake. No apparent focal deficits Psych-disoriented. Cannot assess Results & Data Results & Data Vital Signs (Past 12 Hours) Vital Signs Temp Pulse Pulse Resp BP BP Pulse Ox 08/18/23 14:43 99 08/18/23 13:56 36.8 C 94 H 22 157/110 H 94 08/18/23 13:50 37.0 C 103 H 24 147/99 H 94 08/18/23 13:26 36.8 C 100 H 24 141/107 H 96 08/18/23 13:11 37.2 C 101 H 22 147/94 H 08/18/23 12:54 37.4 C 96 H 20 145/91 H 98 08/18/23 11:28 94 H 17 93 08/18/23 08:00 08/18/23 07:34 89 21 98 08/18/23 07:00 36.4 C L 99 H 26 H 124/85 97 08/18/23 04:27 36.5 C 08/18/23 04:00 96 H 34 H 154/96 H 94 O2 Del Method O2 Flow Rate 08/18/23 14:43 High Flow Nasal Cannula 8 08/18/23 13:56 6 08/18/23 13:50 08/18/23 13:26 08/18/23 13:11 08/18/23 12:54 08/18/23 11:28 Nasal Cannula 8 08/18/23 08:00 High Flow Nasal Cannula 8 08/18/23 07:34 Nasal Cannula 8 08/18/23 07:00 High Flow Nasal Cannula 8 08/18/23 04:27 08/18/23 04:00 Laboratory Results 08/18/23 04:00 08/18/23 04:00 PG Care Time/CCT Total # of Minutes Spent Total Time Spent with Patient: Total time spent is greater than 50% in coordination of care (as documented) at patient's floor/unit and/or counseling patient: Coding Level of Care Code 58285 SUB INP/OBS CARE 3/50MIN Diagnoses Sepsis with acute hypoxic respiratory failure without septic shock, due to unspecified organism A41.9; R65.20; J96.01 Sepsis type: sepsis due to unspecified organism Sepsis acute organ dysfunction status: with acute organ dysfunction Severe sepsis acute organ dysfunction type: acute respiratory failure Acute respiratory failure type: with hypoxia Severe sepsis shock status: without septic shock Abnormal urinalysis R82.90 Acute respiratory failure with hypoxia J96.01 Right lower lobe consolidation J18.1 Fecal impaction K56.41 Right ischial pressure sore L89.319 Hypokalemia E87.6 Anemia D64.9 (1) Sepsis Sepsis type: sepsis due to unspecified organism Sepsis acute organ dysfunction status: with acute organ dysfunction Severe sepsis acute organ dysfunction type: acute respiratory failure Acute respiratory failure type: w ith hypoxia Severe sepsis shock status: without septic shock Qualified Code(s): A41.9 - Sepsis, unspecified organism; R65.20 - Severe sepsis without septic shock; J96.01 - Acute respiratory failure with hypoxia
[2023-08-18 17:56] LABS: Hematocrit (blood only) 27.9 % (42.0-52.0); Hemoglobin 9.4 g/dl (14.0-18.0)
--- NOTE | 2023-08-19 07:24 | XRay Report ---
XR chest 1V portable HISTORY: 63 years-old Male hypoxic resp failure, suspected ARDS acute shortness of breath COMPARISON: 08/17/2023 TECHNIQUE: AP view of the chest FINDINGS: Cardiomediastinal and hilar silhouettes are unchanged. Mixed interstitial and alveolar opacities rede monstrated, mildly improved. No pneumothorax. Probable trace pleural effusions. Spinal fusion hardwar e redemonstrated. Surgical suture material of the upper abdomen. Hardware noted within the right prox imal humerus. IMPRESSION: 1. Mildly improved aeration of the lungs. 2. No pneumothorax. 3. Probable trace pleural effusions. ACT 112: Negative or not required by law. The above report was generated using voice recognition software. It may contain grammatical, syntax o r spelling errors. Electronically signed by: Prateek Garcia M.D. 08/19/2023 7:23 AM
[2023-08-19 07:55] LABS: Calcium 7.3 mg/dl (8.6-10.3); Potassium 4.2 mmol/L (3.5-5.1)
[2023-08-19 07:58] LABS: Hematocrit (blood only) 30.4 % (42.0-52.0); Mean Corpuscular Hemoglobin 29.3 pg (25.0-34.0); Mean Corpuscular Hgb Conc 32.9 g/dL (32.0-36.0); Mean Corpuscular Volume 89.1 fL (80.0-100.0); Mean Platelet Volume 11.9 fL (9.4-12.4); Nucleated RBC # (auto) 0.08 K/uL (0.00-0.12); Nucleated RBC % (auto) 0.4 %; Platelet Count 183 K/uL (130-400); RDW Coefficient of Variation 20.8 % (11.5-14.5); Red Blood Count 3.41 M/uL (4.70-6.10); White Blood Count 19.62 K/ul (4.8-10.8)
[2023-08-19 08:01] LABS: BUN Creatinine Ratio 15.8 (10-20); Creatinine Clr Calc Pharmacy 126.4 ml/min; Est GFR (African American) 127.6 ml/min; Est GFR (Non-African American) 110.1 ml/min
[2023-08-19 08:26] LABS: Acanthocytes 1+; Anisocytosis Present; Basophils # (auto) 0.03 K/uL (0.00-0.20); Basophils % (auto) 0.2 %; Howell-Jolly Bodies 1+; Lymphocytes # (auto) 0.23 K/uL (1.20-3.40); Lymphocytes % (auto) 1.2 %; Monocytes # (auto) 0.32 K/uL (0.11-0.59); Monocytes % (auto) 1.6 %; Neutrophils # (auto) 18.84 K/uL (1.40-6.50); Polychromasia 2+; Target Cells 2+
--- NOTE | 2023-08-19 09:15 | Infectious Disease Progress Nt ---
Date of Service August 19, 2023 Assessment & Plan (1) Sacral decubitus ulcer: (2) Osteomyelitis: (3) Complicated UTI (urinary tract infection): (4) Right lower lobe consolidation: (5) Paraplegia: Plan 63yo M with h/o T4 paraplegia, neurogenic bladder s/p indwelling Garrison and u reteral stents (last stent exchange May 2023), prior h/o UTI/pyelo, asplenia, HTN, HLD who presented on 08/08 with confusion and somnolence. He initially presented to [facility] 08/01 where he was treated with antibiotics and lactulose for elevated ammonia. Patient had improved but became more somnolent and consumed so patient was signed out AMA from [facility] and brought to [facility]. Per chart (urology note), he had sudden onset of pain into flank going down and radiating into groin and back in waves. In the ED, he was hypotensive to 70s which improved with IVFs. Afebrile, on 2-3L NC. WBC 14.3, Cr 0.59. Elevated d dimer. AST/ALT in 50s. CRP 8.47. PCT 0.91. UA with >50 WBC, 3-5 epithelial cells, yeast. CXR negative. CT head neg. CTAP with large stool ball within the distal sigmoid colon and rectum, proximal to this colon is distended and fluid-filled suggesting distal large bowel obstruction 2/2 fecal impaction; c/f stercoral colitis; bl hydroureteronephrosis unchanged; bl urothelial t hickening with bl periureteral edema/fat stranding thats progressed, could be chronic irritation from ureteral stents or infectious pyelitis; findings of possible aspiration PNA in RLL and opacities in lung bases; bl sacral decubitus ulcers with mild erosion of bl ischial tuberosities and coccyx, similar to prior c/w acute on chronic OM. He was admitted with multiple issues and started on empiric abx. Had BM with tx of fecal impaction. Was seen by urology, no plan for intervention, likely stent exchange outpatient. He was seen by surgery and nonoperative chemical debridement advised for sacrum. CXR on 08/12 with mild pulmonary vascular congestion. CTA chest limited, increased bl lower lobe alveolar opacities favoring aspiration, extensive upper lobe GGO favoring infectious etiology, pulmonary edema could appear similar, small bl pleural effusions, left hydronephrosis. WBC initially downtrended, but now up to 16.62. ID consulted 08/13 for sacral OM. UA 08/13 after garrison exchange with >50 WBC. Course c/b hypoxia, increased WOB, and lethargy o/n on 08/13-08/14. Patient placed on bipap with improvement. CTA chest negative for PE; moderate esophageal hiatal hernia with esophageal thickening; increased burden of GGO within the lungs most prominently in RML and RUL favoring infectious in nature, sequela of pulmonary edema possible; diffuse soft tissue edema suggesting anasarca. PCT 1.03. Lactate 2.8. D dimer 1020. RPP with Human metapneumovirus. WBC 19 today, but also now on steroids. CXR 08/18 with mildly improved aeration of the lungs. Leukocytosis noted, but he is now recently started on steroids. No reported diarrhea. CXR appears to be improving, no fevers. I did ask micro lab to add on sensi for Cinda in urine, which will be sent out. Continuing on current antimicrobials along with supportive care for viral infection. Coverage for PNA at this point is complete (he has had about 10 days of abx). Vanc and Unasyn now to cover sacrum. Unasyn and Fluconazole also to cover complicated urine. I am including coverage for Cinda since it was significant growth compared to E faecalis in setting of flank pain, ureteral stents, CT findings, and repeat UCx after garrison change had Cinda. No plans for prolonged treatment of sacral OM since no surgical intervention is planned and antibiotics alone are not sufficient for cure. Abx: Fluconazole 08/10-present Vanc 08/08-08/10, 08/13-present Unasyn 08/11-present Cefepime 08/08-08/10 Flagyl 08/08-08/10 # Acute respiratory failure with hypoxia # Human metapneumovirus infection # c/f aspiration PNA s/p 10d of abx # Sacral ulcers with underlying OM # Bl hydroureteronephrosis with findings of possible chronic irritation of ureteral stents vs infectious pyelitis # Fecal impaction with stercoral colitis s/p BM - f/u UCx from 08/13 and 08/14 (done after garrison change, I added sensi to Cinda) - supportive care for viral infection - continue vancomycin pharmacy dosed protocol (coverage of sacrum for ?overlying SSTI - MRSA screen positive) - continue Unasyn 3g IV q6h (coverage of sacrum and UTI) - continue fluconazole 200mg PO daily (QTc 440, coverage of UTI) - plan for total 2 wks of abx for sacrum and UTI (note PNA treatment is com pleted at this point) with end date on 08/23 - if plans for discharge home prior to abx completion, regimen can be changed to PO with doxycycline, augmentin, and fluconazole to end 08/23 ID will discontinue active follow up at this time. Please do not hesitate to reconsult the Infectious Diseases service as needed. Amisha Santana MD [facility], Division of Infectious Diseases [facility]: [phone] Admission and Anticipated Discharge Date Admission Date: August 09, 2023 Subjective Subsequent visit was provided via telemedicine using two-way real-time interactive telecommunication between the patient and the telemedicine provider. For the duration of the visit, the provider was performing the assessment from a different facility than the patient. This includesuse of bluetooth stethoscope forauscultationperformed by the telepresenter that the telemedicine provider can hear if described in the physical exam. Resident Care Provider contact information: Please call [facility] Call Center . (Phone Number For Physician Use Only) After establishing a telemedicine visit, patient was: Patient was verified with two unique identifiers, Patient/authorized rep acknowledged consent and understanding and Gave permission to continue telehealth session Time Spent with Patient: Subsequent => 55 min Patient confused, difficult to get history. Reports pain on his right side. Per RN, no diarrhea. Physical Exam Physical Exam: General: Awake, no acute distress HEENT: mmm Neck: supple Lungs: breathing comfortably Abdomen: soft, nontender Ext: bl lower extremity edema Results & Data Vital Signs (Past 12 Hours) Vital Signs Temp Pulse Pulse Resp BP BP BP 08/19/23 07:34 36.4 C L 99 H 20 170/98 H 08/19/23 07:26 86 20 08/19/23 02:32 96 H 08/19/23 02:02 08/19/23 01:48 36.4 C L 94 H 19 159/101 H 08/19/23 00:40 08/18/23 23:03 91 H 23 08/18/23 22:06 36.8 C 88 160/94 H Pulse Ox O2 Del Method O2 Flow Rate 08/19/23 07:34 90 Nasal Cannula 4 08/19/23 07:26 75 L Room Air 08/19/23 02:32 08/19/23 02:02 High Flow Nasal Cannula 5 08/19/23 01:48 99 High Flow Nasal Cannula 5 08/19/23 00:40 High Flow Nasal Cannula 4 08/18/23 23:03 97 08/18/23 22:06 95 Laboratory Results Labs reviewed. 08/08 MRSA screen: positive 08/08 BCX: ngtd 08/08 UCX: E faecalis 20k (S-amp), C albicans/dubliniensis > 100k 08/13 UCx: C albicans/dubliniensis (after garrison change) 08/14 RPP: H metapneumovirus 08/14 BCX: ngtd 08/14 repeat UCx: C albicans Diagnostic Findings Imaging reviewed. (1) Sacral decubitus ulcer Pressure injury stage: unspecified pressure injury stage Qualified Code(s): L89.159 - Pressure ulcer of sacral region, unspecified stage
[2023-08-19] MEDS: DEXTROSE 5% 1,000 ML IV SCH (11:09)
--- NOTE | 2023-08-19 11:21 | Fluoroscopy Report ---
FL video swallow CLINICAL HISTORY: 63 years-old Male with r/o aspiration. Dysphagia TECHNIQUE: Video fluoroscopic evaluation of swallowing was performed in the AP and lateral projection s by the speech pathology staff. The patient is fed varying consistencies of barium. FLUOROSCOPY TIME: 1.13 minutes. 2073 images. 5.78 mGy. COMPARISON STUDY: Chest radiograph 08/19/2023 FINDINGS: Donaldo aspiration with initial thin liquid barium and subsequent cough. Study is otherwise w ithin normal limits. IMPRESSION: 1. Aspiration with thin liquid barium 2. Please see the speech pathologist report for detailed findings and recommendations. ACT 112: Negative or not required by law. Electronically signed by: Prateek Garcia M.D. 08/19/2023 11:20 AM
[2023-08-19] MEDS: VANCOMYCIN LEVEL ONE (11:32)
--- NOTE | 2023-08-19 14:10 | Hospitalist Progress Note ---
Date of Service August 19, 2023 Assessment & Plan (1) Sepsis: Plan: Acute sepsis syndrome with associated hypoxic respiratory failure and hypotension present on admission. Fortunately, he improved with IV fluids and appropriate antibiotics and antifungals. No pressor support required. 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 Remains afebrile F/u UCx from 08/13 and 08/14 (done after garrison change, I added sensi to Cinda) Continue supportive care for viral infection Change vancomycin to doxy for coverage of sacrum for ?overlying SSTI - MRSA screen positive Continue Unasyn 3g IV q6h (coverage of sacrum and UTI) Continue fluconazole 200mg PO daily (QTc 440, coverage of UTI) Plan for total 2 wks of abx for sacrum and UTI (note PNA treatment is completed at this point) with end date on 08/23 Plan for discharge on po doxycycline, augmentin, and fluconazole to end 08/23 (2) Metabolic encephalopathy: Plan: Remains confused but oriented to person and place. Conversation tangential. Is also hallucinating, thinks there are dogs in the room Continue to treat underlying infections, lyte abnormalities--> with worsening hyperchloremic met acidosis--> change IVFs to D5W Follow CBC, BMP Give IV thiamine empirically Supportive care Steroids could be worsening this-will decrease dosing to q12h (3) Abnormal urinalysis: Plan: He has a catheter associated UTI. Garrison exchanged here after admission. With 2 species of Cinda (sensitivities pending) isolated along with Enterococcus faecalis. He is now on Unasyn and Diflucan. Appreciate urology consultation and recommendations. He has bilateral ureter stents in place. Urology indicates that these will be exchanged at a later date as an outpatient (4) Acute respiratory failure with hypoxia: Plan: Oxygen requirements increased considerably on August 14. Chest x-ray was consistent with ARDS and he was transferred to the ICU. Parenteral steroids were started this has helped. Chest x-ray on August 15 looked better and oxygen requirements have decreased considerably. Chest x-ray done today, August 16, looked worse but hopefully this is just technique. Continue to treat suspected aspiration pneumonitis. D-dimer is elevated but chest CTA x 2 negative for PE although studies are suboptimal. BNP is normal and there is no evidence of cardiomegaly. He has no prior history of CHF. Cardiac echo reveals normal left ventricular systolic function. Lasix diuresis did not have any significant impact at all. He is now receiving IV fluids while NPO for swallowing eval Continue nebs Speech therapy performed VFSS and he passed-advance diet (5) Fecal impaction: Plan: Present on admission. Now resolved. Continue current bowel regimen (6) Right ischial pressure sore: Plan: Chronic. With associated osteomyelitis. Continue local care. Wound care consultation appreciated. He does have a WoundVac in place General surgery consultation appreciated. They indicate no need for debridement at this time Continue abx for soft tissue infection (7) Anemia: Plan: No overt blood loss. Hgb 88-9 and drifted down to the 7s range Transfused 1 unit PRBCs August 17, for hemoglobin 7.4. Serial labs-improved today to 10.0 Plan DVT proph- add Lovenox SQ Dispo-continued stay , will call with update Admission and Anticipated Discharge Date Admission Date: August 09, 2023 Subjective Pt remains confused, but knows his name and that he is at [facility]. He tells me "I am going to in a couple hours." Denies feeling SOB, denies cough. Tele with NSR 90-100s Physical Exam Constitutional: + ill appearing (chronically ill appeari ng) Respiratory: normal respiratory effort, lungs clear to auscultation + cough Cardiovascular: Rate/Rhythm: regular rate and regular rhythm Heart Sounds: no murmur Extremities: + edema (trace edema legs bilat) Gastrointestinal (Abdomen): Inspection/Auscultation: normal bowel sounds; abdomen not distended Percussion/Palpation: abdomen soft and + hernia (reducible); abdomen nontender Psychiatric: Orientation: alert, oriented to person, oriented to place and cooperative Genitourinary: Garrison with pink tinged urine Results & Data Results & Data Vital Signs (Past 12 Hours) Vital Signs Temp Pulse Pulse Resp BP Pulse Ox O2 Del Method 08/19/23 11:06 36.4 C L 108 H 20 148/92 H 94 High Flow Nasal Cannula 08/19/23 08:00 High Flow Nasal Cannula 08/19/23 08:00 98 H 08/19/23 07:34 36.4 C L 99 H 20 170/98 H 90 Nasal Cannula 08/19/23 07:26 86 20 75 L Room Air 08/19/23 02:32 96 H 08/19/23 02:02 High Flow Nasal Cannula O2 Flow Rate 08/19/23 11:06 5 08/19/23 08:00 5 08/19/23 08:00 08/19/23 07:34 4 08/19/23 07:26 08/19/23 02:32 08/19/23 02:02 5 Laboratory Results CBC, BMP reviewed PG Care Time/CCT Total # of Minutes Spent Total Time Spent with Patient: Total time spent is greater than 50% in coordination of care (as documented) at patient's floor/unit and/or counseling patient: Coding Level of Care Code 88426 SUB INP/OBS CARE 3/50MIN Diagnoses Sepsis with acute hypoxic respiratory failure without septic shock, due to unspecified organism A41.9; R65.20; J96.01 Acute respiratory failure type: with hypoxia Sepsis acute organ dysfunction status: with acute organ dysfunction Sepsis type: sepsis due to unspecified organism Severe sepsis acute organ dysfunction type: acute respiratory failure Severe sepsis shock status: without septic shock Metabolic encephalopathy G93.41 Abnormal urinalysis R82.90 Acute respiratory failure with hypoxia J96.01 Fecal impaction K56.41 Right ischial pressure sore L89.319 Anemia D64.9 (1) Sepsis Acute respiratory failure type: with hypoxia Sepsis acute organ dysfunction status: with acute organ dysfunction Sepsis type: sepsis due to unspecified organism Severe sepsis acute organ dysfunction type: acute respiratory failure Severe sepsis shock status: without septic shock Qualified Code(s): A41.9 - Sepsis, unspecified organism; R65.20 - Severe sepsis without septic shock; J96.01 - Acute respiratory failure with hypoxia
[2023-08-19] MEDS: THIAMINE HCL 200 MG in SODIUM CHLORIDE 0.9% 50 ML IV SCH (15:13)
[2023-08-19] MEDS: ENOXAPARIN INJ 40 MG/0.4 ML SYR SQ SCH (15:14)
[2023-08-19] MEDS: methylPREDNISolone 60 MG in SYRINGE 0 ML IV SCH (20:21)
[2023-08-19] MEDS: DOXYCYCLINE HYCLATE 100 MG in D5W MINI-B 100 ML (Q12H) IV SCH (20:21)
[2023-08-20] MEDS: ALBUT/IPRATROP 3MG/0.5MG NEB 3 ML VIAL NEB PRN (02:05)
[2023-08-20 07:14] LABS: Hematocrit (blood only) 28.8 % (42.0-52.0); Hemoglobin 9.7 g/dl (14.0-18.0); Mean Corpuscular Hemoglobin 29.4 pg (25.0-34.0); Mean Corpuscular Hgb Conc 33.7 g/dL (32.0-36.0); Mean Corpuscular Volume 87.3 fL (80.0-100.0); Mean Platelet Volume 11.3 fL (9.4-12.4); Nucleated RBC # (auto) 0.06 K/uL (0.00-0.12); Nucleated RBC % (auto) 0.4 %; Platelet Count 317 K/uL (130-400); RDW Coefficient of Variation 21.2 % (11.5-14.5); RDW Standard Deviation 65.3 fL (36.4-46.3); White Blood Count 17.14 K/ul (4.8-10.8)
[2023-08-20 07:28] LABS: BUN Creatinine Ratio 15.8 (10-20); Calcium 7.3 mg/dl (8.6-10.3); Creatinine Clr Calc Pharmacy 126.2 ml/min; Est GFR (African American) 127.6 ml/min; Est GFR (Non-African American) 110.1 ml/min; Potassium 3.8 mmol/L (3.5-5.1)
[2023-08-20 07:36] LABS: Anisocytosis Present; Basophils # (auto) 0.02 K/uL (0.00-0.20); Basophils % (auto) 0.1 %; Immature Granulocytes # (auto) 0.21 K/uL (0.01-0.20); Immature Granulocytes % (auto) 1.2 %; Lymphocytes # (auto) 0.21 K/uL (1.20-3.40); Lymphocytes % (auto) 1.2 %; Monocytes # (auto) 0.35 K/uL (0.11-0.59); Neutrophils # (auto) 16.35 K/uL (1.40-6.50); Neutrophils % (auto) 95.5 %; Target Cells 2+
[2023-08-20] MEDS: ALBUT/IPRATROP 3MG/0.5MG NEB 3 ML VIAL NEB SCH (11:22)
--- NOTE | 2023-08-20 14:48 | Hospitalist Progress Note ---
Date of Service August 20, 2023 Assessment & Plan (1) Sepsis: Plan: Sepsis with associated hypoxic respiratory failure and hypotension present on admission. Fortunately, he improved with IV fluids and appropriate antibiotics and antifungals. No pressor support required. 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 Remains afebrile Mentation much improved on 08/19 F/u UCx from 08/13 and 08/14 (done after garrison change, added sensi to Cinda) Continue supportive care for viral infection Changed vancomycin to doxy for coverage of sacrum for ?overlying SSTI - MRSA screen positive Continue Unasyn 3g IV q6h (coverage of sacrum and UTI) Continue fluconazole 200mg PO daily (QTc 440, coverage of UTI) Plan for total 2 wks of abx for sacrum and UTI (note PNA treatment is completed at this point) with end date on 08/23 Plan for discharge on po doxycycline, augmentin, and fluconazole to end 08/23 (2) Metabolic encephalopathy: Plan: Remained confused but oriented to person and place with conversation tangential, also hallucinating, thinks there are dogs in the room--> now much improved 08/19 after starting IV thiamine and correcting acidosis, decreasing steroid dose. Continue to treat underlying infections, lyte abnormalities Follow CBC, BMP Giving IV thiamine empirically Supportive care Continue to wean off steroids to once daily for today (3) Abnormal urinalysis: Plan: He has a catheter associated UTI. Garrison exchanged here after admission. With 2 species of Cinda (sensitivities pending) isolated along with Enterococcus faecalis. He is now on Unasyn and Diflucan. Appreciate urology consultation and recommendations. He has bilateral ureter stents in place. Urology indicates that these will be exchanged at a later date as an outpatient (4) Acute respiratory failure with hypoxia: Plan: Oxygen requirements increased considerably on August 14. Chest x-ray was consistent with ARDS and he was transferred to the ICU. Parenteral steroids were started this has helped. Chest x-ray on August 15 looked better and oxygen requirements have decreased considerably although worse again 08/19. Chest x-ray August 16, looked worse but hopefully this is just technique. Continue to treat suspected aspiration pneumonitis. D-dimer is elevated but chest CTA x 2 negative for PE although studies are suboptimal. BNP is normal and there is no evidence of cardiomegaly. He has no prior history of CHF. Cardiac echo reveals normal left ventricular systolic function. Lasix diuresis did not have any significant impact at all. Continue nebs and make scheduled again for worsening hypoxia-requiring 11LNC today Speech therapy performed VFSS and he passed-advance diet to pureed (5) Fecal impaction: Plan: Present on admission. Now resolved. Continue current bowel regimen (6) Right ischial pressure sore: Plan: Chronic. With associated osteomyelitis. Continue local care. Wound care consultation appreciated. He does have a WoundVac in place General surgery consultation appreciated. They indicate no need for debridement at this time Continue abx for soft tissue infection (7) Anemia: Plan: No overt blood loss. Hgb 88-9 and drifted down to the 7s range Transfused 1 unit PRBCs August 17, for hemoglobin 7.4. Serial labs-hgb stable at 9.7 Plan DVT proph- Lovenox SQ Dispo-continued stay , updated on 08/18 Admission and Anticipated Discharge Date Admission Date: August 09, 2023 Subjective Pt is much more mentally clear today. Has some pain in lower back into buttocks from wound. Is eating more today and did well, no choking as per RN. Tele with NSR, ST rates 90-100s On 11LNC this AM and now weaned to 7LNC Physical Exam Constitutional: + ill appearing (chronically ill appeari ng) Respiratory: normal respiratory effort; no cough Auscultation: + rhonchi; no crackles and no wheezes Cardiovascular: Rate/Rhythm: regular rate and regular rhythm Heart Sounds: no murmur Extremities: + edema (trace edema legs bilat) Gastrointestinal (Abdomen): Inspection/Auscultation: normal bowel sounds; abdomen not distended Percussion/Palpation: abdomen soft and + hernia (reducible); abdomen nontender Psychiatric: Orientation: alert, oriented to person, oriented to place and cooperative Results & Data Results & Data Vital Signs (Past 12 Hours) Vital Signs Temp Pulse Pulse Resp BP Pulse Ox O2 Del Method 08/20/23 14:35 36.4 C L 102 H 18 134/80 97 Nasal Cannula 08/20/23 14:29 100 H 20 96 Nasal Cannula 08/20/23 11:52 High Flow Nasal Cannula 08/20/23 11:22 96 H 18 93 Nasal Cannula 08/20/23 08:00 96 H 08/20/23 07:27 36.3 C L 108 H 19 131/80 90 Nasal Cannula O2 Flow Rate 08/20/23 14:35 7 08/20/23 14:29 9 08/20/23 11:52 9 08/20/23 11:22 9 08/20/23 08:00 08/20/23 07:27 11 Laboratory Results CBC, BMP, blood cxs reviewed PG Care Time/CCT Total # of Minutes Spent Total Time Spent with Patient: Total time spent is greater than 50% in coordination of care (as documented) at patient's floor/unit and/or counseling patient: Coding Level of Care Code 45053 SUB INP/OBS CARE 235MIN Diagnoses Sepsis with acute hypoxic respiratory failure without septic shock, due to unspecified organism A41.9; R65.20; J96.01 Sepsis type: sepsis due to unspecified organism Sepsis acute organ dysfunction status: with acute organ dysfunction Severe sepsis acute organ dysfunction type: acute respiratory failure Acute respiratory failure type: with hypoxia Severe sepsis shock status: without septic shock Metabolic encephalopathy G93.41 Abnormal urinalysis R82.90 Acute respiratory failure with hypoxia J96.01 Fecal impaction K56.41 Right ischial pressure sore L89.319 Anemia D64.9 (1) Sepsis Sepsis type: sepsis due to unspecified organism Sepsis acute organ dysfu nction status: with acute organ dysfunction Severe sepsis acute organ dysfunction type: acute respiratory failure Acute respiratory failure type: with hypoxia Severe sepsis shock status: without septic shock Qualified Code(s): A41.9 - Sepsis, unspecified organism; R65.20 - Severe sepsis without septic shock; J96.01 - Acute respiratory failure with hypoxia
[2023-08-21 06:56] LABS: Hematocrit (blood only) 30.7 % (42.0-52.0); Hemoglobin 10.3 g/dl (14.0-18.0); Mean Corpuscular Hemoglobin 29.7 pg (25.0-34.0); Mean Corpuscular Hgb Conc 33.6 g/dL (32.0-36.0); Mean Corpuscular Volume 88.5 fL (80.0-100.0); Mean Platelet Volume 10.8 fL (9.4-12.4); Nucleated RBC # (auto) 0.03 K/uL (0.00-0.12); Nucleated RBC % (auto) 0.1 %; Platelet Count 367 K/uL (130-400); RDW Coefficient of Variation 21.8 % (11.5-14.5); RDW Standard Deviation 68.1 fL (36.4-46.3); Red Blood Count 3.47 M/uL (4.70-6.10); White Blood Count 25.87 K/ul (4.8-10.8)
[2023-08-21 07:13] LABS: BUN Creatinine Ratio 17.5 (10-20); Calcium 7.3 mg/dl (8.6-10.3); Creatinine Clr Calc Pharmacy 133.3 ml/min; Est GFR (African American) 122.4 ml/min; Est GFR (Non-African American) 105.6 ml/min; Potassium 3.6 mmol/L (3.5-5.1)
[2023-08-21 07:18] LABS: Anisocytosis Present; Basophils # (auto) 0.03 K/uL (0.00-0.20); Basophils % (auto) 0.1 %; Immature Granulocytes # (auto) 0.41 K/uL (0.01-0.20); Immature Granulocytes % (auto) 1.6 %; Lymphocytes # (auto) 0.29 K/uL (1.20-3.40); Lymphocytes % (auto) 1.1 %; Monocytes # (auto) 0.46 K/uL (0.11-0.59); Monocytes % (auto) 1.8 %; Neutrophils # (auto) 24.68 K/uL (1.40-6.50); Neutrophils % (auto) 95.4 %; Polychromasia 2+; Target Cells 2+; Toxic Vacuolation 1+
[2023-08-21] MEDS: methylPREDNISolone 60 MG in SYRINGE 0 ML IV SCH (09:02)
[2023-08-21] MEDS: FLUCONAZOLE 100 MG TAB PO SCH (10:45)
--- NOTE | 2023-08-21 11:11 | XRay Report ---
XR chest 1V portable CLINICAL HISTORY: worsening hypoxia TECHNIQUE: Single frontal radiograph of the chest was obtained. Comparison: Comparison is made to chest radiograph 08/19/2023 FINDINGS: Orthopedic hardware is unchanged. The cardiomediastinal silhouette is normal. There is prominence and cephalization of the vasculature with Dianne B lines seen. Airspace opacities are seen centrally, ri ght greater than left. No evidence of pleural effusion or pneumothorax. IMPRESSION: Interstitial edema is increased from prior exam. Airspace opacities may represent alveolar edema or p neumonia. ACT 112: Negative or not required by law. Electronically signed by: Colt Johnson M.D. 08/21/2023 11:10 AM
[2023-08-21] MEDS: FUROSEMIDE 40 MG/4 ML VIAL IV ONE (13:28)
[2023-08-21] MEDS: POTASSIUM CHLORIDE CRTAB 20 MEQ TABCR PO STA (13:29)
--- NOTE | 2023-08-21 16:11 | Hospitalist Progress Note ---
Date of Service August 21, 2023 Assessment & Plan (1) Sepsis: Plan: Sepsis with associated hypoxic respiratory failure and hypotension present on admission. Fortunately, he improved with IV fluids and appropriate antibiotics and antifungals. No pressor support required. 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 Remains afebrile Mentation much improved since 08/19 F/u UCx from 08/13 and 08/14 (done after garrison change, added sensi to Cinda- pending) Continue supportive care for viral infection Changed vancomycin to doxy for coverage of sacrum for ?overlying SSTI - MRSA screen positive Continue Unasyn 3g IV q6h (coverage of sacrum and UTI) Continue fluconazole 200mg PO daily (QTc 440, coverage of UTI)-restart today as fell off MAR since yesterday Plan for total 2 wks of abx for sacrum and UTI (note PNA treatment is completed at this point) with end date on 08/23 Plan for discharge on po doxycycline, augmentin, and fluconazole to end 08/23 (2) Acute respiratory failure with hypoxia: Plan: Oxygen requirements increased considerably on August 14. Chest x-ray was consistent with ARDS and he was transferred to the ICU. Parenteral steroids were started this has helped. Chest x-ray on August 15 looked better and oxygen requirements decreased to 4LNC on 08/18--> worse again 08/19 and now requiring 13L HFNC on 08/20 Chest x-ray August 16, looked worse but CXR now 08/20 with more pulm edema and CHF Continue to treat suspected aspiration pneumonitis with abx, aspiration precautions D-dimer is elevated but chest CTA x 2 negative for PE although studies are suboptimal. BNP is normal and there is no evidence of cardiomegaly. He has no prior history of CHF. Cardiac echo reveals normal left ventricular systolic function. With worsening pulm edema CXR 08/20--> give lasix 40mg IV x 1 Continue nebs scheduled Dc steroids Speech therapy performed VFSS and he passed-advance diet to pureed (3) Metabolic encephalopathy: Plan: Remained confused but oriented to person and place with conversation tangential, also hallucinating, thinks there are dogs in the room--> now much improved since 08/19 after starting IV thiamine and correcting acidosis, decreasing steroid dose. Continue to treat underlying infections, lyte abnormalities Follow CBC, BMP COntinue giving IV thiamine empirically Supportive care Continue to wean off steroids -discontinue now (4) Abnormal urinalysis: Plan: He has a catheter associated UTI. Garrison exchanged here after admission. With 2 species of Cinda (sensitivities pending) isolated along with Enterococcus faecalis. He is now on Unasyn and Diflucan. Appreciate urology consultation and recommendations. He has bilateral ureter stents in place. Urology indicates that these will be exchanged at a later date as an outpatient (5) Fecal impaction: Plan: Present on admission. Now resolved. Continue current bowel regimen (6) Right ischial pressure sore: Plan: Chronic. With associated osteomyelitis. Continue local care. Wound care consultation appreciated. He does have a WoundVac in place General surgery consultation appreciated. They indicate no need for debridement at this time Continue abx for soft tissue infection (7) Anemia: Plan: No overt blood loss. Hgb 88-9 and drifted down to the 7s range Transfused 1 unit PRBCs August 17, for hemoglobin 7.4. Serial labs-hgb continues to improve at 10 Plan DVT proph- Lovenox SQ Dispo-continued stay , updated on 08/18 and 08/20 Admission and Anticipated Discharge Date Admission Date: August 09, 2023 Subjective Pt more awake and alert today. Complains of wheezing. Was on 13LNC this AM and now weaned to 10L Tele with NSR-ST rates 90-100s, some PVCs Physical Exam Constitutional: + ill appearing (chronically ill appeari ng) Respiratory: normal respiratory effort and + cough Auscultation: + rhonchi; no crackles and no wheezes Cardiovascular: Rate/Rhythm: regular rate and regular rhythm Heart Sounds: no murmur Extremities: + edema (trace edema legs bilat) Gastrointestinal (Abdomen): Inspection/Auscultation: normal bowel sounds; abdomen not distended Percussion/Palpation: abdomen soft and + hernia (reducible); abdomen nontender Psychiatric: Orientation: alert, oriented to person, oriented to place, oriented to time and cooperative Results & Data Results & Data Vital Signs (Past 12 Hours) Vital Signs Temp Pulse Pulse Resp BP Pulse Ox O2 Del Method 08/21/23 15:41 36.5 C 113 H 20 128/84 94 High Flow Nasal Cannula 08/21/23 15:15 84 20 97 Nasal Cannula 08/21/23 15:00 98 H 08/21/23 10:55 36.3 C L 111 H 19 138/92 94 High Flow Nasal Cannula 08/21/23 10:34 104 H 16 94 Nasal Cannula 08/21/23 08:30 High Flow Nasal Cannula 08/21/23 08:30 97 H 08/21/23 07:29 36.2 C L 113 H 20 131/81 98 High Flow Nasal Cannula 08/21/23 07:09 97 H 17 90 Nasal Cannula 08/21/23 04:24 91 High Flow Nasal Cannula O2 Flow Rate 08/21/23 15:41 10 08/21/23 15:15 10 08/21/23 15:00 08/21/23 10:55 12 08/21/23 10:34 12 08/21/23 08:30 13 08/21/23 08:30 08/21/23 07:29 10 08/21/23 07:09 13 08/21/23 04:24 11 Laboratory Results CBC, BMP reviewed Diagnostic Findings CXR image personally reviewed by me and agree with pulm edema and cephalization of vessels--> gave IV lasix PG Care Time/CCT Total # of Minutes Spent Total Time Spent with Patient: Total time spent is greater than 50% in coordination of care (as documented) at patient's floor/unit and/or counseling patient: Coding Level of Care Code 60834 SUB INP/OBS CARE 3/50MIN Diagnoses Sepsis with acute hypoxic respiratory failure without septic shock, due to unspecified organism A41.9; R65.20; J96.01 Sepsis type: sepsis due to unspecified organism Sepsis acute organ dysfunction status: with acute organ dysfunction Severe sepsis acute organ dysfunction type: acute respiratory failure Acute respiratory failure type: with hypoxia Severe sepsis shock status: without septic shock Acute respiratory failure with hypoxia J96.01 Metabolic encephalopathy G93.41 Abnormal urinalysis R82.90 Fecal impaction K56.41 Right ischial pressure sore L89.319 Anemia D64.9 (1) Sepsis Sepsis type: sepsis due to unspecified organism Sepsis acute organ dysfunction status: with acute organ dysfunction Severe sepsis acute organ dysfunction type: acute respiratory failure Acute respiratory failure type: with hypoxia Severe sepsis shock status: without septic shock Qualified Code(s): A41.9 - Sepsis, unspecified organism; R65.20 - Severe sepsis without septic shock; J96.01 - Acute respiratory failure with hypoxia
[2023-08-21] MEDS: oxyCODONE/ACETAMINOPHEN 5mg/325mg TAB PO PRN (17:04)
[2023-08-21] MEDS: ACETAMINOPHEN 325 MG TAB ONE (19:02)
[2023-08-21] MEDS: AMITRIPTYLINE HCL 10 MG TAB PO SCH (21:54)
[2023-08-21] MEDS: PANTOprazole 40 MG TAB PO SCH (21:54)
[2023-08-21] MEDS: LACTULOSE SYRUP 20 GM/30 ML UDC PO SCH (21:54)
[2023-08-22 07:19] LABS: Hematocrit (blood only) 28.5 % (42.0-52.0); Hemoglobin 9.2 g/dl (14.0-18.0); Mean Corpuscular Hemoglobin 29.6 pg (25.0-34.0); Mean Corpuscular Hgb Conc 32.3 g/dL (32.0-36.0); Mean Corpuscular Volume 91.6 fL (80.0-100.0); Nucleated RBC # (auto) 0.02 K/uL (0.00-0.12); Nucleated RBC % (auto) 0.1 %; Platelet Count 336 K/uL (130-400); RDW Coefficient of Variation 21.2 % (11.5-14.5); RDW Standard Deviation 69.4 fL (36.4-46.3); Red Blood Count 3.11 M/uL (4.70-6.10); White Blood Count 20.33 K/ul (4.8-10.8)
[2023-08-22 07:42] LABS: Anisocytosis Present; Basophils # (auto) 0.02 K/uL (0.00-0.20); Basophils % (auto) 0.1 %; Immature Granulocytes # (auto) 0.33 K/uL (0.01-0.20); Immature Granulocytes % (auto) 1.6 %; Lymphocytes # (auto) 0.25 K/uL (1.20-3.40); Lymphocytes % (auto) 1.2 %; Monocytes # (auto) 0.37 K/uL (0.11-0.59); Monocytes % (auto) 1.8 %; Neutrophils # (auto) 19.36 K/uL (1.40-6.50); Neutrophils % (auto) 95.3 %; Target Cells 2+
[2023-08-22 07:50] LABS: BUN Creatinine Ratio 21.7 (10-20); C Reactive Protein 1.29 mg/dl (0-0.5); Calcium 7.3 mg/dl (8.6-10.3); Creatinine Clr Calc Pharmacy 125.7 ml/min; Est GFR (African American) 124.9 ml/min; Est GFR (Non-African American) 107.8 ml/min; Magnesium 1.7 mg/dl (1.7-2.4); Potassium 4.4 mmol/L (3.5-5.1)
[2023-08-22] MEDS: FLUoxetine HCL 20 MG CAP PO SCH (08:29)
[2023-08-22] MEDS: LINACLOTIDE 145 MCG CAPSULE PO SCH (08:29)
[2023-08-22] MEDS: ASPIRIN 81 MG ECTAB PO SCH (08:29)
[2023-08-22] MEDS: ATORVASTATIN 20 MG TAB PO SCH (08:30)
[2023-08-22] MEDS ORDERED: LACTULOSE SYRUP 20 GM/30 ML UDC PO PRN (10:48)
--- NOTE | 2023-08-22 10:52 | Hospitalist Progress Note ---
Date of Service August 22, 2023 Assessment & Plan (1) Sepsis: Plan: Sepsis with associated hypoxic respiratory failure and hypotension present on admission. Fortunately, he improved with IV fluids and appropriate antibiotics and antifungals. No pressor support required. Ur cx with Enterococcus and Cinda Ureteral stents in place and due to be exchanged, but Urol recommends doing as outpt after treatment of infection With sacral wounds to the bone, no Surgical debridement recommended-has wound vac in place, Blood cxs NGTD-treating for soft tissue infection, but no oysterman abx for OM as per ID Also with aspiration PNA and Human Metapneumovirus infection/viral PNA Leukocytosis now from steroid therapy is improving. Remains afebrile Mentation much improved since 08/19 F/u UCx from 08/13 and 08/14 (done after garrison change, added sensitivities to Cinda-pending) Continue supportive care for viral infection Changed vancomycin to doxy for coverage of sacrum for ?overlying SSTI - MRSA screen positive Continue Unasyn 3g IV q6h (coverage of sacrum and UTI) Continue fluconazole 200mg PO daily (QTc 440, coverage of UTI) Plan for total 2 wks of abx for sacrum and UTI (note PNA treatment is completed at this point) with end date on 08/23 Could discharge on po doxycycline, augmentin, and fluconazole to end 08/23 if discharged before then but not likely (2) Acute respiratory failure with hypoxia: Plan: Oxygen requirements increased considerably on August 14. Chest x-ray was consistent with ARDS and he was transferred to the ICU on CPAP. Parenteral steroids were started this has helped. Chest x-ray on August 15 looked better and oxygen requirements decreased to 4LNC on 08/18--> worse again 08/19 requiring 13L HFNC on 08/20, now down to 10L Chest x-ray August 16, looked worse but CXR 08/20 with more pulm edema and CHF Continue to treat suspected aspiration pneumonitis with abx, aspiration precautions D-dimer is elevated but chest CTA x 2 negative for PE although studies are s uboptimal. BNP is normal and there is no evidence of cardiomegaly. He has no prior history of CHF. Cardiac echo reveals normal left ventricular systolic function. With worsening pulm edema CXR 08/20--> gave lasix 40mg IV x 1 which improved oxygenation but Na+ rising Give Diuril 500mg IV x 1 Continue nebs scheduled Speech therapy performed VFSS and he passed-continue pureed diet, aspiration pr ecautions (3) Metabolic encephalopathy: Plan: Remained confused but oriented to person and place with conversation tangential, also hallucinating, thinks there are dogs in the room--> now much improved since 08/19 after starting IV thiamine and correcting acidosis, decreasing steroid dose. Continue to treat underlying infections, lyte abnormalities Follow CBC, BMP Continue giving IV thiamine empirically. Is now off steroids Supportive care (4) Abnormal urinalysis: Plan: He has a catheter associated UTI. Garrison exchanged here after admission. With 2 species of Cinda (sensitivities pending) isolated along with Enterococcus faecalis. He is now on Unasyn and Diflucan. Appreciate urology consultation and recommendations. He has bilateral ureter stents in place. Urology indicates that these will be exchanged at a later date as an outpatient (5) Fecal impaction: Plan: Present on admission. Now resolved. Is back on oxycodone from home for chronic pain Resumed lactulose and Linzess but now having liquid stools--> make lactulose prn and keep daily Linzess (6) Right ischial pressure sore: Plan: Chronic. With associated osteomyelitis. Continue local care. Wound care consultation appreciated. He does have a WoundVac in place General surgery consultation appreciated. They indicate no need for debridement at this time Continue abx for soft tissue infection (7) Anemia: Plan: No overt blood loss except now does have some mild hematuria. Hgb 8-9 and drifted down to the 7s range Transfused 1 unit PRBCs August 17, for hemoglobin 7.4. Serial labs-hgb continues to improve at 9-10 Plan Chronic pain-continue percocet prn (lower dose than home dose), restarted ELavil but lower dose than home dose at 10 mg hs GERD-resumed PPI bid DVT proph- Lovenox SQ Dispo-continued stay; completed peer to peer with insurance for approval of LTACH 08/21 which was denied updated on 08/18 and left voicemail 08/20 Admission and Anticipated Discharge Date Admission Date: August 09, 2023 Subjective Pt more alert and oriented today. Denies pain. Is having loose stools. Is eating. Remains on 10L HFNC Tele with NSR, PVCs, rates 70-90s Physical Exam Constitutional: + ill appearing (chronically ill appeari ng) Respiratory: normal respiratory effort and + cough Auscultation: + rhonchi; no crackles and no wheezes Cardiovascular: Rate/Rhythm: regular rate and regular rhythm Heart Sounds: no murmur Extremities: + edema (trace edema legs bilat) Gastrointestinal (Abdomen): Inspection/Auscultation: normal bowel sounds; abdomen not distended Percussion/Palpation: abdomen soft and + hernia (reducible); abdomen nontender Psychiatric: Orientation: alert, oriented to person, oriented to place, oriented to time and cooperative Results & Data Results & Data Vital Signs (Past 12 Hours) Vital Signs Temp Pulse Pulse Resp BP Pulse Ox O2 Del Method 08/22/23 08:20 36.2 C L 101 H 22 122/75 Room Air 08/22/23 08:00 High Flow Nasal Cannula 08/22/23 08:00 78 08/22/23 07:37 83 24 92 Nasal Cannula 08/22/23 02:55 36.8 C 90 18 143/83 H 90 High Flow Nasal Cannula O2 Flow Rate 08/22/23 08:20 10 08/22/23 08:00 13 08/22/23 08:00 08/22/23 07:37 10 08/22/23 02:55 10 Laboratory Results CBC, BMP, magnesium, CRP reviewed PG Care Time/CCT Total # of Minutes Spent Total Time Spent with Patient: Total time spent is greater than 50% in coordination of care (as documented) at patient's floor/unit and/or counseling patient: Coding Level of Care Code 05998 SUB INP/OBS CARE 3/50MIN Diagnoses Sepsis with acute hypoxic respiratory failure without septic shock, due to unspecified organism A41.9; R65.20; J96.01 Sepsis type: sepsis due to unspecified organism Sepsis acute organ dysfunction status: with acute organ dysfunction Severe sepsis acute organ dysfunction type: acute respiratory failure Acute respiratory failure type: with hypoxia Severe sepsis shock status: without septic shock Acute respiratory failure with hypoxia J96.01 Metabolic encephalopathy G93.41 Abnormal urinalysis R82.90 Fecal impaction K56.41 Right ischial pressure sore L89.319 Anemia D64.9 (1) Sepsis Sepsis type: sepsis due to unspecified organism Sepsis acute organ dysfunction status: with acute organ dysfunction Severe sepsis acute organ dysfunction type: acute respiratory failure Acute respiratory failure type: with hypoxia Severe sepsis shock status: without septic shock Qualified Code(s): A41.9 - Sepsis, unspecified organism; R65.20 - Severe sepsis without septic shock; J96.01 - Acute respiratory failure with hypoxia
[2023-08-22] MEDS: CHLOROTHIAZIDE SODIUM 500 MG in DEXTROSE 5% 50 ML IV ONE (11:03)
[2023-08-22] MEDS: MAGNESIUM SULFATE / D5W 1 GM/100 ML BAG IV ONE (11:03)
[2023-08-23 06:37] LABS: Hematocrit (blood only) 29.1 % (42.0-52.0); Hemoglobin 9.5 g/dl (14.0-18.0); Mean Corpuscular Hemoglobin 29.2 pg (25.0-34.0); Mean Corpuscular Hgb Conc 32.6 g/dL (32.0-36.0); Mean Corpuscular Volume 89.5 fL (80.0-100.0); Mean Platelet Volume 10.6 fL (9.4-12.4); Nucleated RBC # (auto) 0.02 K/uL (0.00-0.12); Nucleated RBC % (auto) 0.1 %; Platelet Count 347 K/uL (130-400); RDW Coefficient of Variation 21.5 % (11.5-14.5); RDW Standard Deviation 67.9 fL (36.4-46.3); Red Blood Count 3.25 M/uL (4.70-6.10)
[2023-08-23 06:55] LABS: Albumin Level 1.7 gm/dl (3.4-5.0); Bilirubin Direct 0.1 mg/dl (0-0.2); Bilirubin,Total 0.3 mg/dl (0.2-1.0); C Reactive Protein 4.86 mg/dl (0-0.5); Calcium 7.4 mg/dl (8.6-10.3); Creatinine Clr Calc Pharmacy 153.2 ml/min; Est GFR (African American) 136.9 ml/min; Est GFR (Non-African American) 118.1 ml/min; Magnesium 1.9 mg/dl (1.7-2.4); Potassium 4.3 mmol/L (3.5-5.1); Total Protein 4.4 gm/dl (6.0-8.3)
[2023-08-23 07:19] LABS: Basophils # (auto) 0.03 K/uL (0.00-0.20); Basophils % (auto) 0.1 %; Eosinophils # (auto) 0.62 K/uL (0.00-0.50); Eosinophils % (auto) 2.8 %; Immature Granulocytes # (auto) 0.25 K/uL (0.01-0.20); Immature Granulocytes % (auto) 1.1 %; Lymphocytes # (auto) 0.55 K/uL (1.20-3.40); Lymphocytes % (auto) 2.4 %; Monocytes # (auto) 0.31 K/uL (0.11-0.59); Monocytes % (auto) 1.4 %; Neutrophils # (auto) 20.74 K/uL (1.40-6.50); Neutrophils % (auto) 92.2 %
[2023-08-23] MEDS: CHLOROTHIAZIDE SODIUM 500 MG in DEXTROSE 5% 50 ML IV ONE (10:05)
[2023-08-23] MEDS: MAGNESIUM SULFATE / D5W 1 GM/100 ML BAG IV ONE (10:12)
[2023-08-23] MEDS: SODIUM CHLOR 7% 4 ML NEB NEB SCH (10:27)
--- NOTE | 2023-08-23 14:52 | Hospitalist Progress Note ---
Date of Service August 23, 2023 Assessment & Plan (1) Sepsis: Plan: Sepsis with associated hypoxic respiratory failure and hypotension present on admission. Fortunately, he improved with IV fluids and appropriate antibiotics and antifungals. No pressor support required. Ur cx with Enterococcus and Cinda Ureteral stents in place and due to be exchanged, but Urol recommends doing as outpt after treatment of infection With sacral wounds to the bone, no Surgical debridement recommended-has wound vac in place, Blood cxs NGTD-treating for soft tissue infection, but no counter intelligence agent abx for OM as per ID Also with aspiration PNA and Human Metapneumovirus infection/viral PNA Leukocytosis now from steroid therapy. Remains afebrile Mentation much improved since 08/19 F/u UCx from 08/13 and 08/14 (done after garrison change, added sensitivities to Cinda-pending) Continue supportive care for viral infection Changed vancomycin to doxy for coverage of sacrum for ?overlying SSTI - MRSA screen positive Continue Unasyn 3g IV q6h (coverage of sacrum and UTI) Continue fluconazole 200mg PO daily (QTc 440, coverage of UTI) Plan for total 2 wks of abx for sacrum and UTI (note PNA treatment is completed at this point) with end date on 08/23 Could discharge on po doxycycline, augmentin, and fluconazole to end 08/23 if discharged before then but not likely (2) Acute respiratory failure with hypoxia: Plan: Oxygen requirements increased considerably on August 14. Chest x-ray was consistent with ARDS and he was transferred to the ICU on CPAP. Parenteral steroids were started this has helped. Chest x-ray on August 15 looked better and oxygen requirements decreased to 4LNC on 08/18--> worse again 08/19 requiring 13L HFNC on 08/20, now down to 10L but cannot wean down further D-dimer is elevated but chest CTA x 2 negative for PE although studies are suboptimal. BNP is normal and there is no evidence of cardiomegaly. Chest x-ray August 16, looked worse but CXR 08/20 with more pulm edema and CHF Continue to treat suspected aspiration pneumonitis with abx, aspiration precautions He has no prior history of CHF. Cardiac echo reveals normal left ventricular systolic function. With worsening pulm edema CXR 08/20--> gave lasix 40mg IV x 1 which improved oxygenation but Na+ rising Give Diuril 500mg IV x 1, diuresing, give another dose of Diuril today Trial of CPAP at nighttime and with naps to improve oxygenation Continue nebs scheduled Speech therapy performed VFSS and he passed-continue pureed diet, aspiration precautions (3) Metabolic encephalopathy: Plan: Remained confused but oriented to person and place with conversation tangential, also hallucinating, thinks there are dogs in the room--> now much improved since 08/19 after starting IV thiamine and correcting acidosis, decreasing steroid dose. Continue to treat underlying infections, lyte abnormalities Follow CBC, BMP Continue giving IV thiamine empirically. Is now off steroids Supportive care (4) Abnormal urinalysis: Plan: He has a catheter associated UTI. Garrison exchanged here after admission. With 2 species of Cinda (sensitivities pending) isolated along with Enterococcus faecalis. He is now on Unasyn and Diflucan. Appreciate urology consultation and recommendations. He has bilateral ureter stents in place. Urology indicates that these will be exchanged at a later date as an outpatient (5) Fecal impaction: Plan: Present on admission. Now resolved. Is back on oxycodone from home for chronic pain Resumed lactulose and Linzess but now having liquid stools--> made lactulose prn and keep daily Linzess (6) Right ischial pressure sore: Plan: Chronic. With associated osteomyelitis. Continue local care. Wound care consultation appreciated. He does have a WoundVac in place General surgery consultation appreciated. They indicate no need for debridement at this time Continue abx for soft tissue infection (7) Anemia: Plan: No overt blood loss except now does have some mild hematuria. Hgb 8-9 and drifted down to the 7s range Transfused 1 unit PRBCs August 17, for hemoglobin 7.4. Serial labs-hgb continues to improve at 9-10 Plan Chronic pain-continue percocet prn (lower dose than home dose), restarted ELavil but lower dose than home dose at 10 mg hs GERD-resumed PPI bid DVT proph- Lovenox SQ Dispo-continued stay; completed peer to peer with insurance for approval of LTACH 08/21 which was denied updated on 08/18 and left voicemail 08/20 Admission and Anticipated Discharge Date Admission Date: August 09, 2023 Subjective Patient reports a cough and does not feel much better. He reports he is eating. He is more mentally clear. He remains on 10 L high flow nasal cannula. Telemetry with normal sinus rhythm with rates in the 90s to 100s Physical Exam Constitutional: + ill appearing (chronically ill appeari ng) Respiratory: normal respiratory effort and + cough Auscultation: + rhonchi; no crackles and no wheezes Cardiovascular: Rate/Rhythm: regular rate and regular rhythm Heart Sounds: no murmur Extremities: + edema (trace edema legs bilat) Gastrointestinal (Abdomen): Inspection/Auscultation: normal bowel sounds; abdomen not distended Percussion/Palpation: abdomen soft and + hernia (reducible); abdomen nontender Psychiatric: Orientation: alert, oriented to person, oriented to place, oriented to time and cooperative Results & Data Results & Data Vital Signs (Past 12 Hours) Vital Signs Temp Pulse Pulse Pulse Resp BP Pulse Ox 08/23/23 11:12 08/23/23 10:28 101 H 18 91 08/23/23 10:24 37.0 C 104 H 22 107/69 94 08/23/23 08:12 103 H 08/23/23 08:02 36.6 C 102 H 20 132/89 94 08/23/23 07:29 108 H 18 90 08/23/23 03:00 36.5 C 99 H 20 141/77 H 91 O2 Del Method O2 Flow Rate 08/23/23 11:12 High Flow Nasal Cannula 08/23/23 10:28 Nasal Cannula 10 08/23/23 10:24 Nasal Cannula 10 08/23/23 08:12 08/23/23 08:02 High Flow Nasal Cannula 10 08/23/23 07:29 Nasal Cannula 10 08/23/23 03:00 High Flow Nasal Cannula 13 Laboratory Results CBC, BMP, magnesium, CRP, LFTs reviewed remains PG Care Time/CCT Total # of Minutes Spent Total Time Spent with Patient: Total time spent is greater than 50% in coordination of care (as documented) at patient's floor/unit and/or counseling patient: Coding Level of Care Code 26241 SUB INP/OBS CARE 2/35MIN Diagnoses Sepsis with acute hypoxic respiratory failure without septic shock, due to unspecified organism A41.9; R65.20; J96.01 Acute respiratory failure type: with hypoxia Sepsis acute organ dysfunction status: with acute organ dysfunction Sepsis type: sepsis due to unspecified organism Severe sepsis acute organ dysfunction type: acute respiratory failure Severe sepsis shock status: without septic shock Acute respiratory failure with hypoxia J96.01 Metabolic encephalopathy G93.41 Abnormal urinalysis R82.90 Fecal impaction K56.41 Right ischial pressure sore L89.319 Anemia D64.9 (1) Sepsis Acute respiratory failure type: with hypoxia Sepsis acute organ dysfunction status: with acute organ dysfunction Sepsis type: sepsis due to unspecified organism Severe sepsis acute organ dysfunction type: acute respiratory failure Severe sepsis shock status: without septic shock Qualified Code(s): A41.9 - Sepsis, unspecified organism; R65.20 - Severe sepsis without septic shock; J96.01 - Acute respiratory failure with hypoxia
[2023-08-24 09:24] LABS: Calcium 7.3 mg/dl (8.6-10.3); Magnesium 1.9 mg/dl (1.7-2.4); Potassium 4.5 mmol/L (3.5-5.1)
[2023-08-24 09:26] LABS: Hematocrit (blood only) 27.9 % (42.0-52.0); Mean Corpuscular Hgb Conc 32.3 g/dL (32.0-36.0); Mean Platelet Volume 10.8 fL (9.4-12.4); Platelet Count 314 K/uL (130-400); RDW Coefficient of Variation 21.2 % (11.5-14.5); RDW Standard Deviation 67.9 fL (36.4-46.3); White Blood Count 22.37 K/ul (4.8-10.8)
[2023-08-24 09:30] LABS: BUN Creatinine Ratio 25.6 (10-20); Creatinine Clr Calc Pharmacy 163.5 ml/min; Est GFR (African American) 143.2 ml/min; Est GFR (Non-African American) 123.6 ml/min
[2023-08-24 10:03] LABS: Anisocytosis Present; Basophils # (auto) 0.01 K/uL (0.00-0.20); Eosinophils # (auto) 0.44 K/uL (0.00-0.50); Immature Granulocytes # (auto) 0.19 K/uL (0.01-0.20); Immature Granulocytes % (auto) 0.8 %; Lymphocytes # (auto) 0.46 K/uL (1.20-3.40); Lymphocytes % (auto) 2.1 %; Monocytes # (auto) 0.29 K/uL (0.11-0.59); Monocytes % (auto) 1.3 %; Neutrophils # (auto) 20.98 K/uL (1.40-6.50); Neutrophils % (auto) 93.8 %; Polychromasia 1+; Target Cells 2+
[2023-08-24] MEDS: CHLOROTHIAZIDE SODIUM 500 MG in DEXTROSE 5% 50 ML IV ONE (11:34)
--- NOTE | 2023-08-24 14:36 | Hospitalist Progress Note ---
Date of Service August 24, 2023 Assessment & Plan (1) Sepsis: Plan: Sepsis with associated hypoxic respiratory failure and hypotension present on admission. Fortunately, he improved with IV fluids and appropriate antibiotics and antifungals. No pressor support required. Ur cx with Enterococcus and Cinda Ureteral stents in place and due to be exchanged, but Urol recommends doing as outpt after treatment of infection With sacral wounds to the bone, no Surgical debridement recommended-has wound vac in place, Blood cxs NGTD-treating for soft tissue infection, but no exterminator termite abx for OM as per ID Also with aspiration PNA and Human Metapneumovirus infection/viral PNA Leukocytosis now from steroid therapy-would expect this to improve by tomorrow now that he has been off steroids for 2 days. Remains afebrile Mentation significantly improved since 08/19 UCx from 08/14 (done after garrison change, added sensitivities to Cinda-pending) Continue supportive care for viral infection Changed vancomycin to doxy for coverage of sacrum for ?overlying SSTI - MRSA screen positive-last day of tx 08/23 Received Unasyn 3g IV q6h (coverage of sacrum and UTI) but just noticed it fell off MAY 2 days ago-will add on Augmentin x 2 more days through 08/26/23 Has now completed 2 weeks of fluconazole 200mg PO daily (QTc 440, coverage of UTI) Follow CBC, CMP, Mag, phos, CRP, and Procal in AM (2) Acute respiratory failure with hypoxia: Plan: Oxygen requirements increased considerably on August 14. Chest x-ray was consistent with ARDS and he was transferred to the ICU on CPAP. Parenteral steroids were started this has helped. Chest x-ray on August 15 looked better and oxygen requirements decreased to 4LNC on 08/18--> worse again 08/19 requiring 13L HFNC on 08/20, weaned down to 10L but cannot wean down further as of 08/23 D-dimer is elevated but chest CTA x 2 negative for PE although studies are suboptimal. BNP is normal, ECHO with preserved EF, but CXR 08/20 with more pulm edema and CHF Continue to treat suspected aspiration pneumonitis with abx, aspiration precautions Continue to diurese with Diuril 500mg IV daily-dose day by day (lasix caused worsening hypernatremia) Continue CPAP at nighttime and with naps to improve oxygenation Continue nebs scheduled and hypertonic saline nebs Speech therapy performed VFSS and he passed-continue pureed diet, aspiration precautions Follow CXR in AM Will ask PT/OT to see and asked RN to get him sitting up in chair or more upright in bed Consider PULM consult if not improving by Saturday (3) Metabolic encephalopathy: Plan: Was quite confused with conversation tangential, visual hallucinations, disoriented--> now much improved since 08/19 after starting IV thiamine and c orrecting acidosis,stopping steroids Continue to treat underlying infections, lyte abnormalities Follow CBC, BMP Continue thiamine but change to po for tomorrow Supportive care (4) Abnormal urinalysis: Plan: He has a catheter associated UTI. Garrison exchanged here after admission. With 2 species of Cinda (sensitivities pending) isolated along with Enterococcus faecalis. Treated with Unasyn and Diflucan. Appreciate urology consultation and recommendations. He has bilateral ureter stents in place. Urology indicates that these will be exchanged at a later date as an outpatient (5) Fecal impaction: Plan: Present on admission. Now resolved. Is back on oxycodone from home for chronic pain Resumed lactulose and Linzess but was having liquid stools--> made lactulose prn and keep daily Linzess (6) Right ischial pressure sore: Plan: Chronic. With associated chronic osteomyelitis. Continue local care. Wound care consultation appreciated. He does have a WoundVac in place General surgery consultation appreciated. They indicate no need for debridement at this time Continue abx for soft tissue infection with Augmentin, doxy (7) Anemia: Plan: No overt blood loss except now does have some mild hematuria. Hgb 8-9 and drifted down to the 7s range Transfused 1 unit PRBCs August 17, for hemoglobin 7.4. Serial labs-hgb remains stable at 9-10 Plan Chronic pain-continue percocet prn (lower dose than home dose), restarted ELavil but lower dose than home dose at 10 mg hs GERD-resumed PPI bid DVT proph- Lovenox SQ Dispo-continued stay; completed peer to peer with insurance for approval of LTACH 08/21 which was denied updated on 08/18 and left voicemail 08/20. WIll call on 08/23 Admission and Anticipated Discharge Date Admission Date: August 09, 2023 Subjective Patient is in good spirits today and says that he is feeling better. Denies shortness of breath or cough. He remains on 10 to 13 L high flow nasal cannula. He has not been out of bed to chair since admission. Telemetry with normal sinus rhythm normal rates Physical Exam Constitutional: + ill appearing (chronically ill appeari ng) Respiratory: normal respiratory effort Auscultation: + rhonchi (Occasional); no crackles and no wheezes Cardiovascular: Rate/Rhythm: regular rate and regular rhythm Heart Sounds: no murmur Extremities: + edema (trace edema legs bilat) Psychiatric: Orientation: alert, oriented to person, oriented to place, oriented to time and cooperative Results & Data Results & Data Vital Signs (Past 12 Hours) Vital Signs Temp Pulse Pulse Resp BP Pulse Ox O2 Del Method 08/24/23 14:13 36.8 C 100 H 20 102/70 90 High Flow Nasal Cannula 08/24/23 11:56 36.7 C 104 H 18 94/61 L 90 High Flow Nasal Cannula 08/24/23 11:13 High Flow Nasal Cannula 08/24/23 11:12 98 H 08/24/23 11:09 95 H 20 97 Nasal Cannula 08/24/23 07:36 104 H 22 96 CPAP 08/24/23 07:27 36.6 C 111 H 22 108/78 96 CPAP 08/24/23 03:10 91 H 16 97 08/24/23 02:55 96 H 15 135/81 97 CPAP O2 Flow Rate FiO2 08/24/23 14:13 13.0 08/24/23 11:56 10 08/24/23 11:13 10 08/24/23 11:12 08/24/23 11:09 12 08/24/23 07:36 60 08/24/23 07:27 08/24/23 03:10 60 08/24/23 02:55 Laboratory Results CBC, BMP, magnesium reviewed PG Care Time/CCT Total # of Minutes Spent Total Time Spent with Patient: Total time spent is greater than 50% in coordination of care (as documented) at patient's floor/unit and/or counseling patient: Coding Level of Care Code 68233 SUB INP/OBS CARE 2/35MIN Diagnoses Sepsis with acute hypoxic respiratory failure without septic shock, due to unspecified organism A41.9; R65.20; J96.01 Sepsis type: sepsis due to unspecified organism Sepsis acute organ dysfunction status: with acute organ dysfunction Severe sepsis acute organ dysfunction type: acute respiratory failure Acute respiratory failure type: with hypoxia Severe sepsis shock status: without septic shock Acute respiratory failure with hypoxia J96.01 Metabolic encephalopathy G93.41 Abnormal urinalysis R82.90 Fecal impaction K56.41 Right ischial pressure sore L89.319 Anemia D64.9 (1) Sepsis Sepsis type: sepsis due to unspecified organism Sepsis acute organ dysfunction status: with acute organ dysfunction Severe sepsis acute organ dysfunction type: acute respiratory failure Acute respiratory failure type: with hypoxia Severe sepsis shock status: without septic shock Qualified Code(s): A41.9 - Sepsis, unspecified organism; R65.20 - Severe sepsis without septic shock; J96.01 - Acute respiratory failure with hypoxia
[2023-08-24] MEDS: AMOXICILLIN/CLAVULANATE 875 MG TAB PO SCH (15:31)
[2023-08-25 07:30] LABS: Hematocrit (blood only) 28.8 % (42.0-52.0); Hemoglobin 9.1 g/dl (14.0-18.0); Mean Corpuscular Hemoglobin 29.5 pg (25.0-34.0); Mean Corpuscular Hgb Conc 31.6 g/dL (32.0-36.0); Mean Corpuscular Volume 93.5 fL (80.0-100.0); Mean Platelet Volume 10.7 fL (9.4-12.4); Platelet Count 299 K/uL (130-400); RDW Coefficient of Variation 20.5 % (11.5-14.5); RDW Standard Deviation 69.6 fL (36.4-46.3); Red Blood Count 3.08 M/uL (4.70-6.10)
[2023-08-25 07:45] LABS: Albumin Globulin Ratio 0.6 (0.9-2); Albumin Level 1.6 gm/dl (3.4-5.0); BUN Creatinine Ratio 20.5 (10-20); Bilirubin,Total 0.3 mg/dl (0.2-1.0); C Reactive Protein 21.37 mg/dl (0-0.5); Calcium 7.3 mg/dl (8.6-10.3); Creatinine Clr Calc Pharmacy 158.8 ml/min; Est GFR (African American) 141.9 ml/min; Est GFR (Non-African American) 122.4 ml/min; Globulin 2.6 gm/dl (2.5-4.0); Magnesium 1.9 mg/dl (1.7-2.4); Phosphorus 3.4 mg/dl (2.5-4.9); Potassium 5.3 mmol/L (3.5-5.1); Total Protein 4.2 gm/dl (6.0-8.3)
--- NOTE | 2023-08-25 07:54 | XRay Report ---
SINGLE VIEW CHEST CLINICAL HISTORY: Hypoxia. Pneumonia FINDINGS: An AP, portable, upright chest radiograph is compared to study dated 08/21/2023 and correlat ed with chest CT dated 08/15/2023. The heart is enlarged. There is pulmonary vascular congestion. Diff use multifocal airspace opacities are unchanged to modestly worsened as compared to 08/21/2023. There are small pleural effusions. No pneumothorax is seen. The skeletal structures are osteopenic. The bon y thorax is grossly intact. A medullary nail is noted in the right humerus. Thoracic spinal rods are in place. Suture material and surgical clips project over the upper abdomen. IMPRESSION: 1. Cardiomegaly with evidence of congestive failure. 2. Diffuse multifocal airspace opacities are unchanged to modestly worsened as compared to 08/21/2023. This could represent pulmonary edema, multifocal pneumonia, and/or ARDS. Clinical correlation will b e required and radiographic follow-up to resolution is recommended. 3. Small pleural effusions. ACT 112: Negative or not required by law. Electronically signed by: Luther Vasquez M.D. 08/25/2023 7:53 AM
[2023-08-25] MEDS: THIAMINE HCL 100 MG TAB PO SCH (08:02)
[2023-08-25 08:20] LABS: Anisocytosis Present; Basophils # (auto) 0.03 K/uL (0.00-0.20); Basophils % (auto) 0.1 %; Eosinophils # (auto) 0.35 K/uL (0.00-0.50); Eosinophils % (auto) 1.5 %; Immature Granulocytes # (auto) 0.22 K/uL (0.01-0.20); Lymphocytes # (auto) 0.65 K/uL (1.20-3.40); Lymphocytes % (auto) 2.8 %; Monocytes # (auto) 0.41 K/uL (0.11-0.59); Monocytes % (auto) 1.8 %; Neutrophils # (auto) 21.44 K/uL (1.40-6.50); Neutrophils % (auto) 92.8 %; Polychromasia 1+; Target Cells 1+
[2023-08-25] MEDS ORDERED: VANCOMYCIN CONSULT ACTIVE PRN (08:22)
[2023-08-25] MEDS ORDERED: VANCOMYCIN HCL 1,000 MG in SODIUM CHLORIDE 0.9% 250 ML IV SCH (08:30)
[2023-08-25 10:02] LABS: BUN Creatinine Ratio 19.6 (10-20); Calcium 7.3 mg/dl (8.6-10.3); Creatinine Clr Calc Pharmacy 151.9 ml/min; Est GFR (African American) 139.3 ml/min; Est GFR (Non-African American) 120.2 ml/min; Potassium 4.6 mmol/L (3.5-5.1)
[2023-08-25] MEDS: CEFEPIME 2,000 MG in SYRINGE 0 ML IV SCH (10:17)
[2023-08-25] MEDS: VANCOMYCIN HCL 1,500 MG in SODIUM CHLORIDE 0.9% 500 ML IV ONE (10:17)
[2023-08-25 10:43] LABS: Appearance Urine Cloudy (Clear); Bilirubin Urine Negative (Negative); Blood Urine 3+ (Negative); Color Urine Red; Glucose Urine UA Negative (Negative); Ketones Urine Negative (Negative); Leukocyte Esterase Urine 3+ (Negative); Nitrite Urine Negative (Negative); Protein Urine 2+ (Negative); Urobilinogen Urine Negative (Negative); pH Urine 7.5 (4.5-7.5)
--- NOTE | 2023-08-25 10:53 | Pharmacy Report ---
Pharmacy PK ABX Note - Date of Service August 25, 2023 - Assessment and Plan Assessment 08/24: * 63 yo M started on Vancomycin and Cefepime for pneumonia this morning. * Patient has been admitted for extended period and did received vanc previously during admission. Will use info to guide current dosing. * Afebrile. White count of 23k. SCr at 0.46. Patient is paraplegic. Plan Vancomycin * Loading dose: 1500 mg IV x 1 * Maintenance dose: 750 mg IV every 12 hours * Predicted AUC/KONSTANTIN at steady state: 419 mg/L.hr * Random level ordered for 08/27/23 Cefepime * 2000 mg IV every 8 hours Pharmacy will continue to follow and will adjust dose/frequency as necessary. Thank you. Pharmacy has transitioned to AUC monitoring for vancomycin. AUC/KONSTANTIN is the preferred PK/PD target and is associated with decreased risk of nephrotoxicity compared to traditional trough targets.
[2023-08-25 11:03] LABS: Bacteria Urine 2+ (None Seen); RBC Urine >20 /hpf (0-2); WBC Urine 21-50 /hpf (0-5)
--- NOTE | 2023-08-25 13:01 | Hospitalist Progress Note ---
Date of Service August 25, 2023 Assessment & Plan (1) Sepsis: Plan: Sepsis with associated hypoxic respiratory failure and hypotension present on admission. He improved with IV fluids and appropriate antibiotics and antifungals. No pressor support required. Ur cx with Enterococcus and Cinda Ureteral stents in place and due to be exchanged, but Urol recommends doing as outpt after treatment of infection With sacral wounds to the bone, no Surgical debridement recommended-has wound vac in place, Blood cxs NGTD-treating for soft tissue infection, but no termite control service representative abx for OM as per ID Also with aspiration PNA and Human Metapneumovirus infection/viral PNA UCx from 08/14 (done after garrison changed, added sensitivities to Cinda-pending) Supportive care for viral infection Received vancomycin and then transitioned to doxy for coverage of sacrum for ?overlying SSTI - MRSA screen positive-last day of tx 08/23 Received Unasyn 3g IV q6h (coverage of sacrum and UTI) and then Augmentin through 08/24 Has now completed 2 weeks of fluconazole 200mg PO daily (QTc 440, coverage of UTI) On 08/24, WBC count continues to trend upward despite being off steroids for many days-now at 23. CRP now significantly elevated at 21.3, procalcitonin quite elevated at 19, but patient remains normotensive and afebrile He is significantly hypoxemic and is now requiring 15 L of high flow nasal cannula alternating with CPAP at FiO2 60% UA repeated on 08/24 after repeat exchange of Garrison catheter-again shows infection, but given abnormal chest x-ray on 08/24 worsening infiltrates, elevated procalcitonin and CRP and hypoxemia, suspect pneumonia more causative. His sacral and ischial wounds do not appear acutely infected -Presumed hospital-acquired pneumonia versus UTI versus ongoing infection with osteomyelitis in the sacral wounds -Start cefepime, Flagyl, vancomycin -Will reengage infectious disease on Saturday for further recommendations -Follow CBC, CMP, CRP, procalcitonin -Follow urine culture -Check sputum culture if can be given (2) Acute respiratory failure with hypoxia: Plan: Oxygen requirements increased considerably on August 14. Chest x-ray was consistent with ARDS and he was transferred to the ICU on CPAP. Parenteral steroids were started this helped. Chest x-ray on August 15 looked better and oxygen requirements decreased to 4LNC on 08/18--> worse again 08/19 requiring 13L HFNC on 08/20, weaned down to 10L but now back up to 15 L high flow nasal cannula alternating with CPAP 60% FiO2 on 08/24 Chest x-ray on 08/24 appears much worse with multifocal opacities, pulmonary edema D-dimer is elevated but chest CTA x 2 negative for PE although studies are suboptimal. BNP is now mildly elevated, ECHO with preserved EF Treated previously for aspiration pneumonitis with Unasyn and then Augmentin Diuresed with Diuril 500mg IV daily x 3 days as he was hypernatremic-will now give Lasix 40 Mg IV twice daily Continue CPAP at nighttime and with naps to improve oxygenation Appreciate pulmonology consult on 08/24 Continue nebs scheduled and hypertonic saline nebs Speech therapy performed VFSS and he passed-continue pureed diet, aspiration precautions Follow CXR Resuming broad-spectrum antibiotics as above for healthcare associated pneumonia (3) Pneumonia: Plan: As above (4) Metabolic encephalopathy: Plan: Much improved since 08/19 after starting IV thiamine and correcting acidosis,stopping steroids Continue to treat underlying infections, lyte abnormalities Follow CBC, BMP Continue thiamine p.o. supplementation Supportive care (5) Right ischial pressure sore: Plan: Chronic. With associated chronic osteomyelitis. Continue local care. Wound care consultation appreciated. He does have a WoundVac in place General surgery consultation appreciated. They indicate no need for debridement at this time Completed course of antibiotics with Unasyn/Augmentin, vancomycin/doxy, and Diflucan for 2 weeks, now back on cefepime, vancomycin, and Flagyl as above for broad-spectrum coverage with recurrent sepsis (6) Infection due to human metapneumovirus (hMPV): Plan: Noted, supportive care, with multifocal opacities on chest x-ray could be viral pneumonia (7) Acute UTI: Plan: He has a catheter associated UTI. Garrison exchanged here after admission. With 2 species of Cinda (sensitivities pending) isolated along with Enterococcus faecalis. Treated with Unasyn and Diflucan. Appreciate urology consultation and recommendations. He has bilateral ureter stents in place. Urology indicates that these will be exchanged at a later date as an outpatient Repeat UA and Garrison exchange in 08/24-remains with evidence of infection Follow urine culture and continue antibiotics as above (8) Fecal impaction: Plan: Present on admission. Now resolved. Is back on oxycodone from home for chronic pain Resumed lactulose and Linzess but was having liquid stools--> made lactulose prn and keep daily Linzess (9) Anemia: Plan: No overt blood loss except now does have some mild hematuria. Hgb 8-9 and drifted down to the 7s range Transfused 1 unit PRBCs August 17, for hemoglobin 7.4. Serial labs-hgb remains stable at 9-10 Plan Chronic pain-continue percocet prn (lower dose than home dose), restarted ELavil but lower dose than home dose at 10 mg hs GERD-resumed PPI bid DVT proph- Lovenox SQ Dispo-continued stay; completed peer to peer with insurance for approval of LTACH 08/21 which was denied updated on 08/23 Admission and Anticipated Discharge Date Admission Date: August 09, 2023 Subjective Pt remains profoundly hypoxemic, now requiring 15LNC and on CPAP now. He denies SOB. has pain in his bottom. He is frustrated with the fact that he is not getting much better. He does tell me that if his respiratory status worsened, he would want to go on a ventilator and he wants to "stay alive." Tele with NSR,ST rates 90-100s Physical Exam Constitutional: + ill appearing (chronically ill appeari ng) Respiratory: normal respiratory effort and + cough Auscultation: + rhonchi (Occasional); no crackles and no wheezes Cardiovascular: Rate/Rhythm: regular rate and regular rhythm Heart Sounds: no murmur Extremities: + edema (trace edema legs bilat) Gastrointestinal (Abdomen): Inspection/Auscultation: normal bowel sounds; abdomen not distended Percussion/Palpation: abdomen soft and + hernia (reducible); abdomen nontender Skin: Wound VAC in place on sacrum with bottom portion peeling up to reveal large open wound down to the bone over the ischium, second wound with some darker brown scab, multiple other smaller wounds on the sacrum and buttocks, no surrounding erythema, minimal drainage and wound vacuum Psychiatric: Orientation: alert, oriented to person, oriented to place, oriented to time and cooperative Results & Data Results & Data Vital Signs (Past 12 Hours) Vital Signs Temp Pulse Pulse Pulse Resp BP Pulse Ox 08/25/23 12:46 101 H 18 95 08/25/23 11:20 97 H 08/25/23 11:15 08/25/23 11:13 95 H 20 95 08/25/23 10:22 36.5 C 98 H 22 119/76 92 08/25/23 08:00 112 H 114/72 89 L 08/25/23 07:20 101 H 20 94 08/25/23 07:18 36.9 C 108 H 20 136/80 96 08/25/23 03:29 95 H 16 95 08/25/23 02:59 36.4 C L 97 H 16 128/82 98 O2 Del Method O2 Flow Rate FiO2 08/25/23 12:46 60 08/25/23 11:20 08/25/23 11:15 High Flow Nasal Cannula 13 08/25/23 11:13 Nasal Cannula 13 08/25/23 10:22 High Flow Nasal Cannula 13.0 08/25/23 08:00 High Flow Nasal Cannula 15 08/25/23 07:20 BiPAP 60 08/25/23 07:18 BiPAP 08/25/23 03:29 60 08/25/23 02:59 BiPAP Laboratory Results CBC, BMP x 2, CRP, Procal, LFTs, BNP reviewed UA reviewed PG Care Time/CCT Total # of Minutes Spent Total Time Spent with Patient: Total time spent is greater than 50% in coordination of care (as documented) at patient's floor/unit and/or counseling patient: Coding Level of Care Code 53160 SUB INP/OBS CARE 3/50MIN Diagnoses Sepsis with acute hypoxic respiratory failure without septic shock, due to unspecified organism A41.9; R65.20; J96.01 Acute respiratory failure type: with hypoxia Sepsis acute organ dysfunction status: with acute organ dysfunction Sepsis type: sepsis due to unspecified organism Severe sepsis acute organ dysfunction type: acute respiratory failure Severe sepsis shock status: without septic shock Acute respiratory failure with hypoxia J96.01 Pneumonia J18.9 Metabolic encephalopathy G93.41 Right ischial pressure sore L89.319 Infection due to human metapneumovirus (hMPV) B34.8 Acute UTI N39.0 Fecal impaction K56.41 Anemia D64.9 (1) Sepsis Acute respiratory failure type: with hypoxia Sepsis acute organ dysfunction status: with acute organ dysfunction Sepsis type: sepsis due to unspecified organism Severe sepsis acute organ dysfunction type: acute respiratory failure Severe sepsis shock status: without septic shock Qualified Code(s): A41.9 - Sepsis, unspecified organism; R65.20 - Severe sepsis without septic shock; J96.01 - Acute respiratory failure with hypoxia
[2023-08-25] MEDS: metroNIDAZOLE 500 MG/100 ML BAG IV SCH (14:51)
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
[2023-08-25] MEDS: FUROSEMIDE 40 MG/4 ML VIAL IV ONE (18:18)
[2023-08-25] MEDS: SACCHAROMYCES BOULARDII 250 MG CAP PO SCH (18:18)
[2023-08-25] MEDS: VANCOMYCIN HCL 750 MG in SODIUM CHLORIDE 0.9% 250 ML IV SCH (21:58)
[2023-08-26 07:55] LABS: Mean Corpuscular Hemoglobin 29.4 pg (25.0-34.0); Mean Corpuscular Hgb Conc 32.1 g/dL (32.0-36.0); Mean Corpuscular Volume 91.5 fL (80.0-100.0); Mean Platelet Volume 11.2 fL (9.4-12.4); Platelet Count 307 K/uL (130-400); RDW Coefficient of Variation 20.3 % (11.5-14.5); RDW Standard Deviation 67.7 fL (36.4-46.3); Red Blood Count 3.06 M/uL (4.70-6.10); White Blood Count 22.92 K/ul (4.8-10.8)
[2023-08-26 07:59] LABS: Albumin Globulin Ratio 0.6 (0.9-2); Albumin Level 1.5 gm/dl (3.4-5.0); BUN Creatinine Ratio 22.2 (10-20); Bilirubin,Total 0.3 mg/dl (0.2-1.0); C Reactive Protein 23.3 mg/dl (0-0.5); Calcium 7.2 mg/dl (8.6-10.3); Creatinine Clr Calc Pharmacy 122.8 ml/min; Est GFR (African American) 130.4 ml/min; Est GFR (Non-African American) 112.5 ml/min; Globulin 2.6 gm/dl (2.5-4.0); Magnesium 1.9 mg/dl (1.7-2.4); Potassium 4.2 mmol/L (3.5-5.1); Total Protein 4.1 gm/dl (6.0-8.3)
[2023-08-26 08:26] LABS: Anisocytosis Present; Basophils # (auto) 0.03 K/uL (0.00-0.20); Basophils % (auto) 0.1 %; Eosinophils # (auto) 0.25 K/uL (0.00-0.50); Eosinophils % (auto) 1.1 %; Immature Granulocytes # (auto) 0.24 K/uL (0.01-0.20); Lymphocytes # (auto) 0.77 K/uL (1.20-3.40); Lymphocytes % (auto) 3.4 %; Monocytes # (auto) 0.78 K/uL (0.11-0.59); Monocytes % (auto) 3.4 %; Neutrophils # (auto) 20.85 K/uL (1.40-6.50); Polychromasia 1+; Target Cells 2+
[2023-08-26] MEDS: FUROSEMIDE 40 MG/4 ML VIAL IV SCH (09:04)
--- NOTE | 2023-08-26 14:41 | Pulmonology Progress Note ---
Date of Service August 26, 2023 Assessment & Plan (1) Pneumonia: (2) Infection due to human metapneumovirus (hMPV): (3) Hypoxemia: Plan Impression: 63-year-old male with multiple medical issues and multiple infectious etiologies now with increasing oxygen requirement of unclear etiology. He did have diastolic dysfunction on his echocardiogram and his diuretics have largely been held. His intake and output shows that he is positive almost 4 L since hospitalization despite being negative the last 3 to 4 days. Recommendations: 1. Hypoxemic respiratory failure: Differential would include infectious etiologies including atypical infection, inflammatory etiologies including alveolar hemorrhage, organizing pneumonia, and noncardiogenic atypical pulmonary edema. Would treat for potentially reversible causes. Recommend restarting the patient's Lasix and see how he does. Positive airway pressure ventilation may be beneficial in the short-term but would agree with prior recommendations to pursue palliative care consultation and determine ultimate goals of therapy. T he patient is too ill to consider bronchoscopy at this point in time. Should he fail, intubation mechanical ventilation may be necessary. Pulmonary infiltrates may be inflammatory or potentially related to medications. If the patient fails and is intubated, bronchoscopy could be considered at that point in time 2. Recommend reengaging infectious disease. Would defer antimicrobial therapy to them. Patient's overall prognosis is guarded at this point in time. He certainly has possibility for clinical deterioration. Again defining goals of therapy in this debilitated patient with multiple medical issues would be highly reasonable at this point in time. Pulmonary will follow from the periphery at this time. Please call with questions. Thank you for the consult Admission and Anticipated Discharge Date Admission Date: August 09, 2023 Subjective Patient appears stable on oxygen requirements at this time. No major issues overnight. Review of Systems Review of Systems: All systems reviewed & are unremarkable except as noted in HPI & below Physical Exam Constitutional: + ill appearing (chronically ill appeari ng) Respiratory: normal respiratory effort and + cough Auscultation: + rhonchi (Occasional); no crackles and no wheezes Cardiovascular: Rate/Rhythm: regular rate and regular rhythm Heart Sounds: no murmur Extremities: + edema (trace edema legs bilat) Gastrointestinal (Abdomen): Inspection/Auscultation: normal bowel sounds; abdomen not distended Percussion/Palpation: abdomen soft and + hernia (reducible); abdomen nontender Psychiatric: Orientation: alert, oriented to person, oriented to place, oriented to time and cooperative Results & Data Results & Data Vital Signs (Past 12 Hours) Vital Signs Temp Pulse Pulse Resp BP Pulse Ox O2 Del Method 08/26/23 11:22 106 H 18 94 08/26/23 11:22 106 H 18 94 CPAP 08/26/23 11:04 36.5 C 105 H 20 91/59 L 95 CPAP 08/26/23 09:16 CPAP 08/26/23 07:42 36.6 C 111 H 20 112/74 96 CPAP 08/26/23 07:26 100 H 20 94 08/26/23 07:25 100 H 20 95 CPAP 08/26/23 03:01 36.3 C L 101 H 18 119/78 95 CPAP FiO2 08/26/23 11:22 60 08/26/23 11:22 60 08/26/23 11:04 08/26/23 09:16 08/26/23 07:42 08/26/23 07:26 60 08/26/23 07:25 60 08/26/23 03:01 PG Care Time/CCT Total # of Minutes Spent Total Time Spent with Patient: Total time spent is greater than 50% in coordination of care (as documented) at patient's floor/unit and/or counseling patient: Coding Level of Care Code 77378 SUB INP/OBS CARE 2/35MIN Diagnoses Pneumonia J18.9 Infection due to human metapneumovirus (hMPV) B34.8 Hypoxemia R09.02
--- NOTE | 2023-08-26 15:51 | Infectious Disease Progress Nt ---
Date of Service August 26, 2023 Assessment & Plan (1) Hypoxemia: (2) Infection due to human metapneumovirus (hMPV): (3) Sacral decubitus ulcer: (4) Osteomyelitis: (5) Complicated UTI (urinary tract infection): (6) Paraplegia: Plan 63yo M with h/o T4 paraplegia, neurogenic bladder s/p indwelling Garrison and ureteral stents (last stent exchange May 2023), prior h/o UTI/pyelo, asplenia, HTN, HLD who presented on 08/08 with confusion and somnolence. He initially presented to [facility] 08/01 where he was treated with antibiotics and lactulose for elevated ammonia. Patient had improved but became more somnolent and confused so patient was signed out AMA from [facility] and brought to [facility]. Per chart (urology note), he had sudden onset of pain into flank going down and radiating into groin and back in waves. In the ED, he was hypotensive to 70s which improved with IVFs. Afebrile, on 2-3L NC. WBC 14.3, Cr 0.59. Elevated d dimer. AST/ALT in 50s. CRP 8.47. PCT 0.91. UA with >50 WBC, 3-5 epithelial cells, yeast. CXR negative. CT head neg. CTAP with large stool ball within the distal sigmoid colon and rectum, proximal to this colon is distended and fluid-filled suggesting distal large bowel obstruction 2/2 fecal impaction; c/f stercoral colitis; bl hydroureteronephrosis unchanged; bl urothelial thickening with bl periureteral edema/fat stranding thats progressed, could be chronic irritation from ureteral stents or infectious pyelitis; findings of possible aspiration PNA in RLL and opacities in lung bases; bl sacral decubitus ulcers with mild erosion of bl ischial tuberosities and coccyx, similar to prior c/w acute on chronic OM. He was admitted with multiple issues and started on empiric abx. Had BM with tx of fecal impaction. Was seen by urology, no plan for intervention, likely stent exchange outpatient. He was seen by surgery and nonoperative chemical debridement advised for sacrum. CXR on 08/12 with mild pulmonary vascular congestion. CTA chest limited, increased bl lower lobe alveolar opacities favoring aspiration, extensive upper lobe GGO favoring infectious etiology, pulmonary edema could appear similar, small bl pleural effusions, left hydronephrosis. WBC initially downtrended, but now up to 16.62. ID consulted 08/13 for sacral OM. UA 08/13 after garrison exchange with >50 WBC. Course c/b hypoxia, increased WOB, and lethargy o/n on 08/13-08/14. Patient placed on bipap with improvement. CTA chest negative for PE; moderate esophageal hiatal hernia with esophageal thickening; increased burden of GGO within the lungs most prominently in RML and RUL favoring infectious in nature, sequela of pulmonary edema possible; diffuse soft tissue edema suggesting anasarca. PCT 1.03. Lactate 2.8. D dimer 1020. RPP with Human metapneumovirus. Swallow study with aspiration noted. Planned for 14 days of abx/antifungal which would cover UTI, sacral SSTI, and PNA. Course c/b worsening leukocytosis and hypoxia, now on CPAP. CRP 23, PCT 19.2. UA with 21-50 WBC. CXR with diffuse multifocal airspace opacities, unchanged to modestly worsened, could represent pulmonary edema, multifocal PNA, and/or ARDS. Unclear why he would have developed worsening PNA while he has been on broad spectrum antimicrobials, including antifungal. CXR does mention pulmonary edema, he is getting Lasix. May consider CT chest for better evaluation of lungs. I will order COVID test and also send blood and sputum cultures. # Leukocytosis # Acute respiratory failure with hypoxia # Recent human metapneumovirus infection # c/f aspiration PNA s/p 10d of abx # Sacral ulcers with underlying OM s/p 14d of abx for SSTI # Bl hydroureteronephrosis with findings of possible chronic irritation of ureteral stents vs infectious pyelitis, cx E faecalis and Cinda s/p abx/fluconazole x 14d # Fecal impaction with stercoral colitis s/p BM - Melanie ordered repeat COVID test - Melanie also ordered blood and sputum cultures - consider repeating CT chest - continue on empiric vancomycin, cefepime and flagyl for now - diuresis per primary team ID will continue to follow. If questions or concerns, contact Infectious Disease Call Center . Amisha Santana MD [facility], Division of Infectious Diseases [facility]: [phone] Admission and Anticipated Discharge Date Admission Date: August 09, 2023 Subjective Subsequent visit was provided via telemedicine using two-way real-time interactive telecommunication between the patient and the telemedicine provider. For the duration of the visit, the provider was performing the assessment from a different facility than the patient. This includesuse of bluetooth stethoscope forauscultationperformed by the telepresenter that the telemedicine provider can hear if described in the physical exam. Machinist Instructor contact information: Please call [facility] Call Center [phone]. (Phone Number For Physician Use Only) After establishing a telemedicine visit, patient was: Patient was verified with two unique identifiers, Patient/authorized rep acknowledged consent and understanding and Gave permission to continue telehealth session Time Spent with Patient: Subsequent => 55 min Patient report feeling short of breath, has nebulizer mask. He denies having any diarrhea or pain. Physical Exam Physical Exam: General: Awake, alert HEENT: mmm Neck: supple Lungs: no crackles Heart: regular, no appreciable murmurs Abdomen: soft, NT/ND Ext: no appreciable edema Skin: no rash : garrison with dark red urine, wound vac over sacrum with minimal drainage Results & Data Vital Signs (Past 12 Hours) Vital Signs Temp Pulse Pulse Resp BP Pulse Ox O2 Del Method 08/26/23 14:55 107 H 18 96 Nasal Cannula 08/26/23 11:22 106 H 18 94 08/26/23 11:22 106 H 18 94 CPAP 08/26/23 11:04 36.5 C 105 H 20 91/59 L 95 CPAP 08/26/23 09:16 CPAP 08/26/23 07:42 36.6 C 111 H 20 112/74 96 CPAP 08/26/23 07:26 100 H 20 94 08/26/23 07:25 100 H 20 95 CPAP O2 Flow Rate FiO2 08/26/23 14:55 10 08/26/23 11:22 60 08/26/23 11:22 60 08/26/23 11:04 08/26/23 09:16 08/26/23 07:42 08/26/23 07:26 60 08/26/23 07:25 60 Laboratory Results Labs reviewed. Diagnostic Findings Imaging reviewed. (3) Sacral decubitus ulcer Pressure injury stage: unspecified pressure injury stage Qualified Code(s): L89.159 - Pressure ulcer of sacral region, unspecified stage
[2023-08-26] MEDS ORDERED: DEXTROSE 50% 50 ML SYRINGE IV PRN (17:06)
[2023-08-26] MEDS ORDERED: CARBOHYDRATES FOR HYPOGLYCEMIA PO PRN (17:06)
[2023-08-26] MEDS ORDERED: GLUCOSE 10 TAB/TUBE PO PRN (17:06)
[2023-08-26] MEDS ORDERED: GLUCAGON FOR INJ 1 MG VIAL SQ PRN (17:06)
[2023-08-26] MEDS ORDERED: GLUCOSE 40% GEL 15 GM TUBE PO PRN (17:06)
--- NOTE | 2023-08-26 17:15 | Hospitalist Progress Note ---
Date of Service August 26, 2023 Assessment & Plan (1) Sepsis: Plan: Sepsis with associated hypoxic respiratory failure and hypotension present on admission. He improved with IV fluids and appropriate antibiotics and antifungals. No pressor support required. Ur cx with Enterococcus and Cinda Ureteral stents in place and due to be exchanged, but Urol recommends doing as outpt after treatment of infection With sacral wounds to the bone, no Surgical debridement recommended-has wound vac in place, Blood cxs NGTD-treating for soft tissue infection, but no intermediate card tender abx for OM as per ID Also with aspiration PNA and Human Metapneumovirus infection/viral PNA UCx from 08/14 done after garrison changed with Cinda sensitive to fluconazole Supportive care for viral infection Received vancomycin and then transitioned to doxy for coverage of sacrum for ?overlying SSTI - MRSA screen positive-last day of tx 08/23 Received Unasyn 3g IV q6h (coverage of sacrum and UTI) and then Augmentin through 08/24 Completed 2 weeks of fluconazole 200mg PO daily (QTc 440, coverage of UTI) On 08/24, WBC count continues to trend upward despite being off steroids for many days-now at 23. CRP now significantly elevated at 21.3, procalcitonin quite elevated at 19, but patient remains normotensive and afebrile He is significantly hypoxemic and is now requiring 15 L of high flow nasal cannula alternating with CPAP at FiO2 60% UA repeated on 08/24 after repeat exchange of Garrison catheter-again shows infection, but given abnormal chest x-ray on 08/24 worsening infiltrates, elevated procalcitonin and CRP and hypoxemia, suspect pneumonia more causative. His sacral and ischial wounds do not appear acutely infected -Presumed hospital-acquired pneumonia versus UTI versus ongoing infection with osteomyelitis in the sacral wounds -continue cefepime, Flagyl, vancomycin, consider adding Diflucan back on for Cinda in repeat Ur cx but defer to ID-has indwelling ureteral stents that are likely colonized with Cinda -no sputum cx collected as he cannot cough any sputum up -Reconsult infectious disease-check COVID/Flu swab, blood cxs -Follow CBC, CMP, CRP, procalcitonin (2) Acute respiratory failure with hypoxia: Plan: Oxygen requirements increased considerably on August 14. Chest x-ray was consistent with ARDS and he was transferred to the ICU on CPAP. Parenteral steroids were started -this helped but made him very confused and were weaned off CXR August 15 better and oxygen requirements decreased to 4LNC on 08/18--> worse again 08/19 requiring 13L HFNC on 08/20. Remains on 10-15LNC alternating with CPAP 60% FiO2 Chest x-ray on 08/24 appears much worse with multifocal opacities, pulmonary edema D-dimer is elevated but chest CTA x 2 negative for PE although studies are suboptimal. BNP is now mildly elevated, ECHO with preserved EF Treated previously for aspiration pneumonitis with Unasyn and then Augmentin Diuresed with Diuril 500mg IV daily x 3 days as he was hypernatremic-now on Lasix 40 Mg IV twice daily---> working well--> weight way down and I/Os now almost even for his stay Continue CPAP at nighttime and with naps to improve oxygenation Appreciate pulmonology consult on 08/24 Continue nebs scheduled and hypertonic saline nebs Speech therapy performed VFSS and he passed-continue pureed diet, aspiration precautions Follow CXR Continue broad-spectrum antibiotics as above for healthcare associated pneumonia (3) Pneumonia: Plan: As above (4) Metabolic encephalopathy: Plan: Much improved since 08/19 after starting IV thiamine and correcting acidosis,stopping steroids Continue to treat underlying infections, lyte abnormalities Follow CBC, BMP Continue thiamine p.o. supplementation Now with some hypoglycemia causing worsening mentation--> monitor blood glucose and give dextrose prn Supportive care (5) Right ischial pressure sore: Plan: Chronic. With associated chronic osteomyelitis. Continue local care. Wound care consultation appreciated. He does have a WoundVac in place General surgery consultation appreciated. They indicate no need for debridement at this time Completed course of antibiotics with Unasyn/Augmentin, vancomycin/doxy, and Diflucan for 2 weeks, now back on cefepime, vancomycin, and Flagyl as above for broad-spectrum coverage with recurrent sepsis (6) Infection due to human metapneumovirus (hMPV): Plan: Noted, supportive care, with multifocal opacities on chest x-ray could be viral pneumonia (7) Acute UTI: Plan: He has a catheter associated UTI. Garrison exchanged here after admission. With 2 species of Cinda isolated along with Enterococcus faecalis. Treated with Unasyn and Diflucan. Appreciate urology consultation and recommendations. He has bilateral ureter stents in place. Urology indicates that these will be exchanged at a later date as an outpatient Repeat UA and Garrison exchange in 08/24-remains with evidence of infection Urine culture again with Diflucan-likely colonized on ureteral stents-defer to ID for treatment? Seems more likely he has a PNA causing his issues at this p oint (8) Fecal impaction: Plan: Present on admission. Now resolved. Is back on oxycodone from home for chronic pain COntinue daily Linzess Now no BM since 08/22--> resume lactulose bid (9) Anemia: Plan: No overt blood loss except now does have some mild hematuria. Hgb 8-9 and drifted down to the 7s range Transfused 1 unit PRBCs August 17, for hemoglobin 7.4. Serial labs-hgb remains stable at 9-10 Plan Chronic pain-continue percocet prn (lower dose than home dose), restarted ELavil but lower dose than home dose at 10 mg hs GERD-resumed PPI bid DVT proph- Lovenox SQ Dispo-continued stay; completed peer to peer with insurance for approval of LTACH 08/21 which was denied. But if his ongoing significant hypoxemia continues, insurance recommended to reapply for LTACH approval in 1 week around 08/29/23 updated on 08/23 Admission and Anticipated Discharge Date Admission Date: August 09, 2023 Subjective Pt was on CPAP all night and down to 10L HFNC. He has been having some hypoglycemia today and really not eating much at all, required amp of D50 He was a bit more confused with the hypoglycemia and O2 sats dropped. Placed him on CPAP He denies abd pain and no BM in 3 days Tele with NST-ST rates 90-100s Physical Exam Constitutional: + ill appearing (chronically ill appeari ng) Respiratory: normal respiratory effort Auscultation: + rhonchi (Occasional); no crackles and no wheezes Cardiovascular: Rate/Rhythm: regular rate and regular rhythm Heart Sounds: no murmur Extremities: + edema (trace edema legs bilat) Gastrointestinal (Abdomen): Inspection/Auscultation: normal bowel sounds; abdomen not distended Percussion/Palpation: abdomen soft; abdomen nontender Psychiatric: Orientation: alert, oriented to person, oriented to place and cooperative Results & Data Results & Data Vital Signs (Past 12 Hours) Vital Signs Temp Pulse Pulse Resp BP Pulse Ox O2 Del Method 08/26/23 16:20 37.3 C 108 H 20 104/71 91 High Flow Nasal Cannula 08/26/23 14:55 107 H 18 96 Nasal Cannula 08/26/23 11:22 106 H 18 94 08/26/23 11:22 106 H 18 94 CPAP 08/26/23 11:04 36.5 C 105 H 20 91/59 L 95 CPAP 08/26/23 09:16 CPAP 08/26/23 07:42 36.6 C 111 H 20 112/74 96 CPAP 08/26/23 07:26 100 H 20 94 08/26/23 07:25 100 H 20 95 CPAP O2 Flow Rate FiO2 08/26/23 16:20 8 08/26/23 14:55 10 08/26/23 11:22 60 08/26/23 11:22 60 08/26/23 11:04 08/26/23 09:16 08/26/23 07:42 08/26/23 07:26 60 08/26/23 07:25 60 Laboratory Results CBC, BMP, LFTs, CRP, urine cx reviewed PG Care Time/CCT Total # of Minutes Spent Total Time Spent with Patient: Total time spent is greater than 50% in coordination of care (as documented) at patient's floor/unit and/or counseling patient: Coding Level of Care Code 10852 SUB INP/OBS CARE 3/50MIN Diagnoses Sepsis with acute hypoxic respiratory failure without septic shock, due to unspe cified organism A41.9; R65.20; J96.01 Sepsis type: sepsis due to unspecified organism Sepsis acute organ dysfunction status: with acute organ dysfunction Severe sepsis acute organ dysfunction type: acute respiratory failure Acute respiratory failure type: with hypoxia Severe sepsis shock status: without septic shock Acute respiratory failure with hypoxia J96.01 Pneumonia J18.9 Metabolic encephalopathy G93.41 Right ischial pressure sore L89.319 Infection due to human metapneumovirus (hMPV) B34.8 Acute UTI N39.0 Fecal impaction K56.41 Anemia D64.9 (1) Sepsis Sepsis type: sepsis due to unspecified organism Sepsis acute organ dysfunction status: with acute organ dysfunction Severe sepsis acute organ dysfunction type: acute respiratory failure Acute respiratory failure type: with hypoxia Severe sepsis shock status: without septic shock Qualified Code(s): A41.9 - Sepsis, unspecified organism; R65.20 - Severe sepsis without septic shock; J96.01 - Acute respiratory failure with hypoxia
[2023-08-26] MEDS: DEXTROSE 50% 50 ML SYRINGE IV ONE (17:29)
[2023-08-26 20:27] LABS: Influenza A virus by PCR Negative (Neg); Influenza B virus by PCR Negative (Neg); RSV by PCR Negative (Neg); SARS CoV2 RNA(COVID-19) Ceph NEGATIVE (Negative)
[2023-08-26] MEDS: MULTIVITAMIN CHEWABLE TAB PO SCH (21:19)
[2023-08-26] MEDS: LACTULOSE SYRUP 20 GM/30 ML UDC PO SCH (21:19)
[2023-08-27 06:46] LABS: Hematocrit (blood only) 29.9 % (42.0-52.0); Hemoglobin 9.8 g/dl (14.0-18.0); Mean Corpuscular Hemoglobin 29.6 pg (25.0-34.0); Mean Corpuscular Hgb Conc 32.8 g/dL (32.0-36.0); Mean Corpuscular Volume 90.3 fL (80.0-100.0); Platelet Count 338 K/uL (130-400); RDW Coefficient of Variation 19.9 % (11.5-14.5); RDW Standard Deviation 65.7 fL (36.4-46.3); Red Blood Count 3.31 M/uL (4.70-6.10); White Blood Count 21.92 K/ul (4.8-10.8)
[2023-08-27 07:03] LABS: Albumin Globulin Ratio 0.5 (0.9-2); Albumin Level 1.5 gm/dl (3.4-5.0); BUN Creatinine Ratio 21.9 (10-20); Bilirubin,Total 0.3 mg/dl (0.2-1.0); C Reactive Protein 17.58 mg/dl (0-0.5); Calcium 7.2 mg/dl (8.6-10.3); Creatinine Clr Calc Pharmacy 102.9 ml/min; Est GFR (African American) 121.6 ml/min; Est GFR (Non-African American) 104.9 ml/min; Globulin 2.9 gm/dl (2.5-4.0); Magnesium 1.9 mg/dl (1.7-2.4); Potassium 3.5 mmol/L (3.5-5.1); Total Protein 4.4 gm/dl (6.0-8.3)
[2023-08-27 07:22] LABS: Anisocytosis Present; Basophils # (auto) 0.03 K/uL (0.00-0.20); Basophils % (auto) 0.1 %; Eosinophils # (auto) 0.15 K/uL (0.00-0.50); Eosinophils % (auto) 0.7 %; Immature Granulocytes # (auto) 0.25 K/uL (0.01-0.20); Immature Granulocytes % (auto) 1.1 %; Lymphocytes # (auto) 0.53 K/uL (1.20-3.40); Lymphocytes % (auto) 2.4 %; Monocytes # (auto) 1.03 K/uL (0.11-0.59); Monocytes % (auto) 4.7 %; Neutrophils # (auto) 19.93 K/uL (1.40-6.50); Polychromasia 1+; Target Cells 2+
--- NOTE | 2023-08-27 07:34 | XRay Report ---
XR chest 1V portable CLINICAL HISTORY: f/u PNA,hypoxia, CHF COMPARISON STUDY: Chest CT August 15, 2023. Chest radiograph August 25, 2023. FINDINGS: Right humeral internal fixation and thoracic spine scoliosis hardware are incidentally note d. There is no pneumothorax or pleural effusion. Cardiomediastinal silhouette is stable. Interstitial thickening and diffuse airspace opacities have slightly progressed. IMPRESSION: Extensive airspace opacities and interstitial thickening which have slightly progressed since prior exam. The findings favor multifocal pneumonia. Pulmonary edema or ARDS could appear simil ar. ACT 112: Negative or not required by law. Electronically signed by: Omar Fisher M.D. 08/27/2023 7:33 AM
--- NOTE | 2023-08-27 08:34 | Pharmacy Report ---
Pharmacy PK ABX Note - Date of Service August 27, 2023 - Assessment and Plan Assessment 08/26: Reviewed vancomycin level, predicting therapeutic AUC/KONSTANTIN, continue current regimen. Concern currently for hospital acquired pneumonia (MRSA nares positive) also ongoing sacral ulcers. ID following. Currently on cefepime/Flagyl/vancomycin, completed 14 day course of fluconazole for fluconazole sensitive charity UTI. Blood cultures negative, repeat 08/25 pending 08/24: * 63 yo M started on Vancomycin and Cefepime for pneumonia this morning. * Patient has been admitted for extended period and did received vanc previously during admission. Will use info to guide current dosing. * Afebrile. White count of 23k. SCr at 0.46. Patient is paraplegic. Plan Vancomycin * Loading dose: 1500 mg IV x 1 * Maintenance dose: 750 mg IV every 12 hours * Predicted AUC/KONSTANTIN at steady state: 592 mg/L.hr * Random level ordered for 08/30/23 Cefepime * 2000 mg IV every 8 hours * Flagyl 500mg IV every 8 hours Pharmacy will continue to follow and will adjust dose/frequency as necessary. Thank you. Pharmacy has transitioned to AUC monitoring for vancomycin. AUC/KONSTANTIN is the preferred PK/PD target and is associated with decreased risk of nephrotoxicity compared to traditional trough targets.
[2023-08-27] MEDS: SODIUM CHLORIDE 0.9% 500 ML IV ONE (12:14)
--- NOTE | 2023-08-27 12:22 | Hospitalist Progress Note ---
Date of Service August 27, 2023 Assessment & Plan (1) Sepsis: Plan: Present on admission. Now resolved He improved with IV fluids and appropriate antibiotics and antifungals. No pressor support required. Ur cx with Enterococcus and Cinda Ureteral stents in place and due to be exchanged, but Urol recommends doing as outpt after treatment of infection With sacral wounds to the bone, no Surgical debridement recommended-has wound vac in place, Blood cxs NGTD-treating for soft tissue infection, but no retirement abx for OM as per ID Also with aspiration PNA and Human Metapneumovirus infection/viral PNA UCx from 08/14 done after garrison changed with Cinda sensitive to fluconazole Supportive care for viral infection Received vancomycin and then transitioned to doxy for coverage of sacrum for ?overlying SSTI - MRSA screen positive-last day of tx 08/23 Received Unasyn 3g IV q6h (coverage of sacrum and UTI) and then Augmentin through 08/24 Completed 2 weeks of fluconazole 200mg PO daily (QTc 440, coverage of UTI) On 08/24, WBC count continues to trend upward despite being off steroids for many days-now at 23. CRP now significantly elevated at 21.3, procalcitonin quite elevated at 19, but patient remains normotensive and afebrile He is significantly hypoxemic and is now requiring 15 L of high flow nasal cannula alternating with CPAP at FiO2 60% UA repeated on 08/24 after repeat exchange of Garrison catheter-again shows infection, but given abnormal chest x-ray on 08/24 worsening infiltrates, elevated procalcitonin and CRP and hypoxemia, suspect pneumonia more causative. His sacral and ischial wounds do not appear acutely infected -Presumed hospital-acquired pneumonia versus UTI versus ongoing infection with osteomyelitis in the sacral wounds -continue cefepime, Flagyl, vancomycin, consider adding Diflucan back on for Cinda in repeat Ur cx but defer to ID-has indwelling ureteral stents that are likely colonized with Cinda -no sputum cx collected as he cannot cough any sputum up -Reconsult infectious disease-check COVID/Flu swab, blood cxs -Follow CBC, CMP, CRP, procalcitonin (2) Acute respiratory failure with hypoxia: Plan: He continues to require high flow oxygen. Lasix diuresis has not helped his respiratory status. Parenteral Lasix has been discontinued and he required IV fluid bolus today, August 26. Serum osmolarity is increased to 303. He appears to have ARDS. Parenteral steroids did not seem to have any beneficial effect and were discontinued. (3) Pneumonia: Plan: Bilateral aspiration pneumonia suspected. Appreciate speech therapy assistance. (4) Metabolic encephalopathy: Plan: Supportive care. Multiple etiologies. (5) Right ischial pressure sore: Plan: Chronic. With associated chronic osteomyelitis. Continue local care. Wound care consultation appreciated. He does have a WoundVac in place. General surgery consultation appreciated. They indicate no need for debridement at this time. Completed course of antibiotics with Unasyn/Augmentin, vancomycin/doxy, and Diflucan for 2 weeks. Now back on cefepime, vancomycin, and Flagyl as above for broad-spectrum coverage (6) Infection due to human metapneumovirus (hMPV): Plan: supportive care. Multifocal opacities on chest x-ray could be viral pneumonia (7) Acute UTI: Plan: He has a catheter associated UTI. Garrison exchanged here after admission. 2 species of Cinda isolated along with Enterococcus faecalis. Treated with Unasyn and Diflucan. Appreciate urology consultation and recommendations. He has bilateral ureter stents in place. Urology indicates that these will be exchanged at a later date as an outpatient (8) Fecal impaction: Plan: Present on admission. Now resolved. Is back on oxycodone from home for chronic pain (9) Anemia: Plan: No overt blood loss except now does have some mild hematuria. Hgb 8-9 and drifted down to the 7s range. Transfused 1 unit PRBCs August 17, for hemoglobin 7.4. Serial labs-hgb remains stable at 9-10 Plan Insurance denied LTAC placement on August 21. However, this appears to be our only option. Will reapply this week Admission and Anticipated Discharge Date Admission Date: August 09, 2023 Subjective Alert but disoriented. He continues to require high flow oxygen. Pulmonary medicine had a direct discussion with the patient's regarding course of action. Brisk diuresis induced with intravenous Lasix which has been discontinued. Blood pressure is low and serum osmolarity is 303. He received an IV fluid bolus today, August 26. He is transferred to the ICU per pulmonary medicine request. He will require intubation if consent is received. He remains on vancomycin, cefepime, Flagyl. Review of Systems 2 Review of Systems: The patient is unable to reliably answer any questions regarding review of systems at this time Physical Exam 2 Physical Exam: General-alert and oriented x1, confused and disoriented HEENT-head atraumatic and normocephalic, pupils equal and reactive to light, extraocular muscles intact Neck-no lymphadenopathy or thyromegaly, trachea midline Chest-tachypnea at rest. Bilateral rhonchi. No audible wheezing Cardiac-tachycardic regular rhythm. Normal S1 and S2 Abdomen-normal bowel sounds, no hepatosplenomegaly Extremities-atrophic changes bilateral lower extremities due to chronic paraplegia Neuro-cranial nerves II through XII intact, bilateral lower extremity paraplegia Psychcannot assess Results & Data Results & Data Vital Signs (Past 12 Hours) Vital Signs Temp Pulse Pulse Resp BP Pulse Ox O2 Del Method 08/27/23 11:25 36.8 C 118 H 16 80/48 L 98 High Flow Nasal Cannula 08/27/23 10:27 116 H 30 H 92 CPAP 08/27/23 10:24 116 H 30 H 92 08/27/23 09:38 High Flow Nasal Cannula 08/27/23 08:00 36.8 C 100 H 16 119/54 L 96 High Flow Nasal Cannula 08/27/23 07:08 102 H 16 94 Nasal Cannula 08/27/23 05:21 98 High Flow Nasal Cannula 08/27/23 03:00 18 100 High Flow Nasal Cannula 08/27/23 02:25 37.1 C 106 H 18 104/69 95 CPAP O2 Flow Rate FiO2 08/27/23 11:25 10 08/27/23 10:27 80 08/27/23 10:24 80 08/27/23 09:38 08/27/23 08:00 10 08/27/23 07:08 9 08/27/23 05:21 10 08/27/23 03:00 15 08/27/23 02:25 Laboratory Results 08/27/23 06:17 08/27/23 06:17 PG Care Time/CCT Total # of Minutes Spent Total Time Spent with Patient: Total time spent is greater than 50% in coordination of care (as documented) at patient's floor/unit and/or counseling patient: Coding Level of Care Code 12263 SUB INP/OBS CARE 3/50MIN Diagnoses Sepsis with acute hypoxic respiratory failure without septic shock, due to unspecified organism A41.9; R65.20; J96.01 Sepsis type: sepsis due to unspecified organism Sepsis acute organ dysfunction status: with acute organ dysfunction Severe sepsis acute organ dysfunction type: acute respiratory failure Acute respiratory failure type: with hypoxia Severe sepsis shock status: without septic shock Acute respiratory failure with hypoxia J96.01 Pneumonia J18.9 Metabolic encephalopathy G93.41 Right ischial pressure sore L89.319 Infection due to human metapneumovirus (hMPV) B34.8 Acute UTI N39.0 Fecal impaction K56.41 Anemia D64.9 (1) Sepsis Sepsis type: sepsis due to unspecified organism Sepsis acute organ dysfunction status: with acute organ dysfunction Severe sepsis acute organ dysfunction type: acute respiratory failure Acute respiratory failure type: w ith hypoxia Severe sepsis shock status: without septic shock Qualified Code(s): A41.9 - Sepsis, unspecified organism; R65.20 - Severe sepsis without septic shock; J96.01 - Acute respiratory failure with hypoxia
[2023-08-27] MEDS ORDERED: fentaNYL citrate PF 100 MCG/2 ML VIAL IV ONE (13:04)
[2023-08-27] MEDS ORDERED: ETOMIDATE 2 MG/ML 20 ML VIAL IV ONE (13:04)
[2023-08-27] MEDS ORDERED: ROCURONIUM BROMIDE 10 MG/ML 5 ML VIAL IV ONE (13:04)
[2023-08-27] MEDS: ONDANSETRON INJ 2 MG/ML 2 ML VIAL IV PRN (14:28)
[2023-08-27 15:13] LABS: Calcium 6.9 mg/dl (8.6-10.3); Potassium 3.9 mmol/L (3.5-5.1)
[2023-08-27 15:19] LABS: BUN Creatinine Ratio 24.6 (10-20); Creatinine Clr Calc Pharmacy 101.3 ml/min; Est GFR (African American) 120.8 ml/min; Est GFR (Non-African American) 104.3 ml/min
--- NOTE | 2023-08-27 15:28 | XRay Report ---
SINGLE VIEW CHEST CLINICAL HISTORY: Hypoxia. FINDINGS: An AP, portable, upright chest radiograph is compared to performed earlier the same day 08/02 and correlated with chest CT dated 08/15/2023. The heart is enlarged. There is pulmonary vascul ar congestion. Diffuse multifocal airspace opacities are unchanged to modestly worsened as compared t o 08/21/2023. There are small pleural effusions. No pneumothorax is seen. The skeletal structures are osteopenic. The bony thorax is grossly intact. Thoracic spinal rods are in place. Suture material and surgical clips project over the upper abdomen. IMPRESSION: 1. Cardiomegaly with evidence of congestive failure. 2. Diffuse multifocal airspace opacities are similar to today's earlier examination. 3. Small pleural effusions. ACT 112: Negative or not required by law. Electronically signed by: Luther Vasquez M.D. 08/27/2023 3:27 PM
[2023-08-27] MEDS ORDERED: STAT IV Infusion **Titration per Protocol STA ×3 (15:32→18:02)
--- NOTE | 2023-08-27 15:32 | Critical Care Progress Note ---
Date of Service August 27, 2023 Assessment & Plan (1) Pneumonia: (2) Infection due to human metapneumovirus (hMPV): (3) Hypoxemia: (4) Pneumomediastinum: (5) Hypotension: Plan Impression: 63-year-old male with multiple medical issues and multiple infectious etiologies now with increasing oxygen requirement of unclear etiology. He did have diastolic dysfunction on his echocardiogram and his diuretics have largely been held. His intake and output shows that he is positive almost 4 L since hospitalization despite being negative the last 3 to 4 days. Recommendations: 1. Hypoxemic respiratory failure: Probable ARDS secondary to human metapneumovirus and noncardiogenic pulmonary edema. Will start diuresis with Lasix 40 mg twice daily. Will place the patient on steroids 40 mg twice daily. Patient is status post bronchoscopy 08/27/2023. Bilateral washings from the r ight lower lobe and left lower lobe sent for cultures, cell counts and cytology. PJP PCR, histo PCR, blasto PCR, cocci PCR, Aspergillus galactomannan and Legionella DNA. Will utilize low PEEP and high FiO2 strategy given the presence of pneumomediastinum. Will use neuromuscular blockade for ventilator synchrony. Echo 08/15/2023 revealed an LVEF of 60 to 65%. Right ventricle was mild to moderately dilated. 2. Infectious disease evaluations noted. Repeat chest x-ray today demonstrates continued multifocal infiltrates. Patient is on empiric vancomycin cefepime and Flagyl. Patient has a history of complicated UTI and osteomyelitis. He also has a recent human metapneumovirus infection. 3. His nutritional status is quite poor and his BMI is low. Will start tube feeds after intubation. Will start Protonix 40 mg twice daily. Patient's family updated at bedside. CRITICAL CARE TIME - I have personally spent 72 minutes of critical care time in the direct management of this patient. This is a life/limb threatening event. This includes time spent evaluating patient, direct bedside care, chart review, placing orders, interpretation of diagnostic studies, discussion with consultants, patient, and family members, as well as other required patient management activities. This time is exclusive of all separately billable procedures, and teaching time and separate from and in addition to any other critical care service time. Admission and Anticipated Discharge Date Admission Date: August 09, 2023 Subjective Unfortunately, this afternoon the patient had increasing tachypnea and increasing hypoxemia requiring BiPAP support. Patient was moved to ICU urgently for closer monitoring. I had a discussion with the patient's at bedside and the patient regarding his CODE STATUS and the role of temporary intubation and mechanical ventilation. The patient is agreeable to intubation mechanical ventilation along with bronchoscopy at this time given his severe hypoxemia and multifocal infiltrates on chest x-ray. Palliative care provider Berenice fernandez DNP was also present during the encounter and assisted in discussions regarding goals of care. At this time the patient does endorse shortness of breath and pleuritic chest pain. He remains on 13 L of high flow oxygen with saturations in the low 90s. Review of Systems Review of Systems: All systems reviewed & are unremarkable except as noted in HPI & below Physical Exam Physical Exam: Constitutional: Patient appears to be of their stated age. Patient is in no apparent distress. Patient is well-developed. Eyes: Pupils are equal round and reactive to light. Conjunctivae are normal. Anicteric sclera. Ears nose, mouth and throat: Mallampati class 2. Normal posterior oropharynx. Uvula is midline. Neck: Trachea is midline. Visual inspection is normal. Respiratory: Diffusely rhonchorous and tachypneic. Increased work of breathing. Cardiovascular: Regular rate and rhythm. No murmurs. No edema. Gastrointestinal: Normal bowel sounds, soft, nontender and nondistended. No hepatosplenomegaly noted. Musculoskeletal: No cyanosis. Patient is able to move all extremities. Strength is 5 out of 5 in the upper and lower extremities. Skin: No rashes, warm dry and intact. Neurologic: No obvious focal neurological deficits seen. Psychiatric: Anxious appearing. Alert and oriented x 3. Results & Data Results & Data Vital Signs (Past 12 Hours) Vital Signs Temp Pulse Pulse Resp BP BP Pulse Ox 08/27/23 14:51 109 H 22 94 08/27/23 13:15 109 H 40 H 108/70 100 08/27/23 13:04 08/27/23 13:00 107 H 24 115/84 97 08/27/23 12:35 36.5 C 08/27/23 12:30 109 H 27 H 109/69 95 08/27/23 12:15 110 H 29 H 121/75 91 08/27/23 12:00 111 H 30 H 105/68 93 08/27/23 11:25 36.8 C 118 H 16 80/48 L 98 08/27/23 10:27 116 H 30 H 92 08/27/23 10:24 116 H 30 H 92 08/27/23 09:38 08/27/23 08:00 36.8 C 100 H 16 119/54 L 96 08/27/23 07:08 102 H 16 94 08/27/23 05:21 98 O2 Del Method O2 Flow Rate FiO2 08/27/23 14:51 Nasal Cannula 13 08/27/23 13:15 08/27/23 13:04 CPAP 60 08/27/23 13:00 08/27/23 12:35 08/27/23 12:30 CPAP 08/27/23 12:15 CPAP 08/27/23 12:00 08/27/23 11:25 High Flow Nasal Cannula 10 08/27/23 10:27 CPAP 80 08/27/23 10:24 80 08/27/23 09:38 High Flow Nasal Cannula 08/27/23 08:00 High Flow Nasal Cannula 10 08/27/23 07:08 Nasal Cannula 9 08/27/23 05:21 High Flow Nasal Cannula 10 Coding Level of Care Code 47736 CRITICAL CARE 1ST 30-74M Diagnoses Pneumonia J18.9 Infection due to human metapneumovirus (hMPV) B34.8 Hypoxemia R09.02 Pneumomediastinum J98.2 Hypotension I95.9 Hypotension type: unspecified hypotension type (5) Hypotension Hypotension type: unspecified hypotension type Qualified Code(s): I95.9 - Hypotension, unspecified
--- NOTE | 2023-08-27 16:15 | Procedure Note ---
Procedure Note: Bronchoscopy Procedure INTUBATION PROCEDURE NOTE: Dr. Scott Patricia A time-out was completed verifying correct patient, procedure, site, positioning. Patient was evaluated and required intubation for hypoxemic respiratory failure. Sedative agent used: 20 mg of etomidate Paralysis agent used: 30 mg of rocuronium Consent by patient's signed and placed on chart. Timeout performed prior to the procedure Number of attempts: 1 Grade view: Not applicable The patient was prepared in the appropriate fashion. Sedation was achieved utilizing etomidate and rocuronium. The patient was easily ventilated using uln-aapid-dman to achieve adequate oxygenation. A 8.0 Malaysian endotracheal tube was placed under GlideScope guidance to 24 cm at the lip. The stylette was removed and balloon was inflated with 10mL of air. Appropriate Colorimetric change was appreciated. Bilateral breath sounds were heard without air sounds in the abdomen. Most information CT chest ordered. Patient tolerated the procedure well and there were no immediate complications. [facility] Procedure Codes (Charges) Resuscitation Resuscitation: 44968 Endotracheal Intubation, emergency
[2023-08-27] MEDS: RAPID SEQUENCE INDUCTION BAG ONE (16:35)
[2023-08-27] MEDS: dexMEDEtomidine 200 MCG/50 ML BAG IV SCH (16:35)
[2023-08-27] MEDS: fentaNYL citrate 2,500 MCG/250 ML BAG IV SCH (16:35)
--- NOTE | 2023-08-27 17:08 | CT Scan Report ---
CT OF THE CHEST WITHOUT IV CONTRAST CLINICAL HISTORY: ARDS. COMPARISON STUDY: Chest CT August 15, 2023. Chest radiograph performed earlier today. CT DOSE: 508.67 mGy.cm TECHNIQUE: Axial images of the chest were obtained without IV contrast. Images were reviewed in the axial, sagittal, and coronal planes. IV contrast was not administered for this examination. Automat ed exposure control was utilized for the study. A dose lowering technique was utilized adhering to t he principles of ALARA. FINDINGS: Endotracheal and nasogastric tubes are well-positioned. There is no pneumothorax. There ortega s been interval development of small to moderate pneumomediastinum. There are small bilateral pleural effusions. Diffuse ground glass opacities throughout the lungs have progressed since CT of August 15, 2023. Small superimposed areas of consolidation have developed. There is no cavitation. No thoracic l ymphadenopathy is noted. A small hiatal hernia is present. Right humeral internal fixation and thorac ic spine scoliosis hardware is present. Left hydronephrosis is again noted. Several left upper pole r enal calculi measure up to 7 mm. IMPRESSION: 1. Appropriately positioned endotracheal and nasogastric tubes. 2. Interval development of small to moderate pneumomediastinum. No pneumothorax. 3. Progression of diffuse airspace opacities throughout the lungs which would be consistent with the provided history of ARDS. Multifocal pneumonia or pulmonary edema could appear similar. 4. Small bilateral pleural effusions. 5. Left hydronephrosis, as shown on prior CT. Left nephrolithiasis. ACT 112: Negative or not required by law. Electronically signed by: Omar Fisher M.D. 08/27/2023 5:05 PM
[2023-08-27] MEDS: CALCIUM GLUCONATE 1,000 MG/60 ML BAG IV SCH (17:11)
[2023-08-27] MEDS: VECURONIUM BROMIDE 10 MG VIAL IV STA (17:47)
[2023-08-27] MEDS: CISATRACURIUM BESYLATE 40 MG in DEXTROSE 5% 80 ML IV SCH (17:49)
[2023-08-27] MEDS: NOREPINEPHRINE/D5W 4 MG/250 ML PLCT IV SCH (17:50)
--- NOTE | 2023-08-27 18:02 | XRay Report ---
XR chest 1V portable CLINICAL HISTORY: intubation/ central line/ OG tube TECHNIQUE: Single frontal radiograph of the chest was obtained. Comparison: Comparison is made to chest radiograph 08/27/2023 FINDINGS: Satisfactory position of enteric tube. Endotracheal tube evaluation is limited by orthopedic fixation hardware however appears to terminate approximately 4.5 cm from the judy. The cardiomediastinal si lhouette is normal. Multifocal airspace opacities are seen. Indistinct pulmonary vasculature is again seen. No evidence of pleural effusion or pneumothorax. IMPRESSION: 1. Satisfactory position of lines and tubes. 2. Multiple airspace opacities and evidence of pulmonary edema, unchanged. ACT 112: Negative or not required by law. Electronically signed by: Colt Johnson M.D. 08/27/2023 6:01 PM
[2023-08-27] MEDS: ARTIFICIAL TEARS OP OINT 3.5 GM TUBE OP SCH (18:20)
[2023-08-27] MEDS: NOREPINEPHRINE/D5W 4 MG/250 ML IV ONE (18:20)
--- NOTE | 2023-08-27 18:23 | Procedure Note ---
Procedure Note Date of Service August 27, 2023 Note CENTRAL LINE PROCEDURE NOTE: Procedure: Left subclavian central line Indication: Central Drug Administration, Poor Venous Access, Multiple Lab Draws Necessary, etc. Anesthesia: Precedex and fentanyl/10 mL lidocaine 1% Consent was signed and placed on the chart prior to procedure. Indication, risks, and benefits were explained at length. A time-out was completed verifying correct patient, procedure, site, positioning, and implants(s) or special equipment if applicable. Patients left subclavian region was cleansed and draped in the typical sterile fashion using Chloraprep. The Internal Jugular Vein and Carotid Artery were identified using ultrasound. The superficial tissue was anesthetized using 10 mL of 1% lidocaine without epinephrine under direct visualization with the ultrasound. After adequate anesthetization was achieved, the subclavian vein was cannulated under direct ultrasound guidance using an introducer needle on a syringe. Good venous blood return was maintained prior to removal of syringe from introducer needle. Using Seldinger Technique, a guide wire was advanced through the introducer needle without resistance. The introducer needle was removed and ultrasound images were obtained of the guide wire within the Internal Jugular Vein and saved to the patients medical record. A small incision was made in penetrating fashion at the guide wire insertion site utilizing an 11 blade scalpel. The dilator was advanced to the vessel without resistance. The dilator was exchanged for the triple lumen catheter which was advanced into the vessel without resistance. The guide wire was removed intact from the catheter without issue. Claves were placed on each catheter tip with confirmation of good blood flow from each lumen. Each port was easily flushed with sterile saline. The catheter was placed at 60 cm and sut[address] in place. BioPatch was applied to the catheter and a sterile Tegaderm dressing was applied over the catheter with careful attention to sterility. Patient tolerated procedure well. No immediate complications were met. Coding CPT Codes Tubes, Drains, and Vasc Access - Tubes, Drains, and Vasc Access: [id number] Ultrasound Guidance For Vascular ([id number]) Tubes, Drains, and Vasc Access - Tubes, Drains, and Vasc Access: [id number] Place catheter in vein superior or inferior vena cava ([id number]) [facility] Procedure Codes (Charges) Tubes, Drains, and Vasc Access Procedure 1: Tubes, Drains, and Vasc Access: [id number] Ultrasound Guidance For Vascular Procedure 2: Tubes, Drains, and Vasc Access: [id number] Place catheter in vein superior or inferior vena cava
[2023-08-27 18:46] LABS: Eosinophil Body Fluid Man 3 %; Fluid Mono/Macrophage 20 %; Fluid Mono/Macrophage 4 %; Lymphocyte Body Fluid Man 3 %; Lymphocyte Body Fluid Man 6 %; Neutrophil Body Fluid Man 74 %; Neutrophil Body Fluid Man 90 %
[2023-08-27] MEDS: TUBE FEEDING WATER FLUSH GT SCH (19:40)
[2023-08-27 20:14] LABS: iSTAT Art Bld Gas pCO2 Correct 54 mmHg (35-46); iSTAT Art Bld Gas pH Corrected 7.372 (7.35-7.45); iSTAT Arterial Blood Gas HCO3 31 meg/L (19-24); iSTAT Arterial Blood Gas pCO2 54 mmHg (35-46); iSTAT Arterial Blood Gas pH 7.37 (7.35-7.45); iSTAT Arterial Blood Gas pO2 77 mmHg (80-95); iSTAT Arterial Blood Gas pO2 C 77; iSTAT Carbon Dioxide 33 mmol/L (24-31); iSTAT FiO2 65 %; iSTAT Hematocrit 29 % (42-52); iSTAT Hemoglobin 9.9 g/dl (14.0-18.0); iSTAT Potassium 2.6 mmol/L (3.3-5.0); iSTAT Site R Brachial; iSTAT Sodium 146 mmol/L (135-144)
[2023-08-27] MEDS ORDERED: methylPREDNISolone 125 MG/2 ML VIAL IV SCH (21:00)
[2023-08-27] MEDS: ICU Protocol for HYPERglycemia SCH (21:21)
[2023-08-27] MEDS: methylPREDNISolone 40 MG in SYRINGE 0 ML IV SCH (21:21)
--- NOTE | 2023-08-27 22:06 | Procedure Note ---
Procedure Note Date of Service August 27, 2023 Note Procedure: Arterial Line Placement Proceduralist: Dale BEVERLY ([facility] Attending: Dr. Patricia Indication: Monitoring on Pressors Anesthesia: [x]None Emergent consent was implied as patient is full code, intubated and sedated with increasing vasopressor needs as well with need for frequent ABGs risks, benefits greatly outweigh the risks at this point in time. A time-out was completed verifying correct patient, procedure, site, positioning, and implant(s) or special equipment if applicable. Allens test was performed to ensure adequate perfusion.. Ultrasound guidance was used to chief information officer the vessel and identify appropriate target. Once target was identified aid needle placement. Patients LEFT wrist was prepped and draped in the usual sterile fashion. Under direct Ultrasound visualization A 20g Arrow arterial line was introduced into the LEFT RADIAL artery. Brisk blood return was noted, the wire was advanced without resistance and the catheter was threaded. The needle was removed with appropriate blood return, pressure tubing was attached and an appropriate arterial waveform was observed. The patient tolerated the procedure well. The line was secured with suture and covered with a sterile dressing. Blood Loss: Minimal Complications: None immediate Artery Identified: YES Complications: NONE Patient tolerated procedure: WELL Coding CPT Codes Tubes, Drains, and Vasc Access - Tubes, Drains, and Vasc Access: [id number] Arterial Cath/Cannulation Sampling/Monitoring/Transfusion ([id number]) [facility] Procedure Codes (Charges) Tubes, Drains, and Vasc Access Procedure 1: Tubes, Drains, and Vasc Access: [id number] Arterial Cath/Cannulation Sampling/ Monitoring/Transfusion
[2023-08-27] MEDS: PANTOprazole 40 MG in SYRINGE 0 ML IV SCH (22:10)
[2023-08-27] MEDS: FUROSEMIDE 40 MG/4 ML VIAL IV SCH (22:10)
--- NOTE | 2023-08-27 22:22 | Palliative Care Consultation ---
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 (Negative) Urine Ketones (Negative) Urine Blood (Negative) Urine Nitrite (Negative) Urine Bilirubin (Negative) Urine Urobilinogen (Negative) Ur Leukocyte Esterase (Negative) Urine RBC (0-2) /hpf Urine WBC (0-5) /hpf Ur Epithelial Cells (0-2) /hpf Urine Bacteria (None Seen) Urine Yeast (None Prsent) Fluid Neutrophils % % Fluid Lymphocytes % % Fluid Eosinophils % % Fl Monocyt/Macrophag % % Fluid Comment Stool Occult Bld Scrn (Negative) Random Vancomycin (10-20) mcg/ml Coccidioid immitis DNA SARS-CoV-2 (PCR) NEGATIVE (Negative) Histo/Blasto PCR Result Influenza Type A (PCR) Negative (Neg) Influenza Type B (PCR) Negative (Neg) Legionella Source Legionella sp (PCR) L.pneumophila DNA (PCR) Pneumocyst jirovecii PCR Aspergillus Antigen RSV (RT-PCR) Negative (Neg) Misc Micro Test 08/26/23 08/26/23 08/26/23 Range/Units 16:53 16:51 16:31 WBC (4.8-10.8) K/ul RBC (4.70-6.10) M/uL Hgb (14.0-18.0) g/dl POC Hgb (14.0-18.0) g/dl Hct (42.0-52.0) % POC Hct (42-52) % MCV (80.0-100.0) fL MCH (25.0-34.0) pg MCHC (32.0-36.0) g/dL RDW Std Deviation (36.4-46.3) fL RDW Coeff of Jigna (11.5-14.5) % Plt Count (130-400) K/uL MPV (9.4-12.4) fL Immature Gran % (Auto) % Neut % (Auto) % Lymph % (Auto) % [place] % (Auto) % Eos % (Auto) % Baso % (Auto) % Neut # (Auto) (1.40-6.50) K/uL Lymph # (Auto) (1.20-3.40) K/uL [place] # (Auto) (0.11-0.59) K/uL Eos # (Auto) (0.00-0.50) K/uL Baso # (Auto) (0.00-0.20) K/uL Immature Gran # (Auto) (0.01-0.20) K/uL Absolute Nucleated RBC (0.00-0.12) K/uL Nucleated RBC % (auto) % Toxic Vacuolation Polychromasia Anisocytosis Target Cells Sample Site POC pH (7.35-7.45) POC pCO2 (35-46) mmHg POC pO2 (80-95) mmHg POC HCO3 (19-24) aniyah/L POC Total CO2 (24-31) mmol/L POC Base Excess (-9-1.8) aniyah/L ABG pH (Temp Correct) (7.35-7.45) ABG pCO2 (Temp Corrct (35-46) mmHg POC ABG pO2 at Pt Temp POC ABG O2 Sat (90-95) % Blayne Test O2 Delivery Device POC O2 Rate Minute Ventilation POC FiO2 % Tidal Volume PEEP POC Sodium (135-144) mmol/L Sodium (136-145) mmol/L POC Potassium (3.3-5.0) mmol/L Potassium (3.5-5.1) mmol/L Chloride (98-107) mmol/L Carbon Dioxide (21-32) mmol/L Anion Gap (3-11) BUN (6-23) mg/dl Creatinine (0.6-1.4) mg/dl Est Cr Clr Drug Dosing ml/min Est GFR ( Amer) ml/min Est GFR (Non-Af Amer) ml/min BUN/Creatinine Ratio (10-20) Glucose (70-99(Fasting)) mg/dl POC Glucose 51 L* 47 L* 62 L* (70-99) mg/dl Osmolality (280-300) mOsm/kg Lactate (0.4-2.0) mmol/L Calcium (8.6-10.3) mg/dl Phosphorus (2.5-4.9) mg/dl Magnesium (1.7-2.4) mg/dl Total Bilirubin (0.2-1.0) mg/dl Direct Bilirubin (0-0.2) mg/dl AST (13-39) U/L ALT (7-52) U/L Alkaline Phosphatase (34-104) U/L C-Reactive Protein (0-0.5) mg/dl B-Natriuretic Peptide (0-100) pg/ml Total Protein (6.0-8.3) gm/dl Albumin (3.4-5.0) gm/dl Globulin (2.5-4.0) gm/dl Albumin/Globulin Ratio (0.9-2) Procalcitonin (0-0.5) ng/ml Urine Color Urine Appearance (Clear) Urine pH (4.5-7.5) Ur Specific [place] (1.000-1.030) Urine Protein (Negative) Urine Glucose (UA) (Negative) Urine Ketones (Negative) Urine Blood (Negative) Urine Nitrite (Negative) Urine Bilirubin (Negative) Urine Urobilinogen (Negative) Ur Leukocyte Esterase (Negative) Urine RBC (0-2) /hpf Urine WBC (0-5) /hpf Ur Epithelial Cells (0-2) /hpf Urine Bacteria (None Seen) Urine Yeast (None Prsent) Fluid Neutrophils % % Fluid Lymphocytes % % Fluid Eosinophils % % Fl Monocyt/Macrophag % % Fluid Comment Stool Occult Bld Scrn (Negative) Random Vancomycin (10-20) mcg/ml Coccidioid immitis DNA SARS-CoV-2 (PCR) (Negative) Histo/Blasto PCR Result Influenza Type A (PCR) (Neg) Influenza Type B (PCR) (Neg) Legionella Source Legionella sp (PCR) L.pneumophila DNA (PCR) Pneumocyst jirovecii PCR Aspergillus Antigen RSV (RT-PCR) (Neg) Misc Micro Test 08/26/23 08/26/23 08/25/23 Range/Units 16:20 07:07 10:20 WBC 22.92 H (4.8-10.8) K/ul RBC 3.06 L (4.70-6.10) M/uL Hgb 9.0 L (14.0-18.0) g/dl POC Hgb (14.0-18.0) g/dl Hct 28.0 L (42.0-52.0) % POC Hct (42-52) % MCV 91.5 (80.0-100.0) fL MCH 29.4 (25.0-34.0) pg MCHC 32.1 (32.0-36.0) g/dL RDW Std Deviation 67.7 H (36.4-46.3) fL RDW Coeff of Jigna 20.3 H (11.5-14.5) % Plt Count 307 (130-400) K/uL MPV 11.2 (9.4-12.4) fL Immature Gran % (Auto) 1.0 % Neut % (Auto) 91.0 % Lymph % (Auto) 3.4 % [place] % (Auto) 3.4 % Eos % (Auto) 1.1 % Baso % (Auto) 0.1 % Neut # (Auto) 20.85 H (1.40-6.50) K/uL Lymph # (Auto) 0.77 L (1.20-3.40) K/uL [place] # (Auto) 0.78 H (0.11-0.59) K/uL Eos # (Auto) 0.25 (0.00-0.50) K/uL Baso # (Auto) 0.03 (0.00-0.20) K/uL Immature Gran # (Auto) 0.24 H (0.01-0.20) K/uL Absolute Nucleated RBC (0.00-0.12) K/uL Nucleated RBC % (auto) % Toxic Vacuolation Polychromasia 1+ Anisocytosis Present Target Cells 2+ Sample Site POC pH (7.35-7.45) POC pCO2 (35-46) mmHg POC pO2 (80-95) mmHg POC HCO3 (19-24) aniyah/L POC Total CO2 (24-31) mmol/L POC Base Excess (-9-1.8) aniyah/L ABG pH (Temp Correct) (7.35-7.45) ABG pCO2 (Temp Corrct (35-46) mmHg POC ABG pO2 at Pt Temp POC ABG O2 Sat (90-95) % Blayne Test O2 Delivery Device POC O2 Rate Minute Ventilation POC FiO2 % Tidal Volume PEEP POC Sodium (135-144) mmol/L Sodium 144 (136-145) mmol/L POC Potassium (3.3-5.0) mmol/L Potassium 4.2 (3.5-5.1) mmol/L Chloride 109 H (98-107) mmol/L Carbon Dioxide 33 H (21-32) mmol/L Anion Gap 2 L (3-11) BUN 12 (6-23) mg/dl Creatinine 0.54 L (0.6-1.4) mg/dl Est Cr Clr Drug Dosing 122.8 ml/min Est GFR ( Amer) 130.4 ml/min Est GFR (Non-Af Amer) 112.5 ml/min BUN/Creatinine Ratio 22.2 H (10-20) Glucose 56 L (70-99(Fasting)) mg/dl POC Glucose 59 L* (70-99) mg/dl Osmolality (280-300) mOsm/kg Lactate (0.4-2.0) mmol/L Calcium 7.2 L (8.6-10.3) mg/dl Phosphorus (2.5-4.9) mg/dl Magnesium 1.9 (1.7-2.4) mg/dl Total Bilirubin 0.3 (0.2-1.0) mg/dl Direct Bilirubin (0-0.2) mg/dl AST 27 (13-39) U/L ALT 17 (7-52) U/L Alkaline Phosphatase 155 H (34-104) U/L C-Reactive Protein 23.30 H (0-0.5) mg/dl B-Natriuretic Peptide (0-100) pg/ml Total Protein 4.1 L (6.0-8.3) gm/dl Albumin 1.5 L (3.4-5.0) gm/dl Globulin 2.6 (2.5-4.0) gm/dl Albumin/Globulin Ratio 0.6 L (0.9-2) Procalcitonin (0-0.5) ng/ml Urine Color Red Urine Appearance Cloudy A (Clear) Urine pH 7.5 (4.5-7.5) Ur Specific [place] 1.020 (1.000-1.030) Urine Protein 2+ H (Negative) Urine Glucose (UA) Negative (Negative) Urine Ketones Negative (Negative) Urine Blood 3+ H (Negative) Urine Nitrite Negative (Negative) Urine Bilirubin Negative (Negative) Urine Urobilinogen Negative (Negative) Ur Leukocyte Esterase 3+ H (Negative) Urine RBC >20 H (0-2) /hpf Urine WBC 21-50 H (0-5) /hpf Ur Epithelial Cells 3-5 H (0-2) /hpf Urine Bacteria 2+ H (None Seen) Urine Yeast Present A (None Prsent) Fluid Neutrophils % % Fluid Lymphocytes % % Fluid Eosinophils % % Fl Monocyt/Macrophag % % Fluid Comment Stool Occult Bld Scrn (Negative) Random Vancomycin (10-20) mcg/ml Coccidioid immitis DNA SARS-CoV-2 (PCR) (Negative) Histo/Blasto PCR Result Influenza Type A (PCR) (Neg) Influenza Type B (PCR) (Neg) Legionella Source Legionella sp (PCR) L.pneumophila DNA (PCR) Pneumocyst jirovecii PCR Aspergillus Antigen RSV (RT-PCR) (Neg) Misc Micro Test 08/25/23 08/25/23 08/24/23 Range/Units 09:23 07:13 08:54 WBC 23.10 H 22.37 H (4.8-10.8) K/ul RBC 3.08 L 3.10 L (4.70-6.10) M/uL Hgb 9.1 L 9.0 L (14.0-18.0) g/dl POC Hgb (14.0-18.0) g/dl Hct 28.8 L 27.9 L (42.0-52.0) % POC Hct (42-52) % MCV 93.5 90.0 (80.0-100.0) fL MCH 29.5 29.0 (25.0-34.0) pg MCHC 31.6 L 32.3 (32.0-36.0) g/dL RDW Std Deviation 69.6 H 67.9 H (36.4-46.3) fL RDW Coeff of Jigna 20.5 H 21.2 H (11.5-14.5) % Plt Count 299 314 (130-400) K/uL MPV 10.7 10.8 (9.4-12.4) fL Immature Gran % (Auto) 1.0 0.8 % Neut % (Auto) 92.8 93.8 % Lymph % (Auto) 2.8 2.1 % [place] % (Auto) 1.8 1.3 % Eos % (Auto) 1.5 2.0 % Baso % (Auto) 0.1 0.0 % Neut # (Auto) 21.44 H 20.98 H (1.40-6.50) K/uL Lymph # (Auto) 0.65 L 0.46 L (1.20-3.40) K/uL [place] # (Auto) 0.41 0.29 (0.11-0.59) K/uL Eos # (Auto) 0.35 0.44 (0.00-0.50) K/uL Baso # (Auto) 0.03 0.01 (0.00-0.20) K/uL Immature Gran # (Auto) 0.22 H 0.19 (0.01-0.20) K/uL Absolute Nucleated RBC (0.00-0.12) K/uL Nucleated RBC % (auto) % Toxic Vacuolation Polychromasia 1+ 1+ Anisocytosis Present Present Target Cells 1+ 2+ Sample Site POC pH (7.35-7.45) POC pCO2 (35-46) mmHg POC pO2 (80-95) mmHg POC HCO3 (19-24) aniyah/L POC Total CO2 (24-31) mmol/L POC Base Excess (-9-1.8) aniyah/L ABG pH (Temp Correct) (7.35-7.45) ABG pCO2 (Temp Corrct (35-46) mmHg POC ABG pO2 at Pt Temp POC ABG O2 Sat (90-95) % Blayne Test O2 Delivery Device POC O2 Rate Minute Ventilation POC FiO2 % Tidal Volume PEEP POC Sodium (135-144) mmol/L Sodium 139 139 140 (136-145) mmol/L POC Potassium (3.3-5.0) mmol/L Potassium 4.6 5.3 H 4.5 (3.5-5.1) mmol/L Chloride 106 108 H 108 H (98-107) mmol/L Carbon Dioxide 31 33 H 29 (21-32) mmol/L Anion Gap 2 L -2 L 3 (3-11) BUN 9 9 11 (6-23) mg/dl Creatinine 0.46 L 0.44 L 0.43 L (0.6-1.4) mg/dl Est Cr Clr Drug Dosing 151.9 158.8 163.5 ml/min Est GFR ( Amer) 139.3 141.9 143.2 ml/min Est GFR (Non-Af Amer) 120.2 122.4 123.6 ml/min BUN/Creatinine Ratio 19.6 20.5 H 25.6 H (10-20) Glucose 71 59 L 78 (70-99(Fasting)) mg/dl POC Glucose (70-99) mg/dl Osmolality (280-300) mOsm/kg Lactate (0.4-2.0) mmol/L Calcium 7.3 L 7.3 L 7.3 L (8.6-10.3) mg/dl Phosphorus 3.4 (2.5-4.9) mg/dl Magnesium 1.9 1.9 (1.7-2.4) mg/dl Total Bilirubin 0.3 (0.2-1.0) mg/dl Direct Bilirubin (0-0.2) mg/dl AST 35 (13-39) U/L ALT 20 (7-52) U/L Alkaline Phosphatase 174 H (34-104) U/L C-Reactive Protein 21.37 H (0-0.5) mg/dl B-Natriuretic Peptide 116 H (0-100) pg/ml Total Protein 4.2 L (6.0-8.3) gm/dl Albumin 1.6 L (3.4-5.0) gm/dl Globulin 2.6 (2.5-4.0) gm/dl Albumin/Globulin Ratio 0.6 L (0.9-2) Procalcitonin 19.20 H (0-0.5) ng/ml Urine Color Urine Appearance (Clear) Urine pH (4.5-7.5) Ur Specific [place] (1.000-1.030) Urine Protein (Negative) Urine Glucose (UA) (Negative) Urine Ketones (Negative) Urine Blood (Negative) Urine Nitrite (Negative) Urine Bilirubin (Negative) Urine Urobilinogen (Negative) Ur Leukocyte Esterase (Negative) Urine RBC (0-2) /hpf Urine WBC (0-5) /hpf Ur Epithelial Cells (0-2) /hpf Urine Bacteria (None Seen) Urine Yeast (None Prsent) Fluid Neutrophils % % Fluid Lymphocytes % % Fluid Eosinophils % % Fl Monocyt/Macrophag % % Fluid Comment Stool Occult Bld Scrn (Negative) Random Vancomycin (10-20) mcg/ml Coccidioid immitis DNA SARS-CoV-2 (PCR) (Negative) Histo/Blasto PCR Result Influenza Type A (PCR) (Neg) Influenza Type B (PCR) (Neg) Legionella Source Legionella sp (PCR) L.pneumophila DNA (PCR) Pneumocyst jirovecii PCR Aspergillus Antigen RSV (RT-PCR) (Neg) Misc Micro Test 08/23/23 08/22/23 08/21/23 Range/Units 05:59 06:26 06:38 WBC 22.50 H 20.33 H 25.87 H (4.8-10.8) K/ul RBC 3.25 L 3.11 L 3.47 L (4.70-6.10) M/uL Hgb 9.5 L 9.2 L 10.3 L (14.0-18.0) g/dl POC Hgb (14.0-18.0) g/dl Hct 29.1 L 28.5 L 30.7 L (42.0-52.0) % POC Hct (42-52) % MCV 89.5 91.6 88.5 (80.0-100.0) fL MCH 29.2 29.6 29.7 (25.0-34.0) pg MCHC 32.6 32.3 33.6 (32.0-36.0) g/dL RDW Std Deviation 67.9 H 69.4 H 68.1 H (36.4-46.3) fL RDW Coeff of Jigna 21.5 H 21.2 H 21.8 H (11.5-14.5) % Plt Count 347 336 367 (130-400) K/uL MPV 10.6 11.0 10.8 (9.4-12.4) fL Immature Gran % (Auto) 1.1 1.6 1.6 % Neut % (Auto) 92.2 95.3 95.4 % Lymph % (Auto) 2.4 1.2 1.1 % [place] % (Auto) 1.4 1.8 1.8 % Eos % (Auto) 2.8 0.0 0.0 % Baso % (Auto) 0.1 0.1 0.1 % Neut # (Auto) 20.74 H 19.36 H 24.68 H (1.40-6.50) K/uL Lymph # (Auto) 0.55 L 0.25 L 0.29 L (1.20-3.40) K/uL [place] # (Auto) 0.31 0.37 0.46 (0.11-0.59) K/uL Eos # (Auto) 0.62 H 0.00 0.00 (0.00-0.50) K/uL Baso # (Auto) 0.03 0.02 0.03 (0.00-0.20) K/uL Immature Gran # (Auto) 0.25 H 0.33 H 0.41 H (0.01-0.20) K/uL Absolute Nucleated RBC 0.02 0.02 0.03 (0.00-0.12) K/uL Nucleated RBC % (auto) 0.1 0.1 0.1 % Toxic Vacuolation 1+ Polychromasia 2+ Anisocytosis Present Present Target Cells 2+ 2+ Sample Site POC pH (7.35-7.45) POC pCO2 (35-46) mmHg POC pO2 (80-95) mmHg POC HCO3 (19-24) aniyah/L POC Total CO2 (24-31) mmol/L POC Base Excess (-9-1.8) aniyah/L ABG pH (Temp Correct) (7.35-7.45) ABG pCO2 (Temp Corrct (35-46) mmHg POC ABG pO2 at Pt Temp POC ABG O2 Sat (90-95) % Blayne Test O2 Delivery Device POC O2 Rate Minute Ventilation POC FiO2 % Tidal Volume PEEP POC Sodium (135-144) mmol/L Sodium 142 148 H 146 H (136-145) mmol/L POC Potassium (3.3-5.0) mmol/L Potassium 4.3 4.4 D 3.6 (3.5-5.1) mmol/L Chloride 110 H 116 H 118 H (98-107) mmol/L Carbon Dioxide 30 27 25 (21-32) mmol/L Anion Gap 2 L 5 3 (3-11) BUN 12 13 11 (6-23) mg/dl Creatinine 0.48 L 0.60 0.63 (0.6-1.4) mg/dl Est Cr Clr Drug Dosing 153.2 125.7 133.3 ml/min Est GFR ( Amer) 136.9 124.9 122.4 ml/min Est GFR (Non-Af Amer) 118.1 107.8 105.6 ml/min BUN/Creatinine Ratio 25.0 H 21.7 H 17.5 (10-20) Glucose 61 L 89 85 (70-99(Fasting)) mg/dl POC Glucose (70-99) mg/dl Osmolality (280-300) mOsm/kg Lactate (0.4-2.0) mmol/L Calcium 7.4 L 7.3 L 7.3 L (8.6-10.3) mg/dl Phosphorus (2.5-4.9) mg/dl Magnesium 1.9 1.7 (1.7-2.4) mg/dl Total Bilirubin 0.3 (0.2-1.0) mg/dl Direct Bilirubin 0.1 (0-0.2) mg/dl AST 35 (13-39) U/L ALT 26 (7-52) U/L Alkaline Phosphatase 207 H (34-104) U/L C-Reactive Protein 4.86 H 1.29 H (0-0.5) mg/dl B-Natriuretic Peptide (0-100) pg/ml Total Protein 4.4 L (6.0-8.3) gm/dl Albumin 1.7 L (3.4-5.0) gm/dl Globulin (2.5-4.0) gm/dl Albumin/Globulin Ratio (0.9-2) Procalcitonin (0-0.5) ng/ml Urine Color Urine Appearance (Clear) Urine pH (4.5-7.5) Ur Specific [place] (1.000-1.030) Urine Protein (Negative) Urine Glucose (UA) (Negative) Urine Ketones (Negative) Urine Blood (Negative) Urine Nitrite (Negative) Urine Bilirubin (Negative) Urine Urobilinogen (Negative) Ur Leukocyte Esterase (Negative) Urine RBC (0-2) /hpf Urine WBC (0-5) /hpf Ur Epithelial Cells (0-2) /hpf Urine Bacteria (None Seen) Urine Yeast (None Prsent) Fluid Neutrophils % % Fluid Lymphocytes % % Fluid Eosinophils % % Fl Monocyt/Macrophag % % Fluid Comment Stool Occult Bld Scrn (Negative) Random Vancomycin (10-20) mcg/ml Coccidioid immitis DNA SARS-CoV-2 (PCR) (Negative) Histo/Blasto PCR Result Influenza Type A (PCR) (Neg) Influenza Type B (PCR) (Neg) Legionella Source Legionella sp (PCR) L.pneumophila DNA (PCR) Pneumocyst jirovecii PCR Aspergillus Antigen RSV (RT-PCR) (Neg) Misc Micro Test 08/21/23 08/15/23 Range/Units 06:10 18:30 WBC (4.8-10.8) K/ul RBC (4.70-6.10) M/uL Hgb (14.0-18.0) g/dl POC Hgb (14.0-18.0) g/dl Hct (42.0-52.0) % POC Hct (42-52) % MCV (80.0-100.0) fL MCH (25.0-34.0) pg MCHC (32.0-36.0) g/dL RDW Std Deviation (36.4-46.3) fL RDW Coeff of Jigna (11.5-14.5) % Plt Count (130-400) K/uL MPV (9.4-12.4) fL Immature Gran % (Auto) % Neut % (Auto) % Lymph % (Auto) % [place] % (Auto) % Eos % (Auto) % Baso % (Auto) % Neut # (Auto) (1.40-6.50) K/uL Lymph # (Auto) (1.20-3.40) K/uL [place] # (Auto) (0.11-0.59) K/uL Eos # (Auto) (0.00-0.50) K/uL Baso # (Auto) (0.00-0.20) K/uL Immature Gran # (Auto) (0.01-0.20) K/uL Absolute Nucleated RBC (0.00-0.12) K/uL Nucleated RBC % (auto) % Toxic Vacuolation Polychromasia Anisocytosis Target Cells Sample Site POC pH (7.35-7.45) POC pCO2 (35-46) mmHg POC pO2 (80-95) mmHg POC HCO3 (19-24) aniyah/L POC Total CO2 (24-31) mmol/L POC Base Excess (-9-1.8) aniyah/L ABG pH (Temp Correct) (7.35-7.45) ABG pCO2 (Temp Corrct (35-46) mmHg POC ABG pO2 at Pt Temp POC ABG O2 Sat (90-95) % Blayne Test O2 Delivery Device POC O2 Rate Minute Ventilation POC FiO2 % Tidal Volume PEEP POC Sodium (135-144) mmol/L Sodium (136-145) mmol/L POC Potassium (3.3-5.0) mmol/L Potassium (3.5-5.1) mmol/L Chloride (98-107) mmol/L Carbon Dioxide (21-32) mmol/L Anion Gap (3-11) BUN (6-23) mg/dl Creatinine (0.6-1.4) mg/dl Est Cr Clr Drug Dosing ml/min Est GFR ( Amer) ml/min Est GFR (Non-Af Amer) ml/min BUN/Creatinine Ratio (10-20) Glucose (70-99(Fasting)) mg/dl POC Glucose (70-99) mg/dl Osmolality (280-300) mOsm/kg Lactate (0.4-2.0) mmol/L Calcium (8.6-10.3) mg/dl Phosphorus (2.5-4.9) mg/dl Magnesium (1.7-2.4) mg/dl Total Bilirubin (0.2-1.0) mg/dl Direct Bilirubin (0-0.2) mg/dl AST (13-39) U/L ALT (7-52) U/L Alkaline Phosphatase (34-104) U/L C-Reactive Protein (0-0.5) mg/dl B-Natriuretic Peptide (0-100) pg/ml Total Protein (6.0-8.3) gm/dl Albumin (3.4-5.0) gm/dl Globulin (2.5-4.0) gm/dl Albumin/Globulin Ratio (0.9-2) Procalcitonin (0-0.5) ng/ml Urine Color Urine Appearance (Clear) Urine pH (4.5-7.5) Ur Specific [place] (1.000-1.030) Urine Protein (Negative) Urine Glucose (UA) (Negative) Urine Ketones (Negative) Urine Blood (Negative) Urine Nitrite (Negative) Urine Bilirubin (Negative) Urine Urobilinogen (Negative) Ur Leukocyte Esterase (Negative) Urine RBC (0-2) /hpf Urine WBC (0-5) /hpf Ur Epithelial Cells (0-2) /hpf Urine Bacteria (None Seen) Urine Yeast (None Prsent) Fluid Neutrophils % % Fluid Lymphocytes % % Fluid Eosinophils % % Fl Monocyt/Macrophag % % Fluid Comment Stool Occult Bld Scrn Negative (Negative) Random Vancomycin (10-20) mcg/ml Coccidioid immitis DNA SARS-CoV-2 (PCR) (Negative) Histo/Blasto PCR Result Influenza Type A (PCR) (Neg) Influenza Type B (PCR) (Neg) Legionella Source Legionella sp (PCR) L.pneumophila DNA (PCR) Pneumocyst jirovecii PCR Aspergillus Antigen RSV (RT-PCR) (Neg) Misc Micro Test See Scanned Report Diagnostic Findings Chest X-Ray 08/09/23 16:46 XR chest 1V portable HISTORY: Sepsis COMPARISON: Chest 07/08/2022. FINDINGS: No pneumothorax. No pleural effusions. The heart is normal in size. No focal lung consolidations to suggest a pneumonia. No evidence for pulmonary edema. Degenerative changes within the shoulders again noted. Thoracic spinal rods are intact. Epigastric suture material, unchanged. IMPRESSION: No significant change compared to the prior study. No acute process. ACT 112: Negative or not required by law. Electronically signed by: Adrian Martinez M.D. 08/09/2023 5:[address] 08/09/23 17:[address] DOSE: HISTORY: Altered mental status. TECHNIQUE: Multiaxial CT images of the head were performed without the use of intravenous contrast. Automated exposure control was utilized for this study. A dose lowering technique was utilized adhering to the principles of ALARA. Comparison: Head CT 01/05/2022. Findings: The paranasal sinuses and mastoid air cells are clear. The calvarium and skull base are intact. There is no mass, hematoma, midline shift, acute infarct. White matter hypodensity is nonspecific but suggestive of microvascular ischemic change. The ventricles and sulci demonstrate mild age-related involutional changes. Stable 8 mm calcified nodule adjacent to the left anterior clinoid. This may represent a calcified meningioma. This is of doubtful clinical significance. Impression: No significant change compared to the prior study. No acute intracranial abnormality. ACT 112: Negative or not required by law. Electronically signed by: Adrian Martinez M.D. 08/09/2023 6:33 PM Abdomen/Pelvis CT 08/09/23 18:[address] WITH IV CONTRAST CT DOSE: 1412.47 mGy.cm HISTORY: Transaminitis, altered mental status TECHNIQUE: Multiaxial CT images of the abdomen and pelvis were performed following the use of intravenous contrast. A dose lowering technique was utilized adhering to the principles of ALARA. COMPARISON STUDY: Abdomen and pelvis CT 03/15/2022. FINDINGS: Partial opacification of the distal lower lobe bronchi. Consolidation within the right lower lobe posteriorly with tree-in-bud nodular opacities within the lung bases. This likely represents an aspiration pneumonitis. No pneumoperitoneum. No pneumatosis. Bilateral sacral decubitus ulcers again noted with mild erosion of the bilateral ischial tuberosities and partial erosion of the coccyx. This is similar to the prior study and may represent an acute on chronic osteomyelitis. No acute fractures identified. There are partially visualized thoracic spinal rods. There is a moderate hiatus hernia. Surgical clips within the stomach consistent with a prior distal gastrectomy. This remains unchanged. Prior cholecystectomy. The main portal vein is patent. The liver, pancreas, and adrenal glands are unremarkable. The spleen remains atrophic possibly representing splenosis. Normal caliber abdominal aorta. Subcentimeter retroperitoneal lymph nodes remain stable. No pelvic lymphadenopathy. Moderate body wall edema. Diffuse muscular atrophy again noted. Moderate bilateral cortical thinning/scarring again noted. Moderate bilateral hydroureteronephrosis, unchanged. There is a large stone within the left kidney. There is also a 13 mm nonobstructing stone within the right renal pelvis. There is an additional punctate stone within the lower pole of the right kidney. Gas within the bilateral renal collecting systems likely due to the ureteral stents and Camp catheter within the bladder lumen. There is also a small amount of gas within the bladder lumen. The bilateral ureteral stents appear in good position. No ureteral calculi identified. The bladder is decompressed. Bladder wall thickening again noted. There is urothelial thickening within the bilateral renal collecting systems and ureters with mild bilateral periureteral edema/fat stranding. This has progressed in the interval. This could represent chronic irritation from ureteral stents. However, an infectious pyelitis is also considered in the differential diagnosis given the progression. Large stool ball within the distal sigmoid colon and rectum. This is similar to the prior study. The stool ball measures approximately 10 cm. This distends the rectum. Proximal to this the colon is distended and fluid-filled which has progressed. This suggests a distal large bowel obstruction due to the fecal impaction. Moderate well-formed stool also seen scattered throughout the colon. There are few dilated loops of small bowel within the right side the abdomen. Mild thickening of the distal sigmoid colon and rectum for the degree of distention. This raises the possibility of a stercoral colitis. This is similar to the prior study. IMPRESSION: 1. Large stool ball within the distal sigmoid colon and rectum. This is similar to the prior study. Proximal to this the colon is distended and fluid-filled which has progressed. This suggests a distal large bowel obstruction due to the fecal impaction. 2. Mild thickening of the distal sigmoid colon and rectum for the degree of distention. This raises the possibility of a stercoral colitis. This is similar to the prior study. 3. Moderate bilateral hydroureteronephrosis, unchanged. The ureteral stents and Camp catheter appear in good position. 4. Bilateral nephrolithiasis. No ureteral calculi. 5. There is urothelial thickening within the bilateral renal collecting systems and ureters with mild bilateral periureteral edema/fat stranding. This has progressed in the interval. This could represent chronic irritation from ureteral stents. However, an infectious pyelitis is also considered in the differential diagnosis given the progression. 6. Partial opacification of the distal lower lobe bronchi. Consolidation within the right lower lobe posteriorly with tree-in-bud nodular opacities within the lung bases. This likely represents an aspiration pneumonitis. 7. Bilateral sacral decubitus ulcers again noted with mild erosion of the bilateral ischial tuberosities and partial erosion of the coccyx. This is similar to the prior study and may represent an acute on chronic osteomyelitis. 8. Additional findings as described above. ACT 112: Negative or not required by law. Electronically signed by: Adrian Martinez M.D. 08/09/2023 6:49 PM Chest X-Ray 08/13/23 09:54 XR chest 1V portable HISTORY: 63 years-old Male hypoxia COMPARISON: 08/09/2023 TECHNIQUE: AP view of the chest FINDINGS: pneumothorax. No pleural effusions. The heart is normal in size. Pulmonary vascular congestion. No focal lung consolidations to suggest a pneumonia. Degenerative changes within the shoulders again noted. Thoracic spinal rods are intact. Epigastric suture material, unchanged. IMPRESSION: Mild pulmonary vascular congestion. ACT 112: Negative or not required by law. The above report was generated using voice recognition software. It may contain grammatical, syntax or spelling errors. Electronically signed by: Prateek Garcia M.D. 08/13/2023 11:12 AM Chest CTA 08/13/23 11:58 CT ANGIOGRAPHY OF THE CHEST, PULMONARY EMBOLUS PROTOCOL CLINICAL HISTORY: hypoxia, paraplegia, elevated d-Dimer COMPARISON STUDY: Chest CT July 18, 2022. Chest radiograph performed earlier today. CT of the abdomen and pelvis August 09, 2023. TECHNIQUE: Following IV administration of 123 mL of Optiray, helical axial images of the chest were obtained utilizing the pulmonary embolus protocol. Maximal intensity projections and sagittal and coronal reformats were viewed on an independent 3D workstation. IV contrast was administered without complication. Automated exposure control was utilized for the study. A dose lowering technique was utilized adhering to the principles of ALARA. CT DOSE: 582.43 mGy.cm FINDINGS: This exam is significantly compromised by motion artifact. No central pulmonary emboli are identified. The remainder of the pulmonary arteries are suboptimally assessed. There is no thoracic dissection. A moderate sized hiatal hernia is present. There are prominent right hilar lymph nodes. There is no pneumothorax. Small bilateral pleural effusions are present. Bilateral lower lobe opacities are greater within the right lower lobe. Scattered tree-in-bud nodules are present. There are also moderate alveolar opacities within the upper lobes. Lower lobe airspace opacities have increased since recent abdominal CT of August 09, 2023. Right humeral internal fixation is present. Scoliosis hardware is in place. There is body wall edema. Left hydronephrosis is partially imaged. This was shown on recent abdominal CT. IMPRESSION: 1. Exam significantly compromised by motion artifact. No central pulmonary emboli. Remainder of pulmonary arteries suboptimally assessed due to artifact. 2. Increase in bilateral lower lobe alveolar opacities. The findings favor aspiration pneumonitis. Pneumonia could appear similar. 3. Extensive bilateral upper lobe groundglass opacities. An infectious etiology is favored. Alveolar pulmonary edema could appear similar. 4. Small bilateral pleural effusions. 5. Left hydronephrosis, partially imaged on this exam. This was shown on recent abdominal CT. ACT 112: Negative or not required by law. Electronically signed by: Omar Fisher M.D. 08/13/2023 2:57 PM Venous Doppler Study 08/15/23 00:00 Exam(s): US VENOUS BILATERAL LOWER EXTREMITIES EXAM: US Duplex Bilateral Lower Extremities Veins CLINICAL HISTORY: Deep vein thrombosis TECHNIQUE: Real-time duplex ultrasound scan of the bilateral lower extremity veins integrating B-mode two-dimensional vascular structure, Doppler spectral analysis, color flow Doppler imaging and compression. COMPARISON: No relevant prior studies available. FINDINGS: Right deep veins: Unremarkable. No Deep vein thrombosis in the right common femoral, femoral, proximal deep femoral or popliteal veins. The veins demonstrate normal color flow, are normally compressible, with normal phasic flow and/or augmentation response. Right superficial veins: Unremarkable. No thrombus in the visualized right great saphenous vein. Left deep veins: Unremarkable. No Deep vein thrombosis in the left common femoral, femoral, proximal deep femoral or popliteal veins. The veins demonstrate normal color flow, are normally compressible, with normal phasic flow and/or augmentation response. Left superficial veins: Unremarkable. No thrombus in the visualized left great saphenous vein. Soft tissues: Nonspecific subcutaneous edema bilaterally. No popliteal cyst. IMPRESSION: 1. Nonspecific subcutaneous edema bilaterally. 2. No deep vein thrombosis of either lower extremity. Electronically signed by: Bryanna Pemberton MD 08/15/23 06:32 AM Chest X-Ray 08/15/23 00:33 XR chest 1V portable CLINICAL HISTORY: increased work of breathing COMPARISON STUDY: Chest radiograph and chest CT August 13, 2023. FINDINGS: Right humeral internal fixation hardware and scoliosis hardware is incidentally noted. There is no pneumothorax. There are trace bilateral pleural effusions. Cardiomediastinal silhouette is stable. Bilateral airspace opacities and interstitial thickening have progressed. IMPRESSION: 1. Progression of interstitial thickening and bilateral airspace opacities. The findings favor pulmonary edema however pneumonia could appear similar. 2. Trace bilateral pleural effusions. ACT 112: Negative or not required by law. Electronically signed by: Omar Fisher M.D. 08/15/2023 6:55 AM Chest CTA 08/15/23 02:23 Exam(s): CTA CHEST IV Amt: 118 ML OPTIRAY 320 EXAM: CT Angiography Chest With Intravenous Contrast CLINICAL HISTORY: Reason for exam: PE. TECHNIQUE: Axial computed tomographic angiography images of the chest with intravenous contrast. Automated exposure control was utilized for the study. A dose lowering technique was utilized adhering to the principles of ALARA. MIP reconstructed images were created and reviewed. COMPARISON: CTA Chest dated august 13 2023 FINDINGS: Pulmonary arteries: Motion artifact limits evaluation. Despite this, no evidence of pulmonary embolism within the pulmonary outflow tract or immediate proximal branches. Aorta: Atherosclerotic disease. No thoracic aortic aneurysm. Lungs: Increased burden of ground-glass opacification within the lungs, most prominently within the right middle lobe and upper lobes. These are favored to be infectious in nature. Sequela of alveolar pulmonary edema also possible. Pleural space: Unremarkable. No significant effusion. No pneumothorax. Heart: Unremarkable. No cardiomegaly. No significant pericardial effusion. No evidence of RV dysfunction. Mediastinum: Moderate esophageal hiatal hernia. Esophageal thickening which is favored to be inflammatory nature. Bones/joints: Degenerative changes in the spine. Thoracic spinal fusion hardware. No acute fracture. No dislocation. Soft tissues: Diffuse soft tissue edema suggesting anasarca. Lymph nodes: Unremarkable. No enlarged lymph nodes. Kidneys and ureters: Partially visualized expiratory phase within the dilated left renal collecting system. IMPRESSION: 1. Motion artifact limits evaluation. Despite this, no evidence of pulmonary embolism within the pulmonary outflow tract or immediate proximal branches. 2. Moderate esophageal hiatal hernia. 3. Esophageal thickening which is favored to be inflammatory nature. 4. Increased burden of ground-glass opacification within the lungs, most prominently within the right middle lobe and upper lobes. These are favored to be infectious in nature. Sequela of alveolar pulmonary edema also possible. 5. Diffuse soft tissue edema suggesting anasarca. Electronically signed by: Ryan Duckworth MD 08/15/23 06:43 AM Chest X-Ray 08/15/23 08:00 XR chest 1V portable CLINICAL HISTORY: pulm vasc congestion TECHNIQUE: Single frontal radiograph of the chest was obtained. Comparison: Comparison is made to chest radiograph 08/15/2023 FINDINGS: Fixation hardware is seen in the right humerus and thoracic spine. The cardiomediastinal silhouette is normal. There is prominence and cephalization of the vasculature with Dianne B lines seen. Airspace opacities are seen. No evidence of pleural effusion or pneumothorax. IMPRESSION: Pulmonary edema is seen with multifocal airspace opacities likely representing alveolar edema, with or without superimposed pneumonia. ACT 112: Negative or not required by law. Electronically signed by: Colt Johnson M.D. 08/15/2023 8:19 AM Chest X-Ray 08/15/23 16:45 XR chest 1V portable HISTORY: 63 years-old Male aspiration pneumonitis, hypoxia acute shortness of breath COMPARISON: Chest radiograph of same day at 6:48 AM and CTA chest of same day TECHNIQUE: AP view chest FINDINGS: Cardiac mediastinal and hilar silhouettes are unchanged. Mixed interstitial and alveolar opacities are noted diffusely throughout the lungs which have mildly progressed. No pneumothorax. Trace pleural effusions. Spinal fusion hardware redemonstrated. IMPRESSION: 1. Persistent progression of the mixed interstitial and alveolar opacities which may represent multifocal pneumonia versus pulmonary edema. 2. Small pleural effusions. ACT 112: Negative or not required by law. The above report was generated using voice recognition software. It may contain grammatical, syntax or spelling errors. Electronically signed by: Prateek Garcia M.D. 08/15/2023 5:08 PM Chest X-Ray 08/15/23 20:19 XR chest 1V portable HISTORY: 63 years-old Male respiratory failure, suspected asp pneumonitis acute respiratory failure COMPARISON: 08/15/2023 at 4:55 PM TECHNIQUE: AP view of the chest FINDINGS: Cardiomediastinal and hilar silhouettes are unchanged. Mixed interstitial and alveolar opacities redemonstrated which are mildly worsened. No pneumothorax. Probable trace pleural effusions. Spinal fusion hardware redemonstrated. IMPRESSION: Mildly worsened mixed interstitial and alveolar opacities suggestive of pulmonary edema. ACT 112: Negative or not required by law. The above report was generated using voice recognition software. It may contain grammatical, syntax or spelling errors. Electronically signed by: Prateek Garcia M.D. 08/16/2023 7:32 AM Chest X-Ray 08/16/23 07:00 XR chest 1V portable HISTORY: 63 years-old Male Resp failure acute respiratory failure COMPARISON: 08/15/2023 TECHNIQUE: AP view of the chest FINDINGS: Cardiomediastinal and hilar silhouettes are unchanged. Mixed interstitial and alveolar opacities redemonstrated which have mildly improved. No pneumothorax. Probable trace pleural effusions. Spinal fusion hardware redemonstrated. IMPRESSION: Mild improvement of the mixed interstitial and alveolar opacities suggestive of improved pulmonary edema. ACT 112: Negative or not required by law. The above report was generated using voice recognition software. It may contain grammatical, syntax or spelling errors. Electronically signed by: Prateek Garcia M.D. 08/16/2023 7:12 AM Chest X-Ray 08/17/23 10:35 XR chest 1V portable HISTORY: 63 years-old Male hypoxic resp failure, pneumonitis acute shortness of breath COMPARISON: 08/16/2023 TECHNIQUE: AP view of the chest FINDINGS: Cardiomediastinal and hilar silhouettes are unchanged. Mixed interstitial and alveolar opacities redemonstrated, stable to mildly worsened. No pneumothorax. Probable trace pleural effusions. Spinal fusion hardware redemonstrated. Hardware noted within the right proximal humerus. IMPRESSION: Stable to mildly worsened diffuse mixed interstitial and alveolar opacities. ACT 112: Negative or not required by law. The above report was generated using voice recognition software. It may contain grammatical, syntax or spelling errors. Electronically signed by: Prateek Garcia M.D. 08/17/2023 10:55 AM Videofluoroscopic Swallow 08/19/23 00:00 FL video swallow CLINICAL HISTORY: 63 years-old Male with r/o aspiration. Dysphagia TECHNIQUE: Video fluoroscopic evaluation of swallowing was performed in the AP and lateral projections by the speech pathology staff. The patient is fed varying consistencies of barium. FLUOROSCOPY TIME: 1.13 minutes. 2073 images. 5.78 mGy. COMPARISON STUDY: Chest radiograph 08/19/2023 FINDINGS: Donaldo aspiration with initial thin liquid barium and subsequent cough. Study is otherwise within normal limits. IMPRESSION: 1. Aspiration with thin liquid barium 2. Please see the speech pathologist report for detailed findings and recommendations. ACT 112: Negative or not required by law. Electronically signed by: Prateek Garcia M.D. 08/19/2023 11:20 AM Chest X-Ray 08/19/23 08:00 XR chest 1V portable HISTORY: 63 years-old Male hypoxic resp failure, suspected ARDS acute shortness of breath COMPARISON: 08/17/2023 TECHNIQUE: AP view of the chest FINDINGS: Cardiomediastinal and hilar silhouettes are unchanged. Mixed interstitial and alveolar opacities redemonstrated, mildly improved. No pneumothorax. Probable trace pleural effusions. Spinal fusion hardware redemonstrated. Surgical suture material of the upper abdomen. Hardware noted within the right proximal humerus. IMPRESSION: 1. Mildly improved aeration of the lungs. 2. No pneumothorax. 3. Probable trace pleural effusions. ACT 112: Negative or not required by law. The above report was generated using voice recognition software. It may contain grammatical, syntax or spelling errors. Electronically signed by: Prateek Garcia M.D. 08/19/2023 7:23 AM Chest X-Ray 08/21/23 10:39 XR chest 1V portable CLINICAL HISTORY: worsening hypoxia TECHNIQUE: Single frontal radiograph of the chest was obtained. Comparison: Comparison is made to chest radiograph 08/19/2023 FINDINGS: Orthopedic hardware is unchanged. The cardiomediastinal silhouette is normal. There is prominence and cephalization of the vasculature with Dianne B lines seen. Airspace opacities are seen centrally, right greater than left. No evidence of pleural effusion or pneumothorax. IMPRESSION: Interstitial edema is increased from prior exam. Airspace opacities may represent alveolar edema or pneumonia. ACT 112: Negative or not required by law. Electronically signed by: Colt Johnson M.D. 08/21/2023 11:10 AM Chest X-Ray 08/25/23 07:00 SINGLE VIEW CHEST CLINICAL HISTORY: Hypoxia. Pneumonia FINDINGS: An AP, portable, upright chest radiograph is compared to study dated 08/21/2023 and correlated with chest CT dated 08/15/2023. The heart is enlarged. There is pulmonary vascular congestion. Diffuse multifocal airspace opacities are unchanged to modestly worsened as compared to 08/21/2023. There are small pleural effusions. No pneumothorax is seen. The skeletal structures are osteopenic. The bony thorax is grossly intact. A medullary nail is noted in the right humerus. Thoracic spinal rods are in place. Suture material and surgical clips project over the upper abdomen. IMPRESSION: 1. Cardiomegaly with evidence of congestive failure. 2. Diffuse multifocal airspace opacities are unchanged to modestly worsened as compared to 08/21/2023. This could represent pulmonary edema, multifocal pneumonia, and/or ARDS. Clinical correlation will be required and radiographic f ollow-up to resolution is recommended. 3. Small pleural effusions. ACT 112: Negative or not required by law. Electronically signed by: Luther Vasquez M.D. 08/25/2023 7:53 AM Chest X-Ray 08/27/23 07:00 XR chest 1V portable CLINICAL HISTORY: f/u PNA,hypoxia, CHF COMPARISON STUDY: Chest CT August 15, 2023. Chest radiograph August 25, 2023. FINDINGS: Right humeral internal fixation and thoracic spine scoliosis hardware are incidentally noted. There is no pneumothorax or pleural effusion. Cardiomediastinal silhouette is stable. Interstitial thickening and diffuse airspace opacities have slightly progressed. IMPRESSION: Extensive airspace opacities and interstitial thickening which have slightly progressed since prior exam. The findings favor multifocal pneumonia. Pulmonary edema or ARDS could appear similar. ACT 112: Negative or not required by law. Electronically signed by: Omar Fisher M.D. 08/27/2023 7:33 AM Chest X-Ray 08/27/23 14:56 SINGLE VIEW CHEST CLINICAL HISTORY: Hypoxia. FINDINGS: An AP, portable, upright chest radiograph is compared to performed earlier the same day 08/17/2023 and correlated with chest CT dated 08/15/2023. The heart is enlarged. There is pulmonary vascular congestion. Diffuse multifocal airspace opacities are unchanged to modestly worsened as compared to 08/21/2023. There are small pleural effusions. No pneumothorax is seen. The skeletal structures are osteopenic. The bony thorax is grossly intact. Thoracic spinal rods are in place. Suture material and surgical clips project over the upper abdomen. IMPRESSION: 1. Cardiomegaly with evidence of congestive failure. 2. Diffuse multifocal airspace opacities are similar to today's earlier examination. 3. Small pleural effusions. ACT 112: Negative or not required by law. Electronically signed by: Luther Vasquez M.D. 08/27/2023 3:[address] 08/27/23 16:07 CT OF THE CHEST WITHOUT IV CONTRAST CLINICAL HISTORY: ARDS. COMPARISON STUDY: Chest CT August 15, 2023. Chest radiograph performed earlier today. CT DOSE: 508.67 mGy.cm TECHNIQUE: Axial images of the chest were obtained without IV contrast. Images were reviewed in the axial, sagittal, and coronal planes. IV contrast was not administered for this examination. Automated exposure control was utilized for the study. A dose lowering technique was utilized adhering to the principles of ALARA. FINDINGS: Endotracheal and nasogastric tubes are well-positioned. There is no pneumothorax. There has been interval development of small to moderate pneumomediastinum. There are small bilateral pleural effusions. Diffuse ground glass opacities throughout the lungs have progressed since CT of August 15, 2023. Small superimposed areas of consolidation have developed. There is no cavitation. No thoracic lymphadenopathy is noted. A small hiatal hernia is present. Right humeral internal fixation and thoracic spine scoliosis hardware is present. Left hydronephrosis is again noted. Several left upper pole renal calculi measure up to 7 mm. IMPRESSION: 1. Appropriately positioned endotracheal and nasogastric tubes. 2. Interval development of small to moderate pneumomediastinum. No pneumothorax. 3. Progression of diffuse airspace opacities throughout the lungs which would be consistent with the provided history of ARDS. Multifocal pneumonia or pulmonary edema could appear similar. 4. Small bilateral pleural effusions. 5. Left hydronephrosis, as shown on prior CT. Left nephrolithiasis. ACT 112: Negative or not required by law. Electronically signed by: Omar Fisher M.D. 08/27/2023 5:05 PM Chest X-Ray 08/27/23 17:41 XR chest 1V portable CLINICAL HISTORY: intubation/ central line/ OG tube TECHNIQUE: Single frontal radiograph of the chest was obtained. Comparison: Comparison is made to chest radiograph 08/27/2023 FINDINGS: Satisfactory position of enteric tube. Endotracheal tube evaluation is limited by orthopedic fixation hardware however appears to terminate approximately 4.5 cm from the judy. The cardiomediastinal silhouette is normal. Multifocal airspace opacities are seen. Indistinct pulmonary vasculature is again seen. No evidence of pleural effusion or pneumothorax. IMPRESSION: 1. Satisfactory position of lines and tubes. 2. Multiple airspace opacities and evidence of pulmonary edema, unchanged. ACT 112: Negative or not required by law. Electronically signed by: Colt Johnson M.D. 08/27/2023 6:01 PM PG Care Time/CCT Total # of Minutes Spent Total Time Spent with Patient: Total time spent is greater than 50% in coordination of care (as documented) at patient's floor/unit and/or counseling patient: I spent 85 minutes overall addressing this case: 20 min in medical data review/discussion with referring provider(s) and/or preparation for the visit 15 min in direct interaction with the patient/exam 25 min in Advance Care Planning/Goals of Care discussions as detailed above in note (must be >16min) 10 min in subsequent review and synthesis of assessment and plan 15 min communicating with other providers regarding the patient's case: Advanced Care Planning 95526 Advanced Care Planning 30 [place] [address] IN/OBS CONSULT LVL 4,60M (25 - SIGNIFICANT, SEPARATELY IDENTIFIABLE ) Patient Type New Medical Decision Making High Complexity Diagnoses Dyspnea and respiratory abnormalities R06.00; R06.89 Weakness generalized R53.1 Advanced care planning/counseling discussion Z71.89 Palliative care by specialist Z51.5 Paraplegia G82.20 Additional Codes Advanced Care Planning - 87673 Advanced Care Planning 30 Min: 67547 Advanced Care Planning 30 Min ([id number])
[2023-08-28 05:20] LABS: Hematocrit (blood only) 26.3 % (42.0-52.0); Hemoglobin 8.5 g/dl (14.0-18.0); Mean Corpuscular Hemoglobin 29.3 pg (25.0-34.0); Mean Corpuscular Hgb Conc 32.3 g/dL (32.0-36.0); Mean Corpuscular Volume 90.7 fL (80.0-100.0); Platelet Count 312 K/uL (130-400); RDW Coefficient of Variation 18.8 % (11.5-14.5); RDW Standard Deviation 61.4 fL (36.4-46.3); White Blood Count 18.74 K/ul (4.8-10.8)
[2023-08-28 05:21] LABS: BUN Creatinine Ratio 21.5 (10-20); Creatinine Clr Calc Pharmacy 83.4 ml/min; Est GFR (African American) 111.5 ml/min; Est GFR (Non-African American) 96.2 ml/min; Potassium 3.4 mmol/L (3.5-5.1)
[2023-08-28] MEDS: ICU Protocol for HYPERglycemia SCH (06:14)
[2023-08-28] MEDS ORDERED: GLUCOSE 40% GEL 15 GM TUBE PO PRN (06:19)
[2023-08-28] MEDS ORDERED: DEXTROSE 50% 50 ML SYRINGE IV PRN (06:19)
[2023-08-28] MEDS ORDERED: GLUCOSE 10 TAB/TUBE PO PRN (06:19)
[2023-08-28] MEDS ORDERED: GLUCAGON FOR INJ 1 MG VIAL SQ PRN (06:19)
[2023-08-28] MEDS ORDERED: CARBOHYDRATES FOR HYPOGLYCEMIA PO PRN (06:19)
[2023-08-28] MEDS: POTASSIUM CHLORIDE / WTR 20 MEQ/100 ML PLCT IV SCH (06:20)
[2023-08-28] MEDS: MAGNESIUM SULFATE / D5W 1 GM/100 ML BAG IV ONE (06:22)
[2023-08-28] MEDS: INSULIN ASPART PER UNIT CHARGE SC SCH (06:28)
[2023-08-28 06:39] LABS: Basophils # (auto) 0.04 K/uL (0.00-0.20); Basophils % (auto) 0.2 %; Echinocytes 1+; Immature Granulocytes # (auto) 0.52 K/uL (0.01-0.20); Immature Granulocytes % (auto) 2.8 %; Lymphocytes # (auto) 0.27 K/uL (1.20-3.40); Lymphocytes % (auto) 1.4 %; Monocytes # (auto) 0.32 K/uL (0.11-0.59); Monocytes % (auto) 1.7 %; Neutrophils # (auto) 17.59 K/uL (1.40-6.50); Neutrophils % (auto) 93.9 %; Polychromasia 1+; Target Cells 1+
[2023-08-28] MEDS ORDERED: ICU Protocol for HYPERglycemia SCH (07:30)
[2023-08-28] MEDS ORDERED: STAT IV Infusion **Titration per Protocol STA (08:29)
--- NOTE | 2023-08-28 08:35 | XRay Report ---
XR chest 1V portable CLINICAL HISTORY: eval lung aldrich, lines/tubes, pneumomediastinum TECHNIQUE: Single frontal radiograph of the chest was obtained. Comparison: Comparison is made to chest radiograph 08/27/2023 FINDINGS: Lines and tubes are stable. The tip of the left subclavian catheter is better visualized, it is loope d in the left subclavian artery. The cardiomediastinal silhouette is stable. Pneumomediastinum is bet ter seen on prior CT. Multifocal airspace opacities are seen. No evidence of pleural effusion or pneu mothorax. IMPRESSION: 1. Redemonstration multifocal airspace opacities. 2. The left subclavian catheter tip is looped in the subclavian artery. 3. Additional stable findings as above. ACT 112: Negative or not required by law. Electronically signed by: Colt Johnson M.D. 08/28/2023 8:33 AM
[2023-08-28] MEDS: CISATRACURIUM BESYLATE 40 MG in DEXTROSE 5% 80 ML IV SCH (08:49)
[2023-08-28] MEDS: ARTIFICIAL TEARS OP OINT 3.5 GM TUBE OP SCH (08:53)
--- NOTE | 2023-08-28 08:59 | Infectious Disease Progress Nt ---
Date of Service August 28, 2023 Assessment & Plan (1) Hypoxemia: (2) Infection due to human metapneumovirus (hMPV): (3) Sacral decubitus ulcer: (4) Osteomyelitis: (5) Complicated UTI (urinary tract infection): (6) Paraplegia: Plan 63yo M with h/o T4 paraplegia, neurogenic bladder s/p indwelling Garrison and ureteral stents (last stent exchange May 2023), prior h/o UTI/pyelo, asplenia, HTN, HLD who presented on 08/08 with confusion and somnolence. He initially presented to [facility] 08/01 where he was treated with antibiotics and lactulose for elevated ammonia. Patient had improved but became more somnolent and confused so patient was signed out AMA by partner from [facility] and brought to [facility]. Per chart (urology note), he had sudden onset of pain into flank going down and radiating into groin and back in waves. In the ED, he was hypotensive to 70s which improved with IVFs. Afebrile, on 2-3L NC. Initial labs WBC 14.3, Cr 0.59. Elevated d dimer. AST/ALT in 50s. CRP 8.47. PCT 0.91. UA with >50 WBC, 3-5 epithelial cells, yeast (from garrison, not changed). UCX with E faecalis and Cinda. CXR negative. CT head neg. CTAP with large stool ball within the distal sigmoid colon and rectum, findings c/f distal large bowel obstruction 2/2 fecal impaction and stercoral colitis; bl hydroureteronephrosis unchanged; bl urothelial thickening with bl periureteral edema/fat stranding thats progressed, could be chronic irritation from ureteral stents or infectious pyelitis; findings of possible aspiration PNA in RLL and opacities in lung bases; bl sacral decubitus ulcers with mild erosion of bl ischial tuberosities and coccyx, similar to prior c/w acute on chronic OM. He was admitted with multiple issues and started on empiric abx. Had BM with tx of fecal impaction. Started on empiric abx, including fluconazole. Was seen by urology, no plan for intervention, likely stent exchange outpatient. He was seen by surgery and nonoperative chemical debridement advised for sacrum. CXR on 08/12 with mild pulmonary vascular congestion. CTA chest limited, increased bl lower lobe alveolar opacities favoring aspiration, extensive upper lobe GGO favoring infectious etiology, pulmonary edema could appear similar, small bl pleural effusions, left hydronephrosis. WBC initially downtrended, but then increased up to 16.62. ID consulted 08/13 for sacral OM. UA 08/13 after garrison exchange with >50 WBC. UCx with Cinda. Course c/b hypoxia, increased WOB, and lethargy o/n on -08/14. Patient placed on bipap with improvement. CTA chest negative for PE; moderate esophageal hiatal hernia with esophageal thickening; increased burden of GGO within the lungs most prominently in RML and RUL favoring infectious in nature, sequela of pulmonary edema possible; diffuse soft tissue edema suggesting anasarca. PCT 1.03. Lactate 2.8. D dimer 1020. RPP with Human metapneumovirus. Swallow study with aspiration noted. Planned for 14 days of Vanc/Unasyn/fluconazole which would cover UTI, sacral SSTI, and PNA (note MRSA screen positive) to complete 08/23, ID then signed off. Course then c/b worsening leukocytosis and hypoxia, requiring HFNC. CRP 23, PCT 19.2. UA with 21-50 WBC. CXR with diffuse multifocal airspace opacities, unchanged to modestly worsened, could represent pulmonary edema, multifocal PNA, and/or ARDS. Abx were resumed with vanc/cefepime/flagyl on 08/24. ID reconsulted 08/25. COVID/Flu/RSV negative. He continued to have worsening hypoxia and WOB eventually requiring intubation on 08/26. Chest CT with interval development of small-moderate pneumomediastinum; progression of diffuse airspace opacities which could be c/w ARDS, multifocal PNA or pulmonary edema could be similar; left hydronephrosis. S/p bronchoscopy 08/26. On pressors. Will f/u BAL studies and adjust antibiotic regimen accordingly. Note, he had recent UCx with Cinda, which at this point likely represents colonization and I would not treat this. # Acute respiratory failure s/p intubation CT with ARDS vs multifocal PNA or edema # Recent human metapneumovirus infection # Aspiration PNA s/p 10d of abx # Sacral ulcers with underlying OM s/p 14d of abx for SSTI # Bl hydroureteronephrosis with findings of possible chronic irritation of ureteral stents vs infectious pyelitis, cx E faecalis and Cinad s/p unasyn/fluconazole x 14d # Fecal impaction with stercoral colitis s/p BM - f/u BAL studies - continue on empiric vancomycin, cefepime and flagyl - will adjust antibiotics pending culture results ID will continue to follow. If questions or concerns, contact Infectious Disease Call Center . Amisha Santana MD [facility], Division of Infectious Diseases [facility]: [phone] Admission and Anticipated Discharge Date Admission Date: August 09, 2023 Subjective Subsequent visit was provided via telemedicine using two-way real-time interactive telecommunication between the patient and the telemedicine provider. For the duration of the visit, the provider was performing the assessment from a different facility than the patient. This includesuse of bluetooth stethoscope forauscultationperformed by the telepresenter that the telemedicine provider can hear if described in the physical exam. Senior [employer] contact information: Please call [facility] Call Center [phone]. (Phone Number For Physician Use Only) After establishing a telemedicine visit, patient was: Patient was verified with two unique identifiers, Patient/authorized rep acknowledged consent and underst anding and Gave permission to continue telehealth session Time Spent with Patient: Subsequent => 55 min Patient intubated. Per RN, minimal secretions, which are thick creamy. No loose stools. Physical Exam Physical Exam: General: intubated Lungs: diminished Heart: regular Abdomen: soft, nondistended Ext: no LE edema Skin: no rash or open sources Results & Data Vital Signs (Past 12 Hours) Vital Signs Temp Pulse Pulse Resp BP BP Pulse Ox 08/28/23 05:00 36.4 C L 80 25 H 96/60 L 95 08/28/23 04:24 88 29 H 93 08/28/23 04:00 36.6 C 24 114/59 L 93 08/28/23 03:00 36.6 C 82 24 118/77 94 08/28/23 02:00 36.5 C 77 30 H 114/72 94 08/28/23 01:00 36.5 C 86 26 H 119/70 93 08/28/23 00:00 36.5 C 88 24 126/84 96 08/27/23 23:37 89 24 94 08/27/23 23:00 89 08/27/23 23:00 37.0 C 89 24 106/56 L 95 08/27/23 22:00 93 H 24 103/56 L 93 O2 Del Method FiO2 08/28/23 05:00 Mechanical Vent 08/28/23 04:24 65 08/28/23 04:00 Mechanical Vent 65 08/28/23 03:00 Mechanical Vent 08/28/23 02:00 Mechanical Vent 65 08/28/23 01:00 Mechanical Vent 08/28/23 00:00 Mechanical Vent 65 08/27/23 23:37 65 08/27/23 23:00 08/27/23 23:00 Mechanical Vent 65 08/27/23 22:00 Mechanical Vent 65 Laboratory Results Labs reviewed. Diagnostic Findings Imaging reviewed. (3) Sacral decubitus ulcer Pressure injury stage: unspecified pressure injury stage Qualified Code(s): L89.159 - Pressure ulcer of sacral region, unspecified stage
[2023-08-28] MEDS: ALBUMIN 25% 25 GM/100 ML VIAL IV SCH (09:02)
[2023-08-28 10:38] LABS: iSTAT Art Bld Gas pCO2 Correct 52 mmHg (35-46); iSTAT Arterial Blood Gas HCO3 30 meg/L (19-24); iSTAT Arterial Blood Gas pCO2 52 mmHg (35-46); iSTAT Arterial Blood Gas pH 7.37 (7.35-7.45); iSTAT Arterial Blood Gas pO2 63 mmHg (80-95); iSTAT Arterial Blood Gas pO2 C 63; iSTAT Carbon Dioxide 32 mmol/L (24-31); iSTAT FiO2 60 %; iSTAT Hematocrit 29 % (42-52); iSTAT Hemoglobin 9.9 g/dl (14.0-18.0); iSTAT Potassium 4.3 mmol/L (3.3-5.0); iSTAT Site Art Line; iSTAT Sodium 140 mmol/L (135-144)
[2023-08-28 10:38] LABS: iSTAT Art Bld Gas pCO2 Correct 56 mmHg (35-46); iSTAT Art Bld Gas pH Corrected 7.353 (7.35-7.45); iSTAT Arterial Blood Gas HCO3 31 meg/L (19-24); iSTAT Arterial Blood Gas pCO2 55 mmHg (35-46); iSTAT Arterial Blood Gas pH 7.36 (7.35-7.45); iSTAT Arterial Blood Gas pO2 42 mmHg (80-95); iSTAT Arterial Blood Gas pO2 C 42; iSTAT Carbon Dioxide 33 mmol/L (24-31); iSTAT Hematocrit 29 % (42-52); iSTAT Hemoglobin 9.9 g/dl (14.0-18.0); iSTAT Potassium 4.3 mmol/L (3.3-5.0); iSTAT Site Art Line; iSTAT Sodium 141 mmol/L (135-144)
--- NOTE | 2023-08-28 10:57 | XRay Report ---
SINGLE VIEW CHEST CLINICAL HISTORY: Central venous catheter placement. FINDINGS: An AP, portable, supine chest radiograph is compared to performed earlier the same day 08/27 and correlated with chest CT dated 08/27/2023. An endotracheal tube and enteric tube are unchang ed in position. A left subclavian central venous catheter is in place. The tip is coiled in the left subclavian vein. Pneumomediastinum is observed. The heart is enlarged. . Diffuse multifocal airspace opacities have not appreciably changed as compared to today's earlier examination. There are small pl eural effusions. No pneumothorax is clearly seen. The skeletal structures are osteopenic. The bony th orax is grossly intact. Thoracic spinal rods are in place. Suture material and surgical clips project over the upper abdomen. An intramedullary nail is noted in the right humerus. IMPRESSION: 1. A left subclavian central venous catheter is in place. The tip remains coiled within the subclavia n vein. 2. The remaining lines and tubes are unchanged. 3. Extensive/diffuse multifocal airspace opacities are similar to today's earlier examination. 4. Pneumomediastinum is again noted. No pneumothorax is clearly seen. ACT 112: Negative or not required by law. Electronically signed by: Luther Vasquez M.D. 08/28/2023 10:56 AM
--- NOTE | 2023-08-28 11:04 | XRay Report ---
XR chest 1V portable CLINICAL HISTORY: Check CVC placement COMPARISON STUDY: Chest radiograph August 28, 2023 at 10:33 AM. FINDINGS: The left subclavian central line tip remains coiled within the left subclavian vein. No pne umothorax is identified on supine exam. Pneumomediastinum is similar to prior chest radiograph. This has increased since chest CT of August 27, 2023. Tip of endotracheal tube is 4.6 cm above the judy. T ip of nasogastric tube is within the stomach. Diffuse airspace opacities within the lungs persist. Ca rdiomediastinal silhouette is stable. Scoliosis hardware is incidentally noted. IMPRESSION: 1. Left subclavian central line tip remains coiled within the left subclavian vein. 2. Satisfactory positioning of the endotracheal and nasogastric tubes. 3. Redemonstration of pneumomediastinum. No pneumothorax. 4. Extensive airspace opacities within the lungs. ACT 112: Negative or not required by law. Electronically signed by: Omar Fisher M.D. 08/28/2023 11:01 AM
--- NOTE | 2023-08-28 11:51 | Procedure Note ---
Procedure Note Date of Service August 28, 2023 Note Right INTERNAL JUGULAR CENTRAL LINE PROCEDURE NOTE: Procedure: Internal Jugular Central Line Placement Indication: Central Drug Administration, Poor Venous Access, Multiple Lab Draws Necessary, etc. Anesthesia: Precedex and fentanyl none/8 mm lidocaine 1% Emergency consent was implied as the patient is currently intubated sedated and hypotensive on pressors. Timeout performed immediately prior to the procedure. A time-out was completed verifying correct patient, procedure, site, positioning, and implants(s) or special equipment if applicable. Patients right neck was cleansed and draped in the typical sterile fashion using Chloraprep. The Internal Jugular Vein and Carotid Artery were identified using ultrasound. The superficial tissue was anesthetized using 10 mL of 1% lidocaine without epinephrine under direct visualization with the ultrasound. After adequate anesthetization was achieved, the Internal Jugular vein was cannulated under direct ultrasound guidance using an introducer needle on a syringe. Good venous blood return was maintained prior to removal of syringe from introducer needle. Using Seldinger Technique, a guide wire was advanced through the introducer needle without resistance. The introducer needle was removed and ultrasound images were obtained of the guide wire within the Internal Jugular Vein and saved to the patients medical record. A small incision was made in penetrating fashion at the guide wire insertion site utilizing an 11 blade scalpel. The dilator was advanced to the vessel without resistance. The dilator was exchanged for the triple lumen catheter which was advanced into the vessel without resistance. The guide wire was removed intact from the catheter without issue. Claves were placed on each catheter tip with confirmation of good blood flow from each lumen. Each port was easily flushed with sterile saline. The catheter was placed at 16 cm and sutured in place. BioPatch was applied to the catheter and a sterile Tegaderm dressing was applied over the catheter with careful attention to sterility. Patient tolerated procedure well. No immediate complications were met. Postprocedure chest x-ray is pending. Coding CPT Codes Tubes, Drains, and Vasc Access - Tubes, Drains, and Vasc Access: [id number] Ultrasound Guidance For Vascular ([id number]) Tubes, Drains, and Vasc Access - Tubes, Drains, and Vasc Access: [id number] Place catheter in vein superior or inferior vena cava ([id number]) [facility] [place] Codes (Charges) Tubes, Drains, and Vasc Access Procedure 1: Tubes, Drains, and Vasc Access: [id number] Ultrasound Guidance For Vascular Procedure 2: Tubes, Drains, and Vasc Access: [id number] Place catheter in vein superior or inferior vena cava
--- NOTE | 2023-08-28 12:00 | Critical Care Progress Note ---
Date of Service August 28, 2023 Assessment & Plan (1) ARDS (adult respiratory distress syndrome): (2) Septic shock: (3) Pneumonia: (4) Infection due to human metapneumovirus (hMPV): (5) Hypoxemia: (6) Pneumomediastinum: (7) Hypotension: Plan Impression: 63-year-old male with multiple medical issues and multiple infectious etiologies now with increasing oxygen requirement of unclear etiology. Patient with essentially ARDS and was intubated 08/27/2023. Neurologic: Continue Precedex, fentanyl and neuromuscular blockade to promote ventilator synchrony. Pulmonary: Patient with pneumomediastinum secondary to poor lung compliance. Will follow low PEEP and high FiO2 strategy given pneumomediastinum. Continue with lung protective ventilation strategy. Patient a poor candidate for proning given T4 paraplegia, rods in his back, sacral decubitus ulcer and pneumomediastinum patient is status post bronchoscopy 08/27/2023 with numerous studies sent for bacterial and fungal etiologies. Started on IV methylprednisone for fibroproliferative ARDS. ID is following the patient as well and antibiotics per ID at this time. Cardiovascular: Patient with evidence of septic shock secondary to multifocal pneumonia and sedation. Currently on Levophed which is actively being titrated. Patient with sinus tachycardia. EF unremarkable. Will continue to follow telemetry. Unfortunately, the left subclavian line had to be pulled today as it appeared to be coiled in the left subclavian vein. A new right IJ catheter was placed with appropriate placement noted. Gastrointestinal: OG tube in place. Holding on tube feeds today due to pressor requirements and profound hypoxemia. Renal: Urine output substantially decreased this morning. Will hold diuresis. Will start the patient on albumin every 8 hours and trend urine output closely. Continue Camp catheter. Replacing electrolytes as needed. Infectious disease: On broad-spectrum antibiotics as per ID recommendations. Awaiting culture data from bronchoscopy 08/27/2023. Hematologic: Patient with anemia of chronic disease. Holding aspirin and Lovenox at this time due to coiled subclavian line and placement of new right IJ central line. Endocrine: Maintain euglycemia. Lines and tubes: Right IJ central line placed 08/28/2023. Left subclavian line placed 08/27/2023 removed 08/28/2023. Left radial arterial line placed 08/27/2023. VTE prophylaxis: SCDs CODE STATUS: Full code Family at bedside: Currently not available at bedside. Had extensive discussion with and patient prior to intubation yesterday. Patient indicates that he would NOT want a tracheostomy or prolonged ventilation. Disposition: I have personally spent 91 minutes of critical care time in the direct management of this patient. This is a life/limb threatening event. This includes time spent evaluating patient, direct bedside care, chart review, placing orders, interpretation of diagnostic studies, discussion with consultants, patient, and family members, as well as other required patient management activities. This time is exclusive of all separately billable procedures, and teaching time and separate from and in addition to any other critical care service time. Thank you for allowing us to participate in the care of this patient. Admission and Anticipated Discharge Date Admission Date: August 09, 2023 Subjective Patient currently on neuromuscular blockade, intubated and sedated. Unable to participate in exam or review of systems. Urine output has been marginal this morning. Physical Exam Physical Exam: Constitutional: Frail appearing male who is cachectic. Currently intubated and sedated. Eyes: Pupils sluggish and minimally reactive to light. Ears nose, mouth and throat: 8.[address]. OG tube in place as well. Neck: Trachea is midline. Visual inspection is normal. Respiratory: Diffuse rhonchi bilaterally. Tachypnea. Cardiovascular: Regular rate and rhythm. No murmurs. No edema. Gastrointestinal: Normal bowel sounds, soft, nontender and nondistended. No hepatosplenomegaly noted. Musculoskeletal: No cyanosis. Patient is able to move all extremities. Strength is 5 out of 5 in the upper and lower extremities. Skin: No rashes, warm dry and intact. Large sacral decubitus ulcer. Neurologic: Unable to assess as the patient is on neuromuscular blockade. Psychiatric: Unable to assess as patient is currently intubated and sedated. Results & Data Results & Data Vital Signs (Past 12 Hours) Vital Signs Temp Pulse Pulse Pulse Resp BP Pulse Ox 08/28/23 09:44 90 24 93 08/28/23 08:55 82 91 08/28/23 08:45 82 29 H 91 08/28/23 05:00 36.4 C L 80 25 H 96/60 L 95 08/28/23 04:24 88 29 H 93 08/28/23 04:00 36.6 C 24 114/59 L 93 08/28/23 03:00 36.6 C 82 24 118/77 94 08/28/23 02:00 36.5 C 77 30 H 114/72 94 08/28/23 01:00 36.5 C 86 26 H 119/70 93 08/28/23 00:00 36.5 C 88 24 126/84 96 O2 Del Method O2 Flow Rate FiO2 08/28/23 09:44 60 08/28/23 08:55 Mechanical Vent 50 08/28/23 08:45 50 08/28/23 05:00 Mechanical Vent 08/28/23 04:24 65 08/28/23 04:00 Mechanical Vent 65 08/28/23 03:00 Mechanical Vent 08/28/23 02:00 Mechanical Vent 65 08/28/23 01:00 Mechanical Vent 08/28/23 00:00 Mechanical Vent 65 Coding Level of Care Code PROLONG IP/OBS E/M EA 15 MIN Diagnoses ARDS (adult respiratory distress syndrome) J80 Septic shock A41.9; R65.21 Pneumonia J18.9 Infection due to human metapneumovirus (hMPV) B34.8 Hypoxemia R09.02 Pneumomediastinum J98.2 Hypotension I95.9 Hypotension type: unspecified hypotension type Time Spent (min) 91 (7) Hypotension Hypotension type: unspecified hypotension type Qualified Code(s): I95.9 - Hypotension, unspecified
--- NOTE | 2023-08-28 12:45 | XRay Report ---
XR chest 1V portable CLINICAL HISTORY: Check CVC placement TECHNIQUE: Single frontal radiograph of the chest was obtained. Comparison: Comparison is made to chest radiograph 08/28/2023 FINDINGS: Interval removal of left subclavian line. Right IJ catheter has been placed with the tip in the right atrium. Remaining lines and tubes are stable. Pneumomediastinum is partially visualized. Multifocal airspace opacities are seen. No evidence of pleural effusion or pneumothorax. IMPRESSION: 1. A right IJ catheter has been placed. The tip is in the right atrium and can be withdrawn approxim ately 2 cm for improved positioning. Remaining lines and tubes are in satisfactory position. 2. Stable multifocal airspace opacities and pneumomediastinum. ACT 112: Negative or not required by law. Electronically signed by: Colt Johnson M.D. 08/28/2023 12:43 PM
--- NOTE | 2023-08-28 14:38 | Hospitalist Progress Note ---
Date of Service August 28, 2023 Assessment & Plan (1) Sepsis: Plan: This has progressed to septic shock. He is now on pressor support. Appreciate infectious disease consultation and recommendations. He remains on vancomycin, cefepime, and Flagyl. (2) Acute respiratory failure with hypoxia: Plan: Now on ventilator support. He previously made it clear he would not want prolonged ventilatory support or tracheostomy. His is in agreement (3) Pneumonia: Plan: Bilateral aspiration pneumonia suspected. Appreciate speech therapy assistance. He also appears to have ARDS (4) Metabolic encephalopathy: Plan: Supportive care. Multiple etiologies. Now intubated and sedated (5) Right ischial pressure sore: Plan: Chronic. With associated chronic osteomyelitis. Continue local care. Wound care consultation appreciated. He does have a WoundVac in place. General surgery consultation appreciated. They indicate no need for debridement at this time. Currently on vancomycin, cefepime, Flagyl (6) Infection due to human metapneumovirus (hMPV): Plan: supportive care. Multifocal opacities on chest x-ray could indicate a viral component (7) Acute UTI: Plan: He has a catheter associated UTI. Camp exchanged here shortly after admission. 2 species of Cinda isolated along with Enterococcus faecalis. Treated with Unasyn and Diflucan. Appreciate urology consultation and recommendations. He has bilateral ureter stents in place. Urology indicates that these will be exchanged at a later date as an outpatient (8) Fecal impaction: Plan: Present on admission. Now resolved. Is back on oxycodone from home for chronic pain (9) Anemia: Plan: No overt blood loss except now does have some mild hematuria. Hgb 8-9 and drifted down to the 7s range. Transfused 1 unit PRBCs August 17, for hemoglobin 7.4. Serial labs-hgb remains stable at 9-10 (10) Pneumomediastinum: Plan: Seen on imaging. No intervention needed at this time. Will follow (11) ARDS (adult respiratory distress syndrome): Plan: Currently intubated with ventilator support. Pulmonary medicine consult appreciated Plan To be determined. Insurance denied LTAC placement on August 21. Admission and Anticipated Discharge Date Admission Date: August 09, 2023 Subjective Clinically deteriorated. He is now intubated and sedated and requiring pressor support. Critical care discussion with and patient earlier this admission and they made it clear he would not want prolonged respiratory support or tracheostomy. Review of Systems 2 Review of Systems: The patient is intubated and sedated and unable to answer any questions regarding review of systems Physical Exam 2 Physical Exam: General-intubated and sedated HEENT-head atraumatic and normocephalic, ET tube and OT tube in place Neck-no lymphadenopathy or thyromegaly, trachea midline Chest-bilateral rhonchi. No wheezing Cardiac mildly tachycardic regular rate and rhythm, normal S1 and S2 Abdomen-normal bowel sounds, no hepatosplenomegaly Extremities-bilateral lower extremities are atrophic in appearance from paraplegia Neuro-cannot assess. Intubated and sedated Psych-cannot assess. Intubated and sedated Results & Data Results & Data Vital Signs (Past 12 Hours) Vital Signs Temp Pulse Pulse Pulse Resp BP BP 08/28/23 13:34 140/63 08/28/23 13:03 36.0 C L 84 24 08/28/23 12:00 08/28/23 12:00 36.4 C L 83 24 08/28/23 12:00 90 08/28/23 11:03 36.7 C 89 19 08/28/23 10:00 91/62 L 08/28/23 10:00 37.2 C 83 12 08/28/23 09:44 90 24 08/28/23 09:09 37.2 C 92 H 22 08/28/23 09:00 96/60 L 08/28/23 08:55 08/28/23 08:55 82 08/28/23 08:45 82 29 H 08/28/23 08:36 37.1 C 79 14 08/28/23 08:30 89/49 L 08/28/23 08:06 37.0 C 79 21 08/28/23 08:00 08/28/23 08:00 08/28/23 08:00 92/62 L 08/28/23 08:00 75 08/28/23 08:00 90 08/28/23 07:00 36.7 C 75 19 08/28/23 07:00 105/74 08/28/23 05:00 36.4 C L 80 25 H 96/60 L 08/28/23 04:24 88 29 H 08/28/23 04:00 36.6 C 24 114/59 L 08/28/23 03:00 36.6 C 82 24 118/77 BP Pulse Ox O2 Del Method O2 Flow Rate FiO2 08/28/23 13:34 08/28/23 13:03 91 08/28/23 12:00 65 08/28/23 12:00 89 L 08/28/23 12:00 08/28/23 11:03 89 L 65 08/28/23 10:00 08/28/23 10:00 93 08/28/23 09:44 93 60 08/28/23 09:09 90 08/28/23 09:00 08/28/23 08:55 93/49 L 08/28/23 08:55 91 Mechanical Vent 50 08/28/23 08:45 91 50 08/28/23 08:36 91 Mechanical Vent 50 08/28/23 08:30 08/28/23 08:06 96 08/28/23 08:00 65 08/28/23 08:00 Mechanical Vent 65 08/28/23 08:00 08/28/23 08:00 08/28/23 08:00 08/28/23 07:00 95 Mechanical Vent 65 08/28/23 07:00 08/28/23 05:00 95 Mechanical Vent 08/28/23 04:24 93 65 08/28/23 04:00 93 Mechanical Vent 65 08/28/23 03:00 94 Mechanical Vent Laboratory Results 08/28/23 04:52 08/28/23 04:52 PG Care Time/CCT Total # of Minutes Spent Total Time Spent with Patient: Total time spent is greater than 50% in coordination of care (as documented) at patient's floor/unit and/or counseling patient: Coding Level of Care Code 29704 SUB INP/OBS CARE 3/50MIN Diagnoses Sepsis with acute hypoxic respiratory failure without septic shock, due to unspecified organism A41.9; R65.20; J96.01 Sepsis type: sepsis due to unspecified organism Sepsis acute organ dysfunction status: with acute organ dysfunction Severe sepsis acute organ dysfunction type: acute respiratory failure Acute respiratory failure type: with hypoxia Severe sepsis shock status: without septic shock Acute respiratory failure with hypoxia J96.01 Pneumonia J18.9 Metabolic encephalopathy G93.41 Right ischial pressure sore L89.319 Infection due to human metapneumovirus (hMPV) B34.8 Acute UTI N39.0 Fecal impaction K56.41 Anemia D64.9 Pneumomediastinum J98.2 ARDS (adult respiratory distress syndrome) J80 (1) Sepsis Sepsis type: sepsis due to unspecified organism Sepsis acute organ dysfunction status: with acute organ dysfunction Severe sepsis acute organ dysfunction type: acute respiratory failure Acute respiratory failure type: w ith hypoxia Severe sepsis shock status: without septic shock Qualified Code(s): A41.9 - Sepsis, unspecified organism; R65.20 - Severe sepsis without septic shock; J96.01 - Acute respiratory failure with hypoxia
[2023-08-28] MEDS: fentaNYL BOLUS from BAG IV PRN (14:53)
[2023-08-29 05:36] LABS: BUN Creatinine Ratio 24.7 (10-20); Calcium 7.1 mg/dl (8.6-10.3); Creatinine Clr Calc Pharmacy 63.8 ml/min; Est GFR (African American) 101.6 ml/min; Est GFR (Non-African American) 87.7 ml/min; Potassium 4.7 mmol/L (3.5-5.1)
[2023-08-29 05:45] LABS: Hematocrit (blood only) 19.3 % (42.0-52.0); Hemoglobin 6.1 g/dl (14.0-18.0); Mean Corpuscular Hemoglobin 29.2 pg (25.0-34.0); Mean Corpuscular Hgb Conc 31.6 g/dL (32.0-36.0); Mean Corpuscular Volume 92.3 fL (80.0-100.0); Mean Platelet Volume 10.9 fL (9.4-12.4); Nucleated RBC # (auto) 0.02 K/uL (0.00-0.12); Nucleated RBC % (auto) 0.1 %; Platelet Count 235 K/uL (130-400); RDW Coefficient of Variation 20.2 % (11.5-14.5); RDW Standard Deviation 67.5 fL (36.4-46.3); Red Blood Count 2.09 M/uL (4.70-6.10); White Blood Count 18.45 K/ul (4.8-10.8)
[2023-08-29 05:46] LABS: Anisocytosis Present; Basophils # (auto) 0.02 K/uL (0.00-0.20); Basophils % (auto) 0.1 %; Immature Granulocytes # (auto) 0.21 K/uL (0.01-0.20); Immature Granulocytes % (auto) 1.1 %; Lymphocytes # (auto) 0.42 K/uL (1.20-3.40); Lymphocytes % (auto) 2.3 %; Monocytes # (auto) 0.66 K/uL (0.11-0.59); Monocytes % (auto) 3.6 %; Neutrophils # (auto) 17.14 K/uL (1.40-6.50); Neutrophils % (auto) 92.9 %; Target Cells 1+
[2023-08-29 05:58] LABS: iSTAT Art Bld Gas pCO2 Correct 59 mmHg (35-46); iSTAT Art Bld Gas pH Corrected 7.304 (7.35-7.45); iSTAT Arterial Blood Gas HCO3 29 meg/L (19-24); iSTAT Arterial Blood Gas pCO2 58 mmHg (35-46); iSTAT Arterial Blood Gas pH 7.31 (7.35-7.45); iSTAT Arterial Blood Gas pO2 91 mmHg (80-95); iSTAT Arterial Blood Gas pO2 C 94; iSTAT Carbon Dioxide 31 mmol/L (24-31); iSTAT FiO2 65 %; iSTAT Hematocrit 21 % (42-52); iSTAT Hemoglobin 7.1 g/dl (14.0-18.0); iSTAT Potassium 4.9 mmol/L (3.3-5.0); iSTAT Site Art Line; iSTAT Sodium 138 mmol/L (135-144)
[2023-08-29] MEDS ORDERED: SODIUM CHLORIDE 0.9% 250 ML IV PRN (07:31)
--- NOTE | 2023-08-29 07:56 | XRay Report ---
SINGLE VIEW CHEST CLINICAL HISTORY: Follow-up pneumomediastinum. FINDINGS: An AP, portable, upright chest radiograph is compared to performed dictated 08/28/2023 and c orrelated with chest CT dated 08/27/2023. An endotracheal tube and enteric tube are unchanged in posit ion. A right internal jugular central venous catheter is again noted. The tip projects over the right atrium. Pneumomediastinum is again noted. The heart is enlarged. Diffuse multifocal airspace opacit ies have not appreciably changed as compared to history. There are small pleural effusions. No pneumo thorax is clearly seen. The skeletal structures are osteopenic. The bony thorax is grossly intact. Th oracic spinal rods are in place. Suture material and surgical clips project over the upper abdomen. A n intramedullary nail is noted in the right humerus. IMPRESSION: 1. Lines and tubes as above. 2. Extensive/diffuse multifocal airspace opacities are similar to yesterday. 3. Pneumomediastinum is again noted. ACT 112: Negative or not required by law. Electronically signed by: Luther Vasquez M.D. 08/29/2023 7:55 AM
--- NOTE | 2023-08-29 07:57 | Pharmacy Report ---
Pharmacy PK ABX Note - Date of Service August 29, 2023 - Assessment and Plan Assessment 08/08: * Given inc in scr yesterday from 0.64 to 0.79 and Bayesian model with an intermediate fit, repeat level was obtained a day early this morning. Level was elevated and dose adjusted significantly. Scr also increased again today to 0.93. Patient's clearance is now noted to be significantly lower than what population kinetics would suggest. Will order another level this evening prior to the altered dose to ensure clearance. 08/26: Reviewed vancomycin level, predicting therapeutic AUC/KONSTANTIN, continue current regimen. Concern currently for hospital acquired pneumonia (MRSA nares positive) also ongoing sacral ulcers. ID following. Currently on cefepime/Flagyl/vancomycin, completed 14 day course of fluconazole for fluconazole sensitive [facility] UTI. Blood cultures negative, repeat 08/25 pending 08/24: * 63 yo M started on Vancomycin and Cefepime for pneumonia this morning. * Patient has been admitted for extended period and did received vanc previously during admission. Will use info to guide current dosing. * Afebrile. White count of 23k. SCr at 0.46. Patient is paraplegic. Plan Vancomycin * Current regimen: 750 mg (~13 mg/kg) IV every 12 hours * Random level obtained 08/29/23 resulted as 35.9 mcg/mL. This is predicted to achieve AUC/KONSTANTIN above target of 400-600 mg/L.hr * Change to 750 mg IV every 24 hours starting tonight at 2300 * Predicted AUC at steady state: 500 mg/L.hr * Repeat random level ordered for: 08/29/23 @ 1999. 24 Cefepime * 2000 mg IV every 8 hours * Flagyl 500mg IV every 8 hours Pharmacy will continue to follow and will adjust dose/frequency as necessary. Thank you. Pharmacy has transitioned to AUC monitoring for vancomycin. AUC/KONSTANTIN is the preferred PK/PD target and is associated with decreased risk of nephrotoxicity compared to traditional trough targets.
[2023-08-29] MEDS: CALCIUM GLUCONATE 1,000 MG/60 ML BAG IV SCH (10:09)
[2023-08-29 10:42] LABS: iSTAT Art Bld Gas pCO2 Correct 54 mmHg (35-46); iSTAT Art Bld Gas pH Corrected 7.304 (7.35-7.45); iSTAT Arterial Blood Gas HCO3 27 meg/L (19-24); iSTAT Arterial Blood Gas pCO2 55 mmHg (35-46); iSTAT Arterial Blood Gas pO2 73 mmHg (80-95); iSTAT Arterial Blood Gas pO2 C 70; iSTAT Carbon Dioxide 29 mmol/L (24-31); iSTAT FiO2 60 %; iSTAT Hematocrit 25 % (42-52); iSTAT Hemoglobin 8.5 g/dl (14.0-18.0); iSTAT Potassium 4.8 mmol/L (3.3-5.0); iSTAT Site Art Line; iSTAT Sodium 135 mmol/L (135-144)
--- NOTE | 2023-08-29 11:40 | Critical Care Progress Note ---
Date of Service August 29, 2023 Assessment & Plan (1) ARDS (adult respiratory distress syndrome): (2) Septic shock: (3) Pneumonia: (4) Infection due to human metapneumovirus (hMPV): (5) Hypoxemia: (6) Pneumomediastinum: (7) Hypotension: (8) Acute anemia: Plan Impression: 63-year-old male with multiple medical issues and multiple infectious etiologies now with increasing oxygen requirement of unclear etiology. Patient with essentially ARDS and was intubated 08/27/2023. Neurologic: Continue Precedex, fentanyl and neuromuscular blockade to promote ventilator synchrony. Pulmonary: Patient with pneumomediastinum secondary to poor lung compliance. Will follow low PEEP and high FiO2 strategy given pneumomediastinum. Continue with lung protective ventilation strategy. Patient a poor candidate for proning given T4 paraplegia, rods in his back, sacral decubitus ulcer and pneumomediastinum patient is status post bronchoscopy 08/27/2023 with numerous studies sent for bacterial and fungal etiologies. Started on IV methylprednisone for fibroproliferative ARDS. ID is following the patient as well and antibiotics per ID at this time. CT chest 08/27/2023 with evidence of small to moderate pneumomediastinum and progressive diffuse alveolar damage. Cardiovascular: Patient with evidence of septic shock secondary to multifocal pneumonia and sedation. Levophed has been weaned down. Patient with sinus tachycardia. EF unremarkable. Will continue to follow telemetry. Gastrointestinal: OG tube in place. Will initiate tube feeds today. Continue Protonix 40 mg twice daily. Renal: Replacing electrolytes and giving as needed albumin for low urine output. Magy ent with a history of bilateral hydronephrosis status post stenting. 2 species of Cinda isolates along with Enterococcus from 08/09/2023 Infectious disease: [facility] cultures negative thus far.. Awaiting culture data from bronchoscopy 08/27/2023. Human metapneumovirus is positive on admission 08/15/2023. PJP, Aspergillus antigen, Legionella PCR histo, blasto and cocci pending from BAL fluid. Hematologic: Patient with anemia of chronic disease. Holding aspirin and Lovenox due to acute anemia. Patient receiving 2 units of packed RBCs. Unclear etiology for patient's anemia at this time. Multiple possible sources including GI bleed and wounds. Endocrine: Maintain euglycemia. Lines and tubes: Right IJ central line placed 08/28/2023. Left subclavian line placed 08/27/2023 removed 08/28/2023. Left radial arterial line placed 08/27/2023. VTE prophylaxis: SCDs CODE STATUS: Full code Family at bedside: Currently not available at bedside. Disposition: I have personally spent 41 minutes of critical care time in the direct management of this patient. This is a life/limb threatening event. This includes time spent evaluating patient, direct bedside care, chart review, placing orders, interpretation of diagnostic studies, discussion with consultants, patient, and family members, as well as other required patient management activities. This time is exclusive of all separately billable procedures, and teaching time and separate from and in addition to any other critical care service time. Thank you for allowing us to participate in the care of this patient. Admission and Anticipated Discharge Date Admission Date: August 09, 2023 Subjective Patient seen and examined. Remains on neuromuscular blockade and continuous sedation. Urine output remains poor. Review of Systems Review of Systems: Unobtainable due to cognitive status and Unobtainable due to endotracheal tube Physical Exam Physical Exam: Constitutional: Frail appearing male who is cachectic. Currently intubated and sedated. Eyes: Pupils sluggish and minimally reactive to light. Ears nose, mouth and throat: 8.[address]. OG tube in place as well. Neck: Trachea is midline. Visual inspection is normal. Respiratory: Diffuse rhonchi bilaterally. Tachypnea. Cardiovascular: Regular rate and rhythm. No murmurs. No edema. Gastrointestinal: Normal bowel sounds, soft, nontender and nondistended. No hepatosplenomegaly noted. Musculoskeletal: No cyanosis. Patient is able to move all extremities. Strength is 5 out of 5 in the upper and lower extremities. Skin: No rashes, warm dry and intact. Large sacral decubitus ulcer. Neurologic: Unable to assess as the patient is on neuromuscular blockade. Psychiatric: Unable to assess as patient is currently intubated and sedated. Results & Data Results & Data Vital Signs (Past 12 Hours) Vital Signs Temp Pulse Resp BP Pulse Ox O2 Del Method FiO2 08/29/23 11:00 36.4 C L 73 26 H 133/55 L 93 08/29/23 10:35 96 H 28 H 93 60 08/29/23 10:12 36.9 C 69 26 H 132/57 L 94 08/29/23 09:12 37 C 82 26 H 132/56 L 94 08/29/23 08:42 37 C 83 26 H 124/51 L 94 08/29/23 08:27 37.1 C 84 24 119/49 L 90 08/29/23 08:11 37.2 C 89 24 111/48 L 90 08/29/23 08:07 90 24 90 55 08/29/23 08:00 Mechanical Vent 55 08/29/23 08:00 55 08/29/23 06:00 145/82 H 08/29/23 05:57 37.5 C 82 24 96 08/29/23 05:00 37.6 C H 85 24 96 08/29/23 05:00 147/84 H 08/29/23 05:00 147/84 H 08/29/23 04:27 37.6 C H 85 24 96 08/29/23 04:00 65 08/29/23 04:00 86 08/29/23 03:58 86 24 96 65 08/29/23 03:00 37.6 C H 88 17 96 08/29/23 02:42 37.5 C 87 16 96 08/29/23 01:09 37.4 C 85 24 96 08/29/23 00:47 84 24 95 65 08/29/23 00:06 37.2 C 84 21 96 08/29/23 00:00 65 08/29/23 00:00 85 Coding Level of Care Code 47129 CRITICAL CARE 1ST 30-74M Diagnoses ARDS (adult respiratory distress syndrome) J80 Septic shock A41.9; R65.21 Pneumonia J18.9 Infection due to human metapneumovirus (hMPV) B34.8 Hypoxemia R09.02 Pneumomediastinum J98.2 Hypotension I95.9 Hypotension type: unspecified hypotension type Acute anemia D64.9 (7) Hypotension Hypotension type: unspecified hypotension type Qualified Code(s): I95.9 - Hypotension, unspecified
[2023-08-29] MEDS: PEPTAMEN 1.5 CAL 1,000 ML BAG OG SCH (11:49)
--- NOTE | 2023-08-29 13:12 | Hospitalist Progress Note ---
Date of Service August 29, 2023 Assessment & Plan (1) Sepsis: Plan: This has progressed to septic shock. He was on pressor support but has now been weaned off. Appreciate infectious disease consultation and recommendations. He remains on vancomycin, cefepime, and Flagyl. (2) Acute respiratory failure with hypoxia: Plan: Now on ventilator support. He previously made it clear he would not want prolonged ventilatory support or tracheostomy. His is in agreement (3) Pneumonia: Plan: Bilateral aspiration pneumonia suspected. Appreciate speech therapy assistance. He also appears to have ARDS (4) Metabolic encephalopathy: Plan: Supportive care. Multiple etiologies. Now intubated and sedated (5) Right ischial pressure sore: Plan: Chronic. With associated chronic osteomyelitis. Continue local care. Wound care consultation appreciated. He does have a WoundVac in place. General surgery consultation appreciated. They indicate no need for debridement at this time. Currently on vancomycin, cefepime, Flagyl (6) Infection due to human metapneumovirus (hMPV): Plan: supportive care. Multifocal opacities on chest x-ray could indicate a viral component (7) Acute UTI: Plan: He has a catheter associated UTI. Camp exchanged here shortly after admission. 2 species of Cinda isolated along with Enterococcus faecalis. Treated with Unasyn and Diflucan. Appreciate urology consultation and recommendations. He has bilateral ureter stents in place. Urology indicates that these will be exchanged at a later date as an outpatient (8) Fecal impaction: Plan: Present on admission. Now resolved. Is back on oxycodone from home for chronic pain (9) Anemia: Plan: Hemoglobin has dropped to 6.4 today, August 28. 2 units packed red blood cells will be administered. He previously received 1 unit transfusion earlier this admission. Serial labs. No overt GI bleeding (10) Pneumomediastinum: Plan: Seen on imaging. Appears stable. No intervention needed at this time. Will follow (11) ARDS (adult respiratory distress syndrome): Plan: Currently intubated with ventilator support. Pulmonary medicine consult appreciated Plan To be determined. Insurance denied LTAC placement on August 21. Admission and Anticipated Discharge Date Admission Date: August 09, 2023 Subjective Intubated and sedated. Hemoglobin is down to 6.4 and 2 units packed red blood cells have been ordered. No overt GI bleeding. He appears to have ARDS requiring ventilator support. Fortunately, he is off pressor support. Review of Systems 2 Review of Systems: The patient is intubated and sedated and unable to answer any questions regarding review of systems Physical Exam 2 Physical Exam: General-intubated and sedated HEENT-head atraumatic and normocephalic, ET tube and OT tube in place Neck-no lymphadenopathy or thyromegaly, trachea midline Chest-bilateral rhonchi. No wheezing Cardiac mildly tachycardic regular rate and rhythm, normal S1 and S2 Abdomen-normal bowel sounds, no hepatosplenomegaly Extremities-bilateral lower extremities are atrophic in appearance from paraplegia Neuro-cannot assess. Intubated and sedated Psych-cannot assess. Intubated and sedated Results & Data Results & Data Vital Signs (Past 12 Hours) Vital Signs Temp Pulse Resp BP Pulse Ox O2 Del Method FiO2 08/29/23 12:06 36.2 C L 75 26 H 134/57 L 94 08/29/23 12:00 60 08/29/23 11:00 36.4 C L 73 26 H 133/55 L 93 08/29/23 10:35 96 H 28 H 93 60 08/29/23 10:12 36.9 C 69 26 H 132/57 L 94 08/29/23 09:12 37 C 82 26 H 132/56 L 94 08/29/23 08:42 37 C 83 26 H 124/51 L 94 08/29/23 08:27 37.1 C 84 24 119/49 L 90 08/29/23 08:11 37.2 C 89 24 111/48 L 90 08/29/23 08:07 90 24 90 55 08/29/23 08:00 Mechanical Vent 55 08/29/23 08:00 55 08/29/23 06:00 145/82 H 08/29/23 05:57 37.5 C 82 24 96 08/29/23 05:00 37.6 C H 85 24 96 08/29/23 05:00 147/84 H 08/29/23 05:00 147/84 H 08/29/23 04:27 37.6 C H 85 24 96 08/29/23 04:00 65 08/29/23 04:00 86 08/29/23 03:58 86 24 96 65 08/29/23 03:00 37.6 C H 88 17 96 08/29/23 02:42 37.5 C 87 16 96 Laboratory Results 08/29/23 05:48 08/29/23 04:35 PG Care Time/CCT Total # of Minutes Spent Total Time Spent with Patient: Total time spent is greater than 50% in coordination of care (as documented) at patient's floor/unit and/or counseling patient: Coding Level of Care Code 10928 SUB INP/OBS CARE 3/50MIN Diagnoses Sepsis with acute hypoxic respiratory failure without septic shock, due to unspecified organism A41.9; R65.20; J96.01 Sepsis type: sepsis due to unspecified organism Sepsis acute organ dysfunction status: with acute organ dysfunction Severe sepsis acute organ dysfunction type: acute respiratory failure Acute respiratory failure type: with hypoxia Severe sepsis shock status: without septic shock Acute respiratory failure with hypoxia J96.01 Pneumonia J18.9 Metabolic encephalopathy G93.41 Right ischial pressure sore L89.319 Infection due to human metapneumovirus (hMPV) B34.8 Acute UTI N39.0 Fecal impaction K56.41 Anemia D64.9 Pneumomediastinum J98.2 ARDS (adult respiratory distress syndrome) J80 (1) Sepsis Sepsis type: sepsis due to unspecified organism Sepsis acute organ dysfunction status: with acute organ dysfunction Severe sepsis acute organ dysfunction type: acute respiratory failure Acute respiratory failure type: w ith hypoxia Severe sepsis shock status: without septic shock Qualified Code(s): A41.9 - Sepsis, unspecified organism; R65.20 - Severe sepsis without septic shock; J96.01 - Acute respiratory failure with hypoxia
[2023-08-29] MEDS: ALBUMIN 5% 250 ML IV ONE (14:33)
[2023-08-29 15:09] LABS: BUN Creatinine Ratio 28.4 (10-20); Creatinine Clr Calc Pharmacy 62.5 ml/min; Est GFR (Non-African American) 85.4 ml/min; Magnesium 2.1 mg/dl (1.7-2.4)
[2023-08-29 15:28] LABS: Hematocrit (blood only) 29.4 % (42.0-52.0); Hemoglobin 9.5 g/dl (14.0-18.0); Mean Corpuscular Hgb Conc 32.3 g/dL (32.0-36.0); Mean Corpuscular Volume 89.6 fL (80.0-100.0); Mean Platelet Volume 10.1 fL (9.4-12.4); Platelet Count 205 K/uL (130-400); RDW Coefficient of Variation 18.3 % (11.5-14.5); RDW Standard Deviation 59.1 fL (36.4-46.3); Red Blood Count 3.28 M/uL (4.70-6.10); White Blood Count 21.04 K/ul (4.8-10.8)
[2023-08-29 15:32] LABS: Basophils # (auto) 0.03 K/uL (0.00-0.20); Basophils % (auto) 0.1 %; Immature Granulocytes # (auto) 0.27 K/uL (0.01-0.20); Immature Granulocytes % (auto) 1.3 %; Lymphocytes # (auto) 0.63 K/uL (1.20-3.40); Monocytes # (auto) 0.81 K/uL (0.11-0.59); Monocytes % (auto) 3.8 %; Neutrophils % (auto) 91.8 %; Target Cells 1+
--- NOTE | 2023-08-29 15:59 | Infectious Disease Progress Nt ---
Date of Service August 29, 2023 Assessment & Plan (1) Hypoxemia: (2) Infection due to human metapneumovirus (hMPV): (3) Sacral decubitus ulcer: (4) Osteomyelitis: (5) Complicated UTI (urinary tract infection): (6) Paraplegia: Plan 63yo M with h/o T4 paraplegia, neurogenic bladder s/p indwelling Garrison and ureteral stents (last stent exchange May 2023), prior h/o UTI/pyelo, asplenia, HTN, HLD who presented on 08/08 with confusion and somnolence. He initially presented to [facility] 08/01 where he was treated with antibiotics and lactulose for elevated ammonia. Patient had improved but became more somnolent and confused so patient was signed out AMA by partner from [facility] and brought to [facility]. Per chart (urology note), he had sudden onset of pain into flank going down and radiating into groin and back in waves. In the ED, he was hypotensive to 70s which improved with IVFs. Afebrile, on 2-3L NC. Initial labs WBC 14.3, Cr 0.59. Elevated d dimer. AST/ALT in 50s. CRP 8.47. PCT 0.91. UA with >50 WBC, 3-5 epithelial cells, yeast (from garrison, not changed). UCX with E faecalis and Cinda. CXR negative. CT head neg. CTAP with large stool ball within the distal sigmoid colon and rectum, findings c/f distal large bowel obstruction 2/2 fecal impaction and stercoral colitis; bl hydroureteronephrosis unchanged; bl urothelial thickening with bl periureteral edema/fat stranding thats progressed, could be chronic irritation from ureteral stents or infectious pyelitis; findings of possible aspiration PNA in RLL and opacities in lung bases; bl sacral decubitus ulcers with mild erosion of bl ischial tuberosities and coccyx, similar to prior c/w acute on chronic OM. He was admitted with multiple issues and started on empiric abx. Had BM with tx of fecal impaction. Started on empiric abx, including fluconazole. Was seen by urology, no plan for intervention, likely stent exchange outpatient. He was seen by surgery and nonoperative chemical debridement advised for sacrum. CXR on 08/12 with mild pulmonary vascular congestion. CTA chest limited, increased bl lower lobe alveolar opacities favoring aspiration, extensive upper lobe GGO favoring infectious etiology, pulmonary edema could appear similar, small bl pleural effusions, left hydronephrosis. WBC initially downtrended, but then increased up to 16.62. ID consulted 08/13 for sacral OM. UA 08/13 after garrison exchange with >50 WBC. UCx with Cinda. Course c/b hypoxia, increased WOB, and lethargy o/n on -08/14. Patient placed on bipap with improvement. CTA chest negative for PE; moderate esophageal hiatal hernia with esophageal thickening; increased burden of GGO within the lungs most prominently in RML and RUL favoring infectious in nature, sequela of pulmonary edema possible; diffuse soft tissue edema suggesting anasarca. PCT 1.03. Lactate 2.8. D dimer 1020. RPP with Human metapneumovirus. Swallow study with aspiration noted. Planned for 14 days of Vanc/Unasyn/fluconazole which would cover UTI, sacral SSTI, and PNA (note MRSA screen positive) to complete 08/23, ID then signed off. Course then c/b worsening leukocytosis and hypoxia, requiring HFNC. CRP 23, PCT 19.2. UA with 21-50 WBC. CXR with diffuse multifocal airspace opacities, unchanged to modestly worsened, could represent pulmonary edema, multifocal PNA, and/or ARDS. Abx were resumed with vanc/cefepime/flagyl on 08/24. ID reconsulted 08/25. COVID/Flu/RSV negative. He continued to have worsening hypoxia and WOB eventually requiring intubation on 08/26. Chest CT with interval development of small-moderate pneumomediastinum; progression of diffuse airspace opacities which could be c/w ARDS, multifocal PNA or pulmonary edema could be similar; left hydronephrosis. S/p bronchoscopy 08/26. On pressors. BAL cultures with moderate oral yessi, fungal and AFB smear negative. Since no MRSA is growing, I will stop vancomycin and keep on empiric cefepime/flagyl. # Acute respiratory failure s/p intubation CT with ARDS v multifocal PNA v edema # Recent human metapneumovirus infection # Aspiration PNA s/p 10d of abx # Sacral ulcers with underlying OM s/p 14d of abx for SSTI # Bl hydroureteronephrosis with findings of possible chronic irritation of ureteral stents vs infectious pyelitis, cx E faecalis and Cinda s/p unasyn/f luconazole x 14d # Fecal impaction with stercoral colitis s/p BM - f/u BAL studies - Melanie stopped vancomycin - continue cefepime and flagyl (started 08/24) ID will continue to follow. If questions or concerns, contact Infectious Disease Call Center . Amisha Santana MD [facility], Division of Infectious Diseases IDConnect: [phone] Admission and Anticipated Discharge Date Admission Date: August 09, 2023 Subjective This patient recommendation is based on a telemedicine consult request which was completed asynchronously through chart review and information provided by the primary physician. The patient was not seen or examined today. The evaluation is consultative in nature and all patient care and treatment decisions can either be accepted or rejected by the patient's primary hospital-based treating physician using their own independent medical judgment for their patient. Time Spent Reviewing Chart: 31+ minutes Results & Data Vital Signs (Past 12 Hours) Vital Signs Temp Pulse Resp BP Pulse Ox O2 Del Method FiO2 08/29/23 15:01 94 H 25 H 93 55 08/29/23 14:05 36 C L 62 26 H 129/76 94 08/29/23 13:07 36.1 C L 72 26 H 136/60 94 08/29/23 12:37 36.1 C L 69 26 H 132/59 L 94 08/29/23 12:22 36.2 C L 73 26 H 132/68 94 08/29/23 12:06 36.2 C L 75 26 H 134/57 L 94 08/29/23 12:00 60 08/29/23 11:00 36.4 C L 73 26 H 133/55 L 93 08/29/23 10:35 96 H 28 H 93 60 08/29/23 10:12 36.9 C 69 26 H 132/57 L 94 08/29/23 09:12 37 C 82 26 H 132/56 L 94 08/29/23 08:42 37 C 83 26 H 124/51 L 94 08/29/23 08:27 37.1 C 84 24 119/49 L 90 08/29/23 08:11 37.2 C 89 24 111/48 L 90 08/29/23 08:07 90 24 90 55 08/29/23 08:00 Mechanical Vent 55 08/29/23 08:00 55 08/29/23 06:00 145/82 H 08/29/23 05:57 37.5 C 82 24 96 08/29/23 05:00 37.6 C H 85 24 96 08/29/23 05:00 147/84 H 08/29/23 05:00 147/84 H 08/29/23 04:27 37.6 C H 85 24 96 08/29/23 04:00 65 08/29/23 04:00 86 (3) Sacral decubitus ulcer Pressure injury stage: unspecified pressure injury stage Qualified Code(s): L89.159 - Pressure ulcer of sacral region, unspecified stage
[2023-08-29] MEDS ORDERED: VANCOMYCIN HCL 750 MG in SODIUM CHLORIDE 0.9% 250 ML IV SCH (23:00)
[2023-08-30 04:14] LABS: Hematocrit (blood only) 31.9 % (42.0-52.0); Hemoglobin 10.4 g/dl (14.0-18.0); Mean Corpuscular Hemoglobin 29.1 pg (25.0-34.0); Mean Corpuscular Hgb Conc 32.6 g/dL (32.0-36.0); Mean Corpuscular Volume 89.1 fL (80.0-100.0); Mean Platelet Volume 10.4 fL (9.4-12.4); Platelet Count 221 K/uL (130-400); RDW Coefficient of Variation 18.7 % (11.5-14.5); RDW Standard Deviation 60.7 fL (36.4-46.3); Red Blood Count 3.58 M/uL (4.70-6.10); White Blood Count 22.68 K/ul (4.8-10.8)
[2023-08-30 04:17] LABS: BUN Creatinine Ratio 29.9 (10-20); Calcium 8.2 mg/dl (8.6-10.3); Creatinine Clr Calc Pharmacy 61.2 ml/min; Est GFR (African American) 96.6 ml/min; Est GFR (Non-African American) 83.3 ml/min; Potassium 5.1 mmol/L (3.5-5.1)
[2023-08-30 06:07] LABS: Basophils # (auto) 0.02 K/uL (0.00-0.20); Basophils % (auto) 0.1 %; Immature Granulocytes # (auto) 0.24 K/uL (0.01-0.20); Immature Granulocytes % (auto) 1.1 %; Lymphocytes # (auto) 0.42 K/uL (1.20-3.40); Lymphocytes % (auto) 1.9 %; Monocytes # (auto) 0.76 K/uL (0.11-0.59); Monocytes % (auto) 3.4 %; Neutrophils # (auto) 21.24 K/uL (1.40-6.50); Neutrophils % (auto) 93.5 %
[2023-08-30] MEDS: CISATRACURIUM BOLUS FROM BAG IV ONE (06:19)
--- NOTE | 2023-08-30 07:04 | XRay Report ---
SINGLE VIEW CHEST CLINICAL HISTORY: Follow-up pneumomediastinum. FINDINGS: An AP, portable, semierect chest radiograph is compared to study dated 08/29/2023 and correl ated with chest CT dated 08/27/2023. The examination is degraded by portable technique and patient rot ation. An endotracheal tube, an enteric tube, and a right internal jugular central venous catheter a re unchanged in position Pneumomediastinum is again noted. The heart is enlarged. Diffuse multifocal airspace opacities have not appreciably changed as compared to yesterday. There are small pleural ef fusions. No pneumothorax is clearly seen. The skeletal structures are osteopenic. The bony thorax is grossly intact. Thoracic spinal rods are in place. Suture material projects over the upper abdomen. A n intramedullary nail is noted in the right humerus. IMPRESSION: 1. Lines and tubes as above. 2. Extensive/diffuse multifocal airspace opacities are similar to yesterday. 3. Pneumomediastinum is again noted. ACT 112: Negative or not required by law. Electronically signed by: Luther Vasquez M.D. 08/30/2023 7:02 AM
--- NOTE | 2023-08-30 09:08 | Infectious Disease Progress Nt ---
Date of Service August 30, 2023 Assessment & Plan (1) Hypoxemia: (2) Infection due to human metapneumovirus (hMPV): (3) Sacral decubitus ulcer: (4) Osteomyelitis: (5) Complicated UTI (urinary tract infection): (6) Paraplegia: Plan 63yo M with h/o T4 paraplegia, neurogenic bladder s/p indwelling Garrison and ureteral stents (last stent exchange May 2023), prior h/o UTI/pyelo, asplenia, HTN, HLD who presented on 08/08 with confusion and somnolence. He initially presented to [facility] 08/01 where he was treated with antibiotics and lactulose for elevated ammonia. Patient had improved but became more somnolent and confused so patient was signed out AMA by partner from [facility] and brought to [facility]. Per chart (urology note), he had sudden onset of pain into flank going down and radiating into groin and back in waves. In the ED, he was hypotensive to 70s which improved with IVFs. Afebrile, on 2-3L NC. Initial labs WBC 14.3, Cr 0.59. Elevated d dimer. AST/ALT in 50s. CRP 8.47. PCT 0.91. UA with >50 WBC, 3-5 epithelial cells, yeast (from garrison, not changed). UCX with E faecalis and Cinda. CXR negative. CT head neg. CTAP with large stool ball within the distal sigmoid colon and rectum, findings c/f distal large bowel obstruction 2/2 fecal impaction and stercoral colitis; bl hydroureteronephrosis unchanged; bl urothelial thickening with bl periureteral edema/fat stranding thats progressed, could be chronic irritation from ureteral stents or infectious pyelitis; findings of possible aspiration PNA in RLL and opacities in lung bases; bl sacral decubitus ulcers with mild erosion of bl ischial tuberosities and coccyx, similar to prior c/w acute on chronic OM. He was admitted with multiple issues and started on empiric abx. Had BM with tx of fecal impaction. Started on empiric abx, including fluconazole. Was seen by urology, no plan for intervention, likely stent exchange outpatient. He was seen by surgery and nonoperative chemical debridement advised for sacrum. CXR on 08/12 with mild pulmonary vascular congestion. CTA chest limited, increased bl lower lobe alveolar opacities favoring aspiration, extensive upper lobe GGO favoring infectious etiology, pulmonary edema could appear similar, small bl pleural effusions, left hydronephrosis. WBC initially downtrended, but then increased up to 16.62. ID consulted 08/13 for sacral OM. UA 08/13 after garrison exchange with >50 WBC. UCx with Cinda. Course c/b hypoxia, increased WOB, and lethargy o/n on -08/14. Patient placed on bipap with improvement. CTA chest negative for PE; moderate esophageal hiatal hernia with esophageal thickening; increased burden of GGO within the lungs most prominently in RML and RUL favoring infectious in nature, sequela of pulmonary edema possible; diffuse soft tissue edema suggesting anasarca. PCT 1.03. Lactate 2.8. D dimer 1020. RPP with Human metapneumovirus. Swallow study with aspiration noted. Planned for 14 days of Vanc/Unasyn/fluconazole which would cover UTI, sacral SSTI, and PNA (note MRSA screen positive) to complete 08/23, ID then signed off. Course then c/b worsening leukocytosis and hypoxia, requiring HFNC. CRP 23, PCT 19.2. UA with 21-50 WBC. CXR with diffuse multifocal airspace opacities, unchanged to modestly worsened, could represent pulmonary edema, multifocal PNA, and/or ARDS. Abx were resumed with vanc/cefepime/flagyl on 08/24. ID reconsulted 08/25. COVID/Flu/RSV negative. He continued to have worsening hypoxia and WOB eventually requiring intubation on 08/26. Chest CT with interval development of small-moderate pneumomediastinum; progression of diffuse airspace opacities which could be c/w ARDS, multifocal PNA or pulmonary edema could be similar; left hydronephrosis. S/p bronchoscopy 08/26. Was on pressors and now off. SCX with GNR. # Acute respiratory failure s/p intubation CT with ARDS v multifocal PNA v edema # Recent human metapneumovirus infection # Aspiration PNA s/p 10d of abx # Sacral ulcers with underlying OM s/p 14d of abx for SSTI # Bl hydroureteronephrosis with findings of possible chronic irritation of urete ral stents vs infectious pyelitis, cx E faecalis and Cinda s/p unasyn/fluconazole x 14d # Fecal impaction with stercoral colitis s/p BM - f/u sputum cx which is growing GNR - f/u BAL studies growing yeast - caspofungin added by ICU - continue cefepime and flagyl (started 08/24) ID will continue to follow. If questions or concerns, contact Infectious Disease Call Center . Amisha Santana MD [facility], Division of Infectious Diseases IDConnect: [phone] Admission and Anticipated Discharge Date Admission Date: August 09, 2023 Subjective Subsequent visit was provided via telemedicine using two-way real-time interactive telecommunication between the patient and the telemedicine provider. For the duration of the visit, the provider was performing the assessment from a different facility than the patient. This includesuse of bluetooth stethoscope forauscultationperformed by the telepresenter that the telemedicine provider can hear if described in the physical exam. [employer] contact information: Please call ID Connect Call Center . (Phone Number For Physician Use Only) After establishing a telemedicine visit, patient was: Patient was verified with two unique identifiers, Patient/authorized rep acknowledged consent and understanding and Gave permission to continue telehealth session Time Spent with Patient: Subsequent => 55 min Patient intubated. Per RN, not bringing up secretions. No loose stools. Physical Exam Physical Exam: General: intubated Lungs: diminished Heart: regular Abdomen: soft, nondistended Results & Data Vital Signs (Past 12 Hours) Vital Signs Temp Pulse Pulse Resp BP Pulse Ox O2 Del Method 08/30/23 08:19 100 H 26 H 93 08/30/23 08:12 100 H 26 H 95 Mechanical Vent 08/30/23 07:00 37.2 C 100 H 26 H 93 Mechanical Vent 08/30/23 06:12 37.2 C 97 H 26 H 93 08/30/23 05:03 37.2 C 96 H 26 H 93 08/30/23 04:03 37.2 C 95 H 26 H 93 08/30/23 04:00 08/30/23 04:00 95 H 08/30/23 03:03 37.2 C 94 H 26 H 98 08/30/23 02:25 95 H 26 H 93 08/30/23 02:00 37.2 C 95 H 23 93 08/30/23 01:00 37.2 C 96 H 26 H 93 08/30/23 00:03 37.3 C 96 H 26 H 92 08/30/23 00:00 99 H 08/30/23 00:00 08/29/23 23:39 37.3 C 98 H 26 H 92 08/29/23 23:00 154/91 H 08/29/23 22:54 37.2 C 99 H 26 H 92 08/29/23 22:20 99 H 26 H 92 08/29/23 22:00 164/94 H 08/29/23 22:00 37.2 C 100 H 26 H 91 FiO2 08/30/23 08:19 55 08/30/23 08:12 55 08/30/23 07:00 55 08/30/23 06:12 08/30/23 05:03 08/30/23 04:03 08/30/23 04:00 55 08/30/23 04:00 08/30/23 03:03 08/30/23 02:25 55 08/30/23 02:00 08/30/23 01:00 08/30/23 00:03 08/30/23 00:00 08/30/23 00:00 55 08/29/23 23:39 08/29/23 23:00 08/29/23 22:54 08/29/23 22:20 55 08/29/23 22:00 08/29/23 22:00 Laboratory Results Labs reviewed. Diagnostic Findings Imaging reviewed. (3) Sacral decubitus ulcer Pressure injury stage: unspecified pressure injury stage Qualified Code(s): L89.159 - Pressure ulcer of sacral region, unspecified stage
--- NOTE | 2023-08-30 10:07 | Critical Care Progress Note ---
Date of Service August 30, 2023 Assessment & Plan (1) ARDS (adult respiratory distress syndrome): (2) Septic shock: (3) Pneumonia: (4) Infection due to human metapneumovirus (hMPV): (5) Hypoxemia: (6) Pneumomediastinum: (7) Hypotension: (8) Acute anemia: Plan Impression: 63-year-old male with multiple medical issues and multiple infectious etiologies now with increasing oxygen requirement of unclear etiology. Patient with essentially ARDS and was intubated 08/27/2023. Neurologic: Continue Precedex, fentanyl and neuromuscular blockade to promote ventilator synchrony. Pulmonary: Patient with pneumomediastinum secondary to poor lung compliance. PEEP increased to 5 cm H2O today and tidal volumes decreased to 4 mL/kg due to elevated plateau pressures. Will check an ABG. Respiratory rate increased at 30 breaths/min. Continue with lung protective ventilation strategy. Patient a poor candidate for proning given T4 paraplegia, rods in his back, sacral decubitus ulcer and pneumomediastinum patient is status post bronchoscopy 08/27/2023 with numerous studies sent for bacterial and fungal etiologies. Yeast isolated from cultures. Caspofungin added. Continue IV methylprednisone for fibroproliferative ARDS. ID is following the patient as well and antibiotics per ID at this time. CT chest 08/27/2023 with evidence of small to moderate pneumomediastinum and progressive diffuse alveolar damage. Cardiovascular: Patient with evidence of septic shock secondary to multifocal pneumonia and sedation. Levophed has been weaned down. Patient with sinus tachycardia. EF unremarkable. Will continue to follow telemetry. Gastrointestinal: OG tube in place. Will initiate tube feeds today. Continue Protonix 40 mg twice daily. Renal: Replacing electrolytes and giving as needed albumin for low urine output. Patient with a history of bilateral hydronephrosis status post stenting. 2 species of Cinda isolates along with Enterococcus from 08/09/2023 Infectious disease: Bronc cultures negative thus far.. Awaiting culture data from bronchoscopy 08/27/2023. Human metapneumovirus is positive on admission 08/15/2023. PJP, Aspergillus antigen, Legionella PCR histo, blasto and cocci pending from BAL fluid. Yeast growing from BAL cultures. Caspofungin added. Continue cefepime and Flagyl per ID recommendations. Vancomycin discontinued. Hematologic: Patient with anemia of chronic disease. Holding aspirin and Lovenox due to acute anemia. Patient receiving 2 units of packed RBCs. Unclear etiology for patient's anemia at this time. Multiple possible sources including GI bleed and wounds. Hemoglobin improved this morning. Endocrine: Maintain euglycemia. Lines and tubes: Right IJ central line placed 08/28/2023. Left subclavian line placed 08/27/2023 removed 08/28/2023. Left radial arterial line placed 08/27/2023. VTE prophylaxis: SCDs CODE STATUS: Discussed CODE STATUS with and grave prognosis. She was going to come in and see him tomorrow. She did transition him to a DNR in the event of a cardiac arrest. Family at bedside: Currently not available at bedside. updated over the phone. Disposition: I have personally spent 38 minutes of critical care time in the direct management of this patient. This is a life/limb threatening event. This includes time spent evaluating patient, direct bedside care, chart review, placing orders, interpretation of diagnostic studies, discussion with consultants, patient, and family members, as well as other required patient management activities. This time is exclusive of all separately billable procedures, and teaching time and separate from and in addition to any other critical care service time. Thank you for allowing us to participate in the care of this patient. Admission and Anticipated Discharge Date Admission Date: August 09, 2023 Subjective Patient remains on neuromuscular blockade and Precedex/fentanyl. Continues to require high amounts of FiO2. Plateau pressures are approximately 40 with tidal volumes at 5 cc/kg. Tidal volumes decreased to 4 cc/kg with plateau pressures below 30. Otherwise no major events overnight. Urine output remains marginal. Review of Systems Review of Systems: All systems reviewed & are unremarkable except as noted in HPI & below Physical Exam Physical Exam: Constitutional: Frail appearing male who is cachectic. Currently intubated and sedated. Eyes: Pupils sluggish and minimally reactive to light. Ears nose, mouth and throat: 8.[address]. OG tube in place as well. Neck: Trachea is midline. Visual inspection is normal. Respiratory: Diffuse rhonchi bilaterally. Tachypnea. Cardiovascular: Regular rate and rhythm. No murmurs. No edema. Gastrointestinal: Normal bowel sounds, soft, nontender and nondistended. No hepatosplenomegaly noted. Musculoskeletal: No cyanosis. Patient is able to move all extremities. Strength is 5 out of 5 in the upper and lower extremities. Skin: No rashes, warm dry and intact. Large sacral decubitus ulcer. Neurologic: Unable to assess as the patient is on neuromuscular blockade. Psychiatric: Unable to assess as patient is currently intubated and sedated. Constitutional: + ill appearing (chronically ill appeari ng) Respiratory: normal respiratory effort and + cough Auscultation: + rhonchi (Occasional); no crackles and no wheezes Cardiovascular: Rate/Rhythm: regular rate and regular rhythm Heart Sounds: no murmur Extremities: + edema (trace edema legs bilat) Gastrointestinal (Abdomen): Inspection/Auscultation: normal bowel sounds; abdomen not distended Percussion/Palpation: abdomen soft and + hernia (reducible); abdomen nontender Psychiatric: Orientation: alert, oriented to person, oriented to place, oriented to time and cooperative Results & Data Results & Data Vital Signs (Past 12 Hours) Vital Signs Temp Pulse Pulse Resp BP Pulse Ox O2 Del Method 08/30/23 08:19 100 H 26 H 93 08/30/23 08:12 100 H 26 H 95 Mechanical Vent 08/30/23 07:00 37.2 C 100 H 26 H 93 Mechanical Vent 08/30/23 06:12 37.2 C 97 H 26 H 93 08/30/23 05:03 37.2 C 96 H 26 H 93 08/30/23 04:03 37.2 C 95 H 26 H 93 08/30/23 04:00 08/30/23 04:00 95 H 08/30/23 03:03 37.2 C 94 H 26 H 98 08/30/23 02:25 95 H 26 H 93 08/30/23 02:00 37.2 C 95 H 23 93 08/30/23 01:00 37.2 C 96 H 26 H 93 08/30/23 00:03 37.3 C 96 H 26 H 92 08/30/23 00:00 99 H 08/30/23 00:00 08/29/23 23:39 37.3 C 98 H 26 H 92 08/29/23 23:00 154/91 H 08/29/23 22:54 37.2 C 99 H 26 H 92 08/29/23 22:20 99 H 26 H 92 FiO2 08/30/23 08:19 55 08/30/23 08:12 55 06/28/24 07:00 55 08/30/23 06:12 08/30/23 05:03 08/30/23 04:03 08/30/23 04:00 55 08/30/23 04:00 08/30/23 03:03 08/30/23 02:25 55 08/30/23 02:00 08/30/23 01:00 08/30/23 00:03 08/30/23 00:00 08/30/23 00:00 55 08/29/23 23:39 08/29/23 23:00 08/29/23 22:54 08/29/23 22:20 55 Coding Level of Care Code 92044 CRITICAL CARE 1ST 30-74M Diagnoses ARDS (adult respiratory distress syndrome) J80 Septic shock A41.9; R65.21 Pneumonia J18.9 Infection due to human metapneumovirus (hMPV) B34.8 Hypoxemia R09.02 Pneumomediastinum J98.2 Hypotension I95.9 Hypotension type: unspecified hypotension type Acute anemia D64.9 Time Spent (min) 38 (7) Hypotension Hypotension type: unspecified hypotension type Qualified Code(s): I95.9 - Hypotension, unspecified
[2023-08-30] MEDS: CASPOFUNGIN 70 MG in SODIUM CHLORIDE 0.9% 250 ML IV ONE (10:34)
[2023-08-30 10:52] LABS: iSTAT Arterial Blood Gas HCO3 27 meg/L (19-24); iSTAT Arterial Blood Gas pCO2 87 mmHg (35-46); iSTAT Arterial Blood Gas pH 7.11 (7.35-7.45); iSTAT Arterial Blood Gas pO2 76 mmHg (80-95); iSTAT Carbon Dioxide 30 mmol/L (24-31); iSTAT Hematocrit 41 % (42-52); iSTAT Hemoglobin 13.9 g/dl (14.0-18.0); iSTAT Potassium 5.1 mmol/L (3.3-5.0); iSTAT Sodium 134 mmol/L (135-144)
--- NOTE | 2023-08-30 13:05 | Hospitalist Progress Note ---
Date of Service August 30, 2023 Assessment & Plan (1) Sepsis: Plan: This progressed to septic shock. He was on pressor support but has now been weaned off. Appreciate infectious disease consultation and recommendations. He remains on vancomycin, cefepime, and Flagyl. (2) Acute respiratory failure with hypoxia: Plan: Now on ventilator support. He previously made it clear he would not want prolonged ventilatory support or tracheostomy. His is in agreement (3) Pneumonia: Plan: Bilateral aspiration pneumonia suspected. Appreciate speech therapy assistance. He also appears to have ARDS (4) Metabolic encephalopathy: Plan: Supportive care. Multiple etiologies. Now intubated and sedated (5) Right ischial pressure sore: Plan: Chronic. With associated chronic osteomyelitis. Continue local care. Wound care consultation appreciated. He does have a WoundVac in place. General surgery consultation appreciated. They indicate no need for debridement at this time. Currently on vancomycin, cefepime, Flagyl (6) Infection due to human metapneumovirus (hMPV): Plan: supportive care. Multifocal opacities on chest x-ray could indicate a viral component (7) Acute UTI: Plan: He has a catheter associated UTI. Camp exchanged here shortly after admission. 2 species of Cinda isolated along with Enterococcus faecalis. Treated with Unasyn and Diflucan. Appreciate urology consultation and recommendations. He has bilateral ureter stents in place. Urology indicates that these will be exchanged at a later date as an outpatient (8) Fecal impaction: Plan: Present on admission. Now resolved. Is back on oxycodone from home for chronic pain (9) Anemia: Plan: Hemoglobin has dropped to 6.4 on August 28. He received 2 units packed red blood cells. He previously received 1 unit transfusion earlier this admission. Serial labs. No overt GI bleeding seen (10) Pneumomediastinum: Plan: Seen on imaging. Appears stable. No intervention needed at this time. Will follow (11) ARDS (adult respiratory distress syndrome): Plan: Currently intubated with ventilator support. Pulmonary medicine consult appreciated Plan DNR status. He is unlikely to survive this illness. Insurance denied LTAC placement on August 21. Admission and Anticipated Discharge Date Admission Date: August 09, 2023 Subjective Intubated and sedated. He is now a DNR status after discussion between ICU physician and the Review of Systems 2 Review of Systems: The patient is intubated and sedated and unable to answer any questions regarding review of systems Physical Exam 2 Physical Exam: General-intubated and sedated HEENT-head atraumatic and normocephalic, ET tube and OT tube in place Neck-no lymphadenopathy or thyromegaly, trachea midline Chest-bilateral rhonchi. No wheezing Cardiac mildly tachycardic regular rate and rhythm, normal S1 and S2 Abdomen-normal bowel sounds, no hepatosplenomegaly Extremities-bilateral lower extremities are atrophic in appearance from paraplegia Neuro-cannot assess. Intubated and sedated Psych-cannot assess. Intubated and sedated Results & Data Results & Data Vital Signs (Past 12 Hours) Vital Signs Temp Pulse Pulse Resp BP Pulse Ox O2 Del Method 08/30/23 11:06 113 H 38 H 91 08/30/23 11:03 36.7 C 109 H 36 H 91 Mechanical Vent 08/30/23 10:12 36.6 C 112 H 30 H 91 Mechanical Vent 08/30/23 10:00 199/106 H 08/30/23 09:45 37.0 C 114 H 30 H 91 Mechanical Vent 08/30/23 09:00 37.2 C 104 H 23 93 08/30/23 08:19 100 H 26 H 93 08/30/23 08:12 100 H 26 H 95 Mechanical Vent 08/30/23 08:00 Mechanical Vent 08/30/23 07:00 37.2 C 100 H 26 H 93 Mechanical Vent 08/30/23 06:12 37.2 C 97 H 26 H 93 08/30/23 05:03 37.2 C 96 H 26 H 93 08/30/23 04:03 37.2 C 95 H 26 H 93 08/30/23 04:00 08/30/23 04:00 95 H 08/30/23 03:03 37.2 C 94 H 26 H 98 08/30/23 02:25 95 H 26 H 93 08/30/23 02:00 37.2 C 95 H 23 93 FiO2 08/30/23 11:06 55 08/30/23 11:03 08/30/23 10:12 08/30/23 10:00 08/30/23 09:45 08/30/23 09:00 08/30/23 08:19 55 08/30/23 08:12 55 08/30/23 08:00 55 08/30/23 07:00 55 08/30/23 06:12 08/30/23 05:03 08/30/23 04:03 08/30/23 04:00 55 08/30/23 04:00 08/30/23 03:03 08/30/23 02:25 55 08/30/23 02:00 Laboratory Results 08/30/23 03:18 08/30/23 03:18 PG Care Time/CCT Total # of Minutes Spent Total Time Spent with Patient: Total time spent is greater than 50% in coordination of care (as documented) at patient's floor/unit and/or counseling patient: Coding Level of Care Code 05686 SUB INP/OBS CARE 235MIN Diagnoses Sepsis with acute hypoxic respiratory failure without septic shock, due to unspecified organism A41.9; R65.20; J96.01 Sepsis type: sepsis due to unspecified organism Sepsis acute organ dysfunction status: with acute organ dysfunction Severe sepsis acute organ dysfunction type: acute respiratory failure Acute respiratory failure type: with hypoxia Severe sepsis shock status: without septic shock Acute respiratory failure with hypoxia J96.01 Pneumonia J18.9 Metabolic encephalopathy G93.41 Right ischial pressure sore L89.319 Infection due to human metapneumovirus (hMPV) B34.8 Acute UTI N39.0 Fecal impaction K56.41 Anemia D64.9 Pneumomediastinum J98.2 ARDS (adult respiratory distress syndrome) J80 (1) Sepsis Sepsis type: sepsis due to unspecified organism Sepsis acute organ dysfunction status: with acute organ dysfunction Severe sepsis acute organ dysfunction type: acute respiratory failure Acute respiratory failure type: w ith hypoxia Severe sepsis shock status: without septic shock Qualified Code(s): A41.9 - Sepsis, unspecified organism; R65.20 - Severe sepsis without septic shock; J96.01 - Acute respiratory failure with hypoxia
--- NOTE | 2023-08-30 13:47 | Magnetic Resonance Report ---
MR brain wo con CLINICAL HISTORY: unresponsive TECHNIQUE: Multiplanar and multisequence MR images of the brain were obtained without intravenous con trast. Comparison: Comparison is made to MRI brain 03/20/[address] head 08/09/2023 FINDINGS: No abnormal restricted diffusion is identified. Foci of T2 and FLAIR hyperintensity are noted in the paraventricular areas consistent with chronic small vessel ischemic disease. Ex vacuo ventriculomegal y and sulcal enlargement is noted compatible with diffuse volume loss. No mass is seen. There is no m ass effect or midline shift. There is no evidence of acute intraparenchymal hemorrhage. No extra axia l fluid collections are seen. The corpus callosum, pituitary gland, and cerebellar tonsils appear darren ssly unremarkable. Flow voids of the major intracranial arterial vessels are identified. Bilateral mastoid opacification is seen. Mild sphenoid sinus fluid is seen. IMPRESSION: 1. No acute intracranial abnormalities. Expected age-related changes. 2. Bilateral mastoid effusion and mild sinus disease. ACT 112: Negative or not required by law. Electronically signed by: Colt Johnson M.D. 08/30/2023 1:45 PM
[2023-08-30 15:38] LABS: iSTAT Allen Test Pass; iSTAT Art Bld Gas pCO2 Correct 71 mmHg (35-46); iSTAT Arterial Blood Gas HCO3 26 meg/L (19-24); iSTAT Arterial Blood Gas pCO2 71 mmHg (35-46); iSTAT Arterial Blood Gas pH 7.18 (7.35-7.45); iSTAT Arterial Blood Gas pO2 77 mmHg (80-95); iSTAT Arterial Blood Gas pO2 C 77; iSTAT Carbon Dioxide 28 mmol/L (24-31); iSTAT FiO2 555 %; iSTAT Hematocrit 35 % (42-52); iSTAT Hemoglobin 11.9 g/dl (14.0-18.0); iSTAT Potassium 4.9 mmol/L (3.3-5.0); iSTAT Site R Radial; iSTAT Sodium 134 mmol/L (135-144)
[2023-08-30 23:45] LABS: iSTAT Allen Test Pass; iSTAT Art Bld Gas pCO2 Correct 64 mmHg (35-46); iSTAT Art Bld Gas pH Corrected 7.216 (7.35-7.45); iSTAT Arterial Blood Gas HCO3 26 meg/L (19-24); iSTAT Arterial Blood Gas pCO2 65 mmHg (35-46); iSTAT Arterial Blood Gas pH 7.21 (7.35-7.45); iSTAT Arterial Blood Gas pO2 66 mmHg (80-95); iSTAT Arterial Blood Gas pO2 C 64; iSTAT Carbon Dioxide 28 mmol/L (24-31); iSTAT FiO2 55 %; iSTAT Hematocrit 35 % (42-52); iSTAT Hemoglobin 11.9 g/dl (14.0-18.0); iSTAT Potassium 4.4 mmol/L (3.3-5.0); iSTAT Site Art Line; iSTAT Sodium 137 mmol/L (135-144)
[2023-08-31 04:06] LABS: iSTAT Art Bld Gas pCO2 Correct 69 mmHg (35-46); iSTAT Art Bld Gas pH Corrected 7.174 (7.35-7.45); iSTAT Arterial Blood Gas HCO3 25 meg/L (19-24); iSTAT Arterial Blood Gas pCO2 69 mmHg (35-46); iSTAT Arterial Blood Gas pH 7.18 (7.35-7.45); iSTAT Arterial Blood Gas pO2 92 mmHg (80-95); iSTAT Arterial Blood Gas pO2 C 92; iSTAT Carbon Dioxide 27 mmol/L (24-31); iSTAT FiO2 65 %; iSTAT Hematocrit 36 % (42-52); iSTAT Hemoglobin 12.2 g/dl (14.0-18.0); iSTAT Potassium 4.5 mmol/L (3.3-5.0); iSTAT Site Art Line; iSTAT Sodium 138 mmol/L (135-144)
[2023-08-31 04:15] LABS: Hematocrit (blood only) 34.2 % (42.0-52.0); Mean Corpuscular Hemoglobin 29.7 pg (25.0-34.0); Mean Corpuscular Hgb Conc 32.2 g/dL (32.0-36.0); Mean Corpuscular Volume 92.4 fL (80.0-100.0); Mean Platelet Volume 10.2 fL (9.4-12.4); Platelet Count 208 K/uL (130-400); RDW Coefficient of Variation 18.8 % (11.5-14.5); RDW Standard Deviation 62.8 fL (36.4-46.3); White Blood Count 25.22 K/ul (4.8-10.8)
[2023-08-31 04:27] LABS: BUN Creatinine Ratio 44.2 (10-20); Calcium 8.3 mg/dl (8.6-10.3); Creatinine Clr Calc Pharmacy 77.1 ml/min; Est GFR (African American) 112.7 ml/min; Est GFR (Non-African American) 97.3 ml/min; Magnesium 2.1 mg/dl (1.7-2.4); Phosphorus 2.6 mg/dl (2.5-4.9); Potassium 4.5 mmol/L (3.5-5.1)
[2023-08-31 04:51] LABS: Basophils # (auto) 0.03 K/uL (0.00-0.20); Basophils % (auto) 0.1 %; Immature Granulocytes # (auto) 0.27 K/uL (0.01-0.20); Immature Granulocytes % (auto) 1.1 %; Lymphocytes % (auto) 1.2 %; Neutrophils # (auto) 23.62 K/uL (1.40-6.50); Neutrophils % (auto) 93.6 %; Ovalocytes 1+; Polychromasia 1+; Target Cells 1+
--- NOTE | 2023-08-31 08:35 | XRay Report ---
XR chest 1V portable CLINICAL HISTORY: Respiratory failure. COMPARISON STUDY: Chest radiograph August 30, 2023. Chest CT August 27, 2023. FINDINGS: Tip of endotracheal tube is 4.5 cm above the judy. Tip of nasogastric tube is within the stomach. Right internal jugular central line remains in place. Thoracic spine fusion hardware is inci dentally noted. Small amount of pneumomediastinum is again noted. There is no pneumothorax. There are small bilateral pleural effusions. Extensive bilateral airspace opacities are similar to prior exam. IMPRESSION: 1. Satisfactory positioning of lines and tubes. 2. No significant change in extensive bilateral airspace opacities which reflect pneumonia, pulmonary edema or ARDS. 3. Small amount of pneumomediastinum, slightly decreased. ACT 112: Negative or not required by law. Electronically signed by: Omar Fisher M.D. 08/31/2023 8:33 AM
[2023-08-31] MEDS: CASPOFUNGIN 50 MG in SODIUM CHLORIDE 0.9% 250 ML IV SCH (08:43)
[2023-08-31] MEDS: levoFLOXacin/D5W 750 MG/150 ML BAG IV SCH (09:56)
[2023-08-31] MEDS ORDERED: STAT IV Infusion **Titration per Protocol STA (10:07)
[2023-08-31] MEDS ORDERED: ONDANSETRON 4 MG OD TAB SL PRN (10:07)
[2023-08-31] MEDS ORDERED: LORazepam 0.5 MG TAB PO PRN (10:07)
[2023-08-31] MEDS ORDERED: ONDANSETRON INJ 2 MG/ML 2 ML VIAL IV PRN (10:07)
--- NOTE | 2023-08-31 10:23 | Critical Care Progress Note ---
Date of Service August 31, 2023 Assessment & Plan (1) ARDS (adult respiratory distress syndrome): (2) Septic shock: (3) Pneumonia: (4) Infection due to human metapneumovirus (hMPV): (5) Hypoxemia: (6) Pneumomediastinum: (7) Hypotension: (8) Acute anemia: (9) Counseling regarding end of life decision making: Plan Impression: 63-year-old male with multiple medical issues and multiple infectious etiologies now with increasing oxygen requirement of unclear etiology. Patient with essentially ARDS and was intubated 08/27/2023. Neurologic: Will transition to morphine infusion as the patient is transitioning to comfort measures. Pulmonary: Patient with severe ARDS which is refractory to full ventilatory support. Patient will be transition to comfort measures per 's wishes. Cardiovascular: Patient has remained normotensive off of vasoactive medications. Gastrointestinal: OG tube in place. Discontinue tube feeds. Continue Protonix 40 mg twice daily. Renal: Replacing electrolytes and giving as needed albumin for low urine output. Patient with a history of bilateral hydronephrosis status post stenting. 2 species of Cinda isolates along with Enterococcus from 08/09/2023 Infectious disease: Will DC all antibiotics as patient is going to full comfort measures. Hematologic: Patient with anemia of chronic disease. Holding aspirin and Lovenox due to acute anemia. Patient receiving 2 units of packed RBCs. Unclear etiology for patient's anemia at this time. Multiple possible sources including GI bleed and wounds. Hemoglobin stable. Endocrine: Maintain euglycemia. Lines and tubes: Right IJ central line placed 08/28/2023. Left subclavian line placed 08/27/2023 removed 08/28/2023. Left radial arterial line placed 08/27/2023. VTE prophylaxis: SCDs CODE STATUS: Had a discussion with the patient's at bedside. She indicates that he would not want to be on prolonged ventilation and feels that that was the time to extubate the patient and put him on comfort measures. She understands that he will likely shortly after extubation and that we are going to try to facilitate comfort is much as possible. Family at bedside: updated at bedside. Disposition: Currently in the ICU and inpatient survives palliative extubation, will t ransition out of ICU. CRITICAL CARE TIME - I have personally spent 44 minutes of critical care time in the direct management of this patient. This is a life/limb threatening event. This includes time spent evaluating patient, direct bedside care, chart review, placing orders, interpretation of diagnostic studies, discussion with consultants, patient, and family members, as well as other required patient management activities. This time is exclusive of all separately billable procedures, and teaching time and separate from and in addition to any other critical care service time. Admission and Anticipated Discharge Date Admission Date: August 09, 2023 Subjective Patient seen and examined. Remains on neuromuscular blockade. Lung compliance is very poor and remains on full ventilatory support with high demands. Review of Systems Review of Systems: All systems reviewed & are unremarkable except as noted in HPI & below Physical Exam Physical Exam: Constitutional: Frail appearing male who is cachectic. Currently intubated and sedated. Eyes: Pupils sluggish and minimally reactive to light. Ears nose, mouth and throat: 8.[address]. OG tube in place as well. Neck: Trachea is midline. Visual inspection is normal. Respiratory: Diffuse rhonchi bilaterally. Tachypnea. Cardiovascular: Regular rate and rhythm. No murmurs. No edema. Gastrointestinal: Normal bowel sounds, soft, nontender and nondistended. No hepatosplenomegaly noted. Musculoskeletal: No cyanosis. Patient is able to move all extremities. Strength is 5 out of 5 in the upper and lower extremities. Skin: No rashes, warm dry and intact. Large sacral decubitus ulcer. Neurologic: Unable to assess as the patient is on neuromuscular blockade. Psychiatric: Unable to assess as patient is currently intubated and sedated. Respiratory: normal respiratory effort and + cough Cardiovascular: Rate/Rhythm: regular rate and regular rhythm Heart Sounds: no murmur Extremities: + edema (trace edema legs bilat) Gastrointestinal (Abdomen): Inspection/Auscultation: normal bowel sounds; abdomen not distended Percussion/Palpation: abdomen soft and + hernia (reducible); abdomen nontender Psychiatric: Orientation: alert, oriented to person, oriented to place, oriented to time and cooperative Results & Data Results & Data Vital Signs (Past 12 Hours) Vital Signs Temp Pulse Resp Pulse Ox FiO2 08/31/23 08:00 65 08/31/23 08:00 97 H 08/31/23 07:30 97 H 35 H 95 65 08/31/23 06:21 36.9 C 100 H 35 H 96 08/31/23 05:15 36.9 C 102 H 35 H 95 08/31/23 04:02 37.1 C 107 H 35 H 95 08/31/23 04:00 65 08/31/23 03:49 107 H 35 H 96 65 08/31/23 03:00 37.2 C 110 H 35 H 95 08/31/23 02:03 37.3 C 112 H 35 H 94 08/31/23 01:21 37.3 C 116 H 35 H 94 08/31/23 00:00 116 H 08/31/23 00:00 65 08/31/23 00:00 37.0 C 114 H 35 H 94 08/30/23 23:27 111 H 35 H 94 65 08/30/23 23:03 36.5 C 109 H 35 H 91 Coding Level of Care Code 25690 CRITICAL CARE 1ST 30-74M Diagnoses ARDS (adult respiratory distress syndrome) J80 Septic shock A41.9; R65.21 Pneumonia J18.9 Infection due to human metapneumovirus (hMPV) B34.8 Hypoxemia R09.02 Pneumomediastinum J98.2 Hypotension I95.9 Hypotension type: unspecified hypotension type Acute anemia D64.9 Counseling regarding end of life decision making Z71.89 (7) Hypotension Hypotension type: unspecified hypotension type Qualified Code(s): I95.9 - Hyp otension, unspecified
[2023-08-31] MEDS: LORazepam 0.5 MG in SYRINGE 0.25 ML IV SCH (10:30)
[2023-08-31] MEDS: MoRPHine SULF/NSS 100 MG/100 ML BAG IV SCH (10:52)
[2023-08-31] MEDS: SULFA/TRIMETH 80/16MG/ML 320 MG in DEXTROSE 5% 500 ML IV SCH (11:05)
[2023-08-31] MEDS: ADENOSINE IV SOLN 3 MG/ML 2 ML VIAL IV ONE (11:49)
--- NOTE | 2023-08-31 12:50 | Hospitalist Progress Note ---
Date of Service August 31, 2023 Assessment & Plan (1) Sepsis: Plan: This progressed to septic shock. He was on pressor support but has now been weaned off. Appreciate infectious disease consultation and recommendations. His status is now DNR and compassionate extubation will take place later today, August 30 (2) Acute respiratory failure with hypoxia: Plan: Now on ventilator support. He previously made it clear he would not want prolonged ventilatory support or tracheostomy. His is in agreement . Compassionate extubation later today, August 30 (3) Pneumonia: Plan: Bilateral aspiration pneumonia suspected. Appreciate speech therapy assistance. He also appears to have ARDS (4) Metabolic encephalopathy: Plan: Supportive care. Multiple etiologies. Now intubated and sedated (5) Right ischial pressure sore: Plan: Chronic. With associated chronic osteomyelitis. Continue local care. Wound care consultation appreciated. He does have a WoundVac in place. General surgery consultation appreciated. They indicate no need for debridement at this time. DNR now. No further treatment. Compassionate extubation later today, August 30 (6) Infection due to human metapneumovirus (hMPV): Plan: supportive care. Multifocal opacities on chest x-ray could indicate a viral component (7) Acute UTI: Plan: He has a catheter associated UTI. Camp exchanged here shortly after admission. 2 species of Cinda isolated along with Enterococcus faecalis. Treated with Unasyn and Diflucan. Appreciate urology consultation and recommendations. He has bilateral ureter stents in place. (8) Fecal impaction: Plan: Present on admission. Now resolved. (9) Anemia: Plan: Hemoglobin has dropped to 6.4 on August 28. He received 2 units packed red blood cells. He previously received 1 unit transfusion earlier this admission. No overt GI bleeding seen (10) Pneumomediastinum: Plan: Seen on imaging. Appears stable. No intervention needed at this time. Will follow (11) ARDS (adult respiratory distress syndrome): Plan: Currently intubated with ventilator support. Pulmonary medicine consult appreciated Plan DNR status. Compassionate extubation later today, August 30. [employer] printing supplies sales representative will see the patient shortly Admission and Anticipated Discharge Date Admission Date: August 09, 2023 Subjective Intubated and sedated. is at the bedside. Compassionate extubation will take place after family has a chance to talk to [employer] sales representative. Review of Systems 2 Review of Systems: The patient is intubated and sedated and unable to answer any questions regarding review of systems Physical Exam 2 Physical Exam: General-intubated and sedated HEENT-head atraumatic and normocephalic, ET tube and OT tube in place Neck-no lymphadenopathy or thyromegaly, trachea midline Chest-bilateral rhonchi. No wheezing Cardiac mildly tachycardic regular rate and rhythm, normal S1 and S2 Abdomen-normal bowel sounds, no hepatosplenomegaly Extremities-bilateral lower extremities are atrophic in appearance from paraplegia Neuro-cannot assess. Intubated and sedated Psych-cannot assess. Intubated and sedated Results & Data Results & Data Vital Signs (Past 12 Hours) Vital Signs Temp Pulse Resp Pulse Ox FiO2 08/31/23 10:40 89 35 H 90 65 08/31/23 08:00 65 08/31/23 08:00 97 H 08/31/23 07:30 97 H 35 H 95 65 08/31/23 06:21 36.9 C 100 H 35 H 96 08/31/23 05:15 36.9 C 102 H 35 H 95 08/31/23 04:02 37.1 C 107 H 35 H 95 08/31/23 04:00 65 08/31/23 03:49 107 H 35 H 96 65 08/31/23 03:00 37.2 C 110 H 35 H 95 08/31/23 02:03 37.3 C 112 H 35 H 94 08/31/23 01:21 37.3 C 116 H 35 H 94 Laboratory Results 08/31/23 03:59 08/31/23 03:59 PG Care Time/CCT Total # of Minutes Spent Total Time Spent with Patient: Total time spent is greater than 50% in coordination of care (as documented) at patient's floor/unit and/or counseling patient: Coding Level of Care Code 57981 SUB INP/OBS CARE 235MIN Diagnoses Sepsis with acute hypoxic respiratory failure without septic shock, due to unspecified organism A41.9; R65.20; J96.01 Sepsis type: sepsis due to unspecified organism Sepsis acute organ dysfunction status: with acute organ dysfunction Severe sepsis acute organ dysfunction type: acute respiratory failure Acute respiratory failure type: with hypoxia Severe sepsis shock status: without septic shock Acute respiratory failure with hypoxia J96.01 Pneumonia J18.9 Metabolic encephalopathy G93.41 Right ischial pressure sore L89.319 Infection due to human metapneumovirus (hMPV) B34.8 Acute UTI N39.0 Fecal impaction K56.41 Anemia D64.9 Pneumomediastinum J98.2 ARDS (adult respiratory distress syndrome) J80 (1) Sepsis Sepsis type: sepsis due to unspecified organism Sepsis acute organ dysfunction status: with acute organ dysfunction Severe sepsis acute organ dysfunction type: acute respiratory failure Acute respiratory failure type: w ith hypoxia Severe sepsis shock status: without septic shock Qualified Code(s): A41.9 - Sepsis, unspecified organism; R65.20 - Severe sepsis without septic shock; J96.01 - Acute respiratory failure with hypoxia
[2023-08-31 14:22] LABS: Legionella DNA, Source BAL; Legionella Species DNA NOT DETECTED; Legionella pneumophila DNA NOT DETECTED
[2023-08-31] MEDS: MoRPHine BOLUS from BAG IV PRN (16:53)
[2023-08-31] MEDS: LORazepam 0.5 MG in SYRINGE 0.25 ML IV PRN (17:36)
--- NOTE | 2023-08-31 18:30 | Electrocardiogram Report ---
Test Reason : Blood Pressure : / mmHG Vent. Rate : 091 BPM Atrial Rate : 091 BPM P-R Int : 172 ms QRS Dur : 142 ms QT Int : 368 ms P-R-T Axes : 051 006 035 degrees QTc Int : 452 ms Normal sinus rhythm Possible Left atrial enlargement Right bundle branch block Abnormal ECG When compared with ECG of 15-AUG-2023 01:40, QRS duration has increased Nonspecific T wave abnormality now evident in Lateral leads Confirmed by Phillip Gibbons ([id number]) on 08/31/2023 6:30:15 PM Referred By: REFERRED SELF Confirmed By:Phillip Gibbons
--- NOTE | 2023-09-01 14:52 | Hospitalist Progress Note ---
Date of Service September 01, 2023 Assessment & Plan (1) Sepsis: Plan: Present on admission which progressed to septic shock. He was on pressor support but has now been weaned off. Appreciate infectious disease consultation and recommendations. His status is now comfort measures only. Compassionate extubation took place on August 30. (2) Acute respiratory failure with hypoxia: Plan: Compassionately extubated yesterday, August 30. Comfort measures only. (3) Pneumonia: Plan: Bilateral aspiration pneumonia suspected on admission. He also appears to have ARDS. Now comfort measures only (4) Metabolic encephalopathy: Plan: Present on admission. Now comfort measures only (5) Right ischial pressure sore: Plan: Chronic. With associated chronic osteomyelitis. Treated aggressively while hospitalized but now no further treatment. Comfort measures only (6) Infection due to human metapneumovirus (hMPV): Plan: No further treatment. BUSINESS CONTINUITY ANALYST (7) Acute UTI: Plan: He had a catheter associated UTI on admission. No further treatment at this time. BUSINESS CONTINUITY ANALYST (8) Fecal impaction: Plan: Present on admission. Treated and resolved (9) Anemia: Plan: Transfusion previously this admission. No further labs at this time. BUSINESS CONTINUITY ANALYST (10) Pneumomediastinum: Plan: Seen on imaging. No intervention needed required. No further x-rays. BUSINESS CONTINUITY ANALYST (11) ARDS (adult respiratory distress syndrome): Plan: Compassionately extubated on August 30. Now BUSINESS CONTINUITY ANALYST. Pulmonary medicine consult appreciated Plan BUSINESS CONTINUITY ANALYST /DNR status. He is on a morphine infusion. Unresponsive with agonal respirations. He will soon Admission and Anticipated Discharge Date Admission Date: August 09, 2023 Subjective The patient was compassionately extubated yesterday, August 30. He is now comfort measures only on a morphine drip. He is currently unresponsive. Review of Systems 2 Review of Systems: The patient is unresponsive at this time Physical Exam 2 Physical Exam: General-unresponsive HEENT-head atraumatic and normocephalic Neck-no lymphadenopathy or thyromegaly, trachea midline Chest-bilateral rhonchi. No wheezing Cardiac mildly tachycardic regular rate and rhythm, normal S1 and S2 Abdomen-normal bowel sounds, no hepatosplenomegaly Extremities-bilateral lower extremities are atrophic in appearance from paraplegia Neuro-cannot assess. Unresponsive Psych-cannot assess. Unresponsive Results & Data Results & Data Vital Signs (Past 12 Hours) Vital Signs O2 Del Method O2 Flow Rate 09/01/23 08:38 Nasal Cannula 3.5 Laboratory Results 08/31/23 03:59 08/31/23 03:59 PG Care Time/CCT Total # of Minutes Spent Total Time Spent with Patient: Total time spent is greater than 50% in coordination of care (as documented) at patient's floor/unit and/or counseling patient: Coding Level of Care Code 68972 SUB INP/OBS CARE 3/50MIN Diagnoses Sepsis with acute hypoxic respiratory failure without septic shock, due to unspecified organism A41.9; R65.20; J96.01 Sepsis type: sepsis due to unspecified organism Sepsis acute organ dysfunction status: with acute organ dysfunction Severe sepsis acute organ dysfunction type: acute respiratory failure Acute respiratory failure type: with hypoxia Severe sepsis shock status: without septic shock Acute respiratory failure with hypoxia J96.01 Pneumonia J18.9 Metabolic encephalopathy G93.41 Right ischial pressure sore L89.319 Infection due to human metapneumovirus (hMPV) B34.8 Acute UTI N39.0 Fecal impaction K56.41 Anemia D64.9 Pneumomediastinum J98.2 ARDS (adult respiratory distress syndrome) J80 (1) Sepsis Sepsis type: sepsis due to unspecified organism Sepsis acute organ dysfunction status: with acute organ dysfunction Severe sepsis acute organ dysfunction type: acute respiratory failure Acute respiratory failure type: w ith hypoxia Severe sepsis shock status: without septic shock Qualified Code(s): A41.9 - Sepsis, unspecified organism; R65.20 - Severe sepsis without septic shock; J96.01 - Acute respiratory failure with hypoxia
[2023-09-01] MEDS: GLYCOPYRROLATE 0.2 MG/ML VIAL IV PRN (17:42)
--- NOTE | 2023-09-01 22:45 | Death Pronouncement Note ---
Date of Service September 01, 2023 Pronouncement Note Admission Date Admission Date: August 09, 2023 Contributing Factors (1) Sepsis: (2) Acute respiratory failure with hypoxia: (3) Pneumonia: (4) Metabolic encephalopathy: (5) Right ischial pressure sore: (6) Infection due to human metapneumovirus (hMPV): (7) Acute UTI: (8) Fecal impaction: (9) Anemia: (10) Pneumomediastinum: (11) ARDS (adult respiratory distress syndrome): Summary Additional details: I was called to pronounce the of Ulysses Guardado :1960 by nursing on 09/01/2023 ~22:30. Pt's , Anny, in the room. Offered my condolences and explained the pronouncement examination. I gave her the option to stay in the room or step out and she chose to stay at bedside. Upon entering the room, the patient was found to be in a terminal state. Patient was unresponsive to verbal and tactile stimuli. Patient unresponsive to pupillary reflexes. On cardiopulmonary exam, no carotid, radial, or pedal pulses found and pt without spontaneous heart tones or respirations. Time of was pronounced by me on 09/01/2023 at 22:37. Attending physician was notified. Next of kin (pt's , Anny) at bedside. I offered to call other family members or friends and she declined. Additional Data Attending physician: Samuel Fong MD Resident Activity Tracking Resident Involvement: Resident Care Provided Care Provided: Adult Hospital Medicine
== END 2023-09-01 23:17 | disposition expired | DRG 871 ==
LOC: ED 16:39 → SUATTDRO 19:43 → EDINP 19:43 → 2N 08-10 20:09 → 1E 08-15 22:51 → 2S 08-19 02:01 → 1E 08-27 11:58 → 3E 08-31 21:18